=== PATIENT | female | born 1970 | race Caucasian/White ===

== ENCOUNTER 2017-08-10 11:00 | Outpatient (RCR) | payer MEDICARE, SELFPAY ==
--- NOTE | 2017-08-10 15:56 | COCO.VHC ---
Consult Notes: Cecilia came in to talk about health benefits. She has Medicare and she has VPharm 2, but during a recent Medicaid renewal her Cale lost his Medicaid 07/04/17. Cecilia gets $888.00 is social security disability and her Cale works at [employer] averaging about $425.00 gross income per week. She said Cale is not eligible for health insurance at [employer] and he is likely going to lose his job when the [facility] restaurant closes in October. I called [employer] and spoke with Cale. He confirmed that Cale is eligible for APTC of $444.22, VPA of $27.93 with a cost share reduction level 1, making him eligible for the [place] [address] plans. SR # [id number]. Cecilia took the information with her to review with her and she will follow up with me once he chooses a plan. We also discussed outstanding bills for Cecilia and I gave her patient assistance applications for several of her healthcare providers. She will follow up with me about that as well.
--- NOTE | 2017-08-10 16:16 | PDOC.VHC_ITS ---
Consult Notes: Cecilia came in to talk about health benefits. She has Medicare and she has VPharm 2, but during a recent Medicaid renewal her Cale lost his Medicaid 07/04/17. Cecilia gets $888.00 is social security disability and her Cale works at [employer] averaging about $425.00 gross income per week. 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 I called [employer] and spoke with Cale. He confirmed that Cale is eligible for APTC of $444.22, VPA of $27.93 with a cost share reduction level 1 , making him eligible for the [place] [address] plans. SR # [id number]. Cecilia took the information with her to review with her and she will follow up with me once he chooses a plan. We also discussed outstanding bills for Cecilia and I gave her patient assistance applications for several of her healthcare providers. She will follow up with me about that as well.
--- NOTE | 2017-08-10 16:20 | COCO.VHC ---
Follow up/Problem - Follow up/Problem Issue Follow Up/Problem: Follow Up (Consult follow up from 07/27/17) - Notes SR #:: [id number] [employer] [employer] REP Name:: Ada Notes:: Cecilia came in to enroll her in the [employer] [place] [employer] 94 plan. Please see Cale Dumont's chart for details.
== END 2017-12-04 11:00 ==
LOC: COCO 11:00
PROVIDERS: PCP Nurse Practitioner Family; Visit Provider Nurse Practitioner Family
DX: R69 Illness, unspecified (principal)

== ENCOUNTER → 2017-11-04 00:10 | Outpatient (CLI) | payer MEDICARE, SELFPAY ==
--- NOTE | 2017-11-04 14:23 | DI.REPORT_ITS ---
SYMPTOMS/DIAGNOSIS: F/U ABNORMAL MAMMO, INDETERMINATE BILATERAL NEW BREAST MASSES BILATERAL BREAST ULTRASOUND AND BILATERAL ADDITIONAL VIEWS: Additional images are interpreted according to the usual protocol including tomosynthesis and 2D imaging. ADDITIONAL VIEWS OF THE RIGHT BREAST:AND RIGHT BREAST ULTRASOUND: Additional views of the right breast again show a well-circumscribed nodule in the retroareolar region of the right breast. No associated microcalcifications are seen. A right breast ultrasound was performed. There are several well- circumscribed anechoic lesions seen within the right breast. There is a 1.1 cm lesion seen at the 12 o'clock position of the right breast, which appears to correspond to the findings seen on the mammogram. There is a well- circumscribed round, hypoechoic nodule at the 11 o'clock position of the right breast 4 cm from the nipple without internal blood flow, posterior acoustic enhancement or shadowing. It is most suggestive of a benign lesion. This may represent a fibroadenoma. No suspicious cystic or solid masses are seen. IMPRESSION: No definite evidence for malignancy. Yearly mammography is recommended. Category 2. MQSA ASSESSMENT OF FINDINGS: Negative with benign findings. Category 2. Patient will receive a letter notifying them of these results. ADDITIONAL VIEWS OF THE LEFT BREAST AND LEFT BREAST ULTRASOUND: Additional views of the left breast again show well-circumscribed nodules in the upper outer quadrant. A left breast ultrasound was performed. There are several well-circumscribed anechoic lesions in the upper outer quadrant of the left breast. No posterior acoustic shadowing is seen. No internal blood flow is present. The largest lesion is at the 12 o'clock position 1 cm from the nipple and measures 0.8 cm. These appear to correspond to the findings seen mammographically. IMPRESSION: No definite evidence for malignancy. A six-month follow-up left mammogram and left breast ultrasound are requested for reevaluation. Category 3. Breast density B. MQSA ASSESSMENT OF FINDINGS: Probably benign. Six month follow-up recommended. Category 3. Patient will receive a letter notifying them of these results. BI-RADS category B. There are scattered areas of fibroglandular density. The findings were discussed with the patient on the date of the examination.
== END ==
PROVIDERS: PCP Nurse Practitioner; Visit Provider Nurse Practitioner Family
DX: Z12.31 Encounter for screening mammogram for malignant neoplasm of breast (principal); R92.8 Other abnormal and inconclusive findings on diagnostic imaging of breast; N60.11 Diffuse cystic mastopathy of right breast; N60.12 Diffuse cystic mastopathy of left breast
CPT/HCPCS: 76642 ×2; 77063; 77067

== ENCOUNTER 2017-11-06 11:28 | Outpatient (RCR) | payer MEDICARE, SELFPAY | END 2017-12-04 23:59 | disposition home or self-care (01) | LOC: CR 11:28 | PROVIDERS: PCP Nurse Practitioner; Visit Provider Family Medicine | DX: Z95.2 Presence of prosthetic heart valve (principal); Z51.89 Encounter for other specified aftercare | CPT/HCPCS: S9472 ==

== ENCOUNTER 2017-12-02 08:27 | Outpatient (CLI) | payer MEDICARE, SELFPAY ==
[2017-12-02 08:52] LABS: Prothrombin Time 38.1 sec (9.3-10.8)
[2017-12-02 09:08] LABS: INR 4.1 (1.0-3.5)
== END 2017-12-02 08:28 ==
PROVIDERS: PCP Nurse Practitioner; Visit Provider Nurse Practitioner
DX: Z79.01 Long term (current) use of anticoagulants (principal); I48.92 Unspecified atrial flutter
CPT/HCPCS: 36415; 85610

== ENCOUNTER 2017-12-17 08:24 | Outpatient (CLI) | payer MEDICARE, SELFPAY ==
[2017-12-17 10:02] LABS: INR 1.9 (1.0-3.5); Prothrombin Time 18.3 sec (9.3-10.8)
== END 2017-12-17 08:44 ==
PROVIDERS: PCP Nurse Practitioner; Visit Provider Nurse Practitioner
DX: I48.92 Unspecified atrial flutter (principal); Z79.01 Long term (current) use of anticoagulants
CPT/HCPCS: 36415; 85610

== ENCOUNTER → 2017-12-21 12:55 | Outpatient (BNVA) | payer MEDICARE, SELFPAY | PROVIDERS: PCP Nurse Practitioner; Visit Provider Surgery | DX: K21.9 Gastro-esophageal reflux disease without esophagitis (principal) | CPT/HCPCS: 99203 ==

== ENCOUNTER 2017-12-22 08:16 | Outpatient (CLI) | payer MEDICARE, SELFPAY ==
[2017-12-22 08:51] LABS: INR 2.3 (1.0-3.5); Prothrombin Time 21.4 sec (9.3-10.8)
== END 2017-12-22 08:36 ==
PROVIDERS: PCP Nurse Practitioner; Visit Provider Nurse Practitioner
DX: I48.91 Unspecified atrial fibrillation (principal); Z79.01 Long term (current) use of anticoagulants
CPT/HCPCS: 36415; 85610

== ENCOUNTER 2017-12-29 07:23 | Day surgery (SDC) | payer MEDICARE, SELFPAY ==
[2017-12-29 07:46] VITALS: BP 104/64; PULSE 89; RESP 16; TEMP 35.8; O2SAT 96
[2017-12-29] MEDS: Lactated Ringers 1,000 ML 30 ML IV (08:15)
[2017-12-29 09:27] LABS: INR 1.4 (1.0-3.5)
[2017-12-29 09:33] LABS: Prothrombin Time 13.8 sec (9.3-10.8)
--- NOTE | 2017-12-29 09:35 | W.PM.DSUDISC ---
Discharge Plan Disposition Patient Disposition: HOME Condition: Good Discharge Details Reason For Visit: Upper Endoscopy Attending Provider: Bhanu Fofana Primary Care Provider: Mckenna Genao Home Meds and New Rx's Prescriptions: Continue enoxaparin [Lovenox] 120 mg/0.8 mL syringe 120 mg SC DAILY Qty: 5 RF: 3 levothyroxine 25 MCG tablet 25 mcg PO DAILY Qty: 60 RF: 1 warfarin [Coumadin] 1 MG tablet 5 - 7.5 mg PO DAILY RF: 0 cetirizine 10 MG tablet 10 mg PO PRN PRNRF: 0 cyproheptadine 4 MG tablet 1 - 2 tab PO HS PRNRF: 0 hydroxychloroquine 200 MG tablet 200 mg PO BID RF: 0 wgnadbqgwnly-Ly-ohok-minerals [Multiple Vitamin, Womens] Tablet 1 ea PO DAILY RF: 0 lisinopril 10 MG tablet 10 mg PO DAILY RF: 0 omeprazole 40 MG capsule,delayed release(DR/EC) 40 mg PO BID RF: 0 Discharge Instructions Instructions: Upper Endoscopy (DC) Additional Instructions: Start coumadin tonight Activity:: Activity as Tolerated Diet:: As Tolerated Discharge Orders Discharge Orders: Discharge Order (Routine); Ordered 12/29/17 Ordered By: Bhanu Fofana DS: Diagnosis Discharge Diagnosis (1) GERD (gastroesophageal reflux disease): Status: Acute
--- NOTE | 2017-12-29 09:37 | W.PM.OP ---
Date of service: 12/29/17 Time of Service: 09:37 Operative Note DATE OF PROCEDURE: 12/29/17 PRE-OP DIAGNOSIS: Gastroesophageal Reflux disease PROCEDURE: EGD with Biopsy SURGEON: Bhanu Fofana ANESTHESIA: MAC (Douglas Delarosa CRNA; ASA 2, Mallampati II) ESTIMATED BLOOD LOSS: 1 PATHOLOGY: other (Gastric Antral Biopsy) COMPLICATIONS: None Patient was transported to: same day Patient's condition: stable Implants: Laboratory: Prothrombin time 13.8s INR 1.4 Indications: 47-year-old woman referred for reflux symptoms that she started after her aortic valve replacement surgery. She had no symptoms prior to surgery. She has intermittent episodes of heartburn with occasional vomiting mostly bile. This seems unrelated to food intake. It is worse with laying flat. She has been seen by her letterpress setter who does not believe this is cardiac in nature. Recommended that she have an upper endoscopy to assess for gastritis, occult malignancy, esophagitis, PUD, etc. The procedure was reviewed with her, and the risks discussed. All her questions were answered to her satisfaction Findings: On examining the upper gastrointestinal tract from the oropharynx to the third portion of duodenum, there was inflammation noted at the gastric antrum, and question of paraesophageal versus hiatal hernia. No other abnormalities are noted. Procedure Description: Patient brought to the procedure room. An appropriate timeout was taken reviewing the patient's identification allergies medications procedure. For telemetry, end-tidal CO2, O2 saturation, and blood pressure were applied. A bite block was placed and sedation was titrated for by the GEOTECHNICAL ENGINEER, with the patient in the left lateral decubitus position. An Olympus variable stiffness endoscope was advanced from the oropharynx to the third portion of the duodenum without difficulty. Scope was then withdrawn in circumferential manner back to the oropharynx. In doing so, the duodenum appeared grossly normal; scope was drawn into the gastric antrum where the tissue appeared inflamed but there is no angelito ulcerations. Multiple biopsies were taken to confirm gross pathology findings. The scope was then retroflexed in the stomach: the lesser and greater curvatures, anterior, posterior surfaces, and fundus appeared grossly normal on the mucosal surfaces. Though in examining the shape of the upper stomach it appeared to be indented, suggesting a large hiatal hernia or paraesophageal hernia. The scope was then withdrawn to the GE junction which are measured at 38 cm. Z line was at 38 cm and regular. I withdrew the scope through the remainder of the esophagus all of which appeared normal. The scope was then withdrawn terminating the upper endoscopy there are no complications during the case the patient tolerated very well. Plan: We will await pathology before making further recommendations, in the interim we will start Carafate. Will obtain multiple views chest and abdominal films to evaluate for hiatal versus paraesophageal hernia.
--- NOTE | 2017-12-29 09:48 | STOM_PTH ---
PATIENT: Cecilia Dumont LOC: [facility] U#:[id number] AGE/SX: 47/F ROOM: RE12/29/[address]: Bhanu Fofana DO : 1970 BED: DIS: 12/29/2017 SPEC #: [id number] RECD: 12/29/17 12:57 STATUS: ANAND RE #: [id number] CORBY: 12/29/17 09:[address]: Bhanu Fofana DEPT: Surgical Specimen RECD BY: Yusra Aguilera ENTERED: 12/29/17 12:58 SP TYPE: STOMACH OTHR DR: Mckenna Genao Tissues: 1 - STOMACH BIOPSY Procedures: GROSS AND MICRO LEVEL 4 Comments: [id number]
[2017-12-29 10:45] VITALS: BP 106/71; PULSE 64; RESP 16; TEMP 36; O2SAT 97
--- NOTE | 2017-12-29 10:45 | DI.RAD_ITS ---
SYMPTOM/DIAGNOSIS: EPIGASTRIC PAIN FRONTAL AND LATERAL CHEST: Comparison is made with 09/05/17. Heart size and pulmonary vasculature are within normal limits. There is again seen an aortic valve prosthesis. The lungs are clear and well expanded. No effusions or pneumothoraces are identified. The bones are intact. IMPRESSION: No acute pulmonary process. FLAT AND UPRIGHT ABDOMEN: The visualized lung bases are clear. There is a large amount of stool seen throughout the colon consistent with constipation. No bowel obstruction, organomegaly or pneumoperitoneum is seen. Mild degenerative changes are seen in the spine. IMPRESSION: Findings of large amount of retained stool suggesting constipation.
== END 2017-12-29 11:08 | disposition home or self-care (01) ==
PROVIDERS: PCP Nurse Practitioner; Visit Provider Surgery
PROC: 0DJ68ZZ Inspection of Stomach, Via Natural or Artificial Opening Endoscopic (ICD-10-PCS; CPT 43235; principal; 2017-12-29 08:45)
DX: K21.9 Gastro-esophageal reflux disease without esophagitis (principal); K31.89 Other diseases of stomach and duodenum; R93.3 Abnormal findings on diagnostic imaging of other parts of digestive tract; Z98.890 Other specified postprocedural states
CPT/HCPCS: 43239; 36415; 88305; 71046; 74019; 85610

== ENCOUNTER → 2017-12-29 07:32 | Outpatient (BNVA) | payer MEDICARE, SELFPAY | PROVIDERS: PCP Nurse Practitioner; Referring Provider Nurse Practitioner; Visit Provider Surgery | DX: R69 Illness, unspecified (principal) ==

== ENCOUNTER 2017-12-31 10:16 | Outpatient (CLI) | payer MEDICARE, SELFPAY ==
[2017-12-31 10:44] LABS: INR 1.4 (1.0-3.5); Prothrombin Time 13.1 sec (9.3-10.8)
== END 2017-12-31 10:36 ==
PROVIDERS: PCP Nurse Practitioner; Visit Provider Nurse Practitioner
DX: I48.92 Unspecified atrial flutter (principal); Z79.01 Long term (current) use of anticoagulants
CPT/HCPCS: 36415; 85610

== ENCOUNTER 2018-01-04 11:02 | Outpatient (CLI) | payer MEDICARE, SELFPAY ==
[2018-01-04 11:34] LABS: INR 1.9 (1.0-3.5); Prothrombin Time 18.3 sec (9.3-10.8)
== END 2018-01-04 11:22 ==
PROVIDERS: PCP Nurse Practitioner; Visit Provider Nurse Practitioner
DX: I48.92 Unspecified atrial flutter (principal); Z79.01 Long term (current) use of anticoagulants
CPT/HCPCS: 36415; 85610

== ENCOUNTER 2018-01-08 08:26 | Outpatient (CLI) | payer MEDICARE, SELFPAY ==
[2018-01-08 09:12] LABS: INR 2.1 (1.0-3.5); Prothrombin Time 20.1 sec (9.3-10.8)
== END 2018-01-08 08:46 ==
PROVIDERS: PCP Nurse Practitioner; Visit Provider Nurse Practitioner
DX: I48.91 Unspecified atrial fibrillation (principal); Z79.01 Long term (current) use of anticoagulants
CPT/HCPCS: 36415; 85610

== ENCOUNTER 2018-01-11 12:47 | Outpatient (CLI) | payer MEDICARE, SELFPAY ==
[2018-01-11 13:27] LABS: INR 2.5 (1.0-3.5); Prothrombin Time 23.9 sec (9.3-10.8)
== END 2018-01-11 13:07 ==
PROVIDERS: PCP Nurse Practitioner; Visit Provider Nurse Practitioner
DX: I48.92 Unspecified atrial flutter (principal); Z79.01 Long term (current) use of anticoagulants
CPT/HCPCS: 36415; 85610

== ENCOUNTER 2018-01-21 01:39 | Outpatient (CLI) | payer MEDICARE, SELFPAY ==
[2018-01-21] MEDS: Barium Sulfate 60% W/V 355 ML BTL PO (10:01)
--- NOTE | 2018-01-21 10:03 | DI.RAD_ITS ---
SYMPTOM/DIAGNOSIS: BREAKTHROUGH GERD, K21.9, ? HIATAL HERNIA BARIUM SWALLOW AND UPPER GI: Fluoroscopy Time: 48 seconds The patient swallowed barium without difficulty. There is no evident abnormality involving the della or hypopharynx or esophagus. The patient is status post median sternotomy. The upper GI series reveals a normal stomach. The duodenal bulb and loop and proximal small bowel appear unremarkable. SUMMARY: Normal barium swallow and upper GI series.
== END 2018-01-21 01:59 ==
PROVIDERS: PCP Nurse Practitioner; Visit Provider Surgery
DX: K21.9 Gastro-esophageal reflux disease without esophagitis (principal); Z98.890 Other specified postprocedural states
CPT/HCPCS: 74220; 74247; J3490

== ENCOUNTER 2018-01-21 10:02 | Outpatient (CLI) | payer MEDICARE, SELFPAY | END 2018-01-21 10:22 | PROVIDERS: PCP Nurse Practitioner; Visit Provider Nurse Practitioner | CPT/HCPCS: 36415; 85610 ==

== ENCOUNTER 2018-02-01 08:23 | Outpatient (CLI) | payer MEDICARE, SELFPAY ==
[2018-02-01 09:00] LABS: INR 2.9 (1.0-3.5); Prothrombin Time 27.1 sec (9.3-10.8)
== END 2018-02-01 08:43 ==
PROVIDERS: PCP Nurse Practitioner; Visit Provider Nurse Practitioner
DX: I48.92 Unspecified atrial flutter (principal); Z79.01 Long term (current) use of anticoagulants
CPT/HCPCS: 36415; 85610

== ENCOUNTER 2018-02-05 09:38 | Outpatient (CLI) | payer MEDICARE, SELFPAY ==
[2018-02-05 10:16] LABS: Abs Immature Grans 0.01 k/cumm (0.0-0.09); Absolute Basophil Count 0.04 k/cumm (0.0-0.2); Absolute Eosinophil Count 0.27 k/cumm (0.0-0.7); Absolute Lymphocyte Count 1.22 k/cumm (1.2-3.4); Absolute Monocyte Count 0.54 k/cumm (0.11-0.7); Absolute Neutrophil Count 2.83 k/cumm (1.2-6.7); Basophils % 0.8; Eosinophils % 5.5; HCT 36.4 % (36.0-46.0); HGB 12.6 g/dL (12.0-15.5); Immature Grans % 0.2; Lymphocytes % 24.8; Mean Corp. HGB Concentration 34.6 g/dL (32.0-36.0); Mean Corpuscular Hemoglobin 32.5 pg (27.0-33.0); Mean Corpuscular Volume 93.8 fL (80-95); Mean Platelet Volume 10.4 fL (8.0-11.0); Neutrophils % 57.7; Platelet Count 237 x1000/uL (130-400); RBC 3.88 m/cumm (4.00-5.20); RBC Distribution Width 12.9 % (11.7-14.6); White Blood Cell Count 4.91 k/cumm (4.4-10.8)
[2018-02-05 11:04] LABS: ALT 25 U/L (12-78); AST 24 U/L (15-37); Albumin 3.4 g/dL (3.4-5.0); Alkaline Phosphatase 140 U/L (46-116); Anion Gap 9.1 mmol/L (3-11); BUN 14 mg/dL (7-18); Bilirubin, Total 0.3 mg/dL (0.2-1.0); C-Reactive Protein 0.31 mg/dL (0.0-0.3); CO2 27.9 mmol/L (21.0-32.0); CREATININE 0.84 mg/dL (0.55-1.02); Chloride 104 mmol/L (98-107); Glucose 84 mg/dL (70-100); Potassium 4.1 mmol/L (3.5-5.1); Sodium 141 mmol/L (136-145)
[2018-02-05 13:48] LABS: ESR 32 MM/HR (0-20)
[2018-02-08 10:51] LABS: C3 Complement 132 mg/dL (81-157); C4 Complement 31 mg/dL (13-39)
== END 2018-02-05 09:58 ==
PROVIDERS: PCP Nurse Practitioner; Visit Provider Internal Medicine Rheumatology
DX: M32.9 Systemic lupus erythematosus, unspecified (principal); Z79.899 Other long term (current) drug therapy
CPT/HCPCS: 36415; 80053; 85652; 85025; 86140; 86160

== ENCOUNTER 2018-02-15 08:44 | Outpatient (CLI) | payer MEDICARE, SELFPAY | END 2018-02-15 09:04 | LOC: RT 08:45 | PROVIDERS: PCP Nurse Practitioner; Visit Provider Internal Medicine Interventional Cardiology | DX: I42.9 Cardiomyopathy, unspecified (principal); Z95.2 Presence of prosthetic heart valve; R00.2 Palpitations; G47.33 Obstructive sleep apnea (adult) (pediatric); I11.0 Hypertensive heart disease with heart failure; I50.9 Heart failure, unspecified; K21.9 Gastro-esophageal reflux disease without esophagitis; R06.02 Shortness of breath | CPT/HCPCS: 93005; 93010; 99213 ==

== ENCOUNTER 2018-02-26 13:37 | Outpatient (CLI) | payer MEDICARE, SELFPAY ==
[2018-02-26 14:15] LABS: Abs Immature Grans 0.01 k/cumm (0.0-0.09); Absolute Basophil Count 0.04 k/cumm (0.0-0.2); Absolute Eosinophil Count 0.17 k/cumm (0.0-0.7); Absolute Lymphocyte Count 1.47 k/cumm (1.2-3.4); Absolute Monocyte Count 0.49 k/cumm (0.11-0.7); Absolute Neutrophil Count 2.79 k/cumm (1.2-6.7); Basophils % 0.8; Eosinophils % 3.4; HCT 37.4 % (36.0-46.0); HGB 12.9 g/dL (12.0-15.5); Immature Grans % 0.2; Lymphocytes % 29.6; Mean Corp. HGB Concentration 34.5 g/dL (32.0-36.0); Mean Corpuscular Hemoglobin 31.9 pg (27.0-33.0); Mean Corpuscular Volume 92.6 fL (80-95); Mean Platelet Volume 10.5 fL (8.0-11.0); Monocytes % 9.9; Neutrophils % 56.1; Platelet Count 235 x1000/uL (130-400); RBC 4.04 m/cumm (4.00-5.20); RBC Distribution Width 13.1 % (11.7-14.6); White Blood Cell Count 4.97 k/cumm (4.4-10.8)
[2018-02-26 14:21] LABS: INR 3.1 (1.0-3.5); Prothrombin Time 29.2 sec (9.3-10.8)
[2018-02-26 14:44] LABS: ALT 20 U/L (12-78); AST 23 U/L (15-37); Albumin 3.5 g/dL (3.4-5.0); Alkaline Phosphatase 132 U/L (46-116); Anion Gap 8.4 mmol/L (3-11); BUN 14 mg/dL (7-18); Bilirubin, Total 0.3 mg/dL (0.2-1.0); C-Reactive Protein 0.19 mg/dL (0.0-0.3); CO2 28.6 mmol/L (21.0-32.0); CREATININE 0.78 mg/dL (0.55-1.02); Calcium 8.9 mg/dL (8.5-10.1); Chloride 105 mmol/L (98-107); Glucose 81 mg/dL (70-100); Potassium 3.9 mmol/L (3.5-5.1); Sodium 142 mmol/L (136-145); Total Protein 7.3 g/dL (6.4-8.2)
[2018-02-26 15:26] LABS: ESR 29 MM/HR (0-20)
[2018-03-01 11:02] LABS: C3 Complement 130 mg/dL (81-157); C4 Complement 29 mg/dL (13-39)
== END 2018-02-26 13:57 ==
PROVIDERS: PCP Nurse Practitioner; Visit Provider Nurse Practitioner
DX: M32.9 Systemic lupus erythematosus, unspecified (principal); Z79.899 Other long term (current) drug therapy; I48.92 Unspecified atrial flutter; Z79.01 Long term (current) use of anticoagulants
CPT/HCPCS: 36415; 80053; 85652; 85025; 85610; 86140; 86160

== ENCOUNTER 2018-04-13 13:45 | Outpatient (CLI) | payer MEDICARE, SELFPAY ==
[2018-04-13 15:02] LABS: INR 2.7 (0.9-1.1); Prothrombin Time 26.9 sec (9.3-11.0)
== END 2018-04-13 14:05 ==
PROVIDERS: PCP Nurse Practitioner; Visit Provider Nurse Practitioner
DX: I48.92 Unspecified atrial flutter (principal); Z79.01 Long term (current) use of anticoagulants
CPT/HCPCS: 36415; 85610

== ENCOUNTER 2018-05-12 01:22 | Outpatient (CLI) | payer MEDICARE, SELFPAY ==
--- NOTE | 2018-05-12 10:15 | DI.COMBO_ITS ---
SYMPTOM/DIAGNOSIS: F/U ABNL MAMMO, 6 MO. F/U, R92.8 MAMMOGRAMS AND LEFT BREAST ULTRASOUND: Mammograms were interpreted according to the usual protocol including computer analysis with CAD system, tomosynthesis and C view imaging. A 6 month follow up mammogram and ultrasound of the left breast was requested. A right mammogram was inadvertently performed. The breasts are composed of scattered fibroglandular densities. There are stable bilateral breast nodules. No suspicious masses or suspicious microcalcifications are seen. Left breast ultrasound shows no change in a 10 mm., circumscribed nodule in the 12 o'clock position 1 cm. from the nipple. An additional 4 mm. hypoechoic nodule is seen near the nipple which appears smaller than on the previous exam. No suspicious abnormalities are seen. IMPRESSION: Category 2, negative mammogram and left breast ultrasound with benign findings. Yearly screening mammography is recommended. SA ASSESSMENT OF FINDINGS: Negative with benign findings. Category 2. Patient will receive a letter notifying them of these results. BI-RADS category B. There are scattered areas of fibroglandular density.
== END 2018-05-12 01:42 ==
PROVIDERS: PCP Nurse Practitioner; Visit Provider Nurse Practitioner Family
DX: Z12.31 Encounter for screening mammogram for malignant neoplasm of breast (principal); R92.8 Other abnormal and inconclusive findings on diagnostic imaging of breast; N60.81 Other benign mammary dysplasias of right breast; N60.82 Other benign mammary dysplasias of left breast
CPT/HCPCS: 76642; 77061; 77065; G0279

== ENCOUNTER 2018-05-12 11:21 | Outpatient (CLI) | payer MEDICARE, SELFPAY ==
[2018-05-12 11:57] LABS: INR 2.3 (0.9-1.1); Prothrombin Time 22.9 sec (9.3-11.0)
== END 2018-05-12 11:41 ==
LOC: NCHCO 11:22
PROVIDERS: PCP Nurse Practitioner; Visit Provider Nurse Practitioner
DX: I48.92 Unspecified atrial flutter (principal); Z79.01 Long term (current) use of anticoagulants
CPT/HCPCS: 36415; 76642; 77061; 77065; 85610; G0279

== ENCOUNTER 2018-06-09 11:46 | Outpatient (CLI) | payer MEDICARE, SELFPAY ==
[2018-06-09 12:30] LABS: INR 2.1 (0.9-1.1); Prothrombin Time 21.5 sec (9.3-11.0)
[2018-06-09 13:49] LABS: Absolute Basophil Count 0.02 k/cumm (0.0-0.2); Absolute Eosinophil Count 0.09 k/cumm (0.0-0.7); Absolute Lymphocyte Count 1.04 k/cumm (1.2-3.4); Absolute Monocyte Count 0.38 k/cumm (0.11-0.7); Absolute Neutrophil Count 2.65 k/cumm (1.2-6.7); Basophils % 0.5; Eosinophils % 2.2; HGB 12.9 g/dL (12.0-15.5); Lymphocytes % 24.9; Mean Corp. HGB Concentration 34.9 g/dL (32.0-36.0); Mean Corpuscular Hemoglobin 32.4 pg (27.0-33.0); Mean Platelet Volume 11.1 fL (8.0-11.0); Monocytes % 9.1; Neutrophils % 63.3; Platelet Count 232 x1000/uL (130-400); RBC 3.98 m/cumm (4.00-5.20); RBC Distribution Width 12.8 % (11.7-14.6); White Blood Cell Count 4.18 k/cumm (4.4-10.8)
[2018-06-09 13:58] LABS: ALT 12 U/L (12-78); AST 20 U/L (15-37); Albumin 3.6 g/dL (3.4-5.0); Alkaline Phosphatase 129 U/L (46-116); BUN 12 mg/dL (7-18); Bilirubin, Total 0.4 mg/dL (0.2-1.0); C-Reactive Protein 0.09 mg/dL (0.0-0.3); CREATININE 0.83 mg/dL (0.55-1.02); Calcium 8.7 mg/dL (8.5-10.1); Chloride 105 mmol/L (98-107); Glucose 102 mg/dL (70-100); Potassium 3.7 mmol/L (3.5-5.1); Sodium 142 mmol/L (136-145); Total Protein 7.4 g/dL (6.4-8.2)
[2018-06-09 15:15] LABS: ESR 28 MM/HR (0-20)
== END 2018-06-09 12:06 ==
PROVIDERS: Internal Medicine Rheumatology; PCP Nurse Practitioner; Visit Provider Nurse Practitioner
DX: I48.92 Unspecified atrial flutter (principal); Z79.01 Long term (current) use of anticoagulants; M32.9 Systemic lupus erythematosus, unspecified; D68.61 Antiphospholipid syndrome; Z79.899 Other long term (current) drug therapy
CPT/HCPCS: 36415; 80053; 85652; 85025; 85610; 86140

== ENCOUNTER 2018-07-26 11:11 | Outpatient (CLI) | payer MEDICARE, SELFPAY ==
[2018-07-26 12:13] LABS: INR 2.7 (0.9-1.1); Prothrombin Time 27.1 sec (9.3-11.0)
== END 2018-07-26 11:31 ==
PROVIDERS: PCP Nurse Practitioner; Visit Provider Nurse Practitioner
DX: I48.92 Unspecified atrial flutter (principal); Z79.01 Long term (current) use of anticoagulants
CPT/HCPCS: 36415; 85610

== ENCOUNTER 2018-09-14 12:38 | Outpatient (CLI) | payer MEDICARE, SELFPAY ==
[2018-09-14 13:11] LABS: INR 2.6 (0.9-1.1); Prothrombin Time 25.8 sec (9.3-11.0)
== END 2018-09-14 12:58 ==
PROVIDERS: PCP Nurse Practitioner; Visit Provider Nurse Practitioner
DX: I48.92 Unspecified atrial flutter (principal); Z79.01 Long term (current) use of anticoagulants
CPT/HCPCS: 36415; 85610

== ENCOUNTER 2018-09-16 11:16 | Outpatient (CLI) | payer MEDICARE, SELFPAY ==
--- NOTE | 2018-09-16 11:00 | DI.RAD_ITS ---
SYMPTOM/DIAGNOSIS: RT KNEE JPAIN, M25.561 RIGHT KNEE: The patient is status post TKA The prosthesis is in good position. Surrounding bone intact with no interval change when compared with prior images.
== END 2018-09-16 11:36 ==
PROVIDERS: PCP Nurse Practitioner; Visit Provider Nurse Practitioner
DX: M25.561 Pain in right knee (principal); Z96.651 Presence of right artificial knee joint
CPT/HCPCS: 73562

== ENCOUNTER 2018-09-17 17:55 | Emergency (ER) | payer MEDICARE, SELFPAY ==
[2018-09-17 17:59] VITALS: BP 159/98; PULSE 94; RESP 20; TEMP 36.8; O2SAT 98
--- NOTE | 2018-09-17 18:15 | ED.GENADUL_ITS ---
Discharge Plan Disposition Patient Disposition: HOME Condition: Improving Discharge Details Chief Complaint: Cellulitis Clinical Impression: Acute paronychia of right thumb Primary Care Provider: Mckenna Genao ED Provider: Dallas Peterson Home Meds and New Rx's Prescriptions: New cephalexin 500 mg capsule 500 mg PO TID 5 Days Qty: 15 RF: 0 No Action enoxaparin [Lovenox] 120 mg/0.8 mL syringe 120 mg SC DAILY Qty: 5 RF: 3 aspirin 81 mg tablet,chewable 81 mg PO DAILY RF: 0 levothyroxine 25 MCG tablet 25 mcg PO DAILY Qty: 60 RF: 1 warfarin [Coumadin] 1 MG tablet 5 - 7.5 mg PO DAILY RF: 0 cetirizine 10 MG tablet 10 mg PO PRN PRNRF: 0 cyproheptadine 4 MG tablet 1 - 2 tab PO HS PRNRF: 0 hydroxychloroquine 200 MG tablet 200 mg PO BID RF: 0 Multiple Vitamin, Womens Tablet 1 ea PO DAILY RF: 0 methotrexate sodium 2.5 mg Tablet RF: 0 lisinopril 10 MG tablet 10 mg PO DAILY RF: 0 omeprazole 40 MG capsule,delayed release(DR/EC) 40 mg PO BID RF: 0 Discharge Instructions Instructions: Paronychia (ED) Additional Instructions: Please continue warm soaks 2-3 times daily, then pat dry, applied dressing. As we discussed, you should have an INR check on Thursday. Take Keflex as prescribed, next dose tomorrow morning. Return for fever, chills, increasing redness, or any other acute concerns. Tylenol if needed for pain Medical Decision Making 48-year-old female with a history of lupus, chronically anticoagulated on warfarin, presents with right thumb paronychia. Digital block performed, patient anesthetized, stab incision made from the nailbed side with release of small amount of purulent fluid which was sent for culture. Wound dressed. Discussed with patient options for management given her lupus, will we will place on 5 days of Keflex which will affect her warfarin at least. She states that she is able to obtain an INR this Thursday. Cultures pending. She is stable for discharge at this time HPI General Mode of arrival: ambulatory . Date/Time Provider Initiated Documentation: 09/17/18 17:56 . Limitations to Documentation: no limitations . Information obtained by: patient and family . History of Present Illness 48 year old F presents to the emergency department with the chief complaint of Right thumb abscess, described as moderate, Quality is described as dull and constant, and is localized to the right and upper extremity. Patient reports no radiation. Patient started experiencing this day(s) and it has been constant. No relieving factors improve symptom(s), No exacerbating factors reported . Patient notes denies fever/chills. Patient did receive the following treatments prior to arrival, none Related Data Home Medications Medication Instructions Recorded Confirmed warfarin [Coumadin] 5 - 7.5 mg PO DAILY 08/18/12 09/17/18 cetirizine 10 mg PO PRN PRN 02/27/16 09/17/18 cyproheptadine 1 - 2 tab PO HS PRN 02/27/16 09/17/18 hydroxychloroquine 200 mg PO BID 02/27/16 09/17/18 levothyroxine 25 mcg PO DAILY #60 tab 03/05/17 09/17/18 lisinopril 10 mg PO DAILY 05/17/17 09/17/18 omeprazole 40 mg PO BID 09/05/17 09/17/18 enoxaparin 120 mg/0.8 mL 120 mg SC DAILY #5 syringe 12/21/17 09/17/18 subcutaneous syringe Multiple Vitamin, Womens 1 ea PO DAILY 12/25/17 09/17/18 aspirin 81 mg chewable tablet 81 mg PO DAILY 02/17/18 09/17/18 cephalexin 500 mg PO TID 5 Days #15 cap 09/17/18 methotrexate sodium 09/17/18 Previous Rx's Medication Instructions Recorded levothyroxine 25 mcg PO DAILY #60 tab 03/05/17 enoxaparin 120 mg/0.8 mL 120 mg SC DAILY #5 syringe 12/21/17 subcutaneous syringe cephalexin 500 mg PO TID 5 Days #15 cap 09/17/18 Allergies Allergy/AdvReac Type Severity Reaction Status Date / Time tramadol AdvReac Intermediate GI Upset Verified 02/15/18 13:57 General Stated Complaint: Cellulitis RACHELLE: 3 Review of Systems Review of Systems No systemic symptoms. Taking her medications. Sick systems reviewed and otherwise neg [facility] Medical History Hiatal hernia (Chronic) Allergic rhinitis Antiphospholipid antibody syndrome Aortic insufficiency CHF (congestive heart failure) Cardiomyopathy Combined abdominal and pelvic pain Depression Depressive disorder Diverticulosis of colon Fatty infiltration of liver GERD (gastroesophageal reflux disease) Hyperlipidemia Hypertension Insomnia Late effects of CVA (cerebrovascular accident) Lupus Migraine Migraine Sleep apnea Surgical History History of esophagogastroduodenoscopy (EGD) (Chronic 12/29/17) Dilation and curettage Endometrial Ablation H/O aortic valve replacement Replacement of total knee joint Family History Mother Osteoporosis Father Hyperlipidemia Grandmother Heart disease Social History Smoking/Tobacco Use Status: Former Tobacco Use Alcohol Intake: current Alcohol Intake frequency: holidays/special occasions only Drug use: Never Substance use type: does not use Do you feel safe at home: Yes Do you feel safe in your relationship?: Yes Exam Narrative Exam Narrative: GEN: awake, alert, oriented 3. Pleasant, well groomed, interactive. HEAD: Normocephalic, atraumatic ENT: Mucous membranes moist, oropharynx unremarkable, External ear exam unremarkable EYES: PERRL, EOMI NECK: Full ROM, no RONALD, no menigismus CHEST/RESP: Nontender, clear to auscultation bilateral, no wheeze/rhonchi/rales CARDIOVASCULAR: RRR, mechanical click per. 2+ Rad pulse bilateral ABDOMEN: Soft, nontender, no mass. +Bowel sounds EXT: Full ROM, no edema, no rash. The dorsal radial aspect of the right thumb reveals a paronychia with erythema and tender Neuro: Grossly normal neurologic exam, conversant, interactive. Psych: Speech fluent, thoughts congruent, affect normal Course Vital Signs Temperature 36.8 C 09/17/18 17:59 Pulse 94 H 09/17/18 17:59 Respiratory Rate 20 09/17/18 17:59 Blood Pressure 159/98 H 09/17/18 17:59 Pulse Oximetry 98 09/17/18 17:59 Temperature 36.8 C 09/17/18 17:59 Temperature Source Temporal Artery Scan 09/17/18 17:59 Pulse 94 H 09/17/18 17:59 Respiratory Rate 20 09/17/18 17:59 Respiratory Effort Non-Labored 09/17/18 17:59 Blood Pressure 159/98 H 09/17/18 17:59 Pulse Oximetry 98 09/17/18 17:59 Oxygen Delivery Method Room Air 09/17/18 17:59 Oxygen Flow Rate 0 09/17/18 17:59 Pain Level 10 09/17/18 17:59
[2018-09-17 18:37] VITALS: BP 159/98; PULSE 94; RESP 20; TEMP 36.8; O2SAT 98
[2018-09-17] MEDS: Cephalexin 500 MG CAP PO (18:37)
== END 2018-09-17 18:37 | disposition home or self-care (01) ==
LOC: ER 18:38
PROVIDERS: Emergency Provider Emergency Medicine; PCP Nurse Practitioner
DX: L03.011 Cellulitis of right finger (principal); B95.62 Methicillin resistant Staphylococcus aureus infection as the cause of diseases classified elsewhere; L93.0 Discoid lupus erythematosus; Z79.01 Long term (current) use of anticoagulants
CPT/HCPCS: 10060; 80053; 87077; 83735; 84484; 85025; 87070; 87186; 87205

== ENCOUNTER 2018-10-27 15:42 | Outpatient (CLI) | payer MEDICARE, SELFPAY ==
[2018-10-27 16:55] LABS: INR 3.2 (0.9-1.1)
== END 2018-10-27 16:02 ==
PROVIDERS: PCP Nurse Practitioner; Visit Provider Nurse Practitioner
DX: I48.91 Unspecified atrial fibrillation (principal); Z79.01 Long term (current) use of anticoagulants
CPT/HCPCS: 36415; 85610

== ENCOUNTER 2019-01-14 10:12 | Outpatient (CLI) | payer MEDICARE, SELFPAY ==
[2019-01-14 10:49] LABS: INR 1.5 (0.9-1.1)
== END 2019-01-14 10:32 ==
PROVIDERS: PCP Nurse Practitioner; Visit Provider Nurse Practitioner
DX: I48.92 Unspecified atrial flutter (principal); Z79.01 Long term (current) use of anticoagulants
CPT/HCPCS: 36415; 85610

== ENCOUNTER 2019-02-07 10:37 | Outpatient (REF) | payer MEDICARE, SELFPAY ==
[2019-02-07 13:23] LABS: INR 1.9 (0.9-1.1)
[2019-02-07 14:01] LABS: Calculated LDL 117 mg/dL; Cholesterol 189 mg/dL (50-200); HDL Cholesterol 46 mg/dL (40-60); Triglyceride 133 mg/dL (30-150)
== END 2019-02-07 10:57 ==
LOC: NCHCN 10:37
PROVIDERS: PCP Nurse Practitioner; Visit Provider Nurse Practitioner
DX: E78.5 Hyperlipidemia, unspecified (principal); I10 Essential (primary) hypertension; Z79.01 Long term (current) use of anticoagulants; I48.91 Unspecified atrial fibrillation
CPT/HCPCS: 80061; 85610

== ENCOUNTER 2019-04-07 14:03 | Outpatient (CLI) | payer MEDICARE, SELFPAY ==
[2019-04-07 14:58] LABS: INR 1.7 (0.9-1.1)
== END 2019-04-07 14:23 ==
LOC: NCHCO 14:05 → LBO 21:00
PROVIDERS: PCP Nurse Practitioner; Visit Provider Nurse Practitioner
DX: I48.92 Unspecified atrial flutter (principal); Z79.01 Long term (current) use of anticoagulants
CPT/HCPCS: 36415; 85610

== ENCOUNTER → 2019-05-03 09:34 | Outpatient (BNVA) | payer MEDICARE, SELFPAY | PROVIDERS: PCP Nurse Practitioner; Referring Provider Nurse Practitioner; Visit Provider Internal Medicine Cardiovascular Disease | DX: I50.9 Heart failure, unspecified (principal); I49.3 Ventricular premature depolarization; I42.9 Cardiomyopathy, unspecified; E78.5 Hyperlipidemia, unspecified; Z95.2 Presence of prosthetic heart valve; I11.0 Hypertensive heart disease with heart failure; Z79.01 Long term (current) use of anticoagulants | CPT/HCPCS: 99204; 99215 ==

== ENCOUNTER → 2019-05-03 10:48 | Outpatient (CLI) | payer MEDICARE, SELFPAY ==
[2019-05-03 11:29] LABS: INR 1.8 (0.9-1.1); Prothrombin Time 17.4 sec (9.3-11.0)
== END ==
PROVIDERS: PCP Nurse Practitioner; Visit Provider Nurse Practitioner
DX: I48.92 Unspecified atrial flutter (principal); Z79.01 Long term (current) use of anticoagulants; I50.9 Heart failure, unspecified; I49.3 Ventricular premature depolarization; I42.9 Cardiomyopathy, unspecified; E78.5 Hyperlipidemia, unspecified; Z95.2 Presence of prosthetic heart valve; I11.0 Hypertensive heart disease with heart failure
CPT/HCPCS: 36415; 99215; 85610

== ENCOUNTER 2019-05-17 14:23 | Outpatient (CLI) | payer MEDICARE, SELFPAY ==
[2019-05-17 15:55] LABS: INR 3.9 (0.9-1.1); Prothrombin Time 37.9 sec (9.3-11.0)
== END 2019-05-17 14:43 ==
PROVIDERS: PCP Nurse Practitioner; Visit Provider Nurse Practitioner
DX: I48.92 Unspecified atrial flutter (principal); Z79.01 Long term (current) use of anticoagulants
CPT/HCPCS: 36415; 85610

== ENCOUNTER 2019-06-17 10:37 | Outpatient (CLI) | payer MEDICARE, SELFPAY ==
[2019-06-17 11:47] LABS: INR 1.8 (0.9-1.1); Prothrombin Time 17.9 sec (9.3-11.0)
== END 2019-06-17 10:57 ==
PROVIDERS: PCP Nurse Practitioner; Visit Provider Nurse Practitioner
DX: I48.91 Unspecified atrial fibrillation (principal); Z79.01 Long term (current) use of anticoagulants
CPT/HCPCS: 36415; 85610

== ENCOUNTER 2019-09-13 18:02 | Outpatient (REF) | payer MEDICARE, SELFPAY ==
[2019-09-13 18:28] LABS: Abs Immature Grans 0.02 k/cumm (0.0-0.09); Absolute Basophil Count 0.05 k/cumm (0.0-0.2); Absolute Eosinophil Count 0.22 k/cumm (0.0-0.7); Absolute Lymphocyte Count 1.33 k/cumm (1.2-3.4); Absolute Monocyte Count 0.68 k/cumm (0.11-0.7); Absolute Neutrophil Count 4.39 k/cumm (1.2-6.7); Basophils % 0.7; Eosinophils % 3.3; HCT 39.7 % (36.0-46.0); Immature Grans % 0.3 %; Lymphocytes % 19.9; Mean Corp. HGB Concentration 35.3 g/dL (32.0-36.0); Mean Corpuscular Hemoglobin 33.1 pg (27.0-33.0); Mean Corpuscular Volume 93.9 fL (80-95); Monocytes % 10.2; Neutrophils % 65.6; Platelet Count 237 x1000/uL (130-400); RBC 4.23 m/cumm (4.00-5.20); RBC Distribution Width 12.5 % (11.7-14.6); White Blood Cell Count 6.69 k/cumm (4.4-10.8)
== END 2019-09-13 18:22 ==
LOC: NCHCN 18:02
PROVIDERS: PCP Nurse Practitioner; Visit Provider Nurse Practitioner
DX: R23.3 Spontaneous ecchymoses (principal); R23.8 Other skin changes
CPT/HCPCS: 85025

== ENCOUNTER 2019-11-03 12:16 | Outpatient (REF) | payer MEDICARE, SELFPAY ==
[2019-11-03 16:27] LABS: Prothrombin Time 21.2 sec (9.3-11.0)
[2019-11-03 16:34] LABS: INR 2.1 (0.9-1.1)
[2019-11-03 16:40] LABS: Hemoglobin A1C 5.1 % (3.8-5.6)
== END 2019-11-03 12:36 ==
LOC: NCHCN 12:16
PROVIDERS: PCP Nurse Practitioner; Visit Provider Family Medicine
DX: Z79.01 Long term (current) use of anticoagulants (principal)
CPT/HCPCS: 83036; 85610

== ENCOUNTER 2019-11-17 11:19 | Outpatient (REF) | payer MEDICARE, SELFPAY ==
[2019-11-17 15:56] LABS: INR 1.7 (0.9-1.1); Prothrombin Time 17.3 sec (9.3-11.0)
== END 2019-11-17 11:39 ==
LOC: NCHCN 11:19
PROVIDERS: PCP Nurse Practitioner; Visit Provider Nurse Practitioner
DX: I48.91 Unspecified atrial fibrillation (principal); Z79.01 Long term (current) use of anticoagulants
CPT/HCPCS: 85610

== ENCOUNTER 2019-11-22 09:53 | Outpatient (REF) | payer MEDICARE, SELFPAY ==
[2019-11-22 20:07] LABS: INR 1.7 (0.9-1.1)
== END 2019-11-22 10:13 ==
LOC: NCHCN 09:53
PROVIDERS: PCP Nurse Practitioner; Visit Provider Nurse Practitioner
DX: Z79.01 Long term (current) use of anticoagulants (principal)
CPT/HCPCS: 85610

== ENCOUNTER 2019-11-30 20:25 | Outpatient (REF) | payer MEDICARE, SELFPAY ==
[2019-11-30 18:28] LABS: INR 2.2 (0.9-1.1); Prothrombin Time 21.7 sec (9.3-11.0)
== END 2019-11-30 20:45 ==
LOC: NCHCN 20:25
PROVIDERS: PCP Nurse Practitioner; Visit Provider Nurse Practitioner
DX: Z79.01 Long term (current) use of anticoagulants (principal)
CPT/HCPCS: 85610

== ENCOUNTER 2019-12-08 09:56 | Outpatient (REF) | payer MEDICARE, SELFPAY ==
[2019-12-08 15:48] LABS: INR 2.8 (0.9-1.1); Prothrombin Time 27.3 sec (9.3-11.0)
== END 2019-12-08 10:16 ==
LOC: NCHCN 09:56
PROVIDERS: PCP Nurse Practitioner; Visit Provider Nurse Practitioner
DX: Z79.01 Long term (current) use of anticoagulants (principal)
CPT/HCPCS: 85610

== ENCOUNTER 2019-12-22 19:14 | Outpatient (REF) | payer MEDICARE, SELFPAY ==
[2019-12-22 19:11] LABS: INR 2.5 (0.9-1.1); Prothrombin Time 24.8 sec (9.3-11.0)
== END 2019-12-22 19:34 ==
LOC: NCHCN 19:14
PROVIDERS: PCP Nurse Practitioner; Visit Provider Nurse Practitioner
DX: I48.91 Unspecified atrial fibrillation (principal); Z79.01 Long term (current) use of anticoagulants
CPT/HCPCS: 85610

== ENCOUNTER 2020-01-10 14:48 | Outpatient (REF) | payer MEDICARE, SELFPAY ==
[2020-01-10 18:32] LABS: INR 1.9 (0.9-1.1); Prothrombin Time 18.5 sec (9.3-11.0)
== END 2020-01-10 15:08 ==
LOC: NCHCN 14:48
PROVIDERS: PCP Nurse Practitioner; Visit Provider Nurse Practitioner
DX: I48.91 Unspecified atrial fibrillation (principal); Z79.01 Long term (current) use of anticoagulants
CPT/HCPCS: 85610

== ENCOUNTER 2020-01-19 12:31 | Outpatient (REF) | payer MEDICARE, SELFPAY ==
[2020-01-19 18:29] LABS: INR 2.8 (0.9-1.1); Prothrombin Time 27.8 sec (9.3-11.0)
== END 2020-01-19 12:51 ==
LOC: NCHCN 12:31
PROVIDERS: PCP Nurse Practitioner; Visit Provider Nurse Practitioner
DX: I48.91 Unspecified atrial fibrillation (principal); Z79.01 Long term (current) use of anticoagulants
CPT/HCPCS: 85610

== ENCOUNTER 2020-02-22 13:22 | Outpatient (REF) | payer MEDICARE, SELFPAY ==
[2020-02-22 19:47] LABS: INR 1.6 (0.9-1.1); Prothrombin Time 15.5 sec (9.3-11.0)
== END 2020-02-22 13:42 ==
LOC: NCHCN 13:22
PROVIDERS: PCP Nurse Practitioner; Visit Provider Nurse Practitioner
DX: I48.91 Unspecified atrial fibrillation (principal); Z79.01 Long term (current) use of anticoagulants
CPT/HCPCS: 85610

== ENCOUNTER 2020-03-18 16:54 | Emergency (ER) | payer MEDICARE, SELFPAY ==
[2020-03-18] VITALS (16 sets, daily range): BP systolic 95–148; BP diastolic 60–91; PULSE 65–89; RESP 17–30; TEMP 36.7; O2SAT 94–98
--- NOTE | 2020-03-18 16:45 | RT.EKG_ITS ---
APPROVED REPORT Exam: Resting ECG Patient Location: E HR:71 bpm ECG Measurements Heart Rate 71 AXIS ID 179 P 51 QRSd 111 QRS -25 QT 445 T 21 QTc 486 Conclusion Sinus rhythm...normal P axis, V-rate 60- 99 Probable left atrial enlargement...P >50mS, <-0.10mV V1 LVH with IVCD and secondary repol abnrm...multi-criteria, wQRSd, abnr ST-T 1-2mm ST elevation in V2-3, may be due to LVH. 1mm ST depression in V5-6. These appear new compared to previous.
[2020-03-18] MEDS: Normal Saline Flush 10 ML SYR IVP (17:30)
[2020-03-18] MEDS: Aspirin 81 MG CHEW 243 MG CH (17:45)
[2020-03-18 17:55] LABS: Abs Immature Grans 0.02 10^3/uL (0.0-0.06); Absolute Basophil Count 0.07 10^3/uL (0.0-0.2); Absolute Eosinophil Count 0.19 10^3/uL (0.0-0.7); Absolute Lymphocyte Count 1.95 10^3/uL (1.2-3.4); Absolute Monocyte Count 0.63 10^3/uL (0.1-0.8); Absolute Neutrophil Count 4.08 10^3/uL (1.2-6.7); Eosinophils % 2.7; HGB 14.4 g/dL (11.2-15.7); Immature Grans % 0.3; Lymphocytes % 28.1; MCH 32.2 pg (27.0-33.0); MCHC 34.3 % (32.0-36.0); MPV 10.6 fL (8.0-11.0); Monocytes % 9.1; Neutrophils % 58.8; Nucleated RBC 0 %; Platelet Count 292 10^3/uL (130-400); RBC 4.47 10^6/uL (3.93-5.22); RDW 12.6 % (11.7-14.6); RDW-SD 43.7 fL; WBC 6.94 10^3/uL (4.4-10.8)
--- NOTE | 2020-03-18 18:00 | RT.EKG_ITS ---
APPROVED REPORT Exam: Resting ECG Patient Location: E HR:68 bpm ECG Measurements Heart Rate 68 AXIS TX 188 P 58 QRSd 108 QRS -24 QT 455 T 4 QTc 483 Conclusion Sinus rhythm...normal P axis, V-rate 60- 99 Probable left atrial enlargement...P >50mS, <-0.10mV V1 Left ventricular hypertrophy...multiple LVH criteria I have reviewed and interpreted ECG and agree with software generated interpretation.
[2020-03-18 18:07] LABS: INR 2.9 (0.9-1.1); PTT Activated 34.8 sec (21.0-27.5)
--- NOTE | 2020-03-18 18:09 | ED.GENADUL_ITS ---
Discharge Plan Disposition Patient Disposition: [facility] Condition: Serious Discharge Details Chief Complaint: Chest Pain Clinical Impression: Pulmonary embolism, FATIMA (dyspnea on exertion), Chest pain Primary Care Provider: Mckenna Genao ED Provider: Shaw Rivera Home Meds and New Rx's Prescriptions: No Action aspirin 81 mg tablet,chewable 81 mg PO DAILY RF: 0 methotrexate (PF) 7.5 mg/0.15 mL auto-injector 7.5 mg SC QWEEK RF: 0 metoprolol succinate 25 mg tablet extended release 24 hr 25 mg PO DAILY Qty: 90 RF: 6 levothyroxine 25 MCG tablet 25 mcg PO DAILY Qty: 60 RF: 1 warfarin [Coumadin] 1 MG tablet 5 - 7.5 mg PO DAILY RF: 0 cetirizine 10 MG tablet 10 mg PO PRN PRNRF: 0 hydroxychloroquine 200 MG tablet 200 mg PO BID RF: 0 Multiple Vitamin, Womens Tablet 1 ea PO DAILY RF: 0 pantoprazole 40 mg tablet,delayed release (DR/EC) 40 mg PO BID PRN PRNRF: 0 albuterol sulfate 90 mcg/actuation HFA aerosol inhaler 2 inh INHALATION Q4H PRN PRNRF: 0 fluoxetine 20 mg capsule 40 mg PO DAILY RF: 0 Flovent HFA 110 mcg/actuation HFA aerosol inhaler 2 inh INHALATION DAILY RF: 0 Medical Decision Making 50-year-old female with a significant and complicated past medical history, most recent mechanical aortic valve replacement, presents to the ER for 3-week history of worsening left-sided chest pain that is worse with breathing, general fatigue, dyspnea with exertion. She does have left-sided chest wall reproducible pain. Clinically she appears well, nontoxic, blood pressure 132/72 pulse 86 respirations 19 O2 sat 96% on room air as she is afebrile. Given her complicated past history I will obtain a cardiac work-up including a chest CTA, give additional 3 baby aspirin, she already took 1 today. Differential includes but not excluded to ACS, graft leak, aortic aneurysm, pneumonia, Covid, PE, etc. I did discuss the case immediately with Dr. Villalobos. Initial EKG obtained at 1710, please see official report by Dr. Villalobos. Sinus rhythm, ventricular of 71. LVH however there does appear to be minimal elevation of the ST segment in the V2 and V3 leads, inversion V5 V6. This does appear different than previous. Immediate call placed to cardiology at [facility] given her EKG findings and complicated past oral history. I spoke with Dr. Cain, cardiology at 1800. He reviewed the EKG, did not feel as though it met criteria for emergent transfer secondary to STEMI but does believe it is worrisome given her complicated past medical history. Recommend obtaining a second EKG, giving nitro, and reassessment. At the time of my conversation only her CBC had been resulted. Repeat EKG obtained at 1817. Please see official report by Dr. Villalobos. Sinus rhythm, ventricular of 68. LVH. Continuation of V2 V3 ST elevation segments minimally, V5 and V6 both look improved. Laboratory values resulted and are unremarkable for emergent process. White blood cell count of 6.9 for, INR 2.9 potassium 3.3 glucose 103, troponin less than 0.05, BNP 234. I was able to speak with Dr. Cain at 1830 regarding the repeat EKG, her continued pain of 7 out of 10 after 3 nitro were given. At this time he believes that giving aspirin was appropriate. Does not want to initiate heparin or a second antiplatelet medication. Her INR is therapeutic. He believes that transfer to his facility at this time is in the best care of the patient, Dr. Gibbs will be to be excepting. He has no additional recommendations at this time. CTA obtained while awaiting transfer. I received a call from virtual radiology reporting it to subsegmental small PEs in the left lower lobe. No real clot burden. I did contact Dr. Cain a third time to make him aware of these findings. He did not recommend any additional therapy and was still comfortable with transfer. Patient was given 2 mg IV morphine, reports her pain is now mild. She remains hemodynamically stable under my care. Patient has no additional questions or concerns and is comfortable with transfer. Lab Data Lab results reviewed: Yes I reviewed the patient's lab results. Lab results narrative: Laboratory Tests Range/Units 03/18/20 03/18/20 03/18/20 17:30 17:30 17:30 WBC (4.4-10.8) 10^3/uL 6.94 RBC (3.93-5.22) 10^6/uL 4.47 Hgb (11.2-15.7) g/dL 14.4 Hct (36.0-46.0) % 42.0 MCV (80-95) fL 94.0 MCH (27.0-33.0) pg 32.2 MCHC (32.0-36.0) % 34.3 RDW (11.7-14.6) % 12.6 Plt Count (130-400) 10^3/uL 292 MPV (8.0-11.0) fL 10.6 Immature Gran % 0.3 Neutrophils % 58.8 Lymphocytes % 28.1 Monocytes % 9.1 Eosinophils % 2.7 Basophils % 1.0 Nucleated RBC % % 0 Absolute Neutrophils (1.2-6.7) 10^3/uL 4.08 Absolute Lymphocytes (1.2-3.4) 10^3/uL 1.95 Absolute Monocytes (0.1-0.8) 10^3/uL 0.63 Absolute Eosinophils (0.0-0.7) 10^3/uL 0.19 Absolute Basophils (0.0-0.2) 10^3/uL 0.07 PT (9.3-11.0) sec 28.0 H INR (0.9-1.1) 2.9 H APTT (21.0-27.5) sec 34.8 H Sodium (136-145) mmol/L 141 Potassium (3.5-5.1) mmol/L 3.3 L Chloride (98-107) mmol/L 105 Carbon Dioxide (21.0-32.0) mmol/L 30.7 Anion Gap (3-11) mmol/L 5.3 BUN (7-18) mg/dL 17 Creatinine (0.55-1.02) mg/dL 1.00 Estimated GFR/1.73 m2 (mL/min/1.73m2) 59.18 Glucose (74-106) mg/dL 103 Calcium (8.5-10.1) mg/dL 8.8 Magnesium (1.8-2.4) mg/dL 1.8 Total Bilirubin (0.2-1.0) mg/dL 0.4 AST (15-37) U/L 25 ALT (14-59) U/L 22 Alkaline Phosphatase (46-116) U/L 124 H Troponin I (<0.06) ng/mL < 0.05 NT-Pro-B Natriuret Pep (<300) pg/mL 234 Total Protein (6.4-8.2) g/dL 7.3 Albumin (3.4-5.0) g/dL 3.6 ECG Data Attestation: I personally reviewed and interpreted this ECG (s) as follows: Interpretation: Please see official report by Dr. Villalobos. Sinus rhythm, ventricular rate of 71. LVH. Slight ST elevation in V2, V3. Reciprocal changes in the 5 V6. No true STEMI HPI General Mode of arrival: ambulatory . Date/Time Provider Initiated Documentation: 03/18/20 16:59 . Limitations to Documentation: no limitations . Information obtained by: patient . HPI Narrative: This is a 50-year-old female with past medical history that includes mechanical aortic valve replacement in 2018 at [facility], CHF, migraines, lupus, depression, GERD, antiphospholipid antibody syndrome, cardiomyopathy, hypertension, CVA, chronic anticoagulation, presenting to the ER today for evaluation of left-sided chest pain that has been going on for approximately 3 weeks. She states that the pain is fairly constant but not always there. It is worse with taking a deep breath. It has been as bad as a 9 out of 10, currently a 7 out of 10. It has occasionally radiated to her shoulder and neck but does not currently. The chest pain she describes as sharp in nature. She also reports general fatigue and dyspnea with exertion. Denies recent sickness or travel. Denies fever, cough, visual changes, abdominal pain, back pain, nausea, vomiting, dysuria, hematuria, diarrhea, constipation, numbness, tingling, weakness, pain or swelling in her legs. She last saw cardiology in April of this year. She is scheduled to see cardiology again April 2020 Related Data Home Medications Medication Instructions Recorded Confirmed warfarin [Coumadin] 5 - 7.5 mg PO DAILY 08/18/12 03/18/20 cetirizine 10 mg PO PRN PRN 02/27/16 03/18/20 hydroxychloroquine 200 mg PO BID 02/27/16 03/18/20 levothyroxine 25 mcg PO DAILY #60 tab 03/05/17 03/18/20 Multiple Vitamin, Womens 1 ea PO DAILY 12/25/17 03/18/20 aspirin 81 mg chewable tablet 81 mg PO DAILY 02/17/18 03/18/20 methotrexate (PF) 7.5 mg/0.15 mL 7.5 mg SC QWEEK 05/03/19 03/18/20 subcutaneous auto-injector metoprolol succinate 25 mg 25 mg PO DAILY #90 tab 05/03/19 03/18/20 tablet,extended release 24 hr albuterol sulfate 2 inh INHALATION Q4H PRN PRN 03/18/20 03/18/20 fluoxetine 40 mg PO DAILY 03/18/20 03/18/20 fluticasone propionate [Flovent 2 inh INHALATION DAILY 03/18/20 03/18/20 HFA] pantoprazole 40 mg PO BID PRN PRN 03/18/20 03/18/20 Previous Rx's Medication Instructions Recorded levothyroxine 25 mcg PO DAILY #60 tab 03/05/17 metoprolol succinate 25 mg 25 mg PO DAILY #90 tab 05/03/19 tablet,extended release 24 hr Allergies Allergy/AdvReac Type Severity Reaction Status Date / Time tramadol AdvReac Intermediate GI Upset Verified 03/18/20 17:13 General Stated Complaint: Chest Pain RACHELLE: 2 Review of Systems Constitutional Constitutional: Reports fatigue, Denies fever(s), Denies headache(s) and Denies weakness Eyes Eyes: Denies change in vision ENT Ears, Nose, Mouth, and Throat: Denies headache(s) and Reports neck pain (None currently) Cardiovascular Cardiovascular: Reports chest pain, Reports dyspnea and Reports dyspnea on exertion Respiratory Respiratory: Denies cough, Reports dyspnea and Reports dyspnea on exertion Gastrointestinal Gastrointestinal: Denies abdominal pain, Denies nausea and Denies vomiting Genitourinary Genitourinary: Denies dysuria Musculoskeletal Musculoskeletal: Denies back pain, Denies numbness and Denies tingling Integumentary/Breasts Skin/Breast: Denies rash Neurologic Neurologic: Denies headache(s), Denies numbness, Denies tingling and Denies weakness Endocrine Endocrine: Reports fatigue Hematologic/Lymphatic Hematologic/Lymphatic: Reports easy bleeding and Reports easy bruising [facility] Medical History (Updated 03/18/20 @ 19:36 by JANET Barba) Allergic rhinitis Antiphospholipid antibody syndrome Aortic insufficiency Cardiomyopathy CHF (congestive heart failure) Combined abdominal and pelvic pain 2014. Pt had neg Resource Specialist eval. CT of abd showed diverticulosis w/o diverticulitis of colon. Depression Depressive disorder Diverticulosis of colon noted on CT of abd as eval for abd and pelvic pain. Fatty infiltration of liver nl LFTs with exception of Alk Phosphatase. GERD (gastroesophageal reflux disease) Hiatal hernia Seen on EGD with Dr Fofana on 12/29/17, he recommended a barium swallow Hyperlipidemia Hypertension Insomnia Late effects of CVA (cerebrovascular accident) Lupus Hx of CVA, antiphospholipid AB, CHF. On chronic anticoagulation. Migraine Migraine Sleep apnea Surgical History Dilation and curettage 1989 Endometrial Ablation 2003 H/O aortic valve replacement History of esophagogastroduodenoscopy (EGD) (12/29/17) Dr Fofana, hiatal hernia - recommends barium swallow. Replacement of total knee joint 2004 bilateral Family History Mother Osteoporosis Father Hyperlipidemia Grandmother Heart disease Social History Smoking/Tobacco Use Status: Former Tobacco Use Quit Date: 04/06/91 Tobacco: How many years used: 2 Smoking risk assessment performed?: Yes Alcohol Intake: never Drug use: Never Substance use type: does not use What type of physical activity do you participate in: walking Do you feel safe at home: Yes Do you feel safe in your relationship?: Yes Exam Const General: cooperative, healthy appearing, comfortable and no acute distress Orientation: alert, awake and oriented x3 HENMT Head: normal to inspection, normocephalic and atraumatic Face and sinus: normal facial exam Mouth: moist mucous membranes Throat: posterior oropharynx normal Eyes General: appearance normal, both eyes and all related structures Conjunctivae: conjunctivae normal Sclera: sclerae normal Neck Neck: normal visual inspection, full ROM, no meningeal signs, trachea midline, supple and nontender Chest Chest: normal inspection of the chest, tenderness (Left anterior, diffuse) and other Resp Effort & Inspection: normal respiratory effort and able to speak in complete sentences Auscultation: clear to auscultation bilaterally Cardio Rate: regular rate Rhythm: regular rhythm Heart Sounds: other (Audible mechanical click) GI Inspection: normal to inspection Palpation: soft, not firm, no guarding, no pulsatile masses and nontender Auscultation: normal bowel sounds Back/Spine/Pelvis Back: no CVA tenderness and No back tenderness Skin General skin exam: no rashes or lesions noted Neuro General: patient alert, patient awake, patient oriented x3, moves all extre mities and no focal motor deficits Cognition: normal cognition Speech: speech normal Gait: normal gait Motor: muscle tone normal throughout Sensory Exam: no sensory deficits noted Extrem General: normal to inspection, full ROM, capillary refill normal, no pedal edema and no calf tenderness Psych Appearance: grossly normal Mental Status: mental status grossly normal Course Vital Signs Vital signs: Vital Signs Temperature 36.7 C 03/18/20 17:01 Pulse 86 03/18/20 17:01 Respiratory Rate 19 03/18/20 17:01 Blood Pressure 132/72 03/18/20 17:01 Pulse Oximetry 96 03/18/20 17:01 Temperature 36.7 C 03/18/20 17:01 Temperature Source Temporal Artery Scan 03/18/20 17:01 Pulse 74 03/18/20 17:45 Pulse 80 03/18/20 17:45 Respiratory Rate 23 03/18/20 18:01 Respiratory Effort 03/18/20 18:01 Respiratory Pattern Normal 03/18/20 18:01 Blood Pressure 126/60 03/18/20 17:45 Blood Pressure Mean 75 03/18/20 17:45 Blood Pressure Position Supine 03/18/20 17:01 Pulse Oximetry 97 03/18/20 17:50 Oxygen Delivery Method Room Air 03/18/20 17:01 Oxygen Flow Rate 0 03/18/20 17:01 Pain Level 7 03/18/20 18:01 Lab/Test Results Lab/Test Results: Laboratory Tests Range/Units 03/18/20 03/18/20 17:30 17:30 WBC (4.4-10.8) 10^3/uL 6.94 RBC (3.93-5.22) 10^6/uL 4.47 Hgb (11.2-15.7) g/dL 14.4 Hct (36.0-46.0) % 42.0 MCV (80-95) fL 94.0 MCH (27.0-33.0) pg 32.2 MCHC (32.0-36.0) % 34.3 RDW (11.7-14.6) % 12.6 Plt Count (130-400) 10^3/uL 292 MPV (8.0-11.0) fL 10.6 Immature Gran % 0.3 Neutrophils % 58.8 Lymphocytes % 28.1 Monocytes % 9.1 Eosinophils % 2.7 Basophils % 1.0 Nucleated RBC % % 0 Absolute Neutrophils (1.2-6.7) 10^3/uL 4.08 Absolute Lymphocytes (1.2-3.4) 10^3/uL 1.95 Absolute Monocytes (0.1-0.8) 10^3/uL 0.63 Absolute Eosinophils (0.0-0.7) 10^3/uL 0.19 Absolute Basophils (0.0-0.2) 10^3/uL 0.07 PT (9.3-11.0) sec 28.0 H INR (0.9-1.1) 2.9 H APTT (21.0-27.5) sec 34.8 H Critical Care Time Critical Care Time Critical Care Time: Yes Total Critical Care Time: 45 Attestation: Upon my evaluation, this patient had a high probability of clinically significant, life-threatening deterioration due to their current medical conditions, which required my direct attention, intervention, and personal management. I have personally provided greater than 30 minutes of critical care time exclusive of the time spend on separately billable procedures. Time includes obtaining a history, examining the patient, pulse oximetry, review of laboratory data, radiology results, discussion with consultants, arranging urgent treatment with development of a management plan, evaluation of patient's response to treatment, and monitoring for potential decompensation. Interventions were performed as documented above.
[2020-03-18 18:13] LABS: ALT 22 U/L (14-59); AST 25 U/L (15-37); Albumin 3.6 g/dL (3.4-5.0); Alkaline Phosphatase 124 U/L (46-116); Anion Gap 5.3 mmol/L (3-11); BUN 17 mg/dL (7-18); Bilirubin, Total 0.4 mg/dL (0.2-1.0); CO2 30.7 mmol/L (21.0-32.0); Calcium 8.8 mg/dL (8.5-10.1); Chloride 105 mmol/L (98-107); Estimated GFR 59.18 (mL/min/1.73m2); Glucose 103 mg/dL (74-106); Magnesium 1.8 mg/dL (1.8-2.4); NT-proBNP 234 pg/mL (<300); Potassium 3.3 mmol/L (3.5-5.1); Sodium 141 mmol/L (136-145); Total Protein 7.3 g/dL (6.4-8.2)
[2020-03-18 18:14] LABS: Troponin I < 0.05 ng/mL (<0.06)
[2020-03-18] MEDS: nitroGLYcerin 0.4 MG TAB SL ×3 (18:21→18:32)
--- NOTE | 2020-03-18 18:48 | DI.CT_ITS ---
EXAM: CT CHEST PE CTA CLINICAL HISTORY: hx of Aortic valve replacement, sob, CP. TECHNIQUE: Imaging Protocol: CT angiography of the chest was performed using pulmonary embolus madeline col. Multi planar reconstructions were performed. CONTRAST MATERIAL: Intravenous: Omnipaque 350 Contrast volume:73 cc Oral: None COMPARISON: No exams were available for comparison FINDINGS: CHEST: PULMONARY ARTERIES: There are no intraluminal filling defects to suggest acute pulmonary emboli. LUNGS: There are no confluent pulmonary infiltrates. No evidence of pulmonary infarction.. No pleur al effusions. MEDIASTINUM: There is no hilar nor mediastinal adenopathy. Visualized thyroid unremarkable. CARDIAC: Mild cardiomegaly. Sternotomy wires. No pericardial effusion.Caliber of the thoracic aorta is within normal limits. No evidence of aortic dissection.There is no evidence of shift of the inte rventricular septum. OSSEOUS: No significant osseous lesions.. Lower most images of this chest study reveal cysts in both kidneys although please note the entire ki dneys are not included in the field of view and more ominous renal pathology cannot be excluded. No significant adrenal mass is evident. IMPRESSION: 1. No evidence of acute pulmonary emboli. No evidence of pulmonary infarction. 2. No pleural effusions 3. Mild cardiomegaly. There are sternotomy wires. 4. No evidence of aortic dissection. RADIATION DOSE DELIVERED: 416.63mGy.cm Total DLP DATA REPOSITORY: All CT scans at this facility are submitted to the National Radiology Data Registry (NRDR) Dose Index Registry (DIR) with the [employer] (ACR). RADIATION OPTIMIZATION: All CT scans at this facility use at least one of these dose optimization te chniques: automated exposure control; mA and/or kV adjustment per patient size (includes targeted exa ms where dose is matched to clinical indication); or iterative reconstruction.
[2020-03-18] MEDS: Normal Saline - Diluent 50 ML VIAL IV (18:59)
[2020-03-18] MEDS: Omnipaque 350 MG/ML 100 ML BTL 73 ML IJ (19:00)
--- NOTE | 2020-03-18 19:18 | DI.VRAD_ITS ---
PROCEDURE INFORMATION: Exam: CT Angiography Chest With Contrast Exam date and time: 03/18/2020 6:48 PM Age: 50 years old Clinical indication: Shortness of breath; Prior surgery; Surgery date: 6+ months; Surgery type: Aortic valve replacement 2017; Patient HX: Aortic valve replacement, SOB, cp TECHNIQUE: Imaging protocol: Computed tomographic angiography of the chest with intravenous contrast. 3D rendering (Not supervised by radiologist): MIP and/or 3D reconstructed images were created by the technologist. Radiation optimization: All CT scans at this facility use at least one of these dose optimization techniques: automated exposure control; mA and/or kV adjustment per patient size (includes targeted exams where dose is matched to clinical indication); or iterative reconstruction. Contrast material: OMNI-PAQUE 350; Contrast volume: 73 ml; Contrast route: INTRAVENOUS (IV); COMPARISON: CR XR CHEST 2V PA LATERAL 12/29/2017 10:27 AM FINDINGS: Pulmonary arteries: Contrast fills the pulmonary artery and its branch vessels satisfactorily. Left lower lobe filling defects in subsegmental pulmonary artery branches consistent with pulmonary emboli. These are best seen on series 6, image 353 and 357. The RV/LV ratio is 0.98. Aorta: Unremarkable. No aortic aneurysm. No aortic dissection. Lungs: Right lower lobe foci of pleural thickening and atelectasis. No consolidations or pulmonary nodules. Pleural space: Unremarkable. No pneumothorax. No pleural effusion. Heart: Postoperative changes of aortic valve replacement. Median sternotomy wires. Lymph nodes: Multiple reactive prevascular mediastinal lymph nodes. Kidneys and ureters: Multiple bilateral simple exophytic renal cortical cysts. One tiny left internally hyperdense hemorrhagic cyst measuring 5 mm. Bones/joints: Unremarkable. Soft tissues: Unremarkable. IMPRESSION: 1. Left lower lobe subsegmental pulmonary emboli. No evidence for right heart strain. 2. Multiple bilateral simple renal cortical cysts. Subcentimeter left lateral hemorrhagic 5 mm cyst. The study was personally discussed on the telephone with Shaw Lauren on 03/18/2020 7:12 PM EST. The results were understood and acknowledged. Dictated and Authenticated by: Minnie Gee MD. Ordering:DANI Squires MD
--- NOTE | 2020-03-18 19:28 | NUR.NOTE ---
Nursing Note: [place] [facility] [place] department has a heads up to them at floor number [phone].
== END 2020-03-18 19:40 | disposition short-term general hospital (02) ==
PROVIDERS: Emergency Provider Physician Assistant; PCP Nurse Practitioner
DX: I26.94 Multiple subsegmental thrombotic pulmonary emboli without acute cor pulmonale (principal); I42.9 Cardiomyopathy, unspecified; Z79.01 Long term (current) use of anticoagulants; Z95.2 Presence of prosthetic heart valve; I10 Essential (primary) hypertension
CPT/HCPCS: 36415; 71275; 80053; 93005; 96374; 99291; 83735; 83880; 84484; 85025; 85610; 85730; 93010; J3490

== ENCOUNTER 2020-03-24 12:26 | Outpatient (REF) | payer MEDICARE, SELFPAY ==
[2020-03-24 12:38] LABS: INR 3.9 (0.9-1.1); Prothrombin Time 37.5 sec (9.3-11.0)
== END 2020-03-24 12:46 ==
LOC: LBN 12:26
PROVIDERS: Registered Nurse; PCP Nurse Practitioner; Visit Provider Physician Assistant Medical
DX: Z79.01 Long term (current) use of anticoagulants (principal); I26.94 Multiple subsegmental thrombotic pulmonary emboli without acute cor pulmonale
CPT/HCPCS: 85610

== ENCOUNTER 2020-03-27 20:41 | Outpatient (REF) | payer MEDICARE, SELFPAY ==
[2020-03-27 21:18] LABS: INR 2.3 (0.9-1.1); Prothrombin Time 22.5 sec (9.3-11.0)
== END 2020-03-27 21:01 ==
LOC: LBN 20:41
PROVIDERS: PCP Nurse Practitioner; Visit Provider Physician Assistant Medical
DX: I48.91 Unspecified atrial fibrillation (principal); Z79.01 Long term (current) use of anticoagulants
CPT/HCPCS: 85610

== ENCOUNTER 2020-04-05 20:27 | Outpatient (REF) | payer MEDICARE, SELFPAY ==
[2020-04-05 15:53] LABS: INR 2.6 (0.9-1.1)
== END 2020-04-05 20:47 ==
LOC: NCHCN 20:27
PROVIDERS: PCP Nurse Practitioner; Visit Provider Physician Assistant Medical
DX: I26.99 Other pulmonary embolism without acute cor pulmonale (principal)
CPT/HCPCS: 85610

== ENCOUNTER → 2020-04-12 10:51 | Outpatient (BNVA) | payer MEDICARE, SELFPAY | PROVIDERS: PCP Nurse Practitioner; Referring Provider Nurse Practitioner; Visit Provider Internal Medicine Cardiovascular Disease | DX: I42.8 Other cardiomyopathies (principal); I26.99 Other pulmonary embolism without acute cor pulmonale; R07.9 Chest pain, unspecified; I50.9 Heart failure, unspecified; Z95.4 Presence of other heart-valve replacement; I11.0 Hypertensive heart disease with heart failure | CPT/HCPCS: 99214 ==

== ENCOUNTER 2020-04-12 20:02 | Outpatient (REF) | payer MEDICARE, SELFPAY ==
[2020-04-12 13:50] LABS: INR 2.6 (0.9-1.1); Prothrombin Time 25.6 sec (9.3-11.0)
== END 2020-04-12 20:22 ==
LOC: LBN 20:02
PROVIDERS: PCP Nurse Practitioner; Visit Provider Nurse Practitioner Family
DX: I26.99 Other pulmonary embolism without acute cor pulmonale (principal); Z79.01 Long term (current) use of anticoagulants
CPT/HCPCS: 85610

== ENCOUNTER 2020-04-23 21:05 | Outpatient (REF) | payer MEDICARE, SELFPAY ==
[2020-04-23 21:21] LABS: INR 2.8 (0.9-1.1); Prothrombin Time 27.4 sec (9.3-11.0)
== END 2020-04-23 21:25 ==
LOC: NCHCN 21:05
PROVIDERS: PCP Nurse Practitioner; Visit Provider Physician Assistant Medical
DX: Z79.01 Long term (current) use of anticoagulants (principal)
CPT/HCPCS: 85610

== ENCOUNTER 2020-05-14 16:23 | Outpatient (REF) | payer MEDICARE, SELFPAY ==
[2020-05-14 21:06] LABS: INR 1.9 (0.9-1.1); Prothrombin Time 18.4 sec (9.3-11.0)
== END 2020-05-14 16:24 | disposition home or self-care (01) ==
LOC: NCHCN 16:23
PROVIDERS: PCP Nurse Practitioner; Visit Provider Nurse Practitioner Family
DX: I26.94 Multiple subsegmental thrombotic pulmonary emboli without acute cor pulmonale (principal); I42.8 Other cardiomyopathies; Z79.01 Long term (current) use of anticoagulants
CPT/HCPCS: 85610

== ENCOUNTER 2020-05-23 18:54 | Outpatient (REF) | payer MEDICARE, SELFPAY ==
[2020-05-23 20:18] LABS: Prothrombin Time 46.9 sec (9.3-11.0)
[2020-05-23 20:52] LABS: INR 4.9 (0.9-1.1)
== END 2020-05-23 18:55 | disposition home or self-care (01) ==
LOC: LBN 18:54
PROVIDERS: PCP Nurse Practitioner; Visit Provider Family Medicine
DX: I26.99 Other pulmonary embolism without acute cor pulmonale (principal); Z79.01 Long term (current) use of anticoagulants
CPT/HCPCS: 85610

== ENCOUNTER 2020-05-29 16:28 | Outpatient (REF) | payer MEDICARE, SELFPAY ==
[2020-05-29 19:35] LABS: Prothrombin Time 41.7 sec (9.3-11.0)
[2020-05-29 20:04] LABS: INR 4.3 (0.9-1.1)
== END 2020-05-29 16:29 | disposition home or self-care (01) ==
LOC: NCHCN 16:28
PROVIDERS: PCP Nurse Practitioner; Visit Provider Nurse Practitioner Family
DX: I26.99 Other pulmonary embolism without acute cor pulmonale (principal); Z79.01 Long term (current) use of anticoagulants
CPT/HCPCS: 85610

== ENCOUNTER 2020-06-14 18:27 | Outpatient (REF) | payer MEDICARE, SELFPAY ==
[2020-06-14 18:49] LABS: INR 3.5 (0.9-1.1)
== END 2020-06-14 18:28 | disposition home or self-care (01) ==
LOC: LBN 18:27
PROVIDERS: PCP Nurse Practitioner; Visit Provider Nurse Practitioner Family
DX: I26.99 Other pulmonary embolism without acute cor pulmonale (principal); Z79.01 Long term (current) use of anticoagulants
CPT/HCPCS: 85610

== ENCOUNTER 2020-06-21 17:13 | Outpatient (REF) | payer MEDICARE, SELFPAY ==
[2020-06-21 20:47] LABS: INR 2.4 (0.9-1.1); Prothrombin Time 23.7 sec (9.3-11.0)
== END 2020-06-21 17:14 | disposition home or self-care (01) ==
LOC: NCHCN 17:13
PROVIDERS: PCP Nurse Practitioner; Visit Provider Nurse Practitioner Family
DX: I26.99 Other pulmonary embolism without acute cor pulmonale (principal); Z79.01 Long term (current) use of anticoagulants
CPT/HCPCS: 85610

== ENCOUNTER 2020-07-09 16:12 | Outpatient (REF) | payer MEDICARE, SELFPAY ==
[2020-07-09 21:52] LABS: Prothrombin Time 27.9 sec (9.3-11.0)
[2020-07-09 21:54] LABS: INR 2.8 (0.9-1.1)
== END 2020-07-09 16:13 | disposition home or self-care (01) ==
LOC: NCHCN 16:12
PROVIDERS: PCP Nurse Practitioner; Visit Provider Nurse Practitioner Family
DX: I26.99 Other pulmonary embolism without acute cor pulmonale (principal); Z79.01 Long term (current) use of anticoagulants
CPT/HCPCS: 85610

== ENCOUNTER 2020-07-26 14:06 | Outpatient (REF) | payer MEDICARE, SELFPAY ==
[2020-07-26 19:27] LABS: INR 1.5 (0.9-1.1); Prothrombin Time 15.2 sec (9.3-11.0)
== END 2020-07-26 14:07 | disposition home or self-care (01) ==
LOC: LBN 14:06
PROVIDERS: PCP Nurse Practitioner; Visit Provider Physician Assistant Medical
DX: I26.99 Other pulmonary embolism without acute cor pulmonale (principal); Z79.01 Long term (current) use of anticoagulants
CPT/HCPCS: 85610

== ENCOUNTER 2020-07-31 18:33 | Outpatient (REF) | payer MEDICARE, SELFPAY ==
[2020-07-31 21:21] LABS: INR 2.2 (0.9-1.1); Prothrombin Time 21.5 sec (9.3-11.0)
== END 2020-07-31 18:34 | disposition home or self-care (01) ==
LOC: NCHCN 18:33
PROVIDERS: PCP Nurse Practitioner; Visit Provider Family Medicine
DX: I26.99 Other pulmonary embolism without acute cor pulmonale (principal); Z79.01 Long term (current) use of anticoagulants
CPT/HCPCS: 85610

== ENCOUNTER 2020-08-07 15:54 | Outpatient (REF) | payer MEDICARE, SELFPAY ==
[2020-08-07 20:54] LABS: Prothrombin Time 19.6 sec (9.3-11.0)
== END 2020-08-07 15:55 | disposition home or self-care (01) ==
LOC: NCHCN 15:54
PROVIDERS: PCP Nurse Practitioner; Visit Provider Family Medicine
DX: I26.99 Other pulmonary embolism without acute cor pulmonale (principal); Z79.01 Long term (current) use of anticoagulants
CPT/HCPCS: 85610

== ENCOUNTER 2020-08-16 13:29 | Outpatient (REF) | payer MEDICARE, SELFPAY ==
[2020-08-16 20:47] LABS: Prothrombin Time 19.9 sec (9.3-11.0)
== END 2020-08-16 13:30 | disposition home or self-care (01) ==
LOC: NCHCN 13:29
PROVIDERS: PCP Nurse Practitioner; Visit Provider Physician Assistant Medical
DX: I26.99 Other pulmonary embolism without acute cor pulmonale (principal); Z79.01 Long term (current) use of anticoagulants
CPT/HCPCS: 85610

== ENCOUNTER → 2020-08-17 09:49 | Outpatient (BNVA) | payer MEDICARE, SELFPAY | PROVIDERS: PCP Nurse Practitioner; Referring Provider Nurse Practitioner; Visit Provider Internal Medicine Cardiovascular Disease | DX: I10 Essential (primary) hypertension (principal); E78.5 Hyperlipidemia, unspecified; Z95.2 Presence of prosthetic heart valve; Z86.79 Personal history of other diseases of the circulatory system; M32.9 Systemic lupus erythematosus, unspecified; I63.9 Cerebral infarction, unspecified | CPT/HCPCS: 99214; 99213 ==

== ENCOUNTER 2020-08-22 17:41 | Outpatient (REF) | payer MEDICARE, SELFPAY ==
[2020-08-22 20:59] LABS: Prothrombin Time 21.2 sec (9.3-11.0)
[2020-08-22 21:15] LABS: INR 2.1 (0.9-1.1)
== END 2020-08-22 17:42 | disposition home or self-care (01) ==
LOC: LBN 17:41
PROVIDERS: PCP Nurse Practitioner; Visit Provider Family Medicine
DX: I63.9 Cerebral infarction, unspecified (principal); Z79.01 Long term (current) use of anticoagulants
CPT/HCPCS: 85610

== ENCOUNTER 2020-08-28 15:00 | Outpatient (REF) | payer MEDICARE, SELFPAY ==
[2020-08-28 16:11] LABS: TSH (W/Ref FT4) 2.13 uIU/mL (0.36-3.74)
== END 2020-08-28 15:01 | disposition home or self-care (01) ==
LOC: NCHCN 15:00
PROVIDERS: PCP Nurse Practitioner; Visit Provider Nurse Practitioner
DX: E03.9 Hypothyroidism, unspecified (principal)
CPT/HCPCS: 84443

== ENCOUNTER 2020-09-06 16:31 | Outpatient (REF) | payer MEDICARE, SELFPAY ==
[2020-09-06 20:48] LABS: INR 2.7 (0.9-1.1); Prothrombin Time 26.3 sec (9.3-11.0)
== END 2020-09-06 16:32 | disposition home or self-care (01) ==
LOC: NCHCN 16:31
PROVIDERS: PCP Nurse Practitioner; Visit Provider Physician Assistant Medical
DX: Z79.01 Long term (current) use of anticoagulants (principal); Z95.4 Presence of other heart-valve replacement; I48.91 Unspecified atrial fibrillation
CPT/HCPCS: 85610

== ENCOUNTER 2020-09-20 08:31 | Outpatient (REF) | payer MEDICARE, SELFPAY ==
[2020-09-20 21:19] LABS: Prothrombin Time 19.3 sec (9.3-11.0)
[2020-09-20 21:24] LABS: INR 1.9 (0.9-1.1)
== END 2020-09-21 13:11 | disposition home or self-care (01) ==
LOC: LBN 08:31
PROVIDERS: PCP Nurse Practitioner; Visit Provider Physician Assistant Medical
DX: I48.91 Unspecified atrial fibrillation (principal); Z95.4 Presence of other heart-valve replacement; Z79.01 Long term (current) use of anticoagulants
CPT/HCPCS: 85610

== ENCOUNTER 2020-10-17 12:31 | Outpatient (REF) | payer MEDICARE, SELFPAY ==
[2020-10-17 14:39] LABS: Prothrombin Time 12.5 sec (9.3-11.0)
[2020-10-17 14:41] LABS: INR 1.2 (0.9-1.1)
== END 2020-10-17 12:32 | disposition home or self-care (01) ==
LOC: LBN 12:31
PROVIDERS: PCP Nurse Practitioner; Visit Provider Physician Assistant Medical
DX: I42.9 Cardiomyopathy, unspecified (principal); Z95.2 Presence of prosthetic heart valve; Z79.01 Long term (current) use of anticoagulants
CPT/HCPCS: 85610

== ENCOUNTER 2020-10-22 14:50 | Outpatient (REF) | payer MEDICARE, SELFPAY ==
[2020-10-22 21:15] LABS: INR 2.4 (0.9-1.1)
== END 2020-10-22 14:51 | disposition home or self-care (01) ==
LOC: LBN 14:50
PROVIDERS: PCP Nurse Practitioner; Visit Provider Physician Assistant Medical
DX: R30.0 Dysuria (principal); I26.99 Other pulmonary embolism without acute cor pulmonale; Z79.01 Long term (current) use of anticoagulants
CPT/HCPCS: 85610; 87086

== ENCOUNTER 2020-10-26 20:01 | Outpatient (REF) | payer MEDICARE, SELFPAY ==
[2020-10-26 21:01] LABS: INR 3.7 (0.9-1.1); Prothrombin Time 35.9 sec (9.3-11.0)
== END 2020-10-26 20:02 | disposition home or self-care (01) ==
LOC: LBN 20:01
PROVIDERS: PCP Nurse Practitioner; Visit Provider Physician Assistant Medical
DX: I42.9 Cardiomyopathy, unspecified (principal); Z95.4 Presence of other heart-valve replacement; Z79.01 Long term (current) use of anticoagulants
CPT/HCPCS: 85610

== ENCOUNTER 2020-11-09 14:19 | Outpatient (REF) | payer MEDICARE, SELFPAY ==
[2020-11-09 20:00] LABS: Abs Immature Grans 0.04 10^3/uL (0.0-0.06); Absolute Basophil Count 0.07 10^3/uL (0.0-0.2); Absolute Monocyte Count 0.79 10^3/uL (0.1-0.8); Absolute Neutrophil Count 6.75 10^3/uL (1.2-6.7); Basophils % 0.7; HCT 40.9 % (36.0-46.0); HGB 13.7 g/dL (11.2-15.7); Immature Grans % 0.4; Lymphocytes % 20.9; MCH 31.6 pg (27.0-33.0); MCHC 33.5 % (32.0-36.0); MCV 94.5 fL (80-95); MPV 10.7 fL (8.0-11.0); Monocytes % 7.9; Neutrophils % 67.1; Nucleated RBC 0 %; Platelet Count 300 10^3/uL (130-400); RBC 4.33 10^6/uL (3.93-5.22); RDW 12.8 % (11.7-14.6); RDW-SD 44.3 fL; WBC 10.05 10^3/uL (4.4-10.8)
[2020-11-09 20:14] LABS: ALT 26 U/L (14-59); AST 29 U/L (15-37); Albumin 3.7 g/dL (3.4-5.0); Alkaline Phosphatase 151 U/L (46-116); Anion Gap 8.1 mmol/L (3-11); BUN 12 mg/dL (7-18); Bilirubin, Total 0.4 mg/dL (0.2-1.0); CO2 28.9 mmol/L (21.0-32.0); CREATININE 0.8 mg/dL (0.55-1.02); Calcium 8.6 mg/dL (8.5-10.1); Chloride 104 mmol/L (98-107); Glucose 90 mg/dL (74-106); Potassium 4.2 mmol/L (3.5-5.1); Sodium 141 mmol/L (136-145); Total Protein 7.3 g/dL (6.4-8.2)
== END 2020-11-09 14:20 | disposition home or self-care (01) ==
LOC: LBN 14:19
PROVIDERS: PCP Nurse Practitioner; Visit Provider Physician Assistant Medical
DX: R31.9 Hematuria, unspecified (principal); Z79.01 Long term (current) use of anticoagulants; I26.99 Other pulmonary embolism without acute cor pulmonale
CPT/HCPCS: 80053; 85025; 87086

== ENCOUNTER 2020-11-11 23:02 | Emergency (ER) | payer MEDICARE, MEDICAID, SELFPAY ==
[2020-11-11 23:10] VITALS: BP 167/89; PULSE 85; RESP 20; TEMP 36.2; O2SAT 97
--- NOTE | 2020-11-11 23:11 | W.ED.GENAD ---
Discharge Plan Disposition Patient Disposition: HOME Condition: Improving Discharge Details Clinical Impression: Renal colic Primary Care Provider: Mckenna Genao ED Provider: Dallas Peterson Home Meds and New Rx's Prescriptions: Continued aspirin 81 mg tablet,chewable 81 mg PO DAILY RF: 0 lisinopril 5 mg tablet 5 mg PO DAILY Qty: 90 RF: 4 metoprolol succinate 25 mg tablet extended release 24 hr 25 mg PO DAILY Qty: 90 RF: 6 levothyroxine 25 MCG tablet 25 mcg PO DAILY Qty: 60 RF: 1 warfarin [Coumadin] 1 MG tablet 5 - 7.5 mg PO DAILY RF: 0 cetirizine 10 MG tablet 10 mg PO PRN PRNRF: 0 hydroxychloroquine 200 MG tablet 200 mg PO BID RF: 0 Multiple Vitamin, Womens Tablet 1 ea PO DAILY RF: 0 pantoprazole 40 mg tablet,delayed release (DR/EC) 40 mg PO BID PRN PRNRF: 0 albuterol sulfate 90 mcg/actuation HFA aerosol inhaler 2 inh INHALATION Q4H PRN PRNRF: 0 fluoxetine 20 mg capsule 40 mg PO DAILY RF: 0 Flovent HFA 110 mcg/actuation HFA aerosol inhaler 2 inh INHALATION DAILY RF: 0 Discharge Instructions Instructions: Abdominal Pain (ED) Additional Instructions: Home to rest tonight. Continue previously prescribed medications. You do not have evidence of urinary tract infection tonight but should finish at least 5 total days of antibiotics. We will ask our care managers to arrange a follow-up for you in urology clinic. Return to the emergency department for any acute concerns. Your INR tonight was 2.8. Medical Decision Making 50-year-old female presents with recurrent right flank pain this evening. She states that she had some aching pain earlier in the week, was seen in urgent care on Thursday and placed on antibiotic. Now with recurrence of severe right abdominal and flank pain this evening. She arrives in moderate to severe distress, slightly hypertensive. She is tender in the right lower quadrant but does not have rebound or guarding present. Most consistent with acute renal colic. Patient IV access established, given small fluid bolus, antiemetic, parenteral analgesia and referred for labs and CT imaging. No evidence of urinary tract infection. There is hematuria present. Labs otherwise reassuring. CT shows mild to moderate hydronephrosis and hydroureter without ureteral stone or bladder calculus. May represent vesicoureteral reflux. Patient's pain improved. She does not have evidence of infection. She may have passed a kidney stone given her symptoms and location of pain on the right. We will have her follow-up in urology clinic. Will offer analgesia for home if needed. Lab Data Lab results reviewed: Yes I reviewed the patient's lab results. Labs: Laboratory Results - last 24 hr 11/11/20 11/11/20 11/11/20 23:20 23:35 23:35 WBC 10.11 RBC 3.97 Hgb 12.5 Hct 37.1 MCV 93.5 MCH 31.5 MCHC 33.7 RDW 12.9 Plt Count 291 MPV 10.0 Immature Gran % 0.6 Neutrophils % 61.4 Lymphocytes % 26.3 Monocytes % 7.4 Eosinophils % 3.4 Basophils % 0.9 Nucleated RBC % 0 Absolute Neutrophils 6.21 Absolute Lymphocytes 2.66 Absolute Monocytes 0.75 Absolute Eosinophils 0.34 Absolute Basophils 0.09 PT INR Sodium 144 Potassium 4.0 Chloride 108 H Carbon Dioxide 27.6 Anion Gap 8.4 BUN 18 D Creatinine 1.0 Estimated GFR/1.73 m2 59.18 Glucose 141 H Calcium 8.8 Total Bilirubin 0.3 AST 23 ALT 24 Alkaline Phosphatase 137 H Total Protein 7.6 Albumin 3.5 Urine Color [place] Urine Clarity Cloudy Urine pH 5.0 Ur Specific [place] >= 1.030 H Urine Protein >=300 H Urine Ketones Trace H Urine Blood Large H Urine Nitrite Negative Urine Bilirubin Small H Urine Urobilinogen 1.0 H Ur Leukocyte Esterase Negative Urine RBC >50 H Urine WBC Ur Epithelial Cells Urine Crystals Not Applicable Urine Bacteria Urine Mucus Not Applicable Ur Culture Indicated? Yes Urine Glucose Negative 11/11/20 23:35 WBC RBC Hgb Hct MCV MCH MCHC RDW Plt Count MPV Immature Gran % Neutrophils % Lymphocytes % Monocytes % Eosinophils % Basophils % Nucleated RBC % Absolute Neutrophils Absolute Lymphocytes Absolute Monocytes Absolute Eosinophils Absolute Basophils PT 27.4 H INR 2.8 H Sodium Potassium Chloride Carbon Dioxide Anion Gap BUN Creatinine Estimated GFR/1.73 m2 Glucose Calcium Total Bilirubin AST ALT Alkaline Phosphatase Total Protein Albumin Urine Color Urine Clarity Urine pH Ur Specific [place] Urine Protein Urine Ketones Urine Blood Urine Nitrite Urine Bilirubin Urine Urobilinogen Ur Leukocyte Esterase Urine RBC Urine WBC Ur Epithelial Cells Urine Crystals Urine Bacteria Urine Mucus Ur Culture Indicated? Urine Glucose HPI General Mode of arrival: ambulatory. Date/Time Provider Initiated Documentation: 11/11/20 23:04. Limitations to Documentation: no limitations. Information obtained by: patient. History of Present Illness 50 year old F presents to the emergency department with the chief complaint of Right flank pain, described as moderate, and is localized to the back and right. Patient started experiencing this hour(s) and it has been constant. No relieving factors improve symptom(s), No exacerbating factors reported . Patient did receive the following treatments prior to arrival, other (Recently seen at urgent care, diagnosed with UTI and taking antibiotics.) Related Data Home Medications Medication Instructions Recorded Confirmed warfarin [Coumadin] 5 - 7.5 mg PO DAILY 08/18/12 04/12/20 cetirizine 10 mg PO PRN PRN 02/27/16 11/11/20 hydroxychloroquine 200 mg PO BID 02/27/16 11/11/20 levothyroxine 25 mcg PO DAILY #60 tab 03/05/17 11/11/20 Multiple Vitamin, Womens 1 ea PO DAILY 12/25/17 11/11/20 aspirin 81 mg chewable tablet 81 mg PO DAILY 02/17/18 11/11/20 Flovent HFA 2 inh INHALATION DAILY 03/18/20 11/11/20 albuterol sulfate 2 inh INHALATION Q4H PRN PRN 03/18/20 11/11/20 fluoxetine 40 mg PO DAILY 03/18/20 11/11/20 pantoprazole 40 mg PO BID PRN PRN 03/18/20 11/11/20 lisinopril 5 mg tablet 5 mg PO DAILY #90 tab 08/17/20 11/11/20 metoprolol succinate 25 mg 25 mg PO DAILY #90 tab 08/17/20 11/11/20 tablet,extended release 24 hr Previous Rx's Medication Instructions Recorded levothyroxine 25 mcg PO DAILY #60 tab 03/05/17 lisinopril 5 mg tablet 5 mg PO DAILY #90 tab 08/17/20 metoprolol succinate 25 mg 25 mg PO DAILY #90 tab 08/17/20 tablet,extended release 24 hr Allergies Allergy/AdvReac Type Severity Reaction Status Date / Time tramadol AdvReac Intermediate GI Upset Verified 11/11/20 23:26 General RACHELLE: 2 Review of Systems Narrative: No vomiting. Denies recent illness. See HPI. 8 systems reviewed and otherwise negative. [facility] Medical History Allergic rhinitis Antiphospholipid antibody syndrome Aortic insufficiency Cardiomyopathy CHF (congestive heart failure) Combined abdominal and pelvic pain 2014. Pt had neg Wireless Manager eval. CT of abd showed diverticulosis w/o diverticulitis of colon. Depression Depressive disorder Diverticulosis of colon noted on CT of abd as eval for abd and pelvic pain. Fatty infiltration of liver nl LFTs with exception of Alk Phosphatase. GERD (gastroesophageal reflux disease) Hiatal hernia Seen on EGD with Dr Fofana on 12/29/17, he recommended a barium swallow Hyperlipidemia Hypertension Insomnia Labial lesion Late effects of CVA (cerebrovascular accident) Lupus Hx of CVA, antiphospholipid AB, CHF. On chronic anticoagulation. Migraine Migraine Sleep apnea Surgical History Dilation and curettage 1989 Endometrial Ablation 2003 H/O aortic valve replacement History of esophagogastroduodenoscopy (EGD) (12/29/17) Dr Fofana, hiatal hernia - recommends barium swallow. Replacement of total knee joint 2004 bilateral Family History Mother Osteoporosis Father Hyperlipidemia Grandmother Heart disease Social History Smoking/Tobacco Use Status: Former Tobacco Use Quit Date: 04/06/91 Tobacco: How many years used: 2 Smoking risk assessment performed?: Yes Alcohol Intake: never Drug use: Never Substance use type: does not use What type of physical activity do you participate in: walking Do you feel safe at home: Yes Do you feel safe in your relationship?: Yes Exam Narrative Exam Narrative: GEN: awake, alert, oriented 3. Pleasant, well groomed, interactive. HEAD: Normocephalic, atraumatic ENT: Mucous membranes moist, External ear exam unremarkable EYES: PERRL, EOMI NECK: Full ROM, no RONALD, no menigismus CHEST/RESP: Nontender, clear to auscultation bilateral, no wheeze/rhonchi/rales CARDIOVASCULAR: RRR, mechanical click present. 2+ Rad pulse bilateral ABDOMEN: Soft, right lower quadrant tenderness without rebound, no mass. +Bowel sounds EXT: Full ROM, no edema, no rash Neuro: Grossly normal neurologic exam, conversant, interactive. Psych: Speech fluent, thoughts congruent, affect anxious
[2020-11-11] MEDS: Normal Saline 1,000 ML 1000 ML IV (23:35)
[2020-11-11 23:39] LABS: Abs Immature Grans 0.06 10^3/uL (0.0-0.06); Absolute Basophil Count 0.09 10^3/uL (0.0-0.2); Absolute Eosinophil Count 0.34 10^3/uL (0.0-0.7); Absolute Lymphocyte Count 2.66 10^3/uL (1.2-3.4); Absolute Monocyte Count 0.75 10^3/uL (0.1-0.8); Absolute Neutrophil Count 6.21 10^3/uL (1.2-6.7); Basophils % 0.9; Eosinophils % 3.4; HCT 37.1 % (36.0-46.0); HGB 12.5 g/dL (11.2-15.7); Immature Grans % 0.6; Lymphocytes % 26.3; MCH 31.5 pg (27.0-33.0); MCHC 33.7 % (32.0-36.0); MCV 93.5 fL (80-95); Monocytes % 7.4; Neutrophils % 61.4; Nucleated RBC 0 %; Platelet Count 291 10^3/uL (130-400); RBC 3.97 10^6/uL (3.93-5.22); RDW 12.9 % (11.7-14.6); RDW-SD 44.1 fL; WBC 10.11 10^3/uL (4.4-10.8)
[2020-11-11 23:44] LABS: Bilirubin Small (Negative); Blood Large (Negative); Clarity Cloudy (Clear); Glucose Negative (Negative); Ketones Trace mg/dL (Negative); Leukocyte Esterase Negative (Negative); Nitrite Negative (Negative); Specific Gravity >= 1.030 (1.005-1.025)
[2020-11-11 23:45] VITALS: BP 141/97; PULSE 78; RESP 18; O2SAT 97
[2020-11-11] MEDS: Ondansetron 4 MG/2 ML VIAL IVP (23:45)
[2020-11-11] MEDS: HYDROmorphone 2 MG/ML VIAL 1 MG IVP (23:47)
[2020-11-11 23:51] LABS: RBC >50 HPF (0-2)
[2020-11-11 23:52] LABS: C & S Indicated? Yes
[2020-11-11 23:54] LABS: ALT 24 U/L (14-59); AST 23 U/L (15-37); Albumin 3.5 g/dL (3.4-5.0); Alkaline Phosphatase 137 U/L (46-116); Anion Gap 8.4 mmol/L (3-11); BUN 18 mg/dL (7-18); Bilirubin, Total 0.3 mg/dL (0.2-1.0); CO2 27.6 mmol/L (21.0-32.0); Calcium 8.8 mg/dL (8.5-10.1); Chloride 108 mmol/L (98-107); Estimated GFR 59.18 (mL/min/1.73m2); Glucose 141 mg/dL (74-106); Sodium 144 mmol/L (136-145); Total Protein 7.6 g/dL (6.4-8.2)
[2020-11-11 23:55] LABS: INR 2.8 (0.9-1.1); Prothrombin Time 27.4 sec (9.3-11.0)
--- NOTE | 2020-11-11 23:55 | DI.CT_ITS ---
Exam(s) CT RENAL COLIC WO EXAM: CT RENAL COLIC WO CLINICAL HISTORY: FLank pain, hematuria. TECHNIQUE: Imaging Protocol: Axial computed tomography images with coronal and sagittal reformatted images were created and reviewed. CONTRAST MATERIAL: Noncontrast COMPARISON: CT CT CHEST PE CTA from 03/18/2020 FINDINGS: ABDOMEN: Lung Bases: Normal where visualized. Liver: Normal attenuation. No measurable mass. Gallbladder and biliary tract: Small stones. No wall thickening or biliary dilation. Pancreas: Normal density, no calcifications or inflammatory process. Spleen: Normal. Kidneys: Multiple bilateral renal cysts. Mild dilatation of the right renal pelvis and upper right u reter without visible stone. Adrenal glands: No masses seen. Abdominal Aorta: Abdominal portion non-dilated. PELVIS: Bladder: Symmetric distention, no gross wall thickening. Bowel: Diverticulosis throughout the colon, most prominent in the sigmoid. No evidence of diverticul itis. No obstruction or bowel wall thickening. Peritoneal cavity: No ascites, collection or mesenteric inflammatory response. Bones: Within normal limits. IMPRESSION: Multiple bilateral renal cysts. No nephrolithiasis.. Mild dilatation right renal pelvis and proxima l ureter without visible obstructing stone. RADIATION DOSE DELIVERED: 1,015.63mGy.cm Total DLP DATA REPOSITORY: All CT scans at this facility are submitted to the National Radiology Data Registry (NRDR) Dose Index Registry (DIR) with the [employer] (ACR). RADIATION OPTIMIZATION: All CT scans at this facility use at least one of these dose optimization te chniques: automated exposure control; mA and/or kV adjustment per patient size (includes targeted exa ms where dose is matched to clinical indication); or iterative reconstruction.
[2020-11-12] MEDS: HYDROmorphone 2 MG/ML VIAL 0.5 MG IVP (00:13)
[2020-11-12 00:30] VITALS: BP 103/58; PULSE 76; RESP 18; O2SAT 95
[2020-11-12 00:45] VITALS: BP 107/54; PULSE 83; RESP 18; O2SAT 96
--- NOTE | 2020-11-12 00:58 | DI.VRAD_ITS ---
PROCEDURE INFORMATION: Exam: CT Abdomen And Pelvis Without Contrast Exam date and time: 11/11/2020 11:10 PM Age: 50 years old Clinical indication: Patient HX: Flank pain, hematuria TECHNIQUE: Imaging protocol: Computed tomography of the abdomen and pelvis without contrast. Radiation optimization: All CT scans at this facility use at least one of these dose optimization techniques: automated exposure control; mA and/or kV adjustment per patient size (includes targeted exams where dose is matched to clinical indication); or iterative reconstruction. COMPARISON: CT ABD PELVIS WITH CONTRAST 09/21/2014 8:53 AM FINDINGS: Liver: Normal. No mass. Gallbladder and bile ducts: Cholelithiasis is present without evidence for gallbladder wall thickening. Pancreas: Normal. No ductal dilation. Spleen: Normal. No splenomegaly. Adrenal glands: Normal. No mass. Kidneys and ureters: [id number] bilateral hydronephrosis and hydroureter without ureteral stone or bladder calculus. The findings may reflect vesicoureteral reflux. Further evaluation recommended if symptoms of worsening renal function or renal colic are present. Bilateral simple renal cysts measure up to 3.2 cm on the left Stomach and bowel: Colonic diverticulosis is present without evidence for inflammation. Appendix: No evidence of appendicitis. Intraperitoneal space: Unremarkable. No free air. No significant fluid collection. Vasculature: Unremarkable. No abdominal aortic aneurysm. Lymph nodes: Unremarkable. No enlarged lymph nodes. Urinary bladder: Unremarkable as visualized. Reproductive: Unremarkable as visualized. Bones/joints: Unremarkable. No acute fracture. Soft tissues: Unremarkable. IMPRESSION: [id number] bilateral hydronephrosis and hydroureter without ureteral stone or bladder calculus. The findings may reflect vesicoureteral reflux. Further evaluation recommended if symptoms of worsening renal function or renal colic are present. Dictated and Authenticated by: Gary Ha MD. Ordering:MALCOLM Haynes MD
[2020-11-12 01:00] VITALS: BP 114/82; PULSE 83; RESP 16; O2SAT 94
--- NOTE | 2020-11-12 01:07 | NUR.NOTE ---
Nursing Note: Referral faxed to Urology for follow up care regarding emergency department visit as requested by Dr. Peterson.
[2020-11-12 01:20] VITALS: BP 109/72; PULSE 81; RESP 18; O2SAT 92
== END 2020-11-12 01:30 | disposition home or self-care (01) ==
PROVIDERS: Emergency Provider Emergency Medicine; PCP Nurse Practitioner
DX: N23 Unspecified renal colic (principal); R31.9 Hematuria, unspecified; N13.30 Unspecified hydronephrosis
CPT/HCPCS: 36415; 80053; 81025; 96361; 96374; 96375; 96376; 99284; 74176; 81003; 81015; 85025; 85610; 87086; J2405

== ENCOUNTER 2020-11-21 12:54 | Outpatient (REF) | payer MEDICARE, SELFPAY ==
[2020-11-21 14:12] LABS: Prothrombin Time 60.1 sec (9.3-11.0)
[2020-11-21 15:00] LABS: INR 6.3 (0.9-1.1)
== END 2020-11-21 12:55 | disposition home or self-care (01) ==
LOC: LBN 12:54
PROVIDERS: PCP Nurse Practitioner; Visit Provider Physician Assistant Medical
DX: I42.8 Other cardiomyopathies (principal); Z95.4 Presence of other heart-valve replacement; Z79.01 Long term (current) use of anticoagulants
CPT/HCPCS: 85610

== ENCOUNTER 2020-11-23 10:38 | Outpatient (REF) | payer MEDICARE, SELFPAY ==
[2020-11-23 14:56] LABS: INR 2.5 (0.9-1.1); Prothrombin Time 24.8 sec (9.3-11.0)
== END 2020-11-23 10:39 | disposition home or self-care (01) ==
LOC: LBN 10:38
PROVIDERS: Internal Medicine Cardiovascular Disease; PCP Nurse Practitioner; Visit Provider Physician Assistant Medical
DX: D68.61 Antiphospholipid syndrome (principal)
CPT/HCPCS: 85610

== ENCOUNTER 2020-11-30 05:08 | Outpatient (REF) | payer MEDICARE, SELFPAY ==
[2020-11-29 21:18] LABS: INR 4.8 (0.9-1.1)
== END 2020-11-30 05:09 | disposition home or self-care (01) ==
LOC: LBN 05:08
PROVIDERS: PCP Nurse Practitioner; Visit Provider Internal Medicine Cardiovascular Disease
DX: D68.61 Antiphospholipid syndrome (principal)
CPT/HCPCS: 85610

== ENCOUNTER 2020-12-03 15:10 | Outpatient (REF) | payer MEDICARE, SELFPAY ==
[2020-12-04 14:26] LABS: INR 1.3 (0.9-1.1)
== END 2020-12-03 15:11 | disposition home or self-care (01) ==
LOC: LBN 15:10
PROVIDERS: PCP Nurse Practitioner; Visit Provider Internal Medicine Cardiovascular Disease
DX: D68.61 Antiphospholipid syndrome (principal)
CPT/HCPCS: 85610

== ENCOUNTER 2020-12-11 13:39 | Outpatient (REF) | payer MEDICARE, SELFPAY ==
[2020-12-11 19:08] LABS: Prothrombin Time 40.5 sec (9.3-11.0)
[2020-12-11 19:37] LABS: INR 4.2 (0.9-1.1)
== END 2020-12-11 13:40 | disposition home or self-care (01) ==
LOC: LBN 13:39
PROVIDERS: PCP Nurse Practitioner; Visit Provider Internal Medicine Cardiovascular Disease
DX: D68.61 Antiphospholipid syndrome (principal)
CPT/HCPCS: 85610

== ENCOUNTER 2021-01-08 15:19 | Outpatient (REF) | payer MEDICARE, SELFPAY ==
[2021-01-08 22:08] LABS: INR 3.3 (0.9-1.1)
== END 2021-01-08 15:20 | disposition home or self-care (01) ==
LOC: LBN 15:19
PROVIDERS: Internal Medicine Cardiovascular Disease; PCP Nurse Practitioner; Visit Provider Nurse Practitioner
DX: D68.61 Antiphospholipid syndrome (principal)
CPT/HCPCS: 85610

== ENCOUNTER 2021-01-24 19:47 | Emergency (ER) | payer MEDICARE, MEDICAID, SELFPAY ==
[2021-01-24] VITALS (11 sets, daily range): BP systolic 90–109; BP diastolic 37–79; PULSE 66–87; RESP 18; TEMP 36.6; O2SAT 90–97
--- NOTE | 2021-01-24 20:20 | ED.GENADUL_ITS ---
Discharge Plan Disposition Patient Disposition: HOSPITAL, NON-SPECIFIC Condition: Stable Discharge Details Clinical Impression: Terminal ileitis, Supratherapeutic INR Primary Care Provider: Mckenna Genao ED Provider: Andi Heard and New Rx's Prescriptions: No Action aspirin 81 mg tablet,chewable 81 mg PO DAILY RF: 0 lisinopril 5 mg tablet 5 mg PO DAILY Qty: 90 RF: 4 metoprolol succinate 25 mg tablet extended release 24 hr 25 mg PO DAILY Qty: 90 RF: 6 levothyroxine 25 MCG tablet 25 mcg PO DAILY Qty: 60 RF: 1 warfarin [Coumadin] 1 MG tablet 5 - 7.5 mg PO DAILY RF: 0 cetirizine 10 MG tablet 10 mg PO PRN PRNRF: 0 hydroxychloroquine 200 MG tablet 200 mg PO BID RF: 0 Multiple Vitamin, Womens Tablet 1 ea PO DAILY RF: 0 pantoprazole 40 mg tablet,delayed release (DR/EC) 40 mg PO BID PRN PRNRF: 0 albuterol sulfate 90 mcg/actuation HFA aerosol inhaler 2 inh INHALATION Q4H PRN PRNRF: 0 fluoxetine 20 mg capsule 40 mg PO DAILY RF: 0 Flovent HFA 110 mcg/actuation HFA aerosol inhaler 2 inh INHALATION DAILY RF: 0 Medical Decision Making History and exam consistent with acute appendicitis. Will establish IV and start fluids. Medicate for nausea and pain. Laboratory studies and CT scan ordered. Laboratory studies significant for markedly elevated INR which was repeated and confirmed. She is not having any active bleeding. Hemoglobin is normal. White count is elevated. CT scan shows a normal appendix. She does have terminal ileitis of unclear etiology. Will hold off reversing her Coumadin given her history of CVA and PE and mechanical valve. Does need admission for fluid, pain control, probable endoscopy. No beds available here. Bed available and hospitalist accepted patient to [facility] in [place]. Patient has remained stable. After discussion with hospitalist will get blood cultures and dose with Zosyn on chance this is infectious to prevent any seeding of her mechanical valve. Patient to be transported by ambulance and is aware of need and reason for transfer. Medical Records Medical records reviewed: Yes I reviewed the patient's medical records. Lab Data Lab results reviewed: Yes I reviewed the patient's lab results. Lab results narrative: Supratherapeutic INR, elevated white count, normal chemistry ECG Data Attestation: I personally reviewed and interpreted this ECG (s) as follows: Prior ECG tracings: available for review Interpretation: see EKG, Unchanged HPI General Mode of arrival: ambulatory . Date/Time Provider Initiated Documentation: 01/24/21 19:49 . Limitations to Documentation: no limitations . Information obtained by: patient, RN notes reviewed and old records reviewed . HPI Narrative: Patient presents to ED with right lower quadrant abdominal pain that started yesterday evening and has progressively worsened over the course of 24 hours. She has associated low-grade fever, nausea/vomiting, difficulty ambulating due to abdominal pain. She denies any urinary symptoms. She denies any chest pain, shortness of breath, cough. Movement, hitting bumps, lying flat exacerbates her pain. Sitting still with knees and hip flexed helps relieve the pain. Related Data Home Medications Medication Instructions Recorded Confirmed warfarin [Coumadin] 5 - 7.5 mg PO DAILY 08/18/12 01/24/21 cetirizine 10 mg PO PRN PRN 02/27/16 01/24/21 hydroxychloroquine 200 mg PO BID 02/27/16 01/24/21 levothyroxine 25 mcg PO DAILY #60 tab 03/05/17 01/24/21 Multiple Vitamin, Womens 1 ea PO DAILY 12/25/17 01/24/21 aspirin 81 mg chewable tablet 81 mg PO DAILY 02/17/18 01/24/21 Flovent HFA 2 inh INHALATION DAILY 03/18/20 01/24/21 albuterol sulfate 2 inh INHALATION Q4H PRN PRN 03/18/20 01/24/21 fluoxetine 40 mg PO DAILY 03/18/20 01/24/21 pantoprazole 40 mg PO BID PRN PRN 03/18/20 01/24/21 lisinopril 5 mg tablet 5 mg PO DAILY #90 tab 08/17/20 01/24/21 metoprolol succinate 25 mg 25 mg PO DAILY #90 tab 08/17/20 01/24/21 tablet,extended release 24 hr Previous Rx's Medication Instructions Recorded levothyroxine 25 mcg PO DAILY #60 tab 03/05/17 lisinopril 5 mg tablet 5 mg PO DAILY #90 tab 08/17/20 metoprolol succinate 25 mg 25 mg PO DAILY #90 tab 08/17/20 tablet,extended release 24 hr Allergies Allergy/AdvReac Type Severity Reaction Status Date / Time tramadol AdvReac Intermediate GI Upset Verified 01/24/21 20:28 General Stated Complaint: Abd Prob RACHELLE: 3 Review of Systems Narrative: 01/17 Review of Systems completed and is negative except as stated above in HPI (Systems reviewed: Const, Eyes, ENT, Resp, CV, GI, , MSK, Skin, Neuro) PFSH Medical History Allergic rhinitis Antiphospholipid antibody syndrome Aortic insufficiency Cardiomyopathy CHF (congestive heart failure) Combined abdominal and pelvic pain 2014. Pt had neg Skilled Nursing Case Manager eval. CT of abd showed diverticulosis w/o diverticulitis of colon. Depression Diverticulosis of colon noted on CT of abd as eval for abd and pelvic pain. Fatty infiltration of liver nl LFTs with exception of Alk Phosphatase. GERD (gastroesophageal reflux disease) Hiatal hernia Seen on EGD with Dr Fofana on 12/29/17, he recommended a barium swallow Hyperlipidemia Hypertension Insomnia Labial lesion Late effects of CVA (cerebrovascular accident) Lupus Hx of CVA, antiphospholipid AB, CHF. On chronic anticoagulation. Migraine Pulmonary embolism Sleep apnea Surgical History Dilation and curettage 1989 Endometrial Ablation 2003 H/O aortic valve replacement History of esophagogastroduodenoscopy (EGD) (12/29/17) Dr Fofana, hiatal hernia - recommends barium swallow. Replacement of total knee joint 2004 bilateral Family History Mother Osteoporosis Father Hyperlipidemia Grandmother Heart disease Social History Smoking/Tobacco Use Status: Former Tobacco Use Quit Date: 04/06/91 Tobacco: How many years used: 2 Smoking risk assessment performed?: Yes Alcohol Intake: never Drug use: Never Substance use type: does not use What type of physical activity do you participate in: walking Do you feel safe at home: Yes Do you feel safe in your relationship?: Yes Exam Narrative Exam Narrative: Const: WDWN female in NAD. HEENT: NC/AT. Normal facial exam. Eyes: Normal conjunctiva and sclera. Neck: Supple. Trachea midline. Lungs: Normal respiratory effort. Lungs are clear. Cor: RRR without mechanical click and murmur. Good radial pulses. GI: Soft and ND. Tender with guarding and rebound in the RLQ. + Rovsing.. Neuro: A+O x 3. Normal speech, mentation, gait. Cranial nerves II - XII grossly intact. No gross motor or sensory deficit. Ext: No C/C/E. Skin: Warm and dry without rash. Course Vital Signs Vital signs: Vital Signs Temperature 97.9 F 01/24/21 20:09 Pulse 87 01/24/21 20:09 Respiratory Rate 18 01/24/21 20:09 Blood Pressure 109/79 01/24/21 20:09 Pulse Oximetry 97 01/24/21 20:09 Temperature 97.9 F 01/24/21 20:09 Temperature Source Temporal Artery Scan 01/24/21 20:09 Pulse 87 01/24/21 20:09 Respiratory Rate 18 01/24/21 20:09 Respiratory Effort 01/24/21 20:13 Blood Pressure 109/79 01/24/21 20:09 Blood Pressure Position Sitting 01/24/21 20:09 Pulse Oximetry 97 01/24/21 20:09 Oxygen Delivery Method Room Air 01/24/21 20:09 Oxygen Flow Rate 0 01/24/21 20:09 Pain Level 10 01/24/21 20:09
[2021-01-24] MEDS: Lactated Ringers 1,000 ML 125 ML IV (20:21)
--- NOTE | 2021-01-24 20:30 | DI.CT_ITS ---
Exam(s) CT ABDOMEN PELVIS W EXAM: CT ABDOMEN PELVIS W CLINICAL HISTORY: RLQ pain TECHNIQUE: Imaging Protocol: Axial computed tomography images with coronal and sagittal reformatted images were created and reviewed CONTRAST MATERIAL: Intravenous: Omnipaque 350 Contrast volume:100 mL Oral: No COMPARISON: CT CT RENAL COLIC WO from 11/12/2020 FINDINGS: ABDOMEN: Lung Bases: Small hiatal hernia. There is an aortic valve prosthesis. Liver: Normal density. There is a tiny hypodensity in the posterior aspect of the right lobe of the l iver. It is too small for further characterization but likely reflects a small cyst. Portal, Superior Mesenteric, and Splenic Veins: Unremarkable. Gallbladder and Biliary Tract: No radiodense calculus or dilation. Pancreas: Normal density, no abnormal calcifications or inflammatory process. Spleen: Normal. Adrenals: No masses seen. Kidneys: Normal size, contour and axis. No radiodense stones or obstructive uropathy. There are bilat eral simple renal cysts. No follow-up is recommended. No solid renal masses are identified. Abdominal Aorta: Abdominal portion non-dilated. Atherosclerosis. Bowel: There is diffuse thickening of the wall of the terminal ileum with surrounding soft tissue inf lammation. There is mild dilatation of the small bowel proximal to the terminal ileum. There is sto ol throughout the colon. There is diverticulosis seen throughout the colon but no evidence of acute diverticulitis. There is no evidence of appendicitis. Peritoneal Cavity: Small to moderate amount of pelvic ascites. No free air. Lymph Nodes: Within normal limits. Bones: Within normal limits for the patient's age. Soft Tissues: Unremarkable. PELVIS: Bladder: There is diffuse thickening of the wall of the urinary bladder. This may be due to underdis tention. Cystitis cannot be excluded. Reproductive Organs: Unremarkable as visualized. Lymph Nodes: Within normal limits. Bones: Within normal limits for the patient's age. IMPRESSION: 1. Terminal ileitis. This may represent an infectious or inflammatory process. Follow-up may be con sidered to document resolution of the inflammatory/infectious process. 2. Small to moderate amount of pelvic ascites. No free air or abscess. 3. Normal appendix. 4. Colonic diverticulosis, no evidence of acute diverticulitis. RADIATION DOSE DELIVERED: 1,342.65mGy.cm Total DLP DATA REPOSITORY: All CT scans at this facility are submitted to the National Radiology Data Registry (NRDR) Dose Index Registry (DIR) with the [employer] (ACR). RADIATION OPTIMIZATION: All CT scans at this facility use at least one of these dose optimization te chniques: automated exposure control; mA and/or kV adjustment per patient size (includes targeted exa ms where dose is matched to clinical indication); or iterative reconstruction.
--- NOTE | 2021-01-24 20:30 | RT.EKG_ITS ---
APPROVED REPORT Exam: Resting ECG Reason for Exam: pre op Patient Location: E HR:69 bpm ECG Measurements Heart Rate 69 AXIS TX 176 P 3 QRSd 111 QRS -22 QT 433 T 23 QTc 463 Conclusion Sinus rhythm...normal P axis, V-rate 60- 99 Probable left atrial enlargement...P >50mS, <-0.10mV V1 Left ventricular hypertrophy...multiple LVH criteria Nonspecific T abnormalities, lateral leads...T <-0.10mV, I aVL V5 V6 There are no significant changes compared to prior EKG performed on 03/18/2020 at 18:17.
[2021-01-24] MEDS: Normal Saline - Diluent 50 ML VIAL IV (20:43)
[2021-01-24] MEDS: Omnipaque 350 MG/ML 100 ML BTL IJ (20:44)
[2021-01-24 20:46] LABS: Abs Immature Grans 0.06 10^3/uL (0.0-0.06); Absolute Basophil Count 0.04 10^3/uL (0.0-0.2); Absolute Eosinophil Count 0.09 10^3/uL (0.0-0.7); Absolute Lymphocyte Count 1.37 10^3/uL (1.2-3.4); Absolute Monocyte Count 1.16 10^3/uL (0.1-0.8); Absolute Neutrophil Count 10.13 10^3/uL (1.2-6.7); Basophils % 0.3; Eosinophils % 0.7; HCT 40.7 % (36.0-46.0); HGB 13.7 g/dL (11.2-15.7); Immature Grans % 0.5; Lymphocytes % 10.7; MCH 31.3 pg (27.0-33.0); MCHC 33.7 % (32.0-36.0); MCV 92.9 fL (80-95); MPV 10.2 fL (8.0-11.0); Neutrophils % 78.8; Nucleated RBC 0 %; Platelet Count 296 10^3/uL (130-400); RBC 4.38 10^6/uL (3.93-5.22); RDW 12.8 % (11.7-14.6); RDW-SD 44.6 fL; WBC 12.85 10^3/uL (4.4-10.8)
[2021-01-24] MEDS: Normal Saline Flush 10 ML SYR IVP (20:46)
[2021-01-24 20:47] LABS: Source Nasal/Nares
[2021-01-24 20:57] LABS: Bilirubin Negative (Negative); Blood Small (Negative); Clarity Cloudy (Clear); Glucose Negative (Negative); Ketones 40 mg/dL (Negative); Leukocyte Esterase Negative (Negative); Nitrite Negative (Negative); Specific Gravity >= 1.030 (1.005-1.025); Urobilinogen 0.2 EU/dL (Up TO 0.2); pH 5.5 (5-8)
[2021-01-24] MEDS: Prochlorperazine 10 MG/2 ML VIAL IVP (20:57)
[2021-01-24] MEDS: MORPHine 10 MG/ML VIAL 4 MG IVP (20:57)
[2021-01-24] MEDS: Lactated Ringers 1,000 ML 1000 ML IV (20:58)
[2021-01-24 21:01] LABS: ALT 21 U/L (14-59); AST 31 U/L (15-37); Albumin 3.4 g/dL (3.4-5.0); Alkaline Phosphatase 120 U/L (46-116); Anion Gap 8.2 mmol/L (3-11); BUN 15 mg/dL (7-18); Bilirubin, Total 0.6 mg/dL (0.2-1.0); CO2 26.8 mmol/L (21.0-32.0); CREATININE 0.8 mg/dL (0.55-1.02); Calcium 8.9 mg/dL (8.5-10.1); Chloride 104 mmol/L (98-107); Glucose 106 mg/dL (74-106); Lipase 134 U/L (73-393); Magnesium 1.7 mg/dL (1.8-2.4); Potassium 4.3 mmol/L (3.5-5.1); Sodium 139 mmol/L (136-145); Total Protein 7.4 g/dL (6.4-8.2)
[2021-01-24] MEDS: diphenhydrAMINE 50 MG/ML VIAL 12.5 MG IVP (21:28)
[2021-01-24 21:30] LABS: Bacteria Many HPF (Negative); Epithelial Cells Many HPF (Negative); RBC Negative HPF (0-2)
[2021-01-24 21:31] LABS: C & S Indicated? No/Sq. Contamination
[2021-01-24 21:39] LABS: COVID-19 PCR Negative (Negative)
[2021-01-24 21:54] LABS: Prothrombin Time 114.9 sec (9.3-11.0)
[2021-01-24 21:55] LABS: INR 12.2 (0.9-1.1)
--- NOTE | 2021-01-24 22:31 | DI.VRAD_ITS ---
PROCEDURE INFORMATION: Exam: CT Abdomen And Pelvis With Contrast Exam date and time: 01/24/2021 8:35 PM Age: 51 years old Clinical indication: Other: Rlq pain TECHNIQUE: Imaging protocol: Computed tomography of the abdomen and pelvis with contrast. Total images: 1319 COMPARISON: CT ABD PELVIS WITH CONTRAST 09/21/2014 8:53 AM FINDINGS: Liver: Normal. No mass. Gallbladder and bile ducts: Normal. No calcified stones. No ductal dilation. Pancreas: Normal. No ductal dilation. Spleen: Normal. No splenomegaly. Adrenal glands: Normal. No mass. Kidneys and ureters: There are simple appearing cysts in the right kidney. No follow-up necessary. There are simple appearing cysts in the left kidney. No follow-up necessary. Stomach and bowel: There are sigmoid/descending colonic diverticuli. There is terminal ileal wall thickening, mucosal hyperenhancement. The distal ileum is prominent, nondilated. No dilated loops of bowel to suggest obstruction. Appendix: Normal (series 6, image 96). Intraperitoneal space: There is small volume of free fluid in the right lower quadrant. No free air. Vasculature: Unremarkable. No abdominal aortic aneurysm. Lymph nodes: Unremarkable. No enlarged lymph nodes. Urinary bladder: Unremarkable as visualized. Reproductive: Unremarkable as visualized. Bones/joints: Unremarkable. No acute fracture. Soft tissues: Unremarkable. IMPRESSION: 1. Terminal ileitis. Differential considerations include infectious and inflammatory etiologies including inflammatory bowel disease. 2. Sigmoid/descending colonic diverticulosis. 3. Normal appendix. Dictated and Authenticated by: Dick Verdin MD. Ordering:MARIA ALEJANDRA Escamilla MD
[2021-01-24 22:34] LABS: Prothrombin Time 115.4 sec (9.3-11.0)
[2021-01-24 22:35] LABS: INR 12.3 (0.9-1.1)
[2021-01-25] VITALS (8 sets, daily range): BP systolic 74–96; BP diastolic 30–44; PULSE 57–68; O2SAT 92–93
[2021-01-25] MEDS: PIPERACILLIN/TAZO 3.375 GM in Normal Saline 50 ML IVPB
--- NOTE | 2021-01-28 10:56 | NUR.NOTE ---
negative covid result sent via mail.Nursing Note:
== END 2021-01-25 00:54 | disposition short-term general hospital (02) ==
PROVIDERS: Emergency Provider Emergency Medicine; PCP Nurse Practitioner
DX: K50.00 Crohn's disease of small intestine without complications (principal); R79.1 Abnormal coagulation profile
CPT/HCPCS: 36415; 80053; 83690; 87040; 87635; 93005; 96361; 96365; 96375; 96376; 99285; 74177; 81003; 81015; 83735; 85025; 85610; 93010; J0780; J1200; J2270; J2543; J3490

== ENCOUNTER 2021-02-14 15:29 | Outpatient (REF) | payer MEDICARE, SELFPAY ==
[2021-02-14 23:51] LABS: Prothrombin Time 85.6 sec (9.3-11.0)
== END 2021-02-14 15:30 | disposition home or self-care (01) ==
LOC: LBN 15:29
PROVIDERS: PCP Nurse Practitioner; Visit Provider Internal Medicine Cardiovascular Disease
DX: D68.61 Antiphospholipid syndrome (principal)
CPT/HCPCS: 85610

== ENCOUNTER → 2021-02-15 09:42 | Outpatient (BNVA) | payer MEDICARE, MEDICAID, SELFPAY | PROVIDERS: PCP Nurse Practitioner; Referring Provider Nurse Practitioner; Visit Provider Internal Medicine Cardiovascular Disease | DX: D68.61 Antiphospholipid syndrome (principal); Z95.2 Presence of prosthetic heart valve; L93.0 Discoid lupus erythematosus; R06.09 Other forms of dyspnea | CPT/HCPCS: 99214 ==

== ENCOUNTER 2021-02-18 14:45 | Outpatient (REF) | payer MEDICARE, SELFPAY ==
[2021-02-18 21:46] LABS: INR 2.9 (0.9-1.1)
== END 2021-02-18 14:46 | disposition home or self-care (01) ==
LOC: LBN 14:45
PROVIDERS: PCP Nurse Practitioner; Visit Provider Nurse Practitioner Family
DX: I26.99 Other pulmonary embolism without acute cor pulmonale (principal); Z79.01 Long term (current) use of anticoagulants
CPT/HCPCS: 85610

== ENCOUNTER 2021-02-20 13:49 | Outpatient (REF) | payer MEDICARE, MEDICAID, SELFPAY ==
[2021-02-20 14:57] LABS: INR 1.6 (0.9-1.1); Prothrombin Time 15.5 sec (9.3-11.0)
== END 2021-02-20 13:50 | disposition home or self-care (01) ==
LOC: LBN 13:49
PROVIDERS: PCP Nurse Practitioner; Visit Provider Physician Assistant Medical
DX: Z79.01 Long term (current) use of anticoagulants (principal)
CPT/HCPCS: 85610

== ENCOUNTER 2021-02-25 14:47 | Outpatient (REF) | payer MEDICARE, MEDICAID, SELFPAY ==
[2021-02-25 15:59] LABS: Prothrombin Time 60.3 sec (9.3-11.0)
[2021-02-25 17:25] LABS: INR 6.3 (0.9-1.1)
== END 2021-02-25 14:48 | disposition home or self-care (01) ==
LOC: LBN 14:47
PROVIDERS: PCP Nurse Practitioner; Visit Provider Physician Assistant Medical
DX: Z79.01 Long term (current) use of anticoagulants (principal); I26.99 Other pulmonary embolism without acute cor pulmonale
CPT/HCPCS: 85610

== ENCOUNTER 2021-03-05 21:34 | Outpatient (REF) | payer MEDICARE, MEDICAID, SELFPAY ==
[2021-03-05 22:31] LABS: Prothrombin Time 55.4 sec (9.3-11.0)
[2021-03-05 22:48] LABS: INR 5.8 (0.9-1.1)
== END 2021-03-05 21:35 | disposition home or self-care (01) ==
LOC: LBN 21:34
PROVIDERS: PCP Nurse Practitioner; Visit Provider Internal Medicine Cardiovascular Disease
DX: D68.61 Antiphospholipid syndrome (principal)
CPT/HCPCS: 85610

== ENCOUNTER 2021-04-09 03:24 | Outpatient (CLI) | payer MEDICARE, MEDICAID, SELFPAY ==
[2021-04-09 11:45] LABS: INR 1.5 (0.9-1.1)
== END 2021-04-09 03:25 | disposition home or self-care (01) ==
LOC: LBO 03:24
PROVIDERS: PCP Nurse Practitioner; Visit Provider Internal Medicine Cardiovascular Disease
DX: D68.61 Antiphospholipid syndrome (principal)
CPT/HCPCS: 36415; 85610

== ENCOUNTER → 2021-04-16 11:03 | Outpatient (BNVA) | payer MEDICARE, MEDICAID, SELFPAY | PROVIDERS: PCP Nurse Practitioner; Referring Provider Nurse Practitioner; Visit Provider Nurse Practitioner Gerontology | DX: R31.29 Other microscopic hematuria (principal); R10.9 Unspecified abdominal pain; R10.2 Pelvic and perineal pain; I10 Essential (primary) hypertension | CPT/HCPCS: 81003; 99204; 99214 ==

== ENCOUNTER 2021-04-16 18:24 | Outpatient (REF) | payer MEDICARE, MEDICAID, SELFPAY ==
[2021-04-16 16:08] LABS: Bilirubin Negative (Negative); Blood Trace-intact (Negative); Clarity Sl Cloudy (Clear); Glucose Negative (Negative); Ketones Negative (Negative); Leukocyte Esterase Small (Negative); Nitrite Negative (Negative); Specific Gravity >= 1.030 (1.005-1.025); Urobilinogen 0.2 EU/dL (Up TO 0.2)
[2021-04-16 16:20] LABS: Bacteria Many HPF (Negative); C & S Indicated? No/Sq. Contamination; Casts Negative LPF (Negative); Crystals Moderate Amorphous HPF (Negative); Epithelial Cells Many HPF (Negative); Mucus Moderate (Negative); Other Cells Moderate Renal (Negative); RBC 0-2 HPF (0-2); WBC 20-50 HPF (0-5)
== END 2021-04-16 18:25 | disposition home or self-care (01) ==
LOC: NCHCN 18:24
PROVIDERS: PCP Nurse Practitioner; Visit Provider Nurse Practitioner Gerontology
DX: R31.29 Other microscopic hematuria
CPT/HCPCS: 81003; 81015; 87086

== ENCOUNTER 2021-05-16 12:34 | Emergency (ER) | payer MEDICARE, MEDICAID, SELFPAY ==
[2021-05-16] VITALS (20 sets, daily range): BP systolic 102–141; BP diastolic 53–79; PULSE 57–72; RESP 17–33; TEMP 37.2; O2SAT 94–98
[2021-05-16] MEDS: Sucralfate 1 GM TAB PO (13:05)
[2021-05-16] MEDS: Pantoprazole 40 MG VIAL IVP (13:19)
--- NOTE | 2021-05-16 13:21 | W.ED.GENAD ---
Discharge Plan Disposition Patient Disposition: HOME Condition: Good Discharge Details Clinical Impression: Gastritis Primary Care Provider: Mckenna Genao ED Provider: Santy Penaloza Home Meds and New Rx's Prescriptions: New sucralfate [Carafate] 1 gram tablet 1 g PO BID Qty: 60 0RF Continued aspirin 81 mg tablet,chewable 81 mg PO DAILY 0RF lisinopril 5 mg tablet 5 mg PO DAILY Qty: 90 4RF metoprolol succinate 25 mg tablet extended release 24 hr 25 mg PO DAILY Qty: 90 6RF levothyroxine 25 MCG tablet 25 mcg PO DAILY Qty: 60 1RF Rx Instructions: 1 tab PO daily warfarin [Coumadin] 1 MG tablet 5 - 7.5 mg PO DAILY 0RF Label Comments: 5 mg sun/thu//thu and takes 7.5 /thu/ cetirizine 10 MG tablet 10 mg PO PRN PRN0RF hydroxychloroquine 200 MG tablet 200 mg PO BID 0RF Multiple Vitamin, Womens Tablet 1 ea PO DAILY 0RF pantoprazole 40 mg tablet,delayed release (DR/EC) 40 mg PO BID PRN PRN0RF Label Comments: TK 1 T PO BID albuterol sulfate 90 mcg/actuation HFA aerosol inhaler 2 inh INHALATION Q4H PRN PRN0RF fluoxetine 20 mg capsule 40 mg PO DAILY 0RF Label Comments: TK 1 C PO D Flovent HFA 110 mcg/actuation HFA aerosol inhaler 2 inh INHALATION DAILY 0RF Discharge Instructions Instructions: Gastritis (ED) Additional Instructions: At this time your blood work is very reassuring. Your hemoglobin/blood levels are normal. Your INR is a bit subtherapeutic at 1.6. Your current stool shows no evidence of blood. Please avoid any spicy foods or tomato-based foods. Please take Maalox daily for the next few days if you have any stomach irritation. I have added a prescription of Carafate, this has been sent to your pharmacy on file. Please take this as directed. Continue to take your home Protonix. Follow-up closely with your primary care provider for reassessment of your Coumadin levels. If you notice any worsening of your symptoms, or any new symptoms such as vomiting, diarrhea, fever, chills, shortness of breath, chest pain, numbness, weakness, or fainting , please return immediately to the emergency department for reevaluation. Please follow up with your primary care provider as soon as possible for reassessment and reevaluation. As always, it was a pleasure participating in your medical care today. Referrals: Mckenna Genao [Primary Care Provider] - Discharge Data Discharge Date/Time-TO BE ENTERED AT DEPARTURE: 05/16/21 14:31 Medical Decision Making 51-year-old female with a past medical history of CHF, mechanical aortic valve on Coumadin with a target of 2.5-2.6, lupus, hypertension, high cholesterol, antiphospholipid antibody syndrome, previous pulmonary embolism, previous episodes of supratherapeutic INR, presents today for evaluation of black and tarry stools. Patient states that she ate some pizza on Thursday, which was 4 days ago. After which she has had some achiness in her left upper quadrant and stomach. She has had no vomiting or nausea though. Yesterday her stools were unremarkable, however today they were noted to be dark and tarry. She denies any other abdominal pain or discomfort. She denies any changes in her medications. Recent INR was slightly subtherapeutic. She does take Protonix regularly. She denies missing any doses. She denies any other complaints at this time. She does take a daily aspirin as well. She denies any increase or recent ibuprofen or Tylenol. No other spicy foods. No other complaints at this time. Physical exam demonstrates a well-appearing female. Mild achiness in the left upper quadrant/epigastric region. No signs of an acute surgical abdomen whatsoever. Differential was highest for mild gastric ulcer squint bleed. Vital signs are notably stable, and inconsistent with massive GI hemorrhage. She denies any bright red blood. We will check her hemoglobin and INR level. We will perform stool Hemoccult, will give proton pump inhibitor and H2 montse and GI cocktail. Will monitor closely and reassess. No indication for emergent imaging at this time. 6 PM Laboratory work-up is returned normal. Hemoglobin level stable. Stool Hemoccult was performed and was negative. INR is actually slightly subtherapeutic at 1.6. Electrolytes renal function lipase are normal. Patient has no abdominal tenderness on exam whatsoever. No indication for imaging at this time. Patient was given Protonix and an H2 montse IV, she feels well. She feels good to go home. She is able to tolerate p.o. At this time symptoms are inconsistent with significant GI bleed. Vital signs stable. Will recommend close outpatient follow-up for potential EGD. Recommend continue Protonix. Will give prescription for Carafate at home. Discussed diet changes. I have extensively reviewed the treatment plan and discharge instructions with the patient. I have addressed all patient concerns at this time. The patient was made aware of what symptoms to monitor for that would warrant a return to the emergency department. Discussed the plan with the patient, they demonstrate verbal understanding and agreement with our assessment and plan at this time. The documentation in this chart was dictated using [employer] dictation software. Please excuse any dictation errors. HPI General Date/Time Provider Initiated Documentation: 05/16/21 12:46. HPI Narrative: 51-year-old female with a past medical history of CHF, mechanical aortic valve on Coumadin with a target of 2.5-2.6, lupus, hypertension, high cholesterol, antiphospholipid antibody syndrome, previous pulmonary embolism, previous episodes of supratherapeutic INR, presents today for evaluation of black and tarry stools. Patient states that she ate some pizza on Thursday, which was 4 days ago. After which she has had some achiness in her left upper quadrant and stomach. She has had no vomiting or nausea though. Yesterday her stools were unremarkable, however today they were noted to be dark and tarry. She denies any other abdominal pain or discomfort. She denies any changes in her medications. Recent INR was slightly subtherapeutic. She does take Protonix regularly. She denies missing any doses. She denies any other complaints at this time. She does take a daily aspirin as well. She denies any increase or recent ibuprofen or Tylenol. No other spicy foods. No other complaints at this time. Related Data Home Medications Medication Instructions Recorded Confirmed warfarin 1 mg tablet (Coumadin) 5 - 7.5 mg PO DAILY 08/18/12 05/16/21 cetirizine 10 mg tablet 10 mg PO PRN PRN 02/27/16 05/16/21 hydroxychloroquine 200 mg tablet 200 mg PO BID 02/27/16 05/16/21 levothyroxine 25 mcg tablet 25 mcg PO DAILY #60 tab 03/05/17 05/16/21 vrewwrsbdknn-It-bpim-minerals 1 ea PO DAILY 12/25/17 05/16/21 (Multiple Vitamin, Womens) aspirin 81 mg chewable tablet 81 mg PO DAILY 02/17/18 05/16/21 albuterol sulfate 90 mcg/actuation 2 inh INHALATION Q4H PRN PRN 03/18/20 05/16/21 aerosol inhaler fluoxetine 20 mg capsule 40 mg PO DAILY 03/18/20 05/16/21 fluticasone propionate 110 2 inh INHALATION DAILY 03/18/20 05/16/21 mcg/actuation HFA aerosol inhaler (Flovent HFA) pantoprazole 40 mg tablet,delayed 40 mg PO BID PRN PRN 03/18/20 05/16/21 release lisinopril 5 mg tablet 5 mg PO DAILY #90 tab 08/17/20 05/16/21 metoprolol succinate 25 mg 25 mg PO DAILY #90 tab 08/17/20 05/16/21 tablet,extended release 24 hr sucralfate 1 gram tablet (Carafate) 1 g PO BID #60 tab 05/16/21 Previous Rx's Medication Instructions Recorded levothyroxine 25 mcg tablet 25 mcg PO DAILY #60 tab 03/05/17 lisinopril 5 mg tablet 5 mg PO DAILY #90 tab 08/17/20 metoprolol succinate 25 mg 25 mg PO DAILY #90 tab 08/17/20 tablet,extended release 24 hr sucralfate 1 gram tablet (Carafate) 1 g PO BID #60 tab 05/16/21 Allergies Allergy/AdvReac Type Severity Reaction Status Date / Time tramadol AdvReac Intermediate GI Upset Verified 05/16/21 12:55 General Stated Complaint: GI Bleed RACHELLE: 2 Review of Systems Narrative: 10 point review of systems was performed, pertinent positives and negatives are noted in the history of present illness. All others were otherwise negative. PFSH All Active Problems (Updated 05/16/21 @ 14:22 by Santy Penaloza DO) Gastritis (Acute) Terminal ileitis (Acute) Supratherapeutic INR (Acute) Pulmonary embolism (Chronic) Renal colic (Acute) History of cardiomyopathy (Acute) Labial lesion (Acute) H/O mechanical aortic valve replacement (Acute) Vulvar lesion (Acute) Migraine (Acute 06/16/15) Lupus (Acute 09/19/14) Left groin mass (Acute 02/13/17) Hypertension (Acute 09/19/14) Hyperlipidemia (Acute 09/19/14) Fatty liver (Acute 09/19/14) Diverticulosis of colon (Acute 09/19/14) Depression (Acute 09/19/14) Combined abdominal and pelvic pain (Acute 09/19/14) GERD (gastroesophageal reflux disease) (Acute) Will need to bridge with lovenox due to mechanical valve Medical History Allergic rhinitis Aortic insufficiency Cardiomyopathy Combined abdominal and pelvic pain 2014. 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 CT of abd showed diverticulosis w/o diverticulitis of colon. Depression Diverticulosis of colon noted on CT of abd as eval for abd and pelvic pain. Fatty infiltration of liver nl LFTs with exception of Alk Phosphatase. GERD (gastroesophageal reflux disease) Hiatal hernia Seen on EGD with Dr Fofana on 12/29/17, he recommended a barium swallow Hyperlipidemia Hypertension Insomnia Late effects of CVA (cerebrovascular accident) Lupus Hx of CVA, antiphospholipid AB, CHF. On chronic anticoagulation. Migraine Sleep apnea Surgical History Dilation and curettage 1989 Endometrial Ablation 2003 H/O aortic valve replacement History of esophagogastroduodenoscopy (EGD) (12/29/17) Dr Fofana, hiatal hernia - recommends barium swallow. Replacement of total knee joint 2004 bilateral Family History Mother Osteoporosis Father Hyperlipidemia Grandmother Heart disease Social History Smoking/Tobacco Use Status: Former Tobacco Use Quit Date: 04/06/91 Tobacco: How many years used: 2 Smoking risk assessment performed?: Yes Alcohol Intake: never Drug use: Never Substance use type: does not use What type of physical activity do you participate in: walking Do you feel safe at home: Yes Do you feel safe in your relationship?: Yes Exam Narrative Exam Narrative: 1.Const: Well-nourished, Well-developed, appearing stated age 2.Eyes: PERRL, no conjunctival injection, and symmetrical lids. 3.ENT: Atraumatic external nose and ears. Moist MM. Neck: Symmetric, trachea midline, No thyromegaly. 4.CVS: +S1/S2, No murmurs or gallops. Peripheral pulses 2+ and equal in all extremities. Brisk capillary refill in all extremities. 5.RESP: Unlabored respiratory effort. Clear to auscultation bilaterally. No wheezes rales or rhonchi 6.GI: Soft, Nondistended, No hepatosplenomegaly. No guarding or rebound. Mild left upper quadrant tenderness. No pain or McBurney's point, negative Clark sign. No evidence of an acute surgical abdomen. 7.MSK: Normocephalic/Atraumatic, Extremities w/o deformity or ttp No cyanosis or clubbing, Normal movement of all extremities 8.Skin: Warm, Dry. No rashes or lesions. 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 Sensation grossly intact, no focal neurologic deficits. 10.Psych: (AAO) x3. Appropriate mood and affect Course Vital Signs Vital signs: Vital Signs Temperature 37.2 C 05/16/21 12:50 Pulse 65 05/16/21 12:50 Respiratory Rate 23 05/16/21 12:50 Blood Pressure 141/79 H 05/16/21 12:50 Pulse Oximetry 96 05/16/21 12:50 Temperature 37.2 C 05/16/21 12:50 Temperature Source Temporal Artery Scan 05/16/21 12:50 Pulse 65 05/16/21 12:50 Respiratory Rate 23 05/16/21 12:50 Respiratory Effort Non-Labored 05/16/21 12:54 Blood Pressure 141/79 H 05/16/21 12:50 Blood Pressure Position Supine 05/16/21 12:50 Pulse Oximetry 96 05/16/21 12:50 Oxygen Delivery Method Room Air 05/16/21 12:50 Oxygen Flow Rate 0 05/16/21 12:50 Pain Level 6 05/16/21 12:50
[2021-05-16 13:24] LABS: Abs Immature Grans 0.02 10^3/uL (0.0-0.06); Absolute Basophil Count 0.04 10^3/uL (0.0-0.2); Absolute Eosinophil Count 0.16 10^3/uL (0.0-0.7); Absolute Lymphocyte Count 1.87 10^3/uL (1.2-3.4); Absolute Monocyte Count 0.62 10^3/uL (0.1-0.8); Absolute Neutrophil Count 3.88 10^3/uL (1.2-6.7); Basophils % 0.6; Eosinophils % 2.4; HCT 42.4 % (36.0-46.0); HGB 14.3 g/dL (11.2-15.7); Immature Grans % 0.3; Lymphocytes % 28.4; MCH 31.6 pg (27.0-33.0); MCHC 33.7 % (32.0-36.0); MCV 93.8 fL (80-95); MPV 9.8 fL (8.0-11.0); Monocytes % 9.4; Neutrophils % 58.9; Nucleated RBC 0 %; Platelet Count 273 10^3/uL (130-400); RBC 4.52 10^6/uL (3.93-5.22); RDW-SD 44.5 fL; WBC 6.59 10^3/uL (4.4-10.8)
[2021-05-16] MEDS: Famotidine 20 MG/2 ML VIAL (13:24)
[2021-05-16] MEDS: Normal Saline 50 ML 60 ML (13:40)
[2021-05-16 13:42] LABS: ALT 37 U/L (14-59); AST 37 U/L (15-37); Albumin 3.8 g/dL (3.4-5.0); Alkaline Phosphatase 114 U/L (46-116); Anion Gap 6.9 mmol/L (3-11); BUN 14 mg/dL (7-18); Bilirubin, Total 0.6 mg/dL (0.2-1.0); CO2 31.1 mmol/L (21.0-32.0); CREATININE 0.8 mg/dL (0.55-1.02); Calcium 9.2 mg/dL (8.5-10.1); Chloride 101 mmol/L (98-107); Glucose 87 mg/dL (74-106); Lipase 187 U/L (73-393); Potassium 3.8 mmol/L (3.5-5.1); Sodium 139 mmol/L (136-145); Total Protein 7.8 g/dL (6.4-8.2)
[2021-05-16 13:48] LABS: INR 1.6 (0.9-1.1); Prothrombin Time 16.1 sec (9.3-11.0)
[2021-05-16 14:18] LABS: PTT Activated 29.5 sec (21.0-27.5)
== END 2021-05-16 14:31 | disposition home or self-care (01) ==
PROVIDERS: Emergency Provider Student in an Organized Health Care Education/Training Program; PCP Nurse Practitioner
DX: K29.00 Acute gastritis without bleeding (principal); Z95.2 Presence of prosthetic heart valve; Z79.01 Long term (current) use of anticoagulants
CPT/HCPCS: 36415; 80053; 83690; 96374; 96375; 99284; 85025; 85610; 85730; 99283

== ENCOUNTER → 2021-05-23 15:01 | Outpatient (BNVA) | payer MEDICARE, MEDICAID, SELFPAY | PROVIDERS: PCP Nurse Practitioner; Referring Provider Nurse Practitioner; Visit Provider Nurse Practitioner Gerontology | DX: N39.0 Urinary tract infection, site not specified (principal); R31.29 Other microscopic hematuria; R35.0 Frequency of micturition; R39.15 Urgency of urination | CPT/HCPCS: 81003; 99214 ==

== ENCOUNTER 2021-05-23 18:45 | Outpatient (REF) | payer MEDICARE, MEDICAID, SELFPAY | END 2021-05-23 18:46 | disposition home or self-care (01) | LOC: LBN 18:45 | PROVIDERS: PCP Nurse Practitioner; Visit Provider Nurse Practitioner Gerontology | DX: N39.0 Urinary tract infection, site not specified (principal) | CPT/HCPCS: 87086 ==

== ENCOUNTER → 2021-12-25 12:53 | Outpatient (BNVA) | payer MEDICARE, MEDICAID, SELFPAY | PROVIDERS: PCP Nurse Practitioner; Referring Provider Nurse Practitioner; Visit Provider Surgery | DX: Z12.11 Encounter for screening for malignant neoplasm of colon (principal) ==

== ENCOUNTER 2022-01-06 14:45 | Outpatient (CLI) | payer MEDICARE, MEDICAID, SELFPAY ==
--- NOTE | 2022-01-06 14:30 | DI.RAD_ITS ---
Exam(s) XR KNEE RT 3V AP,LAT,HUMBERTO EXAM: XR KNEE RT 3V AP,LAT,HUMBERTO CLINICAL HISTORY: pain. TECHNIQUE: 2D digital imaging was performed. Three views. COMPARISON: CR XR knee RT 3V AP,lat,humberto from 09/16/2018 FINDINGS: BONES: No acute fracture is present. No bony destructive lesion is seen. JOINTS: The total knee prosthesis is normally aligned. No joint effusion is seen. SOFT TISSUE: Normal. IMPRESSION: Stable appearance of total knee prosthesis DATA REPOSITORY: RADIATION DOSE DELIVERED:
--- NOTE | 2022-01-06 14:30 | DI.RAD_ITS ---
Exam(s) XR KNEE LT 3V AP,LAT,HUMBERTO EXAM: XR KNEE LT 3V AP,LAT,HUMBERTO CLINICAL HISTORY: pain. TECHNIQUE: 2D digital imaging was performed. Three views. COMPARISON: CR RIGHT KNEE COMPLETE from 10/23/2017 CR XR knee RT 3V AP,lat,humberto from 09/16/2018 CR XR KNEE RT 3V AP,LAT,HUMBERTO from 01/06/2022 FINDINGS: BONES: No acute fracture is present. No bony destructive lesion is seen. JOINTS: The knee prosthesis is well aligned. No joint effusion is seen. SOFT TISSUE: Normal. IMPRESSION: Unremarkable knee prosthesis.. DATA REPOSITORY: RADIATION DOSE DELIVERED:
== END 2022-01-06 14:46 | disposition home or self-care (01) ==
LOC: DIORS 14:46
PROVIDERS: PCP Nurse Practitioner Family; Referring Provider Nurse Practitioner Family; Visit Provider Physician Assistant Surgical
DX: Z96.653 Presence of artificial knee joint, bilateral (principal); M25.561 Pain in right knee; M25.562 Pain in left knee; R20.0 Anesthesia of skin; M54.50 Low back pain, unspecified; Z95.2 Presence of prosthetic heart valve; Z79.01 Long term (current) use of anticoagulants
CPT/HCPCS: 73562; 99214

== ENCOUNTER 2022-01-31 00:36 | Outpatient (CLI) | payer MEDICARE, MEDICAID, SELFPAY | END 2022-01-31 00:56 | LOC: DI 00:36 | PROVIDERS: PCP Nurse Practitioner Family; Visit Provider Student in an Organized Health Care Education/Training Program | CPT/HCPCS: 85652; 86140 ==

== ENCOUNTER → 2022-02-28 00:34 | Outpatient (CLI) | payer MEDICARE, MEDICAID, SELFPAY ==
--- NOTE | 2022-02-28 07:15 | DI.NM_ITS ---
Exam(s) NM BONE SCAN 3 PHASE EXAM: NM BONE SCAN 3 PHASE CLINICAL HISTORY: PAIN, ?LOOSENING Z96.653 BILAT ARTIFICIAL KNEE. COMPARISON: No exams were available for comparison TECHNIQUE: Three-phase bone scan was performed with intravenous infusion of 20 millicuries of techne tium 99 labeled methylene diphosphonate. Flow images of the knees are unremarkable. Immediate blood pool imaging of the knees shows unremarkable flow. Whole body imaging is unremarkable. Delayed imaging shows typical appearance for bilateral knee replacements with mildly increased uptake adjacent to the tibial, femoral, and patellar components of the TKR is period no evidence of looseni ng or infection. FINDINGS: Unremarkable three-phase bone scan with attention to the knees in a patient with bilateral total knee joint replacements. IMPRESSION: DATA REPOSITORY:
== END ==
PROVIDERS: PCP Nurse Practitioner Family; Visit Provider Student in an Organized Health Care Education/Training Program
DX: Z96.653 Presence of artificial knee joint, bilateral (principal)
CPT/HCPCS: 78315

== ENCOUNTER 2022-03-07 09:21 | Outpatient (CLI) | payer MEDICARE, MEDICAID, SELFPAY | END 2022-03-07 09:22 | disposition home or self-care (01) | LOC: DI.CARD 09:23 | PROVIDERS: PCP Nurse Practitioner Family; Visit Provider Internal Medicine Cardiovascular Disease | CPT/HCPCS: 93010 ==

== ENCOUNTER → 2022-03-18 01:34 | Outpatient (CLI) | payer MEDICARE, MEDICAID, SELFPAY ==
--- NOTE | 2022-03-18 10:30 | DI.MRI_ITS ---
Exam(s) MR LUMBAR SPINE WO EXAM: MR LUMBAR SPINE WO CLINICAL HISTORY: PAIN,LUMBAR RADICULOPATHY,M54.16. TECHNIQUE: Multiplanar multisequence MRI of the Lumbar spine was performed. COMPARISON: CT CT ABDOMEN PELVIS W from 01/24/2021 FINDINGS: Bones: The last intervertebral disc space is designated the L5/S1 level for the numbering purpose of this examination. The vertebral body heights are well maintained. Alignment is satisfactory. There are mild endplate degenerative signal changes seen at L2-L3 and L4-L5. Cord: The conus tip ends at the T12 level. It is of normal size and signal intensity. T12-L1: No disc herniations or bulges are present. No central spinal canal or neural foraminal stenos is. L1-2: No disc herniations or bulges are present. No central spinal canal or neural foraminal stenosis . L2-3: No disc herniations or bulges are present. No central spinal canal or neural foraminal stenosis . L3-4: No disc herniations or bulges are present. No central spinal canal or neural foraminal stenosis . L4-5: No disc herniations or bulges are present. No central spinal canal or neural foraminal stenosis .There is disc desiccation at this level. L5-S1: No disc herniations or bulges are present. No central spinal canal or neural foraminal stenosi s.There is degenerative disc disease at this level. Soft tissues: The visualized SI joints and sacrum are well maintained. The paraspinal soft tissues ar e unremarkable. Visualized abdominal organs: There are multiple bilateral simple renal cysts. These are stable alexandr red to the CT scan of the abdomen and pelvis from 01/24/2021. Note is also made of diverticulosis of the colon. IMPRESSION: Degenerative disc disease in the lumbar spine. No focal disc herniation, central spinal canal or angelita ral foraminal stenosis is present. DATA REPOSITORY:
== END ==
PROVIDERS: PCP Nurse Practitioner Family; Visit Provider Student in an Organized Health Care Education/Training Program
DX: M54.16 Radiculopathy, lumbar region (principal); M51.36 Other intervertebral disc degeneration, lumbar region
CPT/HCPCS: 72148

== ENCOUNTER 2022-04-24 04:04 | Outpatient (CLI) | payer OTHER, MEDICAID, SELFPAY ==
[2022-04-24 09:57] LABS: Abs Immature Grans 0.01 10^3/uL (0.0-0.06); Absolute Basophil Count 0.05 10^3/uL (0.0-0.2); Absolute Eosinophil Count 0.17 10^3/uL (0.0-0.7); Absolute Lymphocyte Count 1.29 10^3/uL (1.2-3.4); Absolute Monocyte Count 0.52 10^3/uL (0.1-0.8); Absolute Neutrophil Count 3.12 10^3/uL (1.2-6.7); Eosinophils % 3.3; HCT 39.2 % (36.0-46.0); HGB 13.2 g/dL (11.2-15.7); Immature Grans % 0.2; MCHC 33.7 % (32.0-36.0); MCV 95 fL (80-95); MPV 9.9 fL (8.0-11.0); Monocytes % 10.1; Neutrophils % 60.4; Platelet Count 261 10^3/uL (130-400); RBC 4.12 10^6/uL (3.93-5.22); RDW 13.1 % (11.7-14.6); RDW-SD 45.8 fL; WBC 5.16 10^3/uL (4.4-10.8)
[2022-04-24 10:02] LABS: ESR 5 mm/hr (0-20)
[2022-04-24 10:53] LABS: ALT 22 U/L (14-59); AST 25 U/L (15-37); Albumin 3.6 g/dL (3.4-5.0); Alkaline Phosphatase 137 U/L (46-116); Anion Gap 5.8 mmol/L (3-11); BUN 18 mg/dL (7-18); Bilirubin, Total 0.5 mg/dL (0.2-1.0); CO2 29.2 mmol/L (21.0-32.0); Calcium 9.1 mg/dL (8.5-10.1); Chloride 106 mmol/L (98-107); Estimated GFR 68.63 (mL/min/1.73m2); Glucose 97 mg/dL (74-106); Potassium 4.1 mmol/L (3.5-5.1); Sodium 141 mmol/L (136-145); Total Protein 7.3 g/dL (6.4-8.2)
== END 2022-04-24 04:05 | disposition home or self-care (01) ==
LOC: LBO 04:04
PROVIDERS: Internal Medicine Rheumatology; PCP Nurse Practitioner Family; Visit Provider Student in an Organized Health Care Education/Training Program
DX: M32.9 Systemic lupus erythematosus, unspecified (principal); Z79.899 Other long term (current) drug therapy; T84.84XA Pain due to internal orthopedic prosthetic devices, implants and grafts, initial encounter; Z96.653 Presence of artificial knee joint, bilateral
CPT/HCPCS: 36415; 80053; 85652; 99214; 85025; 86140

== ENCOUNTER 2022-05-21 15:03 | Outpatient (REF) | payer OTHER, MEDICAID, SELFPAY ==
--- NOTE | 2022-05-21 14:30 | PAPFT_PTH ---
PATIENT: Cecilia Dumont [facility] U[id number] AGE/SX: 52/F ROOM: RE05/21/[address]: MATTEO WASHINGTON NP : 1970 BED: DIS: 05/21/2022 SPEC #: [id number] RECD: 05/22/22 13:07 STATUS: ANAND REJaylon #: [id number] CORBY: 05/21/22 14:[address]: MATTEO WASHINGTON DEPT: [facility] Cytology RECD BY: Yusra Aguilera Tissues: 1 - CX/ENDOCX FOR PAP SMEARS Procedures: PAP THIN PREP/UVM Screening Comments: [id number] (CHLAMYDIA/GC) (UNSATISFACTORY FOR EVALUATION)
[2022-05-23 14:30] LABS: Chlamydia Result Negative (Negative); GC Result Negative (Negative)
== END 2022-05-21 15:04 | disposition home or self-care (01) ==
LOC: NCHCN 15:03
PROVIDERS: PCP Nurse Practitioner Family; Visit Provider Nurse Practitioner Family
DX: Z11.3 Encounter for screening for infections with a predominantly sexual mode of transmission (principal); Z12.4 Encounter for screening for malignant neoplasm of cervix; N89.8 Other specified noninflammatory disorders of vagina; R87.615 Unsatisfactory cytologic smear of cervix
CPT/HCPCS: 87491; 87591; 88142; 87480; 87510; 87660

== ENCOUNTER 2022-06-18 15:21 | Outpatient (REF) | payer OTHER, MEDICAID, SELFPAY ==
--- NOTE | 2022-06-18 14:30 | PAPFT_PTH ---
PATIENT: Cecilia Dumont LOC: [facility]#:[id number] AGE/SX: 52/F ROOM: RE06/18/[address]: MATTEO WASHINGTON NP : 1970 BED: DIS: 06/18/2022 SPEC #: [id number] RECD: 06/19/22 12:51 STATUS: ANAND REJaylon #: [id number] CORBY: 06/18/22 14:[address]: MATTEO WASHINGTON DEPT: [facility] Cytology RECD BY: Yusra Aguilera Tissues: 1 - CX/ENDOCX FOR PAP SMEARS Procedures: PAP THIN PREP/UVM Screening HPV DNA PROBE Comments: [id number] (HPV 16 & 18/45)
[2022-06-18 20:59] LABS: TSH (W/Ref FT4) < 0.01 uIU/mL (0.36-3.74)
[2022-06-18 21:16] LABS: FREE T4 1.69 ng/dL (0.76-1.46)
== END 2022-06-18 15:22 | disposition home or self-care (01) ==
LOC: NCHCN 15:21
PROVIDERS: PCP Nurse Practitioner Family; Visit Provider Nurse Practitioner Family
DX: E03.9 Hypothyroidism, unspecified (principal); Z11.51 Encounter for screening for human papillomavirus (HPV); R87.810 Cervical high risk human papillomavirus (HPV) DNA test positive; Z01.419 Encounter for gynecological examination (general) (routine) without abnormal findings
CPT/HCPCS: 88142; 84439; 84443; 87624

== ENCOUNTER 2022-06-30 01:52 | Outpatient (CLI) | payer OTHER, MEDICAID, SELFPAY ==
--- NOTE | 2022-06-30 14:40 | DI.MAMMO_ITS ---
Exam(s) MAMMO SCREENING EXAM: MAMMO SCREENING CLINICAL HISTORY: SCREENING MAMMO FOR BREAST CANCER Z12.39 TECHNIQUE: Mammograms were interpreted according to the usual protocol including computer analysis w [facility] CAD system, tomosynthesis and C-view imaging. COMPARISON: 2018 and 2019 FINDINGS: The breasts are composed of scattered fibroglandular densities, Breast Density category B. No suspicious masses or suspicious microcalcifications are seen. Significant interval decrease in bi lateral areas of nodularity. No skin thickening or abnormal axillary lymph nodes are seen. There are no new findings from prior exams. IMPRESSION: BI-RADS Cat 2 - Benign Findings Yearly screening mammography is recommended. Breast Density - Category B, scattered fibroglandular densities. A negative radiographic report should not delay biopsy if a dominant or clinically suspicious mass is present. Up to ten percent of cancers are not identified on mammography. A negative report may reinforce clinical impression. Adenosis and dense breasts may obscure an underlying neoplasm. False positive reports average 6 to 10%. Patient will receive a letter notifying them of these results.
== END 2022-06-30 02:12 ==
LOC: DI 01:52
PROVIDERS: PCP Nurse Practitioner Family; Visit Provider Nurse Practitioner Family
DX: Z12.31 Encounter for screening mammogram for malignant neoplasm of breast (principal)
CPT/HCPCS: 77063; 77067

== ENCOUNTER → 2022-07-09 09:16 | Outpatient (BNVA) | payer OTHER, MEDICAID, SELFPAY | PROVIDERS: PCP Nurse Practitioner Family; Referring Provider Nurse Practitioner Family; Visit Provider Surgery | DX: Z01.818 Encounter for other preprocedural examination (principal); Z12.11 Encounter for screening for malignant neoplasm of colon; Z95.2 Presence of prosthetic heart valve ==

== ENCOUNTER 2022-08-11 06:06 | Day surgery (SDC) | payer OTHER, MEDICAID, SELFPAY ==
--- NOTE | 2022-08-10 19:38 | HPE_ITS ---
Date of service: 08/11/22 Time of Service: 07:09 Assessment and Plan Assessment and plan (1) Screening for colon cancer: Status: Acute Assessment and plan: Proceed with screening EGD and colonoscopy as planned History of Present Illness History of Present Illness Chief Complaint: Screening colonoscopy Narrative: She is 52 years old, and has a fairly complex medical history that is most significant for aortic valve replacement, and SLE with associated pulmonary emboli.? Since her last visit, she has been doing pretty well.? Unfortunately, she did develop COVID in the interim.? She was treated with Paxlovid and had a favorable response.? Since then, she has been getting back to her usual state of health.? She continues to deny any symptoms of colorectal disease such as melena or hematochezia.? We did talk in more detail about her gastroesophageal reflux disease.? Although she has had a favorable response to treatment with pantoprazole, she continues to have intermittent episodes of dyspepsia that are most influenced by specific food types. She is here for screening EGD and colonoscopy. PFSH All Active Problems Sleep apnea (Acute) GERD (gastroesophageal reflux disease) (Acute) Will need to bridge with lovenox due to mechanical valve Diverticulosis of colon (Acute 09/19/14) Lupus (Acute 09/19/14) H/O mechanical aortic valve replacement (Acute) Pulmonary embolism (Chronic) History of cardiomyopathy (Acute) Terminal ileitis (Acute) Supratherapeutic INR (Acute) Screening for colon cancer (Acute) Chronic anticoagulation (Acute) History of total bilateral knee replacement (Acute 2004) Spinal stenosis (Acute) Chronic right SI joint pain (Acute) Medical History Allergic rhinitis Aortic insufficiency Cardiomyopathy Combined abdominal and pelvic pain 2014. 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 CT of abd showed diverticulosis w/o diverticulitis of colon. Depression Diverticulosis of colon noted on CT of abd as eval for abd and pelvic pain. Fatty infiltration of liver nl LFTs with exception of Alk Phosphatase. Hiatal hernia Seen on EGD with Dr Fofana on 12/29/17, he recommended a barium swallow Hyperlipidemia (09/19/14) Hypertension (09/19/14) Hypothyroidism Insomnia Late effects of CVA (cerebrovascular accident) 1991 Left groin mass (11/10/17) Lupus Hx of CVA, antiphospholipid AB, CHF. On chronic anticoagulation. Migraine (09/19/14) JAN (obstructive sleep apnea) Renal colic Vulvar lesion Surgical History Dilation and curettage 1989 Endometrial Ablation 2003 H/O aortic valve replacement 2019 History of esophagogastroduodenoscopy (EGD) (12/29/17) Dr Fofana, hiatal hernia - recommends barium swallow. Replacement of total knee joint 2004 bilateral Family History Mother Osteoporosis Hypertension Hyperlipidemia Diabetes Father Hyperlipidemia Hypertension Heart disease Grandmother Heart disease Social History Smoking/Tobacco Use Status: Former Tobacco Use Quit Date: 04/06/91 Tobacco: How many years used: 2 Smoking risk assessment performed?: Yes Alcohol Intake: current Alcohol Intake frequency: holidays/special occasions only Alcohol type: hard liquor Drug use: Never Substance use type: does not use Household members: spouse Number of Children: 2 current occupation: Disabled Current gender identity: female What type of physical activity do you participate in: walking Do you feel safe at home: Yes Do you feel safe in your relationship?: Yes Meds Allergies and Home Medications Allergies Allergy/AdvReac Type Severity Reaction Status Date / Time tramadol AdvReac Intermediate GI Upset Verified 08/07/22 14:36 Home Medications Medication Instructions Recorded Confirmed Type cetirizine 10 mg tablet 10 mg PO PRN PRN 02/27/16 08/07/22 History hydroxychloroquine 200 mg tablet 200 mg PO BID 02/27/16 08/07/22 History levothyroxine 25 mcg tablet 25 mcg PO DAILY #60 tabs 03/05/17 08/07/22 Rx qcrirjhhzsym-Iu-igsf-minerals 1 ea PO DAILY 12/25/17 08/07/22 History (Multiple Vitamin, Womens tablet) aspirin 81 mg chewable tablet 81 mg PO DAILY 02/17/18 08/07/22 History albuterol sulfate 90 mcg/actuation 2 inh inhalation Q4H PRN PRN 03/18/20 08/07/22 History aerosol inhaler fluoxetine 20 mg capsule 40 mg PO DAILY 03/18/20 08/07/22 History fluticasone propionate 110 2 inh inhalation DAILY 03/18/20 08/07/22 History mcg/actuation HFA aerosol inhaler (Flovent HFA) pantoprazole 40 mg tablet,delayed 40 mg PO BID PRN PRN 03/18/20 08/07/22 History release lisinopril 5 mg tablet 5 mg PO DAILY #90 tabs 08/17/20 08/07/22 Rx sucralfate 1 gram tablet (Carafate) 1 g PO BID #60 tabs 05/16/21 08/07/22 Rx acetaminophen 500 mg tablet 1,000 mg PO Q6H PRN 10/03/21 08/07/22 History atorvastatin 40 mg tablet 40 mg PO QHS 10/03/21 08/07/22 History budesonide 90 mcg/actuation breath 2 inh inhalation BID 10/03/21 08/07/22 History activated powder inhaler levothyroxine 150 mcg tablet 150 mcg PO DAILY 10/03/21 08/07/22 History promethazine 12.5 mg tablet 12.5 mg PO Q6H PRN 10/03/21 08/07/22 History warfarin 1 mg tablet (Coumadin) 1 mg PO DAILY 10/03/21 08/07/22 History warfarin 5 mg tablet 5 mg PO DAILY 10/03/21 08/07/22 History diclofenac sodium 3 % topical gel 1 applic topical BID 11/12/21 08/07/22 History methotrexate IM .weekly 12/25/21 07/09/22 History metoprolol succinate 25 mg 25 mg PO DAILY #90 tabs 12/30/21 08/07/22 Rx tablet,extended release 24 hr prednisone 5 mg tablet 5 mg PO BID Left knee pain #30 tabs 01/06/22 08/07/22 Rx gabapentin 300 mg capsule 300 mg PO QHS #90 caps 04/24/22 08/07/22 Rx enoxaparin 150 mg/mL subcutaneous 150 mg subcut DAILY 07/09/22 08/07/22 Rx syringe Anticoagulation #10 mL Exam Const General: cooperative, healthy appearing and comfortable Orientation: awake and oriented x3 Eyes General: appearance normal, both eyes and all related structures Conjunctivae: conjunctivae normal Sclera: sclerae normal Resp Effort & Inspection: normal respiratory effort and able to speak in complete sentences Auscultation: clear to auscultation bilaterally Cardio Jugular venous pressure: no JVD Rate: regular rate Rhythm: regular rhythm Heart Sounds: S1 normal and S2 normal GI Inspection: non-distended Palpation: soft, no guarding, no hernias and nontender Auscultation: normal bowel sounds Skin General skin exam: normal turgor Neuro General: patient alert, patient awake and patient oriented x3 Cognition: normal cognition Extrem Right lower extremity: no edema Left lower extremity: no edema Time Spent Time spent with Patient: <40 minutes Time was spent: preparing to see the patient(eg.review tests)
--- NOTE | 2022-08-10 19:41 | W.PM.DSUDISC ---
Date of service: 08/11/22 Time of Service: 09:24 Discharge Plan Disposition Patient Disposition: Home Condition: Good Discharge Details Reason For Visit: EGD and colonoscopy Attending Provider: Arturo Aviles Primary Care Provider: MATTEO WASHINGTON Home Meds and New Rx's Prescriptions: Continued prednisone 5 mg tablet 5 mg PO BID Qty: 30 0RF Rx Instructions: Take 2 tablets once a day for 10 days. Then 1 tablet once a day for 10 days gabapentin 300 mg capsule 300 mg PO QHS Qty: 90 3RF enoxaparin 150 mg/mL syringe 150 mg subcut DAILY Qty: 10 0RF Rx Instructions: Take your last dose of warfarin on August 05. Start checking INR on August 06. Check your INR every day. When your INR falls below 2.5 start using the enoxaparin injection as instructed. Take the subcutaneous injection at 6 PM daily. Call our office on 08/10/2022 to report your INR. aspirin 81 mg tablet,chewable 81 mg PO DAILY lisinopril 5 mg tablet 5 mg PO DAILY Qty: 90 4RF methotrexate 4 mg IM .weekly Rx Instructions: Per pt and , 4mg weekly on Thursday levothyroxine 25 MCG tablet 25 mcg PO DAILY Qty: 60 1RF Rx Instructions: 1 tab PO daily levothyroxine 150 mcg tablet 150 mcg PO DAILY atorvastatin 40 mg tablet 40 mg PO QHS budesonide 90 mcg/actuation aerosol powdr breath activated 2 inh inhalation BID promethazine 12.5 mg tablet 12.5 mg PO Q6H PRN warfarin [Coumadin] 1 mg tablet 1 mg PO DAILY warfarin 5 mg tablet 5 mg PO DAILY Rx Instructions: takes 5mg on Thursday, then 7.5 mg daily T-Sun acetaminophen 500 mg tablet 1,000 mg PO Q6H PRN diclofenac sodium 3 % gel 1 applic topical BID metoprolol succinate 25 mg tablet extended release 24 hr 25 mg PO DAILY Qty: 90 6RF cetirizine 10 MG tablet 10 mg PO PRN PRN hydroxychloroquine 200 MG tablet 200 mg PO BID Multiple Vitamin, Womens Tablet 1 ea PO DAILY pantoprazole 40 mg tablet,delayed release (DR/EC) 40 mg PO BID PRN PRN Patient Comments: TK 1 T PO BID albuterol sulfate 90 mcg/actuation HFA aerosol inhaler 2 inh INHALATION Q4H PRN PRN fluoxetine 20 mg capsule 40 mg PO DAILY Patient Comments: TK 1 C PO D fluticasone propionate [Flovent HFA] 110 mcg/actuation HFA aerosol inhaler 2 inh INHALATION DAILY sucralfate [Carafate] 1 gram tablet 1 g PO BID Qty: 60 0RF Discontinued polyethylene glycol 3350 17 gram/dose powder 238 g PO ONCE Qty: 238 0RF Rx Instructions: take per colonoscopy instructions bisacodyl [Dulcolax (bisacodyl)] 5 mg tablet,delayed release (DR/EC) 5 mg PO ONCE Qty: 4 0RF Rx Instructions: take per colonoscopy instructions Discharge Instructions Instructions: Diverticulosis (GEN), Diverticulosis Diet (GEN), Diverticulitis (GEN) Additional Instructions: Jill, we were able to complete your upper and lower endoscopy today without any difficulty. Your upper endoscopy appears totally normal. Your colonoscopy shows no evidence of any kind of tumors or polyps. You do, however, have extensive sigmoid diverticulosis. These are small weak spots in the colon wall. They can become infected and inflamed. Have attached some information here regarding general management of diverticulosis (the condition of having diverticula) as well as diverticulitis (when they actually become inflamed). You should resume your warfarin today. Continue to use the enoxaparin (Lovenox) bridge until your INR reaches 2.4, at which time you can discontinue the enoxaparin. You should consider another screening colonoscopy in 10 years to reduce your chances of dying from colon cancer over the course of your lifetime. 1. If tolerated, consume a soft, low fiber diet for 1-2 days. 2[address] Do not drive, drink alcohol, operate machinery, make critical decisions, or do activities that require coordination or balance for 24 hours. 3. Because air was put into your colon during the procedure, expelling air from your rectum (passing gas or farting) is normal. 4. You may not have a bowel movement for 1-3 days because of the colonoscopy prep. This is normal. 5. You may experience a sore throat for 24 to 48 hours. You may use throat lozenges or gargle with warm salt water to relieve the discomfort. 6. Because air was put into your stomach during the procedure, you may experience some belching. 7. Go directly to the emergency room if you notice any of the following: Develop chills (warm to touch), or if you have a thermometer and your temperature is above 101 Difficulty breathing or difficultly swallowing Persistent vomiting Severe abdominal pain, other than gas cramps Severe chest pain Black, tarry stools Any bleeding ? exceeding one tablespoon 8. Call your physician if the site where your intravenous was started becomes red, swollen, painful, and warm to touch. 9. Your physician has reviewed your pre-procedure medications. Please continue to take those medications as previously ordered. You will be given specific information/education regarding any changes to your medications before leaving. Activity:: Activity as Tolerated Diet:: As Tolerated Discharge Orders Discharge Orders: Discharge Order (Routine); Ordered 08/10/22 Ordered By: Arturo Aviles DS: Diagnosis Discharge Diagnosis (1) Screening for colon cancer: Status: Acute Asessment and Plan: Negative EGD and screening colonoscopy
--- NOTE | 2022-08-10 19:43 | W.COLOREPORT ---
Date of service: 08/11/22 Time of Service: 09:28 Colonoscopy Report Date of procedure: 08/11/22 Pre-op diagnosis general: Screening EGD and colonoscopy Post-op diagnosis procedure note: other (Colonic diverticulosis) Procedure: EGD and colonoscopy Surgeon: Arturo Aviles Anesthesia Type: General:No Airway Estimated blood loss (mL): 0 Pathology: none sent Complications: None Disposition: same day Indications: She is 52 years old, and has a fairly complex medical history that is most significant for aortic valve replacement, and SLE with associated pulmonary emboli.? Since her last visit, she has been doing pretty well.? Unfortunately, she did develop COVID in the interim.? She was treated with Paxlovid and had a favorable response.? Since then, she has been getting back to her usual state of health.? She continues to deny any symptoms of colorectal disease such as melena or hematochezia.? We did talk in more detail about her gastroesophageal reflux disease.? Although she has had a favorable response to treatment with pantoprazole, she continues to have intermittent episodes of dyspepsia that are most influenced by specific food types. Prep: Miralax/Dulcolax Procedure Start Time: 08:39 Procedure End Time: 09:11 Retraction Time: 15 Findings: Colon diverticulosis Procedure Description: After the initiation of monitored anesthetic care, and with the assistance of a bite block, I advanced a standard gastroscope through the mouth past the hypopharynx and into the esophagus.? Under the direct vision of the scope, I advanced down the esophagus into the stomach.? Once I entered the stomach, I performed a brief inspection, followed by retroflexion towards the gastric cardia.? This appeared normal.? After that, I gently advanced the scope around the incisura angularis and examined the pylorus.? This also appeared normal.? Next, I advanced the scope through the pylorus into the duodenum.? The mucosa was pink and healthy appearing.? There were no abnormalities.? I was able to visualize bile draining into the duodenum through the ampulla Vater. ?Next, I began retracting the endoscope.? I brought the camera back into the stomach and carefully examined the antrum, gastric body, and gastric cardia. These were all normal. I then brought the camera up into the esophagus at the GE junction. The Z-line and GE junction were normal-appearing at 37 cm. ?Finally, I withdrew the scope along the length of the esophagus taking great care to examine the entirety of the mucosa.? I did not appreciate any abnormalities. We then moved Cecilia into the left lateral decubitus position, I began by performing an external anorectal exam.? Perineum and skin were normal, as was the anal verge.? There was no evidence of external hemorrhoids.? Next, I performed a digital rectal exam.? I did not appreciate any abnormal findings.? Next, I advanced a colonoscope into the rectal vault.? I performed retroflexion.? This was normal.? Using insufflation, I then advanced the colonoscope beyond the rectal folds and into the sigmoid colon before advancing towards the cecum.? There was extensive, cavernous [place] sigmoid diverticulosis extending from approximately 20 cm to approximately 45 centimeters above the anal verge. Great care was taken to navigate the true lumen of the colon, and minimize any trauma to the surrounding diverticulosis. The quality of the prep was excellent.? The scope was noted to be in the cecum by identification of the ileocecal valve and appendiceal orifice.? I then began withdrawing the colonoscope using repeated irrigation as necessary for full evaluation of the colonic mucosa. ?Once the scope was withdrawn to the level of the rectum, great care was taken to examine portions of the rectal folds.? Finally, the scope was withdrawn and the patient was brought to the same-day surgery recovery unit as the anesthetic wore off. ?The findings and instructions were shared with the patient prior to discharge.
--- NOTE | 2022-08-11 05:53 | ANES.PREOP_ITS ---
General Info Date of Service Date Performed: 08/11/22 Height: 5 ft 3 in Weight: 96.162 kg Body Mass Index (BMI): 37.5 Surgical Procedure: Operation Date: 08/11/22 07:35 Proposed Procedure Side Surgeon p Colonoscopy/Gastroscopy Arturo Aviles MD Meds Allergies and Home Medications Allergies Allergy/AdvReac Type Severity Reaction Status Date / Time tramadol AdvReac Intermediate GI Upset Verified 08/07/22 14:36 Home Medication Medication Instructions Recorded cetirizine 10 mg tablet 10 mg PO PRN PRN 02/27/16 hydroxychloroquine 200 mg tablet 200 mg PO BID 02/27/16 levothyroxine 25 mcg tablet 25 mcg PO DAILY #60 tabs 03/05/17 joppvrdcnbts-Ma-yqxm-minerals 1 ea PO DAILY 12/25/17 (Multiple Vitamin, Womens tablet) aspirin 81 mg chewable tablet 81 mg PO DAILY 02/17/18 albuterol sulfate 90 mcg/actuation 2 inh inhalation Q4H PRN PRN 03/18/20 aerosol inhaler fluoxetine 20 mg capsule 40 mg PO DAILY 03/18/20 fluticasone propionate 110 2 inh inhalation DAILY 03/18/20 mcg/actuation HFA aerosol inhaler (Flovent HFA) pantoprazole 40 mg tablet,delayed 40 mg PO BID PRN PRN 03/18/20 release lisinopril 5 mg tablet 5 mg PO DAILY #90 tabs 08/17/20 sucralfate 1 gram tablet (Carafate) 1 g PO BID #60 tabs 05/16/21 acetaminophen 500 mg tablet 1,000 mg PO Q6H PRN 10/03/21 atorvastatin 40 mg tablet 40 mg PO QHS 10/03/21 budesonide 90 mcg/actuation breath 2 inh inhalation BID 10/03/21 activated powder inhaler levothyroxine 150 mcg tablet 150 mcg PO DAILY 10/03/21 promethazine 12.5 mg tablet 12.5 mg PO Q6H PRN 10/03/21 warfarin 1 mg tablet (Coumadin) 1 mg PO DAILY 10/03/21 warfarin 5 mg tablet 5 mg PO DAILY 10/03/21 diclofenac sodium 3 % topical gel 1 applic topical BID 11/12/21 methotrexate IM .weekly 12/25/21 metoprolol succinate 25 mg 25 mg PO DAILY #90 tabs 12/30/21 tablet,extended release 24 hr prednisone 5 mg tablet 5 mg PO BID Left knee pain #30 tabs 01/06/22 gabapentin 300 mg capsule 300 mg PO QHS #90 caps 04/24/22 enoxaparin 150 mg/mL subcutaneous 150 mg subcut DAILY 07/09/22 syringe Anticoagulation #10 mL Current Visit Medications: Current Medications Generic Name Dose Route Start Last Admin Trade Name Freq PRN Reason Stop Dose Admin Hyoscyamine Sulfate 0.125 mg 08/10/22 19:44 Hyoscyamine 0.125 Mg Sl/Oral/Chew SL DIRECTED PRN Ringer's Solution 1,000 mls @ 80 mls/hr 08/11/22 06:00 IV 09/07/22 23:59 INFUSION [facility] IV Miscellaneous Supplies 1 each 08/11/22 06:00 Iv Access IV 09/07/22 23:59 DIRECTED [facility] Ondansetron HCl 4 mg 08/10/22 19:44 Ondansetron 4 Mg/2 Ml Vial IVP Q4H PRN PRN Nausea / Vomiting Sodium Chloride 0 ml 08/11/22 06:00 Normal Saline Flush 10 Ml Syr IV 09/07/22 23:59 PRN PRN Sodium Chloride 0 ml 08/11/22 06:00 Normal Saline 10 Ml Vial IJ 09/07/22 23:59 DIRECTED PRN Sterile Water 0 ml 08/11/22 06:00 Water,Injection,Sterile 10 Ml Vial IJ 09/07/22 23:59 DIRECTED PRN PFSH Active Problems Active Problems: Problem Status Onset Code Sleep apnea GERD (gastroesophageal reflux disease) K21.9 Diverticulosis of colon 09/19/14 K57.30 Lupus 09/19/14 L93.0 H/O mechanical aortic valve replacement Z95.2 Pulmonary embolism I26.99 History of cardiomyopathy Z86.79 Terminal ileitis K50.00 Supratherapeutic INR R79.1 Screening for colon cancer Z12.11 Chronic anticoagulation Z79.01 History of total bilateral knee replacement 2004 Z96.653 Spinal stenosis M48.00 Chronic right SI joint pain M53.3, G89.29 Medical History Medical History Allergic rhinitis Aortic insufficiency Cardiomyopathy Combined abdominal and pelvic pain 2014. 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 CT of abd showed diverticulosis w/o diverticulitis of colon. Depression Diverticulosis of colon noted on CT of abd as eval for abd and pelvic pain. Fatty infiltration of liver nl LFTs with exception of Alk Phosphatase. Hiatal hernia Seen on EGD with Dr Fofana on 12/29/17, he recommended a barium swallow Hyperlipidemia (09/19/14) Hypertension (09/19/14) Hypothyroidism Insomnia Late effects of CVA (cerebrovascular accident) 1991 Left groin mass (02/13/17) Lupus Hx of CVA, antiphospholipid AB, CHF. On chronic anticoagulation. Migraine (09/19/14) JAN (obstructive sleep apnea) Renal colic Vulvar lesion Surgical History Surgical History Dilation and curettage 1989 Endometrial Ablation 2003 H/O aortic valve replacement 2019 History of esophagogastroduodenoscopy (EGD) (12/29/17) Dr Fofana, hiatal hernia - recommends barium swallow. Replacement of total knee joint 2004 bilateral Tobacco Smoking/Tobacco Use Status: Former Tobacco Use Alcohol Alcohol Intake: current Alcohol intake frequency: holidays/special occasions only Alcohol type: hard liquor Substance Use Substance use: Never Substance use type: does not use Vital Signs and Lab Results Lab Results Blood Type / Crossmatch: No Data to Display Complete Blood Count: No Data to Display Complete Metabolic Panel: No Data to Display Liver Function Panel: No Data to Display Coagulation Panel: No Data to Display Cardiac Panel: No Data to Display Arterial Blood Gas: No Data to Display Venous Blood Gas: No Data to Display Pancreas Panel: No Data to Display Thyroid Panel: No Data to Display Infectious Disease: No Data to Display Blood Cultures: No Data to Display Toxicology Panel: No Data to Display Panel: No Data to Display Imaging and Studies Imaging and Studies Study information below may be from another EMR and interpreted by another provider. Please see original notes in EMR for more complete details. EKG Summary: 01/24: sinus, likely LAE, LVH. Echocardiogram Summary: 01/24: LVEF 55-60%, AV peak gradient 16 mmhg, AV mean gradient 9 mmhg, mild MR, normal RvFxn, PAS 35-40. 04/23: LVEF 55-60% bicuspid AoV with severe regurg, restrictive mitral flow pattern. PAS 25-35 Cardiac Catheterization Summary: 2018: normal coronary arteries. Pulmonary Function Summary: 07/27: normal, mild desaturation with ambulation. Anesthesia Assessment and Plan Anesthesia History Personal History: No History of Anesthesia Complications Family History: No Family History of Anesthesia Complications Exercise Tolerance Exercise Tolerance: Metabolic Equivalents>4 Cardiac & Pulmonary Exam Cardiac Exam: Normal S1/S2 Heart Sounds Pulmonary Exam: Clear Bilateral Breath Sounds Implantable Cardiac Device Does patient have a Pacemaker or an ICD?: No Airway Exam Known Difficult Airway: No Mallampati Class: 3 Mouth Opening: Normal (> 3cm) Thyromental Distance: Greater than 3 cm Neck Range of Motion: Limited ROM Neck Circumference: Normal Teeth Condition: Normal Dentition ASA Classification ASA Score: ASA 3 Emergency Case?: No NPO Status NPO Status: NPO Clears >2 hours, Solids >8 hours Status Status: Not Relevant due to Medical History Anesthesia Plan Resuscitation Status: Full Code Anesthesia Technique: General Anesthesia Airway Planned: Natural Airway Monitors Used: Standard Monitors Preoperative Comments:: 52 yo female for EGD/colo. Sig PMHx: S/p AVR, CHF, JAN, antiphospholipid/PE/CVA, spinal stenosis, former smoker, occ EtOH. Previous EGD: prop, natural airway, no issues.
[2022-08-11] MEDS: Lactated Ringers 1,000 ML 80 ML IV (06:48)
[2022-08-11 07:09] VITALS: BMI 37.5
[2022-08-11 07:36] LABS: Prothrombin Time 11.7 sec (9.3-11.0)
[2022-08-11 08:02] LABS: INR 1.1 (0.9-1.1)
[2022-08-11 09:15] VITALS: BP 91/49; PULSE 54; RESP 17; TEMP 36.1; O2SAT 99
--- NOTE | 2022-08-11 09:44 | W.ANESPOSTOP ---
Postoperative Evaluation Date, Time and Location Date Performed: 08/11/22 Time Performed: 09:44 Patient Location: Day Surgery Unit Vital Signs Most Recent Imported Vital Signs: Most Recent Vital Signs Temp Pulse Resp BP Pulse Ox 36.1 C L 54 L 17 91/49 L 99 08/11/22 09:15 08/11/22 09:15 08/11/22 09:15 08/11/22 09:15 08/11/22 09:15 Pain Score Most Recent Pain Score: Most Recent Pain Score Pain Level 2 08/11/22 09:15 Assessment Mental Status: Awake (Alert & Oriented to Patient Baseline) Airway and Respiratory Function: Patent airway with normal (patient baseline) respiratory exam Cardiovascular Function: Hemodynamically Stable Hydration Status: Adequately Hydrated Nausea & Vomiting: No Nausea or Vomiting Pain: Pt. Denies Any Pain Peripheral Nerve Block: Patient did not receive a nerve block
[2022-08-11 09:45] VITALS: BP 105/71; PULSE 62; RESP 17; TEMP 36.6; O2SAT 99
[2022-08-11 13:12] VITALS: BP 105/71; PULSE 62; RESP 17; TEMP 36.6; O2SAT 99
== END 2022-08-11 10:10 | disposition home or self-care (01) ==
PROVIDERS: PCP Nurse Practitioner Family; Visit Provider Surgery
PROC: (CPT 45378; principal; 2022-08-11 07:30)
DX: Z12.11 Encounter for screening for malignant neoplasm of colon (principal); K21.9 Gastro-esophageal reflux disease without esophagitis; K57.30 Diverticulosis of large intestine without perforation or abscess without bleeding; Z86.711 Personal history of pulmonary embolism; Z79.01 Long term (current) use of anticoagulants
CPT/HCPCS: 45378; 43235; 36415; 85610; J2405

== ENCOUNTER 2022-09-11 18:33 | Outpatient (REF) | payer OTHER, MEDICAID, SELFPAY ==
[2022-09-11 19:09] LABS: Calculated LDL 129 mg/dL (<100); Cholesterol 214 mg/dL (<200); HDL Cholesterol 49 mg/dL (40-60); Triglyceride 180 mg/dL (<150)
[2022-09-11 19:12] LABS: TSH (W/Ref FT4) < 0.01 uIU/mL (0.36-3.74)
[2022-09-11 19:56] LABS: FREE T4 1.92 ng/dL (0.76-1.46)
== END 2022-09-11 18:34 | disposition home or self-care (01) ==
LOC: NCHCN 18:33
PROVIDERS: PCP Nurse Practitioner Family; Visit Provider Nurse Practitioner Family
DX: E03.9 Hypothyroidism, unspecified (principal)
CPT/HCPCS: 80061; 84439; 84443

== ENCOUNTER 2022-12-15 14:57 | Outpatient (REF) | payer OTHER, MEDICAID, SELFPAY | END 2022-12-15 14:58 | disposition home or self-care (01) | LOC: LBN 14:57 | PROVIDERS: PCP Nurse Practitioner Family; Visit Provider Nurse Practitioner Family | DX: J02.9 Acute pharyngitis, unspecified (principal) | CPT/HCPCS: 87070 ==

== ENCOUNTER 2022-12-30 18:10 | Outpatient (REF) | payer OTHER, MEDICAID, SELFPAY | END 2022-12-30 18:11 | disposition home or self-care (01) | LOC: NCHCN 18:10 | PROVIDERS: PCP Nurse Practitioner Family; Visit Provider Nurse Practitioner Family | DX: R30.0 Dysuria (principal) | CPT/HCPCS: 87077; 87086; 87186 ==

== ENCOUNTER 2023-01-12 13:16 | Emergency (ER) | payer OTHER, MEDICAID, SELFPAY ==
[2023-01-12 13:19] VITALS: BP 126/70; PULSE 73; RESP 18; TEMP 37.2; O2SAT 97
--- NOTE | 2023-01-12 13:30 | DI.RAD_ITS ---
Exam(s) XR CHEST 2V PA LATERAL EXAM: XR CHEST 2V PA LATERAL CLINICAL HISTORY: cough TECHNIQUE: 2D digital imaging was performed. COMPARISON: CR,RF RF barium swallow UGI from 01/21/2018 FINDINGS: HEART: Normal size. Aorta: Not dilated. Valve prosthesis. PULMONARY VASCULATURE: Normal. LUNGS: Clear. PLEURAL SPACE: No pleural effusion or pneumothorax. BONE:Sternal wires. IMPRESSION: No acute abnormality. DATA REPOSITORY: RADIATION DOSE DELIVERED:
--- NOTE | 2023-01-12 13:59 | ED.GENADUL_ITS ---
Discharge Plan Disposition Patient Disposition: Home Discharge Details Clinical Impression: Cough Primary Care Provider: MATTEO WASHINGTON ED Provider: Shannan Sidhu Home Meds and New Rx's Prescriptions: New promethazine 6.25 mg/5 mL syrup 12.5 mg PO Q6H PRNQty: 150 0RF Rx Instructions: Take by mouth every 6 hours as needed for cough prednisone 20 mg tablet 40 mg PO DAILY 5 Days Qty: 10 0RF No Action prednisone 5 mg tablet 5 mg PO BID Qty: 30 0RF Rx Instructions: Take 2 tablets once a day for 10 days. Then 1 tablet once a day for 10 days gabapentin 300 mg capsule 300 mg PO QHS Qty: 90 3RF enoxaparin 150 mg/mL syringe 150 mg subcut DAILY Qty: 10 0RF Rx Instructions: Take your last dose of warfarin on August 05. Start checking INR on August 06. Check your INR every day. When your INR falls below 2.5 start using the enoxaparin injection as instructed. Take the subcutaneous injection at 6 PM daily. Call our office on 08/10/2022 to report your INR. aspirin 81 mg tablet,chewable 81 mg PO DAILY lisinopril 5 mg tablet 5 mg PO DAILY Qty: 90 4RF methotrexate 4 mg IM .weekly Rx Instructions: Per pt and , 4mg weekly on Thursday levothyroxine 25 MCG tablet 25 mcg PO DAILY Qty: 60 1RF Rx Instructions: 1 tab PO daily levothyroxine 150 mcg tablet 150 mcg PO DAILY atorvastatin 40 mg tablet 40 mg PO QHS budesonide 90 mcg/actuation aerosol powdr breath activated 2 inh inhalation BID warfarin [Coumadin] 1 mg tablet 1 mg PO DAILY warfarin 5 mg tablet 5 mg PO DAILY Rx Instructions: takes 5mg on Thursday, then 7.5 mg daily T-Sun acetaminophen 500 mg tablet 1,000 mg PO Q6H PRN diclofenac sodium 3 % gel 1 applic topical BID metoprolol succinate 25 mg tablet extended release 24 hr 25 mg PO DAILY Qty: 90 6RF cetirizine 10 MG tablet 10 mg PO PRN PRN hydroxychloroquine 200 MG tablet 200 mg PO BID Multiple Vitamin, Womens Tablet 1 ea PO DAILY pantoprazole 40 mg tablet,delayed release (DR/EC) 40 mg PO BID PRN PRN Patient Comments: TK 1 T PO BID albuterol sulfate 90 mcg/actuation HFA aerosol inhaler 2 inh INHALATION Q4H PRN PRN fluoxetine 20 mg capsule 40 mg PO DAILY Patient Comments: TK 1 C PO D fluticasone propionate [Flovent HFA] 110 mcg/actuation HFA aerosol inhaler 2 inh INHALATION DAILY sucralfate [Carafate] 1 gram tablet 1 g PO BID Qty: 60 0RF Discharge Instructions Instructions: Acute Cough (ED) Additional Instructions: Start medications as prescribed. Continue your home medications. Follow-up with your primary care provider or methods and procedures analyst for further evaluation if symptoms do not improve Medical Decision Making Emergent evaluation of cough. Initial differential includes viral illness, pneumonia, heart failure. Patient is not hypoxic. She has recently been treated with antibiotics at an urgent care, but her cough symptoms have continued to worsen. Initial plan for chest x-ray. Medication for cough. Given the patient's history of CHF, lupus, cardiomyopathy, will check blood work 1420: Chest x-ray reviewed and independently interpreted: No cardiomegaly, no pleural effusion, no focal consolidation 1450: viral testing negative 1520: Reviewed remaining lab work. BNP is slightly elevated at 291 but this seems stable for the patient. Patient reports significant improvement after Phenergan syrup. At this time I feel she would not benefit from additional antibiotics. Will discharge with Phenergan syrup and a short course of steroids. Recommend close follow-up with primary care or cardiology. Lab Data Lab results reviewed: Yes I reviewed the patient's lab results. ECG Data Attestation: I personally reviewed and interpreted this ECG (s) as follows: Prior ECG tracings: available for review HPI General Date/Time Provider Initiated Documentation: 01/12/23 13:20 . Limitations to Documentation: no limitations . Information obtained by: patient and family . HPI Narrative: 53-year-old female with past medical history including CHF, mechanical aortic valve, cardiomyopathy presents for evaluation of cough. She reports that over the last 3 weeks, the symptoms have been present. Initially started with strep throat which was treated at urgent care with antibiotics. Reports that she has had 3 rounds of antibioitcs in the last month. She reports that she has been having persistent cough. Cough occasionally productive of green and yellow mucus. She has been taking Tessalon Perles without significant improvement. She denies any shortness of breath, denies any lower extremity edema. Related Data Home Medications Medication Instructions Recorded Confirmed cetirizine 10 mg tablet 10 mg PO PRN PRN 02/27/16 01/12/23 hydroxychloroquine 200 mg tablet 200 mg PO BID 02/27/16 01/12/23 levothyroxine 25 mcg tablet 25 mcg PO DAILY #60 tabs 03/05/17 01/12/23 [id number]-[id number]-fxlk-minerals 1 ea PO DAILY 12/25/17 01/12/23 (Multiple Vitamin, Womens tablet) aspirin 81 mg chewable tablet 81 mg PO DAILY 02/17/18 01/12/23 albuterol sulfate 90 mcg/actuation 2 inh inhalation Q4H PRN PRN 03/18/20 01/12/23 aerosol inhaler fluoxetine 20 mg capsule 40 mg PO DAILY 03/18/20 01/12/23 fluticasone propionate 110 2 inh inhalation DAILY 03/18/20 01/12/23 mcg/actuation HFA aerosol inhaler (Flovent HFA) pantoprazole 40 mg tablet,delayed 40 mg PO BID PRN PRN 03/18/20 01/12/23 release lisinopril 5 mg tablet 5 mg PO DAILY #90 tabs 08/17/20 01/12/23 sucralfate 1 gram tablet (Carafate) 1 g PO BID #60 tabs 05/16/21 01/12/23 acetaminophen 500 mg tablet 1,000 mg PO Q6H PRN 10/03/21 01/12/23 atorvastatin 40 mg tablet 40 mg PO QHS 10/03/21 01/12/23 budesonide 90 mcg/actuation breath 2 inh inhalation BID 10/03/21 01/12/23 activated powder inhaler levothyroxine 150 mcg tablet 150 mcg PO DAILY 10/03/21 01/12/23 warfarin 1 mg tablet (Coumadin) 1 mg PO DAILY 10/03/21 01/12/23 warfarin 5 mg tablet 5 mg PO DAILY 10/03/21 01/12/23 diclofenac sodium 3 % topical gel 1 applic topical BID 11/12/21 01/12/23 methotrexate IM .weekly 12/25/21 07/09/22 metoprolol succinate 25 mg 25 mg PO DAILY #90 tabs 12/30/21 01/12/23 tablet,extended release 24 hr prednisone 5 mg tablet 5 mg PO BID Left knee pain #30 tabs 10/03/22 10/09/23 gabapentin 300 mg capsule 300 mg PO QHS #90 caps 04/24/22 01/12/23 enoxaparin 150 mg/mL subcutaneous 150 mg subcut DAILY 07/09/22 01/12/23 syringe Anticoagulation #10 mL prednisone 20 mg tablet 40 mg PO DAILY 5 days #10 tabs 01/12/23 promethazine 6.25 mg/5 mL oral 12.5 mg (10 mL) PO Q6H PRN #150 mL 01/12/23 syrup Previous Rx's Medication Instructions Recorded levothyroxine 25 mcg tablet 25 mcg PO DAILY #60 tabs 03/05/17 lisinopril 5 mg tablet 5 mg PO DAILY #90 tabs 08/17/20 sucralfate 1 gram tablet (Carafate) 1 g PO BID #60 tabs 05/16/21 metoprolol succinate 25 mg 25 mg PO DAILY #90 tabs 12/30/21 tablet,extended release 24 hr prednisone 5 mg tablet 5 mg PO BID Left knee pain #30 tabs 01/06/22 gabapentin 300 mg capsule 300 mg PO QHS #90 caps 04/24/22 enoxaparin 150 mg/mL subcutaneous 150 mg subcut DAILY 07/09/22 syringe Anticoagulation #10 mL prednisone 20 mg tablet 40 mg PO DAILY 5 days #10 tabs 01/12/23 promethazine 6.25 mg/5 mL oral 12.5 mg (10 mL) PO Q6H PRN #150 mL 01/12/23 syrup Allergies Allergy/AdvReac Type Severity Reaction Status Date / Time tramadol AdvReac Intermediate GI Upset Verified 01/12/23 13:21 General Stated Complaint: RespSymp RACHELLE: 4 PFSH All Active Problems (Updated 01/12/23 @ 15:25 by Shannan Sidhu MD) Cough (Acute) Sleep apnea (Acute) GERD (gastroesophageal reflux disease) (Acute) Will need to bridge with lovenox due to mechanical valve Diverticulosis of colon (Acute 09/19/14) Lupus (Acute 09/19/14) H/O mechanical aortic valve replacement (Acute) Pulmonary embolism (Chronic) History of cardiomyopathy (Acute) Terminal ileitis (Acute) Supratherapeutic INR (Acute) Screening for colon cancer (Acute) Chronic anticoagulation (Acute) History of total bilateral knee replacement (Acute 2004) Spinal stenosis (Acute) Chronic right SI joint pain (Acute) Medical History Allergic rhinitis Aortic insufficiency Cardiomyopathy Combined abdominal and pelvic pain 2014. Pt had neg Material Attendant eval. CT of abd showed diverticulosis w/o diverticulitis of colon. Depression Diverticulosis of colon noted on CT of abd as eval for abd and pelvic pain. Fatty infiltration of liver nl LFTs with exception of Alk Phosphatase. Hiatal hernia Seen on EGD with Dr Fofana on 12/29/17, he recommended a barium swallow Hyperlipidemia (09/19/14) Hypertension (09/19/14) Hypothyroidism Insomnia Late effects of CVA (cerebrovascular accident) 1991 Left groin mass (02/13/17) Lupus Hx of CVA, antiphospholipid AB, CHF. On chronic anticoagulation. Migraine (09/19/14) JAN (obstructive sleep apnea) Renal colic Vulvar lesion Surgical History Dilation and curettage 1989 Endometrial Ablation 2003 H/O aortic valve replacement 2019 History of esophagogastroduodenoscopy (EGD) (12/29/17) Dr Fofana, hiatal hernia - recommends barium swallow. Replacement of total knee joint 2004 bilateral Family History Mother Osteoporosis Hypertension Hyperlipidemia Diabetes Father Hyperlipidemia Hypertension Heart disease Grandmother Heart disease Social History Smoking/Tobacco Use Status: Former Tobacco Use Quit Date: 04/06/91 Tobacco: How many years used: 2 Smoking risk assessment performed?: Yes Alcohol Intake: current Alcohol Intake frequency: holidays/special occasions only Alcohol type: hard liquor Drug use: Never Substance use type: does not use Household members: spouse Number of Children: 2 current occupation: Disabled Current gender identity: female What type of physical activity do you participate in: walking Do you feel safe at home: Yes Do you feel safe in your relationship?: Yes Exam Narrative Exam Narrative: Review of Systems: All systems reviewed & are unremarkable except as noted in HPI and below Exam: Const: Well-nourished, Well-developed, appearing stated age HEENT: NACT / Eyes: PERRL, no conjunctival injection, and symmetrical lids / EARS Atraumatic external nose and ears / MOUTH Moist MM / NECK: Symmetric, trachea midline, No thyromegaly / THROAT oropharynx clear CVS: midline sternotomy noted, RRR, No murmurs or gallops. Peripheral pulses 2+ and equal in all extremities. Brisk capillary refill in all extremities. RESP: Unlabored respiratory effort, Clear to auscultation bilaterally. No wheezes rales or rhonchi GI: Soft, Nontender/Nondistended, No hepatosplenomegaly. No guarding or rebound MSK: Extremities w/o deformity or TTP, No cyanosis or clubbing, full range of motion Skin: Warm, Dry. No rashes or lesions. 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 Sensation grossly intact, no focal neurologic deficits. Psych: (AAO) x3. Appropriate mood and affect Course Vital Signs Vital signs: Vital Signs Temperature 37.2 C 01/12/23 13:19 Pulse 73 01/12/23 13:19 Respiratory Rate 18 01/12/23 13:19 Blood Pressure 126/70 01/12/23 13:19 Pulse Oximetry 97 01/12/23 13:19 Temperature 37.2 C 01/12/23 13:19 Temperature Source Skin 01/12/23 13:19 Pulse 73 01/12/23 13:19 Respiratory Rate 18 01/12/23 13:19 Blood Pressure 126/70 01/12/23 13:19 Blood Pressure Position Sitting 01/12/23 13:19 Pulse Oximetry 97 01/12/23 13:19 Oxygen Delivery Method Room Air 01/12/23 13:19 Oxygen Flow Rate 0 01/12/23 13:19 Pain Level 6 01/12/23 13:19
--- NOTE | 2023-01-12 14:15 | RT.EKG_ITS ---
APPROVED REPORT Exam: Resting ECG Reason for Exam: cough Patient Location: E HR:59 bpm ECG Measurements Heart Rate 59 AXIS NE 183 P 25 QRSd 111 QRS -18 QT 454 T 48 QTc 450 Conclusion sinus pal 59, no acute ST segment changes There are no significant changes compared to prior EKG performed on 01/24/2021 at 21:01.
[2023-01-12 14:24] VITALS: BP 126/70; PULSE 73; RESP 18; TEMP 37.2; O2SAT 97
[2023-01-12 14:28] LABS: COVID-19 PCR Negative (Negative); Influenza A PCR Negative (Negative); Influenza B PCR Negative (Negative); RSV PCR Negative (Negative)
[2023-01-12 14:44] LABS: Source Nasopharynx
[2023-01-12 14:48] LABS: Abs Immature Grans 0.04 10^3/uL (0.0-0.06); Absolute Basophil Count 0.07 10^3/uL (0.0-0.2); Absolute Eosinophil Count 0.55 10^3/uL (0.0-0.7); Absolute Lymphocyte Count 1.67 10^3/uL (1.2-3.4); Absolute Neutrophil Count 4.85 10^3/uL (1.2-6.7); Basophils % 0.9; HCT 35.5 % (36.0-46.0); HGB 12.2 g/dL (11.2-15.7); Immature Grans % 0.5; Lymphocytes % 21.2; MCH 32.2 pg (27.0-33.0); MCHC 34.4 % (32.0-36.0); MCV 94 fL (80-95); MPV 9.6 fL (8.0-11.0); Monocytes % 8.9; Neutrophils % 61.5; Platelet Count 271 10^3/uL (130-400); RBC 3.79 10^6/uL (3.93-5.22); RDW 14.1 % (11.7-14.6); RDW-SD 47.7 fL; WBC 7.88 10^3/uL (4.4-10.8)
[2023-01-12 15:10] LABS: ALT 17 U/L (14-59); AST 23 U/L (15-37); Albumin 3.3 g/dL (3.4-5.0); Alkaline Phosphatase 118 U/L (46-116); Anion Gap 6.5 mmol/L (3-11); BUN 11 mg/dL (7-18); Bilirubin, Total 0.4 mg/dL (0.2-1.0); CO2 28.5 mmol/L (21.0-32.0); CREATININE 0.8 mg/dL (0.55-1.02); Calcium 9.2 mg/dL (8.5-10.1); Chloride 102 mmol/L (98-107); Estimated GFR 89.15 (mL/min/1.73m2); Glucose 91 mg/dL (74-106); NT-proBNP 291 pg/mL (<300); Potassium 3.8 mmol/L (3.5-5.1); Sodium 137 mmol/L (136-145); Total Protein 7.5 g/dL (6.4-8.2)
[2023-01-12 15:30] VITALS: BP 140/70; PULSE 60; RESP 20; O2SAT 96
[2023-01-12 15:35] VITALS: BP 140/70; PULSE 60; RESP 20; O2SAT 96
== END 2023-01-12 15:38 | disposition home or self-care (01) ==
PROVIDERS: Emergency Provider Emergency Medicine; PCP Nurse Practitioner Family
DX: R05.9 Cough, unspecified (principal)
CPT/HCPCS: 80053; 87637; 93005; 99283; 71046; 83880; 85025; 93010; 99284

== ENCOUNTER 2023-03-24 02:50 | Outpatient (CLI) | payer OTHER, MEDICAID, SELFPAY ==
--- OUTSIDE RECORDS SUMMARY | 2023-03-24 03:12 | XMS_ITS | Continuity of Care Document ---
Author Name [facility] Address [address] [place] [id number] [facility] Address [address] [place] [address] Care Team Providers Care Senior Health Physics Technician Name Role Phone Out of Town, Provider Primary Care Physician Edgardo Dimas Sra Admitting Physician Abdirizak Obregon Attending Physician Allergies, Adverse Reactions, Alerts Allergen Type Severity Reaction Last Updated Verified Status ketorolac Allergy Mild rash January 25, 2021 Y Activ e Medications Active Medications Medication Dose Units Route Sig Start Date Status Atorvastatin 40 MG ORAL BEDTIME January 25, 2021 Active Levothyroxine 25 MCG ORAL DAILY Octobe r 2020 Active Pantoprazole 40 MG ORAL TWICE A DAY Octob er 2020 Active Warfarin 10 MG ORAL MOTUWETHFRSA January 25, 2021 Active Levothyroxine 150 MCG ORAL DAILY Octobe r 2020 Active Metoprolol Succinate 25 MG ORAL DAILY January 25, 2021 Active Hydroxychloroquine 200 MG ORAL TWICE A DAY January 25, 2021 Active Albuterol Sulfate [Ventolin Hfa] 2 INH INHALATION Q6H PRN For Wheezing January 25, 2021 Active Fluoxetine 40 MG ORAL DAILY January 052020 Active Fluticasone Propionate [Flovent Hfa] 2 INH INHALATION TWICE A DAY PRN For Wheezing January 25, 2021 Active Budesonide [Pulmicort Flexhaler] 2 INH INHALATION TWICE A DAY PRN For Wheezing January 25, 2021 Active Aspirin 81 MG ORAL DAILY January Active Lisinopril 5 MG ORAL DAILY January 052020 Active Warfarin 5 MG ORAL OROZCO January Active Problem List Active Problems Medical Problem Onset Date Status Rheumatoid arthritis Active Lupus Active Supratherapeutic INR Active GERD (gastroesophageal reflux disease) Active Terminal ileitis of small intestine Active CVA (cerebral vascular accident) Active Asthma Active Procedures Procedure Date Status CT Chest w/o Contrast January 28, 2021 active EKG January 28, [address] Abd Pel w/ Contrast January 27, 2021 complete d Relevant Diagnostic Tests and/or Laboratory Data Laboratory Results Test Date/Time Result Interp. Ref. Range Result Co mment White Blood Count January 28, 2021 6:47am 10.66 1000/mm3 4.8-10.8 Red Blood Count January 28, 2021 6:47am 3.14 M/mm3 Low 4.20-5.40 Hemoglobin January 28, 2021 6:47am 9.8 g/dL Low 12.0-16.0 Hematocrit January 28, 2021 6:47am 29.9 % Low 37-47 Mean Corpuscular Volume January 28, 2021 6:47am 95.2 fL 81.0-99.0 Mean Corpuscular Hemoglobin January 28, 2021 6:47am 31.2 pg High 27-31 Mean Corpuscular Hemoglobin Concent January 28, 2021 6:47am 32.8 g/dL Low 33-37 Red Cell Distribution Width January 28, 2021 6:47am 13.9 % 11.5-14.5 Platelet Count January 28, 2021 6:47am 209 1000/mm3 140-440 Mean Platelet Volume January 28, 2021 6:47am 10.6 fL High 7.4-10.4 Prothrombin Time January 28, 2021 6:35pm 57.7 SECONDS High 9.6-11.2 Prothromb Time International Ratio January 28, 2021 6:35pm 6.1 High 2.0-3.0 Results confirme d by repeat analysis INR value valid only on patients on stabilized warfarin therapy. The recommended therapeutic range for warfarin (Coumadin) for most clinical indications is an INR of 2.0-3.0. An INR of 2.5-3.5 is recommended for patients with mechanical heart valves. D-Dimer January 28, 2021 6:35pm 1650 ng/mLDDU High 0-250 Results confirme d by repeat analysis Cutoff value for the exclusion of DVT and PE: 250 ng/mL DDU. This D-Dimer assay is intended for use in conjunction with a non-high clinical pre-test probability (PTP)assessment model to exclude deep vein thrombosis (DVT) and pulmonary embolism (PE). Assayed using Siemens INNOVANCE D-Dimer. Stool Occult Blood January 26, 2021 6:15pm Positive High Sodium Level January 27, 2021 5:55am 134 mmol/L Low 137-145 Potassium Level January 28, 2021 6:47am 3.2 mmol/L Low 3.6-5.0 Chloride Level January 27, 2021 5:55am 100 mmol/L 98-107 Carbon Dioxide Level January 27, 2021 5:55am 30 mmol/L 22-30 Anion Gap January 27, 2021 5:55am 4 Low 7-16 Blood Urea Nitrogen January 27, 2021 5:55am 11 mg/dL 7-17 Creatinine January 27, 2021 5:55am 0.58 mg/dL 0.52-1.04 Glomerular Filtration Rate Calc January 27, 2021 5:55am > 60 mL/min 60.0- Glucose Level January 27, 2021 5:55am 116 mg/dL High 70-100 Calcium Level January 27, 2021 5:55am 7.9 mg/dL Low 8.4-10.2 Magnesium Level January 28, 2021 6:47am 1.8 mg/dL 1.6-2.3 Troponin I January 28, 2021 6:35pm 0.012 ng/mL 0-0.034 Reference Range: <0.034 ng/mL AMI Cut-off 0.120 ng/mL The results of this assay can be falsely decreased in patients who consume Biotin. Free Thyroxine January 25, 2021 6:35am 2.14 ng/dL 0.78-2.19 Thyroid Stimulating Hormone (TSH) January 25, 2021 6:35am < 0.015 mlU/L Low 0.47-4.68 The results of this assay can be falsely decreased in patients who consume Biotin. Hemoglobin A1c Percent January 25, 2021 6:35am 5.00 % <5.7%: Normal 5.7%-6.4%: Prediabetes >=6.5%: Diagnostic for diabetes Goals for Glycemic Control in Diabetes (ADA 2018) <7.0%: A1c target for non adults with diabetes. More or less stringent glycemic goals may be appropriate for individual patients. <7.5%: A1c target for children and adolescents with type I diabetes. A lower goal is reasonable if it can be achieved without excessive hypoglycemia. Estimated Average Glucose mg/dL January 25, 2021 6:35am 97 mg/dL C. difficile Antigen and Toxins A,B January 26, 2021 6:15pm Negative Negative for toxigenic C.difficile Negative C.difficile GDH Antigen Negative C.difficile Toxins A&B Stool Salmonella PCR January 26, 2021 6:15pm Negative Stool Shigella PCR January 26, 2021 6:15pm Negative Stool Campylobacter PCR January 26, 2021 6:15pm Negative Shiga Toxin (PCR) January 26, 2021 6:15pm Negative Test performed [place] [address] Advance Directives Advance Directive Response Recorded Date/ Time Do we have a copy on file here at [facility]? No January 25, 2021 2:39am Does patient have an Advanced Directive? No January 25, 2021 2:39am Pt has a Living Will? No January 2:39am Pt has a Power of Oncology Account Specialist? No Jano 2020 2:39am Chief Complaint and Reason for Visit Encounter Admit Date Chief Complaint Reason for V isit Admitted Inpatient January 26, 2021 8:58pm TERMINAL ILEITIS Supratherapeutic INR Terminal ileitis of small intestine Hospital Discharge Instructions No known hospital discharge instructions. Hospital Discharge Medications Medication Dose Units Route Sig Qty Days Order Date Status Instructions Atorvastatin 40 MG ORAL BEDTIME Oct [id number] Active Levothyroxine 25 MCG ORAL DAILY Oc 2020 Active Pantoprazole 40 MG ORAL TWICE A DAY January 25, 2021 Active Warfarin 10 MG ORAL MOTUWETHF [facility] January 25, 2021 Active Levothyroxine 150 MCG ORAL DAILY Oc tob2020 Active Metoprolol Succinate 25 MG ORAL DAILY January 25, 2021 Active Hydroxychloroquin e 200 MG ORAL TWICE A DAY January 25, 2021 Active Albuterol Sulfate 2 INH INHALATION Q6H PRN For Wheezing January 25, 2021 Active Fluoxetine 40 MG ORAL DAILY Octob er 2020 Active Fluticasone Propionate 2 INH INHALATION TWICE A DAY PRN For Wheezing January 25, 2021 Active Budesonide 2 INH INHALATION TWICE A DAY PRN For Wheezing January 25, 2021 Active Aspirin 81 MG ORAL DAILY January 25, 2021 Active Lisinopril 5 MG ORAL DAILY Octob er 2020 Active Warfarin 5 MG ORAL OROZCO January 26, 2021 Active Encounters Encounter Facility Location Admit/Visit Date Discharge/Departure Date Attending Provider Admitted Inpatient [facility] Progressive Care Unit January 26, 2021 8:58pm Abdirizak Obregon Encounter Diagnosis Onset Date Supratherapeutic INR Terminal ileitis of small intestine Functional Status Query Response Date Recorded Comment Comprehension Ability Understands Concepts January 25, 2021 3:23am Speech Appropriate January 25, 2021 3:23am Query Response Date Recorded Comment Ambulation Ability Independent January 26, 2021 9:56a m Living Situation With Spouse January 26, 2021 9:56am Immunizations No known immunizations. Plan of Care No Known Plan of Care Information Social History Query Response Date Recorded Comment Smoking Status Never smoker January 26, 2021 9:56am substance use type does not use January 25, 2021 3:23a m Query Response Start Date Stop Date Smoking Status Never smoker Vital Signs Vital Reading Result Reference Range Collection Date/Time Weight 95.2 kg January 25 3:27am Temperature 98.6 F 97.6 F-99.6 F January 28 7:39pm Pulse 88 BPM 60-100 January 28 7:39pm Respiration 18 RPM -January 28 7:39pm Pulse Oximetry 97 % 95-100 January 28 021 7:42pm Blood Pressure Systolic 137 100-140 Octo dinorah 2020 7:39pm Blood Pressure Diastolic 54 50-85 Oct edie 2020 7:39pm
--- OUTSIDE RECORDS SUMMARY | 2023-03-24 03:12 | XMS_ITS | Continuity of Care Document ---
Author Name [facility] Address [address] [place] [address] Organization [facility] Address [address] [place] [address] Care Team Providers Care Laborer Ammunition Assembly Name Role Phone Out of Town, Provider Primary Care Physician Kimberlee vailable Edgardo Quiñonez Admitting Physician [phone] Elva Ramirez Attending Physician [phone] Allergies, Adverse Reactions, Alerts Allergen Type Severity [...] INR Active GERD (gastroesophageal reflux disease) Active Pleural effusion, bilateral Acti ve Terminal ileitis of small intestine Active CVA (cerebral vascular accident) Active Asthma Active Procedures Procedure Date Status Chest 1 vw January 29, 2021 completed ECHO Complete January 29, [address] Chest w/o Contrast January 28, 2021 completed EKG January 28, [address] Abd Pel w/ Contrast January 27, 2021 complete d EKG January 26, 2021 completed Relevant Diagnostic Tests and/or Laboratory Data Laboratory Results Test Date/Time Result Interp. Ref. Range Result Co mment White Blood Count January 31, 2021 6:44am 10.76 1000/mm3 4.8-10.8 Red Blood Count January 31, 2021 6:44am 2.94 M/mm3 Low 4.20-5.40 Hemoglobin February 01, 2021 6:06am 10.3 g/dL Low 12.0-16.0 Hematocrit February 01, 2021 6:06am 30.5 % Low 37-47 Mean Corpuscular Volume January 31, 2021 6:44am 92.2 fL 81.0-99.0 Mean Corpuscular Hemoglobin January 31, 2021 6:44am 31.3 pg High 27-31 Mean Corpuscular Hemoglobin Concent January 31, 2021 6:44am 33.9 g/dL 33-37 Red Cell Distribution Width January 31, 2021 6:44am 13.8 % 11.5-14.5 Platelet Count January 31, 2021 6:44am 267 1000/mm3 140-440 Mean Platelet Volume January 31, 2021 6:44am 10.2 fL 7.4-10.4 Prothrombin Time February 01, 2021 6:06am 17.4 SECONDS High 9.6-11.2 Prothromb Time International Ratio February 01, 2021 6:06am 1.7 Low 2.0-3.0 INR value valid only on patients on stabilized warfarin therapy. The recommended therapeutic range for warfarin (Coumadin) for most clinical indications is an INR of 2.0-3.0. An INR of 2.5-3.5 is recommended for patients with mechanical heart valves. APTT (Heparin Protocol) February 01, 2021 6:06am 68.6 SECONDS 55-85 A target of 1.5-2.5 times the mean of the normal reference range is considered therapeutic. NOTE: APTT must NOT be used to monitor LMWH therapy. Contact [facility] for monitoring information. D-Dimer January 28, 2021 6:35pm 1650 ng/mLDDU High 0-250 Results confirme d by repeat analysis Cutoff value for the exclusion of DVT and PE: 250 ng/mL DDU. This D-Dimer assay is intended for use in conjunction with a non-high clinical pre-test probability (PTP)assessment model to exclude deep vein thrombosis (DVT) and pulmonary embolism (PE). Assayed using Siem[employer] D-Dimer. Stool Occult Blood January 26, 2021 6:15pm Positive High Sodium Level January 31, 2021 6:44am 135 mmol/L Low 137-145 Potassium Level February 01, 2021 6:06am 3.5 mmol/L Low 3.6-5.0 Chloride Level January 31, 2021 6:44am 96 mmol/L Low 98-107 Carbon Dioxide Level January 31, 2021 6:44am 37 mmol/L High 22-30 Anion Gap January 31, 2021 6:44am 2 Low 7-16 Blood Urea Nitrogen January 31, 2021 6:44am 8 mg/dL 7-17 Creatinine January 31, 2021 6:44am 0.60 mg/dL 0.52-1.04 Glomerular Filtration Rate Calc January 31, 2021 6:44am > 60 mL/min 60.0- Glucose Level January 31, 2021 6:44am 101 mg/dL High 70-100 Calcium Level January 31, 2021 6:44am 8.4 mg/dL 8.4-10.2 Magnesium Level February 01, 2021 6:06am 1.9 mg/dL 1.6-2.3 Troponin I January 29, 2021 6:17am < 0.012 ng/mL 0-0.034 Reference Range: <0.034 ng/mL [...] Test performed o r referred by The [address] [address] Advance Directives Advance Directive Response Recorded Date/ Time Do we have a copy on file here at [facility]? No January 25, 2021 2:39am Does patient have an Advanced Directive? No January 25, 2021 2:39am Pt has a Living Will? No January 2:39am Pt has a Power of Brim Buster? No Octo 2020 2:39am Chief Complaint and Reason for Visit Encounter Admit Date Chief Complaint Reason for V isit Registered Inpatient January 26, 2021 8:58pm TERMINAL ILEITIS Pleural effusion, bilateral Supratherapeutic INR Terminal ileitis of small intestine Hospital Discharge Instructions No known hospital discharge instructions. Hospital Discharge Medications Medication Dose Units Route Sig Qty Days Order Date Status Instructions Atorvastatin 40 MG ORAL BEDTIME Oct edie 2020 Active Levothyroxine 25 MCG ORAL DAILY Oc tober 2020 Active Pantoprazole 40 MG ORAL TWICE A DAY January 25, 2021 Active Warfarin 10 MG ORAL MOTUWETHF RSA January 25, 2021 Active Levothyroxine 150 MCG ORAL DAILY Oc tober 2020 Active Metoprolol Succinate 25 MG ORAL [...] Location Admit/Visit Date Discharge/Departure Date Attending Provider Registered Inpatient [facility] Pulmonology January 26, 2021 8:58pm Sarah Shukla Encounter Diagnosis Onset Date Pleural effusion, bilateral Supratherapeutic INR Terminal ileitis of small intestine Functional Status Query Response Date Recorded Comment Comprehension Ability Understands Concepts January 25, 2021 3:23am Speech Appropriate January 25, 2021 3:23am Query Response Date Recorded Comment Ambulation Ability Independent January 30, 2021 8:41a m Living Situation With Spouse January 30, 2021 8:41am Immunizations No known immunizations. Plan of Care No Known Plan of Care Information Social History Query Response Date Recorded Comment Smoking Status Never smoker January 30, 2021 8:41am substance use type does not use January 25, 2021 3:23a m Query Response Start Date Stop Date Smoking Status Never smoker Vital Signs Vital Reading Result Reference Range Collection Date/Time Weight 93.5 kg February 01 6:00am Temperature 97.6 F 97.6 F-99.6 F February 01 6:39am Pulse 88 BPM 60-100 February 01 11:55am Respiration 16 RPM 12-24 February 01 6:39am Pulse Oximetry 94 % 95-100 February 01 021 6:39am Blood Pressure Systolic 100 100-140 Octo dinorah 2020 10:48am Blood Pressure Diastolic 87 50-85 Oct edie 2020 10:48am
--- OUTSIDE RECORDS SUMMARY | 2023-03-24 03:12 | XMS_ITS | Continuity of Care Document ---
Author Name [facility] Address [address] [place] [address] [facility] Address [address] [place] [address] Care Team Providers Care Chemical Engineer Name Role Phone Out of Town, Provider [...] er 2020 Active Warfarin 10 MG ORAL 1900 January Active Levothyroxine 150 MCG ORAL DAILY Octobe [...] 5 MG ORAL DAILY January 052020 Active Problem List Active Problems Medical Problem Onset Date Status Rheumatoid arthritis Active Lupus Active Supratherapeutic INR Active GERD (gastroesophageal reflux disease) Active Terminal ileitis of small intestine Active CVA (cerebral vascular accident) Active Asthma Active Procedures No known history of procedures. Relevant Diagnostic Tests and/or Laboratory Data Laboratory Results Test Date/Time Result Interp. Ref. Range Result Co mment Prothrombin Time January 25, 2021 6:35am > 93.6 SECONDS High 9.6-11.2 Results confirmed by repeat analysis INR >9.1 due to PT result of >93.6 seconds Prothromb Time International Ratio January 25, 2021 6:35am TNP Test not performed Free Thyroxine January 25, 2021 6:35am 2.14 [...] mg/dL January 25, 2021 6:35am 97 mg/dL Advance Directives Advance Directive Response Recorded Date/ Time Do we have a copy on file here at [facility]? No January 25, 2021 2:39am Does patient have an Advanced Directive? No January 25, 2021 2:39am Pt has a Living Will? No January 2:39am Pt has a Power of Outside Food Server? No Octo 2020 2:39am Chief Complaint and Reason for Visit Encounter Admit Date Chief Complaint Reason for V isit Admitted Inpatient January 25, 2021 2:33am TERMINAL ILEITIS Supratherapeutic INR Terminal ileitis of [...] 25, 2021 Active Warfarin 10 MG ORAL 1900 January 25, 2021 Active Levothyroxine 150 MCG [...] MG ORAL DAILY Octob er 2020 Active Encounters Encounter Facility Location Admit/Visit Date Discharge/Departure Date Attending Provider Admitted Inpatient [facility] Progressive Care Unit January 25, 2021 2:33am Abdirizak Obregon Encounter Diagnosis Onset Date Supratherapeutic INR Terminal ileitis of small intestine Functional Status Query Response Date Recorded Comment Comprehension Ability Understands Concepts January 25, 2021 3:23am Speech Appropriate January 25, 2021 3:23am Query Response Date Recorded Comment Ambulation Ability Independent January 25, 2021 3:23a m Living Situation With Spouse January 25, 2021 3:23am Immunizations No known immunizations. Plan of Care No Known Plan of Care Information Social History Query Response Date Recorded Comment Smoking Status Never smoker January 25, 2021 3:23am substance use type does not use January 25, 2021 3:23a m Query Response Start Date Stop Date Smoking Status Never smoker Vital Signs Vital Reading Result Reference Range Collection Date/Time Weight 95.2 kg January 25 3:27am Temperature 98.6 F 97.6 F-99.6 F January 25 8:46pm Pulse 77 BPM 60-100 January 25 8:46pm Respiration 16 RPM 12-January 25 8:46pm Pulse Oximetry 91 % 95-100 January 25 021 8:46pm Blood Pressure Systolic 116 100-140 Octo dinorah 2020 8:46pm Blood Pressure Diastolic 71 50-85 Oct edie 2020 8:46pm
--- OUTSIDE RECORDS SUMMARY | 2023-03-24 03:12 | XMS_ITS | Continuity of Care Document ---
Author Name [facility] Address [address] [place] [address] Organization [facility] Address [address] [place] [address] Care Team Providers Care Supply Chain Generalist Name Role Phone Out of Town, Provider [...] Asthma Active Procedures Procedure Date Status CT Abd Pel w/ Contrast January 27, [...] High 7.4-10.4 Prothrombin Time January 28, 2021 6:47am 43.4 SECONDS High 9.6-11.2 Prothromb Time International Ratio January 28, 2021 6:47am 4.5 High 2.0-3.0 Results confirme d by repeat analysis INR value valid only on patients on stabilized warfarin therapy. The recommended therapeutic range for warfarin (Coumadin) for most clinical indications is an INR of 2.0-3.0. An INR of 2.5-3.5 is recommended for patients with mechanical heart valves. Stool Occult Blood January 26, 2021 6:15pm [...] January 28, 2021 6:47am 1.8 mg/dL 1.6-2.3 Free Thyroxine January 25, 2021 6:35am 2.14 [...] C.difficile GDH Antigen Negative C.difficile Toxins A&B Advance Directives Advance Directive Response Recorded Date/ Time Do we have a copy on file here at [facility] [place] [place]? No January 25, 2021 2:39am Does patient have an Advanced Directive? No January 25, 2021 2:39am Pt has a Living Will? No January 2:39am Pt has a Power of Director Software Quality Assurance? No Octo 2020 2:39am Chief Complaint and [...] Active Levothyroxine 25 MCG ORAL DAILY Oc tob2020 Active Pantoprazole 40 MG ORAL TWICE A [...] Date Discharge/Departure Date Attending Provider Admitted Inpatient [facility] Progressive Care Unit January 26, 2021 8:58pm [...] Weight 95.2 kg January 25 3:27am Temperature 98.0 F 97.6 F-99.6 F January 28 4:08am Pulse 96 BPM 60-100 January 28 4:08am Respiration 14 RPM -January 28 4:08am Pulse Oximetry 93 % 95-100 January 28 021 4:08am Blood Pressure Systolic 147 100-140 Octo dinorah 2020 4:08am Blood Pressure Diastolic 95 50-85 Oct edie 2020 4:08am
--- OUTSIDE RECORDS SUMMARY | 2023-03-24 03:12 | XMS_ITS | Continuity of Care Document ---
Author Name [facility] Address [address] [place] [address] Organization [facility] Address [address] [place] [address] Care Team Providers Care Hogshead Salvage Name Role Phone Out of Town, Provider [...] 28, 2021 completed EKG January 28, [address] Abd Pel w/ Contrast January 27, 2021 complete d Relevant Diagnostic Tests and/or Laboratory Data Laboratory Results Test Date/Time Result Interp. Ref. Range Result Co mment White Blood Count January 30, 2021 6:17am 13.77 1000/mm3 High 4.8-10.8 Red Blood Count January 30, 2021 6:17am 2.82 M/mm3 Low 4.20-5.40 Hemoglobin January 30, 2021 6:17am 8.9 g/dL Low 12.0-16.0 Hematocrit January 30, 2021 6:17am 26.3 % Low 37-47 Mean Corpuscular Volume January 30, 2021 6:17am 93.3 fL 81.0-99.0 Mean Corpuscular Hemoglobin January 30, 2021 6:17am 31.6 pg High 27-31 Mean Corpuscular Hemoglobin Concent January 30, 2021 6:17am 33.8 g/dL 33-37 Red Cell Distribution Width January 30, 2021 6:17am 13.9 % 11.5-14.5 Platelet Count January 30, 2021 6:17am 238 1000/mm3 140-440 Mean Platelet Volume January 30, 2021 6:17am 10.3 fL 7.4-10.4 Prothrombin Time January 30, 2021 6:17am 15.6 SECONDS High 9.6-11.2 Prothromb Time International Ratio January 30, 2021 6:17am 1.5 Low 2.0-3.0 INR value valid only on [...] and pulmonary embolism (PE). Assayed using Siemens [employer] D-Dimer. Stool Occult Blood January 26, 2021 6:15pm Positive High Sodium Level January 30, 2021 6:17am 137 mmol/L 137-145 Potassium Level January 30, 2021 6:17am 2.9 mmol/L Low 3.6-5.0 Results confirme d by repeat analysis Chloride Level January 30, 2021 6:17am 96 mmol/L Low 98-107 Carbon Dioxide Level January 30, 2021 6:17am 37 mmol/L High 22-30 Anion Gap January 30, 2021 6:17am 4 Low 7-16 Blood Urea Nitrogen January 30, 2021 6:17am 6 mg/dL Low 7-17 Creatinine January 30, 2021 6:17am 0.63 mg/dL 0.52-1.04 Glomerular Filtration Rate Calc January 30, 2021 6:17am > 60 mL/min 60.0- Glucose Level January 30, 2021 6:17am 101 mg/dL High 70-100 Calcium Level January 30, 2021 6:17am 8.1 mg/dL Low 8.4-10.2 Magnesium Level January 28, 2021 6:47am 1.8 mg/dL 1.6-2.3 Troponin I January 29, 2021 [...] Test performed [place] [address] Advance Directives Advance Directive Response Recorded Date/ Time Do we have a copy on file here at [facility]? No January 25, 2021 2:39am Does patient have an Advanced Directive? No January 25, 2021 2:39am Pt has a Living Will? No January 2:39am Pt has a Power of Coremaking Machine Operator? No Jano 2020 2:39am Chief Complaint and Reason for Visit Encounter Admit Date Chief Complaint Reason for V isit Admitted Inpatient January 26, 2021 8:58pm TERMINAL ILEITIS Supratherapeutic INR Terminal ileitis of small intestine Hospital Discharge Instructions No known hospital discharge instructions. Hospital Discharge Medications Medication Dose Units Route Sig Qty Days Order Date Status Instructions Atorvastatin 40 MG ORAL BEDTIME Oct 2020 Active Levothyroxine 25 MCG ORAL DAILY Oc 2020 Active Pantoprazole 40 MG ORAL TWICE A DAY January 25, 2021 Active Warfarin 10 MG ORAL MOTUWETHF RSA January 25, 2021 Active Levothyroxine 150 MCG ORAL DAILY Oc 2020 Active Metoprolol Succinate 25 MG ORAL [...] Date Discharge/Departure Date Attending Provider Admitted Inpatient [facility] Progressive Care Unit January 26, [...] Weight 95.2 kg January 25 3:27am Temperature 98.2 F 97.6 F-99.6 F January 30 5:12am Pulse 85 BPM 60-100 January 30 8:00am Respiration 16 RPM -January 30 5:12am Pulse Oximetry 92 % 95-100 January 30 021 5:12am Blood Pressure Systolic 90 100-140 Octo dinorah 2020 5:12am Blood Pressure Diastolic 46 50-85 Oct edie 2020 5:12am
--- OUTSIDE RECORDS SUMMARY | 2023-03-24 03:12 | XMS_ITS | Continuity of Care Document ---
Author Name [facility] Address [address] [place] [address] Organization [facility] Address [address] [place] [address] Care Team Providers Care Senior Resident Care Director Name Role Phone Out of Town, Provider Primary Care Physician Edgardo Dimas Sra Admitting Physician Abdirizak Obregon Attending Physician [phone] Allergies, Adverse Reactions, Alerts Allergen Type Severity [...] Test performed o [place] [address] Advance Directives Advance Directive Response Recorded Date/ Time Do we have a copy on file here at [facility]? No January 25, 2021 2:39am Does patient have an Advanced Directive? No January 25, 2021 2:39am Pt has a Living Will? No January 2:39am Pt has a Power of Master Printer? No Jano 2020 2:39am Chief Complaint and [...] 2021 Active Warfarin 10 MG ORAL MOTUWETHF [facility] January 25, 2021 Active Levothyroxine 150 MCG [...] Date Discharge/Departure Date Attending Provider Admitted Inpatient [facility] Progressive Care Unit January 26, 2021 [...]
--- OUTSIDE RECORDS SUMMARY | 2023-03-24 03:12 | XMS_ITS | Continuity of Care Document ---
Author Name [facility] Address [address] [place] [address] Organization [facility] Address [address] [place] [address] Care Team Providers Care Pilot Control Operator Helper Name Role Phone Out of Town, Provider Primary Care Physician Kimberlee vailable Edgardo Quiñonez Admitting Physician Elva Ramirez Attending Physician Allergies, Adverse Reactions, Alerts Allergen [...] 2021 6:44am 2.94 M/mm3 Low 4.20-5.40 Hemoglobin January 31, 2021 6:44am 9.2 g/dL Low 12.0-16.0 Hematocrit January 31, 2021 6:44am 27.1 % Low 37-47 Mean Corpuscular Volume January [...] 2021 6:44am 10.2 fL 7.4-10.4 Prothrombin Time January 31, 2021 6:44am 16.2 SECONDS High 9.6-11.2 Prothromb Time International Ratio January 31, 2021 6:44am 1.6 Low 2.0-3.0 INR value valid only on patients on stabilized warfarin therapy. The recommended therapeutic range for warfarin (Coumadin) for most clinical indications is an INR of 2.0-3.0. An INR of 2.5-3.5 is recommended for patients with mechanical heart valves. APTT (Heparin Protocol) January 31, 2021 8:32am 70.6 SECONDS 55-85 A target of 1.5-2.5 times the mean of the normal reference range is considered therapeutic. NOTE: APTT must NOT be used to monitor LMWH therapy. Contact [facility] for monitoring information. D-Dimer January 28, 2021 6:35pm 1650 ng/mLDDU High 0-250 Results confirme d by repeat analysis Cutoff value for the exclusion of DVT and PE: 250 ng/mL DDU. This D-Dimer assay is intended for use in conjunction with a non-high clinical pre-test probability (PTP)assessment model to exclude deep vein thrombosis (DVT) and pulmonary embolism (PE). Assayed using Siemens [employer] D-Dimer. Stool Occult Blood January 26, 2021 6:15pm Positive High Sodium Level January 31, 2021 6:44am 135 mmol/L Low 137-145 Potassium Level January 31, 2021 6:44am 3.2 mmol/L Low 3.6-5.0 Chloride Level January 31, [...] 2021 6:44am 8.4 mg/dL 8.4-10.2 Magnesium Level January 31, 2021 6:44am 1.6 mg/dL 1.6-2.3 Troponin I January 29, 2021 [...] Test performed o r referred by The [address] [address] Advance Directives Advance Directive Response Recorded Date/ Time Do we have a copy on file here at [facility]? No January 25, 2021 2:39am Does patient have an Advanced Directive? No January 25, 2021 2:39am Pt has a Living Will? No January 2:39am Pt has a Power of Private Duty Nurse? No Octo dinorah 2020 2:39am Chief Complaint and Reason for [...] Date Discharge/Departure Date Attending Provider Registered Inpatient [facility] Pulmonology January 26, 2021 8:58pm Sarah [...] Reading Result Reference Range Collection Date/Time Weight 95.8 kg January 31 5:32am Temperature 98.7 F 97.6 F-99.6 F January 31 5:02am Pulse 75 BPM 60-100 January 31 8:59am Respiration 18 RPM 12-January 31 5:02am Pulse Oximetry 93 % 95-100 January 31 021 5:02am Blood Pressure Systolic 114 100-140 Octo dinorah 2020 8:59am Blood Pressure Diastolic 66 50-85 Oct edie 2020 8:59am
--- OUTSIDE RECORDS SUMMARY | 2023-03-24 03:12 | XMS_ITS | Continuity of Care Document ---
Author Name [facility] Address [address] [place] [address] Organization [facility] Address [address] [place] [address] Care Team Providers Care Hospice Care Transitions Coordinator Name Role Phone Out of Town, Provider [...] Chest 1 vw January 29, [address] Chest w/o [...] and pulmonary embolism (PE). Assayed using Siemens [employer] D-Dimer. Stool Occult Blood January 26, 2021 [...] Test performed [place] [address] Advance Directives Advance Directive Response Recorded Date/ Time Do we have a copy on file here at [facility]? No January 25, 2021 2:39am Does patient have an Advanced Directive? No January 25, 2021 2:39am Pt has a Living Will? No January 2:39am Pt has a Power of Senior Business Manager? No Jano 2020 2:39am Chief Complaint and [...] 2021 Active Warfarin 10 MG ORAL MOTUWETHF [facility] January 25, 2021 Active Levothyroxine 150 [...] Weight 95.2 kg January 25 3:27am Temperature 98.8 F 97.6 F-99.6 F January 29 5:54am Pulse 85 BPM 60-100 January 29 5:54am Respiration 20 RPM -January 29 5:54am Pulse Oximetry 98 % 95-100 January 29 021 5:54am Blood Pressure Systolic 147 100-140 Octo dinorah 2020 5:54am Blood Pressure Diastolic 82 50-85 Oct edie 2020 5:54am
--- OUTSIDE RECORDS SUMMARY | 2023-03-24 03:12 | XMS_ITS | Continuity of Care Document ---
Author Name [facility] Address [address] [place] [address] Organization [facility] Address [address] [place] [address] Care Team Providers Care Stock Layer Name Role Phone Out of Town, Provider Primary Care Physician Edgardo Dimas Sra Admitting Physician [phone] Abdirizak Obregon Attending Physician Allergies, Adverse Reactions, [...] 10.6 fL High 7.4-10.4 Prothrombin Time January 29, 2021 6:17am 66.3 SECONDS High 9.6-11.2 Prothromb Time International Ratio January 29, 2021 6:17am 7.0 High 2.0-3.0 INR value valid only on patients [...] 2021 6:15pm Positive High Sodium Level January 29, 2021 6:17am 136 mmol/L Low 137-145 Potassium Level January 29, 2021 6:17am 3.7 mmol/L 3.6-5.0 Chloride Level January 29, 2021 6:17am 99 mmol/L 98-107 Carbon Dioxide Level January 29, 2021 6:17am 30 mmol/L 22-30 Anion Gap January 29, 2021 6:17am 7 7-16 Blood Urea Nitrogen January 29, 2021 6:17am 2 mg/dL Low 7-17 Creatinine January 29, 2021 6:17am 0.58 mg/dL 0.52-1.04 Glomerular Filtration Rate Calc January 29, 2021 6:17am > 60 mL/min 60.0- Glucose Level January 29, 2021 6:17am 107 mg/dL High 70-100 Calcium Level January 29, 2021 6:17am 8.3 mg/dL Low 8.4-10.2 Magnesium Level January 28, [...] Test performed [place] [address] Advance Directives Advance Directive Response Recorded Date/ Time Do we have a copy on file here at [facility]? No January 25, 2021 2:39am Does patient have an Advanced Directive? No January 25, 2021 2:39am Pt has a Living Will? No January 2:39am Pt has a Power of Main Entree Cook And Cashier? No Jano 2020 2:39am Chief Complaint and [...] Date Discharge/Departure Date Attending Provider Admitted Inpatient [facility] Progressive Care Unit January 26, 2021 [...] Weight 95.2 kg January 25 3:27am Temperature 98.5 F 97.6 F-99.6 F January 29 7:57pm Pulse 107 BPM 60-100 January 29 7:57pm Respiration 20 RPM 12-24 January 29 7:57pm Pulse Oximetry 94 % 95-100 January 29 021 7:57pm Blood Pressure Systolic 134 100-140 Octo dinorah 2020 7:57pm Blood Pressure Diastolic 82 50-85 Oct edie 2020 7:57pm
--- OUTSIDE RECORDS SUMMARY | 2023-03-24 03:12 | XMS_ITS | Continuity of Care Document ---
Author Name [facility] Address [address] [place] [address] Organization [facility] Address [address] [place] [address] Care Team Providers Care Pump And Blower Operator Name Role Phone Out of Town, Provider [...] Result Co mment White Blood Count January 27, 2021 5:55am 13.20 1000/mm3 High 4.8-10.8 Red Blood Count January 27, 2021 5:55am 3.45 M/mm3 Low 4.20-5.40 Hemoglobin January 27, 2021 5:55am 10.8 g/dL Low 12.0-16.0 Hematocrit January 27, 2021 5:55am 32.3 % Low 37-47 Mean Corpuscular Volume January 27, 2021 5:55am 93.6 fL 81.0-99.0 Mean Corpuscular Hemoglobin January 27, 2021 5:55am 31.3 pg High 27-31 Mean Corpuscular Hemoglobin Concent January 27, 2021 5:55am 33.4 g/dL 33-37 Red Cell Distribution Width January 27, 2021 5:55am 13.6 % 11.5-14.5 Platelet Count January 27, 2021 5:55am 214 1000/mm3 140-440 Mean Platelet Volume January 27, 2021 5:55am 10.7 fL High 7.4-10.4 Prothrombin Time January 27, 2021 5:55am > 93.6 SECONDS High 9.6-11.2 INR >9.1 due to PT result of >93.6 seconds Prothromb Time International Ratio January 27, 2021 5:55am TNP Test not performed Stool Occult Blood January 26, 2021 6:15pm Positive High Sodium Level January 27, 2021 5:55am 134 mmol/L Low 137-145 Potassium Level January 27, 2021 5:55am 3.6 mmol/L 3.6-5.0 Chloride Level January 27, 2021 5:55am [...] 7.9 mg/dL Low 8.4-10.2 Magnesium Level January 27, 2021 5:55am 1.5 mg/dL Low 1.6-2.3 Free Thyroxine January 25, 2021 6:35am [...] have a copy on file here at [facility]? No January 25, 2021 2:39am Does patient have an Advanced Directive? No January 25, 2021 2:39am Pt has a Living Will? No January 2:39am Pt has a Power of Manufacturing Assembler? No Jano 2020 2:39am Chief Complaint and [...] Date Discharge/Departure Date Attending Provider Admitted Inpatient [facility] Progressive Care Unit January 26, 2021 [...] Temperature 98.2 F 97.6 F-99.6 F January 27 6:34am Pulse 88 BPM 60-100 January 27 8:00am Respiration 20 RPM 12-24 January 27 6:34am Pulse Oximetry 95 % 95-100 January 27 6:34am Blood Pressure Systolic 143 100-140 Octo dinorah 2020 6:34am Blood Pressure Diastolic 78 50-85 Oct edie 2020 6:34am
--- OUTSIDE RECORDS SUMMARY | 2023-03-24 03:12 | XMS_ITS | Continuity of Care Document ---
Author Name Address [address] [place] [address] Organization Address [address] [place] [address] Care Team Providers Care Buccaro Name Role Phone Out of Town, Provider Primary Care Physician Edgardo Dimas Sra Admitting Physician [phone] Abdirizak Obregon Attending Physician [phone] Allergies, Adverse Reactions, Alerts Allergen Type Severity [...] 2021 completed ECHO Complete January 29, [address] Chest w/o Contrast January 28, 2021 [...] and pulmonary embolism (PE). Assayed using Siemens [employer] D-Dimer. Stool Occult Blood January 26, 2021 [...] Test performed o [place] [address] Advance Directives Advance Directive Response Recorded Date/ Time Do we have a copy on file here at [facility]? No January 25, 2021 2:39am Does patient have an Advanced Directive? No January 25, 2021 2:39am Pt has a Living Will? No January 2:39am Pt has a Power of Binder Coverstitch? No Octo 2020 2:39am Chief Complaint and [...] Date Discharge/Departure Date Attending Provider Admitted Inpatient Progressive Care Unit January 26, 2021 8:58pm [...]
--- OUTSIDE RECORDS SUMMARY | 2023-03-24 03:12 | XMS_ITS | Continuity of Care Document ---
Author Name [facility] Address [address] [place] [address] Organization [facility] Address [address] [place] [address] Care Team Providers Care Continuity Tester Name Role Phone Out of Town, Provider Primary Care Physician Kimberlee vailable Edgardo Quiñonez Admitting Physician Elva Ramirez Attending Physician Allergies, Adverse Reactions, Alerts Allergen Type Severity Reaction Last Updated Verified Status ketorolac Allergy Mild rash January 25, 2021 Y Activ e Medications Active Medications Medication Dose Units Route Sig Qty Start Date St atus Atorvastatin 40 MG ORAL BEDTIME January 25, 2021 Active Levothyroxine 25 MCG ORAL DAILY January Active Pantoprazole 40 MG ORAL TWICE A DAY January 25, 2021 Active Warfarin 10 MG ORAL MOTUWETHFRSA January Active Levothyroxine 150 MCG ORAL DAILY January Active Metoprolol Succinate 25 MG ORAL DAILY Oct edie 2020 Active Hydroxychloroquine 200 MG ORAL TWICE A DAY O ctober 2020 Active Albuterol Sulfate [Ventolin Hfa] 2 INH INHALATION Q6H PRN For Wheezing January 25, 2021 Active Fluoxetine 40 MG ORAL DAILY January 25, 2021 Active Fluticasone Propionate [Flovent Hfa] 2 INH INHALATION TWICE A DAY PRN For Wheezing January 25, 2021 Active Budesonide [Pulmicort Flexhaler] 2 INH INHALATION TWICE A DAY PRN For Wheezing January 25, 2021 Active Aspirin 81 MG ORAL DAILY January 25, 2021 Active Lisinopril 5 MG ORAL DAILY January 25, 2021 Active Warfarin 5 MG ORAL OROZCO January 26, 2021 Active Cefdinir 300 MG ORAL TWICE A DAY 10 February 02, 2021 Active Problem List Active Problems Medical Problem [...] 6:44am 10.2 fL 7.4-10.4 Prothrombin Time February 02, 2021 6:03am 21.8 SECONDS High 9.6-11.2 Prothromb Time International Ratio February 02, 2021 6:03am 2.2 2.0-3.0 INR value valid only on patients on stabilized warfarin therapy. The recommended therapeutic range for warfarin (Coumadin) for most clinical indications is an INR of 2.0-3.0. An INR of 2.5-3.5 is recommended for patients with mechanical heart valves. APTT (Heparin Protocol) February 02, 2021 6:03am 45.7 SECONDS Low 55-85 A target of 1.5-2.5 times the mean of the normal reference range is considered therapeutic. NOTE: APTT must NOT be used to monitor LMWH therapy. Contact [facility] for monitoring information. D-Dimer January 28, 2021 6:35pm 1650 ng/mLDDU High 0-250 Results confirme d by repeat analysis Cutoff value for the exclusion of DVT and PE: 250 ng/mL DDU. This D-Dimer assay is intended for use in conjunction with a non-high clinical pre-test probability (PTP)assessment model to exclude deep vein thrombosis (DVT) and pulmonary embolism (PE). Assayed using Siemens [employer] D-Dimer. Stool Occult Blood January 26, 2021 [...] Test performed o r referred by The [address] [address] Advance Directives Advance Directive Response Recorded Date/ Time Do we have a copy on file here at [facility]? No January 25, 2021 2:39am Does patient have an Advanced Directive? No January 25, 2021 2:39am Pt has a Living Will? No January 2:39am Pt has a Power of Steel Cutter? No Octo 2020 2:39am Chief Complaint and Reason for Visit Encounter Admit Date Chief Complaint Reason for V isit Registered Inpatient January 26, 2021 8:58pm TERMINAL ILEITIS Pleural effusion, bilateral Supratherapeutic INR Terminal ileitis of small intestine Hospital Discharge Instructions Additional Discharge Instructions GENERA L DISCHARGE INSTRUCTIONS OUR GOAL You have been cared for by the Hospital Care Team at [facility] ([facility]). Our goal is to make sure that your discharge from the hospital is as safe as possible. This means making sure that: ??? You understand the reason for your hospitalization. ??? You understand your medications at discharge including any new prescriptions, changes to your medication, and stopped medications. ??? You know the symptoms of your illness and when to call for help. ??? You understand your discharge plan and instructions. ??? A summary of your care will be sent to your primary care provider and other members of your care team that you identify. Discharge Diagnosis: Terminal ileitis. Rheumatoid arthritis. History of PE. Antiphospholipid syndrome. S/p aortic valve replacement. Abnormal coagulation profile. Diet: Resume Previous Diet Activity: Resume Previous Activity Bathing: No Restrictions Symptoms to Report to Your Provider: Shortness of Breath Temperature > 101 F Additional Symptoms to Report to Your Provider: any bleeding WHO TO CALL v CONTACT US AT [facility] IF: You have not seen your primary care provider if you have questions regarding your care in the hospital including questions regarding your medications, discharge instructions, or services arranged prior to seeing your primary care provider. If you were discharged from the Progressive Care Unit, contact us at: [phone] v CONTACT YOUR PRIMARY CARE IF You are concerned that your symptoms are worsening or have returned, to see if your appointment needs to be changed or you need to be seen sooner. WHEN TO GO TO THE EMERGENCY DEPARTMENT The Emergency Department is there for you when you need immediate care for serious illness, injury or severe symptoms. You should call 911 or return to the Emergency Department v IF THE SYMPTOMS OF YOUR RECENT HOSPITALIZATION HAVE RETURNED OR SEVERELY WORSENED. THESE MIGHT INCLUDE: ??? Shortness of Breath Temperature > 101 F ??? any bleeding ??? Uncontrolled bleeding ??? Severe pain not controlled by available oral pain medications ??? Persistent vomiting or vomiting blood ??? Fainting ??? Unexpected shortness of breath or difficulty breathing ??? Persistent high fever greater than 101 ??? Seizure Instruction/Education Provided Goals: Hospital Discharge Medications Medication Dose Units Route [...] MG ORAL OROZCO January 26, 2021 Active Cefdinir 300 MG ORAL TWICE A DAY 10 February 02, 2021 Active Encounters Encounter Facility Location Admit/Visit Date Discharge/Departure Date Attending Provider Registered Inpatient [facility] Pulmonology January 26, 2021 8:58pm [...] Immunizations No known immunizations. Plan of Care Instructions Goals: Social History Query Response Date Recorded Comment Smoking Status Never smoker January 30, 2021 8:41am substance use type does not use January 25, 2021 3:23a m Query Response Start Date Stop Date Smoking Status Never smoker Vital Signs Vital Reading Result Reference Range Collection Date/Time Weight 96.6 kg February 02 5:25am Temperature 98.2 F 97.6 F-99.6 F February 02 5:23am Pulse 77 BPM 60-100 February 02 5:23am Respiration 16 RPM 12-February 02 5:23am Pulse Oximetry 94 % 95-100 February 02 021 5:23am Blood Pressure Systolic 106 100-140 Octo dinorah 2020 5:23am Blood Pressure Diastolic 77 50-85 Oct edie 2020 5:23am
--- OUTSIDE RECORDS SUMMARY | 2023-03-24 03:13 | XMS_ITS | Continuity of Care Document ---
Author Name [facility] Address [address] [place] [address] Organization [facility] Address [address] [place] [address] Care Team Providers Care Sanding Machine Operator Name Role Phone Out of Town, [...] Abd Pel w/ Contrast January 27, 2021 active Relevant Diagnostic Tests and/or Laboratory Data Laboratory [...] have a copy on file here at [facility]? No January 25, 2021 2:39am Does patient have an Advanced Directive? No January 25, 2021 2:39am Pt has a Living Will? No January 2:39am Pt has a Power of Optimization Consultant? No Jano 2020 2:39am Chief Complaint and [...] Date Discharge/Departure Date Attending Provider Admitted Inpatient [facility] Progressive Care Unit January 26, [...] 60-100 January 27 8:00am Respiration 20 RPM 12-January 27 6:34am Pulse Oximetry 95 % 95-100 January 27 6:34am Blood Pressure Systolic 143 100-140 Octo 1 6:34am Blood Pressure Diastolic 78 50-85 Oct edie 2020 6:34am
--- OUTSIDE RECORDS SUMMARY | 2023-03-24 03:13 | XMS_ITS | Continuity of Care Document ---
Author Name Address [address] [place] [address] Organization Address [address] [place] [address] Care Team Providers Care Mirror Polisher Name Role Phone Out of Town, Provider [...] January 2:39am Pt has a Power of Cloth Shearing Supervisor? No Jano 2020 2:39am Chief Complaint and [...]
--- OUTSIDE RECORDS SUMMARY | 2023-03-24 03:13 | XMS_ITS | Continuity of Care Document ---
Author Name [facility] Address [address] [place] [address] Organization [facility] Address [address] [place] [address] Care Team Providers Care Regulator Operator Name Role Phone Out of Town, Provider Primary Care Physician Kimberlee vailable Edgardo Quiñonez Admitting Physician [phone] Elva Ramirez Attending Physician Allergies, Adverse Reactions, [...] be used to monitor LMWH therapy. Contact [facility] for monitoring information. D-Dimer January 28, 2021 6:35pm 1650 ng/mLDDU High 0-250 Results confirme d by repeat analysis Cutoff value for the exclusion of DVT and PE: 250 ng/mL DDU. This D-Dimer assay is intended for use in conjunction with a non-high clinical pre-test probability (PTP)assessment model to exclude deep vein thrombosis (DVT) and pulmonary embolism (PE). Assayed using Siemens [employer] D-Dimer. Stool Occult Blood January 26, 2021 [...] Test performed o r referred by The [address] [address] Advance Directives Advance Directive Response Recorded Date/ Time Do we have a copy on file here at [facility] No January 25, 2021 2:39am Does patient have an Advanced Directive? No January 25, 2021 2:39am Pt has a Living Will? No January 2:39am Pt has a Power of Petrography Teacher? No Octo dinorah 2020 2:39am Chief Complaint [...] Date Discharge/Departure Date Attending Provider Registered Inpatient [facility] Pulmonology January 26, 2021 8:58pm Sarah [...] Weight 95.8 kg January 31 5:32am Temperature 98.3 F 97.6 F-99.6 F January 31 1:25pm Pulse 89 BPM 60-100 January 31 1:25pm Respiration 20 RPM 12-January 31 1:25pm Pulse Oximetry 95 % 95-100 January 31 021 1:25pm Blood Pressure Systolic 118 100-140 Octo dinorah 2020 1:25pm Blood Pressure Diastolic 75 50-85 Oct edie 2020 1:25pm
--- OUTSIDE RECORDS SUMMARY | 2023-03-24 03:13 | XMS_ITS | Continuity of Care Document ---
Author Name Unknown Address [address] [place] [address] Phone [facility] Address [address] [place] [address] Phone Support Name Relationship Address Phone ALANNA LOWERY Spouse Unknown [phone] ZEV JACOBO Child-Son/Daughter Unknown Out of Town, Provider Primary Care Provider Unknown Unavailable MD Edgardo Quiñ[place]z [place] [address] MD [place] [address] MD Sarah Shukla Attending Provider [facility] [place] [address] Chief Complaint and Reason for Visit Chief Complaint TERMINAL ILEITIS Reason for Visit Pleural effusion, bi lateral Supratherapeutic INR Terminal ileitis of small intestine Allergies, Adverse Reactions, Alerts Allergen Type Severity Reaction Last Updated Verified Status ketorolac Allergy Mild rash January 25, 2021 4:23am Yes Active Social History Smoking Status Status Start Date End Date Date of Observa tion Never smoked tobacco (finding) January 30, 2021 8:41am Observation Status Observation Response Date of Response substance use type does not use January 25, 2021 3:23am Smoking Status Never smoker January 30 8:41am Additional Data Assigned Sex Female Problems Active Problems Medical Problem Onset Date Status Rheumatoid arthritis Active Lupus Active Supratherapeutic INR Active GERD (gastroesophageal reflux disease) Active Pleural effusion, bilateral Acti ve Terminal ileitis of small intestine Active CVA (cerebral vascular accident) Active Asthma Active Medications Medication Status Dose Units Route Directions Qty Days St art Date End Date Instructions Atorvastatin Active 40 MG PO BEDTIME Jan edie2020 9:22am Levothyroxine Active 25 MCG PO DAILY Jan edie2020 9:22am Pantoprazole Active 40 MG PO TWICE A DAY January 25, 2021 9:22am Warfarin Active 10 MG PO MOTUWETHFRSA Oc tob2020 9:22am Levothyroxine Active 150 MCG PO DAILY Jan edie2020 9:22am Metoprolol Succinate Active 25 MG PO DAILY January 25, 2021 9:22am Hydroxychloro quine Active 200 MG PO TWICE A DAY January 25, 2021 9:22am Albuterol Sulfate (Ventolin Hfa) 90 mcg/actuation HFA aerosol inhaler Active 2 INH INH Q6H January 25, 2021 9:22am Fluoxetine Active 40 MG PO DAILY Octobe r 2020 9:22am Fluticasone Propionate (Flovent Hfa) 110 mcg/actuation HFA aerosol inhaler Active 2 INH INH TWICE A DAY January 25, 2021 9:22am Budesonide (Pulmicort Flexhaler) 90 mcg/actuation aerosol powdr breath activated Active 2 INH INH TWICE A DAY January 25, 2021 9:22am Aspirin Active 81 MG PO DAILY January 25, 2021 10:01am Lisinopril Active 5 MG PO DAILY Octobe r 2020 10:01am Warfarin Active 5 MG PO OROZCO January 26, 2021 8:53am Cefdinir Active 300 MG PO TWICE A DAY Jan edie2020 8:36am Vital Signs Vital Reading Result Reference Range Collection Date/Time Weight 96.60 kg February 02, 021 5:25am Body Temperature 98.2 [degF] 97.6-99.6 January 5:23am Heart Rate 77 /min 60-100 February 02, 021 5:23am Respiratory rate 16 /min 12-24 January 5:23am Oxygen saturation by Pulse oximetry 94 % 95-100 February 02, 2021 5 :23am BP Systolic 106 mm[Hg] 100-140 February 02, 021 5:23am BP Diastolic 77 mm[Hg] 50-85 February 02 5:23am Inhaled oxygen flow rate 3 L/min Jan edie 2020 6:39am Advance Directives Advance Directive Response Recorded Date/ Time Does patient have an Advanced Directive? No January 25, 2021 2:39am Do we have a copy on file here at [facility] No January 25, 2021 2:39am Pt has a Living Will? No January 252020 2:39am Do we have a copy on file here at [facility] No January 25, 2021 2:39am Pt has a Power of Technician Automated Equipment? No 2020 2:39am Do we have a copy on file here at [facility] No January 25, 2021 2:39am Insurance Providers Guarantor NOAH LOWERY Address [address] [place] [address] Contact Info. Home Phone: Payer Policy Id Coverage Id Subscriber's Name Subscriber Id Effective Date Expiration Date [place] [id number] NOAH LOWERY [id number] MEDICARE PART A AND B COVERAGE [id number] NOAH LOWERY [id number] SELF PAY Self N/A Encounters Encounter Location(s) Arrival/Admit Date Discharge/Depart Date Provider(s) Non-patient / Non-visit [facility] January 26, 2021 8:58pm Sarah Shukla MD Recent Diagnosis Onset Date Pleural effusion, bilateral Supratherapeutic INR Terminal ileitis of small intestine Assessments Diagnosis Onset Date Resolution Status Pleural effusion, bilateral acute Supratherapeutic INR acute Terminal ileitis of small intestine acute Goals Acute Goals Goals: Hospital Discharge Instructions Additional Instructions GENERAL DISCHARGE INSTRUCTIONS OUR GOAL You have been cared for by the Hospital Care Team at [facility] ([facility] Our goal is to make sure that your discharge from the hospital is as safe as possible. This means making sure that: ?? You understand the reason for your hospitalization. ?? You understand your medications at discharge including any new prescriptions, changes to your medication, and stopped medications. ?? You know the symptoms of your illness and when to call for help. ?? You understand your discharge plan and instructions. ?? A summary of your care will be [...] WHO TO CALL v CONTACT US AT [facility] IF: You have not seen your primary care provider if you have questions regarding your care in the hospital including questions regarding your medications, discharge instructions, or services arranged prior to seeing your primary care provider. If you were discharged from the Progressive Care Unit, contact us at: [phone] v CONTACT YOUR PRIMARY CARE IF You [...] RETURNED OR SEVERELY WORSENED. THESE MIGHT INCLUDE: ?? Shortness of Breath Temperature > 101 F ?? any bleeding ?? Uncontrolled bleeding ?? Severe pain not controlled by available oral pain medications ?? Persistent vomiting or vomiting blood ?? Fainting ?? Unexpected shortness of breath or difficulty breathing ?? Persistent high fever greater than 101 ?? Seizure
--- OUTSIDE RECORDS SUMMARY | 2023-03-24 03:13 | XMS_ITS | Continuity of Care Document ---
Author Name [facility] Address [address] [place] [address] Organization [facility] Address [address] [place] [address] Care Team Providers Care Food Service Substitute Name Role Phone Out of Town, Provider Primary Care Physician Edgardo Dimas Sra Admitting Physician [phone] Abdirizak Obregon Attending Physician Allergies, Adverse Reactions, [...] a copy on file here at [facility]? No January 25, 2021 2:39am Does patient have an Advanced Directive? No January 25, 2021 2:39am Pt has a Living Will? No January 2:39am Pt has a Power of Aeronautical Engineering Teacher? No Jano 2020 2:39am Chief Complaint and [...] Temperature 98.5 F 97.6 F-99.6 F January 27 2:00pm Pulse 101 BPM 60-100 January 27 4:00pm Respiration 16 RPM 12-January 27 2:00pm Pulse Oximetry 92 % 95-100 January 27 021 2:00pm Blood Pressure Systolic 126 100-140 Octo dinorah 2020 2:00pm Blood Pressure Diastolic 58 50-85 Oct edie 2020 2:00pm
--- OUTSIDE RECORDS SUMMARY | 2023-03-24 03:13 | XMS_ITS | Continuity of Care Document ---
Author Name [facility] Address [address] [place] [address] Organization [facility] Address [address] [place] [address] Care Team Providers Care Stumper Feller Name Role Phone Out of Town, Provider Primary Care Physician Edgardo Dimas Sra Admitting Physician Edgardo Quiñonez Attending Physician [phone] Allergies, Adverse Reactions, Alerts Allergen Type Severity [...] Result Co mment White Blood Count January 26, 2021 8:32pm 13.80 1000/mm3 High 4.8-10.8 Red Blood Count January 26, 2021 8:32pm 3.30 M/mm3 Low 4.20-5.40 Hemoglobin January 26, 2021 8:32pm 10.6 g/dL Low 12.0-16.0 Hematocrit January 26, 2021 8:32pm 31.1 % Low 37-47 Mean Corpuscular Volume January 26, 2021 8:32pm 94.2 fL 81.0-99.0 Mean Corpuscular Hemoglobin January 26, 2021 8:32pm 32.1 pg High 27-31 Mean Corpuscular Hemoglobin Concent January 26, 2021 8:32pm 34.1 g/dL 33-37 Red Cell Distribution Width January 26, 2021 8:32pm 13.1 % 11.5-14.5 Platelet Count January 26, 2021 8:32pm 241 1000/mm3 140-440 Mean Platelet Volume January 26, 2021 8:32pm 10.0 fL 7.4-10.4 Prothrombin Time January 26, 2021 7:07am > 93.6 SECONDS High 9.6-11.2 INR >9.1 due to PT result of >93.6 seconds Results confirmed by repeat analysis Prothromb Time International Ratio January 26, 2021 7:07am TNP Test not performed Stool Occult Blood January 26, 2021 6:15pm Positive High Sodium Level January 26, 2021 7:07am 135 mmol/L Low 137-145 Potassium Level January 26, 2021 7:07am 3.3 mmol/L Low 3.6-5.0 Chloride Level January 26, 2021 7:07am 100 mmol/L 98-107 Carbon Dioxide Level January 26, 2021 7:07am 29 mmol/L 22-30 Anion Gap January 26, 2021 7:07am 6 Low 7-16 Blood Urea Nitrogen January 26, 2021 7:07am 10 mg/dL 7-17 Creatinine January 26, 2021 7:07am 0.61 mg/dL 0.52-1.04 Glomerular Filtration Rate Calc January 26, 2021 7:07am > 60 mL/min 60.0- Glucose Level January 26, 2021 7:07am 115 mg/dL High 70-100 Calcium Level January 26, 2021 7:07am 8.1 mg/dL Low 8.4-10.2 Free Thyroxine January 25, 2021 6:35am 2.14 [...] have a copy on file here at [facility]? No January 25, 2021 2:39am Does patient have an Advanced Directive? No January 25, 2021 2:39am Pt has a Living Will? No January 2:39am Pt has a Power of Healthcare Or Medical? No Octo 2020 2:39am Chief Complaint and [...] Date Discharge/Departure Date Attending Provider Admitted Inpatient [facility] Progressive Care Unit January 26, 2021 8:58pm Edgardo Quiñonez Encounter Diagnosis Onset Date Supratherapeutic INR Terminal [...] Weight 95.2 kg January 25 3:27am Temperature 97.7 F 97.6 F-99.6 F January 27 3:39am Pulse 132 BPM 60-100 January 27 3:39am Respiration 22 RPM 12-January 27 3:39am Pulse Oximetry 97 % 95-100 January 27 021 3:39am Blood Pressure Systolic 136 100-140 Octo dinorah 2020 3:39am Blood Pressure Diastolic 82 50-85 Oct edie 2020 3:39am
--- OUTSIDE RECORDS SUMMARY | 2023-03-24 03:13 | XMS_ITS | Continuity of Care Document ---
Author Name [facility] Address [address] [place] [address] Organization [facility] Address [address] [place] [address] Care Team Providers Care Dietary Assistant Name Role Phone Out of Town, Provider Primary Care Physician Edgardo Dimas Sra Admitting Physician [phone] Abdirizak Obregon Attending Physician Allergies, Adverse Reactions, [...] have a copy on file here at [facility]? No January 25, 2021 2:39am Does patient have an Advanced Directive? No January 25, 2021 2:39am Pt has a Living Will? No January 2:39am Pt has a Power of Coding File Clerk? No Octo 2020 2:39am Chief Complaint and [...] Date Discharge/Departure Date Attending Provider Admitted Inpatient [facility] Progressive Care Unit January 25, 2021 2:33am [...]
--- OUTSIDE RECORDS SUMMARY | 2023-03-24 03:13 | XMS_ITS | Continuity of Care Document ---
Author Name [facility] Address [address] [place] [address] Organization [facility] Address [address] [place] [address] Care Team Providers Care Shower Screen Installer Name Role Phone Out of Town, Provider [...] a copy on file here at [facility]? No January 25, 2021 2:39am Does patient have an Advanced Directive? No January 25, 2021 2:39am Pt has a Living Will? No January 2:39am Pt has a Power of Human Resources Manager Manufacturing? No Octo 2020 2:39am Chief Complaint and [...] Date Discharge/Departure Date Attending Provider Admitted Inpatient [facility] Progressive Care Unit January 25, [...] Weight 95.2 kg January 25 3:27am Temperature 98.7 F 97.6 F-99.6 F January 26 2:54pm Pulse 108 BPM 60-100 January 26 4:00pm Respiration 16 RPM -January 26 2:54pm Pulse Oximetry 91 % 95-100 January 26 021 2:54pm Blood Pressure Systolic 137 100-140 Octo dinorah 2020 2:54pm Blood Pressure Diastolic 78 50-85 Oct edie 2020 2:54pm
--- OUTSIDE RECORDS SUMMARY | 2023-03-24 03:13 | XMS_ITS | Continuity of Care Document ---
Author Name [facility] Address [address] [place] [address] Organization [facility] Address [address] [place] [address] Care Team Providers Care Filler Sifter Machine Name Role Phone Out of Town, Provider Primary Care Physician Edgardo Dimas Sra Admitting Physician [phone] Abdirizak Obregon Attending Physician Allergies, Adverse [...] mment White Blood Count January 26, 2021 7:07am 10.71 1000/mm3 4.8-10.8 Red Blood Count January 26, 2021 7:07am 3.29 M/mm3 Low 4.20-5.40 Hemoglobin January 26, 2021 7:07am 10.6 g/dL Low 12.0-16.0 Hematocrit January 26, 2021 7:07am 31.8 % Low 37-47 Mean Corpuscular Volume January 26, 2021 7:07am 96.7 fL 81.0-99.0 Mean Corpuscular Hemoglobin January 26, 2021 7:07am 32.2 pg High 27-31 Mean Corpuscular Hemoglobin Concent January 26, 2021 7:07am 33.3 g/dL 33-37 Red Cell Distribution Width January 26, 2021 7:07am 13.2 % 11.5-14.5 Platelet Count January 26, 2021 7:07am 219 1000/mm3 140-440 Mean Platelet Volume January 26, 2021 7:07am 10.2 fL 7.4-10.4 Prothrombin Time January 26, 2021 7:07am > 93.6 SECONDS High 9.6-11.2 INR >9.1 due to PT result of >93.6 seconds Results confirmed by repeat analysis Prothromb Time International Ratio January 26, 2021 7:07am TNP Test not performed Sodium Level January 26, 2021 7:07am 135 [...] have a copy on file here at [facility]? No January 25, 2021 2:39am Does patient have an Advanced Directive? No January 25, 2021 2:39am Pt has a Living Will? No January 2:39am Pt has a Power of Traffic Director? No Octo 2020 2:39am Chief Complaint and [...] Date Discharge/Departure Date Attending Provider Admitted Inpatient [facility] Progressive Care Unit January 25, 2021 [...] 98.7 F 97.6 F-99.6 F January 26 5:54am Pulse 84 BPM 60-100 January 26 5:54am Respiration 16 RPM 12-24 January 26 5:54am Pulse Oximetry 93 % 95-100 January 26 021 5:54am Blood Pressure Systolic 120 100-140 Octo dinorah 2020 5:54am Blood Pressure Diastolic 79 50-85 Oct edie 2020 5:54am
--- OUTSIDE RECORDS SUMMARY | 2023-03-24 03:13 | XMS_ITS | Continuity of Care Document ---
Author Name [facility] Address [address] [place] [address] [facility] Address [address] [place] [address] Care Team Providers Care Straightening Machine Feeder Name Role Phone Out of Town, Provider Primary Care Physician Kimberlee vailable Edgardo Quiñonez Admitting Physician [phone] Abdirizak Obregon Attending Physician Allergies, Adverse Reactions, [...] mechanical heart valves. APTT (Heparin Protocol) January 30, 2021 11:32am 33.7 SECONDS Low 55-85 A target of 1.5-2.5 times the mean of the normal reference range is considered therapeutic. NOTE: APTT must NOT be used to monitor LMWH therapy. Contact [facility] for monitoring information. D-Dimer January 28, 2021 6:35pm 1650 ng/mLDDU High 0-250 Results confirme d by repeat analysis Cutoff value for the exclusion of DVT and PE: 250 ng/mL DDU. This D-Dimer assay is intended for use in conjunction with a non-high clinical pre-test probability (PTP)assessment model to exclude deep vein thrombosis (DVT) and pulmonary embolism (PE). Assayed using Siemens [employer] D-Dimer. Stool Occult Blood January 26, 2021 [...] Test performed o r referred by The [address] [address] Advance Directives Advance Directive Response Recorded Date/ Time Do we have a copy on file here at [facility]? No January 25, 2021 2:39am Does patient have an Advanced Directive? No January 25, 2021 2:39am Pt has a Living Will? No January 2:39am Pt has a Power of Naval Marine Engineer? No Octo 2020 2:39am Chief Complaint and [...] Weight 95.2 kg January 25 3:27am Temperature 99.6 F 97.6 F-99.6 F January 30 10:00am Pulse 92 BPM 60-100 January 30 10:00am Respiration 16 RPM 12-January 30 10:00am Pulse Oximetry 90 % 95-100 January 30 021 10:00am Blood Pressure Systolic 125 100-140 Octo dinorah 2020 10:00am Blood Pressure Diastolic 69 50-85 Oct edie 2020 10:00am
--- OUTSIDE RECORDS SUMMARY | 2023-03-24 03:13 | XMS_ITS | Continuity of Care Document ---
Author Name [facility] Address [address] [place] [address] Organization [facility] Address [address] [place] [address] Care Team Providers Care Zipper Machine Operator Name Role Phone Out of Town, Provider Primary Care Physician Kimberlee vailable Edgardo Quiñonez Admitting Physician [phone] Elva Ramirez Attending Physician Allergies, Adverse [...] be used to monitor LMWH therapy. Contact [facility] for monitoring information. D-Dimer January 28, 2021 6:35pm 1650 ng/mLDDU High 0-250 Results confirme d by repeat analysis Cutoff value for the exclusion of DVT and PE: 250 ng/mL DDU. This D-Dimer assay is intended for use in conjunction with a non-high clinical pre-test probability (PTP)assessment model to exclude deep vein thrombosis (DVT) and pulmonary embolism (PE). Assayed using Siemens [employer] D-Dimer. Stool Occult Blood January 26, 2021 [...] Test performed o r referred by The [address] [address] Advance Directives Advance Directive Response Recorded Date/ Time Do we have a copy on file here at [facility]? No January 25, 2021 2:39am Does patient have an Advanced Directive? No January 25, 2021 2:39am Pt has a Living Will? No January 2:39am Pt has a Power of Balance Assembler? No Octo dinorah 2020 2:39am Chief Complaint [...] Date Discharge/Departure Date Attending Provider Registered Inpatient [facility] Pulmonology January 26, 2021 8:58pm Sarah [...]
--- OUTSIDE RECORDS SUMMARY | 2023-03-24 03:13 | XMS_ITS | Continuity of Care Document ---
Author Name [facility] Address [address] [place] [address] Organization [facility] Address [address] [place] [address] Care Team Providers Care Pin Game Machine Inspector Name Role Phone Out of Town, Provider [...] MG ORAL TWICE A DAY O ctober 2021 Active Albuterol Sulfate [Ventolin Hfa] 2 [...] Date Status Rheumatoid arthritis Active Lupus Active GERD (gastroesophageal reflux disease) Active CVA (cerebral vascular accident) Active Asthma Active Inactive/Resolved Problems Medical Problem Onset Date Status Supratherapeutic INR Resolved Pleural effusion, bilateral Reso lved Procedures Procedure Date Status Chest 1 vw [...] used to monitor LMWH therapy. Contact [facility] for monitoring information. D-Dimer January 28, 2021 6:35pm 1650 ng/mLDDU High 0-250 Results confirme d by repeat analysis Cutoff value for the exclusion of DVT and PE: 250 ng/mL DDU. This D-Dimer assay is intended for use in conjunction with a non-high clinical pre-test probability (PTP)assessment model to exclude deep vein thrombosis (DVT) and pulmonary embolism (PE). Assayed using Siemens [email or web address] D-Dimer. Stool Occult Blood January 26, 2021 [...] Test performed o r referred by The [address] [address] Advance Directives Advance Directive Response Recorded Date/ Time Do we have a copy on file here at [facility]? No January 25, 2021 2:39am Does patient have an Advanced Directive? No January 25, 2021 2:39am Pt has a Living Will? No January 2:39am Pt has a Power of Dust Collector Attendant? No Octo 2020 2:39am Chief Complaint and Reason for Visit Encounter Admit Date Chief Complaint Reason for V isit Registered Inpatient January 26, 2021 8:58pm TERMINAL ILEITIS Pleural effusion, bilateral Supratherapeutic INR Hospital Discharge Instructions Additional Discharge Instructions GENERA L DISCHARGE INSTRUCTIONS OUR GOAL You have been cared for by the Hospital Care Team at [facility] ([facility]). Our goal is to make sure that [...] WHO TO CALL v CONTACT US AT [facility] IF: You have not seen your primary care provider if you have questions regarding your care in the hospital including questions regarding your medications, discharge instructions, or services arranged prior to seeing your primary care provider. If you were discharged from the Progressive Care Unit, contact us at: [phone] v CONTACT YOUR PRIMARY CARE IF You [...] Date Discharge/Departure Date Attending Provider Registered Inpatient [facility] Pulmonology January 26, 2021 8:58pm Sarah Shukla Encounter Diagnosis Onset Date Pleural effusion, bilateral Supratherapeutic INR Functional Status Query Response Date Recorded Comment [...]
--- OUTSIDE RECORDS SUMMARY | 2023-03-24 03:13 | XMS_ITS | Continuity of Care Document ---
Author Name [facility] Address [address] [place] [address] Organization [facility] Address [address] [place] [address] Care Team Providers Care Order Entry Administrator Name Role Phone Out of Town, Provider Primary Care Physician Kimberlee vailable Edgardo Quiñonez Admitting Physician Abdirizak Obregon Attending Physician [phone] Allergies, Adverse Reactions, Alerts Allergen Type Severity [...] valves. APTT (Heparin Protocol) January 30, 2021 6:11pm 110.7 SECONDS High 55-85 A target of 1.5-2.5 times the mean of the normal reference range is considered therapeutic. NOTE: APTT must NOT be used to monitor LMWH therapy. Contact [facility] for monitoring information. D-Dimer January 28, 2021 6:35pm 1650 ng/mLDDU High 0-250 Results confirme d by repeat analysis Cutoff value for the exclusion of DVT and PE: 250 ng/mL DDU. This D-Dimer assay is intended for use in conjunction with a non-high clinical pre-test probability (PTP)assessment model to exclude deep vein thrombosis (DVT) and pulmonary embolism (PE). Assayed using Siemens [employer] inTouch D-Dimer. Stool Occult Blood January 26, 2021 6:15pm Positive High Sodium Level January 30, 2021 6:17am 137 mmol/L 137-145 Potassium Level January 30, 2021 6:11pm 3.4 mmol/L Low 3.6-5.0 Chloride Level January 30, 2021 6:17am 96 [...] Test performed [place] [address] Advance Directives Advance Directive Response Recorded Date/ Time Do we have a copy on file here at [facility]? No January 25, 2021 2:39am Does patient have an Advanced Directive? No January 25, 2021 2:39am Pt has a Living Will? No October 22 , 2021 2:39am Pt has a Power of Cnc Service Technician? No Octo dinorah 2020 2:39am Chief Complaint [...] Date Discharge/Departure Date Attending Provider Registered Inpatient [facility] Pulmonology January 26, 2021 8:58pm Sarah [...] Weight 95.2 kg January 25 3:27am Temperature 98.4 F 97.6 F-99.6 F January 30 8:29pm Pulse 89 BPM 60-100 January 30 8:29pm Respiration 16 RPM 12-January 30 8:29pm Pulse Oximetry 98 % 95-100 January 30 021 8:29pm Blood Pressure Systolic 127 100-140 Octo dinorah 2020 8:29pm Blood Pressure Diastolic 69 50-85 Oct edie 2020 8:29pm
--- OUTSIDE RECORDS SUMMARY | 2023-03-24 03:13 | XMS_ITS | Continuity of Care Document ---
Author Name [facility] Address [address] [place] [address] Organization [facility] Address [address] [place] [address] Care Team Providers Care Interpretive Program Coordinator Name Role Phone Out of Town, [...] be used to monitor LMWH therapy. Contact [facility] for monitoring information. D-Dimer January 28, 2021 6:35pm 1650 ng/mLDDU High 0-250 Results confirme d by repeat analysis Cutoff value for the exclusion of DVT and PE: 250 ng/mL DDU. This D-Dimer assay is intended for use in conjunction with a non-high clinical pre-test probability (PTP)assessment model to exclude deep vein thrombosis (DVT) and pulmonary embolism (PE). Assayed using Siemens [employer] D-Dimer. Stool Occult Blood January 26, 2021 [...] Test performed o r referred by The [address] [address] Advance Directives Advance Directive Response Recorded Date/ Time Do we have a copy on file here at [facility]? No January 25, 2021 2:39am Does patient have an Advanced Directive? No January 25, 2021 2:39am Pt has a Living Will? No January 2:39am Pt has a Power of Cake Inspector? No Octo dinorah 2020 2:39am Chief Complaint [...] Date Discharge/Departure Date Attending Provider Registered Inpatient [facility] Pulmonology January 26, 2021 8:58pm Sarah Shukla [...]
--- OUTSIDE RECORDS SUMMARY | 2023-03-24 03:13 | XMS_ITS | Continuity of Care Document ---
Author Name [facility] Address [address] [place] [address] Organization [facility] Address [address] [place] [address] Care Team Providers Care Mortar Maker Name Role Phone Out of Town, Provider Primary Care Physician Kimberlee vailable Edgardo Quiñonez Admitting Physician Elva Ramirez Attending Physician [phone] Allergies, Adverse Reactions, Alerts Allergen Type [...] used to monitor LMWH therapy. Contact [facility] for monitoring information. [...] and pulmonary embolism (PE). Assayed using Siemens [employer] D-Dimer. Stool Occult Blood January 26, 2021 [...] Test performed o r referred by The [address] [address] Advance Directives Advance Directive Response Recorded Date/ Time Do we have a copy on file here at [facility] No January 25, 2021 2:39am Does patient have an Advanced Directive? No January 25, 2021 2:39am Pt has a Living Will? No January 2:39am Pt has a Power of Wind Technician? No Octo 2020 2:39am Chief Complaint and Reason for Visit Encounter Admit Date Chief Complaint Reason for V isit Registered Inpatient January 26, 2021 8:58pm TERMINAL ILEITIS Pleural effusion, bilateral Supratherapeutic INR Terminal ileitis of small intestine Hospital Discharge Instructions Additional Discharge Instructions GENERA L DISCHARGE INSTRUCTIONS OUR GOAL You have been cared for by the Hospital Care Team at [facility] ([facility] Our [...] WHO TO CALL v CONTACT US AT [facility] IF: You have not seen your primary care provider if you have questions regarding your care in the hospital including questions regarding your medications, discharge instructions, or services arranged prior to seeing your primary care provider. If you were discharged from the Progressive Care Unit, contact us at: [phone] v CONTACT YOUR PRIMARY CARE IF You [...]
--- OUTSIDE RECORDS SUMMARY | 2023-03-24 03:13 | XMS_ITS | Continuity of Care Document ---
Author Name [facility] Address [address] [place] [address] Organization [facility] Address [address] [place] [address] Care Team Providers Care Cash Grain Farmer Name Role Phone Out of Town, Provider Primary Care Physician Kimberlee vailable Edgardo Quiñonez Admitting Physician [phone] Elva Ramirez Attending Physician Allergies, Adverse [...] be used to monitor LMWH therapy. Contact [facility] for monitoring information. D-Dimer January 28, 2021 6:35pm 1650 ng/mLDDU High 0-250 Results confirme d by repeat analysis Cutoff value for the exclusion of DVT and PE: 250 ng/mL DDU. This D-Dimer assay is intended for use in conjunction with a non-high clinical pre-test probability (PTP)assessment model to exclude deep vein thrombosis (DVT) and pulmonary embolism (PE). Assayed using Siemens [employer] D-Dimer. Stool Occult Blood January 26, 2021 [...] Test performed o r referred by The [address] [address] Advance Directives Advance Directive Response Recorded Date/ Time Do we have a copy on file here at [facility]? No January 25, 2021 2:39am Does patient have an Advanced Directive? No January 25, 2021 2:39am Pt has a Living Will? No January 2:39am Pt has a Power of Rfid Systems Architect? No Octo 2020 2:39am Chief Complaint and [...] Date Discharge/Departure Date Attending Provider Registered Inpatient [facility] Pulmonology January 26, 2021 8:58pm [...] 60-100 January 31 1:25pm Respiration 20 RPM 12-24 January 31 1:25pm Pulse Oximetry 95 % 95-100 January 31 021 1:25pm Blood Pressure Systolic 118 100-140 Octo dinorah 2020 1:25pm Blood Pressure Diastolic 75 50-85 Oct edie 2020 1:25pm
--- OUTSIDE RECORDS SUMMARY | 2023-03-24 03:13 | XMS_ITS | Continuity of Care Document ---
Author Name [facility] Address [address] [place] [address] Organization [facility] Address [address] [place] [address] Care Team Providers Care Surgical Sales Representative Name Role Phone Out of Town, Provider [...] Test performed [place] [address] Advance Directives Advance Directive Response Recorded Date/ Time Do we have a copy on file here at [facility]? No January 25, 2021 2:39am Does patient have an Advanced Directive? No January 25, 2021 2:39am Pt has a Living Will? No January 2:39am Pt has a Power of Dialysis Equipment Technician? No Jano 2020 2:39am Chief Complaint and [...] Active Warfarin 10 MG ORAL MOTUWETHF [facility] January 25, 2021 Active Levothyroxine 150 [...] Date Discharge/Departure Date Attending Provider Admitted Inpatient [facility] Progressive Care Unit January 26, 2021 [...]
--- OUTSIDE RECORDS SUMMARY | 2023-03-24 03:13 | XMS_ITS | Continuity of Care Document ---
Author Name [facility] Address [address] [place] [address] Organization [facility] Address [address] [place] [address] Care Team Providers Care Drug Safety Data Management Specialist Name Role Phone Out of Town, Provider Primary Care Physician Kimberlee vailable Edgardo Quiñonez Admitting Physician [phone] Edgardo Quiñonez Attending Physician Allergies, Adverse Reactions, Alerts Allergen [...] have a copy on file here at [facility]? No January 25, 2021 2:39am Does patient have an Advanced Directive? No January 25, 2021 2:39am Pt has a Living Will? No January 2:39am Pt has a Power of Rug Dyer? No Octo 2020 2:39am Chief Complaint and [...] Levothyroxine 25 MCG ORAL DAILY Oc tober 2021 Active Pantoprazole 40 MG ORAL TWICE A [...] 60-100 January 26 4:00pm Respiration 16 RPM 12-January 26 2:54pm Pulse Oximetry 91 % 95-100 January 26 2:54pm Blood Pressure Systolic 137 100-140 Octo dinorah 2020 2:54pm Blood Pressure Diastolic 78 50-85 Oct edie 2020 2:54pm
[2023-03-24 10:54] LABS: ESR 4 mm/hr (0-30)
[2023-03-24 10:55] LABS: Abs Immature Grans 0.02 10^3/uL (0.0-0.06); Absolute Basophil Count 0.09 10^3/uL (0.0-0.2); Absolute Eosinophil Count 0.39 10^3/uL (0.0-0.7); Absolute Lymphocyte Count 1.26 10^3/uL (1.2-3.4); Absolute Monocyte Count 0.45 10^3/uL (0.1-0.8); Absolute Neutrophil Count 3.78 10^3/uL (1.2-6.7); Basophils % 1.5; Eosinophils % 6.5; HCT 40.2 % (36.0-46.0); HGB 13.6 g/dL (11.2-15.7); Immature Grans % 0.3; MCH 31.9 pg (27.0-33.0); MCHC 33.8 % (32.0-36.0); MCV 94 fL (80-95); MPV 9.8 fL (8.0-11.0); Monocytes % 7.5; Neutrophils % 63.2; Platelet Count 274 10^3/uL (130-400); RBC 4.27 10^6/uL (3.93-5.22); RDW 12.9 % (11.7-14.6); RDW-SD 44.2 fL; WBC 5.99 10^3/uL (4.4-10.8)
[2023-03-24 10:57] LABS: Bilirubin Negative (Negative); Blood Trace-intact (Negative); Clarity Sl Cloudy (Clear); Glucose Negative (Negative); Ketones Negative (Negative); Leukocyte Esterase Small (Negative); Nitrite Negative (Negative); Specific Gravity >= 1.030 (1.005-1.025); Urobilinogen 0.2 mg/dL (Up to 0.2); pH 5.5 (5-8)
[2023-03-24 11:04] LABS: Bacteria Moderate HPF (Negative); C & S Indicated? No/Sq. Contamination; Casts Negative LPF (Negative); Crystals Negative HPF (Negative); Epithelial Cells Many HPF (Negative); Mucus Negative (Negative); RBC 0-2 HPF (0-2)
[2023-03-24 12:24] LABS: ALT 24 U/L (14-59); AST 24 U/L (15-37); Albumin 3.6 g/dL (3.4-5.0); Alkaline Phosphatase 131 U/L (46-116); Anion Gap 5.9 mmol/L (3-11); BUN 15 mg/dL (7-18); Bilirubin, Total 0.4 mg/dL (0.2-1.0); C-Reactive Protein 0.15 mg/dL (0.0-0.3); CO2 30.1 mmol/L (21.0-32.0); Calcium 9.3 mg/dL (8.5-10.1); Chloride 105 mmol/L (98-107); Estimated GFR 68.21 (mL/min/1.73m2); Glucose 96 mg/dL (74-106); Potassium 3.8 mmol/L (3.5-5.1); Sodium 141 mmol/L (136-145); Total Protein 7.5 g/dL (6.4-8.2)
[2023-03-24 12:27] LABS: TSH (W/Ref FT4) < 0.01 uIU/mL (0.36-3.74)
[2023-03-24 12:46] LABS: FREE T4 1.68 ng/dL (0.76-1.46)
== END 2023-03-24 02:51 | disposition home or self-care (01) ==
LOC: LBO 02:50
PROVIDERS: PCP Nurse Practitioner Family; Visit Provider Internal Medicine Rheumatology
DX: M32.19 Other organ or system involvement in systemic lupus erythematosus (principal)
CPT/HCPCS: 36415; 80053; 85652; 81003; 81015; 82565; 84156; 84439; 84443; 85025; 86140

== ENCOUNTER 2023-09-21 15:05 | Outpatient (CLI) | payer OTHER, MEDICAID, SELFPAY ==
--- OUTSIDE RECORDS SUMMARY | 2023-09-21 15:08 | XMS_ITS | Continuity of Care Document ---
Author Name Unknown Organization [facility] Address [facility] [address] [place] [address] Phone [phone] Care Team Providers Care Manager Non Profit Name Role Phone Abdirizak Obregon MD Care Team Information Mangle Operator Garments Unavailable
[2023-09-21 15:55] LABS: TSH (W/Ref FT4) < 0.01 uIU/mL (0.36-3.74)
[2023-09-21 16:24] LABS: FREE T4 2.43 ng/dL (0.76-1.46)
== END 2023-09-21 15:06 | disposition home or self-care (01) ==
LOC: NCHCN 15:06
PROVIDERS: PCP Nurse Practitioner Family; Visit Provider Nurse Practitioner Family
DX: E03.9 Hypothyroidism, unspecified (principal)
CPT/HCPCS: 84439; 84443

== ENCOUNTER 2023-09-23 19:15 | Outpatient (REF) | payer OTHER, SELFPAY | END 2023-09-23 19:16 | disposition home or self-care (01) | LOC: NCHCN 19:15 | PROVIDERS: PCP Nurse Practitioner Family; Visit Provider Physician Assistant Medical | DX: J02.9 Acute pharyngitis, unspecified (principal) | CPT/HCPCS: 87637; 87070 ==

== ENCOUNTER 2023-11-04 15:04 | Outpatient (REF) | payer OTHER, SELFPAY ==
--- OUTSIDE RECORDS SUMMARY | 2023-11-04 15:07 | XMS_ITS | Continuity of Care Document ---
Author Organization [facility] Address [facility] [address] [place] [address] Phone [phone] Care Team Providers Care Rn Medical Inpatient Services Name Role Phone Abdirizak Obregon MD Care Team Information Fixed Income Director Unavailable
--- OUTSIDE RECORDS SUMMARY | 2023-11-04 15:07 | XMS_ITS | Encounter Summary ---
[place] [address] Care Team Providers Care Transfer And Line Up Worker Name Role Phone Briana Timmons APRN Primary Care Provider [phone] Encounter Details Date Type Department Care Team (Late Contact Info) Description 10/14/2023 Orders Only Internal Medicine at [address] [phone] Shasta Dixon MD [facility] [place] [address] Social History Tobacco Use Types Packs/Day Years Used Date Smoking Tobacco: Former Cigarettes Q uit: 10/22/2007 Smokeless Tobacco: Never Alcohol Use Standard Drinks/Week Comments No 0 (1 standard drink = 0.6 oz pur e alcohol) Sex and Gender Information Value Date Recorded Sex Assigned at Female 05/01/2021 10:41 AM EST Gender Identity Female 05/01/2021 10:41 AM EST Sexual Orientation Straight 05/01/2021 10 :41 AM EST documented as of this encounter Plan of Treatment Upcoming Encounters Date Type Department Care Team (Late st Contact Info) Description 11/11/2023 3:00 AM EDT [place] [phone] documented as of this encounter Procedures Procedure Name Priority Date/Time Associated Diagnosis Comments EXTERNAL INR RESULTS PANEL Routine 10/14/2023 11:13 AM EDT documented in this encounter Results * (ABNORMAL) External INR Results Panel (10/14/2023 11:13 AM EDT) POCT INR 1.4(L) 2.5 - 3.5 MDINR Comment:mdINR - Inr Result F rom Android Mobile Application 10/14/2023 11:1 3 AM EDT 10/14/2023 11:13 AM EDT Shasta Dixon MD POINT OF CARE TEST ORDERABLES Performing Organization Address City/State/[facility] Co de Phone Number MDINR [address] [phone] documented in this encounter Visit Diagnoses Not on filedocumented in this encounter Care Teams Transfer And Line Up Worker Relationship Specialty Start Date End Date Briana Timmons, WATER TESTER [address] [place] [address] PCP - General Family Medicine 08/09/21 documented as of this encounter
--- OUTSIDE RECORDS SUMMARY | 2023-11-04 15:07 | XMS_ITS | Encounter Summary ---
Author Organization [facility] Address [address] [place] [address] Care Team Providers Care Material Stress Tester Name Role Phone Unknown, Provider Primary Care Provider [phone] Reason for Visit * Cardiology (Routine) - Receiving Office to Obtain Authorization Specialty Diagnoses / Procedures Ref[facility] To Contact Diagnoses Hypoxia Procedures TRANSTHORACIC ECHO (TTE) COMPLETE Abdirizak Obregon MD [address] [place] [id number] [facility] Referral ID Status Reason Start Date Expiration Date Visits Requested Visits Authorized [id number] Receiving Office to Obtain Authorization 1 1 1 Encounter Details Date Type Department Care Team (Latest Contact Info) Description 01/29/2021 15:58 EDT - 01/29/2021 23:59 EDT Hospital Encounter [facility] Non-Invasive Cardiology - [address] [address] Hypoxia Discharge Disposition: Home or Self Care Social History Tobacco Use Types Packs/Day Years Used Date Smoking Tobacco: Never Assessed Interpersonal Safety Answer Date Record ed Physically Hurt Never 11/06/2019 Verbally Threaten Not on file 11/06/2019 Sex and Gender Information Value Date Recorded Sex Assigned at Not on file Gender Identity Not on file Sexual Orientation Not on file documented as of this encounter Last Filed Vital Signs Vital Sign Reading Time Taken Comments Blood Pressure 147/82 01/29/2021 1605 EDT Pulse - - Temperature - - Respiratory Rate - - Oxygen Saturation - - Inhaled Oxygen Concentration - - Weight - - Height - - Body Mass Index - - documented in this encounter Discharge Disposition Disposition Code Departure Means Destination Home or Self Care documented in this encounter Plan of Treatment Not on file documented as of this encounter Procedures Procedure Name Priority Date/Time Associated Diagnosis Comments TRANSTHORACIC ECHO (TTE) COMPLETE Routine 01/29/2021 16:04 EDT Hypoxia documented in this encounter Results * TRANSTHORACIC ECHO (TTE) COMPLETE W/DOPPLER W/CF W/ CONTRAST (01/29/2021 16:04 EDT) Pathologist [facility] LV ID, ED, PLAX 4.7 3.5 - 6.0 cm [facility] LV ID, ES, PLAX 3.6 2.1 - 4.0 cm [facility] IVS thickness, ED, PLAX 1.0 cm [facility] LV PW thickness, ED, PLAX 1.0 0.6 - 1.1 cm [facility] LV end-diastolic volume, 1-p A4C 120 ml [facility] LV ejection fraction, 1-p A2C 55 % [facility] LV end diastolic volume 1-p A2C 157 ml [facility] EF 60 % [facility] LV Diastolic Volume 145 mL [facility] LV Systolic Volume 69 mL [facility] LV e', lateral 0.12 m/s [facility] LV E/e', lateral 8.0 [facility] LV e', medial 0.09 m/s [facility] LV E/e', medial 8.0 [facility] LV e', average 0.11 m/s [facility] LV E/e', average 8 [facility] Mitral deceleration slope 290 cm/s2 [facility] Mitral deceleration time 342 ms [facility] Mitral E-wave peak velocity 1.0 m/s [facility] Mitral A-wave peak velocity 1.1 m/s [facility] LA ID, A-P, ES 3.4 cm [facility] LA ID/bsa, A-P 1.6 cm/m2 [facility] LA Atrial Area A4C 17.2 cm2 [facility] LA Atrial Area A2C 17.2 cm2 [facility] LA volumes, ES, A4C 34.0 ml [facility] LA volume/bsa, ES, A4C 16.0 ml/m2 [facility] LA volume, ES, BP 45.0 ml [facility] LA volume/bsa, ES, BP 21.0 ml/m2 [facility] LA/aortic root ratio 1.26 [facility] O LA Atrial Length A4C 6.5 cm [facility] O LA Atrial Length A2C 5.5 cm [facility] O Aortic valve peak velocity, S 2.0 m/s [facility] Aortic valve mean velocity, S 1.4 m/s [facility] Aortic valve VTI, S 38.9 cm [facility] Aortic peak gradient, S 16 mmHg [facility] Aortic mean gradient, S 9 mmHg [facility] Mitral pressure half-time 100 ms [facility] Mitral peak gradient, D 4 mmHg [facility] Mitral valve area, PHT, DP 2.2 cm2 [facility] Aortic root ID 2.7 cm [facility] Ascending aorta ID, a-p 3.0 cm [facility] LV Diastolic Volume Index 69.0 mL/m2 [facility] LV Systolic Volume Index 33.0 mL/m2 [facility] Interventricular Septum to Posterior Wall Thickness Ratio 1 [facility] Anatomical Region Laterality Modality Ultrasound Narrative 01/30/2021 8:50 EDT ?Left??Ventricle: The left ventricular cavity was mildly dilated in size. Left ventricular systolic function was normal with an ejection fraction of 55-60%. Left ventricular wall motion was normal; there were no regional wall motion abnormalities. ?Aortic??Valve: There was a mechanical aortic valve. The gradient recorded across the prosthetic aortic valve was within the expected range. AV Peak Gradient: 16mmHg. AV Mean Gradient: 9mmHg. ?Mitral??Valve: There was mild mitral regurgitation. ?Right??Ventricle: The right ventricular cavity was normal in size. Right ventricular systolic function was normal. ?Pulmonic??Artery: Pulmonary systolic pressure was increased, in the range of 35 mmHg to 40 mmHg + right atrial pressure. Left Ventricle The left ventricular cavity was mildly dilated in size. Left ventricular systolic function was normal with an ejection fraction of 55-60%. Left ventricular diastolic parameters were not diagnostic. Left ventricular wall thickness was at the upper limits of normal. Left ventricular wall motion was normal; there were no regional wall motion abnormalities. Right Ventricle The right ventricular cavity was normal in size. Right ventricular systolic function was normal. Right ventricular wall thickness was normal. Left Atrium The left atrium was normal in size. Right Atrium The right atrium was normal in size. IVC/SVC The inferior vena cava was not well visualized. Mitral Valve Mitral valve structure was normal. There was mild mitral regurgitation. There was no significant mitral valve stenosis. Tricuspid Valve Tricuspid valve structure was normal. There was mild tricuspid valve regurgitation. There was no tricuspid valve stenosis. Aortic Valve There was a mechanical aortic valve. The gradient recorded across the prosthetic aortic valve was within the expected range. There was no aortic valve regurgitation. AV Peak Gradient: 16mmHg. AV Mean Gradient: 9mmHg. Pulmonic Valve Pulmonic valve structure was grossly normal. There was trace pulmonic valve regurgitation. There was no pulmonic valve stenosis. Ascending Aorta The aorta was normal in size. Pericardium There was no pericardial effusion. Pulmonic Artery Pulmonary systolic pressure was increased, in the range of 35 mmHg to 40 mmHg + right atrial pressure. Study Details Study status: Routine. Transthoracic echocardiography. M-Mode, complete 2D, complete spectral Doppler, and color Doppler.The study was interpreted by [facility]. Pertinent images and digital data are archived for permanent storage and are available for subsequent review. Scanning was performed from the apical, parasternal, subcostal and suprasternal acoustic windows. Definity contrast was used during the study. Overall the study quality was suboptimal. The study was difficult due to patient body habitus. Abdirizak Obregon MD CARDIAC ECHO ORDERAB LES documented in this encounter Visit Diagnoses Diagnosis Hypoxia Hypoxemia documented in this encounter Care Teams Material Stress Tester Relationship Specialty Start Date End Date Unknown, Provider, PCP - General 01/16/12 documented as of this encounter
--- OUTSIDE RECORDS SUMMARY | 2023-11-04 15:07 | XMS_ITS | Clinical Summary ---
Author Organization [facility] Address [address] [place] [address] Care Team Providers Care Geology Teacher Name Role Phone Unknown, Provider Primary Care Provider Social History Tobacco Use Types Packs/Day Years Used Date Smoking Tobacco: Never Assessed Interpersonal Safety Answer Date Record ed Physically Hurt Never 11/06/2019 Verbally Threaten Not on file 11/06/2019 Sex and Gender Information Value Date Recorded Sex Assigned at Not on file Gender Identity Not on file Sexual Orientation Not on file Last Filed Vital Signs Vital Sign Reading Time Taken Comments Blood Pressure 147/82 01/29/2021 1605 EDT Pulse - - Temperature - - Respiratory Rate - - Oxygen Saturation - - Inhaled Oxygen Concentration - - Weight - - Height - - Body Mass Index - - Plan of Treatment Health Maintenance Due Date Last Done Comments Hepatitis C Screen 1970 Hepatitis B Vaccine (1 of 3 - 19+ 3-dose series) 01/03 COVID-19 Vaccine ( season) 2022 Advance Directives For more information, please contact: [phone] Documents on File Type Date Recorded Patient Triage Licensed Practical Nurse Expl anation Advance Directive 10/16/2023 7:10 -[place] Advance Directive Registry & Appoitment of Health Care Agent Care Teams Geology Teacher Relationship Specialty Start Date End Date Unknown, Provider, PCP - General 01/16/12
--- OUTSIDE RECORDS SUMMARY | 2023-11-04 15:07 | XMS_ITS | Encounter Summary ---
[place] [address] Care Team Providers Care Automobile Designer Name Role Phone Briana Timmons APRN Primary Care Provider [phone] Encounter Details Date Type Department Care Team (Latest Contact Info) Description 10/28/2023 3:00 AM EDT Anti-Coag Telephone Visit [facility] [place] [address] Shasta Delaney, [facility] Antiphospholipid antibody----- use antiXa level to dose heparin. ; Aortic valve prosthesis present; Pulmonary embolism, unspecified chronicity, unspecified pulmonary embolism type, unspecified whether acute cor pulmonale present Social History Tobacco Use Types Packs/Day Years [...] AM EST documented as of this encounter Progress Notes * Shasta Delaney [facility] - 10/28/2023 3:00 AM EDT Images from the original note were not included. Anticoagulation Therapy Telephone Note: 10/08/2023 Anticoag Monitoring Prescreening Questionnaire Missed/extra doses of warfarin (not prescribed)? No Change in diet? No Change in alcohol consumption? No Antibiotic started/stopped? No Herbal supplement started/stopped? No Change in NSAID usage? No Recent falls No Recent bleeding? No Upcoming procedures? No Change to current meds/health? No Count of Low Risk Yes Responses 0 (No Low Risk Changes) Count of High Risk Yes Responses 0 (No High Risk Changes) Anticoagulation Summary As of 10/28/2023 INR goal: 2.5-3.5 TTR: 56.2% (6 mo) INR used for dosin (10/28/2023) Warfarin maintenance plan: 6 mg (5 mg x 1 and 1 mg x 1) every Thu, Sat; 5 mg (5 mg x 1) all other days Weekly warfarin total: 37 mg Plan last modified: Shasta Delaney [facility] (10/28/2023) Next INR check: 11/04/2023 Priority: 1 Week Target end date: Indefinite Indications Antiphospholipid antibody----- use antiXa level to dose heparin. 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] Pulmonary embolism unspecified chronicity unspecified pulmonary embolism type unspecified whether acute cor pulmonale present [I26.99] Anticoagulation Episode Summary INR check location: Home Draw Preferred lab: L[facility] Send INR reminders to: [facility] Comments: Home Monitor [phone] (M) Anticoagulation Care Providers Provider Role Specialty Phone number Karel Jerry MD Responsible Cardiology [phone] Patient Assessment Service Type: INR Test Result INR Result: Out of Range Clinical Outcomes Negatives: Major bleeding event, Thromboembolic event, Anticoagulation-related hospital admission, Anticoagulation-related ED visit Patient Findings Negatives: Upcoming Travel, Planning or Currently , Recent Fall, Signs/symptoms of thrombosis, Signs/symptoms of bleeding, Laboratory test error suspected, Change in health, Change in alcoholuse, Change in activity, Upcoming invasive procedure, Emergency department visit, Upcoming dental procedure, Missed doses, Extra doses, Change in medications, Change in diet/appetite, Hospital admission, Bruising, Other complaints Warfarin Therapy Instructions October 2023 Details Sun Thu Sat 1 2 3 4 5 6 7 8 9 10 11 12 13 14 15 16 17 18 19 20 21 22 23 24 6 mg See details 25 5 mg 26 5 mg 27 6 mg 28 5 mg 29 5 mg 30 5 mg 31 6 mg Date Details 10/27 This INR check Date of next INR: 11/04/2023 How to take your warfarin dose To take: 5 mg Take 1 of the 5 mg tablets. To take: 6 mg Take 1 of the 5 mg tablets and 1 of the 1 mg tablets. Description 10/28/2023: INR below range. I spoke to patient with instructions to increase dose of warfarin 6% and retest INR in 1 week(s). Provider notified of 3 subtherapeutic INRs. 10/22/2023: INR below range. I left a voicemail for patient with instructions to increase dose of warfarin 3% and retest INR in 1 week(s). 10/14/2023: INR below range. I spoke to patient with instructions to increase dose of warfarin 17% back up closer to 35mg/wk given long stability on dose prior to recent dose adjustments made when INRwas slightly above range. Cecilia was having ear pain (thought she had an ear infection) and had beentaking some Tylenol. INR is sensitive to Tylenol and has been supra-therapeutic when taking it multiple times a day. Retest INR in 1 week(s). 10/07/2023: INR in range. I left a voicemail for patient with instructions to continue on current maintenance dose of warfarin and retest INR in 1 week(s). Consider balancing out dose next week if still stable. 09/29 INR in range today, spoke with Cecilia, reports that she thought she had an ear infection but was seen for it and was told she did not have an infection, denies any other changes, maintain currentdose, retest 1 week. 09/22 INR still slightly elevated today despite decrease last week, left VM for Cecilia to call clinicwith any changes, I have decreased the maintenance dose an additional 7% from last 7 day total, retest 1 week. 09/15 INR elevated today, left VM for Cecilia to call clinic with any changes, one time 7.4% decrease,retest 1 week. documented in this encounter Plan of Treatment Upcoming Encounters Date Type Department Care Team (Late st Contact Info) Description 11/11/2023 3:00 AM EDT Anti-Coag Telephone Visit [facility] [place] [address] documented as of this encounter Visit Diagnoses Diagnosis Antiphospholipid antibody----- use antiXa level to dose heparin. 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
--- OUTSIDE RECORDS SUMMARY | 2023-11-04 15:07 | XMS_ITS | Encounter Summary ---
[place] [address] Care Team Providers Care Lead Java Programmer Name Role Phone Briana Timmons APRN Primary Care Provider [phone] Encounter Details Date Type Department Care Team (Latest Contact Info) Description 10/14/2023 3:00 AM EDT Anti-Coag Telephone Visit [facility] [place] [address] Shasta Delaney [facility] Antiphospholipid antibody----- use antiXa level to dose [...] this encounter Progress Notes * Shasta Delaney [facility] - 10/14/2023 3:00 AM EDT Images from the original [...] High Risk Changes) Anticoagulation Summary As of 10/14/2023 INR goal: 2.5-3.5 TTR: 58.7% (6 mo) INR used for dosin.4 (10/14/2023) Warfarin maintenance plan: 4 mg (1 mg x 4) every Tue; 5 mg (5 mg x 1) all other days Weekly warfarin total: 34 mg Plan last modified: Shasta Delaney [facility] (10/14/2023) Next INR check: 10/21/2023 Priority: 1 Week Target end date: Indefinite Indications Antiphospholipid antibody----- use antiXa level to dose heparin. 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] Pulmonary embolism unspecified chronicity unspecified pulmonary embolism type unspecified whether acute cor pulmonale present [I26.99] Anticoagulation Episode Summary INR check location: Home Draw Preferred lab: [facility] Send INR reminders to: [facility] Comments: Home Monitor [phone] (M) Anticoagulation Care Providers Provider Role Specialty Phone number Karel Jerry MD Responsible Cardiology [phone] Patient Assessment Service Type: INR Test Result INR Result: Out of Range Clinical Outcomes Negatives: Major bleeding event, Thromboembolic event, Anticoagulation-related hospital admission, Anticoagulation-related ED visit Patient Findings Positives: Change in health (headhache today, no OTC medication used to treat) Negatives: Upcoming Travel, Planning or Currently , Recent Fall, Signs/symptoms of thrombosis, Signs/symptoms of bleeding, Laboratory test error suspected, Change in alcohol use, Change in activity, Upcoming invasive procedure, Emergency department visit, Upcoming dental procedure, Missed doses, Extra doses, Change in medications, Change in diet/appetite, Hospital admission, Bruising, Other complaints Warfarin Therapy Instructions October 2023 Details Sun Mon Tue Wed Yaritza Fri Sat 1 2 3 4 5 6 7 8 9 10 5 mg See details 11 5 mg 12 5 mg 13 5 mg 14 5 mg 15 5 mg 16 4 mg 17 5 mg 18 19 20 21 22 23 24 25 26 27 28 29 30 31 Date Details 10/13 This INR check Date of next INR: 10/21/2023 How to take your warfarin dose To take: 4 mg Take 4 of the 1 mg tablets. To take: 5 mg Take 1 of the 5 mg tablets. Description 10/14/2023: INR below range. I spoke to [...] changes, one time 7.4% decrease,retest 1 week. 09/10/23 INR 3.7 High. Spoke to Cecilia. She has taken Tylenol x 2 days. No other changes noted. No GI Issues. Take 4 mg today ( Decrease of 2.9%) and then resume 5 mg daily. Recheck in 1 week 09/03/2023: INR in range. I left a voicemail for patient with instructions to continue on current maintenance dose of warfarin and retest INR in 1 week(s). 08/26/2023: INR in range. I left a voicemail for patient with instructions to continue on current maintenance dose of warfarin and retest INR in 1 week(s). documented in this encounter Plan of Treatment Upcoming Encounters Date Type Department Care Team (Late st Contact Info) Description 11/11/2023 3:00 AM EDT Anti-Coag Telephone Visit [facility] [place] [address] documented as of this encounter Visit Diagnoses Diagnosis Antiphospholipid antibody----- use antiXa level to dose heparin. 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
--- OUTSIDE RECORDS SUMMARY | 2023-11-04 15:07 | XMS_ITS | Encounter Summary ---
[place] [address] Care Team Providers Care Physician Scribe Name Role Phone Briana Timmons APRN Primary Care Provider [phone] Encounter Details Date Type Department Care Team (Late Contact Info) Description 10/28/2023 Orders Only Internal Medicine at [address] [phone] Shasta Dixon MD [facility] [address] Social History Tobacco Use Types Packs/Day Years [...] 11/11/2023 3:00 AM EDT [place] [phone] documented as of this encounter Procedures Procedure Name Priority Date/Time Associated Diagnosis Comments EXTERNAL INR RESULTS PANEL Routine 10/28/2023 12:16 PM EDT documented in this encounter Results * (ABNORMAL) External INR Results Panel (10/28/2023 12:16 PM EDT) POCT INR 2(L) 2.5 - 3.5 MDINR Comment:mdINR - Inr Result F rom Android Mobile Application 10/28/2023 12:1 6 PM EDT 10/28/2023 12:16 PM EDT Shasta Dixon MD POINT OF CARE TEST ORDERABLES Performing Organization Address City/State/[facility] Co de Phone Number MDINR [address] [phone] documented in this encounter Visit Diagnoses Not on filedocumented in this encounter Care Teams Physician Scribe Relationship Specialty Start Date End Date Briana Timmons, EMERGENCY ROOM PHYSICIAN [address] [place] [address] PCP - General Family Medicine 08/09/21 documented as of this encounter
--- OUTSIDE RECORDS SUMMARY | 2023-11-04 15:07 | XMS_ITS | Encounter Summary ---
Author Organization [facility] Address [address] [place] [address] Care Team Providers Care Rad Tech Name Role Phone Unknown, Provider Primary Care Provider Encounter Details Date Type Department Care Team (Latest Contact Info) Description 05/26/2022 Lab Requisition [facility] Pathology & Laboratory Medicine - [facility] [address] [place] [address] Briana Timmons, ORTHOPHOTOGRAPHY TECHNICIAN [address], [place] [id number] Encounter for general adult medical examination without abnormal findings; Encounter for screening for malignant neoplasm of cervix; Encounter for screening for human papillomavirus (HPV) Social History Tobacco Use Types Packs/Day Years Used Date Smoking Tobacco: Never Assessed Interpersonal Safety Answer Date Record ed Physically Hurt Never 11/06/2019 Verbally Threaten Not on file 11/06/2019 Sex and Gender Information Value Date Recorded Sex Assigned at Not on file Gender Identity Not on file Sexual Orientation Not on file documented as of this encounter Plan of Treatment Not on file documented as of this encounter Procedures Procedure Name Priority Date/Time Associated Diagnosis Comments PAP TEST Today 05/21/2022 14:30 EST Encounter for general adult medical examination without abnormal findings Encounter for screening for malignant neoplasm of cervix Encounter for screening for human papillomavirus (HPV) documented in this encounter Results * PAP TEST (05/21/2022 14:30 EST) Specimens A. Cervix and/or Endocervix , ThinPrep Imaging System with Manual Evaluation 06/06/2022 13:32 EST [facility] Specimen Adequacy Unsatisfactory for evaluation - insufficient numbers of squamous epithelial cells (less than 10% of expected cellularity) possibly due to lubricant. 06/06/2022 13:32 [facility] General Categorization Unsatisfactory 06/06/2022 13:32 [facility] Educational Comments Unsatisfactory - Specimen processed and examined, but unsatisfactory for evaluation of epithelial abnormality. Recommend repeat age-based screening after 2-4 months per ASCCP Guidelines which may be found at www.asccp.org. HPV testing will not be performed due to the potential for false negative results. 06/06/2022 13:32 EST [facility] Attestation . 06/06/2022 13:32 [facility] at [address] Clinical History See below 06/07/19 13:32 [facility] Performing Lab [facility] 06/06/2022 13:32 [facility] Scanned Images 06/06/2022 13:32 [facility] Papanicolaou smear specimen (specimen) CERVIX UTERI STRUCTURE / Unknown 05/21/2022 14:30 EST 05/26/2022 9:58 EST Briana Timmons NP PATHOLOGY ORDERABLES Performing Organization Address City/State/[facility] Co de Phone Number [facility] [address] [place] [address] documented in this encounter Visit Diagnoses Diagnosis Encounter for general adult medical examination without abnormal findings Unspecified general medical examination Encounter for screening for malignant neoplasm of cervix Screening for malignant neoplasm of the cervix Encounter for screening for human papillomavirus (HPV) Special screening examination for human papillomavirus (HPV) documented in this encounter Care Teams Rad Tech Relationship Specialty Start Date End Date Unknown, Provider, PCP - General 01/16/12 documented as of this encounter
--- OUTSIDE RECORDS SUMMARY | 2023-11-04 15:07 | XMS_ITS | Encounter Summary ---
[place] [address] Care Team Providers Care Senior Analytical Chemist Name Role Phone Briana Timmons APRN Primary Care Provider [phone] Encounter Details Date Type Department Care Team (Late Contact Info) Description 09/10/2023 Orders Only Internal Medicine at [address] [phone] Shasta Dixon MD [facility] [place] [address] Social History Tobacco Use Types Packs/Day Years [...] 11/11/2023 3:00 AM EDT [place] [phone] documented as of this encounter Procedures Procedure Name Priority Date/Time Associated Diagnosis Comments EXTERNAL INR RESULTS PANEL Routine 09/10/2023 10:40 AM EDT documented in this encounter Results * (ABNORMAL) External INR Results Panel (09/10/2023 10:40 AM EDT) POCT INR 3.7(H) 2.5 - 3.5 MDINR Comment:mdINR - Inr Result F rom Android Mobile Application 09/10/2023 10:4 0 AM EDT 09/10/2023 10:40 AM EDT Shasta Dixon MD POINT OF CARE TEST ORDERABLES Performing Organization Address City/State/[facility] Co de Phone Number [facility] [address] [phone] documented in this encounter Visit Diagnoses Not on filedocumented in this encounter Care Teams Senior Analytical Chemist Relationship Specialty Start Date End Date Briana Timmons, UTILITY MECHANIC SUPERVISOR [address] [place] [address] PCP - General Family Medicine 08/09/21 documented as of this encounter
--- OUTSIDE RECORDS SUMMARY | 2023-11-04 15:07 | XMS_ITS | Encounter Summary ---
[place] [address] Care Team Providers Care Education Managers Name Role Phone Briana Timmons APRN Primary Care Provider [phone] Encounter Details Date Type Department Care Team (Late Contact Info) Description 09/02/2023 Orders Only Internal Medicine at [address] [phone] Shasta Dixon MD [facility] [place] [address] Social History Tobacco Use Types Packs/Day Years [...] 11/11/2023 3:00 AM EDT [place] [phone] documented as of this encounter Procedures Procedure Name Priority Date/Time Associated Diagnosis Comments EXTERNAL INR RESULTS PANEL Routine 09/02/2023 8:52 PM EDT documented in this encounter Results * External INR Results Panel (09/02/2023 8:52 PM EDT) POCT INR 2.9 2.5 - 3.5 INR Comment:VioletR - Inr Result F rom Android Mobile Application 09/02/2023 8:52 PM EDT 09/02/2023 8:52 PM EDT Shasta Dixon MD POINT OF CARE TEST ORDERABLES Performing Organization Address City/State/[facility] Co de Phone Number [facility] [address] [phone] documented in this encounter Visit Diagnoses Not on filedocumented in this encounter Care Teams Education Managers Relationship Specialty Start Date End Date Briana Timmons [place] [place] [address] PCP - General Family Medicine 08/09/21 documented as of this encounter
--- OUTSIDE RECORDS SUMMARY | 2023-11-04 15:07 | XMS_ITS | Encounter Summary ---
[place] [address] Care Team Providers Care Ticket Printer Name Role Phone Briana Timmons APRN Primary Care Provider [phone] Encounter Details Date Type Department Care Team (Latest Contact Info) Description 11/04/2023 3:00 AM EDT Anti-Coag Telephone Visit [facility] [place] [address] Shasta Delaney [facility] Antiphospholipid antibody----- use antiXa level to dose [...] this encounter Progress Notes * Shasta Delaney [facility] - 11/04/2023 3:00 AM EDT Images from the original [...] High Risk Changes) Anticoagulation Summary As of 11/04/2023 INR goal: 2.5-3.5 TTR: 52.5% (6 mo) INR used for dosin.1 (11/04/2023) Warfarin maintenance plan: 5 mg (5 mg x 1) every Thu, Thu, Thu; 6 mg (5 mg x 1 and 1 mg x 1) all other days Weekly warfarin total: 39 mg Plan last modified: Shasta Delaney [facility] (11/04/2023) Next INR check: 11/11/2023 Priority: 1 Week Target end date: Indefinite Indications Antiphospholipid antibody----- use antiXa level to dose heparin. 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] Pulmonary embolism unspecified chronicity unspecified pulmonary embolism type unspecified whether acute cor pulmonale present [I26.99] Anticoagulation Episode Summary INR check location: Home Draw Preferred lab: [facility] Send INR reminders to: [facility] Comments: Home Monitor [phone] (M) Anticoagulation Care Providers Provider Role Specialty Phone number Karel Jerry MD Responsible Cardiology [phone] Patient Assessment Service Type: INR Test Result [...] 25 26 27 28 29 30 31 6 mg See details Date Details 11/03 This INR check How to take your warfarin dose To take: 6 mg Take 1 of the 5 mg tablets and 1 of the 1 mg tablets. Warfarin Therapy Instructions November 2023 Details Sun Thuu Fri Sat 1 5 mg 2 6 mg 3 6 mg 4 5 mg 5 6 mg 6 5 mg 7 6 mg 8 9 10 11 12 13 14 15 16 17 18 19 20 21 22 23 24 25 26 27 28 29 30 31 Date Details No additional details Date of next INR: 11/11/2023 How to take your warfarin dose To take: 5 mg Take 1 of the 5 mg tablets. To take: 6 mg Take 1 of the 5 mg tablets and 1 of the 1 mg tablets. Description 11/04/2023: INR below range. I spoke to patient with instructions to increase dose of warfarin 5% and retest INR in 1 week(s). 10/28/2023: INR below range. I spoke to [...] 11/11/2023 3:00 AM EDT Anti-Coag Telephone Visit [facility] [place] [address] documented as of this encounter Visit Diagnoses Diagnosis Antiphospholipid antibody----- use antiXa level to dose heparin. Primary hypercoagulable state Aortic valve prosthesis present Heart valve replaced by other means Pulmonary embolism, unspecified chronicity, unspecified pulmonary embolism type, unspecified whether acute cor pulmonale present documented in this encounter Care Teams Ticket Printer Relationship Specialty Start Date End Date Briana Timmons, LABORATORY SAMPLE CARRIER [place] [address] PCP - General Family Medicine 08/09/21 documented as of this encounter
--- OUTSIDE RECORDS SUMMARY | 2023-11-04 15:07 | XMS_ITS | Encounter Summary ---
Author Organization [facility] Address [address] [place] [address] Care Team Providers Care Curriculum Writer Name Role Phone Unknown, Provider Primary Care Provider Encounter Details Date Type Department Care Team (Late st Contact Info) Description 01/26/2021 Lab Requisition [facility] Pathology & Laboratory Medicine - [facility] [address] [place] [address] Outr Resulting Lab, Provider Social History Tobacco Use Types Packs/Day [...] Procedure Name Priority Date/Time Associated Diagnosis Comments OVA/PARASITE EXAM Routine 01/26/2021 18: 15 EDT documented in this encounter Results * OVA/PARASITE EXAM (01/26/2021 18:15 EDT) Parasite No ova and parasites seen. 01/28/2021 14:26 EDT [facility] Feces SPECIMEN FROM RECTUM / Unknown Stool Collect / Unknown 01/26/2021 18:15 EDT 01/27/2021 21:52 EDT Narrative [facility] - 01/28/2021 14:26 EDT (If Cryptosporidium, Cyclospora, or Microsporidium are suspected, specific tests must be requested.) Single negative specimen does not rule out the possibility of a parasitic infection. Provider Outr Resulting Lab MICROBIOLOGY - GENERAL ORDERABLES [facility] [address] [place] [address] documented in this encounter Visit Diagnoses Not on filedocumented in this encounter Care Teams Curriculum Writer Relationship Specialty Start Date End Date Unknown, Provider, PCP - General 01/16/12 documented as of this encounter
--- OUTSIDE RECORDS SUMMARY | 2023-11-04 15:07 | XMS_ITS | Encounter Summary ---
[place] [address] Care Team Providers Care Puppy Trainer Name Role Phone Briana Timmons APRN Primary Care Provider [phone] Encounter Details Date Type Department Care Team (Late Contact Info) Description 09/30/2023 Orders Only Internal Medicine at [address] [phone] Shasta Dixon MD [facility] [place] [address] Social History Tobacco Use Types Packs/Day Years [...] 11/11/2023 3:00 AM EDT [place] [phone] documented as of this encounter Procedures Procedure Name Priority Date/Time Associated Diagnosis Comments EXTERNAL INR RESULTS PANEL Routine 09/30/2023 1:36 PM EDT documented in this encounter Results * External INR Results Panel (09/30/2023 1:36 PM EDT) POCT INR 3.3 2.5 - 3.5 INR Comment:VioletR - Inr Result F rom Android Mobile Application 09/30/2023 1:36 PM EDT 09/30/2023 1:36 PM EDT Shasta Dixon MD POINT OF CARE TEST ORDERABLES Performing Organization Address City/State/[facility] Co de Phone Number [facility] [address] [phone] documented in this encounter Visit Diagnoses Not on filedocumented in this encounter Care Teams Puppy Trainer Relationship Specialty Start Date End Date Briana Timmons APR[place] [place] [address] PCP - General Family Medicine 08/09/21 documented as of this encounter
--- OUTSIDE RECORDS SUMMARY | 2023-11-04 15:07 | XMS_ITS | Encounter Summary ---
Author Organization [facility] Address [address] [place] [address] Care Team Providers Care Pro Shop Attendant Name Role Phone Unknown, Provider Primary Care Provider [phone] Encounter Details Date Type Department Care Team (Late st Contact Info) Description 12/29/2017 Results Only [facility] [phone] Aneta Botello, DO [address] [facility] [place] [address] Social History Tobacco Use Types Packs/Day Years Used Date Smoking Tobacco: Never Assessed Sex and Gender Information Value Date Recorded Sex Assigned at Not on file Gender Identity Not on file Sexual Orientation Not on file documented as of this encounter Plan of Treatment Not on file documented as of this encounter Procedures Procedure Name Priority Date/Time Associated Diagnosis Comments SURGICAL PATHOLOGY Routine 12/29/2017 16 :41 EDT documented in this encounter Results * SURGICAL PATHOLOGY (12/29/2017 16:41 EDT) Pathology Report: SURGICAL PATHOLOGY REPORT Reports generated via electronic interface contain original data; however they are lacking the format of the original report. Caution should be taken when reading/interpret ing unformatted reports. Name: ? CECILIA LOWERY ? Accession #: ? [id number] ? : ? 1970 (Age: 47) ??F ? Collect Date: ? 12/29/2017 ? Location: ? [facility] ? Receive Date: ? 12/29/2017 ? Provider: ANETA BOTELLO DO Copy to: CARTER PETERSON JUNIOR ACCOUNT MANAGER ? Final Pathologic Diagnosis: STOMACH, ANTRUM, BIOPSY: - Mild reactive gastropathy. - Negative for Helicobacter pylori organisms. Document reviewed and electronically signed by: RIVKA MCCORMICK MD Report ??Date: 12/31/2017 15:46 By the signature above, the attending physician certifies that he/she has personally conducted a gross and/or microscopic examination of the described specimens and rendered or confirmed the above diagnosis. Specimen(s) Received: Bx gastric antrum Clinical History: GERD; clinical diagnosis code: K21.9 Gross Description: ? Received in formalin labelled with proper patient identification (initials M, A) and bx gastric antrum are five sánchez-red irregular tissues ranging from 0.2 x 0.2 x 0.2 cm to 0.3 x 0.3 x 0.3 cm. Entirely submitted in 1 and 2. JANET Tillman (ASCP) 12/30/2017 8:13 AM End of Report [facility] 12/29/2017 16:4 1 EDT 12/29/2017 16:41 EDT Aneta Botello DO PATHOLOGY ORDERABLES [facility] [address] [place] [address] documented in this encounter Visit Diagnoses Not on filedocumented in this encounter Care Teams Pro Shop Attendant Relationship Specialty Start Date End Date Unknown, Provider, PCP - General 01/16/12 documented as of this encounter
--- OUTSIDE RECORDS SUMMARY | 2023-11-04 15:07 | XMS_ITS | Encounter Summary ---
Author Organization [facility] Address [address] [place] [address] Care Team Providers Care Slots Manager Name Role Phone Unknown, Provider Primary Care Provider Encounter Details Date Type Department Care Team (Late st Contact Info) Description 01/26/2021 Lab Requisition [facility] Pathology & Laboratory Medicine - [facility] [address] [place] [address] Outr Resulting Lab, Provider Social History Tobacco [...] Procedure Name Priority Date/Time Associated Diagnosis Comments FECAL BACTERIAL PATHOGENS BY PCR Routine 01/26/2021 18:15 EDT documented in this encounter Results * FECAL BACTERIAL PATHOGENS BY PCR (01/26/2021 18:15 EDT) Salmonella PCR Negative Negative 01/28/2021 12:12 EDT [facility] Shigella/Enteroin vasive E. coli Negative Negative 01/28/2021 12:12 EDT [facility] HN LAB CAMPYLOBACTER PCR Negative Negative 01/28/2021 12:12 EDT [facility] Shiga Toxin PCR Negative Negative 12:12 EDT [facility] Feces SPECIMEN FROM RECTUM / Unknown Stool Collect / Unknown 01/26/2021 18:15 EDT 01/27/2021 21:52 EDT Provider Outr Resulting Lab MICROBIOLOGY - GENERAL ORDERABLES [facility] [address] [place] [address] documented in this encounter Visit Diagnoses Not on filedocumented in this encounter Care Teams Slots Manager Relationship Specialty Start Date End Date Unknown, Provider, PCP - General 01/16/12 documented as of this encounter
--- OUTSIDE RECORDS SUMMARY | 2023-11-04 15:07 | XMS_ITS | Encounter Summary ---
[place] [address] Care Team Providers Care Statistical Methods Teacher Name Role Phone Briana Timmons APRN Primary Care Provider [phone] Encounter Details Date Type Department Care Team (Late Contact Info) Description 10/22/2023 Orders Only Internal Medicine at [address] [phone] Shasta Dixon MD [facility] [place] [address] Social History Tobacco Use Types Packs/Day Years [...] 11/11/2023 3:00 AM EDT [place] [phone] documented as of this encounter Procedures Procedure Name Priority Date/Time Associated Diagnosis Comments EXTERNAL INR RESULTS PANEL Routine 10/22/2023 11:03 AM EDT documented in this encounter Results * (ABNORMAL) External INR Results Panel (10/22/2023 11:03 AM EDT) POCT INR 2.1(L) 2.5 - 3.5 MDINR Comment:mdINR - Inr Result F rom Android Mobile Application 10/22/2023 11:0 3 AM EDT 10/22/2023 11:03 AM EDT Shasta Dixon MD POINT OF CARE TEST ORDERABLES Performing Organization Address City/State/[facility] Co de Phone Number [facility] [address] [phone] documented in this encounter Visit Diagnoses Not on filedocumented in this encounter Care Teams Statistical Methods Teacher Relationship Specialty Start Date End Date Briana Timmons, MARINE RAILWAY OPERATOR [address] [place] [address] PCP - General Family Medicine 08/09/21 documented as of this encounter
--- OUTSIDE RECORDS SUMMARY | 2023-11-04 15:07 | XMS_ITS | Encounter Summary ---
[place] [address] Care Team Providers Care Environmental Health Technician Name Role Phone Briana Timmons APRN Primary Care Provider [phone] Encounter Details Date Type Department Care Team (Late Contact Info) Description 09/16/2023 Orders Only Internal Medicine at [address] [phone] Shasta Dixon MD [facility] [place] [address] Social History Tobacco Use Types Packs/Day Years [...] 11/11/2023 3:00 AM EDT Anti-[place] [phone] documented as of this encounter Procedures Procedure Name Priority Date/Time Associated Diagnosis Comments EXTERNAL INR RESULTS PANEL Routine 09/16/2023 1:30 PM EDT documented in this encounter Results * (ABNORMAL) External INR Results Panel (09/16/2023 1:30 PM EDT) POCT INR 3.9(H) 2.5 - 3.5 MDIN[facility] Comment:mdINR - Inr Result F rom Android Mobile Application 09/16/2023 1:30 PM EDT 09/16/2023 1:30 PM EDT Shasta Dixon MD POINT OF CARE TEST ORDERABLES Performing Organization Address City/State/[facility] Co de Phone Number [facility] [address] [phone] documented in this encounter Visit Diagnoses Not on filedocumented in this encounter Care Teams Environmental Health Technician Relationship Specialty Start Date End Date Briana Timmons, IT CONSULTANT [address] [place] [address] PCP - General Family Medicine 08/09/21 documented as of this encounter
--- OUTSIDE RECORDS SUMMARY | 2023-11-04 15:07 | XMS_ITS | Encounter Summary ---
Author Organization [facility] Address [address] [place] [address] Care Team Providers Care Retail Clerk Name Role Phone Unknown, Provider Primary Care Provider Encounter Details Date Type Department Care Team (Latest Contact Info) Description 12/29/2017 13:03 EDT - 12/29/2017 23:59 EDT Hospital Encounter [address] [address] Unknown, Provider, Discharge Disposition: Home or Self Care Social History Tobacco Use Types Packs/Day Years Used Date Smoking Tobacco: Never Assessed Sex and Gender Information Value Date Recorded Sex Assigned at Not on file Gender Identity Not on file Sexual Orientation Not on file documented as of this encounter Discharge Disposition Disposition Code Departure Means Destination Home or Self Prison documented in this encounter Plan of Treatment Not on file documented as of this encounter Visit Diagnoses Not on filedocumented in this encounter Care Teams Retail Clerk Relationship Specialty Start Date End Date Unknown, Provider, PCP - General 01/16/12 documented as of this encounter
--- OUTSIDE RECORDS SUMMARY | 2023-11-04 15:07 | XMS_ITS | Encounter Summary ---
[place] [address] Care Team Providers Care [facility] Program Coordinator Name Role Phone Briana Timmons APRN Primary Care Provider [phone] Encounter Details Date Type Department Care Team (Latest Contact Info) Description 08/19/2023 3:00 AM EDT Anti-Coag Telephone Visit [facility] [place] [address], RN Antiphospholipid antibody----- use antiXa level to dose [...] as of this encounter Progress Notes * Tucker Lane RN - 08/19/2023 3:00 AM EDT Images from the original note were not included. Anticoagulation Therapy Note Anticoagulation Summary As of 08/19/2023 INR goal: 2.5-3.5 TTR: 54.7% (6 mo) INR used for dosin.1 (08/19/2023) Warfarin maintenance plan: 5 mg (5 mg x 1) every day Weekly warfarin total: 35 mg No change documented: Tucker Lane RN Plan last modified: Shasta Delaney [facility] (07/10/2023) Next INR check: 08/26/2023 Priority: 1 Week Target end date: Indefinite Indications Antiphospholipid antibody----- use antiXa level to dose heparin. 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] Pulmonary embolism unspecified chronicity unspecified pulmonary embolism type unspecified whether acute cor pulmonale present [I26.99] Anticoagulation Episode Summary INR check location: Home Draw Preferred lab: [facility] Send INR reminders to: [facility] Comments: Home Monitor [phone] (M) Anticoagulation Care Providers Provider Role Specialty Phone number Karel Jerry MD Responsible Cardiology [phone] Patient Assessment Service Type: INR Test Result INR Result: In Range Warfarin Therapy Instructions August 2023 Details Sun Mon Thu Wed Yaritza Fri Sat 1 2 3 4 5 6 7 8 9 10 11 12 13 14 15 5 mg See details 16 5 mg 17 5 mg 18 5 mg 19 5 mg 20 5 mg 21 5 mg 22 5 mg 23 24 25 26 27 28 29 30 31 Date Details 08/18 This INR check Date of next INR: 08/26/2023 How to take your warfarin dose To take: 5 mg Take 1 of the 5 mg tablets. Description 08/19/2023: INR in range. I left a voicemail for patient with instructions to continue on current maintenance dose of warfarin and retest INR in 1 week(s). 08/12/2023: INR in range. I spoke to patient with instructions to continue on current maintenance dose of warfarin and retest INR in 1 week(s). 08/05/2023: INR in range. I spoke to patient with instructions to continue on current maintenance dose of warfarin and retest INR in 1 week(s). 07/29/2023: INR above range. I spoke to patient with instructions to continue on current maintenancedose of warfarin and retest INR in 1 week(s). 07/22/2023: INR in range. I spoke to patient with instructions to continue on current maintenance dose of warfarin and retest INR in 1 week(s). 07/15/2023: INR in range. I spoke to patient with instructions to continue on current maintenance dose of warfarin and retest INR in 1 week(s). 07/10/2023: INR below range. I spoke to patient with instructions to increase dose of warfarin 7% as a one time dose adjustment tonight and then increase weekly dose 6%. Test INR next week on Thursday. 07/03/2023: INR below range. I spoke to patient with instructions to decrease dose of warfarin 5.7% and retest INR next week on Thursday07/08/23. Weekly dose was reduced given recently supra-therapeutic INR in the setting of ongoing Tylenol use. 07/01/2023: INR above range. I spoke to patient with instructions to hold warfarin today and tomorrow and retest INR on Thursday. Cecilia started taking Tylenol Arthritis 2 tablets BID x 3 days. She wouldlike to continue taking this as it has been helping the swelling in her hands from arthritis. We discussed that she will need a weekly warfarin dose reduction going forward. Denies all sxs of bleeding and understands when to seek medical attention. documented in this encounter Plan of Treatment Upcoming Encounters Date Type Department Care Team (Late st Contact Info) Description 11/11/2023 3:00 AM EDT Anti-Coag Telephone Visit [facility] [place] [address] documented as of this encounter Visit Diagnoses Diagnosis Antiphospholipid antibody----- use antiXa level to dose heparin. Primary hypercoagulable state Aortic valve prosthesis present Heart valve replaced by other means Pulmonary embolism, unspecified chronicity, unspecified pulmonary embolism type, unspecified whether acute cor pulmonale present documented in this encounter Care Teams [facility] Coordinator Relationship Specialty Start Date End Date Briana Timmons [place] [address] PCP - General Family Medicine 08/09/21 documented as of this encounter
--- OUTSIDE RECORDS SUMMARY | 2023-11-04 15:07 | XMS_ITS | Clinical Summary ---
Author Organization [facility] [place] [address] Care Team Providers Care Mobile Solutions Architect Name Role Phone Briana Timmons APRN Primary Care Provider Allergies Active Allergy Reactions Criticality Noted Date Comments Tramadol 03/22/2012 Upset stomach Medications Medication Sig Dispensed Refills Start Date End Date Status multivitamin with minerals tablet 1 Tablet(s), PO, Once daily 06/05/2010 Active acetaminophen (TYLENOL) 500 mg Tablet Take 2 tablets by mouth every 6 hours as needed for Pain. 30 tablet 1 05/30/2017 Active aspirin 81 mg Tablet, Chewable Take 81 mg by mouth daily. 30 tablet 3 05/31/2017 Active pantoprazole (PROTONIX) 40 mg Tablet, Delayed Release (E.C.) Take 40 mg by mouth 2 times daily. Active FLUoxetine (PROzac) 40 mg Capsule Take 40 mg by mouth daily. Active levothyroxine (Synthroid) 25 mcg Tablet Take 1 tablet by mouth daily. Dosage Unknown 90 tablet 03/20/2020 Active atorvastatin (Lipitor) 40 mg Tablet Take 1 tablet by mouth every evening. 90 tablet 03/21/2020 Active metoprolol succinate XL (Toprol-XL) 50 mg Tablet Sustained Release 24 hr Take 1 tablet by mouth daily. 90 tablet 03/21/2020 Active enoxaparin (Lovenox) 150 mg/mL SyringeIndications :Antiphospholipid antibody syndrome,Cerebral infarction, unspecified mechanism,Pulmonar y embolism, unspecified chronicity, unspecified pulmonary embolism type, unspecified whether acute cor pulmonale present,Aortic valve prosthesis present Inject 0.9mL subcutaneously into the abdomen once a day until INR is in therapeutic range 1 mL 5 12/13/2020 Active diclofenac (Voltaren) 1 % GelIndications:Ludivina n in both knees, unspecified chronicity Apply 2 g topically 2 times daily. 100 g 11 04/08/2022 Active Syringe with Needle, Safety 1 mL 27 gauge x 1/2 SyringeIndications :Systemic lupus erythematosus with other organ involvement, unspecified SLE type 1 Syringe by [facility].(Non-Drug; Combo Route) route once a week. Use weekly to inject methotrexate subcutaneously. 15 each 3 05/19/2022 Active warfarin (Coumadin) 1 mg tablet Variable Dosing - take 1 to 2 tablets by mouth every evening as directed by the Anticoagulation Clinic 60 tablet 2 08/26/2022 Active benzonatate (Tessalon) 100 mg capsuleIndications :Subacute cough Take 1 capsule by mouth 3 times daily as needed for Cough. 30 tablet 12/24/2022 Active folic acid (Vitamin B9) 1 mg tabletIndications: Systemic lupus erythematosus with other organ involvement, unspecified SLE type Take 1 tablet by mouth daily. 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 50 each 1 06/18/2023 Active metHOTREXate, PF, 25 mg/mL SolutionIndication s:Systemic lupus erythematosus with other organ involvement, unspecified SLE type INJECT 0.4MLS UNDER THE SKIN ONCE WEEKLY 12 mL 3 06/19/2023 Active BD Insulin Syringe Ultra-Fine 1 mL 30 gauge x 1/2 Syringe USE ONCE WEEKLY WITH METHOTREXATE INJECTIONS EVERY 7 DAYS 50 each 1 09/10/2023 Active hydroxychloroquine (Plaquenil) 200 mg tabletIndications: Systemic lupus erythematosus, unspecified SLE type, unspecified organ involvement status Take 1 tablet by mouth 2 times daily. 180 tablet 3 09/10/2023 Active leucovorin (Wellcovorin) 5 mg tabletIndications: Alopecia,High risk medication use TAKE ONE TABLET BY MOUTH ONCE WEEKLY; TAKE 12 HOURS AFTER WEEKLY METHOTREXATE 12 tablet 3 10/14/2023 Active Active Problems Problem Noted Date Diagnosed Date Avascular necrosis 12/25/2022 Pulmonary embolism, unspecif ied chronicity, unspecified pulmonary embolism type, unspecified whether acute cor pulmonale present 02/19/2021 Aortic valve prosthesis present 03/20/2020 Pulmonary embolism 03/18/2020 Gross hematuria--- while on heparin 05/23/2017 Overview (05/25/2017): ?? May 2017: seen by urology. They plan to do CT urogram and office cystoscopy when she recovers from cardiac surgery [address] Alegre with severe AI, SLE, and APLS admitted for conversion to heparin prior to AVR. Course c/b gross hematuria, CHARLES, cp, anxiety. 05/17/2017 Overview (05/21/2017): Severe AI 2+ -->4+ Widened pulse pressure Dilated LV ABRAHAN/ESD 6.7/ 5.3 cm EF=55% New dyspnea R/L cardiac cath 05/20/17- Normal coronary arteries Hemodynamics: Syst Diast EDP a v m RA 10 5 4 RV 22 4 PA 16 4 10 PCW 7 5 3 ? Ao 99/31 mmHg Hemodynamic Profile: Profile 1 CO 4.55 CI 2.57 Chest pain-- normal cors by cath in 2004 and 201 2 04/01/2012 Overview (04/01/2012): Cardiac catheterization 04/01/12: RAP-13 PAP-30/17/23, PCWP-13, CO/CI-4.12/2.23; LVEF 60% infero-apical akinesis, inferior hypokinesis, normal R dominant coronary arteries. Near equalization of diastolic R&Lp ressures- cannot rule out mild constrictive pericardial physiology. Cardiac catheterization 07/16/04: RAP-1 PAP-18//10, PCWP- 2, CO/CI-4.13/2.40; LVEF 33% globa lhyopokinesis, christen coronary arteries Osteoporosis 04/01/2012 Overview (04/01/2012): Prior treatment for osteoporosis while on prednisone with Actonel and calcium. DEXA 2001, spine -1.0, hip -0.6. Actonel DC'd 10/2008 H/O total knee replacement 04/01/2012 Overview (04/01/2012): Bilateral Cerebral infarction---at age 21 03/22/2012 Overview (03/22/2012): Age 21 JAN on CPAP 03/22/2012 Migraine 03/22/2012 Hyperlipemia 03/22/2012 Systemic lupus erythematosus 11/27/2010 Overview (04/01/2012): On plaquinil since Systemic lupus erythematosus with discoid rash, arthritis, oral and nasal ulcers, pleuro pericarditis, Raynaud's phenomena treated with cyclophosamide, steroids and rituximab. rituxan 05/14 with CD 19 36 in 12/12; rituxan 04/14/08 and 05/01/08; 04/15 Antiphospholipid antibody--- -- use antiXa level to dose heparin. 11/27/2010 Overview (05/25/2017): ?? On chronic coumadin ?? By hx, has required Lovenox bridge for procedures ?? History transient ischemic attacks, CVA, miscarriages, migraine headaches, and thrombocytopenia, ?? Seen by Dr. Hills in Apr 2017. See notes. ?? ACT 175 = anti Xa of 0.38 drawn at the same time Dilated cardiomyopathy--- noted in 2004, improve d 10/21/2010 Overview (05/18/2017): Dx; 2003-, EF = 30%, ?due to SLE, ?CHF/CP reported after flu-like illness 2003 Echocardiography 06/23/04: LVEF 35%, inferior akinesis, global hypokinesis, +2 MR, Echocardiography 06/26/04: LVEF 40%, global hypokinesis, nl RV, +2 AR, +2 MR Echocardiography 07/03/04: LVEF 45%, global hypokinesis, +2 AR, Echocardiography 01/28/05: LVEF 65%, inf hypokinesis, +1 AR, Echocardiography 06/13/05: LVEF 60%, nl RV, ? PFO TASHA 07/08/05: +1-2 AR, +1 MR, no PFO or ASD, LVEF 60%, no RWMA Cardiac catheterization 07/16/04: RAP-1 PAP-/08/13, PCWP- 2, CO/CI-4.13/2.40; LVEF 33% globa lhyopokinesis, normal coronary arteries, nl endomyocardial biopsy Echocardiography 10/13/06: LVEF 60%, nl RV, +1 AR, Echocardiography 10/28/07: LVEF 65%, no RWMA, nl RV, Echocardiography 10/30/08: LVEF 65%, no RWMA, nl RV, +1 AR, PASP 24 mmHg Echocardiography 03/15/12: LVEF 60-65%, +2 AR, nl LV/RV, LVEF 63% inf-apical akinesis, inferior hypokinesis at cath 04/01/12: Recovered LVEF Hypertension 10/21/2010 Depression and anxiety Resolved Problems Problem Noted Date Diagnosed Date Resolved Date Human parvovirus infection-resolved 04/06/2003 03/25/2012 Encounters Date Type Department Care Team Description 11/04/2023 3:00 AM EDT Anti-Coag Telephone Visit [facility] [place] [phone] Shasta Delaney RP Antiphospholipid antibody----- use antiXa level to dose heparin. ; Aortic valve prosthesis present; Pulmonary embolism, unspecified chronicity, unspecified pulmonary embolism type, unspecified whether acute cor pulmonale present 11/04/2023 Orders Only Internal Medicine at [facility] [address] [place] [phone] Shasta Dixon MD 10/28/2023 3:00 AM EDT Anti-Coag Telephone Visit [facility] [place] [phone] Shasta Delaney RP Antiphospholipid antibody----- use antiXa level to dose heparin. ; Aortic valve prosthesis present; Pulmonary embolism, unspecified chronicity, unspecified pulmonary embolism type, unspecified whether acute cor pulmonale present 10/28/2023 Orders Only Internal Medicine at [place] [phone] Shasta Dixon MD 10/22/2023 3:00 AM EDT Anti-Coag Telephone Visit [place] [phone] [facility] Antiphospholipid antibody----- use antiXa level to dose heparin. ; Aortic valve prosthesis present; Pulmonary embolism, unspecified chronicity, unspecified pulmonary embolism type, unspecified whether acute cor pulmonale present 10/22/2023 Orders Only Internal Medicine at [address] [phone] Shasta Dixon MD 10/14/2023 3:00 AM EDT Anti-Coag Telephone Visit [place] [phone] Shasta Delaney [facility] Antiphospholipid antibody----- use antiXa level to dose heparin. ; Aortic valve prosthesis present; Pulmonary embolism, unspecified chronicity, unspecified pulmonary embolism type, unspecified whether acute cor pulmonale present 10/14/2023 Refill Rheumatology at [place] [phone] Brad Baugh MD Alopecia; High risk medication use 10/14/2023 Orders Only Internal Medicine at [address] [phone] Shasta Dixon MD 10/07/2023 3:00 AM EDT [place] [phone] RN Antiphospholipid antibody----- use antiXa level to dose heparin. ; Aortic valve prosthesis present; Pulmonary embolism, unspecified chronicity, unspecified pulmonary embolism type, unspecified whether acute cor pulmonale present 10/07/2023 Orders Only Internal Medicine at [facility] [address] [place] [phone] Shasta Dixon MD 09/30/2023 3:00 AM EDT Anti-Coag Telephone Visit [facility] [place] [phone] RN Antiphospholipid antibody----- use antiXa level to dose heparin. ; Aortic valve prosthesis present; Pulmonary embolism, unspecified chronicity, unspecified pulmonary embolism type, unspecified whether acute cor pulmonale present 09/30/2023 Orders Only Internal Medicine at [facility] [address] [place] [address] Shasta Dixon MD 09/23/2023 3:00 AM EDT [place] [phone] RN Antiphospholipid antibody----- use antiXa level to dose heparin. ; Aortic valve prosthesis present; Pulmonary embolism, unspecified chronicity, unspecified pulmonary embolism type, unspecified whether acute cor pulmonale present 09/23/2023 Orders Only Internal Medicine at [facility] [address] [place] [address] Shasta Dixon MD 09/16/2023 3:00 AM EDT [place] [phone] RN Antiphospholipid antibody----- use antiXa level to dose heparin. ; Aortic valve prosthesis present; Pulmonary embolism, unspecified chronicity, unspecified pulmonary embolism type, unspecified whether acute cor pulmonale present 09/16/2023 Orders Only Internal Medicine at [facility] [address] [place] [address] Shasta Dixon MD 09/10/2023 3:00 AM EDT [place] [address] Kelli Hoffman RN Antiphospholipid antibody----- use antiXa level to dose heparin. ; Aortic valve prosthesis present; Pulmonary embolism, unspecified chronicity, unspecified pulmonary embolism type, unspecified whether acute cor pulmonale present 09/10/2023 Orders Only Internal Medicine at [facility] [address] [place] [address] Shasta Dixon MD 09/09/2023 Refill Rheumatology at [place] [phone] Brad Baugh MD Systemic lupus erythematosus, unspecified SLE type, unspecified organ involvement status 09/07/2023 [place] [phone] Brad Baugh MD 09/03/2023 3:00 AM EDT Anti-Coag Telephone Visit [facility] [place] [phone] RN Antiphospholipid antibody----- use antiXa level to dose heparin. ; Aortic valve prosthesis present; Pulmonary embolism, unspecified chronicity, unspecified pulmonary embolism type, unspecified whether acute cor pulmonale present 09/02/2023 Orders Only Internal Medicine at [facility] [address] [place] [phone] Shasta Dixon MD 08/26/2023 3:00 AM EDT [place] [phone] [facility] Antiphospholipid antibody----- use antiXa level to dose heparin. ; Aortic valve prosthesis present; Pulmonary embolism, unspecified chronicity, unspecified pulmonary embolism type, unspecified whether acute cor pulmonale present 08/26/2023 Orders Only Internal Medicine at [facility] [address] [place] [phone] Shasta Dixon MD 08/19/2023 3:00 AM EDT [facility]ag [facility] [place] [phone] RN Antiphospholipid antibody----- use antiXa level to dose heparin. ; Aortic valve prosthesis present; Pulmonary embolism, unspecified chronicity, unspecified pulmonary embolism type, unspecified whether acute cor pulmonale present 08/19/2023 Orders Only Internal Medicine at [facility] [address] [place] [phone] Shasta Dixon MD 08/12/2023 3:00 AM EDT Anti-Coag Telephone Visit [facility] [place] [phone] RN Antiphospholipid antibody----- use antiXa level to dose heparin. ; Aortic valve prosthesis present; Pulmonary embolism, unspecified chronicity, unspecified pulmonary embolism type, unspecified whether acute cor pulmonale present 08/12/2023 Orders Only Internal Medicine at [facility] [address] [place] [phone] Shasta Dixon MD 08/05/2023 3:00 AM EDT [place] [phone] Antiphospholipid antibody----- use antiXa level to dose heparin. ; Aortic valve prosthesis present; Pulmonary embolism, unspecified chronicity, unspecified pulmonary embolism type, unspecified whether acute cor pulmonale present 08/05/2023 Orders Only Internal Medicine at [facility] [address] [place] [phone] Shasta Dixon MD 08/04/2023 Orders Only Internal Medicine at [facility] [address] [place] [phone] Shasta Dixon MD from Last 3 Months Immunizations Name Administration Dates Next Due DTaP 01/14/2012 Influenza Trivalent w/Preservative 01/03/2013, Influenza Vaccine, Whole 03/05/2010 Tdap 03/05/2010 Family History Medical History Relation Comments Coronary Artery Disease Father Biologic al father Relation Status Comments Father Social History Tobacco Use Types Packs/Day Years Used Date Smoking Tobacco: Former Cigarettes Q uit: 10/22/2007 Smokeless Tobacco: Never Tobacco Cessation:Counseling Given: Not Answered Alcohol Use Standard Drinks/Week Comments No 0 (1 standard drink = 0.6 oz pur e alcohol) Sex and Gender Information Value Date Recorded Sex Assigned at Female 05/01/2021 10:41 AM EST Gender Identity Female 05/01/2021 10:41 AM EST Sexual Orientation Straight 05/01/2021 10 :41 AM EST Last Filed Vital Signs Vital Sign Reading Time Taken Comments Blood Pressure 97/57 12/24/2022 12:42 PM EDT Pulse 85 12/24/2022 12:42 PM EDT Temperature 37.1 ??C (98.7 ??F) 12/24/2022 12:42 PM E DT Respiratory Rate 18 12/24/2022 12:42 PM EDT Oxygen Saturation 99% 12/24/2022 12:42 PM EDT Inhaled Oxygen Concentration - - Weight 91 kg (200 lb 9.6 oz) 12/24/2022 12:42 PM EDT Height 160 cm (5' 3) 12/24/2022 12:42 PM EDT Body Mass Index 35.53 12/24/2022 12:42 PM EDT Plan of Treatment Upcoming Encounters Date Type Department Care Team (Late st Contact Info) Description 11/11/2023 3:00 AM EDT [place] [phone] Health Maintenance Due Date Last Done Comments CT Colonography 1972 Colonoscopy 1972 Colorectal Cancer Screening 1972 FIT DNA 1972 FIT 1972 Sigmoidoscopy (10 year) with FIT yearly 1972 Sigmoidoscopy 1972 Pneumococcal Vaccine: At-Ris k 5-64yrs (1 of 2 - PCV) 01/03/1978 Hepatitis B vaccine (0-59 yr s) (1) 01/03/1991 Breast Cancer Share Decision Needed 2012 Breast Cancer screening 2012 PAP Smear 03/05/2013 03/05/2010 Zoster vaccine (1 of 2) 01/03/2022 Tetanus vaccine 01/13/2022 01/14/2012, 03/05/2010 Covid-19 Vaccine (1 - 2022-2 4 season) 2022 Influenza (Flu) vaccine (1 o f 1 - Influenza standard series) 12/06/2023 01/03/2013, 01/07/2012, 03/05/2010 Diabetes Screening (HgbA1C o r Glucose) 09/26/2024 09/26/2021, 03/21/2020, 03/20/2020, Additional history exists Tdap adult Completed 03/05/2010 HIV screen Completed 10/19/2018 Lipid Screening Discontinued 03/21/2020, 05/07, 05/18/2017 Hepatitis C Screening Completed 09/26/2021, 019 Medical Devices Implanted Type Area Research Associate Molecular Biology Device Identifier Shelf Expiration Date Model / Serial / Lot Valve,Aor,Hmd ynmc,Rgt,Flx, 27mm ([id number]) ([employer]ore[employer]) - [id number] Implanted:Qty : 1 on 05/25/2017 by Kuldeep Conner MD at [facility] IMPLANTS N/A: Heart DO NOT USE [employer] - [id number] 09/17/2020 [id number] / / [id number] Cable,Blnt,Ss ,38in ([id number]) - [id number] Implanted:Qty : 4 on 05/25/2017 by Kuldeep Conner MD at [facility] IMPLANTS N/A: Chest [employer] - [id number] 01/15/2022 [id number] / / [id number] Procedures Procedure Name Priority Date/Time Associated Diagnosis Comments EXTERNAL INR RESULTS PANEL Routine 11/04/2023 11:30 AM EDT LAB SCAN 11/04/2023 12:00 AM EDT EXTERNAL INR RESULTS PANEL Routine 10/28/2023 12:16 PM EDT LAB SCAN 10/28/2023 12:00 AM EDT EXTERNAL INR RESULTS PANEL Routine 10/22/2023 11:03 AM EDT LAB SCAN 10/22/2023 12:00 AM EDT EXTERNAL INR RESULTS PANEL Routine 10/14/2023 11:13 AM EDT EXTERNAL INR RESULTS PANEL Routine 10/07/2023 10:58 AM EDT EXTERNAL INR RESULTS PANEL Routine 09/30/2023 1:36 PM EDT EXTERNAL INR RESULTS PANEL Routine 09/23/2023 12:32 PM EDT LAB SCAN 09/23/2023 12:00 AM EDT EXTERNAL INR RESULTS PANEL Routine 09/16/2023 1:30 PM EDT LAB SCAN 09/16/2023 12:00 AM EDT EXTERNAL INR RESULTS PANEL Routine 09/10/2023 10:40 AM EDT EXTERNAL INR RESULTS PANEL Routine 09/02/2023 8:52 PM EDT EXTERNAL INR RESULTS PANEL Routine 08/26/2023 12:44 PM EDT LAB SCAN 08/26/2023 12:00 AM EDT EXTERNAL INR RESULTS PANEL Routine 08/19/2023 12:18 PM EDT EXTERNAL INR RESULTS PANEL Routine 08/12/2023 10:29 AM EDT LAB SCAN 08/12/2023 12:00 AM EDT EXTERNAL INR RESULTS PANEL Routine 08/05/2023 10:57 AM EDT LAB SCAN 08/05/2023 12:00 AM EDT EXTERNAL INR RESULTS PANEL Routine 08/04/2023 10:56 AM EDT HC HEPATITIS C ANTIBODY Routine 09/26/2021 2:42 PM EDT High risk medication use COMPREHENSIVE METABOLIC PANEL (NON-FASTING) Routine 09/26/2021 2:42 PM EDT Systemic lupus erythematosus with other organ involvement, unspecified SLE type LIPID PANEL (REFLEX DIRECT LDL) Routine 03/21/2020 3:43 AM EST HIV SCREEN, 4TH GENERATION ([facility]/CGP/APD/NLH) Routine 10/19/2018 3:52 PM EDT Systemic lupus erythematosus, unspecified SLE type, unspecified organ involvement status Antiphospholipid antibody syndrome SENIOR SECURITY ENGINEER CYTOLOGY FINAL REPORT Routine 03/05/2010 4:57 PM EST from Last 3 Months or Most Recently Relevant to Health Maintenance Results * (ABNORMAL) External INR Results Panel (11/04/2023 11:30 AM EDT) Only the most recent of15 resultswithin the time period is included. POCT INR 2.1(L) 2.5 - 3.5 [facility] Comment:INR - Inr Result F rom Android Mobile Application 11/04/2023 11:3 0 AM EDT 11/04/2023 11:30 AM EDT Shasta Dixon MD POINT OF CARE TEST ORDERABLES Performing Organization Address City/State/[facility] Co de Phone Number [facility] [address] [phone] * Scan Doc: Lab (11/04/2023 12:00 AM EDT) Only the most recent of8 resultswithin the time period is included. Narrative 11/04/2023 12:00 AM EDT Ordered by an unspecified provider. Scanning Provider MEDIA MGR SCAN EXT O RDR/RSLT * Hepatitis C Antibody (09/26/2021 2:42 PM EDT) Hepatitis C Ab Negative Negative [facility] Blood 09/26/2021 2:42 PM EDT 09/26/2021 2:54 PM EDT Narrative Resulting Agency Comment Spec In Lab Brad Baugh MD IMMUNOLOGY ORDERA BLES [facility] [place] [address] * (ABNORMAL) Comprehensive metabolic panel (non-fasting) (09/26/2021 2:42 PM EDT) Pathologist [facility] Glucose Lvl 93 65 - 199 mg/dL [facility] Comment:Diabetes: >=200 mg/d L plus symptoms BUN 15 8 - 18 mg/dL [facility] Creatinine 0.80 0.70 - 1.20 mg/dL [facility] Sodium 140 135 - 145 mmol/L [facility] Potassium 4.0 3.5 - 5.0 mmol/L [facility] Comment: Please note: ??Patients with WBC >100,000 may have falsely elevated Potassium levels. ??For accurate Potassium quantification in these patients send serum separator tube (gold top) for subsequent determinations. ??Contact the Clinical Chemistry Laboratory if there are any questions. Chloride 103 98 - 107 mmol/L [facility] CO2 25 22 - 31 mmol/L [facility] Anion Gap 12 5 - 15 mmol/L [facility] Calcium 9.2 8.5 - 10.5 mg/dL [facility] Total Protein 7.3 6.1 - 8.0 g/dL [facility] Albumin 4.3 3.2 - 5.2 g/dL [facility] AST 23 0 - 30 unit/L [facility] ALT 21 0 - 30 unit/L [facility] Alk Phos 109(H) 35 - 105 unit/L [facility] Total Bilirubin 0.4 0.2 - 1.3 mg/dL [facility] Estimated GFR 90 >=60 mL/min/1. 73 m?? [facility] Comment: This patient's estimated GFR was calculated using the 2020 CKD-EPI equation. The estimated GFR can vary from the measured GFR by up to 30% in the absence of rapidly changing kidney function. Assessment of the estimated GFR is not appropriate when creatinine concentrations are rapidly changing. For clinical situations in which a more precise estimate of GFR is necessary, consider alternative methods of GFR estimation such as a 24-hour urine creatinine clearance. Assignment of CKD stage 1-5 for patients with an eGFR near the transition point between stages may be based on clinical assessment of muscle mass and symptoms in addition to eGFR. Blood 09/26/2021 2:42 PM EDT 09/26/2021 2:54 PM EDT Narrative Resulting Agency Comment Spec In Lab Brad Baugh MD CHEMISTRY ORDERAB LES [facility] [place] [address] * Lipid Panel (Reflex Direct LDL) (03/21/2020 3:43 AM EST) Chol, Total 236 mg/dL [facility] Comment: Lower Risk: <200 mg/dL Average Risk: 200-239 mg/dL Higher Risk: >tw=389 mg/dL Triglycerides 197 mg/dL [facility] Comment: Average Risk/Lower Risk: <150 mg/dL Borderline High Risk: 150-199 mg/dL High Risk: 200-499 mg/dL Very High Risk: >zw=471 mg/dL HDL 49 mg/dL [facility] Comment: Males: ?? Higher Risk: <40 mg/dL Females: ?? HIgher Risk: <50 mg/dL LDL Cholesterol 148 mg/dL [facility] Comment: Lowest Risk: <100 mg/dL Lower Risk: 100-129 mg/dL Borderline High Risk: 130-159 mg/dL High Risk: 160-189 mg/dL Very High Risk: >si=352 mg/dL Chol/HDL Ratio 4.8 ratio [facility] Lipid Interpretation See Note [facility] Comment: Lipid management should be guided by a patient? s ASCVD risk, goals and preferences. ACC/AHA Guidelines recommend high intensity statin if clinical ASCVD or LDL greater than or equal to 190 mg/dL. [email or web address] Adults aged 40-75 with LDL 70-189 mg/dL should have their 10 year ASCVD risk estimated with the ACC/AHA ASCVD risk operational review sergeant http://tools.acc.org/CVTOG-Twpo-Bkrnimdan/ Statin should be discussed if risk greater than or equal to 7.5% in non-diabetics. With diabetes, moderate intensity statin is recommended if risk less than 7.5%, high intensity if risk greater than or equal to 7.5%. Annual lipid monitoring on statins is not necessary. Evaluate secondary causes of Triglycerides greater than 500 mg/dL or LDL greater than 190 mg/dL: See table 6 of ACC/AHA Guideline. Lifestyle modification is a critical component of ASCVD risk reduction. Blood specimen (specimen) Venous Draw / Unknown 03/21/2020 3:43 AM EST 03/21/2020 3:55 AM EST Narrative Resulting Agency Comment Spec In Lab Deniz Root Jr., MD CHEMISTRY ORDER ADRIANA [facility] [place] [address] * HIV Screen, 4th Generation (Leb/CGP/APD) (10/19/2018 3:52 PM EDT) HIV-1/2 Ab and Ag Negative Negative [facility] Comment: This 4th Generation HIV test screens for the presence of the HIV-1 p24 antigen as well as antibodies reactive against HIV-1 and HIV-2. A negative screen does not rule out an acute HIV infection. If acute HIV infection is suspected, testing should be repeated in 2 - 3 weeks or HIV nucleic acid testing performed. Blood specimen (specimen) 10/19/2018 3:52 PM EDT 10/19/2018 4:03 PM EDT Narrative Resulting Agency Comment Spec In Lab Kalli D Jesus DO IMMUNOLOGY ORDERAB LES KELLI [facility] [address] * PATHOLOGY SENIOR SECURITY ENGINEER CYTOLOGY FINAL REPORT (03/05/2010 4:57 PM EST) Commercial Fisherman Cytology Final Report ? [facility] ? Provider: ?? NOHELIA PUENTES Pt. Name: ?? NOAH DUMONT ? Acc #: ?[id number] ?Pt. ? Col Date: ?? 03/05/2010 ?/Sex: ?1970,(40 years),Female ? Rec Date: ?? 03/05/2010 ?LOC: ?3M ? CYTOPATHOLOGY: ??SENIOR SECURITY ENGINEER ? ---Adequacy--- ? Specimen submitted is satisfactory. ? Endocervical component present. ? ---Cytopathologic Diagnosis--- ?NORMAL ? Negative for Intraepithelial Lesion or Malignancy (NILM). ? 03/11/10 ?? Screened by: ??SLA ? 03/11/10 ?? Verified by: ??JOEY Sanchez(ASCP), Melissa Paula - ? [place] ? ---Comment--- ? Predominance of coccobacilli consistent with shift in vaginal paramjit. ? ---Clinical Information--- ? Specimen Source: ?Cervical Endocervical LBP ? LMP: ?LMP unknown - post endometrial ablation ? / ?: ?? No ? Hysterectomy?: ?No ? Clinical Data, Significant Therapy and Clinical Impression: ?Routine Pap Smear ? HPV Option: ?If ASCUS, please perform reflex High Risk HPV Testing. ? Preparation: ?Hologic Vial ? Note: ? The Pap test is a screening test for cervical cancer with an inherent ? false-negative rate dependent upon several variables. ??For further ? information please contact the [facility]. ? Reference: ??Mago CS. ??Auto Carrier Driver of Pap Smear Results. ??In: ? Jose Maria BS, Elie HH, ed. ??The Pap Smear. ??[place]: ??Conrad 2002: ? 71-77. YVETTE VARELA 03/05/2010 4:57 PM EST Nohelia Puentes MD PATHOLOGY/CYTOLOGY ORDERABLES YVETTE VARELA from Last 3 Months or Most Recently Relevant to Health Maintenance Advance Directives * Attempt Cardiopulmonary Resuscitation - Inpatient (Latest Code Status on File) Date Activated Date Inactivated Comments 03/18/2020 9:09 PM 03/21/2020 6:31 PM Question Answer Comments Code Status decision made by: Patient * Attempt Cardiopulmonary Resuscitation - Inpatient Date Activated Date Inactivated Comments 03/18/2020 9:07 PM 03/18/2020 9:09 PM Question Answer Comments Code Status decision made by: Patient * Full Code Date Activated Date Inactivated Comments 05/27/2017 12:37 PM 05/30/2017 4:44 PM Question Answer Comments Does patient have capacity to make decision: Yes * Full Code Date Activated Date Inactivated Comments 05/25/2017 2:56 PM 05/27/2017 12:37 PM Question Answer Comments Does patient have capacity to make decision: Yes * Full Code Date Activated Date Inactivated Comments 05/25/2017 8:10 AM 05/25/2017 2:56 PM Question Answer Comments Does patient have capacity to make decision: Yes Care Teams Mobile Solutions Architect Relationship Specialty Start Date End Date Briana Timmons, SUELLEN [facility] [place] [address] PCP - General Family Medicine 08/09/21
--- OUTSIDE RECORDS SUMMARY | 2023-11-04 15:07 | XMS_ITS | Encounter Summary ---
[place] [address] Care Team Providers Care Metal Hanger Name Role Phone Briana Timmons APRN Primary Care Provider [phone] Encounter Details Date Type Department Care Team (Late Contact Info) Description 09/23/2023 Orders Only Internal Medicine at [address] [phone] Shasta Dixon MD [facility] [place] [address] Social History Tobacco Use Types Packs/Day Years [...] 11/11/2023 3:00 AM EDT [place] [phone] documented as of this encounter Procedures Procedure Name Priority Date/Time Associated Diagnosis Comments EXTERNAL INR RESULTS PANEL Routine 09/23/2023 12:32 PM EDT documented in this encounter Results * (ABNORMAL) External INR Results Panel (09/23/2023 12:32 PM EDT) POCT INR 3.6(H) 2.5 - 3.5 MDINR Comment:mdINR - Inr Result F rom Android Mobile Application 09/23/2023 12:3 2 PM EDT 09/23/2023 12:32 PM EDT Shasta Dixon MD POINT OF CARE TEST ORDERABLES Performing Organization Address City/State/[facility] Co de Phone Number MDINR [address] [phone] documented in this encounter Visit Diagnoses Not on filedocumented in this encounter Care Teams Metal Hanger Relationship Specialty Start Date End Date Briana Timmons, BAG FILLER [address] [place] [address] PCP - General Family Medicine 08/09/21 documented as of this encounter
--- OUTSIDE RECORDS SUMMARY | 2023-11-04 15:07 | XMS_ITS | Encounter Summary ---
[place] [address] Care Team Providers Care Hairspring Assembler Name Role Phone Briana Timmons APRN Primary Care Provider [phone] Encounter Details Date Type Department Care Team (Latest Contact Info) Description 09/23/2023 3:00 AM EDT Anti-Coag Telephone Visit [facility] [place] [place] [address], RN Antiphospholipid antibody----- [...] Progress Notes * Tucker Lane RN - 09/23/2023 3:00 AM EDT Images from the original note were not included. Anticoagulation Therapy Telephone Note: 09/06/2023 Anticoag Monitoring Prescreening Questionnaire Missed/extra doses of [...] High Risk Changes) Anticoagulation Summary As of 09/23/2023 INR goal: 2.5-3.5 TTR: 52.4% (6 mo) INR used for dosin.6 (09/23/2023) Warfarin maintenance plan: 2.5 mg (5 mg x 0.5) every Thu, Thu; 4 mg (1 mg x 4) every Yaritza; 5 mg (5 mg x 1) all other days Weekly warfarin total: 29 mg Plan last modified: Tucker Lane RN (09/23/2023) Next INR check: 09/30/2023 Priority: 1 Week Target end date: Indefinite Indications Antiphospholipid antibody----- use antiXa level to dose heparin. 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] Pulmonary embolism unspecified chronicity unspecified pulmonary embolism type unspecified whether acute cor pulmonale present [I26.99] Anticoagulation Episode Summary INR check location: Home Draw Preferred lab: LEV Send INR reminders to: [facility] Comments: Home Monitor [phone] (M) Anticoagulation Care Providers Provider Role Specialty Phone number Karel Jerry MD Responsible Cardiology [phone] Patient Assessment Service Type: INR Test Result INR Result: Out of Range Warfarin Therapy Instructions September 2023 Details Sun Mon Thuu Fri Sat 1 2 3 4 5 6 7 8 9 10 11 12 13 14 15 16 17 18 19 2.5 mg See details 20 4 mg 21 2.5 mg 22 5 mg 23 5 mg 24 5 mg 25 5 mg 26 2.5 mg 27 28 29 30 Date Details 09/22 This INR check Date of next INR: 09/30/2023 How to take your warfarin dose To take: 2.5 mg Take 0.5 of a 5 mg tablet. To take: 4 mg Take 4 of the 1 mg tablets. To take: 5 mg Take 1 of the 5 mg tablets. Description 09/22 INR still slightly elevated today despite [...] warfarin and retest INR in 1 week(s). 08/19/2023: INR in range. I left a [...] 11/11/2023 3:00 AM EDT Anti-Coag Telephone Visit [facility] [place] [place] [phone] documented as of this encounter Visit Diagnoses Diagnosis Antiphospholipid antibody----- use antiXa level to dose heparin. Primary hypercoagulable state Aortic valve prosthesis present Heart valve replaced by other means Pulmonary embolism, unspecified chronicity, unspecified pulmonary embolism type, unspecified whether acute cor pulmonale present documented in this encounter Care Teams Hairspring Assembler Relationship Specialty Start Date End Date Briana Timmons, [employer] [place] [address] PCP - General Family Medicine 08/09/21 documented as of this encounter
--- OUTSIDE RECORDS SUMMARY | 2023-11-04 15:07 | XMS_ITS | Encounter Summary ---
[place] [address] Care Team Providers Care Real Estate Developer Name Role Phone Briana Timmons APRN Primary Care Provider [phone] Reason for Visit * Reason Comments Medication Refill Encounter Details Date Type Department Care Team (Late st Contact Info) Description 09/07/2023 [place] [address] Brad Baugh MD [facility] [place] [address] Social History Tobacco Use Types Packs/Day Years [...] AM EST documented as of this encounter Miscellaneous Notes * Telephone Encounter - Allison Nuñez RN - 09/10/2023 10:25 AM EDT Syringes refill to administer Methotrexate pended to the provider Dr Baugh. documented in this encounter Plan of Treatment Upcoming Encounters Date Type Department Care Team (Late st Contact Info) Description 11/11/2023 3:00 AM EDT Anti-Coag Telephone Visit [facility] [place] [address] documented as of this encounter Visit Diagnoses Not on filedocumented in this encounter Care Teams Real Estate Developer Relationship Specialty Start Date End Date Briana Timmons, ASSOCIATE PROFESSOR OF PATHOLOGY [address] [facility] [place] [address] PCP - General Family Medicine 08/09/21 documented as of this encounter
--- OUTSIDE RECORDS SUMMARY | 2023-11-04 15:07 | XMS_ITS | Encounter Summary ---
[place] [address] Care Team Providers Care Jetting Machine Operator Name Role Phone Briana Timmons APRN Primary Care Provider [phone] Encounter Details Date Type Department Care Team (Latest Contact Info) Description 09/10/2023 3:00 AM EDT Anti-Coag Telephone Visit [facility] [place] [address] Kelli Hoffman, RN Antiphospholipid antibody----- use antiXa level to [...] as of this encounter Progress Notes * Kelli Hoffman RN - 09/10/2023 3:00 AM EDT Images from the original [...] High Risk Changes) Anticoagulation Summary As of 09/10/2023 INR goal: 2.5-3.5 TTR: 58.1% (6 mo) INR used for dosin.7 (09/10/2023) Warfarin maintenance plan: 4 mg (1 mg x 4) every Yaritza; 5 mg (5 mg x 1) all other days Weekly warfarin total: 34 mg Plan last modified: Kelli Hoffman RN (09/10/2023) Next INR check: 09/16/2023 Priority: 1 Week Target end date: Indefinite Indications Antiphospholipid antibody----- use antiXa level to dose heparin. 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] Pulmonary embolism unspecified chronicity unspecified pulmonary embolism type unspecified whether acute cor pulmonale present [I26.99] Anticoagulation Episode Summary INR check location: Home Draw Preferred lab: LEV Send INR reminders to: [facility] Comments: Home Monitor [phone] (M) Anticoagulation Care Providers Provider Role Specialty Phone number Karel Jerry MD Responsible Cardiology [phone] Patient Assessment Service Type: INR Test Result INR Result: Out of Range Clinical Outcomes Negatives: Major bleeding event, Thromboembolic event, Anticoagulation-related hospital admission, Anticoagulation-related ED visit Patient Findings Positives: Change in medications (Tylenol x 2 days) Negatives: Upcoming Travel, Planning or Currently , Recent Fall, Signs/symptoms of thrombosis, Signs/symptoms of bleeding, Laboratory test error suspected, Change in health, Change in alcoholuse, Change in activity, Upcoming invasive procedure, Emergency department visit, Upcoming dental procedure, Missed doses, Extra doses, Change in diet/appetite, Hospital admission, Bruising, Other complaints Warfarin Therapy Instructions September 2023 Details Sun Mon Thu Sat 1 2 3 4 5 6 4 mg See details 7 5 mg 8 5 mg 9 5 mg 10 5 mg 11 5 mg 12 5 mg 13 14 15 16 17 18 19 20 21 22 23 24 25 26 27 28 29 30 Date Details 09/09 This INR check Date of next INR: 09/16/2023 How to take your warfarin dose To take: 4 mg Take 4 of the 1 mg tablets. To take: 5 mg Take 1 of the 5 mg tablets. Description 09/10/23 INR 3.7 High. Spoke to Cecilia. [...] 11/11/2023 3:00 AM EDT Anti-Coag Telephone Visit [facility] [place] [address] documented as of this encounter Visit Diagnoses Diagnosis Antiphospholipid antibody----- use antiXa level to dose heparin. Primary hypercoagulable state Aortic valve prosthesis present Heart valve replaced by other means Pulmonary embolism, unspecified chronicity, unspecified pulmonary embolism type, unspecified whether acute cor pulmonale present documented in this encounter Care Teams Jetting Machine Operator Relationship Specialty Start Date End Date Briana Timmons, CATH LABORATORY TECHNICIAN [address] [place] [address] PCP - General Family Medicine 08/09/21 documented as of this encounter
--- OUTSIDE RECORDS SUMMARY | 2023-11-04 15:07 | XMS_ITS | Encounter Summary ---
[place] [address] Care Team Providers Care Branner Machine Tender Name Role Phone Briana Timmons APRN Primary Care Provider [phone] Reason for Visit * Reason Comments Medication Refill Encounter Details Date Type Department Care Team (Late st Contact Info) Description 10/14/2023 [place] [address] Brad Baugh MD [facility] [place] [address] Alopecia; High risk medication use Social History Tobacco Use Types Packs/Day Years [...] 11/11/2023 3:00 AM EDT Anti-Coag Telephone Visit [facility] [place] [address] documented as of this encounter Visit Diagnoses Diagnosis Alopecia Alopecia, unspecified High risk medication use Encounter for long-term (current) use of other medications documented in this encounter Care Teams Branner Machine Tender Relationship Specialty Start Date End Date Briana Timmons, [place] [address] PCP - General Family Medicine 08/09/21 documented as of this encounter
--- OUTSIDE RECORDS SUMMARY | 2023-11-04 15:07 | XMS_ITS | Encounter Summary ---
[place] [address] Care Team Providers Care Laundry Or Dry Cleaners Counter Clerk Name Role Phone Briana Timmons APRN Primary Care Provider [phone] Encounter Details Date Type Department Care Team (Late Contact Info) Description 08/12/2023 Orders Only Internal Medicine at [address] [phone] Shasta Dixon MD [facility] [place] [address] Social History Tobacco Use Types Packs/Day Years [...] 11/11/2023 3:00 AM EDT [place] [phone] documented as of this encounter Procedures Procedure Name Priority Date/Time Associated Diagnosis Comments EXTERNAL INR RESULTS PANEL Routine 08/12/2023 10:29 AM EDT documented in this encounter Results * External INR Results Panel (08/12/2023 10:29 AM EDT) POCT INR 2.7 2.5 - 3.5 INR Comment:VioletR - Inr Result F rom Android Mobile Application 08/12/2023 10:2 9 AM EDT 08/12/2023 10:29 AM EDT Shasta Dixon MD POINT OF CARE TEST ORDERABLES Performing Organization Address City/State/[facility] Co de Phone Number MDINR [address] [phone] documented in this encounter Visit Diagnoses Not on filedocumented in this encounter Care Teams Laundry Or Dry Cleaners Counter Clerk Relationship Specialty Start Date End Date Briana Timmons, MACHINE FORMER [place] [place] [address] PCP - General Family Medicine 08/09/21 documented as of this encounter
--- OUTSIDE RECORDS SUMMARY | 2023-11-04 15:07 | XMS_ITS | Encounter Summary ---
Author Organization [facility] Address [address] [place] [address] Care Team Providers Care Single Ending Machine Operator Name Role Phone Unknown, Provider Primary Care Provider Encounter Details Date Type Department Care Team (Latest Contact Info) Description 06/20/2022 Lab Requisition [facility] Pathology & Laboratory Medicine - [facility] [address] [place] [address] Briana Timmons NP [address], [place] [id number] Encounter for general adult medical examination without abnormal findings; Encounter for screening for human papillomavirus (HPV); Encounter for screening for malignant neoplasm of cervix Social History Tobacco Use Types Packs/Day Years [...] Date/Time Associated Diagnosis Comments PAP TEST Today 06/18/2022 14:30 EDT Encounter for general adult medical examination without abnormal findings Encounter for screening for human papillomavirus (HPV) Encounter for screening for malignant neoplasm of cervix HPV GENOTYPES 16 AND 18/45 Today 06/18/2022 14:30 EDT Encounter for general adult medical examination without abnormal findings Encounter for screening for human papillomavirus (HPV) Encounter for screening for malignant neoplasm of cervix HPV DNA DETECTION WITH GENOTYPING, PCR Today 06/18/2022 14:30 EDT Encounter for general adult medical examination without abnormal findings Encounter for screening for human papillomavirus (HPV) Encounter for screening for malignant neoplasm of cervix documented in this encounter Results * HPV GENOTYPES 16 AND 18/45 (06/18/2022 14:30 EDT) HPV High Risk type 16, PCR Negative Negative 07/03/2022 12:48 EDT [facility] HPV18/45 RNA (HPV18/45) Negative Negative 07/03/2022 12:48 EDT [facility] Papanicolaou smear specimen (specimen) CERVIX UTERI STRUCTURE / Unknown 06/18/2022 14:30 EDT 07/01/2022 12:41 EDT Briana Timmons NP MICROBIOLOGY - GENER AL ORDERABLES Performing Organization Address [facility] de Phone Number [facility] [address] [place] [address] * (ABNORMAL) HUMAN PAPILLOMAVIRUS (HPV) DETECTION-HIGH RISK TYPES (06/18/2022 14:30 EDT) HPV other High Risk types, PCR Positive( A) Negative 07/03/2022 12:48 EDT [facility] Comment:E6 OR E7 mRNA from o ne or more types of HPV types 16,18,31,33,35,39,45,51,52,56,58,59,66, and 68 is detected by news broadcaster mediated amplification. High and intermediate risk HPV types are associated with most squamous intraepithelial lesions and cervical cancers. Papanicolaou smear specimen (specimen) CERVIX UTERI STRUCTURE / Unknown 06/18/2022 14:30 EDT 07/01/2022 12:41 EDT Briana Timmons NP MICROBIOLOGY - GENER AL ORDERABLES Performing Organization Address City/[facility] Co de Phone Number [facility] [address] [place] [address] * PAP TEST (06/18/2022 14:30 EDT) Specimens A. Cervix and/or Endocervix , ThinPrep Imaging System with Manual Evaluation 07/03/2022 12:48 EDT [facility] Specimen Adequacy Satisfactory for Evaluation - transformation zone component present 07/03/2022 12:48 EDT [facility] General Categorization Negative for intraepithelial lesion or malignancy 07/03/2022 12:48 EDT [facility] Attestation . 07/03/2022 12:48 EDT [facility] at 1248 Clinical History See below 07/04/19 12:48 EDT [facility] HPV The result for the Human Papillomavirus (HPV) Detection-High Risk Types is Positive . E6 OR E7 mRNA from one or more types of HPV types 16,18,31,33,35,39 ,45,51,52,56,58,5 9,66, and 68 is detected by news broadcaster mediated amplification. High and intermediate risk HPV types are associated with most squamous intraepithelial lesions and cervical cancers. Testing was performed on specimen [id number] and was resulted on 07/02/2022 1605 EDT by BLUE, LAB INSTRUMENT RESULTS IN 07/03/2022 12:48 EDT [facility] Genotyping 16 & 18/45 The results for the HPV Genotypes 16 and 18/45 are Negative for the HPV16 RNA and Negative for the HPV18/45 RNA (HPV18/45). Testing was performed on specimen [id number] and was resulted on 07/03/2022 1247 EDT by BLUE, LAB INSTRUMENT RESULTS IN 07/03/2022 12:48 EDT [facility] Performing Lab [facility] 07/03/2022 12:48 EDT [facility] Scanned Images 07/03/2022 12:48 EDT [facility] Papanicolaou smear specimen (specimen) CERVIX UTERI STRUCTURE / Unknown 06/18/2022 14:30 EDT 06/20/2022 15:34 EDT Briana Timmons NP PATHOLOGY ORDERABLES [facility] [address] [place] [address] documented in this encounter Visit Diagnoses Diagnosis Encounter for general adult medical examination without abnormal findings Unspecified general medical examination Encounter for screening for human papillomavirus (HPV) Special screening examination for human papillomavirus (HPV) Encounter for screening for malignant neoplasm of cervix Screening for malignant neoplasm of the cervix documented in this encounter Care Teams Single Ending Machine Operator Relationship Specialty Start Date End Date Unknown, Provider, PCP - General 01/16/12 documented as of this encounter
--- OUTSIDE RECORDS SUMMARY | 2023-11-04 15:07 | XMS_ITS | Encounter Summary ---
[place] [address] Care Team Providers Care Front Desk Monitor Name Role Phone Briana Timmons APRN Primary Care Provider [phone] Encounter Details Date Type Department Care Team (Latest Contact Info) Description 08/05/2023 3:00 AM EDT Anti-Coag Telephone Visit [facility] [place] [address], PAIGE Antiphospholipid antibody----- use antiXa level to dose [...] Progress Notes * Tucker Lane RN - 08/05/2023 3:00 AM EDT Images from the original note were not included. Anticoagulation Therapy Note Anticoagulation Summary As of 08/05/2023 INR goal: 2.5-3.5 TTR: 48.1% (6 mo) INR used for dosin (08/05/2023) Warfarin maintenance plan: 5 mg (5 mg x 1) every day Weekly warfarin total: 35 mg No change documented: Tucker Lane RN Plan last modified: Shasta Delaney [facility] (07/10/2023) Next INR check: 08/12/2023 Priority: 1 Week Target end date: Indefinite Indications Antiphospholipid antibody----- use antiXa level to dose heparin. 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] Pulmonary embolism unspecified chronicity unspecified pulmonary embolism type unspecified whether acute cor pulmonale present [I26.99] Anticoagulation Episode Summary INR check location: Home Draw Preferred lab: LEV Send INR reminders to: [facility] Comments: Home Monitor [phone] (M) Anticoagulation Care Providers Provider Role Specialty Phone number Karel Jerry MD Responsible Cardiology [phone] Patient Assessment Service Type: INR Test Result INR Result: In Range Clinical Outcomes Negatives: Major bleeding event, [...] admission, Bruising, Other complaints Warfarin Therapy Instructions August 2023 Details Sun Thu Sat 1 5 mg See details 2 5 mg 3 5 mg 4 5 mg 5 5 mg 6 5 mg 7 5 mg 8 5 mg 9 10 11 12 13 14 15 16 17 18 19 20 21 22 23 24 25 26 27 28 29 30 31 Date Details 08/04 This INR check Date of next INR: 08/12/2023 How to take your warfarin dose To take: 5 mg Take 1 of the 5 mg tablets. Description 08/05/2023: INR in range. I spoke to [...] Telephone Visit [facility] [place] [address] documented as of this encounter Visit Diagnoses Diagnosis Antiphospholipid antibody----- use antiXa level to dose heparin. Primary hypercoagulable state Aortic valve prosthesis present Heart valve replaced by other means Pulmonary embolism, unspecified chronicity, unspecified pulmonary embolism type, unspecified whether acute cor pulmonale present documented in this encounter Care Teams Front Desk Monitor Relationship Specialty Start Date End Date Briana Timmons APRN [address] [place] [address] PCP - General Family Medicine 08/09/21 documented as of this encounter
--- OUTSIDE RECORDS SUMMARY | 2023-11-04 15:07 | XMS_ITS | Encounter Summary ---
[place] [address] Care Team Providers Care Post Graduate Intern Name Role Phone Briana Timmons APRN Primary Care Provider [phone] Encounter Details Date Type Department Care Team (Late Contact Info) Description 10/07/2023 Orders Only Internal Medicine at [address] [phone] Shasta Dixon MD [facility] [place] [address] Social History Tobacco Use Types Packs/Day Years [...] 11/11/2023 3:00 AM EDT [place] [phone] documented as of this encounter Procedures Procedure Name Priority Date/Time Associated Diagnosis Comments EXTERNAL INR RESULTS PANEL Routine 10/07/2023 10:58 AM EDT documented in this encounter Results * External INR Results Panel (10/07/2023 10:58 AM EDT) POCT INR 3.3 2.5 - 3.5 INR Comment:VioletR - Inr Result F rom Android Mobile Application 10/07/2023 10:5 8 AM EDT 10/07/2023 10:58 AM EDT Shasta Dixon MD POINT OF CARE TEST ORDERABLES Performing Organization Address City/State/[facility] Co de Phone Number MDINR [address] [phone] documented in this encounter Visit Diagnoses Not on filedocumented in this encounter Care Teams Post Graduate Intern Relationship Specialty Start Date End Date Briana Timmons, SUELLEN [place] [place] [address] PCP - General Family Medicine 08/09/21 documented as of this encounter
--- OUTSIDE RECORDS SUMMARY | 2023-11-04 15:07 | XMS_ITS | Encounter Summary ---
Author Organization [facility] Address [address] [place] [address] Care Team Providers Care Casting Wheel Operator Name Role Phone Unknown, Provider Primary Care Provider Encounter Details Date Type Department Care Team (Late st Contact Info) Description 04/08/2013 Results Only [facility] Laboratory Services - [facility] [place] [address] [place], [place] [address] Damari Gonzalez NP [address] [place] [address] Social History Tobacco Use Types Packs/Day Years Used Date Smoking Tobacco: Never Assessed Sex and Gender Information Value Date Recorded Sex Assigned at Not on file Gender Identity Not on file Sexual Orientation Not on file documented as of this encounter Plan of Treatment Not on file documented as of this encounter Procedures Procedure Name Priority Date/Time Associated Diagnosis Comments PAP TEST- RESULT ONLY Routine 04/08/2013 0:00 EST documented in this encounter Results * PAP TEST- RESULT ONLY (04/08/2013 0:00 EST) Pathology Report: CYTOPATHOLOGY REPORT Reports generated via electronic interface contain original data; however they are lacking the format of the original report. Caution should be taken when reading/interpreti ng unformatted reports. Name: ? CECILIA LOWERY ? Accession #: ? [id number] ? : ? 1970 (Age: 43) ??F ?Collect Date: ? 04/08/2013 ? Location: ? [facility] ? Receive Date: ? 04/11/2013 ? Provider: DAMARI GONZALEZ PAD MACHINE OPERATOR Copy to: ? Final Report SPECIMEN ADEQUACY ? Satisfactory for Evaluation - transformation zone component present GENERAL CATEGORIZATION ? Negative for Intraepithelial Lesion or Malignancy ?? Last Menstrual Period: 2003 Hormonal/Contracep tive status: Tubal ligation Treatment History: Miscellaneous treatment: Endometrial ablation 2003 Colposcopy: > 10 yrs ago LEEP: > 10 yrs ago Specimen/Source: ??Pap Test, Cervix/Endocervix, ThinPrep Imaging System with manual evaluation Document reviewed and electronically signed by: ? Marga Schneider, JOEY(ASCP)(IAC) ? Report ??Date: 04/12/2013 16:12 HPV with Pap Test ? Date Ordered: ? 04/12/2013 ? Status: ?? Signed Out ?Date Complete: ? 04/14/2013 ? By: ??System Interface ? Date Reported: ? 04/14/2013 ? Interpretation RESULT: Negative for HPV. No E6 or E7 mRNA is detected from HPV types 16,18,31,33,35, 39,45,51,52,56,58, 59,66, and 68 by pattern room attendant mediated amplification. Comments Document reviewed and electronically signed by: ? System Interface ? Report date: 04/14/2013 By the signature above, the attending physician certifies that he/she has personally conducted a gross and/or microscopic examination of the described specimens and rendered or confirmed the above diagnosis. End of Report [facility] 04/08/2013 04/11/2013 Damari Gonzalez NP PATHOLOGY ORDERABLES [facility] [address] [place] [address] documented in this encounter Visit Diagnoses Not on filedocumented in this encounter Care Teams Casting Wheel Operator Relationship Specialty Start Date End Date Unknown, Provider, PCP - General 01/16/12 documented as of this encounter
--- OUTSIDE RECORDS SUMMARY | 2023-11-04 15:07 | XMS_ITS | Encounter Summary ---
[place] [address] Care Team Providers Care Case Work Aide Name Role Phone Briana Timmons APRN Primary Care Provider [phone] Encounter Details Date Type Department Care Team (Late Contact Info) Description 08/05/2023 Orders Only Internal Medicine at [address] [phone] Shasta Dixon MD [facility] [place] [address] Social History Tobacco Use Types Packs/Day Years [...] 11/11/2023 3:00 AM ED[place] [phone] documented as of this encounter Procedures Procedure Name Priority Date/Time Associated Diagnosis Comments EXTERNAL INR RESULTS PANEL Routine 08/05/2023 10:57 AM EDT documented in this encounter Results * External INR Results Panel (08/05/2023 10:57 AM EDT) POCT INR 3 2.5 - 3.5 MDINR Comment:mdINR - Inr Result F rom Android Mobile Application 08/05/2023 10:5 7 AM EDT 08/05/2023 10:57 AM EDT Shasta Dixon MD POINT OF CARE TEST ORDERABLES Performing Organization Address City/State/[facility] Co de Phone Number MDINR [address] [phone] documented in this encounter Visit Diagnoses Not on filedocumented in this encounter Care Teams Case Work Aide Relationship Specialty Start Date End Date Briana Timmons APR[place] [place] [address] PCP - General Family Medicine 08/09/21 documented as of this encounter
--- OUTSIDE RECORDS SUMMARY | 2023-11-04 15:07 | XMS_ITS | Encounter Summary ---
Author Organization [facility] Address [address] [place] [address] Care Team Providers Care Vacuum Cleaner Mechanic Name Role Phone Unknown, Provider Primary Care Provider Encounter Details Date Type Department Care Team (Late st Contact Info) Description 01/14/2012 Results Only [facility]- [facility] [phone] Hawk Luz, NUT TAPPER [address] [place] [phone] Social History Tobacco Use Types Packs/Day Years [...] Diagnosis Comments PAP TEST- RESULT ONLY Routine 01/14/2012 0:00 EDT documented in this encounter Results * PAP TEST- RESULT ONLY (01/14/2012 0:00 EDT) Pathology Report: CYTOPATHOLOGY REPORT Reports generated via electronic interface contain original data; however they are lacking the format of the original report. Caution should be taken when reading/interpreti ng unformatted reports. Name: ? CECILIA LOWERY ? Accession #: ? [id number] : ? 1970 (Age: 42) ??F ?Collect Date: ? 01/14/2012 Location: ? [facility] ? Receive Date: ? 01/16/2012 Provider: ?HAWK LUZ DOOR FRAME BUILDER Copy to: ? Specimen/Source: ?Pap Test, Cervix/Endocervix, ThinPrep Imaging System with manual evaluation Last Menstrual Period: ? 1989;s Hormonal/Contracep tive Status: ? Condoms Tubal ligation Treatment History: ? LEEP Colposcopy Other: ? Additional clinical information: 5 miscarrages, d/t lupus ? SPECIMEN ADEQUACY ? Satisfactory for Evaluation - transformation zone component present GENERAL CATEGORIZATION ? Negative for Intraepithelial Lesion or Malignancy ? Document reviewed and electronically signed by: ? JOEY Kaye(ASCP) ? Report Date: ??01/21/2012 15:07 End of Report [facility] 01/14/2012 01/16/2012 Hawk Luz NUT TAPPER PATHOLOGY ORDERABLES Performing Organization Address City/State/[facility] Co de Phone Number [facility] [address] [place] [address] documented in this encounter Visit Diagnoses Not on filedocumented in this encounter Care Teams Vacuum Cleaner Mechanic Relationship Specialty Start Date End Date Unknown, Provider, PCP - General 01/16/12 documented as of this encounter
--- OUTSIDE RECORDS SUMMARY | 2023-11-04 15:07 | XMS_ITS | Encounter Summary ---
Author Organization [facility] Address [address] [place] [address] Care Team Providers Care Rope Walker Name Role Phone Unknown, Provider Primary Care Provider [phone] Encounter Details Date Type Department Care Team (Late st Contact Info) Description 05/22/2022 Lab Requisition [facility] Pathology & Laboratory Medicine - [facility] [address] [place], [place] [id number] Outr Resulting Lab, Provider Social History Tobacco [...] Procedure Name Priority Date/Time Associated Diagnosis Comments CHLAMYDIA/N. GONORRHOEAE AMPLIFIED NUCLEIC ACID, THINPREP Routine 05/21/2022 14:30 EST documented in this encounter Results * CHLAMYDIA/N. GONORRHOEAE AMPLIFIED RNA, THINPREP (05/21/2022 14:30 EST) Neisseria gonorrhoeae Result Negative Negative 05/23/2022 14:26 EST [facility] Chlamydia trachomatis Result Negative Negative 05/23/2022 14:26 EST [facility] Papanicolaou smear specimen (specimen) CERVIX UTERI STRUCTURE / Unknown 05/21/2022 14:30 EST 05/23/2022 7:39 EST Provider Outr Resulting Lab MICROBIOLOGY - GENERAL ORDERABLES [facility] [address] [place] [address] documented in this encounter Visit Diagnoses Not on filedocumented in this encounter Care Teams Rope Walker Relationship Specialty Start Date End Date Unknown, Provider, PCP - General 01/16/12 documented as of this encounter
--- OUTSIDE RECORDS SUMMARY | 2023-11-04 15:07 | XMS_ITS | Encounter Summary ---
[place] [address] Care Team Providers Care Paint Line Operator Name Role Phone Briana Timmons APRN Primary Care Provider [phone] Encounter Details Date Type Department Care Team (Latest Contact Info) Description 08/26/2023 3:00 AM EDT Anti-Coag Telephone Visit [facility] Centralized [place] [address] Shasta Delaney [facility] Antiphospholipid antibody----- use antiXa level to [...] Progress Notes * Shasta Delaney [facility] - 08/26/2023 3:00 AM EDT Images from the original note were not included. Anticoagulation Therapy Telephone Note: 08/07/2023 Anticoag Monitoring Prescreening Questionnaire Missed/extra doses of warfarin (not prescribed)? No Change in diet? No Change in alcohol consumption? No Antibiotic started/stopped? No Herbal supplement started/stopped? No Change in NSAID usage? No Recent falls No Recent bleeding? No Change to current meds/health? No Count of Low Risk Yes Responses 0 (No Low Risk Changes) Count of High Risk Yes Responses 0 (No High Risk Changes) Anticoagulation Summary As of 08/26/2023 INR goal: 2.5-3.5 TTR: 58.5% (6 mo) INR used for dosin.3 (08/26/2023) Warfarin maintenance plan: 5 mg (5 mg x 1) every day Weekly warfarin total: 35 mg Plan last modified: Shasta Delaney [facility] (07/10/2023) Next INR check: 09/02/2023 Priority: 1 Week Target end date: Indefinite Indications Antiphospholipid antibody----- use antiXa level to dose heparin. 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] Pulmonary embolism unspecified chronicity unspecified pulmonary embolism type unspecified whether acute cor pulmonale present [I26.99] Anticoagulation Episode Summary INR check location: Home Draw Preferred lab: LEV Send INR reminders to: [facility] Comments: Home Monitor [phone] (M) Anticoagulation Care Providers Provider Role Specialty Phone number Karel Jerry MD Responsible Cardiology [phone] Patient Assessment Service Type: INR Test Result INR Result: In Range Clinical Outcomes Patient Findings Comments: I left a voicemail for Cecilia with instructions to call with any changes in diet, medication or health or if the dosing we have on record differs from the dose they have been taking. Also instructed to call clinic to report any missed doses. Warfarin Therapy Instructions August 2023 Details Sun Thuu Fri Sat 1 2 3 4 5 6 7 8 9 10 11 12 13 14 15 16 17 18 19 20 21 22 5 mg See details 23 5 mg 24 5 mg 25 5 mg 26 5 mg 27 5 mg 28 5 mg 29 5 mg 30 31 Date Details 08/25 This INR check Date of next INR: 09/02/2023 How to take your warfarin dose To take: 5 mg Take 1 of the 5 mg tablets. Description 08/26/2023: INR in range. I left a [...] 11/11/2023 3:00 AM EDT Anti-Coag Telephone Visit [facility] [place] [address] documented as of this encounter Visit Diagnoses Diagnosis Antiphospholipid antibody----- use antiXa level to dose heparin. 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
--- OUTSIDE RECORDS SUMMARY | 2023-11-04 15:07 | XMS_ITS | Encounter Summary ---
[place] [address] Care Team Providers Care Dramatic Agent Name Role Phone Briana Timmons APRN Primary Care Provider [phone] Encounter Details Date Type Department Care Team (Latest Contact Info) Description 09/30/2023 3:00 AM EDT Anti-Coag Telephone Visit [facility] [place] [address], RN Antiphospholipid antibody----- [...] Progress Notes * Tucker Lane RN - 09/30/2023 3:00 AM EDT Images from the original [...] High Risk Changes) Anticoagulation Summary As of 09/30/2023 INR goal: 2.5-3.5 TTR: 53.2% (6 mo) INR used for dosin.3 (09/30/2023) Warfarin maintenance plan: 2.5 mg (5 mg x 0.5) every Thu, Thu; 4 mg (1 mg x 4) every Yaritza; 5 mg (5 mg x 1) all other days Weekly warfarin total: 29 mg No change documented: Tucker Lane RN Plan last modified: Tucker Lane RN (09/23/2023) Next INR check: 10/07/2023 Priority: 1 Week Target end date: Indefinite Indications Antiphospholipid antibody----- use antiXa level to dose heparin. 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] Pulmonary embolism unspecified chronicity unspecified pulmonary embolism type unspecified whether acute cor pulmonale present [I26.99] Anticoagulation Episode Summary INR check location: Home Draw Preferred lab: LEV Send INR reminders to: [facility] Comments: Home Monitor [phone] (M) Anticoagulation Care Providers Provider Role Specialty Phone number Karel Jerry MD Responsible Cardiology [phone] Patient Assessment Service Type: INR Test Result [...] complaints Warfarin Therapy Instructions September 2023 Details Thu Fri Sat 1 2 3 4 5 6 7 8 9 10 11 12 13 14 15 16 17 18 19 20 21 22 23 24 25 26 2.5 mg See details 27 4 mg 28 2.5 mg 29 5 mg 30 5 mg Date Details 09/29 This INR check How to take your warfarin dose To take: 2.5 mg Take 0.5 of a 5 mg tablet. To take: 4 mg Take 4 of the 1 mg tablets. To take: 5 mg Take 1 of the 5 mg tablets. Warfarin Therapy Instructions October 2023 Details Thu Fri Sat 1 5 mg 2 5 mg 3 2.5 mg 4 5 6 7 8 9 10 11 12 13 14 15 16 17 18 19 20 21 22 23 24 25 26 27 28 29 30 31 Date Details No additional details Date of next INR: 10/07/2023 How to take your warfarin dose To take: 2.5 mg Take 0.5 of a 5 mg tablet. To take: 5 mg Take 1 of the 5 mg tablets. Description 09/29 INR in range today, spoke with [...] Telephone Visit [facility] [place] [address] documented as of this encounter Visit Diagnoses Diagnosis Antiphospholipid antibody----- use antiXa level to dose heparin. Primary hypercoagulable state Aortic valve prosthesis present Heart valve replaced by other means Pulmonary embolism, unspecified chronicity, unspecified pulmonary embolism type, unspecified whether acute cor pulmonale present documented in this encounter Care Teams Dramatic Agent Relationship Specialty Start Date End Date Briana Timmons APRN [facility] [facility] [address] PCP - General Family Medicine 08/09/21 documented as of this encounter
--- OUTSIDE RECORDS SUMMARY | 2023-11-04 15:07 | XMS_ITS | Encounter Summary ---
[place] [address] Care Team Providers Care Parts Manager Name Role Phone Briana Timmons APRN Primary Care Provider [phone] Reason for Visit * Reason Comments Medication Refill Encounter Details Date Type Department Care Team (Late st Contact Info) Description 09/09/2023 [place] [phone] Brad Baugh MD [facility] [place] [address] Systemic lupus erythematosus, unspecified SLE type, unspecified organ involvement status Social History Tobacco Use Types Packs/Day Years [...] Encounter - Allison Nuñez RN - 09/10/2023 1:40 PM EDT Refill pended of Hydroxychloroquine. documented in this encounter Plan of Treatment Upcoming Encounters Date Type Department Care Team (Late st Contact Info) Description 11/11/2023 3:00 AM EDT [place] [address] documented as of this encounter Visit Diagnoses Diagnosis Systemic lupus erythematosus, unspecified SLE type, unspecified organ involvement status documented in this encounter Care Teams Parts Manager Relationship Specialty Start Date End Date Briana Timmons APRN [address] [place] [address] PCP - General Family Medicine 08/09/21 documented as of this encounter
--- OUTSIDE RECORDS SUMMARY | 2023-11-04 15:07 | XMS_ITS | Encounter Summary ---
[place] [address] Care Team Providers Care Tester Vibrator Equipment Name Role Phone Briana Timmons APRN Primary Care Provider [phone] Encounter Details Date Type Department Care Team (Latest Contact Info) Description 10/07/2023 3:00 AM EDT Anti-Coag Telephone Visit [facility] Centralized [place] [address], RN Antiphospholipid antibody----- [...] Progress Notes * Tucker Lane RN - 10/07/2023 3:00 AM EDT Images from the original [...] High Risk Changes) Anticoagulation Summary As of 10/07/2023 INR goal: 2.5-3.5 TTR: 57.0% (6 mo) INR used for dosin.3 (10/07/2023) Warfarin maintenance plan: 2.5 mg (5 mg x 0.5) every Thu, Thu; 4 mg (1 mg x 4) every Yaritza; 5 mg (5 mg x 1) all other days Weekly warfarin total: 29 mg No change documented: Tucker Lane RN Plan last modified: Tucker Lane RN (09/23/2023) Next INR check: 10/14/2023 Priority: 1 Week Target end date: Indefinite Indications Antiphospholipid antibody----- use antiXa level to dose heparin. 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] Pulmonary embolism unspecified chronicity unspecified pulmonary embolism type unspecified whether acute cor pulmonale present [I26.99] Anticoagulation Episode Summary INR check location: Home Draw Preferred lab: LEV Send INR reminders to: [facility] Comments: Home Monitor [phone] (M) Anticoagulation Care Providers Provider Role Specialty Phone number Karel Jerry MD Responsible Cardiology [phone] Patient Assessment Service Type: INR Test Result INR Result: In Range Warfarin Therapy Instructions October 2023 Details Sun Mon e Wed Yaritza Fri Sat 1 2 3 2.5 mg See details 4 4 mg 5 2.5 mg 6 5 mg 7 5 mg 8 5 mg 9 5 mg 10 2.5 mg 11 12 13 14 15 16 17 18 19 20 21 22 23 24 25 26 27 28 29 30 31 Date Details 10/06 This INR check Date of next INR: 10/14/2023 How to take your warfarin dose To take: 2.5 mg Take 0.5 of a 5 mg tablet. To take: 4 mg Take 4 of the 1 mg tablets. To take: 5 mg Take 1 of the 5 mg tablets. Description 10/07/2023: INR in range. I left a [...] 11/11/2023 3:00 AM EDT Anti-Coag Telephone Visit [facility] [place] [address] documented as of this encounter Visit Diagnoses Diagnosis Antiphospholipid antibody----- use antiXa level to dose heparin. Primary hypercoagulable state Aortic valve prosthesis present Heart valve replaced by other means Pulmonary embolism, unspecified chronicity, unspecified pulmonary embolism type, unspecified whether acute cor pulmonale present documented in this encounter Care Teams Tester Vibrator Equipment Relationship Specialty Start Date End Date Briana Timmons, BOXING INSPECTOR [address] [place] [address] PCP - General Family Medicine 08/09/21 documented as of this encounter
--- OUTSIDE RECORDS SUMMARY | 2023-11-04 15:07 | XMS_ITS | Encounter Summary ---
[place] [address] Care Team Providers Care Route Service Manager Name Role Phone Briana Timmons APRN Primary Care Provider [phone] Encounter Details Date Type Department Care Team (Late Contact Info) Description 08/19/2023 Orders Only Internal Medicine at [address] [phone] Shasta Dixon MD [facility] [place] [address] Social History Tobacco Use Types Packs/Day Years [...] 11/11/2023 3:00 AM ED[place] [phone] documented as of this encounter Procedures Procedure Name Priority Date/Time Associated Diagnosis Comments EXTERNAL INR RESULTS PANEL Routine 08/19/2023 12:18 PM EDT documented in this encounter Results * External INR Results Panel (08/19/2023 12:18 PM EDT) POCT INR 3.1 2.5 - 3.5 MDINR Comment:INR - Inr Result F rom Android Mobile Application 08/19/2023 12:1 8 PM EDT 08/19/2023 12:18 PM EDT Shasta Dixon MD POINT OF CARE TEST ORDERABLES Performing Organization Address City/State/[facility] Co de Phone Number MDINR [address] [phone] documented in this encounter Visit Diagnoses Not on filedocumented in this encounter Care Teams Route Service Manager Relationship Specialty Start Date End Date Briana Timmons, SEALANT MIXER [place] [place] [address] PCP - General Family Medicine 08/09/21 documented as of this encounter
--- OUTSIDE RECORDS SUMMARY | 2023-11-04 15:07 | XMS_ITS | Encounter Summary ---
[place] [address] Care Team Providers Care Pastry Baker Name Role Phone Briana Timmons APRN Primary Care Provider [phone] Encounter Details Date Type Department Care Team (Latest Contact Info) Description 08/12/2023 3:00 AM EDT Anti-Coag Telephone Visit [facility] [place] [address], RN Antiphospholipid antibody----- [...] Progress Notes * Tucker Lane RN - 08/12/2023 3:00 AM EDT Images from the original note were not included. Anticoagulation Therapy Note Anticoagulation Summary As of 08/12/2023 INR goal: 2.5-3.5 TTR: 50.8% (6 mo) INR used for dosin.7 (08/12/2023) Warfarin maintenance plan: 5 mg (5 mg x 1) every day Weekly warfarin total: 35 mg No change documented: Tucker Lane RN Plan last modified: Shasta Delaney [facility] (07/10/2023) Next INR check: 08/19/2023 Priority: 1 Week Target end date: Indefinite Indications Antiphospholipid antibody----- use antiXa level to dose heparin. 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] Pulmonary embolism unspecified chronicity unspecified pulmonary embolism type unspecified whether acute cor pulmonale present [I26.99] Anticoagulation Episode Summary INR check location: Home Draw Preferred lab: LEV Send INR reminders to: [facility] Comments: Home Monitor [phone] (M) Anticoagulation Care Providers Provider Role Specialty Phone number Karel Jerry MD Responsible Cardiology [phone] Patient Assessment Service Type: INR Test Result [...] 2 3 4 5 6 7 8 5 mg See details 9 5 mg 10 5 mg 11 5 mg 12 5 mg 13 5 mg 14 5 mg 15 5 mg 16 17 18 19 20 21 22 23 24 25 26 27 28 29 30 31 Date Details 08/11 This INR check Date of next INR: 08/19/2023 How to take your warfarin dose To take: 5 mg Take 1 of the 5 mg tablets. Description 08/12/2023: INR in range. I spoke to [...] 11/11/2023 3:00 AM EDT Anti-Coag Telephone Visit [facility] [place] [address] documented as of this encounter Visit Diagnoses Diagnosis Antiphospholipid antibody----- use antiXa level to dose heparin. Primary hypercoagulable state Aortic valve prosthesis present Heart valve replaced by other means Pulmonary embolism, unspecified chronicity, unspecified pulmonary embolism type, unspecified whether acute cor pulmonale present documented in this encounter Care Teams Pastry Baker Relationship Specialty Start Date End Date Briana Timmons, POLICY SERVICES REPRESENTATIVE [facility] [place] [address] PCP - General Family Medicine 08/09/21 documented as of this encounter
--- OUTSIDE RECORDS SUMMARY | 2023-11-04 15:07 | XMS_ITS | Encounter Summary ---
[place] [address] Care Team Providers Care Cement Finisher Name Role Phone Briana Timmons APRN Primary Care Provider [phone] Encounter Details Date Type Department Care Team (Latest Contact Info) Description 09/03/2023 3:00 AM EDT Anti-Coag Telephone Visit [facility] [place] [address], RN Antiphospholipid antibody----- [...] Progress Notes * Tucker Lane RN - 09/03/2023 3:00 AM EDT Images from the original [...] High Risk Changes) Anticoagulation Summary As of 09/03/2023 INR goal: 2.5-3.5 TTR: 59.0% (6 mo) INR used for dosin.9 (09/02/2023) Warfarin maintenance plan: 5 mg (5 mg x 1) every day Weekly warfarin total: 35 mg No change documented: Tucker Lane, PAIGE Plan last modified: Shasta Delaney [facility] (07/10/2023) Next INR check: 09/09/2023 Priority: 1 Week Target end date: Indefinite Indications Antiphospholipid antibody----- use antiXa level to dose heparin. 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] Pulmonary embolism unspecified chronicity unspecified pulmonary embolism type unspecified whether acute cor pulmonale present [I26.99] Anticoagulation Episode Summary INR check location: Home Draw Preferred lab: LEV Send INR reminders to: [facility] Comments: Home Monitor [phone] (M) Anticoagulation Care Providers Provider Role Specialty Phone number Karel Jerry MD Responsible Cardiology [phone] Patient Assessment Service Type: INR Test Result INR Result: In Range Warfarin Therapy Instructions August 2023 Details Thu Sat 1 2 3 4 5 6 7 8 9 10 11 12 13 14 15 16 17 18 19 20 21 22 23 24 25 26 27 28 29 30 5 mg See details 31 5 mg Date Details 09/02 This INR check How to take your warfarin dose To take: 5 mg Take 1 of the 5 mg tablets. Warfarin Therapy Instructions September 2023 Details Thuu Fri Sat 1 5 mg 2 5 mg 3 5 mg 4 5 mg 5 5 mg 6 7 8 9 10 11 12 13 14 15 16 17 18 19 20 21 22 23 24 25 26 27 28 29 30 Date Details No additional details Date of next INR: 09/09/2023 How to take your warfarin dose To take: 5 mg Take 1 of the 5 mg tablets. Description 09/03/2023: INR in range. I left a [...] 11/11/2023 3:00 AM EDT Anti-Coag Telephone Visit [facility] [place] [address] documented as of this encounter Visit Diagnoses Diagnosis Antiphospholipid antibody----- use antiXa level to dose heparin. Primary hypercoagulable state Aortic valve prosthesis present Heart valve replaced by other means Pulmonary embolism, unspecified chronicity, unspecified pulmonary embolism type, unspecified whether acute cor pulmonale present documented in this encounter Care Teams Cement Finisher Relationship Specialty Start Date End Date Briana Timmons, ARCHITECT INTERNSHIP [address] [facility] [place] [address] PCP - General Family Medicine 08/09/21 documented as of this encounter
--- OUTSIDE RECORDS SUMMARY | 2023-11-04 15:07 | XMS_ITS | Encounter Summary ---
Author Organization [facility] Address [address] [place] [address] Care Team Providers Care Handbag Frames Inspector Name Role Phone Unknown, Provider Primary Care Provider Encounter Details Date Type Department Care Team (Late st Contact Info) Description 03/05/2017 Results Only [facility] [phone] Suhas Finley MD [address] [place] [address] Social History Tobacco Use Types Packs/Day Years [...] Diagnosis Comments PAP TEST- RESULT ONLY Routine 03/05/2017 0:00 EST documented in this encounter Results * PAP TEST- RESULT ONLY (03/05/2017 0:00 EST) Pathology Report: CYTOPATHOLOGY REPORT Reports generated via electronic interface contain original data; however they are lacking the format of the original report. Caution should be taken when reading/interpreti ng unformatted reports. Name: ? CECILIA LOWERY ? Accession #: ? [id number] ? : ? 1970 (Age: 47) ??F ?Collect Date: ? 03/05/2017 ? Location: ? [facility] ? Receive Date: ? 03/06/2017 ? Provider: SUHAS FINLEY MD Copy to: CARSON ADAME APRN ? Final Report SPECIMEN ADEQUACY ? Satisfactory for Evaluation - transformation zone component present GENERAL CATEGORIZATION ? Negative for Intraepithelial Lesion or Malignancy ?? Hormonal/Contracep tive status: None Previous Gynecologic Pathology: Cervical Carcinoma: hx remote Specimen/Source: ??Pap Test, Cervix/Endocervix, ThinPrep Imaging System with manual evaluation Document reviewed and electronically signed by: ? JOEY Kaye(ASCP) ? Report ??Date: 03/18/2017 14:13 HPV with Pap Test ? Date Ordered: ? 03/17/2017 ? Status: ?? Signed Out ?Date Complete: ? 03/19/2017 ? By: ??System Interface ? Date Reported: ? 03/19/2017 ? Interpretation RESULT: Negative for HPV. No E6 or E7 mRNA is detected from HPV types 16,18,31,33,35, 39,45,51,52,56,58, 59,66, and 68 by vessel welder mediated amplification. Comments Document reviewed and electronically signed by: ? System Interface ? Report date: 03/19/2017 By the signature above, the attending physician certifies that he/she has personally conducted a gross and/or microscopic examination of the described specimens and rendered or confirmed the above diagnosis. End of Report [facility] 03/05/2017 03/06/2017 Suhas Finley MD PATHOLOGY ORDERABLES [facility] [address] [place] [address] documented in this encounter Visit Diagnoses Not on filedocumented in this encounter Care Teams Handbag Frames Inspector Relationship Specialty Start Date End Date Unknown, Provider, PCP - General 01/16/12 documented as of this encounter
--- OUTSIDE RECORDS SUMMARY | 2023-11-04 15:07 | XMS_ITS | Encounter Summary ---
[place] [address] Care Team Providers Care Child And Adolescent Psychiatrist Name Role Phone Briana Timmons APRN Primary Care Provider [phone] Encounter Details Date Type Department Care Team (Late Contact Info) Description 08/26/2023 Orders Only Internal Medicine at [address] [phone] Shasta Dixon MD [facility] [place] [address] Social History Tobacco Use Types Packs/Day Years [...] 11/11/2023 3:00 AM EDT [place] [phone] documented as of this encounter Procedures Procedure Name Priority Date/Time Associated Diagnosis Comments EXTERNAL INR RESULTS PANEL Routine 08/26/2023 12:44 PM EDT documented in this encounter Results * External INR Results Panel (08/26/2023 12:44 PM EDT) POCT INR 3.3 2.5 - 3.5 MDINR Comment:INR - Inr Result F rom Android Mobile Application 08/26/2023 12:4 4 PM EDT 08/26/2023 12:44 PM EDT Shasta Dixon MD POINT OF CARE TEST ORDERABLES Performing Organization Address City/State/[facility] Co de Phone Number MDINR [address] [phone] documented in this encounter Visit Diagnoses Not on filedocumented in this encounter Care Teams Child And Adolescent Psychiatrist Relationship Specialty Start Date End Date Briana Timmons, CHAMFERING MACHINE OPERATOR [place] [place] [address] PCP - General Family Medicine 08/09/21 documented as of this encounter
--- OUTSIDE RECORDS SUMMARY | 2023-11-04 15:07 | XMS_ITS | Referral Summary ---
Author Organization [facility] Address [address] [place] [address] Care Team Providers Care Human Resources File Clerk Name Role Phone Unknown, Provider Primary [...] Mass Index - - Plan of Treatment Not on file Advance Directives For more information, please contact: [phone] Documents on File Type Date Recorded Patient Assessment Expert Expl anation Advance Directive 10/16/2023 7:10 -AL Advance Directive Registry & Appoitment of Health Care Agent Care Teams Human Resources File Clerk Relationship Specialty Start Date End Date Unknown, Provider, PCP - General 01/16/12
--- OUTSIDE RECORDS SUMMARY | 2023-11-04 15:07 | XMS_ITS | Encounter Summary ---
[place] [address] Care Team Providers Care Job Analyst Name Role Phone Briana Timmons APRN Primary Care Provider Encounter Details Date Type Department Care Team (Late Contact Info) Description 11/04/2023 Orders Only Internal Medicine at [address] [phone] Shasta Dixon MD [facility] [place] [address] Social History Tobacco Use Types Packs/Day Years [...] 11/11/2023 3:00 AM EDT [place] [phone] documented as of this encounter Procedures Procedure Name Priority Date/Time Associated Diagnosis Comments EXTERNAL INR RESULTS PANEL Routine 11/04/2023 11:30 AM EDT documented in this encounter Results * (ABNORMAL) External INR Results Panel (11/04/2023 11:30 AM EDT) POCT INR 2.1(L) 2.5 - 3.5 MDINR Comment:mdINR - Inr Result F rom Android Mobile Application 11/04/2023 11:3 0 AM EDT 11/04/2023 11:30 AM EDT Shasta Dixon MD POINT OF CARE TEST ORDERABLES Performing Organization Address City/State/[facility] Co de Phone Number MDINR [address] [phone] documented in this encounter Visit Diagnoses Not on filedocumented in this encounter Care Teams Job Analyst Relationship Specialty Start Date End Date Briana Timmons, EMPLOYMENT RECRUITER [address] [place] [address] PCP - General Family Medicine 08/09/21 documented as of this encounter
--- OUTSIDE RECORDS SUMMARY | 2023-11-04 15:07 | XMS_ITS | Encounter Summary ---
[place] [address] Care Team Providers Care Office Communication Professor Name Role Phone Briana Timmons APRN Primary Care Provider [phone] Encounter Details Date Type Department Care Team (Latest Contact Info) Description 09/16/2023 3:00 AM EDT Anti-Coag Telephone Visit [facility] [place] [address], RN Antiphospholipid antibody----- [...] Progress Notes * Tucker Lane RN - 09/16/2023 3:00 AM EDT Images from the original [...] High Risk Changes) Anticoagulation Summary As of 09/16/2023 INR goal: 2.5-3.5 TTR: 54.7% (6 mo) INR used for dosin.9 (09/16/2023) Warfarin maintenance plan: 4 mg (1 mg x 4) every Yaritza; 5 mg (5 mg x 1) all other days Weekly warfarin total: 34 mg Plan last modified: Kelli Hoffman RN (09/10/2023) Next INR check: 09/23/2023 Priority: 1 Week Target end date: Indefinite Indications Antiphospholipid antibody----- use antiXa level to dose heparin. 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] Pulmonary embolism unspecified chronicity unspecified pulmonary embolism type unspecified whether acute cor pulmonale present [I26.99] Anticoagulation Episode Summary INR check location: Home Draw Preferred lab: LEV Send INR reminders to: [facility] Comments: Home Monitor [phone] (M) Anticoagulation Care Providers Provider Role Specialty Phone number Karel Jerry MD Responsible Cardiology [phone] Patient Assessment Service Type: INR Test Result INR Result: Out of Range Warfarin Therapy Instructions September 2023 Details Sun Mon Thu Wed Yaritza Fri Sat 1 2 3 4 5 6 7 8 9 10 11 12 2.5 mg See details 13 4 mg 14 5 mg 15 5 mg 16 5 mg 17 5 mg 18 5 mg 19 5 mg 20 21 22 23 24 25 26 27 28 29 30 Date Details 09/15 This INR check Date of next INR: 09/23/2023 How to take your warfarin dose To take: 2.5 mg Take 0.5 of a 5 mg tablet. To take: 4 mg Take 4 of the 1 mg tablets. To take: 5 mg Take 1 of the 5 mg tablets. Description 09/15 INR elevated today, left VM for [...] 11/11/2023 3:00 AM EDT Anti-Coag Telephone Visit [facility] [place] [address] documented as of this encounter Visit Diagnoses Diagnosis Antiphospholipid antibody----- use antiXa level to dose heparin. Primary hypercoagulable state Aortic valve prosthesis present Heart valve replaced by other means Pulmonary embolism, unspecified chronicity, unspecified pulmonary embolism type, unspecified whether acute cor pulmonale present documented in this encounter Care Teams Office Communication Professor Relationship Specialty Start Date End Date Briana Timmons, STOCK CONTROL SUPERVISOR [address] [address] PCP - General Family Medicine 08/09/21 documented as of this encounter
--- OUTSIDE RECORDS SUMMARY | 2023-11-04 15:07 | XMS_ITS | Encounter Summary ---
[place] [address] Care Team Providers Care Plastic Surgery Assistant Name Role Phone Briana Timmons APRN Primary Care Provider [phone] Encounter Details Date Type Department Care Team (Latest Contact Info) Description 10/22/2023 3:00 AM EDT Anti-Coag Telephone Visit [facility] Central[place] [address] Shasta Delaney [facility] Antiphospholipid antibody----- use antiXa level to dose [...] this encounter Progress Notes * Shasta Delaney [facility] - 10/22/2023 3:00 AM EDT Images from the original [...] High Risk Changes) Anticoagulation Summary As of 10/22/2023 INR goal: 2.5-3.5 TTR: 58.5% (6 mo) INR used for dosin.1 (10/22/2023) Warfarin maintenance plan: 5 mg (5 mg x 1) every day Weekly warfarin total: 35 mg Plan last modified: Shasta Delaney [facility] (10/22/2023) Next INR check: 10/28/2023 Priority: 1 Week Target end date: Indefinite Indications Antiphospholipid antibody----- use antiXa level to dose heparin. 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] Pulmonary embolism unspecified chronicity unspecified pulmonary embolism type unspecified whether acute cor pulmonale present [I26.99] Anticoagulation Episode Summary INR check location: Home Draw Preferred lab: LEV Send INR reminders to: [facility] Comments: Home Monitor [phone] (M) Anticoagulation Care Providers Provider Role Specialty Phone number Karel Jerry MD Responsible Cardiology [phone] Patient Assessment Service Type: INR Test Result INR Result: Out of Range Warfarin Therapy Instructions October 2023 Details Sun Mon Thu Wed Yaritza Fri Sat 1 2 3 4 5 6 7 8 9 10 11 12 13 14 15 16 17 18 5 mg See details 19 5 mg 20 5 mg 21 5 mg 22 5 mg 23 5 mg 24 5 mg 25 26 27 28 29 30 31 Date Details 10/21 This INR check Date of next INR: 10/28/2023 How to take your warfarin dose To take: 5 mg Take 1 of the 5 mg tablets. Description 10/22/2023: INR below range. I left a [...] 11/11/2023 3:00 AM EDT Anti-Coag Telephone Visit [facility] [place] [address] documented as of this encounter Visit Diagnoses Diagnosis Antiphospholipid antibody----- use antiXa level to dose heparin. Primary hypercoagulable state Aortic valve prosthesis present Heart valve replaced by other means Pulmonary embolism, unspecified chronicity, unspecified pulmonary embolism type, unspecified whether acute cor pulmonale present documented in this encounter Care Teams Plastic Surgery Assistant Relationship Specialty Start Date End Date Briana Timmons, AWNING INSTALLER [place] [place] [address] PCP - General Family Medicine 08/09/21 documented as of this encounter
--- OUTSIDE RECORDS SUMMARY | 2023-11-04 15:08 | XMS_ITS | Encounter Summary ---
[place] [address] Care Team Providers Care Warehouse Handler Name Role Phone Briana Timmons APRN Primary Care Provider [phone] Encounter Details Date Type Department Care Team (Late Contact Info) Description 06/25/2023 Orders Only Internal Medicine at [address] [phone] Shasta Dixon MD [facility] [place] [address] Social History Tobacco Use Types Packs/Day Years [...] 11/11/2023 3:00 AM EDT [place] [address] documented as of this encounter Procedures Procedure Name Priority Date/Time Associated Diagnosis Comments EXTERNAL INR RESULTS PANEL Routine 06/25/2023 9:41 AM EDT documented in this encounter Results * External INR Results Panel (06/25/2023 9:41 AM EDT) POCT INR 3.3 2.5 - 3.5 INR Comment:VioletR - Inr Result F rom iOS Mobile Application 06/25/2023 9:41 AM EDT 06/25/2023 9:41 AM EDT Shasta Dixon MD POINT OF CARE TEST ORDERABLES Performing Organization Address City/State/[facility] Co de Phone Number MDINR [address] [phone] documented in this encounter Visit Diagnoses Not on filedocumented in this encounter Care Teams Warehouse Handler Relationship Specialty Start Date End Date Briana Timmons APRN [place] [place] [address] PCP - General Family Medicine 08/09/21 documented as of this encounter
--- OUTSIDE RECORDS SUMMARY | 2023-11-04 15:08 | XMS_ITS | Encounter Summary ---
[place] [address] Care Team Providers Care Manager Stylist Name Role Phone Briana Timmons APRN Primary Care Provider [phone] Reason for Visit * Reason Comments Medication Refill Encounter Details Date Type Department Care Team (Late st Contact Info) Description 05/22/2023 Refill Cardiology at [address] [address] Karel Jerry MD [facility] [place] [address] Medication Refill Social History Tobacco Use Types Packs/Day Years [...] 11/11/2023 3:00 AM EDT Anti-Coag Telephone Visit [facility] [place] [address] documented as of this encounter Visit Diagnoses Diagnosis Aortic valve prosthesis present Heart valve replaced by other means 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
--- OUTSIDE RECORDS SUMMARY | 2023-11-04 15:08 | XMS_ITS | Encounter Summary ---
[place] [address] Care Team Providers Care Track Broom Operator Name Role Phone Briana Timmons APRN Primary Care Provider [phone] Encounter Details Date Type Department Care Team (Late Contact Info) Description 05/27/2023 Orders Only Internal Medicine at [address] [phone] Shasta Dixon MD [facility] [place] [address] Social History Tobacco Use Types Packs/Day Years [...] 11/11/2023 3:00 AM EDT [place] [phone] documented as of this encounter Procedures Procedure Name Priority Date/Time Associated Diagnosis Comments EXTERNAL INR RESULTS PANEL Routine 05/27/2023 1:21 PM EST documented in this encounter Results * External INR Results Panel (05/27/2023 1:21 PM EST) POCT INR 2.5 2.5 - 3.5 MDINR Comment:mdINR - Inr Result F rom iOS Mobile Application 05/27/2023 1:21 PM EST 05/27/2023 1:21 PM EST Shasta Dixon MD POINT OF CARE TEST ORDERABLES Performing Organization Address City/State/[facility] Co de Phone Number MDINR [address] [phone] documented in this encounter Visit Diagnoses Not on filedocumented in this encounter Care Teams Track Broom Operator Relationship Specialty Start Date End Date Briana Timmons APR[place] [place] [address] PCP - General Family Medicine 08/09/21 documented as of this encounter
--- OUTSIDE RECORDS SUMMARY | 2023-11-04 15:08 | XMS_ITS | Encounter Summary ---
[place] [address] Care Team Providers Care Assembler Ping Pong Table Name Role Phone Briana Timmons APRN Primary Care Provider [phone] Encounter Details Date Type Department Care Team (Latest Contact Info) Description 06/25/2023 3:00 AM EDT Anti-Coag Telephone Visit [facility] Centralized [place] [address] Shasta Delaney [facility] Antiphospholipid antibody----- use antiXa level to dose [...] this encounter Progress Notes * Shasta Delaney [facility] - 06/25/2023 3:00 AM EDT Images from the original note were not included. Anticoagulation Therapy Note Anticoagulation Summary As of 06/25/2023 INR goal: 2.5-3.5 TTR: 50.0% (6 mo) INR used for dosin.3 (06/25/2023) Warfarin maintenance plan: 5 mg (5 mg x 1) every day Weekly warfarin total: 35 mg Plan last modified: Kelli Hoffman RN (06/17/2023) Next INR check: 07/01/2023 Priority: 1 Week Target end date: Indefinite Indications Antiphospholipid antibody----- use antiXa level to dose heparin. 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] Pulmonary embolism unspecified chronicity unspecified pulmonary embolism type unspecified whether acute cor pulmonale present [I26.99] Anticoagulation Episode Summary INR check location: Home Draw Preferred lab: LEV Send INR reminders to: [facility] Comments: Home Monitor [phone] (M) Anticoagulation Care Providers Provider Role Specialty Phone number Karel Jerry MD Responsible Cardiology [phone] Patient Assessment Service Type: INR Test Result INR Result: In Range Clinical Outcomes Patient Findings Comments: I left a voicemail for Cecilia with instructions to call with any changes in diet, medication or health or if the dosing we have on record differs from the dose they have been taking. Also instructed to call clinic to report any missed doses. Warfarin Therapy Instructions June 2023 Details Sun Thuu Fri Sat 1 2 3 4 5 6 7 8 9 10 11 12 13 14 15 16 17 18 19 20 21 5 mg See details 22 5 mg 23 5 mg 24 5 mg 25 5 mg 26 5 mg 27 5 mg 28 29 30 31 Date Details 06/24 This INR check Date of next INR: 07/01/2023 How to take your warfarin dose To take: 5 mg Take 1 of the 5 mg tablets. Description 06/25/2023: INR in range. I left a voicemail for patient with instructions to continue on current maintenance dose of warfarin and retest INR in 1 week(s). 06/17/2023: INR below range. I spoke to patient with instructions to increase dose of warfarin 6.1% and retest INR in 1 week(s). Cecilia stated that she had no missed doses . No changes noted. 06/09 INR in range today, spoke with Cecilia, denies any changes, maintain current dose, retest 1 week. 06/04/2023: INR below range. 05/20 note somehow deleted from tracker. I spoke to patient with instructions to increase dose of warfarin 6.5% and retest INR in 1 week on 06/09. Will trial 33mg/week as quickly decreased from 35mg/week to 31mg/week. 05/27/2023: INR in range. I spoke to patient with instructions to continue on current maintenance dose of warfarin and retest INR in 1 weeks. Cecilia stated that her ecchymoses had improved and headaches have resolved. No new meds noted. 05/13/23 INR 3.5 Cecilia's phone isn't working. Spoke to Karel, her dad. Has a lot of personal stressors right now. Decreased dose slightly by 5.7 % Take 3 mg on Thu and 5 mg all other days. Onesimo salamanca Requested a recheck in 1 week 05/06 INR in range today, spoke with Cecilia, denies any changes, maintain current dose, retest 1 week. 04/29 INR slightly low today, spoke with Cecilia, denies any changes, continue maintenance dose, retest 1 week. 04/22/23 INR 4.0 Slightly high. Denies any new changes. No GI Issues. Did wake up with a headache today. Have decreased her maintenance by 5.4 % Take 4 mg today x 1, then 5 mg daily. Will recheck in 1 week documented in this encounter Plan of Treatment Upcoming Encounters Date Type Department Care Team (Late st Contact Info) Description 11/11/2023 3:00 AM EDT Anti-Coag Telephone Visit [facility] Centralized [place] [address] documented as of this encounter Visit Diagnoses Diagnosis Antiphospholipid antibody----- use antiXa level to dose heparin. Primary hypercoagulable state Aortic valve prosthesis present Heart valve replaced by other means Pulmonary embolism, unspecified chronicity, unspecified pulmonary embolism type, unspecified whether acute cor pulmonale present documented in this encounter Care Teams Assembler Ping Pong Table Relationship Specialty Start Date End Date Briana Timmons APRN [address] [place] [address] PCP - General Family Medicine 08/09/21 documented as of this encounter
--- OUTSIDE RECORDS SUMMARY | 2023-11-04 15:08 | XMS_ITS | Encounter Summary ---
[place] [address] Care Team Providers Care Fine Dining Server Name Role Phone Briana Timmons APRN Primary Care Provider [phone] Encounter Details Date Type Department Care Team (Late st Contact Info) Description 05/20/2023 Orders Only Internal Medicine at [address] [id number] Shasta Dixon MD [facility] [place] [address] Social History Tobacco Use Types Packs/Day Years [...] 11/11/2023 3:00 AM EDT [place] [phone] documented as of this encounter Procedures Procedure Name Priority Date/Time Associated Diagnosis Comments EXTERNAL INR RESULTS PANEL Routine 05/20/2023 10:20 AM EST documented in this encounter Results * External INR Results Panel (05/20/2023 10:20 AM EST) POCT INR 3.4 2.5 - 3.5 MDINR Comment:mdINR - Inr Result F rom iOS Mobile Application 05/20/2023 10:2 0 AM EST 05/20/2023 10:20 AM EST Shasta Dixon MD POINT OF CARE TEST ORDERABLES Performing Organization Address City/State/[facility] Co de Phone Number MDIN[facility] [address] [phone] documented in this encounter Visit Diagnoses Not on filedocumented in this encounter Care Teams Fine Dining Server Relationship Specialty Start Date End Date Briana Timmons APR[place] [place] [address] PCP - General Family Medicine 08/09/21 documented as of this encounter
--- OUTSIDE RECORDS SUMMARY | 2023-11-04 15:08 | XMS_ITS | Encounter Summary ---
[place] [address] Care Team Providers Care Resource Conservationist Name Role Phone Briana Timmons APRN Primary Care Provider [phone] Encounter Details Date Type Department Care Team (Latest Contact Info) Description 07/03/2023 3:00 AM EDT Anti-Coag Telephone Visit [facility] Centralized [place] [address] Shasta Delaney [facility] Antiphospholipid antibody----- use antiXa level [...] encounter Progress Notes * Shasta Delaney [facility] - 07/03/2023 3:00 AM EDT Images from the original note were not included. Anticoagulation Therapy Note Anticoagulation Summary As of 07/03/2023 INR goal: 2.5-3.5 TTR: 49.2% (6 mo) INR used for dosin.5 (07/03/2023) Warfarin maintenance plan: 3 mg (1 mg x 3) every Mon; 5 mg (5 mg x 1) all other days Weekly warfarin total: 33 mg Plan last modified: Shasta Delaney [facility] (07/03/2023) Next INR check: 07/08/2023 Target end date: Indefinite Indications Antiphospholipid antibody----- use antiXa level to dose heparin. 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] Pulmonary embolism unspecified chronicity unspecified pulmonary embolism type unspecified whether acute cor pulmonale present [I26.99] Anticoagulation Episode Summary INR check location: Home Draw Preferred lab: LEV Send INR reminders to: [facility] Comments: Home Monitor [phone] (M) Anticoagulation Care Providers Provider Role Specialty Phone number Karel Jerry MD Responsible Cardiology [phone] Patient Assessment Service Type: INR Test Result INR Result: Out of Range Clinical Outcomes Negatives: Major bleeding event, Thromboembolic event, Anticoagulation-related hospital admission, Anticoagulation-related ED visit Patient Findings Positives: Missed doses (Held x 2), Change in medications (Tylenol Arthritis) Negatives: Upcoming Travel, Planning or Currently , Recent Fall, Signs/symptoms of thrombosis, Signs/symptoms of bleeding, Laboratory test error suspected, Change in health, Change in alcoholuse, Change in activity, Upcoming invasive procedure, Emergency department visit, Upcoming dental procedure, Extra doses, Change in diet/appetite, Hospital admission, Bruising, Other complaints Warfarin Therapy Instructions June 2023 Details Thu Sat 1 2 3 4 5 6 7 8 9 10 11 12 13 14 15 16 17 18 19 20 21 22 23 24 25 26 27 28 29 5 mg See details 30 5 mg 31 5 mg Date Details 07/02 This INR check How to take your warfarin dose To take: 5 mg Take 1 of the 5 mg tablets. Warfarin Therapy Instructions July 2023 Details Thu Sat 1 3 mg 2 5 mg 3 5 mg 4 5 6 7 8 9 10 11 12 13 14 15 16 17 18 19 20 21 22 23 24 25 26 27 28 29 30 Date Details No additional details Date of next INR: 07/08/2023 How to take your warfarin dose To take: 3 mg Take 3 of the 1 mg tablets. To take: 5 mg Take 1 of the 5 mg tablets. Description 07/03/2023: INR below range. I spoke to [...] and understands when to seek medical attention. 06/25/2023: INR in range. I left a [...] salamanca Requested a recheck in 1 week documented in this encounter Plan of Treatment Upcoming Encounters Date Type Department Care Team (Late st Contact Info) Description 11/11/2023 3:00 AM EDT Anti-Coag Telephone Visit [facility] Centralized [place] [address] documented as of this encounter Visit Diagnoses Diagnosis Antiphospholipid antibody----- use antiXa level to dose heparin. Primary hypercoagulable state Aortic valve prosthesis present Heart valve replaced by other means Pulmonary embolism, unspecified chronicity, unspecified pulmonary embolism type, unspecified whether acute cor pulmonale present documented in this encounter Care Teams Resource Conservationist Relationship Specialty Start Date End Date Briana Timmons, E[place] [place] [address] PCP - General Family Medicine 08/09/21 documented as of this encounter
--- OUTSIDE RECORDS SUMMARY | 2023-11-04 15:08 | XMS_ITS | Encounter Summary ---
[place] [address] Care Team Providers Care Pretzel Twister Name Role Phone Briana Timmons APRN Primary Care Provider Encounter Details Date Type Department Care Team (Latest Contact Info) Description 04/08/2023 3:00 AM EST Anti-Coag Telephone Visit [facility] [place] [address], RN Antiphospholipid antibody----- [...] Progress Notes * Tucker Lane RN - 04/08/2023 3:00 AM EST Images from the original note were not included. Anticoagulation Therapy Note Anticoagulation Summary As of 04/08/2023 INR goal: 2.5-3.5 TTR: 44.2% (6 mo) INR used for dosin.7 (04/08/2023) Warfarin maintenance plan: 6 mg (5 mg x 1 and 1 mg x 1) every Thu, Thu; 5 mg (5 mg x 1) all other days Weekly warfarin total: 37 mg Plan last modified: Tucker Lane RN (02/23/2023) Next INR check: 04/15/2023 Priority: 1 Week Target end date: Indefinite Indications Antiphospholipid antibody----- use antiXa level to dose heparin. 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] Pulmonary embolism unspecified chronicity unspecified pulmonary embolism type unspecified whether acute cor pulmonale present [I26.99] Anticoagulation Episode Summary INR check location: Home Draw Preferred lab: LEV Send INR reminders to: [facility] Comments: Home Monitor [phone] (M) Anticoagulation Care Providers Provider Role Specialty Phone number Karel Jerry MD Responsible Cardiology [phone] Patient Assessment Service Type: INR Test Result INR Result: Out of Range Clinical Outcomes Negatives: Major bleeding event, Thromboembolic event, Anticoagulation-related hospital admission, Anticoagulation-related ED visit Patient Findings Positives: Change in health (diarrhea, still has flu), Change in medications (tylenol) Negatives: Upcoming Travel, Planning or Currently , Recent Fall, Signs/symptoms of thrombosis, Signs/symptoms of bleeding, Laboratory test error suspected, Change in alcohol use, Change in activity, Upcoming invasive procedure, Emergency department visit, Upcoming dental procedure, Missed doses, Extra doses, Change in diet/appetite, Hospital admission, Bruising, Other complaints Warfarin Therapy Instructions April 2023 Details Sun Mon Thu Yaritza Fri Sat 1 2 3 4 mg See details 4 4 mg 5 5 mg 6 5 mg 7 5 mg 8 6 mg 9 5 mg 10 6 mg 11 12 13 14 15 16 17 18 19 20 21 22 23 24 25 26 27 28 29 30 31 Date Details 04/08 This INR check Date of next INR: 04/15/2023 How to take your warfarin dose To take: 4 mg Take 4 of the 1 mg tablets. To take: 5 mg Take 1 of the 5 mg tablets. To take: 6 mg Take 1 of the 5 mg tablets and 1 of the 1 mg tablets. Description 04/08 INR slightly elevated, spoke with Cecilia, reports she is still not feeling well, still taking tylenol, had 2 instances of diarrhea yesterday, reports she will follow up with her doctor if she doesnot feel better by the end of the week, denies other changes, one time 8% decrease from maintenancedose, retest 1 week. 04/01 INR supratherapeutic. Spoke to Cecilia - She reports has been sick and taking is taking Tylenolfor cough, runny nose, and headache since 03/28; she did test for COVID and it was neg; She will beseeing her doctor tomorrow and understands to call [facility] with any med changes. She reports an increase in bruising but otherwise denies any s/sx of bleeding, stroke, or TE. Since she is high risk for TE with +APA, instructed her to take a 1x lower warfarin dose today of 4mg (5.4% decrease for this week) then continue current weekly warfarin dose of 37mg/wk and recheck INR in 1wk. 03/23/23: INR slightly below range. Continue on current dose and test INR in 1 week. documented in this encounter Plan of Treatment Upcoming Encounters Date Type Department Care Team (Late st Contact Info) Description 11/11/2023 3:00 AM EDT Anti-Coag Telephone Visit [facility] [place] [phone] documented as of this encounter Visit Diagnoses Diagnosis Antiphospholipid antibody----- use antiXa level to dose heparin. 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
--- OUTSIDE RECORDS SUMMARY | 2023-11-04 15:08 | XMS_ITS | Encounter Summary ---
[place] [address] Care Team Providers Care Railroad Cook Name Role Phone Briana Timmons APRN Primary Care Provider [phone] Encounter Details Date Type Department Care Team (Late st Contact Info) Description 07/10/2023 Orders Only Internal Medicine at [address] [phone] Shasta Dixon MD [facility] [place] [address] Social History Tobacco Use Types Packs/Day Years [...] 11/11/2023 3:00 AM EDT [place] [phone] documented as of this encounter Procedures Procedure Name Priority Date/Time Associated Diagnosis Comments EXTERNAL INR RESULTS PANEL Routine 07/10/2023 1:16 PM EDT documented in this encounter Results * (ABNORMAL) External INR Results Panel (07/10/2023 1:16 PM EDT) POCT INR 1.2(L) 2.5 - 3.5 MDINR Comment:mdINR - Inr Result F rom iOS Mobile Application 07/10/2023 1:16 PM EDT 07/10/2023 1:16 PM EDT Shasta Dixon MD POINT OF CARE TEST ORDERABLES Performing Organization Address City/State/[facility] Co de Phone Number MDINR [address] [phone] documented in this encounter Visit Diagnoses Not on filedocumented in this encounter Care Teams Railroad Cook Relationship Specialty Start Date End Date Briana Timmons, COURT COMMISSIONER [address] [place] [address] PCP - General Family Medicine 08/09/21 documented as of this encounter
--- OUTSIDE RECORDS SUMMARY | 2023-11-04 15:08 | XMS_ITS | Encounter Summary ---
[place] [address] Care Team Providers Care Intermediate School Teacher Name Role Phone Briana Timmons APRN Primary Care Provider [phone] Encounter Details Date Type Department Care Team (Late st Contact Info) Description 06/18/2023 [place] [address] Allison Nuñez RN Social History Tobacco Use Types Packs/Day Years [...] Telephone Encounter - Allison Nuñez RN - 06/18/2023 3:33 PM EDT RT to the patient. The patient needs the syringes for the injections of the Methotrexate weekly, not the medication. Also, the patient had to cancel as the [facility] bus staff refused ride, saying there was some lapse in coverage. Nurse advised her to contact Disability to check on this, talk to a account executive sales representative to make sure coverage was continued. The patient agreed. Message and pended RX Syringes sent to Dr Baugh * Telephone Encounter - Allison Nuñez RN - 06/18/2023 3:04 PM EDT Copied from [facility] #[id number]. Topic: Specialty Dept CRMs - Generic Call >> Jun 18, 2023 1:58 PM Waleska Montiel wrote: Specialist: Lupis Relationship (if other than patient-full name): self Reason for Call: Patient is calliong regaridng her metHOTREXate 25 mg/mL Solution, she stated her insurance would cover it if it were written a certain way and would like to discuss with a nurse documented in this encounter Plan of Treatment Upcoming Encounters Date Type Department Care Team (Late st Contact Info) Description 11/11/2023 3:00 AM EDT Anti-Coag Telephone Visit [facility] [place] [address] documented as of this encounter Visit Diagnoses Not on filedocumented in this encounter Care Teams Intermediate School Teacher Relationship Specialty Start Date End Date Briana Timmons [place] [address] PCP - General Family Medicine 08/09/21 documented as of this encounter
--- OUTSIDE RECORDS SUMMARY | 2023-11-04 15:08 | XMS_ITS | Encounter Summary ---
[place] [address] Care Team Providers Care Research Physician Name Role Phone Briana Timmons APRN Primary Care Provider [phone] Encounter Details Date Type Department Care Team (Latest Contact Info) Description 07/01/2023 3:00 AM EDT Anti-Coag Telephone Visit [facility] Centralized [place] [address] Shasta Delaney [facility] Antiphospholipid antibody----- use antiXa level to [...] this encounter Progress Notes * Shasta Delaney [facility] - 07/01/2023 3:00 AM EDT Images from the original note were not included. Anticoagulation Therapy Note Anticoagulation Summary As of 07/01/2023 INR goal: 2.5-3.5 TTR: 49.0% (6 mo) INR used for dosin.2 (07/01/2023) Warfarin maintenance plan: 5 mg (5 mg x 1) every day Weekly warfarin total: 35 mg Plan last modified: Kelli Hoffman RN (06/17/2023) Next INR check: 07/03/2023 Target end date: Indefinite Indications Antiphospholipid antibody----- use antiXa level to dose heparin. 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] Pulmonary embolism unspecified chronicity unspecified pulmonary embolism type unspecified whether acute cor pulmonale present [I26.99] Anticoagulation Episode Summary INR check location: Home Draw Preferred lab: LEV Send INR reminders to: [facility] Comments: Home Monitor [phone] (M) Anticoagulation Care Providers Provider Role Specialty Phone number Karel Jerry MD Responsible Cardiology [phone] Patient Assessment Service Type: INR Test Result INR Result: Out of Range Clinical Outcomes Negatives: Major bleeding event, Thromboembolic event, Anticoagulation-related hospital admission, Anticoagulation-related ED visit Patient Findings Positives: Missed doses (Hold x 2 doses), Change in medications (Tylenol Arthritis - 2 tabs BID), Change in diet/appetite (slightly decreased) Negatives: Upcoming Travel, Planning or Currently , Recent Fall, Signs/symptoms of thrombosis, Signs/symptoms of bleeding, Laboratory test error suspected, Change in health, Change in alcoholuse, Change in activity, Upcoming invasive procedure, Emergency department visit, Upcoming dental procedure, Extra doses, Hospital admission, Bruising, Other complaints Warfarin Therapy Instructions June 2023 Details Sun Mon Thu Wed Yaritza Fri Sat 1 2 3 4 5 6 7 8 9 10 11 12 13 14 15 16 17 18 19 20 21 22 23 24 25 26 27 Hold See details 28 Hold 29 5 mg 30 31 Date Details 06/30 This INR check Date of next INR: 07/03/2023 How to take your warfarin dose To take: 5 mg Take 1 of the 5 mg tablets. Hold Do not take your warfarin dose. See the Details table to the right for additional instructions. Description 07/01/2023: INR above range. I spoke to [...] 3:00 AM EDT Anti-Coag Telephone Visit [facility] Centralized [place] [address] documented as of this encounter Visit Diagnoses Diagnosis Antiphospholipid antibody----- use antiXa level to dose heparin. Primary hypercoagulable state Aortic valve prosthesis present Heart valve replaced by other means Pulmonary embolism, unspecified chronicity, unspecified pulmonary embolism type, unspecified whether acute cor pulmonale present documented in this encounter Care Teams Research Physician Relationship Specialty Start Date End Date Briana Timmons, LAND SURVEYOR MANAGER [address] [place] [address] PCP - General Family Medicine 08/09/21 documented as of this encounter
--- OUTSIDE RECORDS SUMMARY | 2023-11-04 15:08 | XMS_ITS | Encounter Summary ---
[place] [address] Care Team Providers Care Modern Dancer Name Role Phone Briana Timmons APRN Primary Care Provider [phone] Encounter Details Date Type Department Care Team (Latest Contact Info) Description 06/10/2023 3:00 AM EST Anti-Coag Telephone Visit [facility] Centralized [place] [address], RN Antiphospholipid antibody----- [...] Progress Notes * Tucker Lane RN - 06/10/2023 3:00 AM EST Images from the original note were not included. Anticoagulation Therapy Note Anticoagulation Summary As of 06/10/2023 INR goal: 2.5-3.5 TTR: 48.6% (6 mo) INR used for dosin.5 (06/10/2023) Warfarin maintenance plan: 3 mg (1 mg x 3) every Wed; 5 mg (5 mg x 1) all other days Weekly warfarin total: 33 mg No change documented: Tucker Lane RN Plan last modified: Ramón Castillo [facility] (06/04/2023) Next INR check: 06/17/2023 Priority: 1 Week Target end date: Indefinite Indications Antiphospholipid antibody----- use antiXa level to dose heparin. 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] Pulmonary embolism unspecified chronicity unspecified pulmonary embolism type unspecified whether acute cor pulmonale present [I26.99] Anticoagulation Episode Summary INR check location: Home Draw Preferred lab: LEV Send INR reminders to: [facility] Comments: Home Monitor [phone] (M) Anticoagulation Care Providers Provider Role Specialty Phone number Karel Jerry MD Responsible Cardiology [phone] Patient Assessment Service Type: INR Test Result [...] Therapy Instructions June 2023 Details Sun Mon Tue Wed Yaritza Fri Sat 1 2 3 4 5 6 3 mg See details 7 5 mg 8 5 mg 9 5 mg 10 5 mg 11 5 mg 12 5 mg 13 3 mg 14 15 16 17 18 19 20 21 22 23 24 25 26 27 28 29 30 31 Date Details 06/09 This INR check Date of next INR: 06/17/2023 How to take your warfarin dose To take: 3 mg Take 3 of the 1 mg tablets. To take: 5 mg Take 1 of the 5 mg tablets. Description 06/09 INR in range today, spoke with [...] 11/11/2023 3:00 AM EDT Anti-Coag Telephone Visit [facility] Centralized [place] [address] documented as of this encounter Visit Diagnoses Diagnosis Antiphospholipid antibody----- use antiXa level to dose heparin. Primary hypercoagulable state Aortic valve prosthesis present Heart valve replaced by other means Pulmonary embolism, unspecified chronicity, unspecified pulmonary embolism type, unspecified whether acute cor pulmonale present documented in this encounter Care Teams Modern Dancer Relationship Specialty Start Date End Date Briana Timmons APRN [address] [place] [address] PCP - General Family Medicine 08/09/21 documented as of this encounter
--- OUTSIDE RECORDS SUMMARY | 2023-11-04 15:08 | XMS_ITS | Encounter Summary ---
[place] [address] Care Team Providers Care Organic Preparation Technician Name Role Phone Briana Timmons APRN Primary Care Provider [phone] Encounter Details Date Type Department Care Team (Late Contact Info) Description 06/04/2023 Orders Only Internal Medicine at [address] [phone] Shasta Dixon MD [facility] [place] [address] Social History Tobacco Use Types Packs/Day Years [...] 11/11/2023 3:00 AM EDT [place] [phone] documented as of this encounter Procedures Procedure Name Priority Date/Time Associated Diagnosis Comments EXTERNAL INR RESULTS PANEL Routine 06/04/2023 12:08 PM EST documented in this encounter Results * (ABNORMAL) External INR Results Panel (06/04/2023 12:08 PM EST) POCT INR 2.3(L) 2.5 - 3.5 MDINR Comment:mdINR - Inr Result F rom iOS Mobile Application 06/04/2023 12:0 8 PM EST 06/04/2023 12:08 PM EST Shasta Dixon MD POINT OF CARE TEST ORDERABLES Performing Organization Address City/State/[facility] Co de Phone Number MDINR [address] [phone] documented in this encounter Visit Diagnoses Not on filedocumented in this encounter Care Teams Organic Preparation Technician Relationship Specialty Start Date End Date Briana Timmons, FAST FOODS WORKER [address] [place] [address] PCP - General Family Medicine 08/09/21 documented as of this encounter
--- OUTSIDE RECORDS SUMMARY | 2023-11-04 15:08 | XMS_ITS | Encounter Summary ---
[place] [address] Care Team Providers Care Entry Level Financial Analyst Name Role Phone Briana Timmons APRN Primary Care Provider [phone] Encounter Details Date Type Department Care Team (Late Contact Info) Description 05/13/2023 Orders Only Internal Medicine at [address] [phone] Shasta Dixon MD [facility] [place] [address] Social History Tobacco Use Types Packs/Day Years [...] 11/11/2023 3:00 AM EDT [place] [phone] documented as of this encounter Procedures Procedure Name Priority Date/Time Associated Diagnosis Comments EXTERNAL INR RESULTS PANEL Routine 05/13/2023 11:31 AM EST documented in this encounter Results * External INR Results Panel (05/13/2023 11:31 AM EST) POCT INR 3.5 2.5 - 3.5 MDINR Comment:INR - Inr Result F rom iOS Mobile Application 05/13/2023 11:3 1 AM EST 05/13/2023 11:31 AM EST Shasta Dixon MD POINT OF CARE TEST ORDERABLES Performing Organization Address City/State/[facility] Co de Phone Number MDINR [address] [phone] documented in this encounter Visit Diagnoses Not on filedocumented in this encounter Care Teams Entry Level Financial Analyst Relationship Specialty Start Date End Date Briana Timmons [place] [place] [address] PCP - General Family Medicine 08/09/21 documented as of this encounter
--- OUTSIDE RECORDS SUMMARY | 2023-11-04 15:08 | XMS_ITS | Encounter Summary ---
[place] [address] Care Team Providers Care Test Automation Architect Name Role Phone Briana Timmons APRN Primary Care Provider [phone] Reason for Visit * Reason Onset Date Comments Other 03/20/2023 Encounter Details Date Type Department Care Team (Late st Contact Info) Description 03/20/2023 [place] [address] Juventino Grajeda RN Other Social History Tobacco Use Types Packs/Day Years [...] encounter Miscellaneous Notes * Telephone Encounter - Juventino Grajeda RN - 03/20/2023 12:52 PM EST Copied from CRM #[id number]. Topic: Specialty Dept CRMs - Orders >> Mar 20, 2023 11:17 AM Damián Tan wrote: Orders Request Specialist: Dr. Baugh Relationship (if other than patient-full name): self Type of Request: [x] Send orders Type/Name of Order: Imaging If Labs and Imaging list name of specific test(s): Dexa Scan Date of Lab/Imaging/Testing Appt: Date of Provider Appt: Appt Type with Provider: OCTAVIO Patient Requesting to Have Orders Sent to Facility Outside of [facility]: Yes If Yes, Name of Facility: [facility] Address: [address] [place] [address] Phone #: [phone] Fax #: [phone] Will forward to Coal Handler to fax as requested. documented in this encounter Plan of Treatment Upcoming Encounters Date Type Department Care Team (Late st Contact Info) Description 11/11/2023 3:00 AM EDT Anti-[place] [phone] documented as of this encounter Visit Diagnoses Not on filedocumented in this encounter Care Teams Test Automation Architect Relationship Specialty Start Date End Date Briana Timmons APRN [address] [place], [place] [id number] PCP - General Family Medicine 08/09/21 documented as of this encounter
--- OUTSIDE RECORDS SUMMARY | 2023-11-04 15:08 | XMS_ITS | Encounter Summary ---
[place] [address] Care Team Providers Care Media Developer Name Role Phone Briana Timmons APRN Primary Care Provider [phone] Encounter Details Date Type Department Care Team (Late st Contact Info) Description 07/22/2023 External Results [facility] [place] [address] Ana Lilia Londono Social History Tobacco Use Types Packs/Day Years [...] 11/11/2023 3:00 AM EDT Anti-Coag Telephone Visit [facility] [place] [address] documented as of this encounter Procedures Procedure Name Priority Date/Time Associated Diagnosis Comments EXTERNAL INR RESULTS PANEL Routine 07/22/2023 1:30 PM EDT documented in this encounter Results * External INR Results Panel (07/22/2023 1:30 PM EDT) POCT INR 3.2 0.9 - 1.1 EXTERNAL LAB Comment:[facility] Blood 07/22/2023 1:30 PM EDT Historical Provider POINT OF CARE GERSON T ORDERABLES EXTERNAL LAB documented in this encounter Visit Diagnoses Not on filedocumented in this encounter Care Teams Media Developer Relationship Specialty Start Date End Date Briana Timmons, CAD MANAGER [place] [place] [address] PCP - General Family Medicine 08/09/21 documented as of this encounter
--- OUTSIDE RECORDS SUMMARY | 2023-11-04 15:08 | XMS_ITS | Encounter Summary ---
[place] [address] Care Team Providers Care Campaign Marketing Manager Name Role Phone Briana Timmons APRN Primary Care Provider [phone] Encounter Details Date Type Department Care Team (Latest Contact Info) Description 03/23/2023 3:00 AM EST Anti-Coag Telephone Visit [facility] Central[place] [phone] Shasta Delaney [facility] Antiphospholipid antibody----- use antiXa level to dose [...] as of this encounter Progress Notes * Shatsa Delaney [facility] - 03/23/2023 3:00 AM EST Images from the original note were not included. Anticoagulation Therapy Note Anticoagulation Summary As of 03/23/2023 INR goal: 2.5-3.5 TTR: 47.0% (6 mo) INR used for dosin.3 (03/23/2023) Warfarin maintenance plan: 6 mg (5 mg x 1 and 1 mg x 1) every Thu, Thu; 5 mg (5 mg x 1) all other days Weekly warfarin total: 37 mg Plan last modified: Tucker Lane RN (02/23/2023) Next INR check: 03/31/2023 Priority: 1 Week Target end date: Indefinite Indications Antiphospholipid antibody----- use antiXa level to dose heparin. 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] Pulmonary embolism unspecified chronicity unspecified pulmonary embolism type unspecified whether acute cor pulmonale present [I26.99] Anticoagulation Episode Summary INR check location: Home Draw Preferred lab: LEV Send INR reminders to: [facility] Comments: Home Monitor [phone] (M) Anticoagulation Care Providers Provider Role Specialty Phone number Karel Jerry MD Responsible Cardiology [phone] Patient Assessment Service Type: INR Test Result INR Result: Out of Range Warfarin Therapy Instructions March 2023 Details Sun Thu Yaritza Fri Sat 1 2 3 4 5 6 7 8 9 10 11 12 13 14 15 16 17 18 6 mg See details 19 5 mg 20 6 mg 21 5 mg 22 5 mg 23 5 mg 24 5 mg 25 6 mg 26 5 mg 27 28 29 30 31 Date Details 03/23 This INR check Date of next INR: 03/31/2023 How to take your warfarin dose To take: 5 mg Take 1 of the 5 mg tablets. To take: 6 mg Take 1 of the 5 mg tablets and 1 of the 1 mg tablets. Description 03/23/23: INR slightly below range. Continue on current dose and test INR in 1 week. 03/16 INR in range today, spoke with Cecilia, denies any changes, maintain current dose, retest 1 week. 03/09 INR in range today, spoke with Cecilia, denies any changes, maintain current dose, retest 1 week. 03/02 INR in range today, spoke with Cecilia, denies any changes, maintain current dose, retest 1 week. 02/23 INR still slightly low, spoke with Cecilia, denies any changes, denies missed doses, increase maintenance dose 2.8%, retest 1 week. 02/16 INR slightly below range. Increase dose 2.9% and retest in 1 week. 02/09 INR low today following dose hold, spoke with Cecilia, denies any changes, diarrhea has resolved, resume maintenance dose, retest 1 week. 02/03/23: INR above range after 3 days of diarrhea. It has since resolved, no other changes reported. Hold x 1 dose (14%) and then resume 5mg daily. Test INR in 6 days. 01/26 INR in range today, spoke with Cecilia, denies any changes, maintain current dose, retest 1 week. 01/19: INR remains in range today. There are no records of recent ED visit in system - she does not reside in an area where I would have shared access to patient files ([facility]). Continue with 5mg daily, test INR in 1 week (home monitor). 01/12 INR in range today, spoke with Cecilia, reports she is in the ED currently for coughing/illness,she agrees to call us to update the clinic with any changes, maintain current dose, retest 1 week. documented in this encounter Plan of Treatment Upcoming Encounters Date Type Department Care Team (Late st Contact Info) Description 11/11/2023 3:00 AM EDT Anti-Coag Telephone Visit [facility] [place] [address] documented as of this encounter Visit Diagnoses Diagnosis Antiphospholipid antibody----- use antiXa level to dose heparin. 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
--- OUTSIDE RECORDS SUMMARY | 2023-11-04 15:08 | XMS_ITS | Encounter Summary ---
[place] [address] Care Team Providers Care Traffic Expert Name Role Phone Briana Timmons APRN Primary Care Provider [phone] Encounter Details Date Type Department Care Team (Latest Contact Info) Description 06/17/2023 3:00 AM EDT Anti-Coag Telephone Visit [facility] [place] [address] Kelli Hoffman, RN Antiphospholipid antibody----- [...] Progress Notes * Kelli Hoffman RN - 06/17/2023 3:00 AM EDT Images from the original note were not included. Anticoagulation Therapy Telephone Note: Anticoagulation Summary As of 06/17/2023 INR goal: 2.5-3.5 TTR: 46.9% (6 mo) INR used for dosin.4 (06/17/2023) Warfarin maintenance plan: 5 mg (5 mg x 1) every day Weekly warfarin total: 35 mg Plan last modified: Kelli Hoffman RN (06/17/2023) Next INR check: 06/24/2023 Priority: 1 Week Target end date: Indefinite Indications Antiphospholipid antibody----- use antiXa level to dose heparin. 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] Pulmonary embolism unspecified chronicity unspecified pulmonary embolism type unspecified whether acute cor pulmonale present [I26.99] Anticoagulation Episode Summary INR check location: Home Draw Preferred lab: LEV Send INR reminders to: [facility] Comments: Home Monitor [phone] (M) Anticoagulation Care Providers Provider Role Specialty Phone number Karel Jerry MD Responsible Cardiology [phone] Patient Assessment Service Type: INR Test Result [...] Warfarin Therapy Instructions June 2023 Details Sun Thu Sat 1 2 3 4 5 6 7 8 9 10 11 12 13 5 mg See details 14 5 mg 15 5 mg 16 5 mg 17 5 mg 18 5 mg 19 5 mg 20 5 mg 21 22 23 24 25 26 27 28 29 30 31 Date Details 06/16 This INR check Date of next INR: 06/24/2023 How to take your warfarin dose To take: 5 mg Take 1 of the 5 mg tablets. Description 06/17/2023: INR below range. I spoke to [...] 11/11/2023 3:00 AM EDT Anti-Coag Telephone Visit [facility] [place] [address] documented as of this encounter Visit Diagnoses Diagnosis Antiphospholipid antibody----- use antiXa level to dose heparin. Primary hypercoagulable state Aortic valve prosthesis present Heart valve replaced by other means Pulmonary embolism, unspecified chronicity, unspecified pulmonary embolism type, unspecified whether acute cor pulmonale present documented in this encounter Care Teams Traffic Expert Relationship Specialty Start Date End Date Briana Timmons, [place]ICAL [place] [address] PCP - General Family Medicine 08/09/21 documented as of this encounter
--- OUTSIDE RECORDS SUMMARY | 2023-11-04 15:08 | XMS_ITS | Encounter Summary ---
[place] [address] Care Team Providers Care Senior Medical Director Name Role Phone Briana Timmons APRN Primary Care Provider [phone] Encounter Details Date Type Department Care Team (Latest Contact Info) Description 06/04/2023 3:00 AM EST Anti-Coag Telephone Visit [facility] [place] [address] Ramón Castillo [facility] Antiphospholipid antibody----- use antiXa level to dose [...] as of this encounter Progress Notes * Ramón Castillo [facility] - 06/04/2023 3:00 AM EST Images from the original note were not included. Anticoagulation Therapy Note Anticoagulation Summary As of 06/04/2023 INR goal: 2.5-3.5 TTR: 48.9% (6 mo) INR used for dosin.3 (06/04/2023) Warfarin maintenance plan: 3 mg (1 mg x 3) every Wed; 5 mg (5 mg x 1) all other days Weekly warfarin total: 33 mg Plan last modified: Ramón Castillo, [facility] (06/04/2023) Next INR check: 06/10/2023 Priority: 1 Week Target end date: Indefinite Indications Antiphospholipid antibody----- use antiXa level to dose heparin. 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] Pulmonary embolism unspecified chronicity unspecified pulmonary embolism type unspecified whether acute cor pulmonale present [I26.99] Anticoagulation Episode Summary INR check location: Home Draw Preferred lab: LEV Send INR reminders to: [facility] Comments: Home Monitor [phone] (M) Anticoagulation Care Providers Provider Role Specialty Phone number Krael Jerry MD Responsible Cardiology [phone] Patient Assessment Service Type: INR Test Result INR Result: Out of Range Clinical Outcomes Patient Findings Comments: Additional dose decrease while in range due to bruising/headaches. INR has continually dropped, will increase dose slightly as patient tests weekly. Warfarin Therapy Instructions May 2023 Details Thu Fri Sat 1 2 3 4 5 6 7 8 9 10 11 12 13 14 15 16 17 18 19 20 21 22 23 24 25 26 27 28 29 5 mg See details Date Details This INR check How to take your warfarin dose To take: 5 mg Take 1 of the 5 mg tablets. Warfarin Therapy Instructions June 2023 Details Thu Fri Sat 1 5 mg 2 5 mg 3 5 mg 4 5 mg 5 5 mg 6 3 mg 7 8 9 10 11 12 13 14 15 16 17 18 19 20 21 22 23 24 25 26 27 28 29 30 31 Date Details No additional details Date of next INR: 06/10/2023 How to take your warfarin dose To take: 3 mg Take 3 of the 1 mg tablets. To take: 5 mg Take 1 of the 5 mg tablets. Description 06/04/2023: INR below range. 05/20 note somehow [...] mg daily. Will recheck in 1 week 04/15 INR in range today, left VM for Cecilia to call the clinic if she is still having GI symptoms orstill taking tylenol or to report any new changes, otherwise we will resume maintenance dose, retest 1 week. Addendum: Cecilia called back and reported she has stopped tylenol and all symptoms have resolved, diet is at baseline, denies other changes, agrees with the plan. 04/08 INR slightly elevated, spoke with Cecilia, reports she is still not feeling well, still taking tylenol, had 2 instances of diarrhea yesterday, reports she will follow up with her doctor if she doesnot feel better by the end of the week, denies other changes, one time 8% decrease from maintenancedose, retest 1 week. documented in this encounter Plan of Treatment Upcoming Encounters Date Type Department Care Team (Late st Contact Info) Description 11/11/2023 3:00 AM EDT Anti-Coag Telephone Visit [facility] [place] [address] documented as of this encounter Visit Diagnoses Diagnosis Antiphospholipid antibody----- use antiXa level to dose heparin. Primary hypercoagulable state Aortic valve prosthesis present Heart valve replaced by other means Pulmonary embolism, unspecified chronicity, unspecified pulmonary embolism type, unspecified whether acute cor pulmonale present documented in this encounter Care Teams Senior Medical Director Relationship Specialty Start Date End Date Briana Timmons, TECHNICAL ACCOUNT EXECUTIVE [place] [place] [address] PCP - General Family Medicine 08/09/21 documented as of this encounter
--- OUTSIDE RECORDS SUMMARY | 2023-11-04 15:08 | XMS_ITS | Encounter Summary ---
[place] [address] Care Team Providers Care Aircraft Delivery Checker Name Role Phone Briana Timmons APRN Primary Care Provider [phone] Encounter Details Date Type Department Care Team (Late Contact Info) Description 04/01/2023 Orders Only Internal Medicine at [address] [phone] Shasta Dixon MD [facility] [place] [address] Social History Tobacco Use Types Packs/Day Years [...] 11/11/2023 3:00 AM EDT [place] [address] documented as of this encounter Procedures Procedure Name Priority Date/Time Associated Diagnosis Comments EXTERNAL INR RESULTS PANEL Routine 04/01/2023 2:21 PM EST documented in this encounter Results * (ABNORMAL) External INR Results Panel (04/01/2023 2:21 PM EST) POCT INR 3.9(H) 2.5 - 3.5 MDINR Comment:mdINR - Inr Result F rom Android Mobile Application 04/01/2023 2:21 PM EST 04/01/2023 2:21 PM EST Shasta Dixon MD POINT OF CARE TEST ORDERABLES Performing Organization Address City/State/[facility] Co de Phone Number MDINR [address] [phone] documented in this encounter Visit Diagnoses Not on filedocumented in this encounter Care Teams Aircraft Delivery Checker Relationship Specialty Start Date End Date Briana Timmons, ANALYTIC PROGRAMMER [place] [place] [address] PCP - General Family Medicine 08/09/21 documented as of this encounter
--- OUTSIDE RECORDS SUMMARY | 2023-11-04 15:08 | XMS_ITS | Encounter Summary ---
[place] [address] Care Team Providers Care Warehousing Technician Name Role Phone Briana Timmons APRN Primary Care Provider [phone] Encounter Details Date Type Department Care Team (Latest Contact Info) Description 05/06/2023 3:00 AM EST Anti-Coag Telephone Visit [facility] [place] [address], RN Antiphospholipid antibody----- [...] Progress Notes * Tucker Lane RN - 05/06/2023 3:00 AM EST Images from the original note were not included. Anticoagulation Therapy Telephone Note: Anticoagulation Summary As of 05/06/2023 INR goal: 2.5-3.5 TTR: 41.7% (6 mo) INR used for dosin.8 (05/06/2023) Warfarin maintenance plan: 5 mg (5 mg x 1) every day Weekly warfarin total: 35 mg No change documented: Tucker Lane RN Plan last modified: Kelli Hoffman RN (04/22/2023) Next INR check: 05/13/2023 Priority: 1 Week Target end date: Indefinite Indications Antiphospholipid antibody----- use antiXa level to dose heparin. 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] Pulmonary embolism unspecified chronicity unspecified pulmonary embolism type unspecified whether acute cor pulmonale present [I26.99] Anticoagulation Episode Summary INR check location: Home Draw Preferred lab: LEV Send INR reminders to: [facility] Comments: Home Monitor [phone] (M) Anticoagulation Care Providers Provider Role Specialty Phone number Karel Jerry MD Responsible Cardiology [phone] Patient Assessment Service Type: INR Test Result [...] complaints Warfarin Therapy Instructions April 2023 Details Thu Sat 1 2 3 4 5 6 7 8 9 10 11 12 13 14 15 16 17 18 19 20 21 22 23 24 25 26 27 28 29 30 31 5 mg See details Date Details 05/06 This INR check How to take your warfarin dose To take: 5 mg Take 1 of the 5 mg tablets. Warfarin Therapy Instructions May 2023 Details Thu Fri Sat 1 5 mg 2 5 mg 3 5 mg 4 5 mg 5 5 mg 6 5 mg 7 5 mg 8 9 10 11 12 13 14 15 16 17 18 19 20 21 22 23 24 25 26 27 28 29 Date Details No additional details Date of next INR: 05/13/2023 How to take your warfarin dose To take: 5 mg Take 1 of the 5 mg tablets. Description 05/06 INR in range today, spoke with [...] her doctor tomorrow and understands to call [facility] with any med changes. She reports an [...] Telephone Visit [facility] [place] [address] documented as of this encounter Visit Diagnoses Diagnosis Antiphospholipid antibody----- use antiXa level to dose heparin. Primary hypercoagulable state Aortic valve prosthesis present Heart valve replaced by other means Pulmonary embolism, unspecified chronicity, unspecified pulmonary embolism type, unspecified whether acute cor pulmonale present documented in this encounter Care Teams Warehousing Technician Relationship Specialty Start Date End Date Briana Timmons, INFORMATION ASSURANCE SPECIALIST [address] [place] [address] PCP - General Family Medicine 08/09/21 documented as of this encounter
--- OUTSIDE RECORDS SUMMARY | 2023-11-04 15:08 | XMS_ITS | Encounter Summary ---
Author [place] [address] Care Team Providers Care Grain Picker Name Role Phone Briana Timmons APRN Primary Care Provider [phone] Encounter Details Date Type Department Care Team (Late st Contact Info) Description 06/18/2023 Telephone [place] [address] Lindsey Terrell Social History Tobacco Use Types Packs/Day Years [...] encounter Miscellaneous Notes * Telephone Encounter - Lindsey Terrell - 06/18/2023 4:09 PM EDT Received call from patient to cancel her appointment: ECHO - S/P AVR 1Y f/u ( pt) (Eveline) Pt got a call from her insurance company stating that her plan was cancelled. Pt will call to reschedule when she has coverage again. Sent FYI letter. documented in this encounter Plan of Treatment Upcoming Encounters Date Type Department Care Team (Late st Contact Info) Description 11/11/2023 3:00 AM EDT Anti-Coag Telephone Visit [facility] [place] [address] documented as of this encounter Visit Diagnoses Not on filedocumented in this encounter Care Teams Grain Picker Relationship Specialty Start Date End Date Briana Timmons, TREASURY REPRESENTATIVE [address] [place] [address] PCP - General Family Medicine 08/09/21 documented as of this encounter
--- OUTSIDE RECORDS SUMMARY | 2023-11-04 15:08 | XMS_ITS | Encounter Summary ---
[place] [address] Care Team Providers Care Opticianry Teacher Name Role Phone Briana Timmons APRN Primary Care Provider [phone] Encounter Details Date Type Department Care Team (Latest Contact Info) Description 04/22/2023 3:00 AM EST Anti-Coag Telephone Visit [facility] [place] [address] Kelli Hoffman, RN Antiphospholipid antibody----- [...] of this encounter Progress Notes * Kelli Hoffman, RN - 04/22/2023 3:00 AM EST Images from the original note were not included. Anticoagulation Therapy Telephone Note: Anticoagulation Summary As of 04/22/2023 INR goal: 2.5-3.5 TTR: 40.5% (6 mo) INR used for dosin (04/22/2023) Warfarin maintenance plan: 5 mg (5 mg x 1) every day Weekly warfarin total: 35 mg Plan last modified: Kelli Hoffman RN (04/22/2023) Next INR check: 04/29/2023 Priority: 1 Week Target end date: Indefinite Indications Antiphospholipid antibody----- use antiXa level to dose heparin. 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] Pulmonary embolism unspecified chronicity unspecified pulmonary embolism type unspecified whether acute cor pulmonale present [I26.99] Anticoagulation Episode Summary INR check location: Home Draw Preferred lab: LEV Send INR reminders to: [facility] Comments: Home Monitor [phone] (M) Anticoagulation Care Providers Provider Role Specialty Phone number Karel Jerry MD Responsible Cardiology [phone] Patient Assessment Service Type: INR Test Result [...] Warfarin Therapy Instructions April 2023 Details Sun Thu Fri Sat 1 2 3 4 5 6 7 8 9 10 11 12 13 14 15 16 17 4 mg See details 18 5 mg 19 5 mg 20 5 mg 21 5 mg 22 5 mg 23 5 mg 24 5 mg 25 26 27 28 29 30 31 Date Details 04/22 This INR check Date of next INR: 04/29/2023 How to take your warfarin dose To take: 4 mg Take 4 of the 1 mg tablets. To take: 5 mg Take 1 of the 5 mg tablets. Description 04/22/23 INR 4.0 Slightly high. Denies any [...] her doctor tomorrow and understands to call [facility] with any med changes. She reports an [...] Anti-Coag Telephone Visit [facility] [place] [address] documented as of this encounter Visit Diagnoses Diagnosis Antiphospholipid antibody----- use antiXa level to dose heparin. Primary hypercoagulable state Aortic valve prosthesis present Heart valve replaced by other means Pulmonary embolism, unspecified chronicity, unspecified pulmonary embolism type, unspecified whether acute cor pulmonale present documented in this encounter Care Teams Opticianry Teacher Relationship Specialty Start Date End Date Briana Timmons, COMP[place]IBILITY [place] [address] PCP - General Family Medicine 08/09/21 documented as of this encounter
--- OUTSIDE RECORDS SUMMARY | 2023-11-04 15:08 | XMS_ITS | Encounter Summary ---
[place] [address] Care Team Providers Care Licensed Sales Producer Name Role Phone Briana Timmons APRN Primary Care Provider [phone] Encounter Details Date Type Department Care Team (Latest Contact Info) Description 04/15/2023 3:00 AM EST Anti-Coag Telephone Visit [facility] [place] [address], RN Antiphospholipid antibody----- [...] Progress Notes * Tucker Lane RN - 04/15/2023 3:00 AM EST Images from the original note were not included. Anticoagulation Therapy Note Anticoagulation Summary As of 04/15/2023 INR goal: 2.5-3.5 TTR: 44.2% (6 mo) INR used for dosin.5 (04/15/2023) Warfarin maintenance plan: 6 mg (5 mg x 1 and 1 mg x 1) every Thu, Thu; 5 mg (5 mg x 1) all other days Weekly warfarin total: 37 mg No change documented: Tucker Lane RN Plan last modified: Tucker Lane RN (02/23/2023) Next INR check: 04/22/2023 Priority: 1 Week Target end date: Indefinite Indications Antiphospholipid antibody----- use antiXa level to dose heparin. 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] Pulmonary embolism unspecified chronicity unspecified pulmonary embolism type unspecified whether acute cor pulmonale present [I26.99] Anticoagulation Episode Summary INR check location: Home Draw Preferred lab: LEV Send INR reminders to: [facility] Comments: Home Monitor [phone] (M) Anticoagulation Care Providers Provider Role Specialty Phone number Karel Jerry MD Responsible Cardiology [phone] Patient Assessment Service Type: INR Test Result [...] Therapy Instructions April 2023 Details Sun Thu Yaritza Fri Sat 1 2 3 4 5 6 7 8 9 10 6 mg See details 11 5 mg 12 5 mg 13 5 mg 14 5 mg 15 6 mg 16 5 mg 17 6 mg 18 19 20 21 22 23 24 25 26 27 28 29 30 31 Date Details 04/15 This INR check Date of next INR: 04/22/2023 How to take your warfarin dose To take: 5 mg Take 1 of the 5 mg tablets. To take: 6 mg Take 1 of the 5 mg tablets and 1 of the 1 mg tablets. Description 04/15 INR in range today, left VM [...] her doctor tomorrow and understands to call [facility] with any med changes. She reports [...] 11/11/2023 3:00 AM EDT Anti-Coag Telephone Visit [facility] [place] [address] documented as of this encounter Visit Diagnoses Diagnosis Antiphospholipid antibody----- use antiXa level to dose heparin. Primary hypercoagulable state Aortic valve prosthesis present Heart valve replaced by other means Pulmonary embolism, unspecified chronicity, unspecified pulmonary embolism type, unspecified whether acute cor pulmonale present documented in this encounter Care Teams Licensed Sales Producer Relationship Specialty Start Date End Date Briana Timmons, CANDY CUTTER HAND [address] [facility] [place] [address] PCP - General Family Medicine 08/09/21 documented as of this encounter
--- OUTSIDE RECORDS SUMMARY | 2023-11-04 15:08 | XMS_ITS | Encounter Summary ---
[place] [address] Care Team Providers Care Medical Technologist Clinical Name Role Phone Briana Timmons APRN Primary Care Provider [phone] Reason for Visit * Reason Comments Medication Refill Encounter Details Date Type Department Care Team (Late st Contact Info) Description 03/27/2023 Refill [place] [address] Brad Baugh MD [facility] [place] [address] Systemic lupus erythematosus with other organ involvement, unspecified SLE type Social History Tobacco Use Types Packs/Day Years [...] 11/11/2023 3:00 AM EDT Anti-Coag Telephone Visit [facility] [place] [address] documented as of this encounter Visit Diagnoses Diagnosis Systemic lupus erythematosus with other organ involvement, unspecified SLE type documented in this encounter Care Teams Medical Technologist Clinical Relationship Specialty Start Date End Date Briana Timmons, RESIDENT ENGINEER [facility] [place] [address] PCP - General Family Medicine 08/09/21 documented as of this encounter
--- OUTSIDE RECORDS SUMMARY | 2023-11-04 15:08 | XMS_ITS | Encounter Summary ---
[place] [address] Care Team Providers Care Tread Cutter Name Role Phone Briana Timmons APRN Primary Care Provider [phone] Encounter Details Date Type Department Care Team (Latest Contact Info) Description 07/29/2023 3:00 AM EDT Anti-Coag Telephone Visit [facility] [place] [address], RN Antiphospholipid antibody----- [...] Progress Notes * Tucker Lane RN - 07/29/2023 3:00 AM EDT Images from the original note were not included. Anticoagulation Therapy Note Anticoagulation Summary As of 07/29/2023 INR goal: 2.5-3.5 TTR: 44.7% (6 mo) INR used for dosin.6 (07/29/2023) Warfarin maintenance plan: 5 mg (5 mg x 1) every day Weekly warfarin total: 35 mg No change documented: Tucker Lane RN Plan last modified: Shasta Delaney, [facility] (07/10/2023) Next INR check: 08/05/2023 Priority: 1 Week Target end date: Indefinite Indications Antiphospholipid antibody----- use antiXa level to dose heparin. 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] Pulmonary embolism unspecified chronicity unspecified pulmonary embolism type unspecified whether acute cor pulmonale present [I26.99] Anticoagulation Episode Summary INR check location: Home Draw Preferred lab: LEV Send INR reminders to: [facility] Comments: Home Monitor [phone] (M) Anticoagulation Care Providers Provider Role Specialty Phone number Karel Jerry MD Responsible Cardiology [phone] Patient Assessment Service Type: INR Test Result [...] admission, Bruising, Other complaints Warfarin Therapy Instructions July 2023 Details Thu Sat 1 2 3 4 5 6 7 8 9 10 11 12 13 14 15 16 17 18 19 20 21 22 23 24 5 mg See details 25 5 mg 26 5 mg 27 5 mg 28 5 mg 29 5 mg 30 5 mg Date Details 07/28 This INR check How to take your warfarin dose To take: 5 mg Take 1 of the 5 mg tablets. Warfarin Therapy Instructions August 2023 Details Thu Sat 1 5 mg 2 3 4 5 6 7 8 9 10 11 12 13 14 15 16 17 18 19 20 21 22 23 24 25 26 27 28 29 30 31 Date Details No additional details Date of next INR: 08/05/2023 How to take your warfarin dose To take: 5 mg Take 1 of the 5 mg tablets. Description 07/29/2023: INR above range. I spoke to [...] 11/11/2023 3:00 AM EDT Anti-Coag Telephone Visit [facility] [place] [place] [address] documented as of this encounter Visit Diagnoses Diagnosis Antiphospholipid antibody----- use antiXa level to dose heparin. Primary hypercoagulable state Aortic valve prosthesis present Heart valve replaced by other means Pulmonary embolism, unspecified chronicity, unspecified pulmonary embolism type, unspecified whether acute cor pulmonale present documented in this encounter Care Teams Tread Cutter Relationship Specialty Start Date End Date Briana Timmons, MEDICAL [place] [address] PCP - General Family Medicine 08/09/21 documented as of this encounter
--- OUTSIDE RECORDS SUMMARY | 2023-11-04 15:08 | XMS_ITS | Encounter Summary ---
[place] [address] Care Team Providers Care Under Presser Name Role Phone Briana Timmons APRN Primary Care Provider [phone] Encounter Details Date Type Department Care Team (Late Contact Info) Description 07/29/2023 Orders Only Internal Medicine at [address] [phone] Shasta Dxion MD [facility] [address] Social History Tobacco Use Types Packs/Day Years [...] 11/11/2023 3:00 AM EDT [place] [address] documented as of this encounter Procedures Procedure Name Priority Date/Time Associated Diagnosis Comments EXTERNAL INR RESULTS PANEL Routine 07/29/2023 11:05 AM EDT documented in this encounter Results * (ABNORMAL) External INR Results Panel (07/29/2023 11:05 AM EDT) POCT INR 3.6(H) 2.5 - 3.5 MDINR Comment:mdINR - Inr Result F rom Android Mobile Application 07/29/2023 11:0 5 AM EDT 07/29/2023 11:05 AM EDT Shasta Dixon MD POINT OF CARE TEST ORDERABLES Performing Organization Address City/State/[facility] Co de Phone Number MDINR [address] [phone] documented in this encounter Visit Diagnoses Not on filedocumented in this encounter Care Teams Under Presser Relationship Specialty Start Date End Date Briana Timmons, SHELL ASSEMBLER [address] [place] [address] PCP - General Family Medicine 08/09/21 documented as of this encounter
--- OUTSIDE RECORDS SUMMARY | 2023-11-04 15:08 | XMS_ITS | Encounter Summary ---
[place] [address] Care Team Providers Care Extract Mixer Name Role Phone Briana Timmons APRN Primary Care Provider Encounter Details Date Type Department Care Team (Late st Contact Info) Description 04/08/2023 Orders Only Internal Medicine at [address] [phone] Shasta Dixon MD [facility] [place] [address] Social History Tobacco Use Types Packs/Day Years [...] 11/11/2023 3:00 AM EDT [place] [address] documented as of this encounter Procedures Procedure Name Priority Date/Time Associated Diagnosis Comments EXTERNAL INR RESULTS PANEL Routine 04/08/2023 10:55 AM EST documented in this encounter Results * (ABNORMAL) External INR Results Panel (04/08/2023 10:55 AM EST) POCT INR 3.7(H) 2.5 - 3.5 MDIN[facility] Comment:mdINR - Inr Result F rom Android Mobile Application 04/08/2023 10:5 5 AM EST 04/08/2023 10:55 AM EST Shasta Dixon MD POINT OF CARE TEST ORDERABLES Performing Organization Address City/State/[facility] Co de Phone Number [facility] [address] [phone] documented in this encounter Visit Diagnoses Not on filedocumented in this encounter Care Teams Extract Mixer Relationship Specialty Start Date End Date Briana Timmons, CUSTOMER OPERATIONS SPECIALIST [address] [place] [address] PCP - General Family Medicine 08/09/21 documented as of this encounter
--- OUTSIDE RECORDS SUMMARY | 2023-11-04 15:08 | XMS_ITS | Encounter Summary ---
[place] [address] Care Team Providers Care Product Safety Consultant Name Role Phone Briana Timmons APRN Primary Care Provider [phone] Encounter Details Date Type Department Care Team (Latest Contact Info) Description 05/13/2023 3:00 AM EST Anti-Coag Telephone Visit [facility] [place] [address] Kelli Hoffman, RN Antiphospholipid antibody----- [...] Progress Notes * Kelli Hoffman, RN - 05/13/2023 3:00 AM EST Images from the original note were not included. Anticoagulation Therapy Telephone Note: Anticoagulation Summary As of 05/13/2023 INR goal: 2.5-3.5 TTR: 42.6% (6 mo) INR used for dosin.5 (05/13/2023) Warfarin maintenance plan: 3 mg (1 mg x 3) every Wed; 5 mg (5 mg x 1) all other days Weekly warfarin total: 33 mg Plan last modified: Kelli Hoffman RN (05/13/2023) Next INR check: 05/20/2023 Priority: 1 Week Target end date: Indefinite Indications Antiphospholipid antibody----- use antiXa level to dose heparin. 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] Pulmonary embolism unspecified chronicity unspecified pulmonary embolism type unspecified whether acute cor pulmonale present [I26.99] Anticoagulation Episode Summary INR check location: Home Draw Preferred lab: LEV Send INR reminders to: [facility] Comments: Home Monitor [phone] (M) Anticoagulation Care Providers Provider Role Specialty Phone number Karel Jerry MD Responsible Cardiology [phone] Patient Assessment Service Type: INR Test Result INR Result: In Range Clinical Outcomes Negatives: Major bleeding event, Thromboembolic event, Anticoagulation-related hospital admission, Anticoagulation-related ED visit Patient Findings Positives: Other complaints (Has a lot of stress right now) Negatives: Upcoming Travel, Planning or Currently , Recent Fall, Signs/symptoms of thrombosis, Signs/symptoms of bleeding, Laboratory test error suspected, Change in health, Change in alcoholuse, Change in activity, Upcoming invasive procedure, Emergency department visit, Upcoming dental procedure, Missed doses, Extra doses, Change in medications, Change in diet/appetite, Hospital admission, Bruising Warfarin Therapy Instructions May 2023 Details Sun Mon Tue Wed Yaritza Fri Sat 1 2 3 4 5 6 7 3 mg See details 8 5 mg 9 5 mg 10 5 mg 11 5 mg 12 5 mg 13 5 mg 14 3 mg 15 16 17 18 19 20 21 22 23 24 25 26 27 28 29 Date Details 05/13 This INR check Date of next INR: 05/20/2023 How to take your warfarin dose To take: 3 mg Take 3 of the 1 mg tablets. To take: 5 mg Take 1 of the 5 mg tablets. Description 05/13/23 INR 3.5 Cecilia's phone isn't working. Spoke to Karle, her dad. Has a lot of personal [...] her doctor tomorrow and understands to call [facility] with any med changes. She reports an increase in bruising but otherwise denies any s/sx of bleeding, stroke, or TE. Since she is high risk for TE with +APA, instructed her to take a 1x lower warfarin dose today of 4mg (5.4% decrease for this week) then continue current weekly warfarin dose of 37mg/wk and recheck INR in 1wk. documented in this encounter Plan of Treatment Upcoming Encounters Date Type Department Care Team (Late st Contact Info) Description 11/11/2023 3:00 AM EDT Anti-Coag Telephone Visit [facility] [place] [address] documented as of this encounter Visit Diagnoses Diagnosis Antiphospholipid antibody----- use antiXa level to dose heparin. Primary hypercoagulable state Aortic valve prosthesis present Heart valve replaced by other means Pulmonary embolism, unspecified chronicity, unspecified pulmonary embolism type, unspecified whether acute cor pulmonale present documented in this encounter Care Teams Product Safety Consultant Relationship Specialty Start Date End Date Briana Timmons, HYDRAULIC AND PLUMBING INSTALLER [place] [address] PCP - General Family Medicine 08/09/21 documented as of this encounter
--- OUTSIDE RECORDS SUMMARY | 2023-11-04 15:08 | XMS_ITS | Encounter Summary ---
[place] [address] Care Team Providers Care Bundle Cutter Name Role Phone Briana Timmons APRN Primary Care Provider [phone] Encounter Details Date Type Department Care Team (Late Contact Info) Description 08/04/2023 Orders Only Internal Medicine at [address] [phone] Shasta Dixon MD [facility] [place] [address] Social History Tobacco Use Types Packs/Day Years [...] 11/11/2023 3:00 AM EDT [place] [id number] documented as of this encounter Procedures Procedure Name Priority Date/Time Associated Diagnosis Comments EXTERNAL INR RESULTS PANEL Routine 08/04/2023 10:56 AM EDT documented in this encounter Results * External INR Results Panel (08/04/2023 10:56 AM EDT) POCT INR 3 2.5 - 3.5 MDINR Comment:mdINR - Inr Result F rom Android Mobile Application 08/04/2023 10:5 6 AM EDT 08/04/2023 10:56 AM EDT Shasta Dixon MD POINT OF CARE TEST ORDERABLES Performing Organization Address City/State/[facility] Co de Phone Number MDINR [address] [phone] documented in this encounter Visit Diagnoses Not on filedocumented in this encounter Care Teams Bundle Cutter Relationship Specialty Start Date End Date Briana Timmons APR[place] [place] [address] PCP - General Family Medicine 08/09/21 documented as of this encounter
--- OUTSIDE RECORDS SUMMARY | 2023-11-04 15:08 | XMS_ITS | Encounter Summary ---
[place] [address] Care Team Providers Care Box Liner Name Role Phone Briana Timmons APRN Primary Care Provider [phone] Reason for Visit * Reason Onset Date Comments Prior Authorization 06/23/2023 Encounter Details Date Type Department Care Team (Late st Contact Info) Description 06/23/2023 [place] [address] Barbara Dean Prior Authorization Social History Tobacco Use Types Packs/Day Years [...] encounter Miscellaneous Notes * Telephone Encounter - Barbara Dean - 06/26/2023 12:08 PM EDT PA Outcome: PA Approval Medication Prior Authorization Approval Approved: BD TB Syringe 27G X 1/21 ML Start Date: 06/23/23 End Date: 04/05/24 Case/Reference #: [id number] Approval Letter will be scanned into media once received. 4 syringes per 28 days * Telephone Encounter - Barbara Dean - 06/23/2023 1:12 PM EDT Medication Prior Authorization [place] Medication name/dose/directions: BD TB Syringe 27G X 1/21 ML - use one weekly Rationale for request: SLE (M32.9) Health plan: [employer] ([facility]) Rai: [id number] Authorizing senior sales representative name: Bertha Sent to health plan on: 06/23/23 documented in this encounter Plan of Treatment Upcoming Encounters Date Type Department Care Team (Late st Contact Info) Description 11/11/2023 3:00 AM EDT [place] [address] documented as of this encounter Visit Diagnoses Not on filedocumented in this encounter Care Teams Box Liner Relationship Specialty Start Date End Date Briana Timmons, [place] [address] PCP - General Family Medicine 08/09/21 documented as of this encounter
--- OUTSIDE RECORDS SUMMARY | 2023-11-04 15:08 | XMS_ITS | Encounter Summary ---
[place] [address] Care Team Providers Care Access Spec Name Role Phone Briana Timmons APRN Primary Care Provider [phone] Encounter Details Date Type Department Care Team (Latest Contact Info) Description 07/15/2023 3:00 AM EDT Anti-Coag Telephone Visit [facility] [place] [address] Shasta Delaney [facility] Antiphospholipid antibody----- use antiXa level to dose [...] Notes * Shasta Delaney [facility] - 07/15/2023 3:00 AM EDT Images from the original note were not included. Anticoagulation Therapy Note Anticoagulation Summary As of 07/15/2023 INR goal: 2.5-3.5 TTR: 45.2% (6 mo) INR used for dosin.7 (07/15/2023) Warfarin maintenance plan: 5 mg (5 mg x 1) every day Weekly warfarin total: 35 mg Plan last modified: Shasta Delaney [facility] (07/10/2023) Next INR check: 07/22/2023 Priority: 1 Week Target end date: Indefinite Indications Antiphospholipid antibody----- use antiXa level to dose heparin. 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] Pulmonary embolism unspecified chronicity unspecified pulmonary embolism type unspecified whether acute cor pulmonale present [I26.99] Anticoagulation Episode Summary INR check location: Home Draw Preferred lab: LEV Send INR reminders to: [facility] Comments: Home Monitor [phone] (M) Anticoagulation Care Providers Provider Role Specialty Phone number Karel Jerry MD Responsible Cardiology [phone] Patient Assessment Service Type: INR Test Result [...] complaints Warfarin Therapy Instructions July 2023 Details Sun Mon Thu Wed Yaritza Fri Sat 1 2 3 4 5 6 7 8 9 10 5 mg See details 11 5 mg 12 5 mg 13 5 mg 14 5 mg 15 5 mg 16 5 mg 17 5 mg 18 19 20 21 22 23 24 25 26 27 28 29 30 Date Details 07/14 This INR check Date of next INR: 07/22/2023 How to take your warfarin dose To take: 5 mg Take 1 of the 5 mg tablets. Description 07/15/2023: INR in range. I spoke to [...] as quickly decreased from 35mg/week to 31mg/week. documented in this encounter Plan of Treatment Upcoming Encounters Date Type Department Care Team (Late st Contact Info) Description 11/11/2023 3:00 AM EDT Anti-Coag Telephone Visit [facility] [place] [address] documented as of this encounter Visit Diagnoses Diagnosis Antiphospholipid antibody----- use antiXa level to dose heparin. Primary hypercoagulable state Aortic valve prosthesis present Heart valve replaced by other means Pulmonary embolism, unspecified chronicity, unspecified pulmonary embolism type, unspecified whether acute cor pulmonale present documented in this encounter Care Teams Access Spec Relationship Specialty Start Date End Date Briana Timmons, HAND ETCHER [address] [place] [address] PCP - General Family Medicine 08/09/21 documented as of this encounter
--- OUTSIDE RECORDS SUMMARY | 2023-11-04 15:08 | XMS_ITS | Encounter Summary ---
[place] [address] Care Team Providers Care Tier Lift Truck Operator Name Role Phone Briana Timmons APRN Primary Care Provider [phone] Encounter Details Date Type Department Care Team (Late st Contact Info) Description 04/15/2023 Orders Only Internal Medicine at [address] [phone] Shasta Dixon MD [facility] [place] [address] Social History Tobacco Use Types Packs/Day Years [...] 11/11/2023 3:00 AM EDT Anti-[place] [phone] documented as of this encounter Procedures Procedure Name Priority Date/Time Associated Diagnosis Comments EXTERNAL INR RESULTS PANEL Routine 04/15/2023 12:14 PM EST documented in this encounter Results * External INR Results Panel (04/15/2023 12:14 PM EST) POCT INR 3.5 2.5 - 3.5 MDINR Comment:mdINR - Inr Result F rom Android Mobile Application 04/15/2023 12:1 4 PM EST 04/15/2023 12:14 PM EST Shasta Dixon MD POINT OF CARE TEST ORDERABLES Performing Organization Address City/State/[facility] Co de Phone Number MDINR [address] [phone] documented in this encounter Visit Diagnoses Not on filedocumented in this encounter Care Teams Tier Lift Truck Operator Relationship Specialty Start Date End Date Briana Timmons APRN [place] [place] [address] PCP - General Family Medicine 08/09/21 documented as of this encounter
--- OUTSIDE RECORDS SUMMARY | 2023-11-04 15:08 | XMS_ITS | Encounter Summary ---
[place] [address] Care Team Providers Care Telecommunications Line Installer Name Role Phone Briana Timmons APRN Primary Care Provider [phone] Encounter Details Date Type Department Care Team (Late st Contact Info) Description 04/29/2023 Orders Only Internal Medicine at [address] [phone] Shasta Dixon MD [facility] [place] [address] Social History Tobacco Use Types Packs/Day Years [...] 11/11/2023 3:00 AM EDT [place] [address] documented as of this encounter Procedures Procedure Name Priority Date/Time Associated Diagnosis Comments EXTERNAL INR RESULTS PANEL Routine 04/29/2023 11:17 AM EST documented in this encounter Results * (ABNORMAL) External INR Results Panel (04/29/2023 11:17 AM EST) POCT INR 2.4(L) 2.5 - 3.5 MDINR Comment:mdINR - Inr Result F rom Android Mobile Application 04/29/2023 11:1 7 AM EST 04/29/2023 11:17 AM EST Shasta Dixon MD POINT OF CARE TEST ORDERABLES Performing Organization Address City/State/[facility] Co de Phone Number MDINR [address] [phone] documented in this encounter Visit Diagnoses Not on filedocumented in this encounter Care Teams Telecommunications Line Installer Relationship Specialty Start Date End Date Briana Timmons, DISPENSARY CLERK [address] [place] [address] PCP - General Family Medicine 08/09/21 documented as of this encounter
--- OUTSIDE RECORDS SUMMARY | 2023-11-04 15:08 | XMS_ITS | Encounter Summary ---
[place] [address] Care Team Providers Care Community Cultural Development Officer Name Role Phone Briana Timmons APRN Primary Care Provider [phone] Encounter Details Date Type Department Care Team (Late Contact Info) Description 03/23/2023 Orders Only Internal Medicine at [address] [phone] Shasta Dixon MD [facility] [address] Social History Tobacco Use Types Packs/Day Years [...] 11/11/2023 3:00 AM EDT [place] [address] documented as of this encounter Procedures Procedure Name Priority Date/Time Associated Diagnosis Comments EXTERNAL INR RESULTS PANEL Routine 03/23/2023 11:05 AM EST documented in this encounter Results * (ABNORMAL) External INR Results Panel (03/23/2023 11:05 AM EST) POCT INR 2.3(L) 2.5 - 3.5 MDINR Comment:mdINR - Inr Result F rom Android Mobile Application 03/23/2023 11:0 5 AM EST 03/23/2023 11:05 AM EST Shasta Dixon MD POINT OF CARE TEST ORDERABLES Performing Organization Address City/State/[facility] Co de Phone Number MDINR [address] [phone] documented in this encounter Visit Diagnoses Not on filedocumented in this encounter Care Teams Community Cultural Development Officer Relationship Specialty Start Date End Date Briana Timmons, NEWS SPECIALIST [address] [place] [address] PCP - General Family Medicine 08/09/21 documented as of this encounter
--- OUTSIDE RECORDS SUMMARY | 2023-11-04 15:08 | XMS_ITS | Encounter Summary ---
[place] [address] Care Team Providers Care Fishery Division Chief Name Role Phone Briana Timmons APRN Primary Care Provider [phone] Encounter Details Date Type Department Care Team (Latest Contact Info) Description 07/10/2023 3:00 AM EDT Anti-Coag Telephone Visit [facility] [place] [address] Shasta Delaney [facility] Antiphospholipid antibody----- use antiXa level [...] this encounter Progress Notes * Shasta Delaney [facility] - 07/10/2023 3:00 AM EDT Images from the original note were not included. Anticoagulation Therapy Note Anticoagulation Summary As of 07/10/2023 INR goal: 2.5-3.5 TTR: 47.7% (6 mo) INR used for dosin.2 (07/10/2023) Warfarin maintenance plan: 5 mg (5 mg x 1) every day Weekly warfarin total: 35 mg Plan last modified: Shasta Delaney [facility] (07/10/2023) Next INR check: 07/15/2023 Target end date: Indefinite Indications Antiphospholipid antibody----- use antiXa level to dose heparin. 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] Pulmonary embolism unspecified chronicity unspecified pulmonary embolism type unspecified whether acute cor pulmonale present [I26.99] Anticoagulation Episode Summary INR check location: Home Draw Preferred lab: LEV Send INR reminders to: [facility] Comments: Home Monitor [phone] (M) Anticoagulation Care Providers Provider Role Specialty Phone number Karel Jerry MD Responsible Cardiology [phone] Patient Assessment Service Type: INR Test Result [...] Warfarin Therapy Instructions July 2023 Details Sun Thu Fri Sat 1 2 3 4 5 7.5 mg See details 6 5 mg 7 5 mg 8 5 mg 9 5 mg 10 5 mg 11 12 13 14 15 16 17 18 19 20 21 22 23 24 25 26 27 28 29 30 Date Details 07/09 This INR check Date of next INR: 07/15/2023 How to take your warfarin dose To take: 5 mg Take 1 of the 5 mg tablets. To take: 7.5 mg Take 1.5 of the 5 mg tablets. Description 07/10/2023: INR below range. I spoke to [...] 11/11/2023 3:00 AM EDT Anti-Coag Telephone Visit [facility] [place] [address] documented as of this encounter Visit Diagnoses Diagnosis Antiphospholipid antibody----- use antiXa level to dose heparin. Primary hypercoagulable state Aortic valve prosthesis present Heart valve replaced by other means Pulmonary embolism, unspecified chronicity, unspecified pulmonary embolism type, unspecified whether acute cor pulmonale present documented in this encounter Care Teams Fishery Division Chief Relationship Specialty Start Date End Date Briana Timmons, MECHANICAL MAINTENANCE FOREMAN [place] [facility] [place] [address] PCP - General Family Medicine 08/09/21 documented as of this encounter
--- OUTSIDE RECORDS SUMMARY | 2023-11-04 15:08 | XMS_ITS | Encounter Summary ---
[place] [address] Care Team Providers Care Corporate Intern Name Role Phone Briana Timmons APRN Primary Care Provider [phone] Encounter Details Date Type Department Care Team (Late st Contact Info) Description 05/06/2023 Orders Only Internal Medicine at [address] [phone] Shasta Dixon MD [facility] [place] [address] Social History Tobacco Use Types Packs/Day Years [...] 11/11/2023 3:00 AM EDT [place] [address] documented as of this encounter Procedures Procedure Name Priority Date/Time Associated Diagnosis Comments EXTERNAL INR RESULTS PANEL Routine 05/06/2023 10:24 AM EST documented in this encounter Results * External INR Results Panel (05/06/2023 10:24 AM EST) POCT INR 2.8 2.5 - 3.5 INR Comment:mdINR - Inr Result F rom Android Mobile Application 05/06/2023 10:2 4 AM EST 05/06/2023 10:24 AM EST Shasta Dixon MD POINT OF CARE TEST ORDERABLES Performing Organization Address City/State/[facility] Co de Phone Number MDINR [address] [phone] documented in this encounter Visit Diagnoses Not on filedocumented in this encounter Care Teams Corporate Intern Relationship Specialty Start Date End Date Briana Timmons APRN [place] [place] [address] PCP - General Family Medicine 08/09/21 documented as of this encounter
--- OUTSIDE RECORDS SUMMARY | 2023-11-04 15:08 | XMS_ITS | Encounter Summary ---
[place] [address] Care Team Providers Care Automatic I Threading Machine Feeder Name Role Phone Briana Timmons APRN Primary Care Provider [phone] Encounter Details Date Type Department Care Team (Latest Contact Info) Description 05/27/2023 3:00 AM EST Anti-Coag Telephone Visit [facility] [place] [address] Kelli Hoffman, RN Antiphospholipid antibody----- [...] Progress Notes * Kelli Hoffman, RN - 05/27/2023 3:00 AM EST Images from the original note were not included. Anticoagulation Therapy Telephone Note: Anticoagulation Summary As of 05/27/2023 INR goal: 2.5-3.5 TTR: 48.9% (6 mo) INR used for dosin.5 (05/27/2023) Warfarin maintenance plan: 3 mg (1 mg x 3) every Thu, Sat; 5 mg (5 mg x 1) all other days Weekly warfarin total: 31 mg Plan last modified: Kelli Hoffman RN (05/20/2023) Next INR check: 06/03/2023 Priority: 1 Week Target end date: Indefinite Indications Antiphospholipid antibody----- use antiXa level to dose heparin. 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] Pulmonary embolism unspecified chronicity unspecified pulmonary embolism type unspecified whether acute cor pulmonale present [I26.99] Anticoagulation Episode Summary INR check location: Home Draw Preferred lab: LEV Send INR reminders to: [facility] Comments: Home Monitor [phone] (M) Anticoagulation Care Providers Provider Role Specialty Phone number Karel Jerry MD Responsible Cardiology [phone] Patient Assessment Service Type: INR Test Result [...] admission, Bruising, Other complaints Warfarin Therapy Instructions May 2023 Details Sun Thu Yaritza Fri Sat 1 2 3 4 5 6 7 8 9 10 11 12 13 14 15 16 17 18 19 20 21 3 mg See details 22 5 mg 23 5 mg 24 3 mg 25 5 mg 26 5 mg 27 5 mg 28 3 mg 29 Date Details 05/27 This INR check Date of next INR: 06/03/2023 How to take your warfarin dose To take: 3 mg Take 3 of the 1 mg tablets. To take: 5 mg Take 1 of the 5 mg tablets. Description 05/27/2023: INR in range. I spoke to [...] 11/11/2023 3:00 AM EDT Anti-Coag Telephone Visit [facility] [place] [address] documented as of this encounter Visit Diagnoses Diagnosis Antiphospholipid antibody----- use antiXa level to dose heparin. Primary hypercoagulable state Aortic valve prosthesis present Heart valve replaced by other means Pulmonary embolism, unspecified chronicity, unspecified pulmonary embolism type, unspecified whether acute cor pulmonale present documented in this encounter Care Teams Automatic I Threading Machine Feeder Relationship Specialty Start Date End Date Briana Timmons, CORPORATE QUALITY ENGINEER [place] [address] PCP - General Family Medicine 08/09/21 documented as of this encounter
--- OUTSIDE RECORDS SUMMARY | 2023-11-04 15:08 | XMS_ITS | Encounter Summary ---
[place] [address] Care Team Providers Care Milling Machinist Name Role Phone Briana Timmons APRN Primary Care Provider [phone] Encounter Details Date Type Department Care Team (Late st Contact Info) Description 06/17/2023 Orders Only Internal Medicine at [address] [phone] Shasta Dixon MD [facility] [place] [address] Social History Tobacco Use Types Packs/Day Years [...] 11/11/2023 3:00 AM EDT [place] [address] documented as of this encounter Procedures Procedure Name Priority Date/Time Associated Diagnosis Comments EXTERNAL INR RESULTS PANEL Routine 06/17/2023 10:43 AM EDT documented in this encounter Results * (ABNORMAL) External INR Results Panel (06/17/2023 10:43 AM EDT) POCT INR 2.4(L) 2.5 - 3.5 MDINR Comment:mdINR - Inr Result F rom iOS Mobile Application 06/17/2023 10:4 3 AM EDT 06/17/2023 10:43 AM EDT Shasta Dixon MD POINT OF CARE TEST ORDERABLES Performing Organization Address City/State/[facility] Co de Phone Number MDINR [address] [phone] documented in this encounter Visit Diagnoses Not on filedocumented in this encounter Care Teams Milling Machinist Relationship Specialty Start Date End Date Briana Timmons, THEORETICAL PHYSICIST [address] [place] [address] PCP - General Family Medicine 08/09/21 documented as of this encounter
--- OUTSIDE RECORDS SUMMARY | 2023-11-04 15:08 | XMS_ITS | Encounter Summary ---
[place] [address] Care Team Providers Care Studio Couch Frame Builder Name Role Phone Briana Timmons APRN Primary Care Provider [phone] Encounter Details Date Type Department Care Team (Latest Contact Info) Description 07/22/2023 3:00 AM EDT Anti-Coag Telephone Visit [facility] [place] [address] Shasta Delaney [facility] Antiphospholipid antibody----- use antiXa level [...] this encounter Progress Notes * Shasta Delaney [facility] - 07/22/2023 3:00 AM EDT Images from the original note were not included. Anticoagulation Therapy Note Anticoagulation Summary As of 07/22/2023 INR goal: 2.5-3.5 TTR: 45.2% (6 mo) INR used for dosin.2 (07/22/2023) Warfarin maintenance plan: 5 mg (5 mg x 1) every day Weekly warfarin total: 35 mg Plan last modified: Shasta Delaney [facility] (07/10/2023) Next INR check: 07/29/2023 Priority: 1 Week Target end date: Indefinite Indications Antiphospholipid antibody----- use antiXa level to dose heparin. 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] Pulmonary embolism unspecified chronicity unspecified pulmonary embolism type unspecified whether acute cor pulmonale present [I26.99] Anticoagulation Episode Summary INR check location: Home Draw Preferred lab: LEV Send INR reminders to: [facility] Comments: Home Monitor [phone] (M) Anticoagulation Care Providers Provider Role Specialty Phone number Karel Jerry MD Responsible Cardiology [phone] Patient Assessment Service Type: INR Test Result [...] Therapy Instructions July 2023 Details Sun Thu Wed Yaritza Fri Sat 1 2 3 4 5 6 7 8 9 10 11 12 13 14 15 16 17 5 mg See details 18 5 mg 19 5 mg 20 5 mg 21 5 mg 22 5 mg 23 5 mg 24 5 mg 25 26 27 28 29 30 Date Details 07/21 This INR check Date of next INR: 07/29/2023 How to take your warfarin dose To take: 5 mg Take 1 of the 5 mg tablets. Description 07/22/2023: INR in range. I spoke to [...] 11/11/2023 3:00 AM EDT Anti-Coag Telephone Visit [facility] [place] [address] documented as of this encounter Visit Diagnoses Diagnosis Antiphospholipid antibody----- use antiXa level to dose heparin. Primary hypercoagulable state Aortic valve prosthesis present Heart valve replaced by other means Pulmonary embolism, unspecified chronicity, unspecified pulmonary embolism type, unspecified whether acute cor pulmonale present documented in this encounter Care Teams Studio Couch Frame Builder Relationship Specialty Start Date End Date Briana Timmons, MASTER SHIP [place] [place] [address] PCP - General Family Medicine 08/09/21 documented as of this encounter
--- OUTSIDE RECORDS SUMMARY | 2023-11-04 15:08 | XMS_ITS | Encounter Summary ---
[place] [address] Care Team Providers Care Food Production Worker Name Role Phone Briana Timmons APRN Primary Care Provider [phone] Encounter Details Date Type Department Care Team (Latest Contact Info) Description 04/01/2023 3:00 AM EST Anti-Coag Telephone Visit [facility] Central[place] [id number] Christina Steen RN Antiphospholipid antibody----- use antiXa level to [...] as of this encounter Progress Notes * Christina Steen RN - 04/01/2023 3:00 AM EST Images from the original note were not included. Anticoagulation Therapy Note Anticoagulation Summary As of 04/01/2023 INR goal: 2.5-3.5 TTR: 45.1% (6 mo) INR used for dosin.9 (04/01/2023) Warfarin maintenance plan: 6 mg (5 mg x 1 and 1 mg x 1) every Thu, Thu; 5 mg (5 mg x 1) all other days Weekly warfarin total: 37 mg Plan last modified: Tucker Lane RN (02/23/2023) Next INR check: 04/08/2023 Priority: 1 Week Target end date: Indefinite Indications Antiphospholipid antibody----- use antiXa level to dose heparin. 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] Pulmonary embolism unspecified chronicity unspecified pulmonary embolism type unspecified whether acute cor pulmonale present [I26.99] Anticoagulation Episode Summary INR check location: Home Draw Preferred lab: LEV Send INR reminders to: [facility] Comments: Home Monitor [phone] (M) Anticoagulation Care Providers Provider Role Specialty Phone number Karel Jerry MD Responsible Cardiology [phone] Patient Assessment Service Type: INR Test Result INR Result: Out of Range Clinical Outcomes Negatives: Major bleeding event, Thromboembolic event, Anticoagulation-related hospital admission, Anticoagulation-related ED visit Patient Findings Positives: Change in health (sick with cold since 03/28; COVID negative), Change in medications (taking more APAP) Negatives: Upcoming Travel, Planning or Currently , Recent Fall, Signs/symptoms of thrombosis, Signs/symptoms of bleeding, Laboratory test error suspected, Change in alcohol use, Change in activity, Upcoming invasive procedure, Emergency department visit, Upcoming dental procedure, Missed doses, Extra doses, Change in diet/appetite, Hospital admission, Bruising, Other complaints Comments: Spoke to Cecilia Warfarin Therapy Instructions March 2023 Details Sun Thu Yaritza Fri Sat 1 2 3 4 5 6 7 8 9 10 11 12 13 14 15 16 17 18 19 20 21 22 23 24 25 26 27 4 mg See details 28 5 mg 29 5 mg 30 5 mg 31 5 mg Date Details 04/01 This INR check How to take your warfarin dose To take: 4 mg Take 4 of the 1 mg tablets. To take: 5 mg Take 1 of the 5 mg tablets. Warfarin Therapy Instructions April 2023 Details Sun Mon e Wed Yaritza Fri Sat 1 6 mg 2 5 mg 3 6 mg 4 5 6 7 8 9 10 11 12 13 14 15 16 17 18 19 20 21 22 23 24 25 26 27 28 29 30 31 Date Details No additional details Date of next INR: 04/08/2023 How to take your warfarin dose To take: 5 mg Take 1 of the 5 mg tablets. To take: 6 mg Take 1 of the 5 mg tablets and 1 of the 1 mg tablets. Description 04/01 INR supratherapeutic. Spoke to Cecilia - She reports has been sick and taking is taking Tylenolfor cough, runny nose, and headache since 03/28; she did test for COVID and it was neg; She will beseeing her doctor tomorrow and understands to call [facility] with any med changes. She reports an [...] Telephone Visit [facility] [place] [address] documented as of this encounter Visit Diagnoses Diagnosis Antiphospholipid antibody----- use antiXa level to dose heparin. Primary hypercoagulable state Aortic valve prosthesis present Heart valve replaced by other means Pulmonary embolism, unspecified chronicity, unspecified pulmonary embolism type, unspecified whether acute cor pulmonale present documented in this encounter Care Teams Food Production Worker Relationship Specialty Start Date End Date Briana Timmons APRN Aniya WALLIS [facility] [place] [address] PCP - General Family Medicine 5/6/22 documented as of this encounter
--- OUTSIDE RECORDS SUMMARY | 2023-11-04 15:08 | XMS_ITS | Encounter Summary ---
[place] [address] Care Team Providers Care Retention Specialist Name Role Phone Briana Timmons APRN Primary Care Provider [phone] Encounter Details Date Type Department Care Team (Latest Contact Info) Description 05/20/2023 3:00 AM EST Anti-Coag Telephone Visit [facility] Central[place] [address] Kelli Hoffman, RN Antiphospholipid antibody----- [...] Progress Notes * Kelli Hoffman, RN - 05/20/2023 3:00 AM EST Images from the original note were not included. Anticoagulation Therapy Telephone Note: Anticoagulation Summary As of 05/20/2023 INR goal: 2.5-3.5 TTR: 44.9% (6 mo) INR used for dosin.4 (05/20/2023) Warfarin maintenance plan: 3 mg (1 mg x 3) every Thu, Sat; 5 mg (5 mg x 1) all other days Weekly warfarin total: 31 mg Plan last modified: Kelli Hoffman RN (05/20/2023) Next INR check: 05/27/2023 Priority: 1 Week Target end date: Indefinite Indications Antiphospholipid antibody----- use antiXa level to dose heparin. 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] Pulmonary embolism unspecified chronicity unspecified pulmonary embolism type unspecified whether acute cor pulmonale present [I26.99] Anticoagulation Episode Summary INR check location: Home Draw Preferred lab: LEV Send INR reminders to: [facility] Comments: Home Monitor [phone] (M) Anticoagulation Care Providers Provider Role Specialty Phone number Karel Jerry MD Responsible Cardiology [phone] Patient Assessment Service Type: INR Test Result INR Result: In Range Clinical Outcomes Negatives: Major bleeding event, Thromboembolic event, Anticoagulation-related hospital admission, Anticoagulation-related ED visit Patient Findings Positives: Other complaints (Excessive bruising) Negatives: Upcoming Travel, Planning or Currently , Recent Fall, Signs/symptoms of thrombosis, Signs/symptoms of bleeding, Laboratory test error suspected, Change in health, Change in alcoholuse, Change in activity, Upcoming invasive procedure, Emergency department visit, Upcoming dental procedure, Missed doses, Extra doses, Change in medications, Change in diet/appetite, Hospital admission, Bruising Warfarin Therapy Instructions May 2023 Details Sun Mon Thu Wed Yaritza Fri Sat 1 2 3 4 5 6 7 8 9 10 11 12 13 14 3 mg See details 15 5 mg 16 5 mg 17 3 mg 18 5 mg 19 5 mg 20 5 mg 21 3 mg 22 23 24 25 26 27 28 29 Date Details 05/20 This INR check Date of next INR: 05/27/2023 How to take your warfarin dose To take: 3 mg Take 3 of the 1 mg tablets. To take: 5 mg Take 1 of the 5 mg tablets. Description 05/20/23 INR 3.4 Spoke to Cecilia. She said that she had excessive bruising and had a headache yesterday. Will decrease her maintenance dose by 6.1 % ( She is at the higher end of range) New dose 3 mg on Thu/Thu and 5 mg all the rest Will recheck in 1 week 05/13/23 INR 3.5 Cecilia's phone isn't working. [...] 11/11/2023 3:00 AM EDT Anti-Coag Telephone Visit [facility] [place] [address] documented as of this encounter Visit Diagnoses Diagnosis Antiphospholipid antibody----- use antiXa level to dose heparin. Primary hypercoagulable state Aortic valve prosthesis present Heart valve replaced by other means Pulmonary embolism, unspecified chronicity, unspecified pulmonary embolism type, unspecified whether acute cor pulmonale present documented in this encounter Care Teams Retention Specialist Relationship Specialty Start Date End Date Briana Timmons, CATALYTIC CONVERTER OPERATOR HELPER [address] [place] [address] PCP - General Family Medicine 08/09/21 documented as of this encounter
--- OUTSIDE RECORDS SUMMARY | 2023-11-04 15:08 | XMS_ITS | Encounter Summary ---
[place] [address] Care Team Providers Care Event Specialist Product Demonstrator Name Role Phone Briana Timmons APRN Primary Care Provider [phone] Encounter Details Date Type Department Care Team (Late Contact Info) Description 04/22/2023 Orders Only Internal Medicine at [address] [phone] Shasta Dixon MD [facility] [place] [address] Social History Tobacco Use Types Packs/Day Years [...] 11/11/2023 3:00 AM EDT [place] [phone] documented as of this encounter Procedures Procedure Name Priority Date/Time Associated Diagnosis Comments EXTERNAL INR RESULTS PANEL Routine 04/22/2023 10:22 AM EST documented in this encounter Results * (ABNORMAL) External INR Results Panel (04/22/2023 10:22 AM EST) POCT INR 4(H) 2.5 - 3.5 MDINR Comment:mdINR - Inr Result F rom Android Mobile Application 04/22/2023 10:2 2 AM EST 04/22/2023 10:22 AM EST Shasta Dixon MD POINT OF CARE TEST ORDERABLES Performing Organization Address City/State/[facility] Co de Phone Number MDINR [address] [phone] documented in this encounter Visit Diagnoses Not on filedocumented in this encounter Care Teams Event Specialist Product Demonstrator Relationship Specialty Start Date End Date Briana Timmons, CAE ENGINEER [place] [place] [address] PCP - General Family Medicine 08/09/21 documented as of this encounter
--- OUTSIDE RECORDS SUMMARY | 2023-11-04 15:08 | XMS_ITS | Encounter Summary ---
[place] [address] Care Team Providers Care Box Printing Machine Operator Name Role Phone Briana Timmons APRN Primary Care Provider [phone] Encounter Details Date Type Department Care Team (Late Contact Info) Description 07/03/2023 Orders Only Internal Medicine at [address] [phone] Shasta Dixon MD [facility] [place] [address] Social History Tobacco Use Types Packs/Day Years [...] 11/11/2023 3:00 AM EDT [place] [phone] documented as of this encounter Procedures Procedure Name Priority Date/Time Associated Diagnosis Comments EXTERNAL INR RESULTS PANEL Routine 07/03/2023 9:58 AM EDT documented in this encounter Results * (ABNORMAL) External INR Results Panel (07/03/2023 9:58 AM EDT) POCT INR 1.5(L) 2.5 - 3.5 MDINR Comment:mdINR - Inr Result F rom iOS Mobile Application 07/03/2023 9:58 AM EDT 07/03/2023 9:58 AM EDT Shasta Dixon MD POINT OF CARE TEST ORDERABLES Performing Organization Address City/State/[facility] Co de Phone Number MDINR [address] [phone] documented in this encounter Visit Diagnoses Not on filedocumented in this encounter Care Teams Box Printing Machine Operator Relationship Specialty Start Date End Date Briana Timmons, WOOD MODEL BUILDER [address] [place] [address] PCP - General Family Medicine 08/09/21 documented as of this encounter
--- OUTSIDE RECORDS SUMMARY | 2023-11-04 15:08 | XMS_ITS | Encounter Summary ---
[place] [address] Care Team Providers Care Spanish Lecturer Name Role Phone Briana Timmons APRN Primary Care Provider [phone] Encounter Details Date Type Department Care Team (Latest Contact Info) Description 04/29/2023 3:00 AM EST Anti-Coag Telephone Visit [facility] [place] [address], RN Antiphospholipid antibody----- [...] Progress Notes * Tucker Lane RN - 04/29/2023 3:00 AM EST Images from the original note were not included. Anticoagulation Therapy Telephone Note: Anticoagulation Summary As of 04/29/2023 INR goal: 2.5-3.5 TTR: 39.0% (6 mo) INR used for dosin.4 (04/29/2023) Warfarin maintenance plan: 5 mg (5 mg x 1) every day Weekly warfarin total: 35 mg No change documented: Tucker Lane RN Plan last modified: Kelli Hoffman RN (04/22/2023) Next INR check: 05/06/2023 Priority: 1 Week Target end date: Indefinite Indications Antiphospholipid antibody----- use antiXa level to dose heparin. 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] Pulmonary embolism unspecified chronicity unspecified pulmonary embolism type unspecified whether acute cor pulmonale present [I26.99] Anticoagulation Episode Summary INR check location: Home Draw Preferred lab: LEV Send INR reminders to: [facility] Comments: Home Monitor [phone] (M) Anticoagulation Care Providers Provider Role Specialty Phone number Karel Jerry MD Responsible Cardiology [phone] Patient Assessment Service Type: INR Test Result [...] Therapy Instructions April 2023 Details Sun Thu Sat 1 2 3 4 5 6 7 8 9 10 11 12 13 14 15 16 17 18 19 20 21 22 23 24 5 mg See details 25 5 mg 26 5 mg 27 5 mg 28 5 mg 29 5 mg 30 5 mg 31 5 mg Date Details 04/29 This INR check Date of next INR: 05/06/2023 How to take your warfarin dose To take: 5 mg Take 1 of the 5 mg tablets. Description 04/29 INR slightly low today, spoke with Cecilia, denies any changes, continue maintenance dose, retest 1 week. 1/17/24 INR 4.0 Slightly high. Denies any new [...] her doctor tomorrow and understands to call [facility] with any med changes. She [...] Visit [facility] [place] [address] documented as of this encounter Visit Diagnoses Diagnosis Antiphospholipid antibody----- use antiXa level to dose heparin. Primary hypercoagulable state Aortic valve prosthesis present Heart valve replaced by other means Pulmonary embolism, unspecified chronicity, unspecified pulmonary embolism type, unspecified whether acute cor pulmonale present documented in this encounter Care Teams Spanish Lecturer Relationship Specialty Start Date End Date Briana Timmons, GROUP MARKETING VP [address] [place] [address] PCP - General Family Medicine 08/09/21 documented as of this encounter
--- OUTSIDE RECORDS SUMMARY | 2023-11-04 15:08 | XMS_ITS | Encounter Summary ---
[place] [address] Care Team Providers Care Ocular Care Aide Name Role Phone Briana Timmons APRN Primary Care Provider [phone] Reason for Visit * Reason Comments Medication Refill Encounter Details Date Type Department Care Team (Late st Contact Info) Description 06/18/2023 Refill [place] [phone] Brad Baugh MD [facility] [place] [address] Systemic lupus erythematosus with other organ involvement, [...] encounter Miscellaneous Notes * Telephone Encounter - Deanne Alexis RN - 06/19/2023 7:03 AM EDT Methotrexate Rx Refill : Last Labs: CBC, CMP or LFT within last 12 weeks YES [] NO [x] Last labs: 09/26/21 Last Appointment: 12/24/22 Methotrexate Dosage: 10 mg weekly Contacted patient to arrange labs: YES [x] NO [] RN sent pt a [employer] message reminder to get updated labs. Standing Orders in place: YES [] NO [x] Pended orders: YES [] NO [x] Future lab orders in chart Sent to [employer] to schedule: Yes [x] NO [] documented in this encounter Plan of Treatment Upcoming Encounters Date Type Department Care Team (Late st Contact Info) Description 11/11/2023 3:00 AM EDT Anti-Coag Telephone Visit [facility] [place] [address] documented as of this encounter Visit Diagnoses Diagnosis Systemic lupus erythematosus with other organ involvement, unspecified SLE type documented in this encounter Care Teams Ocular Care Aide Relationship Specialty Start Date End Date Briana Timmons, FILAMENT MAKER Aniya WALLIS [facility] [place] [address] PCP - General Family Medicine 08/09/21 documented as of this encounter
--- OUTSIDE RECORDS SUMMARY | 2023-11-04 15:08 | XMS_ITS | Encounter Summary ---
[place] [address] Care Team Providers Care Powder Mill Operator Name Role Phone Briana Timmons APRN Primary Care Provider [phone] Encounter Details Date Type Department Care Team (Late st Contact Info) Description 07/15/2023 Orders Only Internal Medicine at [address] [phone] Shasta Dixon MD [facility] [place] [address] Social History Tobacco Use Types Packs/Day Years [...] 11/11/2023 3:00 AM EDT [place] [address] documented as of this encounter Procedures Procedure Name Priority Date/Time Associated Diagnosis Comments EXTERNAL INR RESULTS PANEL Routine 07/15/2023 2:02 PM EDT documented in this encounter Results * External INR Results Panel (07/15/2023 2:02 PM EDT) POCT INR 2.7 2.5 - 3.5 INR Comment:VioletR - Inr Result F rom iOS Mobile Application 07/15/2023 2:02 PM EDT 07/15/2023 2:02 PM EDT Shasta Dixon MD POINT OF CARE TEST ORDERABLES Performing Organization Address City/State/[facility] Co de Phone Number MDINR [address] [phone] documented in this encounter Visit Diagnoses Not on filedocumented in this encounter Care Teams Powder Mill Operator Relationship Specialty Start Date End Date Briana Timmons APRN [place] [place] [address] PCP - General Family Medicine 08/09/21 documented as of this encounter
--- OUTSIDE RECORDS SUMMARY | 2023-11-04 15:08 | XMS_ITS | Encounter Summary ---
[place] [address] Care Team Providers Care Lathe Set Up Operator Name Role Phone Briana Timmons APRN Primary Care Provider [phone] Encounter Details Date Type Department Care Team (Late Contact Info) Description 03/16/2023 Orders Only Internal Medicine at [address] [phone] Shasta Dixon MD [facility] [place] [address] Social History Tobacco Use Types Packs/Day Years [...] 11/11/2023 3:00 AM EDT [place] [address] documented as of this encounter Procedures Procedure Name Priority Date/Time Associated Diagnosis Comments EXTERNAL INR RESULTS PANEL Routine 03/16/2023 11:54 AM EST documented in this encounter Results * External INR Results Panel (03/16/2023 11:54 AM EST) POCT INR 3.1 2.5 - 3.5 MDINR Comment:mdINR - Inr Result F rom Android Mobile Application 03/16/2023 11:5 4 AM EST 03/16/2023 11:54 AM EST Shasta Dixon MD POINT OF CARE TEST ORDERABLES Performing Organization Address City/State/[facility] Co de Phone Number MDINR [address] [phone] documented in this encounter Visit Diagnoses Not on filedocumented in this encounter Care Teams Lathe Set Up Operator Relationship Specialty Start Date End Date Briana Timmons APR[place] [place] [address] PCP - General Family Medicine 08/09/21 documented as of this encounter
--- OUTSIDE RECORDS SUMMARY | 2023-11-04 15:08 | XMS_ITS | Encounter Summary ---
[place] [address] Care Team Providers Care Radiation Control Technician Name Role Phone Briana Timmons APRN Primary Care Provider [phone] Encounter Details Date Type Department Care Team (Late Contact Info) Description 07/01/2023 Orders Only Internal Medicine at [address] [phone] Shasta Dixon MD [facility] [place] [address] Social History Tobacco Use Types Packs/Day Years [...] 11/11/2023 3:00 AM EDT [place] [address] documented as of this encounter Procedures Procedure Name Priority Date/Time Associated Diagnosis Comments EXTERNAL INR RESULTS PANEL Routine 07/01/2023 2:57 PM EDT documented in this encounter Results * (ABNORMAL) External INR Results Panel (07/01/2023 2:57 PM EDT) POCT INR 7.2(H) 2.5 - 3.5 MDINR Comment:mdINR - Inr Result F rom iOS Mobile Application 07/01/2023 2:57 PM EDT 07/01/2023 2:57 PM EDT Shasta Dixon MD POINT OF CARE TEST ORDERABLES Performing Organization Address City/State/[facility] Co de Phone Number MDINR [address] [phone] documented in this encounter Visit Diagnoses Not on filedocumented in this encounter Care Teams Radiation Control Technician Relationship Specialty Start Date End Date Briana Timmons, USER SUPPORT SPECIALIST [address] [place] [address] PCP - General Family Medicine 08/09/21 documented as of this encounter
--- OUTSIDE RECORDS SUMMARY | 2023-11-04 15:08 | XMS_ITS | Encounter Summary ---
[place] [address] Care Team Providers Care Production Operator Name Role Phone Briana Timmons APRN Primary Care Provider [phone] Encounter Details Date Type Department Care Team (Late st Contact Info) Description 07/20/2023 Orders Only Internal Medicine at [address] [phone] Shasta Dixon MD [facility] [place] [address] Social History Tobacco Use Types Packs/Day Years [...] 11/11/2023 3:00 AM EDT Anti-[place] [phone] documented as of this encounter Procedures Procedure Name Priority Date/Time Associated Diagnosis Comments EXTERNAL INR RESULTS PANEL Routine 07/20/2023 11:06 AM EDT documented in this encounter Results * External INR Results Panel (07/20/2023 11:06 AM EDT) POCT INR 3.2 2.5 - 3.5 MDINR Comment:INR - Inr Result F rom Android Mobile Application 07/20/2023 11:0 6 AM EDT 07/20/2023 11:06 AM EDT Shasta Dixon MD POINT OF CARE TEST ORDERABLES Performing Organization Address City/State/[facility] Co de Phone Number MDINR [address] [phone] documented in this encounter Visit Diagnoses Not on filedocumented in this encounter Care Teams Production Operator Relationship Specialty Start Date End Date Briana Timmons, SUELL[place] [place] [address] PCP - General Family Medicine 08/09/21 documented as of this encounter
--- OUTSIDE RECORDS SUMMARY | 2023-11-04 15:08 | XMS_ITS | Encounter Summary ---
[place] [address] Care Team Providers Care Syrup Maker Name Role Phone Briana Timmons APRN Primary Care Provider [phone] Encounter Details Date Type Department Care Team (Late Contact Info) Description 06/10/2023 Orders Only Internal Medicine at [address] [phone] Shasta Dixon MD [facility] [place] [address] Social History Tobacco Use Types Packs/Day Years [...] 11/11/2023 3:00 AM EDT Anti-[place] [address] documented as of this encounter Procedures Procedure Name Priority Date/Time Associated Diagnosis Comments EXTERNAL INR RESULTS PANEL Routine 06/10/2023 11:42 AM EST documented in this encounter Results * External INR Results Panel (06/10/2023 11:42 AM EST) POCT INR 2.5 2.5 - 3.5 INR Comment:mdINR - Inr Result F rom iOS Mobile Application 06/10/2023 11:4 2 AM EST 06/10/2023 11:42 AM EST Shasta Dixon MD POINT OF CARE TEST ORDERABLES Performing Organization Address City/State/[facility] Co de Phone Number MDINR [address] [phone] documented in this encounter Visit Diagnoses Not on filedocumented in this encounter Care Teams Syrup Maker Relationship Specialty Start Date End Date Briana Timmons APRN [place] [place] [address] PCP - General Family Medicine 08/09/21 documented as of this encounter
--- OUTSIDE RECORDS SUMMARY | 2023-11-04 15:09 | XMS_ITS | Encounter Summary ---
[place] [address] Care Team Providers Care Equity Research Associate Name Role Phone Briana Timmons APRN Primary Care Provider [phone] Encounter Details Date Type Department Care Team (Latest Contact Info) Description 09/16/2022 3:00 AM EDT Anti-Coag Telephone Visit [facility] [place] [phone] Shasta Delaney, [facility] Antiphospholipid antibody syndrome; Aortic valve prosthesis present; Pulmonary embolism, unspecified [...] this encounter Progress Notes * Shasta Delaney [facility] - 09/16/2022 3:00 AM EDT Images from the original note were not included. Anticoagulation Therapy Note Anticoagulation Summary As of 09/16/2022 INR goal: 2.5-3.5 TTR: 70.1 % (6 mo) INR used for dosin.1 (09/16/2022) Warfarin maintenance plan: 6 mg (5 mg x 1 and 1 mg x 1) every Tue, Sat; 5 mg (5 mg x 1) all other days; Starting 09/16/2022 Weekly warfarin total: 37 mg Plan last modified: Shasta Delaney [facility] (09/16/2022) Next INR check: 09/23/2022 Priority: 1 Week Target end date: Indefinite Indications Antiphospholipid antibody----- use antiXa level to dose heparin. 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] Pulmonary embolism unspecified chronicity unspecified pulmonary embolism type unspecified whether acute cor pulmonale present [I26.99] Anticoagulation Episode Summary INR check location: Home Draw Preferred lab: [facility] Send INR reminders to: [facility] Comments: Home Monitor [phone] (M) Anticoagulation Care Providers Provider Role Specialty Phone number Gerardo Richter MD Responsible Cardiology [phone] Patient Assessment Service Type: INR Test Result [...] Bruising, Other complaints Warfarin Therapy Instructions September 2022 Details Sun Mon e Wed Yaritza Fri Sat 1 2 3 4 5 6 7 8 9 10 11 12 13 6 mg See details 14 5 mg 15 5 mg 16 5 mg 17 6 mg 18 5 mg 19 5 mg 20 6 mg 21 22 23 24 25 26 27 28 29 30 Date Details 09/16 This INR check Date of next INR: 09/23/2022 How to take your warfarin dose To take: 5 mg Take 1 of the 5 mg tablets. To take: 6 mg Take 1 of the 5 mg tablets and 1 of the 1 mg tablets. Description 09/16/22: INR is below range again and has been trending down. Increase weekly dose 5% and test INR in 1 week. 09/09 INR slightly low today, left VM for Cecilia to call clinic with any changes, due to current stability on this dosage will continue current dose, retest 1 week. 09/02 INR in range today, spoke with Cecilia, reports she is feeling better and has discontinued OTC medications, resume maintenance dose, retest 1 week. 08/26/22: INR above range. Cecilia reports having a cold and is taking mucinex and allergy relief. Increase tonight's dose 7% as a one time reduction. Test INR in 1 week. 08/19 INR in range today, left VM for Cecilia to call clinic with any changes, continue maintenance plan, retest 1 week. 08/15/22: INR continues to trend up but is still slightly below range. Take last enoxaparin today and resume 5mg of warfarin daily. Test INR Thursday. Cecilia reports today that she took 5mg on Wednesdayso she took 10mg last evening. Tracker updated. 08/14/22: INR trending up. Continue enoxaparin and increase tonight's dose 7%. Test INR tomorrow. 08/12/22: Cecilia is bridging post-op. No change to plan given on 08/05/22. Cecilia gets weekly calls from [facility] requesting INR. Follow up on 08/15/22. 08/05/22: INR in range. Cecilia will start her bridge plan tomorrow. Reviewed today over [facility]. Her prescription was sent in my Dr. Arturo Aviles from [facility]. Dose was calculated using 1.5mg/kg/day.Labs are current and Cecilia confirmed current weight. This dosing is appropriate. Post-op warfarin dose increased 21%. INR due 08/15/22. Reviewed over the phone and answered all questions. 07/28/22: Cecilia is scheduled for a colonoscopy on 08/11/22 and will need a full dose bridge per Dr. Richter based on high risk indication of Antiphospholipid Antibody Syndrome. The plan details can be found below this note and were sent to Cecilia via [email or web address]. 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
--- OUTSIDE RECORDS SUMMARY | 2023-11-04 15:09 | XMS_ITS | Encounter Summary ---
[place] [address] Care Team Providers Care Window Systems Administrator Name Role Phone Briana Timmons APRN Primary Care Provider [phone] Encounter Details Date Type Department Care Team (Latest Contact Info) Description 11/04/2022 3:00 AM EDT Anti-Coag Telephone Visit [facility] Centralized [place] [phone], [place] Antiphospholipid antibody syndrome; Aortic valve prosthesis present; [...] Progress Notes * Tucker Lane RN - 11/04/2022 3:00 AM EDT Images from the original note were not included. Anticoagulation Therapy Note Anticoagulation Summary As of 11/04/2022 INR goal: 2.5-3.5 TTR: 63.6 % (6 mo) INR used for dosin.6 (11/04/2022) Warfarin maintenance plan: 3 mg (1 mg x 3) every Tue, Thu; 5 mg (5 mg x 1) all other days; Starting11/04/2022 Weekly warfarin total: 31 mg Plan last modified: Tucker Lane RN (10/14/2022) Next INR check: 11/11/2022 Priority: 1 Week Target end date: Indefinite Indications Antiphospholipid antibody----- use antiXa level to dose heparin. 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] Pulmonary embolism unspecified chronicity unspecified pulmonary embolism type unspecified whether acute cor pulmonale present [I26.99] Anticoagulation Episode Summary INR check location: Home Draw Preferred lab: [facility] Send INR reminders to: [facility] Comments: Home Monitor [phone] (M) Anticoagulation Care Providers Provider Role Specialty Phone number Gerardo Richter MD Responsible Cardiology [phone] Patient Assessment Service Type: INR Test Result INR Result: Out of Range Warfarin Therapy Instructions November 2022 Details Sun Mon Thu Wed Thu Sat 1 5 mg See details 2 5 mg 3 5 mg 4 3 mg 5 5 mg 6 5 mg 7 5 mg 8 3 mg 9 10 11 12 13 14 15 16 17 18 19 20 21 22 23 24 25 26 27 28 29 30 31 Date Details 11/04 This INR check Date of next INR: 11/11/2022 How to take your warfarin dose To take: 3 mg Take 3 of the 1 mg tablets. To take: 5 mg Take 1 of the 5 mg tablets. Description 11/04 INR low today, left VM for Cecilia requesting call back, one time 6.5% increase, retest 1 week. 10/28 INR in range. Continue on current dose of warfarin and retest INR again in 1 week 10/21 INR in range today, spoke with Cecilia, denies any changes, maintain current dose, retest 1 week. 10/14 INR unchanged from last week despite 8% decrease, spoke with Cecilia, reports some diarrhea thisweek, decrease maintenance dose another 8%, retest 1 week. 10/08/22: INR above range. Decrease tonight's dose 8% and then resume current maintenance plan. Test INR in 1 week. Denies changes in diet, health or medications and confirmed current dose. 09/30 INR in range today, spoke with Cecilia, denies any changes, maintain current dose, retest 2 weeks. 09/23 INR in range today, left VM for Cecilia to call clinic with any changes, maintain current dose, retest 1 week. 09/16/22: INR is below range again and has been trending down. Increase weekly dose 5% and test INR in 1 week. 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
--- OUTSIDE RECORDS SUMMARY | 2023-11-04 15:09 | XMS_ITS | Encounter Summary ---
[place] [address] Care Team Providers Care Junior Underwriter Name Role Phone Briana Timmons APRN Primary Care Provider [phone] Encounter Details Date Type Department Care Team (Late Contact Info) Description 09/16/2022 Orders Only Internal Medicine at [address] [phone] Shasta Dixon MD [facility] [place] [address] Social History Tobacco Use Types Packs/Day Years [...] 11/11/2023 3:00 AM EDT [place] [phone] documented as of this encounter Procedures Procedure Name Priority Date/Time Associated Diagnosis Comments EXTERNAL INR RESULTS PANEL Routine 02/23/2023 10:14 AM EST EXTERNAL INR RESULTS PANEL Routine 02/16/2023 10:10 AM EST EXTERNAL INR RESULTS PANEL Routine 02/09/2023 10:35 AM EST EXTERNAL INR RESULTS PANEL Routine 02/03/2023 10:38 AM EDT EXTERNAL INR RESULTS PANEL Routine 01/26/2023 10:41 AM EDT EXTERNAL INR RESULTS PANEL Routine 01/19/2023 12:38 PM EDT EXTERNAL INR RESULTS PANEL Routine 01/12/2023 10:33 AM EDT EXTERNAL INR RESULTS PANEL Routine 01/06/2023 6:01 PM EDT EXTERNAL INR RESULTS PANEL Routine 12/29/2022 10:34 AM EDT EXTERNAL INR RESULTS PANEL Routine 12/24/2022 9:03 AM EDT EXTERNAL INR RESULTS PANEL Routine 12/22/2022 11:11 AM EDT EXTERNAL INR RESULTS PANEL Routine 12/15/2022 12:14 PM EDT EXTERNAL INR RESULTS PANEL Routine 12/09/2022 10:17 AM EDT EXTERNAL INR RESULTS PANEL Routine 12/03/2022 11:01 AM EDT EXTERNAL INR RESULTS PANEL Routine 11/25/2022 11:25 AM EDT EXTERNAL INR RESULTS PANEL Routine 11/18/2022 10:06 AM EDT EXTERNAL INR RESULTS PANEL Routine 11/11/2022 10:24 AM EDT EXTERNAL INR RESULTS PANEL Routine 11/04/2022 9:20 AM EDT EXTERNAL INR RESULTS PANEL Routine 10/28/2022 9:25 AM EDT EXTERNAL INR RESULTS PANEL Routine 10/21/2022 10:09 AM EDT EXTERNAL INR RESULTS PANEL Routine 10/14/2022 10:59 AM EDT EXTERNAL INR RESULTS PANEL Routine 10/08/2022 10:31 AM EDT EXTERNAL INR RESULTS PANEL Routine 09/30/2022 10:58 AM EDT EXTERNAL INR RESULTS PANEL Routine 09/23/2022 10:42 AM EDT EXTERNAL INR RESULTS PANEL Routine 09/16/2022 1:43 PM EDT documented in this encounter Results * (ABNORMAL) External INR Results Panel (02/23/2023 10:14 AM EST) POCT INR 2.3(L) 2.5 - 3.5 [facility] Comment:mdINR - Inr Result F rom Android Mobile Application 02/23/2023 10:1 4 AM EST 02/23/2023 10:14 AM EST Shasta Dixon MD POINT OF CARE TEST ORDERABLES Performing Organization Address City/State/[facility] Co de Phone Number [facility] [address] [phone] * (ABNORMAL) External INR Results Panel (02/16/2023 10:10 AM EST) POCT INR 2.4(L) 2.5 - 3.5 [facility] Comment:mdINR - Inr Result F rom Android Mobile Application 02/16/2023 10:1 0 AM EST 02/16/2023 10:10 AM EST Shasta Dixon MD POINT OF CARE TEST ORDERABLES Performing Organization Address [facility] de Phone Number [facility] [address] [phone] * (ABNORMAL) External INR Results Panel (02/09/2023 10:35 AM EST) POCT INR 2.1(L) 2.5 - 3.5 [facility] Comment:mdINR - Inr Result F rom Android Mobile Application 02/09/2023 10:3 5 AM EST 02/09/2023 10:35 AM EST Shasta Dixon MD POINT OF CARE TEST ORDERABLES Performing Organization Address [facility] de Phone Number [facility] [address] [phone] * (ABNORMAL) External INR Results Panel (02/03/2023 10:38 AM EDT) POCT INR 4.9(H) 2.5 - 3.5 [facility] Comment:mdINR - Inr Result F rom Android Mobile Application 02/03/2023 10:3 8 AM EDT 02/03/2023 10:38 AM EDT Shasta Dixon MD POINT OF CARE TEST ORDERABLES Performing Organization Address [facility] de Phone Number [facility] [address] [phone] * External INR Results Panel (01/26/2023 10:41 AM EDT) POCT INR 2.8 2.5 - 3.5 [facility] Comment:mdINR - Inr Result F rom Android Mobile Application 01/26/2023 10:4 1 AM EDT 01/26/2023 10:41 AM EDT Shasta Dixon MD POINT OF CARE TEST ORDERABLES Performing Organization Address [facility] de Phone Number [facility] [address] [phone] * External INR Results Panel (01/19/2023 12:38 PM EDT) POCT INR 3.1 2.5 - 3.5 [facility] Comment:mdINR - Inr Result F rom Android Mobile Application 01/19/2023 12:3 8 PM EDT 01/19/2023 12:38 PM EDT Shasta Dixon MD POINT OF CARE TEST ORDERABLES Performing Organization Address [facility] de Phone Number [facility] [address] [phone] * External INR Results Panel (01/12/2023 10:33 AM EDT) POCT INR 3.5 2.5 - 3.5 [facility] Comment:INR - Inr Result F rom Android Mobile Application 01/12/2023 10:3 3 AM EDT 01/12/2023 10:33 AM EDT Shasta Dixon MD POINT OF CARE TEST ORDERABLES Performing Organization Address [facility] de Phone Number [facility] [address] [phone] * (ABNORMAL) External INR Results Panel (01/06/2023 6:01 PM EDT) POCT INR 2.1(L) 2.5 - 3.5 [facility] Comment:INR - IVR Result F rom Phone #: 01/06/2023 6:01 PM EDT 01/06/2023 6:01 PM EDT Shasta Dixon MD POINT OF CARE TEST ORDERABLES Performing Organization Address [facility] Co de Phone Number [facility] [address] [phone] * (ABNORMAL) External INR Results Panel (12/29/2022 10:34 AM EDT) POCT INR 2.4(L) 2.5 - 3.5 [facility] Comment:mdINR - Inr Result F rom Android Mobile Application 12/29/2022 10:3 4 AM EDT 12/29/2022 10:34 AM EDT Shasta Dixon MD POINT OF CARE TEST ORDERABLES Performing Organization Address [facility] Co de Phone Number [facility] [address] [phone] * (ABNORMAL) External INR Results Panel (12/24/2022 9:03 AM EDT) POCT INR 3.8(H) 2.5 - 3.5 [facility] Comment:mdINR - Inr Result F rom Android Mobile Application 12/24/2022 9:03 AM EDT 12/24/2022 9:03 AM EDT Shasta Dixon MD POINT OF CARE TEST ORDERABLES Performing Organization Address [facility] Co de Phone Number [facility] [address] [phone] * (ABNORMAL) External INR Results Panel (12/22/2022 11:11 AM EDT) POCT INR 6.9(H) 2.5 - 3.5 [facility] Comment:mdINR - Inr Result F rom Android Mobile Application 12/22/2022 11:1 1 AM EDT 12/22/2022 11:11 AM EDT Shasta Dixon MD POINT OF CARE TEST ORDERABLES Performing Organization Address City/[facility] Co de Phone Number [facility] [address] [place] [address], [facility] [phone] * (ABNORMAL) External INR Results Panel (12/15/2022 12:14 PM EDT) POCT INR 3.6(H) 2.5 - 3.5 [facility] Comment:mdINR - Inr Result F rom Android Mobile Application 12/15/2022 12:1 4 PM EDT 12/15/2022 12:14 PM EDT Shasta Dixon MD POINT OF CARE TEST ORDERABLES Performing Organization Address [facility] Co de Phone Number [facility] [address] [phone] * (ABNORMAL) External INR Results Panel (12/09/2022 10:17 AM EDT) POCT INR 1.9(L) 2.5 - 3.5 [facility] Comment:mdINR - Inr Result F rom Android Mobile Application 12/09/2022 10:1 7 AM EDT 12/09/2022 10:17 AM EDT Shasta Dixon MD POINT OF CARE TEST ORDERABLES Performing Organization Address [facility] de Phone Number [facility] [address] [place] [address], [facility] [phone] * (ABNORMAL) External INR Results Panel (12/03/2022 11:01 AM EDT) POCT INR 2.3(L) 2.5 - 3.5 [facility] Comment:mdINR - Inr Result F rom Android Mobile Application 12/03/2022 11:0 1 AM EDT 12/03/2022 11:01 AM EDT Shasta Dixon MD POINT OF CARE TEST ORDERABLES Performing Organization Address [facility] Co de Phone Number [facility] [address] [place] [address], [facility] [phone] * (ABNORMAL) External INR Results Panel (11/25/2022 11:25 AM EDT) POCT INR 2.2(L) 2.5 - 3.5 [facility] Comment:mdINR - Inr Result F rom Android Mobile Application 11/25/2022 11:2 5 AM EDT 11/25/2022 11:25 AM EDT Shasta Dixon MD POINT OF CARE TEST ORDERABLES Performing Organization Address [facility] Co de Phone Number [facility] [address] [phone] * (ABNORMAL) External INR Results Panel (11/18/2022 10:06 AM EDT) POCT INR 2.3(L) 2.5 - 3.5 [facility] Comment:mdINR - Inr Result F rom Android Mobile Application 11/18/2022 10:0 6 AM EDT 11/18/2022 10:06 AM EDT Shasta Dixon MD POINT OF CARE TEST ORDERABLES Performing Organization Address [facility] de Phone Number [facility] [address] [phone] * External INR Results Panel (11/11/2022 10:24 AM EDT) POCT INR 3.1 2.5 - 3.5 [facility] Comment:mdINR - Inr Result F rom Android Mobile Application 11/11/2022 10:2 4 AM EDT 11/11/2022 10:24 AM EDT Shasta Dixon MD POINT OF CARE TEST ORDERABLES Performing Organization Address [facility] de Phone Number [facility] [address] [phone] * (ABNORMAL) External INR Results Panel (11/04/2022 9:20 AM EDT) POCT INR 1.6(L) 2.5 - 3.5 [facility] Comment:mdINR - Inr Result F rom Android Mobile Application 11/04/2022 9:20 AM EDT 11/04/2022 9:20 AM EDT Shasta Dixon MD POINT OF CARE TEST ORDERABLES Performing Organization Address [facility] de Phone Number [facility] [address] [phone] * External INR Results Panel (10/28/2022 9:25 AM EDT) POCT INR 3.2 2.5 - 3.5 [facility] Comment:mdINR - Inr Result F rom Android Mobile Application 10/28/2022 9:25 AM EDT 10/28/2022 9:25 AM EDT Shasta Dixon MD POINT OF CARE TEST ORDERABLES Performing Organization Address [facility] de Phone Number [facility] [address] [phone] * External INR Results Panel (10/21/2022 10:09 AM EDT) POCT INR 2.6 2.5 - 3.5 [facility] Comment:VioletR - Inr Result F rom Android Mobile Application 10/21/2022 10:0 9 AM EDT 10/21/2022 10:09 AM EDT Shasta Dixon MD POINT OF CARE TEST ORDERABLES Performing Organization Address [facility] de Phone Number [facility] [address] [phone] * (ABNORMAL) External INR Results Panel (10/14/2022 10:59 AM EDT) POCT INR 4.1(H) 2.5 - 3.5 [facility] Comment:mdINR - Inr Result F rom Android Mobile Application 10/14/2022 10:5 9 AM EDT 10/14/2022 10:59 AM EDT Shasta Dixon MD POINT OF CARE TEST ORDERABLES Performing Organization Address [facility] de Phone Number [facility] [address] [phone] * (ABNORMAL) External INR Results Panel (10/08/2022 10:31 AM EDT) POCT INR 4.1(H) 2.5 - 3.5 [facility] Comment:mdINR - Inr Result F rom Android Mobile Application 10/08/2022 10:3 1 AM EDT 10/08/2022 10:31 AM EDT Shasta Dixon MD POINT OF CARE TEST ORDERABLES Performing Organization Address [facility] de Phone Number [facility] [address] [phone] * External INR Results Panel (09/30/2022 10:58 AM EDT) POCT INR 2.8 2.5 - 3.5 [facility] Comment:mdINR - Inr Result F rom Android Mobile Application 09/30/2022 10:5 8 AM EDT 09/30/2022 10:58 AM EDT Shasta Dixon MD POINT OF CARE TEST ORDERABLES Performing Organization Address [facility] de Phone Number [facility] [address] [phone] * External INR Results Panel (09/23/2022 10:42 AM EDT) POCT INR 3.1 2.5 - 3.5 RATIO [facility] Comment:mdINR - Inr Result F rom Android Mobile Application 09/23/2022 10:4 2 AM EDT 09/23/2022 10:42 AM EDT Shasta Dixon MD POINT OF CARE TEST ORDERABLES Performing Organization Address City/[facility] Co de Phone Number [facility] [address] [phone] * (ABNORMAL) External INR Results Panel (09/16/2022 1:43 PM EDT) POCT INR 2.1(L) 2.5 - 3.5 RATIO [facility] Comment:Nikki - Inr Result F rom Android Mobile Application 09/16/2022 1:43 PM EDT 09/16/2022 1:43 PM EDT Shasta Dixno MD POINT OF CARE TEST ORDERABLES Performing Organization Address [facility] Co de Phone Number [facility] [address] [phone] documented in this encounter Visit Diagnoses Not on filedocumented in this encounter Care Teams Junior Underwriter Relationship Specialty Start Date End Date Briana Timmons, BUSINESS CONTINUITY MANAGEMENT DIRECT[place] [address] PCP - General Family Medicine 08/09/21 documented as of this encounter
--- OUTSIDE RECORDS SUMMARY | 2023-11-04 15:09 | XMS_ITS | Encounter Summary ---
[place] [address] Care Team Providers Care School Psychologist Assistant Name Role Phone Briana Timmons APRN Primary Care Provider [phone] Encounter Details Date Type Department Care Team (Latest Contact Info) Description 10/21/2022 3:00 AM EDT Anti-Coag Telephone Visit [facility] Centralized [place] [address], PAIGE Antiphospholipid antibody syndrome; Aortic [...] Progress Notes * Tucker Lane RN - 10/21/2022 3:00 AM EDT Images from the original note were not included. Anticoagulation Therapy Note Anticoagulation Summary As of 10/21/2022 INR goal: 2.5-3.5 TTR: 65.7 % (6 mo) INR used for dosin.6 (10/21/2022) Warfarin maintenance plan: 3 mg (1 mg x 3) every Tue, Fri; 5 mg (5 mg x 1) all other days; Starting10/21/2022 Weekly warfarin total: 31 mg No change documented: Tucker Lane RN Plan last modified: Tucker Lane RN (10/14/2022) Next INR check: 10/28/2022 Priority: 1 Week Target end date: Indefinite Indications Antiphospholipid antibody----- use antiXa level to dose heparin. 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] Pulmonary embolism unspecified chronicity unspecified pulmonary embolism type unspecified whether acute cor pulmonale present [I26.99] Anticoagulation Episode Summary INR check location: Home Draw Preferred lab: [facility] Send INR reminders to: [facility] Comments: Home Monitor [phone] (M) Anticoagulation Care Providers Provider Role Specialty Phone number Gerardo Richter MD Responsible Cardiology [phone] Patient Assessment Service Type: INR Test Result [...] Bruising, Other complaints Warfarin Therapy Instructions October 2022 Details Sun Mon Thu Wed Yaritza Fri Sat 1 2 3 4 5 6 7 8 9 10 11 12 13 14 15 16 17 18 3 mg See details 19 5 mg 20 5 mg 21 3 mg 22 5 mg 23 5 mg 24 5 mg 25 3 mg 26 27 28 29 30 31 Date Details 10/21 This INR check Date of next INR: 10/28/2022 How to take your warfarin dose To take: 3 mg Take 3 of the 1 mg tablets. To take: 5 mg Take 1 of the 5 mg tablets. Description 7/18 INR in range today, spoke with Cecilia, [...] on 08/05/22. Cecilia gets weekly calls from [facility] requesting INR. Follow up on 08/15/22. documented in this encounter Plan of Treatment Upcoming Encounters Date Type Department Care Team (Late st Contact Info) Description 11/11/2023 3:00 AM EDT Anti-Coag Telephone Visit [facility] Centralized [place] [address] documented as of this encounter Visit Diagnoses Diagnosis Antiphospholipid antibody syndrome Primary hypercoagulable state Aortic valve prosthesis present Heart valve replaced by other means Pulmonary embolism, unspecified chronicity, unspecified pulmonary embolism type, unspecified whether acute cor pulmonale present documented in this encounter Care Teams School Psychologist Assistant Relationship Specialty Start Date End Date Briana Timmons, WEB ADMINISTRATOR [address] [place] [address] PCP - General Family Medicine 08/09/21 documented as of this encounter
--- OUTSIDE RECORDS SUMMARY | 2023-11-04 15:09 | XMS_ITS | Encounter Summary ---
[place] [address] Care Team Providers Care Cisco Certified Network Associate Name Role Phone Briana Timmons APRN Primary Care Provider [phone] Encounter Details Date Type Department Care Team (Latest Contact Info) Description 01/26/2023 3:00 AM EDT Anti-Coag Telephone Visit [facility] Centralized [place] [address], RN Antiphospholipid antibody----- [...] of this encounter Progress Notes * Tucker Lnae RN - 01/26/2023 3:00 AM EDT Images from the original note were not included. Anticoagulation Therapy Note Anticoagulation Summary As of 01/26/2023 INR goal: 2.5-3.5 TTR: 44.6% (6 mo) INR used for dosin.8 (01/26/2023) Warfarin maintenance plan: 5 mg (5 mg x 1) every day Weekly warfarin total: 35 mg No change documented: Tucker Lane, RN Plan last modified: Bee Dimas RN (01/06/2023) Next INR check: 02/02/2023 Priority: 1 Week Target end date: Indefinite Indications Antiphospholipid antibody----- use antiXa level to dose heparin. 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] Pulmonary embolism unspecified chronicity unspecified pulmonary embolism type unspecified whether acute cor pulmonale present [I26.99] Anticoagulation Episode Summary INR check location: Home Draw Preferred lab: [facility] Send INR reminders to: [facility] Comments: Home Monitor [phone] (M) Anticoagulation Care Providers Provider Role Specialty Phone number Karel Jerry MD Responsible Cardiology [phone] Patient Assessment Service Type: INR Test Result [...] admission, Bruising, Other complaints Warfarin Therapy Instructions January 2023 Details Sun Thu Fri Sat 1 2 3 4 5 6 7 8 9 10 11 12 13 14 15 16 17 18 19 20 21 22 23 5 mg See details 24 5 mg 25 5 mg 26 5 mg 27 5 mg 28 5 mg 29 5 mg 30 5 mg 31 Date Details 01/26 This INR check Date of next INR: 02/02/2023 How to take your warfarin dose To take: 5 mg Take 1 of the 5 mg tablets. Description 01/26 INR in range today, spoke with Cecilia, denies any changes, maintain current dose, retest 1 week. 10/16: INR remains in range today. There are no records of recent ED visit in system - she does not reside in an area where I would have shared access to patient files ([facility]). Continue with 5mg daily, test INR in 1 week (home monitor). 01/12 INR in range today, spoke with Cecilia, reports she is in the ED currently for coughing/illness,she agrees to call us to update the clinic with any changes, maintain current dose, retest 1 week. 01/06/23 INR subtherapeutic. Increase to 35mg/wk which is 6% increase from last week 33mg/wk dosing.Recheck 1 week. LVM with plan and she was advised to call us if takes Diflucan, new meds ordered, or if illness worsens/new concerns. 12/31/22: INR slightly below range after holding 2 doses in the setting of supra- therapeutic INR dueto drug interaction. Cecilia was treated yesterday for both a URI and a bladder/kidney infection. Shewill start cefpodoxime BID tonight. She was given an IM injection yesterday, likely penicillin however she does not know the name. She was also given Diflucan to take at first sign of yeast. If she do es take the Diflucan I told her to skip warfarin due to recent supra-therapeutic INR. Decrease dose3% over the next 5 days and test INR Thursday. 12/30/22: no INR as of 4:45pm, will try lab tomorrow. 12/29/22: Cecilia's home monitor is and she will have INR done tomorrow at [facility]. Orders faxed. Take 4mg tonight. 12/24/22: INR has come down however it is still slightly above range. Decrease tonight's dose 3% then resume current weekly dose. Test INR Thursday. Cecilia still has a cough but is not currently taking any medications. She agreed to call [facility] if her condition changes and starts taking any new medications. documented in this encounter Plan of Treatment Upcoming Encounters Date Type Department Care Team (Late st Contact Info) Description 11/11/2023 3:00 AM EDT Anti-Coag Telephone Visit [facility] Centralized [place] [address] documented as of this encounter Visit Diagnoses Diagnosis Antiphospholipid antibody----- use antiXa level to dose heparin. 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
--- OUTSIDE RECORDS SUMMARY | 2023-11-04 15:09 | XMS_ITS | Encounter Summary ---
[place] [address] Care Team Providers Care Senior Sourcing Manager Name Role Phone Briana Timmons APRN Primary Care Provider [phone] Encounter Details Date Type Department Care Team (Latest Contact Info) Description 10/08/2022 3:00 AM EDT Anti-Coag Telephone Visit [facility] [place] [phone] Delaney, [facility] Antiphospholipid antibody syndrome; Aortic valve prosthesis present; [...] this encounter Progress Notes * Shasta Delaney [facility] - 10/08/2022 3:00 AM EDT Images from the original note were not included. Anticoagulation Therapy Note Anticoagulation Summary As of 10/08/2022 INR goal: 2.5-3.5 TTR: 69.7 % (6 mo) INR used for dosin.1 (10/08/2022) Warfarin maintenance plan: 6 mg (5 mg x 1 and 1 mg x 1) every Tue, Sat; 5 mg (5 mg x 1) all other days; Starting 10/08/2022 Weekly warfarin total: 37 mg Plan last modified: Shasta Delaney [facility] (09/16/2022) Next INR check: 10/14/2022 Target end date: Indefinite Indications Antiphospholipid antibody----- use antiXa level to dose heparin. 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] Pulmonary embolism unspecified chronicity unspecified pulmonary embolism type unspecified whether acute cor pulmonale present [I26.99] Anticoagulation Episode Summary INR check location: Home Draw Preferred lab: [facility] Send INR reminders to: [facility] Comments: Home Monitor [phone] (M) Anticoagulation Care Providers Provider Role Specialty Phone number Gerardo Richter MD Responsible Cardiology [phone] Patient Assessment Service Type: INR Test Result [...] 2022 Details Sun Mon Thu Wed Yaritza Thu Sat 1 2 3 4 5 2 mg See details 6 5 mg 7 5 mg 8 6 mg 9 5 mg 10 5 mg 11 6 mg 12 13 14 15 16 17 18 19 20 21 22 23 24 25 26 27 28 29 30 31 Date Details 10/08 This INR check Date of next INR: 10/14/2022 How to take your warfarin dose To take: 2 mg Take 2 of the 1 mg tablets. To take: 5 mg Take 1 of the 5 mg tablets. To take: 6 mg Take 1 of the 5 mg tablets and 1 of the 1 mg tablets. Description 10/08/22: INR above range. Decrease tonight's dose [...] on 08/05/22. Cecilia gets weekly calls from [facility] requesting INR. Follow up on 08/15/22. documented in this encounter Plan of Treatment Upcoming Encounters Date Type Department Care Team (Late st Contact Info) Description 11/11/2023 3:00 AM EDT Anti-Coag Telephone Visit [facility] [place] [address] documented as of this encounter Visit Diagnoses Diagnosis Antiphospholipid antibody syndrome Primary hypercoagulable state Aortic valve prosthesis present Heart valve replaced by other means Pulmonary embolism, unspecified chronicity, unspecified pulmonary embolism type, unspecified whether acute cor pulmonale present documented in this encounter Care Teams Senior Sourcing Manager Relationship Specialty Start Date End Date Briana Timmons, FINANCIAL SUPERVISOR [address] [place] [address] PCP - General Family Medicine 08/09/21 documented as of this encounter
--- OUTSIDE RECORDS SUMMARY | 2023-11-04 15:09 | XMS_ITS | Encounter Summary ---
[place] [address] Care Team Providers Care Drilling Assistant Name Role Phone Briana Timmons APRN Primary Care Provider [phone] Encounter Details Date Type Department Care Team (Late Contact Info) Description 09/02/2022 External Results [facility] [employer] [address] [place] [phone] Provider, His Benigno MD None Social History Tobacco Use Types Packs/Day Years [...] Upcoming Encounters Date Type Department Care Team ([facility] Contact Info) Description 11/11/2023 3:00 AM EDT Anti-Coag Telephone Visit [facility] [place] [address] documented as of this encounter Procedures Procedure Name Priority Date/Time Associated Diagnosis Comments EXTERNAL INR RESULTS PANEL Routine 09/02/2022 12:46 PM EDT documented in this encounter Results * External INR Results Panel (09/02/2022 12:46 PM EDT) POCT INR 2.5 0.9 - 1.1 HOME MONITOR Blood 09/02/2022 12:4 6 PM EDT His Roach Provider POINT OF CARE RAYRAY [place]ALL[place] ORDERABLES HOME MONITOR documented in this encounter Visit Diagnoses Not on filedocumented in this encounter Care Teams Drilling Assistant Relationship Specialty Start Date End Date Briana Timmons, PATENT EXAMINER [place] [place] [address] PCP - General Family Medicine 08/09/21 documented as of this encounter
--- OUTSIDE RECORDS SUMMARY | 2023-11-04 15:09 | XMS_ITS | Encounter Summary ---
[place] [address] Care Team Providers Care Shipwright Helper Name Role Phone Briana Timmons APRN Primary Care Provider [phone] Encounter Details Date Type Department Care Team (Latest Contact Info) Description 11/25/2022 3:00 AM EDT Anti-Coag Telephone Visit [facility] Centralized [place] [address], PAIGE Antiphospholipid antibody syndrome; Aortic [...] Progress Notes * Tucker Lane RN - 11/25/2022 3:00 AM EDT Images from the original note were not included. Anticoagulation Therapy Telephone Note: Anticoagulation Summary As of 11/25/2022 INR goal: 2.5-3.5 TTR: 60.4 % (6 mo) INR used for dosin.2 (11/25/2022) Warfarin maintenance plan: 3 mg (1 mg x 3) every Fri; 5 mg (5 mg x 1) all other days; Starting 11/25/2022 Weekly warfarin total: 33 mg Plan last modified: Tucker Lane RN (11/25/2022) Next INR check: 12/02/2022 Priority: 1 Week Target end date: Indefinite Indications Antiphospholipid antibody----- use antiXa level to dose heparin. 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] Pulmonary embolism unspecified chronicity unspecified pulmonary embolism type unspecified whether acute cor pulmonale present [I26.99] Anticoagulation Episode Summary INR check location: Home Draw Preferred lab: [facility] Send INR reminders to: [facility] Comments: Home Monitor [phone] (M) Anticoagulation Care Providers Provider Role Specialty Phone number Gerardo Richter MD Responsible Cardiology [phone] Patient Assessment Service Type: INR Test Result INR Result: Out of Range Warfarin Therapy Instructions November 2022 Details Sun Mon e Wed Yaritza Fri Sat 1 2 3 4 5 6 7 8 9 10 11 12 13 14 15 16 17 18 19 20 21 22 5 mg See details 23 5 mg 24 5 mg 25 3 mg 26 5 mg 27 5 mg 28 5 mg 29 5 mg 30 31 Date Details 11/25 This INR check Date of next INR: 12/02/2022 How to take your warfarin dose To take: 3 mg Take 3 of the 1 mg tablets. To take: 5 mg Take 1 of the 5 mg tablets. Description 11/25 INR low today, left VM for Cecilia to call clinic with any changes, increase maintenance dose 6.5%, retest 1 week. 11/18 INR slightly low today, spoke with Cecilia, denies any changes, maintain current dose, retest 1 week. 11/11/22 INR 3.1 In range. Continue with current dose. LVM Checks weekly. No changes noted with chartcheck.. Encouraged her to call back with any changes in meds or diet . 11/04 INR low today, left VM for [...] Telephone Visit [facility] Centralized [place] [address] documented as of this encounter Visit Diagnoses Diagnosis Antiphospholipid antibody syndrome Primary hypercoagulable state Aortic valve prosthesis present Heart valve replaced by other means Pulmonary embolism, unspecified chronicity, unspecified pulmonary embolism type, unspecified whether acute cor pulmonale present documented in this encounter Care Teams Shipwright Helper Relationship Specialty Start Date End Date Briana Timmons, [place] [address] PCP - General Family Medicine 08/09/21 documented as of this encounter
--- OUTSIDE RECORDS SUMMARY | 2023-11-04 15:09 | XMS_ITS | Encounter Summary ---
[place] [address] Care Team Providers Care Marine Cargo Inspector Name Role Phone Briana Timmons APRN Primary Care Provider [phone] Encounter Details Date Type Department Care Team (Late st Contact Info) Description 01/06/2023 External Results [facility] Centralized [place] [address] Ana Lilia Londono Social History Tobacco Use [...] 11/11/2023 3:00 AM EDT Anti-Coag Telephone Visit [facility] Centralized [place] [address] documented as of this encounter Procedures Procedure Name Priority Date/Time Associated Diagnosis Comments EXTERNAL INR RESULTS PANEL Routine 01/06/2023 3:17 PM EDT documented in this encounter Results * (ABNORMAL) External INR Results Panel (01/06/2023 3:17 PM EDT) POCT INR 2.1(A) 0.9 - 1.1 EXTERNAL LAB Comment:[facility] Blood 01/06/2023 3:17 PM EDT Historical Provider POINT OF CARE GERSON T ORDERABLES EXTERNAL LAB documented in this encounter Visit Diagnoses Not on filedocumented in this encounter Care Teams Marine Cargo Inspector Relationship Specialty Start Date End Date Briana Timmons, PODIATRIST ORTHOPEDIC [facility] [place] [address] PCP - General Family Medicine 08/09/21 documented as of this encounter
--- OUTSIDE RECORDS SUMMARY | 2023-11-04 15:09 | XMS_ITS | Encounter Summary ---
[place] [address] Care Team Providers Care Zyglo Technician Name Role Phone Briana Timmons APRN Primary Care Provider [phone] Encounter Details Date Type Department Care Team (Latest Contact Info) Description 09/30/2022 3:00 AM EDT Anti-Coag Telephone Visit [facility] Centralized [place] [address], [place]E Antiphospholipid antibody syndrome; Aortic [...] Progress Notes * Tucker Lane RN - 09/30/2022 3:00 AM EDT Images from the original note were not included. Anticoagulation Therapy Note Anticoagulation Summary As of 09/30/2022 INR goal: 2.5-3.5 TTR: 70.9 % (6 mo) INR used for dosin.8 (09/30/2022) Warfarin maintenance plan: 6 mg (5 mg x 1 and 1 mg x 1) every Tue, Sat; 5 mg (5 mg x 1) all other days; Starting 09/30/2022 Weekly warfarin total: 37 mg No change documented: Tucker Lane RN Plan last modified: Shasta Delaney [facility] (09/16/2022) Next INR check: 10/14/2022 Priority: 2 Weeks Target end date: Indefinite Indications Antiphospholipid antibody----- use antiXa level to dose heparin. 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] Pulmonary embolism unspecified chronicity unspecified pulmonary embolism type unspecified whether acute cor pulmonale present [I26.99] Anticoagulation Episode Summary INR check location: Home Draw Preferred lab: [facility] Send INR reminders to: [facility] Comments: Home Monitor [phone] (M) Anticoagulation Care Providers Provider Role Specialty Phone number Gerardo Richter MD Responsible Cardiology [phone] Patient Assessment Service Type: INR Test Result [...] complaints Warfarin Therapy Instructions September 2022 Details Thu Sat 1 2 3 4 5 6 7 8 9 10 11 12 13 14 15 16 17 18 19 20 21 22 23 24 25 26 27 6 mg See details 28 5 mg 29 5 mg 30 5 mg Date Details 09/30 This INR check How to take your warfarin dose To take: 5 mg Take 1 of the 5 mg tablets. To take: 6 mg Take 1 of the 5 mg tablets and 1 of the 1 mg tablets. Warfarin Therapy Instructions October 2022 Details Sun Mon Thu Fri Sat 1 6 mg 2 5 mg 3 5 mg 4 6 mg 5 5 mg 6 5 mg 7 5 mg 8 6 mg 9 5 mg 10 5 mg 11 6 mg 12 13 14 15 16 17 18 19 20 21 22 23 24 25 26 27 28 29 30 31 Date Details No additional details Date of next INR: 10/14/2022 How to take your warfarin dose To take: 5 mg Take 1 of the 5 mg tablets. To take: 6 mg Take 1 of the 5 mg tablets and 1 of the 1 mg tablets. Description 09/30 INR in range today, spoke with [...] on 08/05/22. Cecilia gets weekly calls from [facility] requesting INR. Follow up on 08/15/22. 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
--- OUTSIDE RECORDS SUMMARY | 2023-11-04 15:09 | XMS_ITS | Encounter Summary ---
[place] [address] Care Team Providers Care Science And Operations Officer Name Role Phone Briana Timmons APRN Primary Care Provider [phone] Encounter Details Date Type Department Care Team (Late st Contact Info) Description 11/25/2022 External Results [facility] [place] [address] Ana Lilia Londono Social History Tobacco Use [...] Telephone Visit [facility] [place] [phone] documented as of this encounter Procedures Procedure Name Priority Date/Time Associated Diagnosis Comments EXTERNAL INR RESULTS PANEL Routine 11/25/2022 1:03 PM EDT documented in this encounter Results * (ABNORMAL) External INR Results Panel (11/25/2022 1:03 PM EDT) POCT INR 2.2(A) 0.9 - 1.1 EXTERNAL LAB Comment:[facility] Blood 11/25/2022 1:03 PM EDT Historical Provider POINT OF CARE GERSON T ORDERABLES EXTERNAL LAB documented in this encounter Visit Diagnoses Not on filedocumented in this encounter Care Teams Science And Operations Officer Relationship Specialty Start Date End Date Briana Timmons, MONOGRAM MAKER [facility] [place] [address] PCP - General Family Medicine 08/09/21 documented as of this encounter
--- OUTSIDE RECORDS SUMMARY | 2023-11-04 15:09 | XMS_ITS | Encounter Summary ---
[place] [address] Care Team Providers Care Supervisor Last Model Department Name Role Phone Briana Timmons APRN Primary Care Provider [phone] Encounter Details Date Type Department Care Team (Late Contact Info) Description 03/09/2023 Orders Only Internal Medicine at [address] [phone] Shasta Dixon MD [facility] [place] [address] Social History Tobacco Use Types Packs/Day Years [...] 11/11/2023 3:00 AM EDT [place] [phone] documented as of this encounter Procedures Procedure Name Priority Date/Time Associated Diagnosis Comments EXTERNAL INR RESULTS PANEL Routine 03/09/2023 11:13 AM EST documented in this encounter Results * External INR Results Panel (03/09/2023 11:13 AM EST) POCT INR 2.7 2.5 - 3.5 [facility] Comment:[facility] - Inr Result F rom Android Mobile Application 03/09/2023 11:1 3 AM EST 03/09/2023 11:13 AM EST Shasta Dixon MD POINT OF CARE TEST ORDERABLES Performing Organization Address City/State/[facility] Co de Phone Number [facility] [address] [phone] documented in this encounter Visit Diagnoses Not on filedocumented in this encounter Care Teams Supervisor Last Model Department Relationship Specialty Start Date End Date Briana Timmons APR[place] [place] [address] PCP - General Family Medicine 08/09/21 documented as of this encounter
--- OUTSIDE RECORDS SUMMARY | 2023-11-04 15:09 | XMS_ITS | Encounter Summary ---
[place] [address] Care Team Providers Care Professional Sports Scout Name Role Phone Briana Timmons APRN Primary Care Provider [phone] Encounter Details Date Type Department Care Team (Latest Contact Info) Description 03/16/2023 3:00 AM EST Anti-Coag Telephone Visit [facility] [place] [address], RN Antiphospholipid antibody----- [...] Progress Notes * Tucker Lane RN - 03/16/2023 3:00 AM EST Images from the original note were not included. Anticoagulation Therapy Note Anticoagulation Summary As of 03/16/2023 INR goal: 2.5-3.5 TTR: 46.7% (6 mo) INR used for dosin.1 (03/16/2023) Warfarin maintenance plan: 6 mg (5 mg x 1 and 1 mg x 1) every Thu, Thu; 5 mg (5 mg x 1) all other days Weekly warfarin total: 37 mg No change documented: Tucker Lane RN Plan last modified: Tucker Lane RN (02/23/2023) Next INR check: 03/23/2023 Priority: 1 Week Target end date: Indefinite Indications Antiphospholipid antibody----- use antiXa level to dose heparin. 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] Pulmonary embolism unspecified chronicity unspecified pulmonary embolism type unspecified whether acute cor pulmonale present [I26.99] Anticoagulation Episode Summary INR check location: Home Draw Preferred lab: [facility] Send INR reminders to: [facility] Comments: Home Monitor [phone] (M) Anticoagulation Care Providers Provider Role Specialty Phone number Karel Jerry MD Responsible Cardiology [phone] Patient Assessment Service Type: INR Test Result [...] admission, Bruising, Other complaints Warfarin Therapy Instructions March 2023 Details Sun Thu Yaritza Fri Sat 1 2 3 4 5 6 7 8 9 10 11 6 mg See details 12 5 mg 13 6 mg 14 5 mg 15 5 mg 16 5 mg 17 5 mg 18 6 mg 19 20 21 22 23 24 25 26 27 28 29 30 31 Date Details 03/16 This INR check Date of next INR: 03/23/2023 How to take your warfarin dose To take: 5 mg Take 1 of the 5 mg tablets. To take: 6 mg Take 1 of the 5 mg tablets and 1 of the 1 mg tablets. Description 03/16 INR in range today, spoke with [...] would have shared access to patient files ([facility]). Continue with 5mg daily, test INR [...] 11/11/2023 3:00 AM EDT Anti-Coag Telephone Visit [facility] [place] [address] documented as of this encounter Visit Diagnoses Diagnosis Antiphospholipid antibody----- use antiXa level to dose heparin. Primary hypercoagulable state Aortic valve prosthesis present Heart valve replaced by other means Pulmonary embolism, unspecified chronicity, unspecified pulmonary embolism type, unspecified whether acute cor pulmonale present documented in this encounter Care Teams Professional Sports Scout Relationship Specialty Start Date End Date Briana Timmons, [place] [address] PCP - General Family Medicine 08/09/21 documented as of this encounter
--- OUTSIDE RECORDS SUMMARY | 2023-11-04 15:09 | XMS_ITS | Encounter Summary ---
[place] [address] Care Team Providers Care Watch Dial Maker Name Role Phone Briana Timmons APRN Primary Care Provider [phone] Encounter Details Date Type Department Care Team (Latest Contact Info) Description 12/29/2022 3:00 AM EDT Anti-Coag Telephone Visit [facility] [place] [address] Shasta Delaney, [facility] Antiphospholipid antibody [...] * Shasta Delaney [facility] - 12/29/2022 3:00 AM EDT Images from the original note were not included. Anticoagulation Therapy Note Anticoagulation Summary As of 12/29/2022 INR goal: 2.5-3.5 TTR: 44.8 % (5.8 mo) INR used for dosing: No new INR was available at the time of this encounter. Warfarin maintenance plan: 4 mg (1 mg x 4) every Mon; 5 mg (5 mg x 1) all other days; Starting 12/29/2022 Weekly warfarin total: 34 mg Plan last modified: Shasta Delaney [facility] (12/15/2022) Next INR check: 12/30/2022 Target end date: Indefinite Indications Antiphospholipid antibody----- use antiXa level to dose heparin. 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] Pulmonary embolism unspecified chronicity unspecified pulmonary embolism type unspecified whether acute cor pulmonale present [I26.99] Anticoagulation Episode Summary INR check location: Home Draw Preferred lab: [facility] Send INR reminders to: [facility] Comments: Home Monitor [phone] (M) Anticoagulation Care Providers Provider Role Specialty Phone number Gerardo Richter MD Responsible Cardiology [phone] Patient Assessment Warfarin Therapy Instructions December 2022 Details Sun Mon Tue Wed Yaritza Fri Sat 1 2 3 4 5 6 7 8 9 10 11 12 13 14 15 16 17 18 19 20 21 22 23 24 25 4 mg See details 26 5 mg 27 28 29 30 Date Details 12/29 This INR check Date of next INR: 12/30/2022 How to take your warfarin dose To take: 4 mg Take 4 of the 1 mg tablets. To take: 5 mg Take 1 of the 5 mg tablets. Description 12/29/22: Cecilia's home monitor is and she will have INR done tomorrow at [facility]. Orders faxed. Take 4mg tonight. 12/24/22: INR has come down however it is still slightly above range. Decrease tonight's dose 3% then resume current weekly dose. Test INR Thursday. Cecilia still has a cough but is not currently taking any medications. She agreed to call [facility] if her condition changes and starts taking any new medications. 12/22/22: INR supra-therapeutic. Cecilia was called by the Urgent Care clinic last week stating her Strep was positive (when I spoke to her on Thursday, her rapid was negative). She also had an ear infection. She was started on Cipro 500mg BID x 5 days and took Fluconazole 150mg x 1 dose on 12/18/22. Ryann was taking Tylenol Cold &Flu. All of the above likely contributing factors to INR today. Co nfirmed all above medications are completed, no fever/vomiting/diarrhea and no sxs of bleeding. Explained she needs to all [facility] to report any worsening of sxs, new medications or new concerns for bleeding. Hold warfarin x 2 days and test INR Thursday. 12/15/22: INR slightly above range after receiving 34mg over the past 7 days. Since current maintenance dose is set to 35mg/wk, I will drop it dose 3% and have her test INR in 1 week. Cecilia reports being sick,. Sore throat and body aches. Was seen today at local clinic, COVID and Strep negative. Only medication being used for sxs management is Tylenol. 12/09/22: INR remains low. I spoke to Cecilia and confirmed phone number on record is correct. Cecilia isnot getting our voice mails and thus she has not increased her dose at all and has been taking 3mg Thu/Thu and 5mg all other days. Increase weekly dose 13% in addition to a 3% dose increase tonight. Test INR in 6 days. Cecilia has not heard from Cardiology yet regarding who her new provider is. Follow up message sent to Dr. Dixon. documented in this encounter Plan of Treatment Upcoming Encounters Date Type Department Care Team (Late st Contact Info) Description 11/11/2023 3:00 AM EDT Anti-Coag Telephone Visit [facility] [place] [address] documented as of this encounter Visit Diagnoses Diagnosis Antiphospholipid antibody syndrome Primary hypercoagulable state Aortic valve prosthesis present Heart valve replaced by other means Pulmonary embolism, unspecified chronicity, unspecified pulmonary embolism type, unspecified whether acute cor pulmonale present documented in this encounter Care Teams Watch Dial Maker Relationship Specialty Start Date End [place] [address] PCP - General Family Medicine 08/09/21 documented as of this encounter
--- OUTSIDE RECORDS SUMMARY | 2023-11-04 15:09 | XMS_ITS | Encounter Summary ---
[place] [address] Care Team Providers Care Cable Assembler And Swager Name Role Phone Briana Timmons APRN Primary Care Provider [phone] Encounter Details Date Type Department Care Team (Latest Contact Info) Description 12/09/2022 3:00 AM EDT Anti-Coag Telephone Visit [facility] Centralized [place] [phone] Shasta Delaney, [facility] Antiphospholipid antibody syndrome; Aortic valve [...] * Shasta Delaney [facility] - 12/09/2022 3:00 AM EDT Images from the original note were not included. Anticoagulation Therapy Note Anticoagulation Summary As of 12/09/2022 INR goal: 2.5-3.5 TTR: 52.7 % (6 mo) INR used for dosin.9 (12/09/2022) Warfarin maintenance plan: 5 mg (5 mg x 1) every day; Starting 12/09/2022 Weekly warfarin total: 35 mg Plan last modified: Tucker Lane RN (12/03/2022) Next INR check: 12/15/2022 Priority: 1 Week Target end date: Indefinite Indications Antiphospholipid antibody----- use antiXa level to dose heparin. 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] Pulmonary embolism unspecified chronicity unspecified pulmonary embolism type unspecified whether acute cor pulmonale present [I26.99] Anticoagulation Episode Summary INR check location: Home Draw Preferred lab: [facility] Send INR reminders to: [facility] Comments: Home Monitor [phone] (M) Anticoagulation Care Providers Provider Role Specialty Phone number Gerardo Richter MD Responsible Cardiology [phone] Patient Assessment Service Type: INR Test Result INR Result: Out of Range Clinical Outcomes Negatives: Major bleeding event, Thromboembolic event, Anticoagulation-related hospital admission, Anticoagulation-related ED visit Patient Findings Positives: Change in health (seasonal allergies causing headaches), Missed doses (was taking a lower dose) Negatives: Upcoming Travel, Planning or Currently , Recent Fall, Signs/symptoms of thrombosis, Signs/symptoms of bleeding, Laboratory test error suspected, Change in alcohol use, Change in activity, Upcoming invasive procedure, Emergency department visit, Upcoming dental procedure, Extra doses, Change in medications, Change in diet/appetite, Hospital admission, Bruising, Other complaints Warfarin Therapy Instructions December 2022 Details Sun Mon Thu Fri Sat 1 2 3 4 5 6 mg See details 6 5 mg 7 5 mg 8 5 mg 9 5 mg 10 5 mg 11 5 mg 12 13 14 15 16 17 18 19 20 21 22 23 24 25 26 27 28 29 30 Date Details 12/09 This INR check Date of next INR: 12/15/2022 How to take your warfarin dose To take: 5 mg Take 1 of the 5 mg tablets. To take: 6 mg Take 1 of the 5 mg tablets and 1 of the 1 mg tablets. Description 12/09/22: INR remains low. I spoke to Cecilia and confirmed phone number on record is correct. Cecilia isnot getting our voice mails and thus she has not increased her dose at all and has been taking 3mg Mon/Fri and 5mg all other days. Increase weekly dose 13% in addition to a 3% dose increase tonight. Test INR in 6 days. Cecilia has not heard from Cardiology yet regarding who her new provider is. Follow up message sent to Dr. Dixon. 12/03 INR still slightly low today, left VM for Cecilia to call clinic with any changes, increase maintenance dose 6.1%, retest 1 week. 11/25 INR low today, left VM for [...] health or medications and confirmed current dose. documented in this encounter Plan of Treatment Upcoming Encounters Date Type Department Care Team (Late st Contact Info) Description 11/11/2023 3:00 AM EDT Anti-Coag Telephone Visit [facility] Centralized [place] [phone] documented as of this encounter Visit Diagnoses Diagnosis Antiphospholipid antibody syndrome Primary hypercoagulable state Aortic valve prosthesis present Heart valve replaced by other means Pulmonary embolism, unspecified chronicity, unspecified pulmonary embolism type, unspecified whether acute cor pulmonale present documented in this encounter Care Teams Cable Assembler And Swager Relationship Specialty Start Date End Date Briana Timmons, INSULATION WORKER FURNACE IN[place] [address] PCP - General Family Medicine 08/09/21 documented as of this encounter
--- OUTSIDE RECORDS SUMMARY | 2023-11-04 15:09 | XMS_ITS | Encounter Summary ---
[place] [address] Care Team Providers Care Engine Cleaner Name Role Phone Briana Timmons APRN Primary Care Provider [phone] Encounter Details Date Type Department Care Team (Late st Contact Info) Description 12/31/2022 External Results [facility] Centralized [place] [address] Estelle Clarke Social History Tobacco Use Types Packs/Day Years [...] 11/11/2023 3:00 AM EDT Anti-Coag Telephone Visit [facility] [place] [address] documented as of this encounter Procedures Procedure Name Priority Date/Time Associated Diagnosis Comments EXTERNAL INR RESULTS PANEL Routine 12/30/2022 12:00 PM EDT documented in this encounter Results * (ABNORMAL) External INR Results Panel (12/30/2022 12:00 PM EDT) POCT INR 2.4(A) 0.9 - 1.1 EXTERNAL LAB Comment:[facility] Blood 12/30/2022 12:0 0 PM EDT Historical Provider POINT OF CARE GERSON T ORDERABLES EXTERNAL LAB documented in this encounter Visit Diagnoses Not on filedocumented in this encounter Care Teams Engine Cleaner Relationship Specialty Start Date End Date Briana Timmons, FLATWORK [place] [address] PCP - General Family Medicine 08/09/21 documented as of this encounter
--- OUTSIDE RECORDS SUMMARY | 2023-11-04 15:09 | XMS_ITS | Encounter Summary ---
[place] [address] Care Team Providers Care Doctor Of Medicine Name Role Phone Briana Timmons APRN Primary Care Provider Encounter Details Date Type Department Care Team (Latest Contact Info) Description 11/18/2022 3:00 AM EDT Anti-Coag Telephone Visit [facility] [place]ized [place] [address], PAIGE Antiphospholipid antibody syndrome; Aortic [...] Progress Notes * Tucker Lane RN - 11/18/2022 3:00 AM EDT Images from the original note were not included. Anticoagulation Therapy Telephone Note: Anticoagulation Summary As of 11/18/2022 INR goal: 2.5-3.5 TTR: 64.3 % (6 mo) INR used for dosin.3 (11/18/2022) Warfarin maintenance plan: 3 mg (1 mg x 3) every Tue, Fri; 5 mg (5 mg x 1) all other days; Starting11/18/2022 Weekly warfarin total: 31 mg No change documented: Tucker Lane RN Plan last modified: Tucker Lane RN (10/14/2022) Next INR check: 11/25/2022 Priority: 1 Week Target end date: Indefinite Indications Antiphospholipid antibody----- use antiXa level to dose heparin. 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] Pulmonary embolism unspecified chronicity unspecified pulmonary embolism type unspecified whether acute cor pulmonale present [I26.99] Anticoagulation Episode Summary INR check location: Home Draw Preferred lab: [facility] Send INR reminders to: [facility] Comments: Home Monitor [phone] (M) Anticoagulation Care Providers Provider Role Specialty Phone number Gerardo Richter MD Responsible Cardiology [phone] Patient Assessment Service Type: INR Test Result [...] admission, Bruising, Other complaints Warfarin Therapy Instructions November 2022 Details Sun Mon Thu Wed Yaritza Fri Sat 1 2 3 4 5 6 7 8 9 10 11 12 13 14 15 3 mg See details 16 5 mg 17 5 mg 18 3 mg 19 5 mg 20 5 mg 21 5 mg 22 3 mg 23 24 25 26 27 28 29 30 31 Date Details 11/18 This INR check Date of next INR: 11/25/2022 How to take your warfarin dose To take: 3 mg Take 3 of the 1 mg tablets. To take: 5 mg Take 1 of the 5 mg tablets. Description 11/18 INR slightly low today, spoke with Cecilia, denies any changes, maintain current dose, retest 1 week. 11/11/22 INR 3.1 In range. Continue with current dose. LVM Checks weekly. No changes noted with severo.. Encouraged her to call back with any [...] Telephone Visit [facility] [place] [address] documented as of this encounter Visit Diagnoses Diagnosis Antiphospholipid antibody syndrome Primary hypercoagulable state Aortic valve prosthesis present Heart valve replaced by other means Pulmonary embolism, unspecified chronicity, unspecified pulmonary embolism type, unspecified whether acute cor pulmonale present documented in this encounter Care Teams Doctor Of Medicine Relationship Specialty Start Date End Date Briana Timmons, FLEXOGRAPHIC PRESS HELPER Aniya [facility] [address] PCP - General Family Medicine 08/09/21 documented as of this encounter
--- OUTSIDE RECORDS SUMMARY | 2023-11-04 15:09 | XMS_ITS | Encounter Summary ---
[place] [address] Care Team Providers Care Recorder Of Deeds Name Role Phone Briana Timmons APRN Primary Care Provider [phone] Encounter Details Date Type Department Care Team (Latest Contact Info) Description 12/24/2022 3:00 AM EDT Anti-Coag Telephone Visit [facility] [place] [address] Shasta Delaney [facility] Antiphospholipid antibody syndrome; Aortic valve prosthesis present; [...] this encounter Progress Notes * Shasta Delaney [facility] - 12/24/2022 3:00 AM EDT Images from the original note were not included. Anticoagulation Therapy Note Anticoagulation Summary As of 12/24/2022 INR goal: 2.5-3.5 TTR: 46.3 % (6 mo) INR used for dosin.8 (12/24/2022) Warfarin maintenance plan: 4 mg (1 mg x 4) every Mon; 5 mg (5 mg x 1) all other days; Starting 12/24/2022 Weekly warfarin total: 34 mg Plan last modified: Shasta Delaney [facility] (12/15/2022) Next INR check: 12/29/2022 Target end date: Indefinite Indications Antiphospholipid antibody----- use antiXa level to dose heparin. 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] Pulmonary embolism unspecified chronicity unspecified pulmonary embolism type unspecified whether acute cor pulmonale present [I26.99] Anticoagulation Episode Summary INR check location: Home Draw Preferred lab: [facility] Send INR reminders to: [facility] Comments: Home Monitor [phone] (M) Anticoagulation Care Providers Provider Role Specialty Phone number Gerardo Richter MD Responsible Cardiology [phone] Patient Assessment Service Type: INR Test Result INR Result: Out of Range Clinical Outcomes Negatives: Major bleeding event, Thromboembolic event, Anticoagulation-related hospital admission, Anticoagulation-related ED visit Patient Findings Positives: Change in health (lingering cough), Missed doses (held x 2) Negatives: Upcoming Travel, Planning or Currently , Recent Fall, Signs/symptoms of thrombosis, Signs/symptoms of bleeding, Laboratory test error suspected, Change in alcohol use, Change in activity, Upcoming invasive procedure, Emergency department visit, Upcoming dental procedure, Extra doses, Change in medications, Change in diet/appetite, Hospital admission, Bruising, Other complaints Warfarin Therapy Instructions December 2022 Details Sun Mon Thu Wed Yaritza Fri Sat 1 2 3 4 5 6 7 8 9 10 11 12 13 14 15 16 17 18 19 20 4 mg See details 21 5 mg 22 5 mg 23 5 mg 24 5 mg 25 4 mg 26 27 28 29 30 Date Details 12/24 This INR check Date of next INR: 12/29/2022 How to take your warfarin dose To take: 4 mg Take 4 of the 1 mg tablets. To take: 5 mg Take 1 of the 5 mg tablets. Description 12/24/22: INR has come down however it is still slightly above range. Decrease tonight's dose 3% then resume current weekly dose. Test INR Thursday. Cecilia still has a cough but is not currently taking any medications. She agreed to call [facility] if her condition changes and starts taking [...] of bleeding. Explained she needs to all [facility] to report any worsening of sxs, new [...] Upcoming Encounters Date Type Department Care Team (Kelly st Contact Info) Description 11/11/2023 3:00 AM EDT Anti-Coag Telephone Visit [facility] [place] [address] documented as of this encounter Visit Diagnoses Diagnosis Antiphospholipid antibody syndrome Primary hypercoagulable state Aortic valve prosthesis present Heart valve replaced by other means Pulmonary embolism, unspecified chronicity, unspecified pulmonary embolism type, unspecified whether acute cor pulmonale present documented in this encounter Care Teams Recorder Of Deeds Relationship Specialty Start Date End Date Briana Timmons, SPACE SCHEDULER [place] [address] PCP - General Family Medicine 08/09/21 documented as of this encounter
--- OUTSIDE RECORDS SUMMARY | 2023-11-04 15:09 | XMS_ITS | Encounter Summary ---
[place] [address] Care Team Providers Care Parole Officer Name Role Phone Briana Timmons [employer] Primary Care Provider [phone] Encounter Details Date Type Department Care Team (Latest Contact Info) Description 12/24/2022 Travel Social History Tobacco Use Types Packs/Day Years [...] 11/11/2023 3:00 AM EDT [place] [phone] documented as of this encounter Visit Diagnoses Not on filedocumented in this encounter Care Teams Parole Officer Relationship Specialty Start Date End Date Briana Timmons APRN [address] [place], [place] [id number] PCP - General Family Medicine 08/09/21 documented as of this encounter
--- OUTSIDE RECORDS SUMMARY | 2023-11-04 15:09 | XMS_ITS | Encounter Summary ---
[place] [address] Care Team Providers Care Ramp Boss Name Role Phone Briana Timmons APRN Primary Care Provider [phone] Encounter Details Date Type Department Care Team (Latest Contact Info) Description 01/26/2023 Anti-Coag Telephone Visit [facility] [place] [address] Sofia Warren [facility] Antiphospholipid antibody----- use antiXa level [...] as of this encounter Progress Notes * Sofia Warren [facility] - 01/26/2023 10:10 AM EDT Anticoagulation provider reassigned to Karel Jerry per cardiology leadership. documented in this encounter Plan of Treatment Upcoming Encounters Date Type Department Care Team (Late st Contact Info) Description 11/11/2023 3:00 AM EDT Anti-Coag Telephone Visit [facility] [place] [address] documented as of this encounter Visit Diagnoses Diagnosis Antiphospholipid antibody----- use antiXa level to dose heparin. Primary hypercoagulable state Aortic valve prosthesis present Heart valve replaced by other means Pulmonary embolism, unspecified chronicity, unspecified pulmonary embolism type, unspecified whether acute cor pulmonale present documented in this encounter Care Teams Ramp Boss Relationship Specialty Start Date End Date Briana Timmons, RISK MANAGEMENT ANALYST [place] [address] PCP - General Family Medicine 08/09/21 documented as of this encounter
--- OUTSIDE RECORDS SUMMARY | 2023-11-04 15:09 | XMS_ITS | Encounter Summary ---
[place] [address] Care Team Providers Care Data Science And Iot Manager Name Role Phone Briana Timmons APRN Primary Care Provider [phone] Encounter Details Date Type Department Care Team (Latest Contact Info) Description 09/02/2022 3:00 AM EDT Anti-Coag Telephone Visit [facility] [place] [id number] RN Antiphospholipid antibody syndrome; Aortic valve prosthesis present; [...] Progress Notes * Tucker Lane RN - 09/02/2022 3:00 AM EDT Images from the original note were not included. Anticoagulation Therapy Note Anticoagulation Summary As of 09/02/2022 INR goal: 2.5-3.5 TTR: 73.3 % (6 mo) INR used for dosin.5 (09/02/2022) Warfarin maintenance plan: 5 mg (5 mg x 1) every day; Starting 09/02/2022 Weekly warfarin total: 35 mg No change documented: Tucker Lane RN Plan last modified: Tucker Lane RN (03/03/2022) Next INR check: 09/09/2022 Priority: 1 Week Target end date: Indefinite Indications Antiphospholipid antibody----- use antiXa level to dose heparin. 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] Pulmonary embolism unspecified chronicity unspecified pulmonary embolism type unspecified whether acute cor pulmonale present [I26.99] Anticoagulation Episode Summary INR check location: Home Draw Preferred lab: [facility] Send INR reminders to: [facility] Comments: Home Monitor [phone] (M) Anticoagulation Care Providers Provider Role Specialty Phone number Gerardo Richter MD Responsible Cardiology [phone] Patient Assessment Service Type: INR Test Result [...] Bruising, Other complaints Warfarin Therapy Instructions August 2022 Details Thu Sat 1 2 3 [...] 5 mg tablets. Warfarin Therapy Instructions September 2022 Details Thu Fri Sat 1 5 mg 2 5 mg 3 5 mg 4 5 mg 5 5 mg 6 5 mg 7 8 9 10 11 12 13 14 15 16 17 18 19 20 21 22 23 24 25 26 27 28 29 Date Details No additional details Date of next INR: 09/09/2022 How to take your warfarin dose To take: 5 mg Take 1 of the 5 mg tablets. Description 09/02 INR in range today, spoke with [...] on 08/05/22. Cecilia gets weekly calls from [facility] requesting INR. Follow up on 08/15/22. 08/05/22: INR in range. Cecilia will start her bridge plan tomorrow. Reviewed today over [facility]. Her prescription was sent in my Dr. Arturo Aviles from [facility]. Dose was calculated using 1.5mg/kg/day.Labs are current [...] note and were sent to Cecilia via [employer]. documented in this encounter Plan of Treatment Upcoming Encounters Date Type Department Care Team (Late st Contact Info) Description 11/11/2023 3:00 AM EDT Anti-Coag Telephone Visit [facility] [place] [address] documented as of this encounter Visit Diagnoses Diagnosis Antiphospholipid antibody syndrome Primary hypercoagulable state Aortic valve prosthesis present Heart valve replaced by other means Pulmonary embolism, unspecified chronicity, unspecified pulmonary embolism type, unspecified whether acute cor pulmonale present documented in this encounter Care Teams Data Science And Iot Manager Relationship Specialty Start Date End Date Briana Timmons, SENIOR SOLUTIONS CONSULTANT [place] [address] PCP - General Family Medicine 08/09/21 documented as of this encounter
--- OUTSIDE RECORDS SUMMARY | 2023-11-04 15:09 | XMS_ITS | Encounter Summary ---
[place] [address] Care Team Providers Care Software Development Analyst Name Role Phone Briana Timmons APRN Primary Care Provider [phone] Encounter Details Date Type Department Care Team (Latest Contact Info) Description 01/12/2023 3:00 AM EDT Anti-Coag Telephone Visit [facility] [place] [phone], PAIGE Antiphospholipid antibody syndrome; Aortic [...] Progress Notes * Tucker Lane RN - 01/12/2023 3:00 AM EDT Images from the original note were not included. Anticoagulation Therapy Note Anticoagulation Summary As of 01/12/2023 INR goal: 2.5-3.5 TTR: 40.0 % (6 mo) INR used for dosin.5 (01/12/2023) Warfarin maintenance plan: 5 mg (5 mg x 1) every day; Starting 01/12/2023 Weekly warfarin total: 35 mg No change documented: Tucker Lane RN Plan last modified: Bee Dimas RN (01/06/2023) Next INR check: 01/19/2023 Priority: 1 Week Target end date: Indefinite Indications Antiphospholipid antibody----- use antiXa level to dose heparin. 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] Pulmonary embolism unspecified chronicity unspecified pulmonary embolism type unspecified whether acute cor pulmonale present [I26.99] Anticoagulation Episode Summary INR check location: Home Draw [facility] Send INR reminders to: [facility] Comments: Home Monitor [phone] (M) Anticoagulation Care Providers Provider Role Specialty Phone number Gerardo Richter MD Responsible Cardiology [phone] Patient Assessment Service Type: INR Test Result INR Result: In Range Clinical Outcomes Negatives: Major bleeding event, Thromboembolic event, Anticoagulation-related hospital admission, Anticoagulation-related ED visit Patient Findings Positives: Emergency department visit Negatives: Upcoming Travel, Planning or Currently , Recent Fall, Signs/symptoms of thrombosis, Signs/symptoms of bleeding, Laboratory test error suspected, Change in health, Change in alcoholuse, Change in activity, Upcoming invasive procedure, Upcoming dental procedure, Missed doses, Extra doses, Change in medications, Change in diet/appetite, Hospital admission, Bruising, Other complaints Warfarin Therapy Instructions January 2023 Details Sun Thu Wed Yaritza Fri Sat 1 2 3 4 5 6 7 8 9 5 mg See details 10 5 mg 11 5 mg 12 5 mg 13 5 mg 14 5 mg 15 5 mg 16 5 mg 17 18 19 20 21 22 23 24 25 26 27 28 29 30 31 Date Details 01/12 This INR check Date of next INR: 01/19/2023 How to take your warfarin dose To take: 5 mg Take 1 of the 5 mg tablets. Description 01/12 INR in range today, spoke with Cecilia, reports she is in the ED currently for coughing/illness,she agrees to call us to update the clinic with any changes, maintain current dose, retest 1 week. 01/06/23 INR subtherapeutic. Increase to 35mg/wk which is 6% increase from last week 33mg/wk dosing.Recheck 1 week. M with plan and she was advised to [...] taking any medications. She agreed to call [facility] if her condition changes and starts taking any new medications. 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
--- OUTSIDE RECORDS SUMMARY | 2023-11-04 15:09 | XMS_ITS | Encounter Summary ---
[place] [address] Care Team Providers Care Web Content & Social Media Manager Name Role Phone Briana Timmons APRN Primary Care Provider [phone] Encounter Details Date Type Department Care Team (Latest Contact Info) Description 12/03/2022 3:00 AM EDT Anti-Coag Telephone Visit [facility] [place] [address], [place] Antiphospholipid antibody syndrome; Aortic [...] Progress Notes * Tucker Lane RN - 12/03/2022 3:00 AM EDT Images from the original note were not included. Anticoagulation Therapy Telephone Note: Anticoagulation Summary As of 12/03/2022 INR goal: 2.5-3.5 TTR: 56.0 % (6 mo) INR used for dosin.3 (12/03/2022) Warfarin maintenance plan: 5 mg (5 mg x 1) every day; Starting 12/03/2022 Weekly warfarin total: 35 mg Plan last modified: Tucker Lane RN (12/03/2022) Next INR check: 12/10/2022 Priority: 1 Week Target end date: Indefinite Indications Antiphospholipid antibody----- use antiXa level to dose heparin. 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] Pulmonary embolism unspecified chronicity unspecified pulmonary embolism type unspecified whether acute cor pulmonale present [I26.99] Anticoagulation Episode Summary INR check location: Home Draw Preferred lab: [facility] Send INR reminders to: [facility] Comments: Home Monitor [phone] (M) Anticoagulation Care Providers Provider Role Specialty Phone number Gerardo Richter MD Responsible Cardiology [phone] Patient Assessment Service Type: INR Test Result INR Result: Out of Range Warfarin Therapy Instructions November 2022 Details Thuu Fri Sat 1 2 3 4 5 6 7 8 9 10 11 12 13 14 15 16 17 18 19 20 21 22 23 24 25 26 27 28 29 30 5 mg See details 31 5 mg Date Details 12/03 This INR check How to take your warfarin dose To take: 5 mg Take 1 of the 5 mg tablets. Warfarin Therapy Instructions December 2022 Details Thu Yaritza Fri Sat 1 5 mg 2 5 mg 3 5 mg 4 5 mg 5 5 mg 6 5 mg 7 8 9 10 11 12 13 14 15 16 17 18 19 20 21 22 23 24 25 26 27 28 29 30 Date Details No additional details Date of next INR: 12/10/2022 How to take your warfarin dose To take: 5 mg Take 1 of the 5 mg tablets. 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
--- OUTSIDE RECORDS SUMMARY | 2023-11-04 15:09 | XMS_ITS | Encounter Summary ---
[place] [address] Care Team Providers Care Dietary Aide Name Role Phone Briana Timmons APRN Primary Care Provider [phone] Encounter Details Date Type Department Care Team (Latest Contact Info) Description 03/02/2023 3:00 AM EST Anti-Coag Telephone Visit [facility] [place] [address], RN Antiphospholipid antibody----- [...] Progress Notes * Tucker Lane RN - 03/02/2023 3:00 AM EST Images from the original note were not included. Anticoagulation Therapy Note Anticoagulation Summary As of 03/02/2023 INR goal: 2.5-3.5 TTR: 38.9% (6 mo) INR used for dosin.6 (03/02/2023) Warfarin maintenance plan: 6 mg (5 mg x 1 and 1 mg x 1) every Thu, Thu; 5 mg (5 mg x 1) all other days Weekly warfarin total: 37 mg No change documented: Tucker Lane RN Plan last modified: Tucker Lane RN (02/23/2023) Next INR check: 03/09/2023 Priority: 1 Week Target end date: Indefinite Indications Antiphospholipid antibody----- use antiXa level to dose heparin. 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] Pulmonary embolism unspecified chronicity unspecified pulmonary embolism type unspecified whether acute cor pulmonale present [I26.99] Anticoagulation Episode Summary INR check location: Home Draw Preferred lab: [facility] Send INR reminders to: [facility] Comments: Home Monitor [phone] (M) Anticoagulation Care Providers Provider Role Specialty Phone number Karel Jerry MD Responsible Cardiology [phone] Patient Assessment Service Type: INR Test Result [...] admission, Bruising, Other complaints Warfarin Therapy Instructions February 2023 Details Thuu Fri Sat 1 2 3 4 5 6 7 8 9 10 11 12 13 14 15 16 17 18 19 20 21 22 23 24 25 26 27 6 mg See details 28 5 mg 29 6 mg 30 5 mg Date Details 03/02 This INR check How to take your warfarin dose To take: 5 mg Take 1 of the 5 mg tablets. To take: 6 mg Take 1 of the 5 mg tablets and 1 of the 1 mg tablets. Warfarin Therapy Instructions March 2023 Details Thu Yaritza Fri Sat 1 5 mg 2 5 mg 3 5 mg 4 6 mg 5 6 7 8 9 10 11 12 13 14 15 16 17 18 19 20 21 22 23 24 25 26 27 28 29 30 31 Date Details No additional details Date of next INR: 03/09/2023 How to take your warfarin dose To take: 5 mg Take 1 of the 5 mg tablets. To take: 6 mg Take 1 of the 5 mg tablets and 1 of the 1 mg tablets. Description 03/02 INR in range today, spoke with [...] no records of recent ED visit in [facility] - she does not reside in an area where I would have shared access to patient files ([facility]). Continue with 5mg daily, test INR in [...] Visit [facility] [place] [address] documented as of this encounter Visit Diagnoses Diagnosis Antiphospholipid antibody----- use antiXa level to dose heparin. 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
--- OUTSIDE RECORDS SUMMARY | 2023-11-04 15:09 | XMS_ITS | Encounter Summary ---
[place] [address] Care Team Providers Care Hydrostatic Tester Name Role Phone Briana Timmons APRN Primary Care Provider [phone] Encounter Details Date Type Department Care Team (Latest Contact Info) Description 12/15/2022 3:00 AM EDT Anti-Coag Telephone Visit [facility] Centralized [place] [phone]aney, [facility] Antiphospholipid antibody syndrome; Aortic valve [...] encounter Progress Notes * Shasta Delaney [facility] - 12/15/2022 3:00 AM EDT Images from the original note were not included. Anticoagulation Therapy Note Anticoagulation Summary As of 12/15/2022 INR goal: 2.5-3.5 TTR: 51.3 % (6 mo) INR used for dosin.6 (12/15/2022) Warfarin maintenance plan: 4 mg (1 mg x 4) every Mon; 5 mg (5 mg x 1) all other days; Starting 12/15/2022 Weekly warfarin total: 34 mg Plan last modified: Shasta Delaney [facility] (12/15/2022) Next INR check: 12/22/2022 Priority: 1 Week Target end date: Indefinite Indications Antiphospholipid antibody----- use antiXa level to dose heparin. 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] Pulmonary embolism unspecified chronicity unspecified pulmonary embolism type unspecified whether acute cor pulmonale present [I26.99] Anticoagulation Episode Summary INR check location: Home Draw Preferred lab: [facility] [employer] [facility] Send INR reminders to: [facility] Comments: Home Monitor [phone] (M) Anticoagulation Care Providers Provider Role Specialty Phone number Gerardo Richter MD Responsible Cardiology [phone] Patient Assessment Service Type: INR Test Result INR Result: Out of Range Clinical Outcomes Negatives: Major bleeding event, Thromboembolic event, Anticoagulation-related hospital admission, Anticoagulation-related ED visit Patient Findings Positives: Change in health (Sick - sore throat, body aches), Change in medications (Tylenol for cold sxs prn) Negatives: Upcoming Travel, Planning or Currently , [...] 5 6 7 8 9 10 11 4 mg See details 12 5 mg 13 5 mg 14 5 mg 15 5 mg 16 5 mg 17 5 mg 18 4 mg 19 20 21 22 23 24 25 26 27 28 29 30 Date Details 12/15 This INR check Date of next INR: 12/22/2022 How to take your warfarin dose To take: 4 mg Take 4 of the 1 mg tablets. To take: 5 mg Take 1 of the 5 mg tablets. Description 12/15/22: INR slightly above range after receiving [...] 3:00 AM EDT Anti-Coag Telephone Visit 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
--- OUTSIDE RECORDS SUMMARY | 2023-11-04 15:09 | XMS_ITS | Encounter Summary ---
[place] [address] Care Team Providers Care Executive Kitchen Manager Name Role Phone Briana Timmons APRN Primary Care Provider [phone] Encounter Details Date Type Department Care Team (Latest Contact Info) Description 01/19/2023 3:00 AM EDT Anti-Coag Telephone Visit [facility] [place] [address] Ramón Castillo [facility] Antiphospholipid antibody----- use antiXa level to [...] encounter Progress Notes * Ramón Castillo [facility] - 01/19/2023 3:00 AM EDT Images from the original note were not included. Anticoagulation Therapy Note Anticoagulation Summary As of 01/19/2023 INR goal: 2.5-3.5 TTR: 40.7% (6 mo) INR used for dosin.1 (01/19/2023) Warfarin maintenance plan: 5 mg (5 mg x 1) every day Weekly warfarin total: 35 mg Plan last modified: Bee Dimas RN (01/06/2023) Next INR check: 01/26/2023 Priority: 1 Week Target end date: Indefinite Indications Antiphospholipid antibody----- use antiXa level to dose heparin. 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] Pulmonary embolism unspecified chronicity unspecified pulmonary embolism type unspecified whether acute cor pulmonale present [I26.99] Anticoagulation Episode Summary INR check location: Home Draw Preferred lab: [facility] Send INR reminders to: [facility] Comments: Home Monitor [phone] (M) Anticoagulation Care Providers Provider Role Specialty Phone number Gerardo Richter MD Responsible Cardiology [phone] Patient Assessment Service Type: INR Test Result INR Result: In Range Clinical Outcomes Negatives: Major bleeding event, Thromboembolic event, Anticoagulation-related hospital admission, Anticoagulation-related ED visit Patient Findings Positives: Change in health (cough/illness improving, no new meds after ED visit) Negatives: Upcoming Travel, Planning or Currently , Recent Fall, Signs/symptoms of thrombosis, Signs/symptoms of bleeding, Laboratory test error suspected, Change in alcohol use, Change in activity, Upcoming invasive procedure, Emergency department visit, Upcoming dental procedure, Missed doses, Extra doses, Change in medications, Change in diet/appetite, Hospital admission, Bruising, Other complaints Warfarin Therapy Instructions January 2023 Details Sun Mon Tue Wed Yaritza Fri Sat 1 2 3 4 5 6 7 8 9 10 11 12 13 14 15 16 5 mg See details 17 5 mg 18 5 mg 19 5 mg 20 5 mg 21 5 mg 22 5 mg 23 5 mg 24 25 26 27 28 29 30 31 Date Details 01/19 This INR check Date of next INR: 01/26/2023 How to take your warfarin dose To take: 5 mg Take 1 of the 5 mg tablets. Description 01/19: INR remains in range today. There are no records of recent ED visit in system - she does not reside in an area where I would have shared access to patient files ([facility]). Continue with 5mg daily, test INR [...] she will have INR done tomorrow at [facility]. Orders faxed. Take 4mg tonight. 12/24/22: INR has come down however it is still slightly above range. Decrease tonight's dose 3% then resume current weekly dose. Test INR Thursday. Cecilia still has a cough but is not currently taking any medications. She agreed to call [facility] if her condition changes and starts taking any new medications. documented in this encounter Plan of Treatment Upcoming Encounters Date Type Department Care Team (Late st Contact Info) Description 11/11/2023 3:00 AM EDT Anti-Coag Telephone Visit [facility] [place] [address] documented as of this encounter Visit Diagnoses Diagnosis Antiphospholipid antibody----- use antiXa level to dose heparin. Primary hypercoagulable state Aortic valve prosthesis present Heart valve replaced by other means Pulmonary embolism, unspecified chronicity, unspecified pulmonary embolism type, unspecified whether acute cor pulmonale present documented in this encounter Care Teams Executive Kitchen Manager Relationship Specialty Start Date End Date Briana Timmons, FLOORLEADER [address] [place] [address] PCP - General Family Medicine 08/09/21 documented as of this encounter
--- OUTSIDE RECORDS SUMMARY | 2023-11-04 15:09 | XMS_ITS | Encounter Summary ---
[place] [address] Care Team Providers Care Gold Stamper Name Role Phone Briana Timmons APRN Primary Care Provider [phone] Encounter Details Date Type Department Care Team (Latest Contact Info) Description 02/03/2023 3:00 AM EDT Anti-Coag Telephone Visit [facility] Centralized [place] [address] Shasta Delaney [facility] Antiphospholipid antibody----- use antiXa level to dose [...] this encounter Progress Notes * Shasta Delaney [facility] - 02/03/2023 3:00 AM EDT Images from the original note were not included. Anticoagulation Therapy Note Anticoagulation Summary As of 02/03/2023 INR goal: 2.5-3.5 TTR: 43.3% (6 mo) INR used for dosin.9 (02/03/2023) Warfarin maintenance plan: 5 mg (5 mg x 1) every day Weekly warfarin total: 35 mg Plan last modified: Bee Dimas RN (01/06/2023) Next INR check: 02/09/2023 Priority: 1 Week Target end date: Indefinite Indications Antiphospholipid antibody----- use antiXa level to dose heparin. 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] Pulmonary embolism unspecified chronicity unspecified pulmonary embolism type unspecified whether acute cor pulmonale present [I26.99] Anticoagulation Episode Summary INR check location: Home Draw Preferred lab: [facility] Send INR reminders to: [facility] Comments: Home Monitor [phone] (M) Anticoagulation Care Providers Provider Role Specialty Phone number Karel Jerry MD Responsible Cardiology [phone] Patient Assessment Service Type: INR Test Result INR Result: Out of Range Clinical Outcomes Negatives: Major bleeding event, Thromboembolic event, Anticoagulation-related hospital admission, Anticoagulation-related ED visit Patient Findings Positives: Change in medications (diarrhea x 3 days) Negatives: Upcoming Travel, Planning or Currently , Recent Fall, Signs/symptoms of thrombosis, Signs/symptoms of bleeding, Laboratory test error suspected, Change in health, Change in alcoholuse, Change in activity, Upcoming invasive procedure, Emergency department visit, Upcoming dental procedure, Missed doses, Extra doses, Change in diet/appetite, Hospital admission, Bruising, Other complaints Warfarin Therapy Instructions January 2023 Details Thu Sat 1 2 3 4 5 6 7 8 9 10 11 12 13 14 15 16 17 18 19 20 21 22 23 24 25 26 27 28 29 30 31 Hold See details Date Details 02/03 This INR check How to take your warfarin dose Hold Do not take your warfarin dose. See the Details table to the right for additional instructions. Warfarin Therapy Instructions February 2023 Details Thu Fri Sat 1 5 mg 2 5 mg 3 5 mg 4 5 mg 5 5 mg 6 5 mg 7 8 9 10 11 12 13 14 15 16 17 18 19 20 21 22 23 24 25 26 27 28 29 30 Date Details No additional details Date of next INR: 02/09/2023 How to take your warfarin dose To take: 5 mg Take 1 of the 5 mg tablets. Description 02/03/23: INR above range after 3 days [...] would have shared access to patient files ([facility]). Continue with 5mg daily, test INR [...] as of 4:45pm, will try lab tomorrow. documented in this encounter Plan of Treatment Upcoming Encounters Date Type Department Care Team (Late st Contact Info) Description 11/11/2023 3:00 AM EDT Anti-Coag Telephone Visit [facility] Centralized [place] [address] documented as of this encounter Visit Diagnoses Diagnosis Antiphospholipid antibody----- use antiXa level to dose heparin. 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
--- OUTSIDE RECORDS SUMMARY | 2023-11-04 15:09 | XMS_ITS | Encounter Summary ---
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 Social History Tobacco Use Types Packs/Day Years [...] Encounters Date Type Department Care Team (Late Contact Info) Description 11/11/2023 3:00 AM EDT Anti-Coag Telephone Visit [facility] [place] [phone] documented as of this encounter Visit Diagnoses Diagnosis Aortic valve prosthesis present Heart valve replaced by other means 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
--- OUTSIDE RECORDS SUMMARY | 2023-11-04 15:09 | XMS_ITS | Encounter Summary ---
[place] [address] Care Team Providers Care Otr Owner Operator Truck Driver Name Role Phone Briana Timmons APRN Primary Care Provider [phone] Encounter Details Date Type Department Care Team (Latest Contact Info) Description 02/16/2023 3:00 AM EST Anti-Coag Telephone Visit [facility] Centralized [place] [phone] Fili Pickett, [facility] Antiphospholipid antibody----- use antiXa level [...] as of this encounter Progress Notes * Fili Pickett [facility] - 02/16/2023 3:00 AM EST Images from the original note were not included. Anticoagulation Therapy Note Anticoagulation Summary As of 02/16/2023 INR goal: 2.5-3.5 TTR: 42.0% (6 mo) INR used for dosin.4 (02/16/2023) Warfarin maintenance plan: 6 mg (5 mg x 1 and 1 mg x 1) every Mon; 5 mg (5 mg x 1) all other days Weekly warfarin total: 36 mg Plan last modified: Fili Pickett, [facility] (02/16/2023) Next INR check: 02/23/2023 Priority: 1 Week Target end date: Indefinite Indications Antiphospholipid antibody----- use antiXa level to dose heparin. 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] Pulmonary embolism unspecified chronicity unspecified pulmonary embolism type unspecified whether acute cor pulmonale present [I26.99] Anticoagulation Episode Summary INR check location: Home Draw Preferred lab: [facility] Send INR reminders to: [facility] Comments: Home Monitor [phone] (M) Anticoagulation Care Providers Provider Role Specialty Phone number Karel Jerry MD Responsible Cardiology [phone] Patient Assessment Service Type: INR Test Result [...] complaints Warfarin Therapy Instructions February 2023 Details Sun Thuu Fri Sat 1 2 3 4 5 6 7 8 9 10 11 12 13 6 mg See details 14 5 mg 15 5 mg 16 5 mg 17 5 mg 18 5 mg 19 5 mg 20 6 mg 21 22 23 24 25 26 27 28 29 30 Date Details 02/16 This INR check Date of next INR: 02/23/2023 How to take your warfarin dose To take: 5 mg Take 1 of the 5 mg tablets. To take: 6 mg Take 1 of the 5 mg tablets and 1 of the 1 mg tablets. Description 02/16 INR slightly below range. Increase dose [...] would have shared access to patient files ([facility]). Continue with 5mg daily, test INR [...] Visit [facility] Centralized [place] [address] documented as of this encounter Visit Diagnoses Diagnosis Antiphospholipid antibody----- use antiXa level to dose heparin. Primary hypercoagulable state Aortic valve prosthesis present Heart valve replaced by other means Pulmonary embolism, unspecified chronicity, unspecified pulmonary embolism type, unspecified whether acute cor pulmonale present documented in this encounter Care Teams Otr Owner Operator Truck Driver Relationship Specialty Start Date End Date Briana Timmons, AGRICULTURAL SYSTEMS SPECIALIST [address] [place] [address] PCP - General Family Medicine 08/09/21 documented as of this encounter
--- OUTSIDE RECORDS SUMMARY | 2023-11-04 15:09 | XMS_ITS | Encounter Summary ---
[place] [address] Care Team Providers Care Distributing Clerk Name Role Phone Briana Timmons APRN Primary Care Provider [phone] Encounter Details Date Type Department Care Team (Late Contact Info) Description 03/02/2023 Orders Only Internal Medicine at [address] [phone] Shasta Dixon MD [facility] [place] [address] Social History Tobacco Use Types Packs/Day Years [...] 11/11/2023 3:00 AM EDT [place] [phone] documented as of this encounter Procedures Procedure Name Priority Date/Time Associated Diagnosis Comments EXTERNAL INR RESULTS PANEL Routine 03/02/2023 10:28 AM EST documented in this encounter Results * External INR Results Panel (03/02/2023 10:28 AM EST) POCT INR 2.6 2.5 - 3.5 MDINR Comment:mdINR - Inr Result F rom Android Mobile Application 03/02/2023 10:2 8 AM EST 03/02/2023 10:28 AM EST Shasta Dixon MD POINT OF CARE TEST ORDERABLES Performing Organization Address City/State/[facility] Co de Phone Number MDINR [address] [phone] documented in this encounter Visit Diagnoses Not on filedocumented in this encounter Care Teams Distributing Clerk Relationship Specialty Start Date End Date Briana Timmons APRN [address] [place] [address] PCP - General Family Medicine 08/09/21 documented as of this encounter
--- OUTSIDE RECORDS SUMMARY | 2023-11-04 15:09 | XMS_ITS | Encounter Summary ---
[place] [address] Care Team Providers Care Oracle Soa Developer Name Role Phone Briana Timmons APRN Primary Care Provider [phone] Encounter Details Date Type Department Care Team (Latest Contact Info) Description 10/14/2022 3:00 AM EDT Anti-Coag Telephone Visit [facility] [place] [phone], [place] Antiphospholipid antibody syndrome; Aortic [...] Progress Notes * Tucker Lane RN - 10/14/2022 3:00 AM EDT Images from the original note were not included. Anticoagulation Therapy Note Anticoagulation Summary As of 10/14/2022 INR goal: 2.5-3.5 TTR: 67.3 % (6 mo) INR used for dosin.1 (10/14/2022) Warfarin maintenance plan: 3 mg (1 mg x 3) every Tue, Fri; 5 mg (5 mg x 1) all other days; Starting10/14/2022 Weekly warfarin total: 31 mg Plan last modified: Tucker Lane RN (10/14/2022) Next INR check: 10/21/2022 Priority: 1 Week Target end date: Indefinite Indications Antiphospholipid antibody----- use antiXa level to dose heparin. 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] Pulmonary embolism unspecified chronicity unspecified pulmonary embolism type unspecified whether acute cor pulmonale present [I26.99] Anticoagulation Episode Summary INR check location: Home Draw [facility] Send INR reminders to: [facility] Comments: Home Monitor [phone] (M) Anticoagulation Care Providers Provider Role Specialty Phone number Gerardo Richter MD Responsible Cardiology [phone] Patient Assessment Service Type: INR Test Result INR Result: Out of Range Clinical Outcomes Negatives: Major bleeding event, Thromboembolic event, Anticoagulation-related hospital admission, Anticoagulation-related ED visit Patient Findings Positives: Change in health (diarrhea) Negatives: Upcoming Travel, Planning or Currently , Recent Fall, Signs/symptoms of thrombosis, Signs/symptoms of bleeding, Laboratory test error suspected, Change in alcohol use, Change in activity, Upcoming invasive procedure, Emergency department visit, Upcoming dental procedure, Missed doses, Extra doses, Change in medications, Change in diet/appetite, Hospital admission, Bruising, Other complaints Warfarin Therapy Instructions October 2022 Details Sun Mon Tue Wed Yaritza Fri Sat 1 2 3 4 5 6 7 8 9 10 11 3 mg See details 12 5 mg 13 5 mg 14 3 mg 15 5 mg 16 5 mg 17 5 mg 18 3 mg 19 20 21 22 23 24 25 26 27 28 29 30 31 Date Details 10/14 This INR check Date of next INR: 10/21/2022 How to take your warfarin dose To take: 3 mg Take 3 of the 1 mg tablets. To take: 5 mg Take 1 of the 5 mg tablets. Description 10/14 INR unchanged from last week despite [...] on 08/05/22. Cecilia gets weekly calls from [facility] requesting INR. Follow up on 08/15/22. documented in this encounter Plan of Treatment Upcoming Encounters Date Type Department Care Team (Late st Contact Info) Description 11/11/2023 3:00 AM EDT Anti-Coag Telephone Visit [facility] [place] [address] documented as of this encounter Visit Diagnoses Diagnosis Antiphospholipid antibody syndrome Primary hypercoagulable state Aortic valve prosthesis present Heart valve replaced by other means Pulmonary embolism, unspecified chronicity, unspecified pulmonary embolism type, unspecified whether acute cor pulmonale present documented in this encounter Care Teams Oracle Soa Developer Relationship Specialty Start Date End Date Briana Timmons, EXECUTIVE LEGAL SECRETARY [place] [place] [address] PCP - General Family Medicine 08/09/21 documented as of this encounter
--- OUTSIDE RECORDS SUMMARY | 2023-11-04 15:09 | XMS_ITS | Encounter Summary ---
[place] [address] Care Team Providers Care Supervising Nurse Name Role Phone Briana Timmons APRN Primary Care Provider [phone] Encounter Details Date Type Department Care Team (Latest Contact Info) Description 09/23/2022 3:00 AM EDT Anti-Coag Telephone Visit [facility] Centralized [place] [phone], [place] Antiphospholipid antibody syndrome; Aortic [...] Progress Notes * Tucker Lane RN - 09/23/2022 3:00 AM EDT Images from the original note were not included. Anticoagulation Therapy Note Anticoagulation Summary As of 09/23/2022 INR goal: 2.5-3.5 TTR: 68.5 % (6 mo) INR used for dosin.1 (09/23/2022) Warfarin maintenance plan: 6 mg (5 mg x 1 and 1 mg x 1) every Tue, Sat; 5 mg (5 mg x 1) all other days; Starting 09/23/2022 Weekly warfarin total: 37 mg No change documented: Tucker Lane RN Plan last modified: Shasta Delaney [facility] (09/16/2022) Next INR check: 09/30/2022 Priority: 1 Week Target end date: Indefinite Indications Antiphospholipid antibody----- use antiXa level to dose heparin. 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] Pulmonary embolism unspecified chronicity unspecified pulmonary embolism type unspecified whether acute cor pulmonale present [I26.99] Anticoagulation Episode Summary INR check location: Home Draw Preferred lab: [facility] Send INR reminders to: [facility] Comments: Home Monitor [phone] (M) Anticoagulation Care Providers Provider Role Specialty Phone number Gerardo Richter MD Responsible Cardiology [phone] Patient Assessment Service Type: INR Test Result INR Result: In Range Warfarin Therapy Instructions September 2022 Details Sun Thu Sat 1 2 3 4 5 6 7 8 9 10 11 12 13 14 15 16 17 18 19 20 6 mg See details 21 5 mg 22 5 mg 23 5 mg 24 6 mg 25 5 mg 26 5 mg 27 6 mg 28 29 30 Date Details 09/23 This INR check Date of next INR: 09/30/2022 How to take your warfarin dose To take: 5 mg Take 1 of the 5 mg tablets. To take: 6 mg Take 1 of the 5 mg tablets and 1 of the 1 mg tablets. Description 09/23 INR in range today, left VM [...] 11/11/2023 3:00 AM EDT Anti-Coag Telephone Visit [facility] [place] [address] documented as of this encounter Visit Diagnoses Diagnosis Antiphospholipid antibody syndrome Primary hypercoagulable state Aortic valve prosthesis present Heart valve replaced by other means Pulmonary embolism, unspecified chronicity, unspecified pulmonary embolism type, unspecified whether acute cor pulmonale present documented in this encounter Care Teams Supervising Nurse Relationship Specialty Start Date End Date Briana Timmons, [place] [address] PCP - General Family Medicine 08/09/21 documented as of this encounter
--- OUTSIDE RECORDS SUMMARY | 2023-11-04 15:09 | XMS_ITS | Encounter Summary ---
[place] [address] Care Team Providers Care Assembler Piano Name Role Phone Briana Timmons APRN Primary Care Provider [phone] Encounter Details Date Type Department Care Team (Latest Contact Info) Description 09/09/2022 3:00 AM EDT Anti-Coag Telephone Visit [facility] [place] [phone], [place] Antiphospholipid antibody syndrome; Aortic [...] Progress Notes * Tucker Lane RN - 09/09/2022 3:00 AM EDT Images from the original note were not included. Anticoagulation Therapy Note Anticoagulation Summary As of 09/09/2022 INR goal: 2.5-3.5 TTR: 73.4 % (6 mo) INR used for dosin.4 (09/09/2022) Warfarin maintenance plan: 5 mg (5 mg x 1) every day; Starting 09/09/2022 Weekly warfarin total: 35 mg No change documented: Tucker Lane, RN Plan last modified: Tucker Lane RN (03/03/2022) Next INR check: 09/16/2022 Priority: 1 Week Target end date: Indefinite Indications Antiphospholipid antibody----- use antiXa level to dose heparin. 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] Pulmonary embolism unspecified chronicity unspecified pulmonary embolism type unspecified whether acute cor pulmonale present [I26.99] Anticoagulation Episode Summary INR check location: Home Draw Preferred lab: [facility] Send INR reminders to: [facility] Comments: Home Monitor [phone] (M) Anticoagulation Care Providers Provider Role Specialty Phone number Gerardo Richter MD Responsible Cardiology [phone] Patient Assessment Service Type: INR Test Result INR Result: Out of Range Warfarin Therapy Instructions September 2022 Details Sun Mon Tue Wed Yaritza Fri Sat 1 2 3 4 5 6 5 mg See details 7 5 mg 8 5 mg 9 5 mg 10 5 mg 11 5 mg 12 5 mg 13 5 mg 14 15 16 17 18 19 20 21 22 23 24 25 26 27 28 29 30 Date Details 09/09 This INR check Date of next INR: 09/16/2022 How to take your warfarin dose To take: 5 mg Take 1 of the 5 mg tablets. Description 09/09 INR slightly low today, left VM [...] on 08/05/22. Cecilia gets weekly calls from [facility] requesting INR. Follow up on 08/15/22. 08/05/22: INR in range. Cecilia will start her bridge plan tomorrow. Reviewed today over [facility]. Her prescription was sent in my Dr. Arturo Aviles from [facility]. Dose was calculated using 1.5mg/kg/day.Labs are [...] note and were sent to Cecilia via [employer]. documented in this encounter Plan of Treatment Upcoming Encounters Date Type Department Care Team (Late Contact Info) Description 11/11/2023 3:00 AM EDT Anti-Coag Telephone Visit [facility] [place] [address] documented as of this encounter Visit Diagnoses Diagnosis Antiphospholipid antibody syndrome Primary hypercoagulable state Aortic valve prosthesis present Heart valve replaced by other means Pulmonary embolism, unspecified chronicity, unspecified pulmonary embolism type, unspecified whether acute cor pulmonale present documented in this encounter Care Teams Assembler Piano Relationship Specialty Start Date End Date Briana Timmons, COCOA ROASTER Aniya [address] [facility] [place] [address] PCP - General Family Medicine 08/09/21 documented as of this encounter
--- OUTSIDE RECORDS SUMMARY | 2023-11-04 15:09 | XMS_ITS | Encounter Summary ---
[place] [address] Care Team Providers Care Ornamental Brick Installer Name Role Phone Briana Timmons APRN Primary Care Provider Encounter Details Date Type Department Care Team (Late Contact Info) Description 09/09/2022 External Results [facility] Information Services [address] [place] [phone] Provider, His Benigno MD None Social History [...] Upcoming Encounters Date Type Department Care Team ([facility] Contact Info) Description 11/11/2023 3:00 AM EDT Anti-Coag Telephone Visit [facility] [place] [address] documented as of this encounter Procedures Procedure Name Priority Date/Time Associated Diagnosis Comments EXTERNAL INR RESULTS PANEL Routine 09/09/2022 9:43 AM EDT documented in this encounter Results * (ABNORMAL) External INR Results Panel (09/09/2022 9:43 AM EDT) POCT INR 2.4(A) HOME MONITOR Blood 09/09/2022 9:43 AM EDT Historical Provider POINT OF CARE GERSON T ORDERABLES HOME MONITOR documented in this encounter Visit Diagnoses Not on filedocumented in this encounter Care Teams Ornamental Brick Installer Relationship Specialty Start Date End Date Briana Timmons, ROUTE SUPERVISOR [place] [place] [address] PCP - General Family Medicine 08/09/21 documented as of this encounter
--- OUTSIDE RECORDS SUMMARY | 2023-11-04 15:09 | XMS_ITS | Encounter Summary ---
[place] [address] Care Team Providers Care Demographic Analyst Name Role Phone Briana Timmons APRN Primary Care Provider [phone] Reason for Visit * Reason Onset Date Comments Medication Refill 03/02/2023 Encounter Details Date Type Department Care Team (Late st Contact Info) Description 03/02/2023 Refill Cardiology at [address] [phone] Karel Jerry MD [facility] [place] [address] Medication Refill Social History Tobacco Use Types [...] Visit [facility] [place] [address] documented as of this encounter Visit Diagnoses Diagnosis Aortic valve prosthesis present Heart valve replaced by other means 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
--- OUTSIDE RECORDS SUMMARY | 2023-11-04 15:09 | XMS_ITS | Encounter Summary ---
[place] [address] Care Team Providers Care Garment Liner Name Role Phone Briana Timmons APRN Primary Care Provider Encounter Details Date Type Department Care Team (Latest Contact Info) Description 03/09/2023 3:00 AM EST Anti-Coag Telephone Visit [facility] Centralized [place] [address], RN Antiphospholipid antibody----- [...] Progress Notes * Tucker Lane RN - 03/09/2023 3:00 AM EST Images from the original note were not included. Anticoagulation Therapy Note Anticoagulation Summary As of 03/09/2023 INR goal: 2.5-3.5 TTR: 42.8% (6 mo) INR used for dosin.7 (03/09/2023) Warfarin maintenance plan: 6 mg (5 mg x 1 and 1 mg x 1) every Thu, Thu; 5 mg (5 mg x 1) all other days Weekly warfarin total: 37 mg No change documented: Tucker Lane RN Plan last modified: Tucker Lane RN (02/23/2023) Next INR check: 03/16/2023 Priority: 1 Week Target end date: Indefinite Indications Antiphospholipid antibody----- use antiXa level to dose heparin. 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] Pulmonary embolism unspecified chronicity unspecified pulmonary embolism type unspecified whether acute cor pulmonale present [I26.99] Anticoagulation Episode Summary INR check location: Home Draw Preferred lab: [facility] Send INR reminders to: [facility] Comments: Home Monitor [phone] (M) Anticoagulation Care Providers Provider Role Specialty Phone number Karel Jerry MD Responsible Cardiology [phone] Patient Assessment Service Type: INR Test Result [...] Yaritza Fri Sat 1 2 3 4 6 mg See details 5 5 mg 6 6 mg 7 5 mg 8 5 mg 9 5 mg 10 5 mg 11 6 mg 12 13 14 15 16 17 18 19 20 21 22 23 24 25 26 27 28 29 30 31 Date Details 03/09 This INR check Date of next INR: 03/16/2023 How to take your warfarin dose To take: 5 mg Take 1 of the 5 mg tablets. To take: 6 mg Take 1 of the 5 mg tablets and 1 of the 1 mg tablets. Description 03/09 INR in range today, spoke with [...] would have shared access to patient files ([facility]). Continue with 5mg daily, test INR in [...] Visit [facility] Centralized [place] [address] documented as of this encounter Visit Diagnoses Diagnosis Antiphospholipid antibody----- use antiXa level to dose heparin. Primary hypercoagulable state Aortic valve prosthesis present Heart valve replaced by other means Pulmonary embolism, unspecified chronicity, unspecified pulmonary embolism type, unspecified whether acute cor pulmonale present documented in this encounter Care Teams Garment Liner Relationship Specialty Start Date End Date Iain, Briana B, ROLLING [place] [address] PCP - General Family Medicine 08/09/21 documented as of this encounter
--- OUTSIDE RECORDS SUMMARY | 2023-11-04 15:09 | XMS_ITS | Encounter Summary ---
[place] [address] Care Team Providers Care Exhibitions Curator Name Role Phone Briana Timmons APRN Primary Care Provider Encounter Details Date Type Department Care Team (Latest Contact Info) Description 02/09/2023 3:00 AM EST Anti-Coag Telephone Visit [facility] Centralized [place] [address], RN Antiphospholipid antibody----- [...] Progress Notes * Tucker Lane RN - 02/09/2023 3:00 AM EST Images from the original note were not included. Anticoagulation Therapy Note Anticoagulation Summary As of 02/09/2023 INR goal: 2.5-3.5 TTR: 43.7% (6 mo) INR used for dosin.1 (02/09/2023) Warfarin maintenance plan: 5 mg (5 mg x 1) every day Weekly warfarin total: 35 mg No change documented: Tucker Lane RN Plan last modified: Bee Dimas RN (01/06/2023) Next INR check: 02/16/2023 Priority: 1 Week Target end date: Indefinite Indications Antiphospholipid antibody----- use antiXa level to dose heparin. 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] Pulmonary embolism unspecified chronicity unspecified pulmonary embolism type unspecified whether acute cor pulmonale present [I26.99] Anticoagulation Episode Summary INR check location: Home Draw Preferred lab: [facility] Send INR reminders to: [facility] Comments: Home Monitor [phone] (M) Anticoagulation Care Providers Provider Role Specialty Phone number Karel Jerry MD Responsible Cardiology [phone] Patient Assessment Service Type: INR Test Result [...] Warfarin Therapy Instructions February 2023 Details Sun Mon Thuu Fri Sat 1 2 3 4 5 6 5 mg See details 7 5 mg 8 5 mg 9 5 mg 10 5 mg 11 5 mg 12 5 mg 13 5 mg 14 15 16 17 18 19 20 21 22 23 24 25 26 27 28 29 30 Date Details 02/09 This INR check Date of next INR: 02/16/2023 How to take your warfarin dose To take: 5 mg Take 1 of the 5 mg tablets. Description 02/09 INR low today following dose hold, [...] would have shared access to patient files ([facility]). Continue with 5mg daily, test [...] Visit [facility] Centralized [place]tico[place] [address] documented as of this encounter Visit Diagnoses Diagnosis Antiphospholipid antibody----- use antiXa level to dose heparin. Primary hypercoagulable state Aortic valve prosthesis present Heart valve replaced by other means Pulmonary embolism, unspecified chronicity, unspecified pulmonary embolism type, unspecified whether acute cor pulmonale present documented in this encounter Care Teams Exhibitions Curator Relationship Specialty Start Date End Date Briana Timmons, CONSTRUCTION PROJECT MANAGER [place] [address] [place] [address] PCP - General Family Medicine 08/09/21 documented as of this encounter
--- OUTSIDE RECORDS SUMMARY | 2023-11-04 15:09 | XMS_ITS | Encounter Summary ---
[place] [address] Care Team Providers Care Batch Mixing Truck Driver Name Role Phone Briana Timmons APRN Primary Care Provider [phone] Encounter Details Date Type Department Care Team (Latest Contact Info) Description 01/06/2023 4:00 AM EDT Anti-Coag Telephone Visit [facility] Centralized [place] [address] Bee Dimas RN Antiphospholipid antibody syndrome; Aortic valve prosthesis [...] as of this encounter Progress Notes * Bee Dimas RN - 01/06/2023 4:00 AM EDT Images from the original note were not included. Anticoagulation Therapy Note Anticoagulation Summary As of 01/06/2023 INR goal: 2.5-3.5 TTR: 41.5 % (6 mo) INR used for dosin.1 (01/06/2023) Warfarin maintenance plan: 5 mg (5 mg x 1) every day; Starting 01/06/2023 Weekly warfarin total: 35 mg Plan last modified: Bee Dimas RN (01/06/2023) Next INR check: 01/13/2023 Priority: 1 Week Target end date: Indefinite Indications Antiphospholipid antibody----- use antiXa level to dose heparin. 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] Pulmonary embolism unspecified chronicity unspecified pulmonary embolism type unspecified whether acute cor pulmonale present [I26.99] Anticoagulation Episode Summary INR check location: Home Draw Preferred lab: Sp[facility] Send INR reminders to: [facility] Comments: Home Monitor [phone] (M) Anticoagulation Care Providers Provider Role Specialty Phone number Gerardo Richter MD Responsible Cardiology [phone] Patient Assessment Service Type: INR Test Result INR Result: Out of Range Warfarin Therapy Instructions January 2023 Details Sun Mon Tue Wed Yaritza Fri Sat 1 2 3 5 mg See details 4 5 mg 5 5 mg 6 5 mg 7 5 mg 8 5 mg 9 5 mg 10 5 mg 11 12 13 14 15 16 17 18 19 20 21 22 23 24 25 26 27 28 29 30 31 Date Details 01/06 This INR check Date of next INR: 01/13/2023 How to take your warfarin dose To take: 5 mg Take 1 of the 5 mg tablets. Description 01/06/23 INR subtherapeutic. Increase to 35mg/wk which [...] taking any medications. She agreed to call [facility] if her condition changes and starts taking [...] Fluconazole 150mg x 1 dose on 12/18/22. Shealso was taking Tylenol Cold &Flu. All of the above likely contributing factors to INR today. Co nfirmed all above medications are completed, no fever/vomiting/diarrhea and no sxs of bleeding. Explained she needs to all [facility] to report any worsening of sxs, new medications or new concerns for bleeding. Hold warfarin x 2 days and test INR Thursday documented in this encounter Miscellaneous Notes * Addendum Note - Natalee Brandt LPN - 01/06/2023 4:00 AM EDTAddended by: NATALEE BRANDT on: 01/09/2023 12:11 PM Modules accepted: Orders documented in this encounter Plan of Treatment Upcoming Encounters Date Type Department Care Team (Late st Contact Info) Description 11/11/2023 3:00 AM EDT Anti-Coag Telephone Visit [facility] Centralized [place] [address] documented as of this encounter Visit Diagnoses Diagnosis Antiphospholipid antibody syndrome Primary hypercoagulable state Aortic valve prosthesis present Heart valve replaced by other means Pulmonary embolism, unspecified chronicity, unspecified pulmonary embolism type, unspecified whether acute cor pulmonale present documented in this encounter Care Teams Batch Mixing Truck Driver Relationship Specialty Start Date End Date Briana Timmons, BUTTON SEWER HAND [place] [address] PCP - General Family Medicine 08/09/21 documented as of this encounter
--- OUTSIDE RECORDS SUMMARY | 2023-11-04 15:09 | XMS_ITS | Encounter Summary ---
[place] [address] Care Team Providers Care Health Technical Writer Name Role Phone Briana Timmons APRN Primary Care Provider [phone] Encounter Details Date Type Department Care Team (Latest Contact Info) Description 12/22/2022 3:00 AM EDT Anti-Coag Telephone Visit [facility] [place] [address] Shasta Delaney, [facility] Antiphospholipid antibody syndrome; Aortic valve prosthesis present; [...] [facility] - 12/22/2022 3:00 AM EDT Images from the original note were not included. Anticoagulation Therapy Note Anticoagulation Summary As of 12/22/2022 INR goal: 2.5-3.5 TTR: 47.4 % (6 mo) INR used for dosin.9 (12/22/2022) Warfarin maintenance plan: 4 mg (1 mg x 4) every Mon; 5 mg (5 mg x 1) all other days; Starting 12/22/2022 Weekly warfarin total: 34 mg Plan last modified: Shasta Delaney [facility] (12/15/2022) Next INR check: 12/23/2022 Target end date: Indefinite Indications Antiphospholipid antibody----- use antiXa level to dose heparin. 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] Pulmonary embolism unspecified chronicity unspecified pulmonary embolism type unspecified whether acute cor pulmonale present [I26.99] Anticoagulation Episode Summary INR check location: Home Draw Preferred lab: [facility] Send INR reminders to: [facility] Comments: Home Monitor [phone] (M) Anticoagulation Care Providers Provider Role Specialty Phone number Gerardo Richter MD Responsible Cardiology [phone] Patient Assessment Service Type: INR Test Result INR Result: Out of Range Clinical Outcomes Negatives: Major bleeding event, Thromboembolic event, Anticoagulation-related hospital admission, Anticoagulation-related ED visit Patient Findings Positives: Change in health (strep positive and ear infection), Change in medications (Cipro 500mg BID x 5 days (compelted) and Diflucan 150mg x 1 dose 12/19/22, Tylenol Cold and Flu) Negatives: Upcoming Travel, Planning or Currently , [...] 12 13 14 15 16 17 18 Hold See details Hold 20 21 22 23 24 25 26 27 28 29 30 Date Details 12/22 This INR check Date of next INR: 12/23/2022 How to take your warfarin dose Hold Do not take your warfarin dose. See the Details table to the right for additional instructions. Description 12/22/22: INR supra-therapeutic. Cecilia was called by [...] of bleeding. Explained she needs to all [facility] to report any worsening of sxs, new [...] 11/11/2023 3:00 AM EDT Anti-Coag Telephone Visit [facility] [place] [address] documented as of this encounter Visit Diagnoses Diagnosis Antiphospholipid antibody syndrome Primary hypercoagulable state Aortic valve prosthesis present Heart valve replaced by other means Pulmonary embolism, unspecified chronicity, unspecified pulmonary embolism type, unspecified whether acute cor pulmonale present documented in this encounter Care Teams Health Technical Writer Relationship Specialty Start Date End Date Briana Timmons, FAMILY SERVICE ASSISTANT [place] [address] PCP - General Family Medicine 08/09/21 documented as of this encounter
--- OUTSIDE RECORDS SUMMARY | 2023-11-04 15:09 | XMS_ITS | Encounter Summary ---
[place] [address] Care Team Providers Care Inclusion Special Education Teacher Name Role Phone Briana Timmons APRN Primary Care Provider [phone] Encounter Details Date Type Department Care Team (Late st Contact Info) Description 12/09/2022 External Results [facility] Centralized [place] [address] Estelle Clarke Social History Tobacco Use Types [...] Telephone Visit [facility] [place] [address] documented as of this encounter Procedures Procedure Name Priority Date/Time Associated Diagnosis Comments EXTERNAL INR RESULTS PANEL Routine 12/09/2022 10:52 AM EDT documented in this encounter Results * (ABNORMAL) External INR Results Panel (12/09/2022 10:52 AM EDT) POCT INR 1.9(A) 0.9 - 1.1 HOME MONITOR Blood 12/09/2022 10:5 2 AM EDT Historical Provider POINT OF CARE GERSON T ORDERABLES HOME MONITOR documented in this encounter Visit Diagnoses Not on filedocumented in this encounter Care Teams Inclusion Special Education Teacher Relationship Specialty Start Date End Date Briana Timmons, SPECIAL PROCEDURES TECHNOLOGIST [place] [address] PCP - General Family Medicine 08/09/21 documented as of this encounter
--- OUTSIDE RECORDS SUMMARY | 2023-11-04 15:09 | XMS_ITS | Encounter Summary ---
[place] [address] Care Team Providers Care Integration Developer Name Role Phone Briana Timmons APRN Primary Care Provider [phone] Encounter Details Date Type Department Care Team (Latest Contact Info) Description 10/28/2022 3:00 AM EDT Anti-Coag Telephone Visit [facility] [place] [address] Fili Pickett, [facility] Antiphospholipid antibody syndrome; Aortic valve prosthesis [...] this encounter Progress Notes * Fili Pickett [facility] - 10/28/2022 3:00 AM EDT Images from the original note were not included. Anticoagulation Therapy Note Anticoagulation Summary As of 10/28/2022 INR goal: 2.5-3.5 TTR: 65.7 % (6 mo) INR used for dosin.2 (10/28/2022) Warfarin maintenance plan: 3 mg (1 mg x 3) every Tu, Fri; 5 mg (5 mg x 1) all other days; Starting10/28/2022 Weekly warfarin total: 31 mg Plan last modified: Tucker Lane RN (10/14/2022) Next INR check: 11/04/2022 Priority: 1 Week Target end date: Indefinite Indications Antiphospholipid antibody----- use antiXa level to dose heparin. 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] Pulmonary embolism unspecified chronicity unspecified pulmonary embolism type unspecified whether acute cor pulmonale present [I26.99] Anticoagulation Episode Summary INR check location: Home Draw Preferred lab: [facility] Send INR reminders to: [facility] Comments: Home Monitor [phone] (M) Anticoagulation Care Providers Provider Role Specialty Phone number Gerardo Richter MD Responsible Cardiology [phone] Patient Assessment Service Type: INR Test Result [...] complaints Warfarin Therapy Instructions October 2022 Details Thu Sat 1 2 3 4 5 6 7 8 9 10 11 12 13 14 15 16 17 18 19 20 21 22 23 24 25 3 mg See details 26 5 mg 27 5 mg 28 3 mg 29 5 mg 30 5 mg 31 5 mg Date Details 10/28 This INR check How to take your warfarin dose To take: 3 mg Take 3 of the 1 mg tablets. To take: 5 mg Take 1 of the 5 mg tablets. Warfarin Therapy Instructions November 2022 Details Thu Sat 1 3 mg 2 3 4 5 6 7 8 9 10 11 12 13 14 15 16 17 18 19 20 21 22 23 24 25 26 27 28 29 30 31 Date Details No additional details Date of next INR: 11/04/2022 How to take your warfarin dose To take: 3 mg Take 3 of the 1 mg tablets. Description 10/28 INR in range. Continue on current [...] [facility] [place] [place] [address] documented as of this encounter Visit Diagnoses Diagnosis Antiphospholipid antibody syndrome Primary hypercoagulable state Aortic valve prosthesis present Heart valve replaced by other means Pulmonary embolism, unspecified chronicity, unspecified pulmonary embolism type, unspecified whether acute cor pulmonale present documented in this encounter Care Teams Integration Developer Relationship Specialty Start Date End Date Briana Timmons, [place] [address] PCP - General Family Medicine 08/09/21 documented as of this encounter
--- OUTSIDE RECORDS SUMMARY | 2023-11-04 15:09 | XMS_ITS | Encounter Summary ---
[place] [address] Care Team Providers Care Customer Relations Assistant Name Role Phone Briana Timmons APRN Primary Care Provider Encounter Details Date Type Department Care Team (Latest Contact Info) Description 02/23/2023 3:00 AM EST Anti-Coag Telephone Visit [facility] Centralized [place] [address], RN Antiphospholipid antibody----- [...] Progress Notes * Tucker Lane RN - 02/23/2023 3:00 AM EST Images from the original note were not included. Anticoagulation Therapy Note Anticoagulation Summary As of 02/23/2023 INR goal: 2.5-3.5 TTR: 40.4% (6 mo) INR used for dosin.3 (02/23/2023) Warfarin maintenance plan: 6 mg (5 mg x 1 and 1 mg x 1) every Thu, Thu; 5 mg (5 mg x 1) all other days Weekly warfarin total: 37 mg Plan last modified: Tucker Lane RN (02/23/2023) Next INR check: 03/02/2023 Priority: 1 Week Target end date: Indefinite Indications Antiphospholipid antibody----- use antiXa level to dose heparin. 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] Pulmonary embolism unspecified chronicity unspecified pulmonary embolism type unspecified whether acute cor pulmonale present [I26.99] Anticoagulation Episode Summary INR check location: Home Draw Preferred lab: [facility] Send INR reminders to: [facility] Comments: Home Monitor [phone] (M) Anticoagulation Care Providers Provider Role Specialty Phone number Karel Jerry MD Responsible Cardiology [phone] Patient Assessment Service Type: INR Test Result [...] Warfarin Therapy Instructions February 2023 Details Sun Thu Yaritza Fri Sat 1 2 3 4 5 6 7 8 9 10 11 12 13 14 15 16 17 18 19 20 6 mg See details 21 5 mg 22 6 mg 23 5 mg 24 5 mg 25 5 mg 26 5 mg 27 6 mg 28 29 30 Date Details 02/23 This INR check Date of next INR: 03/02/2023 How to take your warfarin dose To take: 5 mg Take 1 of the 5 mg tablets. To take: 6 mg Take 1 of the 5 mg tablets and 1 of the 1 mg tablets. Description 02/23 INR still slightly low, spoke with [...] would have shared access to patient files ([facility]). Continue with 5mg daily, test INR [...] 11/11/2023 3:00 AM EDT Anti-Coag Telephone Visit [facility] Centralized [place] [address] documented as of this encounter Visit Diagnoses Diagnosis Antiphospholipid antibody----- use antiXa level to dose heparin. Primary hypercoagulable state Aortic valve prosthesis present Heart valve replaced by other means Pulmonary embolism, unspecified chronicity, unspecified pulmonary embolism type, unspecified whether acute cor pulmonale present documented in this encounter Care Teams Customer Relations Assistant Relationship Specialty Start Date End Date Briana Timmons, MASTER CONTROL ENGINEER [address] [place] [address] PCP - General Family Medicine 08/09/21 documented as of this encounter
--- OUTSIDE RECORDS SUMMARY | 2023-11-04 15:09 | XMS_ITS | Encounter Summary ---
[place] [address] Care Team Providers Care Senior Director Marketing Name Role Phone Briana Timmons APRN Primary Care Provider [phone] Reason for Visit * Reason Comments Follow-up Encounter Details Date Type Department Care Team (Late st Contact Info) Description 12/24/2022 1:00 PM EDT Office [place] [id number] Brad Baugh MD [facility] [place] [address] Osteoporosis, unspecified osteoporosis type, unspecified pathological fracture presence; Systemic lupus erythematosus with other organ involvement, unspecified SLE type; Alopecia; High risk medication use; Systemic lupus erythematosus, unspecified SLE type, unspecified organ involvement status; Subacute cough; Aortic valve prosthesis present; Antiphospholipid antibody syndrome; History of total bilateral knee replacement; Dilated cardiomyopathy; Pain in both knees, unspecified chronicity; Chronic anticoagulation; Strep throat; Avascular necrosis Social History Tobacco Use Types Packs/Day Years [...] AM EST documented as of this encounter Last Filed [...] Mass Index 35.53 12/24/2022 12:42 PM EDT documented in this encounter Progress Notes * Brad Baugh MD - 12/24/2022 1:00 PM EDT Rheumatology Clinic: Dr. Baugh 12/24/2022 [id number] Cecilia Dumont is seen in follow-up of her lupus, summarized as below, a major aspect of which hasbeen antiphospholipid antibody syndrome with multiple thrombotic events. She is also status post mechanical AVR and she is on chronic anticoagulation with warfarin. Rheum History Per Dr. Lee' s note from 10/19/2018: # SLE with discoid rash, arthritis, oral nasal ulcers, pleuro-pericarditis and raynaud's phenomenon- Diagnosed when she was 21 years - Treated with cyclophosamide, steroids and rituximab. - 05/14 rituxan ( CD -19 36 in 12/12) and rituxan 04/14/08 and 05/01/08; 04/15 - On Hydroxychloroquine 200 mg PO BID for many years - On Methotrexate 10 mg weekly and Daily folic acid in July 2018 - Methotrexate switched to 15 mg weekly sc and daily folic acid IN 10/2018 # Antiphosphoid lipid antibody syndrome associated with TIA (diplopia and right handed numbness), CVA in distant past, miscarriages, migraine headaches with aura and thrombocytopenia. - On lifelong anticoagulation with coumadin. # Cardiomyopathy with pleuropericarditis. -Endomyocardial biopsy negative for viral changes, no changes of hydroxychloroquine myopathy or other specific etiology. -Recovery of ejection fraction by echocardiogram 2005. -Cardiac cath 03/2012 for evaluation of SOB- normal coranary arteries, Ef 64%, ?peicardial constriction given equalization of Rt and Lt sided pressures - May 24 2017, Aortic valve replacement # On treatment for OA while on prednisone with Actonel and calcium - DEXA 2001 spine -1.0, hip -0.6. Actonel DC'd 10/2008. 5. 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 Arthroscopic debridement for scar tissue. 6. KRYSTAL secondary to ATN from low flow state and cardiomyopathy resolved 7. Alveolar hemorrhage associated with pulmonary edema and Lovenox use- resolved 8. Parvovirus infection 2003 9. Fractured and infected teeth s/p extractions 2013 10. Severe aortic insufficiency- hospitalized from 05/17/2017 to 05/30/2017, status post aortic valvereplacement. Her hospital stay was complicated by gross hematuria. She did undergo cystoscopy for her problems with gross hematuria and that was normal. She has not had further episodes of bleeding since her cystoscopy. Since we have been following her in the lupus clinic on 09/26/2021, the focus has been on her inflammatory arthralgias, predominantly affecting the hands and wrists. With her persistent inflammatory arthralgias, we started her on methotrexate 2 visits ago, a drug that she had been on the past but had GI intolerance to the pill form, and so we put her on injectable. At the last visit on 04/08/2022, we increased her methotrexate to 15 mg a week. She now reports that she feels better on that dose in terms of her hand and wrist symptoms, but she may be having some more hair loss related to that. Shehas been taking folic acid 1 mg a day. She is not on leucovorin. She is perimenopausal. She also has chronic bilateral knee pain despite being status post knee replacements for AVN. She has been evaluated by orthopedics and there is no obvious explanation for the knee pain. Because of her anticoagulation, she can only take Tylenol and use Voltaren gel. She has also had episodes that were thought to be right-sided sciatica, but an MRI in 03/2022 did not confirm a discrete nerve root compression. At her last visit, we identified some ischial bursitis and hamstring insertional tendinitis on the right and thought that perhaps that explains the sciatica-like symptoms. We referred herto physical therapy. When she recently called in looking for a refill on her Plaquenil, the nurses had her schedule this appointment. Today we also talked about a very recent upper respiratory infection for which she went to the walk-in clinic. She was negative for COVID and RSV, but she was found to have strep throat. She was started on Keflex and subsequently given fluconazole for a secondary yeast infection. Unfortunately her INR went up to 6.9 after the antibiotics. [place] in the anticoagulation clinic had her hold the Coumadin and she is drifting back down to the appropriate INR target. She didn't have any episodes of bleeding. She feels better now, except she has a persistent cough that is interfering with her sleep. She asked if we could prescribe something for the cough. Patient Active Problem List Diagnosis Code Depression and anxiety F32.A Dilated cardiomyopathy--- noted in 2003, improved I42.0 Hypertension I10 Systemic lupus erythematosus M32.9 Antiphospholipid antibody----- use antiXa level to dose heparin. D68.61 Cerebral infarction---at age 21 I63.9 JAN on CPAP G47.33, Z99.89 Migraine G43.909 Hyperlipemia E78.5 Chest pain-- normal cors by cath in 2004 and 2011 R07.9 Osteoporosis M81.0 H/O total knee replacement Z96.659 [address] Alegre with severe AI, SLE, and APLS admitted for conversion to heparin prior to AVR. Course c/b gross hematuria, CHARLES, cp, anxiety. Q23.1 Gross hematuria--- while on heparin R31.0 Pulmonary embolism I26.99 Aortic valve prosthesis present Z95.2 Pulmonary embolism, unspecified chronicity, unspecified pulmonary embolism type, unspecified whether acute cor pulmonale present I26.99 Medications 12/24/22 1245 Medication Sig Taking? warfarin (Coumadin) 1 mg tablet Variable Dosing - take 1 to 2 tablets by mouth every evening as directed by the Anticoagulation Clinic Yes warfarin (Coumadin) 5 mg tablet Variable dosing- Take up to one tablet by mouth nightly as directedby the Anticoagulation Clinic Yes metHOTREXate 25 mg/mL Solution Inject 0.4 mLs subcutaneously once a week. Yes Syringe with Needle, Safety 1 mL 27 gauge x 1/2 Syringe 1 Syringe by [facility].(Non- Drug; Combo Route) route once a week. Use weekly to inject methotrexate subcutaneously. Yes diclofenac (Voltaren) 1 % Gel Apply 2 g topically 2 times daily. Yes folic acid (Folvite) 1 mg Tablet Take 1 tablet by mouth daily. Yes enoxaparin (Lovenox) 150 mg/mL Syringe Inject 0.9mL subcutaneously into the abdomen once a day until INR is in therapeutic range Yes atorvastatin (Lipitor) 40 mg Tablet Take 1 tablet by mouth every evening. Yes metoprolol succinate XL (Toprol-XL) 50 mg Tablet Sustained Release 24 hr Take 1 tablet by mouth daily. Yes levothyroxine (Synthroid) 25 mcg Tablet Take 1 tablet by mouth daily. Dosage Unknown Yes FLUoxetine (PROzac) 40 mg Capsule Take 40 mg by mouth daily. Yes hydrOXYchloroQUINE (Plaquenil) 200 mg Tablet Take 1 tablet by mouth 2 times daily. Indications: systemic lupus erythematosus, an autoimmune disease Yes pantoprazole (PROTONIX) 40 mg Tablet, Delayed Release (E.C.) Take 40 mg by mouth 2 times daily. Yes acetaminophen (TYLENOL) 500 mg Tablet Take 2 tablets by mouth every 6 hours as needed for Pain. Yes aspirin 81 mg Tablet, Chewable Take 81 mg by mouth daily. Yes multivitamin with minerals tablet 1 Tablet(s), PO, Once daily Yes Physical Exam: She looks well and healthy today. She is in good spirits. She intermittently has a dry cough, but nothing concerning. Blood pressure 97/57, pulse 85, temperature 37.1 ??C (98.7 ??F), temperature source Temporal, resp.rate 18, height 160 cm (5' 3), weight 91 kg (200 lb 9.6 oz), SpO2 99 %. Skin: Clear. HEENT: Her posterior oropharynx is not injected. No pus. There is no thrush. No oral ulcers. Lungs: Clear. No focal sounds. Heart: Regular rhythm and rate with obvious mechanical valve sounds and an ejection murmur. Abdomen: Benign. No masses, tenderness, or organomegaly. Musculoskeletal: She has slight puffiness to her MCPs and wrists in a rheumatoid-like distribution,but she is not particularly tender there and there is insufficient evidence to call synovitis. The rest of her exam is unchanged. She is status post bilateral knee replacements with small effusions, but no obvious explanation for her ongoing pain there. Neuro: Grossly intact. Assessment: We had a long discussion about her situation. She is basically doing well. I suppose ifshe hadn't mention the ongoing hair loss, we might consider increasing her methotrexate to 20 mg a week after she was definitely over the recent infection. However we decided to just add leucovorin 5mg a week to her regimen and see how she does with that in terms of the hair loss. If she still hassome suggestive findings on hand and wrist exam at her next visit but her hair loss is better, we may increase the methotrexate then. Certainly what she is experiencing now is tolerable. We went ahead and renewed her hydroxychloroquine. We also prescribed Tessalon Perles for her postinfectious cough. She will get lab work done close to home at [facility] and we gave her lab slips. Finally,she is due for a follow-up DEXA scan and we'll schedule that up at [facility] as well. We'll see her in follow-up in 6 months in the lupus clinic. Total time spent on this visit: 50 minutes. Visit code: 77383. Visit Diagnoses: 1. Osteoporosis, unspecified osteoporosis type, unspecified pathological fracture presence 2. Systemic lupus erythematosus with other organ involvement, unspecified SLE type 3. Alopecia 4. High risk medication use 5. Systemic lupus erythematosus, unspecified SLE type, unspecified organ involvement status 6. Subacute cough 7. Aortic valve prosthesis present 8. Antiphospholipid antibody syndrome 9. History of total bilateral knee replacement 10. Dilated cardiomyopathy 11. Pain in both knees, unspecified chronicity 12. Chronic anticoagulation 13. Strep throat 14. Avascular necrosis Orders Placed This Encounter Procedures DXA Central Spine, Hip, and/or Whole Body (Generic) CBC (with Diff) Comprehensive metabolic panel (non-fasting) CRP, acute inflammation Sedimentation rate Urinalysis with reflex Culture Protein/Creatinine Ratio, urine documented in this encounter Plan of Treatment Upcoming Encounters Date Type Department Care Team (Late Contact Info) Description 11/11/2023 3:00 AM EDT [facility] [place] [address] Scheduled Orders Name Type Priority Associated Diagnoses Orde r Schedule CBC (with Diff) Lab Routine Systemic lupus erythematosus with other organ involvement, unspecified SLE type High risk medication use Expected: 12/24/2022 (Approximate), Expires: 12/25/2023 Comprehensive metabolic panel (non-fasting) Lab Routine Systemic lupus erythematosus with other organ involvement, unspecified SLE type High risk medication use Expected: 12/24/2022, Expires: 12/25/2023 Sedimentation rate Lab Routine Systemic lupus erythematosus with other organ involvement, unspecified SLE type Expected: 12/24/2022, Expires: 12/25/2023 Urinalysis with reflex Culture Lab Routine Systemic lupus erythematosus with other organ involvement, unspecified SLE type Expected: 12/24/2022, Expires: 12/24/2023 documented as of this encounter Visit Diagnoses Diagnosis Osteoporosis, unspecified osteoporosis type, unspecified pathological fracture presence Systemic lupus erythematosus with other organ involvement, unspecified SLE type Alopecia Alopecia, unspecified High risk medication use Encounter for long-term (current) use of other medications Systemic lupus erythematosus, unspecified SLE type, unspecified organ involvement status Subacute cough Cough Aortic valve prosthesis present Heart valve replaced by other means Antiphospholipid antibody syndrome Primary hypercoagulable state History of total bilateral knee replacement Dilated cardiomyopathy Other primary cardiomyopathies Pain in both knees, unspecified chronicity Chronic anticoagulation Encounter for long-term (current) use of anticoagulants Strep throat Streptococcal sore throat Avascular necrosis Aseptic necrosis of bone, site unspecified documented in this encounter Care Teams Senior Director Marketing Relationship Specialty Start Date End Date Briana Timmons, FINANCIAL [place] [address] PCP - General Family Medicine 08/09/21 documented as of this encounter
--- OUTSIDE RECORDS SUMMARY | 2023-11-04 15:09 | XMS_ITS | Encounter Summary ---
Author [place] [address] Care Team Providers Care Business Case Analyst Name Role Phone Briana Timmons APRN Primary Care Provider [phone] Encounter Details Date Type Department Care Team (Latest Contact Info) Description 11/11/2022 3:00 AM EDT Anti-Coag Telephone Visit [facility] [place] [phone] Kelli Hoffman, RN Antiphospholipid antibody syndrome; Aortic valve prosthesis [...] Progress Notes * Kelli Hoffman, RN - 11/11/2022 3:00 AM EDT Images from the original note were not included. Anticoagulation Therapy Telephone Note: Anticoagulation Summary As of 11/11/2022 INR goal: 2.5-3.5 TTR: 64.0 % (6 mo) INR used for dosin.1 (11/11/2022) Warfarin maintenance plan: 3 mg (1 mg x 3) every Tue, Fri; 5 mg (5 mg x 1) all other days; Starting11/11/2022 Weekly warfarin total: 31 mg Plan last modified: Tucker Lane RN (10/14/2022) Next INR check: 11/18/2022 Priority: 1 Week Target end date: Indefinite Indications Antiphospholipid antibody----- use antiXa level to dose heparin. 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] Pulmonary embolism unspecified chronicity unspecified pulmonary embolism type unspecified whether acute cor pulmonale present [I26.99] Anticoagulation Episode Summary INR check location: Home Draw Preferred lab: [facility] Send INR reminders to: [facility] Comments: Home Monitor [phone] (M) Anticoagulation Care Providers Provider Role Specialty Phone number Gerardo Richter MD Responsible Cardiology [phone] Patient Assessment Service Type: INR Test Result [...] 2 3 4 5 6 7 8 3 mg See details 9 5 mg 10 5 mg 11 3 mg 12 5 mg 13 5 mg 14 5 mg 15 3 mg 16 17 18 19 20 21 22 23 24 25 26 27 28 29 30 31 Date Details 11/11 This INR check Date of next INR: 11/18/2022 How to take your warfarin dose To take: 3 mg Take 3 of the 1 mg tablets. To take: 5 mg Take 1 of the 5 mg tablets. Description 11/11/22 INR 3.1 In range. Continue with [...] Visit [facility] [place] [phone] documented as of this encounter Visit Diagnoses Diagnosis Antiphospholipid antibody syndrome Primary hypercoagulable state Aortic valve prosthesis present Heart valve replaced by other means Pulmonary embolism, unspecified chronicity, unspecified pulmonary embolism type, unspecified whether acute cor pulmonale present documented in this encounter Care Teams Business Case Analyst Relationship Specialty Start Date End Date Briana Timmons, BIAS CUTTER HELPER [address] [place] [address] PCP - General Family Medicine 08/09/21 documented as of this encounter
--- OUTSIDE RECORDS SUMMARY | 2023-11-04 15:10 | XMS_ITS | Encounter Summary ---
[place] [address] Care Team Providers Care Air Gun Operator Name Role Phone Briana Timmons APRN Primary Care Provider [phone] Encounter Details Date Type Department Care Team (Latest Contact Info) Description 05/26/2022 3:00 AM EST Anti-Coag Telephone Visit [facility] [place] [phone] RN Antiphospholipid antibody syndrome; Aortic [...] Progress Notes * Tucker Lane RN - 05/26/2022 3:00 AM EST Images from the original note were not included. Anticoagulation Therapy Note Anticoagulation Summary As of 05/26/2022 INR goal: 2.5-3.5 TTR: 73.8 % (6 mo) INR used for dosin.8 (05/26/2022) Warfarin maintenance plan: 5 mg (5 mg x 1) every day; Starting 05/26/2022 Weekly warfarin total: 35 mg No change documented: Tucker Lane RN Plan last modified: Tucker Lane RN (03/03/2022) Next INR check: 06/03/2022 Priority: 1 Week Target end date: Indefinite Indications Antiphospholipid antibody----- use antiXa level to dose heparin. 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] Pulmonary embolism unspecified chronicity unspecified pulmonary embolism type unspecified whether acute cor pulmonale present [I26.99] Anticoagulation Episode Summary INR check location: Home Draw Preferred lab: [facility] Send INR reminders to: [facility] Comments: Home Monitor [phone] (M) Anticoagulation Care Providers Provider Role Specialty Phone number Gerardo Richter MD Responsible Cardiology [phone] Patient Assessment Service Type: INR Test Result INR Result: In Range Clinical Outcomes Negatives: Major bleeding event, Thromboembolic event, Anticoagulation-related hospital admission, Anticoagulation-related ED visit Patient Findings Positives: Change in medications (starting tumeric this week) Negatives: Upcoming Travel, Planning or Currently , Recent Fall, Signs/symptoms of thrombosis, Signs/symptoms of bleeding, Laboratory test error suspected, Change in health, Change in alcoholuse, Change in activity, Upcoming invasive procedure, Emergency department visit, Upcoming dental procedure, Missed doses, Extra doses, Change in diet/appetite, Hospital admission, Bruising, Other complaints Warfarin Therapy Instructions May 2022 Details Sun Mon e Wed Yaritza Fri Sat 1 2 3 4 5 6 7 8 9 10 11 12 13 14 15 16 17 18 19 20 5 mg See details 21 5 mg 22 5 mg 23 5 mg 24 5 mg 25 5 mg 26 5 mg 27 5 mg 28 5 mg Date Details 05/26 This INR check Date of next INR: 06/03/2022 How to take your warfarin dose To take: 5 mg Take 1 of the 5 mg tablets. Description 05/26 INR in range today, spoke with Cecilia, denies new changes, she will start tumeric this week, maintain current dose, retest 1 week. 05/19/22: INR slightly below range. This was expected given dose reductions last week as well as interaction with Paxlovid. No change in warfarin dose at this time. Test in 1 week. If INR is back in range next week, Cecilia would like to start taking turmeric. 05/14/22: INR has come dose and given interaction with Paxlovid, I anticipate a further downward trend. Continue 5mg of warfarin daily and test INR in 5 days. Cecilia started taking Mucinex and the following vitamins: Vitamin C and D, biotin, magnesium, fish oil, calcium and a daily women's multivitamin. She also started turmeric however I recommended she hold off until her INR is stable given the interaction. She reports having COVID red eye and reports a blood shot and itchy right eye. No vision changes reported and she understands if she were to have vision changes this could be an emergent situation. 05/12/22: INR supra-therapeutic in the setting of COVID-19. Hold tonight's dose and decrease tomorrow's dose 7% (total reduction is 21% over two days). Test INR Thursday. Cecilia started Paxlovid today which is expected to interact with warfarin and decrease the INR. Denies sxs of bleeding. Currently taking Tylenol 1,000mg 2-3 times a day. Appetite has been low over the weekend. 05/09/22: INR in range. Cecilia has called the [facility] to report she has a cold, chills and vomiting. We discussed what OTC cold medications are safe to take on warfarin and what to avoid. Will have her continue to test INR Thursday to keep a close eye on INR while she is ill. 05/05/22: INR in range. Continue on current dose of warfarin and retest INR again in 1 week. 04/28/22: INR in range. Continue on current dose of warfarin and retest INR again in 1 week. Hematuria has cleared up. documented in this encounter Plan of Treatment Upcoming Encounters Date Type Department Care Team (Late st Contact Info) Description 11/11/2023 3:00 AM EDT Anti-Coag Telephone Visit [facility] [place] [address] documented as of this encounter Visit Diagnoses Diagnosis Antiphospholipid antibody syndrome Primary hypercoagulable state Aortic valve prosthesis present Heart valve replaced by other means Pulmonary embolism, unspecified chronicity, unspecified pulmonary embolism type, unspecified whether acute cor pulmonale present documented in this encounter Care Teams Air Gun Operator Relationship Specialty Start Date End Date Briana Timmons, [place] [address] PCP - General Family Medicine 08/09/21 documented as of this encounter
--- OUTSIDE RECORDS SUMMARY | 2023-11-04 15:10 | XMS_ITS | Encounter Summary ---
[place] [address] Care Team Providers Care Alodize Machine Operator Name Role Phone Briana Timmons APRN Primary Care Provider [phone] Encounter Details Date Type Department Care Team (Latest Contact Info) Description 08/26/2022 3:00 AM EDT Anti-Coag Telephone Visit [facility] Centralized [place] [phone] Shasta Delaney, [facility] Antiphospholipid antibody syndrome; Aortic valve prosthesis present; Pulmonary embolism, unspecified chronicity, unspecified pulmonary embolism type, unspecified whether acute cor pulmonale present; Chronic septic pulmonary embolism with acute [...] encounter Progress Notes * Shasta Delaney [facility] - 08/26/2022 3:00 AM EDT Images from the original note were not included. Anticoagulation Therapy Note Anticoagulation Summary As of 08/26/2022 INR goal: 2.5-3.5 TTR: 70.8 % (6 mo) INR used for dosin.9 (08/26/2022) Warfarin maintenance plan: 5 mg (5 mg x 1) every day; Starting 08/26/2022 Weekly warfarin total: 35 mg Plan last modified: Tucker Lane RN (03/03/2022) Next INR check: 09/02/2022 Priority: 1 Week Target end date: Indefinite Indications Antiphospholipid antibody----- use antiXa level to dose heparin. 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] Pulmonary embolism unspecified chronicity unspecified pulmonary embolism type unspecified whether acute cor pulmonale present [I26.99] Anticoagulation Episode Summary INR check location: Home Draw Preferred lab: [facility] Send INR reminders to: [facility] Comments: Home Monitor [phone] (M) Anticoagulation Care Providers Provider Role Specialty Phone number Gerardo Richter MD Responsible Cardiology [phone] Patient Assessment Service Type: INR Test Result INR Result: Out of Range Clinical Outcomes Negatives: Major bleeding event, Thromboembolic event, Anticoagulation-related hospital admission, Anticoagulation-related ED visit Patient Findings Positives: Change in health (cold sxs), Change in medications (OTC mucinex and allergy relief - no NSAIDS or acetaminophen) Negatives: Upcoming Travel, Planning or Currently , Recent Fall, Signs/symptoms of thrombosis, Signs/symptoms of bleeding, Laboratory test error suspected, Change in alcohol use, Change in activity, Upcoming invasive procedure, Emergency department visit, Upcoming dental procedure, Missed doses, Extra doses, Change in diet/appetite, Hospital admission, Bruising, Other complaints Warfarin Therapy Instructions August 2022 Details Sun Mon Thu Wed Yaritza Fri Sat 1 2 3 4 5 6 7 8 9 10 11 12 13 14 15 16 17 18 19 20 21 22 23 2.5 mg See details 24 5 mg 25 5 mg 26 5 mg 27 5 mg 28 5 mg 29 5 mg 30 5 mg 31 Date Details 08/26 This INR check Date of next INR: 09/02/2022 How to take your warfarin dose To take: 2.5 mg Take 0.5 of a 5 mg tablet. To take: 5 mg Take 1 of the 5 mg tablets. Description 08/26/22: INR above range. Cecilia reports having [...] on 08/05/22. Cecilia gets weekly calls from [facility] requesting INR. Follow up on 08/15/22. 08/05/22: INR in range. Cecilia will start her bridge plan tomorrow. Reviewed today over [facility]. Her prescription was sent in my Dr. Arturo Aviles from [facility]. Dose was calculated using 1.5mg/kg/day.Labs [...] note and were sent to Cecilia via [employer]. 07/21/22: INR in range. Continue on current dose of warfarin and retest INR again in 2 weeks. 07/07/22: INR in range. Continue on current dose of warfarin and retest INR again in 2 weeks. 07/02 INR in range yesterday, spoke with Cecilia denies changes. Will maintain current warfarin dose plan. Retest 1 week. 06/23/22: INR in range. Continue on current dose of warfarin and retest INR again in 1 week. 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
--- OUTSIDE RECORDS SUMMARY | 2023-11-04 15:10 | XMS_ITS | Encounter Summary ---
[place] [address] Care Team Providers Care Waste Picker Name Role Phone Briana Timmons APRN Primary Care Provider [phone] Encounter Details Date Type Department Care Team (Latest Contact Info) Description 06/10/2022 3:00 AM EST Anti-Coag Telephone Visit [facility] [place] [phone] Shasta Delaney [facility] Antiphospholipid antibody syndrome; Aortic valve prosthesis present; [...] this encounter Progress Notes * Shasta Delaney RP - 06/10/2022 3:00 AM EST Images from the original note were not included. Anticoagulation Therapy Note Anticoagulation Summary As of 06/10/2022 INR goal: 2.5-3.5 TTR: 75.5 % (6 mo) INR used for dosin.5 (06/10/2022) Warfarin maintenance plan: 5 mg (5 mg x 1) every day; Starting 06/10/2022 Weekly warfarin total: 35 mg Plan last modified: Tucker Lane RN (03/03/2022) Next INR check: 06/17/2022 Priority: 1 Week Target end date: Indefinite Indications Antiphospholipid antibody----- use antiXa level to dose heparin. 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] Pulmonary embolism unspecified chronicity unspecified pulmonary embolism type unspecified whether acute cor pulmonale present [I26.99] Anticoagulation Episode Summary INR check location: Home Draw Preferred lab: [facility] Send INR reminders to: [facility] Comments: Home Monitor [phone] (M) Anticoagulation Care Providers Provider Role Specialty Phone number Gerardo Richter MD [facility] Cardiology [phone] Patient Assessment Service Type: INR Test Result [...] Bruising, Other complaints Warfarin Therapy Instructions June 2022 Details Sun Mon e Wed Yaritza Fri Sat 1 2 3 4 5 6 7 5 mg See details 8 5 mg 9 5 mg 10 5 mg 11 5 mg 12 5 mg 13 5 mg 14 5 mg 15 16 17 18 19 20 21 22 23 24 25 26 27 28 29 30 31 Date Details 06/10 This INR check Date of next INR: 06/17/2022 How to take your warfarin dose To take: 5 mg Take 1 of the 5 mg tablets. Description 06/10/22:INR in range. Continue on current dose of warfarin and retest INR again in 1 week. 06/04/22: INR in range. Continue on current dose of warfarin and retest INR again in 1 week. 05/26 INR in range today, spoke with [...] INR in range. Cecilia has called the [facility] to report she has a cold, chills and vomiting. We discussed what OTC cold medications are safe to take on warfarin and what to avoid. Will have her continue to test INR Thursday to keep a close eye on INR while she is ill. documented in this encounter Plan of Treatment Upcoming Encounters Date Type Department Care Team (Late st Contact Info) Description 11/11/2023 3:00 AM EDT Anti-Coag Telephone Visit [facility] [place] [address] documented as of this encounter Visit Diagnoses Diagnosis Antiphospholipid antibody syndrome Primary hypercoagulable state Aortic valve prosthesis present Heart valve replaced by other means Pulmonary embolism, unspecified chronicity, unspecified pulmonary embolism type, unspecified whether acute cor pulmonale present documented in this encounter Care Teams Waste Picker Relationship Specialty Start Date End Date Briana Timmons, INTERNATIONAL TRADE SPECIALIST [address] [place] [address] PCP - General Family Medicine 08/09/21 documented as of this encounter
--- OUTSIDE RECORDS SUMMARY | 2023-11-04 15:10 | XMS_ITS | Encounter Summary ---
[place] [address] Care Team Providers Care Air Conditioning Coil Assembler Name Role Phone Briana Timmons APRN Primary Care Provider [phone] Encounter Details Date Type Department Care Team (Late Contact Info) Description 08/26/[address] [facility] Information Services [address] [place] [phone] Provider, His Benigno MD None Social History [...] Upcoming Encounters Date Type Department Care Team ([facility] Contact Info) Description 11/11/2023 3:00 AM EDT Anti-Coag Telephone Visit [facility] [place] [address] documented as of this encounter Procedures Procedure Name Priority Date/Time Associated Diagnosis Comments EXTERNAL INR RESULTS PANEL Routine 08/18/2022 9:59 AM EDT documented in this encounter Results * (ABNORMAL) External INR Results Panel (08/18/2022 9:59 AM EDT) POCT INR 3.9(A) HOME MONITOR Blood 08/18/2022 9:59 AM EDT Historical Provider POINT OF CARE GERSON T ORDERABLES HOME MONITOR documented in this encounter Visit Diagnoses Not on filedocumented in this encounter Care Teams Air Conditioning Coil Assembler Relationship Specialty Start Date End Date Briana Timmons, MANUFACTURING LAB TECHNICIAN [place] [place] [address] PCP - General Family Medicine 08/09/21 documented as of this encounter
--- OUTSIDE RECORDS SUMMARY | 2023-11-04 15:10 | XMS_ITS | Encounter Summary ---
[place] [address] Care Team Providers Care Mainframe Consultant Name Role Phone Briana Timmons APRN Primary Care Provider [phone] Encounter Details Date Type Department Care Team (Latest Contact Info) Description 04/21/2022 3:00 AM EST Anti-Coag Telephone Visit [facility] [place] [phone] Fili Pickett, [facility] Antiphospholipid antibody syndrome; Aortic valve prosthesis [...] encounter Progress Notes * Fili Pickett [facility] - 04/21/2022 3:00 AM EST Images from the original note were not included. Anticoagulation Therapy Note Anticoagulation Summary As of 04/21/2022 INR goal: 2.5-3.5 TTR: 66.1 % (6 mo) INR used for dosin.9 (04/21/2022) Warfarin maintenance plan: 5 mg (5 mg x 1) every day; Starting 04/21/2022 Weekly warfarin total: 35 mg Plan last modified: Tucker Lane RN (03/03/2022) Next INR check: 04/28/2022 Priority: 1 Week Target end date: Indefinite Indications Antiphospholipid antibody----- use antiXa level to dose heparin. 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] Pulmonary embolism unspecified chronicity unspecified pulmonary embolism type unspecified whether acute cor pulmonale present [I26.99] Anticoagulation Episode Summary INR check location: Home Draw Preferred lab: [facility] Send INR reminders to: [facility] Comments: Home Monitor [phone] (M) Anticoagulation Care Providers Provider Role Specialty Phone number Gerardo Richter MD Responsible Cardiology [phone] Patient Assessment Service Type: INR Test Result INR Result: In Range Clinical Outcomes Negatives: Major bleeding event, Thromboembolic event, Anticoagulation-related hospital admission, Anticoagulation-related ED visit Patient Findings Positives: Signs/symptoms of bleeding (Blood in urine) Negatives: Upcoming Travel, Planning or Currently , Recent Fall, Signs/symptoms of thrombosis, Laboratory test error suspected, Change in health, Change in alcohol use, Change in activity, Upcoming invasive procedure, Emergency department visit, Upcoming dental procedure, Missed doses, Extra doses, Change in medications, Change in diet/appetite, Hospital admission, Bruising, Other complaints Warfarin Therapy Instructions April 2022 Details Sun Thu Fri Sat 1 2 3 4 5 6 7 8 9 10 11 12 13 14 15 16 5 mg See details 17 5 mg 18 5 mg 19 5 mg 20 5 mg 21 5 mg 22 5 mg 23 5 mg 24 25 26 27 28 29 30 31 Date Details 04/21 This INR check Date of next INR: 04/28/2022 How to take your warfarin dose To take: 5 mg Take 1 of the 5 mg tablets. Description 04/21 INR in range. Continue on current dose of warfarin and retest INR again in 1 week. Cecilia reports blood in urine this morning. This has happened prior from kidney infection due to her lupus. She is drinking water and if the bleeding continues she will go to [facility] ED and call us to let us know. 04/14/22: INR slightly above range. Continue current dose and teat INR in 1 week. 04/08/22: INR in range. Continue on current dose of warfarin and retest INR again in 1 week. 04/01 INR slightly below range. Given recent supra therapeutic INRs on doses slightly higher, continue current dose and retest in 1 week. 03/24 INR in range today, spoke with Cecilia, denies any changes, maintain current dose, retest 2 weeks. 03/17 INR in range today, left VM for Cecilia to call clinic with any changes, maintain current dose,retest 1 week. 03/10/22: INR remains elevated. Cecilia has cold sxs and had a fever yesterday. Denies using OTC medication yet but will likely use Tylenol. Decrease tonight's dose 8.6% and test INR in 1 week. 03/03 INR elevated today, spoke with Cecilia, denies any changes, decrease weekly dose 5.4%, retest 1week. 02/25/22: INR in range. Continue on current dose of warfarin and retest INR again in 1 weeks. 02/17 INR in range today, left VM for Cecilia to call clinic with any changes, maintain current dose,retest 1 week. documented in this encounter Plan of Treatment Upcoming Encounters Date Type Department Care Team (Late st Contact Info) Description 11/11/2023 3:00 AM EDT Anti-Coag Telephone Visit [facility] [place] [address] documented as of this encounter Visit Diagnoses Diagnosis Antiphospholipid antibody syndrome Primary hypercoagulable state Aortic valve prosthesis present Heart valve replaced by other means Pulmonary embolism, unspecified chronicity, unspecified pulmonary embolism type, unspecified whether acute cor pulmonale present documented in this encounter Care Teams Mainframe Consultant Relationship Specialty Start Date End Date Briana Timmons APRN Aniya [facility] [place] [address] PCP - General Family Medicine 08/09/21 documented as of this encounter
--- OUTSIDE RECORDS SUMMARY | 2023-11-04 15:10 | XMS_ITS | Encounter Summary ---
[place] [address] Care Team Providers Care Chief Service Observer Name Role Phone Briana Timmons APRN Primary Care Provider [phone] Encounter Details Date Type Department Care Team (Latest Contact Info) Description 08/19/2022 3:00 AM EDT Anti-Coag Telephone Visit [facility] [place] [phone] Antiphospholipid antibody syndrome; Aortic [...] Progress Notes * Tucker Lane RN - 08/19/2022 3:00 AM EDT Images from the original note were not included. Anticoagulation Therapy Note Anticoagulation Summary As of 08/19/2022 INR goal: 2.5-3.5 TTR: 73.1 % (6 mo) INR used for dosin.1 (08/19/2022) Warfarin maintenance plan: 5 mg (5 mg x 1) every day; Starting 08/19/2022 Weekly warfarin total: 35 mg No change documented: Tucker Lane, RN Plan last modified: Tucker Lane RN (03/03/2022) Next INR check: 08/26/2022 Priority: 1 Week Target end date: Indefinite Indications Antiphospholipid antibody----- use antiXa level to dose heparin. 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] Pulmonary embolism unspecified chronicity unspecified pulmonary embolism type unspecified whether acute cor pulmonale present [I26.99] Anticoagulation Episode Summary INR check location: Home Draw Preferred lab: [facility] Send INR reminders to: [facility] Comments: Home Monitor [phone] (M) Anticoagulation Care Providers Provider Role Specialty Phone number Gerardo Richter MD Responsible Cardiology [phone] Patient Assessment Service Type: INR Test Result INR Result: In Range Warfarin Therapy Instructions August 2022 Details Sun Thu Fri Sat 1 2 3 4 5 6 7 8 9 10 11 12 13 14 15 16 5 mg See details 17 5 mg 18 5 mg 19 5 mg 20 5 mg 21 5 mg 22 5 mg 23 5 mg 24 25 26 27 28 29 30 31 Date Details 08/19 This INR check Date of next INR: 08/26/2022 How to take your warfarin dose To take: 5 mg Take 1 of the 5 mg tablets. Description 08/19 INR in range today, left VM [...] on 08/05/22. Cecilia gets weekly calls from [facility] [employer] requesting INR. Follow up on 08/15/22. 08/05/22: [...] note and were sent to Cecilia via [employer]. 07/21/22: INR in range. Continue on current [...] and retest INR again in 1 week. 06/17/22: INR in range. Continue on current dose of warfarin and retest INR again in 1 week. 06/10/22:INR in range. Continue on current dose [...] Telephone Visit [facility] [place] [address] documented as of this encounter Visit Diagnoses Diagnosis Antiphospholipid antibody syndrome Primary hypercoagulable state Aortic valve prosthesis present Heart valve replaced by other means Pulmonary embolism, unspecified chronicity, unspecified pulmonary embolism type, unspecified whether acute cor pulmonale present documented in this encounter Care Teams Chief Service Observer Relationship Specialty Start Date End Date Briana Timmons, PHOTOENGRAVER [address] [place] [address] PCP - General Family Medicine 08/09/21 documented as of this encounter
--- OUTSIDE RECORDS SUMMARY | 2023-11-04 15:10 | XMS_ITS | Encounter Summary ---
[place] [address] Care Team Providers Care Flight Engineer Instructor Name Role Phone Briana Timmons APRN Primary Care Provider [phone] Encounter Details Date Type Department Care Team (Latest Contact Info) Description 06/17/2022 3:00 AM EDT Anti-Coag Telephone Visit [facility] Centralized [place] [phone] Shasta Delaney [facility] Antiphospholipid antibody syndrome; Aortic valve prosthesis present; [...] this encounter Progress Notes * Shasta Delaney [facility] - 06/17/2022 3:00 AM EDT Images from the original note were not included. Anticoagulation Therapy Note Anticoagulation Summary As of 06/17/2022 INR goal: 2.5-3.5 TTR: 75.6 % (6 mo) INR used for dosin.6 (06/17/2022) Warfarin maintenance plan: 5 mg (5 mg x 1) every day; Starting 06/17/2022 Weekly warfarin total: 35 mg Plan last modified: Tucker Lane RN (03/03/2022) Next INR check: 06/24/2022 Priority: 1 Week Target end date: Indefinite Indications Antiphospholipid antibody----- use antiXa level to dose heparin. 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] Pulmonary embolism unspecified chronicity unspecified pulmonary embolism type unspecified whether acute cor pulmonale present [I26.99] Anticoagulation Episode Summary INR check location: Home Draw Preferred lab: [facility] Send INR reminders to: [facility] Comments: Home Monitor [phone] (M) Anticoagulation Care Providers Provider Role Specialty Phone number Gerardo Richter MD Responsible Cardiology [phone] Patient Assessment Service Type: INR Test Result [...] any missed doses. Warfarin Therapy Instructions June 2022 Details Sun Thuu Fri Sat 1 2 3 4 5 6 7 8 9 10 11 12 13 14 5 mg See details 15 5 mg 16 5 mg 17 5 mg 18 5 mg 19 5 mg 20 5 mg 21 5 mg 22 23 24 25 26 27 28 29 30 31 Date Details 06/17 This INR check Date of next INR: 06/24/2022 How to take your warfarin dose To take: 5 mg Take 1 of the 5 mg tablets. Description 06/17/22: INR in range. Continue on current [...] INR in range. Cecilia has called the [facility] to report she has a cold, chills [...] Anti-Coag Telephone Visit [facility] Centralized [place] [address] documented as of this encounter Visit Diagnoses Diagnosis Antiphospholipid antibody syndrome Primary hypercoagulable state Aortic valve prosthesis present Heart valve replaced by other means Pulmonary embolism, unspecified chronicity, unspecified pulmonary embolism type, unspecified whether acute cor pulmonale present documented in this encounter Care Teams Flight Engineer Instructor Relationship Specialty Start Date End Date Briana Timmons, PMO CONSULT[place] [place] [address] PCP - General Family Medicine 08/09/21 documented as of this encounter
--- OUTSIDE RECORDS SUMMARY | 2023-11-04 15:10 | XMS_ITS | Encounter Summary ---
[place] [address] Care Team Providers Care Die Try Out Worker Name Role Phone Briana Timmons APRN Primary Care Provider Encounter Details Date Type Department Care Team (Late st Contact Info) Description 05/11/2022 Telephone [place] [phone] Mary Chan, [facility] [address] Social History Tobacco Use Types Packs/Day Years [...] encounter Miscellaneous Notes * Telephone Encounter - Mary Chan DO - 05/11/2022 2:21 PM EST Paged on paged: dx with coivd Covid diagnosed yesterday. Mild sxs: cough, chest congestion, no SOB. Has rx for paxlovid rec Mucinex for cough Take mtx on mondays rec - MTX - hold this week. Advised to call pcp to set up appointment if sxs are not improved/worseing documented in this encounter Plan of Treatment Upcoming Encounters Date Type Department Care Team (Late st Contact Info) Description 11/11/2023 3:00 AM EDT Anti-Coag Telephone Visit [facility] [place] [address] documented as of this encounter Visit Diagnoses Not on filedocumented in this encounter Care Teams Die Try Out Worker Relationship Specialty Start Date End Date Briana Timmons, IT SECURITY PROJECT MANAGER [place] [address] PCP - General Family Medicine 08/09/21 documented as of this encounter
--- OUTSIDE RECORDS SUMMARY | 2023-11-04 15:10 | XMS_ITS | Encounter Summary ---
[place] [address] Care Team Providers Care Lurer Name Role Phone Briana Timmons APRN Primary Care Provider [phone] Encounter Details Date Type Department Care Team (Late Contact Info) Description 05/05/2022 External Results [facility] Information Services [address] [place] [phone] Provider, His Benigno MD None Social History [...] Upcoming Encounters Date Type Department Care Team ([facility] Contact Info) Description 11/11/2023 3:00 AM EDT Anti-Coag Telephone Visit [facility] [place] [address] documented as of this encounter Procedures Procedure Name Priority Date/Time Associated Diagnosis Comments EXTERNAL INR RESULTS PANEL Routine 05/05/2022 documented in this encounter Results * (ABNORMAL) External INR Results Panel (05/05/2022) POCT INR 3.4(A) 0.9 - 1.1 HOME MONITOR Blood 05/05/2022 His [place] Provider POINT OF CARE [address] ORDERABLES HOME MONITOR documented in this encounter Visit Diagnoses Not on filedocumented in this encounter Care Teams Lurer Relationship Specialty Start Date End Date Briana Timmons, [employer]ER [employer] [place] [address] PCP - General Family Medicine 08/09/21 documented as of this encounter
--- OUTSIDE RECORDS SUMMARY | 2023-11-04 15:10 | XMS_ITS | Encounter Summary ---
[place] [address] Care Team Providers Care Financial Services Internship Name Role Phone Briana Timmons APRN Primary Care Provider [phone] Encounter Details Date Type Department Care Team (Late Contact Info) Description 07/02/2022 External Results [facility] Information Services [address] [place] [phone] Provider, His Benigno MD None Social History [...] Upcoming Encounters Date Type Department Care Team ([facility] Contact Info) Description 11/11/2023 3:00 AM EDT Anti-Coag Telephone Visit [facility] [place] [address] documented as of this encounter Procedures Procedure Name Priority Date/Time Associated Diagnosis Comments EXTERNAL INR RESULTS PANEL Routine 07/01/2022 9:00 PM EDT documented in this encounter Results * (ABNORMAL) External INR Results Panel (07/01/2022 9:00 PM EDT) POCT INR 2.9(A) 0.9 - 1.1 HOME MONITOR Blood 07/01/2022 9:00 PM EDT His [place] Provider POINT OF CARE TE ST ORDERABLES HOME MONITOR documented in this encounter Visit Diagnoses Not on filedocumented in this encounter Care Teams Financial Services Internship Relationship Specialty Start Date End Date Briana Timmons, RETORT CONDENSER ATTENDANT [place] [place] [address] PCP - General Family Medicine 08/09/21 documented as of this encounter
--- OUTSIDE RECORDS SUMMARY | 2023-11-04 15:10 | XMS_ITS | Encounter Summary ---
[place] [address] Care Team Providers Care Rafter Cutting Machine Operator Name Role Phone Briana Timmons APRN Primary Care Provider [phone] Encounter Details Date Type Department Care Team (Latest Contact Info) Description 04/14/2022 3:00 AM EST Anti-Coag Telephone Visit [facility] [place] [phone] Shasta Delaney [facility] Antiphospholipid antibody syndrome; Aortic valve [...] Progress Notes * Shasta Delaney RP - 04/14/2022 3:00 AM EST Images from the original note were not included. Anticoagulation Therapy Note Anticoagulation Summary As of 04/14/2022 INR goal: 2.5-3.5 TTR: 63.8 % (6 mo) INR used for dosin.6 (04/14/2022) Warfarin maintenance plan: 5 mg (5 mg x 1) every day; Starting 04/14/2022 Weekly warfarin total: 35 mg Plan last modified: Tucker Lane RN (03/03/2022) Next INR check: 04/21/2022 Priority: 1 Week Target end date: Indefinite Indications Antiphospholipid antibody----- use antiXa level to dose heparin. 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] Pulmonary embolism unspecified chronicity unspecified pulmonary embolism type unspecified whether acute cor pulmonale present [I26.99] Anticoagulation Episode Summary INR check location: Home Draw Preferred lab: [facility] Send INR reminders to: [facility] Comments: Home Monitor [phone] (M) Anticoagulation Care Providers Provider Role Specialty Phone number Gerardo Richter MD Responsible Cardiology [phone] Patient Assessment Service Type: INR Test Result INR Result: Out of Range Clinical Outcomes Patient Findings Comments: I left a voicemail for Cecilia with instructions to call with any changes in diet, medication or health or if the dosing we have on record differs from the dose they have been taking. Also instructed to call clinic to report any missed doses. Warfarin Therapy Instructions April 2022 Details Sun Thuu Fri Sat 1 2 3 4 5 6 7 8 9 5 mg See details 10 5 mg 11 5 mg 12 5 mg 13 5 mg 14 5 mg 15 5 mg 16 5 mg 17 18 19 20 21 22 23 24 25 26 27 28 29 30 31 Date Details 04/14 This INR check Date of next INR: 04/21/2022 How to take your warfarin dose To take: 5 mg Take 1 of the 5 mg tablets. Description 04/14/22: INR slightly above range. 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
--- OUTSIDE RECORDS SUMMARY | 2023-11-04 15:10 | XMS_ITS | Encounter Summary ---
[place] [address] Care Team Providers Care Surgical Attendant Name Role Phone Briana Timmons APRN Primary Care Provider [phone] Encounter Details Date Type Department Care Team (Late Contact Info) Description 05/14/[address] [facility] Information Services [address] [place] [phone] Provider, His Benigno MD None Social History [...] Visit [facility] [place] [address] documented as of this encounter Procedures Procedure Name Priority Date/Time Associated Diagnosis Comments EXTERNAL INR RESULTS PANEL Routine 05/14/2022 10:50 AM EST documented in this encounter Results * (ABNORMAL) External INR Results Panel (05/14/2022 10:50 AM EST) POCT INR 3.7(A) 0.9 - 1.1 HOME MONITOR Blood 05/14/2022 10:5 0 AM EST His [place] Provider POINT OF CARE RAYRAY ORDERABLES HOME MONITOR documented in this encounter Visit Diagnoses Not on filedocumented in this encounter Care Teams Surgical Attendant Relationship Specialty Start Date End Date Briana Timmons, SUELLEN Aniya [place] [address] PCP - General Family Medicine 08/09/21 documented as of this encounter
--- OUTSIDE RECORDS SUMMARY | 2023-11-04 15:10 | XMS_ITS | Encounter Summary ---
[place] [address] Care Team Providers Care Hospice Educator Name Role Phone Briana Timmons APRN Primary Care Provider [phone] Encounter Details Date Type Department Care Team (Latest Contact Info) Description 08/05/2022 3:00 AM EDT Anti-Coag Telephone Visit [facility] [place] [phone] Shasta Delaney [facility] Antiphospholipid antibody syndrome; Aortic valve prosthesis [...] this encounter Progress Notes * Shasta Delaney [facility] - 08/05/2022 3:00 AM EDT Images from the original note were not included. Anticoagulation Therapy Note Anticoagulation Summary As of 08/05/2022 INR goal: 2.5-3.5 TTR: 79.4 % (6 mo) INR used for dosin.5 (08/05/2022) Warfarin maintenance plan: 5 mg (5 mg x 1) every day; Starting 08/05/2022 Weekly warfarin total: 35 mg Plan last modified: Tucker Lane RN (03/03/2022) Next INR check: 08/15/2022 Target end date: Indefinite Indications Antiphospholipid antibody----- use antiXa level to dose heparin. 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] Pulmonary embolism unspecified chronicity unspecified pulmonary embolism type unspecified whether acute cor pulmonale present [I26.99] Anticoagulation Episode Summary INR check location: Home Draw Preferred lab: [facility] Send INR reminders to: [facility] Comments: Home Monitor [phone] (M) Anticoagulation Care Providers Provider Role Specialty Phone number Gerardo Richter MD Responsible Cardiology [phone] Patient Assessment Service Type: INR Test Result INR Result: In Range Clinical Outcomes Negatives: Major bleeding event, Thromboembolic event, Anticoagulation-related hospital admission, Anticoagulation-related ED visit Patient Findings Positives: Upcoming invasive procedure (Colonoscopy 08/11/22), Missed doses (Hold x 5 days), Change in medications (enoxpaparin bridge 150mg QD) Negatives: Upcoming Travel, Planning or Currently , Recent Fall, Signs/symptoms of thrombosis, Signs/symptoms of bleeding, Laboratory test error suspected, Change in health, Change in alcoholuse, Change in activity, Emergency department visit, Upcoming dental procedure, Extra doses, Changein diet/appetite, Hospital admission, Bruising, Other complaints Warfarin Therapy Instructions August 2022 Details Sun Mon Tue Wed Yaritza Fri Sat 1 2 5 mg See details 3 Hold 4 Hold 5 Hold 6 Hold 7 Hold 8 7.5 mg 9 7.5 mg 10 7.5 mg 11 5 mg 12 5 mg 13 14 15 16 17 18 19 20 21 22 23 24 25 26 27 28 29 30 31 Date Details 08/05 This INR check Date of next INR: 08/15/2022 How to take your warfarin dose To take: 5 mg Take 1 of the 5 mg tablets. To take: 7.5 mg Take 1.5 of the 5 mg tablets. Hold Do not take your warfarin dose. See the Details table to the right for additional instructions. Description 08/05/22: INR in range. Cecilia will start her bridge plan tomorrow. Reviewed today over [facility]. Her prescription was sent in my Dr. Arturo Aviles from [facility]. Dose was calculated using 1.5mg/kg/day.Labs [...] note and were sent to Cecilia via [email or web address]. 07/21/22: INR in range. 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
--- OUTSIDE RECORDS SUMMARY | 2023-11-04 15:10 | XMS_ITS | Encounter Summary ---
[place] [address] Care Team Providers Care Tooling Specialist Name Role Phone Briana Timmons APRN Primary Care Provider [phone] Encounter Details Date Type Department Care Team (Latest Contact Info) Description 08/15/2022 3:00 AM EDT Anti-Coag Telephone Visit [facility] Central[place] [phone] Shasta Delaney [facility] Antiphospholipid antibody syndrome; Aortic valve prosthesis [...] this encounter Progress Notes * Shasta Delaney [facility] - 08/15/2022 3:00 AM EDT Images from the original note were not included. Anticoagulation Therapy Note Anticoagulation Summary As of 08/15/2022 INR goal: 2.5-3.5 TTR: 73.7 % (6 mo) INR used for dosin.3 (08/15/2022) Warfarin maintenance plan: 5 mg (5 mg x 1) every day; Starting 08/15/2022 Weekly warfarin total: 35 mg Plan last modified: Tucker Lane RN (03/03/2022) Next INR check: 08/19/2022 Target end date: Indefinite Indications Antiphospholipid antibody----- use antiXa level to dose heparin. 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] Pulmonary embolism unspecified chronicity unspecified pulmonary embolism type unspecified whether acute cor pulmonale present [I26.99] Anticoagulation Episode Summary INR check location: Home Draw Preferred lab: [facility] Send INR reminders to: [facility] Comments: Home Monitor [phone] (M) Anticoagulation Care Providers Provider Role Specialty Phone number Gerardo Richter MD Responsible Cardiology [phone] Patient Assessment Service Type: INR Test Result INR Result: Out of Range Clinical Outcomes Negatives: Major bleeding event, Thromboembolic event, Anticoagulation-related hospital admission, Anticoagulation-related ED visit Patient Findings Positives: Missed doses (held times 5 days), Change in medications (stop enoxaparin) Negatives: Upcoming Travel, Planning or Currently , Recent Fall, Signs/symptoms of thrombosis, Signs/symptoms of bleeding, Laboratory test error suspected, Change in health, Change in alcoholuse, Change in activity, Upcoming invasive procedure, Emergency department visit, Upcoming dental procedure, Extra doses, Change in diet/appetite, Hospital admission, Bruising, Other complaints Warfarin Therapy Instructions August 2022 Details Sun Thu Sat 1 2 3 4 5 6 7 8 9 10 11 12 5 mg See details 13 5 mg 14 5 mg 15 5 mg 16 5 mg 17 18 19 20 21 22 23 24 25 26 27 28 29 30 31 Date Details 08/15 This INR check Date of next INR: 08/19/2022 How to take your warfarin dose To take: 5 mg Take 1 of the 5 mg tablets. Description 08/15/22: INR continues to trend up but [...] on 08/05/22. Cecilia [facility] requesting [facility]R. Follow up on 08/15/22. 08/05/22: INR in range. Cecilia will start her bridge plan tomorrow. Reviewed today over [employer]. Her prescription was sent in my Dr. Arturo Aviles from [facility]. Dose was calculated using 1.5mg/kg/day.Labs are [...] note and were sent to Cecilia via [employer]. 07/21/22: INR in range. 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
--- OUTSIDE RECORDS SUMMARY | 2023-11-04 15:10 | XMS_ITS | Encounter Summary ---
[place] [address] Care Team Providers Care Tree Puller Name Role Phone Briana Timmons APRN Primary Care Provider [phone] Encounter Details Date Type Department Care Team (Late Contact Info) Description 06/04/2022 External Results [facility] Information Services [address] [place] [phone] Provider, His Benigno MD None Social History [...] Anti-Coag Telephone Visit [facility] Centralized [place] [address] documented as of this encounter Procedures Procedure Name Priority Date/Time Associated Diagnosis Comments EXTERNAL INR RESULTS PANEL Routine 06/04/2022 documented in this encounter Results * (ABNORMAL) External INR Results Panel (06/04/2022) POCT INR 2.7(A) 0.9 - 1.1 HOME MONITOR Blood 06/04/2022 His [place] Provider POINT OF CARE RAYRAY WALLIS ORDERABLES HOME MONITOR documented in this encounter Visit Diagnoses Not on filedocumented in this encounter Care Teams Tree Puller Relationship Specialty Start Date End Date Briana Timmons, DEHAIRER Aniya [place] [address] PCP - General Family Medicine 08/09/21 documented as of this encounter
--- OUTSIDE RECORDS SUMMARY | 2023-11-04 15:10 | XMS_ITS | Encounter Summary ---
[place] [address] Care Team Providers Care Powersaw Supervisor Name Role Phone Briana Timmons APRN Primary Care Provider [phone] Encounter Details Date Type Department Care Team (Latest Contact Info) Description 04/28/2022 3:00 AM EST Anti-Coag Telephone Visit [facility] [place] [phone] Shasta Delaney [facility] Antiphospholipid antibody syndrome; Aortic valve [...] Progress Notes * Shasta Delaney RP - 04/28/2022 3:00 AM EST Images from the original note were not included. Anticoagulation Therapy Note Anticoagulation Summary As of 04/28/2022 INR goal: 2.5-3.5 TTR: 68.6 % (6 mo) INR used for dosin.3 (04/28/2022) Warfarin maintenance plan: 5 mg (5 mg x 1) every day; Starting 04/28/2022 Weekly warfarin total: 35 mg Plan last modified: Tucker Lane RN (03/03/2022) Next INR check: 05/05/2022 Priority: 1 Week Target end date: Indefinite Indications Antiphospholipid antibody----- use antiXa level to dose heparin. 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] Pulmonary embolism unspecified chronicity unspecified pulmonary embolism type unspecified whether acute cor pulmonale present [I26.99] Anticoagulation Episode Summary INR check location: Home Draw Preferred lab: [facility] Send INR reminders to: [facility] Comments: Home Monitor [phone] (M) Anticoagulation Care Providers Provider Role Specialty Phone number Gerardo Richter MD Responsible Cardiology [phone] Patient Assessment Service Type: INR Test Result [...] mg 30 5 mg 31 Date Details 04/28 This INR check Date of next INR: 05/05/2022 How to take your warfarin dose To take: 5 mg Take 1 of the 5 mg tablets. Description 04/28/22: INR in range. Continue on current dose of warfarin and retest INR again in 1 week. Hematuria has cleared up. 04/21 INR in range. Continue on current dose of warfarin and retest INR again in 1 week. Cecilia reports blood in urine this morning. This has happened prior from kidney infection due to her lupus. 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
--- OUTSIDE RECORDS SUMMARY | 2023-11-04 15:10 | XMS_ITS | Encounter Summary ---
[place] [address] Care Team Providers Care Hand Blocker Name Role Phone Briana Timmons APRN Primary Care Provider [phone] Encounter Details Date Type Department Care Team (Late Contact Info) Description 08/15/2022 External Results [facility] Information Services [address] [place] [phone] Provider, His Benigno MD None Social History [...] Upcoming Encounters Date Type Department Care Team ([facility] Contact Info) Description 11/11/2023 3:00 AM EDT Anti-Coag Telephone Visit [facility] [place] [address] documented as of this encounter Procedures Procedure Name Priority Date/Time Associated Diagnosis Comments EXTERNAL INR RESULTS PANEL Routine 08/15/2022 10:40 AM EDT documented in this encounter Results * (ABNORMAL) External INR Results Panel (08/15/2022 10:40 AM EDT) POCT INR 2.3(A) 0.9 - 1.1 HOME MONITOR Blood 08/15/2022 10:4 0 AM EDT His [place] Provider POINT OF CARE TE ST ORDERABLES HOME MONITOR documented in this encounter Visit Diagnoses Not on filedocumented in this encounter Care Teams Hand Blocker Relationship Specialty Start Date End Date Briana Timmons, FUR [place]INTER [place] [address] PCP - General Family Medicine 08/09/21 documented as of this encounter
--- OUTSIDE RECORDS SUMMARY | 2023-11-04 15:10 | XMS_ITS | Encounter Summary ---
[place] [address] Care Team Providers Care Personal Injury Law Specialist Name Role Phone Briana Timmons APRN Primary Care Provider [phone] Reason for Visit * Reason Onset Date Comments Prior Authorization 05/23/2022 Encounter Details Date Type Department Care Team (Late st Contact Info) Description 05/23/2022 [place] [address] Barbara Dean Prior Authorization Social [...] * Telephone Encounter - Barbara Dean - 05/23/2022 10:33 AM EST Medication Prior Authorization [place] Medication name/dose/directions: Methothrexate 25mg/mL - inject 0.4mL once weekly Rationale for request: SLE (M32.9) Health plan: [employer] ([facility]) Rai: [id number] Authorizing representative phlebotomy services name: Bertha Sent to health plan on: 05/23/22 PA Outcome: PA Approval Quantity approved: 6 units per 90 days Authorization number: [id number] Start date: 04/23/22 End date: Until further notice documented in this encounter Plan of Treatment Upcoming Encounters Date Type Department Care Team (Late st Contact Info) Description 11/11/2023 3:00 AM EDT [place] [phone] documented as of this encounter Visit Diagnoses Not on filedocumented in this encounter Care Teams Personal Injury Law Specialist Relationship Specialty Start Date End Date Briana Timmons, SUELL[place] [address] PCP - General Family Medicine 08/09/21 documented as of this encounter
--- OUTSIDE RECORDS SUMMARY | 2023-11-04 15:10 | XMS_ITS | Encounter Summary ---
[place] [address] Care Team Providers Care Beamster Name Role Phone Briana Timmons APRN Primary Care Provider [phone] Encounter Details Date Type Department Care Team (Late Contact Info) Description 04/28/2022 External Results [facility] Information Services [address] [place] [phone] Provider, His Benigno MD None Social History [...] Upcoming Encounters Date Type Department Care Team ([facility] Contact Info) Description 11/11/2023 3:00 AM EDT Anti-Coag Telephone Visit [facility] Centralized [place] [address] documented as of this encounter Procedures Procedure Name Priority Date/Time Associated Diagnosis Comments EXTERNAL INR RESULTS PANEL Routine 04/28/2022 12:45 PM EST documented in this encounter Results * (ABNORMAL) External INR Results Panel (04/28/2022 12:45 PM EST) POCT INR 3.3(A) 0.9 - 1.1 HOME MONITOR Blood 04/28/2022 12:4 5 PM EST His [place] Provider POINT OF CARE RAYRAY ORDERABLES HOME MONITOR documented in this encounter Visit Diagnoses Not on filedocumented in this encounter Care Teams Beamster Relationship Specialty Start Date End Date Briana Timmons, SUELLEN [place] [place] [address] PCP - General Family Medicine 08/09/21 documented as of this encounter
--- OUTSIDE RECORDS SUMMARY | 2023-11-04 15:10 | XMS_ITS | Encounter Summary ---
[place] [address] Care Team Providers Care Ui Designer Name Role Phone Briana Timmons APRN Primary Care Provider [phone] Encounter Details Date Type Department Care Team (Late st Contact Info) Description 06/10/2022 External Results [facility] [place] [address] Estelle Clarke Social History Tobacco Use Types [...] Visit [facility] [place] [address] documented as of this encounter Procedures Procedure Name Priority Date/Time Associated Diagnosis Comments EXTERNAL INR RESULTS PANEL Routine 06/10/2022 10:15 AM EST documented in this encounter Results * External INR Results Panel (06/10/2022 10:15 AM EST) POCT INR 2.5 0.9 - 1.1 HOME MONITOR Blood 06/10/2022 10:1 5 AM EST Historical Provider POINT OF CARE GERSON T ORDERABLES HOME MONITOR documented in this encounter Visit Diagnoses Not on filedocumented in this encounter Care Teams Ui Designer Relationship Specialty Start Date End Date Briana Timmons, SEA SHELL GATHERER [place] [address] PCP - General Family Medicine 08/09/21 documented as of this encounter
--- OUTSIDE RECORDS SUMMARY | 2023-11-04 15:10 | XMS_ITS | Encounter Summary ---
[place] [address] Care Team Providers Care Industrial Truck Operator Name Role Phone Briana Timmons APRN Primary Care Provider [phone] Encounter Details Date Type Department Care Team (Latest Contact Info) Description 08/12/2022 3:00 AM EDT Anti-Coag Telephone Visit [facility] [place] [phone] Shasta Delaney [facility] Antiphospholipid antibody syndrome; Aortic valve [...] encounter Progress Notes * Shasta Delaney [facility] - 08/12/2022 3:00 AM EDT Images from the original note were not included. Anticoagulation Therapy Note Anticoagulation Summary As of 08/12/2022 INR goal: 2.5-3.5 TTR: 74.8 % (6 mo) INR used for dosin.2 (08/12/2022) Warfarin maintenance plan: 5 mg (5 mg x 1) every day; Starting 08/12/2022 Weekly warfarin total: 35 mg Plan last [...] [facility] Comments: Home Monitor [phone] (M) Anticoagulation Care Providers Provider Role Specialty Phone number Gerardo Richter MD Responsible Cardiology [phone] Patient Assessment Service Type: INR Test Result INR Result: Out of Range Patient Findings Positives: Missed doses (held for procedure), Change in medications (enoxaparin 100mg BID) Warfarin Therapy Instructions August 2022 Details Sun Mon Tue Wed Yaritza Fri Sat 1 2 3 4 5 6 7 8 9 7.5 mg See details 10 7.5 mg 11 5 mg 12 5 mg 13 14 15 16 17 18 19 20 21 22 23 24 25 26 27 28 29 30 31 Date Details 08/12 This INR check Date of next INR: 08/15/2022 How to take your warfarin dose To take: 5 mg Take 1 of the 5 mg tablets. To take: 7.5 mg Take 1.5 of the 5 mg tablets. Description 08/12/22: Cecilia is bridging post-op. No change to plan given on 08/05/22. Cecilia gets weekly calls from Elsa requesting INR. Follow up on 08/15/22. 08/05/22: INR in range. Cecilia will start her bridge plan tomorrow. Reviewed today over myD-H. Her prescription was sent in my Dr. Arturo Aviles from [facility]. Dose was calculated using 1.5mg/kg/day.Labs are [...] note and were sent to Cecilia via [employer]. 07/21/22: INR in range. 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
--- OUTSIDE RECORDS SUMMARY | 2023-11-04 15:10 | XMS_ITS | Encounter Summary ---
[place] [address] Care Team Providers Care Apprise Counselor Name Role Phone Briana Timmons APRN Primary Care Provider [phone] Encounter Details Date Type Department Care Team (Latest Contact Info) Description 05/14/2022 3:00 AM EST Anti-Coag Telephone Visit [facility] [place] [phone] Shasta Delaney [facility] Antiphospholipid antibody syndrome; Aortic valve [...] Progress Notes * Shasta Delaney RP - 05/14/2022 3:00 AM EST Images from the original note were not included. Anticoagulation Therapy Note Anticoagulation Summary As of 05/14/2022 INR goal: 2.5-3.5 TTR: 75.3 % (6 mo) INR used for dosin.7 (05/14/2022) Warfarin maintenance plan: 5 mg (5 mg x 1) every day; Starting 05/14/2022 Weekly warfarin total: 35 mg Plan last modified: Tucker Lane RN (03/03/2022) Next INR check: 05/19/2022 Priority: 1 Week Target end date: Indefinite Indications Antiphospholipid antibody----- use antiXa level to dose heparin. 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] Pulmonary embolism unspecified chronicity unspecified pulmonary embolism type unspecified whether acute cor pulmonale present [I26.99] Anticoagulation Episode Summary INR check location: Home Draw Preferred lab: [facility] Send INR reminders to: [facility] Comments: Home Monitor [phone] (M) Anticoagulation Care Providers Provider Role Specialty Phone number Gerardo Richter MD Responsible Cardiology [phone] Patient Assessment Service Type: INR Test Result INR Result: Out of Range Clinical Outcomes Negatives: Major bleeding event, Thromboembolic event, Anticoagulation-related hospital admission, Anticoagulation-related ED visit Patient Findings Positives: Signs/symptoms of bleeding (blood shot right eye), Change in health (COVID), Change in activity (due to illness), Missed doses, Change in medications (See notes from today), Change in diet/appetite (decreased due to illness) Negatives: Upcoming Travel, Planning or Currently , Recent Fall, Signs/symptoms of thrombosis, Laboratory test error suspected, Change in alcohol use, Upcoming invasive procedure, Emergency department visit, Upcoming dental procedure, Extra doses, Hospital admission, Bruising, Other complaints Warfarin Therapy Instructions May 2022 Details Sun Mon Tue Wed Yaritza Fri Sat 1 2 3 4 5 6 7 8 5 mg See details 9 5 mg 10 5 mg 11 5 mg 12 5 mg 13 5 mg 14 15 16 17 18 19 20 21 22 23 24 25 26 27 28 Date Details 05/14 This INR check Date of next INR: 05/19/2022 How to take your warfarin dose To take: 5 mg Take 1 of the 5 mg tablets. Description 05/14/22: INR has come dose and given [...] INR in range. Cecilia has called the [facility] to report she has a cold, [...] the bleeding continues she will go to [facility] ED and call us to let us [...] Telephone Visit [facility] [place] [place] [address] documented as of this encounter Visit Diagnoses Diagnosis Antiphospholipid antibody syndrome Primary hypercoagulable state Aortic valve prosthesis present Heart valve replaced by other means Pulmonary embolism, unspecified chronicity, unspecified pulmonary embolism type, unspecified whether acute cor pulmonale present documented in this encounter Care Teams Apprise Counselor Relationship Specialty Start Date End Date Briana Timmons, NEON PUMPER [place] [place] [address] PCP - General Family Medicine 08/09/21 documented as of this encounter
--- OUTSIDE RECORDS SUMMARY | 2023-11-04 15:10 | XMS_ITS | Encounter Summary ---
[place] [address] Care Team Providers Care Blow Moulding Machine Operator Name Role Phone Briana Timmons APRN Primary Care Provider [phone] Encounter Details Date Type Department Care Team (Latest Contact Info) Description 05/05/2022 3:00 AM EST Anti-Coag Telephone Visit [facility] [place] [phone] Shasta Delaney [facility] Antiphospholipid antibody [...] of this encounter Progress Notes * Shasta Delnaey RP - 05/05/2022 3:00 AM EST Images from the original note were not included. Anticoagulation Therapy Note Anticoagulation Summary As of 05/05/2022 INR goal: 2.5-3.5 TTR: 72.5 % (6 mo) INR used for dosin.4 (05/05/2022) Warfarin maintenance plan: 5 mg (5 mg x 1) every day; Starting 05/05/2022 Weekly warfarin total: 35 mg Plan last modified: Tucker Lane RN (03/03/2022) Next INR check: 05/12/2022 Priority: 1 Week Target end date: Indefinite Indications Antiphospholipid antibody----- use antiXa level to dose heparin. 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] Pulmonary embolism unspecified chronicity unspecified pulmonary embolism type unspecified whether acute cor pulmonale present [I26.99] Anticoagulation Episode Summary INR check location: Home Draw Preferred lab: [facility] Send INR reminders to: [facility] Comments: Home Monitor [phone] (M) Anticoagulation Care Providers Provider Role Specialty Phone number Gerardo Richter MD Responsible Cardiology [phone] Patient Assessment Service Type: INR Test Result [...] doses. Warfarin Therapy Instructions April 2022 Details Thuu Fri Sat 1 2 3 4 5 6 7 8 9 10 11 12 13 14 15 16 17 18 19 20 21 22 23 24 25 26 27 28 29 30 5 mg See details 31 5 mg Date Details 05/05 This INR check How to take your warfarin dose To take: 5 mg Take 1 of the 5 mg tablets. Warfarin Therapy Instructions May 2022 Details Thu Yaritza Fri Sat 1 5 mg 2 5 mg 3 5 mg 4 5 mg 5 5 mg 6 5 mg 7 8 9 10 11 12 13 14 15 16 17 18 19 20 21 22 23 24 25 26 27 28 Date Details No additional details Date of next INR: 05/12/2022 How to take your warfarin dose To take: 5 mg Take 1 of the 5 mg tablets. Description 05/05/22: INR in range. Continue on current [...] the bleeding continues she will go to [facility] ED and call us to let us [...] Anti-Coag Telephone Visit [facility] [place] [address] documented as of this encounter Visit Diagnoses Diagnosis Antiphospholipid antibody syndrome Primary hypercoagulable state Aortic valve prosthesis present Heart valve replaced by other means Pulmonary embolism, unspecified chronicity, unspecified pulmonary embolism type, unspecified whether acute cor pulmonale present documented in this encounter Care Teams Blow Moulding Machine Operator Relationship Specialty Start Date End Date Briana Timmons, PROCESS VALIDATION ENGINEER Aniya WALLIS [facility] [place] [address] PCP - General Family Medicine 08/09/21 documented as of this encounter
--- OUTSIDE RECORDS SUMMARY | 2023-11-04 15:10 | XMS_ITS | Encounter Summary ---
Author Organization [facility] [place] [address] Care Team Providers Care Splitting Machine Operator Name Role Phone Briana Timmons APRN Primary Care Provider [phone] Encounter Details Date Type Department Care Team (Late st Contact Info) Description 05/10/2022 [place] [phone] Jesse Jimenez MD [facility] [place] [address] Social History Tobacco Use Types Packs/Day Years [...] encounter Miscellaneous Notes * Telephone Encounter - Jesse Jimenez MD - 05/10/2022 10:56 AM EST Images from the original note were not included. Cecilia called to let me know that she unfortunately has COVID. She is a patient of Dr. Martino and is on immunosuppression for SLE and warfarin for APLA. She has felt awful for ~1 week. First COVID test was negative, second was positive. Her also is positive. We discussed treatment options and she is agreeable for Paxlovid. We reviewed meds and are going tohold the methotrexate (shots on Thursday) and she will reach out to rheumatology. She follows with Shasta with anticoagulation and will closely monitor her INRs (home monitor). Script sent to [facility]. Cecilia Dumont has tested positive for SARS-CoV-2 (COVID-19) and I have provided counseling, to the best of my ability, regarding their current clinical presentation, the risk of development of more severe illness (including hospitalization or ), and the relative benefit of oral antiviral therapy with Paxlovid at this time. We agree that the patient is likely to benefit from treatment. The patient has decided to: Take the treatment I discussed the risks and benefits of Paxlovid (nirmatrelvir/ritonavir) with this patient, highlighting the following: Paxlovid was approved under FDA Emergency Use Authorization in March 2021 for the treatment of adults and children aged 12 years or older and weighing at least 40 kg with fbtp-us-sqdfvuju COVID-19within 5 days of symptom onset in patients at high risk for progression to severe COVID-19 including hospitalization or . Paxlovid is an investigational medicine that is still being studied, andthere is limited information about the safety and effectiveness of using Paxlovid to treat people with beub-bq-pobrkjja COVID-19. Paxlovid contains 2 drugs: Nirmatrelvir inhibits the SARS-CoV-2 main protease which is essential for viral replication, and ritonavir ensures therapeutic levels of nirmatrelvir in the blood by inhibiting liver-mediated metabolism of nirmatrelvir. I reviewed the dose of Paxlovid (given below) as appropriate for this patient's kidney function. The patient understands that Paxlovid should be taken twice a day for 5 days. The patient was instructed to follow the detailed instructions for taking Paxlovid that are included in the Patient Fact Sheet for Paxlovid. Patient advised of the importance of completing the full 5-day treatment course andcontinuing isolation in accordance with public health recommendations. The patient was informed that Paxlovid may interact with some drugs causing serious or life-threating side effects and is contraindicated for use with some drugs. The patient was advised to report all medications they are taking, including prescription and over-the counter medicines, vitamins, and herbal supplements. Our pharmacy staff reviewed the patient's medication list and has identified theagents that may interact with Paxlovid; I reviewed any proposed adjustments (given below) with the patient. The patient was informed that serious and unexpected side effects may happen, and that because Paxlovid is still being studied, it is possible that all of the risks are not known at this time. Side effects of Paxlovid can include but are not limited to liver problems, resistance to HIV medications,altered taste, diarrhea, high blood pressure, and muscle aches. I counseled the patient on the signs and symptoms warranting immediate medical attention. Women of childbearing age: The patient was informed that use of Paxlovid may reduce the efficacy ofcombined hormonal contraceptives. If the patient is using combined hormonal contraceptives, they were advised to use an effective alternative contraceptive method or an additional barrier method of co ntraception or not have sexual activity while taking Paxlovid. The patient understood that this treatment with Paxlovid is voluntary and that the FDA may allow for other treatment options. The information provided to the patient in this encounter reflects the content of the Patient Fact Sheet for Paxlovid (https://www.fda.gov/media/438833/download), which the patient has been directed to for further reference. The patient understood the risks and benefits of Paxlovid described above and agrees to proceed with treatment. Paxlovid dose: nirmatrelvir 300 mg (2 tabs, each 150 mg) + ritonavir 100 mg (1 tab), taken together(3 tabs) twice a day for 5 days with or without food Medication changes: Hold methotrexate for now, talk to rheumotology about redosing and timing. Additional comments: Creatinine not up to date, but has been documented in this encounter Plan of Treatment Upcoming Encounters Date Type Department Care Team (Late st Contact Info) Description 11/11/2023 3:00 AM EDT Anti-Coag Telephone Visit [facility] [place] [address] documented as of this encounter Visit Diagnoses Not on filedocumented in this encounter Care Teams Splitting Machine Operator Relationship Specialty Start Date End Date Briana Timmons, JAVASCRIPT FRONT END DEVELOPER [address] [place] [address] PCP - General Family Medicine 08/09/21 documented as of this encounter
--- OUTSIDE RECORDS SUMMARY | 2023-11-04 15:10 | XMS_ITS | Encounter Summary ---
[place] [address] Care Team Providers Care Radiographer Cardiac Catheterization Name Role Phone Briana Timmons APRN Primary Care Provider [phone] Encounter Details Date Type Department Care Team (Late st Contact Info) Description 08/19/2022 External Results [facility] [place] [address] Estelle Clarke Social History Tobacco Use Types [...] 11/11/2023 3:00 AM EDT Anti-Coag Telephone Visit [facility] [place] [address] documented as of this encounter Procedures Procedure Name Priority Date/Time Associated Diagnosis Comments EXTERNAL INR RESULTS PANEL Routine 08/19/2022 10:10 AM EDT documented in this encounter Results * External INR Results Panel (08/19/2022 10:10 AM EDT) POCT INR 3.1 0.9 - 1.1 HOME MONITOR Blood 08/19/2022 10:1 0 AM EDT Historical Provider POINT OF CARE GERSON T ORDERABLES HOME MONITOR documented in this encounter Visit Diagnoses Not on filedocumented in this encounter Care Teams Radiographer Cardiac Catheterization Relationship Specialty Start Date End Date Briana Timmons, SUELLEN [place] [place] [address] PCP - General Family Medicine 08/09/21 documented as of this encounter
--- OUTSIDE RECORDS SUMMARY | 2023-11-04 15:10 | XMS_ITS | Encounter Summary ---
[place] [address] Care Team Providers Care Vocational Training Director Name Role Phone Briana Timmons APRN Primary Care Provider [phone] Encounter Details Date Type Department Care Team (Latest Contact Info) Description 08/14/2022 3:00 AM EDT Anti-Coag Telephone Visit [facility] [place] [phone] Shasta Delaney [facility] Antiphospholipid antibody syndrome; Aortic valve [...] Progress Notes * Shasta Delaney [facility] - 08/14/2022 3:00 AM EDT Images from the original note were not included. Anticoagulation Therapy Note Anticoagulation Summary As of 08/14/2022 INR goal: 2.5-3.5 TTR: 74.2 % (6 mo) INR used for dosin.8 (08/14/2022) Warfarin maintenance plan: 5 mg (5 mg x 1) every day; Starting 08/14/2022 Weekly warfarin total: 35 mg Plan last [...] Preferred lab: [facility] Send INR reminders to: [facility] Comments: Home Monitor [phone] (M) Anticoagulation Care Providers Provider Role Specialty Phone number Gerardo Richter MD Responsible Cardiology [phone] Patient Assessment Service Type: INR Test Result INR Result: Out of Range Patient Findings Positives: Missed doses (held for colonoscopy 08/11/22), Change in medications (Continue enoxaparin) Warfarin Therapy Instructions August 2022 Details Sun Mon e Wed Yaritza Fri Sat 1 2 3 4 5 6 7 8 9 10 11 7.5 mg See details 12 5 mg 13 14 15 16 17 18 19 20 21 22 23 24 25 26 27 28 29 30 31 Date Details 08/14 This INR check Date of next INR: 08/15/2022 How to take your warfarin dose To take: 5 mg Take 1 of the 5 mg tablets. To take: 7.5 mg Take 1.5 of the 5 mg tablets. Description 08/14/22: INR trending up. Continue enoxaparin and increase tonight's dose 7%. Test INR tomorrow. 08/12/22: Cecilia is bridging post-op. No change to plan given on 08/05/22. Cecilia gets weekly calls from [facility] requesting INR. Follow up on 08/15/22. 08/05/22: INR in range. Cecilia will start her bridge plan tomorrow. Reviewed today over myD-H. Her prescription was sent in my Dr. Arturo Aviles from [facility]. Dose was calculated using 1.5mg/kg/day.Labs are [...] note and were sent to Cecilia via [employer]. 07/21/22: INR in range. 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
--- OUTSIDE RECORDS SUMMARY | 2023-11-04 15:10 | XMS_ITS | Encounter Summary ---
[place] [address] Care Team Providers Care Sludge Filtration Operator Name Role Phone Briana Timmons APRN Primary Care Provider [phone] Reason for Visit * Reason Onset Date Comments Medication Refill 05/19/2022 Encounter Details Date Type Department Care Team (Late st Contact Info) Description 05/19/2022 Refill [place] [phone] Juventino Grajeda RN Systemic lupus erythematosus with other organ involvement, [...] Telephone Encounter - Juventino Grajeda RN - 05/19/2022 4:18 PM EST Images from the original note were not included. Cecilia calls to ask if she can restart Methotrexate and can we send prescription to her pharmacy if ok to restart. RTC to Cecilia and she had Covid starting 05-11-22, she reports she is better and tested negative yesterday. Reports she has a lingering Non-productive cough that causes her Right side of her chest to hurt. Denies any fevers or chills. Does report Hot Flashes but feels this is menopausal. Has some SOB with activity and relates this to CHF. Cecilia would like Prescriptions for MTX and Syringes to go to [place] [facility] as her pharmacy [facility] has closed their doors. I advised Cecilia that I will check with Dr. Baugh to see if ok to restart MTX and will likely call her back tomorrow. May 19, 2022 Brad Baugh MD to Me ?? 9:44 PM Signed off on Rx's to [facility] and she can resume meds. Thanks, Shaw I sent a message to Cecilia. documented in this encounter Plan of Treatment Upcoming Encounters Date Type Department Care Team (Late st Contact Info) Description 11/11/2023 3:00 AM EDT Anti-Coag Telephone Visit [facility] [place] [address] documented as of this encounter Visit Diagnoses Diagnosis Systemic lupus erythematosus with other organ involvement, unspecified SLE type documented in this encounter Care Teams Sludge Filtration Operator Relationship Specialty Start Date End Date Briana Timmons [place] [address] PCP - General Family Medicine 08/09/21 documented as of this encounter
--- OUTSIDE RECORDS SUMMARY | 2023-11-04 15:10 | XMS_ITS | Encounter Summary ---
[place] [address] Care Team Providers Care Sample Mounter Name Role Phone Briana Timmons APRN Primary Care Provider [phone] Encounter Details Date Type Department Care Team (Latest Contact Info) Description 06/23/2022 3:00 AM EDT Anti-Coag Telephone Visit [facility] [place] [phone] Shasta Delaney [facility] Antiphospholipid antibody syndrome; Aortic valve prosthesis present; [...] encounter Progress Notes * Shasta Delaney [facility] - 06/23/2022 3:00 AM EDT Images from the original note were not included. Anticoagulation Therapy Note Anticoagulation Summary As of 06/23/2022 INR goal: 2.5-3.5 TTR: 75.6 % (6 mo) INR used for dosin.7 (06/23/2022) Warfarin maintenance plan: 5 mg (5 mg x 1) every day; Starting 06/23/2022 Weekly warfarin total: 35 mg Plan last modified: Tucker Lane RN (03/03/2022) Next INR check: 06/30/2022 Priority: 1 Week Target end date: Indefinite Indications Antiphospholipid antibody----- use antiXa level to dose heparin. 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] Pulmonary embolism unspecified chronicity unspecified pulmonary embolism type unspecified whether acute cor pulmonale present [I26.99] Anticoagulation Episode Summary INR check location: Home Draw Preferred lab: [facility] Send INR reminders to: [facility] Comments: Home Monitor [phone] (M) Anticoagulation Care Providers Provider Role Specialty Phone number Gerardo Richter MD Responsible Cardiology [phone] Patient Assessment Service Type: INR Test Result [...] mg 28 29 30 31 Date Details 06/23 This INR check Date of next INR: 06/30/2022 How to take your warfarin dose To take: 5 mg Take 1 of the 5 mg tablets. Description 06/23/22: INR in range. Continue on current [...] changes this could be an emergent situation. documented in this encounter Plan of Treatment Upcoming Encounters Date Type Department Care Team (Late st Contact Info) Description 11/11/2023 3:00 AM EDT Anti-Coag Telephone Visit [facility] [place] [address] documented as of this encounter Visit Diagnoses Diagnosis Antiphospholipid antibody syndrome Primary hypercoagulable state Aortic valve prosthesis present Heart valve replaced by other means Pulmonary embolism, unspecified chronicity, unspecified pulmonary embolism type, unspecified whether acute cor pulmonale present documented in this encounter Care Teams Sample Mounter Relationship Specialty Start Date End [place] [address] PCP - General Family Medicine 08/09/21 documented as of this encounter
--- OUTSIDE RECORDS SUMMARY | 2023-11-04 15:10 | XMS_ITS | Encounter Summary ---
[place] [address] Care Team Providers Care Curer Acid Drum Name Role Phone Briana Timmons APRN Primary Care Provider [phone] Encounter Details Date Type Department Care Team (Late Contact Info) Description 07/07/2022 External Results [facility] Information Services [address] [place] [phone] Provider, His Benigno MD None Social History [...] Telephone Visit [facility] Central[place] [address] documented as of this encounter Procedures Procedure Name Priority Date/Time Associated Diagnosis Comments EXTERNAL INR RESULTS PANEL Routine 07/07/2022 11:13 AM EDT documented in this encounter Results * (ABNORMAL) External INR Results Panel (07/07/2022 11:13 AM EDT) POCT INR 3.1(A) 0.9 - 1.1 HOME MONITOR Blood 07/07/2022 11:1 3 AM EDT His Sie[place] Provider POINT OF CARE TE ST ORDERABLES HOME MONITOR documented in this encounter Visit Diagnoses Not on filedocumented in this encounter Care Teams Curer Acid Drum Relationship Specialty Start Date End Date Briana Timmons, FLEXIBLE MACHINING SYSTEM MACHINIST [place] [address] PCP - General Family Medicine 08/09/21 documented as of this encounter
--- OUTSIDE RECORDS SUMMARY | 2023-11-04 15:10 | XMS_ITS | Encounter Summary ---
[place] [address] Care Team Providers Care Architectural Superintendent Name Role Phone Briana Timmons APRN Primary Care Provider [phone] Encounter Details Date Type Department Care Team (Late st Contact Info) Description 06/23/2022 External Results [facility] [place] [address] Estelle Clarke Social History Tobacco Use Types [...] Telephone Visit [facility] [place] [address] documented as of this encounter Procedures Procedure Name Priority Date/Time Associated Diagnosis Comments EXTERNAL INR RESULTS PANEL Routine 06/23/2022 1:15 PM EDT documented in this encounter Results * External INR Results Panel (06/23/2022 1:15 PM EDT) POCT INR 2.7 0.9 - 1.1 HOME MONITOR Blood 06/23/2022 1:15 PM EDT Historical Provider POINT OF CARE GERSON T ORDERABLES HOME MONITOR documented in this encounter Visit Diagnoses Not on filedocumented in this encounter Care Teams Architectural Superintendent Relationship Specialty Start Date End Date Briana Timmons, FIRE SPRINKLER SERVICE TECHNICIAN [place] [address] [place] [address] PCP - General Family Medicine 08/09/21 documented as of this encounter
--- OUTSIDE RECORDS SUMMARY | 2023-11-04 15:10 | XMS_ITS | Encounter Summary ---
Author Organization [place] [id number] Care Team Providers Care Hospital Medical Assistant Name Role Phone Briana Timmons APRN Primary Care Provider [phone] Encounter Details Date Type Department Care Team (Late st Contact Info) Description 08/26/2022 [place] [address] Estelle Clarke Social History Tobacco Use Types [...] 11/11/2023 3:00 AM EDT Anti-Coag Telephone Visit [facility] [address] documented as of this encounter Visit Diagnoses Not on filedocumented in this encounter Care Teams Hospital Medical Assistant Relationship Specialty Start Date End Date [place] [address] PCP - General Family Medicine 08/09/21 documented as of this encounter
--- OUTSIDE RECORDS SUMMARY | 2023-11-04 15:10 | XMS_ITS | Encounter Summary ---
[place] [address] Care Team Providers Care Metal Fabricating Shop Helper Name Role Phone Briana Timmons APRN Primary Care Provider [phone] Encounter Details Date Type Department Care Team (Latest Contact Info) Description 07/21/2022 3:00 AM EDT Anti-Coag Telephone Visit [facility] [place] [phone] Shasta Delaney [facility] Antiphospholipid antibody syndrome; Aortic valve prosthesis [...] this encounter Progress Notes * Shasta Delaney [facility] - 07/21/2022 3:00 AM EDT Images from the original note were not included. Anticoagulation Therapy Note Anticoagulation Summary As of 07/21/2022 INR goal: 2.5-3.5 TTR: 77.4 % (6 mo) INR used for dosin.6 (07/21/2022) Warfarin maintenance plan: 5 mg (5 mg x 1) every day; Starting 07/21/2022 Weekly warfarin total: 35 mg Plan last modified: Tucker Lane RN (03/03/2022) Next INR check: 08/04/2022 Priority: 2 Weeks Target end date: Indefinite Indications Antiphospholipid antibody----- use antiXa level to dose heparin. 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] Pulmonary embolism unspecified chronicity unspecified pulmonary embolism type unspecified whether acute cor pulmonale present [I26.99] Anticoagulation Episode Summary INR check location: Home Draw Preferred lab: [facility] Send INR reminders to: [facility] Comments: Home Monitor [phone] (M) Anticoagulation Care Providers Provider Role Specialty Phone number Gerardo Richter MD Responsible Cardiology [phone] Patient Assessment Service Type: INR Test Result INR Result: In Range Patient Findings Positives: Upcoming invasive procedure (Colonoscopy 08/11/22) Warfarin Therapy Instructions July 2022 Details Thu Sat 1 2 3 [...] 5 mg 30 5 mg Date Details 07/21 This INR check How to take your warfarin dose To take: 5 mg Take 1 of the 5 mg tablets. Warfarin Therapy Instructions August 2022 Details Thu Fri Sat 1 5 mg 2 3 4 5 6 7 8 9 10 11 12 13 14 15 16 17 18 19 20 21 22 23 24 25 26 27 28 29 30 31 Date Details No additional details Date of next INR: 08/04/2022 How to take your warfarin dose To take: 5 mg Take 1 of the 5 mg tablets. Description 07/21/22: INR in range. 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
--- OUTSIDE RECORDS SUMMARY | 2023-11-04 15:10 | XMS_ITS | Encounter Summary ---
[place] [address] Care Team Providers Care Editor Map Name Role Phone Briana Timmons APRN Primary Care Provider [phone] Encounter Details Date Type Department Care Team (Late Contact Info) Description 07/21/2022 External Results [facility] Information Services [address] [place] [phone] Provider, His Benigno MD None Social History [...] Upcoming Encounters Date Type Department Care Team ([facility] Contact Info) Description 11/11/2023 3:00 AM EDT Anti-Coag Telephone Visit [facility] Centralized [place] [address] documented as of this encounter Procedures Procedure Name Priority Date/Time Associated Diagnosis Comments EXTERNAL INR RESULTS PANEL Routine 07/21/2022 9:41 AM EDT documented in this encounter Results * (ABNORMAL) External INR Results Panel (07/21/2022 9:41 AM EDT) POCT INR 2.6(A) 0.9 - 1.1 HOME MONITOR Blood 07/21/2022 9:41 AM EDT His [place] Provider POINT OF CARE TE ST ORDERABLES HOME MONITOR documented in this encounter Visit Diagnoses Not on filedocumented in this encounter Care Teams Editor Map Relationship Specialty Start Date End Date Briana Timmons, FRONT MAKER [place] [place] [address] PCP - General Family Medicine 08/09/21 documented as of this encounter
--- OUTSIDE RECORDS SUMMARY | 2023-11-04 15:10 | XMS_ITS | Encounter Summary ---
[place] [address] Care Team Providers Care Vertical Punch Operator Name Role Phone Briana Timmons APRN Primary Care Provider [phone] Encounter Details Date Type Department Care Team (Late st Contact Info) Description 06/17/2022 External Results [facility] [place] [address] Estelle Clarke Social History Tobacco Use Types [...] Telephone Visit [facility] [place] [address] documented as of this encounter Procedures Procedure Name Priority Date/Time Associated Diagnosis Comments EXTERNAL INR RESULTS PANEL Routine 06/17/2022 9:29 AM EDT documented in this encounter Results * External INR Results Panel (06/17/2022 9:29 AM EDT) POCT INR 2.6 0.9 - 1.1 HOME MONITOR Blood 06/17/2022 9:29 AM EDT Historical Provider POINT OF CARE GERSON T ORDERABLES HOME MONITOR documented in this encounter Visit Diagnoses Not on filedocumented in this encounter Care Teams Vertical Punch Operator Relationship Specialty Start Date End Date Briana Timmons, SUPPLY CHAIN PROCUREMENT MANAGER [place] [place] [address] PCP - General Family Medicine 08/09/21 documented as of this encounter
--- OUTSIDE RECORDS SUMMARY | 2023-11-04 15:10 | XMS_ITS | Encounter Summary ---
[place] [address] Care Team Providers Care Mononitrotoluene Operator Name Role Phone Briana Timmons APRN Primary Care Provider [phone] Encounter Details Date Type Department Care Team (Late st Contact Info) Description 05/09/2022 External Results [facility] [place] [address] Estelle Clarke Social History Tobacco Use Types [...] Telephone Visit [facility] [place] [address] documented as of this encounter Procedures Procedure Name Priority Date/Time Associated Diagnosis Comments EXTERNAL INR RESULTS PANEL Routine 05/09/2022 9:36 AM EST documented in this encounter Results * External INR Results Panel (05/09/2022 9:36 AM EST) POCT INR 2.9 0.9 - 1.1 HOME MONITOR Blood 05/09/2022 9:36 AM EST Historical Provider POINT OF CARE GERSON T ORDERABLES HOME MONITOR documented in this encounter Visit Diagnoses Not on filedocumented in this encounter Care Teams Mononitrotoluene Operator Relationship Specialty Start Date End Date Briana Timmons, SPOT MACHINE OPERATOR [place] [address] PCP - General Family Medicine 08/09/21 documented as of this encounter
--- OUTSIDE RECORDS SUMMARY | 2023-11-04 15:10 | XMS_ITS | Encounter Summary ---
[place] [address] Care Team Providers Care Toll Mechanic Name Role Phone Briana Timmons APRN Primary Care Provider [phone] Encounter Details Date Type Department Care Team (Latest Contact Info) Description 06/04/2022 3:00 AM EST Anti-Coag Telephone Visit [facility] [place] [phone] Shasta Delaney [facility] Antiphospholipid antibody syndrome; Aortic [...] Progress Notes * Shasta Delaney RP - 06/04/2022 3:00 AM EST Images from the original note were not included. Anticoagulation Therapy Note Anticoagulation Summary As of 06/04/2022 INR goal: 2.5-3.5 TTR: 73.8 % (6 mo) INR used for dosin.7 (06/04/2022) Warfarin maintenance plan: 5 mg (5 mg x 1) every day; Starting 06/04/2022 Weekly warfarin total: 35 mg Plan last modified: Tucker Lane RN (03/03/2022) Next INR check: 06/09/2022 Priority: 1 Week Target end date: Indefinite Indications Antiphospholipid antibody----- use antiXa level to dose heparin. 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] Pulmonary embolism unspecified chronicity unspecified pulmonary embolism type unspecified whether acute cor pulmonale present [I26.99] Anticoagulation Episode Summary INR check location: Home Draw Preferred lab: [facility] Send INR reminders to: [facility] Comments: Home Monitor [phone] (M) Anticoagulation Care Providers Provider Role Specialty Phone number Gerardo Richter MD Responsible Cardiology [phone] Patient Assessment Service Type: INR Test Result [...] Warfarin Therapy Instructions June 2022 Details Sun Thu Fri Sat 1 5 mg See details 2 5 mg 3 5 mg 4 5 mg 5 5 mg 6 5 mg 7 8 9 10 11 12 13 14 15 16 17 18 19 20 21 22 23 24 25 26 27 28 29 30 31 Date Details 06/04 This INR check Date of next INR: 06/09/2022 How to take your warfarin dose To take: 5 mg Take 1 of the 5 mg tablets. Description 06/04/22: INR in range. Continue on current [...] INR in range. 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
--- OUTSIDE RECORDS SUMMARY | 2023-11-04 15:10 | XMS_ITS | Encounter Summary ---
[place] [address] Care Team Providers Care Telehealth Nurse Name Role Phone Briana Timmons APRN Primary Care Provider [phone] Encounter Details Date Type Department Care Team (Latest Contact Info) Description 05/09/2022 3:00 AM EST Anti-Coag Telephone Visit [facility] [place] [address] Shasta Delaney [facility] Antiphospholipid antibody syndrome; Aortic valve prosthesis [...] Progress Notes * Shasta Delaney RP - 05/09/2022 3:00 AM EST Images from the original note were not included. Anticoagulation Therapy Note Anticoagulation Summary As of 05/09/2022 INR goal: 2.5-3.5 TTR: 74.8 % (6 mo) INR used for dosin.9 (05/09/2022) Warfarin maintenance plan: 5 mg (5 mg x 1) every day; Starting 05/09/2022 Weekly warfarin total: 35 mg Plan last [...] Preferred lab: [facility] Send INR reminders to: [facility] Comments: Home Monitor [phone] (M) Anticoagulation Care Providers Provider Role Specialty Phone number Gerardo Richter MD Responsible Cardiology [phone] Patient Assessment Service Type: INR Test Result INR Result: In Range Clinical Outcomes Negatives: Major bleeding event, Thromboembolic event, Anticoagulation-related hospital admission, Anticoagulation-related ED visit Patient Findings Positives: Change in health (Cold sxs and vomiting), Change in activity (due to illness) Negatives: Upcoming Travel, Planning or Currently , Recent Fall, Signs/symptoms of thrombosis, Signs/symptoms of bleeding, Laboratory test error suspected, Change in alcohol use, Upcoming invasive procedure, Emergency department visit, Upcoming dental procedure, Missed doses, Extra doses, Change in medications, Change in diet/appetite, Hospital admission, Bruising, Other complaints Warfarin Therapy Instructions May 2022 Details Sun Mon e Thuu Fri Sat 1 2 3 5 mg See details 4 5 mg 5 5 mg 6 5 mg 7 8 9 10 11 12 13 14 15 16 17 18 19 20 21 22 23 24 25 26 27 28 Date Details 05/09 This INR check Date of next INR: 05/12/2022 How to take your warfarin dose To take: 5 mg Take 1 of the 5 mg tablets. Description 05/09/22: INR in range. Cecilia has called the [facility] to report she has a cold, chills [...] the bleeding continues she will go to [facility] ED and call us to let us [...] Visit [facility] [place] [address] documented as of this encounter Visit Diagnoses Diagnosis Antiphospholipid antibody syndrome Primary hypercoagulable state Aortic valve prosthesis present Heart valve replaced by other means Pulmonary embolism, unspecified chronicity, unspecified pulmonary embolism type, unspecified whether acute cor pulmonale present documented in this encounter Care Teams Telehealth Nurse Relationship Specialty Start Date End Date Briana Timmons, FOOD BEVERAGE MANAGER [place] [address] PCP - General Family Medicine 08/09/21 documented as of this encounter
--- OUTSIDE RECORDS SUMMARY | 2023-11-04 15:10 | XMS_ITS | Encounter Summary ---
[place] [address] Care Team Providers Care Streetcar Repairer Helper Name Role Phone Briana Timmons APRN Primary Care Provider [phone] Encounter Details Date Type Department Care Team (Late Contact Info) Description 08/26/2022 External Results [facility] Information Services [address] [place] [phone] Provider, His Benigno MD None Social History [...] Upcoming Encounters Date Type Department Care Team ([facility] Contact Info) Description 11/11/2023 3:00 AM EDT Anti-Coag Telephone Visit [facility] Centralized [place] [address] documented as of this encounter Procedures Procedure Name Priority Date/Time Associated Diagnosis Comments EXTERNAL INR RESULTS PANEL Routine 08/26/2022 12:52 PM EDT documented in this encounter Results * (ABNORMAL) External INR Results Panel (08/26/2022 12:52 PM EDT) POCT INR 3.9(A) 0.9 - 1.1 HOME MONITOR Blood 08/26/2022 12:5 2 PM EDT His [place] Provider POINT OF CARE TE ST ORDERABLES HOME MONITOR documented in this encounter Visit Diagnoses Not on filedocumented in this encounter Care Teams Streetcar Repairer Helper Relationship Specialty Start Date End Date Briana Timmons, MEDICAL SCR[place] [address] PCP - General Family Medicine 08/09/21 documented as of this encounter
--- OUTSIDE RECORDS SUMMARY | 2023-11-04 15:10 | XMS_ITS | Encounter Summary ---
[place] [address] Care Team Providers Care Pattern Gater Name Role Phone Briana Timmons APRN Primary Care Provider [phone] Encounter Details Date Type Department Care Team (Latest Contact Info) Description 05/19/2022 3:00 AM EST Anti-Coag Telephone Visit [facility] [place] [phone] Shasta Delaney [facility] Antiphospholipid antibody syndrome; Aortic valve prosthesis present; [...] Progress Notes * Shasta Delaney RP - 05/19/2022 3:00 AM EST Images from the original note were not included. Anticoagulation Therapy Note Anticoagulation Summary As of 05/19/2022 INR goal: 2.5-3.5 TTR: 74.8 % (6 mo) INR used for dosin.40 (05/19/2022) Warfarin maintenance plan: 5 mg (5 mg x 1) every day; Starting 05/19/2022 Weekly warfarin total: 35 mg Plan last modified: Tucker Lane RN (03/03/2022) Next INR check: 05/26/2022 Priority: 1 Week Target end date: Indefinite Indications Antiphospholipid antibody----- use antiXa level to dose heparin. 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] Pulmonary embolism unspecified chronicity unspecified pulmonary embolism type unspecified whether acute cor pulmonale present [I26.99] Anticoagulation Episode Summary INR check location: Home Draw Preferred lab: [facility] Send INR reminders to: [facility] Comments: Home Monitor [phone] (M) Anticoagulation Care Providers Provider Role Specialty Phone number Gerardo Richter MD Responsible Cardiology [phone] Patient Assessment Service Type: INR Test Result INR Result: Out of Range Clinical Outcomes Negatives: Major bleeding event, Thromboembolic event, Anticoagulation-related hospital admission, Anticoagulation-related ED visit Patient Findings Positives: Change in health (COVID infection last week), Change in medications (recently completed Paxlovid) Negatives: Upcoming Travel, Planning or Currently , Recent Fall, Signs/symptoms of thrombosis, Signs/symptoms of bleeding, Laboratory test error suspected, Change in alcohol use, Change in activity, Upcoming invasive procedure, Emergency department visit, Upcoming dental procedure, Missed doses, Extra doses, Change in diet/appetite, Hospital admission, Bruising, Other complaints Warfarin Therapy Instructions May 2022 Details Sun Thu Fri Sat 1 2 3 4 5 6 7 8 9 10 11 12 13 5 mg See details 14 5 mg 15 5 mg 16 5 mg 17 5 mg 18 5 mg 19 5 mg 20 5 mg 21 22 23 24 25 26 27 28 Date Details 05/19 This INR check Date of next INR: 05/26/2022 How to take your warfarin dose To take: 5 mg Take 1 of the 5 mg tablets. Description 05/19/22: INR slightly below range. This was [...] INR in range. Cecilia has called the [facility] to report she has a cold, chills [...] Telephone Visit [facility] [place] [address] documented as of this encounter Procedures Procedure Name Priority Date/Time Associated Diagnosis Comments EXTERNAL INR RESULTS PANEL Routine 05/19/2022 documented in this encounter Results * External INR Results Panel (05/19/2022) INR 2.40 [facility] Blood 05/19/2022 Historical Provider POINT OF CARE GERSON T ORDERABLES Performing Organization Address City/State/[facility] Co de Phone Number [facility] [address] [phone] documented in this encounter Visit Diagnoses Diagnosis Antiphospholipid antibody syndrome Primary hypercoagulable state Aortic valve prosthesis present Heart valve replaced by other means Pulmonary embolism, unspecified chronicity, unspecified pulmonary embolism type, unspecified whether acute cor pulmonale present documented in this encounter Care Teams Pattern Gater Relationship Specialty Start Date End Date Briana Timmons, MAIL DISTRIBUTOR [address] [place] [address] PCP - General Family Medicine 08/09/21 documented as of this encounter
--- OUTSIDE RECORDS SUMMARY | 2023-11-04 15:10 | XMS_ITS | Encounter Summary ---
[place] [address] Care Team Providers Care Software Test Technician Name Role Phone Briana Timmons APRN Primary Care Provider [phone] Encounter Details Date Type Department Care Team (Latest Contact Info) Description 07/07/2022 3:00 AM EDT Anti-Coag Telephone Visit [facility] [place] [phone] Shasta Delaney [facility] [...] [facility] - 07/07/2022 3:00 AM EDT Images from the original note were not included. Anticoagulation Therapy Note Anticoagulation Summary As of 07/07/2022 INR goal: 2.5-3.5 TTR: 77.4 % (6 mo) INR used for dosin.1 (07/07/2022) Warfarin maintenance plan: 5 mg (5 mg x 1) every day; Starting 07/07/2022 Weekly warfarin total: 35 mg Plan last modified: Tucker Lane RN (03/03/2022) Next INR check: 07/21/2022 Priority: 2 Weeks Target end date: Indefinite Indications Antiphospholipid antibody----- use antiXa level to dose heparin. 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] Pulmonary embolism unspecified chronicity unspecified pulmonary embolism type unspecified whether acute cor pulmonale present [I26.99] Anticoagulation Episode Summary INR check location: Home Draw Preferred lab: [facility] Send INR reminders to: [facility] Comments: Home Monitor [phone] (M) Anticoagulation Care Providers Provider Role Specialty Phone number Gerardo Richter MD Responsible Cardiology [phone] Patient Assessment Service Type: INR Test Result [...] report any missed doses. Warfarin Therapy Instructions July 2022 Details Sun Thu Sat 1 2 3 5 mg See [...] 26 27 28 29 30 Date Details 07/07 This INR check Date of next INR: 07/21/2022 How to take your warfarin dose To take: 5 mg Take 1 of the 5 mg tablets. Description 07/07/22: INR in range. 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
--- OUTSIDE RECORDS SUMMARY | 2023-11-04 15:10 | XMS_ITS | Encounter Summary ---
[place] [address] Care Team Providers Care Cake Wrapper Name Role Phone Briana Timmons APRN Primary Care Provider [phone] Encounter Details Date Type Department Care Team (Latest Contact Info) Description 07/28/2022 Anti-Coag Telephone Visit [facility] Central[place] [phone] Shasta Delaney [facility] Antiphospholipid antibody syndrome; Aortic valve prosthesis present; [...] Shasta Delaney [facility] - 07/28/2022 1:57 PM EDT Images from the original note were not included. Anticoagulation Therapy Note Anticoagulation Summary As of 07/28/2022 INR goal: 2.5-3.5 TTR: 77.9 % (5.7 mo) INR used for dosing: No new INR was available at the time of this encounter. Warfarin maintenance plan: 5 mg (5 mg x 1) every day; Starting 07/28/2022 Weekly warfarin total: 35 mg Plan last modified: Tucker Lane RN (03/03/2022) Next INR check: 08/04/2022 Target end date: Indefinite Indications Antiphospholipid antibody----- use antiXa level to dose heparin. 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] Pulmonary embolism unspecified chronicity unspecified pulmonary embolism type unspecified whether acute cor pulmonale present [I26.99] Anticoagulation Episode Summary INR check location: Home Draw Preferred lab: [facility] Send INR reminders to: [facility] Comments: Home Monitor [phone] (M) Anticoagulation Care Providers Provider Role Specialty Phone number Gerardo Richter MD [facility] Cardiology [phone] Patient Assessment Service Type: Anticoag Transition Patient Findings Positives: Upcoming invasive procedure (Colonoscopy 08/11/22), Change in medications (enoxaparin 100mg BID starting) Warfarin Therapy Instructions July 2022 Details Thu [...] 1 of the 5 mg tablets. Description 07/28/22: Cecilia is scheduled for a colonoscopy on 08/11/22 and will need a full dose bridge per Dr. Richter based on high risk indication of Antiphospholipid Antibody Syndrome. The plan details can be found below this note and were sent to Cecilia via [employer]. 07/21/22: INR in range. Continue on current [...] changes this could be an emergent situation. Name: Cecilia Dumont : 1970 Procedure: Colonoscopy 08/11/22 Hold Warfarin: 5 Days Last dose: Thursday08/05/22 SCr: 1.0 CrCl: 105 mL/min Wt: 99.7kg Dose: 1.5mg/kg/day = 99.7kg x 1.5mg/kg/day = 149.55mg/day rounded to 150mg. The following Bridge Plan was approved by Dr. Richter on 01/08/22 during a TeleHealth visit. It will be reviewed with Cecilia over the phone on 08/04/22 and a copy of these instructions will be provided via [facility] per patient request. Enoxaparin 150mg/mL under the skin as directed below Date Treatment Thursday08/05/22 Take Warfarin dose in evening Last dose Thursday08/06/22 No Warfarin 08/07/22 No Warfarin Thursday08/08/22 No Warfarin Start enoxaparin 150mg subcutaneously once a day Thursday08/09/22 No Warfarin Continue enoxaparin 150mg subcutaneously once a day Thursday08/10/22 No Warfarin Enoxaparin 75mg subcutaneously once 24 hours prior to surgery Procedure Thursday08/11/22 Resume Warfarin in the evening at- 7.5mg at discretion of the surgeon Start Enoxaparin 45mg subcutaneously 6-12 hours after surgery at discretion of the surgeon Thursday08/12/22 Enoxaparin 150mg subcutaneously once a day Continue Warfarin - 7.5mg Thursday08/13/22 Enoxaparin 150mg subcutaneously once a day Continue Warfarin - 7.5mg 08/14/22 Enoxaparin 150mg subcutaneously once a day Continue Warfarin - 5mg Thursday08/15/22 Check INR If INR therapeutic discontinue enoxaparin If INR sub therapeutic, continue enoxaparin 150mg once a day Will need to continue enoxaparin injection until INR 2.0 or > x 1 reading documented in this encounter Plan of Treatment Upcoming Encounters Date Type Department Care Team (Late st Contact Info) Description 11/11/2023 3:00 AM EDT Anti-Coag Telephone Visit 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
--- OUTSIDE RECORDS SUMMARY | 2023-11-04 15:10 | XMS_ITS | Encounter Summary ---
[place] [address] Care Team Providers Care Open Claims Representative Name Role Phone Briana Timmons APRN Primary Care Provider [phone] Encounter Details Date Type Department Care Team (Late Contact Info) Description 04/14/2022 External Results [facility] Information Services [address] [place] [phone] Provider, His Benigno MD None Social History [...] Visit [facility] [place] [address] documented as of this encounter Procedures Procedure Name Priority Date/Time Associated Diagnosis Comments EXTERNAL INR RESULTS PANEL Routine 04/14/2022 12:18 PM EST documented in this encounter Results * (ABNORMAL) External INR Results Panel (04/14/2022 12:18 PM EST) POCT INR 3.6(A) 0.9 - 1.1 HOME MONITOR Blood 04/14/2022 12:1 8 PM EST His [place] Provider POINT OF CARE RAYRAY ORDERABLES HOME MONITOR documented in this encounter Visit Diagnoses Not on filedocumented in this encounter Care Teams Open Claims Representative Relationship Specialty Start Date End Date Briana Timmons APRN [place] [place] [address] PCP - General Family Medicine 08/09/21 documented as of this encounter
--- OUTSIDE RECORDS SUMMARY | 2023-11-04 15:10 | XMS_ITS | Encounter Summary ---
Author [place] [address] Care Team Providers Care Field Scout Name Role Phone Briana Timmons APRN Primary Care Provider [phone] Encounter Details Date Type Department Care Team (Late st Contact Info) Description 07/09/2022 Telephone [facility] [place] [address] Estelle Clarke Social History Tobacco Use Types [...] encounter Miscellaneous Notes * Telephone Encounter - Shasta Delaney, [facility] - 07/09/2022 3:37 PM EDT I spoke to Cecilia today. She will call the [facility] back once she gets the date of her Colonoscopy. Per Dr. Richter's chart note 01/08/22, Cecilia will need to be bridged. 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 Her pharmacy is [facility], recent weight [id number] and she recently had labs done at [facility]. Bridge plan will be sent to Cecilia via [facility]- once I receive the procedure date. * Telephone Encounter - Estelle Clarke - 07/09/2022 3:15 PM EDT Cecilia was going to have an Endo/[place] but we did not know about it so it was canceled when she went in to meet the surgeon. She feels they should've known about her being on warfarin since it's in her med record so she may want to try and have it done at . There is not set date but can you call her about this when you get a moment please? Mehrdad, Estelle documented in this encounter Plan of Treatment Upcoming Encounters Date Type Department Care Team (Late st Contact Info) Description 11/11/2023 3:00 AM EDT Anti-Coag Telephone Visit [facility] Central[place] [phone] documented as of this encounter Visit Diagnoses Not on filedocumented in this encounter Care Teams Field Scout Relationship Specialty Start Date End Date Briana Timmons APRN [address] [address] PCP - General Family Medicine 08/09/21 documented as of this encounter
--- OUTSIDE RECORDS SUMMARY | 2023-11-04 15:10 | XMS_ITS | Encounter Summary ---
[place] [address] Care Team Providers Care Oil Field Equipment Mechanic Name Role Phone Briana Timmons APRN Primary Care Provider [phone] Encounter Details Date Type Department Care Team (Late Contact Info) Description 08/12/2022 External Results [facility] Information Services [address] [place] [phone] Provider, His Benigno MD None Social History [...] Upcoming Encounters Date Type Department Care Team ([facility] Contact Info) Description 11/11/2023 3:00 AM EDT Anti-Coag Telephone Visit [facility] Central[place] [address] documented as of this encounter Procedures Procedure Name Priority Date/Time Associated Diagnosis Comments EXTERNAL INR RESULTS PANEL Routine 07/28/2022 10:59 AM EDT documented in this encounter Results * (ABNORMAL) External INR Results Panel (07/28/2022 10:59 AM EDT) POCT INR 1.2(A) HOME MONITOR Blood 07/28/2022 10:5 9 AM EDT His [place] Provider POINT OF CARE RAYRAY [place] ORDERABLES HOME MONITOR documented in this encounter Visit Diagnoses Not on filedocumented in this encounter Care Teams Oil Field Equipment Mechanic Relationship Specialty Start Date End Date Briana Timmons, SOFTWARE TECHNICAL LEAD [place] [address] PCP - General Family Medicine 08/09/21 documented as of this encounter
--- OUTSIDE RECORDS SUMMARY | 2023-11-04 15:10 | XMS_ITS | Encounter Summary ---
[place] [address] Care Team Providers Care Dental Laboratory Supervisor Name Role Phone Briana Timmons APRN Primary Care Provider [phone] Encounter Details Date Type Department Care Team (Late st Contact Info) Description 08/14/2022 External Results [facility] [place] [address] Estelle Clarke Social History Tobacco Use Types [...] [facility] [place] [address] documented as of this encounter Procedures Procedure Name Priority Date/Time Associated Diagnosis Comments EXTERNAL INR RESULTS PANEL Routine 08/14/2022 10:43 AM EDT documented in this encounter Results * (ABNORMAL) External INR Results Panel (08/14/2022 10:43 AM EDT) POCT INR 1.8(A) 0.9 - 1.1 HOME MONITOR Blood 08/14/2022 10:4 3 AM EDT Historical Provider POINT OF CARE GERSON T ORDERABLES HOME MONITOR documented in this encounter Visit Diagnoses Not on filedocumented in this encounter Care Teams Dental Laboratory Supervisor Relationship Specialty Start Date End Date Briana Timmons, CORPORATE LEGAL SECRETARY [place] [address] PCP - General Family Medicine 08/09/21 documented as of this encounter
--- OUTSIDE RECORDS SUMMARY | 2023-11-04 15:10 | XMS_ITS | Encounter Summary ---
[place] [address] Care Team Providers Care Manager Endoscopy Name Role Phone Briana Timmons APRN Primary Care Provider Encounter Details Date Type Department Care Team (Late Contact Info) Description 08/05/2022 External Results [facility] Information Services [address] [place] [phone] Provider, His Benigno MD None Social History [...] Upcoming Encounters Date Type Department Care Team ([facility] Contact Info) Description 11/11/2023 3:00 AM EDT Anti-Coag Telephone Visit [facility] [place] [address] documented as of this encounter Procedures Procedure Name Priority Date/Time Associated Diagnosis Comments EXTERNAL INR RESULTS PANEL Routine 08/05/2022 10:54 AM EDT documented in this encounter Results * (ABNORMAL) External INR Results Panel (08/05/2022 10:54 AM EDT) POCT INR 3.5(A) 0.9 - 1.1 HOME MONITOR Blood 08/05/2022 10:5 4 AM EDT His [place] Provider POINT OF CARE TE ST ORDERABLES HOME MONITOR documented in this encounter Visit Diagnoses Not on filedocumented in this encounter Care Teams Manager Endoscopy Relationship Specialty Start Date End Date Briana Timmons, CLERK ENTRY [place] [address] PCP - General Family Medicine 08/09/21 documented as of this encounter
--- OUTSIDE RECORDS SUMMARY | 2023-11-04 15:10 | XMS_ITS | Encounter Summary ---
[place] [address] Care Team Providers Care Lang Interpreter Name Role Phone Briana Timmons APRN Primary Care Provider [phone] Encounter Details Date Type Department Care Team (Late Contact Info) Description 08/12/2022 External Results [facility] Information Services [address] [place] [phone] Provider, His Benigno MD None Social History [...] Anti-Coag Telephone Visit [facility] Central[place] [address] documented as of this encounter Procedures Procedure Name Priority Date/Time Associated Diagnosis Comments EXTERNAL INR RESULTS PANEL Routine 08/12/2022 10:59 AM EDT documented in this encounter Results * (ABNORMAL) External INR Results Panel (08/12/2022 10:59 AM EDT) POCT INR 1.2 HOME MONITOR Blood 08/12/2022 10:5 9 AM EDT Historical Provider POINT OF CARE GERSON T ORDERABLES HOME MONITOR documented in this encounter Visit Diagnoses Not on filedocumented in this encounter Care Teams Lang Interpreter Relationship Specialty Start Date End Date Briana Timmons, ASBESTOS COVERER [address] [place] [address] PCP - General Family Medicine 08/09/21 documented as of this encounter"
--- OUTSIDE RECORDS SUMMARY | 2023-11-04 15:10 | XMS_ITS | Encounter Summary ---
[place] [address] Care Team Providers Care Foam Dispenser Name Role Phone Briana Timmons APRN Primary Care Provider [phone] Encounter Details Date Type Department Care Team (Late Contact Info) Description 05/26/2022 External Results [facility] Information Services [address] [place] [phone] Provider, His Benigno MD None Social History [...] Upcoming Encounters Date Type Department Care Team ([facility] Contact Info) Description 11/11/2023 3:00 AM EDT Anti-Coag Telephone Visit [facility] [place] [address] documented as of this encounter Procedures Procedure Name Priority Date/Time Associated Diagnosis Comments EXTERNAL INR RESULTS PANEL Routine 05/26/2022 1:01 PM EST documented in this encounter Results * (ABNORMAL) External INR Results Panel (05/26/2022 1:01 PM EST) POCT INR 2.8(A) 0.9 - 1.1 HOME MONITOR Blood 05/26/2022 1:01 PM EST His [place] Provider POINT OF CARE ST ORDERABLES HOME MONITOR documented in this encounter Visit Diagnoses Not on filedocumented in this encounter Care Teams Foam Dispenser Relationship Specialty Start Date End Date Briana Timmons, SUELLEN [place] [place] [address] PCP - General Family Medicine 08/09/21 documented as of this encounter
--- OUTSIDE RECORDS SUMMARY | 2023-11-04 15:10 | XMS_ITS | Encounter Summary ---
[place] [address] Care Team Providers Care Animal Eviscerator Name Role Phone Briana Timmons APRN Primary Care Provider [phone] Encounter Details Date Type Department Care Team (Late st Contact Info) Description 04/21/2022 External Results [facility] [place] [address] Estelle Clarke Social History Tobacco Use Types [...] Telephone Visit [facility] [place] [address] documented as of this encounter Procedures Procedure Name Priority Date/Time Associated Diagnosis Comments EXTERNAL INR RESULTS PANEL Routine 04/21/2022 12:03 PM EST documented in this encounter Results * External INR Results Panel (04/21/2022 12:03 PM EST) POCT INR 2.9 0.9 - 1.1 HOME MONITOR Blood 04/21/2022 12:0 3 PM EST Historical Provider POINT OF CARE GERSON T ORDERABLES HOME MONITOR documented in this encounter Visit Diagnoses Not on filedocumented in this encounter Care Teams Animal Eviscerator Relationship Specialty Start Date End Date Briana Timmons, SOLOIST DANCER [place] [address] PCP - General Family Medicine 08/09/21 documented as of this encounter
--- OUTSIDE RECORDS SUMMARY | 2023-11-04 15:10 | XMS_ITS | Encounter Summary ---
[place] [address] Care Team Providers Care Molder Feeder Name Role Phone Briana Timmons APRN Primary Care Provider [phone] Encounter Details Date Type Department Care Team (Latest Contact Info) Description 07/02/2022 3:00 AM EDT Anti-Coag Telephone Visit [facility] [place] [phone] Natalee Brandt LPN Antiphospholipid antibody syndrome; Aortic valve prosthesis present; [...] as of this encounter Progress Notes * Natalee Brandt LPN - 07/02/2022 3:00 AM EDT Images from the original note were not included. Anticoagulation Therapy Note Anticoagulation Summary As of 07/02/2022 INR goal: 2.5-3.5 TTR: 77.4 % (6 mo) INR used for dosin.9 (07/01/2022) Warfarin maintenance plan: 5 mg (5 mg x 1) every day; Starting 07/02/2022 Weekly warfarin total: 35 mg No change documented: Natalee Brandt LPN Plan last modified: Tucker Lane RN (03/03/2022) Next INR check: 07/08/2022 Priority: 1 Week Target end date: Indefinite Indications Antiphospholipid antibody----- use antiXa level to dose heparin. 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] Pulmonary embolism unspecified chronicity unspecified pulmonary embolism type unspecified whether acute cor pulmonale present [I26.99] Anticoagulation Episode Summary INR check location: Home Draw Preferred lab: [email or web address] Send INR reminders to: [facility] Comments: Home Monitor [phone] (M) Anticoagulation Care Providers Provider Role Specialty Phone number Gerardo Richter MD Responsible Cardiology [phone] Patient Assessment Service Type: INR Test Result [...] complaints Warfarin Therapy Instructions June 2022 Details Thu Sat 1 2 3 [...] 5 mg tablets. Warfarin Therapy Instructions July 2022 Details Thu Fri Sat 1 5 mg 2 5 mg 3 5 mg 4 5 mg 5 6 7 8 9 10 11 12 13 14 15 16 17 18 19 20 21 22 23 24 25 26 27 28 29 30 Date Details No additional details Date of next INR: 07/08/2022 How to take your warfarin dose To take: 5 mg Take 1 of the 5 mg tablets. Description 07/02 INR in range yesterday, spoke with [...] Telephone Visit [facility] [place] [address] documented as of this encounter Visit Diagnoses Diagnosis Antiphospholipid antibody syndrome Primary hypercoagulable state Aortic valve prosthesis present Heart valve replaced by other means Pulmonary embolism, unspecified chronicity, unspecified pulmonary embolism type, unspecified whether acute cor pulmonale present documented in this encounter Care Teams Molder Feeder Relationship Specialty Start Date End Date Briana Timmons, DRIVE SHAFT AND STEERING POST REPAIRER [address] [facility] [address] PCP - General Family Medicine 08/09/21 documented as of this encounter
--- OUTSIDE RECORDS SUMMARY | 2023-11-04 15:10 | XMS_ITS | Encounter Summary ---
[place] [address] Care Team Providers Care Olive Knocker Name Role Phone Briana Timmons APRN Primary Care Provider Encounter Details Date Type Department Care Team (Latest Contact Info) Description 05/12/2022 3:00 AM EST Anti-Coag Telephone Visit [facility] [place] [phone] Shasta Delaney [facility] Antiphospholipid antibody syndrome; Aortic [...] Progress Notes * Shasta Delaney RP - 05/12/2022 3:00 AM EST Images from the original note were not included. Anticoagulation Therapy Note Anticoagulation Summary As of 05/12/2022 INR goal: 2.5-3.5 TTR: 75.3 % (6 mo) INR used for dosin.10 (05/12/2022) Warfarin maintenance plan: 5 mg (5 mg x 1) every day; Starting 05/12/2022 Weekly warfarin total: 35 mg Plan last modified: Tucker Lane RN (03/03/2022) Next INR check: 05/14/2022 Priority: 1 Week Target end date: Indefinite Indications Antiphospholipid antibody----- use antiXa level to dose heparin. 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] Pulmonary embolism unspecified chronicity unspecified pulmonary embolism type unspecified whether acute cor pulmonale present [I26.99] Anticoagulation Episode Summary INR check location: Home Draw Preferred lab: [facility] Send INR reminders to: [facility] Comments: Home Monitor [phone] (M) Anticoagulation Care Providers Provider Role Specialty Phone number Gerardo Richter MD Responsible Cardiology [phone] Patient Assessment Service Type: INR Test Result INR Result: Out of Range Clinical Outcomes Negatives: Major bleeding event, Thromboembolic event, Anticoagulation-related hospital admission, Anticoagulation-related ED visit Patient Findings Positives: Change in health (COVID-19), Change in medications (Paxlovid x 5 days beginning 05/12/22, Tylenol 1,000mg 2-3 times a day), Change in diet/appetite (decreased) Negatives: Upcoming Travel, Planning or Currently , Recent Fall, Signs/symptoms of thrombosis, Signs/symptoms of bleeding, Laboratory test error suspected, Change in alcohol use, Change in activity, Upcoming invasive procedure, Emergency department visit, Upcoming dental procedure, Missed doses, Extra doses, Hospital admission, Bruising, Other complaints Comments: Cardiology and rheumatology are aware of illness Warfarin Therapy Instructions May 2022 Details Sun Mon Tue Wed Yaritza Fri Sat 1 2 3 4 5 6 Hold See details 7 2.5 mg 8 5 mg 9 10 11 12 13 14 15 16 17 18 19 20 21 22 23 24 25 26 27 28 Date Details 05/12 This INR check Date of next INR: 05/14/2022 How to take your warfarin dose To take: 2.5 mg Take 0.5 of a 5 mg tablet. To take: 5 mg Take 1 of the 5 mg tablets. Hold Do not take your warfarin dose. See the Details table to the right for additional instructions. Description 05/12/22: INR supra-therapeutic in the setting of [...] INR in range. Cecilia has called the [facility] to report she has a cold, chills [...] the bleeding continues she will go to [facility] ED and call us to let [...] Telephone Visit [facility] [place] [address] documented as of this encounter Procedures Procedure Name Priority Date/Time Associated Diagnosis Comments EXTERNAL INR RESULTS PANEL Routine 05/12/2022 documented in this encounter Results * External INR Results Panel (05/12/2022) INR 5.10 [facility] Blood 05/12/2022 Historical Provider POINT OF CARE [place] T ORDERABLES [facility] [address] [place] [address], [facility] [phone] documented in this encounter Visit Diagnoses Diagnosis Antiphospholipid antibody syndrome Primary hypercoagulable state Aortic valve prosthesis present Heart valve replaced by other means Pulmonary embolism, unspecified chronicity, unspecified pulmonary embolism type, unspecified whether acute cor pulmonale present documented in this encounter Care Teams Olive Knocker Relationship Specialty Start Date End Date Briana Timmons, NETWORK OPERATIONS TECHNIC[place] [address] PCP - General Family Medicine 08/09/21 documented as of this encounter
--- OUTSIDE RECORDS SUMMARY | 2023-11-04 15:11 | XMS_ITS | Encounter Summary ---
[place] [address] Care Team Providers Care Rerecording Mixer Name Role Phone Briana Timmons APRN Primary Care Provider [phone] Encounter Details Date Type Department Care Team (Late st Contact Info) Description 12/02/2021 External Results [facility] Centralized [place] [address] Estelle Clarke Social History Tobacco Use Types [...] AM EDT Anti-Coag Telephone Visit [facility] Centralized [place] [address] documented as of this encounter Procedures Procedure Name Priority Date/Time Associated Diagnosis Comments EXTERNAL INR RESULTS PANEL Routine 12/02/2021 11:51 AM EDT documented in this encounter Results * External INR Results Panel (12/02/2021 11:51 AM EDT) POCT INR 2.7 0.9 - 1.1 HOME MONITOR Blood 12/02/2021 11:5 1 AM EDT Historical Provider POINT OF CARE GERSON T ORDERABLES HOME MONITOR documented in this encounter Visit Diagnoses Not on filedocumented in this encounter Care Teams Rerecording Mixer Relationship Specialty Start Date End Date Briana Timmons, [address] [place] [place] [address] PCP - General Family Medicine 08/09/21 documented as of this encounter
--- OUTSIDE RECORDS SUMMARY | 2023-11-04 15:11 | XMS_ITS | Encounter Summary ---
[place] [address] Care Team Providers Care Assistant Corporate Controller Name Role Phone Briana Timmons APRN Primary Care Provider [phone] Encounter Details Date Type Department Care Team (Latest Contact Info) Description 02/17/2022 3:00 AM EST Anti-Coag Telephone Visit [facility] [place] [phone], RN Antiphospholipid antibody syndrome; Aortic valve prosthesis [...] Progress Notes * Tucker Lane RN - 02/17/2022 3:00 AM EST Images from the original note were not included. Anticoagulation Therapy Note Anticoagulation Summary As of 02/17/2022 INR goal: 2.5-3.5 TTR: 61.9 % (6 mo) INR used for dosin.6 (02/17/2022) Warfarin maintenance plan: 6 mg (5 mg x 1 and 1 mg x 1) every Thu, Yaritza; 5 mg (5 mg x 1) all other days; Starting 02/17/2022 Weekly warfarin total: 37 mg No change documented: Tucker Lane RN Plan last modified: Tucker Lane RN (02/10/2022) Next INR check: 02/24/2022 Priority: 1 Week Target end date: Indefinite Indications Antiphospholipid antibody----- use antiXa level to dose heparin. 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] Pulmonary embolism unspecified chronicity unspecified pulmonary embolism type unspecified whether acute cor pulmonale present [I26.99] Anticoagulation Episode Summary INR check location: Home Draw Preferred lab: [facility] Send INR reminders to: [facility] Comments: Home Monitor [phone] (M) Anticoagulation Care Providers Provider Role Specialty Phone number Gerardo Richter MD Responsible Cardiology [phone] Patient Assessment Service Type: INR Test Result INR Result: In Range Warfarin Therapy Instructions February 2022 Details Sun Thu Fri Sat 1 2 3 4 5 6 7 8 9 10 11 12 13 14 5 mg See details 15 5 mg 16 5 mg 17 6 mg 18 5 mg 19 5 mg 20 6 mg 21 5 mg 22 23 24 25 26 27 28 29 30 Date Details 02/17 This INR check Date of next INR: 02/24/2022 How to take your warfarin dose To take: 5 mg Take 1 of the 5 mg tablets. To take: 6 mg Take 1 of the 5 mg tablets and 1 of the 1 mg tablets. Description 02/17 INR in range today, left VM for Cecilia to call clinic with any changes, maintain current dose,retest 1 week. 02/10 INR elevated today, spoke with Cecilia, reports taking tylenol for headaches, denies other changes, decrease weekly dose 7.5%, retest 1 week. 02/03/22: INR in range. Continue on current dose of warfarin and retest INR again in 1 week. Cecilia's phone was not accepting calls, [facility] message sent 02/04/22 with dose plan. 01/27/22: INR in range. Continue on current dose of warfarin and retest INR again in 1 week. Has been taking Tylenol for a headache. Agreed to call [facility] if anything changes over the next week of if she experiences any sxs of bleeding. 01/20/22: INR in range. Continue on current dose of warfarin and retest INR again in 1 week. Cecilia is almost done a course of prednisone, started 01/07. Does not seem to be effecting INR, no changes in dose at this time. 01/13/22: INR in range. Continue on current dose of warfarin and retest INR again in 1 week. 01/06/22: INR in range. Continue on current dose of warfarin and retest INR again in 1 week. 12/24 INR in range yesterday, unable to reach by phone, [email or web address] message sent, maintain current dose, retest 2 weeks. 12/17 INR in range yesterday, spoke with Cecilia, denies any changes, maintain current dose, retest 1 week. 12/10/21: INR slightly below range. Increase dose 2.5% and test INR in 1 week. 12/02/21: INR in range. Continue on current dose of warfarin and retest INR again in 1 week. Test onThursday and [facility] call back on Thursday. Counseled on colors of 1mg tabs and 5mg tabs. Cecilia fills herpill box weekly on Mondays. documented in this encounter Plan of Treatment Upcoming Encounters Date Type Department Care Team (Late st Contact Info) Description 11/11/2023 3:00 AM EDT Anti-Coag Telephone Visit [facility] [place] [address] documented as of this encounter Visit Diagnoses Diagnosis Antiphospholipid antibody syndrome Primary hypercoagulable state Aortic valve prosthesis present Heart valve replaced by other means Pulmonary embolism, unspecified chronicity, unspecified pulmonary embolism type, unspecified whether acute cor pulmonale present documented in this encounter Care Teams Assistant Corporate Controller Relationship Specialty Start Date End Date Briana Timmons, WRINKLE CHASER [address] [place] [address] PCP - General Family Medicine 08/09/21 documented as of this encounter
--- OUTSIDE RECORDS SUMMARY | 2023-11-04 15:11 | XMS_ITS | Encounter Summary ---
[place] [address] Care Team Providers Care Side Laster Tack Name Role Phone Briana Timmons APRN Primary Care Provider [phone] Encounter Details Date Type Department Care Team (Late Contact Info) Description 04/08/2022 External Results [facility] Information Services [address] [place] [phone] Provider, His Benigno MD None Social History [...] Visit [facility] Central[place] [address] documented as of this encounter Procedures Procedure Name Priority Date/Time Associated Diagnosis Comments EXTERNAL INR RESULTS PANEL Routine 04/07/2022 9:01 PM EST documented in this encounter Results * (ABNORMAL) External INR Results Panel (04/07/2022 9:01 PM EST) POCT INR 2.7(A) 0.9 - 1.1 HOME MONITOR Blood 04/07/2022 9:01 PM EST His Counselor Provider POINT OF CARE ST ORDERABLES HOME MONITOR documented in this encounter Visit Diagnoses Not on filedocumented in this encounter Care Teams Side Laster Tack Relationship Specialty Start Date End Date Briana Timmons, [address] [place] [place] [address] PCP - General Family Medicine 08/09/21 documented as of this encounter
--- OUTSIDE RECORDS SUMMARY | 2023-11-04 15:11 | XMS_ITS | Encounter Summary ---
[place] [address] Care Team Providers Care Policy Adviser Name Role Phone Briana Timmons APRN Primary Care Provider [phone] Reason for Visit * Reason Comments Medication Refill Encounter Details Date Type Department Care Team (Late st Contact Info) Description 03/25/2022 Refill [facility] Centralized [place] [address] Gerardo Richter MD [facility] [place] [address] Social History Tobacco Use Types Packs/Day Years [...] Anti-Coag Telephone Visit [facility] Central[place] [address] documented as of this encounter Visit Diagnoses Not on filedocumented in this encounter Care Teams Policy Adviser Relationship Specialty Start Date End Date Briana Timmons, [place] [address] PCP - General Family Medicine 08/09/21 documented as of this encounter
--- OUTSIDE RECORDS SUMMARY | 2023-11-04 15:11 | XMS_ITS | Encounter Summary ---
[place] [address] Care Team Providers Care Card Brusher Name Role Phone Briana Timmons APRN Primary Care Provider [phone] Encounter Details Date Type Department Care Team (Late Contact Info) Description 11/18/2021 External Results [facility] Information Services [address] [place] [phone] Provider, His Benigno MD None Social History [...] Upcoming Encounters Date Type Department Care Team ([facility] Contact Info) Description 11/11/2023 3:00 AM EDT Anti-Coag Telephone Visit [facility] [place] [address] documented as of this encounter Procedures Procedure Name Priority Date/Time Associated Diagnosis Comments EXTERNAL INR RESULTS PANEL Routine 11/18/2021 9:04 AM EDT documented in this encounter Results * (ABNORMAL) External INR Results Panel (11/18/2021 9:04 AM EDT) POCT INR 2.8(A) 0.9 - 1.1 HOME MONITOR Blood 11/18/2021 9:04 AM EDT His [place] Provider POINT OF CARE TE ST ORDERABLES HOME MONITOR documented in this encounter Visit Diagnoses Not on filedocumented in this encounter Care Teams Card Brusher Relationship Specialty Start Date End Date Briana Timmons, INTERIOR SYSTEMS CARPENTER [place] [place] [address] PCP - General Family Medicine 08/09/21 documented as of this encounter
--- OUTSIDE RECORDS SUMMARY | 2023-11-04 15:11 | XMS_ITS | Encounter Summary ---
[place] [address] Care Team Providers Care Sales Representative [employer] Name Role Phone Briana Timmons APRN Primary Care Provider [phone] Encounter Details Date Type Department Care Team (Late Contact Info) Description 12/24/2021 External Results Information Services [address] [place] [phone] Provider, His Benigno MD None Social History [...] Upcoming Encounters Date Type Department Care Team ([facility] Contact Info) Description 11/11/2023 3:00 AM EDT Anti-Coag Telephone Visit [facility] [place] [address] documented as of this encounter Procedures Procedure Name Priority Date/Time Associated Diagnosis Comments EXTERNAL INR RESULTS PANEL Routine 12/23/2021 7:25 PM EDT documented in this encounter Results * (ABNORMAL) External INR Results Panel (12/23/2021 7:25 PM EDT) POCT INR 2.9(A) 0.9 - 1.1 HOME MONITOR Blood 12/23/2021 7:25 PM EDT His [place] Provider POINT OF CARE TE ST ORDERABLES HOME MONITOR documented in this encounter Visit Diagnoses Not on filedocumented in this encounter Care Teams Sales Representative [employer] Relationship Specialty Start Date End Date Briana Timmons, [address] [place] [place] [address] PCP - General Family Medicine 08/09/21 documented as of this encounter
--- OUTSIDE RECORDS SUMMARY | 2023-11-04 15:11 | XMS_ITS | Encounter Summary ---
[place] [address] Care Team Providers Care Theater Teacher Name Role Phone Briana Timmons APRN Primary Care Provider [phone] Encounter Details Date Type Department Care Team (Late Contact Info) Description 01/27/2022 External Results [facility] Information Services [address] [place] [phone] Provider, His Benigno MD None Social History [...] Upcoming Encounters Date Type Department Care Team ([facility] Contact Info) Description 11/11/2023 3:00 AM EDT Anti-Coag Telephone Visit [facility] Centralized [place] [address] documented as of this encounter Procedures Procedure Name Priority Date/Time Associated Diagnosis Comments EXTERNAL INR RESULTS PANEL Routine 01/27/2022 documented in this encounter Results * (ABNORMAL) External INR Results Panel (01/27/2022) POCT INR 3.6(A) 0.9 - 1.1 HOME MONITOR Blood 01/27/2022 His [place] Provider POINT OF CARE RAYRAY WALLIS ORDERABLES HOME MONITOR documented in this encounter Visit Diagnoses Not on filedocumented in this encounter Care Teams Theater Teacher Relationship Specialty Start Date End Date Briana Timmons, SENIOR INTEGRATION ARCHITECT [address] [place] [address] PCP - General Family Medicine 08/09/21 documented as of this encounter
--- OUTSIDE RECORDS SUMMARY | 2023-11-04 15:11 | XMS_ITS | Encounter Summary ---
[place] [address] Care Team Providers Care Manager Dialysis Name Role Phone Briana Timmons APRN Primary Care Provider [phone] Encounter Details Date Type Department Care Team (Late Contact Info) Description 03/24/2022 External Results [facility] Information Services [address] [place] [phone] Provider, His Benigno MD None Social History [...] Upcoming Encounters Date Type Department Care Team ([facility] Contact Info) Description 11/11/2023 3:00 AM EDT Anti-Coag Telephone Visit [facility] [place] [address] documented as of this encounter Procedures Procedure Name Priority Date/Time Associated Diagnosis Comments EXTERNAL INR RESULTS PANEL Routine 03/24/2022 12:54 PM EST documented in this encounter Results * (ABNORMAL) External INR Results Panel (03/24/2022 12:54 PM EST) POCT INR 2.9(A) 0.9 - 1.1 HOME MONITOR Blood 03/24/2022 12:5 4 PM EST His [place] Provider POINT OF CARE RAYRAY ORDERABLES HOME MONITOR documented in this encounter Visit Diagnoses Not on filedocumented in this encounter Care Teams Manager Dialysis Relationship Specialty Start Date End Date Briana Timmons, S[address] [place] [address] PCP - General Family Medicine 08/09/21 documented as of this encounter
--- OUTSIDE RECORDS SUMMARY | 2023-11-04 15:11 | XMS_ITS | Encounter Summary ---
[place] [address] Care Team Providers Care Completions Engineer Name Role Phone Briana Timmons APRN Primary Care Provider [phone] Encounter Details Date Type Department Care Team (Late Contact Info) Description 02/25/2022 External Results [facility] Information Services [address] [place] [phone] Provider, His Benigno MD None Social History [...] Upcoming Encounters Date Type Department Care Team ([facility] Contact Info) Description 11/11/2023 3:00 AM EDT Anti-Coag Telephone Visit [facility] [place] [address] documented as of this encounter Procedures Procedure Name Priority Date/Time Associated Diagnosis Comments EXTERNAL INR RESULTS PANEL Routine 02/25/2022 1:03 PM EST documented in this encounter Results * (ABNORMAL) External INR Results Panel (02/25/2022 1:03 PM EST) POCT INR 3.1(A) 0.9 - 1.1 HOME MONITOR Blood 02/25/2022 1:03 PM EST His [place] Provider POINT OF CARE ST ORDERABLES HOME MONITOR documented in this encounter Visit Diagnoses Not on filedocumented in this encounter Care Teams Completions Engineer Relationship Specialty Start Date End Date Briana Timmons, SUE[address] [place] [address] PCP - General Family Medicine 08/09/21 documented as of this encounter
--- OUTSIDE RECORDS SUMMARY | 2023-11-04 15:11 | XMS_ITS | Encounter Summary ---
[place] [address] Care Team Providers Care Wheel Loader Operator Name Role Phone Briana Timmons APRN Primary Care Provider [phone] Encounter Details Date Type Department Care Team (Late Contact Info) Description 01/13/2022 External Results [facility] Information Services [address] [place] [phone] Provider, His Benigno MD None Social History [...] Upcoming Encounters Date Type Department Care Team ([facility] Contact Info) Description 11/11/2023 3:00 AM EDT Anti-Coag Telephone Visit [facility] [place] [address] documented as of this encounter Procedures Procedure Name Priority Date/Time Associated Diagnosis Comments EXTERNAL INR RESULTS PANEL Routine 01/13/2022 documented in this encounter Results * (ABNORMAL) External INR Results Panel (01/13/2022) POCT INR 2.9(A) 0.9 - 1.1 HOME MONITOR Blood 01/13/2022 His [place] Provider POINT OF CARE RAYRAY WALLIS ORDERABLES HOME MONITOR documented in this encounter Visit Diagnoses Not on filedocumented in this encounter Care Teams Wheel Loader Operator Relationship Specialty Start Date End Date Briana Timmons, CHIEF INTERNAL AUDITOR [address] [place] [address] PCP - General Family Medicine 08/09/21 documented as of this encounter
--- OUTSIDE RECORDS SUMMARY | 2023-11-04 15:11 | XMS_ITS | Encounter Summary ---
[place] [address] Care Team Providers Care Tire Rebuilder Name Role Phone Briana Timmons APRN Primary Care Provider [phone] Encounter Details Date Type Department Care Team (Late Contact Info) Description 03/03/2022 External Results [facility] Information Services [address] [place] [phone] Provider, His Benigno MD None Social History [...] Upcoming Encounters Date Type Department Care Team ([facility] Contact Info) Description 11/11/2023 3:00 AM EDT Anti-Coag Telephone Visit [facility] [place] [address] documented as of this encounter Procedures Procedure Name Priority Date/Time Associated Diagnosis Comments EXTERNAL INR RESULTS PANEL Routine 03/03/2022 10:31 AM EST documented in this encounter Results * (ABNORMAL) External INR Results Panel (03/03/2022 10:31 AM EST) POCT INR 4.2(A) 0.9 - 1.1 HOME MONITOR Blood 03/03/2022 10:3 1 AM EST His [place] Provider POINT OF CARE RAYRAY ORDERABLES HOME MONITOR documented in this encounter Visit Diagnoses Not on filedocumented in this encounter Care Teams Tire Rebuilder Relationship Specialty Start Date End Date Briana Timmons, [place] [place] [address] PCP - General Family Medicine 08/09/21 documented as of this encounter
--- OUTSIDE RECORDS SUMMARY | 2023-11-04 15:11 | XMS_ITS | Encounter Summary ---
[place] [address] Care Team Providers Care Resident Director Name Role Phone Briana Timmons APRN Primary Care Provider [phone] Encounter Details Date Type Department Care Team (Late st Contact Info) Description 01/06/2022 External Results [facility] Centralized [place] [address] Estelle Clarke Social History Tobacco Use Types [...] Telephone Visit [facility] Centralized [place] [address] documented as of this encounter Procedures Procedure Name Priority Date/Time Associated Diagnosis Comments EXTERNAL INR RESULTS PANEL Routine 01/06/2022 12:25 PM EDT documented in this encounter Results * External INR Results Panel (01/06/2022 12:25 PM EDT) POCT INR 3.3 0.9 - 1.1 HOME MONITOR Blood 01/06/2022 12:2 5 PM EDT Historical Provider POINT OF CARE GERSON T ORDERABLES HOME MONITOR documented in this encounter Visit Diagnoses Not on filedocumented in this encounter Care Teams Resident Director Relationship Specialty Start Date End Date Briana Timmons, SUELLEN [place] [address] PCP - General Family Medicine 08/09/21 documented as of this encounter
--- OUTSIDE RECORDS SUMMARY | 2023-11-04 15:11 | XMS_ITS | Encounter Summary ---
[place] [address] Care Team Providers Care Employee Benefits Manager Name Role Phone Briana Timmons APRN Primary Care Provider [phone] Reason for Visit * Reason Onset Date Comments Medication Refill 03/26/2022 Encounter Details Date Type Department Care Team (Late st Contact Info) Description 03/26/2022 [place] [id number] Brad Baugh MD [facility] [place] [address] [place] [address] Systemic lupus erythematosus with other organ involvement, [...] Telephone Visit [facility] Centralized [place] [address] documented as of this encounter Visit Diagnoses Diagnosis Systemic lupus erythematosus with other organ involvement, unspecified SLE type documented in this encounter Care Teams Employee Benefits Manager Relationship Specialty Start Date End Date Briana Timmons, LABEL CODER [place] [address] PCP - General Family Medicine 08/09/21 documented as of this encounter
--- OUTSIDE RECORDS SUMMARY | 2023-11-04 15:11 | XMS_ITS | Encounter Summary ---
[place] [address] Care Team Providers Care Rn Stars Name Role Phone Briana Timmons APRN Primary Care Provider [phone] Encounter Details Date Type Department Care Team (Late Contact Info) Description 02/10/[address] [facility] Information Services [address] [place] [phone] Provider, His Benigno MD None Social History [...] Upcoming Encounters Date Type Department Care Team ([facility] Contact Info) Description 11/11/2023 3:00 AM EDT Anti-Coag Telephone Visit [facility] [place] [address] documented as of this encounter Procedures Procedure Name Priority Date/Time Associated Diagnosis Comments EXTERNAL INR RESULTS PANEL Routine 02/10/2022 documented in this encounter Results * (ABNORMAL) External INR Results Panel (02/10/2022) POCT INR 4.4(A) 0.9 - 1.1 HOME MONITOR Blood 02/10/2022 His [place] Provider POINT OF CARE RAYRAY WALLIS ORDERABLES HOME MONITOR documented in this encounter Visit Diagnoses Not on filedocumented in this encounter Care Teams Rn Stars Relationship Specialty Start Date End Date Briana Timmons, [employer]IT[employer] Aniya [facility] [address] PCP - General Family Medicine 08/09/21 documented as of this encounter
--- OUTSIDE RECORDS SUMMARY | 2023-11-04 15:11 | XMS_ITS | Encounter Summary ---
[place] [address] Care Team Providers Care Cd Manufacturing Supervisor Name Role Phone Briana Timmons APRN Primary Care Provider [phone] Encounter Details Date Type Department Care Team (Late Contact Info) Description 12/17/2021 External Results [facility] Information Services [address] [place] [phone] Provider, His Benigno MD None Social History [...] 11/11/2023 3:00 AM EDT Anti-Coag Telephone Visit [facility] [place] [address] documented as of this encounter Procedures Procedure Name Priority Date/Time Associated Diagnosis Comments EXTERNAL INR RESULTS PANEL Routine 12/16/2021 10:23 PM EDT documented in this encounter Results * (ABNORMAL) External INR Results Panel (12/16/2021 10:23 PM EDT) POCT INR 3.4(A) 0.9 - 1.1 HOME MONITOR Blood 12/16/2021 10:2 3 PM EDT His [place] Provider POINT OF CARE TE ST ORDERABLES HOME MONITOR documented in this encounter Visit Diagnoses Not on filedocumented in this encounter Care Teams Cd Manufacturing Supervisor Relationship Specialty Start Date End Date Briana Timmons, LARD BLEACH[place] [address] PCP - General Family Medicine 08/09/21 documented as of this encounter
--- OUTSIDE RECORDS SUMMARY | 2023-11-04 15:11 | XMS_ITS | Encounter Summary ---
[place] [address] Care Team Providers Care Medical Typist Name Role Phone Briana Timmons APRN Primary Care Provider [phone] Encounter Details Date Type Department Care Team (Late st Contact Info) Description 12/30/2021 External Results [facility] [place] [address] Estelle Clarke Social History Tobacco Use Types [...] Visit [facility] [place] [address] documented as of this encounter Procedures Procedure Name Priority Date/Time Associated Diagnosis Comments EXTERNAL INR RESULTS PANEL Routine 12/30/2021 1:44 PM EDT documented in this encounter Results * (ABNORMAL) External INR Results Panel (12/30/2021 1:44 PM EDT) POCT INR 3.6(A) 0.9 - 1.1 HOME MONITOR Blood 12/30/2021 1:44 PM EDT Historical Provider POINT OF CARE GERSON T ORDERABLES HOME MONITOR documented in this encounter Visit Diagnoses Not on filedocumented in this encounter Care Teams Medical Typist Relationship Specialty Start Date End Date Briana Timmons, VEHICLE [place] [address] PCP - General Family Medicine 08/09/21 documented as of this encounter
--- OUTSIDE RECORDS SUMMARY | 2023-11-04 15:11 | XMS_ITS | Encounter Summary ---
[place] [address] Care Team Providers Care Type Mapper Name Role Phone Briana Timmons APRN Primary Care Provider [phone] Encounter Details Date Type Department Care Team (Late Contact Info) Description 12/10/2021 External Results [facility] Information Services [address] [place] [phone] Provider, His Benigno MD None Social History [...] 11/11/2023 3:00 AM EDT Anti-Coag Telephone Visit [facility] [place] [address] documented as of this encounter Procedures Procedure Name Priority Date/Time Associated Diagnosis Comments EXTERNAL INR RESULTS PANEL Routine 12/09/2021 3:37 PM EDT documented in this encounter Results * (ABNORMAL) External INR Results Panel (12/09/2021 3:37 PM EDT) POCT INR 2.4(A) 0.9 - 1.1 HOME MONITOR Blood 12/09/2021 3:37 PM EDT His [place] Provider POINT OF CARE TE ST ORDERABLES HOME MONITOR documented in this encounter Visit Diagnoses Not on filedocumented in this encounter Care Teams Type Mapper Relationship Specialty Start Date End Date Briana Timmons, SUELLEN [place] [address] PCP - General Family Medicine 08/09/21 documented as of this encounter
--- OUTSIDE RECORDS SUMMARY | 2023-11-04 15:11 | XMS_ITS | Encounter Summary ---
[place] [address] Care Team Providers Care Rail Filler Name Role Phone Briana Timmons APRN Primary Care Provider [phone] Encounter Details Date Type Department Care Team (Latest Contact Info) Description 11/11/2021 3:00 AM EDT Anti-Coag Telephone Visit [facility] [place] [phone] Shasta Delaney, [facility] Antiphospholipid antibody [...] * Shasta Delaney [facility] - 11/11/2021 3:00 AM EDT Images from the original note were not included. Anticoagulation Therapy Note Anticoagulation Summary As of 11/11/2021 INR goal: 2.5-3.5 TTR: 34.0 % (6 mo) INR used for dosin.4 (11/11/2021) Warfarin maintenance plan: 7.5 mg (5 mg x 1.5) every Sun; 5 mg (5 mg x 1) all other days Weekly warfarin total: 37.5 mg Plan last modified: Shasta Delaney [facility] (11/11/2021) Next INR check: 11/18/2021 Priority: 1 Week Target end date: Indefinite Indications Antiphospholipid antibody----- use antiXa level to dose heparin. 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] Pulmonary embolism unspecified chronicity unspecified pulmonary embolism type unspecified whether acute cor pulmonale present [I26.99] Anticoagulation Episode Summary INR check location: Home Draw Preferred lab: [facility] Send INR reminders to: [facility] Comments: Home Monitor [phone] (M) Anticoagulation Care Providers Provider Role Specialty Phone number Gerardo Richter MD Responsible Cardiology [phone] Patient Assessment Service Type: INR Test Result INR Result: Out of Range Clinical Outcomes Patient Findings Comments: I left a voicemail for Priscilla with instructions to call with any changes in diet, medication or health or if the dosing we have on record differs from the dose they have been taking. Also instructed to call clinic to report any signs or symptoms of bleeding Warfarin Therapy Instructions November 2021 Details Sun Thu Yaritza Fri Sat 1 2 3 4 5 6 7 8 2.5 mg See details 9 5 mg 10 5 mg 11 5 mg 12 5 mg 13 5 mg 14 7.5 mg 15 5 mg 16 17 18 19 20 21 22 23 24 25 26 27 28 29 30 31 Date Details 11/11 This INR check Date of next INR: 11/18/2021 How to take your warfarin dose To take: 2.5 mg Take 0.5 of a 5 mg tablet. To take: 5 mg Take 1 of the 5 mg tablets. To take: 7.5 mg Take 1.5 of the 5 mg tablets. Description 11/11/21: INR above range. Decrease dose this week 12.5% (6.2% weekly dose reduction and a 6.3% one time dose reduction tonight). Test INR in 1 week 11/05/21: INR above range. Decrease weekly dose 6% and test INR in 1 week. 10/28/21: INR in range. Continue on current dose of warfarin and retest INR again in 1 week. 10/21/21: INR above range. Cecilia has recently started methotrexate, which may enhance the anticoagulant effect of warfarin. She also reports diarrhea this week and a decreased appetite. Decrease weekly dose 6% in addition a one time reduction tonight given recent diarrhea and appetite changes. Totaling 11% reduction this week. 10/15/21: INR in range on 45mg/wk. Cecilia missed last evening dose. I increased dose this week, as one time adjustments, to account for missed dose. Test INR on Thursday. 10/08 INR elevated today, spoke with Cecilia, reports she started methotrexate on 10/07, denies other changes, decrease weekly dose 5.3%, recheck 1 week. 09/30 INR in range today, spoke with Cecilia, reports she will start methotrexate 10/02, maintain current dose, recheck 1 week. 09/23/21: INR above range. Decrease weekly dose 5% and test INR in 1 week. She is not feeling great and has a decreased appetite. Denies med changes, illness and sxs of bruising or bleeding. 09/16 INR slightly low today, spoke with Cecilia, reports she is feeling better, denies any changes, will continue maintenance dose as this is an increase over last week, recheck 1 week. 09/11/21: INR has come down and is below range. Since INR was above range due to illness, I will havePriscillae resume current dose of warfarin and test INR on Thursday. 09/09/21: INR supra-therapeutic. Hold warfarin x 2 and test INR Thursday. Cecilia had vomiting on Thursday and decreased appetite since then. Denies blood or coffee ground colored vomit, denies dark/tarry/sticky stool or any other visible signs of bleeding. Reports some bruising. Reviewed sxs that require immediate medical attention. documented in this encounter Plan of Treatment Upcoming Encounters Date Type Department Care Team (Late st Contact Info) Description 11/11/2023 3:00 AM EDT Anti-Coag Telephone Visit [facility] [place] [address] documented as of this encounter Visit Diagnoses Diagnosis Antiphospholipid antibody syndrome Primary hypercoagulable state Aortic valve prosthesis present Heart valve replaced by other means Pulmonary embolism, unspecified chronicity, unspecified pulmonary embolism type, unspecified whether acute cor pulmonale present documented in this encounter Care Teams Rail Filler Relationship Specialty Start Date End Date Briana Timmons, CHEMICAL PLANT OPERATOR [place] [address] PCP - General Family Medicine 08/09/21 documented as of this encounter
--- OUTSIDE RECORDS SUMMARY | 2023-11-04 15:11 | XMS_ITS | Encounter Summary ---
Author Organization [facility] [place] [address] Care Team Providers Care Economic Research Assistant Name Role Phone Briana Timmons APRN Primary Care Provider Encounter Details Date Type Department Care Team (Latest Contact Info) Description 01/08/2022 11:40 AM EDT TH Visit (TeleHealth) Cardiology at [address] [phone] Gerardo Richter MD [facility] [place] [address] S/P AVR; Anti-phospholipid antibody syndrome; Pulmonary embolism, unspecified chronicity, unspecified pulmonary embolism type, unspecified whether acute cor pulmonale present; FATIMA (dyspnea on exertion) Social History Tobacco Use Types Packs/Day Years [...] as of this encounter Progress Notes * Gerardo Richter MD - 01/08/2022 11:40 AM EDT CARDIOLOGY/VASCULAR MEDICINE TELE VISIT NOTE Cecilia Dumont 01/05/22 The patient consented to this being a virtual visit. HPI: Cecilia Dumont is a 52 y.o. year old female with a history of SLE with triple positive APLA, CVA, dilated CMY with recovered EF, AVR??who presents for follow-up. She was??admitted to [facility] cardiology in March 2020 with several weeks of pleuritic chest pain and FATIMA. CTA at outside hospital initially concerning for subsegmental PE w/o RV strain; however, consequent review with radiology at [facility] w/o evidence of PE or other lung pathology. Her TTE was unremarkable. Due to her symptoms, she underwent stress echo, which showed possible ischemia in RCA territory. Due to small territory of WMA, she was discharged with outpatient follow-up.??Consequent coronary CTA w/o obstructive CAD. PFTs normal. She had CPET for ongoing FATIMA, which was essentially normal with normal exercise capacity, normal cardiovascular response, and normal baseline PFTs. I last talked to her via telehealth on 07/01/2021. She has been doing well from cardiovascular perspective. Having trouble with knees - saw orthopedics, planning for more imaging. Breathing about the same, still FATIMA with moderate exertion, unchanged. No issues with warfarin. No LE edema. Brief ROS: Activity level: Independent with ADLs No new orthopnea, PND, LE edema. No lightheadedness, dizziness, syncope/pre- syncope. No new CP. Planning on colonoscopy. Medications: Current Outpatient Medications Medication Sig Dispense Refill ??? warfarin (Coumadin) 1 mg Tablet Take 1 tablet by mouth daily as ordered by the Coumadin Clinic 30 tablet 2 ??? metHOTREXate 25 mg/mL Solution Inject 0.4 mLs subcutaneously once a week. 6 mL 3 ??? Syringe with Needle, Safety 1 mL 27 gauge x 1/2 Syringe 1 Syringe by [facility]Non-Drug; Combo Route) route once a week. Use weekly to inject methotrexate subcutaneously. 15 each 3 ??? folic acid (Folvite) 1 mg Tablet Take 1 tablet by mouth daily. 90 tablet 3 ??? warfarin (Coumadin) 5 mg Tablet Variable dosing- Take up to one and one-half tablets by mouth nightly as directed by the Anticoagulation Clinic 135 tablet 2 ??? enoxaparin (Lovenox) 150 mg/mL Syringe Inject 0.9mL subcutaneously into the abdomen once a day until INR is in therapeutic range 1 mL 5 ??? atorvastatin (Lipitor) 40 mg Tablet Take 1 tablet by mouth every evening. 90 tablet 0 ??? metoprolol succinate XL (Toprol-XL) 50 mg Tablet Sustained Release 24 hr Take 1 tablet by mouthdaily. 90 tablet 0 ??? levothyroxine (Synthroid) 25 mcg Tablet Take 1 tablet by mouth daily. Dosage Unknown 90 tablet 0 ??? FLUoxetine (PROzac) 40 mg Capsule Take 40 mg by mouth daily. ??? hydrOXYchloroQUINE (Plaquenil) 200 mg Tablet Take 1 tablet by mouth 2 times daily. Indications:systemic lupus erythematosus, an autoimmune disease 60 tablet 0 ??? diclofenac (VOLTAREN) 1 % Gel Apply 2 g topically 3 times daily as needed. 100 g 1 ??? pantoprazole (PROTONIX) 40 mg Tablet, Delayed Release (E.C.) Take 40 mg by mouth 2 times daily. ??? acetaminophen (TYLENOL) 500 mg Tablet Take 2 tablets by mouth every 6 hours as needed for Pain.30 tablet 1 ??? aspirin 81 mg Tablet, Chewable Take 81 mg by mouth daily. 30 tablet 3 ??? multivitamin with minerals tablet 1 Tablet(s), PO, Once daily Medications were reviewed with patient. Objective Data: VS at home: BPs 110s/60s Labs: Lab Results Component Value Date WBC 6.8 09/26/2021 HGB 14.0 09/26/2021 HCT 40.4 09/26/2021 MCV 93.3 09/26/2021 PLATELET 264 09/26/2021 No results for input(s): NA, K, CL, CO2, BUN, CREATININE, GLUCOSE in the last 168 hours. Lab Results Component Value Date INR 3.6 (A) 12/30/2021 Lab Results Component Value Date CHLPL 236 03/21/2020 HDL 49 03/21/2020 CHOLHDL 4.8 03/21/2020 TRIG 197 03/21/2020 LDLCHOL 148 03/21/2020 LDLDIRECT 145 05/18/2017 TTE 03/19/2020: 1. The left ventricle is probably normal in size. There is normal global left ventricular systolic function with the quantitative left ventricular ejection fraction by biplane Daley's method of 63%. There are no left ventricular segmental wall motion abnormalities. 2. Right ventricular chamber size, wall thickness, and systolic function are within normal limits. The estimated pulmonary artery systolic pressure is 19 mmHg (assuming RA pressure 3 mm Hg). 3. A [employer] mechanical aortic valve prosthesis is present (27 mm, implanted 05/25/17). The mechanical aortic valve prosthesis appears well seated with normal function. The mean trans-valvular gradient across the aortic valve is 4 mmHg. There is a trace amount of prosthetic aortic valve regurgitation present. 4. There is no hemodynamically significant valvular disease present. 5. Compared to prior study 06/30/17, no significant changes have Occured. ?? Stress echo 03/21/2020: 1. REST: The ECG shows sinus rhythm with inferolateral TWI. Full study done 19 Mar 2020. The ??apical inferior wall segment is dyskinetic (loop 8) which was not appreciated on the prior study, possibly due to foreshortening of the ventricle. 2. STRESS: The patient achieved a level of 7 METs and 65% of predicated max HR. The patient did not express feelings of chest discomfort but did have severe dyspnea and lightheadedness. There were no significant ST segment changes. There were occasional PVCs. On echo, the inferior wall did not augment appropriately. 3. CONCLUSION: This is an abnormal stress echo with findings of an apical WMA and probable inferior ischemia. ?? CPET 06/28/2021: Conclusion: This was a maximal effort study based on a peak RER of >1.0 and peak heart rate of >85%. ??The patient demonstrated a/an normal exercise capacity based on peak VO2 of 16.1 ml/kg/min (86% predicted). ??There was a normal cardiovascular response based on a normal ventilatory threshold, normal augmentation in blood pressure, O2 pulse, and normal ventilatory efficiency (overall VE/VCO2 slope). H R augmentation was blunted perhaps due to beta montse effect. ??The electrocardiogram displayed nomyocardial ischemia and no arrhythmia. There were no pulmonary limitations based on normal baselinePFTs (FVC was just below 80% predicted), respiratory rate, breathing reserve and oxygen saturation during exercise. ?? DVT duplex 03/19/2020: Interpretation: RIGHT: ??No evidence of lower extremity deep venous thrombosis. LEFT: ??No evidence of lower extremity deep venous thrombosis.? CTA-PE 03/18/2020: IMPRESSION Allowing for cardiovascular pulsation artifact in the medial left lung adjacent to aortic arch and left ventricle, no pulmonary arterial filling defects seen. ?? CTA coronaries 07/02/20: IMPRESSION 1. ??Coronary calcium score of 0 , consistent with undetectable atherosclerotic plaque burden. 2. ??No demonstrable coronary artery plaque or stenosis. CAD-RADS 0. ?? Cath 05/20/2017: Hemodynamics: ?Right Heart Pressures ?Hemodynamics: ?Syst Diast ?EDP ?a ?v ?m ?RA ?10 ?5 ?4 ?RV 22 ?4 ?PA 16 ?4 ?10 ?PCW ?7 ?5 ?3 ?Hemodynamic Profile: ?Prof ile 1 ?CO ?4.55 ?CI ?2.57 ?TPR ?176 ?PVR ?123 ?Technique ?Estimated Danielle ?Left Heart Pressures ?Resting: ?Syst Diast ?EDP ?a ?v ?m ?Ao 99 ?31 ?Comments: ??In the lightly sedated, supine state, right and left sided ?filling pressures are low normal (mean RA 4 mmHg, wedge 3 ?mmHg). No pulmonary hypertension seen (mean PA 10 mmHg). ?Systemic pressure low normal (99/31 mmHg) with wide pulse ?pressure. Cardiac output by estimated Danielle normal (4.6 L/min). ?Together these findings suggest low normal filling pressures ?and preserved cardiac output. ?250ml NS bolus at 0926. AO opening 99/31 (55). RArt pressure ?87/22(45). ? Oximetry: ?Location ?%Sat ?Location ?%Sat ?Main Pulmonary Artery ??63.0 ?Peripheral Arterial ?90.0 ? Coronary Angiography: ?Dominance: Right ?Left Main ?The left main was normal, free of disease. ?Left Anterior Descending ?The left anterior descending (LAD) was normal, free of disease. ?Left Circumflex ?The left circumflex (LCX) was normal, free of disease. ?Right Coronary Artery ?The right coronary artery (RCA) was normal, free of disease.? Assessment: ?? #1 Dyspnea on exertion, probable deconditioning #2 Triple positive APLA #3 History of AVR Mrs. Dumont?a very pleasant 52??woman with history of SLE and triple positive??APLA with consequent stroke, status post mechanical AVR,??admission in March 2020 for pleuritic chest pain??and??shortness of breath, initially concerning for pulmonary embolism, which had??been ruled out, mildly abnormal stress test with??inferior wall motion??abnormality, although normal CTA coronaries who presents for follow-up. Work-up for FATIMA unremarkable, including recent CPET, and thus this is most likely deconditioning. Doing well with warfarin with target INR (2.5-3.5) and BP well controlled. Will have bridging for colonoscopy given triple positive APLA and history of AVR. Will get TTE prior to next visit. Plan: 1. Continue metoprolol succinate 50 mg daily, aspirin 81 mg daily, warfarin (INR goal 2.5-3.5). 2. Return to clinic in 1 year with TTE prior to visit. I spent a total of 15 minutes associated with this encounter including chart review, the patient encounter, and documentation, of which more than 50% was with direct patient contact. Gerardo Richter MD, MPH, RPVI, FACC, [facility] Cardiovascular Sugar MixerWeb Assistant[place] [address] documented in this encounter Plan of Treatment Upcoming Encounters Date Type Department Care Team (Late st Contact Info) Description 11/11/2023 3:00 AM EDT Anti-Coag Telephone Visit [facility] [place] [address] documented as of this encounter Visit Diagnoses Diagnosis S/P AVR Heart valve replaced by other means Anti-phospholipid antibody syndrome Primary hypercoagulable state Pulmonary embolism, unspecified chronicity, unspecified pulmonary embolism type, unspecified whether acute cor pulmonale present FATIMA (dyspnea on exertion) Other dyspnea and respiratory abnormality documented in this encounter Care Teams Economic Research Assistant Relationship Specialty Start Date End Date Briana Timmons, [place] [address] PCP - General Family Medicine 08/09/21 documented as of this encounter
--- OUTSIDE RECORDS SUMMARY | 2023-11-04 15:11 | XMS_ITS | Encounter Summary ---
[place] [address] Care Team Providers Care Supervisor Publications Name Role Phone Briana Timmons APRN Primary Care Provider [phone] Encounter Details Date Type Department Care Team (Late Contact Info) Description 11/05/2021 External Results [facility] Information Services [address] [place] [phone] Provider, His Benigno MD None Social History [...] Telephone Visit [facility] [place] [address] documented as of this encounter Procedures Procedure Name Priority Date/Time Associated Diagnosis Comments EXTERNAL INR RESULTS PANEL Routine 11/05/2021 documented in this encounter Results * (ABNORMAL) External INR Results Panel (11/05/2021) POCT INR 3.9(A) 0.9 - 1.1 HOME MONITOR Blood 11/05/2021 His [place] Provider POINT OF CARE RAYRAY WALLIS ORDERABLES HOME MONITOR documented in this encounter Visit Diagnoses Not on filedocumented in this encounter Care Teams Supervisor Publications Relationship Specialty Start Date End Date Briana Timmons, KNOCKOUT WORKER [facility] [facility] [address] PCP - General Family Medicine 08/09/21 documented as of this encounter
--- OUTSIDE RECORDS SUMMARY | 2023-11-04 15:11 | XMS_ITS | Encounter Summary ---
[place] [address] Care Team Providers Care Coating Mixer Name Role Phone Briana Timmons APRN Primary Care Provider [phone] Encounter Details Date Type Department Care Team (Latest Contact Info) Description 04/08/2022 3:00 AM EST Anti-Coag Telephone Visit [facility] [place] [phone] Shasta Delaney [facility] Antiphospholipid antibody syndrome; Aortic valve prosthesis present; [...] Progress Notes * Shasta Delaney RP - 04/08/2022 3:00 AM EST Images from the original note were not included. Anticoagulation Therapy Note Anticoagulation Summary As of 04/08/2022 INR goal: 2.5-3.5 TTR: 63.5 % (6 mo) INR used for dosin.7 (04/07/2022) Warfarin maintenance plan: 5 mg (5 mg x 1) every day; Starting 04/08/2022 Weekly warfarin total: 35 mg Plan last modified: Tucker Lane RN (03/03/2022) Next INR check: 04/14/2022 Priority: 1 Week Target end date: Indefinite Indications Antiphospholipid antibody----- use antiXa level to dose heparin. 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] Pulmonary embolism unspecified chronicity unspecified pulmonary embolism type unspecified whether acute cor pulmonale present [I26.99] Anticoagulation Episode Summary INR check location: Home Draw Preferred lab: [facility] Send INR reminders to: [facility] Comments: Home Monitor [phone] (M) Anticoagulation Care Providers Provider Role Specialty Phone number Gerardo Richter MD Responsible Cardiology [phone] Patient Assessment Warfarin Therapy Instructions April 2022 Details Sun Mon Tue Wed Yaritza Fri Sat 1 2 3 5 mg See details 4 5 mg 5 5 mg 6 5 mg 7 5 mg 8 5 mg 9 5 mg 10 11 12 13 14 15 16 17 18 19 20 21 22 23 24 25 26 27 28 29 30 31 Date Details 04/08 This INR check Date of next INR: 04/14/2022 How to take your warfarin dose To take: 5 mg Take 1 of the 5 mg tablets. Description 04/08/22: INR in range. Continue on current [...] Visit [facility] [place] [address] documented as of this encounter Visit Diagnoses Diagnosis Antiphospholipid antibody syndrome Primary hypercoagulable state Aortic valve prosthesis present Heart valve replaced by other means Pulmonary embolism, unspecified chronicity, unspecified pulmonary embolism type, unspecified whether acute cor pulmonale present documented in this encounter Care Teams Coating Mixer Relationship Specialty Start Date End Date Briana Timmons, SCRATCH POLISHER [address] [place] [address] PCP - General Family Medicine 08/09/21 documented as of this encounter
--- OUTSIDE RECORDS SUMMARY | 2023-11-04 15:11 | XMS_ITS | Encounter Summary ---
[place] [address] Care Team Providers Care Treasury Agent Name Role Phone Briana Timmons APRN Primary Care Provider [phone] Encounter Details Date Type Department Care Team (Late st Contact Info) Description 01/20/2022 External Results [facility] [place] [address] Estelle Clarke Social History Tobacco Use Types [...] Telephone Visit [facility] [place] [address] documented as of this encounter Procedures Procedure Name Priority Date/Time Associated Diagnosis Comments EXTERNAL INR RESULTS PANEL Routine 01/20/2022 2:52 PM EDT documented in this encounter Results * External INR Results Panel (01/20/2022 2:52 PM EDT) POCT INR 3.0 0.9 - 1.1 HOME MONITOR Blood 01/20/2022 2:52 PM EDT Historical Provider POINT OF CARE GERSON T ORDERABLES HOME MONITOR documented in this encounter Visit Diagnoses Not on filedocumented in this encounter Care Teams Treasury Agent Relationship Specialty Start Date End Date Briana Timmons, WOOD DIE MAKER [place] [place] [address] PCP - General Family Medicine 08/09/21 documented as of this encounter
--- OUTSIDE RECORDS SUMMARY | 2023-11-04 15:11 | XMS_ITS | Encounter Summary ---
[place] [address] Care Team Providers Care Design Manager Name Role Phone Briana Timmons APRN Primary Care Provider [phone] Encounter Details Date Type Department Care Team (Latest Contact Info) Description 11/26/2021 3:00 AM EDT Anti-Coag Telephone Visit [facility] Centralized [place] [phone] Kelli Hoffman, RN Antiphospholipid antibody syndrome; Aortic [...] Progress Notes * Kelli Hoffman, RN - 11/26/2021 3:00 AM EDT Images from the original note were not included. Anticoagulation Therapy Telephone Note: Anticoagulation Summary As of 11/26/2021 INR goal: 2.5-3.5 TTR: 40.2 % (6 mo) INR used for dosin.5 (11/26/2021) Warfarin maintenance plan: 5 mg (5 mg x 1) every Thu, Thu, Thu; 6 mg (5 mg x 1 and 1 mg x 1) all other days Weekly warfarin total: 39 mg Plan last modified: Kelli Hoffman RN (11/26/2021) Next INR check: 12/03/2021 Priority: 1 Week Target end date: Indefinite Indications Antiphospholipid antibody----- use antiXa level to dose heparin. 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] Pulmonary embolism unspecified chronicity unspecified pulmonary embolism type unspecified whether acute cor pulmonale present [I26.99] Anticoagulation Episode Summary INR check location: Home Draw [facility] Send INR reminders to: [facility] Comments: Home Monitor [phone] (M) Anticoagulation Care Providers Provider Role Specialty Phone number Gerardo Richter MD Responsible Cardiology [phone] Patient Assessment Service Type: INR Test Result [...] Bruising, Other complaints Warfarin Therapy Instructions November 2021 Details Sun Thuu Fri Sat 1 2 3 4 5 6 7 8 9 10 11 12 13 14 15 16 17 18 19 20 21 22 23 6 mg See details 24 5 mg 25 6 mg 26 5 mg 27 6 mg 28 6 mg 29 5 mg 30 6 mg 31 Date Details 11/26 This INR check Date of next INR: 12/03/2021 How to take your warfarin dose To take: 5 mg Take 1 of the 5 mg tablets. To take: 6 mg Take 1 of the 5 mg tablets and 1 of the 1 mg tablets. Description 11/26/21 INR 2.5 Have ordered her 1 mg tablets to be able to have more options to dose with Dose 6 mg on //Thu /Thu and 5 mg on Thu/Thu/Thu. Recheck on 12/03/21 11/18/21: INR in range. Continue on current dose of warfarin and retest INR again in 1 week. 11/11/21: INR above range. Decrease dose this [...] above range due to illness, I will haveCecilia resume current dose of warfarin and test INR on Thursday. documented in this encounter Plan of Treatment Upcoming Encounters Date Type Department Care Team (Late st Contact Info) Description 11/11/2023 3:00 AM EDT Anti-Coag Telephone Visit [facility] Centralized [place] [address] documented as of this encounter Visit Diagnoses Diagnosis Antiphospholipid antibody syndrome Primary hypercoagulable state Aortic valve prosthesis present Heart valve replaced by other means Pulmonary embolism, unspecified chronicity, unspecified pulmonary embolism type, unspecified whether acute cor pulmonale present documented in this encounter Care Teams Design Manager Relationship Specialty Start Date End Date Briana Timmons, ACCOUNTING TUTOR [address] [facility] [place] [address] PCP - General Family Medicine 08/09/21 documented as of this encounter
--- OUTSIDE RECORDS SUMMARY | 2023-11-04 15:11 | XMS_ITS | Encounter Summary ---
[place] [address] Care Team Providers Care R&D Engineer Name Role Phone Briana Timmons APRN Primary Care Provider [phone] Encounter Details Date Type Department Care Team (Late st Contact Info) Description 11/11/2021 External Results [facility] [place] [address] Estelle Clarke Social History Tobacco Use Types [...] Telephone Visit [facility] [place] [address] documented as of this encounter Procedures Procedure Name Priority Date/Time Associated Diagnosis Comments EXTERNAL INR RESULTS PANEL Routine 11/11/2021 2:43 PM EDT documented in this encounter Results * (ABNORMAL) External INR Results Panel (11/11/2021 2:43 PM EDT) POCT INR 4.4(A) 0.9 - 1.1 HOME MONITOR Blood 11/11/2021 2:43 PM EDT Historical Provider POINT OF CARE GERSON T ORDERABLES HOME MONITOR documented in this encounter Visit Diagnoses Not on filedocumented in this encounter Care Teams R&D Engineer Relationship Specialty Start Date End Date Briana Timmons, FRAME CARVER [place] [address] PCP - General Family Medicine 08/09/21 documented as of this encounter
--- OUTSIDE RECORDS SUMMARY | 2023-11-04 15:11 | XMS_ITS | Encounter Summary ---
[place] [address] Care Team Providers Care Sugar Cane Planter Machine Operator Name Role Phone Briana Timmons APRN Primary Care Provider [phone] Encounter Details Date Type Department Care Team (Latest Contact Info) Description 12/17/2021 3:00 AM EDT Anti-Coag Telephone Visit [facility] [place] [phone], PAIGE Antiphospholipid antibody syndrome; Aortic [...] Progress Notes * Tucker Lane RN - 12/17/2021 3:00 AM EDT Images from the original note were not included. Anticoagulation Therapy Note Anticoagulation Summary As of 12/17/2021 INR goal: 2.5-3.5 TTR: 46.9 % (6 mo) INR used for dosin.4 (12/16/2021) Warfarin maintenance plan: 5 mg (5 mg x 1) every Mon, Fri; 6 mg (5 mg x 1 and 1 mg x 1) all other days Weekly warfarin total: 40 mg No change documented: Tucker Lane RN Plan last modified: Shasta Delaney [facility] (12/10/2021) Next INR check: 12/23/2021 Priority: 1 Week Target end date: Indefinite Indications Antiphospholipid antibody----- use antiXa level to dose heparin. 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] Pulmonary embolism unspecified chronicity unspecified pulmonary embolism type unspecified whether acute cor pulmonale present [I26.99] Anticoagulation Episode Summary INR check location: Home Draw Preferred lab: [facility] Send INR reminders to: [facility] Comments: Home Monitor [phone] (M) Anticoagulation Care Providers Provider Role Specialty Phone number Gerardo Richter MD Responsible Cardiology [phone] Patient Assessment Service Type: INR Test Result [...] Bruising, Other complaints Warfarin Therapy Instructions December 2021 Details Sun Mon Tue Wed Yaritza Fri Sat 1 2 3 4 5 6 7 8 9 10 11 12 13 6 mg See details 14 6 mg 15 6 mg 16 5 mg 17 6 mg 18 6 mg 19 5 mg 20 21 22 23 24 25 26 27 28 29 30 Date Details 12/17 This INR check Date of next INR: 12/23/2021 How to take your warfarin dose To take: 5 mg Take 1 of the 5 mg tablets. To take: 6 mg Take 1 of the 5 mg tablets and 1 of the 1 mg tablets. Description 12/17 INR in range yesterday, spoke with Cecilia, denies any changes, maintain current dose, retest 1 week. 12/10/21: INR slightly below range. Increase dose 2.5% and test INR in 1 week. 12/02/21: INR in range. Continue on current dose of warfarin and retest INR again in 1 week. Test onThursday and [facility] call back on Thursday. Counseled on colors of 1mg tabs and 5mg tabs. Cecilia fills herpill box weekly on Mondays. 11/26/21 INR 2.5 Have ordered her 1 [...] appetite changes. Totaling 11% reduction this week. documented in this encounter Plan of Treatment Upcoming Encounters Date Type Department Care Team (Late st Contact Info) Description 11/11/2023 3:00 AM EDT Anti-Coag Telephone Visit [facility] [place] [address] documented as of this encounter Visit Diagnoses Diagnosis Antiphospholipid antibody syndrome Primary hypercoagulable state Aortic valve prosthesis present Heart valve replaced by other means Pulmonary embolism, unspecified chronicity, unspecified pulmonary embolism type, unspecified whether acute cor pulmonale present documented in this encounter Care Teams Sugar Cane Planter Machine Operator Relationship Specialty Start Date End Date Briana Timmons, TAXONOMIST [address] [facility] [place] [address] PCP - General Family Medicine 08/09/21 documented as of this encounter
--- OUTSIDE RECORDS SUMMARY | 2023-11-04 15:11 | XMS_ITS | Encounter Summary ---
[place] [address] Care Team Providers Care Precision Aircraft Structure Assembler Name Role Phone Briana Timmons APRN Primary Care Provider [phone] Encounter Details Date Type Department Care Team (Late Contact Info) Description 11/26/[address] [facility] Information Services [address] [place] [phone] Provider, His Benigno MD None Social History [...] Upcoming Encounters Date Type Department Care Team ([facility] Contact Info) Description 11/11/2023 3:00 AM EDT Anti-Coag Telephone Visit [facility] Centralized [place] [address] documented as of this encounter Procedures Procedure Name Priority Date/Time Associated Diagnosis Comments EXTERNAL INR RESULTS PANEL Routine 11/26/2021 10:10 AM EDT documented in this encounter Results * (ABNORMAL) External INR Results Panel (11/26/2021 10:10 AM EDT) POCT INR 2.5(A) 0.9 - 1.1 HOME MONITOR Blood 11/26/2021 10:1 0 AM EDT His Downey Provider POINT OF CARE TE ST ORDERABLES HOME MONITOR documented in this encounter Visit Diagnoses Not on filedocumented in this encounter Care Teams Precision Aircraft Structure Assembler Relationship Specialty Start Date End Date Briana Timmons, [place] [address] PCP - General Family Medicine 08/09/21 documented as of this encounter
--- OUTSIDE RECORDS SUMMARY | 2023-11-04 15:11 | XMS_ITS | Encounter Summary ---
[place] [address] Care Team Providers Care Steel Pourer Name Role Phone Briana Timmons APRN Primary Care Provider [phone] Encounter Details Date Type Department Care Team (Latest Contact Info) Description 02/25/2022 3:00 AM EST Anti-Coag Telephone Visit [facility] [place] [phone] Shasta Delaney [facility] Antiphospholipid antibody syndrome; Aortic valve prosthesis [...] Progress Notes * Shasta Delaney RP - 02/25/2022 3:00 AM EST Images from the original note were not included. Anticoagulation Therapy Note Anticoagulation Summary As of 02/25/2022 INR goal: 2.5-3.5 TTR: 61.9 % (6 mo) INR used for dosin.1 (02/25/2022) Warfarin maintenance plan: 6 mg (5 mg x 1 and 1 mg x 1) every Thu, Yaritza; 5 mg (5 mg x 1) all other days; Starting 02/25/2022 Weekly warfarin total: 37 mg Plan last modified: Tucker Lane RN (02/10/2022) Next INR check: 03/03/2022 Priority: 1 Week Target end date: Indefinite Indications Antiphospholipid antibody----- use antiXa level to dose heparin. 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] Pulmonary embolism unspecified chronicity unspecified pulmonary embolism type unspecified whether acute cor pulmonale present [I26.99] Anticoagulation Episode Summary INR check location: Home Draw [facility] Send INR reminders to: [facility] Comments: Home Monitor [phone] (M) Anticoagulation Care Providers Provider Role Specialty Phone number Gerardo Richter MD Responsible Cardiology [phone] Patient Assessment Service Type: INR Test Result [...] Bruising, Other complaints Warfarin Therapy Instructions February 2022 Details Sun Mon Thu Wed Yaritza Fri Sat 1 2 3 4 5 6 7 8 9 10 11 12 13 14 15 16 17 18 19 20 21 22 5 mg See details 23 5 mg 24 6 mg 25 5 mg 26 5 mg 27 6 mg 28 5 mg 29 30 Date Details 02/25 This INR check Date of next INR: 03/03/2022 How to take your warfarin dose To take: 5 mg Take 1 of the 5 mg tablets. To take: 6 mg Take 1 of the 5 mg tablets and 1 of the 1 mg tablets. Description 02/25/22: INR in range. Continue on current [...] week. Cecilia's phone was not accepting calls, [employer] message sent 02/04/22 with dose plan. 01/27/22: INR in range. Continue on current dose of warfarin and retest INR again in 1 week. Has been taking Tylenol for a headache. Agreed to call [facility] if anything changes over the next [...] range yesterday, unable to reach by phone, [employer] message sent, maintain current dose, retest 2 weeks. 12/17 INR in range yesterday, spoke with Cecilia, denies any changes, maintain current dose, retest 1 week. 12/10/21: INR slightly below range. Increase dose 2.5% and test INR in 1 week. 12/02/21: INR in range. Continue on current dose of warfarin and retest INR again in 1 week. Test onThursday and [facility] call back on Thursday. Counseled on colors of 1mg tabs and 5mg tabs. Cecilia fills herpill box weekly on Mondays. documented in this encounter Plan of Treatment Upcoming Encounters Date Type Department Care Team (Late st Contact Info) Description 11/11/2023 3:00 AM EDT Anti-Coag Telephone Visit [facility] [place] [address] documented as of this encounter Visit Diagnoses Diagnosis Antiphospholipid antibody syndrome Primary hypercoagulable state Aortic valve prosthesis present Heart valve replaced by other means Pulmonary embolism, unspecified chronicity, unspecified pulmonary embolism type, unspecified whether acute cor pulmonale present documented in this encounter Care Teams Steel Pourer Relationship Specialty Start Date End Date Briana Timmons, INSTRUCTOR [place] [address] PCP - General Family Medicine 08/09/21 documented as of this encounter
--- OUTSIDE RECORDS SUMMARY | 2023-11-04 15:11 | XMS_ITS | Encounter Summary ---
[place] [address] Care Team Providers Care Pulp Maker Name Role Phone Briana Timmons APRN Primary Care Provider [phone] Encounter Details Date Type Department Care Team (Latest Contact Info) Description 03/10/2022 3:00 AM EST Anti-Coag Telephone Visit [facility] Centralized [place] [phone] Shasta Delaney [facility] Antiphospholipid [...] Progress Notes * Shasta Delaney RP - 03/10/2022 3:00 AM EST Images from the original note were not included. Anticoagulation Therapy Note Anticoagulation Summary As of 03/10/2022 INR goal: 2.5-3.5 TTR: 59.5 % (6 mo) INR used for dosin.1 (03/10/2022) Warfarin maintenance plan: 5 mg (5 mg x 1) every day; Starting 03/10/2022 Weekly warfarin total: 35 mg Plan last modified: Tucker Lane RN (03/03/2022) Next INR check: 03/17/2022 Priority: 1 Week Target end date: Indefinite Indications Antiphospholipid antibody----- use antiXa level to dose heparin. 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] Pulmonary embolism unspecified chronicity unspecified pulmonary embolism type unspecified whether acute cor pulmonale present [I26.99] Anticoagulation Episode Summary INR check location: Home Draw Preferred lab: [facility] Send INR reminders to: [facility] Comments: Home Monitor [phone] (M) Anticoagulation Care Providers Provider Role Specialty Phone number Gerardo Richter MD Responsible Cardiology [phone] Patient Assessment Service Type: INR Test Result INR Result: Out of Range Clinical Outcomes Negatives: Major bleeding event, Thromboembolic event, Anticoagulation-related hospital admission, Anticoagulation-related ED visit Patient Findings Positives: Change in health (Cold sxs and fever), Change in activity (decreased), Change in diet/appetite (decreased) Negatives: Upcoming Travel, Planning or Currently , Recent Fall, Signs/symptoms of thrombosis, Signs/symptoms of bleeding, Laboratory test error suspected, Change in alcohol use, Upcoming invasive procedure, Emergency department visit, Upcoming dental procedure, Missed doses, Extra doses, Change in medications, Hospital admission, Bruising, Other complaints Warfarin Therapy Instructions March 2022 Details Sun Mon Thu Wed Yaritza Fri Sat 1 2 3 4 5 2 mg See details 6 5 mg 7 5 mg 8 5 mg 9 5 mg 10 5 mg 11 5 mg 12 5 mg 13 14 15 16 17 18 19 20 21 22 23 24 25 26 27 28 29 30 31 Date Details 03/10 This INR check Date of next INR: 03/17/2022 How to take your warfarin dose To take: 2 mg Take 2 of the 1 mg tablets. To take: 5 mg Take 1 of the 5 mg tablets. Description 03/10/22: INR remains elevated. Cecilia has cold [...] week. Cecilia's phone was not accepting calls, [employer] message sent 02/04/22 with dose plan. 01/27/22: [...] range yesterday, unable to reach by phone, [facility] message sent, maintain current dose, retest 2 weeks. 12/17 INR in range yesterday, spoke with Cecilia, denies any changes, maintain current dose, retest 1 week. documented in this encounter Plan of Treatment Upcoming Encounters Date Type Department Care Team (Late st Contact Info) Description 11/11/2023 3:00 AM EDT Anti-Coag Telephone Visit [facility] Centralized [place] [address] documented as of this encounter Visit Diagnoses Diagnosis Antiphospholipid antibody syndrome Primary hypercoagulable state Aortic valve prosthesis present Heart valve replaced by other means Pulmonary embolism, unspecified chronicity, unspecified pulmonary embolism type, unspecified whether acute cor pulmonale present documented in this encounter Care Teams Pulp Maker Relationship Specialty Start Date End Date Briana Timmons, RADIO STATION ENGINEER [address] [address] PCP - General Family Medicine 08/09/21 documented as of this encounter
--- OUTSIDE RECORDS SUMMARY | 2023-11-04 15:11 | XMS_ITS | Encounter Summary ---
[place] [address] Care Team Providers Care Faucets Assembler Name Role Phone Briana Timmons APRN Primary Care Provider [phone] Encounter Details Date Type Department Care Team (Latest Contact Info) Description 03/17/2022 3:00 AM EST Anti-Coag Telephone Visit [facility] Centralized [place] [phone], RN Antiphospholipid antibody syndrome; Aortic [...] Progress Notes * Tucker Lane RN - 03/17/2022 3:00 AM EST Images from the original note were not included. Anticoagulation Therapy Note Anticoagulation Summary As of 03/17/2022 INR goal: 2.5-3.5 TTR: 60.5 % (6 mo) INR used for dosin.1 (03/17/2022) Warfarin maintenance plan: 5 mg (5 mg x 1) every day; Starting 03/17/2022 Weekly warfarin total: 35 mg No change documented: Tucker Lane RN Plan last modified: Tucker Lane RN (03/03/2022) Next INR check: 03/24/2022 Priority: 1 Week Target end date: Indefinite Indications Antiphospholipid antibody----- use antiXa level to dose heparin. 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] Pulmonary embolism unspecified chronicity unspecified pulmonary embolism type unspecified whether acute cor pulmonale present [I26.99] Anticoagulation Episode Summary INR check location: Home Draw Preferred lab: [facility] Send INR reminders to: [facility] Comments: Home Monitor [phone] (M) Anticoagulation Care Providers Provider Role Specialty Phone number Gerardo Richter MD Responsible Cardiology [phone] Patient Assessment Service Type: INR Test Result INR Result: In Range Warfarin Therapy Instructions March 2022 Details Sun Mon e Wed Yaritza Fri Sat 1 2 3 4 5 6 7 8 9 10 11 12 5 mg See details 13 5 mg 14 5 mg 15 5 mg 16 5 mg 17 5 mg 18 5 mg 19 5 mg 20 21 22 23 24 25 26 27 28 29 30 31 Date Details 03/17 This INR check Date of next INR: 03/24/2022 How to take your warfarin dose To take: 5 mg Take 1 of the 5 mg tablets. Description 03/17 INR in range today, left VM [...] week. Cecilia's phone was not accepting calls, [employer] message sent 02/04/22 with dose plan. 01/27/22: [...] range yesterday, unable to reach by phone, [employer] message sent, maintain current dose, retest 2 weeks. 12/17 INR in range yesterday, spoke with Cecilia, denies any changes, maintain current dose, retest 1 week. documented in this encounter Plan of Treatment Upcoming Encounters Date Type Department Care Team (Late st Contact Info) Description 11/11/2023 3:00 AM EDT Anti-Coag Telephone Visit [facility] [place] [address] documented as of this encounter Visit Diagnoses Diagnosis Antiphospholipid antibody syndrome Primary hypercoagulable state Aortic valve prosthesis present Heart valve replaced by other means Pulmonary embolism, unspecified chronicity, unspecified pulmonary embolism type, unspecified whether acute cor pulmonale present documented in this encounter Care Teams Faucets Assembler Relationship Specialty Start Date End Date Briana Timmons, COLLECTIONS CLERK [address] [place] [address] PCP - General Family Medicine 08/09/21 documented as of this encounter
--- OUTSIDE RECORDS SUMMARY | 2023-11-04 15:11 | XMS_ITS | Encounter Summary ---
[place] [address] Care Team Providers Care Zipper Slide Attacher Name Role Phone Briana Timmons APRN Primary Care Provider [phone] Encounter Details Date Type Department Care Team (Latest Contact Info) Description 12/24/2021 3:00 AM EDT Anti-Coag Telephone Visit [facility] [place] [phone], PAIGE Antiphospholipid antibody syndrome; Aortic [...] Progress Notes * Tucker Lane RN - 12/24/2021 3:00 AM EDT Images from the original note were not included. Anticoagulation Therapy Note Anticoagulation Summary As of 12/24/2021 INR goal: 2.5-3.5 TTR: 50.8 % (6 mo) INR used for dosin.9 (12/23/2021) Warfarin maintenance plan: 5 mg (5 mg x 1) every Mon, Fri; 6 mg (5 mg x 1 and 1 mg x 1) all other days Weekly warfarin total: 40 mg No change documented: Tucker Lane RN Plan last modified: Shasta Delaney [facility] (12/10/2021) Next INR check: 01/06/2022 Priority: 2 Weeks Target end date: Indefinite Indications Antiphospholipid antibody----- use antiXa level to dose heparin. 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] Pulmonary embolism unspecified chronicity unspecified pulmonary embolism type unspecified whether acute cor pulmonale present [I26.99] Anticoagulation Episode Summary INR check location: Home Draw Preferred lab: [facility] Send INR reminders to: [facility] Comments: Home Monitor [phone] (M) Anticoagulation Care Providers Provider Role Specialty Phone number Gerardo Richter MD Responsible Cardiology [phone] Patient Assessment Service Type: INR Test Result INR Result: In Range Warfarin Therapy Instructions December 2021 Details Thu Fri Sat 1 2 3 4 5 6 7 8 9 10 11 12 13 14 15 16 17 18 19 20 6 mg See details 21 6 mg 22 6 mg 23 5 mg 24 6 mg 25 6 mg 26 5 mg 27 6 mg 28 6 mg 29 6 mg 30 5 mg Date Details 12/24 This INR check How to take your warfarin dose To take: 5 mg Take 1 of the 5 mg tablets. To take: 6 mg Take 1 of the 5 mg tablets and 1 of the 1 mg tablets. Warfarin Therapy Instructions January 2022 Details Thu Fri Sat 1 6 mg 2 6 mg 3 5 mg 4 5 6 7 8 9 10 11 12 13 14 15 16 17 18 19 20 21 22 23 24 25 26 27 28 29 30 31 Date Details No additional details Date of next INR: 01/06/2022 How to take your warfarin dose To take: 5 mg Take 1 of the 5 mg tablets. To take: 6 mg Take 1 of the 5 mg tablets and 1 of the 1 mg tablets. Description 12/24 INR in range yesterday, unable to reach by phone, [facility] message sent, maintain current dose, retest 2 weeks. 12/17 INR in range yesterday, spoke with Cecilia, denies any changes, maintain current dose, retest 1 week. 12/10/21: INR slightly below range. Increase dose 2.5% and test INR in 1 week. 12/02/21: INR in range. Continue on current dose of warfarin and retest INR again in 1 week. Test onThursday and [facility] call back on Thursday. Counseled on colors [...] Telephone Visit [facility] [place] [address] documented as of this encounter Visit Diagnoses Diagnosis Antiphospholipid antibody syndrome Primary hypercoagulable state Aortic valve prosthesis present Heart valve replaced by other means Pulmonary embolism, unspecified chronicity, unspecified pulmonary embolism type, unspecified whether acute cor pulmonale present documented in this encounter Care Teams Zipper Slide Attacher Relationship Specialty Start Date End Date Briana Timmons, BULLET SWAGING MACHINE OPERATOR [place] [address] PCP - General Family Medicine 08/09/21 documented as of this encounter
--- OUTSIDE RECORDS SUMMARY | 2023-11-04 15:11 | XMS_ITS | Encounter Summary ---
[place] [address] Care Team Providers Care Sr. Consultant Name Role Phone Briana Timmons APRN Primary Care Provider [phone] Encounter Details Date Type Department Care Team (Latest Contact Info) Description 12/10/2021 3:00 AM EDT Anti-Coag Telephone Visit [facility] [place] [phone] Shasta Delaney, [facility] Antiphospholipid antibody syndrome; Aortic valve [...] this encounter Progress Notes * Shasta Delaney [facility] - 12/10/2021 3:00 AM EDT Images from the original note were not included. Anticoagulation Therapy Note Anticoagulation Summary As of 12/10/2021 INR goal: 2.5-3.5 TTR: 46.5 % (6 mo) INR used for dosin.4 (12/09/2021) Warfarin maintenance plan: 5 mg (5 mg x 1) every Mon, Fri; 6 mg (5 mg x 1 and 1 mg x 1) all other days Weekly warfarin total: 40 mg Plan last modified: Shasta Delaney [facility] (12/10/2021) Next INR check: 12/17/2021 Priority: 1 Week Target end date: Indefinite Indications Antiphospholipid antibody----- use antiXa level to dose heparin. 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] Pulmonary embolism unspecified chronicity unspecified pulmonary embolism type unspecified whether acute cor pulmonale present [I26.99] Anticoagulation Episode Summary INR check location: Home Draw Preferred lab: [facility] Send INR reminders to: [facility] Comments: Home Monitor [phone] (M) Anticoagulation Care Providers Provider Role Specialty Phone number Gerardo Richter MD Responsible Cardiology [phone] Patient Assessment Service Type: INR Test Result [...] Warfarin Therapy Instructions December 2021 Details Sun Thu Sat 1 2 3 4 5 6 6 mg See details 7 6 mg 8 6 mg 9 5 mg 10 6 mg 11 6 mg 12 5 mg 13 6 mg 14 15 16 17 18 19 20 21 22 23 24 25 26 27 28 29 30 Date Details 12/10 This INR check Date of next INR: 12/17/2021 How to take your warfarin dose To take: 5 mg Take 1 of the 5 mg tablets. To take: 6 mg Take 1 of the 5 mg tablets and 1 of the 1 mg tablets. Description 12/10/21: INR slightly below range. Increase dose 2.5% and test INR in 1 week. 12/02/21: INR in range. Continue on current dose of warfarin and retest INR again in 1 week. Test onThursday and [facility] call back on Thursday. Counseled on [...] illness and sxs of bruising or bleeding. nance dose as this is an increase over last week, recheck 1 week. documented in this encounter Plan of Treatment Upcoming Encounters Date Type Department Care Team (Late st Contact Info) Description 11/11/2023 3:00 AM EDT Anti-Coag Telephone Visit [facility] [place] [address] documented as of this encounter Visit Diagnoses Diagnosis Antiphospholipid antibody syndrome Primary hypercoagulable state Aortic valve prosthesis present Heart valve replaced by other means Pulmonary embolism, unspecified chronicity, unspecified pulmonary embolism type, unspecified whether acute cor pulmonale present documented in this encounter Care Teams Sr. Consultant Relationship Specialty Start Date End Date Briana Timmons, LINING STRAP CLOSER [place] [address] PCP - General Family Medicine 08/09/21 documented as of this encounter
--- OUTSIDE RECORDS SUMMARY | 2023-11-04 15:11 | XMS_ITS | Encounter Summary ---
[place] [address] Care Team Providers Care Allied Health Professional Name Role Phone Briana Timmons APRN Primary Care Provider [phone] Encounter Details Date Type Department Care Team (Late Contact Info) Description 02/17/2022 External Results [facility] Information Services [address] [place] [phone] Provider, His Benigno MD None Social History [...] Upcoming Encounters Date Type Department Care Team ([facility] Contact Info) Description 11/11/2023 3:00 AM EDT Anti-Coag Telephone Visit [facility] [place] [address] documented as of this encounter Procedures Procedure Name Priority Date/Time Associated Diagnosis Comments EXTERNAL INR RESULTS PANEL Routine 02/17/2022 10:46 AM EST documented in this encounter Results * (ABNORMAL) External INR Results Panel (02/17/2022 10:46 AM EST) POCT INR 2.6(A) 0.9 - 1.1 HOME MONITOR Blood 02/17/2022 10:4 6 AM EST His [place] Provider POINT OF CARE RAYRAY ORDERABLES HOME MONITOR documented in this encounter Visit Diagnoses Not on filedocumented in this encounter Care Teams Allied Health Professional Relationship Specialty Start Date End Date Briana Timmons, SUELLEN [place] [place] [address] PCP - General Family Medicine 08/09/21 documented as of this encounter
--- OUTSIDE RECORDS SUMMARY | 2023-11-04 15:11 | XMS_ITS | Encounter Summary ---
[place] [address] Care Team Providers Care Parts Room Associate Name Role Phone Briana Timmons APRN Primary Care Provider Encounter Details Date Type Department Care Team (Latest Contact Info) Description 03/24/2022 3:00 AM EST Anti-Coag Telephone Visit [facility] [place] [phone], RN Antiphospholipid antibody syndrome; Aortic [...] Progress Notes * Tucker Lane RN - 03/24/2022 3:00 AM EST Images from the original note were not included. Anticoagulation Therapy Note Anticoagulation Summary As of 03/24/2022 INR goal: 2.5-3.5 TTR: 62.7 % (6 mo) INR used for dosin.9 (03/24/2022) Warfarin maintenance plan: 5 mg (5 mg x 1) every day; Starting 03/24/2022 Weekly warfarin total: 35 mg No change documented: Tucker Lane RN Plan last modified: Tucker Lane RN (03/03/2022) Next INR check: 04/08/2022 Priority: 2 Weeks Target end date: Indefinite Indications Antiphospholipid antibody----- use antiXa level to dose heparin. 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] Pulmonary embolism unspecified chronicity unspecified pulmonary embolism type unspecified whether acute cor pulmonale present [I26.99] Anticoagulation Episode Summary INR check location: Home Draw Preferred lab: [email or web address] Send INR reminders to: [facility] Comments: Home Monitor [phone] (M) Anticoagulation Care Providers Provider Role Specialty Phone number Gerardo Richter MD Responsible Cardiology [phone] Patient Assessment Service Type: INR Test Result [...] complaints Warfarin Therapy Instructions March 2022 Details Thu Sat 1 2 3 4 5 6 7 8 9 10 11 12 13 14 15 16 17 18 19 5 mg See details 20 5 mg 21 5 mg 22 5 mg 23 5 mg 24 5 mg 25 5 mg 26 5 mg 27 5 mg 28 5 mg 29 5 mg 30 5 mg 31 5 mg Date Details 03/24 This INR check How to take your warfarin dose To take: 5 mg Take 1 of the 5 mg tablets. Warfarin Therapy Instructions April 2022 Details Thu Sat 1 5 mg 2 5 mg 3 5 mg 4 5 6 7 8 9 10 11 12 13 14 15 16 17 18 19 20 21 22 23 24 25 26 27 28 29 30 31 Date Details No additional details Date of next INR: 04/08/2022 How to take your warfarin dose To take: 5 mg Take 1 of the 5 mg tablets. Description 03/24 INR in range today, spoke with [...] week. Cecilia's phone was not accepting calls, myD-H message sent 02/04/22 with dose plan. 01/27/22: INR in range. Continue on current dose of warfarin and retest INR again in 1 week. Has been taking Tylenol for a headache. Agreed to call [facility] if anything changes over the next week [...] range yesterday, unable to reach by phone, HDmessaging[employer] message sent, maintain current dose, retest 2 weeks. 12/17 INR in range yesterday, spoke with Cecilia, denies any changes, maintain current dose, retest 1 week. documented in this encounter Plan of Treatment Upcoming Encounters Date Type Department Care Team (Late st Contact Info) Description 11/11/2023 3:00 AM EDT Anti-Coag Telephone Visit [facility] [place] [address] documented as of this encounter Visit Diagnoses Diagnosis Antiphospholipid antibody syndrome Primary hypercoagulable state Aortic valve prosthesis present Heart valve replaced by other means Pulmonary embolism, unspecified chronicity, unspecified pulmonary embolism type, unspecified whether acute cor pulmonale present documented in this encounter Care Teams Parts Room Associate Relationship Specialty Start Date End Date Briana Timmons, FREIGHT ELEVATOR OPERATOR [place] [place] [address] PCP - General Family Medicine 08/09/21 documented as of this encounter
--- OUTSIDE RECORDS SUMMARY | 2023-11-04 15:11 | XMS_ITS | Encounter Summary ---
[place] [address] Care Team Providers Care Personal Care Service Provider Name Role Phone Briana Timmons APRN Primary Care Provider [phone] Encounter Details Date Type Department Care Team (Latest Contact Info) Description 03/03/2022 3:00 AM EST Anti-Coag Telephone Visit [facility] [place] [phone], RN Antiphospholipid antibody syndrome; Aortic [...] Progress Notes * Tucker Lane RN - 03/03/2022 3:00 AM EST Images from the original note were not included. Anticoagulation Therapy Note Anticoagulation Summary As of 03/03/2022 INR goal: 2.5-3.5 TTR: 59.9 % (6 mo) INR used for dosin.2 (03/03/2022) Warfarin maintenance plan: 5 mg (5 mg x 1) every day; Starting 03/03/2022 Weekly warfarin total: 35 mg Plan last modified: Tucker Lane RN (03/03/2022) Next INR check: 03/10/2022 Priority: 1 Week Target end date: Indefinite Indications Antiphospholipid antibody----- use antiXa level to dose heparin. 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] Pulmonary embolism unspecified chronicity unspecified pulmonary embolism type unspecified whether acute cor pulmonale present [I26.99] Anticoagulation Episode Summary INR check location: Home Draw Preferred lab: [facility] Send INR reminders to: [facility] Comments: Home Monitor [phone] (M) Anticoagulation Care Providers Provider Role Specialty Phone number Gerardo Richter MD Responsible Cardiology [phone] Patient Assessment Service Type: INR Test Result [...] complaints Warfarin Therapy Instructions February 2022 Details Thu Sat 1 2 3 4 5 6 7 8 9 10 11 12 13 14 15 16 17 18 19 20 21 22 23 24 25 26 27 28 5 mg See details 29 5 mg 30 5 mg Date Details 03/03 This INR check How to take your warfarin dose To take: 5 mg Take 1 of the 5 mg tablets. Warfarin Therapy Instructions March 2022 Details Thu Sat 1 5 mg 2 5 mg 3 5 mg 4 5 mg 5 5 mg 6 7 8 9 10 11 12 13 14 15 16 17 18 19 20 21 22 23 24 25 26 27 28 29 30 31 Date Details No additional details Date of next INR: 03/10/2022 How to take your warfarin dose To take: 5 mg Take 1 of the 5 mg tablets. Description 03/03 INR elevated today, spoke with Cecilia, [...] week. Cecilia's phone was not accepting calls, [employer] message sent 02/04/22 with dose plan. 01/27/22: INR in range. Continue on current dose of warfarin and retest INR again in 1 week. Has been taking Tylenol for a headache. Agreed to call [facility] if anything changes over the [...] range yesterday, unable to reach by phone, [employer] message sent, maintain current dose, retest 2 weeks. 12/17 INR in range yesterday, spoke with Cecilia, denies any changes, maintain current dose, retest 1 week. 12/10/21: INR slightly below range. Increase dose 2.5% and test INR in 1 week. 12/02/21: INR in range. Continue on current dose of warfarin and retest INR again in 1 week. Test onThursday and [facility] call back on Thursday. Counseled on colors of 1mg tabs and 5mg tabs. Cecilia fills herpill box weekly on Mondays. documented in this encounter Plan of Treatment Upcoming Encounters Date Type Department Care Team (Late st Contact Info) Description 11/11/2023 3:00 AM EDT Anti-Coag Telephone Visit [facility] [place] [address] documented as of this encounter Visit Diagnoses Diagnosis Antiphospholipid antibody syndrome Primary hypercoagulable state Aortic valve prosthesis present Heart valve replaced by other means Pulmonary embolism, unspecified chronicity, unspecified pulmonary embolism type, unspecified whether acute cor pulmonale present documented in this encounter Care Teams Personal Care Service Provider Relationship Specialty Start Date End Date Briana Timmons, VARNISHER PLASTICOATER [address] [place] [address] PCP - General Family Medicine 08/09/21 documented as of this encounter
--- OUTSIDE RECORDS SUMMARY | 2023-11-04 15:11 | XMS_ITS | Encounter Summary ---
[place] [address] Care Team Providers Care Timber Treatment Plant Operator Name Role Phone Briana Timmons APRN Primary Care Provider [phone] Encounter Details Date Type Department Care Team (Latest Contact Info) Description 01/13/2022 3:00 AM EDT Anti-Coag Telephone Visit [facility] [place] [phone] [address] [facility] Antiphospholipid antibody syndrome; Aortic valve prosthesis present; [...] Progress Notes * Shasta Delaney [facility] - 01/13/2022 3:00 AM EDT Images from the original note were not included. Anticoagulation Therapy Note Anticoagulation Summary As of 01/13/2022 INR goal: 2.5-3.5 TTR: 59.9 % (6 mo) INR used for dosin.9 (01/13/2022) Warfarin maintenance plan: 5 mg (5 mg x 1) every Mon, Fri; 6 mg (5 mg x 1 and 1 mg x 1) all other days Weekly warfarin total: 40 mg Plan last modified: Shasta Delaney [facility] (12/10/2021) Next INR check: 01/20/2022 Priority: 1 Week Target end date: Indefinite Indications Antiphospholipid antibody----- use antiXa level to dose heparin. 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] Pulmonary embolism unspecified chronicity unspecified pulmonary embolism type unspecified whether acute cor pulmonale present [I26.99] Anticoagulation Episode Summary INR check location: Home Draw Preferred lab: [facility] Send INR reminders to: [facility] Comments: Home Monitor [phone] (M) Anticoagulation Care Providers Provider Role Specialty Phone number Gerardo Richter MD Responsible Cardiology [phone] Patient Assessment Service Type: INR Test Result [...] Bruising, Other complaints Warfarin Therapy Instructions January 2022 Details Sun Thu Fri Sat 1 2 3 4 5 6 7 8 9 10 5 mg See details 11 6 mg 12 6 mg 13 6 mg 14 5 mg 15 6 mg 16 6 mg 17 5 mg 18 19 20 21 22 23 24 25 26 27 28 29 30 31 Date Details 01/13 This INR check Date of next INR: 01/20/2022 How to take your warfarin dose To take: 5 mg Take 1 of the 5 mg tablets. To take: 6 mg Take 1 of the 5 mg tablets and 1 of the 1 mg tablets. Description 01/13/22: INR in range. Continue on current dose of warfarin and retest INR again in 1 week. 01/06/22: INR in range. Continue on current dose of warfarin and retest INR again in 1 week. 12/24 INR in range yesterday, unable to reach by phone, [facility] message sent, maintain current dose, retest 2 weeks. 12/17 INR in range yesterday, spoke with Cecilia, denies any changes, maintain current dose, retest 1 week. 12/10/21: INR slightly below range. Increase dose 2.5% and test INR in 1 week. 12/02/21: INR in range. Continue on current dose of warfarin and retest INR again in 1 week. Test onThursday and [facility] call back on Thursday. Counseled on [...] Telephone Visit [facility] [place] [address] documented as of this encounter Visit Diagnoses Diagnosis Antiphospholipid antibody syndrome Primary hypercoagulable state Aortic valve prosthesis present Heart valve replaced by other means Pulmonary embolism, unspecified chronicity, unspecified pulmonary embolism type, unspecified whether acute cor pulmonale present documented in this encounter Care Teams Timber Treatment Plant Operator Relationship Specialty Start Date End Date Briana Timmons, ASSISTANT SITE [place] [address] PCP - General Family Medicine 08/09/21 documented as of this encounter
--- OUTSIDE RECORDS SUMMARY | 2023-11-04 15:11 | XMS_ITS | Encounter Summary ---
[place] [address] Care Team Providers Care Secretary Bookkeeper Name Role Phone Briana Timmons APRN Primary Care Provider Encounter Details Date Type Department Care Team (Latest Contact Info) Description 01/27/2022 3:00 AM EDT Anti-Coag Telephone Visit [facility] [place] [phone] [address] [facility] Antiphospholipid antibody syndrome; [...] Notes * Shasta Delaney [facility] - 01/27/2022 3:00 AM EDT Images from the original note were not included. Anticoagulation Therapy Note Anticoagulation Summary As of 01/27/2022 INR goal: 2.5-3.5 TTR: 64.2 % (6 mo) INR used for dosin.6 (01/27/2022) Warfarin maintenance plan: 5 mg (5 mg x 1) every Mon, Fri; 6 mg (5 mg x 1 and 1 mg x 1) all other days Weekly warfarin total: 40 mg Plan last modified: Shasta Delaney [facility] (12/10/2021) Next INR check: 02/03/2022 Priority: 1 Week Target end date: Indefinite Indications Antiphospholipid antibody----- use antiXa level to dose heparin. 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] Pulmonary embolism unspecified chronicity unspecified pulmonary embolism type unspecified whether acute cor pulmonale present [I26.99] Anticoagulation Episode Summary INR check location: Home Draw Preferred lab: [facility] Send INR reminders to: [facility] Comments: Home Monitor [phone] (M) Anticoagulation Care Providers Provider Role Specialty Phone number Gerardo Richter MD Responsible Cardiology [phone] Patient Assessment Service Type: INR Test Result INR Result: Out of Range Clinical Outcomes Negatives: Major bleeding event, Thromboembolic event, Anticoagulation-related hospital admission, Anticoagulation-related ED visit Patient Findings Positives: Change in medications (Tylenol for headache) Negatives: Upcoming Travel, Planning or Currently , Recent Fall, Signs/symptoms of thrombosis, Signs/symptoms of bleeding, Laboratory test error suspected, Change in health, Change in alcoholuse, Change in activity, Upcoming invasive procedure, Emergency department visit, Upcoming dental procedure, Missed doses, Extra doses, Change in diet/appetite, Hospital admission, Bruising, Other complaints Warfarin Therapy Instructions January 2022 Details Sun Thu Wed Yaritza Fri Sat 1 2 3 4 5 6 7 8 9 10 11 12 13 14 15 16 17 18 19 20 21 22 23 24 5 mg See details 25 6 mg 26 6 mg 27 6 mg 28 5 mg 29 6 mg 30 6 mg 31 5 mg Date Details 01/27 This INR check Date of next INR: 02/03/2022 How to take your warfarin dose To take: 5 mg Take 1 of the 5 mg tablets. To take: 6 mg Take 1 of the 5 mg tablets and 1 of the 1 mg tablets. Description 01/27/22: INR in range. Continue on current dose of warfarin and retest INR again in 1 week. Has been taking Tylenol for a headache. Agreed to call [facility]] if anything changes over the next week [...] range yesterday, unable to reach by phone, [employer] message sent, maintain current dose, retest 2 weeks. 12/17 INR in range yesterday, spoke with Cecilia, denies any changes, maintain current dose, retest 1 week. 12/10/21: INR slightly below range. Increase dose 2.5% and test INR in 1 week. 12/02/21: INR in range. Continue on current dose of warfarin and retest INR again in 1 week. Test onThursday and [facility]] call back on Thursday. Counseled on colors [...] Telephone Visit [facility] [place] [address] documented as of this encounter Visit Diagnoses Diagnosis Antiphospholipid antibody syndrome Primary hypercoagulable state Aortic valve prosthesis present Heart valve replaced by other means Pulmonary embolism, unspecified chronicity, unspecified pulmonary embolism type, unspecified whether acute cor pulmonale present documented in this encounter Care Teams Secretary Bookkeeper Relationship Specialty Start Date End Date Briana Timmons, DIRECTOR OF ARCHIVES [facility] [address] [place] [facility] [address] PCP - General Family Medicine 08/09/21 documented as of this encounter
--- OUTSIDE RECORDS SUMMARY | 2023-11-04 15:11 | XMS_ITS | Encounter Summary ---
[place] [address] Care Team Providers Care Stained Glass Painter Name Role Phone Briana Timmons APRN Primary Care Provider [phone] Encounter Details Date Type Department Care Team (Late Contact Info) Description 03/10/2022 External Results [facility] Information Services [address] [place] [phone] Provider, His Benigno MD None Social History [...] Upcoming Encounters Date Type Department Care Team ([facility] Contact Info) Description 11/11/2023 3:00 AM EDT Anti-Coag Telephone Visit [facility] [place] [address] documented as of this encounter Procedures Procedure Name Priority Date/Time Associated Diagnosis Comments EXTERNAL INR RESULTS PANEL Routine 03/10/2022 documented in this encounter Results * (ABNORMAL) External INR Results Panel (03/10/2022) POCT INR 4.1(A) 0.9 - 1.1 HOME MONITOR Blood 03/10/2022 His [place] Provider POINT OF CARE RAYRAY [address]ALL[address] ORDERABLES HOME MONITOR documented in this encounter Visit Diagnoses Not on filedocumented in this encounter Care Teams Stained Glass Painter Relationship Specialty Start Date End Date Briana Timmons, PLATE ROLLER [address] [place] [address] PCP - General Family Medicine 08/09/21 documented as of this encounter
--- OUTSIDE RECORDS SUMMARY | 2023-11-04 15:11 | XMS_ITS | Encounter Summary ---
[place] [address] Care Team Providers Care Nursery Helper Name Role Phone Briana Timmons APRN Primary Care Provider [phone] Encounter Details Date Type Department Care Team (Late Contact Info) Description 12/02/2021 External Results [facility] Information Services [address] [place] [phone] Provider, His Benigno MD None Social History [...] Upcoming Encounters Date Type Department Care Team ([facility] Contact Info) Description 11/11/2023 3:00 AM EDT Anti-Coag Telephone Visit [facility] [place] [address] documented as of this encounter Procedures Procedure Name Priority Date/Time Associated Diagnosis Comments EXTERNAL INR RESULTS PANEL Routine 12/02/2021 10:59 AM EDT documented in this encounter Results * (ABNORMAL) External INR Results Panel (12/02/2021 10:59 AM EDT) POCT INR 2.7(A) 0.9 - 1.1 HOME MONITOR Blood 12/02/2021 10:5 9 AM EDT His [place] Provider POINT OF CARE TE ST ORDERABLES HOME MONITOR documented in this encounter Visit Diagnoses Not on filedocumented in this encounter Care Teams Nursery Helper Relationship Specialty Start Date End Date Briana Timmons, CLAIMS ADMINISTRATOR [place] [address] PCP - General Family Medicine 08/09/21 documented as of this encounter
--- OUTSIDE RECORDS SUMMARY | 2023-11-04 15:11 | XMS_ITS | Encounter Summary ---
[place] [address] Care Team Providers Care Case Therapist Name Role Phone Briana Timmons APRN Primary Care Provider [phone] Encounter Details Date Type Department Care Team (Latest Contact Info) Description 04/01/2022 3:00 AM EST Anti-Coag Telephone Visit [facility] [place] [phone] Fili Pickett, [facility] Antiphospholipid antibody syndrome; Aortic valve [...] this encounter Progress Notes * Fili Pickett [facility] - 04/01/2022 3:00 AM EST Images from the original note were not included. Anticoagulation Therapy Note Anticoagulation Summary As of 04/01/2022 INR goal: 2.5-3.5 TTR: 62.0 % (6 mo) INR used for dosin.3 (04/01/2022) Warfarin maintenance plan: 5 mg (5 mg x 1) every day; Starting 04/01/2022 Weekly warfarin total: 35 mg Plan last modified: Tucker Lane RN (03/03/2022) Next INR check: 04/08/2022 Priority: 1 Week Target end date: Indefinite Indications Antiphospholipid antibody----- use antiXa level to dose heparin. 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] Pulmonary embolism unspecified chronicity unspecified pulmonary embolism type unspecified whether acute cor pulmonale present [I26.99] Anticoagulation Episode Summary INR check location: Home Draw Preferred lab: [facility] Send INR reminders to: [facility] Comments: Home Monitor [phone] (M) Anticoagulation Care Providers Provider Role Specialty Phone number Gerardo Richter MD Responsible Cardiology [phone] Patient Assessment Service Type: INR Test Result [...] 21 22 23 24 25 26 27 5 mg See details 28 5 mg 29 [...] 1 of the 5 mg tablets. Description 04/01 INR slightly below range. Given recent [...] Visit [facility] [place] [address] documented as of this encounter Visit Diagnoses Diagnosis Antiphospholipid antibody syndrome Primary hypercoagulable state Aortic valve prosthesis present Heart valve replaced by other means Pulmonary embolism, unspecified chronicity, unspecified pulmonary embolism type, unspecified whether acute cor pulmonale present documented in this encounter Care Teams Case Therapist Relationship Specialty Start Date End Date Briana Timmons APRN Aniya [address] [facility] [place] [address] PCP - General Family Medicine 08/09/21 documented as of this encounter
--- OUTSIDE RECORDS SUMMARY | 2023-11-04 15:11 | XMS_ITS | Encounter Summary ---
[place] [address] Care Team Providers Care Sports Medicine Specialist Name Role Phone Briana Timmons APRN Primary Care Provider [phone] Encounter Details Date Type Department Care Team (Latest Contact Info) Description 12/02/2021 3:00 AM EDT Anti-Coag Telephone Visit [facility] [place] [id number] Shasta Delaney, [facility] Antiphospholipid antibody syndrome; Aortic valve prosthesis present; [...] Notes * Shasta Delaney [facility] - 12/02/2021 3:00 AM EDT Images from the original note were not included. Anticoagulation Therapy Note Anticoagulation Summary As of 12/02/2021 INR goal: 2.5-3.5 TTR: 43.6 % (6 mo) INR used for dosin.7 (12/02/2021) Warfarin maintenance plan: 5 mg (5 mg x 1) every Thu, Thu, Thu; 6 mg (5 mg x 1 and 1 mg x 1) all other days Weekly warfarin total: 39 mg Plan last modified: Kelli Hoffman RN (11/26/2021) Next INR check: 12/10/2021 Priority: 1 Week Target end date: Indefinite Indications Antiphospholipid antibody----- use antiXa level to dose heparin. 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] Pulmonary embolism unspecified chronicity unspecified pulmonary embolism type unspecified whether acute cor pulmonale present [I26.99] Anticoagulation Episode Summary INR check location: Home Draw Preferred lab: [facility] Send INR reminders to: [facility] Comments: Home Monitor [phone] (M) Anticoagulation Care Providers Provider Role Specialty Phone number Gerardo Richter MD Responsible Cardiology [phone] Patient Assessment Service Type: INR Test Result [...] complaints Warfarin Therapy Instructions November 2021 Details [place] Thu Sat 1 2 3 4 5 6 7 8 9 10 11 12 13 14 15 16 17 18 19 20 21 22 23 24 25 26 27 28 29 5 mg See details 30 6 mg 31 5 mg Date Details 12/02 This INR check How to take your warfarin dose To take: 5 mg Take 1 of the 5 mg tablets. To take: 6 mg Take 1 of the 5 mg tablets and 1 of the 1 mg tablets. Warfarin Therapy Instructions December 2021 Details Thu Sat 1 6 mg 2 5 mg 3 6 mg 4 6 mg 5 5 mg 6 6 mg 7 8 9 10 11 12 13 14 15 16 17 18 19 20 21 22 23 24 25 26 27 28 29 30 Date Details No additional details Date of next INR: 12/10/2021 How to take your warfarin dose To take: 5 mg Take 1 of the 5 mg tablets. To take: 6 mg Take 1 of the 5 mg tablets and 1 of the 1 mg tablets. Description 12/02/21: INR in range. Continue on current dose of warfarin and retest INR again in 1 week. Test onThursday and [facility] call back on Thursday. Counseled on colors [...] 11/11/2023 3:00 AM EDT Anti-Coag Telephone Visit [facility] [place] [address] documented as of this encounter Visit Diagnoses Diagnosis Antiphospholipid antibody syndrome Primary hypercoagulable state Aortic valve prosthesis present Heart valve replaced by other means Pulmonary embolism, unspecified chronicity, unspecified pulmonary embolism type, unspecified whether acute cor pulmonale present documented in this encounter Care Teams Sports Medicine Specialist Relationship Specialty Start Date End Date Briana Timmons, ATTENDING AMBULATORY CARE Aniya [place] [address] PCP - General Family Medicine 08/09/21 documented as of this encounter
--- OUTSIDE RECORDS SUMMARY | 2023-11-04 15:11 | XMS_ITS | Encounter Summary ---
[place] [address] Care Team Providers Care Mangle Tender Name Role Phone Briana Timmons APRN Primary Care Provider [phone] Encounter Details Date Type Department Care Team (Latest Contact Info) Description 02/10/2022 3:00 AM EST Anti-Coag Telephone Visit [facility] [place] [phone], RN Antiphospholipid antibody syndrome; Aortic [...] Progress Notes * Tucker Lane RN - 02/10/2022 3:00 AM EST Images from the original note were not included. Anticoagulation Therapy Note Anticoagulation Summary As of 02/10/2022 INR goal: 2.5-3.5 TTR: 63.9 % (6 mo) INR used for dosin.4 (02/10/2022) Warfarin maintenance plan: 6 mg (5 mg x 1 and 1 mg x 1) every Thu, Yaritza; 5 mg (5 mg x 1) all other days Weekly warfarin total: 37 mg Plan last modified: Tucker Lane RN (02/10/2022) Next INR check: 02/17/2022 Priority: 1 Week Target end date: Indefinite Indications Antiphospholipid antibody----- use antiXa level to dose heparin. 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] Pulmonary embolism unspecified chronicity unspecified pulmonary embolism type unspecified whether acute cor pulmonale present [I26.99] Anticoagulation Episode Summary INR check location: Home Draw Preferred lab: [facility] Send INR reminders to: [facility] Comments: Home Monitor [phone] (M) Anticoagulation Care Providers Provider Role Specialty Phone number Gerardo Richter MD Responsible Cardiology [phone] Patient Assessment Service Type: INR Test Result INR Result: Out of Range Clinical Outcomes Negatives: Major bleeding event, Thromboembolic event, Anticoagulation-related hospital admission, Anticoagulation-related ED visit Patient Findings Positives: Change in medications (tylenol) Negatives: Upcoming Travel, Planning or Currently , Recent Fall, Signs/symptoms of thrombosis, Signs/symptoms of bleeding, Laboratory test error suspected, Change in health, Change in alcoholuse, Change in activity, Upcoming invasive procedure, Emergency department visit, Upcoming dental procedure, Missed doses, Extra doses, Change in diet/appetite, Hospital admission, Bruising, Other complaints Warfarin Therapy Instructions February 2022 Details Sun Mon Tu Wed Yaritza Fri Sat 1 2 3 4 5 6 7 5 mg See details 8 5 mg 9 5 mg 10 6 mg 11 5 mg 12 5 mg 13 6 mg 14 5 mg 15 16 17 18 19 20 21 22 23 24 25 26 27 28 29 30 Date Details 02/10 This INR check Date of next INR: 02/17/2022 How to take your warfarin dose To take: 5 mg Take 1 of the 5 mg tablets. To take: 6 mg Take 1 of the 5 mg tablets and 1 of the 1 mg tablets. Description 02/10 INR elevated today, spoke with Cecilia, reports taking tylenol for headaches, denies other changes, decrease weekly dose 7.5%, retest 1 week. 02/03/22: INR in range. Continue on current dose of warfarin and retest INR again in 1 week. Cecilia's phone was not accepting calls, [employer] message sent 02/04/22 with dose plan. 01/27/22: INR in range. Continue on current dose of warfarin and retest INR again in 1 week. Has been taking Tylenol for a headache. Agreed to call [facility] if anything changes over the [...] range yesterday, unable to reach by phone, [employer] message sent, maintain current dose, retest 2 weeks. 12/17 INR in range yesterday, spoke with Cecilia, denies any changes, maintain current dose, retest 1 week. 12/10/21: INR slightly below range. Increase dose 2.5% and test INR in 1 week. 12/02/21: INR in range. Continue on current dose of warfarin and retest INR again in 1 week. Test onThursday and [facility] call back on Thursday. Counseled on colors of 1mg tabs and 5mg tabs. Cecilia fills herpill box weekly on Mondays. documented in this encounter Plan of Treatment Upcoming Encounters Date Type Department Care Team (Late st Contact Info) Description 11/11/2023 3:00 AM EDT Anti-Coag Telephone Visit [facility] [place] [address] documented as of this encounter Visit Diagnoses Diagnosis Antiphospholipid antibody syndrome Primary hypercoagulable state Aortic valve prosthesis present Heart valve replaced by other means Pulmonary embolism, unspecified chronicity, unspecified pulmonary embolism type, unspecified whether acute cor pulmonale present documented in this encounter Care Teams Mangle Tender Relationship Specialty Start Date End Date Briana Timmons, STOKER MECHANIC [place] [address] PCP - General Family Medicine 08/09/21 documented as of this encounter
--- OUTSIDE RECORDS SUMMARY | 2023-11-04 15:11 | XMS_ITS | Encounter Summary ---
[place] [address] Care Team Providers Care Transport Driver Name Role Phone Briana Timmons APRN Primary Care Provider [phone] Encounter Details Date Type Department Care Team (Latest Contact Info) Description 11/18/2021 3:00 AM EDT Anti-Coag Telephone Visit [facility] [place] [phone] Shasta Delaney, [facility] Antiphospholipid antibody syndrome; Aortic valve prosthesis [...] encounter Progress Notes * Shasta Delaney [facility] - 11/18/2021 3:00 AM EDT Images from the original note were not included. Anticoagulation Therapy Note Anticoagulation Summary As of 11/18/2021 INR goal: 2.5-3.5 TTR: 35.7 % (6 mo) INR used for dosin.8 (11/18/2021) Warfarin maintenance plan: 7.5 mg (5 mg x 1.5) every Sun; 5 mg (5 mg x 1) all other days Weekly warfarin total: 37.5 mg Plan last modified: Shasta Delaney [facility] (11/11/2021) Next INR check: 11/25/2021 Priority: 1 Week Target end date: Indefinite Indications Antiphospholipid antibody----- use antiXa level to dose heparin. 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] Pulmonary embolism unspecified chronicity unspecified pulmonary embolism type unspecified whether acute cor pulmonale present [I26.99] Anticoagulation Episode Summary INR check location: Home Draw Preferred lab: [facility] Send INR reminders to: [facility] Comments: Home Monitor [phone] (M) Anticoagulation Care Providers Provider Role Specialty Phone number Gerardo Richter MD Responsible Cardiology [phone] Patient Assessment Service Type: INR Test Result INR Result: In Range Clinical Outcomes Patient Findings Comments: I left a voicemail for Cecilia with instructions to call with any changes in diet, medication or health or if the dosing we have on record differs from the dose they have been taking. Also instructed to call clinic to report any missed doses. Warfarin Therapy Instructions November 2021 Details Sun Thu Fri Sat 1 2 3 4 5 6 7 8 9 10 11 12 13 14 15 5 mg See details 16 5 mg 17 5 mg 18 5 mg 19 5 mg 20 5 mg 21 7.5 mg 22 5 mg 23 24 25 26 27 28 29 30 31 Date Details 11/18 This INR check Date of next INR: 11/25/2021 How to take your warfarin dose To take: 5 mg Take 1 of the 5 mg tablets. To take: 7.5 mg Take 1.5 of the 5 mg tablets. Description 11/18/21: INR in range. Continue on current [...] above range due to illness, I will haveAngie resume current dose of warfarin and test INR on Thursday. documented in this encounter Plan of Treatment Upcoming Encounters Date Type Department Care Team (Late st Contact Info) Description 11/11/2023 3:00 AM EDT Anti-Coag Telephone Visit [facility] [place] [address] documented as of this encounter Visit Diagnoses Diagnosis Antiphospholipid antibody syndrome Primary hypercoagulable state Aortic valve prosthesis present Heart valve replaced by other means Pulmonary embolism, unspecified chronicity, unspecified pulmonary embolism type, unspecified whether acute cor pulmonale present documented in this encounter Care Teams Transport Driver Relationship Specialty Start Date End Date Briana Timmons, ATTRACTION ATTENDANT Aniya [place] [address] PCP - General Family Medicine 08/09/21 documented as of this encounter
--- OUTSIDE RECORDS SUMMARY | 2023-11-04 15:11 | XMS_ITS | Encounter Summary ---
[place] [address] Care Team Providers Care Nuclear Medicine Technician Name Role Phone Briana Timmons APRN Primary Care Provider [phone] Encounter Details Date Type Department Care Team (Latest Contact Info) Description 01/20/2022 3:00 AM EDT Anti-Coag Telephone Visit [facility] [place] [phone] Shasta Delaney [facility] Antiphospholipid antibody syndrome; Aortic valve [...] encounter Progress Notes * Shasta Delaney [facility] - 01/20/2022 3:00 AM EDT Images from the original note were not included. Anticoagulation Therapy Note Anticoagulation Summary As of 01/20/2022 INR goal: 2.5-3.5 TTR: 62.0 % (6 mo) INR used for dosin.0 (01/20/2022) Warfarin maintenance plan: 5 mg (5 mg x 1) every Mon, Fri; 6 mg (5 mg x 1 and 1 mg x 1) all other days Weekly warfarin total: 40 mg Plan last modified: Shasta Delaney [facility] (12/10/2021) Next INR check: 01/27/2022 Priority: 1 Week Target end date: Indefinite Indications Antiphospholipid antibody----- use antiXa level to dose heparin. 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] Pulmonary embolism unspecified chronicity unspecified pulmonary embolism type unspecified whether acute cor pulmonale present [I26.99] Anticoagulation Episode Summary INR check location: Home Draw Preferred lab: [facility] Send INR reminders to: [facility] Comments: Home Monitor [phone] (M) Anticoagulation Care Providers Provider Role Specialty Phone number Gerardo Richter MD Responsible Cardiology [phone] Patient Assessment Service Type: INR Test Result INR Result: In Range Clinical Outcomes Negatives: Major bleeding event, Thromboembolic event, Anticoagulation-related hospital admission, Anticoagulation-related ED visit Patient Findings Positives: Change in medications (Prednisone taper started 01/07/22) Negatives: Upcoming Travel, Planning or Currently , Recent Fall, Signs/symptoms of thrombosis, Signs/symptoms of bleeding, Laboratory test error suspected, Change in health, Change in alcoholuse, Change in activity, Upcoming invasive procedure, Emergency department visit, Upcoming dental procedure, Missed doses, Extra doses, Change in diet/appetite, Hospital admission, Bruising, Other complaints Warfarin Therapy Instructions January 2022 Details Sun Mon Tue Wed Yaritza Fri Sat 1 2 3 4 5 6 7 8 9 10 11 12 13 14 15 16 17 5 mg See details 18 6 mg 19 6 mg 20 6 mg 21 5 mg 22 6 mg 23 6 mg 24 5 mg 25 26 27 28 29 30 31 Date Details 01/20 This INR check Date of next INR: 01/27/2022 How to take your warfarin dose To take: 5 mg Take 1 of the 5 mg tablets. To take: 6 mg Take 1 of the 5 mg tablets and 1 of the 1 mg tablets. Description 01/20/22: INR in range. Continue on current [...] range yesterday, unable to reach by phone, [facility] message sent, maintain current dose, retest 2 weeks. 12/17 INR in range yesterday, spoke with Cecilia, denies any changes, maintain current dose, retest 1 week. 12/10/21: INR slightly below range. Increase dose 2.5% and test INR in 1 week. 12/02/21: INR in range. Continue on current dose of warfarin and retest INR again in 1 week. Test onThursday and [facility] call back on Thursday. Counseled on colors [...] 11/11/2023 3:00 AM EDT Anti-Coag Telephone Visit [facility] [place] [address] documented as of this encounter Visit Diagnoses Diagnosis Antiphospholipid antibody syndrome Primary hypercoagulable state Aortic valve prosthesis present Heart valve replaced by other means Pulmonary embolism, unspecified chronicity, unspecified pulmonary embolism type, unspecified whether acute cor pulmonale present documented in this encounter Care Teams Nuclear Medicine Technician Relationship Specialty Start Date End Date Briana Timmons, TRUCK [place] [address] PCP - General Family Medicine 08/09/21 documented as of this encounter
--- OUTSIDE RECORDS SUMMARY | 2023-11-04 15:11 | XMS_ITS | Encounter Summary ---
Author Organization [facility] [place] [address] Care Team Providers Care Blunger Machine Operator Name Role Phone Briana Timmons APRN Primary Care Provider [phone] Reason for Referral * Physical Therapy (Routine) - Closed Specialty Diagnoses / Procedures Referred By Edgar warren Referred To Contact Physical Therapy Diagnoses Ischial bursitis of right side Hamstring tendinitis at origin Brad Baugh MD [facility] [place] [address] [place] [address] Referral ID Status Reason Start Date Expiration Date V isits Requested Visits Authorized [id number] Closed Evaluate and Treat Non PCP 04/08/2022 10/05/2022 12 12 Encounter Details Date Type Department Care Team (Late st Contact Info) Description 04/08/2022 3:30 PM EST TH Visit (TeleHealth) [place] [phone] Brad Baugh MD [facility] [place] [address] [place] [address] Pain in both knees, unspecified chronicity; Antiphospholipid antibody----- use antiXa level to dose heparin. ; Dilated cardiomyopathy--- noted in 2004, improved; Systemic lupus erythematosus, unspecified SLE type, unspecified organ involvement status; Aortic valve prosthesis present; History of total bilateral knee replacement; Pulmonary embolism, unspecified chronicity, unspecified pulmonary embolism type, unspecified whether acute cor pulmonale present; High risk medication use; Ischial bursitis of right side; Hamstring tendinitis at origin Social History Tobacco Use Types Packs/Day Years [...] AM EST documented as of this encounter Patient Instructions * Attachments The following attachments cannot be sent through Care Everywhere. * Hamstring Strain: Rehab Exercises (Wallisian) documented in this encounter Progress Notes * Brad Baugh MD - 04/08/2022 3:30 PM EST Rheumatology Clinic: Dr. Baugh 04/08/2022 [id number] This is a TeleHealth video visit for Cecilia Dumont in follow-up of her lupus as characterized in her first visit to the Lupus Clinic back on 09/26/2021 when she was seen by Oxana Bone APRN and myself. She has been followed over the years by a number of rheumatologists, mainly Dr. Shanelle Lozada. See the brief summary below. One of the major aspects of lupus has been antiphospholipid antibody syndrome with multiple thrombotic events. She is on chronic anticoagulation with warfarin. She tells me today that it is difficult to keep her INR stable and therefore she has to have INRs done weekly. We discussed with her today whether she might be a candidate for alternative anticoagulation. This has probably been addressed before and because of the difficult APS and AVR, might not be possible, but it is worth her checking on that. She follows with the Coumadin clinic here and she'll ask Shasta, her supervisor contact lens, whether there is someone she can talk to about that. Dr. Gerardo Richter is her shop service technician. Rheum History: -SLE dx at 21yo. w/discoid rash, arthritis, oral and nasal ulcers, pleuro pericarditis, Raynaud's phenomena -APS associated with lupus causing TIA (diplopia and right handed numbness), CVA in distant past, miscarriages, migraine headaches with aura and thrombocytopenia. hx halfway anticoagulation with heparin or coumadin -Prior tx for osteoporosis while on prednisone with Actonel and calcium. Actonel DC'd 10/2008. -Cardiomyopathy, probably secondary to lupus. ??Endomyocardial biopsy negative for viral changes, changes of hydroxychloroquine myopathy or other specific etiology. ??Recovery of ejection fraction byechocardiogram 2005. Cardiac cath 03/2012- normal coranary arteries, Ef 64%, ?peicardial constriction given equalization of Rt and Lt sided pressures?? - 05/2017 Aortic valve replacement, hospitalized s/p this procedure. Complicated by gross hematuria,cysto normal, no more episodes of bleeding When we first saw her back in September, her major issues were musculoskeletal, including inflammatory arthralgias of the hands and wrists, but also chronic bilateral knee pain, despite being status post bilateral knee replacements. We suggested that she see orthopedics about that. She did and her x-rayshowed no problems with the prostheses. For her pain she has been told to take Tylenol, but she doesn't find that particularly helpful. We then discussed topical agent and it turns out that Dr. Linares prescribed Voltaren gel in the past and she thought that had been helpful, but she had forgotten about it. We encouraged her to try that on her knees. Another issue was some right-sided sciatica. For that, we recommended that she undergo an MRI of the lumbar spine. Since then she has been to a neurologist up in [facility], who ordered the MRI which was done on 03/28/2022. That showed significant degenerative disc disease, but no obvious spinal stenosis or nerve root compression. She'll see the neurologist back in later April to go over th ose results, but apparently the answer is not there. He prescribed gabapentin for her symptoms, butalmaztatiana admits today that she only took it a few times. According to her, he also ordered a bone scan, but I don't see those results. We went over her symptoms on the right side today and it turns out itstarts in her right buttock and radiates down the back of her leg. This is particularly bad when she first gets up out of a chair, then improves a bit, but after she walks a while, it comes back. When I specifically asked her if it bothered her to sit, she said yes, it becomes uncomfortable. We then discussed the sits bone and it turns out that is about where the pain begins. So it is possible this is ischial bursitis/hamstring tendinitis. She would be ago willing to go to physical therapy about that. We also recommended an ischial bursitis pillow/cushion. In terms of the inflammatory hand and wrist symptoms associated with some swelling, we put her on methotrexate. She had been on that in the past in pill form and that had been helpful, but she had been intolerant of it with GI side effects. Therefore we had her go with injectable this time and thathas worked out well, but she still has some residual swelling in the wrists and hands and we agreedtoday to increase that to 0.6 or 15 mg a week. We'll check labs close to home first. Patient Active Problem List Diagnosis Code ??? Depression and anxiety F32.A ??? Dilated cardiomyopathy--- noted in 2003, improved I42.0 ??? Hypertension I10 ??? Systemic lupus erythematosus M32.9 ??? Antiphospholipid antibody----- use antiXa level to dose heparin. D68.61 ??? Cerebral infarction---at age 21 I63.9 ??? JAN on CPAP G47.33, Z99.89 ??? Migraine G43.909 ??? Hyperlipemia E78.5 ??? Chest pain-- normal cors by cath in 2004 and 2012 R07.9 ??? Osteoporosis M81.0 ??? H/O total knee replacement Z96.659 ??? [address] Alegre with severe AI, SLE, and APLS admitted for conversion to heparin prior to AVR. Course c/b gross hematuria, CHARLES, cp, anxiety. Q23.1 ??? Gross hematuria--- while on heparin R31.0 ??? Pulmonary embolism I26.99 ??? Aortic valve prosthesis present Z95.2 ??? Pulmonary embolism, unspecified chronicity, unspecified pulmonary embolism type, unspecified whether acute cor pulmonale present I26.99 Medications 09/25/21 1122 Medication Sig Taking? diclofenac (Voltaren) 1 % Gel Apply 2 g topically 2 times daily. folic acid (Folvite) 1 mg Tablet Take 1 tablet by mouth daily. warfarin (Coumadin) 1 mg Tablet Variable Dosing - take 1 to 2 tablets by mouth every evening as directed by the Anticoagulation Clinic metHOTREXate 25 mg/mL Solution Inject 0.4 mLs subcutaneously once a week. Syringe with Needle, Safety 1 mL 27 gauge x 1/2 Syringe 1 Syringe by [facility].(Non- Drug; Combo Route) route once a week. Use weekly to inject methotrexate subcutaneously. warfarin (Coumadin) 5 mg Tablet Variable dosing- Take up to one and one-half tablets by mouth nightly as directed by the Anticoagulation Clinic enoxaparin (Lovenox) 150 mg/mL Syringe Inject 0.9mL subcutaneously into the abdomen once a day until INR is in therapeutic range atorvastatin (Lipitor) 40 mg Tablet Take 1 tablet by mouth every evening. metoprolol succinate XL (Toprol-XL) 50 mg Tablet Sustained Release 24 hr Take 1 tablet by mouth daily. levothyroxine (Synthroid) 25 mcg Tablet Take 1 tablet by mouth daily. Dosage Unknown FLUoxetine (PROzac) 40 mg Capsule Take 40 mg by mouth daily. hydrOXYchloroQUINE (Plaquenil) 200 mg Tablet Take 1 tablet by mouth 2 times daily. Indications: systemic lupus erythematosus, an autoimmune disease pantoprazole (PROTONIX) 40 mg Tablet, Delayed Release (E.C.) Take 40 mg by mouth 2 times daily. acetaminophen (TYLENOL) 500 mg Tablet Take 2 tablets by mouth every 6 hours as needed for Pain. aspirin 81 mg Tablet, Chewable Take 81 mg by mouth daily. multivitamin with minerals tablet 1 Tablet(s), PO, Once daily Physical Exam: She looks well on the video. She is in good spirits. Assessment: We had a long discussion about her situation. We'll have her get lab work close to homeand if everything looks okay, we'll increase the methotrexate to 15 mg a week by injection. In terms of the right-sided sciatica, it's possible this is ischial bursitis and hamstring tendinitis andwe referred her to physical therapy near her home. We'll mail her both the lab slips and the PT prescription to her home address. In the meantime, she'll meet with the neurologist later on 04/24/2022 and they will review the MRI results. She'll also discuss with Shasta Delaney in the anticoagulation clinic whether she is a candidate for a different form of anticoagulation. She does have an aorticvalve replacement and APS, so there may be no other options. We'll see her in follow- up in 3 to 4 months. Hopefully that will be [id number]. Total visit time: 60 minutes. Visit level: 45647. Visit Diagnoses: 1. Pain in both knees, unspecified chronicity 2. Antiphospholipid antibody----- use antiXa level to dose heparin. 3. Dilated cardiomyopathy--- noted in 2003, improved 4. Systemic lupus erythematosus, unspecified SLE type, unspecified organ involvement status 5. Aortic valve prosthesis present 6. History of total bilateral knee replacement 7. Pulmonary embolism, unspecified chronicity, unspecified pulmonary embolism type, unspecified whether acute cor pulmonale present 8. High risk medication use 9. Ischial bursitis of right side 10. Hamstring tendinitis at origin Orders Placed This Encounter Procedures ??? CBC (with Diff) ??? Comprehensive metabolic panel (non-fasting) ??? Sedimentation rate ??? CRP, acute inflammation ??? Referral to Physical Therapy documented in this encounter Plan of Treatment Upcoming Encounters Date Type Department Care Team (Late st Contact Info) Description 11/11/2023 3:00 AM EDT Anti-Coag Telephone Visit [facility] [place] [address] Scheduled Referrals Name Type Priority Associated Diagnoses Orde r Schedule Referral to Physical Therapy Outpatient Referral Routine Ischial bursitis of right side Hamstring tendinitis at origin Ordered: 04/08/2022 documented as of this encounter Visit Diagnoses Diagnosis Pain in both knees, unspecified chronicity Antiphospholipid antibody----- use antiXa level to dose heparin. Primary hypercoagulable state Dilated cardiomyopathy--- noted in 2003, improved Other primary cardiomyopathies Systemic lupus erythematosus, unspecified SLE type, unspecified organ involvement status Aortic valve prosthesis present Heart valve replaced by other means History of total bilateral knee replacement Pulmonary embolism, unspecified chronicity, unspecified pulmonary embolism type, unspecified whether acute cor pulmonale present High risk medication use Encounter for long-term (current) use of other medications Ischial bursitis of right side Hamstring tendinitis at origin documented in this encounter Care Teams Blunger Machine Operator Relationship Specialty Start Date End Date Briana Timmons, IT SECURITY PROJECT MANAGER [address] [place] [address] PCP - General Family Medicine 08/09/21 documented as of this encounter
--- OUTSIDE RECORDS SUMMARY | 2023-11-04 15:11 | XMS_ITS | Encounter Summary ---
[place] [address] Care Team Providers Care Upholstery Auto Trimmer Name Role Phone Briana Timmons APRN Primary Care Provider [phone] Encounter Details Date Type Department Care Team (Late Contact Info) Description 04/01/[address] [facility] Information Services [address] [place] [phone] Provider, His Benigno MD None Social History [...] Encounters Date Type Department Care Team ([facility] Contact Info) Description 11/11/2023 3:00 AM EDT Anti-Coag Telephone Visit [facility] [place] [address] documented as of this encounter Procedures Procedure Name Priority Date/Time Associated Diagnosis Comments EXTERNAL INR RESULTS PANEL Routine 04/01/2022 9:47 AM EST documented in this encounter Results * (ABNORMAL) External INR Results Panel (04/01/2022 9:47 AM EST) POCT INR 2.3(A) 0.9 - 1.1 HOME MONITOR Blood 04/01/2022 9:47 AM EST His [place] Provider POINT OF CARE ST ORDERABLES HOME MONITOR documented in this encounter Visit Diagnoses Not on filedocumented in this encounter Care Teams Upholstery Auto Trimmer Relationship Specialty Start Date End Date Briana Timmons, CORPORATE TECHNICAL RECRUITER [place] [place] [address] PCP - General Family Medicine 08/09/21 documented as of this encounter
--- OUTSIDE RECORDS SUMMARY | 2023-11-04 15:11 | XMS_ITS | Encounter Summary ---
[place] [address] Care Team Providers Care Trench Digging Machine Operator Name Role Phone Briana Timmons APRN Primary Care Provider [phone] Encounter Details Date Type Department Care Team (Late Contact Info) Description 03/17/2022 External Results [facility] Information Services [address] [place] [phone] Provider, His Benigno MD None Social History [...] Upcoming Encounters Date Type Department Care Team ([facility] Contact Info) Description 11/11/2023 3:00 AM EDT Anti-Coag Telephone Visit [facility] [place] [address] documented as of this encounter Procedures Procedure Name Priority Date/Time Associated Diagnosis Comments EXTERNAL INR RESULTS PANEL Routine 03/17/2022 9:16 AM EST documented in this encounter Results * (ABNORMAL) External INR Results Panel (03/17/2022 9:16 AM EST) POCT INR 3.1(A) 0.9 - 1.1 HOME MONITOR Blood 03/17/2022 9:16 AM EST His [place] Provider POINT OF CARE TE ST ORDERABLES HOME MONITOR documented in this encounter Visit Diagnoses Not on filedocumented in this encounter Care Teams Trench Digging Machine Operator Relationship Specialty Start Date End Date Briana Timmons, PEDIATRIC DENTAL HYGIENIST [place] [place] [address] PCP - General Family Medicine 08/09/21 documented as of this encounter
--- OUTSIDE RECORDS SUMMARY | 2023-11-04 15:11 | XMS_ITS | Encounter Summary ---
[place] [address] Care Team Providers Care Optical Engineer Name Role Phone Briana Timmons APRN Primary Care Provider [phone] Encounter Details Date Type Department Care Team (Latest Contact Info) Description 02/03/2022 3:00 AM EDT Anti-Coag Telephone Visit [facility] [place] [phone] Shasta Delaney [facility] Antiphospholipid [...] Shasta Delaney [facility] - 02/03/2022 3:00 AM EDT Images from the original note were not included. Anticoagulation Therapy Note Anticoagulation Summary As of 02/03/2022 INR goal: 2.5-3.5 TTR: 65.9 % (5.9 mo) INR used for dosin.1 (02/03/2022) Warfarin maintenance plan: 5 mg (5 mg x 1) every Mon, Fri; 6 mg (5 mg x 1 and 1 mg x 1) all other days Weekly warfarin total: 40 mg Plan last modified: Shasta Delaney [facility] (12/10/2021) Next INR check: 02/10/2022 Priority: 1 Week Target end date: Indefinite Indications Antiphospholipid antibody----- use antiXa level to dose heparin. 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] Pulmonary embolism unspecified chronicity unspecified pulmonary embolism type unspecified whether acute cor pulmonale present [I26.99] Anticoagulation Episode Summary INR check location: Home Draw Preferred lab: [facility] Send INR reminders to: [facility] Comments: Home Monitor [phone] (M) Anticoagulation Care Providers Provider Role Specialty Phone number Gerardo Richter MD Responsible Cardiology [phone] Patient Assessment Service Type: INR Test Result INR Result: In Range Clinical Outcomes Patient Findings Comments: myD-H message sent to Cecilia with instructions to call with any changes in diet, medication or health or if the dosing we have on record differs from the dose they have been taking. Also instructed to call clinic to report any missed doses. Unable to get through on her phone number. Warfarin Therapy Instructions January 2022 Details Thu Sat 1 2 3 4 5 6 7 8 9 10 11 12 13 14 15 16 17 18 19 20 21 22 23 24 25 26 27 28 29 30 31 5 mg See details Date Details 02/03 This INR check How to take your warfarin dose To take: 5 mg Take 1 of the 5 mg tablets. Warfarin Therapy Instructions February 2022 Details Thu Fri Sat 1 6 mg 2 6 mg 3 6 mg 4 5 mg 5 6 mg 6 6 mg 7 5 mg 8 9 10 11 12 13 14 15 16 17 18 19 20 21 22 23 24 25 26 27 28 29 30 Date Details No additional details Date of next INR: 02/10/2022 How to take your warfarin dose To take: 5 mg Take 1 of the 5 mg tablets. To take: 6 mg Take 1 of the 5 mg tablets and 1 of the 1 mg tablets. Description 02/03/22: INR in range. Continue on current dose of warfarin and retest INR again in 1 week. Cecilia's phone was not accepting calls, [employer] message sent 02/04/22 with dose plan. 01/27/22: INR in range. Continue on current dose of warfarin and retest INR again in 1 week. Has been taking Tylenol for a headache. Agreed to call [facility] if anything changes over the next week [...] range yesterday, unable to reach by phone, m[employer]ASH message sent, maintain current dose, retest 2 weeks. 12/17 INR in range yesterday, spoke with Cecilia, denies any changes, maintain current dose, retest 1 week. 12/10/21: INR slightly below range. Increase dose 2.5% and test INR in 1 week. 12/02/21: INR in range. Continue on current dose of warfarin and retest INR again in 1 week. Test onMond and [facility] call back on Thursday. Counseled on colors of 1mg tabs and 5mg tabs. Cecilia fills herpill box weekly on Mondays. 11/26/21 INR 2.5 Have ordered her 1 mg tablets to be able to have more options to dose with Dose 6 mg on //Thu /Sun and 5 mg on Thu/Thu/Thu. Recheck on [...] Telephone Visit [facility] [place] [address] documented as of this encounter Visit Diagnoses Diagnosis Antiphospholipid antibody syndrome Primary hypercoagulable state Aortic valve prosthesis present Heart valve replaced by other means Pulmonary embolism, unspecified chronicity, unspecified pulmonary embolism type, unspecified whether acute cor pulmonale present documented in this encounter Care Teams Optical Engineer Relationship Specialty Start Date End Date Briana Timmons, EMERGENCY DEPT TECH [place] [address] PCP - General Family Medicine 08/09/21 documented as of this encounter
--- OUTSIDE RECORDS SUMMARY | 2023-11-04 15:11 | XMS_ITS | Encounter Summary ---
[place] [address] Care Team Providers Care Bar Helper Name Role Phone Briana Timmons APRN Primary Care Provider [phone] Encounter Details Date Type Department Care Team (Late Contact Info) Description 10/28/2021 [place]phone [place] [phone] Gena Hare Social History Tobacco Use Types Packs/Day Years [...] encounter Miscellaneous Notes * Telephone Encounter - Gena Hare - 10/28/2021 4:25 PM EDT Called pt to try and maylin a bumped follow up, left message, sending letter documented in this encounter Plan of Treatment Upcoming Encounters Date Type Department Care Team (Late st Contact Info) Description 11/11/2023 3:00 AM EDT Anti-Coag Telephone Visit [facility] [place] [phone] documented as of this encounter Visit Diagnoses Not on filedocumented in this encounter Care Teams Bar Helper Relationship Specialty Start Date End Date Briana Timmons, STATION MASTER [address] [facility] [place] [address] PCP - General Family Medicine 08/09/21 documented as of this encounter
--- OUTSIDE RECORDS SUMMARY | 2023-11-04 15:11 | XMS_ITS | Encounter Summary ---
[place] [address] Care Team Providers Care Case Picker Name Role Phone Briana Timmons APRN Primary Care Provider [phone] Encounter Details Date Type Department Care Team (Latest Contact Info) Description 11/05/2021 3:00 AM EDT Anti-Coag Telephone Visit [facility] [place] [phone] Shasta Delaney [facility] Antiphospholipid antibody [...] Progress Notes * Shasta Delaney [facility] - 11/05/2021 3:00 AM EDT Images from the original note were not included. Anticoagulation Therapy Note Anticoagulation Summary As of 11/05/2021 INR goal: 2.5-3.5 TTR: 35.1 % (6 mo) INR used for dosin.9 (11/05/2021) Warfarin maintenance plan: 7.5 mg (5 mg x 1.5) every Thu, Yaritza; 5 mg (5 mg x 1) all other days Weekly warfarin total: 40 mg Plan last modified: Shasta Delaney [facility] (11/05/2021) Next INR check: 11/11/2021 Priority: 1 Week Target end date: Indefinite Indications Antiphospholipid antibody----- use antiXa level to dose heparin. 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] Pulmonary embolism unspecified chronicity unspecified pulmonary embolism type unspecified whether acute cor pulmonale present [I26.99] Anticoagulation Episode Summary INR check location: Home Draw Preferred lab: [facility] Send INR reminders to: [facility] Comments: Home Monitor [phone] (W) Anticoagulation Care Providers Provider Role Specialty Phone number Gerardo Richter MD Responsible Cardiology [phone] Patient Assessment Service Type: INR Test Result [...] Warfarin Therapy Instructions November 2021 Details Sun Mon Thu Fri Sat 1 2 5 mg See details 3 5 mg 4 7.5 mg 5 5 mg 6 5 mg 7 7.5 mg 8 5 mg 9 10 11 12 13 14 15 16 17 18 19 20 21 22 23 24 25 26 27 28 29 30 31 Date Details 11/05 This INR check Date of next INR: 11/11/2021 How to take your warfarin dose To take: 5 mg Take 1 of the 5 mg tablets. To take: 7.5 mg Take 1.5 of the 5 mg tablets. Description 11/05/21: INR above range. Decrease weekly dose [...] Telephone Visit [facility] Centralized Anticoagulation [place] [phone] documented as of this encounter Visit Diagnoses Diagnosis Antiphospholipid antibody syndrome Primary hypercoagulable state Aortic valve prosthesis present Heart valve replaced by other means Pulmonary embolism, unspecified chronicity, unspecified pulmonary embolism type, unspecified whether acute cor pulmonale present documented in this encounter Care Teams Case Picker Relationship Specialty Start Date End Date Briana Timmons, SHAREPOINT NET DEVELOPER [place] [address] PCP - General Family Medicine 08/09/21 documented as of this encounter
--- OUTSIDE RECORDS SUMMARY | 2023-11-04 15:11 | XMS_ITS | Encounter Summary ---
[place] [address] Care Team Providers Care Natural Gas Plant Technician Name Role Phone Briana Timmons APRN Primary Care Provider [phone] Encounter Details Date Type Department Care Team (Late Contact Info) Description 02/03/2022 External Results [facility] Information Services [address] [place] [phone] Provider, His Benigno MD None Social History [...] Upcoming Encounters Date Type Department Care Team ([facility] Contact Info) Description 11/11/2023 3:00 AM EDT Anti-Coag Telephone Visit [facility] [place] [address] documented as of this encounter Procedures Procedure Name Priority Date/Time Associated Diagnosis Comments EXTERNAL INR RESULTS PANEL Routine 02/03/2022 documented in this encounter Results * (ABNORMAL) External INR Results Panel (02/03/2022) POCT INR 3.1(A) 0.9 - 1.1 HOME MONITOR Blood 02/03/2022 His [place] Provider POINT OF CARE RAYRAY WALLIS ORDERABLES HOME MONITOR documented in this encounter Visit Diagnoses Not on filedocumented in this encounter Care Teams Natural Gas Plant Technician Relationship Specialty Start Date End Date Briana Timmons, DJ INSTRUCTOR [place] [address] PCP - General Family Medicine 08/09/21 documented as of this encounter
--- OUTSIDE RECORDS SUMMARY | 2023-11-04 15:11 | XMS_ITS | Encounter Summary ---
[place] [address] Care Team Providers Care Buy Boat Operator Name Role Phone Briana Timmons APRN Primary Care Provider [phone] Encounter Details Date Type Department Care Team (Latest Contact Info) Description 01/06/2022 3:00 AM EDT Anti-Coag Telephone Visit [facility] [place] [phone] [address] [facility] Antiphospholipid antibody syndrome; Aortic valve prosthesis [...] this encounter Progress Notes * Shasta Delaney [facility] - 01/06/2022 3:00 AM EDT Images from the original note were not included. Anticoagulation Therapy Note Anticoagulation Summary As of 01/06/2022 INR goal: 2.5-3.5 TTR: 56.3 % (6 mo) INR used for dosin.3 (01/06/2022) Warfarin maintenance plan: 5 mg (5 mg x 1) every Mon, Fri; 6 mg (5 mg x 1 and 1 mg x 1) all other days Weekly warfarin total: 40 mg Plan last modified: Shasta Delaney [facility] (12/10/2021) Next INR check: 01/13/2022 Priority: 1 Week Target end date: Indefinite Indications Antiphospholipid antibody----- use antiXa level to dose heparin. 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] Pulmonary embolism unspecified chronicity unspecified pulmonary embolism type unspecified whether acute cor pulmonale present [I26.99] Anticoagulation Episode Summary INR check location: Home Draw Preferred lab: [facility] Send INR reminders to: [facility] Comments: Home Monitor [phone] (M) Anticoagulation Care Providers Provider Role Specialty Phone number Gerardo Richter MD Responsible Cardiology [phone] Patient Assessment Service Type: INR Test Result INR Result: In Range Clinical Outcomes Negatives: Major bleeding event, Thromboembolic event, Anticoagulation-related hospital admission, Anticoagulation-related ED visit Patient Findings Positives: Other complaints (knee pain, seeing ortho today, will call [facility] with updates) Negatives: Upcoming Travel, Planning or Currently , Recent Fall, Signs/symptoms of thrombosis, Signs/symptoms of bleeding, Laboratory test error suspected, Change in health, Change in alcoholuse, Change in activity, Upcoming invasive procedure, Emergency department visit, Upcoming dental procedure, Missed doses, Extra doses, Change in medications, Change in diet/appetite, Hospital admission, Bruising Warfarin Therapy Instructions January 2022 Details Sun Mon Tue Wed Yaritza Fri Sat 1 2 3 5 mg See details 4 6 mg 5 6 mg 6 6 mg 7 5 mg 8 6 mg 9 6 mg 10 5 mg 11 12 13 14 15 16 17 18 19 20 21 22 23 24 25 26 27 28 29 30 31 Date Details 01/06 This INR check Date of next INR: 01/13/2022 How to take your warfarin dose To take: 5 mg Take 1 of the 5 mg tablets. To take: 6 mg Take 1 of the 5 mg tablets and 1 of the 1 mg tablets. Description 01/06/22: INR in range. Continue on current dose of warfarin and retest INR again in 1 week. 12/24 INR in range yesterday, unable to reach by phone, [facility] message sent, maintain current dose, retest 2 weeks. 12/17 INR in range yesterday, spoke with Cecilia, denies any changes, maintain current dose, retest 1 week. 12/10/21: INR slightly below range. Increase dose 2.5% and test INR in 1 week. 12/02/21: INR in range. Continue on current dose of warfarin and retest INR again in 1 week. Test onThursday and [facility] call back on Thursday. Counseled [...] Visit [facility] [place] [address] documented as of this encounter Visit Diagnoses Diagnosis Antiphospholipid antibody syndrome Primary hypercoagulable state Aortic valve prosthesis present Heart valve replaced by other means Pulmonary embolism, unspecified chronicity, unspecified pulmonary embolism type, unspecified whether acute cor pulmonale present documented in this encounter Care Teams Buy Boat Operator Relationship Specialty Start Date End Date Briana Timmons, PRODUCTION [place] [address] PCP - General Family Medicine 08/09/21 documented as of this encounter
--- OUTSIDE RECORDS SUMMARY | 2023-11-04 15:12 | XMS_ITS | Encounter Summary ---
[place] [address] Care Team Providers Care Yard Engineer Name Role Phone Briana Timmons APRN Primary Care Provider [phone] Reason for Referral * Consultation (Routine) - Closed Specialty Diagnoses / Procedures Referred By Edgar warren Referred To Contact Rheumatology Diagnoses Systemic lupus erythematosus, unspecified SLE type, unspecified organ involvement status Briana Timmons APRN [address] [facility] [place] [address] [facility] [address] [place] [phone] Referral ID Status Reason Start Date Expiration Date V isits Requested Visits Authorized [id number] Closed Consult, Test & Treat PCP Updated and/or Approved 08/09/2021 08/09/2022 6 6 Encounter Details Date Type Department Care Team (Latest Contact Info) Description 08/09/2021 Transcribe Orders eDH Incoming Referrals [phone] Briana Timmons APRN [address] [place] [address] Systemic lupus erythematosus, unspecified SLE type, unspecified [...] 11/11/2023 3:00 AM EDT [place] [phone] Scheduled Referrals Name Type Priority Associated Diagnoses Orde r Schedule Referral to Rheumatology Outpatient Referral Routine Systemic lupus erythematosus, unspecified SLE type, unspecified organ involvement status Ordered: 08/09/2021 documented as of this encounter Visit Diagnoses Diagnosis Systemic lupus erythematosus, unspecified SLE type, unspecified organ involvement status documented in this encounter Care Teams Yard Engineer Relationship Specialty Start Date End Date Briana Timmons, ENGRAVER LETTERING [address] [place] [address] PCP - General Family Medicine 08/09/21 documented as of this encounter
--- OUTSIDE RECORDS SUMMARY | 2023-11-04 15:12 | XMS_ITS | Encounter Summary ---
[place] [address] Care Team Providers Care Scroll Machine Operator Name Role Phone Briana Timmons APRN Primary Care Provider [phone] Encounter Details Date Type Department Care Team (Late Contact Info) Description 10/21/2021 External Results [facility] Information Services [address] [place] [phone] Provider, His Benigno MD None Social History [...] Encounters Date Type Department Care Team ([facility] Contact Info) Description 11/11/2023 3:00 AM EDT Anti-Coag Telephone Visit [facility] [place] [address] documented as of this encounter Procedures Procedure Name Priority Date/Time Associated Diagnosis Comments EXTERNAL INR RESULTS PANEL Routine 10/21/2021 4:18 PM EDT documented in this encounter Results * (ABNORMAL) External INR Results Panel (10/21/2021 4:18 PM EDT) POCT INR 4.4(A) HOME MONITOR Blood 10/21/2021 4:18 PM EDT His [place] Provider POINT OF CARE RAYRAY WALLIS ORDERABLES HOME MONITOR documented in this encounter Visit Diagnoses Not on filedocumented in this encounter Care Teams Scroll Machine Operator Relationship Specialty Start Date End Date Briana Timmons, MOBILE CRANE [place] [address] PCP - General Family Medicine 08/09/21 documented as of this encounter
--- OUTSIDE RECORDS SUMMARY | 2023-11-04 15:12 | XMS_ITS | Encounter Summary ---
[place] [address] Care Team Providers Care Saw Cleaner Name Role Phone Mckenna Genao MEDICAL PHYSICIST Primary Care Provider [phone] Encounter Details Date Type Department Care Team (Latest Contact Info) Description 06/28/2021 9:32 AM EDT - 06/28/2021 11:59 PM EDT Hospital Encounter [place] [address] Gerardo Richter MD [facility] [place] [address] Pulmonary embolism, unspecified chronicity, unspecified pulmonary embolism type, unspecified whether acute cor pulmonale present; Anti-phospholipid antibody syndrome; FATIMA (dyspnea on exertion) Discharge Disposition: Home Social History Tobacco Use Types Packs/Day Years [...] AM EST documented as of this encounter Medications at Time of Discharge Medication Sig Dispensed Refills Start Date End Date enoxaparin (Lovenox) 150 mg/mL SyringeIndications:A ntiphospholipid antibody syndrome,Cerebral infarction, unspecified mechanism,Pulmonary embolism, unspecified chronicity, unspecified pulmonary embolism type, unspecified whether acute cor pulmonale present,Aortic valve prosthesis present Inject 0.9mL subcutaneously into the abdomen once a day until INR is in therapeutic range 1 mL 5 12/13/2020 atorvastatin (Lipitor) 40 mg Tablet Take 1 tablet by mouth every evening. 90 tablet 03/21/2020 metoprolol succinate XL (Toprol-XL) 50 mg Tablet Sustained Release 24 hr Take 1 tablet by mouth daily. 90 tablet 03/21/2020 levothyroxine (Synthroid) 25 mcg Tablet Take 1 tablet by mouth daily. Dosage Unknown 90 tablet 03/20/2020 FLUoxetine (PROzac) 40 mg Capsule Take 40 mg by mouth daily. pantoprazole (PROTONIX) 40 mg Tablet, Delayed Release (E.C.) Take 40 mg by mouth 2 times daily. acetaminophen (TYLENOL) 500 mg Tablet Take 2 tablets by mouth every 6 hours as needed for Pain. 30 tablet 1 05/30/2017 aspirin 81 mg Tablet, Chewable Take 81 mg by mouth daily. 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 Indications: systemic lupus erythematosus, an autoimmune disease 60 tablet 10/19/2019 12/24/2022 diclofenac (VOLTAREN) 1 % Gel Apply 2 g topically 3 times daily as needed. 100 g 1 10/19/2018 04/08/2022 documented as of this encounter Plan of Treatment Upcoming Encounters Date Type Department Care Team (Late st Contact Info) Description 11/11/2023 3:00 AM EDT Anti-Coag Telephone Visit [facility] Central[place] [address] documented as of this encounter Procedures Procedure Name Priority Date/Time Associated Diagnosis Comments CARDIOPULMONARY EXERCISE TEST (CPET)-DONE BY CARDIOLOGY Routine 06/28/2021 10:56 AM EDT Pulmonary embolism, unspecified chronicity, unspecified pulmonary embolism type, unspecified whether acute cor pulmonale present Anti-phospholipid antibody syndrome FATIMA (dyspnea on exertion) documented in this encounter Results * Cardiopulmonary Exercise Test (CPET)-Done by Cardiology (06/28/2021 10:56 AM EDT) Anatomical Region Laterality Modality Other Narrative 06/28/2021 3:11 PM EDT CARDIOPULMONARY STRESS TEST (CPET) TEST RESULTS Indication for the test: FATIMA Heart Rate Rest: 71 bpm Peak: 120 bpm; 70% predicted At VT: 89 bpm 1 minute of recovery: 99 bpm Blood Pressure Rest: 132/90 mmHg Peak: 168/80 mmHg CPET Test Protocol: 10 watt protocol Test Duration: 16:22 min Reason for termination: SOB Work rate at peak exercise: 96 W METS at peak exercise: 4.6; 85% predicted Cardiovascular At Peak Exercise: - VO2: 1573 mL/min - VO2: 16.1 ml/kg/min; 86% predicted At Ventilatory Threshold (VT): - VO2: 872 mL/min - VO2: 8.9 ml/kg/min; 55% of peak VO2 VE/VCO2 [place]: 26 Peak RER: 1.2 (>1.1 diagnostic) Pulmonary Spirometry: - FEV1: 2.37 L; 87% predicted - FVC: 2.71 L; 78% predicted - FEV1/FVC: 109% predicted Peak Ventilation 51.4 L/min Peak Respiratory Rate: 41 bpm Breathing [place]: 43.1% Oxygen Pulse: 13ml/beat, 122% predicted Oxygen Sat: 94% Conclusion: This was a maximal effort study based on a peak RER of >1.0 and peak heart rate of >85%. ??The patient demonstrated a/an normal exercise capacity based on peak VO2 of 16.1 ml/kg/min (86% predicted). ??There was a normal cardiovascular response based on a normal ventilatory threshold, normal augmentation in blood pressure, O2 pulse, and normal ventilatory efficiency (overall VE/VCO2 slope). HR augmentation was blunted perhaps due to beta montse effect. ??The electrocardiogram displayed no myocardial ischemia and no arrhythmia. There were no pulmonary limitations based on normal baseline PFTs (FVC was just below 80% predicted), respiratory rate, breathing reserve and oxygen saturation during exercise. Karel Landrum MD, [facility] Section of Cardiovascular Medicine [facility] Flask Makerfront end loader operator [facility] Procedure Note Karel Landrum MD - 06/28/2021 CARDIOPULMONARY STRESS TEST (CPET) TEST RESULTS Indication for the test: FATIMA Heart Rate Rest: 71 bpm Peak: 120 bpm; 70% predicted At VT: 89 bpm 1 minute of recovery: 99 bpm Blood Pressure Rest: 132/90 mmHg Peak: 168/80 mmHg CPET Test Protocol: 10 watt protocol Test Duration: 16:22 min Reason for termination: SOB Work rate at peak exercise: 96 W METS at peak exercise: 4.6; 85% predicted Cardiovascular At Peak Exercise: - VO2: 1573 mL/min - VO2: 16.1 ml/kg/min; 86% predicted At Ventilatory Threshold (VT): - VO2: 872 mL/min - VO2: 8.9 ml/kg/min; 55% of peak VO2 VE/VCO2 [place]: 26 Peak RER: 1.2 (>1.1 diagnostic) Pulmonary Spirometry: - FEV1: 2.37 L; 87% predicted - FVC: 2.71 L; 78% predicted - FEV1/FVC: 109% predicted Peak Ventilation 51.4 L/min Peak Respiratory Rate: 41 bpm Breathing [place]: 43.1% Oxygen Pulse: 13ml/beat, 122% predicted Oxygen Sat: 94% Conclusion: This was a maximal effort study based on a peak RER of >1.0 and peak heartrate of >85%. The patient demonstrated a/an normal exercise capacitybased on peak VO2 of 16.1 ml/kg/min (86% predicted). There was a normalcardiovascular response based on a normal ventilatory threshold, normalaugmentation in blood pressure, O2 pulse, and normal ventilatoryefficiency (overall VE/VCO2 slope). HR augmentation was blunted perhapsdue to beta montse effect. The electrocardiogram displayed no myocardialischemia and no arrhythmia. There were no pulmonary limitations based onnormal baseline PFTs (FVC was just below 80% predicted), respiratory rate,breathing reserve and oxygen saturation during exercise. Karel Landrum MD, [facility] Section of Cardiovascular Medicine [facility] Flask Makerfront end loader operator Replaced By [facility] Gerardo Richter MD CARDIAC SERVICES ORD ERABLES documented in this encounter Visit Diagnoses Diagnosis Pulmonary embolism, unspecified chronicity, unspecified pulmonary embolism type, unspecified whether acute cor pulmonale present Anti-phospholipid antibody syndrome Primary hypercoagulable state FATIMA (dyspnea on exertion) Other dyspnea and respiratory abnormality documented in this encounter Care Teams Saw Cleaner Relationship Specialty Start Date End Date Mckenna Genao, SUELLEN [address] [place] [address] PCP - General Family Medicine 05/07/17 08/08/21 documented as of this encounter
--- OUTSIDE RECORDS SUMMARY | 2023-11-04 15:12 | XMS_ITS | Encounter Summary ---
[place] [address] Care Team Providers Care Bean Picker Name Role Phone Briana Timmons APRN Primary Care Provider [phone] Encounter Details Date Type Department Care Team (Latest Contact Info) Description 10/28/2021 3:00 AM EDT Anti-Coag Telephone Visit [facility] [place] [phone] Shasta Delaney, [facility] Antiphospholipid antibody syndrome; Aortic valve [...] * Shasta Delaney [facility] - 10/28/2021 3:00 AM EDT Images from the original note were not included. Anticoagulation Therapy Note Anticoagulation Summary As of 10/28/2021 INR goal: 2.5-3.5 TTR: 36.9 % (6 mo) INR used for dosin.4 (10/28/2021) Warfarin maintenance plan: 7.5 mg (5 mg x 1.5) every Thu, Thu, Thu; 5 mg (5 mg x 1) all other days Weekly warfarin total: 42.5 mg Plan last modified: Shasta Delaney, [facility] (10/21/2021) Next INR check: 11/04/2021 Priority: 1 Week Target end date: Indefinite Indications Antiphospholipid antibody----- use antiXa level to dose heparin. 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] Pulmonary embolism unspecified chronicity unspecified pulmonary embolism type unspecified whether acute cor pulmonale present [I26.99] Anticoagulation Episode Summary INR check location: Home Draw Preferred lab: [facility] Send INR reminders to: [facility] Comments: Home Monitor [phone] (M) Anticoagulation Care Providers Provider Role Specialty Phone number Gerardo Richter MD Responsible Cardiology [phone] Patient Assessment Service Type: INR Test Result [...] Bruising, Other complaints Warfarin Therapy Instructions October 2021 Details Thu Sat 1 2 3 4 5 6 7 8 9 10 11 12 13 14 15 16 17 18 19 20 21 22 23 24 25 5 mg See details 26 7.5 mg 27 5 mg 28 7.5 mg 29 5 mg 30 5 mg 31 7.5 mg Date Details 10/28 This INR check How to take your warfarin dose To take: 5 mg Take 1 of the 5 mg tablets. To take: 7.5 mg Take 1.5 of the 5 mg tablets. Warfarin Therapy Instructions November 2021 Details Thu Sat 1 5 mg 2 3 4 5 6 7 8 9 10 11 12 13 14 15 16 17 18 19 20 21 22 23 24 25 26 27 28 29 30 31 Date Details No additional details Date of next INR: 11/04/2021 How to take your warfarin dose To take: 5 mg Take 1 of the 5 mg tablets. Description 10/28/21: INR in range. Continue on current [...] Visit [facility] [place] [place] [address] documented as of this encounter Visit Diagnoses Diagnosis Antiphospholipid antibody syndrome Primary hypercoagulable state Aortic valve prosthesis present Heart valve replaced by other means Pulmonary embolism, unspecified chronicity, unspecified pulmonary embolism type, unspecified whether acute cor pulmonale present documented in this encounter Care Teams Bean Picker Relationship Specialty Start Date End Date Briana Timmons, RUBBER BOOTS AND SHOES REPAIRER [address] [place] [address] PCP - General Family Medicine 08/09/21 documented as of this encounter
--- OUTSIDE RECORDS SUMMARY | 2023-11-04 15:12 | XMS_ITS | Encounter Summary ---
[place] [address] Care Team Providers Care Station Usher Name Role Phone Briana Timmons APRN Primary Care Provider [phone] Encounter Details Date Type Department Care Team (Latest Contact Info) Description 09/04/2021 3:00 AM EDT Anti-Coag Telephone Visit [facility] [place] [id number] Shasta Delaney, [facility] Antiphospholipid antibody syndrome; Aortic valve prosthesis [...] Progress Notes * Shasta Delaney [facility] - 09/04/2021 3:00 AM EDT Images from the original note were not included. Anticoagulation Therapy Note Anticoagulation Summary As of 09/04/2021 INR goal: 2.5-3.5 TTR: 35.7 % (5.9 mo) INR used for dosin.5 (09/04/2021) Warfarin maintenance plan: 5 mg (5 mg x 1) every Mon; 7.5 mg (5 mg x 1.5) all other days Weekly warfarin total: 50 mg Plan last modified: Tucker Lane RN (08/05/2021) Next INR check: 09/09/2021 Priority: 1 Week Target end date: Indefinite Indications Antiphospholipid antibody----- use antiXa level to dose heparin. 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] Pulmonary embolism unspecified chronicity unspecified pulmonary embolism type unspecified whether acute cor pulmonale present [I26.99] Anticoagulation Episode Summary INR check location: Home Draw Preferred lab: [facility] Send INR reminders to: [facility] Comments: Home Monitor [phone] (M) Anticoagulation Care Providers Provider Role Specialty Phone number Gerardo Richter MD Responsible Cardiology [phone] Patient Assessment Service Type: INR Test Result [...] Bruising, Other complaints Warfarin Therapy Instructions September 2021 Details Sun Thu Sat 1 7.5 mg See details 2 7.5 mg 3 7.5 mg 4 7.5 mg 5 7.5 mg 6 5 mg 7 8 9 10 11 12 13 14 15 16 17 18 19 20 21 22 23 24 25 26 27 28 29 30 Date Details 09/04 This INR check Date of next INR: 09/09/2021 How to take your warfarin dose To take: 5 mg Take 1 of the 5 mg tablets. To take: 7.5 mg Take 1.5 of the 5 mg tablets. Description 5/23 INR in range today, spoke with Cecilia, denies any changes, maintain current dose, recheck 1 week. 08/19 INR in range. Continue on current dose of warfarin and retest INR again in 1 week. Left ALEXANDER espinal that we are closed . 08/12 INR in range. Continue on current dose of warfarin and retest INR again in 1 week. Spoke with Cecilia 5 INR high today, spoke with Cecilia, reports starting sucralfate 08/04, decrease weekly dose 5%, recheck 1 week. 07/29/21: INR trending up but still slightly low. Cecilia will be resuming Carafate next week and willneed a weekly dose increase when she does. She is also adding spinach to her diet, for a consistentdaily in take of vitamin K. I will increase weekly dose 10% this week given the addition of VitaminK to her diet. Test INR in 1 week. 07/22/21: INR below range. Increase dose 5% and test INR in 1 week. 07/15/21: INR above range. Decrease dose 10% and test INR in 1 week. 07/08/21: INR sightly above range. Cecilia finished Carafate this weekend. Decrease weekly dose 5% and test INR in 1 week. 07/02/21: INR in range. Continue on current dose of warfarin and retest INR again in 1 week. 06/24/21: INR above range. Decrease dose 9% and test INR in 1 week. 06/17/21: INR in range. Continue on current dose of warfarin and retest INR again in 1 week. Confirmed patient is still taking Carafate. 06/10/21: INR subtherapeutic. Increase weekly does 9.5% and test INR in 1 month. 06/03/21: INR trending up and only slightly below range. Continue on current dose of warfarin and retest INR again in 1 week. 05/28/21: INR below range and trending down despite 6% increase given last week. Drop in INR likely due to interaction with Carafate. Increase weekly dose 17% in addition to a one time 6% increase today in an effort to overcome this interaction. Test INR in 6 days. No changes in health, Cecilia confirmed current dose and she denies missed doses. documented in this encounter Plan of Treatment Upcoming Encounters Date Type Department Care Team (Late st Contact Info) Description 11/11/2023 3:00 AM EDT Anti-Coag Telephone Visit [facility] [place] [phone] documented as of this encounter Visit Diagnoses Diagnosis Antiphospholipid antibody syndrome Primary hypercoagulable state Aortic valve prosthesis present Heart valve replaced by other means Pulmonary embolism, unspecified chronicity, unspecified pulmonary embolism type, unspecified whether acute cor pulmonale present documented in this encounter Care Teams Station Usher Relationship Specialty Start Date End Date Briana Timmons, [employer] [address] [place] [address] PCP - General Family Medicine 08/09/21 documented as of this encounter
--- OUTSIDE RECORDS SUMMARY | 2023-11-04 15:12 | XMS_ITS | Encounter Summary ---
[place] [address] Care Team Providers Care Embroidery Worker Name Role Phone Briana Timmons APRN Primary Care Provider [phone] Encounter Details Date Type Department Care Team (Latest Contact Info) Description 09/23/2021 3:00 AM EDT Anti-Coag Telephone Visit [facility] Centralized [place] [phone] Shasta Delaney, [facility] Antiphospholipid [...] Shasta Delaney [facility] - 09/23/2021 3:00 AM EDT Images from the original note were not included. Anticoagulation Therapy Note Anticoagulation Summary As of 09/23/2021 INR goal: 2.5-3.5 TTR: 35.0 % (6 mo) INR used for dosin.1 (09/23/2021) Warfarin maintenance plan: 5 mg (5 mg x 1) every Mon, Yaritza; 7.5 mg (5 mg x 1.5) all other days Weekly warfarin total: 47.5 mg Plan last modified: Shasta Delaney [facility] (09/23/2021) Next INR check: 09/30/2021 Priority: 1 Week Target end date: Indefinite Indications Antiphospholipid antibody----- use antiXa level to dose heparin. 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 Comments: Home Monitor [phone] (M) Anticoagulation Care Providers Provider Role Specialty Phone number Gerardo Richter MD Responsible Cardiology [phone] Patient Assessment Service Type: INR Test Result INR Result: Out of Range Clinical Outcomes Negatives: Major bleeding event, Thromboembolic event, Anticoagulation-related hospital admission, Anticoagulation-related ED visit Patient Findings Positives: Change in diet/appetite (decrased) Negatives: Upcoming Travel, Planning or Currently , Recent Fall, Signs/symptoms of thrombosis, Signs/symptoms of bleeding, Laboratory test error suspected, Change in health, Change in alcoholuse, Change in activity, Upcoming invasive procedure, Emergency department visit, Upcoming dental procedure, Missed doses, Extra doses, Change in medications, Hospital admission, Bruising, Other complaints Warfarin Therapy Instructions September 2021 Details Sun Mon Thu Wed Yaritza Fri Sat 1 2 3 4 5 6 7 8 9 10 11 12 13 14 15 16 17 18 19 20 5 mg See details 21 7.5 mg 22 7.5 mg 23 5 mg 24 7.5 mg 25 7.5 mg 26 7.5 mg 27 5 mg 28 29 30 Date Details 09/23 This INR check Date of next INR: 09/30/2021 How to take your warfarin dose To take: 5 mg Take 1 of the 5 mg tablets. To take: 7.5 mg Take 1.5 of the 5 mg tablets. Description 09/23/21: INR above range. Decrease weekly dose [...] Reviewed sxs that require immediate medical attention. 08/26 INR in range today, spoke with Cecilia, denies any changes, maintain current dose, recheck 1 week. 08/19 INR in range. Continue on current dose of warfarin and retest INR again in 1 week. Left kylie that we are closed . 08/12 INR in range. Continue on current dose of warfarin and retest INR again in 1 week. Spoke with Cecilia 08/05 INR high today, spoke with Cecilia, reports [...] Telephone Visit [facility] [place] [address] documented as of this encounter Visit Diagnoses Diagnosis Antiphospholipid antibody syndrome Primary hypercoagulable state Aortic valve prosthesis present Heart valve replaced by other means Pulmonary embolism, unspecified chronicity, unspecified pulmonary embolism type, unspecified whether acute cor pulmonale present documented in this encounter Care Teams Embroidery Worker Relationship Specialty Start Date End Date Briana Timmons, [place] [address] PCP - General Family Medicine 08/09/21 documented as of this encounter
--- OUTSIDE RECORDS SUMMARY | 2023-11-04 15:12 | XMS_ITS | Encounter Summary ---
[place] [address] Care Team Providers Care Accounting Instructor Name Role Phone Briana Timmons APRN Primary Care Provider [phone] Reason for Visit * Consultation (Routine) - Closed Specialty Diagnoses / Procedures Referred By Edgar warren Referred To Contact Rheumatology Diagnoses Systemic lupus erythematosus, unspecified SLE type, unspecified organ involvement status Briana Timmons APRN [address] [place] [address] [facility] Rheumatology [address] [place] [phone] Referral ID Status Reason Start Date Expiration Date V isits Requested Visits Authorized [id number] Closed Consult, Test & Treat PCP Updated and/or Approved 08/09/2021 08/09/2022 6 6 Encounter Details Date Type Department Care Team (Late st Contact Info) Description 09/26/2021 1:30 PM EDT Office [place] [address] Brad Baugh MD [facility] [place] [address] Osteoporosis, unspecified osteoporosis type, unspecified pathological fracture presence; Systemic lupus erythematosus with other organ involvement, unspecified SLE type; Hypothyroidism, unspecified type; Right sided sciatica; High risk medication use Social History Tobacco [...] Sign Reading Time Taken Comments Blood Pressure 133/64 09/26/2021 1:14 PM EDT Pulse 59 09/26/2021 1:14 PM EDT Temperature 36.1 ??C (97 ??F) 09/26/2021 1:14 PM EDT Respiratory Rate 24 09/26/2021 1:14 PM EDT Oxygen Saturation 95% 09/26/2021 1:14 PM EDT Inhaled Oxygen Concentration - - Weight 99.7 kg (219 lb 12.8 oz) 09/26/2021 1:14 PM EDT Height 162.6 cm (5' 4) 09/26/2021 1:14 PM EDT Body Mass Index 37.73 09/26/2021 1:14 PM EDT documented in this encounter Patient Instructions * Patient Instructions* Brad Baugh MD - 09/26/2021 2:15 PM EDT Get labs today at 3L. Call or [facility] for results if you don't hear from us by next week. Further recommendations based on test results. You should hear from [facility] about MRI of lumbar spine. Go to see orthopedics about the knees. Start MTX 0.4 ml a week. Rx sent into [facility]. Start folic acid 1 mg a day as well. Follow up in 6 months. Call if problems or concerns. documented in this encounter Progress Notes * Oxana Bone, CORN HUSKER - 09/26/2021 1:30 PM EDT Rheumatology Progress Note Lupus Clinic Chief Complaint: Cecilia Dumont is a 51 y.o. year old female seen in the Lupus Clinic for follow up for SLE, APS. She is a former patient of Dr. Shanelle Lozada, Dr. Chandler, and Dr. Kalli Lee. Last visit 10/2018. Rheum History: -SLE dx at 21yo. w/discoid rash, arthritis, oral and nasal ulcers, pleuro pericarditis, Raynaud's phenomena -APS associated with lupus causing TIA (diplopia and right handed numbness), CVA in distant past, miscarriages, migraine headaches with aura and thrombocytopenia. hx prison anticoagulation with heparin or coumadin -Prior tx for osteoporosis while on prednisone with Actonel and calcium. Actonel DC'd 10/2008. -Cardiomyopathy, probably secondary to lupus. Endomyocardial biopsy negative for viral changes, changes of hydroxychloroquine myopathy or other specific etiology. Recovery of ejection fraction by echocardiogram 2005. Cardiac cath 03/2012- normal coranary arteries, Ef 64%, ?peicardial constriction given equalization of Rt and Lt sided pressures - 05/2017 Aortic valve replacement, hospitalized s/p this procedure. Complicated by gross hematuria,cysto normal, no more episodes of bleeding ?? Previous Therapies: HCQ - current, BID for years coumadin - current Methotrexate - (w/folic acid) in 07/2018, cx to 15mg SQ 10/2018 Rituxan - 05/14 - 04/15 cyclophosamide Steroids Tylenol NSAIDs - contraindicated d/t blood thinners History of Present Illness: PMH includes bilat TKA, JAN, osteoporosis, hyperlipemia, HTN, PE, cerebral infarction (age 21), aortic valve prosthesis (mechanical). CC joint pain: knees - hx bilat TKA, has not seen ortho about the knees. Feels like she is retaining fluid. Hands (MCPs) and wrists. + AM stiffness. Has noticed deformities in her fingers. Takes her rings off at night due to an incident where her hands swelled so much that she almost had to cut rings off. Shoulders-bother her but she thinks it has to do with stress. Fibromyalgia has been mentioned in the past. +sciatic nerve pain - when she stands up, gets pain from R lower back all the way to her knee and she needs to sit down. At times has LBP. R leg feels weak. Occasionally has R foot numbing. Has been happending since Apr 2021. Was previously treated with methotrexate Rx from Dr. Chandler. He started her on 10 mg/week but she had GI symptoms. Dr. Ceballos then saw patient and changed the route to subcutaneous and increase the dose to 50 mg/week. Patient is not completely sure why she stopped taking methotrexate. Thinks it has something to do with when she went to the hospital ([place], [place] ) years ago for kidney stones. Reports that methotrexate did help with her joint pains when she was on it. Her PCP Briana Timmons has talked about taking her off of hydroxychloroquine but she does not want to do this. Reports that she keeps up with her yearly eye exams, most recent was March 2021. States that she had X3 miscarriages and was then put on Coumadin. Still on Coumadin. Reports history of PE. Followed by cardiology. Sleep -compliant with CPAP, but has been struggling with the machine recently. They sent her a new mask which did not help. Now they are sending her new tubing. Last sleep study at end of 2018, reports severe sleep apnea. +brain fog. + dry eyes - uses drops. +dry mouth - uses biotene. +Raynaud's - denies ulcers or gangrene. Has nothad COVID. Followed by cardiology. 06/2021 note: Admission 03/2020 for pleuritic CP??and??SOB, initially concerning for PE, which had??been ruled out, mildly abnormal stress test with??inferior wall motion??abnormality, although normal CTA coronaries. Work-up has been negative with negative CT coronary, and recent CPET was quite unremarkable for cardiac or pulmonary limitation. most likely that SOB is d/t deconditioning. Plan: increase exercise slowly Covid Vaccine Status: X2, Moderna Rheumatic History (x) means positive Heart Failure Iritis Dactylitis Pleuritis X Pericarditis X Oral / Nasal Ulcers X PE/DVT X Spontaneous X Discoid SLE X STD Raynaud???s X Psoriasis Seizures Anemia Leucopenia Thrombocytopenia Psychosis from a medical condition Pertinent History: -Parvovirus infection 2003. -Endometrial ablation for menometrorrhagia exacerbated by heparin. -hx ARF (secondary to acute tubular necrosis from low flow state and cardiomyopathy - resolved) -Alveolar hemorrhage associated with pulmonary edema and Lovenox use - resolved. -Atrial septal defect. 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 -hx Fractured and infected teeth. ??-migraines - hx injections in neck that helped. ROS: General (-)fevers, (-)chills, (-)night sweats, (+)wt gain, wonders about thyroid (+)fatigue Head and Neck (-)headache, (-)dizziness, (-)tinnitus, (-)epistaxis, (-)hair loss, (-)lymphadenopathy Mouth (+)dry mouth, (-)mouth ulcers, (-)jaw claudication Eyes (-)vision change, (+)dry eyes, (-)photosensitivity, (-)uveitis CVS (-)chest pain, (-)palpitations, (-)edema, (-)claudication Pulm (-)shortness of breath, (-)wheezes, (-)cough Hematologic (-)anemia, (-)bruising, (+)blood clots GI (-)nausea (-)vomiting, (-)diarrhea, (-)abdominal pain, (-)hematochezia, (- )change in appetite, (-)reflux, (-)dysphagia (-)hematuria, (-)dysuria, (-)frequency MS (+)joint pain, (+) joint stiffness, (-)paralysis, (+)hx of arthritis Endo (-)thyroid disorders, (-)diabetes, (-)temperature intolerance Neuro (-) neuropathy, (+)numbness, (+)paresthesias, (+)weakness, (-)gait instability Skin (+)Raynaud's,(-) ulcers, (-)rash, (-)fingernail changes, (-)dactylitis Psych (-) depression, (-)anxiety, (+)sleep disturbances Problem List: Patient Active Problem List Diagnosis Date Noted ??? [address] Alegre with severe AI, SLE, and APLS admitted for conversion to heparin prior to AVR. Course c/b gross hematuria, CHARLES, cp, anxiety. 05/17/2017 ??? Chest pain-- normal cors by cath in 2004 and 201104/01/2012 ??? Antiphospholipid antibody----- use antiXa level to dose heparin. 11/27/2010 ??? Dilated cardiomyopathy--- noted in 2003, improved 10/21/2010 ??? JAN on CPAP 03/22/2012 ??? Hyperlipemia 03/22/2012 ??? Systemic lupus erythematosus 11/27/2010 ??? Hypertension 10/21/2010 ??? Depression and anxiety ??? Pulmonary embolism, unspecified chronicity, unspecified pulmonary embolism type, unspecified whether acute cor pulmonale present 02/19/2021 ??? Aortic valve prosthesis present 03/20/2020 ??? Pulmonary embolism 03/18/2020 ??? Gross hematuria--- while on heparin 05/23/2017 ??? Osteoporosis 04/01/2012 ??? H/O total knee replacement 04/01/2012 ??? Cerebral infarction---at age 21 03/22/2012 ??? Migraine 03/22/2012 Allergies: Allergies Allergen Reactions ??? Tramadol Upset stomach Past Medical History: Past Medical History: Diagnosis Date ??? Antiphospholipid antibody syndrome ??? Anxiety ??? Cerebrovascular accident ??? Chest pain 04/01/2012 ??? CHF (congestive heart failure) ??? Depression ??? FATIMA (dyspnea on exertion) 04/01/2012 ??? H/O total knee replacement 04/01/2012 ??? Hypertension ??? Migraine ??? JAN (obstructive sleep apnea) ??? Osteoporosis 04/01/2012 ??? Osteoporosis ??? SLE (systemic lupus erythematosus) Past Surgical History: Past Surgical History: Procedure Laterality Date ??? DILATION AND CURETTAGE OF UTERUS ??? JOINT REPLACEMENT ??? LEEP ??? MOUTH SURGERY ??? PRO REPLACEMENT PROSTHETIC AORTIC VALVE OPEN W CARDIOPULMONARY BYPASS HOMOGRF/STENT N/A 05/25/2017 @REPLACE AORTIC VALVE, OPEN, W\CPB, W\PROSTHETIC VALVE (WRVU 41.32) performed by Kuldeep Conner MD at [facility] MAIN OR ??? TUBAL LIGATION ??? TUBAL LIGATION Family History: Family History Problem Relation Age of Onset ??? Coronary Artery Disease Father Biological father Health Care Maintenance Date Next Due Influenza vaccine Pneumonia vaccine TB Screen (PPD/QGA) DXA HCQ Eye Exam 03/2021 03/2022 Viral Hepatitis Screen Social History: Social History Socioeconomic History ??? Marital status: Spouse name: Not on file ??? Number of children: Not on file ??? Years of education: Not on file ??? Highest education level: Not on file Occupational History ??? Not on file Tobacco Use ??? Smoking status: Former Smoker Quit date: 10/22/2007 Years since quittin.9 ??? Smokeless tobacco: Never Used Substance and Sexual Activity ??? Alcohol use: No ??? Drug use: No ??? Sexual activity: Not on file Comment: Deferred Other Topics Concern ??? Not on file Social History Narrative ??? Not on file Social Determinants of Health Financial Resource Strain: Not on file Food Insecurity: Not on file Transportation Needs: Not on file Physical Activity: Not on file Housing Stability: Not on file Physical Exam BP 133/64 (BP Location (NBP): Right arm, Patient Position: Sitting, BP Cuff Sizes: Large Adult (32-43 cm)) Pulse 59 Temp 36.1 ??C (97 ??F) (Temporal) Resp 24 Ht 162.6 cm (5' 4) Wt 99.7 kg (219 lb 12.8 oz) SpO2 95% BMI 37.73 kg/m?? Gen: awake, alert and oriented x 3, in no distress. well nourished Skin: warm and dry, no rheumatologic rashes. Head and Neck: no cervical or submandibular adenopathy Mouth: dry mucous membranes, no oral ulcers Eyes: normal sclerae, PERRL Heart: regular rate and rhythm, valve click present. no murmurs, rubs or gallops. No edema present.+2 radial and pedal pulses. Lungs: no signs of respiratory distress, lung sounds are clear in all lobes bilaterally without rales, ronchi, or wheezes Abdominal: soft, non-tender MSK: Hand - tenderness and swelling MCPs. no warmth. normal ROM. Wrist - tenderness and swelling, no warmth. normal ROM Elbow - no tenderness, swelling, or warmth. normal ROM Shoulder - no tenderness, swelling, or warmth. normal ROM Neck - no tenderness, normal ROM Spine - no tenderness Hip - no tenderness, normal ROM. Normal straight leg raises. Sit to stand normal. Strength normal. Knee - no tenderness, swelling, or warmth. crepitus noted. Strength normal. Ankle - no tenderness, normal ROM Feet - no tenderness, normal ROM. Strength normal. Neuro: Strength 5/5 throughout unless otherwise noted. Sensation to light touch is grossly normal throughout. Psych: appropriate mood and affect. good eye contact. answers questions appropriately Past Lab Studies: WBC Date Value Ref Range Status 09/26/2021 6.8 4.0 - 9.5 x10(3)/mcL Final RBC Date Value Ref Range Status 09/26/2021 4.33 4.00 - 5.21 x10(6)/mcL Final Hematocrit Date Value Ref Range Status 09/26/2021 40.4 35.7 - 45.8 % Final Hemoglobin Date Value Ref Range Status 09/26/2021 14.0 11.7 - 15.5 g/dL Final MCV Date Value Ref Range Status 09/26/2021 93.3 82.6 - 94.4 fL Final MCH Date Value Ref Range Status 09/26/2021 32.3 (H) 27.1 - 32.0 pg Final Platelets Date Value Ref Range Status 09/26/2021 264 145 - 357 x10(3)/mcL Final Chemistry Component Value Date/Time NA 140 09/26/2021 1442 K 4.0 09/26/2021 1442 CL 103 09/26/2021 1442 CO2 25 09/26/2021 1442 BUN 15 09/26/2021 1442 CREATININE 0.80 09/26/2021 1442 Component Value Date/Time CALCIUM 9.2 09/26/2021 1442 ALKPHOS 109 (H) 09/26/2021 1442 AST 23 09/26/2021 1442 ALT 21 09/26/2021 1442 BILITOT 0.4 09/26/2021 1442 Assessment/Plan: I discussed the following diagnosis/diagnoses and differential diagnoses in detail with patient, including treatment options and patient agrees with the plan outlined below. SLE, osteoporosis, hypothyroidism, right-sided sciatica, high risk medication use - Patient presents today to the lupus clinic with long history of SLE and SLE associated issues. At this time, her lupus is stable and her chief complaint today was joint pain. Her biggest issues are her knees, hands/MCPs, and wrists. She reports that she has had success with methotrexate treatment in the past and she would like to restart this medication. We will update lab work today. Pending labs, start methotrexate subcutaneous (due to previous GI issues with p.o.) and folic acid. We discussed that methotrexate should help her hands and wrist pain but will not likely help her knee pain. She has a history of bilateral total knee replacements and she needs to follow-up with orthopedics about her knees. Herother issue is her sciatic nerve pain on the right. We will get a lumbar MRI and pending results may send to pain and spine. She prefers to get MRI at [facility]. She is up-to-date with her eye exams and she can continue her HCQ as prescribed. We will see her for follow-up in 6 months, sooner if needed. Further changes pending clinical course. ?? Get labs today at 3L. ?? Call or [facility] for results if you don't hear from us by next week. ?? Further recommendations based on test results. ?? You should hear from [facility] about MRI of lumbar spine. ?? Go to see orthopedics about the knees. ?? Start MTX 0.4 ml a week. Rx sent into [facility]. ?? Start folic acid 1 mg a day as well. ?? Continue HCQ ?? Follow up in 6 months. ?? Call if problems or concerns. Nova Bone, MSN, CORN HUSKER, CAREER GUIDANCE COUNSELOR-C Rheumatology Department Orders Placed This Encounter Procedures ??? MRI Lumbar Spine wo Contrast (Generic) ??? CBC (with Diff) ??? Comprehensive metabolic panel (non-fasting) ??? C3 Complement ??? C4 Complement ??? Complement, Total ??? Sedimentation rate ??? WADE ??? Extractable Nuclear Antigen (MYRA) Ab ??? DNA Antibody (Double-Stranded) ??? Urinalysis with reflex Culture ??? Protein/Creatinine Ratio, urine ??? Vitamin D, 25-Hydroxy ??? TSH ??? Hepatitis B Surface Antibody ??? Hepatitis B Surface Antigen ??? Hepatitis B Core Antibody, Total ??? Hepatitis C Antibody ??? Hemogram ??? Differential, Automated ??? Urinalysis Microscopic Exam - Patient was given the necessary information on the condition and instructed to contact clinic or go to ER if symptoms continue or worsen. - After Visit Summary was either printed and given to the patient or provided via the patient portal at the patient's request. LUPUS CLINIC ATTENDING ADDENDUM The patient's history was reviewed, and I interviewed and examined the patient with Nova Bone, the rheumatology CORN HUSKER. I agree with her summary, findings, and plan. Patient well-known to rheumatology clinic. Doing reasonably well on just Plaquenil, considering past issues. Three major problems: SLE- related inflammatory arthralgias for which we will resume MTX; chronic mechanical knee painpost-bilateral TKRs for which she will see orthopedics; and right-sided sciatica for which we will obtain an MRI of the lumbar spine near home. In the meantime, we'll obtain baseline lab work here today. Follow up in 6 months. Brad Baugh MD Staff Family Sociologist documented in this encounter Plan of Treatment Upcoming Encounters Date Type Department Care Team (Late st Contact Info) Description 11/11/2023 3:00 AM EDT Anti-Coag Telephone Visit [facility] [place] [address] documented as of this encounter Procedures Procedure Name Priority Date/Time Associated Diagnosis Comments URINALYSIS MICROSCOPIC EXAM Routine 09/26/2021 2:48 PM EDT HC PROTEIN, QUANTITATIVE, URINE Routine 09/26/2021 2:48 PM EDT Systemic lupus erythematosus with other organ involvement, unspecified SLE type URINALYSIS WITH REFLEX CULTURE Routine 09/26/2021 2:48 PM EDT Systemic lupus erythematosus with other organ involvement, unspecified SLE type HC PCH EXTRACTABLE NUCLEAR ANTIGEN Routine 09/26/2021 2:42 PM EDT Systemic lupus erythematosus with other organ involvement, unspecified SLE type HC PCH DNA AB DS ([place]) Routine 09/26/2021 2:42 PM EDT Systemic lupus erythematosus with other organ involvement, unspecified SLE type HEMOGRAM Routine 09/26/2021 2:42 PM EDT Systemic lupus erythematosus with other organ involvement, unspecified SLE type DIFFERENTIAL, AUTOMATED Routine 09/26/2021 2:42 PM EDT Systemic lupus erythematosus with other organ involvement, unspecified SLE type HC HEPATITIS C ANTIBODY Routine 09/26/2021 2:42 PM EDT High risk medication use HC HEPATITIS B CORE AB Routine 09/26/2021 2:42 PM EDT High risk medication use HC VITAMIN D TOTAL-25 HYDROXY Routine 09/26/2021 2:42 PM EDT Osteoporosis, unspecified osteoporosis type, unspecified pathological fracture presence HC HEPATITIS B SURFACE AB Routine 09/26/2021 2:42 PM EDT High risk medication use HC HEPATITIS B SURFACE AG Routine 09/26/2021 2:42 PM EDT High risk medication use HC ESR-SEDIMENTATION RATE, BLOOD Routine 09/26/2021 2:42 PM EDT Systemic lupus erythematosus with other organ involvement, unspecified SLE type HC VENIPUNCTURE Routine 09/26/2021 2:42 PM EDT Systemic lupus erythematosus with other organ involvement, unspecified SLE type HC CH50 Routine 09/26/2021 2:42 PM EDT Systemic lupus erythematosus with other organ involvement, unspecified SLE type HC COMPLEMENT,C3 SERUM Routine 09/26/2021 2:42 PM EDT Systemic lupus erythematosus with other organ involvement, unspecified SLE type HC COMPLEMENT C4, PLASMA Routine 09/26/2021 2:42 PM EDT Systemic lupus erythematosus with other organ involvement, unspecified SLE type HC PCH ANATITRE (ANDPATTERN) Routine 09/26/2021 2:42 PM EDT Systemic lupus erythematosus with other organ involvement, unspecified SLE type HC THYROID STIMULATING HORMONE, SERUM Routine 09/26/2021 2:42 PM EDT Hypothyroidism, unspecified type COMPREHENSIVE METABOLIC PANEL (NON-FASTING) Routine 09/26/2021 2:42 PM EDT Systemic lupus erythematosus with other organ involvement, unspecified SLE type documented in this encounter Results * Urinalysis Microscopic Exam (09/26/2021 2:48 PM EDT) RBC UA 2 0 - 4 /HPF [facility] WBC UA 2 0 - 5 /HPF [facility] Squam Epith UA 2 <=4 /HPF [facility] Urine NS 09/26/2021 2:48 PM EDT 09/26/2021 2:57 PM EDT Narrative Resulting Agency Comment Spec In Lab Brad Baugh MD URINE ORDERABLES Performing Organization Address City/[facility]/ZIP Co de Phone Number [facility] [place] [address] * (ABNORMAL) Protein/Creatinine Ratio, urine (09/26/2021 2:48 PM EDT) U Creatinine 62 mg/dL [facility] U Protein Ran 31(H) 0 - 12 mg/dL [facility] Prot/Cre Ratio 0.5 ratio [facility] Urine 09/26/2021 2:48 PM EDT 09/26/2021 2:58 PM EDT Narrative Resulting Agency Comment Spec In Lab Brad Baugh MD URINE ORDERABLES Performing Organization Address City/[facility]/ZIP Co de Phone Number [facility] [place] [address] * (ABNORMAL) Urinalysis with reflex Culture (09/26/2021 2:48 PM EDT) Glucose UA Negative Negative mg/dL [facility] Protein UA 30(A) Negative mg/dL [facility] Bilirubin UA Negative Negative mg/dL [facility] Comment: Clinical correlation required for positive Urine Bilirubin results as false positive may occur with some drugs and drug related products. If a false positive is suspected a serum total bilirubin should be considered if clinically indicated. Urobilinogen UA Normal Normal mg/dL [facility] pH UA 6.5 5.0 - 8.0 [facility] Blood UA Negative Negative mg/dL [facility] Ketones UA Negative Negative mg/dL [facility] Nitrite UA Negative Negative [facility] Leukocytes UA Trace(A) Negative [facility] Appearance UA Clear Clear [facility] Spec [place] UA 1.015 1.005 - 1.030 [facility] Color UA Yellow Yellow [facility] Culture Reflexed No [facility] Urine NS 09/26/2021 2:48 PM EDT 09/26/2021 2:57 PM EDT Narrative Resulting Agency Comment Spec In Lab Brad Baugh MD URINE ORDERABLES [facility] [place] [address] * Differential, Automated (09/26/2021 2:42 PM EDT) Neutrophils % 55.2 % [facility] Neutr Abs (ANC) 3.76 1.70 - 6.10 x10(3)/[facility] Lymphocytes % 29.5 % [facility] Lymphocytes Abs 2.0 0.9 - 3.2 x10(3)/[facility] Monocytes % 10.3 % [facility] Monocyte Abs 0.7 0.3 - 0.9 x10(3)/[facility] Eosinophils % 3.5 % [facility] Eosinophils Abs 0.2 0.0 - 0.4 x10(3)/[facility] Basophils % 1.2 % [facility] Basophils Abs 0.1 0.0 - 0.1 x10(3)/[facility] Immature Gran % 0.30 % [facility] Comment: Immature granulocytes(IG's)percentage and absolute count will include metamyelocytes, myelocytes, and promyelocytes. Blood smears from CBCs yielding IG's will be scanned manually for concordance. If this scan disagrees with the automated IG or if promyelocytes are noted, a manual differential will be performed. [place] Gran Abs 0.02 0.00 - 0.04 x10(3)/[facility] Blood 09/26/2021 2:42 PM EDT 09/26/2021 2:54 PM EDT Narrative Resulting Agency Comment Spec In Lab Brad Baugh MD HEMATOLOGY ORDERA BLES Performing Organization Address City/State/[facility] Co de Phone Number [facility] [place] [address] * (ABNORMAL) Hemogram (09/26/2021 2:42 PM EDT) WBC 6.8 4.0 - 9.5 x10(3)/[facility] RBC 4.33 4.00 - 5.21 x10(6)/[facility] Hemoglobin 14.0 11.7 - 15.5 g/dL [facility] Hematocrit 40.4 35.7 - 45.8 % [facility] MCV 93.3 82.6 - 94.4 fL [facility] MCH 32.3(H) 27.1 - 32.0 pg [facility] MCHC 34.7 31.7 - 35.0 g/dL [facility] Platelets 264 145 - 357 x10(3)/[facility] RDWSD 42.9 37.0 - 46.0 fL [facility] RDWCV 12.6 11.5 - 14.1 % [facility] MPV 10.3 7.6 - 12.9 fL [facility] nRBC % Auto 0.0 % [facility] nRBC Abs Auto 0.000 0.000 - 0.000 x10(3)/mcL [facility] Blood 09/26/2021 2:42 PM EDT 09/26/2021 2:54 PM EDT Narrative Resulting Agency Comment Spec In Lab Brad Baugh MD HEMATOLOGY ORDERA BLES Performing Organization Address City/[facility]/ZIP Co de Phone Number [facility] [place] [address] * Hepatitis C Antibody (09/26/2021 2:42 PM EDT) Hepatitis C Ab Negative Negative [facility] Blood 09/26/2021 2:42 PM EDT 09/26/2021 2:54 PM EDT Narrative Resulting Agency Comment Spec In Lab Brad Baugh MD IMMUNOLOGY ORDERA BLES Performing Organization Address [facility]/ZIP Co de Phone Number [facility] [place] [address] * Hepatitis B Core Antibody, Total (09/26/2021 2:42 PM EDT) Hep B Core Ab Negative Negative [facility] Blood 09/26/2021 2:42 PM EDT 09/26/2021 2:54 PM EDT Narrative Resulting Agency Comment Spec In Lab Brad Baugh MD CHEMISTRY ORDERAB LES Performing Organization Address [facility] Co de Phone Number [facility] [place] [address] * Hepatitis B Surface Antigen (09/26/2021 2:42 PM EDT) HepB Surface Ag Negative Negative [facility] Blood 09/26/2021 2:42 PM EDT 09/26/2021 2:54 PM EDT Narrative Resulting Agency Comment Spec In Lab Brad Baugh MD CHEMISTRY ORDERAB LES Performing Organization Address [facility]/ZIP Co de Phone Number [facility] [place] [address] * Hepatitis B Surface Antibody (09/26/2021 2:42 PM EDT) HepB Surface Ab Quant <3.5 IU/L [facility] Comment: HepB Surface Ab Quant: Unvaccinated: < 8.5 IU/L Vaccinated: > 11.5 IU/L HepB Surface Ab Negative [facility] Comment: Patient is presumed to be not vaccinated or immune to HBV infection. Expected Results: Vaccinated: Positive Unvaccinated: Negative Blood 09/26/2021 2:42 PM EDT 09/26/2021 2:54 PM EDT Narrative Resulting Agency Comment Spec In Lab Brad Baugh MD IMMUNOLOGY ORDERA BLES Performing Organization Address [facility]/ZIP Co de Phone Number [facility] [place] [address] * (ABNORMAL) TSH (09/26/2021 2:42 PM EDT) TSH 0.04(L) 0.27 - 4.20 mcIU/mL [facility] Comment: Reference Interval (mcIU/mL): Females: ??First Trimester: 0.23-3.88 ??Second Trimester: 0.22-3.90 ??Third Trimester: 0.44-4.66 Blood 09/26/2021 2:42 PM EDT 09/26/2021 2:54 PM EDT Narrative Resulting Agency Comment Spec In Lab Brad Baugh MD CHEMISTRY ORDERAB LES Performing Organization Address City/[facility]/ZIP Co de Phone Number [facility] [place] [address] * Vitamin D, 25-Hydroxy (09/26/2021 2:42 PM EDT) 25-OH Vit D Total 27 21 - 100 ng/mL [facility] 25-OH Vit D Interp Insufficient [facility] Blood 09/26/2021 2:42 PM EDT 09/26/2021 2:54 PM EDT Narrative Resulting Agency Comment Spec In Lab Brad Baugh MD CHEMISTRY ORDERAB LES Performing Organization Address [facility] Co de Phone Number [facility] [place] [address] * DNA Antibody (Double-Stranded) (09/26/2021 2:42 PM EDT) [facility] dsDNA Ab <12.3 <30.0 (Negative) IU/mL [facility] Comment: Negative for dsDNA antibody by enzyme immunoassay. No further testing recommended. Test Performed by: [place] [address] Supervisor Statement Clerks: Serge Powers M.D. Ph.D.; CLIA# [id number] Blood 09/26/2021 2:42 PM EDT 09/27/2021 8:54 AM EDT Narrative Resulting Agency Comment Spec In Lab Brad Baugh MD CHEMISTRY ORDERAB LES Performing Organization Address [facility] Co de Phone Number [facility] [place] [address] * (ABNORMAL) Extractable Nuclear Antigen (MYRA) Ab (09/26/2021 2:42 PM EDT) Pathologist [facility] MYRA Ab Test ?Result ? Flag ??Unit ??RefValue Ab to Extractable Nuclear Ag Eval,S ??SS-A/Ro Ab, IgG, S ?<0.2 ? U ? <1.0 (Negative) ??SS-B/La Ab, IgG, S ?<0.2 ? U ? <1.0 (Negative) ??Sm Ab, IgG, S ? <0.2 ? U ? <1.0 (Negative) ??CLIENT RESOLUTION SPECIALIST Ab, IgG, S ?1.1 ? H ?U ? <1.0 (Negative) ?Interpretation : Positive (>=1.0) ??Scl 70 Ab, IgG, S ? <0.2 ? U ? <1.0 (Negative) ??Naya 1 Ab, IgG, S ? <0.2 ? U ? <1.0 (Negative) ?Test Performed by: ?[facility] [address] ?[address] [place] [address] ?Supervisor Statement Clerks: Serge Powers M.D. Ph.D.; CLIA# [id number] (A) [facility] Blood 09/26/2021 2:42 PM EDT 09/27/2021 8:54 AM EDT Narrative Resulting Agency Comment Spec In Lab Brad Baugh MD IMMUNOLOGY FADUMO BATES [facility] [place] [address] * (ABNORMAL) WADE (09/26/2021 2:42 PM EDT) Antinuclear Ab Test ?Result ? Flag ??Unit ??RefValue Antinuclear Ab, HEp-2 Substrate, ?Positive 1:640 ??@ ?<1:80 (Negative) ??S ? ADDITIONAL INFORMATION --------- ?Method: Immunofluorescence using HEp-2 cellular substrate. ??WADE Titer: ?1:640 ??WADE Pattern: ?Homogeneous ?Test Performed by: ?[facility] ?[address] [place] [address] ?Supervisor Statement Clerks: Serge Powers M.D. Ph.D.; CLIA# [id number] (A) [facility] Blood 09/26/2021 2:42 PM EDT 09/27/2021 8:54 AM EDT Narrative Resulting Agency Comment Spec In Lab Brad Baugh MD IMMUNOLOGY ORDERA BLES Performing Organization Address [facility] Co de Phone Number [facility] [place] [address] * Sedimentation rate (09/26/2021 2:42 PM EDT) Pathologist [facility] Sed Rate 15 2 - 37 mm/hr [facility] Comment: Effective March 16, 2019 new capillary photometric technology has resulted in a change in reference ranges. It is recommended that each ESR result be reviewed with its own age appropriate reference range. Blood 09/26/2021 2:42 PM EDT 09/26/2021 2:54 PM EDT Narrative Resulting Agency Comment Spec In Lab Brad Baugh MD HEMATOLOGY ORDERA BLES Performing Organization Address [facility] Co de Phone Number [facility] [place] [address] * Complement, Total (09/26/2021 2:42 PM EDT) Pathologist [facility] Complement Total 73 42 - 95 unit/mL [facility] Blood 09/26/2021 2:42 PM EDT 09/26/2021 2:54 PM EDT Narrative Resulting Agency Comment Spec In Lab Brad Baugh MD CHEMISTRY ORDERAB LES Performing Organization Address [facility] Co de Phone Number [facility] [place] [address] * C4 Complement (09/26/2021 2:42 PM EDT) C4 Complement 29 10 - 40 mg/dL [facility] Blood 09/26/2021 2:42 PM EDT 09/26/2021 2:54 PM EDT Narrative Resulting Agency Comment Spec In Lab Brad Baugh MD CHEMISTRY ORDERAB LES Performing Organization Address City/[facility]/ZIP Co de Phone Number [facility] [place] [address] * C3 Complement (09/26/2021 2:42 PM EDT) C3 Complement 136 90 - 180 mg/dL [facility] Blood 09/26/2021 2:42 PM EDT 09/26/2021 2:54 PM EDT Narrative Resulting Agency Comment Spec In Lab Brad Baugh MD CHEMISTRY ORDERAB LES Performing Organization Address [facility]/[place] de Phone Number [facility] [place] [address] * (ABNORMAL) Comprehensive metabolic panel (non-fasting) (09/26/2021 2:42 PM EDT) Pathologist [facility] Glucose Lvl 93 65 - 199 mg/dL [facility] Comment:Diabetes: >=200 mg/d L plus symptoms BUN 15 8 - 18 mg/dL [facility] Creatinine 0.80 0.70 - 1.20 mg/dL [facility] Sodium 140 135 - 145 mmol/L [facility] Potassium 4.0 3.5 - 5.0 mmol/L [facility] Comment: Please note: ??Patients with WBC >100,000 may have falsely elevated Potassium levels. ??For accurate Potassium quantification in these patients send serum separator tube (gold top) for subsequent determinations. ??Contact the Clinical Chemistry Laboratory if there are any questions. Chloride 103 98 - 107 mmol/L [facility] CO2 25 22 - 31 mmol/L [facility] Anion Gap 12 5 - 15 mmol/L [facility] Calcium 9.2 8.5 - 10.5 mg/dL [facility] Total Protein 7.3 6.1 - 8.0 g/dL [facility] Albumin 4.3 3.2 - 5.2 g/dL [facility] AST 23 0 - 30 unit/L [facility] ALT 21 0 - 30 unit/L [facility] Alk Phos 109(H) 35 - 105 unit/L [facility] Total Bilirubin 0.4 0.2 - 1.3 mg/dL [facility] Estimated GFR 90 >=60 mL/min/1. 73 m?? [facility] Comment: This patient's estimated GFR was [...] Lab Brad Baugh MD CHEMISTRY ORDERAB LES Performing Organization Address City/State/[facility] Co de Phone Number [facility] [place] [address] documented in this encounter Visit Diagnoses Diagnosis Osteoporosis, unspecified osteoporosis type, unspecified pathological fracture presence Systemic lupus erythematosus with other organ involvement, unspecified SLE type Hypothyroidism, unspecified type Right sided sciatica Sciatica High risk medication use Encounter for long-term (current) use of other medications documented in this encounter Care Teams Accounting Instructor Relationship Specialty Start Date End Date Briana Timmons, CORN HUSKER [address] [facility] [place] [address] PCP - General Family Medicine 08/09/21 documented as of this encounter
--- OUTSIDE RECORDS SUMMARY | 2023-11-04 15:12 | XMS_ITS | Encounter Summary ---
[place] [address] Care Team Providers Care Envelope Folding Machine Adjuster Name Role Phone Mckenna Genao HAT CONE INSPECTOR Primary Care Provider [phone] Encounter Details Date Type Department Care Team (Late st Contact Info) Description 07/08/2021 External Results [facility] Information Services [address] [place] [phone] Provider, His Benigno MD None Social History [...] Visit [facility] [place] [address] documented as of this encounter Procedures Procedure Name Priority Date/Time Associated Diagnosis Comments EXTERNAL INR RESULTS PANEL Routine 07/08/2021 documented in this encounter Results * (ABNORMAL) External INR Results Panel (07/08/2021) POCT INR 3.6(A) 0.9 - 1.1 HOME MONITOR Blood 07/08/2021 His [place] Provider POINT OF CARE RAYRAY WALLIS ORDERABLES HOME MONITOR documented in this encounter Visit Diagnoses Not on filedocumented in this encounter Care Teams Envelope Folding Machine Adjuster Relationship Specialty Start Date End Date Mckenna Genao, SUELLEN [address] [place] [address] PCP - General Family Medicine 05/07/17 08/08/21 documented as of this encounter
--- OUTSIDE RECORDS SUMMARY | 2023-11-04 15:12 | XMS_ITS | Encounter Summary ---
[place] [address] Care Team Providers Care Research Rn Spec Name Role Phone Mckenna Genao SERVICE CONTROL OPERATOR Primary Care Provider [phone] Encounter Details Date Type Department Care Team (Late Contact Info) Description 07/22/2021 External Results [facility] Information Services [address] [place] [phone] Provider, His Benigno MD None Social History [...] Upcoming Encounters Date Type Department Care Team ([facility] Contact Info) Description 11/11/2023 3:00 AM EDT Anti-Coag Telephone Visit [facility] [place] [address] documented as of this encounter Procedures Procedure Name Priority Date/Time Associated Diagnosis Comments EXTERNAL INR RESULTS PANEL Routine 07/22/2021 documented in this encounter Results * (ABNORMAL) External INR Results Panel (07/22/2021) POCT INR 2.1(A) 0.9 - 1.1 HOME MONITOR Blood 07/22/2021 His [place] Provider POINT OF CARE RAYRAY WALLIS ORDERABLES HOME MONITOR documented in this encounter Visit Diagnoses Not on filedocumented in this encounter Care Teams Research Rn Spec Relationship Specialty Start Date End Date Mckenna Genao, SUELLEN [address] [place] [address] PCP - General Family Medicine 05/07/17 08/08/21 documented as of this encounter
--- OUTSIDE RECORDS SUMMARY | 2023-11-04 15:12 | XMS_ITS | Encounter Summary ---
[place] [address] Care Team Providers Care Overhauler Helper Name Role Phone Briana Timmons APRN Primary Care Provider [phone] Encounter Details Date Type Department Care Team (Late Contact Info) Description 09/16/2021 External Results [facility] Information Services [address] [place] [phone] Provider, His Benigno MD None Social History [...] Upcoming Encounters Date Type Department Care Team ([facility] Contact Info) Description 11/11/2023 3:00 AM EDT Anti-Coag Telephone Visit [facility] [place] [address] documented as of this encounter Procedures Procedure Name Priority Date/Time Associated Diagnosis Comments EXTERNAL INR RESULTS PANEL Routine 09/16/2021 documented in this encounter Results * (ABNORMAL) External INR Results Panel (09/16/2021) POCT INR 2.3(A) 0.9 - 1.1 HOME MONITOR Blood 09/16/2021 His [place] Provider POINT OF CARE RAYRAY WALLIS ORDERABLES HOME MONITOR documented in this encounter Visit Diagnoses Not on filedocumented in this encounter Care Teams Overhauler Helper Relationship Specialty Start Date End Date Briana Timmons, ACUTE CARE PHYSICAL THERAPIST Aniya [facility] [place] [address] PCP - General Family Medicine 08/09/21 documented as of this encounter
--- OUTSIDE RECORDS SUMMARY | 2023-11-04 15:12 | XMS_ITS | Encounter Summary ---
[place] [address] Care Team Providers Care Sample Case Porter Name Role Phone Birgit Mckenna SUELLEN Primary Care Provider [phone] Encounter Details Date Type Department Care Team (Latest Contact Info) Description 07/22/2021 3:00 AM EDT Anti-Coag Telephone Visit [facility] [place] [phone] Shasta Delaney, [facility] Antiphospholipid [...] Shasta Delaney [facility] - 07/22/2021 3:00 AM EDT Images from the original note were not included. Anticoagulation Therapy Note Anticoagulation Summary As of 07/22/2021 INR goal: 2.5-3.5 TTR: 24.1 % (4.4 mo) INR used for dosin.1 (07/22/2021) Warfarin maintenance plan: 5 mg (5 mg x 1) every Mon, Fri; 7.5 mg (5 mg x 1.5) all other days Weekly warfarin total: 47.5 mg Plan last modified: Shasta Delaney [facility] (07/22/2021) Next INR check: 07/29/2021 Priority: 1 Week Target end date: Indefinite Indications Antiphospholipid antibody----- use antiXa level to dose heparin. 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] Pulmonary embolism unspecified chronicity unspecified pulmonary embolism type unspecified whether acute cor pulmonale present [I26.99] Anticoagulation Episode Summary INR check location: Home Draw Preferred lab: [facility] Send INR reminders to: [facility] Comments: Home Monitor [phone] (M) Anticoagulation Care Providers Provider Role Specialty Phone number Gerardo Richter MD Responsible Cardiology [phone] Patient Assessment Service Type: INR Test Result [...] any missed doses. Warfarin Therapy Instructions July 2021 Details Sun Thu Fri Sat 1 2 3 4 5 6 7 8 9 10 11 12 13 14 15 16 17 18 5 mg See details 19 7.5 mg 20 7.5 mg 21 7.5 mg 22 5 mg 23 7.5 mg 24 7.5 mg 25 5 mg 26 27 28 29 30 Date Details 07/22 This INR check Date of next INR: 07/29/2021 How to take your warfarin dose To take: 5 mg Take 1 of the 5 mg tablets. To take: 7.5 mg Take 1.5 of the 5 mg tablets. Description 07/22/21: INR below range. Increase dose 5% [...] current dose and she denies missed doses. 05/20/21: INR trending up. Increase dose another 5% as a one time increase tonight and test INR in 1week. 05/17/21: Follow up call with Cecilia, she reports being prescribed Carafate 1g BID. Sucralfate may diminish the anticoagulant effect of warfarin. Since Cecilia missed a dose in addition to this interaction, I increased dose another 6% and will monitor INR on Thursday. Dr. Richter aware. Records requested from [facility]. 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
--- OUTSIDE RECORDS SUMMARY | 2023-11-04 15:12 | XMS_ITS | Encounter Summary ---
[place] [address] Care Team Providers Care Oxyacetylene Torch Operator Name Role Phone Briana Timmons APRN Primary Care Provider [phone] Encounter Details Date Type Department Care Team (Late Contact Info) Description 10/28/2021 External Results [facility] Information Services [address] [place] [phone] Provider, His Benigno MD None Social History [...] Upcoming Encounters Date Type Department Care Team ([facility] Contact Info) Description 11/11/2023 3:00 AM EDT Anti-Coag Telephone Visit [facility] Centralized [place] [address] documented as of this encounter Procedures Procedure Name Priority Date/Time Associated Diagnosis Comments EXTERNAL INR RESULTS PANEL Routine 10/28/2021 documented in this encounter Results * (ABNORMAL) External INR Results Panel (10/28/2021) POCT INR 3.4(A) 0.9 - 1.1 HOME MONITOR Blood 10/28/2021 His [place] Provider POINT OF CARE RAYRAY WALLIS ORDERABLES HOME MONITOR documented in this encounter Visit Diagnoses Not on filedocumented in this encounter Care Teams Oxyacetylene Torch Operator Relationship Specialty Start Date End Date Briana Timmons, TRIAL COURT JUDGE Aniya [place] [address] PCP - General Family Medicine 08/09/21 documented as of this encounter
--- OUTSIDE RECORDS SUMMARY | 2023-11-04 15:12 | XMS_ITS | Encounter Summary ---
[place] [address] Care Team Providers Care Financial Compliance Manager Name Role Phone BirgitMckenna SUELLEN Primary Care Provider [phone] Encounter Details Date Type Department Care Team (Latest Contact Info) Description 07/29/2021 3:00 AM EDT Anti-Coag Telephone Visit [facility] [place] [phone] Shasta Delaney, [facility] - 07/29/2021 3:00 AM EDT Images from the original note were not included. Anticoagulation Therapy Note Anticoagulation Summary As of 07/29/2021 INR goal: 2.5-3.5 TTR: 23.0 % (4.6 mo) INR used for dosin.4 (07/29/2021) Warfarin maintenance plan: 7.5 mg (5 mg x 1.5) every day Weekly warfarin total: 52.5 mg Plan last modified: Shasta Delaney, [facility] (07/29/2021) Next INR check: 08/05/2021 Priority: 1 Week Target end date: Indefinite Indications Antiphospholipid antibody----- use antiXa level to dose heparin. 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] Pulmonary embolism unspecified chronicity unspecified pulmonary embolism type unspecified whether acute cor pulmonale present [I26.99] Anticoagulation Episode Summary INR check location: Home Draw Preferred lab: [facility] Send INR reminders to: [facility] Comments: Home Monitor [phone] (M) Anticoagulation Care Providers Provider Role Specialty Phone number Gerardo Richter MD Responsible Cardiology [phone] Patient Assessment Service Type: INR Test Result INR Result: Out of Range Clinical Outcomes Negatives: Major bleeding event, Thromboembolic event, Anticoagulation-related hospital admission, Anticoagulation-related ED visit Patient Findings Positives: Change in medications (will resume Carafate starting next week), Change in diet/appetite(adding spinach to her diet for a consistent daily intake of viatmin k) Negatives: Upcoming Travel, Planning or Currently , Recent Fall, Signs/symptoms of thrombosis, Signs/symptoms of bleeding, Laboratory test error suspected, Change in health, Change in alcoholuse, Change in activity, Upcoming invasive procedure, Emergency department visit, Upcoming dental procedure, Missed doses, Extra doses, Hospital admission, Bruising, Other complaints Comments: I left a voicemail for Cecilia [...] 19 20 21 22 23 24 25 7.5 mg See details 26 7.5 mg 27 7.5 mg 28 7.5 mg 29 7.5 mg 30 7.5 mg Date Details 07/29 This INR check How to take your warfarin dose To take: 7.5 mg Take 1.5 of the 5 mg tablets. Warfarin Therapy Instructions August 2021 Details Sun Mon e Wed Yaritza Fri Sat 1 7.5 mg 2 7.5 mg 3 4 5 6 7 8 9 10 11 12 13 14 15 16 17 18 19 20 21 22 23 24 25 26 27 28 29 30 31 Date Details No additional details Date of next INR: 08/05/2021 How to take your warfarin dose To take: 7.5 mg Take 1.5 of the 5 mg tablets. Description 07/29/21: INR trending up but still slightly [...] sightly above range. Cecilia finished Carafate this . Decrease weekly dose 5% and test INR [...] Thursday. Dr. Richter aware. Records requested from [facility]. 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
--- OUTSIDE RECORDS SUMMARY | 2023-11-04 15:12 | XMS_ITS | Encounter Summary ---
[place] [address] Care Team Providers Care Facilities Painter Name Role Phone Briana Timmons APRN Primary Care Provider Reason for Visit * Reason Onset Date Comments Medication Refill 08/19/2021 Encounter Details Date Type Department Care Team (Late Contact Info) Description 08/19/2021 Refill [facility] [place] [phone] Estelle Clarke Aortic valve prosthesis present; Chronic septic pulmonary [...] Telephone Visit [facility] [place] [phone] documented as of this encounter Visit Diagnoses Diagnosis 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
--- OUTSIDE RECORDS SUMMARY | 2023-11-04 15:12 | XMS_ITS | Encounter Summary ---
[place] [address] Care Team Providers Care Dairy Cattle Farm Manager Name Role Phone Briana Timmons APRN Primary Care Provider Encounter Details Date Type Department Care Team (Latest Contact Info) Description 09/16/2021 3:00 AM EDT Anti-Coag Telephone Visit [facility] [place] [phone], [place]E Antiphospholipid antibody syndrome; Aortic [...] Progress Notes * Tucker Lane RN - 09/16/2021 3:00 AM EDT Images from the original note were not included. Anticoagulation Therapy Note Anticoagulation Summary As of 09/16/2021 INR goal: 2.5-3.5 TTR: 34.0 % (6 mo) INR used for dosin.3 (09/16/2021) Warfarin maintenance plan: 5 mg (5 mg x 1) every Mon; 7.5 mg (5 mg x 1.5) all other days Weekly warfarin total: 50 mg No change documented: Tucker Lane, RN Plan last modified: Tucker Lane RN (08/05/2021) Next INR check: 09/23/2021 Priority: 1 Week Target end date: Indefinite Indications Antiphospholipid antibody----- use antiXa level to dose heparin. 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] Pulmonary embolism unspecified chronicity unspecified pulmonary embolism type unspecified whether acute cor pulmonale present [I26.99] Anticoagulation Episode Summary INR check location: Home Draw Preferred lab: [email or web address] Send INR reminders to: [facility] Comments: Home Monitor [phone] (M) Anticoagulation Care Providers Provider Role Specialty Phone number Gerardo Richter MD Responsible Cardiology [phone] Patient Assessment Service Type: INR Test Result [...] complaints Warfarin Therapy Instructions September 2021 Details Thu Mon Tue Wed Yaritza Fri Sat 1 2 3 4 5 6 7 8 9 10 11 12 13 5 mg See details 14 7.5 mg 15 7.5 mg 16 7.5 mg 17 7.5 mg 18 7.5 mg 19 7.5 mg 20 5 mg 21 22 23 24 25 26 27 28 29 30 Date Details 09/16 This INR check Date of next INR: 09/23/2021 How to take your warfarin dose To take: 5 mg Take 1 of the 5 mg tablets. To take: 7.5 mg Take 1.5 of the 5 mg tablets. 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
--- OUTSIDE RECORDS SUMMARY | 2023-11-04 15:12 | XMS_ITS | Encounter Summary ---
[place] [address] Care Team Providers Care Lead Quality Technician Name Role Phone Briana Timmons APRN Primary Care Provider [phone] Encounter Details Date Type Department Care Team (Late st Contact Info) Description 08/19/2021 External Results [facility] Centralized [place] [address] Estelle Clarke Social History Tobacco Use Types [...] Telephone Visit [facility] Centralized [place] [address] documented as of this encounter Procedures Procedure Name Priority Date/Time Associated Diagnosis Comments EXTERNAL INR RESULTS PANEL Routine 08/19/2021 3:42 PM EDT documented in this encounter Results * External INR Results Panel (08/19/2021 3:42 PM EDT) POCT INR 3.0 0.9 - 1.1 HOME MONITOR Blood 08/19/2021 3:42 PM EDT Historical Provider POINT OF CARE GERSON T ORDERABLES HOME MONITOR documented in this encounter Visit Diagnoses Not on filedocumented in this encounter Care Teams Lead Quality Technician Relationship Specialty Start Date End Date Briana Timmons, ICER AIR CONDITIONING [place] [place] [address] PCP - General Family Medicine 08/09/21 documented as of this encounter
--- OUTSIDE RECORDS SUMMARY | 2023-11-04 15:12 | XMS_ITS | Encounter Summary ---
[place] [address] Care Team Providers Care Cooker Process Cheese Name Role Phone Briana Timmons APRN Primary Care Provider [phone] Encounter Details Date Type Department Care Team (Late st Contact Info) Description 10/14/2021 External Results [facility] Centralized [place] [address] Estelle Clarke Social History Tobacco Use Types [...] Anti-Coag Telephone Visit [facility] Central[place] [address] documented as of this encounter Procedures Procedure Name Priority Date/Time Associated Diagnosis Comments EXTERNAL INR RESULTS PANEL Routine 10/14/2021 9:15 AM EDT documented in this encounter Results * External INR Results Panel (10/14/2021 9:15 AM EDT) POCT INR 2.6 0.9 - 1.1 HOME MONITOR Blood 10/14/2021 9:15 AM EDT Historical Provider POINT OF CARE GERSON T ORDERABLES HOME MONITOR documented in this encounter Visit Diagnoses Not on filedocumented in this encounter Care Teams Cooker Process Cheese Relationship Specialty Start Date End Date Briana Timmons, SUPERVISOR ENGIN[address]AD [place] [address] PCP - General Family Medicine 08/09/21 documented as of this encounter
--- OUTSIDE RECORDS SUMMARY | 2023-11-04 15:12 | XMS_ITS | Encounter Summary ---
[place] [address] Care Team Providers Care Safety Spec Name Role Phone Briana Timmons APRN Primary Care Provider [phone] Encounter Details Date Type Department Care Team (Latest Contact Info) Description 10/15/2021 3:00 AM EDT Anti-Coag Telephone Visit [facility] [place] [phone] Shasta Delaney, [facility] Antiphospholipid antibody syndrome; Aortic valve prosthesis [...] this encounter Progress Notes * Shasta Delaney [facility] - 10/15/2021 3:00 AM EDT Images from the original note were not included. Anticoagulation Therapy Note Anticoagulation Summary As of 10/15/2021 INR goal: 2.5-3.5 TTR: 40.5 % (6 mo) INR used for dosin.6 (10/14/2021) Warfarin maintenance plan: 5 mg (5 mg x 1) every e, Yaritza, Sat; 7.5 mg (5 mg x 1.5) all other days Weekly warfarin total: 45 mg Plan last modified: Tucker Lane RN (10/08/2021) Next INR check: 10/21/2021 Priority: 1 Week Target end date: Indefinite Indications Antiphospholipid antibody----- use antiXa level to dose heparin. 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] Pulmonary embolism unspecified chronicity unspecified pulmonary embolism type unspecified whether acute cor pulmonale present [I26.99] Anticoagulation Episode Summary INR check location: Home Draw Preferred lab: [facility] Send INR reminders to: [facility] Comments: Home Monitor [phone] (M) Anticoagulation Care Providers Provider Role Specialty Phone number Gerardo Richter MD Responsible Cardiology [phone] Patient Assessment Service Type: INR Test Result INR Result: In Range Clinical Outcomes Negatives: Major bleeding event, Thromboembolic event, Anticoagulation-related hospital admission, Anticoagulation-related ED visit Patient Findings Positives: Missed doses, Change in medications (Once weekly methotrexate injection: Methotrexate may enhance the anticoagulant effect of Warfarin), Bruising (under her arm and on thigh, will monitor for severity and quantity of bruises) Negatives: Upcoming Travel, Planning or Currently , Recent Fall, Signs/symptoms of thrombosis, Signs/symptoms of bleeding, Laboratory test error suspected, Change in health, Change in alcoholuse, Change in activity, Upcoming invasive procedure, Emergency department visit, Upcoming dental procedure, Extra doses, Change in diet/appetite, Hospital admission, Other complaints Warfarin Therapy Instructions October 2021 Details Sun Mon e Wed Yaritza Fri Sat 1 2 3 4 5 6 7 8 9 10 11 12 7.5 mg See details 13 7.5 mg 14 5 mg 15 7.5 mg 16 7.5 mg 17 7.5 mg 18 7.5 mg 19 20 21 22 23 24 25 26 27 28 29 30 31 Date Details 10/15 This INR check Date of next INR: 10/21/2021 How to take your warfarin dose To take: 5 mg Take 1 of the 5 mg tablets. To take: 7.5 mg Take 1.5 of the 5 mg tablets. Description 10/15/21: INR in range on 45mg/wk. Cecilia [...] decrease weekly dose 5%, recheck 1 week. 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
--- OUTSIDE RECORDS SUMMARY | 2023-11-04 15:12 | XMS_ITS | Encounter Summary ---
[place] [address] Care Team Providers Care Cinder Pit Worker Name Role Phone Mckenna Genao INTERNATIONAL ACCOUNT REPRESENTATIVE Primary Care Provider [phone] Encounter Details Date Type Department Care Team (Late Contact Info) Description 07/29/2021 External Results [facility] Information Services [address] [place] [phone] Provider, His Benigno MD None Social History [...] Upcoming Encounters Date Type Department Care Team ([facility] Contact Info) Description 11/11/2023 3:00 AM EDT Anti-Coag Telephone Visit [facility] [place] [address] documented as of this encounter Procedures Procedure Name Priority Date/Time Associated Diagnosis Comments EXTERNAL INR RESULTS PANEL Routine 07/29/2021 documented in this encounter Results * (ABNORMAL) External INR Results Panel (07/29/2021) POCT INR 2.4(A) 0.9 - 1.1 HOME MONITOR Blood 07/29/2021 His [place] Provider POINT OF CARE RAYRAY WALLIS ORDERABLES HOME MONITOR documented in this encounter Visit Diagnoses Not on filedocumented in this encounter Care Teams Cinder Pit Worker Relationship Specialty Start Date End Date Mckenna Genao, SUELLEN [address] [place] [address] PCP - General Family Medicine 05/07/17 08/08/21 documented as of this encounter
--- OUTSIDE RECORDS SUMMARY | 2023-11-04 15:12 | XMS_ITS | Encounter Summary ---
[place] [address] Care Team Providers Care Maritime Guard Name Role Phone Birgit Mckenna SUELLEN Primary Care Provider [phone] Encounter Details Date Type Department Care Team (Latest Contact Info) Description 07/08/2021 3:00 AM EDT Anti-Coag Telephone Visit [facility] [place] [phone] Shasta Delaney, [facility] Antiphospholipid antibody [...] Delaney [facility] - 07/08/2021 3:00 AM EDT Images from the original note were not included. Anticoagulation Therapy Note Anticoagulation Summary As of 07/08/2021 INR goal: 2.5-3.5 TTR: 23.9 % (3.9 mo) INR used for dosin.6 (07/08/2021) Warfarin maintenance plan: 5 mg (5 mg x 1) every Mon; 7.5 mg (5 mg x 1.5) all other days Weekly warfarin total: 50 mg Plan last modified: Shasta Delaney [facility] (07/08/2021) Next INR check: 07/15/2021 Priority: 1 Week Target end date: Indefinite Indications Antiphospholipid antibody----- use antiXa level to dose heparin. 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] Pulmonary embolism unspecified chronicity unspecified pulmonary embolism type unspecified whether acute cor pulmonale present [I26.99] Anticoagulation Episode Summary INR check location: Home Draw Preferred lab: [facility] Send INR reminders to: [facility] Comments: Home Monitor [phone] (L) Anticoagulation Care Providers Provider Role Specialty Phone number Gerardo Richter MD Responsible Cardiology [phone] Patient Assessment Service Type: INR Test Result INR Result: Out of Range Clinical Outcomes Negatives: Major bleeding event, Thromboembolic event, Anticoagulation-related hospital admission, Anticoagulation-related ED visit Patient Findings Positives: Change in medications (stopped carafate) Negatives: Upcoming Travel, Planning or Currently , Recent Fall, Signs/symptoms of thrombosis, Signs/symptoms of bleeding, Laboratory test error suspected, Change in health, Change in alcoholuse, Change in activity, Upcoming invasive procedure, Emergency department visit, Upcoming dental procedure, Missed doses, Extra doses, Change in diet/appetite, Hospital admission, Bruising, Other complaints Warfarin Therapy Instructions July 2021 Details Sun Mon Tue Wed Yaritza Fri Sat 1 2 3 4 5 mg See details 5 7.5 mg 6 7.5 mg 7 7.5 mg 8 7.5 mg 9 7.5 mg 10 7.5 mg 11 5 mg 12 13 14 15 16 17 18 19 20 21 22 23 24 25 26 27 28 29 30 Date Details 07/08 This INR check Date of next INR: 07/15/2021 How to take your warfarin dose To take: 5 mg Take 1 of the 5 mg tablets. To take: 7.5 mg Take 1.5 of the 5 mg tablets. Description 07/08/21: INR sightly above range. Cecilia finished [...] Thursday. Dr. Richter aware. Records requested from [facility]. documented in this encounter Plan of Treatment Upcoming Encounters Date Type Department Care Team (Late st Contact Info) Description 11/11/2023 3:00 AM EDT Anti-Coag Telephone Visit [facility] [place] [address] documented as of this encounter Visit Diagnoses Diagnosis Antiphospholipid antibody syndrome Primary hypercoagulable state Aortic valve prosthesis present Heart valve replaced by other means Pulmonary embolism, unspecified chronicity, unspecified pulmonary embolism type, unspecified whether acute cor pulmonale present documented in this encounter Care Teams Maritime Guard Relationship Specialty Start Date End Date Mckenna Genao, PLANT ANATOMIST [address] [place] [address] PCP - General Family Medicine 05/07/17 08/08/21 documented as of this encounter
--- OUTSIDE RECORDS SUMMARY | 2023-11-04 15:12 | XMS_ITS | Encounter Summary ---
[place] [address] Care Team Providers Care Mosaic Technician Name Role Phone Briana Timmons APRN Primary Care Provider [phone] Encounter Details Date Type Department Care Team (Late Contact Info) Description 09/30/2021 External Results [facility] Information Services [address] [place] [phone] Provider, His Benigno MD None Social History [...] Department Care Team ([facility] [address] Contact Info) Description 11/11/2023 3:00 AM EDT Anti-Coag Telephone Visit [facility] Centralized [place] [address] documented as of this encounter Procedures Procedure Name Priority Date/Time Associated Diagnosis Comments EXTERNAL INR RESULTS PANEL Routine 09/30/2021 documented in this encounter Results * (ABNORMAL) External INR Results Panel (09/30/2021) POCT INR 2.9(A) 0.9 - 1.1 HOME MONITOR Blood 09/30/2021 His [place] Provider POINT OF CARE RAYRAY WALLIS ORDERABLES HOME MONITOR documented in this encounter Visit Diagnoses Not on filedocumented in this encounter Care Teams Mosaic Technician Relationship Specialty Start Date End Date Briana Timmons, PRINTED CIRCUIT BOARD REWORKER [facility] [address] PCP - General Family Medicine 08/09/21 documented as of this encounter
--- OUTSIDE RECORDS SUMMARY | 2023-11-04 15:12 | XMS_ITS | Encounter Summary ---
[place] [address] Care Team Providers Care Eviscerator Name Role Phone BirgitMckenna SUELLEN Primary Care Provider [phone] Encounter Details Date Type Department Care Team (Latest Contact Info) Description 08/05/2021 3:00 AM EDT Anti-Coag Telephone Visit [facility] [place] [phone] RN Antiphospholipid antibody syndrome; Aortic [...] Progress Notes * Tucker Lane RN - 08/05/2021 3:00 AM EDT Images from the original note were not included. Anticoagulation Therapy Note Anticoagulation Summary As of 08/05/2021 INR goal: 2.5-3.5 TTR: 25.2 % (4.9 mo) INR used for dosin.9 (08/05/2021) Warfarin maintenance plan: 5 mg (5 mg x 1) every Mon; 7.5 mg (5 mg x 1.5) all other days Weekly warfarin total: 50 mg Plan last modified: Tucker Lane RN (08/05/2021) Next INR check: 08/12/2021 Priority: 1 Week Target end date: Indefinite Indications Antiphospholipid antibody----- use antiXa level to dose heparin. 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] Pulmonary embolism unspecified chronicity unspecified pulmonary embolism type unspecified whether acute cor pulmonale present [I26.99] Anticoagulation Episode Summary INR check location: Home Draw Preferred lab: [email or web address] Send INR reminders to: [facility] Comments: Home Monitor [phone] (M) Anticoagulation Care Providers Provider Role Specialty Phone number Gerardo Richter MD Responsible Cardiology [phone] Patient Assessment Service Type: INR Test Result INR Result: Out of Range Clinical Outcomes Negatives: Major bleeding event, Thromboembolic event, Anticoagulation-related hospital admission, Anticoagulation-related ED visit Patient Findings Positives: Change in medications Negatives: Upcoming Travel, Planning or Currently , Recent Fall, Signs/symptoms of thrombosis, Signs/symptoms of bleeding, Laboratory test error suspected, Change in health, Change in alcoholuse, Change in activity, Upcoming invasive procedure, Emergency department visit, Upcoming dental procedure, Missed doses, Extra doses, Change in diet/appetite, Hospital admission, Bruising, Other complaints Comments: Started sucralfate 08/04. Warfarin Therapy Instructions August 2021 Details Sun Mon Tue Wed Yaritza Fri Sat 1 2 5 mg See details 3 7.5 mg 4 7.5 mg 5 7.5 mg 6 7.5 mg 7 7.5 mg 8 7.5 mg 9 5 mg 10 11 12 13 14 15 16 17 18 19 20 21 22 23 24 25 26 27 28 29 30 31 Date Details 08/05 This INR check Date of next INR: 08/12/2021 How to take your warfarin dose To take: 5 mg Take 1 of the 5 mg tablets. To take: 7.5 mg Take 1.5 of the 5 mg tablets. Description 08/05 INR high today, spoke with Cecilia, [...] Telephone Visit [facility] [place] [address] documented as of this encounter Visit Diagnoses Diagnosis Antiphospholipid antibody syndrome Primary hypercoagulable state Aortic valve prosthesis present Heart valve replaced by other means Pulmonary embolism, unspecified chronicity, unspecified pulmonary embolism type, unspecified whether acute cor pulmonale present documented in this encounter Care Teams Eviscerator Relationship Specialty Start Date End Date Mckenna Genao, DIP STAND LOADER [address] [place] [address] PCP - General Family Medicine 05/07/17 08/08/21 documented as of this encounter
--- OUTSIDE RECORDS SUMMARY | 2023-11-04 15:12 | XMS_ITS | Encounter Summary ---
[place] [address] Care Team Providers Care Sider Mechanic Name Role Phone TerranceMckenna hines SUELLEN Primary Care Provider [phone] Encounter Details Date Type Department Care Team (Late st Contact Info) Description 08/05/2021 External Results [facility] Central[place] [address] Estelle Clarke Social History Tobacco Use Types [...] Telephone Visit [facility] Central[place] [address] documented as of this encounter Procedures Procedure Name Priority Date/Time Associated Diagnosis Comments EXTERNAL INR RESULTS PANEL Routine 08/05/2021 9:33 AM EDT documented in this encounter Results * (ABNORMAL) External INR Results Panel (08/05/2021 9:33 AM EDT) POCT INR 3.9(A) 0.9 - 1.1 HOME MONITOR Blood 08/05/2021 9:33 AM EDT Historical Provider POINT OF CARE GERSON T ORDERABLES HOME MONITOR documented in this encounter Visit Diagnoses Not on filedocumented in this encounter Care Teams Sider Mechanic Relationship Specialty Start Date End Date Mckenna Genao, SUELLEN [address] [place] [address] PCP - General Family Medicine 05/07/17 08/08/21 documented as of this encounter
--- OUTSIDE RECORDS SUMMARY | 2023-11-04 15:12 | XMS_ITS | Encounter Summary ---
[place] [address] Care Team Providers Care Receptionist Doctor'S Office Name Role Phone Mckenna Genao CLINICAL DIRECTOR Primary Care Provider [phone] Encounter Details Date Type Department Care Team (Late Contact Info) Description 06/24/2021 External Results [facility] Information Services [address] [place] [phone] Provider, His Benigno MD None Social History [...] Upcoming Encounters Date Type Department Care Team ([facility] Contact Info) Description 11/11/2023 3:00 AM EDT Anti-Coag Telephone Visit [facility] [place] [address] documented as of this encounter Procedures Procedure Name Priority Date/Time Associated Diagnosis Comments EXTERNAL INR RESULTS PANEL Routine 06/24/2021 documented in this encounter Results * External INR Results Panel (06/24/2021) INR 4.00 EXTERNAL LAB Blood 06/24/2021 Historical Provider POINT OF CARE GERSON T ORDERABLES EXTERNAL LAB documented in this encounter Visit Diagnoses Not on filedocumented in this encounter Care Teams Receptionist Doctor'S Office Relationship Specialty Start Date End Date Mckenna Genao, SUELLEN [address] [address] PCP - General Family Medicine 05/07/17 08/08/21 documented as of this encounter
--- OUTSIDE RECORDS SUMMARY | 2023-11-04 15:12 | XMS_ITS | Encounter Summary ---
[place] [address] Care Team Providers Care Instrument Calibrator Name Role Phone Birgit Mckenna SUELLEN Primary Care Provider [phone] Encounter Details Date Type Department Care Team (Latest Contact Info) Description 07/02/2021 3:00 AM EDT Anti-Coag Telephone Visit [facility] [place] [phone] Shasta Delaney, [facility] Antiphospholipid antibody syndrome; Aortic valve prosthesis [...] encounter Progress Notes * Shasta Delaney [facility] - 07/02/2021 3:00 AM EDT Images from the original note were not included. Anticoagulation Therapy Note Anticoagulation Summary As of 07/02/2021 INR goal: 2.5-3.5 TTR: 25.3 % (3.7 mo) INR used for dosin.5 (07/01/2021) Warfarin maintenance plan: 7.5 mg (5 mg x 1.5) every day Weekly warfarin total: 52.5 mg Plan last modified: Shasta Delaney, [facility] (06/24/2021) Next INR check: 07/08/2021 Priority: 1 Week Target end date: Indefinite Indications Antiphospholipid antibody----- use antiXa level to dose heparin. 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] Pulmonary embolism unspecified chronicity unspecified pulmonary embolism type unspecified whether acute cor pulmonale present [I26.99] Anticoagulation Episode Summary INR check location: Home Draw Preferred lab: [facility] Send INR reminders to: [facility] Comments: Home Monitor [phone] (M) Anticoagulation Care Providers Provider Role Specialty Phone number Gerardo Richter MD Responsible Cardiology [phone] Patient Assessment Service Type: INR Test Result [...] any missed doses. Warfarin Therapy Instructions June 2021 Details Thu Fri Sat 1 2 3 4 5 6 7 8 9 10 11 12 13 14 15 16 17 18 19 20 21 22 23 24 25 26 27 28 29 7.5 mg See details 30 7.5 mg 31 7.5 mg Date Details 07/02 This INR check How to take your warfarin dose To take: 7.5 mg Take 1.5 of the 5 mg tablets. Warfarin Therapy Instructions July 2021 Details Thu Yaritza Fri Sat 1 7.5 mg 2 7.5 mg 3 7.5 mg 4 7.5 mg 5 6 7 8 9 10 11 12 13 14 15 16 17 18 19 20 21 22 23 24 25 26 27 28 29 30 Date Details No additional details Date of next INR: 07/08/2021 How to take your warfarin dose To take: 7.5 mg Take 1.5 of the 5 mg tablets. Description 07/02/21: INR in range. Continue on current [...] Dr. Richter aware. Records requested from [facility]. documented in this encounter Plan of Treatment Upcoming Encounters Date Type Department Care Team (Kelly st Contact Info) Description 11/11/2023 3:00 AM EDT Anti-Coag Telephone Visit [facility] [place] [address] documented as of this encounter Visit Diagnoses Diagnosis Antiphospholipid antibody syndrome Primary hypercoagulable state Aortic valve prosthesis present Heart valve replaced by other means Pulmonary embolism, unspecified chronicity, unspecified pulmonary embolism type, unspecified whether acute cor pulmonale present documented in this encounter Care Teams Instrument Calibrator Relationship Specialty Start Date End Date Mckenna Genao, DIRECTOR SPECIAL EDUCATION [address] [place] [address] PCP - General Family Medicine 05/07/17 08/08/21 documented as of this encounter
--- OUTSIDE RECORDS SUMMARY | 2023-11-04 15:12 | XMS_ITS | Encounter Summary ---
[place] [address] Care Team Providers Care Senior Integration Developer Name Role Phone BirgitMckenna SUELLEN Primary Care Provider [phone] Encounter Details Date Type Department Care Team (Latest Contact Info) Description 06/24/2021 3:00 AM EDT Anti-Coag Telephone Visit [facility] Centralized [place] [address] Shasta Delaney, [facility] Antiphospholipid antibody syndrome; Aortic valve prosthesis present; [...] this encounter Progress Notes * Shasta Delaney [facility] - 06/24/2021 3:00 AM EDT Images from the original note were not included. Anticoagulation Therapy Note Anticoagulation Summary As of 06/24/2021 INR goal: 2.5-3.5 TTR: 27.2 % (3.5 mo) INR used for dosin.00 (06/24/2021) Warfarin maintenance plan: 7.5 mg (5 mg x 1.5) every day Weekly warfarin total: 52.5 mg Plan last modified: Shasta Delaney, [facility] (06/24/2021) Next INR check: 07/01/2021 Priority: 1 Week Target end date: Indefinite Indications Antiphospholipid antibody----- use antiXa level to dose heparin. 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] Pulmonary embolism unspecified chronicity unspecified pulmonary embolism type unspecified whether acute cor pulmonale present [I26.99] Anticoagulation Episode Summary INR check location: Home Draw Preferred lab: [facility] Send INR reminders to: [facility] Comments: Home Monitor [facility] -PCP ( NO THURSDAY TESTING 24 hr TURN AROUND ON LABS) [phone] (M) SO Exp 02/21/2022 Anticoagulation Care Providers Provider Role Specialty Phone number Gerardo Richter MD Responsible Cardiology [phone] Patient Assessment Service Type: INR Test Result INR Result: Out of Range Clinical Outcomes Patient Findings Comments: I left a voicemail and MyD-H message sent for Cecilia with instructions to call with any changes in diet, medication or health or if the dosing we have on record differs from the dose they have been taking. Also instructed to call clinic to report any missed doses. Warfarin Therapy Instructions June 2021 Details Sun Thu Fri Sat 1 2 3 4 5 6 7 8 9 10 11 12 13 14 15 16 17 18 19 20 21 7.5 mg See details 22 7.5 mg 23 7.5 mg 24 7.5 mg 25 7.5 mg 26 7.5 mg 27 7.5 mg 28 7.5 mg 29 30 31 Date Details 06/24 This INR check Date of next INR: 07/01/2021 How to take your warfarin dose To take: 7.5 mg Take 1.5 of the 5 mg tablets. Description 06/24/21: INR above range. Decrease dose 9% [...] Thursday. Dr. Richter aware. Records requested from [facility]. documented in this encounter Plan of Treatment Upcoming Encounters Date Type Department Care Team (Late st Contact Info) Description 11/11/2023 3:00 AM EDT Anti-Coag Telephone Visit [facility] Centralized [place] [address] documented as of this encounter Visit Diagnoses Diagnosis Antiphospholipid antibody syndrome Primary hypercoagulable state Aortic valve prosthesis present Heart valve replaced by other means Pulmonary embolism, unspecified chronicity, unspecified pulmonary embolism type, unspecified whether acute cor pulmonale present documented in this encounter Care Teams Senior Integration Developer Relationship Specialty Start Date End Date Mckenna Genao, SUELLEN [address] [place] [address] PCP - General Family Medicine 05/07/17 08/08/21 documented as of this encounter
--- OUTSIDE RECORDS SUMMARY | 2023-11-04 15:12 | XMS_ITS | Encounter Summary ---
[place] [address] Care Team Providers Care Dirt Bike Mechanic Name Role Phone BirgitMckenna SUELLEN Primary Care Provider [phone] Encounter Details Date Type Department Care Team (Latest Contact Info) Description 07/15/2021 3:00 AM EDT Anti-Coag Telephone Visit [facility] [place] [phone] Shasta Delaney, [facility] Antiphospholipid antibody syndrome; Aortic [...] * Shasta Delaney [facility] - 07/15/2021 3:00 AM EDT Images from the original note were not included. Anticoagulation Therapy Note Anticoagulation Summary As of 07/15/2021 INR goal: 2.5-3.5 TTR: 22.6 % (4.2 mo) INR used for dosin.9 (07/15/2021) Warfarin maintenance plan: 5 mg (5 mg x 1) every Thu, Thu, Thu; 7.5 mg (5 mg x 1.5) all other days Weekly warfarin total: 45 mg Plan last modified: Shasta Delaney [facility] (07/15/2021) Next INR check: 07/22/2021 Priority: 1 Week Target end date: Indefinite Indications Antiphospholipid antibody----- use antiXa level to dose heparin. 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] Pulmonary embolism unspecified chronicity unspecified pulmonary embolism type unspecified whether acute cor pulmonale present [I26.99] Anticoagulation Episode Summary INR check location: Home Draw Preferred lab: [facility] Send INR reminders to: [facility] Comments: Home Monitor [phone] (M) Anticoagulation Care Providers Provider Role Specialty Phone number Gerardo Richter MD Responsible Cardiology [phone] Patient Assessment Service Type: INR Test Result INR Result: Out of Range Clinical Outcomes Negatives: Major bleeding event, Thromboembolic event, Anticoagulation-related hospital admission, Anticoagulation-related ED visit Patient Findings Positives: Change in medications (recently stopped Carafate) Negatives: Upcoming Travel, Planning or Currently , Recent Fall, Signs/symptoms of thrombosis, Signs/symptoms of bleeding, Laboratory test error suspected, Change in health, Change in alcoholuse, Change in activity, Upcoming invasive procedure, Emergency department visit, Upcoming dental procedure, Missed doses, Extra doses, Change in diet/appetite, Hospital admission, Bruising, Other complaints Warfarin Therapy Instructions July 2021 Details Sun Thuu Fri Sat 1 2 3 4 5 6 7 8 9 10 11 5 mg See details 12 7.5 mg 13 5 mg 14 7.5 mg 15 5 mg 16 7.5 mg 17 7.5 mg 18 5 mg 19 20 21 22 23 24 25 26 27 28 29 30 Date Details 07/15 This INR check Date of next INR: 07/22/2021 How to take your warfarin dose To take: 5 mg Take 1 of the 5 mg tablets. To take: 7.5 mg Take 1.5 of the 5 mg tablets. Description 07/15/21: INR above range. Decrease dose 10% [...] Thursday. Dr. Richter aware. Records requested from [facility]. 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
--- OUTSIDE RECORDS SUMMARY | 2023-11-04 15:12 | XMS_ITS | Encounter Summary ---
[place] [address] Care Team Providers Care Software Support Analyst Name Role Phone Briana Timmons APRN Primary Care Provider [phone] Encounter Details Date Type Department Care Team (Latest Contact Info) Description 10/21/2021 3:00 AM EDT Anti-Coag Telephone Visit [facility] [place] [phone] Shasta Delaney [facility] Antiphospholipid antibody syndrome; Aortic valve [...] this encounter Progress Notes * Shasta Delaney [facility] - 10/21/2021 3:00 AM EDT Images from the original note were not included. Anticoagulation Therapy Note Anticoagulation Summary As of 10/21/2021 INR goal: 2.5-3.5 TTR: 38.8 % (6 mo) INR used for dosin.4 (10/21/2021) Warfarin maintenance plan: 7.5 mg (5 mg x 1.5) every Thu, Thu, Thu; 5 mg (5 mg x 1) all other days Weekly warfarin total: 42.5 mg Plan last modified: Shasta Delaney, [facility] (10/21/2021) Next INR check: 10/28/2021 Priority: 1 Week Target end date: Indefinite Indications Antiphospholipid antibody----- use antiXa level to dose heparin. 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] Pulmonary embolism unspecified chronicity unspecified pulmonary embolism type unspecified whether acute cor pulmonale present [I26.99] Anticoagulation Episode Summary INR check location: Home Draw Preferred lab: [facility] Send INR reminders to: [facility] Comments: Home Monitor [phone] (M) Anticoagulation Care Providers Provider Role Specialty Phone number Gerardo Richter MD Responsible Cardiology [phone] Patient Assessment Service Type: INR Test Result INR Result: In Range Clinical Outcomes Negatives: Major bleeding event, Thromboembolic event, Anticoagulation-related hospital admission, Anticoagulation-related ED visit Patient Findings Positives: Change in health (diarrhea), Change in medications (methotrexate weekly), Change in diet/appetite (decreased), Bruising (increase in bruising since starting methotrexate) Negatives: Upcoming Travel, Planning or Currently , Recent Fall, Signs/symptoms of thrombosis, Signs/symptoms of bleeding, Laboratory test error suspected, Change in alcohol use, Change in activity, Upcoming invasive procedure, Emergency department visit, Upcoming dental procedure, Missed doses, Extra doses, Hospital admission, Other complaints Comments: We discussed sxs of bleeding that require immediate medical attention. Warfarin Therapy Instructions October 2021 Details Thuu Fri Sat 1 2 3 4 5 6 7 8 9 10 11 12 13 14 15 16 17 18 2.5 mg See details 19 7.5 mg 20 5 mg 21 7.5 mg 22 5 mg 23 5 mg 24 7.5 mg 25 5 mg 26 27 28 29 30 31 Date Details 10/21 This INR check Date of next INR: 10/28/2021 How to take your warfarin dose To take: 2.5 mg Take 0.5 of a 5 mg tablet. To take: 5 mg Take 1 of the 5 mg tablets. To take: 7.5 mg Take 1.5 of the 5 mg tablets. Description 10/21/21: INR above range. Cecilia has recently [...] ALEXANDER espinal that we are closed . documented in this encounter Plan of Treatment Upcoming Encounters Date Type Department Care Team (Late st Contact Info) Description 11/11/2023 3:00 AM EDT Anti-Coag Telephone Visit [facility] [place] [address] documented as of this encounter Visit Diagnoses Diagnosis Antiphospholipid antibody syndrome Primary hypercoagulable state Aortic valve prosthesis present Heart valve replaced by other means Pulmonary embolism, unspecified chronicity, unspecified pulmonary embolism type, unspecified whether acute cor pulmonale present documented in this encounter Care Teams Software Support Analyst Relationship Specialty Start Date End Date Briana Timmons, STAFF NURSE MIDWIFE [facility] [place] [address] PCP - General Family Medicine 08/09/21 documented as of this encounter
--- OUTSIDE RECORDS SUMMARY | 2023-11-04 15:12 | XMS_ITS | Encounter Summary ---
[place] [address] Care Team Providers Care Pigment Pusher Name Role Phone Briana Timmons APRN Primary Care Provider [phone] Encounter Details Date Type Department Care Team (Latest Contact Info) Description 08/12/2021 3:00 AM EDT Anti-Coag Telephone Visit [facility] Centralized [place] [address] Fili Pickett, [facility] Antiphospholipid antibody syndrome; Aortic valve prosthesis present; [...] this encounter Progress Notes * Fili Pickett [facility] - 08/12/2021 3:00 AM EDT Images from the original note were not included. Anticoagulation Therapy Note Anticoagulation Summary As of 08/12/2021 INR goal: 2.5-3.5 TTR: 26.0 % (5.1 mo) INR used for dosin.2 (08/12/2021) Warfarin maintenance plan: 5 mg (5 mg x 1) every Mon; 7.5 mg (5 mg x 1.5) all other days Weekly warfarin total: 50 mg Plan last modified: Tucker Lane RN (08/05/2021) Next INR check: 08/19/2021 Priority: 1 Week Target end date: Indefinite Indications Antiphospholipid antibody----- use antiXa level to dose heparin. 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] Pulmonary embolism unspecified chronicity unspecified pulmonary embolism type unspecified whether acute cor pulmonale present [I26.99] Anticoagulation Episode Summary INR check location: Home Draw Preferred lab: [facility] Send INR reminders to: [facility] Comments: Home Monitor [phone] (M) Anticoagulation Care Providers Provider Role Specialty Phone number Gerardo Richter MD Responsible Cardiology [phone] Patient Assessment Service Type: INR Test Result [...] Bruising, Other complaints Warfarin Therapy Instructions August 2021 Details Sun Thu Sat 1 2 3 4 5 6 7 8 9 5 mg See details 10 7.5 mg 11 7.5 mg 12 7.5 mg 13 7.5 mg 14 7.5 mg 15 7.5 mg 16 5 mg 17 18 19 20 21 22 23 24 25 26 27 28 29 30 31 Date Details 08/12 This INR check Date of next INR: 08/19/2021 How to take your warfarin dose To take: 5 mg Take 1 of the 5 mg tablets. To take: 7.5 mg Take 1.5 of the 5 mg tablets. Description 08/12 INR in range. Continue on current [...] Anti-Coag Telephone Visit [facility] [place] [address] documented as of this encounter Procedures Procedure Name Priority Date/Time Associated Diagnosis Comments EXTERNAL INR RESULTS PANEL Routine 08/12/2021 documented in this encounter Results * (ABNORMAL) External INR Results Panel (08/12/2021) POCT INR 3.2(A) 0.9 - 1.1 [facility] Blood 08/12/2021 Historical Provider POINT OF CARE GERSON T ORDERABLES [facility] [address] [phone] documented in this encounter Visit Diagnoses Diagnosis Antiphospholipid antibody syndrome Primary hypercoagulable state Aortic valve prosthesis present Heart valve 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
--- OUTSIDE RECORDS SUMMARY | 2023-11-04 15:12 | XMS_ITS | Encounter Summary ---
[place] [address] Care Team Providers Care Sew On Operator Name Role Phone Briana Timmons APRN Primary Care Provider [phone] Encounter Details Date Type Department Care Team (Latest Contact Info) Description 08/26/2021 3:00 AM EDT Anti-Coag Telephone Visit [facility] [place] [address] RN Antiphospholipid antibody syndrome; Aortic [...] Progress Notes * Tucker Lane RN - 08/26/2021 3:00 AM EDT Images from the original note were not included. Anticoagulation Therapy Note Anticoagulation Summary As of 08/26/2021 INR goal: 2.5-3.5 TTR: 32.3 % (5.6 mo) INR used for dosin.9 (08/26/2021) Warfarin maintenance plan: 5 mg (5 mg x 1) every Mon; 7.5 mg (5 mg x 1.5) all other days Weekly warfarin total: 50 mg No change documented: Tucker Lane RN Plan last modified: Tucker Lane RN (08/05/2021) Next INR check: 09/03/2021 Priority: 1 Week Target end date: Indefinite Indications Antiphospholipid antibody----- use antiXa level to dose heparin. 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] Pulmonary embolism unspecified chronicity unspecified pulmonary embolism type unspecified whether acute cor pulmonale present [I26.99] Anticoagulation Episode Summary INR check location: Home Draw Preferred lab: [facility] Send INR reminders to: [facility] Comments: Home Monitor [phone] (M) Anticoagulation Care Providers Provider Role Specialty Phone number Gerardo Richter MD Responsible Cardiology [phone] Patient Assessment Service Type: INR Test Result [...] Warfarin Therapy Instructions August 2021 Details Sun Thue Wed Yaritza Fri Sat 1 2 3 4 5 6 7 8 9 10 11 12 13 14 15 16 17 18 19 20 21 22 23 5 mg See details 24 7.5 mg 25 7.5 mg 26 7.5 mg 27 7.5 mg 28 7.5 mg 29 7.5 mg 30 5 mg 31 7.5 mg Date Details 08/26 This INR check Date of next INR: 09/03/2021 How to take your warfarin dose To take: 5 mg Take 1 of the 5 mg tablets. To take: 7.5 mg Take 1.5 of the 5 mg tablets. Description 08/26 INR in range today, spoke with [...] Visit [facility] [place] [address] documented as of this encounter Visit Diagnoses Diagnosis Antiphospholipid antibody syndrome Primary hypercoagulable state Aortic valve prosthesis present Heart valve replaced by other means Pulmonary embolism, unspecified chronicity, unspecified pulmonary embolism type, unspecified whether acute cor pulmonale present documented in this encounter Care Teams Sew On Operator Relationship Specialty Start Date End Date Briana Timmons, WHITING MACHINE [place] [address] PCP - General Family Medicine 08/09/21 documented as of this encounter
--- OUTSIDE RECORDS SUMMARY | 2023-11-04 15:12 | XMS_ITS | Encounter Summary ---
[place] [address] Care Team Providers Care Housekeeper/Laundry Assistant Name Role Phone Briana Timmons APRN Primary Care Provider [phone] Encounter Details Date Type Department Care Team (Late st Contact Info) Description 09/09/2021 External Results [facility] [place] [address] Estelle Clarke Social History Tobacco Use Types [...] Visit [facility] [place] [address] documented as of this encounter Procedures Procedure Name Priority Date/Time Associated Diagnosis Comments EXTERNAL INR RESULTS PANEL Routine 09/09/2021 12:04 PM EDT documented in this encounter Results * (ABNORMAL) External INR Results Panel (09/09/2021 12:04 PM EDT) POCT INR 5.4(A) 0.9 - 1.1 HOME MONITOR Blood 09/09/2021 12:0 4 PM EDT Historical Provider POINT OF CARE GERSON T ORDERABLES HOME MONITOR documented in this encounter Visit Diagnoses Not on filedocumented in this encounter Care Teams Housekeeper/Laundry Assistant Relationship Specialty Start Date End Date Briana Timmons, CANAL BOAT [place]TAIN [place] [address] PCP - General Family Medicine 08/09/21 documented as of this encounter
--- OUTSIDE RECORDS SUMMARY | 2023-11-04 15:12 | XMS_ITS | Encounter Summary ---
[place] [address] Care Team Providers Care Word Processor Technician Name Role Phone Briana Timmons APRN Primary Care Provider [phone] Encounter Details Date Type Department Care Team (Late st Contact Info) Description 09/23/2021 External Results [facility] [place] [address] Estelle Clarke Social History Tobacco Use Types [...] Anti-Coag Telephone Visit [facility] [place] [address] documented as of this encounter Procedures Procedure Name Priority Date/Time Associated Diagnosis Comments EXTERNAL INR RESULTS PANEL Routine 09/23/2021 1:39 PM EDT documented in this encounter Results * (ABNORMAL) External INR Results Panel (09/23/2021 1:39 PM EDT) POCT INR 4.1(A) 0.9 - 1.1 HOME MONITOR Blood 09/23/2021 1:39 PM EDT Historical Provider POINT OF CARE GERSON T ORDERABLES HOME MONITOR documented in this encounter Visit Diagnoses Not on filedocumented in this encounter Care Teams Word Processor Technician Relationship Specialty Start Date End Date Briana Timmons, [place] [address] PCP - General Family Medicine 08/09/21 documented as of this encounter
--- OUTSIDE RECORDS SUMMARY | 2023-11-04 15:12 | XMS_ITS | Encounter Summary ---
[place] [address] Care Team Providers Care Cutting Machine Operator Helper Name Role Phone Briana Timmons APRN Primary Care Provider Encounter Details Date Type Department Care Team (Latest Contact Info) Description 09/11/2021 3:00 AM EDT Anti-Coag Telephone Visit [facility] [place] [phone] Shasta Delaney, [facility] Antiphospholipid antibody syndrome; Aortic valve prosthesis present; [...] [facility] - 09/11/2021 3:00 AM EDT Images from the original note were not included. Anticoagulation Therapy Note Anticoagulation Summary As of 09/11/2021 INR goal: 2.5-3.5 TTR: 34.6 % (6 mo) INR used for dosing: No new INR was available at the time of this encounter. Warfarin maintenance plan: 5 mg (5 mg x 1) every Mon; 7.5 mg (5 mg x 1.5) all other days Weekly warfarin total: 50 mg Plan last modified: Tucker Lane RN (08/05/2021) Next INR check: 09/16/2021 Priority: 1 Week Target end date: Indefinite Indications Antiphospholipid antibody----- use antiXa level to dose heparin. 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] Pulmonary embolism unspecified chronicity unspecified pulmonary embolism type unspecified whether acute cor pulmonale present [I26.99] Anticoagulation Episode Summary INR check location: Home Draw Preferred lab: [facility] Send INR reminders to: [facility] Comments: Home Monitor [phone] (M) Anticoagulation Care Providers Provider Role Specialty Phone number Gerardo Richter MD Responsible Cardiology [phone] Patient Assessment Service Type: INR Test Result [...] September 2021 Details Sun Thu Sat 1 2 3 4 5 6 7 8 7.5 mg See details 9 7.5 mg 10 7.5 mg 11 7.5 mg 12 7.5 mg 13 5 mg 14 15 16 17 18 19 20 21 22 23 24 25 26 27 28 29 30 Date Details 09/11 This INR check Date of next INR: 09/16/2021 How to take your warfarin dose To take: 5 mg Take 1 of the 5 mg tablets. To take: 7.5 mg Take 1.5 of the 5 mg tablets. Description 09/11/21: INR has come down and is [...] retest INR again in 1 week. Left VM kylie that we are closed . 08/12 [...] week. Confirmed patient is still taking Carafate. documented in this encounter Plan of Treatment Upcoming Encounters Date Type Department Care Team (Late st Contact Info) Description 11/11/2023 3:00 AM EDT Anti-Coag Telephone Visit [facility] [place] [phone] documented as of this encounter Procedures Procedure Name Priority Date/Time Associated Diagnosis Comments EXTERNAL INR RESULTS PANEL Routine 09/11/2021 documented in this encounter Results * (ABNORMAL) External INR Results Panel (09/11/2021) POCT INR 1.9(A) 0.9 - 1.1 ACELIS Blood 09/11/2021 Historical Provider POINT OF CARE GERSON T ORDERABLES ACELIS [address] [place], [place] [address] [phone] documented in this encounter Visit Diagnoses Diagnosis Antiphospholipid antibody syndrome Primary hypercoagulable state Aortic valve prosthesis present Heart valve replaced by other means Pulmonary embolism, unspecified chronicity, unspecified pulmonary embolism type, unspecified whether acute cor pulmonale present documented in this encounter Care Teams Cutting Machine Operator Helper Relationship Specialty Start Date End Date Briana Timmons, ROUTE AIDE Aniya [place] [address] PCP - General Family Medicine 08/09/21 documented as of this encounter
--- OUTSIDE RECORDS SUMMARY | 2023-11-04 15:12 | XMS_ITS | Encounter Summary ---
[place] [address] Care Team Providers Care Camouflage Specialist Name Role Phone TerranceMckenna hines SUELLEN Primary Care Provider [phone] Encounter Details Date Type Department Care Team (Late st Contact Info) Description 07/02/2021 External Results [facility] Centralized [place] [address] Estelle Clarke Social History Tobacco Use Types [...] Telephone Visit [facility] [place] [address] documented as of this encounter Procedures Procedure Name Priority Date/Time Associated Diagnosis Comments EXTERNAL INR RESULTS PANEL Routine 07/01/2021 12:00 PM EDT documented in this encounter Results * External INR Results Panel (07/01/2021 12:00 PM EDT) POCT INR 3.5 0.9 - 1.1 HOME MONITOR Blood 07/01/2021 12:0 0 PM EDT Historical Provider POINT OF CARE GERSON T ORDERABLES HOME MONITOR documented in this encounter Visit Diagnoses Not on filedocumented in this encounter Care Teams Camouflage Specialist Relationship Specialty Start Date End Date Mckenna Genao, SUELLEN [address] [place] [address] PCP - General Family Medicine 05/07/17 08/08/21 documented as of this encounter
--- OUTSIDE RECORDS SUMMARY | 2023-11-04 15:12 | XMS_ITS | Encounter Summary ---
[place] [address] Care Team Providers Care Clerk Of Court Name Role Phone Briana Timmons APRN Primary Care Provider [phone] Encounter Details Date Type Department Care Team (Latest Contact Info) Description 09/09/2021 3:00 AM EDT Anti-Coag Telephone Visit [facility] [place] [phone] Shasta Delaney, [facility] Antiphospholipid antibody syndrome; Aortic valve [...] this encounter Progress Notes * Shasta Delaney [facility] - 09/09/2021 3:00 AM EDT Images from the original note were not included. Anticoagulation Therapy Note Anticoagulation Summary As of 09/09/2021 INR goal: 2.5-3.5 TTR: 34.8 % (6 mo) INR used for dosin.4 (09/09/2021) Warfarin maintenance plan: 5 mg (5 mg x 1) every Mon; 7.5 mg (5 mg x 1.5) all other days Weekly warfarin total: 50 mg Plan last modified: Tucker Lane RN (08/05/2021) Next INR check: 09/11/2021 Priority: 1 Week Target end date: Indefinite Indications Antiphospholipid antibody----- use antiXa level to dose heparin. 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] Pulmonary embolism unspecified chronicity unspecified pulmonary embolism type unspecified whether acute cor pulmonale present [I26.99] Anticoagulation Episode Summary INR check location: Home Draw Preferred lab: [facility] Send INR reminders to: [facility] Comments: Home Monitor [phone] (M) Anticoagulation Care Providers Provider Role Specialty Phone number Gerardo Richter MD Responsible Cardiology [phone] Patient Assessment Service Type: INR Test Result INR Result: Out of Range Clinical Outcomes Negatives: Major bleeding event, Thromboembolic event, Anticoagulation-related hospital admission, Anticoagulation-related ED visit Patient Findings Positives: Change in health (vomiting 09/07/21), Change in diet/appetite (decreased since becoming ill 09/07/21), Bruising Negatives: Upcoming Travel, Planning or Currently , Recent Fall, Signs/symptoms of thrombosis, Signs/symptoms of bleeding, Laboratory test error suspected, Change in alcohol use, Change in activity, Upcoming invasive procedure, Emergency department visit, Upcoming dental procedure, Missed doses, Extra doses, Change in medications, Hospital admission, Other complaints Warfarin Therapy Instructions September 2021 Details Sun Mon Tue Wed Yaritza Fri Sat 1 2 3 4 5 6 Hold See details 7 Hold 8 7.5 mg 9 10 11 12 13 14 15 16 17 18 19 20 21 22 23 24 25 26 27 28 29 30 Date Details 09/09 This INR check Date of next INR: 09/11/2021 How to take your warfarin dose To take: 7.5 mg Take 1.5 of the 5 mg tablets. Hold Do not take your warfarin dose. See the Details table to the right for additional instructions. Description 09/09/21: INR supra-therapeutic. 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
--- OUTSIDE RECORDS SUMMARY | 2023-11-04 15:12 | XMS_ITS | Encounter Summary ---
[place] [address] Care Team Providers Care Food Counselor Name Role Phone Briana Timmons APRN Primary Care Provider [phone] Encounter Details Date Type Department Care Team (Late Contact Info) Description 10/08/2021 External Results [facility] Information Services [address] [place] [phone] Provider, His Benigno MD None Social History [...] Upcoming Encounters Date Type Department Care Team ([facility] Contact Info) Description 11/11/2023 3:00 AM EDT Anti-Coag Telephone Visit [facility] [place] [address] documented as of this encounter Procedures Procedure Name Priority Date/Time Associated Diagnosis Comments EXTERNAL INR RESULTS PANEL Routine 10/08/2021 12:53 PM EDT documented in this encounter Results * (ABNORMAL) External INR Results Panel (10/08/2021 12:53 PM EDT) POCT INR 4.2(A) 0.9 - 1.1 HOME MONITOR Blood 10/08/2021 12:5 3 PM EDT His [place] Provider POINT OF CARE TE ST ORDERABLES HOME MONITOR documented in this encounter Visit Diagnoses Not on filedocumented in this encounter Care Teams Food Counselor Relationship Specialty Start Date End Date Briana Timmons, HARBOUR [place] [address] PCP - General Family Medicine 08/09/21 documented as of this encounter
--- OUTSIDE RECORDS SUMMARY | 2023-11-04 15:12 | XMS_ITS | Encounter Summary ---
[place] [address] Care Team Providers Care Press Room Supervisor Name Role Phone Briana Timmons APRN Primary Care Provider [phone] Encounter Details Date Type Department Care Team (Latest Contact Info) Description 09/30/2021 3:00 AM EDT Anti-Coag Telephone Visit [facility] [place] [phone], PAIGE Antiphospholipid antibody syndrome; Aortic [...] Progress Notes * Tucker Lane RN - 09/30/2021 3:00 AM EDT Images from the original note were not included. Anticoagulation Therapy Note Anticoagulation Summary As of 09/30/2021 INR goal: 2.5-3.5 TTR: 37.0 % (6 mo) INR used for dosin.9 (09/30/2021) Warfarin maintenance plan: 5 mg (5 mg x 1) every Thu, Yaritza; 7.5 mg (5 mg x 1.5) all other days Weekly warfarin total: 47.5 mg No change documented: Tucker Lane RN Plan last modified: Shasta Delaney [facility] (09/23/2021) Next INR check: 10/07/2021 Priority: 1 Week Target end date: Indefinite Indications Antiphospholipid antibody----- use antiXa level to dose heparin. 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] Pulmonary embolism unspecified chronicity unspecified pulmonary embolism type unspecified whether acute cor pulmonale present [I26.99] Anticoagulation Episode Summary INR check location: Home Draw Preferred lab: [facility] Send INR reminders to: [facility] Comments: Home Monitor [phone] (M) Anticoagulation Care Providers Provider Role Specialty Phone number Gerardo Richter MD Responsible Cardiology [phone] Patient Assessment Service Type: INR Test Result [...] diet/appetite, Hospital admission, Bruising, Other complaints Comments: Start methotrexate 10/02 Warfarin Therapy Instructions September 2021 Details Sun Mon Thuu Fri Sat 1 2 3 4 5 6 7 8 9 10 11 12 13 14 15 16 17 18 19 20 21 22 23 24 25 26 27 5 mg See details 28 7.5 mg 29 7.5 mg 30 5 mg Date Details 09/30 This INR check How to take your warfarin dose To take: 5 mg Take 1 of the 5 mg tablets. To take: 7.5 mg Take 1.5 of the 5 mg tablets. Warfarin Therapy Instructions October 2021 Details Sun Mon e Thuu Fri Sat 1 7.5 mg 2 7.5 mg 3 7.5 mg 4 5 mg 5 6 7 8 9 10 11 12 13 14 15 16 17 18 19 20 21 22 23 24 25 26 27 28 29 30 31 Date Details No additional details Date of next INR: 10/07/2021 How to take your warfarin dose To take: 5 mg Take 1 of the 5 mg tablets. To take: 7.5 mg Take 1.5 of the 5 mg tablets. Description 09/30 INR in range [...] retest INR again in 1 week. Left allamaryana that we are closed . 08/12 INR [...] Anti-Coag Telephone Visit [facility] [place] [address] documented as of this encounter Visit Diagnoses Diagnosis Antiphospholipid antibody syndrome Primary hypercoagulable state Aortic valve prosthesis present Heart valve replaced by other means Pulmonary embolism, unspecified chronicity, unspecified pulmonary embolism type, unspecified whether acute cor pulmonale present documented in this encounter Care Teams Press Room Supervisor Relationship Specialty Start Date End Date Briana Timmons, CAFETERIA ASSOCIATE [place] [address] PCP - General Family Medicine 08/09/21 documented as of this encounter
--- OUTSIDE RECORDS SUMMARY | 2023-11-04 15:12 | XMS_ITS | Encounter Summary ---
[place] [address] Care Team Providers Care High Lift Driver Name Role Phone Briana Timmons APRN Primary Care Provider [phone] Encounter Details Date Type Department Care Team (Latest Contact Info) Description 08/19/2021 3:00 AM EDT Anti-Coag [facility]phone [facility] Centralized Anticoagulation [place] [phone] Fili Pickett, [facility] Antiphospholipid antibody syndrome; Aortic valve [...] Fili Pickett [facility] - 08/19/2021 3:00 AM EDT Images from the original note were not included. Anticoagulation Therapy Note Anticoagulation Summary As of 08/19/2021 INR goal: 2.5-3.5 TTR: 29.5 % (5.3 mo) INR used for dosin.0 (08/19/2021) Warfarin maintenance plan: 5 mg (5 mg x 1) every Mon; 7.5 mg (5 mg x 1.5) all other days Weekly warfarin total: 50 mg Plan last modified: Tucker Lane RN (08/05/2021) Next INR check: 08/26/2021 Priority: 1 Week Target end date: Indefinite Indications Antiphospholipid antibody----- use antiXa level to dose heparin. 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] Pulmonary embolism unspecified chronicity unspecified pulmonary embolism type unspecified whether acute cor pulmonale present [I26.99] Anticoagulation Episode Summary INR check location: Home Draw Preferred lab: [facility] Send INR reminders to: [facility] Comments: Home Monitor [phone] (M) Anticoagulation Care Providers Provider Role Specialty Phone number Gerardo Richter MD Responsible Cardiology [phone] Patient Assessment Service Type: INR Test Result [...] any missed doses. Warfarin Therapy Instructions August 2021 Details Thu Fri Sat 1 2 3 4 5 6 7 8 9 10 11 12 13 14 15 16 5 mg See details 17 7.5 mg 18 7.5 mg 19 7.5 mg 20 7.5 mg 21 7.5 mg 22 7.5 mg 23 5 mg 24 25 26 27 28 29 30 31 Date Details 08/19 This INR check Date of next INR: 08/26/2021 How to take your warfarin dose To take: 5 mg Take 1 of the 5 mg tablets. To take: 7.5 mg Take 1.5 of the 5 mg tablets. Description 08/19 INR in range. Continue on current [...] Anti-Coag Telephone [facility] Centralized Antico[place] [address] documented as of this encounter Visit Diagnoses Diagnosis Antiphospholipid antibody syndrome Primary hypercoagulable state Aortic valve prosthesis present Heart valve replaced by other means Pulmonary embolism, unspecified chronicity, unspecified pulmonary embolism type, unspecified whether acute cor pulmonale present documented in this encounter Care Teams High Lift Driver Relationship Specialty Start Date End Date Briana Timmons, VAT WASHER [place] [address] PCP - General Family Medicine 08/09/21 documented as of this encounter
--- OUTSIDE RECORDS SUMMARY | 2023-11-04 15:12 | XMS_ITS | Encounter Summary ---
[place] [address] Care Team Providers Care Inspector Chief Name Role Phone Briana Timmons APRN Primary Care Provider [phone] Encounter Details Date Type Department Care Team (Late Contact Info) Description 09/04/2021 External Results [facility] Information Services [address] [place] [phone] Provider, His Benigno MD None Social History [...] Visit [facility] Centralized [place] [address] documented as of this encounter Procedures Procedure Name Priority Date/Time Associated Diagnosis Comments EXTERNAL INR RESULTS PANEL Routine 09/04/2021 documented in this encounter Results * (ABNORMAL) External INR Results Panel (09/04/2021) POCT INR 3.5(A) 0.9 - 1.1 HOME MONITOR Blood 09/04/2021 His [place] Provider POINT OF CARE RAYRAY WALLIS ORDERABLES HOME MONITOR documented in this encounter Visit Diagnoses Not on filedocumented in this encounter Care Teams Inspector Chief Relationship Specialty Start Date End Date Briana Timmons, MATZO FORMING MACHINE OPERATOR [facility] [address] PCP - General Family Medicine 08/09/21 documented as of this encounter
--- OUTSIDE RECORDS SUMMARY | 2023-11-04 15:12 | XMS_ITS | Encounter Summary ---
[place] [address] Care Team Providers Care Coordinating Producer Name Role Phone Briana Timmons APRN Primary Care Provider [phone] Encounter Details Date Type Department Care Team (Late Contact Info) Description 08/26/2021 External Results [facility] Information Services [address] [place] [phone] Provider, His Benigno MD None Social History [...] Upcoming Encounters Date Type Department Care Team ([facility] Contact Info) Description 11/11/2023 3:00 AM EDT Anti-Coag Telephone Visit [facility] Centralized [place] [address] documented as of this encounter Procedures Procedure Name Priority Date/Time Associated Diagnosis Comments EXTERNAL INR RESULTS PANEL Routine 08/26/2021 12:45 PM EDT documented in this encounter Results * External INR Results Panel (08/26/2021 12:45 PM EDT) POCT INR 2.9 HOME MONITOR Blood 08/26/2021 12:4 5 PM EDT His [place] Provider POINT OF CARE RAYRAY WALLIS ORDERABLES HOME MONITOR documented in this encounter Visit Diagnoses Not on filedocumented in this encounter Care Teams Coordinating Producer Relationship Specialty Start Date End Date Briana Timmons, ICE CUTTER [address] [place] [address] PCP - General Family Medicine 08/09/21 documented as of this encounter
--- OUTSIDE RECORDS SUMMARY | 2023-11-04 15:12 | XMS_ITS | Encounter Summary ---
Author Organization [place] [address] Care Team Providers Care Able Bodied Watchman Name Role Phone SandraMckenna rodriguez SUELLEN Primary Care Provider [phone] Reason for Visit * Reason Comments Shortness of Breath Follow-up Encounter Details Date Type Department Care Team (Latest Contact Info) Description 07/01/2021 4:20 PM EDT TH Visit (TeleHealth) Cardiology at [address] [phone] Gerardo Richter MD [facility] [address] Anti-phospholipid antibody syndrome; FATIMA (dyspnea on exertion); S/P AVR Social History Tobacco Use Types Packs/Day Years [...] Progress Notes * Gerardo Richter MD - 07/01/2021 4:20 PM EDT CARDIOLOGY/VASCULAR MEDICINE TELE VISIT NOTE Cecilia Dumont 07/01/21 The patient consented to this being a virtual visit. HPI: Cecilia Dumont is a 51 y.o. year old female with a history of SLE with triple positive APLA, CVA, dilated CMY with recovered EF, AVR??who presents for follow-up. She was??admitted to [facility] cardiology in March 2020 with several weeks of pleuritic chest pain and FATIMA. CTA at outside hospital initially concerning for subsegmental PE w/o RV strain; however, consequent review with radiology at [facility] w/o evidence of PE or other lung pathology. Her TTE was unremarkable. Due to her symptoms, she underwent stress echo, which showed possible ischemia in RCA territory. Due to small territory of WMA, she was discharged with outpatient follow-up.??Consequent coronary CTA w/o obstructive CAD. PFTs normal. I last talked to her via telehealth in May 2021. She has had ongoing FATIMA, which was essentially normal with normal exercise capacity, normal cardiovascular response, and normal baseline PFTs. Nochanges in her symptoms otherwise from her last visit. Brief ROS: Activity level: Independent with ADLs No new orthopnea, PND, LE edema. No lightheadedness, dizziness, syncope/pre- syncope. No new CP. Medications: Current Outpatient Medications Medication Sig Dispense Refill ??? warfarin (Coumadin) 5 mg Tablet Variable [...] with patient. Objective Data: VS at home: NA Labs: Lab Results Component Value Date WBC 7.1 03/21/2020 HGB 14.0 03/21/2020 HCT 41.2 03/21/2020 MCV 93.8 03/21/2020 PLATELET 223 03/21/2020 No results for input(s): NA, K, CL, CO2, BUN, CREATININE, GLUCOSE in the last 168 hours. Lab Results Component Value Date INR 4.00 06/24/2021 Lab Results Component Value Date CHLPL 236 [...] an apical WMA and probable inferior ischemia. CPET 06/28/2021: Conclusion: This was a maximal effort study based on a peak RER of >1.0 and peak heart rate of >85%. The patient demonstrated a/an normal exercise capacity based on peak VO2 of 16.1 ml/kg/min (86% predicted). There was a normal cardiovascular response based on a normal ventilatory threshold, normal augmentation in blood pressure, O2 pulse, and normal ventilatory efficiency (overall VE/VCO2 slope). HR augmentation was blunted perhaps due to beta montse effect. The electrocardiogram displayed no myocardial ischemia and no [...] (RCA) was normal, free of disease.? Assessment: #1 Dyspnea on exertion, probable deconditioning #2 Triple positive APLA #3 History of AVR Mrs. Dumont?a very pleasant 51 woman with history of SLE and triple positive??APLA with consequent stroke, status post mechanical AVR,??admission in March 2020 for pleuritic chest pain and shortness of breath, initially concerning for pulmonary embolism, which had been ruled out, mildly abnormal stress test with inferior wall motion abnormality, although normal CTA coronaries who presents for follow-up for dyspnea and exertion. Her work-up has really been quite negative with negative CT coronary, and recent CPET was quite unremarkable for cardiac or pulmonary limitation. It is most likely that her shortness of breath is due to deconditioning. At this point, I have asked her to increase her exercise slowly and I think that she will feel much better as she improves her conditioning. Plan 1. Continue metoprolol succinate 50 mg daily, aspirin, and warfarin. 2. Telehealth visit in 6 months, or sooner if necessary. I spent a total of 10 minutes associated with this encounter including chart review, the patient encounter, and documentation, of which more than 50% was with direct patient contact. Gerardo Richter MD, MPH, RPVI, FACC, [facility] And Threat Support SpecialistSilk Screen Frame Assemblerdis[place] [address] documented in this encounter Plan of Treatment Upcoming Encounters Date Type Department Care Team (Late st Contact Info) Description 11/11/2023 3:00 AM EDT Anti-[facility]ag [facility] [place] [address] documented as of this encounter Visit Diagnoses Diagnosis Anti-phospholipid antibody syndrome Primary hypercoagulable state FATIMA (dyspnea on exertion) Other dyspnea and respiratory abnormality S/P AVR Heart valve replaced by other means documented in this encounter Care Teams Able Bodied Watchman Relationship Specialty Start Date End Date Mckenna Genao APRN [address] [place] [address] PCP - General Family Medicine 05/07/17 08/08/21 documented as of this encounter
--- OUTSIDE RECORDS SUMMARY | 2023-11-04 15:12 | XMS_ITS | Encounter Summary ---
[place] [address] Care Team Providers Care Pearl Hand Name Role Phone Briana Timmons APRN Primary Care Provider [phone] Encounter Details Date Type Department Care Team (Latest Contact Info) Description 10/08/2021 3:00 AM EDT Anti-Coag Telephone Visit [facility] [place] [phone], [place]IGE Antiphospholipid antibody syndrome; Aortic [...] Progress Notes * Tucker Lane RN - 10/08/2021 3:00 AM EDT Images from the original note were not included. Anticoagulation Therapy Note Anticoagulation Summary As of 10/08/2021 INR goal: 2.5-3.5 TTR: 39.0 % (6 mo) INR used for dosin.2 (10/08/2021) Warfarin maintenance plan: 5 mg (5 mg x 1) every Tue, Yaritza, Sat; 7.5 mg (5 mg x 1.5) all other days Weekly warfarin total: 45 mg Plan last modified: Tucker Lane RN (10/08/2021) Next INR check: 10/15/2021 Priority: 1 Week Target end date: Indefinite Indications Antiphospholipid antibody----- use antiXa level to dose heparin. 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] Pulmonary embolism unspecified chronicity unspecified pulmonary embolism type unspecified whether acute cor pulmonale present [I26.99] Anticoagulation Episode Summary INR check location: Home Draw Preferred lab: [facility] Send INR reminders to: [facility] Comments: Home Monitor [phone] (M) Anticoagulation Care Providers Provider Role Specialty Phone number Gerardo Richter MD Responsible Cardiology [phone] Patient Assessment Service Type: INR Test Result [...] Hospital admission, Bruising, Other complaints Comments: Started methotrexate 10/07 Warfarin Therapy Instructions October 2021 Details Sun Mon Tue Wed Yaritza Fri Sat 1 2 3 4 5 5 mg See details 6 7.5 mg 7 5 mg 8 7.5 mg 9 5 mg 10 7.5 mg 11 7.5 mg 12 5 mg 13 14 15 16 17 18 19 20 21 22 23 24 25 26 27 28 29 30 31 Date Details 10/08 This INR check Date of next INR: 10/15/2021 How to take your warfarin dose To take: 5 mg Take 1 of the 5 mg tablets. To take: 7.5 mg Take 1.5 of the 5 mg tablets. Description 10/08 INR elevated today, spoke with Cecilia, [...] Visit [facility] [place] [address] documented as of this encounter Visit Diagnoses Diagnosis Antiphospholipid antibody syndrome Primary hypercoagulable state Aortic valve prosthesis present Heart valve replaced by other means Pulmonary embolism, unspecified chronicity, unspecified pulmonary embolism type, unspecified whether acute cor pulmonale present documented in this encounter Care Teams Pearl Hand Relationship Specialty Start Date End Date Briana Timmons, [employer] [address] PCP - General Family Medicine 08/09/21 documented as of this encounter
--- OUTSIDE RECORDS SUMMARY | 2023-11-04 15:12 | XMS_ITS | Encounter Summary ---
[place] [address] Care Team Providers Care Building Services Engineer Name Role Phone Mckenna Genao RUBBER PRESS OPERATOR Primary Care Provider [phone] Encounter Details Date Type Department Care Team (Late Contact Info) Description 07/15/2021 External Results [facility] [address] [place] [phone] Provider, His Benigno MD None Social History [...] Upcoming Encounters Date Type Department Care Team ([facility] Contact Info) Description 11/11/2023 3:00 AM EDT Anti-Coag Telephone Visit [facility] Central[place] [address] documented as of this encounter Procedures Procedure Name Priority Date/Time Associated Diagnosis Comments EXTERNAL INR RESULTS PANEL Routine 07/15/2021 documented in this encounter Results * (ABNORMAL) External INR Results Panel (07/15/2021) POCT INR 3.9(A) 0.9 - 1.1 HOME MONITOR Blood 07/15/2021 His [place] Provider POINT OF CARE RAYRAY [place] ORDERABLES HOME MONITOR documented in this encounter Visit Diagnoses Not on filedocumented in this encounter Care Teams Building Services Engineer Relationship Specialty Start Date End Date Mckenna Genao, SUELLEN [address] [place] [address] PCP - General Family Medicine 05/07/17 08/08/21 documented as of this encounter
--- OUTSIDE RECORDS SUMMARY | 2023-11-04 15:12 | XMS_ITS | Encounter Summary ---
[place] [address] Care Team Providers Care Purchasing Agent Name Role Phone Briana Timmons APRN Primary Care Provider [phone] Encounter Details Date Type Department Care Team (Late st Contact Info) Description 08/29/2021 [place] [address] Lucy Ennis Social History Tobacco Use Types Packs/Day Years [...] 11/11/2023 3:00 AM EDT Anti-[place] [address] documented as of this encounter Visit Diagnoses Not on filedocumented in this encounter Care Teams Purchasing Agent Relationship Specialty Start Date End Date Briana Timmons APRN [address] [place] [address] PCP - General Family Medicine 08/09/21 documented as of this encounter
--- OUTSIDE RECORDS SUMMARY | 2023-11-04 15:13 | XMS_ITS | Encounter Summary ---
[place] [address] Care Team Providers Care Medical Asst Name Role Phone BirgitMckenna SUELLEN Primary Care Provider [phone] Encounter Details Date Type Department Care Team (Latest Contact Info) Description 04/24/2021 3:00 AM EST Anti-Coag Telephone Visit [facility] [place] [phone] Shasta Delaney, [facility] Antiphospholipid antibody syndrome; Aortic valve [...] Progress Notes * Shasta Delaney [facility] - 04/24/2021 3:00 AM EST Images from the original note were not included. Anticoagulation Therapy Note Anticoagulation Summary As of 04/24/2021 INR goal: 2.5-3.5 TTR: 27.1 % (1.4 mo) INR used for dosin.3 (04/24/2021) Warfarin maintenance plan: 7.5 mg (5 mg x 1.5) every e, Yaritza, Sat; 5 mg (5 mg x 1) all other days Weekly warfarin total: 42.5 mg Plan last modified: Shasta Delaney, [facility] (04/09/2021) Next INR check: 05/01/2021 Priority: 1 Week Target end date: Indefinite Indications Antiphospholipid antibody----- use antiXa level to dose heparin. 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] Pulmonary embolism unspecified chronicity unspecified pulmonary embolism type unspecified whether acute cor pulmonale present [I26.99] Anticoagulation Episode Summary INR check location: Outside Lab Preferred lab: EXTERNAL LAB Send INR reminders to: [facility] Comments: [facility] -PCP ( NO THURSDAY TESTING 24 hr TURN AROUND ON LABS) [phone] (M) SO Exp 02/21/2022 Anticoagulation Care Providers Provider Role Specialty Phone number Gerardo Richter MD Responsible Cardiology [phone] Patient Assessment Warfarin Therapy Instructions April 2021 Details Sun Mon Thu Wed Yaritza Fri Sat 1 2 3 4 5 6 7 8 9 10 11 12 13 14 15 16 17 18 19 5 mg See details 20 7.5 mg 21 5 mg 22 7.5 mg 23 5 mg 24 5 mg 25 7.5 mg 26 5 mg 27 28 29 30 31 Date Details 04/24 This INR check Date of next INR: 05/01/2021 How to take your warfarin dose To take: 5 mg Take 1 of the 5 mg tablets. To take: 7.5 mg Take 1.5 of the 5 mg tablets. Description 04/24/21: INR in range and trending up. Will give this dose one more week before adjusting. 04/17/21: INR in range. Continue on current dose of warfarin and retest INR again in 1 week. 04/09/21: INR from venous draw was 1.5 and POC on home monitor was 1.3. This is an acceptable variation and moving forward Cecilia will use her home monitor. Given her missed dose and recent supra therapeutic INRs, I will increase weekly dose 6% and have her test INR in 1 week. 04/08/21: Cecilia has an appointment for an INR 04/09/21 at 11:20am. She missed last night's dose of warfarin. Denies sxs of bruising or bleeding. 04/02/21 No INR as pt was unable to get transportation to the hospital lab. Pt reports she will tryto coordinate with her some day this week, but at the latest will make an appt to check herINR on Thursday. Added pt to [facility] schedule for Thursday04/08/21 03/26/21: INR on home monitor is low today. HANDKERCHIEF CUTTER result is still pending. Will dose her INR tonight and follow up tomorrow. Increased tonight's dose. - Cecilia's lab does not have any blue tubes. I dosed her until Thursday next week. She needs to coordinate a lab draw with her home monitor to confirm accuracy per Dr. Dyer's recommendation. She will try for this week however she needs to coordinate transportation. 03/22/21: INR has come down but still above range. Decreased dose down to 5mg daily. Cecilia will test INR Thursday at the lab and on her home monitor to compare results. 03/19: INR elevated today at 4.9. Denies med/diet changes, missed doses, s/sx of bleeding, and s/sxof clots. Per protocol will have her hold her warfarin dose tonight and will have her take 5 mg on Thu and . She states on Thursday at 1 pm she is scheduled to receive her home monitor and training so we will plan for her next INR check on Thursday. She will call [facility] if they do not show up and if she does not get her home monitor on Thursday. documented in this encounter Plan of Treatment Upcoming Encounters Date Type Department Care Team (Late st Contact Info) Description 11/11/2023 3:00 AM EDT Anti-Coag Telephone Visit [facility] [place] [phone] documented as of this encounter Visit Diagnoses Diagnosis Antiphospholipid antibody syndrome Primary hypercoagulable state Aortic valve prosthesis present Heart valve replaced by other means Pulmonary embolism, unspecified chronicity, unspecified pulmonary embolism type, unspecified whether acute cor pulmonale present documented in this encounter Care Teams Medical Asst Relationship Specialty Start Date End Date Mckenna Genao, PERCUSSION WELDING MACHINE OPERATOR [address] [place] [address] PCP - General Family Medicine 05/07/17 08/08/21 documented as of this encounter
--- OUTSIDE RECORDS SUMMARY | 2023-11-04 15:13 | XMS_ITS | Encounter Summary ---
[place] [address] Care Team Providers Care Glassware Maker Demonstrator Name Role Phone Mckenna Genao HISTORICAL ARCHEOLOGIST Primary Care Provider [phone] Encounter Details Date Type Department Care Team (Late Contact Info) Description 05/20/2021 External Results [facility] Information Services [address] [place] [phone] Provider, His Benigno MD None Social History [...] Upcoming Encounters Date Type Department Care Team ([facility] Contact Info) Description 11/11/2023 3:00 AM EDT Anti-Coag Telephone Visit [facility] [place] [address] documented as of this encounter Procedures Procedure Name Priority Date/Time Associated Diagnosis Comments EXTERNAL INR RESULTS PANEL Routine 05/20/2021 1:07 PM EST documented in this encounter Results * (ABNORMAL) External INR Results Panel (05/20/2021 1:07 PM EST) INR 2.10(A) EXTERNAL LAB Blood 05/20/2021 1:07 PM EST Historical Provider POINT OF CARE GERSON T ORDERABLES EXTERNAL LAB documented in this encounter Visit Diagnoses Not on filedocumented in this encounter Care Teams Glassware Maker Demonstrator Relationship Specialty Start Date End Date Mckenna Genao, SUELLEN [address] [place] [address] PCP - General Family Medicine 05/07/17 08/08/21 documented as of this encounter
--- OUTSIDE RECORDS SUMMARY | 2023-11-04 15:13 | XMS_ITS | Encounter Summary ---
[place] [address] Care Team Providers Care Lacing Operator Name Role Phone Mckenna Genao EINSTEIN BROS BAGELS ASSISTANT MANAGER Primary Care Provider [phone] Encounter Details Date Type Department Care Team (Late Contact Info) Description 06/03/2021 External Results [facility] Information Services [address] [place] [phone] Provider, His Benigno MD None Social History [...] Upcoming Encounters Date Type Department Care Team ([facility] Contact Info) Description 11/11/2023 3:00 AM EDT Anti-Coag Telephone Visit [facility] [place] [address] documented as of this encounter Procedures Procedure Name Priority Date/Time Associated Diagnosis Comments EXTERNAL INR RESULTS PANEL Routine 06/03/2021 12:14 PM EST documented in this encounter Results * (ABNORMAL) External INR Results Panel (06/03/2021 12:14 PM EST) INR 2.30(A) EXTERNAL LAB Blood 06/03/2021 12:1 4 PM EST Historical Provider POINT OF CARE GERSON T ORDERABLES EXTERNAL LAB documented in this encounter Visit Diagnoses Not on filedocumented in this encounter Care Teams Lacing Operator Relationship Specialty Start Date End Date Mckenna Genao, SUELLEN [address] [facility] [place] [address] PCP - General Family Medicine 05/07/17 08/08/21 documented as of this encounter
--- OUTSIDE RECORDS SUMMARY | 2023-11-04 15:13 | XMS_ITS | Encounter Summary ---
[place] [address] Care Team Providers Care Adjunct Mathematics Instructor Name Role Phone BirgitMckenna SUELLEN Primary Care Provider [phone] Encounter Details Date Type Department Care Team (Latest Contact Info) Description 05/01/2021 3:00 AM EST Anti-Coag Telephone Visit [facility] [place] [phone] Shasta Delaney, [facility] Antiphospholipid antibody syndrome; Aortic valve prosthesis [...] Progress Notes * Shasta Delaney RP - 05/01/2021 3:00 AM EST Images from the original note were not included. Anticoagulation Therapy Note Anticoagulation Summary As of 05/01/2021 INR goal: 2.5-3.5 TTR: 33.4 % (1.7 mo) INR used for dosin.2 (05/01/2021) Warfarin maintenance plan: 7.5 mg (5 mg x 1.5) every e, Yaritza, Sat; 5 mg (5 mg x 1) all other days Weekly warfarin total: 42.5 mg Plan last modified: Shasta Delaney, [facility] (04/09/2021) Next INR check: 05/08/2021 Priority: 1 Week Target end date: Indefinite Indications Antiphospholipid antibody----- use antiXa level to dose heparin. 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] Pulmonary embolism unspecified chronicity unspecified pulmonary embolism type unspecified whether acute cor pulmonale present [I26.99] Anticoagulation Episode Summary INR check location: Home Draw Preferred lab: [facility] Send INR reminders to: [facility] Comments: Home Monitor [facility] -PCP ( NO THURSDAY TESTING 24 hr TURN AROUND ON LABS) [phone] (M) SO Exp 02/21/2022 Anticoagulation Care Providers Provider Role Specialty Phone number Gerardo Richter MD Responsible Cardiology [phone] Patient Assessment Service Type: INR Test Result [...] Bruising, Other complaints Warfarin Therapy Instructions April 2021 Details Sun Mon e Wed Yaritza Fri Sat 1 2 3 4 5 6 7 8 9 10 11 12 13 14 15 16 17 18 19 20 21 22 23 24 25 26 7.5 mg See details 27 7.5 mg 28 5 mg 29 7.5 mg 30 5 mg 31 5 mg Date Details 05/01 This INR check How to take your warfarin dose To take: 5 mg Take 1 of the 5 mg tablets. To take: 7.5 mg Take 1.5 of the 5 mg tablets. Warfarin Therapy Instructions May 2021 Details Sun Mon e Wed Yaritza Fri Sat 1 7.5 mg 2 5 mg 3 4 5 6 7 8 9 10 11 12 13 14 15 16 17 18 19 20 21 22 23 24 25 26 27 28 Date Details No additional details Date of next INR: 05/08/2021 How to take your warfarin dose To take: 5 mg Take 1 of the 5 mg tablets. To take: 7.5 mg Take 1.5 of the 5 mg tablets. Description 05/01/21: INR slightly below range. Increase tonight's dose 6% as a one time increase. Test INR in 1week. 04/24/21: INR in range and trending up. [...] check herINR on Thursday. Added pt to [facility] schedule for Thursday04/08/21 03/26/21: INR on home monitor is low today. BITUMASTIC APPLIER result is still pending. Will dose her [...] INR check on Thursday. She will call [facility] if they do not show up and if she does not get her home monitor on Thursday. documented in this encounter Plan of Treatment Upcoming Encounters Date Type Department Care Team (Late st Contact Info) Description 11/11/2023 3:00 AM EDT Anti-Coag Telephone Visit [facility] [place] [phone] documented as of this encounter Visit Diagnoses Diagnosis Antiphospholipid antibody syndrome Primary hypercoagulable state Aortic valve prosthesis present Heart valve replaced by other means Pulmonary embolism, unspecified chronicity, unspecified pulmonary embolism type, unspecified whether acute cor pulmonale present documented in this encounter Care Teams Adjunct Mathematics Instructor Relationship Specialty Start Date End Date Mckenna Genao APRN [address] [place] [address] PCP - General Family Medicine 05/07/17 08/08/21 documented as of this encounter
--- OUTSIDE RECORDS SUMMARY | 2023-11-04 15:13 | XMS_ITS | Encounter Summary ---
[place] [address] Care Team Providers Care Art Consultant Name Role Phone BirgitMckenna SUELLEN Primary Care Provider [phone] Encounter Details Date Type Department Care Team (Latest Contact Info) Description 03/06/2021 4:00 AM EST Anti-Coag Telephone Visit [facility] [place] [phone] Shasta Delaney, [facility] Antiphospholipid antibody syndrome; [...] Progress Notes * Shasta Delaney RP - 03/06/2021 4:00 AM EST Images from the original note were not included. Anticoagulation Therapy Note Anticoagulation Summary As of 03/06/2021 INR goal: 2.5-3.5 TTR: -- INR used for dosin.80 (03/05/2021) Warfarin maintenance plan: No maintenance plan Next INR check: 03/11/2021 Target end date: Indefinite Indications Antiphospholipid antibody----- use antiXa level to dose heparin. 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] Pulmonary embolism unspecified chronicity unspecified pulmonary embolism type unspecified whether acute cor pulmonale present [I26.99] Anticoagulation Episode Summary INR check location: Outside Lab Preferred lab: EXTERNAL LAB Send INR reminders to: [facility] Comments: [facility] -PCP ( NO THURSDAY TESTING 24 hr TURN AROUND ON LABS) [phone] (M) SO Exp 02/21/2022 Anticoagulation Care Providers Provider Role Specialty Phone number Gerardo Richter MD Responsible Cardiology [phone] Patient Assessment Service Type: INR Test Result [...] Bruising, Other complaints Warfarin Therapy Instructions March 2021 Details Sun Thu Sat 1 Hold See details 2 Hold 3 5 mg 4 7.5 mg 5 5 mg 6 7.5 mg 7 8 9 10 11 12 13 14 15 16 17 18 19 20 21 22 23 24 25 26 27 28 29 30 31 Date Details 03/06 This INR check Date of next INR: 03/11/2021 How to take your warfarin dose To take: 5 mg Take 1 of the 5 mg tablets. To take: 7.5 mg Take 1.5 of the 5 mg tablets. Hold Do not take your warfarin dose. See the Details table to the right for additional instructions. Description 03/06/21: INR drawn on 03/05 remains elevated despite 19% dose reduction. Hold warfarin x 2 nights and then decrease dose ~ 17% (average daily dose of 7.5mg down to 6.25mg). Test INR Thursday. 03/05/21: INR not resulted due to insufficient qty. Cecilia reports a large bruise where she had the blood drawn. Given recently elevated INRs, I will have her decrease tonight. She will go to lab today, f/u tomorrow. 03/04/21: Spoke with Cecilia who notes she did have her blood drawn this afternoon, likely will not have result until tomorrow. Confirmed recent dosing and instructed her to take 7.5 mg tonight. Clinicwill follow [facility] with her tomorrow pending result. 02/26/21: INR supra therapeutic again. Hold 2 doses of warfarin and decrease weekly dose 19%. Test INR on Thursday. INR results are not available same day, if patient tests Thursday we will not get INR until Thursday. INR was called to RN at Urgent Care. I asked Cecilia to request they use the new order signed by Dr. Richter. Discussed with Cecilia today consistent intake of vit k. She was told in the past not to eat high vit k foods. She has chronic diarrhea/loose stools and this is likely leading to labile INRs. Denies sxs of bleeding and we reviewed when to seek medical attention. 02/25/21: INR will not be resulted before 5pm. I spoke with Cecilia and instructed her to continue oncurrent dose plan. Denies sxs of bleeding and reports hematuria has resolved. Has some old bruises that are slowly healing. I consulted Dr. Dyer and she reports that her lupus anticoagulant was not that strong. I don't think it will interfere much. I would suggest to test it out - checking INRvia phlebotomy and then check POC and see if you get the number within a reasonable range. If yes, then switch to POC. Cecilia is agreeable to this plan. (see below) 02/21/21: INR is sub-therapeutic today after a 3 day dose hold. Increase dose and test INR in 5 days. Essentially, we are trying to establish a new maintenance dose. (See below). Cecilia reports hematuria x 6 days. I discussed with her instances that require medical attention and sxs of bleeding thatneed to be reported to the [facility]. On 02/15 Cecilia reported that she has recently been admitted to [facility], was transfused and claims she almost bled out. She did say that they were working her up for Crohn's however I amnot sure if there was a diagnosis. Records have been requested from [facility]. Prior to the elevated INR on 02/14, Cecilia did have one in range INR on a weekly dose of 65mg. (Background: Cecilia wantedto transfer warfarin management to PCP in [facility] as she recently established care with a local [facility] however PCP refused to manage and requested that she resume care under Cardiology. Dr. Richter renewed referral on 02/20). I discussed with Cecilia that since records are not automatically sentto , she needs to call the [facility] anytime there is a change in health, a medication change, sxs of bruising/bleeding, a recent hospital admission or ED visit. There was discussion about a home monitor however given her dxs of Antiphospholipid antibody syndrome, it's unclear whether she can use a POC. I will request provider consult hematology to discuss this as having a home monitor could improveINR control. The critical result on 02/14 was [address] faxed to [facility] nor was is called/paged to a provider. For this reason, I will send a new SO to her lab requesting all INR results be faxed to us. 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
--- OUTSIDE RECORDS SUMMARY | 2023-11-04 15:13 | XMS_ITS | Encounter Summary ---
[place] [address] Care Team Providers Care Cyber Systems Operations Specialist Name Role Phone BirgitMckenna SUELLEN Primary Care Provider [phone] Encounter Details Date Type Department Care Team (Latest Contact Info) Description 04/02/2021 4:00 AM EST Anti-Coag Telephone Visit [facility] [place] [phone] Halle Kohli, [facility] Antiphospholipid antibody syndrome; Aortic valve prosthesis present; [...] as of this encounter Progress Notes * Halle Kohli [facility] - 04/02/2021 4:00 AM EST Images from the original note were not included. Anticoagulation Therapy Note Anticoagulation Summary As of 04/02/2021 INR goal: 2.5-3.5 TTR: 29.8 % (2 wk) INR used for dosing: No new INR was available at the time of this encounter. Warfarin maintenance plan: No maintenance plan No change documented: Halle Kohli [facility] Next INR check: 04/08/2021 Priority: 1 Week Target end date: Indefinite Indications Antiphospholipid antibody----- use antiXa level to dose heparin. 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] Pulmonary embolism unspecified chronicity unspecified pulmonary embolism type unspecified whether acute cor pulmonale present [I26.99] Anticoagulation Episode Summary INR check location: Outside Lab Preferred lab: EXTERNAL LAB Send INR reminders to: [facility] Comments: [facility] -PCP ( NO THURSDAY TESTING 24 hr TURN AROUND ON LABS) [phone] (M) SO Exp 02/21/2022 Anticoagulation Care Providers Provider Role Specialty Phone number Gerardo Richter MD Responsible Cardiology [phone] Patient Assessment Service Type: Overdue Callback Clinical Outcomes Negatives: Major bleeding event, Thromboembolic [...] complaints Warfarin Therapy Instructions March 2021 Details Thu Sat 1 2 3 4 5 6 7 8 9 10 11 12 13 14 15 16 17 18 19 20 21 22 23 24 25 26 27 28 See details 31 Date Details 04/02 This INR check Warfarin Therapy Instructions April 2021 Details Thu Sat 1 2 3 4 5 6 7 8 9 10 11 12 13 14 15 16 17 18 19 20 21 22 23 24 25 26 27 28 29 30 31 Date Details No additional details Date of next INR: 04/08/2021 Description 04/02/21 No INR as pt was unable to get transportation to the hospital lab. Pt reports she will tryto coordinate with her some day this week, but at the latest will make an appt to check herINR on Thursday. Added pt to [facility] schedule for Thursday04/08/21 03/26/21: INR on home monitor is low today. ERP ANALYST result is still pending. Will dose her [...] INR check on Thursday. She will call [facility] if they do not show up and if she does not get her home monitor on Thursday. 03/13/21: Cecilia went back to have labs drawn and the clinic was out of blue tubes. They did a fingerstick but said to her I don't even know if this machine works. Cecilia was able to connect with [employer] and her home monitor is on the why. Given she has tried multiple times this week to test and hasno other place to go for a test, I will accept the POC INR result. Patient was dosed until Thursday. 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
--- OUTSIDE RECORDS SUMMARY | 2023-11-04 15:13 | XMS_ITS | Encounter Summary ---
[place] [address] Care Team Providers Care Wool Merchant Name Role Phone SandraMckenna rodriguez SUELLEN Primary Care Provider [phone] Encounter Details Date Type Department Care Team (Late st Contact Info) Description 02/20/2021 External Results [facility] [place] [address] Estelle Clarke Social History Tobacco Use Types [...] Visit [facility] [place] [place] [address] documented as of this encounter Procedures Procedure Name Priority Date/Time Associated Diagnosis Comments EXTERNAL LAB HEMATOLOGY/COAG RESULTS PANEL Routine 02/20/2021 documented in this encounter Results * (ABNORMAL) Hematology / Coag External Results (02/20/2021) INR 1.60(EXTER NAL/ABN) EXTERNAL LAB Comment:[facility] [place] [facility] 02/20/2021 Historical Provider HEMATOLOGY ORDERA BLES EXTERNAL LAB documented in this encounter Visit Diagnoses Not on filedocumented in this encounter Care Teams Wool Merchant Relationship Specialty Start Date End Date Mckenna Genao, SOLAR INSTALLER [address] [place] [address] PCP - General Family Medicine 05/07/17 08/08/21 documented as of this encounter
--- OUTSIDE RECORDS SUMMARY | 2023-11-04 15:13 | XMS_ITS | Encounter Summary ---
[place] [address] Care Team Providers Care Home Health Rn Name Role Phone BirgitMckenna SUELLEN Primary Care Provider [phone] Encounter Details Date Type Department Care Team (Latest Contact Info) Description 05/20/2021 3:00 AM EST Anti-Coag Telephone Visit [facility] [place] [address] Shasta Delaney, [facility] - 05/20/2021 3:00 AM EST Images from the original note were not included. Anticoagulation Therapy Note Anticoagulation Summary As of 05/20/2021 INR goal: 2.5-3.5 TTR: 32.7 % (2.3 mo) INR used for dosin.10 (05/20/2021) Warfarin maintenance plan: 5 mg (5 mg x 1) every Thu, Thu, Thu; 7.5 mg (5 mg x 1.5) all other days Weekly warfarin total: 45 mg Plan last modified: Shasta Delaney [facility] (05/16/2021) Next INR check: 05/27/2021 Priority: 1 Week Target end date: Indefinite Indications Antiphospholipid antibody----- use antiXa level to dose heparin. 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] Pulmonary embolism unspecified chronicity unspecified pulmonary embolism type unspecified whether acute cor pulmonale present [I26.99] Anticoagulation Episode Summary INR check location: Home Draw Preferred lab: [facility] Send INR reminders to: [facility] Comments: Home Monitor [facility] -PCP ( NO THURSDAY TESTING 24 hr TURN AROUND ON LABS) [phone] (M) SO Exp 02/21/2022 Anticoagulation Care Providers Provider Role Specialty Phone number Gerardo Richter MD Responsible Cardiology [phone] Patient Assessment Service Type: INR Test Result INR Result: Out of Range Clinical Outcomes Negatives: Major bleeding event, Thromboembolic event, Anticoagulation-related hospital admission, Anticoagulation-related ED visit Patient Findings Positives: Change in medications (sucralfate 1g BID) Negatives: Upcoming Travel, Planning or Currently , Recent Fall, Signs/symptoms of thrombosis, Signs/symptoms of bleeding, Laboratory test error suspected, Change in health, Change in alcoholuse, Change in activity, Upcoming invasive procedure, Emergency department visit, Upcoming dental procedure, Missed doses, Extra doses, Change in diet/appetite, Hospital admission, Bruising, Other complaints Warfarin Therapy Instructions May 2021 Details Sun Thu Yaritza Fri Sat 1 2 3 4 5 6 7 8 9 10 11 12 13 14 7.5 mg See details 15 7.5 mg 16 5 mg 17 7.5 mg 18 5 mg 19 7.5 mg 20 7.5 mg 21 5 mg 22 23 24 25 26 27 28 Date Details 05/20 This INR check Date of next INR: 05/27/2021 How to take your warfarin dose To take: 5 mg Take 1 of the 5 mg tablets. To take: 7.5 mg Take 1.5 of the 5 mg tablets. Description 05/20/21: INR trending up. Increase dose another [...] Dr. Richter aware. Records requested from [facility]. 05/16/21: INR below range. Increase dose 6% based on past history of sensitivity to small dose changes. Cecilia reports black/tarry stools x 1 day. She denies illness, medication changes and denied SOB/dizziness/fatigue and will be going to urgent care for evaluation after this phone call. She understands when to call 911 but reports she is OK to make it to urgent care. I will follow up with Cecilia this afternoon. Dr. Richter notified. - Cecilia was released from the ED and prescribed carafate BID. She was currently waiting for the [facility] the pharmacy when I called. She understands warfarin dose plan for ag. I will follow up with her tomorrow for further discussion on dose plan in light of new medications and current bleeding situation. 05/08/21: INR in range. Continue on current dose of warfarin and retest INR again in 1 week. Cecilia had a telehealth visit with Dr. Richter today. No changes in medications. 05/01/21: INR slightly below range. Increase tonight's [...] have her test INR in 1 week. 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
--- OUTSIDE RECORDS SUMMARY | 2023-11-04 15:13 | XMS_ITS | Encounter Summary ---
[place] [address] Care Team Providers Care Stemmer Machine Name Role Phone BirgitMckenna SUELLEN Primary Care Provider [phone] Encounter Details Date Type Department Care Team (Latest Contact Info) Description 03/22/2021 3:00 AM EST Anti-Coag Telephone Visit [facility] [place] [address] Shasta Delaney, [facility] Antiphospholipid antibody syndrome; Aortic valve prosthesis [...] encounter Progress Notes * Shasta Delaney [facility] - 03/22/2021 3:00 AM EST Images from the original note were not included. Anticoagulation Therapy Note Anticoagulation Summary As of 03/22/2021 INR goal: 2.5-3.5 TTR: 20.7 % (1.4 wk) INR used for dosin.7 (03/22/2021) Warfarin maintenance plan: No maintenance plan Next INR check: 03/26/2021 Priority: 1 Week Target end date: Indefinite Indications Antiphospholipid antibody----- use antiXa level to dose heparin. 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] Pulmonary embolism unspecified chronicity unspecified pulmonary embolism type unspecified whether acute cor pulmonale present [I26.99] Anticoagulation Episode Summary INR check location: Outside Lab Preferred lab: EXTERNAL LAB Send INR reminders to: [facility] Comments: [facility] -PCP ( NO THURSDAY TESTING 24 hr TURN AROUND ON LABS) [phone] (M) SO Exp 02/21/2022 Anticoagulation Care Providers Provider Role Specialty Phone number Gerardo Richter MD Responsible Cardiology [phone] Patient Assessment Service Type: INR Test Result INR Result: Out of Range Clinical Outcomes Negatives: Major bleeding event, Thromboembolic event, Anticoagulation-related hospital admission, Anticoagulation-related ED visit Patient Findings Positives: Change in health (migraine headache), Bruising (on abdomen and finger) Negatives: Upcoming Travel, Planning or Currently , Recent Fall, Signs/symptoms of thrombosis, Signs/symptoms of bleeding, Laboratory test error suspected, Change in alcohol use, Change in activity, Upcoming invasive procedure, Emergency department visit, Upcoming dental procedure, Missed doses, Extra doses, Change in medications, Change in diet/appetite, Hospital admission, Other complaints Warfarin Therapy Instructions March 2021 Details Sun Thu Sat 1 2 3 4 5 6 7 8 9 10 11 12 13 14 15 16 17 5 mg See details 18 5 mg 19 5 mg 20 5 mg 21 22 23 24 25 26 27 28 29 30 31 Date Details 03/22 This INR check Date of next INR: 03/26/2021 How to take your warfarin dose To take: 5 mg Take 1 of the 5 mg tablets. Description 03/22/21: INR has come down but still [...] INR check on Thursday. She will call [facility] if they do not show up and if she does not get her home monitor on Thursday. 03/13/21: Cecilia went back to have labs drawn and the clinic was out of blue tubes. They did a fingerstick but said to her I don't even know if this machine works. Cecilia was able to connect with [employer] and her home monitor is on the why. Given she has tried multiple times this week to test and hasno other place to go for a test, I will accept the POC INR result. Patient was dosed until Thursday. 03/12/21: Sample drawn yesterday was a short draw and the lab ws unable to run the INR. Cecilia will go back tomorrow. She is calling [employer] today and will update the [facility] on the timeline for a home monitor. She has bruising where the blood was drawn. She will take 5mg x 2 and we should have results on 03/14. 03/06/21: INR drawn on 03/05 remains elevated [...] follow up with her tomorrow pending result. documented in this encounter Plan of Treatment Upcoming Encounters Date Type Department Care Team (Late st Contact Info) Description 11/11/2023 3:00 AM EDT Anti-Coag Telephone Visit [facility] [place] [address] documented as of this encounter Visit Diagnoses Diagnosis Antiphospholipid antibody syndrome Primary hypercoagulable state Aortic valve prosthesis present Heart valve replaced by other means Pulmonary embolism, unspecified chronicity, unspecified pulmonary embolism type, unspecified whether acute cor pulmonale present documented in this encounter Care Teams Stemmer Machine Relationship Specialty Start Date End Date Mckenna Genao, ADULT HIGH SCHOOL INSTRUCTOR [address] [place] [address] PCP - General Family Medicine 05/07/17 08/08/21 documented as of this encounter
--- OUTSIDE RECORDS SUMMARY | 2023-11-04 15:13 | XMS_ITS | Encounter Summary ---
[place] [address] Care Team Providers Care Wellness Trainer Name Role Phone KareenMckenna marlow SUELLEN Primary Care Provider [phone] Encounter Details Date Type Department Care Team (Latest Contact Info) Description 04/09/2021 External Results [facility] Information Services [address] [place] [address] Provider, His Benigno MD None Antiphospholipid antibody----- use antiXa level to dose heparin. ; Cerebral infarction, unspecified mechanism; Pulmonary embolism, unspecified chronicity, unspecified pulmonary embolism type, unspecified whether acute cor pulmonale present; Aortic valve prosthesis present Social History Tobacco Use Types Packs/Day [...] Upcoming Encounters Date Type Department Care Team ( Contact Info) Description 11/11/2023 3:00 AM EDT Anti-Coag Telephone Visit [facility] Centralized [place] [address] documented as of this encounter Procedures Procedure Name Priority Date/Time Associated Diagnosis Comments PROTHROMBIN TIME Routine 04/09/2021 11:2 0 AM EST Antiphospholipid antibody----- use antiXa level to dose heparin. Cerebral infarction, unspecified mechanism Pulmonary embolism, unspecified chronicity, unspecified pulmonary embolism type, unspecified whether acute cor pulmonale present Aortic valve prosthesis present documented in this encounter Results * (ABNORMAL) Prothrombin Time (04/09/2021 11:20 AM EST) PT 15.0(BIBLIOGRAPHIC SERVICES SPECIALIST AL/ABN) EXTERNAL LAB INR 1.50(BIBLIOGRAPHIC SERVICES SPECIALIST AL/ABN) EXTERNAL LAB Blood 04/09/2021 11:2 0 AM EST Gerardo Richter MD HEMATOLOGY ORDERABLE S EXTERNAL LAB documented in this encounter Visit Diagnoses Diagnosis Antiphospholipid antibody----- use antiXa level to dose heparin. Primary hypercoagulable state Cerebral infarction, unspecified mechanism Pulmonary embolism, unspecified chronicity, unspecified pulmonary embolism type, unspecified whether acute cor pulmonale present Aortic valve prosthesis present Heart valve replaced by other means documented in this encounter Care Teams Wellness Trainer Relationship Specialty Start Date End Date Mckenna Genao, COMMUNITY OUTREACH DIRECTOR [address] [place] [address] PCP - General Family Medicine 05/07/17 08/08/21 documented as of this encounter
--- OUTSIDE RECORDS SUMMARY | 2023-11-04 15:13 | XMS_ITS | Encounter Summary ---
[place] [address] Care Team Providers Care Clammer Name Role Phone SandraMckenna rodriguez SUELLEN Primary Care Provider [phone] Encounter Details Date Type Department Care Team (Late st Contact Info) Description 03/26/2021 External Results [facility] [place] [address] Estelle Clarke Social History Tobacco Use Types [...] Telephone Visit [facility] [place] [phone] documented as of this encounter Procedures Procedure Name Priority Date/Time Associated Diagnosis Comments EXTERNAL LAB HEMATOLOGY/COAG RESULTS PANEL Routine 03/26/2021 documented in this encounter Results * (ABNORMAL) Hematology / Coag External Results (03/26/2021) POC INR 1.8(EXTERNA L/ABN) 0.9 - 1.1 HOME MONITOR 03/26/2021 Historical Provider HEMATOLOGY ORDERA BLES HOME MONITOR documented in this encounter Visit Diagnoses Not on filedocumented in this encounter Care Teams Clammer Relationship Specialty Start Date End Date Mckenna Genao, COLD ROLLER [address] [place] [address] PCP - General Family Medicine 05/07/17 08/08/21 documented as of this encounter
--- OUTSIDE RECORDS SUMMARY | 2023-11-04 15:13 | XMS_ITS | Encounter Summary ---
[place] [address] Care Team Providers Care Bee Raiser Name Role Phone BirgitMckenna SUELLEN Primary Care Provider [phone] Encounter Details Date Type Department Care Team (Latest Contact Info) Description 06/17/2021 3:00 AM EDT Anti-Coag Telephone Visit [facility] [place] [address] Shasta Delaney, [facility] Antiphospholipid antibody syndrome; Aortic [...] this encounter Progress Notes * Shasta Delaney [facility] - 06/17/2021 3:00 AM EDT Images from the original note were not included. Anticoagulation Therapy Note Anticoagulation Summary As of 06/17/2021 INR goal: 2.5-3.5 TTR: 27.1 % (3.2 mo) INR used for dosin.30 (06/17/2021) Warfarin maintenance plan: 10 mg (5 mg x 2) every Thu, Yaritza; 7.5 mg (5 mg x 1.5) all other days Weekly warfarin total: 57.5 mg Plan last modified: Shasta Delaney [facility] (06/10/2021) Next INR check: 06/24/2021 Priority: 1 Week Target end date: Indefinite Indications Antiphospholipid antibody----- use antiXa level to dose heparin. 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] Pulmonary embolism unspecified chronicity unspecified pulmonary embolism type unspecified whether acute cor pulmonale present [I26.99] Anticoagulation Episode Summary INR check location: Home Draw [facility] Send INR reminders to: [facility] Comments: Home Monitor [facility] -PCP ( NO THURSDAY TESTING 24 hr TURN AROUND ON LABS) [phone] (M) SO Exp 02/21/2022 Anticoagulation Care Providers Provider Role Specialty Phone number Gerardo Richter MD Responsible Cardiology [phone] Patient Assessment Service Type: INR Test Result [...] Bruising, Other complaints Warfarin Therapy Instructions June 2021 Details Sun Mon Tue Wed Yaritza Fri Sat 1 2 3 4 5 6 7 8 9 10 11 12 13 14 10 mg See details 15 7.5 mg 16 7.5 mg 17 10 mg 18 7.5 mg 19 7.5 mg 20 7.5 mg 21 10 mg 22 23 24 25 26 27 28 29 30 31 Date Details 06/17 This INR check Date of next INR: 06/24/2021 How to take your warfarin dose To take: 7.5 mg Take 1.5 of the 5 mg tablets. To take: 10 mg Take 2 of the 5 mg tablets. Description 06/17/21: INR in range. Continue on current [...] Thursday. Dr. Richter aware. Records requested from [facility]. documented in this encounter Plan of Treatment Upcoming Encounters Date Type Department Care Team (Late st Contact Info) Description 11/11/2023 3:00 AM EDT Anti-Coag Telephone Visit [facility] [place] [address] documented as of this encounter Visit Diagnoses Diagnosis Antiphospholipid antibody syndrome Primary hypercoagulable state Aortic valve prosthesis present Heart valve replaced by other means Pulmonary embolism, unspecified chronicity, unspecified pulmonary embolism type, unspecified whether acute cor pulmonale present documented in this encounter Care Teams Bee Raiser Relationship Specialty Start Date End Date Mckenna Genao, BODY FORMER [address] [place] [address] PCP - General Family Medicine 05/07/17 08/08/21 documented as of this encounter
--- OUTSIDE RECORDS SUMMARY | 2023-11-04 15:13 | XMS_ITS | Encounter Summary ---
[place] [address] Care Team Providers Care Delivery Aide Name Role Phone BirgitMckenna SUELLEN Primary Care Provider [phone] Encounter Details Date Type Department Care Team (Latest Contact Info) Description 06/03/2021 3:00 AM EST Anti-Coag Telephone Visit [facility] [place] [phone] Shasta Delaney, [facility] Antiphospholipid [...] Delaney [facility] - 06/03/2021 3:00 AM EST Images from the original note were not included. Anticoagulation Therapy Note Anticoagulation Summary As of 06/03/2021 INR goal: 2.5-3.5 TTR: 27.2 % (2.8 mo) INR used for dosin.30 (06/03/2021) Warfarin maintenance plan: 7.5 mg (5 mg x 1.5) every day Weekly warfarin total: 52.5 mg Plan last modified: Shasta Delaney [facility] (06/03/2021) Next INR check: 06/10/2021 Priority: 1 Week Target end date: Indefinite Indications Antiphospholipid antibody----- use antiXa level to dose heparin. 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] Pulmonary embolism unspecified chronicity unspecified pulmonary embolism type unspecified whether acute cor pulmonale present [I26.99] Anticoagulation Episode Summary INR check location: Home Draw Preferred lab: [facility] Send INR reminders to: [facility] Comments: Home Monitor [facility] -PCP ( NO THURSDAY TESTING 24 hr TURN AROUND ON LABS) [phone] (M) SO Exp 02/21/2022 Anticoagulation Care Providers Provider Role Specialty Phone number Gerardo Richter MD Responsible Cardiology [phone] Patient Assessment Service Type: INR Test Result [...] complaints Warfarin Therapy Instructions May 2021 Details Thu Sat 1 2 3 4 5 6 7 8 9 10 11 12 13 14 15 16 17 18 19 20 21 22 23 24 25 26 27 28 7.5 mg See details Date Details 06/03 This INR check How to take your warfarin dose To take: 7.5 mg Take 1.5 of the 5 mg tablets. Warfarin Therapy Instructions June 2021 Details Thu Sat 1 7.5 mg 2 7.5 mg 3 7.5 mg 4 7.5 mg 5 7.5 mg 6 7.5 mg 7 7.5 mg 8 9 10 11 12 13 14 15 16 17 18 19 20 21 22 23 24 25 26 27 28 29 30 31 Date Details No additional details Date of next INR: 06/10/2021 How to take your warfarin dose To take: 7.5 mg Take 1.5 of the 5 mg tablets. Description 06/03/21: INR trending up and only slightly [...] Dr. Richter aware. Records requested from [facility]. 05/16/21: INR below range. Increase dose 6% [...] BID. She was currently waiting for the busto the pharmacy when I called. She understands warfarin dose plan for tonight. I will follow up with her tomorrow for further discussion on dose plan in light of new medications and current bleeding situation. 05/08/21: INR in range. Continue on current dose of warfarin and retest INR again in 1 week. Cecilia had a telehealth visit with Dr. Henkin today. No changes in medications. documented in this encounter Plan of Treatment Upcoming Encounters Date Type Department Care Team (Late st Contact Info) Description 11/11/2023 3:00 AM EDT Anti-Coag Telephone Visit [facility] [place] [address] documented as of this encounter Visit Diagnoses Diagnosis Antiphospholipid antibody syndrome Primary hypercoagulable state Aortic valve prosthesis present Heart valve replaced by other means Pulmonary embolism, unspecified chronicity, unspecified pulmonary embolism type, unspecified whether acute cor pulmonale present documented in this encounter Care Teams Delivery Aide Relationship Specialty Start Date End Date Mckenna Genao, SUELLEN [address] [place] [address] PCP - General Family Medicine 05/07/17 08/08/21 documented as of this encounter
--- OUTSIDE RECORDS SUMMARY | 2023-11-04 15:13 | XMS_ITS | Encounter Summary ---
[place] [address] Care Team Providers Care Spinneret Person Name Role Phone BirgitMckenna SUELLEN Primary Care Provider [phone] Encounter Details Date Type Department Care Team (Latest Contact Info) Description 04/09/2021 4:00 AM EST Anti-Coag Telephone Visit [facility] [place] [phone] Shasta Delaney, [facility] Antiphospholipid antibody [...] Progress Notes * Shasta Delaney RP - 04/09/2021 4:00 AM EST Images from the original note were not included. Anticoagulation Therapy Note Anticoagulation Summary As of 04/09/2021 INR goal: 2.5-3.5 TTR: 14.9 % (4 wk) INR used for dosin.50 (04/09/2021) Warfarin maintenance plan: 7.5 mg (5 mg x 1.5) every Tue, Yaritza, Sat; 5 mg (5 mg x 1) all other days Weekly warfarin total: 42.5 mg Plan last modified: Shasta Delaney [facility] (04/09/2021) Next INR check: 04/16/2021 Priority: 1 Week Target end date: Indefinite Indications Antiphospholipid antibody----- use antiXa level to dose heparin. 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] Pulmonary embolism unspecified chronicity unspecified pulmonary embolism type unspecified whether acute cor pulmonale present [I26.99] Anticoagulation Episode Summary INR check location: Outside Lab Preferred lab: EXTERNAL LAB Send INR reminders to: [facility] Comments: [facility] -PCP ( NO THURSDAY TESTING 24 hr TURN AROUND ON LABS) [phone] (M) SO Exp 02/21/2022 Anticoagulation Care Providers Provider Role Specialty Phone number Gerardo Richter MD Responsible Cardiology [phone] Patient Assessment Service Type: INR Test Result INR Result: Out of Range Clinical Outcomes Negatives: Major bleeding event, Thromboembolic event, Anticoagulation-related hospital admission, Anticoagulation-related ED visit Patient Findings Positives: Missed doses Negatives: Upcoming Travel, Planning or Currently , Recent Fall, Signs/symptoms of thrombosis, Signs/symptoms of bleeding, Laboratory test error suspected, Change in health, Change in alcoholuse, Change in activity, Upcoming invasive procedure, Emergency department visit, Upcoming dental procedure, Extra doses, Change in medications, Change in diet/appetite, Hospital admission, Bruising,Other complaints Warfarin Therapy Instructions April 2021 Details Sun Mon e Wed Yaritza Fri Sat 1 2 3 4 7.5 mg See details 5 5 mg 6 7.5 mg 7 5 mg 8 7.5 mg 9 5 mg 10 5 mg 11 7.5 mg 12 13 14 15 16 17 18 19 20 21 22 23 24 25 26 27 28 29 30 31 Date Details 04/09 This INR check Date of next INR: 04/16/2021 How to take your warfarin dose To take: 5 mg Take 1 of the 5 mg tablets. To take: 7.5 mg Take 1.5 of the 5 mg tablets. Description 04/09/21: INR from venous draw was 1.5 [...] check herINR on Thursday. Added pt to [facility] schedule for Thursday04/08/21 03/26/21: INR on home monitor is low today. NEUROLOGICAL SURGEON result is still pending. Will dose her [...] INR check on Thursday. She will call [facility] if they do not show up and if she does not get her home monitor on Thursday. 03/13/21: Cecilia went back to have labs drawn and the clinic was out of blue tubes. They did a fingerstick but said to her I don't even know if this machine works. Cecilia was able to connect with [employer] and her home monitor is on the [...] Telephone Visit [facility] [place] [address] documented as of this encounter Visit Diagnoses Diagnosis Antiphospholipid antibody syndrome Primary hypercoagulable state Aortic valve prosthesis present Heart valve replaced by other means Pulmonary embolism, unspecified chronicity, unspecified pulmonary embolism type, unspecified whether acute cor pulmonale present documented in this encounter Care Teams Spinneret Person Relationship Specialty Start Date End Date Mckenna Genao, SUELLEN [address] [place] [address] PCP - General Family Medicine 05/07/17 08/08/21 documented as of this encounter
--- OUTSIDE RECORDS SUMMARY | 2023-11-04 15:13 | XMS_ITS | Encounter Summary ---
[place] [address] Care Team Providers Care Medical Psychotherapist Name Role Phone BirgitMckenna SUELLEN Primary Care Provider [phone] Encounter Details Date Type Department Care Team (Latest Contact Info) Description 02/25/2021 4:00 AM EST Anti-Coag Telephone Visit [facility] [place] [phone] Shasta Delaney, [facility] Antiphospholipid [...] Progress Notes * Shasta Delaney RP - 02/25/2021 4:00 AM EST Images from the original note were not included. Anticoagulation Therapy Note Anticoagulation Summary As of 02/25/2021 INR goal: 2.5-3.5 TTR: -- INR used for dosing: No new INR was available at the time of this encounter. Warfarin maintenance plan: No maintenance plan Next INR check: 02/26/2021 Target end date: Indefinite Indications Antiphospholipid antibody----- use antiXa level to dose heparin. 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] Pulmonary embolism unspecified chronicity unspecified pulmonary embolism type unspecified whether acute cor pulmonale present [I26.99] Anticoagulation Episode Summary INR check location: Outside Lab Preferred lab: EXTERNAL LAB Send INR reminders to: [facility] Comments: [facility] -PCP ( NO THURSDAY TESTING 24 hr TURN AROUND ON LABS) [phone] (M) SO Exp 02/21/2022 Anticoagulation Care Providers Provider Role Specialty Phone number Gerardo Richter MD Responsible Cardiology [phone] Patient Assessment Service Type: INR Test Result Patient Findings Positives: Signs/symptoms of bleeding (hematuria has cleared ), Bruising (old healing bruises ) Warfarin Therapy Instructions February 2021 Details Sun Thu Wed Yaritza Fri Sat 1 2 3 4 5 6 7 8 9 10 11 12 13 14 15 16 17 18 19 20 21 22 10 mg See details 23 24 25 26 27 28 29 30 Date Details 02/25 This INR check Date of next INR: 02/26/2021 How to take your warfarin dose To take: 10 mg Take 2 of the 5 mg tablets. Description 02/25/21: INR will not be resulted before [...] POC. Cecilia is agreeable to this plan. 02/21/21: INR is sub-therapeutic today after a 3 day dose hold. Increase dose and test INR in 5 days. Essentially, we are trying to establish a new maintenance dose. (See below). Cecilia reports hematuria x 6 days. I discussed with her instances that require medical attention and sxs of bleeding thatneed to be reported to the [facility]. (see below) On 02/15 Cecilia reported that she has recently been admitted to [facility], was transfused and claims she almost bled out. She did say that they were working her up for Crohn's however I amnot sure if there was a diagnosis. Records have been requested from [place]. Prior to the elevated INR on 02/14, Cecilia did have one in range INR on a weekly dose of 65mg. (Background: Cecilia wantedto transfer warfarin management to PCP in [facility] as she recently established care with a local Web Developer Programmer however PCP refused to manage and requested that she resume care under Cardiology. Dr. Richter renewed referral on 02/20). I discussed with Cecilia that since records are not automatically sentto , she needs to call the [facility] anytime there is a change in health, [...] result on 02/14 was not faxed to [facility] nor was is called/paged to a provider. For this reason, I will send a new SO to her lab requesting all INR results be faxed to us. documented in this encounter Plan of Treatment Upcoming Encounters Date Type Department Care Team (Late st Contact Info) Description 11/11/2023 3:00 AM EDT Anti-Coag Telephone Visit [facility] [place] [address] documented as of this encounter Visit Diagnoses Diagnosis Antiphospholipid antibody syndrome Primary hypercoagulable state Aortic valve prosthesis present Heart valve replaced by other means Pulmonary embolism, unspecified chronicity, unspecified pulmonary embolism type, unspecified whether acute cor pulmonale present documented in this encounter Care Teams Medical Psychotherapist Relationship Specialty Start Date End Date Mckenna Genao, GAS APPLIANCE INSTALLER [address] [place] [facility] [place] [address] PCP - General Family Medicine 05/07/17 08/08/21 documented as of this encounter
--- OUTSIDE RECORDS SUMMARY | 2023-11-04 15:13 | XMS_ITS | Encounter Summary ---
[place] [address] Care Team Providers Care Sales And Marketing Professional Name Role Phone BirgitMckenna SUELLEN Primary Care Provider [phone] Encounter Details Date Type Department Care Team (Latest Contact Info) Description 03/13/2021 4:00 AM EST Anti-Coag Telephone Visit [facility] [place] [phone] Shasta Delaney, [facility] Antiphospholipid [...] Progress Notes * Shasta Delaney RP - 03/13/2021 4:00 AM EST Images from the original note were not included. Anticoagulation Therapy Note Anticoagulation Summary As of 03/13/2021 INR goal: 2.5-3.5 TTR: 0.0 % (1 d) INR used for dosin.0 (03/13/2021) Warfarin maintenance plan: No maintenance plan Next INR check: 03/19/2021 Target end date: Indefinite Indications Antiphospholipid antibody----- use antiXa level to dose heparin. 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] Pulmonary embolism unspecified chronicity unspecified pulmonary embolism type unspecified whether acute cor pulmonale present [I26.99] Anticoagulation Episode Summary INR check location: Outside Lab Preferred lab: EXTERNAL LAB Send INR reminders to: [facility] Comments: [facility] -PCP ( NO THURSDAY TESTING 24 hr TURN AROUND ON LABS) [phone] (M) SO Exp 02/21/2022 Anticoagulation Care Providers Provider Role Specialty Phone number Gerardo Richter MD Responsible Cardiology [phone] Patient Assessment Service Type: INR Test Result INR Result: Out of Range Clinical Outcomes Negatives: Major bleeding event, Thromboembolic event, Anticoagulation-related hospital admission, Anticoagulation-related ED visit Patient Findings Positives: Change in health (lupus flare), Bruising (from blood draw sites) Negatives: Upcoming Travel, Planning or Currently , [...] 7 8 7.5 mg See details 9 5 mg 10 7.5 mg 11 5 mg 12 5 mg 13 7.5 mg 14 5 mg 15 16 17 18 19 20 21 22 23 24 25 26 27 28 29 30 31 Date Details 03/13 This INR check Date of next INR: 03/19/2021 How to take your warfarin dose To take: 5 mg Take 1 of the 5 mg tablets. To take: 7.5 mg Take 1.5 of the 5 mg tablets. Description 03/13/21: Cecilia went back to have labs drawn and the clinic was out of blue tubes. They did a fingerstick but said to her I don't even know if this machine works. Cecilia was able to connect with [employer] and her home monitor is on the [...] will go back tomorrow. She is calling [employer] today and will update the [facility] on the timeline for a home monitor. [...] we reviewed when to seek medical attention. (see below) 02/25/21: INR will not be resulted before [...] bleeding thatneed to be reported to the [facility]. On 02/15 Cecilia reported that she has recently been admitted to [facility], was transfused and claims she almost bled out. She did say that they were working her up for Crohn's however I amnot sure if there was a diagnosis. Records have been requested from [place]. Prior to the elevated INR on 02/14, Cecilia did have one in range INR on a weekly dose of 65mg. (Background: Cecilia wantedto transfer warfarin management to PCP in [facility] as she recently established care with a local Floor Covering Contractor however PCP refused to manage and requested that she resume care under Cardiology. Dr. Richter renewed referral on 02/20). I discussed with Cecilia that since records are not automatically sentto , she needs to call the [facility] anytime there is a change in health, [...] result on 02/14 was not faxed to [facility] nor was is called/paged to a provider. For this reason, I will send a new SO to her lab requesting all INR results be faxed to us. documented in this encounter Plan of Treatment Upcoming Encounters Date Type Department Care Team (Late st Contact Info) Description 11/11/2023 3:00 AM EDT Anti-Coag Telephone Visit [facility] [place] [address] documented as of this encounter Procedures Procedure Name Priority Date/Time Associated Diagnosis Comments EXTERNAL LAB HEMATOLOGY/COAG RESULTS PANEL Routine 03/13/2021 documented in this encounter Results * (ABNORMAL) Hematology / Coag External Results (03/13/2021) POC INR 2.0(A) 0.9 - 1.1 EXTERNAL LAB 03/13/2021 Historical Provider HEMATOLOGY [facility] EXTERNAL [facility] documented in this encounter Visit Diagnoses Diagnosis Antiphospholipid antibody syndrome Primary hypercoagulable state 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
--- OUTSIDE RECORDS SUMMARY | 2023-11-04 15:13 | XMS_ITS | Encounter Summary ---
[place] [address] Care Team Providers Care Applications Developer Name Role Phone BirgitMckenna SUELLEN Primary Care Provider [phone] Encounter Details Date Type Department Care Team (Latest Contact Info) Description 02/20/2021 4:00 AM EST Anti-Coag Telephone Visit [facility] [place] [phone] Shasta Delaney, [facility] Antiphospholipid antibody syndrome; Aortic valve [...] Progress Notes * Shasta Delaney RP - 02/20/2021 4:00 AM EST Images from the original note were not included. Anticoagulation Therapy Note Anticoagulation Summary As of 02/20/2021 INR goal: 2.5-3.5 TTR: -- INR used for dosin.60 (02/20/2021) Warfarin maintenance plan: No maintenance plan Next INR check: 02/25/2021 Target end date: Indefinite Indications Antiphospholipid antibody----- use antiXa level to dose heparin. 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] Pulmonary embolism unspecified chronicity unspecified pulmonary embolism type unspecified whether acute cor pulmonale present [I26.99] Anticoagulation Episode Summary INR check location: Outside Lab Preferred lab: EXTERNAL LAB Send INR reminders to: [facility] Comments: [facility] -PCP ( NO THURSDAY TESTING 24 hr TURN AROUND ON LABS) [phone] (M) SO Exp 02/21/2022 Anticoagulation Care Providers Provider Role Specialty Phone number Gerardo Richter MD Responsible Cardiology [phone] Patient Assessment Service Type: INR Test Result INR Result: Out of Range Patient Findings Positives: Signs/symptoms of bleeding (hematuria), Change in health, Missed doses Warfarin Therapy Instructions February 2021 Details Sun Mon e Wed Yaritza Fri Sat 1 2 3 4 5 6 7 8 9 10 11 12 13 14 15 16 17 10 mg See details 18 10 mg 19 10 mg 20 5 mg 21 10 mg 22 23 24 25 26 27 28 29 30 Date Details 02/20 This INR check Date of next INR: 02/25/2021 How to take your warfarin dose To take: 5 mg Take 1 of the 5 mg tablets. To take: 10 mg Take 2 of the 5 mg tablets. Description 02/21/21: INR is sub-therapeutic today after a 3 day dose hold. Increase dose and test INR in 5 days. Essentially, we are trying to establish a new maintenance dose. (See below). Cecilia reports hematuria x 6 days. I discussed with her instances that require medical attention and sxs of bleeding thatneed to be reported to the [facility]. On 02/15 Cecilia reported that she has recently been admitted to [facility], was transfused and claims she almost bled out. She did say that they were working her up for Crohn's however I amnot sure if there was a diagnosis. Records have been requested from [place]. Prior to the elevated INR on 02/14, Cecilia did have one in range INR on a weekly dose of 65mg. (Background: Cecilia wantedto transfer warfarin management to PCP in [facility] as she recently established care with a local Transformer Builder however PCP refused to manage and requested that she resume care under Cardiology. Dr. Richter renewed referral on 02/20). I discussed with Cecilia that since records are not automatically sentto , she needs to call the [facility] anytime there is a change in health, [...] result on 02/14 was not faxed to [facility] nor was is called/paged to a provider. For this reason, I will send a new SO to her lab requesting all INR results be faxed to us. 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
--- OUTSIDE RECORDS SUMMARY | 2023-11-04 15:13 | XMS_ITS | Encounter Summary ---
[place] [address] Care Team Providers Care Registered Nurse Teacher Name Role Phone TerranceMckenna hines SUELLEN Primary Care Provider [phone] Encounter Details Date Type Department Care Team (Late st Contact Info) Description 05/01/2021 External Results [facility] [place] [address] Estelle Clarke Social History Tobacco Use Types [...] 11/11/2023 3:00 AM EDT Anti-Coag Telephone Visit [facility] [place] [address] documented as of this encounter Procedures Procedure Name Priority Date/Time Associated Diagnosis Comments EXTERNAL INR RESULTS PANEL Routine 05/01/2021 2:38 PM EST documented in this encounter Results * (ABNORMAL) External INR Results Panel (05/01/2021 2:38 PM EST) POC INR 2.2(EXTERNA L/ABN) 0.9 - 1.1 HOME MONITOR Blood 05/01/2021 2:38 PM EST Historical Provider POINT OF CARE GERSON T ORDERABLES HOME MONITOR documented in this encounter Visit Diagnoses Not on filedocumented in this encounter Care Teams Registered Nurse Teacher Relationship Specialty Start Date End Date Mckenna Genao, SUELLEN [address] [place] [address] PCP - General Family Medicine 05/07/17 08/08/21 documented as of this encounter
--- OUTSIDE RECORDS SUMMARY | 2023-11-04 15:13 | XMS_ITS | Encounter Summary ---
[place] [address] Care Team Providers Care Research Attorney Name Role Phone BirgitMckenna SUELLEN Primary Care Provider [phone] Encounter Details Date Type Department Care Team (Latest Contact Info) Description 05/17/2021 3:00 AM EST Anti-Coag Telephone Visit [facility] [place] [phone] Shasta Delaney, [facility] Antiphospholipid antibody syndrome; Aortic valve prosthesis present; [...] Progress Notes * Shasta Delaney RP - 05/17/2021 3:00 AM EST Images from the original note were not included. Anticoagulation Therapy Note Anticoagulation Summary As of 05/17/2021 INR goal: 2.5-3.5 TTR: 34.8 % (2.2 mo) INR used for dosing: No new INR was available at the time of this encounter. Warfarin maintenance plan: 5 mg (5 mg x 1) every Thu, Thu, Thu; 7.5 mg (5 mg x 1.5) all other days Weekly warfarin total: 45 mg Plan last modified: Shasta Delaney [facility] (05/16/2021) Next INR check: 05/20/2021 Priority: 1 Week Target end date: Indefinite Indications Antiphospholipid antibody----- use antiXa level to dose heparin. 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] Pulmonary embolism unspecified chronicity unspecified pulmonary embolism type unspecified whether acute cor pulmonale present [I26.99] Anticoagulation Episode Summary INR check location: Home Draw Preferred lab: [facility] Send INR reminders to: [facility] Comments: Home Monitor [facility] -PCP ( NO THURSDAY TESTING 24 hr TURN AROUND ON LABS) [phone] (M) SO Exp 02/21/2022 Anticoagulation Care Providers Provider Role Specialty Phone number Gerardo Richter MD Responsible Cardiology [phone] Patient Assessment Service Type: Other Patient Findings Positives: Change in health (sxs of GIB), Emergency department visit (05/16/21: [facility] for GIB), Missed doses, Change in medications (Carafate 1g BID) Warfarin Therapy Instructions May 2021 Details Sun Thuu Thu Sat 1 2 3 4 5 6 7 8 9 10 11 7.5 mg See details 12 7.5 mg 13 7.5 mg 14 5 mg 15 16 17 18 19 20 21 22 23 24 25 26 27 28 Date Details 05/17 This INR check Date of next INR: 05/20/2021 How to take your warfarin dose To take: 5 mg Take 1 of the 5 mg tablets. To take: 7.5 mg Take 1.5 of the 5 mg tablets. Description 05/17/21: Follow up call with Cecilia, she reports being prescribed Carafate 1g BID. Sucralfate may diminish the anticoagulant effect of warfarin. Since Cecilia missed a dose in addition to this interaction, I increased dose another 6% and will monitor INR on Thursday. Dr. Richter aware. Records requested from [facility]. 05/16/21: INR below range. Increase dose [...] called. She understands warfarin dose plan for toncristino. 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
--- OUTSIDE RECORDS SUMMARY | 2023-11-04 15:13 | XMS_ITS | Encounter Summary ---
[place] [address] Care Team Providers Care Rn Lpn Cna Name Role Phone SandraMckenna rodriguez SUELLEN Primary Care Provider [phone] Encounter Details Date Type Department Care Team (Late st Contact Info) Description 04/17/2021 External Results [facility] Centralized [place] [address] Estelle Clarke Social History Tobacco Use Types [...] Visit [facility] [place] [id number] documented as of this encounter Procedures Procedure Name Priority Date/Time Associated Diagnosis Comments EXTERNAL LAB HEMATOLOGY/COAG RESULTS PANEL Routine 04/17/2021 documented in this encounter Results * Hematology / Coag External Results (04/17/2021) POC INR 2.5 0.9 - 1.1 HOME MONITOR 04/17/2021 Historical Provider HEMATOLOGY ORDERA BLES HOME MONITOR documented in this encounter Visit Diagnoses Not on filedocumented in this encounter Care Teams Rn Lpn Cna Relationship Specialty Start Date End Date Mckenna Genao, CATHEAD OPERATOR [address] [place] [address] PCP - General Family Medicine 05/07/17 08/08/21 documented as of this encounter
--- OUTSIDE RECORDS SUMMARY | 2023-11-04 15:13 | XMS_ITS | Encounter Summary ---
[place] [address] Care Team Providers Care Residential Appliance Repair Technician Name Role Phone Mckenna Genao PASTER HAT LINING Primary Care Provider [phone] Encounter Details Date Type Department Care Team (Late Contact Info) Description 06/17/2021 External Results [facility] Information Services [address] [place] [phone] Provider, His Benigno MD None Social History [...] Telephone Visit [facility] Central[place] [address] documented as of this encounter Procedures Procedure Name Priority Date/Time Associated Diagnosis Comments EXTERNAL INR RESULTS PANEL Routine 06/17/2021 11:07 AM EDT documented in this encounter Results * External INR Results Panel (06/17/2021 11:07 AM EDT) INR 3.30 EXTERNAL LAB Blood 06/17/2021 11:0 7 AM EDT His [place] Provider POINT OF CARE [facility] ORDERABLES EXTERNAL LAB documented in this encounter Visit Diagnoses Not on filedocumented in this encounter Care Teams Residential Appliance Repair Technician Relationship Specialty Start Date End Date Mckenna Genao, SUELLEN [address] [place] [address] PCP - General Family Medicine 05/07/17 08/08/21 documented as of this encounter
--- OUTSIDE RECORDS SUMMARY | 2023-11-04 15:13 | XMS_ITS | Encounter Summary ---
[place] [address] Care Team Providers Care Patient Safety Sitter Name Role Phone BirgitMckenna SUELLEN Primary Care Provider [phone] Encounter Details Date Type Department Care Team (Latest Contact Info) Description 03/12/2021 4:00 AM EST Anti-Coag Telephone Visit [facility] [place] [phone] Shasta Delaney, [facility] Antiphospholipid antibody syndrome; Aortic [...] Progress Notes * Shasta Delaney RP - 03/12/2021 4:00 AM EST Images from the original note were not included. Anticoagulation Therapy Note Anticoagulation Summary As of 03/12/2021 INR goal: 2.5-3.5 TTR: -- INR used for dosing: No new INR was available at the time of this encounter. Warfarin maintenance plan: No maintenance plan Next INR check: 03/14/2021 Target end date: Indefinite Indications Antiphospholipid antibody----- use antiXa level to dose heparin. 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] Pulmonary embolism unspecified chronicity unspecified pulmonary embolism type unspecified whether acute cor pulmonale present [I26.99] Anticoagulation Episode Summary INR check location: Outside Lab Preferred lab: EXTERNAL LAB Send INR reminders to: [facility] Comments: [facility] -PCP ( NO THURSDAY TESTING 24 hr TURN AROUND ON LABS) [phone] (M) SO Exp 02/21/2022 Anticoagulation Care Providers Provider Role Specialty Phone number Gerardo Richter MD Responsible Cardiology [phone] Patient Assessment Service Type: Other Clinical Outcomes Negatives: Major bleeding event, Thromboembolic event, Anticoagulation-related hospital admission, Anticoagulation-related ED visit Patient Findings Positives: Bruising Negatives: Upcoming Travel, Planning or Currently [...] mg See details 8 5 mg 9 10 11 12 13 14 15 16 17 18 19 20 21 22 23 24 25 26 27 28 29 30 31 Date Details 03/12 This INR check Date of next INR: 03/14/2021 How to take your warfarin dose To take: 5 mg Take 1 of the 5 mg tablets. Description 03/12/21: Sample drawn yesterday was a short draw and the lab ws unable to run the INR. Cecilia will go back tomorrow. She is calling [employer] today and will update the [facility] on the timeline for a home monitor. [...] bleeding thatneed to be reported to the [facility]. On 02/15 Cecilia reported that she has recently been admitted to [facility], was transfused and claims she almost bled out. She did say that they were working her up for Crohn's however I amnot sure if there was a diagnosis. Records have been requested from [facility]. Prior to the elevated INR on 02/14, Cecilia did have one in range INR on a weekly dose of 65mg. (Background: Cecilia wantedto transfer warfarin management to PCP in [facility] as she recently established care with a local Instrument Mechanic however PCP refused to manage and requested that she resume care under Cardiology. Dr. Richter renewed referral on 02/20). I discussed with Cecilia that since records are not automatically sentto , she needs to call the [facility] anytime there is a change in [...] result on 02/14 was not faxed to [facility] nor was is called/paged to a provider. For this reason, I will send a new SO to her lab requesting all INR results be faxed to us. documented in this encounter Plan of Treatment Upcoming Encounters Date Type Department Care Team (Late st Contact Info) Description 11/11/2023 3:00 AM EDT Anti-Coag Telephone Visit [facility] [place] [address] documented as of this encounter Visit Diagnoses Diagnosis Antiphospholipid antibody syndrome Primary hypercoagulable state Aortic valve prosthesis present Heart valve replaced by other means Pulmonary embolism, unspecified chronicity, unspecified pulmonary embolism type, unspecified whether acute cor pulmonale present documented in this encounter Care Teams Patient Safety Sitter Relationship Specialty Start Date End Date Mckenna Genao, ARMORED CAR MESSENGER [address] [place] [address] PCP - General Family Medicine 05/07/17 08/08/21 documented as of this encounter
--- OUTSIDE RECORDS SUMMARY | 2023-11-04 15:13 | XMS_ITS | Encounter Summary ---
[place] [address] Care Team Providers Care Ornamenter Name Role Phone BirgitMckenna SUELLEN Primary Care Provider [phone] Encounter Details Date Type Department Care Team (Latest Contact Info) Description 06/10/2021 3:00 AM EST Anti-Coag Telephone Visit [facility] [place] [phone] Shasta Delaney, [facility] Antiphospholipid antibody syndrome; Aortic valve prosthesis [...] Progress Notes * Shasta Delaney RP - 06/10/2021 3:00 AM EST Images from the original note were not included. Anticoagulation Therapy Note Anticoagulation Summary As of 06/10/2021 INR goal: 2.5-3.5 TTR: 25.1 % (3 mo) INR used for dosin.8 (06/10/2021) Warfarin maintenance plan: 10 mg (5 mg x 2) every Thu, Yaritza; 7.5 mg (5 mg x 1.5) all other days Weekly warfarin total: 57.5 mg Plan last modified: Shasta Delaney [facility] (06/10/2021) Next INR check: 06/17/2021 Priority: 1 Week Target end date: Indefinite Indications Antiphospholipid antibody----- use antiXa level to dose heparin. 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] Pulmonary embolism unspecified chronicity unspecified pulmonary embolism type unspecified whether acute cor pulmonale present [I26.99] Anticoagulation Episode Summary INR check location: Home Draw Preferred lab: [facility] Send INR reminders to: [facility] Comments: Home Monitor [facility] -PCP ( NO THURSDAY TESTING 24 hr TURN AROUND ON LABS) [phone] (M) SO Exp 02/21/2022 Anticoagulation Care Providers Provider Role Specialty Phone number Gerardo Richter MD Responsible Cardiology [phone] Patient Assessment Service Type: INR Test Result [...] Therapy Instructions June 2021 Details Sun Mon Tuthu Yaritza Fri Sat 1 2 3 4 5 6 7 10 mg See details 8 7.5 mg 9 7.5 mg 10 10 mg 11 7.5 mg 12 7.5 mg 13 7.5 mg 14 10 mg 15 16 17 18 19 20 21 22 23 24 25 26 27 28 29 30 31 Date Details 06/10 This INR check Date of next INR: 06/17/2021 How to take your warfarin dose To take: 7.5 mg Take 1.5 of the 5 mg tablets. To take: 10 mg Take 2 of the 5 mg tablets. Description 06/10/21: INR subtherapeutic. Increase weekly does 9.5% [...] Dr. Richter aware. Records requested from [facility]. 05/16/21: INR below range. Increase dose [...] BID. She was currently waiting for the [facility] the pharmacy when I called. She understands [...] Dr. Richter today. No changes in medications. 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
--- OUTSIDE RECORDS SUMMARY | 2023-11-04 15:13 | XMS_ITS | Encounter Summary ---
[place] [address] Care Team Providers Care Retail Bakery Manager Name Role Phone Mckenna Genao SAAS ARCHITECT Primary Care Provider [phone] Encounter Details Date Type Department Care Team (Late Contact Info) Description 04/09/2021 External Results [facility] [employer] Information Services [address] [place] [phone] Provider, His Benigno MD None Social History [...] 11/11/2023 3:00 AM EDT Anti-Coag Telephone Visit [facility] [place] [address] documented as of this encounter Procedures Procedure Name Priority Date/Time Associated Diagnosis Comments EXTERNAL LAB HEMATOLOGY/COAG RESULTS PANEL Routine 04/09/2021 documented in this encounter Results * (ABNORMAL) Hematology / Coag External Results (04/09/2021) INR 1.30(Rider Ticket Worker al Lab) EXTERNAL LAB 04/09/2021 Historical Provider HEMATOLOGY [facility] EXTERNAL LAB documented in this encounter Visit Diagnoses Not on filedocumented in this encounter Care Teams Retail Bakery Manager Relationship Specialty Start Date End Date Mckenna Genao, SAAS ARCHITECT [address] [address] PCP - General Family Medicine 05/07/17 08/08/21 documented as of this encounter
--- OUTSIDE RECORDS SUMMARY | 2023-11-04 15:13 | XMS_ITS | Encounter Summary ---
[place] [address] Care Team Providers Care Funeral Service Licensee Name Role Phone BirgitMckenna SUELLEN Primary Care Provider [phone] Encounter Details Date Type Department Care Team (Latest Contact Info) Description 03/26/2021 4:00 AM EST Anti-Coag Telephone Visit [facility] [place] [phone] Shasta Delaney, [facility] Antiphospholipid antibody syndrome; Aortic valve prosthesis present; [...] Progress Notes * Shasta Delaney [facility] - 03/26/2021 4:00 AM EST Images from the original note were not included. Anticoagulation Therapy Note Anticoagulation Summary As of 03/26/2021 INR goal: 2.5-3.5 TTR: 29.8 % (2 wk) INR used for dosin.8 (03/26/2021) Warfarin maintenance plan: No maintenance plan Next INR check: 03/27/2021 Priority: 1 Week Target end date: Indefinite Indications Antiphospholipid antibody----- use antiXa level to dose heparin. 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] Pulmonary embolism unspecified chronicity unspecified pulmonary embolism type unspecified whether acute cor pulmonale present [I26.99] Anticoagulation Episode Summary INR check location: Outside Lab Preferred lab: EXTERNAL LAB Send INR reminders to: [facility] Comments: [facility] -PCP ( NO THURSDAY TESTING 24 hr TURN AROUND ON LABS) [phone] (M) SO Exp 02/21/2022 Anticoagulation Care Providers Provider Role Specialty Phone number Gerardo Richter MD Responsible Cardiology [phone] Patient Assessment Service Type: INR Test Result INR Result: Out of Range Warfarin Therapy Instructions March 2021 Details Sun Mon Thuu Fri Sat 1 2 3 4 5 6 7 8 9 10 11 12 13 14 15 16 17 18 19 20 21 7.5 mg See details 22 5 mg 23 24 25 26 27 28 29 30 31 Date Details 03/26 This INR check Date of next INR: 03/27/2021 How to take your warfarin dose To take: 5 mg Take 1 of the 5 mg tablets. To take: 7.5 mg Take 1.5 of the 5 mg tablets. Description 03/26/21: INR on home monitor is low today. OFFSET PRESSMAN result is still pending. Will dose her [...] INR check on Thursday. [facility] and if she does not get her home monitor on Thursday. 03/13/21: Cecilia went back to have labs drawn and the clinic was out of blue tubes. They did a fingerstick but said to her I don't even know if this machine works. Cecilia was able to connect with [employer] and her home monitor is on the [...] will go back tomorrow. She is calling [employer] today and will update the [facility] the timeline for a home [...] will go to lab today, f/u tomorrow. documented in this encounter Plan of Treatment Upcoming Encounters Date Type Department Care Team (Late st Contact Info) Description 11/11/2023 3:00 AM EDT Anti-Coag Telephone Visit [facility] [place] [phone] documented as of this encounter Visit Diagnoses Diagnosis Antiphospholipid antibody syndrome Primary hypercoagulable state Aortic valve prosthesis present Heart valve replaced by other means Pulmonary embolism, unspecified chronicity, unspecified pulmonary embolism type, unspecified whether acute cor pulmonale present documented in this encounter Care Teams Funeral Service Licensee Relationship Specialty Start Date End Date Mckenna Genao, LAUNDRY HOUSEKEEPER [address] [place] [address] PCP - General Family Medicine 05/07/17 08/08/21 documented as of this encounter
--- OUTSIDE RECORDS SUMMARY | 2023-11-04 15:13 | XMS_ITS | Encounter Summary ---
[place] [address] Care Team Providers Care Residential Property Manager Name Role Phone TerranceMckenna hines SUELLEN Primary Care Provider [phone] Encounter Details Date Type Department Care Team (Late st Contact Info) Description 06/10/2021 External Results [facility] [place] [address] Estelle Clarke Social History Tobacco Use Types [...] Telephone Visit [facility] [place] [address] documented as of this encounter Procedures Procedure Name Priority Date/Time Associated Diagnosis Comments EXTERNAL INR RESULTS PANEL Routine 06/10/2021 2:36 PM EST documented in this encounter Results * (ABNORMAL) External INR Results Panel (06/10/2021 2:36 PM EST) POC INR 1.8(A) 0.9 - 1.1 HOME MONITOR Blood 06/10/2021 2:36 PM EST Historical Provider POINT OF CARE [facility]ERSON T ORDERABLES HOME MONITOR documented in this encounter Visit Diagnoses Not on filedocumented in this encounter Care Teams Residential Property Manager Relationship Specialty Start Date End Date Mckenna Genao, SUELLEN [address] [place] [address] PCP - General Family Medicine 05/07/17 08/08/21 documented as of this encounter
--- OUTSIDE RECORDS SUMMARY | 2023-11-04 15:13 | XMS_ITS | Encounter Summary ---
[place] [address] Care Team Providers Care Installment Loan Collector Name Role Phone BirgitMckenna SUELLEN Primary Care Provider [phone] Encounter Details Date Type Department Care Team (Latest Contact Info) Description 04/08/2021 5:00 AM EST Anti-Coag Telephone Visit [facility] [place] [phone] Shasta Delaney, [facility] Antiphospholipid antibody syndrome; Aortic [...] Progress Notes * Shasta Delaney RP - 04/08/2021 5:00 AM EST Images from the original note were not included. Anticoagulation Therapy Note Anticoagulation Summary As of 04/08/2021 INR goal: 2.5-3.5 TTR: 29.8 % (2 wk) INR used for dosing: No new INR was available at the time of this encounter. Warfarin maintenance plan: No maintenance plan Next INR check: 04/10/2021 Priority: 1 Week Target end date: Indefinite Indications Antiphospholipid antibody----- use antiXa level to dose heparin. 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] Pulmonary embolism unspecified chronicity unspecified pulmonary embolism type unspecified whether acute cor pulmonale present [I26.99] Anticoagulation Episode Summary INR check location: Outside Lab Preferred lab: EXTERNAL LAB Send INR reminders to: [facility] Comments: [facility] -PCP ( NO THURSDAY TESTING 24 hr TURN AROUND ON LABS) [phone] (M) SO Exp 02/21/2022 Anticoagulation Care Providers Provider Role Specialty Phone number Gerardo Richter MD Responsible Cardiology [phone] Patient Assessment Service Type: Overdue Callback Patient Findings Positives: Missed doses Warfarin Therapy Instructions April 2021 Details Sun Thu Fri Sat 1 2 3 5 mg See details 4 7.5 mg 5 6 7 8 9 10 11 12 13 14 15 16 17 18 19 20 21 22 23 24 25 26 27 28 29 30 31 Date Details 04/08 This INR check Date of next INR: 04/10/2021 How to take your warfarin dose To take: 5 mg Take 1 of the 5 mg tablets. To take: 7.5 mg Take 1.5 of the 5 mg tablets. Description 04/08/21: Cecilia has an appointment for an [...] check herINR on Thursday. Added pt to [facility] schedule for Thursday04/08/21 03/26/21: INR on home monitor is low today. PROVIDER RELATIONS REPRESENTATIVE result is still pending. Will dose her [...] INR check on Thursday. She will call [facility] if they do not show up and if she does not get her home monitor on Thursday. 03/13/21: Cecilia went back to have labs drawn and the clinic was out of blue tubes. They did a fingerstick but said to her I don't even know if this machine works. Cecilia was able to connect with [employer] and her home monitor is on the [...] [facility] [place] [address] documented as of this encounter Visit Diagnoses Diagnosis Antiphospholipid antibody syndrome Primary hypercoagulable state Aortic valve prosthesis present Heart valve replaced by other means Pulmonary embolism, unspecified chronicity, unspecified pulmonary embolism type, unspecified whether acute cor pulmonale present documented in this encounter Care Teams Installment Loan Collector Relationship Specialty Start Date End Date Mckenna Genao, SUELLEN [address] [place] [address] PCP - General Family Medicine 05/07/17 08/08/21 documented as of this encounter
--- OUTSIDE RECORDS SUMMARY | 2023-11-04 15:13 | XMS_ITS | Encounter Summary ---
[place] [address] Care Team Providers Care Dielectric Press Operator Name Role Phone SandraMckenna rodriguez SUELLEN Primary Care Provider [phone] Encounter Details Date Type Department Care Team (Late st Contact Info) Description 03/22/2021 External Results [facility] Centralized [place] [address] Estelle Clarke Social History Tobacco Use Types [...] Visit [facility] Central[place] [id number] documented as of this encounter Procedures Procedure Name Priority Date/Time Associated Diagnosis Comments EXTERNAL LAB HEMATOLOGY/COAG RESULTS PANEL Routine 03/22/2021 documented in this encounter Results * (ABNORMAL) Hematology / Coag External Results (03/22/2021) POC INR 3.7(EXTERNA L/ABN) 0.9 - 1.1 HOME MONITOR 03/22/2021 Historical Provider HEMATOLOGY ORDERA BLES HOME MONITOR documented in this encounter Visit Diagnoses Not on filedocumented in this encounter Care Teams Dielectric Press Operator Relationship Specialty Start Date End Date Mckenna Genao, ARCHITECTURAL ASSOCIATE [address] [place] [address] PCP - General Family Medicine 05/07/17 08/08/21 documented as of this encounter
--- OUTSIDE RECORDS SUMMARY | 2023-11-04 15:13 | XMS_ITS | Encounter Summary ---
[place] [address] Care Team Providers Care Ship Pilot Name Role Phone TerranceMckenna hines SUELLEN Primary Care Provider [phone] Encounter Details Date Type Department Care Team (Late st Contact Info) Description 04/24/2021 External Results [facility] [place] [address] Estelle Clarke Social History Tobacco Use Types [...] Anti-Coag Telephone Visit [facility] [place] [address] documented as of this encounter Procedures Procedure Name Priority Date/Time Associated Diagnosis Comments EXTERNAL INR RESULTS PANEL Routine 04/24/2021 3:47 PM EST documented in this encounter Results * External INR Results Panel (04/24/2021 3:47 PM EST) POC INR 3.3 0.9 - 1.1 HOME MONITOR Blood 04/24/2021 3:47 PM EST Historical Provider POINT OF CARE GERSON T ORDERABLES HOME MONITOR documented in this encounter Visit Diagnoses Not on filedocumented in this encounter Care Teams Ship Pilot Relationship Specialty Start Date End Date Mckenna Genao, MANAGER CORPORATE [address] [place] [address] PCP - General Family Medicine 05/07/17 08/08/21 documented as of this encounter
--- OUTSIDE RECORDS SUMMARY | 2023-11-04 15:13 | XMS_ITS | Encounter Summary ---
Author [place] [address] Care Team Providers Care Apricot Washer Name Role Phone Birgit Mckenna SUELLEN Primary Care Provider [phone] Encounter Details Date Type Department Care Team (Latest Contact Info) Description 05/08/2021 3:00 AM EST Anti-Coag Telephone Visit [facility] [place] [address] Shasta Delaney, [facility] Antiphospholipid [...] Progress Notes * Shasta Delaney RP - 05/08/2021 3:00 AM EST Images from the original note were not included. Anticoagulation Therapy Note Anticoagulation Summary As of 05/08/2021 INR goal: 2.5-3.5 TTR: 35.4 % (1.9 mo) INR used for dosin.8 (05/08/2021) Warfarin maintenance plan: 7.5 mg (5 mg x 1.5) every Tue, Yaritza, Sat; 5 mg (5 mg x 1) all other days Weekly warfarin total: 42.5 mg Plan last modified: Shasta Delaney [facility] (04/09/2021) Next INR check: 05/15/2021 Priority: 1 Week Target end date: Indefinite Indications Antiphospholipid antibody----- use antiXa level to dose heparin. 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] Pulmonary embolism unspecified chronicity unspecified pulmonary embolism type unspecified whether acute cor pulmonale present [I26.99] Anticoagulation Episode Summary INR check location: Home Draw Preferred lab: [facility] Send INR reminders to: [facility] Comments: Home Monitor [facility] -PCP ( NO THURSDAY TESTING 24 hr TURN AROUND ON LABS) [phone] (M) SO Exp 02/21/2022 Anticoagulation Care Providers Provider Role Specialty Phone number Gerardo Richter MD Responsible Cardiology [phone] Patient Assessment Service Type: INR Test Result [...] Therapy Instructions May 2021 Details Sun Mon Tue Wed Yaritza Fri Sat 1 2 5 mg See details 3 7.5 mg 4 5 mg 5 7.5 mg 6 5 mg 7 5 mg 8 7.5 mg 9 5 mg 10 11 12 13 14 15 16 17 18 19 20 21 22 23 24 25 26 27 28 Date Details 05/08 This INR check Date of next INR: 05/15/2021 How to take your warfarin dose To take: 5 mg Take 1 of the 5 mg tablets. To take: 7.5 mg Take 1.5 of the 5 mg tablets. Description 05/08/21: INR in range. Continue on current [...] check herINR on Thursday. Added pt to [facility] schedule for Thursday04/08/21 03/26/21: INR on home monitor is low today. JAVA JSF DEVELOPER result is still pending. Will dose her [...] on her home monitor to compare results. documented in this encounter Plan of Treatment Upcoming Encounters Date Type Department Care Team (Late st Contact Info) Description 11/11/2023 3:00 AM EDT Anti-Coag Telephone Visit [facility] [place] [address] documented as of this encounter Visit Diagnoses Diagnosis Antiphospholipid antibody syndrome Primary hypercoagulable state Aortic valve prosthesis present Heart valve replaced by other means Pulmonary embolism, unspecified chronicity, unspecified pulmonary embolism type, unspecified whether acute cor pulmonale present documented in this encounter Care Teams Apricot Washer Relationship Specialty Start Date End Date Mckenna Genao, PROGRAM CHECKER [address] [place] [address] PCP - General Family Medicine 05/07/17 08/08/21 documented as of this encounter
--- OUTSIDE RECORDS SUMMARY | 2023-11-04 15:13 | XMS_ITS | Encounter Summary ---
[place] [address] Care Team Providers Care Lumber Sorter Machine Name Role Phone TerranceMckenna hines SUELLEN Primary Care Provider [phone] Encounter Details Date Type Department Care Team (Late st Contact Info) Description 05/16/2021 External Results [facility] Centralized [place] [address] Estelle Clarke Social History Tobacco Use Types [...] Telephone Visit [facility] Central[place] [address] documented as of this encounter Procedures Procedure Name Priority Date/Time Associated Diagnosis Comments EXTERNAL INR RESULTS PANEL Routine 05/16/2021 8:14 AM EST documented in this encounter Results * (ABNORMAL) External INR Results Panel (05/16/2021 8:14 AM EST) POC INR 1.8(A) 0.9 - 1.1 HOME MONITOR Blood 05/16/2021 8:14 AM EST Historical Provider POINT OF CARE GERSON T ORDERABLES HOME MONITOR documented in this encounter Visit Diagnoses Not on filedocumented in this encounter Care Teams Lumber Sorter Machine Relationship Specialty Start Date End Date Mckenna Genao, SUELLEN [address] [place] [address] PCP - General Family Medicine 05/07/17 08/08/21 documented as of this encounter
--- OUTSIDE RECORDS SUMMARY | 2023-11-04 15:13 | XMS_ITS | Encounter Summary ---
[place] [address] Care Team Providers Care Application Packaging Specialist Name Role Phone BirgitMckenna SUELLEN Primary Care Provider [phone] Encounter Details Date Type Department Care Team (Latest Contact Info) Description 05/28/2021 3:00 AM EST Anti-Coag Telephone Visit [facility] [place] [phone] Shasta Delaney, [facility] Antiphospholipid antibody syndrome; Aortic valve prosthesis [...] * Shasta Delaney [facility] - 05/28/2021 3:00 AM EST Images from the original note were not included. Anticoagulation Therapy Note Anticoagulation Summary As of 05/28/2021 INR goal: 2.5-3.5 TTR: 29.3 % (2.6 mo) INR used for dosin.20 (05/28/2021) Warfarin maintenance plan: 7.5 mg (5 mg x 1.5) every day Weekly warfarin total: 52.5 mg Plan last modified: Shasta Delaney [facility] (05/28/2021) Next INR check: 06/03/2021 Priority: 1 Week Target end date: Indefinite Indications Antiphospholipid antibody----- use antiXa level to dose heparin. 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] Pulmonary embolism unspecified chronicity unspecified pulmonary embolism type unspecified whether acute cor pulmonale present [I26.99] Anticoagulation Episode Summary INR check location: Home Draw Preferred lab: [facility] Send INR reminders to: [facility]AL[facility] CLIN[facility] Comments: Home Monitor [facility] -PCP ( NO THURSDAY TESTING 24 hr TURN AROUND ON LABS) [phone] (M) SO Exp 02/21/2022 Anticoagulation Care Providers Provider Role Specialty Phone number Gerardo Richter MD Responsible Cardiology [phone] Patient Assessment Service Type: INR Test Result INR Result: Out of Range Clinical Outcomes Negatives: Major bleeding event, Thromboembolic event, Anticoagulation-related hospital admission, Anticoagulation-related ED visit Patient Findings Positives: Change in medications (remains on Carafate) Negatives: Upcoming Travel, Planning or Currently [...] 21 22 10 mg See details 23 7.5 mg 24 7.5 mg 25 7.5 mg 26 7.5 mg 27 7.5 mg 28 7.5 mg Date Details 05/28 This INR check Date of next INR: 06/03/2021 How to take your warfarin dose To take: 7.5 mg Take 1.5 of the 5 mg tablets. To take: 10 mg Take 2 of the 5 mg tablets. Description 05/28/21: INR below range and trending down [...] Thursday. Dr. Richter aware. Records requested from [facility]. 05/16/21: INR below range. Increase dose [...] BID. She was currently waiting for the bus the pharmacy when I called. She understands [...] this dose one more week before adjusting. documented in this encounter Plan of Treatment Upcoming Encounters Date Type Department Care Team (Late st Contact Info) Description 11/11/2023 3:00 AM EDT Anti-Coag Telephone Visit [facility] [place] [address] documented as of this encounter Visit Diagnoses Diagnosis Antiphospholipid antibody syndrome Primary hypercoagulable state Aortic valve prosthesis present Heart valve replaced by other means Pulmonary embolism, unspecified chronicity, unspecified pulmonary embolism type, unspecified whether acute cor pulmonale present documented in this encounter Care Teams Application Packaging Specialist Relationship Specialty Start Date End Date Mckenna Genao, WRAPPER STEMMER HAND [address] [place] [address] PCP - General Family Medicine 05/07/17 08/08/21 documented as of this encounter
--- OUTSIDE RECORDS SUMMARY | 2023-11-04 15:13 | XMS_ITS | Encounter Summary ---
[place] [address] Care Team Providers Care Rifle Case Repairer Name Role Phone TerranceMckenna hines SUELLEN Primary Care Provider [phone] Encounter Details Date Type Department Care Team (Late st Contact Info) Description 02/21/2021 Orders Only [facility] [place] [phone] Shasta Delaney, [facility] Antiphospholipid antibody----- use antiXa level [...] Telephone Visit [facility] [place] [address] documented as of this encounter Visit Diagnoses Diagnosis Antiphospholipid antibody----- use antiXa level to dose heparin. Primary hypercoagulable state Cerebral infarction, unspecified mechanism Pulmonary embolism, unspecified chronicity, unspecified pulmonary embolism type, unspecified whether acute cor pulmonale present Aortic valve prosthesis present Heart valve replaced by other means documented in this encounter Care Teams Rifle Case Repairer Relationship Specialty Start Date End Date Mckenna Genao, SHEET METAL WORKER [address] [place] [address] PCP - General Family Medicine 05/07/17 08/08/21 documented as of this encounter
--- OUTSIDE RECORDS SUMMARY | 2023-11-04 15:13 | XMS_ITS | Encounter Summary ---
[place] [address] Care Team Providers Care Urogynaecologist Name Role Phone TerranceMckenna hines SUELLEN Primary Care Provider [phone] Encounter Details Date Type Department Care Team (Late st Contact Info) Description 05/08/[address] [facility] Centralized [place] [address] Estelle Clarke Social History Tobacco Use Types [...] Visit [facility] Centralized [place] [address] documented as of this encounter Procedures Procedure Name Priority Date/Time Associated Diagnosis Comments EXTERNAL INR RESULTS PANEL Routine 05/08/2021 3:57 PM EST documented in this encounter Results * External INR Results Panel (05/08/2021 3:57 PM EST) POC INR 2.8 0.9 - 1.1 HOME MONITOR Blood 05/08/2021 3:57 PM EST Historical Provider POINT OF CARE GERSON T ORDERABLES HOME MONITOR documented in this encounter Visit Diagnoses Not on filedocumented in this encounter Care Teams Urogynaecologist Relationship Specialty Start Date End Date Mckenna Genao, RETAIL SALES MERCHANDISER DEVELOPMENT [address] [place] [address] PCP - General Family Medicine 05/07/17 08/08/21 documented as of this encounter
--- OUTSIDE RECORDS SUMMARY | 2023-11-04 15:13 | XMS_ITS | Encounter Summary ---
[place] [address] Care Team Providers Care [facility] Name Role Phone BirgitMckenna SUELLEN Primary Care Provider [phone] Encounter Details Date Type Department Care Team (Latest Contact Info) Description 03/05/2021 4:00 AM EST Anti-Coag Telephone Visit [facility] [place] [address] Shasta Delaney, [facility] Antiphospholipid antibody syndrome; Aortic [...] Progress Notes * Shasta Delaney RP - 03/05/2021 4:00 AM EST Images from the original note were not included. Anticoagulation Therapy Note Anticoagulation Summary As of 03/05/2021 INR goal: 2.5-3.5 TTR: -- INR used for dosing: No new INR was available at the time of this encounter. Warfarin maintenance plan: No maintenance plan Next INR check: 03/06/2021 Target end date: Indefinite Indications Antiphospholipid antibody----- use antiXa level to dose heparin. 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] Pulmonary embolism unspecified chronicity unspecified pulmonary embolism type unspecified whether acute cor pulmonale present [I26.99] Anticoagulation Episode Summary INR check location: Outside Lab Preferred lab: EXTERNAL LAB Send INR reminders to: [facility] Comments: [facility] -PCP ( NO THURSDAY TESTING 24 hr TURN AROUND ON LABS) [phone] (M) SO Exp 02/21/2022 Anticoagulation Care Providers Provider Role Specialty Phone number Gerardo Richter MD Responsible Cardiology [phone] Patient Assessment Service Type: Other Patient Findings Positives: Bruising (on arm where blood was drawn ) Warfarin Therapy Instructions February 2021 Details Sun Thuu Fri Sat 1 2 3 4 5 6 7 8 9 10 11 12 13 14 15 16 17 18 19 20 21 22 23 24 25 26 27 28 29 30 5 mg See details Date Details 03/05 This INR check How to take your warfarin dose To take: 5 mg Take 1 of the 5 mg tablets. Warfarin Therapy Instructions March 2021 Details Thu Fri Sat 1 2 3 4 5 6 7 8 9 10 11 12 13 14 15 16 17 18 19 20 21 22 23 24 25 26 27 28 29 30 31 Date Details No additional details Date of next INR: 03/06/2021 Description 03/05/21: INR not resulted due to insufficient [...] bleeding thatneed to be reported to the [facility]. (see below) documented in this encounter Plan of Treatment Upcoming Encounters Date Type Department Care Team (Late st Contact Info) Description 11/11/2023 3:00 AM EDT Anti-Coag Telephone Visit [facility] [place] [address] documented as of this encounter Visit Diagnoses Diagnosis Antiphospholipid antibody syndrome Primary hypercoagulable state Aortic valve prosthesis present Heart valve replaced by other means Pulmonary embolism, unspecified chronicity, unspecified pulmonary embolism type, unspecified whether acute cor pulmonale present documented in this encounter Care Teams [facility] Relationship Specialty Start Date End Date Mckenna Genao APRN [address] [place] [address] PCP - General Family Medicine 05/07/17 08/08/21 documented as of this encounter
--- OUTSIDE RECORDS SUMMARY | 2023-11-04 15:13 | XMS_ITS | Encounter Summary ---
[place] [address] Care Team Providers Care Design Verification Engineer Name Role Phone BirgitMckenna SUELLEN Primary Care Provider [phone] Encounter Details Date Type Department Care Team (Latest Contact Info) Description 02/26/2021 4:00 AM EST Anti-Coag Telephone Visit [facility] [place] [address] Shasta Delaney, [facility] Antiphospholipid antibody syndrome; [...] Progress Notes * Shasta Delaney RP - 02/26/2021 4:00 AM EST Images from the original note were not included. Anticoagulation Therapy Note Anticoagulation Summary As of 02/26/2021 INR goal: 2.5-3.5 TTR: -- INR used for dosin.30 (02/25/2021) Warfarin maintenance plan: No maintenance plan Next INR check: 03/04/2021 Target end date: Indefinite Indications Antiphospholipid antibody----- use antiXa level to dose heparin. 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] Pulmonary embolism unspecified chronicity unspecified pulmonary embolism type unspecified whether acute cor pulmonale present [I26.99] Anticoagulation Episode Summary INR check location: Outside Lab Preferred lab: EXTERNAL LAB Send INR reminders to: [facility] Comments: [facility] -PCP ( NO THURSDAY TESTING 24 hr TURN AROUND ON LABS) [phone] (M) SO Exp 02/21/2022 Anticoagulation Care Providers Provider Role Specialty Phone number Gerardo Richter MD Responsible Cardiology [phone] Patient Assessment Service Type: INR Test Result INR Result: Out of Range Clinical Outcomes Negatives: Major bleeding event, Thromboembolic event, Anticoagulation-related hospital admission, Anticoagulation-related ED visit Patient Findings Positives: Change in health, Missed doses (held x 2), Change in diet/appetite (will start incorporating consistent intake of vit k containing foods) Negatives: Upcoming Travel, Planning or Currently , Recent Fall, Signs/symptoms of thrombosis, Signs/symptoms of bleeding, Laboratory test error suspected, Change in alcohol use, Change in activity, Upcoming invasive procedure, Emergency department visit, Upcoming dental procedure, Extra doses, Change in medications, Hospital admission, Bruising, Other complaints Warfarin Therapy Instructions February 2021 Details Sun Thu Sat 1 2 3 4 5 6 7 8 9 10 11 12 13 14 15 16 17 18 19 20 21 22 23 Hold See details 24 7.5 mg 25 7.5 mg 26 7.5 mg 27 7.5 mg 28 7.5 mg 29 30 Date Details 02/26 This INR check Date of next INR: 03/04/2021 How to take your warfarin dose To take: 7.5 mg Take 1.5 of the 5 mg tablets. Hold Do not take your warfarin dose. See the Details table to the right for additional instructions. Description 02/26/21: INR supra therapeutic again. Hold 2 [...] bleeding thatneed to be reported to the [facility]. (see below) documented in this encounter Plan of Treatment Upcoming Encounters Date Type Department Care Team (Late st Contact Info) Description 11/11/2023 3:00 AM EDT Anti-Coag Telephone Visit [facility] [place] [address] documented as of this encounter Visit Diagnoses Diagnosis Antiphospholipid antibody syndrome Primary hypercoagulable state Aortic valve prosthesis present Heart valve replaced by other means Pulmonary embolism, unspecified chronicity, unspecified pulmonary embolism type, unspecified whether acute cor pulmonale present documented in this encounter Care Teams Design Verification Engineer Relationship Specialty Start Date End Date Mckenna Genao, RAIL SPECIALIST [address] [place] [address] PCP - General Family Medicine 05/07/17 08/08/21 documented as of this encounter
--- OUTSIDE RECORDS SUMMARY | 2023-11-04 15:13 | XMS_ITS | Encounter Summary ---
Author [place] [address] Care Team Providers Care Plumbing Contractor Name Role Phone Mckenna Genao APRN Primary Care Provider [phone] Encounter Details Date Type Department Care Team (Late st Contact Info) Description 03/04/2021 4:00 AM EST Anti-Coag Telephone Visit [facility] [place] [address] Es Nelson, [facility] Social History Tobacco Use Types Packs/Day Years [...] as of this encounter Progress Notes * Es Nelson, [facility] - 03/04/2021 4:00 AM EST Images from the original note were not included. Anticoagulation Therapy Note Anticoagulation Summary As of 03/04/2021 INR goal: 2.5-3.5 TTR: -- INR used for dosing: No new INR was available at the time of this encounter. Warfarin maintenance plan: No maintenance plan Next INR check: 03/05/2021 Target end date: Indefinite Indications Antiphospholipid antibody----- use antiXa level to dose heparin. 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] Pulmonary embolism unspecified chronicity unspecified pulmonary embolism type unspecified whether acute cor pulmonale present [I26.99] Anticoagulation Episode Summary INR check location: Outside Lab Preferred lab: EXTERNAL LAB Send INR reminders to: [facility] Comments: [facility] -PCP ( NO THURSDAY TESTING 24 hr TURN AROUND ON LABS) [phone] (M) SO Exp 02/21/2022 Anticoagulation Care Providers Provider Role Specialty Phone number Gerardo Richter MD [facility] Cardiology [phone] Patient Assessment Service Type: Other Clinical Outcomes [...] Warfarin Therapy Instructions February 2021 Details Sun Thue Wed Yaritza Fri Sat 1 2 3 4 5 6 7 8 9 10 11 12 13 14 15 16 17 18 19 20 21 22 23 24 25 26 27 28 29 7.5 mg See details 30 Date Details 03/04 This INR check Date of next INR: 03/05/2021 How to take your warfarin dose To take: 7.5 mg Take 1.5 of the 5 mg tablets. Description 03/04/21: Spoke with Cecilia who notes she [...] bleeding thatneed to be reported to the [facility]. (see below) documented in this encounter Plan of Treatment Upcoming Encounters Date Type Department Care Team (Late st Contact Info) Description 11/11/2023 3:00 AM EDT Anti-Coag Telephone Visit [facility] [place] [address] documented as of this encounter Visit Diagnoses Not on filedocumented in this encounter Care Teams Plumbing Contractor Relationship Specialty Start Date End Date Mckenna Genao, SUELLEN [address] [place] [address] PCP - General Family Medicine 05/07/17 08/08/21 documented as of this encounter
--- OUTSIDE RECORDS SUMMARY | 2023-11-04 15:13 | XMS_ITS | Encounter Summary ---
[place] [address] Care Team Providers Care Lining Maker Hand Name Role Phone Birgit Mckenna KEN Primary Care Provider [phone] Encounter Details Date Type Department Care Team (Latest Contact Info) Description 03/19/2021 4:00 AM EST Anti-Coag Telephone Visit [facility] Centralized [place] [phone] Lindsey Menard, [facility] Antiphospholipid antibody syndrome; Aortic valve prosthesis [...] as of this encounter Progress Notes * Lindsey Menard, [facility] - 03/19/2021 4:00 AM EST Images from the original note were not included. Anticoagulation Therapy Note Anticoagulation Summary As of 03/19/2021 INR goal: 2.5-3.5 TTR: 29.6 % (1 wk) INR used for dosin.9 (03/19/2021) Warfarin maintenance plan: No maintenance plan Next INR check: 03/22/2021 Priority: 1 Week Target end date: Indefinite Indications Antiphospholipid antibody----- use antiXa level to dose heparin. 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] Pulmonary embolism unspecified chronicity unspecified pulmonary embolism type unspecified whether acute cor pulmonale present [I26.99] Anticoagulation Episode Summary INR check location: Outside Lab Preferred lab: EXTERNAL LAB Send INR reminders to: [facility] CENTRALIZED ANTICOAGULATION CLINIC Comments: [facility] -PCP ( NO THURSDAY TESTING 24 hr TURN AROUND ON LABS) [phone] (M) SO Exp 02/21/2022 Anticoagulation Care Providers Provider Role Specialty Phone number Gerardo Richter MD Responsible Cardiology [phone] Patient Assessment Service Type: INR Test Result [...] 8 9 10 11 12 13 14 Hold See details 15 5 mg 16 5 mg 17 7.5 mg 18 19 20 21 22 23 24 25 26 27 28 29 30 31 Date Details 03/19 This INR check Date of next INR: 03/22/2021 How to take your warfarin dose To take: 5 mg Take 1 of the 5 mg tablets. To take: 7.5 mg Take 1.5 of the 5 mg tablets. Hold Do not take your warfarin dose. See the Details table to the right for additional instructions. Description 03/19: INR elevated today at 4.9. Denies [...] INR check on Thursday. She will call [facility] if they do not show up and if she does not get her home monitor on Thursday. 03/13/21: Cecilia went back to have labs drawn and the clinic was out of blue tubes. They did a fingerstick but said to her I don't even know if this machine works. Cecilia was able to connect with [employer] and her home monitor is on the [...] will go back tomorrow. She is calling [employer] today and will update the [facility] on the timeline for a home monitor. [...] Visit [facility] Centralized [place] [address] documented as of this encounter Visit Diagnoses Diagnosis Antiphospholipid antibody syndrome Primary hypercoagulable state Aortic valve prosthesis present Heart valve replaced by other means Pulmonary embolism, unspecified chronicity, unspecified pulmonary embolism type, unspecified whether acute cor pulmonale present documented in this encounter Care Teams Lining Maker Hand Relationship Specialty Start Date End Date Mckenna Genao, BESSEMER CONVERTER OPERATOR [address] [place] [address] PCP - General Family Medicine 05/07/17 08/08/21 documented as of this encounter
--- OUTSIDE RECORDS SUMMARY | 2023-11-04 15:13 | XMS_ITS | Encounter Summary ---
[place] [address] Care Team Providers Care Marine Designer Name Role Phone Birgit Mckenna KEN Primary Care Provider [phone] Reason for Visit * Reason Onset Date Comments Medication Refill 04/26/2021 Encounter Details Date Type Department Care Team (Late st Contact Info) Description 04/26/2021 Refill [facility] [place] [phone] Shasta Delaney [facility] Aortic valve prosthesis present; Chronic septic pulmonary [...] Anti-Coag Telephone Visit [facility] [place] [address] documented as of this encounter Visit Diagnoses Diagnosis Aortic valve prosthesis present Heart valve replaced by other means 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
--- OUTSIDE RECORDS SUMMARY | 2023-11-04 15:13 | XMS_ITS | Encounter Summary ---
[place] [address] Care Team Providers Care Tire Repairman Name Role Phone BirgitMckenna SUELLEN Primary Care Provider [phone] Encounter Details Date Type Department Care Team (Latest Contact Info) Description 04/17/2021 3:00 AM EST Anti-Coag Telephone Visit [facility] Centralized [place] [phone] Shasta Delaney, [facility] Antiphospholipid antibody syndrome; Aortic valve [...] Progress Notes * Shasta Delaney RP - 04/17/2021 3:00 AM EST Images from the original note were not included. Anticoagulation Therapy Note Anticoagulation Summary As of 04/17/2021 INR goal: 2.5-3.5 TTR: 11.6 % (1.2 mo) INR used for dosin.5 (04/17/2021) Warfarin maintenance plan: 7.5 mg (5 mg x 1.5) every Tue, Yaritza, Sat; 5 mg (5 mg x 1) all other days Weekly warfarin total: 42.5 mg Plan last modified: Shasta Delaney [facility] (04/09/2021) Next INR check: 04/24/2021 Priority: 1 Week Target end date: Indefinite Indications Antiphospholipid antibody----- use antiXa level to dose heparin. 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] Pulmonary embolism unspecified chronicity unspecified pulmonary embolism type unspecified whether acute cor pulmonale present [I26.99] Anticoagulation Episode Summary INR check location: Outside Lab Preferred lab: EXTERNAL LAB Send INR reminders to: [facility] CENTRALIZED ANTICOAGULATION CLINIC Comments: [facility] -PCP ( NO THURSDAY TESTING 24 hr TURN AROUND ON LABS) [phone] (M) SO Exp 02/21/2022 Anticoagulation Care Providers Provider Role Specialty Phone number Gerardo Richter MD Responsible Cardiology [phone] Patient Assessment Service Type: INR Test Result [...] Therapy Instructions April 2021 Details Sun Mon Tue Wed Yaritza Fri Sat 1 2 3 4 5 6 7 8 9 10 11 12 5 mg See details 13 7.5 mg 14 5 mg 15 7.5 mg 16 5 mg 17 5 mg 18 7.5 mg 19 5 mg 20 21 22 23 24 25 26 27 28 29 30 31 Date Details 04/17 This INR check Date of next INR: 04/24/2021 How to take your warfarin dose To take: 5 mg Take 1 of the 5 mg tablets. To take: 7.5 mg Take 1.5 of the 5 mg tablets. Description 04/17/21: INR in range. Continue on current [...] check herINR on Thursday. Added pt to [facility] schedule for Thursday04/08/21 03/26/21: INR on home monitor is low today. FAMILY DENTIST result is still pending. Will dose her [...] INR check on Thursday. She will call [facility] if they do not show up and if she does not get her home monitor on Thursday. 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
--- OUTSIDE RECORDS SUMMARY | 2023-11-04 15:13 | XMS_ITS | Encounter Summary ---
[place] [address] Care Team Providers Care Manager Strategic Development Name Role Phone SandraMckenna rodriguez SUELLEN Primary Care Provider [phone] Encounter Details Date Type Department Care Team (Late st Contact Info) Description 03/06/2021 External Results [facility] [place] [address] Estelle Clarke Social History Tobacco Use Types [...] Anti-Coag Telephone Visit [facility] [place] [phone] documented as of this encounter Procedures Procedure Name Priority Date/Time Associated Diagnosis Comments EXTERNAL LAB HEMATOLOGY/COAG RESULTS PANEL Routine 03/05/2021 documented in this encounter Results * (ABNORMAL) Hematology / Coag External Results (03/05/2021) INR 5.80(EXTER NAL/ABN) EXTERNAL LAB Comment:[place] [facility] 03/05/2021 Historical Provider HEMATOLOGY ORDERA BLES EXTERNAL LAB documented in this encounter Visit Diagnoses Not on filedocumented in this encounter Care Teams Manager Strategic Development Relationship Specialty Start Date End Date Mckenna Genao, NARCOTICS AND VICE DETECTIVE [address] [facility] [place] [address] PCP - General Family Medicine 05/07/17 08/08/21 documented as of this encounter
--- OUTSIDE RECORDS SUMMARY | 2023-11-04 15:13 | XMS_ITS | Encounter Summary ---
[place] [address] Care Team Providers Care Manager Supply Chain Name Role Phone SandraMckenna rodriguez SUELLEN Primary Care Provider [phone] Encounter Details Date Type Department Care Team (Late st Contact Info) Description 02/26/2021 External Results [facility] [place] [address] Estelle Clarke Social History Tobacco Use Types [...] Anti-Coag Telephone Visit [facility] [place] [address] documented as of this encounter Procedures Procedure Name Priority Date/Time Associated Diagnosis Comments EXTERNAL LAB HEMATOLOGY/COAG RESULTS PANEL Routine 02/25/2021 documented in this encounter Results * (ABNORMAL) Hematology / Coag External Results (02/25/2021) INR 6.30(ExtHH ) EXTERNAL LAB Comment:[place] [facility] 02/25/2021 Historical Provider HEMATOLOGY ORDERA BLES EXTERNAL LAB documented in this encounter Visit Diagnoses Not on filedocumented in this encounter Care Teams Manager Supply Chain Relationship Specialty Start Date End Date Mckenna Genao, SUELLEN [address] [place] [address] PCP - General Family Medicine 05/07/17 08/08/21 documented as of this encounter
--- OUTSIDE RECORDS SUMMARY | 2023-11-04 15:13 | XMS_ITS | Encounter Summary ---
[place] [address] Care Team Providers Care Ball Points Inspector Name Role Phone Briana Timmons APRN Primary Care Provider Reason for Visit * Reason Comments Medication Refill Encounter Details Date Type Department Care Team (Late st Contact Info) Description 04/25/2021 Refill Internal Medicine at [facility] [address] [place] [phone] Kuldeep Conner MD [facility] DR CARDIOTHORACIC [place] [address] Aortic valve prosthesis present; Chronic septic pulmonary [...] Anti-Coag Telephone Visit [facility] [place] [address] documented as of this encounter Visit Diagnoses Diagnosis Aortic valve prosthesis present Heart valve replaced by other means 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
--- OUTSIDE RECORDS SUMMARY | 2023-11-04 15:13 | XMS_ITS | Encounter Summary ---
[place] [address] Care Team Providers Care Dean Of Women Name Role Phone SandraMckenna rodriguez SUELLEN Primary Care Provider [phone] Encounter Details Date Type Department Care Team (Late st Contact Info) Description 03/19/2021 External Results [facility] [place] [address] Estelle Clarke Social History Tobacco Use Types [...] [facility] [place] [address] documented as of this encounter Procedures Procedure Name Priority Date/Time Associated Diagnosis Comments EXTERNAL LAB HEMATOLOGY/COAG RESULTS PANEL Routine 03/19/2021 documented in this encounter Results * (ABNORMAL) Hematology / Coag External Results (03/19/2021) POC INR 4.9(COACH CLEANER AL/ABN) 0.9 - 1.1 EXTERNAL LAB Comment:[facility] (POC) 03/19/2021 Historical Provider HEMATOLOGY ORDERA BLES EXTERNAL LAB documented in this encounter Visit Diagnoses Not on filedocumented in this encounter Care Teams Dean Of Women Relationship Specialty Start Date End Date Mckenna Genao, SUPPLY CHAIN PROGRAM MANAGER [address] [place] [address] PCP - General Family Medicine 05/07/17 08/08/21 documented as of this encounter
--- OUTSIDE RECORDS SUMMARY | 2023-11-04 15:13 | XMS_ITS | Encounter Summary ---
[place] [address] Care Team Providers Care Rate Supervisor Name Role Phone BirgitMckenna SUELLEN Primary Care Provider [phone] Encounter Details Date Type Department Care Team (Latest Contact Info) Description 05/16/2021 3:00 AM EST Anti-Coag Telephone Visit [facility] [place] [phone] Shasta Delaney, [facility] Antiphospholipid antibody syndrome; Aortic valve [...] Progress Notes * Shasta Delaney [facility] - 05/16/2021 3:00 AM EST Images from the original note were not included. Anticoagulation Therapy Note Anticoagulation Summary As of 05/16/2021 INR goal: 2.5-3.5 TTR: 34.8 % (2.2 mo) INR used for dosin.8 (05/16/2021) Warfarin maintenance plan: 5 mg (5 mg x 1) every Thu, Thu, Thu; 7.5 mg (5 mg x 1.5) all other days Weekly warfarin total: 45 mg Plan last modified: Shasta Delaney [facility] (05/16/2021) Next INR check: 05/22/2021 Priority: 1 Week Target end date: Indefinite Indications Antiphospholipid antibody----- use antiXa level to dose heparin. 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] Pulmonary embolism unspecified chronicity unspecified pulmonary embolism type unspecified whether acute cor pulmonale present [I26.99] Anticoagulation Episode Summary INR check location: Home Draw Preferred lab: [facility] Send INR reminders to: [facility] CENTRALIZED ANTICOAGULATION CLINIC Comments: Home Monitor [facility] -PCP ( NO THURSDAY TESTING 24 hr TURN AROUND ON LABS) [phone] (M) SO Exp 02/21/2022 Anticoagulation Care Providers Provider Role Specialty Phone number Gerardo Richter MD Responsible Cardiology [phone] Patient Assessment Service Type: INR Test Result INR Result: Out of Range Patient Findings Positives: Signs/symptoms of bleeding (black/tarry stools x 1 day), Missed doses (missed last evenings dose), Change in medications (carafate BID) Warfarin Therapy Instructions May 2021 Details Sun Thuu Thu Sat 1 2 3 4 5 6 7 8 9 10 7.5 mg See details 11 5 mg 12 7.5 mg 13 7.5 mg 14 5 mg 15 7.5 mg 16 5 mg 17 18 19 20 21 22 23 24 25 26 27 28 Date Details 05/16 This INR check Date of next INR: 05/22/2021 How to take your warfarin dose To take: 5 mg Take 1 of the 5 mg tablets. To take: 7.5 mg Take 1.5 of the 5 mg tablets. Description 05/16/21: INR below range. Increase dose 6% [...] check herINR on Thursday. Added pt to [facility] schedule for Thursday04/08/21 documented in this encounter Plan of Treatment Upcoming Encounters Date Type Department Care Team (Late st Contact Info) Description 11/11/2023 3:00 AM EDT Anti-Coag Telephone Visit [facility] [place] [address] documented as of this encounter Visit Diagnoses Diagnosis Antiphospholipid antibody syndrome Primary hypercoagulable state Aortic valve prosthesis present Heart valve replaced by other means Pulmonary embolism, unspecified chronicity, unspecified pulmonary embolism type, unspecified whether acute cor pulmonale present documented in this encounter Care Teams Rate Supervisor Relationship Specialty Start Date End Date Mckenna Genao, SEMIAUTOMATIC STITCHER OPERATOR [address] [place] [address] PCP - General Family Medicine 05/07/17 08/08/21 documented as of this encounter
--- OUTSIDE RECORDS SUMMARY | 2023-11-04 15:13 | XMS_ITS | Encounter Summary ---
[place] [address] Care Team Providers Care Bus Aide Name Role Phone Mckenna Genao REGIONAL TRANSPORTATION MANAGER Primary Care Provider [phone] Encounter Details Date Type Department Care Team (Late Contact Info) Description 05/28/2021 External Results [facility] Information Services [address] [place] [phone] Provider, His Benigno MD None Social History [...] Department Care Team ([facility] Contact Info) Description 11/11/2023 3:00 AM EDT Anti-Coag Telephone Visit [facility] [place] [address] documented as of this encounter Procedures Procedure Name Priority Date/Time Associated Diagnosis Comments EXTERNAL INR RESULTS PANEL Routine 05/28/2021 12:42 PM EST documented in this encounter Results * (ABNORMAL) External INR Results Panel (05/28/2021 12:42 PM EST) INR 1.20(A) EXTERNAL LAB Blood 05/28/2021 12:4 2 PM EST Historical Provider POINT OF CARE GERSON T ORDERABLES EXTERNAL LAB documented in this encounter Visit Diagnoses Not on filedocumented in this encounter Care Teams Bus Aide Relationship Specialty Start Date End Date Mckenna Genao, SUELLEN [address] [place] [address] PCP - General Family Medicine 05/07/17 08/08/21 documented as of this encounter
--- OUTSIDE RECORDS SUMMARY | 2023-11-04 15:13 | XMS_ITS | Encounter Summary ---
Author Organization Formerly [facility] [place] [address] Care Team Providers Care Costume Designer Name Role Phone Birgit Mckenna KEN Primary Care Provider [phone] Reason for Visit * Reason Comments Shortness of Breath Pulmonary Embolism Follow-up Encounter Details Date Type Department Care Team (Latest Contact Info) Description 05/08/2021 1:20 PM EST TH Visit (TeleHealth) Cardiology at [address] [address] Gerardo Richter MD [facility] [place] [address] Pulmonary embolism, unspecified chronicity, unspecified pulmonary embolism type, unspecified whether acute cor pulmonale present; Anti-phospholipid antibody syndrome; FATIMA (dyspnea on exertion); [...] Progress Notes * Gerardo Richter MD - 05/08/2021 1:20 PM EST CARDIOLOGY/VASCULAR MEDICINE TELE VISIT NOTE Cecilia Dumont 05/07/21 The patient consented to this being a virtual visit. HPI: Cecilia Dumont is a 51 y.o. year old female with a history of SLE with triple positive APLA, CVA, dilated CMY with recovered EF, AVR who presents for follow-up. She was admitted to [facility]ology in March 2020 with several weeks of pleuritic chest pain and FATIMA. CTA at outside hospital initially concerning for subsegmental PE w/o RV strain; however, consequent review with radiology at [facility] w/o evidence of PE or other lung pathology. Her TTE was unremarkable. Due to her symptoms, she underwent stress echo, which showed possible ischemia in RCA territory. Due to small territory of WMA,she was discharged with outpatient follow-up.??Consequent coronary CTA w/o obstructive CAD. PFTs normal. I last saw her on 10/03/2020. Due to ongoing FATIMA, I ordered CPET, but this was not completed due to transportation issues. Since her last visit, she has had no change in her symptoms. She still very short of breath. After climbing 2 flights of stairs to her apartment, she feels completely drained due to trouble breathing. She has no chest pain. She denies PND, orthopnea, lower extreme edema, palpitations, presyncope or syncope. Her weight has been stable. Her INR is 2.8 today. Blood pressure is well controlled. Tolerating warfarin without issues. Brief ROS: Activity level: Independent with ADLs [...] with patient. Objective Data: VS at home: SBP 120s Weight Today: 196 lbs Labs: Lab Results Component Value Date WBC 7.1 03/21/2020 HGB 14.0 03/21/2020 HCT 41.2 03/21/2020 MCV 93.8 03/21/2020 PLATELET 223 03/21/2020 No results for input(s): NA, K, CL, CO2, BUN, CREATININE, GLUCOSE in the last 168 hours. Lab Results Component Value Date INR 2.2 (EXTERNAL/ABN) 05/01/2021 INR 1.50 (EXTERNAL/ABN) 04/09/2021 Lab Results Component Value Date CHLPL 236 [...] apical WMA and probable inferior ischemia. ?? DVT duplex 03/19/2020: Interpretation: RIGHT: ??No [...] free of disease.? Assessment: #1 Dyspnea on exertion #2 Triple positive APLA #3 History of [...] normal CTA coronaries who presents for follow-up. She continues to be quite limited by her shortness of breath with relatively minor exertion despite normal PFTs and CT coronaries. As previously discussed, I think that CPET can be quite helpful to evaluate the etiology, especially if this is deconditioning. She is willing and able tocalm for CPET. Plan 1. CPET. 2. Continue metoprolol succinate 50 mg daily, aspirin, and warfarin. 3. Visit with me in clinic or via telehealth after CPET. I spent a total of 15 minutes associated with this encounter including chart review, the patient encounter, and documentation, of which more than 50% was with direct patient contact. Gerardo Richter MD, MPH, RPVI, FACC, FS Cardiovascular Independent ProducerUnderground Mining Section [place] [address] documented in this encounter Plan of Treatment Upcoming Encounters Date Type Department Care Team (Late st Contact Info) Description 11/11/2023 3:00 AM EDT Anti-Coag Telephone Visit [facility] [place] [address] documented as of this encounter Results * Cardiopulmonary Exercise Test [...] 8.9 ml/kg/min; 55% of peak VO2 VE/VCO2 [place]: 26 Peak RER: 1.2 (>1.1 diagnostic) Pulmonary Spirometry: - FEV1: 2.37 L; 87% predicted - FVC: 2.71 L; 78% predicted - FEV1/FVC: 109% predicted Peak Ventilation 51.4 L/min Peak Respiratory Rate: 41 bpm Breathing [place]: 43.1% Oxygen Pulse: 13ml/beat, 122% predicted Oxygen [...] oxygen saturation during exercise. Karel Landrum MD, FACC Section of Cardiovascular Medicine [facility] Underground Mining Section Foremandry wall sprayer [facility] of [facility] at [facility] Procedure Note Karel Landrum MD - [...] 8.9 ml/kg/min; 55% of peak VO2 VE/VCO2 [place]: 26 Peak RER: 1.2 (>1.1 diagnostic) Pulmonary Spirometry: - FEV1: 2.37 L; 87% predicted - FVC: 2.71 L; 78% predicted - FEV1/FVC: 109% predicted Peak Ventilation 51.4 L/min Peak Respiratory Rate: 41 bpm Breathing [place]: 43.1% Oxygen Pulse: 13ml/beat, 122% predicted Oxygen [...] oxygen saturation during exercise. Karel Landrum MD, FACC Section of Cardiovascular Medicine [facility] Underground Mining Section Foremandry wall sprayer [facility] at [facility] Gerardo Richter MD CARDIAC SERVICES ORD ERABLES documented in this encounter Visit Diagnoses Diagnosis Pulmonary embolism, unspecified chronicity, unspecified pulmonary embolism type, unspecified whether acute cor pulmonale present Anti-phospholipid antibody syndrome Primary hypercoagulable state FATIMA (dyspnea on exertion) Other dyspnea and respiratory abnormality S/P AVR Heart valve replaced by other means Pulmonary embolism, unspecified chronicity, unspecified pulmonary embolism type, unspecified whether acute cor pulmonale present Anti-phospholipid antibody syndrome Primary hypercoagulable state FATIMA (dyspnea on exertion) Other dyspnea and respiratory abnormality documented in this encounter Care Teams Costume Designer Relationship Specialty Start Date End Date Mckenna Genao, SLITTER AND REWINDER MACHINE OPERATOR [address] [place] [address] PCP - General Family Medicine 05/07/17 08/08/21 documented as of this encounter
--- OUTSIDE RECORDS SUMMARY | 2023-11-04 15:13 | XMS_ITS | Encounter Summary ---
Author Organization [place] [id number] Care Team Providers Care Coverstitch Elastic Attacher Name Role Phone Mckenna Genao APRN Primary Care Provider [phone] Reason for Referral * Consultation (Routine) - Closed Specialty Diagnoses / Procedures Referred By Contkesha t Referred To Contact Primary Care Diagnoses Antiphospholipid antibody syndrome Aortic valve prosthesis present Pulmonary embolism, unspecified chronicity, unspecified pulmonary embolism type, unspecified whether acute cor pulmonale present Gerardo Richter MD [facility] [place] [address] [facility] [place] [address] Referral ID Status Reason Start Date Expiration Date V isits Requested Visits Authorized [id number] Closed Assume Subset of Care 02/19/2021 02/19/2022 1 1 Encounter Details Date Type Department Care Team (Latest Contact Info) Description 02/19/2021 Orders Only [facility] [place] [address] Sofia Warren [facility] Antiphospholipid antibody syndrome; Aortic valve prosthesis present; Pulmonary embolism, unspecified chronicity, unspecified pulmonary embolism type, unspecified whether acute cor pulmonale present; Cerebral infarction, unspecified mechanism; Drug-induced systemic lupus erythematosus, unspecified organ involvement status Social History Tobacco [...] this encounter Progress Notes * Sofia Warren RPH - 02/19/2021 5:04 PM EST See telephone notes from 02/19 - pt has chosen to re-establish with Cardiology due to preferencefor our care. If Mortgage Protection Specialist agrees with re- establishing care as the warfarin prescriber, please review and sign the pended anticoagulation referral. PCP has declined managing her warfarin, and pt declines services from [facility]. Future warfarin refillswill be routed to the Mortgage Protection Specialist, along with any compliance issues. documented in this encounter Plan of Treatment Upcoming Encounters Date Type Department Care Team (Late st Contact Info) Description 11/11/2023 3:00 AM EDT Anti-Coag Telephone Visit [facility] [place] [phone] Scheduled Referrals Name Type Priority Associated Diagnoses Order Schedule Referral for Anticoagulation Monitoring Outpatient Referral Routine Antiphospholipid antibody syndrome Aortic valve prosthesis present Pulmonary embolism, unspecified chronicity, unspecified pulmonary embolism type, unspecified whether acute cor pulmonale present Ordered: 02/19/2021 documented as of this encounter Visit Diagnoses Diagnosis Antiphospholipid antibody syndrome Primary hypercoagulable state Aortic valve prosthesis present Heart valve replaced by other means Pulmonary embolism, unspecified chronicity, unspecified pulmonary embolism type, unspecified whether acute cor pulmonale present Cerebral infarction, unspecified mechanism Drug-induced systemic lupus erythematosus, unspecified organ involvement status documented in this encounter Care Teams Coverstitch Elastic Attacher Relationship Specialty Start Date End Date Mckenna Genao, SILVERWARE CLEANER [address] [place] [address] PCP - General Family Medicine 05/07/17 08/08/21 documented as of this encounter
--- OUTSIDE RECORDS SUMMARY | 2023-11-04 15:13 | XMS_ITS | Encounter Summary ---
[place] [address] Care Team Providers Care Malt House Loader Name Role Phone Mckenna Genao WATER VALVE MECHANIC Primary Care Provider [phone] Encounter Details Date Type Department Care Team (Late Contact Info) Description 05/20/2021 External Results [facility] Information Services [address] [place] [phone] Provider, His Benigno MD None Social History [...] Upcoming Encounters Date Type Department Care Team ([facility] Contact Info) Description 11/11/2023 3:00 AM EDT Anti-Coag Telephone Visit [facility] [place] [address] documented as of this encounter Procedures Procedure Name Priority Date/Time Associated Diagnosis Comments EXTERNAL INR RESULTS PANEL Routine 05/20/2021 1:09 PM EST documented in this encounter Results * (ABNORMAL) External INR Results Panel (05/20/2021 1:09 PM EST) INR 2.10(A) EXTERNAL LAB Blood 05/20/2021 1:09 PM EST Historical Provider POINT OF CARE GERSON T ORDERABLES EXTERNAL LAB documented in this encounter Visit Diagnoses Not on filedocumented in this encounter Care Teams Malt House Loader Relationship Specialty Start Date End Date Mckenna Genao, SUELLEN [address] [place] [address] PCP - General Family Medicine 05/07/17 08/08/21 documented as of this encounter
--- OUTSIDE RECORDS SUMMARY | 2023-11-04 15:14 | XMS_ITS | Encounter Summary ---
[place] [address] Care Team Providers Care Lurer Name Role Phone BirgitMckenna SUELLEN Primary Care Provider [phone] Encounter Details Date Type Department Care Team (Latest Contact Info) Description 12/05/2020 4:00 AM EDT Anti-Coag Telephone Visit [facility] [place] [phone] Natalee Brandt LPN Antiphospholipid antibody syndrome; Aortic valve prosthesis present; Cerebral infarction, unspecified mechanism; Pulmonary embolism, unspecified [...] Progress Notes * Natalee Brandt LPN - 12/05/2020 4:00 AM EDT Images from the original note were not included. Anticoagulation Therapy Note Anticoagulation Summary As of 12/05/2020 INR goal: 2.5-3.5 TTR: 32.1 % (6 mo) INR used for dosin.30 (12/04/2020) Warfarin maintenance plan: 5 mg (5 mg x 1) every Mon; 7.5 mg (5 mg x 1.5) every Thu; 10 mg (5 mg x 2) all other days Weekly warfarin total: 62.5 mg Plan last modified: Natalee Brandt LPN (12/03/2020) Next INR check: 12/11/2020 Target end date: Indefinite Indications Antiphospholipid antibody----- use antiXa level to dose heparin. 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] Cerebral infarction---at age 21 [I63.9] Pulmonary embolism [I26.99] Systemic lupus erythematosus [M32.9] Anticoagulation Episode Summary INR check location: Outside Lab Preferred lab: EXTERNAL LAB Send INR reminders to: [facility] CENTRALIZED ANTICOAGULATION CLINIC Comments: [facility] -PCP ( NO THURSDAY TESTING 24 hr TURN AROUND ON LABS) [phone] (M) Anticoagulation Care Providers Provider Role Specialty Phone number Hunter Navarro MD Referring Cardiology [phone] Gerardo Richter MD Responsible Cardiology [phone] Patient Assessment Service Type: INR Test Result [...] Hospital admission, Bruising,Other complaints Warfarin Therapy Instructions December 2020 Details Sun Mon Tue Wed Yaritza Fri Sat 1 12.5 mg See details 2 10 mg 3 10 mg 4 10 mg 5 10 mg 6 7.5 mg 7 10 mg 8 9 10 11 12 13 14 15 16 17 18 19 20 21 22 23 24 25 26 27 28 29 30 Date Details 12/05 This INR check Date of next INR: 12/11/2020 How to take your warfarin dose To take: 7.5 mg Take 1.5 of the 5 mg tablets. To take: 10 mg Take 2 of the 5 mg tablets. To take: 12.5 mg Take 2.5 of the 5 mg tablets. Description 12/05 INR sub therapeutic yesterday, per response from Dr. Richter No need to bridge at this point. Thanks! -Benoit Spoke with Cecilia , Will dose to next Thursday at 70 mg total weekly dose and retest at that time. Will need to decrease dose then. 12/03 INR elevated on 11/29 , cardiology lining ironer dosed patient . was to hold dose to Thursday, how every Cecilia reports she only held her dose Thursday and Thursday and took 5 mg Thursday, Will have her take 7.5 mg ight and will retest INR tomorrow. Will be going to [place] on returning on Lab order mailed to patient to take with her she will let us know which lab she will use when there. 11/23/20: INR back in range. Elevated INR was attributed to infection, antibiotic, pain from kidney stones and ibuprofen all have which have resolved. I asked Cecilia to resume current maintenance dose and test to see if an additional day of 7.5mg will be needed. Cecilia will be traveling for 2weeks in december and can test the before she leaves. 11/21/20: INR supra-therapeutic today. Cecilia reports that she completed her antibiotic regimen yesterday and was taking ibuprofen TID for pain due to kidney stones. INR last week was in range and had come down from three weeks prior. Cecilia will hold x 2 doses and repeat INR on Thursday. Denies sxs of bleeding. Counseled on OTC pain medication of acetaminophen vs ibuprofen due to risk of bleeding andinteraction. Cecilia did confirm that she has been taking warfarin as instructed. 11/12/20: INR in range. Continue on current dose of warfarin and retest INR again in 1 week due to newly prescribed cephalexin. 10/29 Lab INR 10/26 3.7 slightly elevated will resume 7.5mg es/10mg all others Recheck 2 weeks 11/08 documented in this encounter Plan of Treatment Upcoming Encounters Date Type Department Care Team (Late st Contact Info) Description 11/11/2023 3:00 AM EDT Anti-Coag Telephone Visit [facility] [place] [address] documented as of this encounter Procedures Procedure Name Priority Date/Time Associated Diagnosis Comments EXTERNAL LAB HEMATOLOGY/COAG RESULTS PANEL Routine 12/04/2020 documented in this encounter Results * Hematology / Coag External Results (12/04/2020) INR 1.30 EXTERNAL LAB Comment:[facility] 12/04/2020 Historical Provider HEMATOLOGY ORDERA BLES EXTERNAL LAB documented in this encounter Visit Diagnoses Diagnosis Antiphospholipid antibody syndrome Primary hypercoagulable state Aortic valve prosthesis present Heart valve replaced by other means Cerebral infarction, unspecified mechanism Pulmonary embolism, unspecified chronicity, unspecified pulmonary embolism type, unspecified whether acute cor pulmonale present documented in this encounter Care Teams Lurer Relationship Specialty Start Date End Date Mckenna Genao, PLATE SENSITIZER [address] [place] [address] PCP - General Family Medicine 05/07/17 08/08/21 documented as of this encounter
--- OUTSIDE RECORDS SUMMARY | 2023-11-04 15:14 | XMS_ITS | Encounter Summary ---
[place] [address] Care Team Providers Care Uniform Patrol Police Officer Name Role Phone Birgit Mckenna KEN Primary Care Provider [phone] Encounter Details Date Type Department Care Team (Late st Contact Info) Description 12/11/2020 [place] [phone] Toribio Ziegler MD [facility] [place] [address] Social History Tobacco Use Types Packs/Day Years [...] encounter Miscellaneous Notes * Telephone Encounter - Toribio Ziegler MD - 12/11/2020 7:39 PM EDT Received phone call reporting patient's INR of 4.16. Advised patient to hold her dose of warfarin tonight and to call the clinic tomorrow AM for dose adjustment. documented in this encounter Plan of Treatment Upcoming Encounters Date Type Department Care Team (Late st Contact Info) Description 11/11/2023 3:00 AM EDT Anti-Coag Telephone Visit [facility] [place] [address] documented as of this encounter Visit Diagnoses Not on filedocumented in this encounter Care Teams Uniform Patrol Police Officer Relationship Specialty Start Date End Date Mckenna Genao, SUELLEN [address] [place] [address] PCP - General Family Medicine 05/07/17 08/08/21 documented as of this encounter
--- OUTSIDE RECORDS SUMMARY | 2023-11-04 15:14 | XMS_ITS | Encounter Summary ---
[place] [address] Care Team Providers Care Sign Maintenance Name Role Phone KareenMckenna marlow LAB COURIER Primary Care Provider [phone] Encounter Details Date Type Department Care Team (Late st Contact Info) Description 08/01/2020 External Results Internal Medicine at [place] [address] [place] [phone] Estelle Clarke Social History Tobacco Use Types [...] Telephone Visit [facility] Centralized [place] [address] documented as of this encounter Procedures Procedure Name Priority Date/Time Associated Diagnosis Comments EXTERNAL LAB HEMATOLOGY/COAG RESULTS PANEL Routine 07/31/2020 documented in this encounter Results * (ABNORMAL) Hematology / Coag External Results (07/31/2020) INR 2.20(MERCHANT BANKER AL/ABN) EXTERNAL LAB 07/31/2020 Historical Provider HEMATOLOGY ORDERA BLES EXTERNAL LAB documented in this encounter Visit Diagnoses Not on filedocumented in this encounter Care Teams Sign Maintenance Relationship Specialty Start Date End Date Mckenna Genao, SUELLEN [address] [place] [address] PCP - General Family Medicine 05/07/17 08/08/21 documented as of this encounter
--- OUTSIDE RECORDS SUMMARY | 2023-11-04 15:14 | XMS_ITS | Encounter Summary ---
[place] [address] Care Team Providers Care Sales Assistant Name Role Phone Mckenna Genao APRN Primary Care Provider [phone] Reason for Visit * Reason Onset Date Comments Anticoagulation 02/19/2021 Encounter Details Date Type Department Care Team (Late st Contact Info) Description 02/19/2021 Telephone [facility] [place] [address] Estelle Clarke Anticoagulation Social History Tobacco Use Types Packs/Day Years [...] encounter Miscellaneous Notes * Telephone Encounter - Sofia Warren, [facility] - 02/19/2021 4:47 PM EST Patient historically had open heart surgery at and was subsequently followed by Cardiology until care could be transferred closer to home earlier this month. [facility] cardiology was managing her, but her favored local provider left. Pt reports she started seeing a new [facility] feed house supervisor and does not like her new demeanor. PCP has made her appointment to re-establish with Cardiology (05/2021) because she chose over [facility] for her care. Per pt: PCP mentioned yesterday that she needs to re-establish with [facility] because there have been too many hands in the pot. PCP told the patient that you're too critical, and I can't do it. Referred to her INRs being all over the board and used the same words as the cardiologst at [facility] and said thatdayna has medical problems and need to be managed. Phone calls have flown between PCPs and feed house supervisor offices today due to the confusion listed above. Patient's preference for re-establishing care at was not clear prior to this phone call. PCP's office did provide dosing for warfarin this evening. Pt reports she will get her blood testedtomorrow, 02/20; added to the schedule. [facility] clinic will pend order for feed house supervisor for re-establishing care. Notes for [facility] clinic: Cecilia reports that she is a hard stick at the lab, but that she may be able to use a home monitor in the future. Will explore at a later time. * Telephone Encounter - Sofia Warren RPH - 02/19/2021 4:15 PM EST Called PCP's office, spoke to Lindsey. Explained the background: - Pt is transitioning feed house supervisor from to [facility] - [facility] provide [facility] dosing if the feed house supervisor is no longer the warfarin prescriber - Previous conversations noted that the feed house supervisor and [facility] pharmacist had agreed to transfer patient to PCP - PCP's office called [facility] on 02/19 noting that they refuse to manage her At this point, the outgoing Cardiologst, new [facility] feed house supervisor, and PCP need to decidewho will be the warfarin prescriber for the short-term during this period of transition. Discussed that PCP will accept responsibility of having this conversation with providers who could be warfarin prescribers. [facility] at [facility] has been closed. If Sales Trainee decides to continue managing arlethairn, new referral will be required. * Telephone Encounter - Estelle Clarke - 02/19/2021 3:45 PM EST TC from PCP office (Nancy) that PCP does not want to mange Cecilia due to her INR's being all over the place. Patient just became a patient of Dr. Richter who is a Cards at (appt 05/08/21). Patient had an INR done yesterday at [facility] Reg lab (2.9). Cecilia has left a message for dosing. I entered it. I am not sure if we need a new referral (?) documented in this encounter Plan of Treatment Upcoming Encounters Date Type Department Care Team (Late st Contact Info) Description 11/11/2023 3:00 AM EDT Anti-Coag Telephone Visit [facility] [place] [address] documented as of this encounter Visit Diagnoses Not on filedocumented in this encounter Care Teams Sales Assistant Relationship Specialty Start Date End Date Mckenna Genao APRN [address] [place] [address] PCP - General Family Medicine 05/07/17 08/08/21 documented as of this encounter
--- OUTSIDE RECORDS SUMMARY | 2023-11-04 15:14 | XMS_ITS | Encounter Summary ---
[place] [address] Care Team Providers Care Roll Sheeting Cutter Name Role Phone BirgitMckenna SUELLEN Primary Care Provider [phone] Encounter Details Date Type Department Care Team (Latest Contact Info) Description 11/23/2020 4:00 AM EDT Anti-Coag Telephone Visit [facility] Centralized [place] [phone] Shasta Delaney, [facility] Antiphospholipid antibody syndrome; Aortic valve prosthesis present; [...] * Shasta Delaney [facility] - 11/23/2020 4:00 AM EDT Images from the original note were not included. Anticoagulation Therapy Note Anticoagulation Summary As of 11/23/2020 INR goal: 2.5-3.5 TTR: 31.3 % (6 mo) INR used for dosin.50 (11/23/2020) Warfarin maintenance plan: 7.5 mg (5 mg x 1.5) every Mon; 10 mg (5 mg x 2) all other days Weekly warfarin total: 67.5 mg Plan last modified: Shasta Delaney [facility] (11/23/2020) Next INR check: 11/29/2020 Priority: 1 Week Target end date: Indefinite Indications Antiphospholipid antibody----- use antiXa level to dose heparin. 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] Cerebral infarction---at age 21 [I63.9] Pulmonary embolism [I26.99] Systemic lupus erythematosus [M32.9] Anticoagulation Episode Summary INR check location: Outside Lab Preferred lab: EXTERNAL LAB Send INR reminders to: [facility] C[facility]AL[facility] Comments: [facility] -PCP Anticoagulation Care Providers Provider Role Specialty Phone number Hunter Navarro MD Referring Cardiology [phone] Gerardo Richter MD Responsible Cardiology [phone] Patient Assessment Service Type: INR Test Result INR Result: In Range Clinical Outcomes Negatives: Major bleeding event, Thromboembolic event, Anticoagulation-related hospital admission, Anticoagulation-related ED visit Patient Findings Positives: Upcoming Travel, Change in health (recent kidney infection and kidney stones), Missed doses (held x 2 doses), Change in medications (recent ibuprofen use, recent course of cephalexin ) Negatives: Planning or Currently , Recent Fall, Signs/symptoms of thrombosis, Signs/symptoms of bleeding, Laboratory test error suspected, Change in alcohol use, Change in activity, Upcoming invasive procedure, Emergency department visit, Upcoming dental procedure, Extra doses, Change in t/appetite, Hospital admission, Bruising, Other complaints Warfarin Therapy Instructions November 2020 Details Sun Thuu Fri Sat 1 2 3 4 5 6 7 8 9 10 11 12 13 14 15 16 17 18 19 20 10 mg See details 21 10 mg 22 10 mg 23 7.5 mg 24 10 mg 25 10 mg 26 10 mg 27 28 29 30 31 Date Details 11/23 This INR check Date of next INR: 11/29/2020 How to take your warfarin dose To take: 7.5 mg Take 1.5 of the 5 mg tablets. To take: 10 mg Take 2 of the 5 mg tablets. Description 11/23/20: INR back in range. Elevated INR [...] 10/26 3.7 slightly elevated will resume 7.5mg tues/10mg all others Recheck 2 weeks 11/0810/25/20: Returned call to patient and left a message. Requested INR be tested tomorrow (lab was backed up today). Requested patient call [facility] tomorrow if she hasn't heard from us by 4:30pm 10/23/20: INR from yesterday has come up quickly and is just below range. Given that she took an increased dose last evening, I suspect INR would be in range today. Continue on current dose which is a12.5% dose increase over her previously established maintenance plan, stop enoxaparin and test INR . Since INR is not always resulted on the same day, I would advise against Thursday tests for her. 10/22/20: INR not resulted but patient did test. She will continue on 10mg of warfarin, continue enoxaparin and we will follow up tomorrow morning when INR has resulted. documented in this encounter Plan of Treatment Upcoming Encounters Date Type Department Care Team (Late st Contact Info) Description 11/11/2023 3:00 AM EDT Anti-Coag Telephone Visit [facility] Centralized [place] [address] documented as of this encounter Visit Diagnoses Diagnosis Antiphospholipid antibody syndrome Primary hypercoagulable state Aortic valve prosthesis present Heart valve replaced by other means Cerebral infarction, unspecified mechanism Pulmonary embolism, unspecified chronicity, unspecified pulmonary embolism type, unspecified whether acute cor pulmonale present documented in this encounter Care Teams Roll Sheeting Cutter Relationship Specialty Start Date End Date Mckenna Genao, POLYSOMNOGRAPHIC TECHNICIAN [address] [place] [address] PCP - General Family Medicine 05/07/17 08/08/21 documented as of this encounter
--- OUTSIDE RECORDS SUMMARY | 2023-11-04 15:14 | XMS_ITS | Encounter Summary ---
[place] [address] Care Team Providers Care Chemotherapist Name Role Phone Birgit Mckenna KEN Primary Care Provider [phone] Encounter Details Date Type Department Care Team (Latest Contact Info) Description 11/23/2020 Orders Only [facility] [place] [address] Estelle Clarke Antiphospholipid antibody----- use antiXa level to dose heparin. Social History Tobacco Use Types Packs/Day Years [...] Telephone Visit [facility] [place] [address] documented as of this encounter Visit Diagnoses Diagnosis Antiphospholipid antibody----- use antiXa level to dose heparin. Primary hypercoagulable state documented in this encounter Care Teams Chemotherapist Relationship Specialty Start Date End Date Mckenna Genao, MANAGEMENT RECRUITER [address] [place] [address] PCP - General Family Medicine 05/07/17 08/08/21 documented as of this encounter
--- OUTSIDE RECORDS SUMMARY | 2023-11-04 15:14 | XMS_ITS | Encounter Summary ---
Author Organization [facility] Address [facility] [place] [address] Care Team Providers Care Composition Board Press Operator Name Role Phone SandraMckenna rodriguez SUELLEN Primary Care Provider [phone] Encounter Details Date Type Department Care Team (Late st Contact Info) Description 11/29/2020 [place] [phone] Jesse Jimenez MD [facility] [place] [address] Social History Tobacco Use Types Packs/Day Years [...] Telephone Encounter - Jesse Jimenez MD - 11/29/2020 9:21 PM EDTSummary: Telephone Call Called by [facility], the INR check today was 4.8. She has already taken her coumadin 10 mg tonight. She will call the anticoagulation clinic tomorrow morning or early afternoon for further guidance. She has no active bleeding or heavy bruising. Jesse Jimenez MD 9:24 PM 11/29/2020 documented in this encounter Plan of Treatment Upcoming Encounters Date Type Department Care Team (Late st Contact Info) Description 11/11/2023 3:00 AM EDT Anti-Coag Telephone Visit [facility] [place] [address] documented as of this encounter Visit Diagnoses Not on filedocumented in this encounter Care Teams Composition Board Press Operator Relationship Specialty Start Date End Date Mckenna Genao, SUELLEN [address] [place] [address] PCP - General Family Medicine 05/07/17 08/08/21 documented as of this encounter
--- OUTSIDE RECORDS SUMMARY | 2023-11-04 15:14 | XMS_ITS | Encounter Summary ---
[place] [address] Care Team Providers Care Jacquard Loom Fixer Name Role Phone Birgit Mckenna KEN Primary Care Provider [phone] Encounter Details Date Type Department Care Team (Latest Contact Info) Description 10/03/2020 3:40 PM EDT TH Visit (TeleHealth) Cardiology at [address] [phone] Gerardo Richter MD [facility] [place] [address] Anti-phospholipid antibody syndrome; FATIMA (dyspnea on exertion); [...] Progress Notes * Gerardo Richter MD - 10/03/2020 3:40 PM EDT CARDIOLOGY/VASCULAR MEDICINE TELE VISIT NOTE Cecilia Dumont 10/03/20 The patient consented to this being a virtual visit. HPI: Cecilia Dumont is a 50 y.o. year old female with a history of SLE with triple positive APLA, CVA, dilated CMY with recovered EF, AVR who presents for follow-up. She was admitted to [facility] cardiology in March 2020 with several weeks of pleuritic chest pain and FATIMA. CTA at outside hospital initially concerning for subsegmental PE w/o RV strain; however, consequent review with radiology at [facility] w/o evidence of PE or other lung pathology. Her TTE was unremarkable. Due to her symptoms, she underwent stress echo, which showed possible ischemia in RCA territory. Due to small territory of WMA,she was discharged with outpatient follow-up. I last saw her on 07/02/2020. At that time, she had reported significant ongoing shortness of breath. CTA coronary without obstructive CAD and in fact, no plaque. PFTs normal (although she did have mild desaturation with activity). She has continued to be short of breath with ADLs which limits her significantly. Unfortunately, she has also gained a significant amount of weight in the past year. She has no angina, does get atypical chest pain episodes. She denies PND, orthopnea, lower extremity edema, palpitations, pre-syncope or syncope. BP well controlled. Brief ROS: Activity level: Independent with ADLs No new orthopnea, PND, LE edema. No lightheadedness, dizziness, syncope/pre- syncope. No new CP. Medications: Current Outpatient Medications Medication Sig Dispense Refill ??? warfarin (Coumadin) 5 mg Tablet Variable dosing. Take up to 2 tabs by mouth nightly as directed. 180 tablet 1 ??? warfarin (Coumadin) 5 mg Tablet Take 1 tablet by mouth daily. 10 tablet 0 ??? warfarin (Coumadin) 7.5 mg Tablet TAKE 1 TABLET BY MOUTH ONCE FOR 1 DOSE ??? atorvastatin (Lipitor) 40 mg Tablet Take [...] with patient. Objective Data: VS at home: 120s/70s Labs: Lab Results Component Value Date WBC 7.1 03/21/2020 HGB 14.0 03/21/2020 HCT 41.2 03/21/2020 MCV 93.8 03/21/2020 PLATELET 223 03/21/2020 No results for input(s): NA, K, CL, CO2, BUN, CREATININE, GLUCOSE in the last 168 hours. Lab Results Component Value Date INR 1.90 (EXTERNAL/ABN) 09/20/2020 Lab Results Component Value Date CHLPL 236 [...] positive APLA #3 History of AVR Mrs. Dumont ??a very pleasant 50 woman with history of SLE and triple positive APLA with consequent stroke, status post mechanical AVR, admission in March 2020 for pleuritic chest pain shortness of breath, initially concerning for pulmonary embolism, which have been ruled out, mildly abnormal stress test in inferior wall motion and normality, although normal CTA coronaries who presents for follow-up. She continues to be quite short of breath despite normal PFTs and CTA coronaries. I do wonder about deconditioning and weight gain as a significant component. I think CPET is the next best step to further evaluate. Additionally, she's interested in talking with robotic machine operator and I will set her up with Mauro Molina. Certainly, weight loss would be important. Plan 1. CPET.Will call to discuss results. 2. Referral to Mauro Molina. 3. Continue metoprolol succinate 50 mg daily, aspirin and warfarin. 4. Telehealth visit in 3 months. I spent a total of 30 minutes associated with this encounter including chart review, the patient encounter, and documentation, of which more than 50% was with direct patient contact. Gerardo Richter MD, MPH, RPVI, FACC, FS Cardiovascular Card GraderBricklayer Supervisor[place] [address] documented in this encounter Plan of Treatment Upcoming Encounters Date Type Department Care Team (Late st Contact Info) Description 11/11/2023 3:00 AM EDT Anti-Coag Telephone Visit [facility] [place] [address] documented as of this encounter Visit Diagnoses Diagnosis Anti-phospholipid antibody syndrome Primary hypercoagulable state FATIMA (dyspnea on exertion) Other dyspnea and respiratory abnormality S/P AVR Heart valve replaced by other means documented in this encounter Care Teams Jacquard Loom Fixer Relationship Specialty Start Date End Date Mckenna Genao, SUELLEN [address] [place] [address] PCP - General Family Medicine 05/07/17 08/08/21 documented as of this encounter
--- OUTSIDE RECORDS SUMMARY | 2023-11-04 15:14 | XMS_ITS | Encounter Summary ---
[place] [address] Care Team Providers Care Tray Casting Machine Operator Name Role Phone BirgitMckenna SUELLEN Primary Care Provider [phone] Encounter Details Date Type Department Care Team (Latest Contact Info) Description 10/17/2020 4:00 AM EDT Anti-Coag Telephone Visit [facility] Central[place] [phone] Shasta Delaney, [facility] Antiphospholipid antibody syndrome; Aortic valve prosthesis present; [...] this encounter Progress Notes * Shasta Delaney [facility] - 10/17/2020 4:00 AM EDT Images from the original note were not included. Anticoagulation Therapy Note Anticoagulation Summary As of 10/17/2020 INR goal: 2.5-3.5 TTR: 23.1 % (6 mo) INR used for dosin.20 (10/17/2020) Warfarin maintenance plan: 7.5 mg (5 mg x 1.5) every Tue; 10 mg (5 mg x 2) all other days Weekly warfarin total: 67.5 mg Plan last modified: Shasta Delaney [facility] (10/17/2020) Next INR check: 10/22/2020 Priority: 3 Weeks Target end date: Indefinite Indications Antiphospholipid antibody----- use antiXa level to dose heparin. 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] Cerebral infarction---at age 21 [I63.9] Pulmonary embolism [I26.99] Systemic lupus erythematosus [M32.9] Anticoagulation Episode Summary INR check location: Outside Lab Preferred lab: EXTERNAL LAB Send INR reminders to: [facility] Comments: [facility] -PCP Anticoagulation Care Providers Provider Role Specialty Phone number Hunter Navarro MD Referring Cardiology [phone] Gerardo Richter MD Responsible Cardiology [phone] Patient Assessment Service Type: INR Test Result INR Result: Out of Range Clinical Outcomes Negatives: Major bleeding event, Thromboembolic event, Anticoagulation-related hospital admission, Anticoagulation-related ED visit Patient Findings Positives: Change in diet/appetite (Reports having one salad with kale and spinach last week ) Negatives: Upcoming Travel, Planning or Currently , Recent Fall, Signs/symptoms of thrombosis, Signs/symptoms of bleeding, Laboratory test error suspected, Change in health, Change in alcoholuse, Change in activity, Upcoming invasive procedure, Emergency department visit, Upcoming dental procedure, Missed doses, Extra doses, Change in medications, Hospital admission, Bruising, Other complaints Warfarin Therapy Instructions October 2020 Details Sun Mon Tue Wed Yaritza Fri Sat 1 2 3 4 5 6 7 8 9 10 11 12 13 14 10 mg See details 15 10 mg 16 10 mg 17 10 mg 18 10 mg 19 10 mg 20 21 22 23 24 25 26 27 28 29 30 31 Date Details 10/17 This INR check Date of next INR: 10/22/2020 How to take your warfarin dose To take: 10 mg Take 2 of the 5 mg tablets. Description 10/17/20: INR subtherapeutic. Increase weekly dose 12.5% and test INR in 5 days. Cecilia confirmed current dose and denies missed doses, drastic changes in diet, health or medications. She denies sxs ofa blood clot such as SOB or swelling in LE. Note routed to Cardiology to alert them to low INR and asked if they would like her to start enoxaparin. Cecilia understands I will follow up tomorrow if a bridge is needed. 09/21- INR just below range. Pt denies any changes. Will give a 4% increase and recheck x 3 weeks. Pt agrees with plan. 08/23/20: INR remains below range but is trending up. Patient has received a 15% dose increase over the past two weeks. Increase weekly dose another 4.5% and test INR in 1 week. 08/17- INR low- pt now back on lisinopril and metoprolol- was off due to insurance issues. Saw cardiology and will require a stress test in September- date TBD. Will give a 10% increase and retest x 1 week. Pt agrees with plan. 08/08- INR trending down and pt denies changes. Will give 5% increase and retest x 1 week. Pt agrees with plan. 08/01- INR just below range. Pt denies any changes. Will maintain on 47.5mg/weekly and retest x 1 week. documented in this encounter Plan of Treatment Upcoming Encounters Date Type Department Care Team (Late st Contact Info) Description 11/11/2023 3:00 AM EDT Anti-Coag Telephone Visit [facility] [place] [address] documented as of this encounter Visit Diagnoses Diagnosis Antiphospholipid antibody syndrome Primary hypercoagulable state Aortic valve prosthesis present Heart valve replaced by other means Cerebral infarction, unspecified mechanism Pulmonary embolism, unspecified chronicity, unspecified pulmonary embolism type, unspecified whether acute cor pulmonale present documented in this encounter Care Teams Tray Casting Machine Operator Relationship Specialty Start Date End Date Mckenna Genao, SADDLE STITCH OPERATOR [address] [place] [address] PCP - General Family Medicine 05/07/17 08/08/21 documented as of this encounter
--- OUTSIDE RECORDS SUMMARY | 2023-11-04 15:14 | XMS_ITS | Encounter Summary ---
Author Organization [facility] [place] [address] Care Team Providers Care Hvac Instructor Name Role Phone TerranceMckenna hines SUELLEN Primary Care Provider [phone] Encounter Details Date Type Department Care Team (Latest Contact Info) Description 08/23/2020 4:00 AM EDT Anti-Coag Telephone Visit Internal Medicine at [facility] [address] [place] [address] Shasta Delaney [facility] Antiphospholipid antibody syndrome; Aortic valve prosthesis present; [...] [facility] - 08/23/2020 4:00 AM EDT Images from the original note were not included. Anticoagulation Therapy Telephone Note: Anticoagulation Summary As of 08/23/2020 INR goal: 2.5-3.5 TTR: 26.4 % (4.2 mo) INR used for dosin.10 (08/22/2020) Warfarin maintenance plan: 10 mg (5 mg x 2) every Mon, Fri; 7.5 mg (5 mg x 1.5) all other days Weekly warfarin total: 57.5 mg Plan last modified: Shasta Delaney [facility] (08/23/2020) Next INR check: 08/29/2020 Priority: 1 Week Target end date: Indefinite Indications Antiphospholipid antibody----- use antiXa level to dose heparin. 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] Cerebral infarction---at age 21 [I63.9] Pulmonary embolism [I26.99] Systemic lupus erythematosus [M32.9] Anticoagulation Episode Summary INR check location: Outside Lab Preferred lab: EXTERNAL LAB Send INR reminders to: [facility]TICO[facility]ATION CLINIC Comments: [facility] -PCP Anticoagulation Care Providers Provider Role Specialty Phone number Hunter Navarro MD Referring Cardiology [phone] Gerardo Richter MD Responsible Cardiology [phone] Patient Assessment Service Type: INR Test Result [...] Bruising, Other complaints Warfarin Therapy Instructions August 2020 Details Sun Thu Yaritza Fri Sat 1 2 3 4 5 6 7 8 9 10 11 12 13 14 15 16 17 18 19 20 7.5 mg See details 21 10 mg 22 7.5 mg 23 7.5 mg 24 10 mg 25 7.5 mg 26 7.5 mg 27 28 29 30 31 Date Details 08/23 This INR check Date of next INR: 08/29/2020 How to take your warfarin dose To take: 7.5 mg Take 1.5 of the 5 mg tablets. To take: 10 mg Take 2 of the 5 mg tablets. Description 08/23/20: INR remains below range but is [...] Anti-Coag Telephone Visit [facility] [place] [address] documented as of this encounter Visit Diagnoses Diagnosis Antiphospholipid antibody syndrome Primary hypercoagulable state Aortic valve prosthesis present Heart valve replaced by other means Cerebral infarction, unspecified mechanism Pulmonary embolism, unspecified chronicity, unspecified pulmonary embolism type, unspecified whether acute cor pulmonale present documented in this encounter Care Teams Hvac Instructor Relationship Specialty Start Date End Date Mckenna Genao APRN [address] [place] [address] PCP - General Family Medicine 05/07/17 08/08/21 documented as of this encounter
--- OUTSIDE RECORDS SUMMARY | 2023-11-04 15:14 | XMS_ITS | Encounter Summary ---
[place] [address] Care Team Providers Care Coupon Redemption Clerk Name Role Phone BirgitMckenna SUELLEN Primary Care Provider [phone] Encounter Details Date Type Department Care Team (Latest Contact Info) Description 10/26/2020 10:00 AM EDT TH Visit (TeleHealth) Cardiology at [address] [address] Mauro Molina, [facility] [place] [address] Nutritional counseling Social History Tobacco Use Types Packs/Day Years [...] as of this encounter Progress Notes * Mauro Molina, RD - 10/26/2020 10:00 AM EDT Images from the original note were not included. [facility] Cardiovascular Medicine Cardiology Nutrition Follow-up [place] [phone] , #2 eFax: 10/23/20 Identification Cecilia Dumont is a 50 y.o. patient of Mckenna Genao APRN referred to Cardiology Dietitian Boring Machine Operator Horizontal by Dr. Richter for nutrition management of obesity in the setting of CHF, APA syndrome w/lupus, HTN, migraine, osteoporosis and depression. Subjective 1. Cecilia Dumont's Overall Health Goal: Plan from last visit Suggested to patient consideration of Mediterranean Style Diet; Provided overview of Mediterranean-style Diet and discussed its [id number] implementation; E-mailed link to [facility] Cardiac and Pulmonary Rehab YouTube channel videos on diet modifications and methods E-mailed Med Diet daily checklist and recent nutrition newsletters on foods that affect blood clotting and eating at restaurants on a heart-healthy diet. Food and Lifestyle-related Successes: Doing good Eating breakfast: Bowl of Life cereal w/strawberries OR yogurt w/banana OR wheat toast w/peanut butter L: homemade raspberry jelly w/PB sandwich and handful of mixed nuts; SW Salad Bag w/ light raspberry vinaigrette, handful of cheese, 1/2 cuke, ryan tomatoes, avocado, carrots Sn: mixed nuts instead of mini candy bars S: Spaghetti white brand shallow bowl; omitted bread; leftover SW Salad Bag w/light Ranch dressing;Tuna melts; salmon on salad No Pepsi; AHA Sparkling water flavored 8-pk for $11.00. Notice more energy, not as tired; going to bed at 9:00 p.m. and up at 6:00 a.m. Excited about going to the fair tomorrow because not so tired. Using whiteboard with daily chores and doing them! Bought battery for scale Using [employer] health selma Using cronometer Barriers Encountered & Resolutions Identified: Comfort food is Pepsi. INR too high, ran out of plaquenil Objective Present Diet: 1200 to 1400 calorie Mediterranean Diet Pattern composed of 30% protein, 30% fat, 40% carbohydrate: # Servings/day Food Group Serving size Notes 5 to 7 Non-Starchy Veg 1 cup raw or 1/2 cup cooked Current: salad; broccoli, cauliflower, green beans 1 Starchy Veg 1/2 cup Current: not corn due to diverticular; green peas infreq; baked pot when eat out; sweet pot once/week. 3 Fruits small Current: 0 to 1 Grains 1 Tbl corn kernels or 1 sl bread or 1/2 cup cooked pasta Current: all types of rice; breakfast bar Nutrigrain daily; Life cereal 3 cups/wk Legumes 1/2 cup Current: 7 to 9 Protein ounces Current: 2 Nuts/Seeds 2 Tbl Current: 3 to 4 Fats/Oils 1 teaspoon or 1/8 avocado Current: avocado 1 Dairy/dairy alternatives 8 ounces Current: Interim Events: Anti-coag monitoring Physical Estimated body mass index is 34.44 kg/m?? as calculated from the following: Height as of 07/02/20: 160 cm (5' 3). Weight as of 07/02/20: 88.2 kg (194 lb 6.4 oz). Reported weight: unknown at this time Wt Readings from Last 3 Encounters: 07/02/20 88.2 kg (194 lb 6.4 oz) 06/07/20 84.8 kg (187 lb) 04/26/20 79.4 kg (175 lb) No Updated Labs Since Last Visit Nutrition Assessment/Impression/Diagnosis Cecilia has good support from family in her dietary changes; she is feeling more energetic as she eats more nutrient-dense foods. Fluid intakes remain low, causing difficulty with blood draws. Fluid requirements are [id number] oz/day. Plan/Intervention/Recommendations Encouraged 8 12-oz bottles of water daily for sufficient fluids daily; will put 8 in fridge and setreminder on her phone. Set nutrient targets in Cronometer; reviewed SynapDx selma for steps. Follow-up: 2 weeks Thank you for the privilege of working with this patient. Mauro Molina RDN, LD This was a TeleHealth Nutrition Visit. Patient verbalizes consent to the telehealth visit for nutrition counseling and coaching. cc: Mckenna Genao, SUELLEN [address] [facility] [id number] documented in this encounter Plan of Treatment Upcoming Encounters Date Type Department Care Team (Late st Contact Info) Description 11/11/2023 3:00 AM EDT Anti-Coag Telephone Visit [facility] [place] [address] documented as of this encounter Visit Diagnoses Diagnosis Nutritional counseling documented in this encounter Care Teams Coupon Redemption Clerk Relationship Specialty Start Date End Date Mckenna Genao, INSULATION WORKER [address] [place] [address] PCP - General Family Medicine 05/07/17 08/08/21 documented as of this encounter
--- OUTSIDE RECORDS SUMMARY | 2023-11-04 15:14 | XMS_ITS | Encounter Summary ---
[place] [address] Care Team Providers Care Technologies Division Chair Name Role Phone Mckenna Genao APRN Primary Care Provider [phone] Encounter Details Date Type Department Care Team (Latest Contact Info) Description 08/01/2020 4:00 AM EDT Anti-Coag Telephone Visit Internal Medicine at [facility] [address] [place] [address] Rob Vogel, RN Antiphospholipid antibody syndrome; Systemic lupus erythematosus, unspecified SLE type, unspecified organ involvement status; Aortic valve prosthesis present; Cerebral infarction, unspecified mechanism Social History Tobacco Use Types Packs/Day Years [...] as of this encounter Progress Notes * Rob Vogel RN - 08/01/2020 4:00 AM EDT Images from the original note were not included. Anticoagulation Therapy Telephone Note: Anticoagulation Summary As of 08/01/2020 INR goal: 2.5-3.5 TTR: 32.1 % (3.4 mo) INR used for dosin.20 (07/31/2020) Warfarin maintenance plan: 5 mg (5 mg x 1) every Thu, Thu; 7.5 mg (5 mg x 1.5) all other days Weekly warfarin total: 47.5 mg Plan last modified: Shasta Delaney [facility] (07/27/2020) Next INR check: 08/07/2020 Priority: 1 Week Target end date: Indefinite Indications Antiphospholipid antibody----- use antiXa level to dose heparin. 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] Cerebral infarction---at age 21 [I63.9] Pulmonary embolism [I26.99] Systemic lupus erythematosus [M32.9] Anticoagulation Episode Summary INR check location: Outside Lab Preferred lab: EXTERNAL LAB Send INR reminders to: [facility] C[facility]TICO[facility]ULATION CLINIC Comments: [facility] -PCP Anticoagulation Care Providers Provider Role Specialty Phone number Hunter Navarro MD Referring Cardiology [phone] Gerardo Richter MD Responsible Cardiology [phone] Patient Assessment Clinical Outcomes Negatives: Major bleeding event, Thromboembolic [...] Bruising, Other complaints Warfarin Therapy Instructions July 2020 Details Thu Sat 1 2 3 4 5 6 7 8 9 10 11 12 13 14 15 16 17 18 19 20 21 22 23 24 25 26 27 28 7.5 mg See details 29 5 mg 30 7.5 mg Date Details 08/01 This INR check How to take your warfarin dose To take: 5 mg Take 1 of the 5 mg tablets. To take: 7.5 mg Take 1.5 of the 5 mg tablets. Warfarin Therapy Instructions August 2020 Details Sun Mon Tue Wed Y[place]it[place] Fri Sat 1 7.5 mg 2 7.5 mg 3 7.5 mg 4 5 mg 5 6 7 8 9 10 11 12 13 14 15 16 17 18 19 20 21 22 23 24 25 26 27 28 29 30 31 Date Details No additional details Date of next INR: 08/07/2020 How to take your warfarin dose To take: 5 mg Take 1 of the 5 mg tablets. To take: 7.5 mg Take 1.5 of the 5 mg tablets. Description 08/01- INR just below range. Pt denies any changes. Will maintain on 47.5mg/weekly and retest x 1 week. 07/31- INR testing reminder made- left vm. Confirmed with [place] pt has not tested since last week. Will move to tomorrow on schedule 07/27/20: INR subtherapeutic. Increased weekly dose 12% over the next 4 days and requested INR in 4 days. documented in this encounter Plan of Treatment Upcoming Encounters Date Type Department Care Team (Late st Contact Info) Description 11/11/2023 3:00 AM EDT Anti-Coag Telephone Visit [facility] [place] [address] documented as of this encounter Visit Diagnoses Diagnosis Antiphospholipid antibody syndrome Primary hypercoagulable state Systemic lupus erythematosus, unspecified SLE type, unspecified organ involvement status Aortic valve prosthesis present Heart valve replaced by other means Cerebral infarction, unspecified mechanism documented in this encounter Care Teams Technologies Division Chair Relationship Specialty Start Date End Date Mckenna Genao, SUELLEN [address] [place] [address] PCP - General Family Medicine 05/07/17 08/08/21 documented as of this encounter
--- OUTSIDE RECORDS SUMMARY | 2023-11-04 15:14 | XMS_ITS | Encounter Summary ---
[place] [address] Care Team Providers Care Engineer System Administrator Name Role Phone SandraMckenna rodriguez SUELLEN Primary Care Provider [phone] Encounter Details Date Type Department Care Team (Late st Contact Info) Description 02/15/2021 External Results [facility] Central[place] [address] Estelle Clarke Social History Tobacco Use Types [...] Telephone Visit [facility] [place] [phone] documented as of this encounter Procedures Procedure Name Priority Date/Time Associated Diagnosis Comments EXTERNAL LAB HEMATOLOGY/COAG RESULTS PANEL Routine 02/14/2021 documented in this encounter Results * (ABNORMAL) Hematology / Coag External Results (02/14/2021) INR 9.00(ExtHH ) EXTERNAL LAB Comment:[facility] [place] [facility] 02/14/2021 Historical Provider HEMATOLOGY ORDERA BL[facility] EXTERNAL LAB documented in this encounter Visit Diagnoses Not on filedocumented in this encounter Care Teams Engineer System Administrator Relationship Specialty Start Date End Date Mckenna Genao, SUELLEN [address] [place] [address] PCP - General Family Medicine 05/07/17 08/08/21 documented as of this encounter
--- OUTSIDE RECORDS SUMMARY | 2023-11-04 15:14 | XMS_ITS | Encounter Summary ---
Author Organization [facility] [address] Care Team Providers Care Appraiser Personal Property Name Role Phone Birgit Mckenna KEN Primary Care Provider [phone] Encounter Details Date Type Department Care Team (Latest Contact Info) Description 09/21/2020 4:00 AM EDT Anti-Coag Telephone Visit Internal Medicine at [facility] [address] [place] [address] Rob Vogle, RN Antiphospholipid antibody syndrome; Aortic valve prosthesis present Social History Tobacco [...] of this encounter Progress Notes * Rob Vogel, RN - 09/21/2020 4:00 AM EDT Images from the original note were not included. Anticoagulation Therapy Note Anticoagulation Summary As of 09/21/2020 INR goal: 2.5-3.5 TTR: 27.0 % (5.1 mo) INR used for dosin.90 (09/20/2020) Warfarin maintenance plan: 10 mg (5 mg x 2) every Thu, Thu, Thu; 7.5 mg (5 mg x 1.5) all other days Weekly warfarin total: 60 mg Plan last modified: Rob Vogel RN (09/21/2020) Next INR check: 10/11/2020 Priority: 3 Weeks Target end date: Indefinite Indications Antiphospholipid antibody----- use antiXa level to dose heparin. 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] Cerebral infarction---at age 21 [I63.9] Pulmonary embolism [I26.99] Systemic lupus erythematosus [M32.9] Anticoagulation Episode Summary INR check location: Outside Lab Preferred lab: EXTERNAL LAB Send INR reminders to: [facility] CENTRALIZED ANTICOAGULATION CLINIC Comments: [facility] -PCP Anticoagulation Care Providers Provider Role Specialty Phone number Hunter Navarro MD Referring Cardiology [phone] Gerardo Richter MD Responsible Cardiology [phone] Patient Assessment Clinical Outcomes Negatives: Major bleeding [...] Bruising, Other complaints Warfarin Therapy Instructions September 2020 Details [place] Thu Sat 1 2 3 4 5 6 7 8 9 10 11 12 13 14 15 16 17 18 10 mg See details 19 7.5 mg 20 7.5 mg 21 10 mg 22 7.5 mg 23 10 mg 24 7.5 mg 25 10 mg 26 7.5 mg 27 7.5 mg 28 10 mg 29 7.5 mg 30 10 mg Date Details 09/21 This INR check How to take your warfarin dose To take: 7.5 mg Take 1.5 of the 5 mg tablets. To take: 10 mg Take 2 of the 5 mg tablets. Warfarin Therapy Instructions October 2020 Details Sun Mon Tue Wed [place] Fri Sat 1 7.5 mg 2 10 mg 3 7.5 mg 4 7.5 mg 5 10 mg 6 7.5 mg 7 10 mg 8 7.5 mg 9 10 11 12 13 14 15 16 17 18 19 20 21 22 23 24 25 26 27 28 29 30 31 Date Details No additional details Date of next INR: 10/11/2020 How to take your warfarin dose To take: 7.5 mg Take 1.5 of the 5 mg tablets. To take: 10 mg Take 2 of the 5 mg tablets. Description 09/21- INR just below range. 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
--- OUTSIDE RECORDS SUMMARY | 2023-11-04 15:14 | XMS_ITS | Encounter Summary ---
[place] [address] Care Team Providers Care Inventory Accountant Name Role Phone SandraMckenna rodriguez SUELLEN Primary Care Provider [phone] Encounter Details Date Type Department Care Team (Late st Contact Info) Description 02/19/2021 External Results [facility] [place] [address] Estelle Clarke Social History Tobacco Use Types [...] Visit [facility] [place] [address] documented as of this encounter Procedures Procedure Name Priority Date/Time Associated Diagnosis Comments EXTERNAL LAB HEMATOLOGY/COAG RESULTS PANEL Routine 02/18/2021 documented in this encounter Results * Hematology / Coag External Results (02/18/2021) INR 2.90 EXTERNAL LAB Comment:[facility] [place] [facility] 02/18/2021 Historical Provider HEMATOLOGY [facility] EXTERNAL LAB documented in this encounter Visit Diagnoses Not on filedocumented in this encounter Care Teams Inventory Accountant Relationship Specialty Start Date End Date Mckenna Genao, HOME VISITS NURSE [address] [place] [address] PCP - General Family Medicine 05/07/17 08/08/21 documented as of this encounter
--- OUTSIDE RECORDS SUMMARY | 2023-11-04 15:14 | XMS_ITS | Encounter Summary ---
[place] [address] Care Team Providers Care Professor Of Architecture Name Role Phone TerranceMckenna hines SUELLEN Primary Care Provider [phone] Reason for Visit * Reason Onset Date Comments Medication Refill 10/18/2020 Encounter Details Date Type Department Care Team (Late st Contact Info) Description 10/18/2020 Refill Cardiology at [address] [phone] Gerardo Richter MD [facility] [address] Medication Refill Social History Tobacco Use Types [...] Visit [facility] [place] [address] documented as of this encounter Visit Diagnoses Diagnosis Antiphospholipid antibody----- use antiXa level to dose heparin. 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
--- OUTSIDE RECORDS SUMMARY | 2023-11-04 15:14 | XMS_ITS | Encounter Summary ---
[place] [address] Care Team Providers Care Freezing Machine Operator Name Role Phone SandraMckenna rodriguez SUELLEN Primary Care Provider [phone] Encounter Details Date Type Department Care Team (Late st Contact Info) Description 10/17/2020 External Results [facility] [place] [address] Estelle Clarke Social History Tobacco Use Types [...] Telephone Visit [facility] [place] [address] documented as of this encounter Procedures Procedure Name Priority Date/Time Associated Diagnosis Comments EXTERNAL LAB HEMATOLOGY/COAG RESULTS PANEL Routine 10/17/2020 documented in this encounter Results * Hematology / Coag External Results (10/17/2020) INR 1.20 EXTERNAL LAB [facility] 10/17/2020 Historical Provider HEMATOLOGY [facility] EXTERNAL LAB documented in this encounter Visit Diagnoses Not on filedocumented in this encounter Care Teams Freezing Machine Operator Relationship Specialty Start Date End Date Mckenna Genao, LITIGATION MANAGER [address] [place] [address] PCP - General Family Medicine 05/07/17 08/08/21 documented as of this encounter
--- OUTSIDE RECORDS SUMMARY | 2023-11-04 15:14 | XMS_ITS | Encounter Summary ---
Author [place] [address] Care Team Providers Care Special Weapons Unit Officer Name Role Phone BirgitMckenna SUELLEN Primary Care Provider [phone] Encounter Details Date Type Department Care Team (Latest Contact Info) Description 01/14/2021 4:00 AM EDT Anti-Coag Telephone Visit [facility] [place] [phone] Kelli Hoffman, RN Antiphospholipid antibody syndrome; Aortic valve prosthesis present; Cerebral infarction, unspecified mechanism; Pulmonary embolism, unspecified chronicity, unspecified pulmonary embolism type, unspecified whether acute cor pulmonale present; Drug-induced systemic lupus erythematosus, unspecified organ involvement [...] Progress Notes * Kelli Hoffman RN - 01/14/2021 4:00 AM EDT Images from the original note were not included. Anticoagulation Therapy Telephone Note: Anticoagulation Summary As of 01/14/2021 INR goal: 2.5-3.5 TTR: 22.6 % (5.8 mo) INR used for dosin.30 (01/08/2021) Warfarin maintenance plan: 7.5 mg (5 mg x 1.5) every Thu, Thu; 10 mg (5 mg x 2) all other days Weekly warfarin total: 65 mg Plan last modified: Lindsey Meanrd [facility] (12/12/2020) Next INR check: 02/12/2021 Priority: 4 Weeks Target end date: Indefinite Indications Antiphospholipid antibody----- use antiXa level to dose heparin. 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] Cerebral infarction---at age 21 [I63.9] Pulmonary embolism [I26.99] Systemic lupus erythematosus [M32.9] Anticoagulation Episode Summary INR check location: Outside Lab Preferred lab: EXTERNAL LAB Send INR reminders to: [facility] CENTRALIZED ANTICOAGULATION CLINIC Comments: [facility] -PCP ( NO THURSDAY TESTING 24 hr TURN AROUND ON LABS) [phone] (M) Anticoagulation Care Providers Provider Role Specialty Phone number Hunter Navarro MD Referring Cardiology [phone] Gerardo Richter MD Responsible Cardiology [phone] Patient Assessment Service Type: INR Test Result [...] Bruising, Other complaints Warfarin Therapy Instructions January 2021 Details Sun Thu [place] Fri Sat 1 2 3 4 5 6 7 8 9 10 11 7.5 mg See details 12 10 mg 13 7.5 mg 14 10 mg 15 10 mg 16 10 mg 17 10 mg 18 7.5 mg 19 10 mg 20 7.5 mg 21 10 mg 22 10 mg 23 10 mg 24 10 mg 25 7.5 mg 26 10 mg 27 7.5 mg 28 10 mg 29 10 mg 30 10 mg 31 10 mg Date Details 01/14 This INR check How to take your warfarin dose To take: 7.5 mg Take 1.5 of the 5 mg tablets. To take: 10 mg Take 2 of the 5 mg tablets. Warfarin Therapy Instructions February 2021 Details Sun Thu Sat 1 7.5 mg 2 10 mg 3 7.5 mg 4 10 mg 5 10 mg 6 10 mg 7 10 mg 8 7.5 mg 9 10 mg 10 11 12 13 14 15 16 17 18 19 20 21 22 23 24 25 26 27 28 29 30 Date Details No additional details Date of next INR: 02/12/2021 How to take your warfarin dose To take: 7.5 mg Take 1.5 of the 5 mg tablets. To take: 10 mg Take 2 of the 5 mg tablets. Description 01/14/21 INR 3.30 Stay on current dose . Left a for Cecilia 12/12: INR elevated as of yesterday. She denies med/diet changes, missed doses, s/sx of bleeding, ands/sx of clots. Was instructed by chronic disease epidemiologist provider last night to hold her dose on Thursday. She received a total of 70 mg over the week last time we gave her dosing. Will readjust her weekly dosing to 67.5 mg and recheck INR in 1 week. Pt will be traveling to [place] leaving on 12/14 and returning 01/01. She plans to have INR checked while there. She would also like to have Lovenox on hand in case this needed for subtherapeutic INRs. Will forward message to Dr. Richter regarding pt's request. 12/05 INR sub therapeutic yesterday, per response from Dr. Richter No need to bridge at this point. Thanks! -Benoit Spoke with Cecilia , Will dose to next Thursday at 70 mg total weekly dose and retest at that time. Will need to decrease dose then. 12/03 INR elevated on 11/29 , cardiology chronic disease epidemiologist dosed patient . was to hold dose to Thursday, how every Cecilia reports she only held her dose Thursday and Thursday and took 5 mg Thursday, Will have her take 7.5 mg tonight and will retest INR tomorrow. Will be going to [place] on returning on Lab order mailed to [...] and can test the before she leaves. 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
--- OUTSIDE RECORDS SUMMARY | 2023-11-04 15:14 | XMS_ITS | Encounter Summary ---
[place] [address] Care Team Providers Care Software Packager Name Role Phone BirgitMckenna SUELLEN Primary Care Provider [phone] Encounter Details Date Type Department Care Team (Latest Contact Info) Description 10/22/2020 4:00 AM EDT Anti-Coag Telephone Visit [facility] [place] [phone] Shasta Delaney, [facility] Antiphospholipid antibody syndrome; Aortic valve [...] Progress Notes * Shasta Delaney [facility] - 10/22/2020 4:00 AM EDT Images from the original note were not included. Anticoagulation Therapy Note Anticoagulation Summary As of 10/22/2020 INR goal: 2.5-3.5 TTR: 23.7 % (5.8 mo) INR used for dosing: No new INR was available at the time of this encounter. Warfarin maintenance plan: 7.5 mg (5 mg x 1.5) every Tue; 10 mg (5 mg x 2) all other days Weekly warfarin total: 67.5 mg Plan last modified: Shasta Delaney [facility] (10/17/2020) Next INR check: 10/23/2020 Priority: 3 Weeks Target end date: Indefinite Indications Antiphospholipid antibody----- use antiXa level to dose heparin. 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] Cerebral infarction---at age 21 [I63.9] Pulmonary embolism [I26.99] Systemic lupus erythematosus [M32.9] Anticoagulation Episode Summary INR check location: Outside Lab Preferred lab: EXTERNAL LAB Send INR reminders to: [facility] Comments: [facility] -PCP Anticoagulation Care Providers Provider Role Specialty Phone number Hunter Navarro MD Referring Cardiology [phone] Gerardo Richter MD Responsible Cardiology [phone] Patient Assessment Service Type: Other Other Service Type: INR not resulted Warfarin Therapy Instructions October 2020 Details Sun Mon Tue Wed Yaritza Fri Sat 1 2 3 4 5 6 7 8 9 10 11 12 13 14 15 16 17 18 19 10 mg See details 20 7.5 mg 21 22 23 24 25 26 27 28 29 30 31 Date Details 10/22 This INR check Date of next INR: 10/23/2020 How to take your warfarin dose To take: 7.5 mg Take 1.5 of the 5 mg tablets. To take: 10 mg Take 2 of the 5 mg tablets. Description 10/22/20: INR not resulted but patient did test. She will continue on 10mg of warfarin, continue enoxaparin and we will follow up tomorrow morning when INR has resulted. 10/18/20: Cecilia will start enoxaparin 1.5mg/kg/day today. Current weight is 198lb ~ 90kg for a dose of 135mg QD. 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 10/17/20: INR subtherapeutic. Increase weekly dose 12.5% [...] Telephone Visit [facility] [place] [address] documented as of this encounter Visit Diagnoses Diagnosis Antiphospholipid antibody syndrome Primary hypercoagulable state Aortic valve prosthesis present Heart valve replaced by other means Cerebral infarction, unspecified mechanism Pulmonary embolism, unspecified chronicity, unspecified pulmonary embolism type, unspecified whether acute cor pulmonale present documented in this encounter Care Teams Software Packager Relationship Specialty Start Date End Date Mckenna Genao, GYROSCOPE REPAIRER [address] [place] [address] PCP - General Family Medicine 05/07/17 08/08/21 documented as of this encounter
--- OUTSIDE RECORDS SUMMARY | 2023-11-04 15:14 | XMS_ITS | Encounter Summary ---
[place] [address] Care Team Providers Care Online Merchant Name Role Phone Mckenna Genao PIPER INSTALLER Primary Care Provider [phone] Encounter Details Date Type Department Care Team (Late st Contact Info) Description 10/29/2020 External Results [facility] [place] [address] Sofia Warren, [facility] Social History Tobacco Use Types Packs/Day Years [...] [facility] Central[place] [phone] documented as of this encounter Procedures Procedure Name Priority Date/Time Associated Diagnosis Comments EXTERNAL LAB HEMATOLOGY/COAG RESULTS PANEL Routine 10/26/2020 documented in this encounter Results * (ABNORMAL) Hematology / Coag External Results (10/26/2020) INR 3.70 EXTERNAL LAB 10/26/2020 Historical Provider HEMATOLOGY ORDERA BLES EXTERNAL LAB documented in this encounter Visit Diagnoses Not on filedocumented in this encounter Care Teams Online Merchant Relationship Specialty Start Date End Date Mckenna Genao, PIPER INSTALLER [address] [address] PCP - General Family Medicine 05/07/17 08/08/21 documented as of this encounter
--- OUTSIDE RECORDS SUMMARY | 2023-11-04 15:14 | XMS_ITS | Encounter Summary ---
[place] [address] Care Team Providers Care Painter Interior Finish Name Role Phone Birgit Mckenna SUELLEN Primary Care Provider [phone] Encounter Details Date Type Department Care Team (Latest Contact Info) Description 11/21/2020 4:00 AM EDT Anti-Coag Telephone Visit [facility] [place] [phone] Shasta Delaney, [facility] Antiphospholipid antibody [...] Delaney [facility] - 11/21/2020 4:00 AM EDT Images from the original note were not included. Anticoagulation Therapy Note Anticoagulation Summary As of 11/21/2020 INR goal: 2.5-3.5 TTR: 31.0 % (6 mo) INR used for dosin.30 (11/21/2020) Warfarin maintenance plan: 7.5 mg (5 mg x 1.5) every Tue; 10 mg (5 mg x 2) all other days Weekly warfarin total: 67.5 mg Plan last modified: Shasta Delaney [facility] (10/17/2020) Next INR check: 11/23/2020 Priority: 1 Week Target end date: Indefinite Indications Antiphospholipid antibody----- use antiXa level to dose heparin. 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] Cerebral infarction---at age 21 [I63.9] Pulmonary embolism [I26.99] Systemic lupus erythematosus [M32.9] Anticoagulation Episode Summary INR check location: Outside Lab Preferred lab: EXTERNAL LAB Send INR reminders to: [facility] Comments: [facility] -PCP Anticoagulation Care Providers Provider Role Specialty Phone number Hunter Navarro MD Referring Cardiology [phone] Gerardo Richter MD Responsible Cardiology [phone] Patient Assessment Service Type: INR Test Result INR Result: Out of Range Patient Findings Positives: Upcoming Travel (Going to [place] in December ), Change in health (recent kidney infection, kidney stones and headache yesterday on 11/20), Change in medications (Finished cephalexin 11/20,was taking ibuprofen TID) Warfarin Therapy Instructions November 2020 Details Sun Thu Sat 1 2 3 4 5 6 7 8 9 10 11 12 13 14 15 16 17 18 Hold See details 19 Hold 20 10 mg 21 22 23 24 25 26 27 28 29 30 31 Date Details 11/21 This INR check Date of next INR: 11/23/2020 How to take your warfarin dose To take: 10 mg Take 2 of the 5 mg tablets. Hold Do not take your warfarin dose. See the Details table to the right for additional instructions. Description 11/21/20: INR supra-therapeutic today. Cecilia reports that [...] was backed up today). Requested patient call [facility] tomorrow if she hasn't heard from us [...] a dose of 135mg QD. 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 documented in this encounter Plan of Treatment Upcoming Encounters Date Type Department Care Team (Late st Contact Info) Description 11/11/2023 3:00 AM EDT Anti-Coag Telephone Visit [facility] [place] [address] documented as of this encounter Visit Diagnoses Diagnosis Antiphospholipid antibody syndrome Primary hypercoagulable state Aortic valve prosthesis present Heart valve replaced by other means Cerebral infarction, unspecified mechanism Pulmonary embolism, unspecified chronicity, unspecified pulmonary embolism type, unspecified whether acute cor pulmonale present documented in this encounter Care Teams Painter Interior Finish Relationship Specialty Start Date End Date Mckenna Genao, HOUSEKEEPING ASSOCIATE [address] [facility] [place] [address] PCP - General Family Medicine 05/07/17 08/08/21 documented as of this encounter
--- OUTSIDE RECORDS SUMMARY | 2023-11-04 15:14 | XMS_ITS | Encounter Summary ---
[place] [address] Care Team Providers Care Welder Assistant Name Role Phone BirgitMckenna SUELLEN Primary Care Provider [phone] Encounter Details Date Type Department Care Team (Latest Contact Info) Description 10/12/2020 4:20 PM EDT TH Visit (TeleHealth) Cardiology at [address] [address] Mauro Molina, [facility] [place] [address] Nutritional counseling Social History Tobacco Use Types [...] Progress Notes * Mauro Molina, RD - 10/12/2020 4:20 PM EDT Images from the original note were not included. [facility] Cardiovascular Medicine Cardiology Nutrition Assessment [facility] [address] [phone] Initial Nutrition Assessment 10/12/20 Identification and Chief Complaint Cecilia Dumont is a 50 y.o. patient of Mckenna Genao APRN referred to Cardiology Dietitian Certified Nurse Aide by Dr. Richter for nutrition management of obesity in the setting of CHF, APA syndrome w/lupus, HTN, migraine, osteoporosis and depression. 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 Has been on warfarin ever since. Lifestyle Physical Activity: housework, meal preparation; walking stopped and weight increased 65# (due to Covid stress, depression: comfort food is Pepsi. 6-pack 12-oz cans or more). Activity: Uses [employer]: baseline is 1 hour if watching TV show Stress: weaning off Pepsi due to headaches; drinking sugar-free flavored water; not snacking on junk foods Depression: lupus affects this Past Diet History: low sodium instruction in cardiac rehab program 24-hour food recall B: yogurt (switch up plant-based yogurt), fruit L: chicken leftovers, rice S: chicken, broccoli Sn: Nutrigrain bar GI Screen: not done today Cooks: patient. Cooks for self and spouse. 1200 to 1400 calorie Mediterranean Diet Pattern [...] avocado 1 Dairy/dairy alternatives 8 ounces Current: Cecilia Dumont's Overall Health Goal at this time is: tbd Objective Medications Current Outpatient Medications: ??? warfarin (Coumadin) 5 mg Tablet, Variable dosing. Take up to 2 tabs by mouth nightly as directed., Disp: 180 tablet, Rfl: 1 ??? warfarin (Coumadin) 5 mg Tablet, Take 1 tablet by mouth daily., Disp: 10 tablet, Rfl: 0 ??? warfarin (Coumadin) 7.5 mg Tablet, TAKE 1 TABLET BY MOUTH ONCE FOR 1 DOSE, Disp: , Rfl: ??? atorvastatin (Lipitor) 40 mg Tablet, Take 1 tablet by mouth every evening., Disp: 90 tablet, Rfl: 0 ??? metoprolol succinate XL (Toprol-XL) 50 mg Tablet Sustained Release 24 hr, Take 1 tablet by mouth daily., Disp: 90 tablet, Rfl: 0 ??? levothyroxine (Synthroid) 25 mcg Tablet, Take 1 tablet by mouth daily. Dosage Unknown, Disp: 90tablet, Rfl: 0 ??? FLUoxetine (PROzac) 40 mg Capsule, Take 40 mg by mouth daily., Disp: , Rfl: ??? hydrOXYchloroQUINE (Plaquenil) 200 mg Tablet, Take 1 tablet by mouth 2 times daily. Indications: systemic lupus erythematosus, an autoimmune disease, Disp: 60 tablet, Rfl: 0 ??? diclofenac (VOLTAREN) 1 % Gel, Apply 2 g topically 3 times daily as needed., Disp: 100 g, Rfl: 1 ??? pantoprazole (PROTONIX) 40 mg Tablet, Delayed Release (E.C.), Take 40 mg by mouth 2 times daily., Disp: , Rfl: ??? acetaminophen (TYLENOL) 500 mg Tablet, Take 2 tablets by mouth every 6 hours as needed for Pain., Disp: 30 tablet, Rfl: 1 ??? aspirin 81 mg Tablet, Chewable, Take 81 mg by mouth daily., Disp: 30 tablet, Rfl: 3 ??? multivitamin with minerals tablet, 1 Tablet(s), PO, Once daily, Disp: , Rfl: Most recent labs Lab Results Component Value Date RBC 4.39 03/21/2020 HCT 41.2 03/21/2020 HGB 14.0 03/21/2020 MCV 93.8 03/21/2020 MCHC 34.0 03/21/2020 RDWSD 43.5 03/21/2020 NA 139 03/21/2020 K 4.0 03/21/2020 CL 103 03/21/2020 CO2 27 03/21/2020 BUN 18 03/21/2020 CREATININE 0.80 07/02/2020 ESTGFR 87 07/02/2020 MAGNESIUM 0.86 03/21/2020 CALCIUM 8.7 03/21/2020 PHOS 3.7 05/18/2017 AST 18 10/19/2018 ALT 9 10/19/2018 ALKPHOS 114 (H) 10/19/2018 CHLPL 236 03/21/2020 HDL 49 03/21/2020 CHOLHDL 4.8 03/21/2020 TRIG 197 03/21/2020 LDLCHOL 148 03/21/2020 LDLDIRECT 145 05/18/2017 No results for input(s): HA1C in the last 7068 hours. Medical Nutrition Therapy Assessment Estimated body mass index is 34.44 kg/m?? as calculated from the following: Height as of 07/02/20: 160 cm (5' 3). Weight as of 07/02/20: 88.2 kg (194 lb 6.4 oz). IBW = 52 kg (115 #) +/- 10% Kcal need = 25 to 29 kcals/kg IBW = 1300 to 1500 kcals/day Protein need = 0.8 to 1.0 g/kg ABW = 70 to 88 g/day SFA < 6% = 9 g/day Fluid needs: 25 to 30 ml/kg ABW = 1.5 L/day BMI = 30.0 to 34.9 Class 1 (low-risk) obesity Patient reports weight at her mother's was 209#; after 2 weeks it is now 197# Nutrition related medication management Patient's nutritional status may be impacted by the following medications: MEDICATION POSSIBLE NUTRIENT DEPLETIONS x Betablockers, Statin CoQ10 Loop Diuretics Thiamin (vit B1); Pyridoxine (vit B6), Vit C, Ca, Mg, K, Zn DANIELLE Inhibitors Ca, Mg, K, Zn x Acid Reducers Cobalamin (vit B12); Mg Metolazone Mg, K, Zn, folates x Platelet Inhibitors Fe x Vitamin K Antagonists Vitamin K Calcium channel blockers K, Ca, vit D Glucophage CoQ10, B6, B12, folates Nutrition-related labs - none recent ??? Potential for Protein-calorie Malnutrition is low based on well-functioning gastro-intestinal system, usual eating pattern of 3 meals/day, food security, sufficient cooking knowledge and skills and adequate social support. ?? Patient's current dietary habits may be inadequate to achieve long-term health due to increased nutrient needs from polypharmacy, insufficient intakes of potassium, calcium, magnesium; insufficient intake of vitamin D while living north [place] [address] [place] [address], low omega-3 fatty acids and excessive saturated fatty acids resulting in elevated LDL, excess simple carbohydrate intake resulting in elevated triglycerides and caloric imbalance resulting in obesity. ?? Cecilia's eating habits are strongly influenced by depression and anxiety. She recently weaned herself off her comfort food (Pepsi) which accounted for at least 900 additional calories consumed daily. Cecilia believes this is the reason for her weight gain of 65# in the past year. This is entirely possible, given the caloric content of Pepsi at the quantity shewas consuming. Nutrition Diagnoses: Inadequate oral food or beverage intake Excessive fluid intake Inadequate fluid intake x Decreased nutrient need (sodium) Altered nutrition related lab values as identified above Increased energy intake Inadequate energy intake x Excessive energy intake Evident protein energy malnutrition Inadequate protein intake Excessive protein intake Inadequate bioactive substance intake Excessive bioactive substance intake x Inadequate vitamin and/or mineral intake as identified in nutrient analysis Excessive vitamin intake Altered GI function Underweight Involuntary weight loss Involuntary weight gain x Food and Nutrition-Related Knowledge Deficit Harmful beliefs/attitudes about food- or nutrition-related topics Not ready for diet / lifestyle change Self-monitoring deficit Limited adherence to nutrition related recommendations x Undesirable food choices Limited access to foods OTHER: Nutrition Plan ??? Mediterranean-style diet controlled in carbohydrate (30% protein, 30% fat, 40% carbohydrate) with the goals: o Meet CONSTRUCTION RECRUITER for vitamin D, calcium, magnesium, and potassium with sodium restriction to support optimal blood pressure control, vitamin D status; o Maintain muscle mass via sufficient protein-calorie intake and increased physical activity o Reduce and stabilize blood glucose o Control saturated fat intake at 6% or less of caloric intake to lower LDL; o Reduce added sugars to < 25 grams daily to reduce triglycerides; o Achieve caloric balance via increased activity and reduced intake to lower body weight. Nutrition Intervention 1. Suggested to patient consideration of Mediterranean Style Diet; 2. Provided overview of Mediterranean-style Diet and discussed its [id number] implementation; 3. E-mailed link to [facility] Cardiac and Pulmonary Rehab YouTube channel videos on diet modifications and methods 4. E-mailed Med Diet daily checklist and recent nutrition newsletters on foods that affect blood clotting and eating at restaurants on a heart-healthy diet. Patient appeared to have good comprehension per questions and comments and agreed to meet again in 2 weeks. Nutrition Recommendations ??? PCP, please check vitamin D level. ??? Encourage intentional physical activity as appropriate as feeling of well- being improves. Follow-up: 2 weeks Thank you for the privilege of working with Angie. Mauro Molina RDN, LD This is a TeleHealth Nutrition Visit. Patient verbalizes consent to the telehealth visit for nutrition counseling and coaching. cc: ?? Mckenna Genao APRN [address] [place] [address] documented in this encounter Plan of Treatment Upcoming Encounters Date Type Department Care Team (Late st Contact Info) Description 11/11/2023 3:00 AM EDT Anti-Coag Telephone Visit [facility] [place] [address] documented as of this encounter Visit Diagnoses Diagnosis Nutritional counseling documented in this encounter Care Teams Welder Assistant Relationship Specialty Start Date End Date Mckenna Genao APRN [address], [place] [address] PCP - General Family Medicine 05/07/17 08/08/21 documented as of this encounter
--- OUTSIDE RECORDS SUMMARY | 2023-11-04 15:14 | XMS_ITS | Encounter Summary ---
[place] [address] Care Team Providers Care Health Systems Analyst Name Role Phone BirgitMckenna SUELLEN Primary Care Provider [phone] Encounter Details Date Type Department Care Team (Latest Contact Info) Description 10/23/2020 4:00 AM EDT Anti-Coag Telephone Visit [facility] [place] [phone] Shasta Delaney, [facility] Antiphospholipid antibody syndrome; Aortic [...] encounter Progress Notes * Shasta Delaney [facility] - 10/23/2020 4:00 AM EDT Images from the original note were not included. Anticoagulation Therapy Note Anticoagulation Summary As of 10/23/2020 INR goal: 2.5-3.5 TTR: 23.1 % (6 mo) INR used for dosin.40 (10/23/2020) Warfarin maintenance plan: 7.5 mg (5 mg x 1.5) every Tue; 10 mg (5 mg x 2) all other days Weekly warfarin total: 67.5 mg Plan last modified: Shasta Delaney [facility] (10/17/2020) Next INR check: 10/25/2020 Priority: 3 Weeks Target end date: Indefinite Indications Antiphospholipid antibody----- use antiXa level to dose heparin. 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] Cerebral infarction---at age 21 [I63.9] Pulmonary embolism [I26.99] Systemic lupus erythematosus [M32.9] Anticoagulation Episode Summary INR check location: Outside Lab Preferred lab: EXTERNAL LAB Send INR reminders to: [facility] Comments: [facility] -PCP Anticoagulation Care Providers Provider Role Specialty Phone number Hunter Navarro MD Referring Cardiology [phone] Gerardo Richter MD Responsible Cardiology [phone] Patient Assessment Service Type: INR Test Result INR Result: Out of Range Clinical Outcomes Negatives: Major bleeding event, Thromboembolic event, Anticoagulation-related hospital admission, Anticoagulation-related ED visit Patient Findings Positives: Change in medications (stopped enoxaparin 10/23) Negatives: Upcoming Travel, Planning or Currently , [...] 21 10 mg 22 10 mg 23 24 25 26 27 28 29 30 31 Date Details 10/23 This INR check Date of next INR: 10/25/2020 How to take your warfarin dose To take: 7.5 mg Take 1.5 of the 5 mg tablets. To take: 10 mg Take 2 of the 5 mg tablets. Description 10/23/20: INR from yesterday has come up [...] a dose of 135mg QD. 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 and understands she [...] [facility] [place] [address] documented as of this encounter Visit Diagnoses Diagnosis Antiphospholipid antibody syndrome Primary hypercoagulable state Aortic valve prosthesis present Heart valve replaced by other means Cerebral infarction, unspecified mechanism Pulmonary embolism, unspecified chronicity, unspecified pulmonary embolism type, unspecified whether acute cor pulmonale present documented in this encounter Care Teams Health Systems Analyst Relationship Specialty Start Date End Date Mckenna Genao, FINAL EXPENSE AGENT [address] [place] [address] PCP - General Family Medicine 05/07/17 08/08/21 documented as of this encounter
--- OUTSIDE RECORDS SUMMARY | 2023-11-04 15:14 | XMS_ITS | Encounter Summary ---
[place] [address] Care Team Providers Care Supervisor Felling Bucking Name Role Phone Briana Timmons APRN Primary Care Provider Reason for Visit * Reason Comments Medication Refill Encounter Details Date Type Department Care Team (Late st Contact Info) Description 02/07/2021 Refill Internal Medicine at [facility] [address] [place] [phone] Gerardo Richter MD [facility] [place] [address] Aortic valve prosthesis present; Chronic septic pulmonary [...] Anti-Coag Telephone Visit [facility] [place] [address] documented as of this encounter Visit Diagnoses Diagnosis Aortic valve prosthesis present 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
--- OUTSIDE RECORDS SUMMARY | 2023-11-04 15:14 | XMS_ITS | Encounter Summary ---
[place] [address] Care Team Providers Care Water Resources Business Segment Leader Name Role Phone BirgitMckenna SUELLEN Primary Care Provider [phone] Encounter Details Date Type Department Care Team (Latest Contact Info) Description 10/25/2020 Anti-Coag Telephone Visit [facility] [place] [address] Shasta Delaney, [facility] Antiphospholipid [...] Shasta Delaney [facility] - 10/25/2020 4:04 PM EDT Images from the original note were not included. Anticoagulation Therapy Note Anticoagulation Summary As of 10/25/2020 INR goal: 2.5-3.5 TTR: 23.3 % (5.9 mo) INR used for dosing: No new INR was available at the time of this encounter. Warfarin maintenance plan: 7.5 mg (5 mg x 1.5) every Tue; 10 mg (5 mg x 2) all other days Weekly warfarin total: 67.5 mg Plan last modified: Shasta Delaney, [facility] (10/17/2020) Next INR check: 10/26/2020 Priority: 3 Weeks Target end date: Indefinite Indications Antiphospholipid antibody----- use antiXa level to dose heparin. 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] Cerebral infarction---at age 21 [I63.9] Pulmonary embolism [I26.99] Systemic lupus erythematosus [M32.9] Anticoagulation Episode Summary INR check location: Outside Lab Preferred lab: EXTERNAL LAB Send INR reminders to: [facility] Comments: [facility] -PCP Anticoagulation Care Providers Provider Role Specialty Phone number Hunter Navarro MD Referring Cardiology [phone] Gerardo Richter MD Responsible Cardiology [phone] Patient Assessment Service Type: Other Warfarin Therapy Instructions October 2020 Details Sun Mon Thu Sat 1 2 3 4 5 6 7 8 9 10 11 12 13 14 15 16 17 18 19 20 21 22 10 mg See details 23 10 mg 24 25 26 27 28 29 30 31 Date Details 10/25 This INR check Date of next INR: 10/26/2020 How to take your warfarin dose To take: 10 mg Take 2 of the 5 mg tablets. Description 10/25/20: Returned call to patient and left a message. Requested INR be tested tomorrow (lab was backed up today). Requested patient call [facility] tomorrow if she hasn't heard from us [...] a dose of 135mg QD. Cecilia will knot picker cloth her syringes today and understands she will [...] x 1 week. Pt agrees with plan. documented in this encounter Plan of Treatment Upcoming Encounters Date Type Department Care Team (Late st Contact Info) Description 11/11/2023 3:00 AM EDT Anti-Coag Telephone Visit [facility] [place] [address] documented as of this encounter Visit Diagnoses Diagnosis Antiphospholipid antibody syndrome Primary hypercoagulable state Aortic valve prosthesis present Heart valve replaced by other means Cerebral infarction, unspecified mechanism Pulmonary embolism, unspecified chronicity, unspecified pulmonary embolism type, unspecified whether acute cor pulmonale present documented in this encounter Care Teams Water Resources Business Segment Leader Relationship Specialty Start Date End Date Mckenna Genao, DRY ROOM ATTENDANT [address] [place] [address] PCP - General Family Medicine 05/07/17 08/08/21 documented as of this encounter
--- OUTSIDE RECORDS SUMMARY | 2023-11-04 15:14 | XMS_ITS | Encounter Summary ---
[place] [address] Care Team Providers Care Office Associate Name Role Phone BirgitMckenna SUELLEN Primary Care Provider [phone] Encounter Details Date Type Department Care Team (Latest Contact Info) Description 12/03/2020 4:00 AM EDT Anti-Coag Telephone Visit [facility] [place] [phone] Natalee Brandt LPN Antiphospholipid antibody syndrome; Aortic [...] Progress Notes * Natalee Brandt LPN - 12/03/2020 4:00 AM EDT Images from the original note were not included. Anticoagulation Therapy Note Anticoagulation Summary As of 12/03/2020 INR goal: 2.5-3.5 TTR: 32.4 % (5.8 mo) INR used for dosing: No new INR was available at the time of this encounter. Warfarin maintenance plan: 5 mg (5 mg x 1) every Mon; 7.5 mg (5 mg x 1.5) every Thu; 10 mg (5 mg x 2) all other days Weekly warfarin total: 62.5 mg Plan last modified: Natalee Brandt LPN (12/03/2020) Next INR check: 12/04/2020 Target end date: Indefinite Indications Antiphospholipid antibody----- use antiXa level to dose heparin. 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] Cerebral infarction---at age 21 [I63.9] Pulmonary embolism [I26.99] Systemic lupus erythematosus [M32.9] Anticoagulation Episode Summary INR check location: Outside Lab Preferred lab: EXTERNAL LAB Send INR reminders to: [facility] Comments: [facility] -PCP [phone] (M) Anticoagulation Care Providers Provider Role Specialty Phone number Hunter Navarro MD Referring Cardiology [phone] Gerardo Richter MD Responsible Cardiology [phone] Patient Assessment Service Type: INR Test Result [...] Hospital admission, Bruising,Other complaints Warfarin Therapy Instructions November 2020 Details Sun Thuu Fri Sat 1 2 3 4 5 6 7 8 9 10 11 12 13 14 15 16 17 18 19 20 21 22 23 24 25 26 27 28 29 30 7.5 mg See details 31 10 mg Date Details 12/03 This INR check Date of next INR: 12/04/2020 How to take your warfarin dose To take: 7.5 mg Take 1.5 of the 5 mg tablets. To take: 10 mg Take 2 of the 5 mg tablets. Description 12/03 INR elevated on 11/29 , cardiology director of acquisition marketing dosed patient . was to hold dose to Thursday, how every Cecilia reports she only held her dose Thursday and Thursday and took 5 mg Thursday, Will have her take 7.5 mg tonight and will retest INR tomorrow. Will be going to [place] on returning on Lab order mailed to [...] 7.5mg tues/10mg all others Recheck 2 weeks 11/08 documented in this encounter Plan of Treatment Upcoming Encounters Date Type Department Care Team (Late st Contact Info) Description 11/11/2023 3:00 AM EDT Anti-Coag Telephone Visit [facility] [place] [address] documented as of this encounter Procedures Procedure Name Priority Date/Time Associated Diagnosis Comments EXTERNAL LAB HEMATOLOGY/COAG RESULTS PANEL Routine 11/29/2020 documented in this encounter Results * Hematology / Coag External Results (11/29/2020) INR 4.80 EXTERNAL LAB 11/29/2020 Historical Provider HEMATOLOGY FADUMO [facility] EXTERNAL LAB documented in this encounter Visit Diagnoses Diagnosis Antiphospholipid antibody syndrome Primary hypercoagulable state Aortic valve prosthesis present Heart valve replaced by other means Cerebral infarction, unspecified mechanism Pulmonary embolism, unspecified chronicity, unspecified pulmonary embolism type, unspecified whether acute cor pulmonale present documented in this encounter Care Teams Office Associate Relationship Specialty Start Date End Date Mckenna Genao, SUELLEN [address] [place] [address] PCP - General Family Medicine 05/07/17 08/08/21 documented as of this encounter
--- OUTSIDE RECORDS SUMMARY | 2023-11-04 15:14 | XMS_ITS | Encounter Summary ---
[place] [address] Care Team Providers Care [employer] Team Member Name Role Phone KareenMckenna marlow COMPENSATION INTERN Primary Care Provider [phone] Encounter Details Date Type Department Care Team (Late st Contact Info) Description 09/21/2020 External Results Internal Medicine at [place] [address] [place] [phone] Estelle Clarke Social History Tobacco Use Types [...] Telephone Visit [facility] Centralized [place] [address] documented as of this encounter Procedures Procedure Name Priority Date/Time Associated Diagnosis Comments EXTERNAL LAB HEMATOLOGY/COAG RESULTS PANEL Routine 09/20/2020 documented in this encounter Results * (ABNORMAL) Hematology / Coag External Results (09/20/2020) INR 1.90(EXTER NAL/ABN) EXTERNAL LAB Comment:[facility] 09/20/2020 Historical Provider HEMATOLOGY FADUMO P[facility]RON[facility] EXTERNAL LAB documented in this encounter Visit Diagnoses Not on filedocumented in this encounter Care Teams [employer] Team Member Relationship Specialty Start Date End Date Mckenna Genao, COMPENSATION INTERN [address] [place] [address] PCP - General Family Medicine 05/07/17 08/08/21 documented as of this encounter
--- OUTSIDE RECORDS SUMMARY | 2023-11-04 15:14 | XMS_ITS | Encounter Summary ---
[place] [address] Care Team Providers Care Needle Punch Machine Operator Name Role Phone SandraMckenna rodriguez SUELLEN Primary Care Provider [phone] Encounter Details Date Type Department Care Team (Late st Contact Info) Description 11/21/2020 External Results [facility] [place] [address] Estelle Clarke Social History Tobacco Use Types [...] Visit [facility] [place] [address] documented as of this encounter Procedures Procedure Name Priority Date/Time Associated Diagnosis Comments EXTERNAL LAB HEMATOLOGY/COAG RESULTS PANEL Routine 11/21/2020 documented in this encounter Results * (ABNORMAL) Hematology / Coag External Results (11/21/2020) INR 6.30(EXTER NAL/ABN) EXTERNAL LAB Comment:[facility] 11/21/2020 Historical Provider HEMATOLOGY ORDERA [facility] EXTERNAL LAB documented in this encounter Visit Diagnoses Not on filedocumented in this encounter Care Teams Needle Punch Machine Operator Relationship Specialty Start Date End Date Mckenna Genao, TAPERING MACHINE OPERATOR [address] [place] [address] PCP - General Family Medicine 05/07/17 08/08/21 documented as of this encounter
--- OUTSIDE RECORDS SUMMARY | 2023-11-04 15:14 | XMS_ITS | Encounter Summary ---
[place] [address] Care Team Providers Care Accounts Payable Administrator Name Role Phone SandarMckenna rodriguez SUELLEN Primary Care Provider [phone] Encounter Details Date Type Department Care Team (Late st Contact Info) Description 11/12/2020 External Results [facility] Centralized [place] [address] Estelle Clarke Social History Tobacco Use Types [...] Telephone Visit [facility] Central[place] [phone] documented as of this encounter Procedures Procedure Name Priority Date/Time Associated Diagnosis Comments EXTERNAL LAB HEMATOLOGY/COAG RESULTS PANEL Routine 11/12/2020 documented in this encounter Results * Hematology / Coag External Results (11/12/2020) POC INR 2.8 0.9 - 1.1 EXTERNAL LAB Comment:[facility] 11/12/2020 Historical Provider HEMATOLOGY ORDERA [facility] EXTERNAL LAB documented in this encounter Visit Diagnoses Not on filedocumented in this encounter Care Teams Accounts Payable Administrator Relationship Specialty Start Date End Date Mckenna Genao, SECURITY OPERATIONS ENGINEER [address] [place] [address] PCP - General Family Medicine 05/07/17 08/08/21 documented as of this encounter
--- OUTSIDE RECORDS SUMMARY | 2023-11-04 15:14 | XMS_ITS | Encounter Summary ---
[place] [address] Care Team Providers Care Multi Site Leasing Consultant Name Role Phone Briana Timmons APRN Primary Care Provider [phone] Reason for Visit * Reason Comments Medication Refill Encounter Details Date Type Department Care Team (Late st Contact Info) Description 10/18/2020 Refill Internal [place] [address] Deniz Root Jr., MD [facility] GENER[facility] INTERNAL [place] [address] Social History Tobacco Use Types Packs/Day Years [...] 11/11/2023 3:00 AM EDT [place] [address] documented as of this encounter Visit Diagnoses Not on filedocumented in this encounter Care Teams Multi Site Leasing Consultant Relationship Specialty Start Date End Date Briana Timmons, DERMATOLOGIST MANAGING PARTNER [place] [address] PCP - General Family Medicine 08/09/21 documented as of this encounter
--- OUTSIDE RECORDS SUMMARY | 2023-11-04 15:14 | XMS_ITS | Encounter Summary ---
[place] [address] Care Team Providers Care Electrical Controls Assembler Name Role Phone SandraMckenna rodriguez SUELLEN Primary Care Provider [phone] Encounter Details Date Type Department Care Team (Late st Contact Info) Description 12/12/2020 External Results [facility] [place] [address] Estelle Clarke Social History Tobacco Use Types [...] Visit [facility] [place] [address] documented as of this encounter Procedures Procedure Name Priority Date/Time Associated Diagnosis Comments EXTERNAL LAB HEMATOLOGY/COAG RESULTS PANEL Routine 12/11/2020 documented in this encounter Results * (ABNORMAL) Hematology / Coag External Results (12/11/2020) INR 4.20(EXTER NAL/ABN) [facility]TERNAL LAB [facility] 12/11/2020 Historical Provider HEMATOLOGY ORDERA [facility] EXTERNAL LAB documented in this encounter Visit Diagnoses Not on filedocumented in this encounter Care Teams Electrical Controls Assembler Relationship Specialty Start Date End Date Mckenna Genao, CHEMICAL ETCH OPERATOR [address] [place] [address] PCP - General Family Medicine 05/07/17 08/08/21 documented as of this encounter
--- OUTSIDE RECORDS SUMMARY | 2023-11-04 15:14 | XMS_ITS | Encounter Summary ---
[place] [address] Care Team Providers Care Past Due Accounts Clerk Name Role Phone Mckenna Genao APRN Primary Care Provider [phone] Reason for Visit * Reason Onset Date Comments Anticoagulation 08/07/2020 Encounter Details Date Type Department Care Team (Late st Contact Info) Description 08/07/2020 Telephone Internal Medicine at [facility] [address] [place] [address] Estelle Willett Anticoagulation Social History Tobacco Use Types Packs/Day [...] encounter Miscellaneous Notes * Telephone Encounter - Estelle Willett - 08/07/2020 4:48 PM EDT OVERDUE INR CALL: Left a voicemail for Cecilia Dumont reminding her that she was due for an INR today.I requested that she go to [facility] in [facility] tomorrow or call me so I can update her chart. Patient will be moved to the 08/08 phone log. Postponed until: 08/08 Letter needed:NO ESTELLE WILLETT documented in this encounter Plan of Treatment Upcoming Encounters Date Type Department Care Team (Late st Contact Info) Description 11/11/2023 3:00 AM EDT [place] [address] documented as of this encounter Visit Diagnoses Not on filedocumented in this encounter Care Teams Past Due Accounts Clerk Relationship Specialty Start Date End Date Mckenna Genao APRN [address] [address] PCP - General Family Medicine 05/07/17 08/08/21 documented as of this encounter
--- OUTSIDE RECORDS SUMMARY | 2023-11-04 15:14 | XMS_ITS | Encounter Summary ---
[place] [address] Care Team Providers Care Basin Tender Name Role Phone SandraMckenna rodriguez SUELLEN Primary Care Provider [phone] Encounter Details Date Type Department Care Team (Latest Contact Info) Description 10/29/2020 4:00 AM EDT Anti-Coag Telephone Visit [facility] [place] [address] Alaina Chandra RN Antiphospholipid antibody syndrome; Aortic valve prosthesis [...] as of this encounter Progress Notes * Alaina Chandra RN - 10/29/2020 4:00 AM EDT Images from the original note were not included. Anticoagulation Therapy Note Anticoagulation Summary As of 10/29/2020 INR goal: 2.5-3.5 TTR: 24.8 % (5.9 mo) INR used for dosin.70 (10/26/2020) Warfarin maintenance plan: 7.5 mg (5 mg x 1.5) every Tue; 10 mg (5 mg x 2) all other days Weekly warfarin total: 67.5 mg Plan last modified: [facility] (10/17/2020) Next INR check: 11/12/2020 Priority: 2 Weeks Target end date: Indefinite Indications Antiphospholipid antibody----- use antiXa level to dose heparin. 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] Cerebral infarction---at age 21 [I63.9] Pulmonary embolism [I26.99] Systemic lupus erythematosus [M32.9] Anticoagulation Episode Summary INR check location: Outside Lab Preferred lab: EXTERNAL LAB Send INR reminders to: [facility] Comments: [facility] -PCP Anticoagulation Care Providers Provider Role Specialty Phone number Hunter Navarro MD Referring Cardiology [phone] Gerardo Richter MD Responsible Cardiology [phone] Patient Assessment Service Type: INR Test Result [...] complaints Warfarin Therapy Instructions October 2020 Details Thu Sat 1 2 3 4 5 6 7 8 9 10 11 12 13 14 15 16 17 18 19 20 21 22 23 24 25 26 10 mg See details 27 7.5 mg 28 10 mg 29 10 mg 30 10 mg 31 10 mg Date Details 10/29 This INR check How to take your warfarin dose To take: 7.5 mg Take 1.5 of the 5 mg tablets. To take: 10 mg Take 2 of the 5 mg tablets. Warfarin Therapy Instructions November 2020 Details Thu Sat 1 10 mg 2 10 mg 3 7.5 mg 4 10 mg 5 10 mg 6 10 mg 7 10 mg 8 10 mg 9 10 mg 10 11 12 13 14 15 16 17 18 19 20 21 22 23 24 25 26 27 28 29 30 31 Date Details No additional details Date of next INR: 11/12/2020 How to take your warfarin dose To take: 7.5 mg Take 1.5 of the 5 mg tablets. To take: 10 mg Take 2 of the 5 mg tablets. Description 10/29 Lab INR 10/26 3.7 slightly elevated will resume 7.5mg tues/10mg all others Recheck 2 weeks 11/0810/25/20: Returned call to patient and left a message. Requested INR be tested tomorrow (lab was backed up today). Requested patient call [facility] tomorrow if she hasn't heard from us [...] dose of 135mg QD. Cecilia will picker operator her syringes today and understands she [...] 4.5% and test INR in 1 week. documented in this encounter Plan of Treatment Upcoming Encounters Date Type Department Care Team (Late st Contact Info) Description 11/11/2023 3:00 AM EDT Anti-Coag Telephone Visit [facility] [place] [address] documented as of this encounter Visit Diagnoses Diagnosis Antiphospholipid antibody syndrome Primary hypercoagulable state Aortic valve prosthesis present Heart valve replaced by other means documented in this encounter Care Teams Basin Tender Relationship Specialty Start Date End Date Mckenna Genao APRN [address] [place] [address] PCP - General Family Medicine 05/07/17 08/08/21 documented as of this encounter
--- OUTSIDE RECORDS SUMMARY | 2023-11-04 15:14 | XMS_ITS | Encounter Summary ---
[place] [address] Care Team Providers Care Supervisor Briar Shop Name Role Phone BirgitMckenna SUELLEN Primary Care Provider [phone] Encounter Details Date Type Department Care Team (Latest Contact Info) Description 11/09/2020 11:00 AM EDT TH Visit (TeleHealth) Cardiology at [address] [address] Mauro Molina, [facility] [place] [address] Nutritional counseling Social History Tobacco Use Types [...] Progress Notes * Mauro Molina, RD - 11/09/2020 11:00 AM EDT Images from the original note were not included. [facility] Cardiovascular Medicine Cardiology Nutrition Follow-up [place] [phone] , #2 eFax: 11/07/20 Identification Cecilia Dumont is a 50 y.o. patient of Mckenna Genao APRN referred to Cardiology Dietitian Figure Clerk by Dr. 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 Subjective Cecilia Dumont's Overall Health Goal: tbd Plan from last visit Encouraged 8 12-oz bottles of water daily for sufficient fluids daily; will put 8 in fridge and setreminder on her phone. Set nutrient targets in Cronometer; reviewed [employer] selma for step-counting. Food and Lifestyle-related Successes: n/a Barriers Encountered & Resolutions Identified: Didn't go to fair after all; went to visit son. Feeling so poorly, passing blood in urine. Returned to drinking Pepsi for comfort. Objective Present Diet: 1200 to 1400 calorie [...] Dairy/dairy alternatives 8 ounces Current: Interim Events: Elevated INR, Prothrombin Physical Estimated body mass index is 34.44 kg/m?? as calculated from the following: Height as of 07/02/20: 160 cm (5' 3). Weight as of 07/02/20: 88.2 kg (194 lb 6.4 oz). Reported weight: Wt Readings from Last 3 Encounters: 07/02/20 88.2 kg (194 lb 6.4 oz) 06/07/20 84.8 kg (187 lb) 04/26/20 79.4 kg (175 lb) No Updated Labs Since Last Visit Nutrition Assessment/Impression/Diagnosis Cecilia was feeling poorly today when I phoned. She plans to go to Urgent Care due to feeling poorly and blood in urine. We cut the visit short. Plan/Intervention/Recommendations None. Follow-up: 1 week. Thank you for the privilege of working with this patient. Mauro Molina RDN, LD This was a TeleHealth Nutrition Visit. Patient verbalizes consent to the telehealth visit for nutrition counseling and coaching. cc: Mckenna Genao APRN [address] [place] [address] documented in this encounter Plan of Treatment Upcoming Encounters Date Type Department Care Team (Late st Contact Info) Description 11/11/2023 3:00 AM EDT [place] [address] documented as of this encounter Visit Diagnoses Diagnosis Nutritional counseling documented in this encounter Care Teams Supervisor Briar Shop Relationship Specialty Start Date End Date Mckenna Genao APRN [address] [place] [address] PCP - General Family Medicine 05/07/17 08/08/21 documented as of this encounter
--- OUTSIDE RECORDS SUMMARY | 2023-11-04 15:14 | XMS_ITS | Encounter Summary ---
[place] [address] Care Team Providers Care Business Development Sales Executive Name Role Phone BirgitMckenna SUELLEN Primary Care Provider [phone] Encounter Details Date Type Department Care Team (Latest Contact Info) Description 01/11/2021 1:00 PM EDT TH Visit (TeleHealth) Cardiology at [address] [address] Mauro Molina, [facility] [place] [address] Nutritional counseling Social History Tobacco Use Types [...] Progress Notes * Mauro Molina, RD - 01/11/2021 1:00 PM EDT Images from the original note were not included. [facility] Cardiovascular Medicine Cardiology Nutrition Follow-up [facility] [address] [id number] , #2 eFax: 01/11/21 Anel Dumont is a 51 y.o. patient of Mckenna Genao APRN referred to Cardiology Dietitian Client Relations Representative by Dr. 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 (Rescheduled December visit to January 11, 2021.) Subjective Cecilia Dumont's Overall Health Goal: tbd Goal is motivated by: Plan from last visit E-mailed October nutrition newsletter on healthier eating while traveling. Follow-up: 4 weeks. Discuss newsletter and ways to manage healthier eating while traveling. Food and Lifestyle-related Successes: Barriers Encountered & Resolutions Identified: Objective Present Dietary Pattern: Present Diet: 1200 to 1400 calorie Mediterranean Diet Pattern composed of 30% protein, 30% fat, 40%carbohydrate: # Servings/day Food Group Serving size Notes [...] Dairy/dairy alternatives 8 ounces Current: Interim Events: Physical Estimated body mass index is 34.44 kg/m?? as calculated from the following: Height as of 07/02/20: 160 cm (5' 3). Weight as of 07/02/20: 88.2 kg (194 lb 6.4 oz). Reported weight: Wt Readings from Last 3 Encounters: 07/02/20 88.2 kg (194 lb 6.4 oz) 06/07/20 84.8 kg (187 lb) 04/26/20 79.4 kg (175 lb) No Updated Labs Since Last Visit: No results for input(s): HA1C in the last 7068 hours. Nutrition Assessment/Impression/Diagnosis Plan/Intervention/Recommendations Plan/Intervention/Recommendations ... (in bullet form) Follow-up: Thank you for the privilege of working with this patient. Mauro Molina RDN, LD This was a TeleHealth Nutrition Visit. Patient verbalizes consent to the telehealth visit for nutrition counseling and coaching. cc: Mckenna Genao APRN [address] [address] documented in this encounter Plan of Treatment Upcoming Encounters Date Type Department Care Team (Late st Contact Info) Description 11/11/2023 3:00 AM EDT [place] [address] documented as of this encounter Visit Diagnoses Diagnosis Nutritional counseling documented in this encounter Care Teams Business Development Sales Executive Relationship Specialty Start Date End Date Mckenna Genao APRN [address], [place] [address] PCP - General Family Medicine 05/07/17 08/08/21 documented as of this encounter
--- OUTSIDE RECORDS SUMMARY | 2023-11-04 15:14 | XMS_ITS | Encounter Summary ---
[place] [address] Care Team Providers Care Spray Gun Striper Name Role Phone SandraMckenna rodriguez SUELLEN Primary Care Provider [phone] Encounter Details Date Type Department Care Team (Late st Contact Info) Description 01/09/2021 External Results [facility] [place] [address] Estelle Clarke Social History Tobacco Use Types [...] Visit [facility] [place] [phone] documented as of this encounter Procedures Procedure Name Priority Date/Time Associated Diagnosis Comments EXTERNAL LAB HEMATOLOGY/COAG RESULTS PANEL Routine 01/08/2021 documented in this encounter Results * Hematology / Coag External Results (01/08/2021) INR 3.30 EXTERNAL LAB Comment:[facility] [place] [facility] 01/08/2021 Historical Provider HEMATOLOGY ORDERA BLES EXTERNAL LAB documented in this encounter Visit Diagnoses Not on filedocumented in this encounter Care Teams Spray Gun Striper Relationship Specialty Start Date End Date Mckenna Genao, HOOD MAKER [address] [place] [address] PCP - General Family Medicine 05/07/17 08/08/21 documented as of this encounter
--- OUTSIDE RECORDS SUMMARY | 2023-11-04 15:14 | XMS_ITS | Encounter Summary ---
[place] [address] Care Team Providers Care Channel Installer Name Role Phone BirgitMckenna SUELLEN Primary Care Provider [phone] Encounter Details Date Type Department Care Team (Latest Contact Info) Description 11/16/2020 10:00 AM EDT TH Visit (TeleHealth) Cardiology at [address] [address] Mauro Molina, [facility] [place] [place] [address] Nutritional counseling Social History Tobacco Use Types [...] Progress Notes * Mauro Molina, RD - 11/16/2020 10:00 AM EDT Images from the original note were not included. [facility] Cardiovascular Medicine Cardiology Nutrition Follow-up [facility] [address] [phone] , #2 eFax: 11/16/20 Identification Cecilia Dumont is a 50 y.o. patient of Mckenna Genao APRN referred to Cardiology Dietitian Lay Out Former by Dr. 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 Subjective Cecilia Dumont's Overall Health Goal: tbd Plan from last visit Cecilia was feeling poorly today when I phoned. She plans to go to Urgent Care due to feeling poorly and blood in urine. We cut the visit short. Previous plan had been: ?? Put 8 12-oz bottles of water daily for sufficient fluids daily into fridge and set reminder on her phone to drink. ?? Step-counting. Food and Lifestyle-related Successes: Setting timer to drink 8 bottles daily - 6 to 7 Barriers Encountered & Resolutions Identified: Kidney stones antibiotics, high fluids No appetite Objective Present Diet: 1200 to 1400 calorie [...] Dairy/dairy alternatives 8 ounces Current: Interim Events: Dx w/kidney stones, placed on anti-bx Physical Estimated body mass index is 34.44 [...] Since Last Visit Nutrition Assessment/Impression/Diagnosis Cecilia has focused on increasing her fluid intakes and is now consuming 72 to 84 oz/day of water. She has set the timer on her phone to remind her. She is scheduled with Urology early December for evaluation of nephrolithiasis, after which she plans to fly to her sister's home in [facility]. She is interested in discussing healthy food choices when traveling at our next visit. Plan/Intervention/Recommendations E-mailed October nutrition newsletter on healthier eating while traveling. Follow-up: 4 weeks. Discuss newsletter and ways to manage healthier eating while traveling. Thank you for the privilege of working with this patient. Mauro Molina RDN, LD This was a TeleHealth Nutrition Visit. Patient verbalizes consent to the telehealth visit for nutrition counseling and coaching. cc: Mckenna Genao APRN [address] [place] [address] documented in this encounter Plan of Treatment Upcoming Encounters Date Type Department Care Team (Late st Contact Info) Description 11/11/2023 3:00 AM EDT [place] [address] documented as of this encounter Visit Diagnoses Diagnosis Nutritional counseling documented in this encounter Care Teams Channel Installer Relationship Specialty Start Date End Date Mckenna Genao APRN [address] [place] [address] PCP - General Family Medicine 05/07/17 08/08/21 documented as of this encounter
--- OUTSIDE RECORDS SUMMARY | 2023-11-04 15:14 | XMS_ITS | Encounter Summary ---
Author [place] [address] Care Team Providers Care Band Splicer Name Role Phone KareenMckenna marlow CLAY MINER Primary Care Provider [phone] Encounter Details Date Type Department Care Team (Late st Contact Info) Description 09/07/2020 External Results Internal Medicine at [facility] [address] [place] [address] Estelle Clarke Social History Tobacco Use Types [...] Visit [facility] [place] [address] documented as of this encounter Procedures Procedure Name Priority Date/Time Associated Diagnosis Comments EXTERNAL LAB HEMATOLOGY/COAG RESULTS PANEL Routine 09/06/2020 documented in this encounter Results * Hematology / Coag External Results (09/06/2020) INR 2.70 EXTERNAL LAB Comment:[facility] 09/06/2020 Historical Provider HEMATOLOGY ORDERA BLES EXTERNAL LAB documented in this encounter Visit Diagnoses Not on filedocumented in this encounter Care Teams Band Splicer Relationship Specialty Start Date End Date Mckenna Genao, SUELLEN [address] [place] [address] PCP - General Family Medicine 05/07/17 08/08/21 documented as of this encounter
--- OUTSIDE RECORDS SUMMARY | 2023-11-04 15:14 | XMS_ITS | Encounter Summary ---
[place] [address] Care Team Providers Care Private Investigator Name Role Phone Mckenna Genao LEAD PRINCIPAL TECHNICAL ARCHITECT Primary Care Provider [phone] Encounter Details Date Type Department Care Team (Late st Contact Info) Description 08/17/2020 External Results Internal Medicine at [facility] [address] [place] [address] Estelle Clarke Social History Tobacco Use Types [...] Visit [facility] [place] [address] documented as of this encounter Procedures Procedure Name Priority Date/Time Associated Diagnosis Comments EXTERNAL LAB HEMATOLOGY/COAG RESULTS PANEL Routine 08/17/2020 documented in this encounter Results * (ABNORMAL) Hematology / Coag External Results (08/17/2020) INR 2.00(EXTER NAL/ABN) EXTERNAL LAB Comment:[facility] 08/17/2020 Historical Provider HEMATOLOGY FADUMO PAD[place] EXTERNAL LAB documented in this encounter Visit Diagnoses Not on filedocumented in this encounter Care Teams Private Investigator Relationship Specialty Start Date End Date Mckenna Genao, SUELLEN [address] [place] [address] PCP - General Family Medicine 05/07/17 08/08/21 documented as of this encounter
--- OUTSIDE RECORDS SUMMARY | 2023-11-04 15:14 | XMS_ITS | Encounter Summary ---
[place] [address] Care Team Providers Care Food Service Specialist Name Role Phone SandraMckenna rodriguez SUELLEN Primary Care Provider [phone] Encounter Details Date Type Department Care Team (Late st Contact Info) Description 10/23/2020 External Results [facility] Centralized [place] [address] Estelle Clarke Social History Tobacco Use Types [...] Telephone Visit [facility] Centralized [place] [address] documented as of this encounter Procedures Procedure Name Priority Date/Time Associated Diagnosis Comments EXTERNAL LAB HEMATOLOGY/COAG RESULTS PANEL Routine 10/23/2020 documented in this encounter Results * (ABNORMAL) Hematology / Coag External Results (10/23/2020) INR 2.40(EXTER NAL/ABN) EXTERNAL LAB Comment:[facility] 10/23/2020 Historical Provider HEMATOLOGY ORDERA BLES EXTERNAL LAB documented in this encounter Visit Diagnoses Not on filedocumented in this encounter Care Teams Food Service Specialist Relationship Specialty Start Date End Date Mckenna Genao, MANAGER IMAGE [address] [place] [address] PCP - General Family Medicine 05/07/17 08/08/21 documented as of this encounter
--- OUTSIDE RECORDS SUMMARY | 2023-11-04 15:14 | XMS_ITS | Encounter Summary ---
[place] [address] Care Team Providers Care Product Manufacturing Professional Name Role Phone BirgitMckenna SUELLEN Primary Care Provider [phone] Encounter Details Date Type Department Care Team (Latest Contact Info) Description 12/12/2020 4:00 AM EDT Anti-Coag Telephone Visit [facility] Central[place] [phone] Lindsey Menard, [facility] Antiphospholipid antibody [...] of this encounter Progress Notes * [facility]/12/[facility] 4:00 AM EDT Images from the original note were not included. Anticoagulation Therapy Note Anticoagulation Summary As of 12/12/2020 INR goal: 2.5-3.5 TTR: 31.2 % (6 mo) INR used for dosin.20 (12/11/2020) Warfarin maintenance plan: 7.5 mg (5 mg x 1.5) every Thu, Thu; 10 mg (5 mg x 2) all other days Weekly warfarin total: 65 mg Plan last modified: Lindsey Menard [facility] (12/12/2020) Next INR check: 12/19/2020 Target end date: Indefinite Indications Antiphospholipid antibody----- use antiXa level to dose heparin. 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] Cerebral infarction---at age 21 [I63.9] Pulmonary embolism [I26.99] Systemic lupus erythematosus [M32.9] Anticoagulation Episode Summary INR check location: Outside Lab Preferred lab: EXTERNAL LAB Send INR reminders to: [facility] CENTRALIZED ANTICOAGULATION CLINIC Comments: [facility] -PCP ( NO THURSDAY TESTING 24 hr TURN AROUND ON LABS) [phone] (M) Anticoagulation Care Providers Provider Role Specialty Phone number Hunter Navarro MD Referring Cardiology [phone] Gerardo Richter MD Responsible Cardiology [phone] Patient Assessment Service Type: INR Test Result INR Result: Out of Range Clinical Outcomes Negatives: Major bleeding event, Thromboembolic event, Anticoagulation-related hospital admission, Anticoagulation-related ED visit Patient Findings Positives: Upcoming Travel (see notes) Negatives: Planning or Currently , Recent Fall, Signs/symptoms of thrombosis, Signs/symptoms of bleeding, Laboratory test error suspected, Change in health, Change in alcohol use, Change in activity, Upcoming invasive procedure, Emergency department visit, Upcoming dental procedure, Missed doses, Extra doses, Change in medications, Change in diet/appetite, Hospital admission, Bruising, Other complaints Warfarin Therapy Instructions December 2020 Details Sun Thu Wed Yaritza Fri Sat 1 2 3 4 5 6 7 8 10 mg See details 9 10 mg 10 10 mg 11 10 mg 12 10 mg 13 7.5 mg 14 10 mg 15 7.5 mg 16 17 18 19 20 21 22 23 24 25 26 27 28 29 30 Date Details 12/12 This INR check Date of next INR: 12/19/2020 How to take your warfarin dose To take: 7.5 mg Take 1.5 of the 5 mg tablets. To take: 10 mg Take 2 of the 5 mg tablets. Description 12/12: INR elevated as of yesterday. She denies med/diet changes, missed doses, s/sx of bleeding, ands/sx of clots. Was instructed by clinical rehab liaison provider last night to hold her dose on Thursday. She received a total of 70 mg over the week last time we gave her dosing. Will readjust her weekly dosing to 67.5 mg and recheck INR in 1 week. Pt will be traveling to [place] leaving on 12/14 and returning 01/01. She [...] 12/03 INR elevated on 11/29 , cardiology clinical rehab liaison dosed patient . was to hold dose to Thursday, how every Cecilia reports she only held her dose Thursday and Thursday and took 5 mg Thursday, Will have her take 7.5 mg tonight and will retest INR tomorrow. 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
--- OUTSIDE RECORDS SUMMARY | 2023-11-04 15:14 | XMS_ITS | Encounter Summary ---
[place] [address] Care Team Providers Care Waiter/Waitress Room Service Name Role Phone Birgit Mckenna SUELLEN Primary Care Provider [phone] Encounter Details Date Type Department Care Team (Latest Contact Info) Description 11/12/2020 4:00 AM EDT Anti-Coag Telephone Visit [facility] [place] [address] Shasta Delaney, [facility] - [...] [facility] [place] - 11/12/2020 4:00 AM EDT Images from the original note were not included. Anticoagulation Therapy Note Anticoagulation Summary As of 11/12/2020 INR goal: 2.5-3.5 TTR: 31.6 % (6 mo) INR used for dosin.8 (11/12/2020) Warfarin maintenance plan: 7.5 mg (5 mg x 1.5) every Tue; 10 mg (5 mg x 2) all other days Weekly warfarin total: 67.5 mg Plan last modified: Shasta Delaney [facility] (10/17/2020) Next INR check: 11/21/2020 Priority: 1 Week Target end date: Indefinite Indications Antiphospholipid antibody----- use antiXa level to dose heparin. 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] Cerebral infarction---at age 21 [I63.9] Pulmonary embolism [I26.99] Systemic lupus erythematosus [M32.9] Anticoagulation Episode Summary INR check location: Outside Lab Preferred lab: EXTERNAL LAB Send INR reminders to: [facility] CENTRALIZED ANTICOAGULATION CLINIC Comments: [facility] -PCP Anticoagulation Care Providers Provider Role Specialty Phone number Hunter Navarro MD Referring Cardiology [phone] Gerardo Richter MD Responsible Cardiology [phone] Patient Assessment Service Type: INR Test Result INR Result: In Range Clinical Outcomes Negatives: Major bleeding event, Thromboembolic event, Anticoagulation-related hospital admission, Anticoagulation-related ED visit Patient Findings Positives: Change in health (Kidney stones), Change in medications (cephalexin 500mg QID 11/09-11/19) Negatives: Upcoming Travel, Planning or Currently , Recent Fall, Signs/symptoms of thrombosis, Signs/symptoms of bleeding, Laboratory test error suspected, Change in alcohol use, Change in activity, Upcoming invasive procedure, Emergency department visit, Upcoming dental procedure, Missed doses, Extra doses, Change in diet/appetite, Hospital admission, Bruising, Other complaints Warfarin Therapy Instructions November 2020 Details Sun Mon Tue Wed Yaritza Fri Sat 1 2 3 4 5 6 7 8 9 10 mg See details 10 7.5 mg 11 10 mg 12 10 mg 13 10 mg 14 10 mg 15 10 mg 16 10 mg 17 7.5 mg 18 10 mg 19 20 21 22 23 24 25 26 27 28 29 30 31 Date Details 11/12 This INR check Date of next INR: 11/21/2020 How to take your warfarin dose To take: 7.5 mg Take 1.5 of the 5 mg tablets. To take: 10 mg Take 2 of the 5 mg tablets. Description 11/12/20: INR in range. Continue on current dose of warfarin and retest INR again in 1 week due to newly prescribed cephalexin. 10/29 Lab INR 10/26 3.7 slightly elevated will resume 7.5mg tues/10mg all others Recheck 2 weeks 11/0810/25/20: Returned call to patient and left a message. Requested INR be tested tomorrow (lab was backed up today). Requested patient call [facility] tomorrow if she hasn't heard from us [...] dose of 135mg QD. 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
--- OUTSIDE RECORDS SUMMARY | 2023-11-04 15:14 | XMS_ITS | Encounter Summary ---
[place] [address] Care Team Providers Care Aeronautical Inspector Name Role Phone SandraMckenna rodriguez SUELLEN Primary Care Provider [phone] Encounter Details Date Type Department Care Team (Late st Contact Info) Description 11/23/2020 External Results [facility] Central[place] [address] Estelle Clarke Social History Tobacco Use Types [...] Visit [facility] Central[place] [address] documented as of this encounter Procedures Procedure Name Priority Date/Time Associated Diagnosis Comments EXTERNAL LAB HEMATOLOGY/COAG RESULTS PANEL Routine 11/23/2020 documented in this encounter Results * Hematology / Coag External Results (11/23/2020) INR 2.50 [facility] LAB [facility]/23/2020 Historical Provider HEMATOLOGY ORDERA BLES EXTERNAL LAB documented in this encounter Visit Diagnoses Not on filedocumented in this encounter Care Teams Aeronautical Inspector Relationship Specialty Start Date End Date Mckenna Genao, INSTRUCTIONAL INTERVENTIONIST [address] [place] [address] PCP - General Family Medicine 05/07/17 08/08/21 documented as of this encounter
--- OUTSIDE RECORDS SUMMARY | 2023-11-04 15:14 | XMS_ITS | Encounter Summary ---
[place] [address] Care Team Providers Care Guest House Manager Name Role Phone Birgit Mckenna KEN Primary Care Provider [phone] Encounter Details Date Type Department Care Team (Latest Contact Info) Description 08/17/2020 4:00 AM EDT Anti-Coag Telephone Visit Internal Medicine at [facility] [address] [place] [address] Rob Vogel, RN Antiphospholipid antibody syndrome; Aortic valve prosthesis [...] Progress Notes * Rob Vogel, RN - 08/17/2020 4:00 AM EDT Images from the original note were not included. Anticoagulation Therapy Telephone Note: Anticoagulation Summary As of 08/17/2020 INR goal: 2.5-3.5 TTR: 27.5 % (4 mo) INR used for dosin.00 (08/17/2020) Warfarin maintenance plan: 10 mg (5 mg x 2) every Fri; 7.5 mg (5 mg x 1.5) all other days Weekly warfarin total: 55 mg Plan last modified: Rob Vogel RN (08/17/2020) Next INR check: 08/24/2020 Priority: 1 Week Target end date: Indefinite Indications Antiphospholipid antibody----- use antiXa level to dose heparin. 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] Cerebral infarction---at age 21 [I63.9] Pulmonary embolism [I26.99] Systemic lupus erythematosus [M32.9] Anticoagulation Episode Summary INR check location: Outside Lab Preferred lab: EXTERNAL LAB Send INR reminders to: [facility] [place] [facility] Comments: [facility] -PCP Anticoagulation Care Providers Provider Role Specialty Phone number Hunter Navarro MD Referring Cardiology [phone] Gerardo Richter MD Responsible Cardiology [phone] Patient Assessment Clinical Outcomes Negatives: Major bleeding [...] Therapy Instructions August 2020 Details Sun Mon Thu Sat 1 2 3 4 5 6 7 8 9 10 11 12 13 14 10 mg See details 15 7.5 mg 16 7.5 mg 17 7.5 mg 18 7.5 mg 19 7.5 mg 20 7.5 mg 21 10 mg 22 23 24 25 26 27 28 29 30 31 Date Details 08/17 This INR check Date of next INR: 08/24/2020 How to take your warfarin dose To take: 7.5 mg Take 1.5 of the 5 mg tablets. To take: 10 mg Take 2 of the 5 mg tablets. 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
--- OUTSIDE RECORDS SUMMARY | 2023-11-04 15:14 | XMS_ITS | Encounter Summary ---
[place] [address] Care Team Providers Care Machinist/Machine Builder Name Role Phone Birgit Mckenna KEN Primary Care Provider [phone] Encounter Details Date Type Department Care Team (Latest Contact Info) Description 08/08/2020 4:00 AM EDT Anti-Coag Telephone Visit Internal Medicine at [facility] [address] [place] [address] Rob Vogel RN Antiphospholipid antibody syndrome; Aortic valve prosthesis [...] Progress Notes * Rob Vogel RN - 08/08/2020 4:00 AM EDT 08/16- Overdue call- Pt reports testing today- will follow up to obtain the results documented in this encounter Plan of Treatment Upcoming Encounters Date Type Department Care Team (Late st Contact Info) Description 11/11/2023 3:00 AM EDT Anti-Coag Telephone Visit [facility] Centralized [place] [address] documented as of this encounter Visit Diagnoses Diagnosis Antiphospholipid antibody syndrome Primary hypercoagulable state Aortic valve prosthesis present Heart valve replaced by other means Cerebral infarction, unspecified mechanism documented in this encounter Care Teams Machinist/Machine Builder Relationship Specialty Start Date End Date Mckenna Genao, LENGTH CONTROL TESTER [address] [place] [address] PCP - General Family Medicine 05/07/17 08/08/21 documented as of this encounter
--- OUTSIDE RECORDS SUMMARY | 2023-11-04 15:14 | XMS_ITS | Encounter Summary ---
[place] [address] Care Team Providers Care Respite Coordinator Name Role Phone KareenMckenna marlow EQUINE SCIENCE INSTRUCTOR Primary Care Provider [phone] Encounter Details Date Type Department Care Team (Late st Contact Info) Description 08/23/2020 External Results Internal Medicine at [place] [address] [place] [phone] Estelle Clarke Social History Tobacco Use Types [...] Telephone Visit [facility] Centralized [place] [address] documented as of this encounter Procedures Procedure Name Priority Date/Time Associated Diagnosis Comments EXTERNAL LAB HEMATOLOGY/COAG RESULTS PANEL Routine 08/22/2020 documented in this encounter Results * (ABNORMAL) Hematology / Coag External Results (08/22/2020) INR 2.10(EXTER NAL/ABN) EXTERNAL LAB Comment:[facility] 08/22/2020 Historical Provider HEMATOLOGY [facility] EXTERNAL LAB documented in this encounter Visit Diagnoses Not on filedocumented in this encounter Care Teams Respite Coordinator Relationship Specialty Start Date End Date Mkcenna Genao, EQUINE SCIENCE INSTRUCTOR [address] [place] [address] PCP - General Family Medicine 05/07/17 08/08/21 documented as of this encounter
--- OUTSIDE RECORDS SUMMARY | 2023-11-04 15:14 | XMS_ITS | Encounter Summary ---
[place] [address] Care Team Providers Care Pediatric Urologist Name Role Phone Mckenna Genao APRN Primary Care Provider [phone] Reason for Visit * Reason Onset Date Comments Anticoagulation 02/15/2021 Encounter Details Date Type Department Care Team (Late st Contact Info) Description 02/15/2021 Telephone [facility] Central[place] [address] Estelle Clarke Anticoagulation Social History [...] Miscellaneous Notes * Telephone Encounter - Estelle Clarke - 02/15/2021 9:21 AM EST Cecilia called this AM because she woke up to a message from [place] [facility] that her INR was really high yesterday. We were not notified of this and she was upset that there are too many people involved and it makes her nervous. Cecilia states she was admitted to a hospital (not ) for a high INR @Halloween and had to have blood transfusions I was bleeding out! I asked Cecilia if she would feel more comfortable letting her PCP manage her but she said no. However, she is seeing a Pediatric Np for the 1st time today at [facility] and will discuss with him/her about transferring warfarin management. documented in this encounter Plan of Treatment Upcoming Encounters Date Type Department Care Team (Late st Contact Info) Description 11/11/2023 3:00 AM EDT Anti-Coag Telephone Visit [facility] Central[place] [address] documented as of this encounter Visit Diagnoses Not on filedocumented in this encounter Care Teams Pediatric Urologist Relationship Specialty Start Date End Date Mckenna Genao, SUELLEN [address] [place] [address] PCP - General Family Medicine 05/07/17 08/08/21 documented as of this encounter
--- OUTSIDE RECORDS SUMMARY | 2023-11-04 15:14 | XMS_ITS | Encounter Summary ---
[place] [address] Care Team Providers Care Concrete Batch Plant Operator Name Role Phone KareenMckenna marlow DIRECTOR EMPLOYMENT Primary Care Provider [phone] Encounter Details Date Type Department Care Team (Late st Contact Info) Description 08/08/2020 External Results Internal Medicine at [facility] [address] [place] [phone] Estelle Clarke Social History Tobacco Use Types [...] Anti-Coag Telephone Visit [facility] Central[facility] [place] [address] documented as of this encounter Procedures Procedure Name Priority Date/Time Associated Diagnosis Comments EXTERNAL LAB HEMATOLOGY/COAG RESULTS PANEL Routine 08/07/2020 documented in this encounter Results * (ABNORMAL) Hematology / Coag External Results (08/07/2020) INR 2.00(EXTER NAL/ABN) EXTERNAL LAB Comment[facility] 08/07/2020 Historical Provider HEMATOLOGY [facility] EXTERNAL LAB documented in this encounter Visit Diagnoses Not on filedocumented in this encounter Care Teams Concrete Batch Plant Operator Relationship Specialty Start Date End Date Mckenna Genao, SUELLEN [address] [place] [address] PCP - General Family Medicine 05/07/17 08/08/21 documented as of this encounter
--- OUTSIDE RECORDS SUMMARY | 2023-11-04 15:14 | XMS_ITS | Encounter Summary ---
[place] [address] Care Team Providers Care Unit Controller Name Role Phone TerranceMckenna hines SUELLEN Primary Care Provider [phone] Reason for Visit * Reason Onset Date Comments Medication Refill 12/13/2020 Encounter Details Date Type Department Care Team (Late st Contact Info) Description 12/13/2020 Refill Cardiology at [address] [phone] Gerardo Richter MD [facility] [place] [address] Medication Refill Social History Tobacco Use Types [...] Visit [facility] [place] [address] documented as of this encounter Visit Diagnoses Diagnosis Pulmonary embolism, unspecified chronicity, unspecified pulmonary embolism type, unspecified whether acute cor pulmonale present- Primary Antiphospholipid antibody----- use antiXa level to dose heparin. Primary hypercoagulable state Cerebral infarction, unspecified mechanism Aortic valve prosthesis present Heart valve replaced by other means documented in this encounter Care Teams Unit Controller Relationship Specialty Start Date End Date Mckenna Genao, ENGINEERING CLERK [address] [address] PCP - General Family Medicine 05/07/17 08/08/21 documented as of this encounter
--- OUTSIDE RECORDS SUMMARY | 2023-11-04 15:14 | XMS_ITS | Encounter Summary ---
[place] [address] Care Team Providers Care Vice President Of Manufacturing Name Role Phone Birgit Mckenna SUELLEN Primary Care Provider [phone] Encounter Details Date Type Department Care Team (Latest Contact Info) Description 02/15/2021 4:00 AM EST Anti-Coag Telephone Visit [facility] [place] [address] Shasta Delaney, [facility] Antiphospholipid antibody syndrome; [...] Shasta Delaney [facility] - 02/15/2021 4:00 AM EST Images from the original note were not included. Anticoagulation Therapy Note Anticoagulation Summary As of 02/15/2021 INR goal: 2.5-3.5 TTR: 22.5 % (6 mo) INR used for dosin.00 (02/14/2021) Warfarin maintenance plan: 7.5 mg (5 mg x 1.5) every Thu, Thu; 10 mg (5 mg x 2) all other days Weekly warfarin total: 65 mg Plan last modified: Lindsey Menard [facility] (12/12/2020) Next INR check: 02/18/2021 Priority: 4 Weeks Target end date: Indefinite Indications Antiphospholipid antibody----- use antiXa level to dose heparin. 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] Cerebral infarction---at age 21 [I63.9] Pulmonary embolism [I26.99] Systemic lupus erythematosus [M32.9] Anticoagulation Episode Summary INR check location: Outside Lab Preferred lab: EXTERNAL LAB Send INR reminders to: [facility] Comments: [facility] -PCP ( NO THURSDAY TESTING 24 hr TURN AROUND ON LABS) [phone] (M) Anticoagulation Care Providers Provider Role Specialty Phone number Hunter Navarro MD Referring Cardiology [phone] Gerardo Richter MD Responsible Cardiology [phone] Patient Assessment Service Type: INR Test Result INR Result: Out of Range Patient Findings Positives: Hospital admission (Recent admission at [facility] (no records sent)) Warfarin Therapy Instructions February 2021 Details Sun Thu Yaritza Fri Sat 1 2 3 4 5 6 7 8 9 10 11 12 Hold See details 13 Hold 14 Hold 15 7.5 mg 16 17 18 19 20 21 22 23 24 25 26 27 28 29 30 Date Details 02/15 This INR check Date of next INR: 02/18/2021 How to take your warfarin dose To take: 7.5 mg Take 1.5 of the 5 mg tablets. Hold Do not take your warfarin dose. See the Details table to the right for additional instructions. Description 02/15/21: Patient was admitted to [facility]. Unclear of what admission dxs was however she states they were questioning whether she had crohn's. She was given blood transfusions due to low hgb/hct while admitted. This is all per Cecilia this morning, I have no documents from her inpt stay. INR yesterday was supra-therapeutic and it's unclear who the result was called to as [facility]. Patient is currently in the office right now establishing care with a Personal Lines Insurance Advisor at [facility]. She took her warfarin last night and I advised no warfarin x 3 and test INR Thursday. I also advised her to tell Cardiology team about elevated INR. If she is establishing care in [place], her warfarinmanagement will be transferred. Cecilia agrees that her care should be transferred. She gave the pipe turner our fax number. Dr. Richetr notified of the situation. -left a voicemail at PCP office requesting warfarin management be transferred now that Cecilia has [facility]. 01/14/21 INR 3.30 Stay on current dose . Left a for Cecilia 12/12: INR elevated as of yesterday. She denies med/diet changes, missed doses, s/sx of bleeding, ands/sx of clots. Was instructed by web application dev specialist provider last night to hold her dose on Thursday. She received a total of 70 mg over the week last time we gave her dosing. Will readjust her weekly dosing to 67.5 mg and recheck INR in 1 week. Pt will be traveling to [place] leaving on 12/14 and returning 01/01. She [...] time. Will need to decrease dose then. documented in this encounter Plan of Treatment Upcoming Encounters Date Type Department Care Team (Late st Contact Info) Description 11/11/2023 3:00 AM EDT Anti-Coag Telephone Visit [facility] [place] [address] documented as of this encounter Visit Diagnoses Diagnosis Antiphospholipid antibody syndrome Primary hypercoagulable state Aortic valve prosthesis present Heart valve replaced by other means Cerebral infarction, unspecified mechanism Pulmonary embolism, unspecified chronicity, unspecified pulmonary embolism type, unspecified whether acute cor pulmonale present documented in this encounter Care Teams Vice President Of Manufacturing Relationship Specialty Start Date End Date Mckenna Genao, AFTER SCHOOL PROGRAM DIRECTOR [address] [place] [address] PCP - General Family Medicine 05/07/17 08/08/21 documented as of this encounter
--- OUTSIDE RECORDS SUMMARY | 2023-11-04 15:14 | XMS_ITS | Encounter Summary ---
[place] [address] Care Team Providers Care Fifth Hand Name Role Phone BirgitMckenna SUELLEN Primary Care Provider [phone] Encounter Details Date Type Department Care Team (Latest Contact Info) Description 10/18/2020 Anti-Coag Telephone Visit [facility] [place] [address] Shasta Delaney, [facility] Antiphospholipid [...] Shasta Delaney [facility] - 10/18/2020 8:32 AM EDT Images from the original note were not included. Anticoagulation Therapy Note Anticoagulation Summary As of 10/18/2020 INR goal: 2.5-3.5 TTR: 23.2 % (6 mo) INR used for dosing: No new INR was available at the time of this encounter. Warfarin maintenance plan: 7.5 mg (5 mg x 1.5) every Tue; 10 mg (5 mg x 2) all other days Weekly warfarin total: 67.5 mg Plan last modified: Shasta Delaney [facility] (10/17/2020) Next INR check: 10/22/2020 Priority: 3 Weeks Target end date: Indefinite Indications Antiphospholipid antibody----- use antiXa level to dose heparin. 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] Cerebral infarction---at age 21 [I63.9] Pulmonary embolism [I26.99] Systemic lupus erythematosus [M32.9] Anticoagulation Episode Summary INR check location: Outside Lab Preferred lab: EXTERNAL LAB Send INR reminders to: [facility] Comments: [facility] -PCP Anticoagulation Care Providers Provider Role Specialty Phone number Hunter Navarro MD Referring Cardiology [phone] Gerardo Richter MD Responsible Cardiology [phone] Patient Assessment Service Type: Anticoag Transition Patient Findings Positives: Change in medications (Start enoxaparin 135mg QD) Warfarin Therapy Instructions October 2020 Details Sun Mon e Wed Yaritza Fri Sat 1 2 3 4 5 6 7 8 9 10 11 12 13 14 15 10 mg See details 16 10 mg See details 17 10 mg See details 18 10 mg See details 19 10 mg 20 23 24 25 26 27 28 29 30 31 Date Details 10/18 This INR check enoxaparin 135mg QD 10/19 enoxaparin 135mg QD 10/20 enoxaparin 135mg QD 10/21 enoxaparin 135mg QD Date of next INR: 10/22/2020 How to take your warfarin dose To take: 10 mg Take 2 of the 5 mg tablets. Description 10/18/20: Cecilia will start enoxaparin 1.5mg/kg/day today. [...] Anti-Coag Telephone Visit [facility] [place] [address] documented as of this encounter Visit Diagnoses Diagnosis Antiphospholipid antibody syndrome Primary hypercoagulable state Aortic valve prosthesis present Heart valve replaced by other means Cerebral infarction, unspecified mechanism Pulmonary embolism, unspecified chronicity, unspecified pulmonary embolism type, unspecified whether acute cor pulmonale present documented in this encounter Care Teams Fifth Hand Relationship Specialty Start Date End Date Mckenna Genao, SUELLEN [address] [place] [place] [address] PCP - General Family Medicine 05/07/17 08/08/21 documented as of this encounter
--- OUTSIDE RECORDS SUMMARY | 2023-11-04 15:15 | XMS_ITS | Encounter Summary ---
Author Organization [place] [address] Care Team Providers Care Pro Shop Attendant Name Role Phone Birgit Mckenna KEN Primary Care Provider [phone] Encounter Details Date Type Department Care Team (Late st Contact Info) Description 06/13/2020 Anti-Coag Telephone Visit Internal Medicine at [facility] [address] [place] [address] Shasta Delaney [facility] Social History Tobacco Use Types Packs/Day Years [...] Shasta Delaney [facility] - 06/13/2020 4:45 PM EST Anticoagulation Therapy Note: Indication: Single subsegmental pulmonary embolism without acute cor pulmonale ,Aortic valve prosthesis present, systemic Lupus erthematosus Duration of treatment: indefinite Range: 2.5-3.5 INR : 1.4 Monitored by: [facility]/ Cardio pt Bernie Ramos Drawn By: [facility] PCP Express care phone tamra Black Next INR Due: 6 days 06/1306/13/20: Cecilia will test INR tomorrow 06/1406/08/20: Cecilia called clinic today to report that she was diagnosed with a kidney infection yesterday and was started on cephalexin 500mg BID x 5 days (06/07-06/11). This antibiotic can increase her INR however I advised her to continue on current maintenance plan provided yesterday. She said the provider she saw yesterday was not concerned about the bruising she reported and advised her to watch it and report back if it worsens. No OTC medications being used. Chart note from the urgent care visit are available, dated 06/07/[address] Small. 06/07/20: INR is subtherapeutic today. Cecilia confirmed she only skipped one dose last week and took warfarin as instructed. She reports bruises appearing all over and pink/orange tinged urine. I instructed her to go to urgent care since [place] and unable to see her PCP. I gave her a modest increase of 6.3% as it seems like her INR has been fluctuating a lot the past couple weeks. Maggy call clinic tomorrow if there are any new medications started that may effect her INR. Note routed to referring provider and recently seen provider as it is unclear who in cardiology is ultimately responsibile for Cecilia's warfarin management. 05/30/20: INR remains elevated despite a dose hold and 5% reduction last week. Will further decreaseweekly dose 11% and retest INR in 1 week. Cecilia reports getting a call last evening from manager fashion provider at PCP's office and was instructed to hold her dose. I still decreased her weekly dose as shereports being under a slot of stress and not eating much. Denies sxs of bleeding but does report some bruises on hips/legs. Understands when to seek medical attention. Cecilia wrote down her new dose instructions and read it back correctly. Patient may still be in [facility] next week and will test INR at [facility]. 05/24/20: INR from yesterday is supratherapeutic. Hold tonight's dose and decrease weekly dose 5%. Retest INR in 1 week. I spoke to Cecilia today and she wrote down the above plan and read it back correctly. Denies recent illness, medication changes or dietary changes. No sxs of bruising or bleeding reported. 05/15/20: INR below range. Increase weekly dose 12% and test INR in 1 week. Cecilia reports testing last week but did not hear from us. I counseled on calling the clinic to report when INR was tested if she doesn't hear within 24 hours. She confirmed current dosing and says she missed one dose 2 weeks ago. She denies changes in diet, health or medications. 04/12/20: INR in range. Spoke to Cecilia and instructed to continue on the same dose of warfarin and retest INR again in 1 week. Confirmed there have been no changes in diet, health or medications. 04/05/20: INR in range. Spoke to Cecilia and instructed to continue on the same dose of warfarin and retest INR again in 1 weeks. She wrote down the doses day by day. No changes in diet, health or medications reported 03/29 New patient referral today from cardiology , was in patient at [facility] from 03/18-03/22. Dx Acute PE , pending labs on discharge Antiphospholipid,ntibody panel, Xa activity, WADE titer, Beta-2 microglobulin New medications on discharge, Lipitor 40 mg daily, Levothyroxine, 25 mcg daily, Toprolol Xl 50 mg daily. Discontinued medications , Zyrtec, Folic acid , Methotrexate, Called and spoke with patient reviewed medication list ,reports eating moderate amount vit k in diet, drinks a glass of wine on holidays. Activities include housework, crafts, likes to walk but not able to due to sob. Denies any high risk behaviors.reports she has as been on warfarin for aprox 30 years and has had hard time keeping INR in range. 1997 last menstrual cycle Dose patient to . Anticoagulation Patient Teaching Patient education materials reviewed with patient related to diagnosis. Information provided listing risks/complications related to anticoagulation therapy. Contact telephone numbers provided including hours of clinic operation. Should pt have concerns after hours or on weekends, Pt understands she should call MD. Recommended use of pill box for warfarin to decrease risk of dosage error. All questions answered for patient ASA 81 mg daily, Plaquenil 200 mg Bid Patient Contact Preference: [phone] (W) Message left on answering machine E-Mail/fax x Spoke with patient Cale Comment: Warfarin dose :5 mg tablet on hand x Increased Decreased Maintained Comment: Falls Risk Asseessment: Have you had any falls in the last month? NO How many times have you fallen? Conditions at time of fall? Refer to falls clinic for evaluation: Yes___ No___ Bleeding: Epistaxis Black tarry stools Gingival bleeding x Abnormal bruising x Hematuria Other: Hemoptysis No bleeding / bruising reported Comment: see note 3/4 Symptoms of recurring primary event: Chest Pain Dyspnea Palpitations Headache Dizziness Edema Confusion Slurred Speech Weakness Visual changes Tender / Red / Swollen Extremities x No symptoms reported Other: Comment: Recent medication changes: Include Prescription/OTC/Herbal x Yes No Comment see note above from 06/08/20 Have you misssed any dose of Coumadin this past week? x Yes No Comment see tracker Dietary / Alcohol Changes: Yes x No Comment Any Illness/Cold Sx/ Diarrhea/ Constipation> 48 hours: x Yes No Comment: see note from 06/08/20 Any Significant Change Activity Level: Yes x No Comment: Upcoming Invasive Procedure Planned: Yes x No Comment: Travel Plans: Yes Travel precautions reviewed x No Comment: Patient understands and agrees with plan of care. . documented in this encounter Plan of Treatment Upcoming Encounters Date Type Department Care Team (Late st Contact Info) Description 11/11/2023 3:00 AM EDT Anti-Coag Telephone Visit [facility] [place] [address] documented as of this encounter Visit Diagnoses Not on filedocumented in this encounter Care Teams Pro Shop Attendant Relationship Specialty Start Date End Date Mckenna Genao, SUELLEN [address] [place] [address] PCP - General Family Medicine 05/07/17 08/08/21 documented as of this encounter
--- OUTSIDE RECORDS SUMMARY | 2023-11-04 15:15 | XMS_ITS | Encounter Summary ---
[place] [address] Care Team Providers Care Gravity Prospecting Observer Helper Name Role Phone KareenMckenna marlow SUPERVISOR LANDSCAPE Primary Care Provider [phone] Encounter Details Date Type Department Care Team (Late st Contact Info) Description 07/10/2020 External Results Internal Medicine at [facility] [address] [place] [id number] Estelle Clarke Social History Tobacco Use Types [...] Anti-Coag Telephone Visit [facility] [place] [address] documented as of this encounter Procedures Procedure Name Priority Date/Time Associated Diagnosis Comments EXTERNAL LAB HEMATOLOGY/COAG RESULTS PANEL Routine 07/09/2020 documented in this encounter Results * Hematology / Coag External Results (07/09/2020) INR 2.80 EXTERNAL LAB Comment:[facility] 07/09/2020 Historical Provider HEMATOLOGY [facility] EXTERNAL LAB documented in this encounter Visit Diagnoses Not on filedocumented in this encounter Care Teams Gravity Prospecting Observer Helper Relationship Specialty Start Date End Date Mckenna Genao, SUELLEN [address] [place] [address] PCP - General Family Medicine 05/07/17 08/08/21 documented as of this encounter
--- OUTSIDE RECORDS SUMMARY | 2023-11-04 15:15 | XMS_ITS | Encounter Summary ---
Author Organization [facility] [place] [address] Care Team Providers Care Printing Supervisor Name Role Phone Birgit Mckenna KEN Primary Care Provider [phone] Encounter Details Date Type Department Care Team (Late st Contact Info) Description 05/15/2020 Anti-Coag Telephone Visit Internal Medicine at [facility] [address] [place] [address] Shasta Delaney [facility] Social History Tobacco Use Types Packs/Day Years [...] Notes * Shasta Delaney [facility] - 05/15/2020 1:03 PM EST Anticoagulation Therapy Note: Indication: Single subsegmental pulmonary embolism without acute cor pulmonale ,Aortic valve prosthesis present, systemic Lupus erthematosus Duration of treatment: indefinite Range: 2.5-3.5 INR : 1.9 Monitored by: [facility]/ Cardio pt Bernie Ramos Drawn By: [facility] PCP Express care phone tamra Black Next INR Due: 1 week 05/2205/15/20: INR below range. Increase weekly dose 12% [...] from cardiology , was in patient [place] [facility] [place]. Dx Acute PE , pending [...] Plaquenil 200 mg Bid Patient Contact Preference: [phone] (W) Message left on answering machine E-Mail/fax x Spoke with patient Cale Lew Comment: Warfarin dose :5 mg tablet on hand x Increased Decreased Maintained Comment: Falls Risk Asseessment: Have you had any falls in the last month? NO How many times have you fallen? Conditions at time of fall? Refer to falls clinic for evaluation: Yes___ No___ Bleeding: Epistaxis Black tarry stools Gingival bleeding Abnormal bruising Hematuria Other: Hemoptysis x No bleeding / bruising reported Comment: Symptoms of recurring primary event: Chest Pain Dyspnea Palpitations Headache Dizziness Edema Confusion Slurred Speech Weakness Visual changes Tender / Red / Swollen Extremities x No symptoms reported Other: Comment: Recent medication changes: Include Prescription/OTC/Herbal Yes x No Comment Have you misssed any dose of Coumadin this past week? x Yes No Comment Dietary / Alcohol Changes: Yes x No Comment Any Illness/Cold Sx/ Diarrhea/ Constipation> 48 hours: Yes x No Comment: Any Significant Change Activity Level: Yes x No Comment: Upcoming Invasive Procedure Planned: Yes x No Comment: Travel Plans: Yes Travel precautions reviewed x No Comment: Patient understands and agrees with plan of care. documented in this encounter Plan of Treatment Upcoming Encounters Date Type Department Care Team (Late st Contact Info) Description 11/11/2023 3:00 AM EDT Anti-Coag Telephone Visit [facility] [place] [address] documented as of this encounter Visit Diagnoses Not on filedocumented in this encounter Care Teams Printing Supervisor Relationship Specialty Start Date End Date Mckenna Genao, SUELLEN [address] [place] [address] PCP - General Family Medicine 05/07/17 08/08/21 documented as of this encounter
--- OUTSIDE RECORDS SUMMARY | 2023-11-04 15:15 | XMS_ITS | Encounter Summary ---
[place] [address] Care Team Providers Care Outside Sales Representative Name Role Phone Mckenna Genao APRN Primary Care Provider [phone] Reason for Visit * Reason Onset Date Comments Medication Refill 07/27/2020 Encounter Details Date Type Department Care Team (Late st Contact Info) Description 07/27/2020 Refill Internal Medicine at [facility] [address] [place] [phone] Estelle Clarke Aortic valve prosthesis present; Chronic [...] * Telephone Encounter - Estelle Clarke - 07/27/2020 9:42 AM EDT Patient lost a bottle of her Warfarin. She needs a new script. 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
--- OUTSIDE RECORDS SUMMARY | 2023-11-04 15:15 | XMS_ITS | Encounter Summary ---
[place] [address] Care Team Providers Care Lithographic Press Operator Name Role Phone TerranceMckenna hines SUELLEN Primary Care Provider [phone] Encounter Details Date Type Department Care Team (Late st Contact Info) Description 03/29/2020 External Results Internal Medicine at [address] [phone] Estelle Clarke Social History Tobacco Use Types [...] Telephone Visit [facility] Centralized [place] [address] documented as of this encounter Procedures Procedure Name Priority Date/Time Associated Diagnosis Comments EXTERNAL LAB HEMATOLOGY/COAG RESULTS PANEL Routine 03/29/2020 documented in this encounter Results * (ABNORMAL) Hematology / Coag External Results (03/29/2020) INR 2.30(EXTER NAL/ABN) EXTERNAL LAB Comment:[facility] ( pcp office) & [place] [facility] 03/29/2020 Historical Provider HEMATOLOGY [facility] EXTERNAL LAB documented in this encounter Visit Diagnoses Not on filedocumented in this encounter Care Teams Lithographic Press Operator Relationship Specialty Start Date End Date Mckenna Genao, SUELLEN [address] [place] [address] PCP - General Family Medicine 05/07/17 08/08/21 documented as of this encounter
--- OUTSIDE RECORDS SUMMARY | 2023-11-04 15:15 | XMS_ITS | Encounter Summary ---
[place] [address] Care Team Providers Care Mobile Device Engineer Name Role Phone Mckenna Genao APRN Primary Care Provider Reason for Referral * Diagnostic Test (Routine) - Closed Specialty Diagnoses / Procedures Referred By Contac t Referred To Contact Radiology Diagnoses FATIMA (dyspnea on exertion) Abnormal stress test Procedures CT Angiogram Coronary Arteries Gerardo Richter MD [facility] [place] [address] [facility] [place] [address] Referral ID Status Reason Start Date Expiration Date V isits Requested Visits Authorized [id number] Closed Specialty Service Requested 04/25/2020 10/23/2021 1 1 Reason for Visit * Diagnostic Test (Routine) - Closed Specialty Diagnoses / Procedures Referred By Contac t Referred To Contact Radiology Diagnoses FATIMA (dyspnea on exertion) Abnormal stress test Procedures CT Angiogram Coronary Arteries Gerardo Richter MD [facility] [place] [address] [facility] [place] [address] Referral ID Status Reason Start Date Expiration Date V isits Requested Visits Authorized [id number] Closed Specialty Service Requested 04/25/2020 10/23/2021 1 1 Encounter Details Date Type Department Care Team (Latest Contact Info) Description 07/02/2020 10:19 AM EDT - 07/02/2020 11:05 AM EDT Hospital [place] [address] Gerardo Richter MD [facility] [place] [address] FATIMA (dyspnea on exertion); Abnormal stress test Discharge Disposition: Home Social History Tobacco Use [...] Sig Dispensed Refills Start Date End Date atorvastatin (Lipitor) 40 mg Tablet Take 1 [...] Once daily 06/05/2010 warfarin (Coumadin) 5 mg TabletIndications:Aorti c valve prosthesis present,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 Take up to 5 mg by mouth nightly as directed. 120 tablet 1 04/17/2020 07/27/2020 warfarin (Coumadin) 7.5 mg Tablet TAKE 1 TABLET BY MOUTH ONCE FOR 1 DOSE 03/20/2020 04/26/2021 hydrOXYchloroQUINE (Plaquenil) 200 mg TabletIndications:syste zoya lupus erythematosus Take 1 tablet by mouth [...] Telephone Visit [facility] [place] [address] documented as of this encounter Procedures Procedure Name Priority Date/Time Associated Diagnosis Comments CT ANGIOGRAM CORONARY ARTERIES Routine 07/02/2020 11:00 AM EDT FATIMA (dyspnea on exertion) Abnormal stress test documented in this encounter Results * CT Angiogram Coronary Arteries (07/02/2020 11:00 AM EDT) Anatomical Region Laterality Modality Cardiac Computed Tomogra phy Impressions 07/02/2020 3:05 PM EDT 1. ??Coronary calcium score of 0 , consistent with undetectable atherosclerotic plaque burden. 2. ??No demonstrable coronary artery plaque or stenosis. CAD-RADS 0. Thank you for letting us participate in the care of this patient. ??If you are a health care provider and have any questions regarding this report, please contact the number below. ??For our patients who have questions regarding this report, please first contact your doctor prior to speaking to our radiologists. ? Narrative 07/02/2020 3:05 PM EDT EXAMINATION: CTA Coronary Arteries CLINICAL HISTORY: CAD suspected, abnormal EST < 2yrs COMPARISON: None TECHNIQUE: 3 mm thick axial contiguous sections through the heart were obtained via ECG-gated axial mode acquisition without intravenous contrast. After time bolus, 0.6 mm thick axial contiguous sections were obtained through the heart via ECG-gated helical acquisition during intravenous administration of 105 cc Omnipaque 350. Post-processing was performed on an independent computer workstation including curved multiplanar reformats, coronary calcium scoring, and 3D reconstructions. FINDINGS: Heart rate: mean 49 bpm, range 43 to 83 bpm Heart rhythm: regular ECG gating: Successful identification of every R wave. ECG editing: Not required Artifacts: Right coronary artery motion artifact. Beam hardening from sternal wires and mechanical aortic valve. Coronary calcium score: Left main: ??Agatston score: 0; Left anterior descending: ??Agatston score: 0; Left circumflex: ??Agatston score: 0; Right coronary: ??Agatston score: 0; TOTAL: ??Agatston score: 0; Volume score: 0; Mass: 0 g Atherosclerotic plaque burden, based on Agatston score: Undetectable Percentile rank, based on age, race/ethnicity, and gender:0%-ile. The estimated probability of a non-zero calcium score for a patient of this age, race, and gender is 13%. Reference: Jose RL, Conor H, Alka R, et al. ??Distribution of coronary artery calcium by race, gender, and age: results from the Multi-Ethnic Study of Atherosclerosis (JALLOH). Circulation. 2006;113(1):30-37. Coronary arteries: Left main: The left main arises from the left coronary cusp. It bifurcates into the left anterior descending and circumflex arteries. No identifiable plaque or stenosis present. Left anterior descending: The left anterior descending courses anteriorly to the apex. It gives off 1 patent diagonal branch. No identifiable plaque or stenosis is present. Diagonal branches: No identifiable plaque or stenosis present. Left circumflex: Nondominant. The left circumflex courses in the AV groove and gives off 2 patent obtuse marginal branches. No identifiable plaque or stenosis. Obtuse marginal branches: No demonstrable plaque or stenosis. Right coronary: Dominant vessel. The right coronary arises from the right coronary cusp. It terminates as the posterior descending and right posterior lateral branch. There is no identifiable plaque or stenosis. Posterior descending: No demonstrable plaque or stenosis. Cardiac chambers: The left ventricle is normal in size. No evidence of previous infarct. Interventricular septum appears lipomatous and is intact. The left atrium appears normal in size. The left atrial appendage is without thrombus. 4 pulmonary veins are seen entering the left atrium. Interatrial septum appears intact. Great vessels: The aorta is normal in course and caliber for age. Visualized portions of the proximal pulmonary arteries are without thrombus. Other findings: A bileaflet mechanical aortic prosthesis is present. Sternal wires are present. Procedure Note Silvio Beaulieu MD - 07/02/2020 EXAMINATION: CTA Coronary Arteries CLINICAL HISTORY: CAD suspected, abnormal EST < 2yrs COMPARISON: None TECHNIQUE: 3 mm thick axial contiguous sections through the heart wereobtained via ECG-gated axial mode acquisition without intravenous contrast. Aftertime bolus, 0.6 mm thick axial contiguous sections were obtained through theheart via ECG-gated helical acquisition during intravenous administration of 105cc Omnipaque 350. Post-processing was performed on an independent computer workstation including curved multiplanar reformats, coronary calciumscoring, and 3D reconstructions. FINDINGS: Heart rate: mean 49 bpm, range 43 to 83 bpm Heart rhythm: regular ECG gating: Successful identification of every R wave. ECG editing: Not required Artifacts: Right coronary artery motion artifact. Beam hardening fromsternal wires and mechanical aortic valve. Coronary calcium score: Left main: Agatston score: 0; Left anterior descending: Agatston score: 0; Left circumflex: Agatston score: 0; Right coronary: Agatston score: 0; TOTAL: Agatston score: 0; Volume score: 0; Mass: 0 g Atherosclerotic plaque burden, based on Agatston score: Undetectable Percentile rank, based on age, race/ethnicity, and gender:0%-ile. The estimated probability of a non-zero calcium score for a patient ofthis age, race, and gender is 13%. Reference: Jose RL, Conor H, Alka R, et al. ??Distribution ofcoronary artery calcium by race, gender, and age: results from the Multi-EthnicStudy of Atherosclerosis (JALLOH). Circulation. 2006;113(1):30-37. Coronary arteries: Left main: The left main arises from the left coronary cusp. It bifurcatesinto the left anterior descending and circumflex arteries. No identifiableplaque or stenosis present. Left anterior descending: The left anterior descending courses anteriorlyto the apex. It gives off 1 patent diagonal branch. No identifiable plaque orstenosis is present. Diagonal branches: No identifiable plaque or stenosis present. Left circumflex: Nondominant. The left circumflex courses in the AV grooveand gives off 2 patent obtuse marginal branches. No identifiable plaque orstenosis. Obtuse marginal branches: No demonstrable plaque or stenosis. Right coronary: Dominant vessel. The right coronary arises from theright coronary cusp. It terminates as the posterior descending and rightposterior lateral branch. There is no identifiable plaque or stenosis. Posterior descending: No demonstrable plaque or stenosis. Cardiac chambers: The left ventricle is normal in size. No evidence ofprevious infarct. Interventricular septum appears lipomatous and is intact. Theleft atrium appears normal in size. The left atrial appendage is withoutthrombus. 4 pulmonary veins are seen entering the left atrium. Interatrial septumappears intact. Great vessels: The aorta is normal in course and caliber for age.Visualized portions of the proximal pulmonary arteries are without thrombus. Other findings: A bileaflet mechanical aortic prosthesis is present.Sternal wires are present. IMPRESSION 1. Coronary calcium score of 0 , consistent with undetectableatherosclerotic plaque burden. 2. No demonstrable coronary artery plaque or stenosis. CAD-RADS 0. Thank you for letting us participate in the care of this patient. If youare a health care provider and have any questions regarding this report,please contact the number below. For our patients who have questions regardingthis report, please first contact your doctor prior to speaking to ourradiologists. Gerardo Richter MD IMG CT ORDERABLES documented in this encounter Visit Diagnoses Diagnosis FATIMA (dyspnea on exertion) Other dyspnea and respiratory abnormality Abnormal stress test Other nonspecific abnormal cardiovascular system function study documented in this encounter Administered Medications Inactive Administered Medications - up to 3 most recent administrations Medication Order MAR Action Action Date Dose Rate Site iohexoL (Omnipaque) (350 mg/mL) injection solution 0-200 mL 0-200 mL, Intravenous, ONCE PRN, 1 dose, Starting on Thu07/02/20 at 1058, Until Thu07/02/20 at 1059, Per Protocol, Warning Vesicant/Irritant Medication , Radiology Contrast, Routine Given 07/02/2020 10:59 AM EDT 104 mLs documented in this encounter Care Teams Mobile Device Engineer Relationship Specialty Start Date End Date Mckenna Genao, SUELLEN [address] [address] PCP - General Family Medicine 05/07/17 08/08/21 documented as of this encounter
--- OUTSIDE RECORDS SUMMARY | 2023-11-04 15:15 | XMS_ITS | Encounter Summary ---
[place] [address] Care Team Providers Care Poultry Packer Name Role Phone TerranceMckenna hines SUELLEN Primary Care Provider [phone] Encounter Details Date Type Department Care Team (Late st Contact Info) Description 04/05/2020 External Results Internal Medicine at [address] [id number] Estelle Clarke Social History Tobacco Use Types [...] Telephone Visit [facility] Central[place] [address] documented as of this encounter Procedures Procedure Name Priority Date/Time Associated Diagnosis Comments EXTERNAL LAB HEMATOLOGY/COAG RESULTS PANEL Routine 04/05/2020 documented in this encounter Results * Hematology / Coag External Results (04/05/2020) INR 2.60 EXTERNAL LAB Comment:[facility] ( pcp office) & [facility] 04/05/2020 Historical Provider HEMATOLOGY ORDERA BLES EXTERNAL LAB documented in this encounter Visit Diagnoses Not on filedocumented in this encounter Care Teams Poultry Packer Relationship Specialty Start Date End Date Mckenna Genao, SUELLEN [address] [place] [address] PCP - General Family Medicine 05/07/17 08/08/21 documented as of this encounter
--- OUTSIDE RECORDS SUMMARY | 2023-11-04 15:15 | XMS_ITS | Encounter Summary ---
Author Organization [facility] [place] [address] Care Team Providers Care Tour Production Supervisor Name Role Phone Mckenna Genao APRN Primary Care Provider [phone] Reason for Referral * Diagnostic Test (Routine) - Closed Specialty Diagnoses / Procedures Referred By Edgar warren Referred To Contact Radiology Diagnoses FATIMA (dyspnea on exertion) Abnormal stress test Procedures CT Angiogram Coronary Arteries Gerardo Richter MD [facility] [place] [address] [facility] [place] [address] Referral ID Status Reason Start Date Expiration Date V isits Requested Visits Authorized [id number] Closed Specialty Service Requested 04/25/2020 10/23/2021 1 1 Reason for Visit * Reason Comments Shortness of Breath * Consultation (Routine) - Closed Specialty Diagnoses / Procedures Referred By Edgar warren Referred To Contact Cardiology Diagnoses Single subsegmental pulmonary embolism without acute cor pulmonale Antiphospholipid antibody syndrome Referral to cardiology for ongoing management of mechanical AVR and anticoagulation in the setting of mAVR, antiphospholipid syndrome, recent PE Deniz Root Jr., MD [facility] [place] [address] [facility] [address] [place] [id number] Referral ID Status Reason Start Date Expiration Date V isits Requested Visits Authorized [id number] Closed Consult, Test & Treat 03/20/2020 03/20/2021 1 1 Encounter Details Date Type Department Care Team (Latest Contact Info) Description 04/25/2020 10:20 AM EST TH Visit (TeleHealth) Cardiology at [address] [address] Gerardo Richter MD [facility] [place] [address] FATIMA (dyspnea on exertion); Anti-phospholipid antibody syndrome; S/P AVR; Abnormal stress test Social History Tobacco Use Types Packs/Day Years [...] Progress Notes * Gerardo Richter MD - 04/25/2020 10:20 AM EST CARDIOLOGY/VASCULAR MEDICINE TELE VISIT NOTE Cecilia Dumont 04/25/20 The patient consented to this being a virtual visit. HPI: Cecilia Dumont is a 50 y.o. year old female with a history of SLE with triple positive APLA, CVA, dilated CMY with recovered EF, AVR who was admitted to [facility] in March 2020 with several weeks of pleuritic chest pain and FATIMA. CTA at outside hospital initially concerning for subsegmental PE w/o RV strain; however, consequent review with radiology at [facility] w/o evidence of PE or other lung pathology. Her TTE was unremarkable. Due to her symptoms, she underwent stress echo, which showed possible ischemia in RCA territory. Due to small territory of WMA, she was discharged with outpatient follow-up. Since discharge, she reports that she has had no more pleuritic chest pain. She continues to have significant dyspnea on exertion with walking up the stairs. She does not have shortness of breath at rest. She does report PND but denies orthopnea, lower extremity edema, palpitations, presyncope or syncope. She reports diaphoresis in association with dyspnea on exertion. She is able to perform ADLsbut cannot walk more than a few steps without dyspnea on exertion. She is to smoke a few cigarettesas a teenager, but no prolonged smoking history. Her INRs have been therapeutic since discharge. Brief ROS: Activity level: Independent with ADLs No new orthopnea, LE edema. No lightheadedness, dizziness, syncope/pre-syncope. No new CP. Medications: Current Outpatient Medications Medication Sig Dispense Refill ??? warfarin (Coumadin) 5 mg Tablet Variable dosing. Take up to 5 mg by mouth nightly as directed. 120 tablet 1 ??? warfarin (Coumadin) 7.5 mg Tablet TAKE [...] with patient. Objective Data: VS at home: Not measuring BP at home Labs: Lab Results Component Value Date WBC 7.1 03/21/2020 HGB 14.0 03/21/2020 HCT 41.2 03/21/2020 MCV 93.8 03/21/2020 PLATELET 223 03/21/2020 No results for input(s): NA, K, CL, CO2, BUN, CREATININE, GLUCOSE in the last 168 hours. Lab Results Component Value Date INR 2.6 04/12/2020 INR 2.60 04/05/2020 Lab Results Component Value Date CHLPL 236 [...] study 06/30/17, no significant changes have Occured. Stress echo 03/21/2020: 1. REST: The ECG shows sinus rhythm with inferolateral TWI. Full study done 19 Mar 2020. The apical inferior wall segment is dyskinetic (loop 8) [...] an apical WMA and probable inferior ischemia. DVT duplex 03/19/2020: Interpretation: RIGHT: ??No evidence of lower extremity deep venous thrombosis. LEFT: ??No evidence of lower extremity deep venous thrombosis. CTA-PE 03/18/2020: IMPRESSION Allowing for cardiovascular pulsation artifact in the medial left lung adjacent to aortic arch and left ventricle, no pulmonary arterial filling defects seen. Cath 05/20/2017: Hemodynamics: Right Heart Pressures Hemodynamics: Syst Diast EDP a v m RA 10 5 4 RV 22 4 PA 16 4 10 PCW 7 5 3 Hemodynamic Profile: Profile 1 CO 4.55 CI 2.57 TPR 176 PVR 123 Technique Estimated Danielle Left Heart Pressures Resting: Syst Diast EDP a v m Ao 99 31 Comments: In the lightly sedated, supine state, right and left sided filling pressures are low normal (mean RA 4 mmHg, wedge 3 mmHg). No pulmonary hypertension seen (mean PA 10 mmHg). Systemic pressure low normal (99/31 mmHg) with wide pulse pressure. Cardiac output by estimated Danielle normal (4.6 L/min). Together these findings suggest low normal filling pressures and preserved cardiac output. 250ml NS bolus at 0926. AO opening 99/31 (55). RArt pressure 87/22(45). Oximetry: Location %Sat Location %Sat Main Pulmonary Artery 63.0 Peripheral Arterial 90.0 Coronary Angiography: Dominance: Right Left Main The left main was normal, free of disease. Left Anterior Descending The left anterior descending (LAD) was normal, free of disease. Left Circumflex The left circumflex (LCX) was normal, free of disease. Right Coronary Artery The right coronary artery (RCA) was normal, free of disease. Assessment: #1 Dyspnea on exertion #2 Triple positive APLA #3 History of AVR Ms. Dumont is a very pleasant 50 woman with history of SLE and triple positive a GASTON with consequent stroke, status post mechanical AVR, and recent admission for pleuritic chest pain and shortness of breath, initially concerning for pulmonary embolism, which was ruled out and mildly abnormal stress test. She continues to have significant dyspnea exertion with minimal exertion. I am not quite sure that the minor wall motion normalities seen on stress echo correspond to her significant dyspnea on exertion. She had a normal coronary angiography back in 2018 prior to AVR. However, given her significant symptoms, I will obtain CTA coronaries to evaluate her coronary anatomy given abnormal stress test. Additionally, will obtain PFTs. I will see her in clinic after these tests are completed. Plan 1. CTA coronary arteries. 2. PFTs. 3. Return to clinic after above studies are complete. I spent a total of 30 minutes associated with this encounter including chart review, the patient encounter, and documentation, of which more than 50% was with direct patient contact. Gerardo Richter MD, MPH, RPVI, [facility] Cardiovascular Emission SpecialistDrop Pit [place] [address] documented in this encounter Plan of Treatment Upcoming Encounters Date Type Department Care Team (Late st Contact Info) Description 11/11/2023 3:00 AM EDT Anti-Coag Telephone Visit [facility] Centralized [place] [address] documented as of this encounter Results * Pulmonary Function Testing (07/02/2020 11:42 AM EDT) FVC Actual Pre-BD 2.97 L [facility]AS PFT FVC Pre-BD % of Predicted 85 % COMPAS PFT FVC Predicted 3.48 L COMPAS PFT FVC Pre-BD Z-Score -1.12 COMPAS PFT FVC Lower Limits of Normal 2.74 L COMPAS PFT FEV1 Actual Pre-BD 2.45 L COMPAS PFT FEV1 Pre-BD % of Predicted 88 % COMPAS PFT FEV1 Predicted 2.80 L [facility]AS PFT FEV1 Pre-BD Z-Score -0.96 COMPAS PFT FEV1 Lower Limits of Normal 2.19 L [facility]AS PFT FEV1 / FVC Actual Pre-BD 82 % COMPAS PFT FEV1/FVC Pre-BD Z-Score 0.16 COMPAS PFT FEV1 / FVC LLN 70 % COMPAS PFT [id number] Actual Pre-BD 2.43 L/s COMPAS PFT [id number] Pre-BD % of Predicted 87 % COMPAS PFT [id number] Predicted 2.80 L/s COMPAS PFT [id number] Pre-BD Z-Score -0.46 COMPAS PFT DLCO Hb Actual Pre-BD 19.54 mL/min/mmHg COMPAS PFT DLCO Hb Pre-BD % of Predicted 92 % COMPAS PFT DLCO Hb Pre-BD Z-Score -0.49 COMPAS PFT DLCO Hb Predicted 21.15 mL/min/mmHg COMPAS PFT DLCO UNC ACT PRE-BD 19.54 mL/min/mmHg COMPAS PFT DLCO UNC PRE-BD % of PRED 92 % COMPAS PFT DLCO UNC PRE-BD Z-SCORE -0.49 % COMPAS PFT DLCO UNC Predicted 21.15 mL/min/mmHg COMPAS PFT DLCO/VA Actual Pre-BD 4.65 mL/min/mmHg /L COMPAS PFT DLCO/VA Pre-BD % of Predicted 106 % COMPAS PFT DLCO/VA Pre-BD Z-Score 0.44 COMPAS PFT DLCO/VA Predicted 4.37 mL/min/mmHg /L COMPAS PFT Narrative COMPAS PFT - 07/02/2020 11:42 AM EDT FINDINGS: FEV1, FVC, and FEV1/VC are within normal limits. Diffusion capacity not adjusted for hemoglobin is normal. The SpO2 decreased from 97% to 93% with ambulation of 375 feet on room air. IMPRESSION: Normal spirometry. No diffusion impairment. There is mild desaturation with ambulation. Procedure Note Shazia Nichols MD - 07/02/2020 FINDINGS: FEV1, FVC, and FEV1/VC are within normal limits. Diffusioncapacity not adjusted for hemoglobin is normal. The SpO2 decreased from 97% to 93% with ambulationof 375 feet on room air. IMPRESSION: Normal spirometry. No diffusion impairment. There is milddesaturation with ambulation. Gerardo Richter MD PFT ORDERABLES [facility]AS PFT * CT Angiogram Coronary Arteries (07/02/2020 11:00 [...] prior to speaking to our radiologists. ? Electronically signed by: Silvio Beaulieu MD, [facility] ([phone]), at 07/02/2020 3:05 PM Narrative 07/02/2020 3:05 PM EDT EXAMINATION: CTA [...] and gender is 13%. Reference: Jose RL, Perdomo H, Alka R, et al. ??Distribution ofcoronary [...] on exertion) Other dyspnea and respiratory abnormality Anti-phospholipid antibody syndrome Primary hypercoagulable state S/P AVR Heart valve replaced by other means Abnormal stress test Other nonspecific abnormal cardiovascular system function study FATIMA (dyspnea on exertion) Other dyspnea and respiratory abnormality Abnormal stress test Other nonspecific abnormal cardiovascular system function study FATIMA (dyspnea on exertion) Other dyspnea and respiratory abnormality Anti-phospholipid antibody syndrome Primary hypercoagulable state S/P AVR Heart valve replaced by other means documented in this encounter Care Teams Tour Production Supervisor Relationship Specialty Start Date End Date Mckenna Genao, SUELLEN [address] [address] PCP - General Family Medicine 05/07/17 08/08/21 documented as of this encounter
--- OUTSIDE RECORDS SUMMARY | 2023-11-04 15:15 | XMS_ITS | Encounter Summary ---
[place] [address] Care Team Providers Care Wood Calker Name Role Phone Briana Timmons APRN Primary Care Provider [phone] Reason for Visit * Reason Comments Medication Refill Encounter Details Date Type Department Care Team (Late st Contact Info) Description 06/21/2020 Refill [place] [address] Deniz Root Jr., MD [facility] [place] [place] [address] Social History Tobacco Use Types Packs/Day Years [...] 11/11/2023 3:00 AM EDT [place] [address] documented as of this encounter Visit Diagnoses Not on filedocumented in this encounter Care Teams Wood Calker Relationship Specialty Start Date End Date Briana Timmons, VISUAL EDUCATOR Aniya W[place] [place] [address] PCP - General Family Medicine 08/09/21 documented as of this encounter
--- OUTSIDE RECORDS SUMMARY | 2023-11-04 15:15 | XMS_ITS | Encounter Summary ---
[place] [address] Care Team Providers Care Tumbler Drier Operator Name Role Phone TerranceMckenna hines SUELLEN Primary Care Provider [phone] Encounter Details Date Type Department Care Team (Late st Contact Info) Description 03/21/2020 4:00 PM EST Ancillary Procedure [place] [phone] Social History Tobacco Use Types Packs/Day Years [...] [facility] [place] [address] documented as of this encounter Procedures Procedure Name Priority Date/Time Associated Diagnosis Comments REQUEST FOR 2ND READ CT CHEST Routine 03/21/2020 3:58 PM EST documented in this encounter Results * Request For 2nd Read CT Chest (03/21/2020 3:58 PM EST) Anatomical Region Laterality Modality Chest SO Impressions 03/22/2020 8:24 AM EST Allowing for cardiovascular pulsation artifact in the medial left lung adjacent to aortic arch and left ventricle, no pulmonary arterial filling defects seen. Thank you for letting us participate in the care of this patient. For questions regarding this report, please contact the number below. ? Narrative 03/22/2020 8:24 AM EST EXAMINATION: REQUEST FOR 2ND READ CT CHEST CLINICAL HISTORY: question of subsegmental PE, had two OSH reports, one read subsegmental PE and the other said no PE; What Modality is the exam? CT Scan; Body Part (please add comments as necessary): Chest; Sending Institution [facility]; Date of exam [id number]; I believe a reinterpretation of this exam may alter care of Patient. Yes TECHNIQUE: Axial contiguous sections obtained to the chest via helical acquisition after intravenous administration of Omnipaque 350 at [facility] on 03/18/2020. COMPARISON: No prior chest CT for comparison. Lung bases and upper abdomen compared to CT abdomen 07/20/2017. FINDINGS: Pulmonary parenchyma: Dependent atelectasis dorsally in both lungs from shallow inspiration. Subpleural polygonal opacity by the dome of the right hemidiaphragm, unchanged, compatible with intrapulmonary lymph node. Airways: No endobronchial opacities. Pleura: No pleural effusion. Lymph nodes:No enlarged thoracic lymph nodes seen. Cluster of nonenlarged lymph nodes in the anterior mediastinum on the left. Heart, pericardium, and great vessels: Status post aortic valve replacement. Cardiovascular pulsation artifact in the medial left lung adjacent to the aortic arch and the left ventricle. Allowing for this, no pulmonary arterial filling defects. Other mediastinal structures: No significant findings. Lower neck: No significant findings. Upper abdomen: Bilateral renal cysts, as before. Body wall soft tissues: No significant findings. Skeletal structures: No significant findings. Procedure Note Namrata Jin MD - 03/22/2020 EXAMINATION: REQUEST FOR 2ND READ CT CHEST CLINICAL HISTORY: question of subsegmental PE, had two OSH reports, oneread subsegmental PE and the other said no PE; What Modality is the exam? CTScan; Body Part (please add comments as necessary): Chest; [facility] Date of exam 20[facility]18; I believe a reinterpretation of this exam may altercare of Patient. Yes TECHNIQUE: Axial contiguous sections obtained to the chest via helical acquisition after intravenous administration of Omnipaque 350 [facility] on 03/18/2020. COMPARISON: No prior chest CT for comparison. Lung bases and upperabdomen compared to CT abdomen 07/20/2017. FINDINGS: Pulmonary parenchyma: Dependent atelectasis dorsally in both lungs fromshallow inspiration. Subpleural polygonal opacity by the dome of the right hemidiaphragm, unchanged, compatible with intrapulmonary lymph node. Airways: No endobronchial opacities. Pleura: No pleural effusion. Lymph nodes:No enlarged thoracic lymph nodes seen. Cluster of nonenlargedlymph nodes in the anterior mediastinum on the left. Heart, pericardium, and great vessels: Status post aortic valvereplacement. Cardiovascular pulsation artifact in the medial left lung adjacent to theaortic arch and the left ventricle. Allowing for this, no pulmonary arterialfilling defects. Other mediastinal structures: No significant findings. Lower neck: No significant findings. Upper abdomen: Bilateral renal cysts, as before. Body wall soft tissues: No significant findings. Skeletal structures: No significant findings. IMPRESSION Allowing for cardiovascular pulsation artifact in the medial left lungadjacent to aortic arch and left ventricle, no pulmonary arterial filling defectsseen. Thank you for letting us participate in the care of this patient. Forquestions regarding this report, please contact the number below. Hunter Navarro MD IMG OUTSIDE INT ERPRETATION ORDERABLES documented in this encounter Visit Diagnoses Not on filedocumented in this encounter Care Teams Tumbler Drier Operator Relationship Specialty Start Date End Date Mckenna Genao, TOBACCO WETTER [address] [place] [address] PCP - General Family Medicine 05/07/17 08/08/21 documented as of this encounter
--- OUTSIDE RECORDS SUMMARY | 2023-11-04 15:15 | XMS_ITS | Encounter Summary ---
[place] [address] Care Team Providers Care Cruise Consultant Name Role Phone Mckenna Genao APRN Primary Care Provider [phone] Encounter Details Date Type Department Care Team (Late st Contact Info) Description 05/23/2020 External Results Internal Medicine at [place] [address] [place] [phone] Estelle Clarke Social History Tobacco Use Types [...] 11/11/2023 3:00 AM EDT [place] [address] documented as of this encounter Visit Diagnoses Not on filedocumented in this encounter Care Teams Cruise Consultant Relationship Specialty Start Date End Date Mckenna Genao APRN [address] [place] [address] PCP - General Family Medicine 05/07/17 08/08/21 documented as of this encounter
--- OUTSIDE RECORDS SUMMARY | 2023-11-04 15:15 | XMS_ITS | Encounter Summary ---
[place] [address] Care Team Providers Care Surveying Crew Stake Runner Name Role Phone Mckenna Genao APRN Primary Care Provider [phone] Encounter Details Date Type Department Care Team (Late st Contact Info) Description 05/29/2020 Telephone Internal Medicine at [facility] [address] [place] [address] Natalee Brandt LPN Social History Tobacco Use Types Packs/Day Years [...] encounter Miscellaneous Notes * Telephone Encounter - Natalee Brandt LPN - 05/29/2020 2:29 PM EST Call from [employer] reports she will be going to lab this weekend for INR check . documented in this encounter Plan of Treatment Upcoming Encounters Date Type Department Care Team (Late st Contact Info) Description 11/11/2023 3:00 AM EDT Anti-Coag Telephone Visit [facility] [place] [address] documented as of this encounter Visit Diagnoses Not on filedocumented in this encounter Care Teams Surveying Crew Stake Runner Relationship Specialty Start Date End Date Mckenna Genao, VENETIAN BLIND WORKER [address] [place] [address] PCP - General Family Medicine 05/07/17 08/08/21 documented as of this encounter
--- OUTSIDE RECORDS SUMMARY | 2023-11-04 15:15 | XMS_ITS | Encounter Summary ---
Author Organization [place] [address] Care Team Providers Care Can Filler Name Role Phone BirgitMckenna SUELLEN Primary Care Provider [phone] Encounter Details Date Type Department Care Team (Late st Contact Info) Description 07/06/2020 Anti-Coag Telephone Visit Internal Medicine at [facility] [address] [place] [address] Shasta Delaney [facility] - 07/06/2020 5:03 PM EDT Anticoagulation Therapy Note: Indication: Single subsegmental pulmonary embolism without acute cor pulmonale ,Aortic valve prosthesis present, systemic Lupus erthematosus Duration of treatment: indefinite Range: 2.5-3.5 INR : None Monitored by: [facility]/ Cardio pt Bernie Ramos Drawn By: [facility] PCP Express care phone tamra Black Next INR Due: 07/0907/06/20: INR was done 07/05 but is not resulted. We should have it by 07/09. I instructed Cecilia to continue on the same dose and we will follow up on Thursday. 06/22/20: INR slightly below range. Increase weekly dose 6% and retest INR in 2 weeks. I left a voicemail for Cecilia with the above instructions. Instructed patient to call with any changes in diet, medication or health or if the dosing we have on record differs from the dose they have been taking. Also instructed to call clinic to report any missed doses. 06/21/20: INR pending, instructed Cecilia to take 5mg tonight and we will follow up by tomorrow when INR comes in. 06/15/20: INR back in range. Cecilia confirms she has completed her antibiotics and denies changes in diet, health or medications. She denies any sxs of bruising or bleeding. Cecilia took 5mg last evening. I will continue on 40mg/wk however I will even out her doses. Retest INR in 1 week. ASA 81 mg daily, Plaquenil 200 mg Bid Patient Contact Preference: [phone] (W) Message left on answering machine@9:34am E-Mail/fax Spoke with patient Cale Lew Comment: Warfarin dose :5 mg tablet on hand Increased Decreased x Maintained Comment: Falls Risk Asseessment: Have you had any falls in the last month? NO How many times have you fallen? Conditions at time of fall? Refer to falls clinic for evaluation: Yes___ No___ Bleeding: Epistaxis Black tarry stools Gingival bleeding Abnormal bruising Hematuria Other: Hemoptysis No bleeding / bruising reported Comment: Symptoms of recurring primary event: Chest Pain Dyspnea Palpitations Headache Dizziness Edema Confusion Slurred Speech Weakness Visual changes Tender / Red / Swollen Extremities No symptoms reported Other: Comment: Recent medication changes: Include Prescription/OTC/Herbal Yes No Comment Have you misssed any dose of Coumadin this past week? Yes No Comment Dietary / Alcohol Changes: Yes No Comment Any Illness/Cold Sx/ Diarrhea/ Constipation> 48 hours: Yes No Comment: Any Significant Change Activity Level: Yes No Comment: Upcoming Invasive Procedure Planned: Yes No Comment: Travel Plans: Yes Travel precautions reviewed No Comment: Patient understands and agrees with the plan of care documented in this encounter Plan of Treatment Upcoming Encounters Date Type Department Care Team (Late st Contact Info) Description 11/11/2023 3:00 AM EDT Anti-Coag Telephone Visit [facility] [place] [address] documented as of this encounter Visit Diagnoses Not on filedocumented in this encounter Care Teams Can Filler Relationship Specialty Start Date End Date Mckenna Genao, SUELLEN [address] [place] [address] PCP - General Family Medicine 05/07/17 08/08/21 documented as of this encounter
--- OUTSIDE RECORDS SUMMARY | 2023-11-04 15:15 | XMS_ITS | Encounter Summary ---
Author Organization [place] [address] Care Team Providers Care Contact Lens Inspector Name Role Phone BirgitShebamichael KEN Primary Care Provider [phone] Encounter Details Date Type Department Care Team (Late st Contact Info) Description 06/22/2020 Anti-Coag Telephone Visit Internal Medicine at [facility] [address] [place] [address] Shasta Delaney [facility] Social History Tobacco Use Types Packs/Day Years [...] this encounter Progress Notes * Shasta Delaney [facility] - 06/22/2020 9:30 AM EDT Anticoagulation Therapy Note: Indication: Single subsegmental pulmonary embolism without acute cor pulmonale ,Aortic valve prosthesis present, systemic Lupus erthematosus Duration of treatment: indefinite Range: 2.5-3.5 INR : 2.4 Monitored by: [facility]/ Cardio pt Bernie C Drawn By: [facility] PCP Express care phone tamra Blakc Next INR Due: 07/0506/22/20: INR slightly below range. Increase weekly dose [...] her doses. Retest INR in 1 week. 06/13/20: Cecilia will test INR tomorrow 06/1406/08/20: Cecilia [...] reports getting a call last evening from electronics assembler and tester provider at PCP's office and was instructed to hold her dose. I still decreased her weekly dose as aylaorts being under a slot of stress and not eating much. Denies sxs of bleeding but does report some bruises on hips/legs. Understands when to seek medical attention. Cecilia wrote down her new dose instructions and read it back correctly. Patient may still be in [facility] next week and will test INR at [facility]. 05/24/20: INR from yesterday is supratherapeutic. Hold [...] from cardiology , was in patient at [facility] from 03/18-03/22. Dx Acute PE , pending [...] Plaquenil 200 mg Bid Patient Contact Preference: [phone] (W) X06/22 Message left on answering machine@9:34am E-Mail/fax Spoke with patient Cale Comment: Warfarin dose [...] Plans: Yes Travel precautions reviewed No Comment: Left a voicemail with the plan of care documented in this encounter Plan of Treatment Upcoming Encounters Date Type Department Care Team ([facility] Contact Info) Description 11/11/2023 3:00 AM EDT [place] [address] documented as of this encounter Visit Diagnoses Not on filedocumented in this encounter Care Teams Contact Lens Inspector Relationship Specialty Start Date End Date Mckenna Genao, GARDEN MACHINERY MECHANIC [address] [place] [address] PCP - General Family Medicine 05/07/17 08/08/21 documented as of this encounter
--- OUTSIDE RECORDS SUMMARY | 2023-11-04 15:15 | XMS_ITS | Encounter Summary ---
Author [place] [address] Care Team Providers Care Pre Wave Assembler Name Role Phone KareenMckenna marlow RN [facility] Primary Care Provider [phone] Encounter Details Date Type Department Care Team (Late st Contact Info) Description 06/22/2020 External Results Internal Medicine at [address] [phone] Estelle Clarke Social History Tobacco Use Types [...] Anti-Coag Telephone Visit [facility] [place] [address] documented as of this encounter Procedures Procedure Name Priority Date/Time Associated Diagnosis Comments EXTERNAL LAB HEMATOLOGY/COAG RESULTS PANEL Routine 06/21/2020 documented in this encounter Results * (ABNORMAL) Hematology / Coag External Results (06/21/2020) INR 2.40(EXTER NAL/ABN) EXTERNAL LAB Comment:[facility] 06/21/2020 Historical Provider HEMATOLOGY ORDERA BLES EXTERNAL LAB documented in this encounter Visit Diagnoses Not on filedocumented in this encounter Care Teams Pre Wave Assembler Relationship Specialty Start Date End Date Mckenna Genao, RN [facility] [address] [place] [address] PCP - General Family Medicine 05/07/17 08/08/21 documented as of this encounter
--- OUTSIDE RECORDS SUMMARY | 2023-11-04 15:15 | XMS_ITS | Encounter Summary ---
[place] [address] Care Team Providers Care Animal Care Assistant Name Role Phone Mckenna Genao APRN Primary Care Provider [phone] Encounter Details Date Type Department Care Team (Latest Contact Info) Description 07/02/2020 11:06 AM EDT - 07/02/2020 11:59 PM EDT Hospital En[place] [phone] FATIMA (dyspnea on exertion); Anti-phospholipid antibody syndrome; S/P AVR Discharge Disposition: Home Social History Tobacco Use [...] Visit [facility] Centralized [place] [address] documented as of this encounter Procedures Procedure Name Priority Date/Time Associated Diagnosis Comments COMMON PULMONARY FUNCTION TEST Routine 07/02/2020 11:42 AM EDT FATIMA (dyspnea on exertion) Anti-phospholipid antibody syndrome S/P AVR documented in this encounter Results * Pulmonary Function Testing [...] / FVC LLN 70 % COMPAS PFT [id number] Actual Pre-BD 2.43 L/s COMPAS PFT [id number] Pre-BD % of Predicted 87 % COMPAS PFT [id number] Predicted 2.80 L/s COMPAS PFT QBN55-62 Pre-BD Z-Score -0.46 COMPAS PFT DLCO Hb [...] Gerardo Richter MD PFT ORDERABLES COMPAS PFT documented in this encounter Visit Diagnoses Diagnosis FATIMA (dyspnea on exertion) Other dyspnea and respiratory abnormality Anti-phospholipid antibody syndrome Primary hypercoagulable state S/P AVR Heart valve replaced by other means documented in this encounter Care Teams Animal Care Assistant Relationship Specialty Start Date End Date Mckenna Genao, SUELLEN [address] [place] [address] PCP - General Family Medicine 05/07/17 08/08/21 documented as of this encounter
--- OUTSIDE RECORDS SUMMARY | 2023-11-04 15:15 | XMS_ITS | Encounter Summary ---
[place] [address] Care Team Providers Care Contact And Service Clerks Supervisor Name Role Phone KareenMckenna marlow PIPE CLEANING MACHINE OPERATOR Primary Care Provider [phone] Encounter Details Date Type Department Care Team (Late st Contact Info) Description 07/27/2020 External Results Internal Medicine at [place] [address] [place] [phone] Estelle Clarke Social History Tobacco Use Types [...] Telephone Visit [facility] [place] [address] documented as of this encounter Procedures Procedure Name Priority Date/Time Associated Diagnosis Comments EXTERNAL LAB HEMATOLOGY/COAG RESULTS PANEL Routine 07/27/2020 documented in this encounter Results * (ABNORMAL) Hematology / Coag External Results (07/27/2020) POC INR 1.5(CARPENTER ASSISTANT AL/ABN) 0.9 - 1.1 EXTERNAL LAB Comment:[facility] 07/27/2020 Historical Provider HEMATOLOGY ORDERA BLES EXTERNAL LAB documented in this encounter Visit Diagnoses Not on filedocumented in this encounter Care Teams Contact And Service Clerks Supervisor Relationship Specialty Start Date End Date Mckenna Genao, PIPE CLEANING MACHINE OPERATOR [address] [place] [address] PCP - General Family Medicine 05/07/17 08/08/21 documented as of this encounter
--- OUTSIDE RECORDS SUMMARY | 2023-11-04 15:15 | XMS_ITS | Encounter Summary ---
[place] [address] Care Team Providers Care Financial Planner Name Role Phone Mckenna Genao SENIOR SOLUTIONS ARCHITECT Primary Care Provider [phone] Encounter Details Date Type Department Care Team (Late st Contact Info) Description 06/20/2020 Orders Only Cardiology at [address] [phone] Melody Ortiz, RN Aortic valve prosthesis present Social History Tobacco [...] Visit [facility] [place] [address] documented as of this encounter Results * EKG 12 Lead (07/02/2020 3:34 PM EDT) Ventricular rate 81 BPM MUSE SYSTEM Atrial Rate 81 BPM MUSE SYSTEM P-R Interval 172 ms MUSE SYSTEM QRS Duration 114 ms MUSE SYSTEM Q-T Interval 422 ms MUSE SYSTEM QTC Calculated (Bezet) 490 ms MUSE SYSTEM Calculated P [place] 56 degrees MUSE SYSTEM Calculated R [place] -28 degrees MUSE SYSTEM Calculated T [place] 49 degrees MUSE SYSTEM INTERPRETATION Non-specific intra-ventricul ar conduction delay Possible Left atrial enlargement Cannot rule out Septal infarct , age undetermined Abnormal ECG When compared with ECG of 30-JUN-2017 14:55, QRS axis Shifted left Criteria for Inferior infarct are no longer Present T wave inversion no longer evident in Inferior leads Confirmed by MD Mindy, Naresh Liang ([id number]) on 07/03/2020 12:58:42 PM MUSE SYSTEM 07/02/2020 3:34 PM EDT 07/03/2020 12:58 PM EDT Gerardo Richter MD ECG ORDERABLES MUSE SYSTEM documented in this encounter Visit Diagnoses Diagnosis Aortic valve prosthesis present Heart valve replaced by other means documented in this encounter Care Teams Financial Planner Relationship Specialty Start Date End Date Mckenna Genao, SENIOR SOLUTIONS ARCHITECT [address] [place] [address] PCP - General Family Medicine 05/07/17 08/08/21 documented as of this encounter
--- OUTSIDE RECORDS SUMMARY | 2023-11-04 15:15 | XMS_ITS | Encounter Summary ---
[place] [address] Care Team Providers Care Revenue Cycle Specialist Name Role Phone Birgit Mckenna KEN Primary Care Provider [phone] Encounter Details Date Type Department Care Team (Latest Contact Info) Description 07/02/2020 9:30 AM EDT Laboratory Appointment Lab [address] [place] [address] Chronic septic pulmonary embolism with acute cor [...] Visit [facility] Centralized [place] [address] documented as of this encounter Procedures Procedure Name Priority Date/Time Associated Diagnosis Comments HC CREATININE Routine 07/02/2020 9:25 AM EDT 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 73 m?? [facility] Comment: This patient? s estimated glomerular filtration rate (eGFR) is between 87 mL/min/1.73 m2 (patients with less muscle mass) and 101 mL/min/1.73 m2 (patients with more muscle mass) as determined by the CKD-EPI equation. Assessment of eGFR is not appropriate when creatinine concentrations are rapidly changing. For clinical decisions where creatinine clearance will affect therapy, a 24-hour urine creatinine clearance may be advised. Assignment of CKD stage 1 - 5 for patients with an eGFR near the transition point between stages may be based on clinical assessment of muscle mass and symptoms in addition to eGFR. 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
--- OUTSIDE RECORDS SUMMARY | 2023-11-04 15:15 | XMS_ITS | Encounter Summary ---
[place] [address] Care Team Providers Care Lining Layer Name Role Phone KareenMckenna marlow JEWEL CUPPING MACHINE OPERATOR Primary Care Provider [phone] Encounter Details Date Type Department Care Team (Late st Contact Info) Description 05/15/2020 External Results Internal Medicine at [facility] [address] [place] [id number] Estelle Clarke Social History Tobacco Use Types [...] Visit [facility] [place] [address] documented as of this encounter Procedures Procedure Name Priority Date/Time Associated Diagnosis Comments EXTERNAL LAB HEMATOLOGY/COAG RESULTS PANEL Routine 05/14/2020 documented in this encounter Results * (ABNORMAL) Hematology / Coag External Results (05/14/2020) INR 1.90(EXTER NAL/ABN) EXTERNAL LAB Comment:[facility] [place] Reg Lab 05/14/2020 Historical Provider HEMATOLOGY ORDERArturo BLES EXTERNAL LAB documented in this encounter Visit Diagnoses Not on filedocumented in this encounter Care Teams Lining Layer Relationship Specialty Start Date End Date Mckenna Genao, SUELLEN [address] [place] [address] PCP - General Family Medicine 05/07/17 08/08/21 documented as of this encounter
--- OUTSIDE RECORDS SUMMARY | 2023-11-04 15:15 | XMS_ITS | Encounter Summary ---
[place] [address] Care Team Providers Care Etl Architect Name Role Phone SandraMckenna rodriguez SUELLEN Primary Care Provider [phone] Encounter Details Date Type Department Care Team (Late st Contact Info) Description 04/26/2020 Orders Only Cardiology at [address] [address] Gerardo Richter MD [facility] [place] [address] Hypertension, unspecified type; Aortic valve prosthesis present; Hyperlipidemia, unspecified hyperlipidemia type Social History Tobacco Use Types Packs/Day [...] Anti-Coag Telephone Visit [facility] [place] [address] documented as of this encounter Results * Creatinine (06/07/2020 2:20 PM EST) Creatinine 0.96 0.70 - 1.20 mg/dL [facility] Estimated GFR 70 >=60 mL/min/1. 73 m?? [facility] Comment: This patient? s estimated glomerular filtration rate (eGFR) is between 70 mL/min/1.73 m2 (patients with less muscle mass) and 81 mL/min/1.73 m2 (patients with more muscle mass) as determined by the CKD-EPI equation. Assessment of eGFR is not appropriate when creatinine concentrations are rapidly changing. For clinical decisions where creatinine clearance will affect therapy, a 24-hour urine creatinine clearance may be advised. Assignment of CKD stage 1 ? 5 for patients with an eGFR near the transition point between stages may be based on clinical assessment of muscle mass and symptoms in addition to eGFR. Blood specimen (specimen) 06/07/2020 2:20 PM EST 06/07/2020 9:10 PM EST Narrative Resulting Agency Comment Spec In Lab Gerardo Richter MD CHEMISTRY ORDERABLES [facility] [place] [address] documented in this encounter Visit Diagnoses Diagnosis Hypertension, unspecified type Aortic valve prosthesis present Heart valve replaced by other means Hyperlipidemia, unspecified hyperlipidemia type documented in this encounter Care Teams Etl Architect Relationship Specialty Start Date End Date Mckenna Genao, SUELLEN [address] [address] PCP - General Family Medicine 05/07/17 08/08/21 documented as of this encounter
--- OUTSIDE RECORDS SUMMARY | 2023-11-04 15:15 | XMS_ITS | Encounter Summary ---
[place] [address] Care Team Providers Care Software Configuration Manager Name Role Phone KareenMckenna marlow CABLE MAINTAINER Primary Care Provider [phone] Encounter Details Date Type Department Care Team (Late st Contact Info) Description 05/24/2020 External Results Internal Medicine at [address] [phone] Estelle Clarke Social History Tobacco Use Types [...] Telephone Visit [facility] [place] [address] documented as of this encounter Procedures Procedure Name Priority Date/Time Associated Diagnosis Comments EXTERNAL LAB HEMATOLOGY/COAG RESULTS PANEL Routine 05/23/2020 documented in this encounter Results * (ABNORMAL) Hematology / Coag External Results (05/23/2020) INR 4.90(EXTER NAL/ABN) EXTERNAL LAB Comment:[facility] [place] [facility] 05/23/2020 Historical Provider HEMATOLOGY FADUMO BLES EXTERNAL LAB documented in this encounter Visit Diagnoses Not on filedocumented in this encounter Care Teams Software Configuration Manager Relationship Specialty Start Date End Date Mckenna Genao, SUELLEN [address] [place] [address] PCP - General Family Medicine 05/07/17 08/08/21 documented as of this encounter
--- OUTSIDE RECORDS SUMMARY | 2023-11-04 15:15 | XMS_ITS | Encounter Summary ---
Author Organization [facility] [place] [address] Care Team Providers Care Product Promoter Sales Person Name Role Phone Mckenna Genao APRN Primary Care Provider [phone] Encounter Details Date Type Department Care Team (Late st Contact Info) Description 03/29/2020 Anti-Coag Telephone Visit Internal Medicine at [facility] [address] [place] [address] Natalee Brandt LPN Social History [...] Progress Notes * Natalee Brandt LPN - 03/29/2020 4:14 PM EST Anticoagulation Therapy Note: Indication: Single subsegmental pulmonary embolism without acute cor pulmonale ,Aortic valve prosthesis present, systemic Lupus erthematosus Duration of treatment: indefinite Range: 2.5-3.5 INR : 2.3 Monitored by: [facility]/ Cardio pt Bernie Ramos Drawn By: [facility] PCP Express care phone tamra Black Next INR Due: 1 week 04/05 03/29 New patient referral today from cardiology , was in patient at [facility] [place]18[place]. Dx Acute PE , pending [...] Plaquenil 200 mg Bid Patient Contact Preference: [phone] (W) Message left on answering machine E-Mail/fax x Spoke with patient Cale Comment: Warfarin dose : 2.5 mg tablet on hand x Increased Decreased [...] Symptoms of recurring primary event: Chest Pain x Dyspnea Palpitations Headache Dizziness Edema Confusion Slurred Speech Weakness Visual changes Tender / Red / Swollen Extremities No symptoms reported Other: Comment: Recent medication changes: Include Prescription/OTC/Herbal x Yes No Comment see above Have you misssed any dose of Coumadin this past week? Yes x No Comment Dietary / Alcohol Changes: Yes [...] Telephone Visit [facility] [place] [address] documented as of this encounter Visit Diagnoses Not on filedocumented in this encounter Care Teams Product Promoter Sales Person Relationship Specialty Start Date End Date Mckenna Genao APRN [address] [place] [address] PCP - General Family Medicine 05/07/17 08/08/21 documented as of this encounter
--- OUTSIDE RECORDS SUMMARY | 2023-11-04 15:15 | XMS_ITS | Encounter Summary ---
Author Organization [facility] [place] [address] Care Team Providers Care Delivery Director Name Role Phone Birgit Mckenna KEN Primary Care Provider [phone] Encounter Details Date Type Department Care Team (Latest Contact Info) Description 07/27/2020 4:00 AM EDT Anti-Coag Telephone Visit Internal Medicine at [facility] [address] [place] [address] Shasta Delaney, [facility] Antiphospholipid antibody syndrome; Systemic lupus erythematosus, unspecified SLE type, unspecified organ involvement status; Aortic valve prosthesis present; 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 Anticoagulation Therapy Telephone Note: Anticoagulation Summary As of 07/27/2020 INR goal: 2.5-3.5 TTR: 33.4 % (3.3 mo) INR used for dosin.5 (07/27/2020) Warfarin maintenance plan: 5 mg (5 mg x 1) every e, Yaritza; 7.5 mg (5 mg x 1.5) all other days Weekly warfarin total: 47.5 mg Plan last modified: Shasta Delaney [facility] (07/27/2020) Next INR check: 07/31/2020 Target end date: Indefinite Indications Antiphospholipid antibody----- use antiXa level to dose heparin. 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] Cerebral infarction---at age 21 [I63.9] Pulmonary embolism [I26.99] Systemic lupus erythematosus [M32.9] Anticoagulation Episode Summary INR check location: Outside Lab Preferred lab: EXTERNAL LAB Send INR reminders to: [facility] Comments: [facility] -PCP Anticoagulation Care Providers Provider Role Specialty Phone number Hunter Navarro MD Referring Cardiology [phone] Gerardo Richter MD Responsible Cardiology [phone] Patient Assessment Service Type: INR Test Result INR Result: Out of Range Clinical Outcomes Negatives: Major bleeding event, Thromboembolic event, Anticoagulation-related hospital admission, Anticoagulation-related ED visit Patient Findings Positives: Missed doses (Decreased warfarin dose this week because she forgot her dose calendar while traveling), Bruising (on back of her leg) Negatives: Upcoming Travel, Planning or Currently , Recent Fall, Signs/symptoms of thrombosis, Signs/symptoms of bleeding, Laboratory test error suspected, Change in health, Change in alcoholuse, Change in activity, Upcoming invasive procedure, Emergency department visit, Upcoming dental procedure, Extra doses, Change in medications, Change in diet/appetite, Hospital admission, Other complaints Comments: Spoke to Cecilia, she reports traveling to her daughters house, forgot her dose calendar and only took 5mg daily this week. Reports a bruise on the back of her leg but denies swelling, redness, warmth or significant pain. Reviewed the sxs of a blood clot and when to seek medical attention. Warfarin Therapy Instructions July 2020 Details Sun Thu Fri Sat 1 2 3 4 5 6 7 8 9 10 11 12 13 14 15 16 17 18 19 20 21 22 23 7.5 mg See details 24 7.5 mg 25 7.5 mg 26 7.5 mg 27 5 mg 28 29 30 Date Details 07/27 This INR check Date of next INR: 07/31/2020 How to take your warfarin dose To take: 5 mg Take 1 of the 5 mg tablets. To take: 7.5 mg Take 1.5 of the 5 mg tablets. Description 07/27/20: INR subtherapeutic. Increased weekly dose 12% over the next 4 days and requested INR in 4 days. 07/10/20: INR in range. Spoke to Cecilia and instructed to continue on the same dose of warfarin and retest INR again in 4 weeks. Confirmed there have been no changes in diet, health or medications. 07/06/20: INR was done 07/05 but is not [...] call clinic to report any missed doses. ASA 81 mg daily, Plaquenil 200 mg Bid Patient Contact Preference: [phone] (W) Message left on answering machine@9:34am E-Mail/fax Spoke with patient Cale Lew Comment: documented in this encounter Plan of Treatment Upcoming Encounters Date Type Department Care Team (Late st Contact Info) Description 11/11/2023 3:00 AM EDT Anti-Coag Telephone Visit [facility] Centralized [place] [address] documented as of this encounter Visit Diagnoses Diagnosis Antiphospholipid antibody syndrome Primary hypercoagulable state Systemic lupus erythematosus, unspecified SLE type, unspecified organ involvement status Aortic valve prosthesis present Heart valve replaced by other means 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
--- OUTSIDE RECORDS SUMMARY | 2023-11-04 15:15 | XMS_ITS | Encounter Summary ---
[place] [address] Care Team Providers Care Disc Recordist Name Role Phone TerranceMckenna hines SUELLEN Primary Care Provider [phone] Encounter Details Date Type Department Care Team (Late st Contact Info) Description 05/30/2020 Orders Only Internal Medicine at [facility] [address] [place] [address] Rob Vogel, RN Aortic valve prosthesis present Social History [...] [facility] [place] [address] documented as of this encounter Visit Diagnoses Diagnosis Aortic valve prosthesis present Heart valve replaced by other means documented in this encounter Care Teams Disc Recordist Relationship Specialty Start Date End Date Mckenna Genao, CARE COORDINATION MANAGER [address] [place] [address] PCP - General Family Medicine 05/07/17 08/08/21 documented as of this encounter
--- OUTSIDE RECORDS SUMMARY | 2023-11-04 15:15 | XMS_ITS | Encounter Summary ---
Author Organization [facility] [place] [address] Care Team Providers Care Perinatal Tech Name Role Phone Birgit Mckenna KEN Primary Care Provider [phone] Encounter Details Date Type Department Care Team (Late st Contact Info) Description 04/05/2020 Anti-Coag Telephone Visit Internal Medicine at [facility] [address] [place] [address] Shasta Delaney [facility] Social History Tobacco Use Types Packs/Day Years [...] * Shasta Delaney [facility] - 04/05/2020 5:34 PM EST Anticoagulation Therapy Note: Indication: Single subsegmental pulmonary embolism without acute cor pulmonale ,Aortic valve prosthesis present, systemic Lupus erthematosus Duration of treatment: indefinite Range: 2.5-3.5 INR : 2.6 [facility] Bernie Ramos Drawn By: [facility] PCP Express care phone tamra Black Next INR Due: 1 week 04/1204/05/20: INR in range. Spoke to Cecilia and instructed to continue on the same dose of warfarin and retest INR again in 1 weeks. She wrote down the doses day by day. No changes in diet, health or medications reported 03/29 New patient referral today from cardiology , was in patient at [facility] from 03/18-03/22. Dx Acute PE , pending [...] 1997 last menstrual cycle Dose patient to week. Anticoagulation Patient Teaching Patient education materials reviewed [...] Plaquenil 200 mg Bid Patient Contact Preference: [phone] (W) Message left on answering machine E-Mail/fax x Spoke with patient Cale Comment: Warfarin dose : 2.5 mg tablet on hand Increased Decreased x [...] [facility] [place] [address] documented as of this encounter Visit Diagnoses Not on filedocumented in this encounter Care Teams Perinatal Tech Relationship Specialty Start Date End Date Mckenna Genao, APPLICATION TESTER [address] [place] [address] PCP - General Family Medicine 05/07/17 08/08/21 documented as of this encounter
--- OUTSIDE RECORDS SUMMARY | 2023-11-04 15:15 | XMS_ITS | Encounter Summary ---
Author Organization [facility] [place] [address] Care Team Providers Care Fork Operator Name Role Phone BirgitMckenna SUELLEN Primary Care Provider [phone] Encounter Details Date Type Department Care Team (Late st Contact Info) Description 03/24/2020 Telephone Cardiology at [address] [phone] Khanh Garcia MD [facility] [place] [address] Social History Tobacco Use Types Packs/Day Years [...] encounter Miscellaneous Notes * Telephone Encounter - Khanh Garcia MD - 03/24/2020 4:41 PM EST Ms. Dumont called to ask what her INR goal was. She is following up with [facility] on [facility] for INR management and her PCP was not clear what the goal should be. I told her it is 2.5 to 3.5. Her INR was 3.9 yesterday. She will call her anticoag clinic and report her INR goal. documented in this encounter Plan of Treatment Upcoming Encounters Date Type Department Care Team (Late st Contact Info) Description 11/11/2023 3:00 AM EDT Anti-Coag Telephone Visit [facility] Centralized [place] [address] documented as of this encounter Visit Diagnoses Not on filedocumented in this encounter Care Teams Fork Operator Relationship Specialty Start Date End Date Mckenna Genao APRN [address] [place] [address] PCP - General Family Medicine 05/07/17 08/08/21 documented as of this encounter
--- OUTSIDE RECORDS SUMMARY | 2023-11-04 15:15 | XMS_ITS | Encounter Summary ---
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 [place] [address] documented as of this encounter Results * Creatinine (07/02/2020 9:25 AM EDT) Creatinine 0.80 0.70 - 1.20 mg/dL [facility] Estimated GFR 87 >=60 mL/min/1. 73 m?? [facility] Comment: This patient? 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
--- OUTSIDE RECORDS SUMMARY | 2023-11-04 15:15 | XMS_ITS | Encounter Summary ---
[place] [address] Care Team Providers Care Well Cleaner Name Role Phone KareenMckenna marlow ROLLER MACHINE OPERATOR Primary Care Provider [phone] Encounter Details Date Type Department Care Team (Late st Contact Info) Description 04/12/2020 External Results Internal Medicine at [facility] [address] [place] [phone] Estelle Clarke Social History Tobacco Use Types [...] Telephone Visit [facility] [place] [address] documented as of this encounter Procedures Procedure Name Priority Date/Time Associated Diagnosis Comments EXTERNAL LAB HEMATOLOGY/COAG RESULTS PANEL Routine 04/12/2020 documented in this encounter Results * Hematology / Coag External Results (04/12/2020) POC INR 2.6 0.9 - 1.1 EXTERNAL LAB Comment:[facility] poc 04/12/2020 Historical Provider HEMATOLOGY ORDERArturo BLES EXTERNAL LAB documented in this encounter Visit Diagnoses Not on filedocumented in this encounter Care Teams Well Cleaner Relationship Specialty Start Date End Date Mckenna Genao, ROLLER MACHINE OPERATOR [address] [place] [address] PCP - General Family Medicine 05/07/17 08/08/21 documented as of this encounter
--- OUTSIDE RECORDS SUMMARY | 2023-11-04 15:15 | XMS_ITS | Encounter Summary ---
Author Organization [facility] [place] [address] Care Team Providers Care School Manager Name Role Phone Birgit Mckenna KEN Primary Care Provider [phone] Encounter Details Date Type Department Care Team (Late st Contact Info) Description 05/30/2020 Anti-Coag Telephone Visit Internal Medicine at [facility] [address] [place] [address] Shasta Delaney [facility] Social History Tobacco Use Types Packs/Day Years [...] Delaney [facility] - 05/30/2020 12:10 PM EST Anticoagulation Therapy Note: Indication: Single subsegmental pulmonary embolism without acute cor pulmonale ,Aortic valve prosthesis present, systemic Lupus erthematosus Duration of treatment: indefinite Range: 2.5-3.5 INR : 4.3 Monitored by: [facility]/ Cardio pt Bernie Ramos Drawn By: [facility] PCP Express care phone tamra Black Next INR Due: 1 week 06/0605/30/20: INR remains elevated despite a dose hold and 5% reduction last week. Will further decreaseweekly dose 11% and retest INR in 1 week. Cecilia reports getting a call last evening from transportation planning engineer provider at PCP's office and was instructed to hold her dose. I still decreased her weekly dose as shereports being under a slot of stress and not eating much. Denies sxs of bleeding but does report some bruises on hips/legs. Understands when to seek medical attention. Cecilia wrote down her new dose instructions and read it back correctly. Patient may still be in [facility] next week and will test INR at [facility]. 05/24/20: INR from yesterday is supratherapeutic. Hold [...] from cardiology , was in patient at [facility] from 03/18-03/22. Dx Acute PE , pending [...] Plaquenil 200 mg Bid Patient Contact Preference: [phone] (Y) Message left on answering machine E-Mail/fax x Spoke with patient Cale Comment: Warfarin dose :5 mg tablet on hand Increased x Decreased Maintained Comment: Falls Risk Asseessment: Have you had any falls in the last month? NO How many times have you fallen? Conditions at time of fall? Refer to falls clinic for evaluation: Yes___ No___ Bleeding: Epistaxis Black tarry stools Gingival bleeding Abnormal bruising Hematuria Other: Hemoptysis No bleeding / bruising reported Comment: see note 05/30 Symptoms of recurring primary event: Chest Pain [...] Anti-Coag Telephone Visit [facility] [place] [address] documented as of this encounter Visit Diagnoses Not on filedocumented in this encounter Care Teams School Manager Relationship Specialty Start Date End Date Mckenna Genao, BRANCH LEAD [address] [place] [address] PCP - General Family Medicine 05/07/17 08/08/21 documented as of this encounter
--- OUTSIDE RECORDS SUMMARY | 2023-11-04 15:15 | XMS_ITS | Encounter Summary ---
[place] [address] Care Team Providers Care Acquisitions Logistics Analyst Name Role Phone Birgit Mckenna KEN Primary Care Provider [phone] Encounter Details Date Type Department Care Team (Late st Contact Info) Description 06/10/2020 Telephone Urgent Care at [place] [address] [place] [address] Kuldeep Small MD [address] [place] [address] Social History Tobacco Use Types Packs/Day Years [...] encounter Miscellaneous Notes * Telephone Encounter - Lexi Sheth RN - 06/10/2020 8:45 AM EST Patient advised of result and information per Dr Small. Reports improvement in symptoms. * Telephone Encounter - Kuldeep Small MD - 06/10/2020 8:04 AM EST Call patient, urine cx with contamination. If feeling better complete abx. If persisting symptoms would recommend repeat urine cx. documented in this encounter Plan of Treatment Upcoming Encounters Date Type Department Care Team (Late st Contact Info) Description 11/11/2023 3:00 AM EDT [place] [address] documented as of this encounter Visit Diagnoses Not on filedocumented in this encounter Care Teams Acquisitions Logistics Analyst Relationship Specialty Start Date End Date Mckenna Genao, SUELLEN [address] [place] [address] PCP - General Family Medicine 05/07/17 08/08/21 documented as of this encounter
--- OUTSIDE RECORDS SUMMARY | 2023-11-04 15:15 | XMS_ITS | Encounter Summary ---
[place] [address] Care Team Providers Care Crop Puller Name Role Phone Mckenna Genao APRN Primary Care Provider [phone] Reason for Visit * Reason Comments Lower Urinary Tract Symptoms Change in t he color of her urine x 3 days. Anticoag advised her to come here. Encounter Details Date Type Department Care Team (Late st Contact Info) Description 06/07/2020 5:20 PM EST Office Visit Urgent Care at [address] [address] Kuldeep Small MD [address] [place] [id number] Acute cystitis without hematuria (Primary Dx) Social History Tobacco Use Types [...] Sign Reading Time Taken Comments Blood Pressure 109/74 06/07/2020 5:32 PM EST Pulse 57 06/07/2020 5:32 PM EST Temperature 36.5 ??C (97.7 ??F) 06/07/2020 5:32 PM ES T Respiratory Rate - - Oxygen Saturation 97% 06/07/2020 5:32 PM EST room air Inhaled Oxygen Concentration - - Weight 84.8 kg (187 lb) 06/07/2020 5:32 PM EST Height - - Body Mass Index 33.13 04/26/2020 11:33 AM EST documented in this encounter Progress Notes * Kuldeep Small MD - 06/07/2020 5:20 PM EST HPI/ROS: Cecilia Dumont is a 50 y.o. female who presents today stating that for 2 to 3 days she has been having a change in color of her urine. She denies grossly bloody urine. She also states that she has had some mild dysuric symptoms and at times some urinary frequency. Patient also states thatshe has had some bruising however she only complains of a small bruise on her right thigh at her belt line. She states she did have a little blood after brushing her teeth from her gums but no heavy bleeding. She denies nosebleeds, melena or hematochezia, gross hematuria, and she is not getting significant bruising on other parts of her body. She did have her Coumadin level checked today and her INR was 1.4. Patient denies fevers or chills, nausea vomiting, abdominal pain, vaginal bleeding or discharge. PAST MEDICAL HISTORY/ CURRENT PROBLEM : Patient Active Problem List Diagnosis Code ??? Depression and anxiety F32.9 ??? Dilated cardiomyopathy--- noted in 2003, improved I42.0 ??? Hypertension I10 ??? Systemic lupus erythematosus M32.9 ??? Antiphospholipid antibody----- use antiXa level to dose heparin. D68.61 ??? Cerebral infarction---at age 21 I63.9 ??? JAN on CPAP G47.33, Z99.89 ??? Migraine G43.909 ??? Hyperlipemia E78.5 ??? Chest pain-- normal cors by cath in 2004 and 2011 R07.9 ??? Osteoporosis M81.0 ??? H/O total knee replacement Z96.659 ??? [address] Alegre with severe AI, SLE, and APLS admitted for conversion to heparin prior to AVR. Course c/b gross hematuria, CHARLES, cp, anxiety. Q23.1 ??? Gross hematuria--- while on heparin R31.0 ??? Pulmonary embolism I26.99 ??? Aortic valve prosthesis present Z95.2 SOCIAL HISTORY: Social History Tobacco Use Smoking Status Former Smoker ??? Quit date: 10/22/2007 ??? Years since quittin.6 Smokeless Tobacco Never Used ALLERGY: Allergies Allergen Reactions ??? Tramadol Upset stomach FAMILY HISTORY: Family History Problem Relation Age of Onset ??? Coronary Artery Disease Father Biological father MEDICATIONS: Current Outpatient Medications on File Prior to Visit Medication Sig Dispense Refill ??? warfarin (Coumadin) 5 mg Tablet Take 1 tablet by mouth daily. 10 tablet 0 ??? warfarin (Coumadin) 5 mg Tablet Variable [...] minerals tablet 1 Tablet(s), PO, Once daily No current facility-administered medications on file prior to visit. PHYSICAL EXAM Patient Vitals for the past 24 hrs: Temp Pulse BP SpO2 06/07/20 1732 36.5 ??C (97.7 ??F) 57 109/74 97 % Patient is alert. She appears well. She does not exhibit any significant peripheral bruising or facial bruising. Abdomen is soft without suprapubic distention. Urine dip is positive for 2+ leukocytes. There is no reported blood. IMPRESSION: 1. Acute cystitis without hematuria POCT urine dipstick cephALEXin (Keflex) 500 mg Capsule Urine culture Clean Catch Urine I suspect patient has an acute cystitis. I will start her on Keflex and send urine for culture. Further plans pending results of culture results. Patient does not present with alarming signs or symptoms of excessive bruising. Follow- up as needed. documented in this encounter Plan of Treatment Upcoming Encounters Date Type Department Care Team (Late st Contact Info) Description 11/11/2023 3:00 AM EDT Anti-[place] [address] documented as of this encounter Procedures Procedure Name Priority Date/Time Associated Diagnosis Comments HC URINE CULTURE Routine 06/07/2020 6:43 PM EST Acute cystitis without hematuria POCT URINE DIPSTICK Routine 06/07/2020 5 :38 PM EST Acute cystitis without hematuria documented in this encounter Results * (ABNORMAL) Urine culture Clean Catch Urine (06/07/2020 6:43 PM EST) Urine Culture 10,000-49,000 cfu/ml mixed mucosal paramjit Note: Culture shows multiple bacterial species suggesting mucosal contamination. If symptoms continue to indicate urinary tract infection, submit a new specimen. (A) [facility] Urine specimen obtained by clean catch procedure (specimen) 06/07/2020 6:43 PM EST 06/08/2020 7:35 AM EST Narrative Resulting Agency Comment Spec In Lab Kuldeep Small MD MICROBIOLOGY - [facility] ORDERABLES [facility] [place] [address] * POCT urine dipstick (06/07/2020 5:38 PM EST) POC Sp [place] 1.030 1.002 - 1.030 POC pH, UA 5 5.0 - 8.5 POC Leuk, UA ++ Negative - Negative POC Nitrite, UA negative Negative - Negative POC Protein, UA 30 Negative - Negative mg/dL POC Glucose, UA normal Normal - Normal mg/dL POC Ketone, UA negative Negative - Negative POC Urobil, UA normal 0.2 - 1.0 mg/dL POC Bili, UA negative Negative - Negative POC Blood, UA negative Negative - Negative mallory/uL 06/07/2020 5:38 PM EST Kuldeep Small MD POINT OF CARE GERSON T ORDERABLES documented in this encounter Visit Diagnoses Diagnosis Acute cystitis without hematuria- Primary Acute cystitis documented in this encounter Care Teams Crop Puller Relationship Specialty Start Date End Date Mckenna Genao, SUELLEN [address] [place] [address] PCP - General Family Medicine 05/07/17 08/08/21 documented as of this encounter
--- OUTSIDE RECORDS SUMMARY | 2023-11-04 15:15 | XMS_ITS | Encounter Summary ---
[place] [address] Care Team Providers Care Synchronous Motor Assembler Name Role Phone Mckenna Genao APRN Primary Care Provider [phone] Encounter Details Date Type Department Care Team (Late st Contact Info) Description 03/29/2020 External Results Internal Medicine at [address] [phone] Estelle Clarke Social History Tobacco Use Types [...] 11/11/2023 3:00 AM EDT [place] [address] documented as of this encounter Visit Diagnoses Not on filedocumented in this encounter Care Teams Synchronous Motor Assembler Relationship Specialty Start Date End Date Mckenna Genao APRN [address] [place] [address] PCP - General Family Medicine 05/07/17 08/08/21 documented as of this encounter
--- OUTSIDE RECORDS SUMMARY | 2023-11-04 15:15 | XMS_ITS | Encounter Summary ---
Author Organization [facility] [address] Care Team Providers Care Food Safety Field Specialist Name Role Phone Birgit Mckenna KEN Primary Care Provider [phone] Encounter Details Date Type Department Care Team (Late st Contact Info) Description 04/12/2020 Anti-Coag Telephone Visit Internal Medicine at [facility] [address] [place] [address] Shasta Delaney [facility] Social History Tobacco Use Types Packs/Day [...] this encounter Progress Notes * Shasta Delaney [facility] - 04/12/2020 4:14 PM EST Anticoagulation Therapy Note: Indication: Single subsegmental pulmonary embolism without acute cor pulmonale ,Aortic valve prosthesis present, systemic Lupus erthematosus Duration of treatment: indefinite Range: 2.5-3.5 INR : 2.6 Monitored by: [facility]/ Cardio pt Bernie Ramos Drawn By: [facility] PCP Express care phone tamra Black Next INR Due: 1 week 04/1904/12/20: INR in range. Spoke to Cecilia and [...] from cardiology , was in patient at [facility] [place]18-[place]. Dx Acute PE , pending [...] Plaquenil 200 mg Bid Patient Contact Preference: [phone] (W) Message left on answering machine E-Mail/fax [...] Telephone Visit [facility] [place] [address] documented as of this encounter Visit Diagnoses Not on filedocumented in this encounter Care Teams Food Safety Field Specialist Relationship Specialty Start Date End Date Mckenna Genao, SUELLEN [address] [place] [address] PCP - General Family Medicine 05/07/17 08/08/21 documented as of this encounter
--- OUTSIDE RECORDS SUMMARY | 2023-11-04 15:15 | XMS_ITS | Encounter Summary ---
Author Organization [facility] [place] [address] Care Team Providers Care Pilot Plant Operator Name Role Phone BirgitShebamichael KEN Primary Care Provider [phone] Reason for Visit * Reason Comments Shortness of Breath Follow-up Encounter Details Date Type Department Care Team (Late st Contact Info) Description 07/02/2020 4:00 PM EDT Office Visit Cardiology at [address] [address] Gerardo Richter MD [facility] [place] [address] Aortic valve prosthesis present; FATIMA (dyspnea on exertion); S/P AVR; Anti-phospholipid antibody syndrome; Abnormal stress test Social History Tobacco Use [...] Sign Reading Time Taken Comments Blood Pressure 117/52 07/02/2020 3:27 PM EDT Pulse 81 07/02/2020 3:27 PM EDT Temperature - - Respiratory Rate - - Oxygen Saturation 97% 07/02/2020 3:27 PM EDT Inhaled Oxygen Concentration - - Weight 88.2 kg (194 lb 6.4 oz) 07/02/2020 3:27 P M EDT Height 160 cm (5' 3) 07/02/2020 3:27 PM EDT Body Mass Index 34.44 07/02/2020 3:27 PM EDT documented in this encounter Progress Notes * Gerardo Richter MD - 07/02/2020 4:00 PM EDT Images from the original note were not included. [facility] [place] [address] CARDIOVASCULAR MEDICINE OUTPATIENT CONSULTATION Cecilia Dumont [id number] 07/02/2020 REFERRING PROVIDER: Mckenna Genao CHIEF COMPLAINT: Chief Complaint Patient presents with ??? Shortness of Breath ??? Follow-up PROBLEM LIST Patient Active Problem List Diagnosis ??? [address] Alegre with severe AI, SLE, and APLS admitted for conversion to heparin prior to AVR. Course c/b gross hematuria, CHARLES, cp, anxiety. Severe AI 2+ -->4+ Widened pulse pressure Dilated LV ABRAHAN/ESD 6.7/ 5.3 cm EF=55% New dyspnea R/L cardiac cath 05/20/17- Normal coronary arteries Hemodynamics: Syst Diast EDP a v m RA 10 5 4 RV 22 4 PA 16 4 10 PCW 7 5 3 ? Ao 99/31 mmHg Hemodynamic Profile: Profile 1 CO 4.55 CI 2.57 ??? Chest pain-- normal cors by cath in 2004 and 2011 Cardiac catheterization 04/01/12: RAP-13 PAP-, PCWP-13, CO/CI-4.12/2.23; LVEF 60% infero-apical akinesis, inferior hypokinesis, normal R dominant coronary arteries. Near equalization of diastolic R&Lp ressures- cannot rule out mild constrictive pericardial physiology. Cardiac catheterization 07/16/04: RAP-1 PAP-18/5/10, PCWP- 2, CO/CI-4.13/2.40; LVEF 33% globa lhyopokinesis, christen coronary arteries ??? Antiphospholipid antibody----- use antiXa level to dose heparin. ?? On chronic coumadin ?? By hx, has required Lovenox bridge for procedures ?? History transient ischemic attacks, CVA, miscarriages, migraine headaches, and thrombocytopenia, ?? Seen by Dr. Hills in Apr 2017. See notes. ?? ACT 175 = anti Xa of 0.38 drawn at the same time ??? Dilated cardiomyopathy--- noted in 2003, improved Dx; 2003-, EF = 30%, ?due to [...] 60%, no RWMA Cardiac catheterization 07/16/04: RAP-1 PAP-18/5/10, PCWP- 2, CO/CI-4.13/2.40; LVEF 33% globa lhyopokinesis, normal coronary arteries, nl endomyocardial biopsy Echocardiography 10/13/06: LVEF 60%, nl RV, +1 AR, Echocardiography 10/28/07: LVEF 65%, no RWMA, nl RV, Echocardiography 10/30/08: LVEF 65%, no RWMA, nl RV, +1 AR, PASP 24 mmHg Echocardiography 03/15/12: LVEF 60-65%, +2 AR, nl LV/RV, LVEF 63% inf-apical akinesis, inferior hypokinesis at cath 04/01/12: Recovered LVEF ??? JAN on CPAP ??? Hyperlipemia ??? Systemic lupus erythematosus On plaquinil since Systemic lupus erythematosus with discoid rash, arthritis, oral and nasal ulcers, pleuro pericarditis, Raynaud's phenomena treated with cyclophosamide, steroids and rituximab. rituxan 05/14 with CD 1936 in 12/12; rituxan 04/14/08 and 05/01/08; 04/15 ??? Hypertension ??? Depression and anxiety ??? Aortic valve prosthesis present ??? Pulmonary embolism ??? Gross hematuria--- while on heparin ?? May 2017: seen by urology. They plan to do CT urogram and office cystoscopy when she recovers from cardiac surgery ??? Osteoporosis Prior treatment for osteoporosis while on prednisone with Actonel and calcium. DEXA 2001, spine -1.0, hip -0.6. Actonel DC'd 10/2008 ??? H/O total knee replacement Bilateral ??? Cerebral infarction---at age 21 Age 21 ??? Migraine HISTORY OF PRESENT ILLNESS: Mrs. Dumont is a very pleasant 50 year old woman with a history of SLE with triple positive APLA, CVA, dilated CMY with recovered EF, AVR who was [place] [facility] [place] in March 2020 with several weeks of pleuritic chest pain and FATIMA. CTA at outside hospital initially concerning for subsegmental PE w/o RV strain; however, consequent review with radiology at [facility] w/o evidence of PE or other lung pathology. Her TTE was unremarkable. Due to her symptoms, she underwent stress echo, which showed possible ischemia in RCA territory. Due to small territory of WMA, she was discharged with outpatient follow-up. I talked to her via telehealth on April 25, 2020. She reported ongoing significant dyspnea on exertion with minimal exertion. She reported that prior to March, she was able to ambulate significant distances every day, as many as 15 miles a day, without significant shortness of breath and she felt like the switch was flipped and made her suddenly short of breath. Therefore, I obtained a CTA coronary arteries given her abnormal stress test. This showed no evidence of coronary calcium or significant coronary artery disease. I also obtain PFTs; the finalized report is not yet available, but to my eye, there did not seem to be significant abnormalities, including normal DLCO. She continues to be short of breath with relatively minimal exertion. She has gained some weight asshe is not as active as before. She has no angina. She denies PND, orthopnea, lower extreme edema, palpitations, presyncope or syncope. Her blood pressure is well controlled in the office. REVIEW OF SYSTEMS: All others negative except as stated in the HPI. PAST MEDICAL HISTORY: Past Medical History: Diagnosis Date ??? Antiphospholipid antibody syndrome ??? Anxiety ??? Cerebrovascular accident ??? Chest pain 04/01/2012 ??? CHF (congestive heart failure) ??? Depression ??? FATIMA (dyspnea on exertion) 04/01/2012 ??? H/O total knee replacement 04/01/2012 ??? Hypertension ??? Migraine ??? JAN (obstructive sleep apnea) ??? Osteoporosis 04/01/2012 ??? Osteoporosis ??? SLE (systemic lupus erythematosus) SOCIAL HISTORY: Social History Tobacco Use ??? Smoking status: Former Smoker Quit date: 10/22/2007 Years since quittin.7 ??? Smokeless tobacco: Never Used Substance Use Topics ??? Alcohol use: No MEDICATIONS: Current Outpatient Medications Medication Sig Dispense Refill [...] PO, Once daily No current facility-administered medications for this visit. ALLERGIES: Tramadol PHYSICAL EXAMINATION: Vital Signs: BP 117/52 Pulse 81 Ht 160 cm (5' 3) Wt 88.2 kg (194 lb 6.4 oz) SpO2 97% BMI 34.44 kg/m?? Exam Details: General: Pleasant 50 y.o. female in no acute distress Eyes: No scleral icterus ENT: Moist mucous membranes Heart: Regular rate and rhythm, normal S1/S2, 2/6 ASHTYN LUSB w/o radiation Lungs: Clear to ascultation bilaterally Abdomen: Soft, non-tender, non-distended, normoactive bowel sounds noted. Extremities: No peripheral edema noted. No ulcerations noted. Neuro: No gross abnormalities noted Psych: Alert and oriented 3 x, normal affect DATA PERSONALLY REVIEWED: Last 3 wbc, hgb, hct plt Recent Labs 03/21/20 0343 03/20/20 0431 03/19/20 0323 WBC 7.1 7.5 6.5 HGB 14.0 14.5 13.6 HCT 41.2 42.4 40.1 PLATELET 223 241 235 Last 3 Lytes Recent Labs 07/02/20 0925 06/07/20 1420 03/21/20 0343 03/20/20 0431 03/19/20 0323 NA -- -- 139 140 141 K -- -- 4.0 4.0 3.8 CL -- -- 103 103 105 CO2 -- -- 27 27 27 BUN -- -- 18 18 19* CREATININE 0.80 0.96 0.73 0.68* 0.74 TTE 03/19/2020: 1. The left ventricle is [...] evidence of lower extremity deep venous thrombosis. ?? CTA-PE 03/18/2020: IMPRESSION Allowing for cardiovascular pulsation artifact in the medial left lung adjacent to aortic arch and left ventricle, no pulmonary arterial filling defects seen. CTA coronaries 07/02/20: IMPRESSION 1. Coronary calcium score of 0 , consistent with undetectable atherosclerotic plaque burden. 2. No demonstrable coronary artery [...] artery (RCA) was normal, free of disease. ? ASSESSMENT AND PLAN: #1 Dyspnea on exertion #2 Triple positive APLA #3 History of AVR Mrs. Dumont a very pleasant 50 woman with history of SLE and triple positive APLA with consequent stroke, status post mechanical AVR, admission in March 2020 for pleuritic chest pain shortness ofbreath, initially concerning for pulmonary embolism, which have been ruled out, mildly abnormal stress test in inferior wall motion and normality, although normal CTA coronaries who presents for follow-up. It is conceivable that she may have microvascular disease as cause of her abnormal stress test, although this is usually less likely without some evidence of atherosclerosis. In any case, I do not think that this explains her significant dyspnea on exertion. Her PFTs today also do not seem toexplain it. I wonder how much of this could be due to deconditioning. She is eager to start walkingagain and I think that is an excellent next step. I have asked her to start walking again slowly, and build up on walking on a regular basis. If she continues to be short of breath, can consider CPETas the next step. Plan: 1. Start walking. 2. Continue metoprolol succinate 50 mg daily, aspirin and warfarin. 3. Telehealth visit in 3 months to discuss how she is doing. Thank you for allowing me to participate in the care of your patient. Please do not hesitate to contact me with any questions or concerns. 20 minutes spent reviewing prior records, imaging (CTA coronaries), [id number] consultation with patient, and documentation. Gerardo Richter MD, MPH, VI, [facility], [facility] Cardiovascular Wafer SlicerAdvertising Internship[place] [address] documented in this encounter Plan of Treatment Upcoming Encounters Date Type Department Care Team (Late st Contact Info) Description 11/11/2023 3:00 AM EDT Anti-Coag Telephone Visit [facility] Central[place] [address] documented as of this encounter Procedures Procedure Name Priority Date/Time Associated Diagnosis Comments EKG 12-LEAD Routine 07/02/2020 3:34 PM EDT Aortic valve prosthesis present documented in this encounter Results * EKG 12 Lead (07/02/2020 3:34 PM EDT) Ventricular rate 81 BPM MUSE SYSTEM Atrial Rate 81 BPM MUSE SYSTEM P-R Interval 172 ms MUSE SYSTEM QRS Duration 114 ms MUSE SYSTEM Q-T Interval 422 ms MUSE SYSTEM QTC Calculated (Bezet) 490 ms MUSE SYSTEM Calculated P [place] 56 degrees MUSE SYSTEM Calculated R [place] -28 degrees MUSE SYSTEM Calculated T [place] 49 degrees MUSE SYSTEM INTERPRETATION Non-specific intra-ventricul [...] present Heart valve replaced by other means FATIMA (dyspnea on exertion) Other dyspnea and respiratory abnormality S/P AVR Heart valve replaced by other means Anti-phospholipid antibody syndrome Primary hypercoagulable state Abnormal stress test Other nonspecific abnormal cardiovascular system function study documented in this encounter Care Teams Pilot Plant Operator Relationship Specialty Start Date End Date Mckenna Genao, SUELLEN [address] [place] [address] PCP - General Family Medicine 05/07/17 08/08/21 documented as of this encounter
--- OUTSIDE RECORDS SUMMARY | 2023-11-04 15:15 | XMS_ITS | Encounter Summary ---
[place] [address] Care Team Providers Care Plate Grainer Apprentice Name Role Phone SandraMckenna rodriguez SUELLEN Primary Care Provider [phone] Reason for Visit * Reason Onset Date Comments Medication Refill 04/16/2020 Encounter Details Date Type Department Care Team (Late st Contact Info) Description 04/16/2020 Refill Internal Medicine at [facility] [address] [place] [address] Estelle Clarke Aortic valve prosthesis present; Chronic [...] Anti-Coag Telephone Visit [facility] [place] [phone] documented as of this encounter Visit Diagnoses Diagnosis Aortic valve prosthesis present Heart valve replaced by other means 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
--- OUTSIDE RECORDS SUMMARY | 2023-11-04 15:15 | XMS_ITS | Encounter Summary ---
Author Organization [facility] [place] [address] Care Team Providers Care Astronomy Instructor Name Role Phone BirgitMckenna SUELLEN Primary Care Provider [phone] Encounter Details Date Type Department Care Team (Late st Contact Info) Description 07/10/2020 4:00 AM EDT Anti-Coag Telephone Visit Internal Medicine at [facility] [address] [place] [address] Shasta Delaney [facility] Social History Tobacco Use Types Packs/Day [...] Delaney [facility] - 07/10/2020 4:00 AM EDT Anticoagulation Therapy Note: Indication: Single subsegmental pulmonary embolism without acute cor pulmonale ,Aortic valve prosthesis present, systemic Lupus erthematosus Duration of treatment: indefinite Range: 2.5-3.5 INR : 2.8 Monitored by: [facility]/ Cardio pt Bernie Ramos Drawn By: [facility] PCP Express care phone tamra Black Next INR Due: 08/0707/10/20: INR in range. Spoke to Cecilia and [...] Plaquenil 200 mg Bid Patient Contact Preference: [phone] (W) Message left on answering machine@9:34am E-Mail/fax x Spoke with patient Cale Lew [...] Visit [facility] [place] [address] documented as of this encounter Visit Diagnoses Not on filedocumented in this encounter Care Teams Astronomy Instructor Relationship Specialty Start Date End Date Mckenna Genao, SUELLEN [address] [place] [address] PCP - General Family Medicine 05/07/17 08/08/21 documented as of this encounter
--- OUTSIDE RECORDS SUMMARY | 2023-11-04 15:15 | XMS_ITS | Encounter Summary ---
Author Organization [facility] [place] [address] Care Team Providers Care Residence Counselor Name Role Phone BirgitShebamichael KEN Primary Care Provider [phone] Encounter Details Date Type Department Care Team (Late st Contact Info) Description 05/01/2020 [place] [id number] Harvey Isabel MD [facility] [place] [address] Social History Tobacco Use Types Packs/Day Years [...] encounter Miscellaneous Notes * Telephone Encounter - Harvey Isabel MD - 05/01/2020 9:06 PM EST Received a telephone call from Cecilia Dumont, a 50 year old woman who is seen for PE and AV replacement. She reports that she rode down to [facility], and forgot to put her Coumadin in her medicationcase. She is requesting 10 total 5mg coumadin pills to be sent to [facility] in [place] so that she can continue to take her medication as it is snowing and she is unable to retrieve her prescription.She had a blood draw recently with [facility] but is not aware of her INR result. She will checkin with her anticoagulation clinic tomorrow to confirm her dosing prior to taking the coumadin. Sheis aware to call with any questions or concerns. 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
--- OUTSIDE RECORDS SUMMARY | 2023-11-04 15:15 | XMS_ITS | Encounter Summary ---
[place] [address] Care Team Providers Care Receiver Stocker Name Role Phone Mckenna Genao APRN Primary Care Provider [phone] Reason for Referral * Consultation (Routine) - Closed Specialty Diagnoses / Procedures Referred By Contac t Referred To Contact Diagnoses Single subsegmental pulmonary embolism without acute cor pulmonale Aortic valve prosthesis present Khanh Garcia MD [facility] [address] [facility] Internal Medicine [address] [place] [address] Referral ID Status Reason Start Date Expiration Date V isits Requested Visits Authorized [id number] Closed Assume Subset of Care 03/29/2020 03/29/2021 1 1 Encounter Details Date Type Department Care Team (Late st Contact Info) Description 03/29/2020 Orders [place] [address] Khanh Garcia MD [facility] [address] Aortic valve prosthesis present (Primary Dx); Single subsegmental pulmonary embolism without acute cor pulmonale Social History Tobacco Use [...] Visit [facility] [place] [address] Scheduled Referrals Name Type Priority Associated Diagnoses Orde r Schedule Referral for Anticoagulation Monitoring Outpatient Referral Routine Single subsegmental pulmonary embolism without acute cor pulmonale Aortic valve prosthesis present Ordered: 03/29/2020 documented as of this encounter Visit Diagnoses Diagnosis Aortic valve prosthesis present- Primary Heart valve replaced by other means Single subsegmental pulmonary embolism without acute cor pulmonale documented in this encounter Care Teams Receiver Stocker Relationship Specialty Start Date End Date Mckenna Genao, SUELLEN [address] [place] [address] PCP - General Family Medicine 05/07/17 08/08/21 documented as of this encounter
--- OUTSIDE RECORDS SUMMARY | 2023-11-04 15:15 | XMS_ITS | Encounter Summary ---
Author Organization [facility] [place] [address] Care Team Providers Care Hospital Cook Name Role Phone Birgit Mckenna KEN Primary Care Provider [phone] Encounter Details Date Type Department Care Team (Late st Contact Info) Description 06/07/2020 Anti-Coag Telephone Visit Internal Medicine at [facility] [address] [place] [address] Shasta Delaney [facility] Social History Tobacco Use Types Packs/Day [...] Shasta Delaney [facility] - 06/07/2020 3:57 PM EST Anticoagulation Therapy Note: Indication: Single subsegmental pulmonary embolism without acute cor pulmonale ,Aortic valve prosthesis present, systemic Lupus erthematosus Duration of treatment: indefinite Range: 2.5-3.5 INR : 1.4 Monitored by: [facility]/ Cardio pt Bernie Ramos Drawn By: [facility] PCP Express care phone tamra Black Next INR Due: 6 days 06/1306/08/20: Cecilia called clinic today to report that [...] fluctuating a lot the past couple weeks. [place] clinic tomorrow if there are any [...] reports getting a call last evening from civil engineering professional provider at PCP's office and was instructed to hold her dose. I still decreased her weekly dose as shereports being under a slot of stress and not eating much. Denies sxs of bleeding but does report some bruises on hips/legs. Understands when to seek medical attention. Cecilia wrote down her new dose instructions and read it back correctly. Patient may still be in [facility] next week and will test INR at [facility]. 05/24/20: INR from yesterday is supratherapeutic. Hold [...] from cardiology , was in patient at [facility] from 03/18-03/22. Dx Acute PE , pending [...] Plaquenil 200 mg Bid Patient Contact Preference: [phone] (W) Message left on answering machine E-Mail/fax [...] Anti-Coag Telephone Visit [facility] [place] [address] documented as of this encounter Visit Diagnoses Not on filedocumented in this encounter Care Teams Hospital Cook Relationship Specialty Start Date End Date Mckenna Genao, SUELLEN [address] [place] [address] PCP - General Family Medicine 05/07/17 08/08/21 documented as of this encounter
--- OUTSIDE RECORDS SUMMARY | 2023-11-04 15:15 | XMS_ITS | Encounter Summary ---
[place] [address] Care Team Providers Care Treating Engineer Helper Name Role Phone Mckenna Genao APRN Primary Care Provider [phone] Reason for Visit * Reason Onset Date Comments Anticoagulation 07/09/2020 Encounter Details Date Type Department Care Team (Late st Contact Info) Description 07/09/2020 Telephone Internal Medicine at [facility] [address] [place] [address] Estelle Clarke Anticoagulation Social History Tobacco Use [...] * Telephone Encounter - Estelle Clarke - 07/09/2020 1:41 PM EDT TC to patient after calling [facility]. I was told there wasn't an INR on her from last week so I assume they never processed her blood. Patient is going back today and will take her reg Thursday dose if we don't get the result back during business hours. documented in this encounter Plan of Treatment Upcoming Encounters Date Type Department Care Team (Late st Contact Info) Description 11/11/2023 3:00 AM EDT Anti-Coag Telephone Visit [facility] [place] [address] documented as of this encounter Visit Diagnoses Not on filedocumented in this encounter Care Teams Treating Engineer Helper Relationship Specialty Start Date End Date Mckenna Genao, SUELLEN [address] [place] [address] PCP - General Family Medicine 05/07/17 08/08/21 documented as of this encounter
--- OUTSIDE RECORDS SUMMARY | 2023-11-04 15:15 | XMS_ITS | Encounter Summary ---
[place] [address] Care Team Providers Care Confectionery Drops Machine Operator Name Role Phone Mckenna Genao APRN Primary Care Provider [phone] Encounter Details Date Type Department Care Team (Late st Contact Info) Description 04/20/2020 Telephone Cardiology at [address] [address] Chata Mccollum, TJ Social History Tobacco Use Types Packs/Day Years [...] Telephone Visit [facility] [place] [address] documented as of this encounter Visit Diagnoses Not on filedocumented in this encounter Care Teams Confectionery Drops Machine Operator Relationship Specialty Start Date End Date Mckenna Genao APRN [address] [facility] [address] PCP - General Family Medicine 05/07/17 08/08/21 documented as of this encounter
--- OUTSIDE RECORDS SUMMARY | 2023-11-04 15:15 | XMS_ITS | Encounter Summary ---
[place] [address] Care Team Providers Care Line Helper Name Role Phone Mckenna Genao APRN Primary Care Provider [phone] Reason for Visit * Reason Onset Date Comments Anticoagulation 05/23/2020 Encounter Details Date Type Department Care Team (Late st Contact Info) Description 05/23/2020 Telephone Internal Medicine at [facility] [address] [place] [address] Estelle Clarke Anticoagulation Social History [...] * Telephone Encounter - Estelle Clarke - 05/23/2020 4:39 PM EST TC to patient to find out If she's been to her doctor's office for an INR. She went this afternoon so result won't be available until tomorrow. Patient moved to 05/24 phone schedule. documented in this encounter Plan of Treatment Upcoming Encounters Date Type Department Care Team (Late st Contact Info) Description 11/11/2023 3:00 AM EDT [place] [address] documented as of this encounter Visit Diagnoses Not on filedocumented in this encounter Care Teams Line Helper Relationship Specialty Start Date End Date Mckenna Genao, SUELLEN [address] [place] [address] PCP - General Family Medicine 05/07/17 08/08/21 documented as of this encounter
--- OUTSIDE RECORDS SUMMARY | 2023-11-04 15:15 | XMS_ITS | Encounter Summary ---
Author Organization [facility] [place] [address] Care Team Providers Care Chemist Internship Name Role Phone Mckenna Genao APRN Primary Care Provider [phone] Reason for Visit * Reason Onset Date Comments Anticoagulation 04/19/2020 Encounter Details Date Type Department Care Team (Late st Contact Info) Description 04/19/2020 Telephone Internal Medicine at [facility] [address] [place] [address] Estelle Clarke Anticoagulation Social History [...] * Telephone Encounter - Estelle Clarke - 04/19/2020 5:13 PM EST INR overdue Pt overdue as of:04/19 TC to patient:yes Postpone date: 04/24 Notes: Patient is in [place] with family and will go to lab when she gets back on 04/24. Pt will call me and confirm once she has gone so I can f/u with lab if needed. Patient moved to the 04/24 [facility]. documented in this encounter Plan of Treatment Upcoming Encounters Date Type Department Care Team (Late st Contact Info) Description 11/11/2023 3:00 AM EDT Anti-Coag Telephone Visit [facility] [place] [address] documented as of this encounter Visit Diagnoses Not on filedocumented in this encounter Care Teams Chemist Internship Relationship Specialty Start Date End Date Mckenna Genao, SUELLEN [address] [place] [address] PCP - General Family Medicine 05/07/17 08/08/21 documented as of this encounter
--- OUTSIDE RECORDS SUMMARY | 2023-11-04 15:15 | XMS_ITS | Encounter Summary ---
Author Organization [facility] [place] [address] Care Team Providers Care Child And Adolescent Therapist Name Role Phone Birgit Mckenna KEN Primary Care Provider [phone] Encounter Details Date Type Department Care Team (Late st Contact Info) Description 05/24/2020 Anti-Coag Telephone Visit Internal Medicine at [facility] [address] [place] [address] Shasta Delaney [facility] Social [...] [facility] - 05/24/2020 8:35 AM EST Anticoagulation Therapy Note: Indication: Single subsegmental pulmonary embolism without acute cor pulmonale ,Aortic valve prosthesis present, systemic Lupus erthematosus Duration of treatment: indefinite Range: 2.5-3.5 INR : 4.9 Monitored by: [facility]/ Cardio pt Bernie Ramos Drawn By: [facility] PCP Express care phone tamra Black Next INR Due: 1 week 05/3005/24/20: INR from yesterday is supratherapeutic. Hold tonight's [...] from cardiology , was in patient [place] [facility] [place]18[place]. Dx Acute PE , pending [...] Plaquenil 200 mg Bid Patient Contact Preference: [phone] (W) Message left on answering machine E-Mail/fax [...] Visit [facility] [place] [address] documented as of this encounter Visit Diagnoses Not on filedocumented in this encounter Care Teams Child And Adolescent Therapist Relationship Specialty Start Date End Date Mckenna Genao APRN [address] [place] [address] PCP - General Family Medicine 05/07/17 08/08/21 documented as of this encounter
--- OUTSIDE RECORDS SUMMARY | 2023-11-04 15:15 | XMS_ITS | Encounter Summary ---
Author Organization [facility] [place] [address] Care Team Providers Care Information Management Officer Name Role Phone Birgit Mckenna KEN Primary Care Provider [phone] Encounter Details Date Type Department Care Team (Late st Contact Info) Description 06/15/2020 Anti-Coag Telephone Visit Internal Medicine at [facility] [address] [place] [address] Shasta Delaney [facility] Social History Tobacco Use Types Packs/Day Years [...] Delaney [facility] - 06/15/2020 9:19 AM EST Anticoagulation Therapy Note: Indication: Single subsegmental pulmonary embolism without acute cor pulmonale ,Aortic valve prosthesis present, systemic Lupus erthematosus Duration of treatment: indefinite Range: 2.5-3.5 INR : 3.5 Monitored by: [facility]/ Cardio pt Bernie Ramos Drawn By: [facility] PCP Express care phone tamra Black Next INR Due: 06/2106/21/20: INR pending, instructed Cecilia to take 5mg [...] reports getting a call last evening from composition board press operator provider at PCP's office and was instructed [...] still be in [facility] next week and will test INR at [facility]. 05/24/20: INR from yesterday is supratherapeutic. [...] from cardiology , was in patient at [facility] from 03/18-03/22. Dx Acute [...] Plaquenil 200 mg Bid Patient Contact Preference: [phone] (W) Message left on answering machine E-Mail/fax [...] changes: Include Prescription/OTC/Herbal x Yes No Comment Completed antibiotics Have you misssed any dose of Coumadin [...] Encounters Date Type Department Care Team (Kelly peña Contact Info) Description 11/11/2023 3:00 AM EDT Anti-Coag Telephone Visit [facility] [place] [address] documented as of this encounter Visit Diagnoses Not on filedocumented in this encounter Care Teams Information Management Officer Relationship Specialty Start Date End Date Mckenna Genao, FINAL EXPENSE AGENT [address] [place] [address] PCP - General Family Medicine 05/07/17 08/08/21 documented as of this encounter
--- OUTSIDE RECORDS SUMMARY | 2023-11-04 15:15 | XMS_ITS | Encounter Summary ---
[place] [address] Care Team Providers Care Nurses' Aide Name Role Phone Mckenna Genao APRN Primary Care Provider [phone] Encounter Details Date Type Department Care Team (Late st Contact Info) Description 05/30/2020 External Results Internal Medicine at [place] [address] [place] [address] Natalee Brandt, JUANA Social History Tobacco Use Types Packs/Day Years [...] Anti-Coag Telephone Visit [facility] Centralized [place] [address] documented as of this encounter Procedures Procedure Name Priority Date/Time Associated Diagnosis Comments EXTERNAL LAB HEMATOLOGY/COAG RESULTS PANEL Routine 05/30/2020 documented in this encounter Results * (ABNORMAL) Hematology / Coag External Results (05/30/2020) INR 4.30 EXTERNAL LAB Comment:[facility] 05/30/2020 Historical Provider HEMATOLOGY [facility] EXTERNAL LAB documented in this encounter Visit Diagnoses Not on filedocumented in this encounter Care Teams Nurses' Aide Relationship Specialty Start Date End Date Mckenna Genao, SUELLEN [address] [place] [address] PCP - General Family Medicine 05/07/17 08/08/21 documented as of this encounter
--- OUTSIDE RECORDS SUMMARY | 2023-11-04 15:15 | XMS_ITS | Encounter Summary ---
[place] [address] Care Team Providers Care Transmission Rebuilder Name Role Phone KareenMckenna marlow CHIEF RADIATION THERAPIST Primary Care Provider [phone] Encounter Details Date Type Department Care Team (Late st Contact Info) Description 06/15/2020 External Results Internal Medicine at [facility] [address] [place] [address] Estelle Clarke Social History Tobacco Use Types [...] Telephone Visit [facility] [place] [address] documented as of this encounter Procedures Procedure Name Priority Date/Time Associated Diagnosis Comments EXTERNAL LAB HEMATOLOGY/COAG RESULTS PANEL Routine 06/14/2020 documented in this encounter Results * Hematology / Coag External Results (06/14/2020) INR 3.50 EXTERNAL LAB Comment:[facility] 06/14/2020 Historical Provider HEMATOLOGY [facility] EXTERNAL LAB documented in this encounter Visit Diagnoses Not on filedocumented in this encounter Care Teams Transmission Rebuilder Relationship Specialty Start Date End Date Mckenna Genao, SUELLEN [address] [place] [address] PCP - General Family Medicine 05/07/17 08/08/21 documented as of this encounter
--- OUTSIDE RECORDS SUMMARY | 2023-11-04 15:15 | XMS_ITS | Encounter Summary ---
[place] [address] Care Team Providers Care Early Childhood Educator Aide Name Role Phone BirgitMckenna SUELLEN Primary Care Provider [phone] Encounter Details Date Type Department Care Team (Latest Contact Info) Description 06/07/2020 2:20 PM EST Laboratory Appointment Lab at [address] [address] Aortic valve prosthesis present; Hypertension, unspecified type; Hyperlipidemia, unspecified hyperlipidemia type Social History Tobacco [...] Anti-Coag Telephone Visit [facility] Centralized [place] [address] documented as of this encounter Procedures Procedure Name Priority Date/Time Associated Diagnosis Comments HC CREATININE Routine 06/07/2020 2:20 PM EST Hypertension, unspecified type Aortic valve prosthesis present Hyperlipidemia, unspecified hyperlipidemia type HC VENIPUNCTURE Routine 06/07/2020 2:20 PM EST Aortic valve prosthesis present documented in this encounter Results * Creatinine (06/07/2020 2:20 PM EST) Creatinine 0.96 0.70 - 1.20 mg/dL [facility] Estimated GFR 70 >=60 mL/min/1. 73 m?? [facility] Comment: This patient? s [...] In Lab Gerardo Richter MD CHEMISTRY ORDERABLES [facility] [place] [address] * (ABNORMAL) Prothrombin Time (06/07/2020 2:20 PM EST) PT 15.6(H) 9.4 - 12.5 sec [facility] INR 1.4 [facility] Comment: An INR <2.0 indicates adequate procoagulant activity for hemostasis in most patients without underlying bleeding disorders, though the INR may not adequately reflect hemostatic capacity in patients with liver disease and synthetic impairment. The recommended target INR range for therapeutic anticoagulation is 2.0 ? 3.0 for most applications, though lower and higher ranges may be appropriate depending on clinical circumstances. Blood specimen (specimen) 06/07/2020 2:20 PM EST 06/07/2020 3:25 PM EST Narrative Resulting Agency Comment Spec In Lab Hunter Navarro MD HEMATOLOGY [facility] Organization Address City/State/[facility] Co de Phone Number [facility] [address] [place] [address] documented in this encounter Visit Diagnoses Diagnosis Aortic valve prosthesis present Heart valve replaced by other means Hypertension, unspecified type Hyperlipidemia, unspecified hyperlipidemia type documented in this encounter Care Teams Early Childhood Educator Aide Relationship Specialty Start Date End Date Mckenna Genao, SUELLEN [address] [place] [address] PCP - General Family Medicine 05/07/17 08/08/21 documented as of this encounter
--- OUTSIDE RECORDS SUMMARY | 2023-11-04 15:16 | XMS_ITS | Encounter Summary ---
Author Organization [facility] [place] [address] Care Team Providers Care Water Truck Driver Name Role Phone BirgitMckenna SUELLEN Primary Care Provider [phone] Encounter Details Date Type Department Care Team (Late st Contact Info) Description 03/18/2020 Telephone Cardiology at [address] [phone] Brad Cain MD [facility] [place] [address] Social History Tobacco Use Types Packs/Day Years [...] encounter Miscellaneous Notes * Telephone Encounter - Brad Cain MD - 03/18/2020 5:57 PM EST Images from the original note were not included. 03/18/2020 Cecilia Dumont Initial Contact Date: 03/18/2020 Initial contact time: 5:57 PM Referring Provider: Dr. Rivera Patient Location: [facility] HPI 50F with h/o AR s/p AVR in 05/2017, SLE, APLS on coumadin who presented to [facility] with L sided chest pain. Pleuritic chest pain x 3 weeks Exertional dyspnea. Non exertional CP Reproducible pain with provider palpation to L chest No h/o CAD in the past. Last cath [address] Ortiz without e/o obstructive disease Pertinent Diagnostic Findings: HR 83, BP 90s-120s/60s-70s CBC - wnl Trop neg x1. BNP 200s. INR therapeutic Initial EKG - NSR. LVH with 1-2mm ST elevations in V2-V3. Consider repol changes. TWI inferolaterally Second EKG - NSR. LVH with [address] elevations in V2-V3, consider 2/2 repol changes. Inversions laterally resolved. OSH Interventions: ASA 325 x1 Plan: 50F with h/o AR s/p AVR in 05/2017, SLE, APLS on coumadin who presented to [facility] with L sided chest pain. Initial EKG with LVH with mild ST elevations that appear to be due more to repolarization changes. Lateral inversions present initially resolved on repeat. Trop neg x1. Symptoms are atypical and have been present at rest for the past 3 weeks without improvement. Non-exertional. Reproducible on exam per provider. She had a very similar appearing EKG from 2 years prior when she was brought over from [facility] with similar symptomatology. Cath at the time was negative for obstructive disease. Was found to have AR and underwent a mechanical AVR on 05/25/2017. Unclear why she is having chest pain but symptoms are quite atypical. This being said, she is at higher risk given her h/o SLE and APLS. Should also consider SCAD, PE and valvulopathy. Will transfer to for further care - will require ACS r/o, ischemic workup, and echo. INR is therapeutic on coumadin currently. Will continue home coumadin and is s/p ASA 325 x1. Hold off on a second antiplatelet agent at this time. Update: Of note, patient en route. Called by provider Dr. Rivera who notified me that results of CT angio show 2 lower lobe subsegmental PEs. No evidence of RH strain by CT. Will continue home AC for now and echo in AM. Above recommendations were based on my discussion with Dr. Rivera; I have not personally interviewed or examined this patient. Advised to call the transfer center back with any changes in the patient condition. Brad Cain PGY4 Cardiology [id number] documented in this encounter Plan of Treatment Upcoming Encounters Date Type Department Care Team (Late st Contact Info) Description 11/11/2023 3:00 AM EDT Anti-Coag Telephone Visit [facility] [place] [phone] documented as of this encounter Visit Diagnoses Not on filedocumented in this encounter Care Teams Water Truck Driver Relationship Specialty Start Date End Date Mckenna Genao, CENTRAL OFFICE OPERATOR [address] [place] [address] PCP - General Family Medicine 05/07/17 08/08/21 documented as of this encounter
--- OUTSIDE RECORDS SUMMARY | 2023-11-04 15:16 | XMS_ITS | Encounter Summary ---
[place] [address] Care Team Providers Care Computer Game Tester Name Role Phone Birgit Mckenna KEN Primary Care Provider [phone] Reason for Visit * Reason Onset Date Comments Medication Refill 10/20/2018 Encounter Details Date Type Department Care Team (Late st Contact Info) Description 10/20/2018 [place] [phone] Juventino Grajeda RN Social History Tobacco Use Types Packs/Day [...] Telephone Encounter - Juventino Grajeda RN - 10/20/2018 9:53 AM EDT Call received from Pharmacy and patient asking for Medication Route change and a new provider as they are not able to assign Dr. Candelario due to her being a fellow. Will ask Dr. Aguilar to sign for her documented in this encounter Plan of Treatment Upcoming Encounters Date Type Department Care Team (Late st Contact Info) Description 11/11/2023 3:00 AM EDT [place] [address] documented as of this encounter Visit Diagnoses Not on filedocumented in this encounter Care Teams Computer Game Tester Relationship Specialty Start Date End Date Mckenna Genao, SUELLEN [address] [place] [address] PCP - General Family Medicine 05/07/17 08/08/21 documented as of this encounter
--- OUTSIDE RECORDS SUMMARY | 2023-11-04 15:16 | XMS_ITS | Encounter Summary ---
[place] [address] Care Team Providers Care Staff Attorney Name Role Phone BirgitMckenna SUELLEN Primary Care Provider [phone] Encounter Details Date Type Department Care Team (Late st Contact Info) Description 03/18/2020 External Results [place] [phone] Social History Tobacco Use Types Packs/Day Years [...] Telephone Visit [facility] Centralized [place] [phone] documented as of this encounter Procedures Procedure Name Priority Date/Time Associated Diagnosis Comments ECG SCAN Routine 03/18/2020 ECG SCAN Routine 03/18/2020 documented in this encounter Results * Scan Doc: ECG (03/18/2020) Historical Provider MD MEDIA MGR SCAN EX T ORDR/RSLT * Scan Doc: ECG (03/18/2020) Historical Provider MD MEDIA MGR SCAN EX T ORDR/RSLT documented in this encounter Visit Diagnoses Not on filedocumented in this encounter Care Teams Staff Attorney Relationship Specialty Start Date End Date Mckenna Genao, TRANSPORT ASSISTANT [address] [place] [address] PCP - General Family Medicine 05/07/17 08/08/21 documented as of this encounter
--- OUTSIDE RECORDS SUMMARY | 2023-11-04 15:16 | XMS_ITS | Encounter Summary ---
Author [place] [address] Care Team Providers Care Tier Lift Operator Name Role Phone SandraMckenna rodriguez SUELLEN Primary Care Provider [phone] Encounter Details Date Type Department Care Team (Latest Contact Info) Description 07/20/2017 11:00 AM EDT Laboratory Appointment Lab [address] [phone] Gross hematuria Social History Tobacco Use Types Packs/Day Years [...] Telephone Visit [facility] [place] [address] documented as of this encounter Procedures Procedure Name Priority Date/Time Associated Diagnosis Comments CREATININE Routine 07/20/2017 10:26 AM EDT Gross hematuria documented in this encounter Results * Creatinine (07/20/2017 10:26 AM EDT) Creatinine 0.83 0.70 - 1.20 mg/dL [facility] Estimated GFR >60 >=60 [facility] Comment: The reported eGFR should be multiplied by 1.2 for patients. The MDRD is not an appropriate measure of renal function for patients with body mass extremes or in patients with acute kidney failure. [email or web address] Blood specimen (specimen) 07/20/2017 10:26 AM EDT 07/20/2017 10:35 AM EDT Narrative Resulting Agency Comment Spec In Lab Alvaro Siegel MD CHEMISTRY ORDERABL ES Performing Organization Address City/State/[facility] Co de Phone Number [facility] [place] [phone] documented in this encounter Visit Diagnoses Diagnosis Gross hematuria documented in this encounter Care Teams Tier Lift Operator Relationship Specialty Start Date End Date Mckenna Genao, SUELLEN [address] [place] [address] PCP - General Family Medicine 05/07/17 08/08/21 documented as of this encounter
--- OUTSIDE RECORDS SUMMARY | 2023-11-04 15:16 | XMS_ITS | Encounter Summary ---
[place] [address] Care Team Providers Care Isolation Washer Name Role Phone Mckenna Genao APRN Primary Care Provider [phone] Encounter Details Date Type Department Care Team (Late st Contact Info) Description 07/04/2019 [place] [phone] Mela Maya Social History Tobacco Use Types Packs/Day Years [...] encounter Miscellaneous Notes * Telephone Encounter - Mela Maya - 07/04/2019 4:30 PM EDT Lm for pt on cell to call and confirm appt change to tov. Pt must call to confirm. Sent [facility] too documented in this encounter Plan of Treatment Upcoming Encounters Date Type Department Care Team (Late st Contact Info) Description 11/11/2023 3:00 AM EDT Anti-Coag Telephone Visit [facility] [place] [address] documented as of this encounter Visit Diagnoses Not on filedocumented in this encounter Care Teams Isolation Washer Relationship Specialty Start Date End Date Mckenna Genao, CHANNEL ACCOUNT MANAGER [address] [place] [address] PCP - General Family Medicine 05/07/17 08/08/21 documented as of this encounter
--- OUTSIDE RECORDS SUMMARY | 2023-11-04 15:16 | XMS_ITS | Encounter Summary ---
[place] [address] Care Team Providers Care Battery Charger Name Role Phone BirgitMckenna SUELLEN Primary Care Provider [phone] Encounter Details Date Type Department Care Team (Latest Contact Info) Description 10/19/2018 3:35 PM EDT Laboratory Appointment Lab [address] [place] [phone] Systemic lupus erythematosus, unspecified SLE type, unspecified organ involvement status; Antiphospholipid antibody syndrome; High risk medication use Social History Tobacco [...] Visit [facility] [place] [phone] documented as of this encounter Procedures Procedure Name Priority Date/Time Associated Diagnosis Comments CRP, ACUTE INFLAMMATION Routine 10/19/2018 3:52 PM EDT Systemic lupus erythematosus, unspecified SLE type, unspecified organ involvement status Antiphospholipid antibody syndrome LUPUS ANTICOAGULANT Routine 10/19/2018 3 :52 PM EDT Systemic lupus erythematosus, unspecified SLE type, unspecified organ involvement status Antiphospholipid antibody syndrome SILICA CLOTTING TIME Routine 10/19/2018 3:52 PM EDT Systemic lupus erythematosus, unspecified SLE type, unspecified organ involvement status Antiphospholipid antibody syndrome DRVVT Routine 10/19/2018 3:52 PM EDT Systemic lupus erythematosus, unspecified SLE type, unspecified organ involvement status Antiphospholipid antibody syndrome QUANTIFERON-TB GOLD Routine 10/19/2018 3 :52 PM EDT Systemic lupus erythematosus, unspecified SLE type, unspecified organ involvement status Antiphospholipid antibody syndrome DNA ANTIBODY (DOUBLE-STRANDED) Routine 10/19/2018 3:52 PM EDT Systemic lupus erythematosus, unspecified SLE type, unspecified organ involvement status Antiphospholipid antibody syndrome HEMOGRAM Routine 10/19/2018 3:52 PM EDT Systemic lupus erythematosus, unspecified SLE type, unspecified organ involvement status Antiphospholipid antibody syndrome DIFFERENTIAL, AUTOMATED Routine 10/19/2018 3:52 PM EDT Systemic lupus erythematosus, unspecified SLE type, unspecified organ involvement status Antiphospholipid antibody syndrome HEPATITIS C ANTIBODY Routine 10/19/2018 3:52 PM EDT Systemic lupus erythematosus, unspecified SLE type, unspecified organ involvement status Antiphospholipid antibody syndrome HEPATITIS B CORE ANTIBODY, TOTAL Routine 10/19/2018 3:52 PM EDT Systemic lupus erythematosus, unspecified SLE type, unspecified organ involvement status Antiphospholipid antibody syndrome HIV SCREEN, 4TH GENERATION ([facility]/CGP/APD/[facility]) Routine 10/19/2018 3:52 PM EDT Systemic lupus erythematosus, unspecified SLE type, unspecified organ involvement status Antiphospholipid antibody syndrome HEPATITIS B SURFACE ANTIBODY Routine 10/19/2018 3:52 PM EDT Systemic lupus erythematosus, unspecified SLE type, unspecified organ involvement status Antiphospholipid antibody syndrome HEPATITIS B SURFACE ANTIGEN Routine 10/19/2018 3:52 PM EDT Systemic lupus erythematosus, unspecified SLE type, unspecified organ involvement status Antiphospholipid antibody syndrome CARDIOLIPIN ANTIBODY SCREEN Routine 10/19/2018 3:52 PM EDT Systemic lupus erythematosus, unspecified SLE type, unspecified organ involvement status Antiphospholipid antibody syndrome SEDIMENTATION RATE Routine 10/19/2018 3: 52 PM EDT Systemic lupus erythematosus, unspecified SLE type, unspecified organ involvement status Antiphospholipid antibody syndrome CBC (WITH DIFF) Routine 10/19/2018 3:52 PM EDT Systemic lupus erythematosus, unspecified SLE type, unspecified organ involvement status Antiphospholipid antibody syndrome C3 COMPLEMENT Routine 10/19/2018 3:52 PM EDT Systemic lupus erythematosus, unspecified SLE type, unspecified organ involvement status Antiphospholipid antibody syndrome C4 COMPLEMENT Routine 10/19/2018 3:52 PM EDT Systemic lupus erythematosus, unspecified SLE type, unspecified organ involvement status Antiphospholipid antibody syndrome BETA 2 MICROGLOBULIN, SERUM Routine 10/19/2018 3:52 PM EDT Systemic lupus erythematosus, unspecified SLE type, unspecified organ involvement status Antiphospholipid antibody syndrome COMPREHENSIVE METABOLIC PANEL (NON-FASTING) Routine 10/19/2018 3:52 PM EDT Systemic lupus erythematosus, unspecified SLE type, unspecified organ involvement status Antiphospholipid antibody syndrome PROTEIN/CREATININE RATIO, URINE Routine 10/19/2018 3:46 PM EDT Systemic lupus erythematosus, unspecified SLE type, unspecified organ involvement status Antiphospholipid antibody syndrome URINALYSIS WITH REFLEX CULTURE Routine 10/19/2018 3:46 PM EDT Systemic lupus erythematosus, unspecified SLE type, unspecified organ involvement status Antiphospholipid antibody syndrome High risk medication use URINALYSIS WITHOUT MICROSCOPIC Routine 10/19/2018 3:46 PM EDT Systemic lupus erythematosus, unspecified SLE type, unspecified organ involvement status Antiphospholipid antibody syndrome documented in this encounter Results * Differential, Automated (10/19/2018 3:52 PM EDT) Neutrophils % 57.3 % [facility] Neutr Abs (ANC) 2.95 1.70 - 6.10 x10(3)/[facility] Lymphocytes % 31.1 % [facility] Lymphocytes Abs 1.6 0.9 - 3.2 x10(3)/[facility] Monocytes % 8.3 % [facility] Monocyte Abs 0.4 0.3 - 0.9 x10(3)/[facility] Eosinophils % 1.9 % [facility] Eosinophils Abs 0.1 0.0 - 0.4 x10(3)/[facility] Basophils % 1.2 % [facility] Basophils Abs 0.1 0.0 - 0.1 x10(3)/[facility] Immature Gran % 0.20 % [facility] Comment: Immature granulocytes(IG's)percentage and absolute count will include metamyelocytes, myelocytes, and promyelocytes. Blood smears from CBCs yielding IG's will be scanned manually for concordance. If this scan disagrees with the automated IG or if promyelocytes are noted, a manual differential will be performed. [place] Gran Abs 0.01 0.00 - 0.04 x10(3)/[facility] LAB[facility] Blood specimen (specimen) 10/19/2018 3:52 PM EDT 10/19/2018 4:03 PM EDT Narrative Resulting Agency Comment Spec In Lab Linh Candelario MD HEMATOLOGY ORDEugene AMOR [facility] [place] [address] * (ABNORMAL) Hemogram (10/19/2018 3:52 PM EDT) [facility] WBC 5.2 4.0 - 9.5 x10(3)/[facility] LAB[facility]ORY RBC 3.90(L) 4.00 - 5.21 x10(6)/[facility] Hemoglobin 13.2 11.7 - 15.5 gm/dL [facility] Hematocrit 37.9 35.7 - 45.8 % [facility] MCV 97.2(H) 82.6 - 94.4 [facility] MCH 33.8(H) 27.1 - 32.0 pg [facility] MCHC 34.8 31.7 - 35.0 gm/dL [facility] Platelets 239 145 - 357 x10(3)/[facility] RDWSD 48.6(H) 37.0 - 46.0 [facility] RDWCV 13.6 11.5 - 14.1 % [facility] MPV 10.7 7.6 - 12.9 [facility] nRBC % Auto 0.0 % [facility] nRBC Abs Auto 0.000 0.000 - 0.000 x10(3)/[facility] Blood specimen (specimen) 10/19/2018 3:52 PM EDT 10/19/2018 4:03 PM EDT Narrative Resulting Agency Comment Spec In Lab Linh Candelario MD HEMATOLOGY ROLAND AMOR [facility] [place] [address] * (ABNORMAL) Silica Clotting Time (10/19/2018 3:52 PM EDT) Pathologist [facility] Silica Clotting Time 1.60(H) <=1.16 ratio [facility] Comment: A result greater than 1.16 TR is consistent with the presence of lupus anticoagulant. Values of 1.16 to 1.24 in this assay are not definitively positive or negative for the presence of a lupus anticoagulant. The SCT ratio may be falsely elevated in patients on anticoagulants, especially heparins and direct oral anticoagulants. An abnormal test result in an anticoagulated patient must therefore be interpreted with caution, and repeat testing after discontinuing anticoagulation may be appropriate. Blood specimen (specimen) 10/19/2018 3:52 PM EDT 10/19/2018 4:03 PM EDT Narrative Resulting Agency Comment Spec In Lab Linh Candelario MD HEMATOLOGY ROLAND AMOR Performing Organization Address [facility] de Phone Number [facility] [place] [address] * (ABNORMAL) dRVVT (10/19/2018 3:52 PM EDT) [facility] dRVVT 1.72(H) <=1.20 IU/mL [facility] Comment: A result greater than 1.20 TR is consistent with the presence of lupus anticoagulant. Values of 1.20 to 1.30 in this assay are not definitively positive or negative for the presence of a lupus anticoagulant. The DRVVT ratio may be falsely elevated in patients on anticoagulants, especially heparins and direct oral anticoagulants. An abnormal test result in an anticoagulated patient must therefore be interpreted with caution, and repeat testing after discontinuing anticoagulation may be appropriate. Blood specimen (specimen) 10/19/2018 3:52 PM EDT 10/19/2018 4:03 PM EDT Narrative Resulting Agency Comment Spec In Lab Linh Candelario MD HEMATOLOGY ROLAND AMOR Performing Organization Address [facility] Co de Phone Number [facility] [place] [address] * (ABNORMAL) Comprehensive metabolic panel (non-fasting) (10/19/2018 3:52 PM EDT) Glucose Lvl 92 65 - 199 mg/dL [facility] Comment:Diabetes: >=200 mg/d L plus symptoms BUN 15 8 - 18 mg/dL [facility] Creatinine 0.80 0.70 - 1.20 mg/dL [facility] Sodium 141 135 - 145 mmol/L [facility] Potassium 3.8 3.5 - 5.0 mmol/L [facility] Comment: Please note: ??Patients with WBC >100,000 may have falsely elevated Potassium levels. ??For accurate Potassium quantification in these patients send serum separator tube (gold top) for subsequent determinations. ??Contact the Clinical Chemistry Laboratory if there are any questions. Chloride 104 98 - 107 mmol/L [facility] CO2 27 22 - 31 mmol/L [facility] Anion Gap 10 5 - 15 mmol/L [facility] Calcium 9.6 8.5 - 10.5 mg/dL [facility] Total Protein 7.5 6.1 - 8.0 gm/dL [facility] Albumin 4.4 3.2 - 5.2 gm/dL [facility] AST 18 0 - 30 unit/L [facility] ALT 9 0 - 30 unit/L [facility] Alk Phos 114(H) 40 - 104 unit/L [facility] Total Bilirubin 0.3 0.2 - 1.3 mg/dL [facility] Estimated GFR 88 >=60 mL/min/1. 73 m?? [facility] Comment: The eGFR was calculated using the CKD-EPI equation. As with all creatinine based estimates of kidney function, eGFR values calculated with the CKD-EPI equation are not accurate in patients with acute kidney failure, extremes of body mass or the acutely ill. http://[employer]/DHMCnkf eGFR 102 >=60 mL/min/1. 73 m?? [facility] Comment: The eGFR was calculated using the CKD-EPI equation. As with all creatinine based estimates of kidney function, eGFR values calculated with the CKD-EPI equation are not accurate in patients with acute kidney failure, extremes of body mass or the acutely ill. http://[employer]/[facility]MCnkf Blood specimen (specimen) 10/19/2018 3:52 PM EDT 10/19/2018 4:03 PM EDT Narrative Resulting Agency Comment Spec In Lab Kalli Brett Jesus DO CHEMISTRY ORDERABL ES Performing Organization Address [facility] Co de Phone Number [facility] [place] [address] * (ABNORMAL) Sedimentation rate (10/19/2018 3:52 PM EDT) Sed Rate 22(H) 0 - 20 mm/hr [facility] Blood specimen (specimen) 10/19/2018 3:52 PM EDT 10/19/2018 4:03 PM EDT Narrative Resulting Agency Comment Spec In Lab Kalli Brett Mabryew HEMATOLOGY ORDERAB LES Performing Organization Address [facility] Co de Phone Number [facility] [place] [address] * CRP, acute inflammation (10/19/2018 3:52 PM EDT) CRP 1.3 <=4.9 mg/L [facility] Blood specimen (specimen) 10/19/2018 3:52 PM EDT 10/19/2018 4:03 PM EDT Narrative Resulting Agency Comment Spec In Lab Kalli Brett Jesus DO CHEMISTRY ORDERABL ES Performing Organization Address [facility] Co de Phone Number [facility] [place] [address] * C3 Complement (10/19/2018 3:52 PM EDT) C3 Complement 124 90 - 180 mg/dL [facility] Blood specimen (specimen) 10/19/2018 3:52 PM EDT 10/19/2018 4:03 PM EDT Narrative Resulting Agency Comment Spec In Lab Kalli Lee DO CHEMISTRY ORDERABL ES Performing Organization Address [facility]/ZIP Co de Phone Number [facility] [place] [address] * C4 Complement (10/19/2018 3:52 PM EDT) C4 Complement 25 10 - 40 mg/dL [facility] Blood specimen (specimen) 10/19/2018 3:52 PM EDT 10/19/2018 4:03 PM EDT Narrative Resulting Agency Comment Spec In Lab Kalli Lee DO CHEMISTRY ORDERABL ES Performing Organization Address [facility] Co de Phone Number [facility] [place] [address] * DNA Antibody (Double-Stranded) (10/19/2018 3:52 PM EDT) DNA Ab (DS) Neg Neg [facility] Blood specimen (specimen) 10/19/2018 3:52 PM EDT 10/20/2018 7:25 AM EDT Narrative Resulting Agency Comment Spec In Lab Kalli Lee DO CHEMISTRY ORDERABL ES Performing Organization Address [facility] Co de Phone Number [facility] [place] [address] * (ABNORMAL) Cardiolipin Antibody Screen (10/19/2018 3:52 PM EDT) Cardiolipin IgG 24.3(H) <=14.9 GPL unit(s) [facility] Comment: Ranges ?? GPL ------ ?? --- Negative ?? <=14.9 Indeterminate ??15.0 - 20.0 Low/Medium Positive 20.1 - 80.0 High Positive ??>80.0 Cardiolipin IgM <9.4 <=12.5 MPL unit(s) [facility] Comment: Ranges ?? MPL ------ ?? --- Negative ?? <=12.5 Indeterminate ??12.6 - 20.0 Low/Medium Positive 20.1 - 80.0 High Positive ??>80.0 Blood specimen (specimen) 10/19/2018 3:52 PM EDT 10/20/2018 7:23 AM EDT Narrative Resulting Agency Comment Spec In Lab Kalli Lee DO IMMUNOLOGY ORDERAB LES Performing Organization Address [facility] Co de Phone Number [facility] [place] [address] * (ABNORMAL) Beta 2 Microglobulin, serum (10/19/2018 3:52 PM EDT) Beta2 Microglob 2.7(H) 0.8 - 2.2 mg/L [facility] Blood specimen (specimen) 10/19/2018 3:52 PM EDT 10/19/2018 4:03 PM EDT Narrative Resulting Agency Comment Spec In Lab Kalli Lee DO CHEMISTRY ORDERABL ES Performing Organization Address [facility] Phone Number [facility] [place] [address] * Hepatitis B Core Antibody, Total (10/19/2018 3:52 PM EDT) Hep B Core Ab Negative Negative [facility] Blood specimen (specimen) 10/19/2018 3:52 PM EDT 10/19/2018 4:03 PM EDT Narrative Resulting Agency Comment Spec In Lab Kalli Lee DO CHEMISTRY ORDERABL ES Performing Organization Address [facility] Co de Phone Number [facility] [place] [address] * Hepatitis B Surface Antibody (10/19/2018 3:52 PM EDT) HepB Surface Ab Quant <3.5 IU/L [facility] Comment: HepB Surface Ab Quant: Unvaccinated: < 8.5 IU/L Vaccinated: > 11.5 IU/L HepB Surface Ab Negative [facility] Comment: Patient is presumed to be not vaccinated or immune to HBV infection. Expected Results: Vaccinated: Positive Unvaccinated: Negative Blood specimen (specimen) 10/19/2018 3:52 PM EDT 10/19/2018 4:03 PM EDT Narrative Resulting Agency Comment Spec In Lab Kalli Lee DO IMMUNOLOGY ORDERAB LES Performing Organization Address [facility] Co de Phone Number [facility] [place] [address] * Hepatitis B Surface Antigen (10/19/2018 3:52 PM EDT) HepB Surface Ag Negative Negative [facility] Blood specimen (specimen) 10/19/2018 3:52 PM EDT 10/19/2018 4:03 PM EDT Narrative Resulting Agency Comment Spec In Lab Kalli Lee DO CHEMISTRY ORDERABL ES Performing Organization Address [facility] Co de Phone Number [facility] [place] [address] * Hepatitis C Antibody (10/19/2018 3:52 PM EDT) Hepatitis C Ab Negative Negative [facility] Blood specimen (specimen) 10/19/2018 3:52 PM EDT 10/19/2018 4:03 PM EDT Narrative Resulting Agency Comment Spec In Lab Kalli Lee DO IMMUNOLOGY ORDERAB LES Performing Organization Address [facility] Co de Phone Number [facility] [place] [address] * HIV Screen, 4th Generation ([facility]/CGP/APD) (10/19/2018 3:52 PM EDT) HIV-1/2 Ab and Ag Negative Negative [facility] Comment: This 4th Generation HIV test [...] Resulting Agency Comment Spec In Lab Kalli Lee DO IMMUNOLOGY ORDERAB LES [facility] [place] [address] * QuantiFERON-TB Gold (10/19/2018 3:52 PM EDT) QFT Nil 0.050 IU/mL [facility] QFT TB Ag1-Nil -0.010 IU/mL [facility] QFT TB Ag2-Nil 0.000 IU/mL [facility] QFT Mitogen-Nil >10.000 IU/mL [facility] Quantiferon TB Negative Negative [facility] Quantiferon TB Interp M. tuberculosis infection NOT likely A negative specimen should have a TB1 Ag minus Nil value and TB2 Ag minus Nil value of less than 0.35 IU/mL OR a TB1 Ag minus Nil or TB2 Ag minus Nil value greater than or equal to 0.35 IU/mL AND a TB Ag minus Nil value from the same tube of less than 25% of the Nil value. A negative specimen must also have a mitogen minus Nil value greater than or equal to 0.5 IU/mL. A negative QFT-Plus result does not preclude the possibility of M. tuberculosis infection. False negative results can occur due to stage of infection (specimen obtained prior to the development of immune response), co-morbid conditions which affect immune function, or other immunological factors. [facility] Comment: The performance of the QFT-Plus assay has not been extensively evaluated with specimens from the following individuals: Individuals who have impaired or altered immune functions, such as those who have HIV infection or AIDS, those who have transplantation managed with immunosuppressive treatment or others who receive immunosuppressive drugs (e.g., corticosteroids, methotrexate, azathioprine, cancer chemotherapy), those who have other clinical conditions, such as diabetes, silicosis, chronic renal failure, and hematological disorders (e.g., leukemia and lymphomas), or those with other specific malignancies (e.g., carcinoma of the head or neck and lung). Individuals younger than age 17 years women. Diagnosis of, or the exclusion of tuberculosis disease, and assessment of Latent Tuberculosis Infection (LTBI) requires a combination of epidemiological, historical, Medical and diagnostic findings that should be taken into account when interpreting QFT-Plus results. Blood specimen (specimen) 10/19/2018 3:52 PM EDT 10/20/2018 12:49 PM EDT Narrative Resulting Agency Comment Spec In Lab Kalli Lee DO CHEMISTRY ORDERABL ES Performing Organization Address City/State/[facility] Co de Phone Number [facility] [place] [address] * Urinalysis with reflex Culture (10/19/2018 3:46 PM EDT) Glucose UA Negative Negative mg/dL [facility] Protein UA Negative Negative mg/dL [facility] Bilirubin UA Negative Negative mg/dL [facility] Comment: Clinical correlation required for positive Urine Bilirubin results as false positive may occur with some drugs and drug related products. If a false positive is suspected a serum total bilirubin should be considered if clinically indicated. Urobilinogen UA Normal Normal mg/dL [facility] pH UA 6.0 5.0 - 8.0 [facility] Blood UA Negative Negative mg/dL [facility] Ketones UA Negative Negative mg/dL [facility] Nitrite UA Negative Negative [facility] Leukocytes UA Negative Negative mcL [facility] Appearance UA Clear Clear [facility] Spec [place] UA 1.010 1.002 - 1.030 [facility] Color UA Straw Yellow [facility] Culture Reflexed No [facility] Urine specimen (specimen) 10/19/2018 3:46 PM EDT 10/19/2018 3:52 PM EDT Narrative Resulting Agency Comment Spec In Lab Kalli Lee DO URINE ORDERABLES Performing Organization Address [facility]/ZIP Co de Phone Number [facility] [place] [address] * Urinalysis without microscopic (10/19/2018 3:46 PM EDT) Glucose UA Negative Negative mg/dL [facility] Protein UA Negative Negative mg/dL [facility] Bilirubin UA Negative Negative mg/dL [facility] Comment: Clinical correlation required for positive Urine Bilirubin results as false positive may occur with some drugs and drug related products. If a false positive is suspected a serum total bilirubin should be considered if clinically indicated. Urobilinogen UA Normal Normal mg/dL [facility] pH UA 6.0 5.0 - 8.0 [facility] Blood UA Negative Negative mg/dL [facility] Ketones UA Negative Negative mg/dL [facility] Nitrite UA Negative Negative [facility] Leukocytes UA Negative Negative mcL [facility] Appearance UA Clear Clear [facility] Spec [place] UA 1.010 1.002 - 1.030 [facility] Color UA Straw Yellow [facility] Urine specimen (specimen) 10/19/2018 3:46 PM EDT 10/19/2018 3:52 PM EDT Narrative Resulting Agency Comment Spec In Lab Kalli Lee DO URINE ORDERABLES Performing Organization Address [facility]/ZIP Co de Phone Number [facility] [place] [address] * (ABNORMAL) Protein/Creatinine Ratio, urine (10/19/2018 3:46 PM EDT) U Creatinine 38 mg/dL [facility] U Protein Ran 18(H) 0 - 12 mg/dL [facility] Prot/Cre Ratio 0.5 ratio [facility] Urine specimen (specimen) 10/19/2018 3:46 PM EDT 10/19/2018 3:53 PM EDT Narrative Resulting Agency Comment Spec In Lab Kalli Lee DO URINE ORDERABLES Performing Organization Address City/State/[facility] Co de Phone Number [facility] [place] [phone] documented in this encounter Visit Diagnoses Diagnosis Systemic lupus erythematosus, unspecified SLE type, unspecified organ involvement status Antiphospholipid antibody syndrome Primary hypercoagulable state High risk medication use Encounter for long-term (current) use of other medications documented in this encounter Care Teams Battery Charger Relationship Specialty Start Date End Date Mckenna Genao, SUELLEN [address] [place] [address] PCP - General Family Medicine 05/07/17 08/08/21 documented as of this encounter
--- OUTSIDE RECORDS SUMMARY | 2023-11-04 15:16 | XMS_ITS | Encounter Summary ---
[place] [address] Care Team Providers Care Logging Worker Name Role Phone BirgitMckenna SUELLEN Primary Care Provider [phone] Reason for Visit * Reason Onset Date Comments Medication Refill 10/19/2019 Encounter Details Date Type Department Care Team (Late st Contact Info) Description 10/19/2019 [place] [phone] Bernie Lancaster RN Systemic lupus erythematosus, unspecified SLE type, unspecified organ involvement status (Primary Dx) Social History Tobacco Use Types [...] encounter Miscellaneous Notes * Telephone Encounter - Bernie Lancaster RN - 10/19/2019 12:38 PM EDT Rec'd call from patient, seeking refill or plaquenil. RN called to confirm pharmacy. In discussion with patient, she currently does not have pharmacy benefits, and needs new prescription sent to [facility] to use coupons. Sending to on-call provider. documented in this encounter Plan of Treatment Upcoming Encounters Date Type Department Care Team (Late st Contact Info) Description 11/11/2023 3:00 AM EDT Anti-Coag Telephone Visit [facility] [place] [address] documented as of this encounter Visit Diagnoses Diagnosis Systemic lupus erythematosus, unspecified SLE type, unspecified organ involvement status- Primary documented in this encounter Care Teams Logging Worker Relationship Specialty Start Date End Date Mckenna Genao APRN [address] [place] [address] PCP - General Family Medicine 05/07/17 08/08/21 documented as of this encounter
--- OUTSIDE RECORDS SUMMARY | 2023-11-04 15:16 | XMS_ITS | Encounter Summary ---
[place] [address] Care Team Providers Care Graduate Advisor Name Role Phone BirgitShebamichael KEN Primary Care Provider [phone] Encounter Details Date Type Department Care Team (Late st Contact Info) Description 02/04/2018 1:00 PM EDT [place] [phone] Alvaro Siegel MD [facility] [place] [place] [address] Lower urinary tract symptoms (LUTS) Social History Tobacco Use Types Packs/Day Years [...] Sign Reading Time Taken Comments Blood Pressure 110/63 02/04/2018 1:18 PM EDT Pulse 87 02/04/2018 1:18 PM EDT Temperature 36.6 ??C (97.8 ??F) 02/04/2018 1:18 PM ED T Respiratory Rate - - Oxygen Saturation 97% 02/04/2018 1:18 PM EDT Inhaled Oxygen Concentration - - Weight - - Height - - Body Mass Index - - documented in this encounter Progress Notes * Alvaro Siegel MD - 02/04/2018 1:00 PM EDT Patient Name: Cecilia Dumont Date of Service: 02/04/2018 Primary Care Provider: Mckenna Genao APRN Referring Provider: No referring provider defined for this encounter. Reason for Visit: Cecilia Dumont is a 48 y.o. female who is referred for evaluation of gross hematuria. HPI: From lat visit Cecilia Dumont is a 47 y.o. year old female with a PMH of CVA, lupus, anti- phospholipid antibody syndrome, and cardiomyopathy recently admitted for an AVR. She had been on coumadin at home and was started on a heparin infusion in preparation for her valvereplacement. She began having gross hematuria. It was originally 'grape' colored, then light red. There were no clots. She has no pain, no dysuria. She has never had this before. She has no Urologic history; she has never had stones or any bladder/kidney issues. She has had a few UTIs but none lately. She smoked remotely in high school but was never a regular tobacco user. She was seen as an inpatient and considering her more pressing issues the decision was made to see her as an outpatient for a formal hematuria work-up. Since her surgery she has been doing well, occasional blood since surgery but not much. She noted blood when INR was quite elevated (2.6 range) Minor smoking history. As a teenager, only small amounts The patient's genitourinary history is otherwise negative for urologic issues, including recurrent UTI, nephrolithiasis and urologic malignancies. The patient denies any associated changes in fevers,chills, nausea, vomiting, bowel or bladder symptoms, diarrhea or constipation. Work-up thus far has included 07/20/17 - CTU 07/2017 - Negative cysto 02/2018 - NO hematuria since last visit. Doing well. No other changes Currently the patient has no irritative symptoms with minimal frequency and nocturia. The urinary stream is good and the bladder is emptied completely. Appetite is good weight is stable. There is no bone pain. Past Medical History: Past Medical History: Diagnosis [...] Past Surgical History: Procedure Laterality Date ??? @REPLACE AORTIC VALVE, OPEN, W\CPB, W\PROSTHETIC VALVE (WRVU 41.32) N/A 05/25/2017 Performed by Kuldeep Conner MD at [facility] MAIN OR ??? CARDIAC CATHETERIZATION N/A 04/01/2012 Performed by Devon Renner MD at [facility] CATH LABS ??? DILATION AND CURETTAGE OF UTERUS ??? JOINT REPLACEMENT ??? LEEP ??? MOUTH SURGERY ??? PRO REPLACE AORT VALV, PROSTH VALV N/A 05/25/2017 @REPLACE AORTIC VALVE, OPEN, W\CPB, W\PROSTHETIC VALVE (WRVU 41.32) performed by Kuldeep Conner MD at [facility] MAIN OR ??? TUBAL LIGATION ??? TUBAL LIGATION Family History: No family history of disease, benign or malignant Social History: Minimal EtOH. Minimal smoking. Medications: Reviewed in EMR Allergies: Reviewed in EMR Systems review: HEENT: Denies problems with vision, hearing, runny nose, epistaxis, sore throat, hoarseness Cardiovascular: Denies Chest pain, palpitations, shortness of breath, ankle swelling, claudication Respiratory: Denies cough, phlegm, hemoptysis,wheeze, Gastrointestinal: Denies nausea, difficulty swallowing, vomiting, hematemesis, constipation, diarrhea, blood per rectum Neurological: Denies dizziness, double vision, headache, weakness of one side of the body or the other,sudden loss of vision in one eye, Bones and muscles: Denies bone pain, radiating pain, muscle weakness or sore ness. All other systems negative. Physical Exam: Vital Signs are reviewed. The patient appears healthy and in no distress. Non-labored breathing HR normal Lab values are reviewed in the EMR and and are as noted in the history. 05/2018 - Ucx Negative, UA with RBC, leuks 02/2019 Urine dip negative, UA pending X-rays Have been independently reviewed and are as noted in the history. 07/20/2017 - CTU with no stones, no hydro / filling defects. Bilateral simple renal cysts, final read pending Impression: #1: Gross hematuria , negative w/u 07/2017 - resolved #2: Systemic anticoagulation #3: S/p recent AVR #4: SLE Plan: # UA today, if negative then annual UA with PCP, refer back for gross hematuria or microscopic hematuria lasting beyond 3 years per AUA guidelines documented in this encounter Plan of Treatment Upcoming Encounters Date Type Department Care Team (Late st Contact Info) Description 11/11/2023 3:00 AM EDT Anti-Coag Telephone Visit [facility] [place] [address] documented as of this encounter Procedures Procedure Name Priority Date/Time Associated Diagnosis Comments _URINALYSIS WITH MICROSCOPIC Routine 02/04/2018 5:06 PM EDT Lower urinary tract symptoms (LUTS) documented in this encounter Results * _Urinalysis with microscopic (02/04/2018 5:06 PM EDT) Glucose UA Negative Negative mg/dL [facility] Protein UA Negative Negative mg/dL [facility] Bilirubin UA Negative Negative mg/dL [facility] Comment: Clinical correlation required for positive Urine Bilirubin results as false positive may occur with some drugs and drug related products. If a false positive is suspected a serum total bilirubin should be considered if clinically indicated. Urobilinogen UA Normal Normal mg/dL [facility] pH UA 6.0 5.0 - 8.0 [facility] Blood UA Negative Negative mg/dL [facility] Ketones UA Negative Negative mg/dL [facility] Nitrite UA Negative Negative [facility] Leukocytes UA Negative Negative [facility] Appearance UA Clear Clear [facility] Spec [place] UA 1.008 1.002 - 1.030 [facility] Color UA Straw Yellow [facility] RBC UA <1 0 - 4 /HPF [facility] WBC UA 1 0 - 5 /HPF [facility] Squam Epith UA <1 <=4 /HPF [facility] Urine specimen (specimen) 02/04/2018 5:06 PM EDT 02/04/2018 5:36 PM EDT Narrative Resulting Agency Comment Spec In Lab Alvaro Siegel MD URINE ORDERABLES Performing Organization Address City/State/[facility] Co de Phone Number [facility] [place] [address] documented in this encounter Visit Diagnoses Diagnosis Lower urinary tract symptoms (LUTS) Other symptoms involving urinary system documented in this encounter Care Teams Graduate Advisor Relationship Specialty Start Date End Date Mckenna Genao, SUELLEN [address] [place] [address] PCP - General Family Medicine 05/07/17 08/08/21 documented as of this encounter
--- OUTSIDE RECORDS SUMMARY | 2023-11-04 15:16 | XMS_ITS | Encounter Summary ---
[place] [address] Care Team Providers Care Way Inspector Name Role Phone TerranceMckenna hines SUELLEN Primary Care Provider [phone] Reason for Visit * Reason Onset Date Comments Medication Refill 11/11/2018 Encounter Details Date Type Department Care Team (Late st Contact Info) Description 11/11/2018 [place] [phone] Tommy Raymundo RN Social History Tobacco Use Types Packs/Day [...] 11/11/2023 3:00 AM EDT [place] [address] documented as of this encounter Visit Diagnoses Not on filedocumented in this encounter Care Teams Way Inspector Relationship Specialty Start Date End Date Mckenna Genao, SUELLEN [address] [address] PCP - General Family Medicine 05/07/17 08/08/21 documented as of this encounter
--- OUTSIDE RECORDS SUMMARY | 2023-11-04 15:16 | XMS_ITS | Encounter Summary ---
Author Organization [facility] [place] [address] Care Team Providers Care Cement Or Concrete Finishing Supervisor Name Role Phone BirgitMckenna SUELLEN Primary Care Provider [phone] Encounter Details Date Type Department Care Team (Late st Contact Info) Description 07/29/2017 [place] [phone] Alvaro Siegel MD [facility] [place] [address] Social History Tobacco Use Types Packs/Day Years [...] encounter Miscellaneous Notes * Telephone Encounter - Alvaro Siegel MD - 07/29/2017 11:44 AM EDT I called with results from last visit which did not identify a cause for her hematuria. I will see her back in 6 months to check in and repeat urinalysis. documented in this encounter Plan of Treatment Upcoming Encounters Date Type Department Care Team (Late st Contact Info) Description 11/11/2023 3:00 AM EDT [place] [address] documented as of this encounter Visit Diagnoses Not on filedocumented in this encounter Care Teams Cement Or Concrete Finishing Supervisor Relationship Specialty Start Date End Date Mckenna Genao, SUELLEN [address] [place] [address] PCP - General Family Medicine 05/07/17 08/08/21 documented as of this encounter
--- OUTSIDE RECORDS SUMMARY | 2023-11-04 15:16 | XMS_ITS | Encounter Summary ---
Author [place] [address] Care Team Providers Care Lens Edger Name Role Phone Mckenna Genao APRN Primary Care Provider [phone] Reason for Visit * Consultation (Routine) - Closed Specialty Diagnoses / Procedures Referred By Contkesha t Referred To Contact Rheumatology Diagnoses CHITO systemic lupus/antiphospholipid antibody syndrome, needs September/Octoberappt with Shazia Granados MD [facility] RHEUMATOLOGY [address] [place] [id number] Kalli Lee, [facility] [place] [place] [address] Referral ID Status Reason Start Date Expiration Date Visits Re quested Visits Authorized [id number] Closed 07/05/2018 07/05/2019 1 1 Encounter Details Date Type Department Care Team (Late st Contact Info) Description 10/19/2018 2:00 PM EDT Office [place] [address] Kalli Lee, [facility] [place] [place] [address] Linh Candelario MD [facility] DR RHEUMATOLOGY DEPT [facility] [place] [address] Systemic lupus erythematosus, unspecified SLE type, unspecified [...] Sign Reading Time Taken Comments Blood Pressure 129/70 10/19/2018 2:55 PM EDT Pulse 56 10/19/2018 2:55 PM EDT Temperature - - Respiratory Rate - - Oxygen Saturation 99% 10/19/2018 2:55 PM EDT Inhaled Oxygen Concentration - - Weight 74.2 kg (163 lb 9.6 oz) 10/19/2018 2:55 P M EDT Height 160 cm (5' 3) 10/19/2018 2:55 PM EDT Body Mass Index 28.98 10/19/2018 2:55 PM EDT documented in this encounter Progress Notes * Kalli Lee DO - 10/19/2018 2:00 PM EDT Rheumatology Outpatient Consultation Note Reason for Consult: The patient is seen at the request of Dr. Mckenna Genao, [employer] for evaluation and treatment of sle Pt previously followed by dr Lozada/Yara/Geraldine Rheumatologic history: # SLE with discoid rash, arthritis, oral [...] sc and daily folic acid IN 10/2018 ?? 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 - On lifelong anticoagulation with coumadin. ?? # Cardiomyopathy with pleuropericarditis. -Endomyocardial biopsy negative for viral changes, no changes of hydroxychloroquine myopathy or other specific etiology. -Recovery of ejection fraction by echocardiogram 2005. -Cardiac cath 03/2012 for evaluation of SOB- normal coranary arteries, Ef 64%, ?peicardial constriction given equalization of Rt and Lt sided pressures - May 24 2017, Aortic valve replacement ?? # On treatment for OA while on prednisone with Actonel and calcium - DEXA 2001 spine -1.0, hip -0.6. Actonel DC'd 10/2008. ?? 5. Osteonecrosis of femur and tibia s/p [...] further episodes of bleeding since her cystoscopy. History of Present Illness: Cecilia Dumont is a 48 y.o. female who presents today for evaluation of sle and aplas CHITO from Dr Chandler. She is on mtx, plaquenil and coumadin, Here today to establish care as her previous rheumatology provider has retired. Joints symptoms- Patient reports pain in the joints of the hand mostly in the MCPs and PIPs along with pain and significant morning stiffness that lasts for hours. Also soreness in the MTPs in the morning, with difficulty walking. Joint symptoms tend to improve as the day progresses. Activity helps. She reports being on hydroxychloroquine 200 mg p.o. twice daily for many years and has had minimal improvement in her joint symptoms. She was started on methotrexate 10 mg weekly and daily folic acidat her last visit with Dr. Chandler, 2 months ago. She has been experiencing nausea with methotrexate the last 4 to 3 days post dosing and decreased appetite. she reports being on methotrexate and Plaquenil for her joint symptoms before her pregnancies with good control of her symptoms. Although nausea has always been an issue with methotrexate. Patient also complains of bilateral knee pain for years.. Pain is constant, also with some swelling. She has had bilateral total knee replacements in 2004 because of osteonecrosis in the femur. She has not followed up with orthopedics since then. She started experiencing right hip pain in the past few months. She was [place] [facility] [place] yet to see them. For joint symptom control she has been taking Tylenol 4000 mg/day, Hot/ Ice packs. Not sure if thisis helping. Cannot take NSAIDs due to blood thinners. Skin rash She currently denies any skin rash. She is has sun sensitivity. She reports she needs to be compliant with sunscreen can be better. She reports history of mouth sores that crop up few times a month and resolve on its own. She denies serositis symptoms today. She does have history of raynaud's every winter she denies any ulcers of the finger tips.. This can get worse every winter. She does have a history of migraine and previously followed by neurology and reports getting shots in her neck that helped with her symptoms. This has been acting up lately. Yet to see neurology. She reports having 2 healthy children, and 3 miscarriages. No history of APLS and is on lifelong Coumadin. Rheumatic history (x) means positive Iritis Dactylitis Pleuritis x Pericarditis x Oral / Nasal Ulcers x PE/DVT x Spontaneous X- 3 of them- 2 in first 12 weeks and 1 in 2nd trimester Discoid SLE STD Raynaud???s X Psoriasis Seizures Anemia Leucopenia Thrombocytopenia Psychosis from a medical condition Health Care Maintenance Date Next Due Influenza vaccine Pneumonia vaccine TB Screen (PPD/QGA) DXA HCQ Eye Exam Viral Hepatitis Screen Review of Systems: X = positive response. Comments are only made for responses that are changed from previous, not discussed in HPI, or otherwise require clarification. Systemic Comments 1. Generalized pain x 2. Fatigue/tiredness x 3. Fevers 4. Chills x 5. Night sweats x 6. Recent weight loss 7. Recent Weight gain Head and neck 8. Headaches X 9. Neck pain/stiffness X 10. Lymphadenopathy 11. Ocular erythema Blurry vision with CHARLES 12. Xerophthalmia 13. Gritty eyes 14. Eye pain 15. Photophobia 16. Oral sores x 17. Xerostomia 18. Jaw claudication Cardiopulmonary 19. Chest discomfort 20. Dyspnea 21. Cough 22. Hemoptysis Gastrointestinal 23. Dysphagia 24. Heartburn 25. Nausea x 26. Emesis 27. Abdominal pain x 28. Hematochezia 29. Diarrhea 30. Constipation Genitourinary 31. Hematuria 32. Dysuria Musculoskeletal 33. Muscle weakness 34. Myalgia 35. Shoulder pain 36. Raynaud's x Neuropsychiatric 37. Paresthesia X- Long time 38. Dysesthesia 39. Dizziness/vertigo 40. Anxiety x 41. Depression x 42. Cognitive problems 43. Initial insomnia 5 hrs sleep 44. Night awakenings 45. Nonrestorative sleep Dermatologic 46. Xerosis cutis 47. Photosensitivity 48. Rash PMHX sle-discoid rash, arthritis, oral/nasal ulcertions, raynauds, pericarditis -treated cyclophosphomide, steorids and rituxan (05/15, 04/14/08 and 05/01/08 and 04/2009 Cardiomyopathy w pleuropericarditis-enodmyocardial bx neg for viral etiology, no hcq myopathy dexa 2001 was on prednsone and treated w actonel from [id number] osteonecorosis of femur and tibia s/p bl tka Alveolar hemorrohage assoc w pulm edema and lovenox use Aplas cva 1990, and 3 miscarriages htn hpl sanaz Acne Migraines Aortic insuff w chf SurgHX LEEP, no. For last 20 years Bilateral TKA Aortic valve replacement in 2018 Family Hx: Family History Problem Relation Age of Onset ??? Coronary Artery Disease Father Biological father M:migraines, depression ra F:mi siblings: (-)scleroderma, (-)sjogren's, (-)gout Paternal GF mom had ? Lupus Mother has RA Social history Tobacco use- None Alc- very Occasionally Drug use- None. Lives in [facility]. . 2 Kids live out of area. 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 Medications Plaquenil 200 mg PO BID Methotrexate 10 mg weekly, daily folic acid Levothyroxine 150 mcg daily Metoprolol 25 mg daily Pantoprazole 40 mg daily Warfarin 7.5 mg // and rest days 5 mg Aspirin 81 mg daily Lovenox sq for procedures Allergies Allergen Reactions ??? Tramadol Upset stomach Physical Examination: BP 129/70 (Patient Position: Sitting) Pulse 56 Ht 160 cm (5' 3) Wt 74.2 kg (163 lb 9.6 oz) SpO2 99% BMI 28.98 kg/m?? General: Alert and oriented. Well developed and nourished. The patient did not appear distressed oruncomfortable. The patient ambulated without difficulty or assistance. Head: Scalp: Appeared normal. Eyes: PERRL. Extraocular muscles were intact. External Eye: No hyperemia of the conjunctiva noted Sclera: Not red. Oral cavity: Buccal Mucosa showed no ulcer. Tongue did not have an ulcer. Salivary Glands: No xerostomia was observed. No parotid swelling noted. Pharynx: Pharynx did not have an ulcer. Lymph Nodes: Cervical, supraclavicular, submandibular, preauricular, posterior auricular and submental lymph nodes were non-palpable. Lungs: Respiration rhythm and depth was normal. Clear to auscultation without rales or wheezing. Work of breathing was not increased. Cardiovascular system: Heart Rate and Rhythm: Normal. Heart Sounds: Normal. Murmur loud aortic click + Lower Extremity Edema: Not present. Abdomen: Auscultation: Abdominal auscultation revealed no abnormalities. Palpation: Abdominal palpation revealed no abnormalities. No hepatosplenomegaly. Musculoskeletal system: (???NML?? means normal; No swelling, warmth, tenderness, loss of range of motion, or deformity as applicable) Hands: MCP???s: tenderness in multiple MCPs and PIPs with mild synovitis, near complete fist on right, incomplete claw bilaterally. Wrists: Mild tenderness in bilateral wrists with pain in the on range of motion. Elbows: NML Shoulders: NML Cervical Spine: NML Thoracic Spine: NML Lumbosacral Spine: NML Hips: Right hip painful with external rotation Knees: Has bilateral vertical surgical scars on both knees, tender to palpate, not erythematous or hot. Pain with passive range of motion bilaterally Ankles: NML Feet:, MTP compression tenderness bilaterally. MTPs tender bilaterally Neurologic: Sensory & strength exams were normal. The patient exhibited 5/5 strength of the proximal upper/lower extremities and neck flexors/extensors. Skin: No rash seen Laboratory Data: Studies: 02/20 xrays hands: Periarticular osteopenia Recent lab results from 06/2018 CRP 0.09, ESR 28 creatinine 0.83, calcium 8.7, total protein 7.4 alk phos mildly elevated at 129, AST 21, ALT 12. WBC 4.2, hemoglobin 12.9, platelet 230 K. Assessment : Cecilia Dumont is a 48 y.o. female who presents today for evaluation of sle and aplas CHITO from Dr Chandler. She has long-standing history of lupus, diagnosed when patient was 21 years of age. She previously had discoid rash, arthritis, oral nasal ulcers, pleuro-pericarditis and raynaud's phenomenon, and has been on multiple therapies over the years. Inflammatory joint pain in hands and feet seems to be more symptomatic today. She has been on hydroxychloroquine 200 mg p.o. twice daily for years and was recently started on methotrexate 10 mg weekly. She unfortunately experiences side effects including nausea and decreased appetite. She reports great control of her joint symptoms on methotrexate and hydroxychloroquine before her pregnancies. I think she will benefit from switching from p.o. to subcu methotrexate to help overcome GI side effects. Patient was advised to stop p.o. methotrexate and we will start 15 mg subcu methotrexate weekly.RN teaching performed in the clinic today. She should continue daily folic acid. (Patient reports not requiring contraception as she has had LEEP procedure 20 years ago and has not had period since then.). Regarding her bilateral knee pain patient was advised to follow-up with orthopedics as previously scheduled. We discussed compliance of sun protection using sunscreens and physical barriers like widebrimmed hat and wearing long shirts and pants In the sun, given her history of increased sun sensitivity. Further testing with labs as detailed below. PLAN - Check CBC, CMP, ESR, CRP - Check C3, C4, DS DNA, UA, Urine protein: Creatinine ratio - Check baseline APLS labs - Check baseline infectious labs-hepatitis B, hepatitis C serology, HIV and quant TB - Stop PO MTX 10 mg weekly, Switch to MTX 15 mg SC weekly- RN teaching today in the clinic today, Continue daily folic acid - Continue daily Hydroxychloroquine 200 mg PO BID - Topical Diclofenac gel TID PRN for Knee pain - Follow up with Ortho for B/L knee pain and Rt Hip pain - Follow up with Neurology for CHARLES Follow up in clinic in 3 months. Patient seen and discussed with Dr. Lee. CC: Mckenna Genao APRN * Juventino Grajeda RN - 10/19/2018 2:00 PM EDT Patient Injection/Medication Education [x]Methotrexate []Orencia (abatacept) [] Simponi (golimumab) []Enbrel(etanercept) [] Cimzia (certolizumab) [] Stelara (ustekinumab) []Humira(adalimumab) []Actemra (tocilizumab) [] Benlysta [] Yes No Not Required Date & Comments Injection Form PEN [] [x] SYRINGE/VIAL [x] [] Methotrexate TEACHING METHODS Demonstration - Hands On [x] [] Video/Talking Devices [] [] Verbal/Written Material [x] [] EDUCATION Proper Storage/Disposal [x] [] Administration of Medication [x] [] Drug Monitoring (Labs needed) [x] [] Common Side effects [x] [] When to hold medication Illness/Infection/Surgery/Live Vaccines [x] [] OUTCOMES/GOALS Patient verbalizes Understanding of why they are taking Injectable medication [x] [] Patient was able to safely and correctly inject medication [x] [] Injected saline into fake skin correctly Patient not able to self-inject and Designated person performs injection safely and correctly [] [] Does Patient/Designated person need Remedial training [] [x] Remedial Training Provided [] [x] Miscellaneous Discuss PA process [] [x] [] Offer Individual Medication Services/ Offer Copay Cards [] [x] [] Needle box and Alcohol wipes provided * Kalli Lee DO - 10/19/2018 2:00 PM EDT ATTENDING ADDENDUM The patient's history was reviewed, and I interviewed and examined the patient with Dr. Candelario. I agree with her summary, findings, and plan. documented in this encounter Plan of Treatment Upcoming Encounters Date Type Department Care Team (Late st Contact Info) Description 11/11/2023 3:00 AM EDT Anti-Coag Telephone Visit [facility] [place] [address] Scheduled Orders Name Type Priority Associated Diagnoses Orde r Schedule CBC (with Diff) Lab Routine Systemic lupus erythematosus, unspecified SLE type, unspecified organ involvement status Antiphospholipid antibody syndrome High risk medication use Expected: 10/18/2018 (Approximate), Expires: 11/17/2018 Comprehensive metabolic panel (non-fasting) Lab Routine Systemic lupus erythematosus, unspecified SLE type, unspecified organ involvement status Antiphospholipid antibody syndrome High risk medication use Expected: 10/18/2018, Expires: 11/17/2018 Sedimentation rate Lab Routine Systemic lupus erythematosus, unspecified SLE type, unspecified organ involvement status Antiphospholipid antibody syndrome High risk medication use Expected: 10/18/2018 (Approximate), Expires: 10/19/2019 Protein/Creatinine Ratio, urine Lab Routine Systemic lupus erythematosus, unspecified SLE type, unspecified organ involvement status Antiphospholipid antibody syndrome High risk medication use Expected: 10/18/2018, Expires: 10/18/2019 C3 Complement Lab Routine Systemic lupus erythematosus, unspecified SLE type, unspecified organ involvement status Antiphospholipid antibody syndrome High risk medication use Expected: 10/18/2018, Expires: 10/18/2019 C4 Complement Lab Routine Systemic lupus erythematosus, unspecified SLE type, unspecified organ involvement status Antiphospholipid antibody syndrome High risk medication use Expected: 10/18/2018, Expires: 10/18/2019 DNA Antibody (Double-Stranded) Lab Routine Systemic lupus erythematosus, unspecified SLE type, unspecified organ involvement status Antiphospholipid antibody syndrome High risk medication use Expected: 10/18/2018, Expires: 10/18/2019 documented as of this encounter Results * QuantiFERON-TB Gold (10/19/2018 3:52 PM EDT) QFT Nil 0.050 IU/mL [facility] QFT TB Ag1-Nil -0.010 IU/mL [facility] QFT TB Ag2-Nil 0.000 IU/mL [facility] QFT Mitogen-Nil >10.000 IU/mL [facility] Quantiferon TB Negative Negative [facility] Quantiferon TB Interp M. tuberculosis infection [...] affect immune function, or other immunological factors. [facility] Comment: The performance of the QFT-Plus [...] DO CHEMISTRY ORDERABL ES Performing Organization Address [facility] Co de Phone Number [facility] [place] [address] * HIV Screen, 4th Generation (Leb/CGP/APD) (10/19/2018 3:52 PM EDT) HIV-1/2 Ab and Ag Negative Negative [facility] Comment: This 4th Generation [...] DO IMMUNOLOGY ORDERAB LES Performing Organization Address [facility] Co de Phone Number [facility] [place] [address] * Hepatitis C Antibody (10/19/2018 3:52 PM EDT) Hepatitis C Ab Negative Negative [facility] Blood specimen (specimen) 10/19/2018 3:52 PM EDT 10/19/2018 4:03 PM EDT Narrative Resulting Agency Comment Spec In Lab Kalli [place] Jesus IMMUNOLOGY ORDERAB LES Performing Organization Address [facility] Co de Phone Number [facility] [place] [address] * Hepatitis B Surface Antigen (10/19/2018 3:52 PM EDT) HepB Surface Ag Negative Negative [facility] Blood specimen (specimen) 10/19/2018 3:52 PM EDT 10/19/2018 4:03 PM EDT Narrative Resulting Agency Comment Spec In Lab Kalli Lee DO CHEMISTRY ORDERABL ES Performing Organization Address [facility] de Phone Number [facility] [place] [address] * Hepatitis B Surface Antibody (10/19/2018 3:52 PM EDT) HepB Surface Ab Quant <3.5 IU/L [facility] Comment: HepB Surface Ab Quant: Unvaccinated: < 8.5 IU/L Vaccinated: > 11.5 IU/L HepB Surface Ab Negative [facility] Comment: Patient is presumed to be not vaccinated or immune to HBV infection. Expected Results: Vaccinated: Positive Unvaccinated: Negative Blood specimen (specimen) 10/19/2018 3:52 PM EDT 10/19/2018 4:03 PM EDT Narrative Resulting Agency Comment Spec In Lab Kalli Lee DO IMMUNOLOGY ORDERAB LES Performing Organization Address [facility] de Phone Number [facility] [place] [address] * Hepatitis B Core Antibody, Total (10/19/2018 3:52 PM EDT) Hep B Core Ab Negative Negative [facility] Blood specimen (specimen) 10/19/2018 3:52 PM EDT 10/19/2018 4:03 PM EDT Narrative Resulting Agency Comment Spec In Lab Kalli Lee DO CHEMISTRY ORDERABL ES Performing Organization Address [facility] Co de Phone Number [facility] [place] [address] * (ABNORMAL) Beta 2 Microglobulin, serum (10/19/2018 3:52 PM EDT) Beta2 Microglob 2.7(H) 0.8 - 2.2 mg/L [facility] Blood specimen (specimen) 10/19/2018 3:52 PM EDT 10/19/2018 4:03 PM EDT Narrative Resulting Agency Comment Spec In Lab Kalli Lee DO CHEMISTRY ORDERABL ES Performing Organization Address [facility] Co de Phone Number [facility] [place] [address] * (ABNORMAL) Cardiolipin Antibody Screen (10/19/2018 3:52 PM EDT) Cardiolipin IgG 24.3(H) <=14.9 GPL unit(s) [facility] Comment: Ranges ?? GPL ------ ?? --- Negative ?? <=14.9 Indeterminate ??15.0 - 20.0 Low/Medium Positive 20.1 - 80.0 High Positive ??>80.0 Cardiolipin IgM <9.4 <=12.5 MPL unit(s) [facility] Comment: Ranges ?? MPL ------ ?? --- Negative ?? <=12.5 Indeterminate ??12.6 - 20.0 Low/Medium Positive 20.1 - 80.0 High Positive ??>80.0 Blood specimen (specimen) 10/19/2018 3:52 PM EDT 10/20/2018 7:23 AM EDT Narrative Resulting Agency Comment Spec In Lab Kalli Lee DO IMMUNOLOGY ORDERAB LES Performing Organization Address [facility] Co de Phone Number [facility] [place] [address] * DNA Antibody (Double-Stranded) (10/19/2018 3:52 PM EDT) DNA Ab (DS) Neg Neg [facility] Blood specimen (specimen) 10/19/2018 3:52 PM EDT 10/20/2018 7:25 AM EDT Narrative Resulting Agency Comment Spec In Lab Kalli Lee DO CHEMISTRY ORDERABL ES Performing Organization Address [facility] Co de Phone Number [facility] [place] [address] * C4 Complement (10/19/2018 3:52 PM EDT) C4 Complement 25 10 - 40 mg/dL [facility] Blood specimen (specimen) 10/19/2018 3:52 PM EDT 10/19/2018 4:03 PM EDT Narrative Resulting Agency Comment Spec In Lab Kalli D Jesus DO CHEMISTRY ORDERABL ES Performing Organization Address City/[facility]/ZIP Co de Phone Number [facility] [place] [address] * C3 Complement (10/19/2018 3:52 PM EDT) C3 Complement 124 90 - 180 mg/dL [facility] Blood specimen (specimen) 10/19/2018 3:52 PM EDT 10/19/2018 4:03 PM EDT Narrative Resulting Agency Comment Spec In Lab Kalli D Jesus DO CHEMISTRY ORDERABL ES Performing Organization Address [facility] Co de Phone Number [facility] [place] [address] * CRP, acute inflammation (10/19/2018 3:52 PM EDT) CRP 1.3 <=4.9 mg/L [facility] Blood specimen (specimen) 10/19/2018 3:52 PM EDT 10/19/2018 4:03 PM EDT Narrative Resulting Agency Comment Spec In Lab Kalli D Hello! Messenger DO CHEMISTRY ORDERABL ES Performing Organization Address [facility]/ZIP Co de Phone Number [facility] [place] [address] * (ABNORMAL) Sedimentation rate (10/19/2018 3:52 PM EDT) Sed Rate 22(H) 0 - 20 mm/hr [facility] Blood specimen (specimen) 10/19/2018 3:52 PM EDT 10/19/2018 4:03 PM EDT Narrative Resulting Agency Comment Spec In Lab Kalli [place] Jesus DO HEMATOLOGY ORDERAB LES [facility] [place] [address] * (ABNORMAL) Comprehensive metabolic panel (non-fasting) (10/19/2018 3:52 PM EDT) Glucose Lvl 92 65 - 199 mg/dL [facility] Comment:Diabetes: >=200 mg/d L plus symptoms BUN 15 8 - 18 mg/dL [facility] Creatinine 0.80 0.70 - 1.20 mg/dL [facility] Sodium 141 135 - 145 mmol/L [facility] Potassium 3.8 3.5 - 5.0 mmol/L [facility] Comment: Please note: ??Patients with WBC >100,000 may have falsely elevated Potassium levels. ??For accurate Potassium quantification in these patients send serum separator tube (gold top) for subsequent determinations. ??Contact the Clinical Chemistry Laboratory if there are any questions. Chloride 104 98 - 107 mmol/L [facility] [facility] CO2 27 22 - 31 mmol/L [facility] Anion Gap 10 5 - 15 mmol/L [facility] Calcium 9.6 8.5 - 10.5 mg/dL [facility] Total Protein 7.5 6.1 - 8.0 gm/dL [facility] Albumin 4.4 3.2 - 5.2 gm/dL [facility] AST 18 0 - 30 unit/L [facility] ALT 9 0 - 30 unit/L [facility] Alk Phos 114(H) 40 - 104 unit/L [facility] Total Bilirubin 0.3 0.2 - 1.3 mg/dL [facility] Estimated GFR 88 >=60 mL/min/1. 73 m?? [facility] Comment: The eGFR was calculated using the CKD-EPI equation. As with all creatinine based estimates of kidney function, eGFR values calculated with the CKD-EPI equation are not accurate in patients with acute kidney failure, extremes of body mass or the acutely ill. [email or web address] eGFR 102 >=60 mL/min/1. 73 m?? [facility] Comment: The eGFR was calculated using the CKD-EPI equation. As with all creatinine based estimates of kidney function, eGFR values calculated with the CKD-EPI equation are not accurate in patients with acute kidney failure, extremes of body mass or the acutely ill. [email or web address] Blood specimen (specimen) 10/19/2018 3:52 PM EDT 10/19/2018 4:03 PM EDT Narrative Resulting Agency Comment Spec In Lab Kalli Lee DO CHEMISTRY ORDERABL ES Performing Organization Address [facility] Co de Phone Number [facility] [place] [address] * (ABNORMAL) Protein/Creatinine Ratio, urine (10/19/2018 3:46 PM EDT) U Creatinine 38 mg/dL [facility] U Protein Ran 18(H) 0 - 12 mg/dL [facility] Prot/Cre Ratio 0.5 ratio [facility] Urine specimen (specimen) 10/19/2018 3:46 PM EDT 10/19/2018 3:53 PM EDT Narrative Resulting Agency Comment Spec In Lab Kalli Lee DO URINE ORDERABLES Performing Organization Address City/[facility]/ZIP Co de Phone Number [facility] [place] [address] * Urinalysis without microscopic (10/19/2018 3:46 PM EDT) Glucose UA Negative Negative mg/dL [facility] Protein UA Negative Negative mg/dL [facility] Bilirubin UA Negative Negative mg/dL [facility] Comment: Clinical correlation required for positive Urine Bilirubin results as false positive may occur with some drugs and drug related products. If a false positive is suspected a serum total bilirubin should be considered if clinically indicated. Urobilinogen UA Normal Normal mg/dL [facility] pH UA 6.0 5.0 - 8.0 [facility] Blood UA Negative Negative mg/dL [facility] Ketones UA Negative Negative mg/dL [facility] Nitrite UA Negative Negative [facility] Leukocytes UA Negative Negative [facility] Appearance UA Clear Clear [facility] Spec [place] UA 1.010 1.002 - 1.030 [facility] Color UA Straw Yellow [facility] Urine specimen (specimen) 10/19/2018 3:46 PM EDT 10/19/2018 3:52 PM EDT Narrative Resulting Agency Comment Spec In Lab Kalli Lee DO URINE ORDERABLES [facility] [place] [address] * Urinalysis with reflex Culture (10/19/2018 3:46 PM EDT) Glucose UA Negative Negative mg/dL [facility] Protein UA Negative Negative mg/dL [facility] Bilirubin UA Negative Negative mg/dL [facility] Comment: Clinical correlation required for positive Urine Bilirubin results as false positive may occur with some drugs and drug related products. If a false positive is suspected a serum total bilirubin should be considered if clinically indicated. Urobilinogen UA Normal Normal mg/dL [facility] pH UA 6.0 5.0 - 8.0 [facility] Blood UA Negative Negative mg/dL [facility] Ketones UA Negative Negative mg/dL [facility] Nitrite UA Negative Negative [facility] Leukocytes UA Negative Negative [facility] Appearance UA Clear Clear [facility] Spec [place] UA 1.010 1.002 - 1.030 [facility] Color UA Straw Yellow [facility] Culture Reflexed No [facility] Urine specimen (specimen) 10/19/2018 3:46 PM EDT 10/19/2018 3:52 PM EDT Narrative Resulting Agency Comment Spec In Lab Kalli Lee DO URINE ORDERABLES [facility] [place] [address] documented in this encounter Visit Diagnoses Diagnosis Systemic lupus erythematosus, unspecified SLE type, unspecified organ involvement status Antiphospholipid antibody syndrome Primary hypercoagulable state High risk medication use Encounter for long-term (current) use of other medications documented in this encounter Care Teams Lens Edger Relationship Specialty Start Date End Date Mckenna Genao, OVERSEAMER [address] [place] [address] PCP - General Family Medicine 05/07/17 08/08/21 documented as of this encounter
--- OUTSIDE RECORDS SUMMARY | 2023-11-04 15:16 | XMS_ITS | Encounter Summary ---
[place] [address] Care Team Providers Care Tugboat Engineer Name Role Phone SandraMckenna rodriguez SUELLEN Primary Care Provider [phone] Reason for Visit * Reason Onset Date Comments Medication Refill 10/12/2019 Encounter Details Date Type Department Care Team (Late st Contact Info) Description 10/12/2019 Refill [place] [phone] Tommy Raymundo RN Social History Tobacco Use [...] encounter Miscellaneous Notes * Telephone Encounter - Tommy Raymundo RN - 10/12/2019 11:08 AM EDT Faxed req received. documented in this encounter Plan of Treatment Upcoming Encounters Date Type Department Care Team (Late st Contact Info) Description 11/11/2023 3:00 AM EDT [place] [address] documented as of this encounter Visit Diagnoses Not on filedocumented in this encounter Care Teams Tugboat Engineer Relationship Specialty Start Date End Date Mckenna Genao, SIZING MACHINE TENDER [address] [place] [address] PCP - General Family Medicine 05/07/17 08/08/21 documented as of this encounter
--- OUTSIDE RECORDS SUMMARY | 2023-11-04 15:16 | XMS_ITS | Encounter Summary ---
[place] [address] Care Team Providers Care Heat And Frost Insulator Name Role Phone Birgit Mckenna KEN Primary Care Provider [phone] Reason for Visit * Reason Comments Medication Refill Encounter Details Date Type Department Care Team (Late st Contact Info) Description 03/12/2019 Refill [place] [address] Kaylen Aguilar, [facility] [place] [address] Social History Tobacco Use Types Packs/Day Years [...] encounter Miscellaneous Notes * Telephone Encounter - Bryantamynidhichayito Linhlyssa Bishop - 03/14/2019 10:54 AM EST No show previously. Needs labs if she needs ongoing prescription. Please schedule follow up appointment with me in the next 4-6 weeks. Mehrdad, Linh documented in this encounter Plan of Treatment Upcoming Encounters Date Type Department Care Team (Late st Contact Info) Description 11/11/2023 3:00 AM EDT [place] [address] documented as of this encounter Visit Diagnoses Not on filedocumented in this encounter Care Teams Heat And Frost Insulator Relationship Specialty Start Date End Date Mckenna Genao, SUELLEN [address] [facility] [place] [address] PCP - General Family Medicine 05/07/17 08/08/21 documented as of this encounter
--- OUTSIDE RECORDS SUMMARY | 2023-11-04 15:16 | XMS_ITS | Encounter Summary ---
[place] [address] Care Team Providers Care Asthma Educator Name Role Phone BirgitMckenna SUELLEN Primary Care Provider [phone] Encounter Details Date Type Department Care Team (Late st Contact Info) Description 07/20/2017 2:40 PM EDT [place] [phone] Alvaro Siegel MD [facility] [place] [address] Gross hematuria Social History Tobacco Use Types [...] as of this encounter Patient Instructions * Patient Instructions* Sowmya Brand LPN - 07/20/2017 2:40 PM EDT Instructions following Cystoscopy Activity: As tolerated by your comfort level. Fluids: You should increase your water today. Avoid coffee, tea and cola. You do not need to uctojp25 ounces of water today. Urination: You will likely have a small amount of blood in your urine for the next several days. This is normal; however, if you are passing large amounts of blood clots or are unable to void please call our office at [phone] before 5PM or [phone] after hours. Please call if: * you have copious blood in your urine * fevers greater than 101.3 F * you are unable to void The number for questions is [phone] before 5 PM weekdays and [phone] after 5 PM and weekends. Follow-up: 6 months for urinalysis and symptom check documented in this encounter Procedure Notes * Alvaro Siegel MD - 07/20/2017 2:40 PM EDTAssociated Order(s): CYSTOSCOPY Pre-Procedure Diagnose(s): Gross hematuria Procedure: Flexible Cystoscopy Surgeon: Alvaro Siegel MD Preoperative Diagnosis: Gross hematuria Post Operative Diagnosis: Normal cystoscoy Complications: None Procedure: Urinalysis revealed no evidence of an active urinary tract infection. After informed consent was obtained and the external genitalia appropriately cleaned and draped, lidocaine was instilled into the urethra to achieve topical anaesthesia. The flexible telescope was inserted into the urethra and advanced into the bladder under direct vision. The bladder was systematically inspected through 360 degrees with the flexible telescope including retroversion. The anterior urethroscopy was normal. The ureteral orifices were in normal position and effluxed clear urine. The bladder was normal. There were no bladder tumors, mucosal abnormalities or bladder stones. The cystoscope was removed. The patient tolerated the procedure without difficulty. There were no complications. Plan: See office note from today Alvaro Siegel MD documented in this encounter Plan of Treatment Upcoming Encounters Date Type Department Care Team (Late st Contact Info) Description 11/11/2023 3:00 AM EDT [place] [address] documented as of this encounter Procedures Procedure Name Priority Date/Time Associated Diagnosis Comments CYSTOSCOPY Routine 07/20/2017 6:11 PM EDT Gross hematuria URINE CULTURE Routine 07/20/2017 5:44 PM EDT Gross hematuria _URINALYSIS WITH MICROSCOPIC Routine 07/20/2017 2:56 PM EDT Gross hematuria NON-OPERATIONS CONTROLLER FINAL REPORT Routine 07/20/2017 2:56 PM EDT CYTOPATHOLOGY NON-GYNECOLOGICAL Routine 07/20/2017 2:56 PM EDT Gross hematuria documented in this encounter Results * Cystoscopy - Today (07/20/2017 6:11 PM EDT) Narrative Alvaro Siegel MD - 07/20/2017 6:11 PM EDT Alvaro Siegel MD ? 07/20/2017 ??6:11 PM Procedure: Flexible Cystoscopy Surgeon: Alvaro Siegel MD Preoperative Diagnosis: Gross hematuria Post Operative Diagnosis: Normal cystoscoy Complications: None Procedure: Urinalysis revealed no evidence of an active urinary tract infection. After informed consent was obtained and the external genitalia appropriately cleaned and draped, lidocaine was instilled into the urethra to achieve topical anaesthesia. The flexible telescope was inserted into the urethra and advanced into the bladder under direct vision. The bladder was systematically inspected through 360 degrees with the flexible telescope including retroversion. The anterior urethroscopy was normal. The ureteral orifices were in normal position and effluxed clear urine. The bladder was normal. There were no bladder tumors, mucosal abnormalities or bladder stones. The cystoscope was removed. The patient tolerated the procedure without difficulty. There were no complications. Plan: See office note from today Alvaro Siegel MD Alvaro Siegel MD PROCEDURE ORDER ADRIANA * (ABNORMAL) Urine culture Clean Catch Urine (07/20/2017 5:44 PM EDT) Urine Culture 1,000-9,000 cfu/ml Gram Positive organisms , probable contaminant(A ) [facility] Urine specimen obtained by clean catch procedure (specimen) 07/20/2017 5:44 PM EDT 07/20/2017 5:44 PM EDT Narrative Resulting Agency Comment Spec In Lab Alvaro Siegel MD MICROBIOLOGY - GEN ERAL ORDERABLES [facility] [place] [address] * Non-Yarn Conditioner Final Report (07/20/2017 2:56 PM EDT) Diagnosis Discussion [id number] ? Location: 5B The signing pathologist has (i) examined the relevant preparation(s) for the specimen(s) and (ii) rendered or confirmed the diagnosis(es). . ? Non-Yarn Conditioner Final DIAGNOSIS Negative for Malignancy Electronically signed by: ??La Bush MD Verified: ??07/22/2017 ?Pathologist Performed at: ??-[facility] Dept. of Pathology, [place], [place] DISCUSSION Urine, voided: Urothelial cells, squamous cells, white blood cells, and bacteria are present. CLINICAL INFORMATION Specimen Source : Urine, voided Pertinent Clinical Data and Significant Therapy: Hematuria Clinical Impression : Gross hematuria Pertinent Radiologic Findings ??: (not provided) Gross Description: Received ??in 50% ETOH, ??approximately 60 mL total volume of ??cloudy, colorless fluid, with light flecks. Total Preparation: Liquid-Based Prep 1. 07/22/2017 12:29 PM EDT [facility] URINE SPECIMEN OBTAINED BY CLEAN CATCH PROCEDURE / Unknown 07/20/2017 2:56 PM EDT 07/20/2017 2:56 PM EDT Alvaro Siegel MD PATHOLOGY/CYTOLOGY ORDERABLES [facility] [place] [address] * Cytopathology Non-Gynecological (07/20/2017 2:56 PM EDT) AP Specimen 07/20/2017 2:56 PM EDT 07/20/2017 2:56 PM EDT Narrative [facility] - 07/20/2017 2:56 PM EDT Specimen requisition ordered. ??Separate Pathology report to follow Alvaro Siegel MD PATHOLOGY/CYTOLOGY ORDERABLES Performing Organization Address [facility]/[place] [address] * (ABNORMAL) _Urinalysis with microscopic (07/20/2017 2:56 PM EDT) Glucose UA Negative Negative mg/dL [facility] Protein UA Negative Negative mg/dL [facility] Bilirubin UA Negative Negative mg/dL [facility] Comment: Clinical correlation required for positive Urine Bilirubin results as false positive may occur with some drugs and drug related products. If a false positive is suspected a serum total bilirubin should be considered if clinically indicated. Urobilinogen UA Normal Normal mg/dL [facility] pH UA 6.0 5.0 - 8.0 [facility] Blood UA Negative Negative mg/dL [facility] Ketones UA Negative Negative mg/dL [facility] Nitrite UA Negative Negative [facility] Leukocytes UA Small(A) Negative mcL [facility] Appearance UA Clear Clear [facility] Spec [place] UA 1.020 1.002 - 1.030 [facility] Color UA Colorless Yellow [facility] RBC UA 1 0 - 4 /HPF [facility] WBC UA 2 0 - 5 /HPF [facility] Bacteria UA Rare(A) None /HPF [facility] Squam Epith UA <1 <=4 /HPF [facility] Urine specimen (specimen) 07/20/2017 2:56 PM EDT 07/20/2017 5:25 PM EDT Narrative Resulting Agency Comment Spec In Lab Alvaro Siegel MD URINE ORDERABLES Performing Organization Address City/State/[facility] Co de Phone Number [facility] [place] [address] documented in this encounter Visit Diagnoses Diagnosis Gross hematuria documented in this encounter Care Teams Asthma Educator Relationship Specialty Start Date End Date Mckenna Genao, SUELLEN [address] [place] [address] PCP - General Family Medicine 05/07/17 08/08/21 documented as of this encounter
--- OUTSIDE RECORDS SUMMARY | 2023-11-04 15:16 | XMS_ITS | Encounter Summary ---
[place] [address] Care Team Providers Care Site Safety Coordinator Name Role Phone BirgitMckenna SUELLEN Primary Care Provider [phone] Reason for Visit * Auth/Cert Specialty Diagnoses / Procedures Referred By Edgar warren Referred To Contact Diagnoses Pulmonary embolism CHEST PAIN Procedures ER IPI Referral ID Status Reason Start Date Expiration Date Visits Re quested Visits Authorized [id number] 1 1 Encounter Details Date Type Department Care Team (Latest Contact Info) Description 03/21/2020 8:56 AM EST - 03/21/2020 11:59 PM EST Hospital Encounter Non-In[place] [phone] Discharge Disposition: Home Social History Tobacco Use [...] Tablet(s), PO, Once daily 06/05/2010 warfarin (Coumadin) 7.5 mg Tablet TAKE 1 [...] Telephone Visit [facility] [place] [address] documented as of this encounter Procedures Procedure Name Priority Date/Time Associated Diagnosis Comments STRESS ECHO W CONTRAST W LMTD SPEC DOPP Routine 03/21/2020 10:26 AM EST Other chest pain documented in this encounter Visit Diagnoses Not on filedocumented in this encounter Administered Medications Inactive Administered Medications - up to 3 most recent administrations Medication Order MAR Action Action Date Dose Rate Site perflutren protein-A microsphers (Optison) (0.22 mg/mL) injection 2.4 mL 2.4 mL, Intravenous, ONCE PRN, 1 dose, Starting on Thu03/21/20 at 1028, Until Thu03/21/20 at 0945, for enhancement of sub-optimal echo images, Echo Lab (Intra-Procedure), Routine Given 03/21/2020 9:45 AM EST 2.4 mLs documented in this encounter Care Teams Site Safety Coordinator Relationship Specialty Start Date End Date Mckenna Genao, SUELLEN [address] [place] [address] PCP - General Family Medicine 05/07/17 08/08/21 documented as of this encounter
--- OUTSIDE RECORDS SUMMARY | 2023-11-04 15:16 | XMS_ITS | Encounter Summary ---
Author Organization [facility] [place] [address] Care Team Providers Care Solar Resource Assessor Name Role Phone Mckenna Genao APRN Primary Care Provider [phone] Reason for Referral * Consultation (Routine) - Closed Specialty Diagnoses / Procedures Referred By Contac t Referred To Contact Cardiology Diagnoses Single subsegmental pulmonary embolism without acute cor pulmonale Antiphospholipid antibody syndrome Referral to cardiology for ongoing management of mechanical AVR and anticoagulation in the setting of mAVR, antiphospholipid syndrome, recent PE Deniz Root Jr., MD [facility] [place] [address] [facility] [place] [place] Cardiology [address] [place] [id number] Referral ID Status Reason Start Date Expiration Date V isits Requested Visits Authorized [id number] Closed Consult, Test & Treat 03/20/2020 03/20/2021 1 1 * Consultation (Routine) - Closed Specialty Diagnoses / Procedures Referred By Contac t Referred To Contact Rheumatology Diagnoses Single subsegmental pulmonary embolism without acute cor pulmonale Systemic lupus erythematosus, unspecified SLE type, unspecified organ involvement status Antiphospholipid antibody syndrome Deniz Root Jr., MD [facility] [place] [address] [facility] [place] [place] Rheumatology [address] [place] [address] Referral ID Status Reason Start Date Expiration Date V isits Requested Visits Authorized [id number] Closed Consult, Test & Treat 03/20/2020 03/20/2021 1 1 Reason for Visit * Auth/Cert Specialty Diagnoses / Procedures Referred By Edgar warren Referred To Contact Diagnoses Pulmonary embolism CHEST PAIN Procedures ER IPI Referral ID Status Reason Start Date Expiration Date Visits Re quested Visits Authorized [id number] 1 1 Encounter Details Date Type Department Care Team (Late st Contact Info) Description 03/18/2020 8:56 PM EST - 03/21/2020 4:00 PM EST Hospital Encounter Inter[place] [address] Hunter Navarro MD [facility] [place] [address] Acute septic pulmonary embolism, unspecified whether acute cor pulmonale present; Other chest pain; Single subsegmental pulmonary embolism without acute cor pulmonale; Systemic lupus erythematosus, unspecified SLE type, unspecified organ involvement status; Antiphospholipid antibody----- use antiXa level to dose heparin. Discharge Disposition: Home Social History Tobacco Use [...] Sign Reading Time Taken Comments Blood Pressure 107/62 03/21/2020 11:30 AM EST Pulse 66 03/21/2020 11:30 AM EST Temperature 36.6 ??C (97.9 ??F) 03/21/2020 1 1:30 AM EST Respiratory Rate 17 03/21/2020 11:3 0 AM EST Oxygen Saturation 98% 03/21/2020 11: 30 AM EST Inhaled Oxygen Concentration - - Weight 79.8 kg (175 lb 14.8 oz) 03/21/2020 3:59 AM EST Height 160 cm (5' 2.99) 03/20/2020 4:48 AM EST Body Mass Index 31.17 03/20/2020 4:48 AM EST documented in this encounter Discharge Summaries * Deniz Root Jr. - 03/20/2020 11:42 AM EST Discharge Summary Patient Name: Noah Dumont Patient Age: 50 y.o. Language: Romanian Race: White Ethnicity: Not nor Admit date: 03/18/2020 Discharge date and time: 03/22/20 3:17 PM Attending Physician: No att. providers found Discharge Physician: Dr. Hunter Navarro Follow-up Recommendations for Providers: - Patient was re-started on levothyroxine in the hospital, TSH was 4.33. Please repeat TSH in 3-4 weeks - Follow up outstanding rheumatologic workup: antiphospholipid antibody panel, beta 2-microglobulin, WADE titer, TPMT - INR goal is 2.5-3.5. May need to adjust based on the above workup. Ensure follow up with anticoagulation clinic. - Stress echocardiogram in the hospital showed a minor wall motion abnormality. Negative LHC two years ago. Consider coronary CT angiogram or nuclear medicine stress test if the patient has persistent or worsening dyspnea on exertion. - Repeat lipid panel in 3 months as patient was started on atorvastatin Inpatient Provider Contact Information: For questions regarding this document or issues relating to this hospitalization on the Medical Service, please contact your inpatient physician through the [facility] Builder Operator . Issues afterhours and on weekends will be handled by the Hospitalist staff on-call. Discharge Diagnoses (Hospital Problems) and Secondary Diagnoses (Chronic Problems): Active Hospital Problems Diagnosis ??? Pulmonary embolism ??? Antiphospholipid antibody----- use antiXa level to dose heparin. ??? Systemic lupus erythematosus ??? Aortic valve prosthesis present Resolved Hospital Problems No resolved problems to display. Active Non-Hospital Problems Diagnosis ??? [address] Alegre with severe AI, SLE, and APLS admitted for conversion to heparin prior to AVR. Course c/b gross hematuria, CHARLES, cp, anxiety. ??? Chest pain-- normal cors by cath in 2004 and 2011 ??? Dilated cardiomyopathy--- noted in 2003, improved ??? JAN on CPAP ??? Hyperlipemia ??? Hypertension ??? Depression and anxiety ??? Gross hematuria--- while on heparin ??? Osteoporosis ??? H/O total knee replacement ??? Cerebral infarction---at age 21 ??? Migraine Operations/Major Procedures: N/A History of Presentation: as written in the H&P Noah Dumont is a 50 yo F with PMHx of SLE diagnosed at age 21 (on plaquenil and MTx), APS (c/b TIA, distant CVA, miscarriages and thrombocytopenia), on lifelong AC with coumadin, AI s/p mAVR ([facility], [facility] - 05/2017), resolved cardiomyopathy w/ pleuropericarditis (EF 59% with normal coronaries in 2018 on cath), h/o alveolar hemorrhage (while on lovenox 2015), initially presented to [facility] with atypical chest pain and found to have L subsegmental PE despite therapeutic INR. ?? Initially presented to [facility] today with L-sided CP. There was concern for ACS given initial EKG finding of LVH w/ mild ST elevations and lateral TWIs, however negative trops, normal CBC. Prior EKG from 2 years ago demonstrated similar findings when she presented with similar symptoms, however no evidence of CAD at that time. Her symptoms were non-exertional and had been present at rest for the past 3 weeks without any improvement. Due to history of SLE/APS and high risk for acute plaque rupture,she was loaded with ASA 325 x1, without other forms of anti-platelet agent, and received 1x SLNGT and 2g IV morphine. Initially accepted for transfer for ischemia work-up, and later while en route was informed patient had LLL subsegmental PE without evidence of RH strain on CT, despite being therapeutic on coumadin. ?? On interview, she reports last 3 weeks had significant FATIMA, with as little as doing laundry - had previously been walking 15 miles a day without issue. Has also had persistent 8/10 L chest pain, sometimes radiating to the head and L arm, with headache. Headache is described as undulating from dull to sharp. The pain is at rest and on exertion, while dyspnea and diaphoresis are reported on exertion. Additionally reporting intermittent palpitations and orthostasis (pasting minutes, no LOC), and has had new orthopnea and PND x 3 weeks. States her Fitbit is recording frequently nightly awakenings. ?? Of significance, patient has been off her prescribed methotrexate for over a month due to insurancereasons, and is not sure if any providers have been working towards getting her coverage. Denies missing any doses of her warfarin. She does not know what her recent INRs have been (clinic just tellsher to make changes), however has been closely following up - notes recently they have been increasing her coumadin dose frequently. No recent trauma or immobilizations. Has also not been able to take levothyroxine due to insurance coverage over the past month. Denies any new rashes, joint pains, however has felt chills and hot flashes intermittently. She has residual L sided UE weakness from prior stroke. Has chronic baseline nausea and constipation. Hospital Course: #Acute Pulmonary Embolism #Antiphospholipid Syndrome CTA at OSH showed evidence of LLL subsegmental PE. Transthoracic echocardiogram showed no significant abnormality to explain her pleuritic chest pain or dyspnea. INR was 2.5 on admission. Communication with her anticoagulation clinic, however, revealed that her INR was <2 on multiple occasions in February, around the time her symptoms started, suggesting that this PE was triggered by a sub-therapeutic INR. Regardless, Xa activity was sent and was 10%, lower than expected. Hematology was consulted and recommended no change in her target INR. She will follow up with rheumatology and cardiology (Dr. Benoit Richter) for further management. #Exertional Dyspnea Stress test was performed on the day of discharge and showed a small apical wall motion abnormality. The study was limited by exertional dyspnea. Given that the defect was small, and she had no evidence of coronary disease on LHC two years ago, we felt she could be medically managed and discharged with further workup, such as a nuclear stress test, coronary CT angiogram, or elective LHC if her sym ptoms persist or worsen. #Systemic Lupus Erythematosus Patient had not recently followed up with rheumatology and stopped taking MTX several weeks ago dueto insurance issues. Inflammatory markers, complement levels, and Cr were normal. No evidence of pericarditis on TTE. WADE titer was pending discharge, dsDNA antibody titer was negative. Rheumatology was consulted, plan to follow as an outpatient. No immediate changes were recommended. #Hypothyroidism TSH 4.33. Prior home dose of 25 mcg levothyroxine was resumed and continued at discharge. Vital Signs at Discharge: BP: 135/69, Heart Rate: 65, Temp: 36.6 ??C (97.9 ??F), Resp: 15, BMI (Calculated): 31.09 Height: 160 cm (5' 2.99) (03/20/20447) Weight: 79.8 kg (175 lb 14.8 oz) (03/21/20358) Functional and Cognitive Status: Noah Dumont is awake, alert, and oriented to person, place, and time, and able to return to normal activity with exceptions as outlined in the instructions below. Important Studies and Lab Data: Labs: Recent Labs 03/21/2034203/20/2043003/19/20322 WBC 7.1 7.5 6.5 HGB 14.0 14.5 13.6 HCT 41.2 42.4 40.1 PLATELET 223 241 235 Recent Labs 03/21/2034203/20/2043003/19/20322 NA 139 140 141 K 4.0 4.0 3.8 CL 103 103 105 CO2 27 27 27 BUN 18 18 19* CREATININE 0.73 0.68* 0.74 No results for input(s): AST, ALT, ALKPHOS, BILITOT, BILIDIR in the last 168 hours. Recent Labs 03/21/2034203/20/2043003/19/20322 CALCIUM 8.7 9.0 8.6 MAGNESIUM 0.86 0.85 0.80 Recent Labs 03/19/20 0323 03/18/20 2137 TROPONINT <0.01 <0.01 Results for NOAH DUMONT ( ) as of 03/20/2020 11:50 Ref. Range 03/18/2020 21:37 03/19/2020 03:23 03/20/2020 04:31 PT Latest Ref Range: 9.4 - 12.5 sec 30.5 (H) 28.5 (H) 28.8 (H) INR Unknown 2.7 2.5 2.5 PTT Latest Ref Range: 25 - 37 sec 44 (H) 44 (H) 47 (H) Results for NOAH DUMONT ( ) as of 03/20/2020 16:35 Ref. Range 03/19/2020 11:48 C3 Complement Latest Ref Range: 90 - 180 mg/dL 120 C4 Complement Latest Ref Range: 10 - 40 mg/dL 20 DNA Ab (DS) Latest Ref Range: Neg Neg CRP Latest Ref Range: <=4.9 mg/L 1.0 Results for NOAH DUMONT ( ) as of 03/21/2020 14:31 Ref. Range 03/20/2020 04:31 Cardiolipin IgG Latest Ref Range: <=14.9 GPL unit(s) 28.8 (H) Cardiolipin IgM Latest Ref Range: <=12.5 MPL unit(s) 9.9 Studies: TTE 03/19/2020 SUMMARY: 1. The left ventricle is probably normal [...] prior study 06/30/17, no significant changes have occured. DVT Ultrasound 03/19/2020 Interpretation: RIGHT: ??No evidence of lower extremity deep venous thrombosis. LEFT: ??No evidence of lower extremity deep venous thrombosis. Exercise Stress Echocardiogram 03/21/2020 SUMMARY: 1. REST: The ECG shows sinus rhythm [...] an apical WMA and probable inferior ischemia. Pending Studies and Lab Data: - Antiphospholipid antibody panel - Xa activity - WADE titer - Beta-2 microglobulin Discharge Conditions/Prognosis: Upon discharge the pt is hemodynamically stable, fully ambulatory without requiring supplemental oxygen, afebrile and pain free controlled with stable oral regimen. Discharge to: Home Updated Allergies/ADRs: Allergies Allergen Reactions ??? Tramadol Upset stomach Immunizations Given this Hospitalization: Immunization History Administered Date(s) Administered ??? DTaP 01/14/2012 ??? Influenza Vaccine w/Preservative, Split 01/07/2012, 01/03/2013 ??? Influenza Vaccine, Whole 03/05/2010 ??? Tdap Vaccine 03/05/2010 Discharge Medications: Your Medications New Medications Dose Details atorvastatin 40 mg Tab Commonly known as: Lipitor Take 1 tablet by mouth every evening. 40 mg Quantity: 90 tablet Refills: 0 Continued medications with new dosing Dose Details levothyroxine 25 mcg Tab Commonly known as: Synthroid Take 1 tablet by mouth daily. Dosage Unknown What changed: medication strength 25 mcg Quantity: 90 tablet Refills: 0 metoprolol succinate XL 50 mg Tablet sr Commonly known as: Toprol-XL Take 1 tablet by mouth daily. What changed: ?? medication strength ?? how much to take 50 mg Quantity: 90 tablet Refills: 0 Continued medications, unchanged Dose Details acetaminophen 500 mg Tab Commonly known as: Tylenol Take 2 tablets by mouth every 6 hours as needed for Pain. 1,000 mg Quantity: 30 tablet Refills: 1 aspirin 81 mg Chew Take 81 mg by mouth daily. 81 mg Quantity: 30 tablet Refills: 3 diclofenac 1 % Gel Commonly known as: VOLTAREN Apply 2 g topically 3 times daily as needed. 2 g Quantity: 100 g Refills: 1 FLUoxetine 40 mg Cap Commonly known as: PROzac Take 40 mg by mouth daily. 40 mg Refills: 0 hydrOXYchloroQUINE 200 mg Tab Commonly known as: Plaquenil Take 1 tablet by mouth 2 times daily. Indications: systemic lupus erythematosus, an autoimmune disease 200 mg Quantity: 60 tablet Refills: 0 multivitamin with minerals Tab 1 Tablet(s), PO, Once daily Refills: 0 pantoprazole EC 40 mg Tbec Commonly known as: Protonix Take 40 mg by mouth 2 times daily. 40 mg Refills: 0 STOPPED Medications cetirizine 10 mg Tab Commonly known as: ZyrTEC folic acid 1 mg Tab Commonly known as: Folvite metHOTREXate (PF) 25 mg/mL Soln metHOTREXate 25 mg/mL Soln Syringe with Needle, Safety 1 mL 27 gauge x 1/2 Syrg Commonly known as: Magellan Syringe warfarin 1 mg Tab Commonly known as: Coumadin warfarin 5 mg Tab Commonly known as: Coumadin UNREVIEWED medications - Discuss With Your Provider Dose Details warfarin 7.5 mg Tab Commonly known as: Coumadin Take 1 tablet by mouth once for 1 dose. Ask about: Should I take this medication? 7.5 mg Quantity: 1 tablet Refills: 0 Smoking Status at Discharge: Social History Tobacco Use Smoking Status Former Smoker ??? Quit date: 10/22/2007 ??? Years since quittin.4 Smokeless Tobacco Never Used Instructions Given to Patient at Discharge: Patient Instructions Instruction after leaving the hospital Why you were hospitalized: You were hospitalized with subsegmental pulmonary embolism, which is blood clots in your lungs. Most likely you developed this while your INR was running low in February. May also be associated to the change in your body's ability to metabolize warfarin while you were offLevothyroxine. You were continued with warfarin and restarted levothyroxine. You will be followed by Rheumatology and Cardiology as outpatient. Call your doctor or seek medical attention if you develop the following: Call your doctor or seek medical attention if you experience any alarming symptoms. This may include, but is not limited to, fever (T 100.4F or higher), chest pain, severe shortness of breath, nausea with vomiting, persistent decrease in your urinary output, severe pain, or any other concerning symptoms. Activity level: As tolerated. Diet: No new restrictions. Shower/Bath: No new restrictions. Wound Care: N/A Home Oxygen therapy: N/A Patient Instructions: - Continue follow up with your anticoagulation clinic and follow their instructions for INR checks and warfarin dosing - Call your doctor if you continue to have left-sided chest pain or shortness of breath - Keep your appointments as shown below If you have non-emergent questions between now and the time of your follow up appointments: During 8am-5pm Thursday through Thursday call [phone] to speak with a nurse in the cardiology clinic All other times call [phone] and ask to speak to the senior data developer button decorating machine operator. Home oxygen therapy: n/a Arrangements for VNA/home care: n/a Follow up Appointments: Future Appointments Date Time Provider Department Center 03/22/2020 1:30 PM Jluis Perry DO [facility] RHEUM [facility] 04/25/2020 10:20 AM Gerardo Richter MD [facility] CARD 4A [facility] Vamp Stitcher: Gerardo Richter MD PCP: Mckenna Genao APRN at [phone] PCP appointment on 03/28/2020 at 1:30 PM with Clay Terrell General Instructions Warfarin (Coumadin??) Instructions for Home: ??? Reason for warfarin (Coumadin??) therapy: mechanical aortic valve replacement, lupus, antiphospholipid antibody syndrome ??? Your NEW warfarin (Coumadin??) dosing instruction upon discharge is: (Follow this schedule below until your first INR check after discharge (usually in 2- 4 days): ??? 03/21/20: Take warfarin 7.5 mg dose in the evening ??? 03/22/20: Take warfarin 7.5 mg dose in the evening ??? 03/23/20: Check INR ??? Your next INR check is scheduled for: Monday, March 23, 2020 [facility] ??? It is very important that you have your INR checked regularly as your dose may change based on your lab values. ??? INR goal range: 2.5-3.5 ??? Expected duration of treatment: indefinite, lifelong ??? Provider responsible for ongoing outpatient warfarin management: ??? Mckenna Genao APRN, ??? [facility], ? If you have not received a call from your provider within 24 hours of having your INR drawn, please call your outpatient provider for further dose instructions. ??? Warfarin (Coumadin??) should be taken at the same time every day, preferably after 5:00 pm. It is very important that you take your warfarin as instructed. ??? You received information on warfarin (Coumadin??) while you were in the hospital. It is important for you to remember the following (please see your warfarin (Coumadin??) packet for more information): ?? Your INR can be affected by your diet and other medications you take ?? It is important to maintain a diet with a consistent amount of mtpiyid-e-dwlysnuujn foods and avoid major changes in your diet ?? Do not start or stop taking any prescription medications, qonu-blm-vnnlbtw medications, dietary supplements or herbal medications without asking your doctor or pharmacist ?? Tell your doctors, pharmacists and other healthcare providers that you take warfarin (Coumadin??) ?? Warfarin (Coumadin??) increases your risk of bleeding ??? If you experience any of these signs or symptoms of bleeding or blood clotting, please seek immediate medical attention: ?? increased pain, swelling or sudden shortness of breath ?? severe headache ?? dizziness ?? unusual bleeding or bruising ?? changes in urine or bowel movement color ?? coughing or spitting up of blood, or ?? nosebleeds that do not stop or occur more often The following table shows your most recent INR results and warfarin (Coumadin??) doses. Please bring this to your first INR check appointment after discharge. Inpatient Warfarin Dose History: Date INR Dose Comments 03/18/20 2.9 2.7 5 mg INR 2.9 reported from [facility] 03/19/20 2.5 7.5 mg 03/20/20 2.5 7.5 mg 03/21/20 2.9 7.5 mg END Warfarin (Coumadin??) Instructions for Home Future Appointments and Orders Future Appointments and Orders Future Appointments Provider Department Dept Phone 03/26/2020 1:00 PM Jluis Perry, DO Rheumatology at [facility] Arrive at: [employer] [facility] Area [phone] 04/24/2020 1:30 PM Jluis Perry, DO Rheumatology at [facility] Arrive at: [facility] [employer] [facility] Area [phone] 04/25/2020 10:20 AM Gerardo Richter MD Cardiology at [facility] Arrive at: [employer] [facility] Area [phone] Please do not come in for this visit. Your provider will call you at the number you provided. Future Orders Complete By Expires Referral to Cardiology [REF12 Custom] As directed Process Instructions: If no progress note charted, please enter Clinical details in comments. Scheduling Instructions: Questions: My question or request is: Referral to cardiology for ongoing management of mechanical AVR and anticoagulation in the setting of mAVR, antiphospholipid syndrome, recent PE Referral to Rheumatology [REF97 Custom] As directed Process Instructions: If no progress note charted, please enter Clinical details in comments. Scheduling Instructions: Questions: My question or request is: follow up for SLE and antiphospholipid syndrome, appt already scheduled Discharge References/Attachments Warfarin Safety Tips (Romanian) Vitamin K Diet (Romanian) Pulmonary Embolism (Romanian) documented in this encounter Discharge Instructions * Discharge Instructions* Flavia Minaya, [facility] - 03/21/2020 1:31 PM EST Warfarin (Coumadin??) Instructions for Home: ??? Reason for warfarin (Coumadin??) therapy: mechanical aortic valve replacement, lupus, antiphospholipid antibody syndrome ??? Your NEW warfarin (Coumadin??) dosing instruction upon discharge is: (Follow this schedule below until your first INR check after discharge (usually in 2- 4 days): ??? 03/21/20: Take warfarin 7.5 mg dose in the evening ??? 03/22/20: Take warfarin 7.5 mg dose in the evening ??? 03/23/20: Check INR ??? Your next INR check is scheduled for: Monday, March 23, 2020 at 9:00 am at your primary careoffice, [facility] ??? It is very important that you have your INR checked regularly as your dose may change based on your lab values. ??? INR goal range: 2.5-3.5 ??? Expected duration of treatment: indefinite, lifelong ??? Provider responsible for ongoing outpatient warfarin management: ??? Mckenna Genao APRN, ??? [facility], ? If you have not received a call from your provider within 24 hours of having your INR drawn, please call your outpatient provider for further dose instructions. ??? Warfarin (Coumadin??) should be taken at the same time every day, preferably after 5:00 pm. It is very important that you take your warfarin as instructed. ??? You received information on warfarin (Coumadin??) while you were in the hospital. It is important for you to remember the following (please see your warfarin (Coumadin??) packet for more information): ?? Your INR can be affected by your diet and other medications you take ?? It is important to maintain a diet with a consistent amount of zosiiyt-u-ghczpraiud foods and avoid major changes in your diet ?? Do not start or stop taking any prescription medications, ntxh-upe-qyrixed medications, dietary supplements or herbal medications without asking your doctor or pharmacist ?? Tell your doctors, pharmacists and other healthcare providers that you take warfarin (Coumadin??) ?? Warfarin (Coumadin??) increases your risk of bleeding ??? If you experience any of these signs or symptoms of bleeding or blood clotting, please seek immediate medical attention: ?? increased pain, swelling or sudden shortness of breath ?? severe headache ?? dizziness ?? unusual bleeding or bruising ?? changes in urine or bowel movement color ?? coughing or spitting up of blood, or ?? nosebleeds that do not stop or occur more often The following table shows your most recent INR results and warfarin (Coumadin??) doses. Please bring this to your first INR check appointment after discharge. Inpatient Warfarin Dose History: Date INR Dose Comments 03/18/20 2.9 2.7 5 mg INR 2.9 reported from [facility] 03/19/20 2.5 7.5 mg 03/20/20 2.5 7.5 mg 03/21/20 2.9 7.5 mg END Warfarin (Coumadin??) Instructions for Home * Patient Instructions* Deniz Root Jr. - 03/20/2020 11:04 AM EST Instruction after leaving the hospital Why you were hospitalized: You were hospitalized with subsegmental pulmonary embolism, which is blood clots in your lungs. Most likely you developed this while your INR was running low in February. May also be associated to the change in your body's ability to metabolize warfarin while you were offLevothyroxine. You were continued with warfarin and restarted levothyroxine. You will be followed by Rheumatology and Cardiology as outpatient. Call your doctor or seek medical attention if you develop the following: Call your doctor or seek medical attention if you experience any alarming symptoms. This may include, but is not limited to, fever (T 100.4F or higher), chest pain, severe shortness of breath, nausea with vomiting, persistent decrease in your urinary output, severe pain, or any other concerning symptoms. Activity level: As tolerated. Diet: No new restrictions. Shower/Bath: No new restrictions. Wound Care: N/A Home Oxygen therapy: N/A Patient Instructions: - Continue follow up with your anticoagulation clinic and follow their instructions for INR checks and warfarin dosing - Call your doctor if you continue to have left-sided chest pain or shortness of breath - Keep your appointments as shown below If you have non-emergent questions between now and the time of your follow up appointments: During 8am-5pm Thursday through Thursday call [phone] to speak with a nurse in the cardiology clinic All other times call [phone] and ask to speak to the senior data developer button decorating machine operator. Home oxygen therapy: n/a Arrangements for VNA/home care: n/a Follow up Appointments: Future Appointments Date Time Provider Department Center 03/22/2020 1:30 PM Jluis Perry, DO [facility] RHEUM [facility] 04/25/2020 10:20 AM Gerardo Richter MD [facility] CARD 4A [facility] Vamp Stitcher: Gerardo Richter MD PCP: Mckenna Genao APRN at [phone] PCP appointment on 03/28/2020 at 1:30 PM with Clay Terrell * Attachments The following attachments cannot be sent through Care Everywhere. * Warfarin Safety Tips (Romanian) * Vitamin K Diet (Romanian) * Pulmonary Embolism (Romanian) documented in this encounter Medications at Time of Discharge [...] 10/19/2018 04/08/2022 documented as of this encounter Progress Notes * Jluis Perry DO - 03/20/2020 7:06 PM EST Rheumatology Fellow Inpatient Follow-up Note Reason for Consult: Noah Dumont is a 50 y.o. 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, [facility] - 05/2017), resolved cardiomyopathy w/ pleuropericarditis (EF 59% with normal coronaries in 2018 on cath), h/o??alveolar hemorrhage??(while on lovenox??2016), migraines, JAN, HTN, HLD admitted on 01/17 for atypical chest pain 2/2 pulmonary embolism who we are seeing today at the request of Hunter Navarro MD for evaluation of SLE flare. Interval Hx: - feeling better this AM - still has some chest discomfort but breathing improved - was able to walk around unit without any issue - minimal to no joint symptoms, no rash - NAEON Pertinent Inpatient Med List: ??? flu vacc (6 mos-64 yrs)(PF) (Flulaval Quad) vaccine syringe 0.5 mL ??? aspirin chewable tablet 81 mg ??? warfarin (COUMADIN) daily order reminder AND Consult to Pharmacy ??? sodium chloride 0.9 % (flush) flush 5 mL ??? sodium chloride 0.9 % (flush) flush 5-20 mL ??? lidocaine (XYLOCAINE) 10 mg/mL (1 %) injection 3 mg ??? hydrOXYchloroQUINE (Plaquenil) tablet 200 mg ??? levothyroxine (Synthroid) tablet 25 mcg ??? multivitamin with minerals (THERA-M) tablet 1 tablet ??? pantoprazole EC (Protonix) tablet 40 mg ??? FLUoxetine (PROzac) capsule 40 mg ??? lidocaine (LIDODERM) 5 % patch 1 patch AND lidocaine (LIDODERM) 5 %(700 mg/patch) Patch Removal ??? acetaminophen (Tylenol) tablet 650 mg ??? metoprolol tartrate (Lopressor) tablet 12.5 mg ??? polyethylene glycoL (Miralax) packet 17 g ??? senna-docusate (Pericolace) 8.6-50 mg per tablet 2 tablet ??? melatonin tablet 3 mg Vital Signs: Last value 24hr range T 36.8 ??C (98.2 ??F) Temp: [36.6 ??C (97.9 ??F)-36.9 ??C (98.4 ??F)] HR (!) 107 Heart Rate: [65-107] BP 134/69 BP: (104-138)/(58-72) RR 18 Resp: [18] SpO2 92 % SpO2: [92 %-99 %] Physical Exam: Gen: AAOx3, no acute distress HEENT: NCAT, EOMI, MMM. NECK: supple, no lymphadenopathy CVS: RRR, no m/r/g LUNGS: CTAB, no wheezing or rales ABD: soft, non-tender, non-distended SKIN: no rashes EXTREMITIES: warm and well-perfused, no edema JOINTS: FROM of UE and LE, no joint tenderness or synovitis Labs: Last 3 Lytes Recent Labs 03/20/20 0431 03/19/20 0323 03/18/20 2137 NA 140 141 142 K 4.0 3.8 4.1 CL 103 105 107 CO2 27 27 26 BUN 18 19* 19* CREATININE 0.68* 0.74 0.88 Last 3 LFTs No results for input(s): AST, ALT, ALKPHOS, BILITOT, BILIDIR in the last 7068 hours. Last CRP, SEDRATE Recent Labs 03/19/20 1148 CRP 1.0 SEDRATE 14 Last CBC Lab Results Component Value Date WBC 7.5 03/20/2020 RBC 4.53 03/20/2020 HGB 14.5 03/20/2020 HCT 42.4 03/20/2020 MCV 93.6 03/20/2020 MCH 32.0 03/20/2020 MCHC 34.2 03/20/2020 PLATELET 241 03/20/2020 RDWCV 12.7 03/20/2020 TSH 4.33 Negative troponin UA 100 protein, no blood. Moderate leukocytes and WBCs. Protein:Cr 0.5 INR 2.5 C3 120, C4 20 DsDNA negative ?? Pending: WADE Anti-cardiolipin B2-glycoprotein Lupus anticoagulant Studies: Reviewed Assessment: Noah Dumont is a 50 y.o. 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, [facility] - 05/2017), resolved cardiomyopathy w/ pleuropericarditis (EF 59% with nor mal coronaries in 2018 on cath), h/o??alveolar hemorrhage??(while on lovenox??2016), migraines, JAN, HTN, HLD admitted on 01/17 for atypical chest pain 2/2 pulmonary embolism who we are seeing for evaluation of SLE flare. She currently remains hemodynamically stable and not requiring any supplemental oxygen for her pulmonary embolism. Per discussion with primary team, anticoagulation clinic did mention that at some point she was subtherapeutic and her INR which may be when she developed her pulmonary embolism. Knowing that she was subtherapeutic at 1 point, we will continue with the current INR goal of 2.5-3.5. Ifshe remains therapeutic and develops further clots on Coumadin, we will consider increasing her INRgoal 3-4. At this point it does not appear she is in a lupus flare. Inflammatory markers were normal, complements normal, and double-stranded DNA negative. For now we will continue hydroxychloroquine 200 twicedaily. As an outpatient we will discuss the need for further immunosuppression either with restarting methotrexate or initiation of azathioprine. Recommendations: - continue coumadin with current INR goal 2.5-3.5 - await results of antiphospholipid antibodies - continue HCQ 200mg BID for now - recommend checking TPMT (will assist with expediting azathioprine usage if this chosen as therapy) - consider starting statin therapy - will follow up as an outpatient in rheumatology clinic next week Patient was seen and discussed with Dr. Jesus Perry DO Rheumatology Fellow Pager: [phone] Associated attestation - Kalli Lee DO - 03/20/2020 8:50 PM EST ATTENDING ADDENDUM The patient's history was reviewed, and I interviewed and examined the patient with Dr. Perry. I agree with her summary, findings, and plan. * Christi Granda, RN - 03/20/2020 8:37 AM EST CARE MANAGEMENT DISCHARGE NOTE Chart reviewed, care reviewed with primary team and at interdisciplinary rounds. Patient is medically ready for discharge to home. Needs for Transition of Care: Services Anticipated at Discharge: none Transportation: spouse Current DME: none DME Needed at DC: none This plan was formulated with input from patient, family and team. All are in agreement with plan. Christi Granda, RN, MSN Process Pumper - Cardiology Office of Care Management Pager: [phone] Work * Rivas March MD - 03/20/2020 6:45 AM EST Inpatient Cardiology Progress Note Patient Name: Noah Dumont Date of Admission: 03/18/2020 ( Hospital Day 2 days ) Service: S1 ID: Noah Dumont is a 50 yo F with PMHx of SLE diagnosed at age 21 (on plaquenil and MTx), APS (c/b TIA, distant CVA, miscarriages and thrombocytopenia), on lifelong AC with coumadin, AI s/p mAVR ([facility], [facility] - 05/2017), resolved cardiomyopathy w/ pleuropericarditis (EF 59% with normal coronaries in 2018 on cath), h/o alveolar hemorrhage (while on lovenox 2015), [facility] and found to have L subsegmental PE despite therapeutic INR. Active Problems: - subsegmental PE - APS on lifelong AC 24 hr events: - No acute events overnight - called her AC clinic: INR results were reported as in-range from November 2019 - January 10, 2020. INR on 01/10/20 was 1.9, 01/19/20 was 2.8, 02/22/20 was 1.6 at which time warfarin dose was increased.Patient did not check INR at next scheduled date per PCP office. Based on this report, patient likely had subtherapeutic INR for at least 1 - 2 weeks during February. Continue dosing today per home regimen. - rheum consult yesterday, rec checking B2 glycoprotein, consider up INR to 3-4 or switching to LMWH. Will consider MTX and AZA as outpatient. And consider statin ROS: Denies CP, SOB, palpitations, PND, Orthopnea, dizziness/LH, LE swelling or pain, n/v, abd pain. Telemetry: NSR Meds: Continuous Infusions: Scheduled Meds: ??? aspirin 81 mg Oral Daily ??? warfarin (COUMADIN) daily order reminder Oral Q24H ??? sodium chloride 0.9 % (flush) 5 mL Intravenous BID ??? hydrOXYchloroQUINE 200 mg Oral BID ??? levothyroxine 25 mcg Oral Daily ??? multivitamin with minerals 1 tablet Oral Daily ??? pantoprazole EC 40 mg Oral BID ??? FLUoxetine 40 mg Oral Daily ??? lidocaine 1 patch Transdermal Q24H And ??? lidocaine 1 patch Transdermal Q24H ??? metoprolol tartrate 12.5 mg Oral Q12H [place] PRN Meds:.flu vacc (6 mos-64 yrs)(PF), sodium chloride 0.9 % (flush), lidocaine, acetaminophen, polyethylene glycoL (MIRALAX) oral powder, senna-docusate, melatonin Physical Exam: Last value Range last 24 hrs Temperature Temp: 36.6 ??C (97.9 ??F) Temp: [36.5 ??C (97.7 ??F)-36.9 ??C (98.4 ??F)] Heart Rate Heart Rate: 65 Heart Rate: [56-69] Blood Pressure BP: 125/58 BP: (104-125)/(55-79) Respiratory Rate Resp: 18 Resp: [16-18] SpO2 SpO2: 99 % SpO2: [95 %-99 %] Intake/Output Summary (Last 24 hours) at 03/20/2020 0645 Last data filed at 03/20/2020 0448 Gross per 24 hour Intake 574 ml Output 3250 ml Net -2676 ml cumulative I/O's since admission: Patient Vitals for the past 168 hrs: Weight 03/20/20 0448 79.6 kg (175 lb 7.8 oz) 03/19/20 0722 79.9 kg (176 lb 2.4 oz) 03/19/208 79.9 kg (176 lb 2.4 oz) Admit wt: 79.9 Gen: in bed in NAD; alert, oriented, interactive HEENT: MMM, neck full range of motion. No oral ulcer or thrush CV: RRR, S1S2, no m/r/g, no JVD Resp: CTAB, but ausculation limited by pleuritic chest pain Abd: nondistended, soft, NT, +BS Ext: WWP, 2+ DP pulses, edema - Neuro: CN 2-12 grossly intact, Skin: no rashes Pertinent Labs in the Last 24 Hours: Recent Labs 03/20/2043003/19/2032203/18/202136 WBC 7.5 6.5 6.0 HGB 14.5 13.6 13.2 HCT 42.4 40.1 38.6 PLATELET 241 235 244 Recent Labs 03/20/2043003/19/2032203/18/202136 NA 140 141 142 K 4.0 3.8 4.1 CL 103 105 107 CO2 27 27 26 BUN 18 19* 19* CREATININE 0.68* 0.74 0.88 No results for input(s): AST, ALT, ALKPHOS, BILITOT, BILIDIR in the last 168 hours. Recent Labs 03/20/201 03/19/2032203/18/202136 CALCIUM 9.0 8.6 8.5 MAGNESIUM 0.85 0.80 0.81 Recent Labs 03/20/20 04303/19/203 03/18/20 213 INR 2.5 2.5 2.7 PT 28.8* 28.5* 30.5* PTT 47* 44* 44* Recent Labs 03/19/203 03/18/202136 TROPONINT <0.01 <0.01 C3, C4 nl CRP nl No results for input(s): POCGLU in the last 168 hours. Component Value Date/Time SPGRAVITYUA 1.024 03/19/2020 09 PHUADIP 6.0 03/19/2020 09 PROTEINUADIP 100 (A) 03/19/2020 09 GLUCOSEU Negative 03/19/2020 0926 KETONESUA Negative 03/19/2020 09 UROBILIUADIP Normal 03/19/2020 09 BLOODUADIP Negative 03/19/2020 09 NITRATEUA Negative 03/19/2020 09 LEUKOESTERUA Moderate (A) 03/19/2020 0926 WBCUA 39 (H) 03/19/2020 09 BILIRUBINUA Negative 03/19/2020 09 Imaging/Studies in the Last 24 Hours: TTE 03/18/2020 SUMMARY: ?? 1. The left ventricle is probably normal [...] prior study 06/30/17, no significant changes have occured. ?? Assessment: Noah Dumont is a 50 yo F with PMHx of SLE diagnosed at 30 years ago (on plaquenil and MTx), APS (c/b TIA, distant CVA, miscarriages and thrombocytopenia), on lifelong AC with coumadin, [place] s/p mAVR ([facility], [facility] - 05/2017), resolved cardiomyopathy w/ pleuropericarditis (EF 59% with normal coronaries in 2018 on cath), h/o DAH (while on lovenox), initially presented to [facility] with atypical chest pain and found to have L subsegmental PE after 1-2 weeks of subtherapeutic INR Will try to get her OSH medical record. It is highly possible that she developed subsegmental PE while her INR is below 2. She was not taking MTX for cost issues recently, should this also cause a flare of her APS/SLE is also likely. Her inflammatory markers, C3, C4 and dsDNA were all negative or normal, so concern for lupus activity is relatively low. Thyroid hormone also plays a role in the metabolism of warfarin, her recent discontinuation of levothyroxine and elevated TSH may suggest a hypothyroid physiology leading her need of higher doses of warfarin. Her INR today is 2.5, factor X assay pending, pharmacy on board and assist in adjusting warfarin dosing. PLAN: #suspected Subsegmental PE in setting of therapeutic INR on coumadin #Atypical chest pain -Home warfarin dose: 5mg and 7.5mg alternating QoD -Consult IP warfarin pharmacy management -Consider Heme/Anticoag team consult -continue INR goal of 3 with range 2.5-3.5 -LE DVT study negative -Call [facility] clinic found subtherapeutic recent INRs ?? #Risk of RHF #?pHTN / CTEPH -TTE showed normal LVEF and PA systolic pressure 19mmHg -continue home metop 25mg succinate QD ?? #SLE / APS -Continue home plaquenil -Has been off methotrexate >1 month -Rheumatology to follow as outpatient, consider MTX/AZA ?? #L hemorrhagic renal cyst (5mm) -f/u UA -Consider outpatient Uro follow-up ?? #GERD -home PPI ?? #Hypothyroid -f/u TSH cascade -resume prior synthroid in AM ?? #Depression/anxiety -home fluoxetine 40mg QD ? Other: - DVT prophylaxis: warfarin - GI prophylaxis: PPI - Diet: [facility] - Code Status: FULL - Dispo:Floor status - DPOA: Nicolas Rivas March MD, PGY-1 Cardiology S2(Pager [phone]) 03/20/2020 Associated attestation - Hunter Navarro MD - 03/21/2020 3:24 PM EST Cardiology Attending Addendum: I have personally interviewed and examined the patient and reviewed appropriate data, including labs, ECGs and other diagnostic studies. I agree with the principal findings documented herein. The assessment and plan were formulated in discussion with me. 50-year-old female with a history of lupus complicated by antiphospholipid syndrome with multiple thrombotic events, aortic insufficiency status post mechanical AVR, and pleuropericarditis with normal coronaries in 2018 who presents with atypical chest pain and was found to have a left lower subsegm ental pulmonary embolism. Patient states that her symptoms are similar to her prior pleuropericarditis. Inflammatory markers are normal. Her biomarkers are negative. Her EKG is nonischemic. Her echocardiogram shows normal LV and RV function, LVEF 63%, no regional wall motion abnormalitiesor pericardial effusion. Her aortic valve is well-seated with a mean gradient of 4 mmHg. PASP 19 mmHg. Duplex is negative for DVT. Pertinent Exam: JVP normal; lungs clear; RRR; no edema. Major issues addressed: #APLS #Lupus: off methotrexate at present #Left lower subsegmental pulmonary embolism #Abnormal Stress Test: Presumed microvascular ischemia Plan: -Continue aspirin 81mg daily -Continue coumadin with INR goal 2.5-3.5 -Initiate high potency statin -Increase BB -Manage hypothyroidism -Re-evaluate symptoms in follow up on medical therapy for presumed microvascular disease given normal epicardial coronary arteries in 2018. Hunter Navarro MD Pager [phone] Clinic: [phone] 03/19/20 2:34 PM * Terrie Leo RN - 03/19/2020 3:42 PM EST OUTCOME EVALUATION NOTE: OUTCOME SUMMARY: Pt A&O. VSS. SR on tele. Pt had a duplex of her lower extremities and an Echo done today. UA sent. No new concerns at this time. Will continue to monitor. PLAN MOVING FORWARD: Anticoagulation therapy INDIVIDUALIZED FALL PREVENTION INTERVENTIONS: Patient-specific fall risk factors per assessment: [current deficits]: Monitoring wires, SOB Assistance [level of assistance required for transfers and ambulation]: Ind Supervision [direct monitoring required during toileting and ADLs]: Rings appropriately, knows own limitations, steady on feet Surveillance [continuous indirect monitoring]: Tele, purposeful hourly rounding Patient-specific fall prevention interventions for sensory deficits provided, if applicable: [X] N/A * Lucy Hi RN - 03/19/2020 5:37 AM EST OUTCOME EVALUATION NOTE: OUTCOME SUMMARY: Pt denies CP, nausea, dizziness, or n/t. Pt reported 7/10 headache pain that was resolved upon eating a snack. NSR on tele. No acute events overnight. See doc flowsheet for full pt assessment. Call dowell within reach. VSS. Will continue to monitor. PLAN MOVING FORWARD: Duplex study, echo, UA, d/c planning INDIVIDUALIZED FALL PREVENTION INTERVENTIONS: Patient-specific fall risk factors per assessment: [current deficits]: Hospital environment, lines/devices Assistance [level of assistance required for transfers and ambulation]: SBA Supervision [direct monitoring required during toileting and ADLs]: SBA Surveillance [continuous indirect monitoring]: Tele, hourly rounding Patient-specific fall prevention interventions for sensory deficits provided, if applicable: [X] N/A documented in this encounter H&P Notes * Becky Reynolds MD - 03/19/2020 12:33 AM EST Images from the original note were not included. Cardiology Admission History and Physical Patient Name: Noah Dumont Service: M1-S2 Team Responsible Attending: Dr. Navarro PCP: Mckenna Genao APRN PCP phone #: [phone] ID/Chief Complaint: Subsegmental PE, chest pain History of Present Illness: Noah Dumont is a 50 yo F with PMHx of SLE diagnosed at age 21 (on plaquenil and MTx), APS (c/b TIA, distant CVA, miscarriages and thrombocytopenia), on lifelong AC with coumadin, AI s/p mAVR ([facility], [facility] - 05/2017), resolved cardiomyopathy w/ pleuropericarditis (EF 59% with normal coronaries in 2018 on cath), h/o alveolar hemorrhage (while on lovenox 2015), initially presented to [facility] with atypical chest pain and found to have L subsegmental PE despite therapeutic INR. Initially presented to [facility] today with L-sided CP. There was concern for ACS given initial EKG finding of LVH w/ mild ST elevations and lateral TWIs, however negative trops, normal CBC. Prior EKG from 2 years ago demonstrated similar findings when she presented with similar symptoms, however no evidence of CAD at that time. Her symptoms were non-exertional and had been present at rest for the past 3 weeks without any improvement. Due to history of SLE/APS and high risk for acute plaque rupture,she was loaded with ASA 325 x1, without other forms of anti-platelet agent, and received 1x SLNGT and 2g IV morphine. Initially accepted for transfer for ischemia work-up, and later while en route was informed patient had LLL subsegmental PE without evidence of RH strain on CT, despite being therapeutic on coumadin. On interview, she reports last 3 weeks had significant FATIMA, with as little as doing laundry - had previously been walking 15 miles a day without issue. Has also had persistent 8/10 L chest pain, sometimes radiating to the head and L arm, with headache. Headache is described as undulating from dull to sharp. The pain is at rest and on exertion, while dyspnea and diaphoresis are reported on exertion. Additionally reporting intermittent palpitations and orthostasis (pasting minutes, no LOC), and has had new orthopnea and PND x 3 weeks. States her Fitbit is recording frequently nightly awakenings. Of significance, patient has been off her prescribed methotrexate for over a month due to insurancereasons, and is not sure if any providers have been working towards getting her coverage. Denies missing any doses of her warfarin. She does not know what her recent INRs have been (clinic just tellsher to make changes), however has been closely following up - notes recently they have been increasing her coumadin dose frequently. No recent trauma or immobilizations. Has also not been able to take levothyroxine due to insurance coverage over the past month. Denies any new rashes, joint pains, however has felt chills and hot flashes intermittently. She has residual L sided UE weakness from prior stroke. Has chronic baseline nausea and constipation. Review of Systems: Negative except for mentioned in HPI. Problem List/Past Medical History Patient Active Problem List Diagnosis ??? 47 [...] 2004 and 2011 Cardiac catheterization 04/01/12: RAP-13 PAP-//, PCWP-13, CO/CI-4.12/2.23; LVEF 60% infero-apical akinesis, inferior [...] ??? Hypertension ??? Depression and anxiety ??? Pulmonary embolism ??? Gross hematuria--- while [...] infarction---at age 21 Age 21 ??? Migraine Meds: No current facility-administered medications on file prior to encounter. Current Outpatient Medications on File Prior to Encounter Medication Sig Dispense Refill ??? FLUoxetine (PROzac) 40 mg Capsule Take 40 mg by mouth daily. ??? metoprolol succinate XL (Toprol-XL) 25 mg Tablet Sustained Release 24 hr Take 25 mg by mouth daily. ??? folic acid (FOLVITE) 1 mg Tablet Take 1 tablet by mouth daily. 90 tablet 3 ??? pantoprazole (PROTONIX) 40 mg Tablet, Delayed Release (E.C.) Take 40 mg by mouth 2 times daily. ??? warfarin (COUMADIN) 1 mg Tablet Take 1 mg by mouth daily. Variable by day ??? aspirin 81 mg Tablet, Chewable Take 81 mg by mouth daily. 30 tablet 3 ??? warfarin (COUMADIN) 5 mg tablet As directed ??? multivitamin with minerals tablet 1 Tablet(s), PO, Once daily ??? hydrOXYchloroQUINE (Plaquenil) 200 mg Tablet Take 1 tablet by mouth 2 times daily. Indications:systemic lupus erythematosus, an autoimmune disease 60 tablet 0 ??? metHOTREXate, PF, 25 mg/mL Solution INJECT 0.6 MILLILITERS SUBCUTANEOUSLY ONCE A WEEK 10 mL 0 ??? metHOTREXate 25 mg/mL Solution Inject 0.6 mLs subcutaneously once a week. 10 mL 3 ??? diclofenac (VOLTAREN) 1 % Gel Apply 2 g topically 3 times daily as needed. 100 g 1 ??? Syringe with Needle, Safety ([employer]LLAN SYRINGE) 1 mL 27 gauge x 1/2 Syringe To be used for Injectable Methotrexate weekly 12 Syringe 3 ??? acetaminophen (TYLENOL) 500 mg Tablet Take 2 tablets by mouth every 6 hours as needed for Pain.30 tablet 1 ??? cetirizine (ZYRTEC) 10 mg Tablet Take 10 mg by mouth daily. ??? LEVOTHYROXINE SODIUM (LEVOTHYROXINE ORAL) Take 25 mcg by mouth daily. Dosage Unknown Allergies: Allergies Allergen Reactions ??? Tramadol Upset stomach Family History: None reported Social History: Nonsmoker, no alcohol use, no recreational drug use. Not working, lives with Cale in [place], [place]. Has two adult children. Vitals: Last value Range last 24 hrs Temperature Temp: 37 ??C (98.6 ??F) Temp: [37 ??C (98.6 ??F)] Heart Rate Heart Rate: 70 Heart Rate: [70] Blood Pressure BP: 142/69 BP: (142)/(69) Respiratory Rate Resp: 18 Resp: [18] SpO2 SpO2: 98 % SpO2: [98 %] Examination: General: Pleasant, alert, appropriate, in NAD. Appears stated age. HEENT: MMM. Neck is tender L>R, +ROM tenderness but full ROM L shoulder: TTP, +ROM tenderness, no palpable effusion/swelling Neck: Supple with normal ROM. No obvious LAD. JVD ~2cm above clavicle Cardiac: +click present Respiratory: limited exam due to pleuritic CP, no audible W/R/C Abd: + BS; soft, non-tender, non-distended, no obvious masses. Ext: WWP without le edema, cyanosis or clubbing. DPP 2+ bilaterally. No joint reddness/warmth/swelling UE/LE Neuro: II-XII grossly intact. Alert and orientated, no-focal deficits, sensation intact to crude touch. Strength 5/5 nitin UE/LE. Skin: No rashs, no lesions, no petechiae Laboratory: CBC: Recent Labs 03/18/202136 WBC 6.0 HGB 13.2 PLATELET 244 Chemistry: No results for input(s): NA, K, CL, CO2, BUN, CREATININE, GLUCOSE in the last 7068 hours. No results for input(s): CALCIUM, MAGNESIUM, PHOS in the last 7068 hours. LFT's: No results for input(s): BILITOT, BILIDIR, ALBUMIN, ALKPHOS, ALT, AST in the last 7068 hours. Coags: Recent Labs 03/18/202136 PT 30.5* INR 2.7 PTT 44* Cardiac enzymes: Recent Labs 03/18/202136 TROPONINT <0.01 Endocrine: No results for input(s): TSH, CORTISOL in the last 7068 hours. Invalid input(s): [id number] Heme: No results for input(s): LDH, HAPTOGLOBIN, URICACID in the last 168 hours. Microbiology: None Diagnostic Studies: EKG- [facility] Initial: Subsequent 1 hour later: 2018 EKG with prior CP CTPE [facility]: -LLL subsegmental PE -Multiple bilateral simple renal cortical cysts. Subcentimeter left lateral hemorrhagic 5 mm cyst -RV:LV ratio 0.98 ASSESSMENT: Noah Dumont is a 50 yo F with PMHx of SLE diagnosed at 32 years ago (on plaquenil and MTx), APS(c/b TIA, distant CVA, miscarriages and thrombocytopenia), on lifelong AC with coumadin, AR s/p mAVR (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 Lower suspicion for ACS/acute plaque rupture given finding of PE, and atypical CP symptoms, lack oftroponin elevation and reassuring bedside echo. Formal echo is warranted to assess for WMA and her prosthetic mechanical AV. Would not immediately proceed to cardiac cath given prior normal studies. Also is unclear duration of her PE and whether she has had PE in the past, and whether her INR has been consistently therapeutic. Raises question of need to change in anticoagulation regimen if development of PE in setting of consistently therapeutic INR. Additionally raises concern for development of pHTN/CTEPH and RH strain / failure (alhtough no evidence of acute decompensation at this time), with normal RV/LV ratio. There is no history of any missed warfarin doses and as far as able to tell she has been therapeutic, however should confirm with outpatient clinic in the morning. Warrants involvement of hematology / anticoagulation team for assistance in management of this complicated case. She has a history of DAH resulting from lovenox in the past (unsure if ppx or therapeutic at the time). Possible progression/exacerbation of her underlying SLE/APS as she has been off met hotrexate over the past month without any providers following. She currently only sees her PCP on aregular basis. Undertreated SLE can explain dysregulation of her coagulation cascade and result in thrombosis despite therapeutic INR. Warfarin does inhibit protein C/S, and would also be concerned this is contributing to her development of PE (no evidence of skin necrosis or other manifestations).For now will continue home warfarin pending further recommendations from our consultants tomorrow. Additionally patient has been noted to have hematuria in the past, and is seen to have 5mm hemorrhagic cyst on CT. May need further work-up by urology, however no emergent need. Will obtain UA. Rest of plan as follows: PLAN: Admit to Cardiology, S2 Team Pager # [phone] #Subsegmental PE in setting of therapeutic INR on coumadin #Atypical chest pain -Home warfarin dose: 5mg and 7.5mg alternating QoD -Consult IP warfarin pharmacy management -Consider Heme/Anticoag team consult -LE DVT study -Call [facility] clinic regarding recent INRs tomorrow #Risk of RHF #?pHTN / CTEPH -f/u formal echo -continue home metop 25mg succinate QD #SLE / APS -Continue home plaquenil -Has been off methotrexate >1 month -Consult to Rheumatology placed for management and resumption of MTX #L hemorrhagic renal cyst (5mm) -f/u UA -Consider outpatient Uro follow-up #GERD -home PPI #Hypothyroid -f/u TSH cascade -resume prior synthroid in AM #Depression/anxiety -home fluoxetine 40mg QD Other: - DVT prophylaxis: warfarin - GI prophylaxis: PPI - Diet: [facility] - Code Status: FULL - Dispo:Floor status - DPOA: Nicolas Becky Reynolds MD Internal Medicine PGY-2 Associated attestation - Hunter Navarro MD - 03/19/2020 2:50 PM EST Cardiology Attending Addendum: I have personally interviewed and examined the patient and reviewed appropriate data, including labs, ECGs and other diagnostic studies. I agree with the principal findings documented herein. The assessment and plan were formulated in discussion with me. 50-year-old female with a history of lupus complicated by antiphospholipid syndrome with multiple thrombotic events, aortic insufficiency status post mechanical AVR, and pleuropericarditis with normal coronaries in 2018 who presents with atypical chest pain and was found to have a left lower subsegm ental pulmonary embolism. Patient states that her symptoms are similar to her prior pleuropericarditis. Inflammatory markers are normal. Her biomarkers are negative. Her EKG is nonischemic. Her echocardiogram shows normal LV and RV function, LVEF 63%, no regional wall motion abnormalitiesor pericardial effusion. Her aortic valve is well-seated with a mean gradient of 4 mmHg. PASP 19 mmHg. Duplex is negative for DVT. Pertinent Exam: JVP normal; lungs clear; RRR; no edema. Major issues addressed: #APLS #Lupus: off methotrexate at present #Left lower subsegmental pulmonary embolism #Atypical chest pain Plan: -Monitor lupus disease activity with complements, dsDNA, WADE -Continue aspirin 81mg daily -Continue coumadin -Monitor therapeutic efficacy of current Coumadin regimen with factor X assay -Obtain outpatient INRs -Case discussed with Dr. Richter. -Consult rheum for management of methotrexate/immunosuppression Hunter Navarro MD Pager [phone] Clinic: [phone] 03/19/20 2:34 PM documented in this encounter Miscellaneous Notes * Consult Note - Flavia Minaya, [facility] - 03/21/2020 1:32 PM EST Pharmacy Warfarin Management Service Daily Consult Note: Warfarin Management Plan: Ordering Provider: Becky Reynolds MD Indications: Mechanical Aortic Valve, APS, Other (Enter Comment)(SLE) Status: Continuation of Home Therapy Goal INR: : 2.5 - 3.5 Outpatient Warfarin Management: (Mckenna Genao APRN, [facility], ) Duration of Therapy: Indefinite Previous home regimen: Warfarin 7.5 mg x 6 days, 6 mg x 1 day (weekly), last reported 02/23/20. Recent INR results reported in note. Date INR Dose Ordered Pharmacist Assessment 03/19/2020 2.5 7.5 mg Confirmed INR goal (2.5 - 3.5) and warfarin dose history with patient's primary care physician office. INR results were reported as in- range from November 2019 - January 10, 2020. INR on 01/10/20 was 1.9, 01/19/20 was 2.8, 02/22/20 was 1.6 at which time warfarin dose was increased. Patient did not check INR at next scheduled date per PCP office. Based on this report, patient likely had subtherapeutic INR for at least 1 - 2 weeks during February. Continue dosing today per home regimen. 03/20/2020 2.5 7.5 mg INR remains therapeutic on home regimen. Noted change is reported recently stopping levothyroxine at home. Stopping thyroid supplementation while on warfarin may cause decreasedwarfarin effect and subtherapeutic INR (hypothyroid induced). Stopping levothyroxine may have precip itated subtherapeutic INR in February. Reinitiation of levothyroxine will cause increased warfarin effect within 7-10 days. More frequent INR monitoring is recommended. Discharge dose planning: recommend continuation of home dose 7.5 mg daily with INR on Thursday. 03/21/2020 2.9 7.5 mg INR up 0.4 from yesterday. Okay to continue with warfarin home regimen of 7.5mg for today and monitor trend tomorrow. If continues to increase significantly, would recommend a decrease in dose. Recent Labs 03/21/20 0343 03/20/20 0431 03/19/20 0323 PT 32.8* 28.8* 28.5* INR 2.9 2.5 2.5 PTT 43* 47* 44* HGB 14.0 14.5 13.6 HCT 41.2 42.4 40.1 PLATELET 223 241 235 BUN 18 18 19* CREATININE 0.73 0.68* 0.74 Estimated Creatinine Clearance: 94.3 mL/min (based on SCr of 0.73 mg/dL). Warfarin Drug Interactions (clinically relevant): aspirin 81 mg daily, levothyroxine 25 mcg daily Assessment: Relevant past medical history: hx cerebral infarction (age 21), SLE, antiphospholipid antibody syndrome, hx mechanical AVR (2018) Warfarin Sensitivity Assessment: Age Less than 50 years old;Baseline INR less than 1.2 Today's INR: 2.9 is Therapeutic Pharmacist Asessment Notes: INR up 0.4 from yesterday. Okay to continue with warfarin home regimen of 7.5 mg for today and monitor trend tomorrow. If continues to increase significantly, would recommend a decrease in dose. Plan: Warfarin dose ordered: 7.5 mg Pharmacist Plan notes: daily INR, recommend daily CBC Discharge Planning: Patient education: Completed Coumadin education booklet provided: Yes AVS documentation: In Progress Healthwise documents attached to AVS: Vitamin K Diet, Warfarin Discharge Dosing Recommendations: Recommend warfarin 7.5 mg daily 03/20, 03/21, 03/22 with INR check on 03/23/20. Thank you very much for the consult. We will continue to dose and monitor warfarin daily. If there is a change in medical condition that warrants discontinuation of warfarin, please discontinue the pharmacy warfarin consult and communicate this to the pharmacy warfarin management service. Pharmacy warfarin management service pager: #[phone] Flavia Minaya RPH * Plan of Care - Michelle Wren RN - 03/21/2020 2:17 AM EST Problem: Patient Care Overview Goal: Plan of Care Review Outcome: Ongoing (Interventions Implemented as Appropriate) 03/21/20 0214 Coping/Psychosocial Plan Of Care Reviewed With patient OUTCOME EVALUATION NOTE: OUTCOME SUMMARY: Pt slept between care. Pt denies any pain. Pt reports intermittent SOB, states she has had this since admission. NPO at midnight for stress test. Independent to bathroom. Will continue to monitor PLAN MOVING FORWARD: Stress test, prepare for discharge INDIVIDUALIZED FALL PREVENTION INTERVENTIONS: Patient-specific fall risk factors per assessment: [current deficits]: Hospital environment Assistance [level of assistance required for transfers and ambulation]: ind Supervision [direct monitoring required during toileting and ADLs]: ind Surveillance [continuous indirect monitoring]: Hourly rounding Patient-specific fall prevention interventions for sensory deficits provided, if applicable: CPG GOAL OUTCOME EVALUATION: * Consult Note - Veena Dyer MD - 03/20/2020 5:45 PM EST ONCOLOGY CONSULTATION NOTE Date: 03/20/20 PCP: Mckenna Genao APRN Requesting Service: Cardiology Service Reason for Consult: Anticoagulation recs in patient w/ APS HPI: 50 yo female w/ hx of SLE and antiphospholipid syndrome c/b prior stroke and multiple miscarriages and AI s/p mAVR (2018) on lifelong AC w/ warfarin (goal INR 2.5-3.5) who was transferred to [facility] after presenting to OSH w/ progressive FATIMA, atypical CP w/ concern for PE. Initially presented to [facility] today with exertional CP; reports that she has been having worsening FATIMA and chest pain over the past several weeks. Her usual exercise routine of walking up hill became more challenging; she would have to stop and catch her breath. Seemed to be getting progressively worse so presented to ED. Initial concern for ACS given EKG findings of LVH w/ mild ST elevations and lateral TWIs, however negative trops. Prior EKG w/ similar findings; cath'd in 2018 w/ normal coronaries. CT PE study with prelim read reporting left lower subsegmental PE however, formal CT read did not report this finding. Transferred to [facility]. Her echocardiogram showed normal LV and RV function, LVEF 63%, no regional wall motion abnormalities or pericardial effusion. Duplex is negative for DVT. Outside CT imaging was not reviewed here at [facility] and is not currently available in our system. Of note, she has historically been on methotrexate for her SLE however, she discontinued this several months ago due to cost. Inflammatory markers are not elevated. Rheum consulted will follow-up with her. Also stopped Synthroid recently. From coag perspective, she has been on life-long warfarin after suffering a stroke in the setting of SLE and APS. Her INR goal was increased to 2.5-3.5 after mAVR repair in 2018. We obtained records from antico clinic in [facility]; her INR has been subtherapeutic on multiple occasions over the past several months with the following documented: 01/10/2020: INR 1.9 01/19/2020: INR 2.8 02/22/2020: INR 1.6 02/23/2020: INR 1.6 03/18/2020: INR 2.9 See scanned reports for additional data Has had some bleeding complications in the past w/ alveolar hemorrhage in 2016 while on Lovenox andhematuria while on heparin in setting of mAVR repair in 2018. Denies recent bleeding issues; no hemoptysis, hematuria, epistaxis, vaginal bleeding, blood in her stool. ROS: 12-point review of systems evaluated, positive as noted in HPI, otherwise diffusely negative PMH: Active Ambulatory Problems Diagnosis Date Noted ??? Depression and anxiety ??? Dilated cardiomyopathy--- noted in 2003, improved 10/21/2010 ??? Hypertension 10/21/2010 ??? Systemic lupus erythematosus 11/27/2010 ??? Antiphospholipid antibody----- use antiXa level to dose heparin. 11/27/2010 ??? Cerebral infarction---at age 21 03/22/2012 ??? JAN on CPAP 03/22/2012 ??? Migraine 03/22/2012 ??? Hyperlipemia 03/22/2012 ??? Chest pain-- normal cors by cath in 2004 and 201104/01/2012 ??? Osteoporosis 04/01/2012 ??? H/O total knee replacement 04/01/2012 ??? [address] Alegre with severe AI, SLE, and APLS admitted for conversion to heparin prior to AVR. Course c/b gross hematuria, CHARLES, cp, anxiety. 05/17/2017 ??? Gross hematuria--- while on heparin 05/23/2017 Resolved Ambulatory Problems Diagnosis Date Noted ??? Human parvovirus infection-resolved 04/06/2003 Past Medical History: Diagnosis Date ??? Anxiety ??? Cerebrovascular accident ??? CHF (congestive heart failure) ??? FATIMA (dyspnea on exertion) 04/01/2012 ??? JAN (obstructive sleep apnea) MEDICATIONS: Reviewed in eDH ALLERGIES: Allergies Allergen Reactions ??? Tramadol Upset stomach FAMILY HISTORY: Family History Problem Relation Age of Onset ??? Coronary Artery Disease Father Biological father SOCIAL HISTORY: Social History Socioeconomic History ??? Marital status: Spouse name: Not on file ??? Number of children: Not on file ??? Years of education: Not on file ??? Highest education level: Not on file Occupational History ??? Not on file Social Needs ??? Financial resource strain: Not on file ??? Food insecurity Worry: Not on file Inability: Not on file ??? Transportation needs Medical: Not on file Non-medical: Not on file Tobacco Use ??? Smoking status: Former Smoker Quit date: 10/22/2007 Years since quittin.4 ??? Smokeless tobacco: Never Used Substance and Sexual Activity ??? Alcohol use: No ??? Drug use: No ??? Sexual activity: Not on file Comment: Deferred Lifestyle ??? Physical activity Days per week: Not on file Minutes per session: Not on file ??? Stress: Not on file Relationships ??? Social connections Talks on phone: Not on file Gets together: Not on file Attends sabianist service: Not on file Active member of club or organization: Not on file Attends meetings of clubs or organizations: Not on file Relationship status: Not on file ??? Intimate partner violence Fear of current or ex partner: Not on file Emotionally abused: Not on file Physically abused: Not on file Forced sexual activity: Not on file Other Topics Concern ??? Not on file Social History Narrative ??? Not on file PHYSICAL EXAM: BP 134/69 (BP Location (NBP): Left arm, Patient Position: Lying) Pulse (!) 107 Temp 36.8 ??C (98.2 ??F) (Oral) Resp 18 Ht 160 cm (5' 2.99) Wt 79.6 kg (175 lb 7.8 oz) SpO2 92% BMI 31.09kg/m?? GEN: resting comfortably, NAD CV: RRR no rub appreciated RESP: clear to auscultation bilaterally, no crackles or wheezing ABD: soft, non-distended, non-tender to deep palpation, no hepatosplenomegaly EXT: no edema; no joint tenderness or inflammation noted LABS/WORK-UP: CBC Lab Results Component Value Date WBC 7.5 03/20/2020 Hemoglobin 14.5 03/20/2020 Hematocrit 42.4 03/20/2020 Platelets 241 03/20/2020 Lab Results Component Value Date Sodium 140 03/20/2020 Potassium 4.0 03/20/2020 Chloride 103 03/20/2020 CO2 27 03/20/2020 BUN 18 03/20/2020 Creatinine 0.68 (L) 03/20/2020 Glucose Lvl 93 03/20/2020 LAB RESULTS: [id number] NOAH DUMONT 06/28/2002 Anti-Cardiolipin IgG 54 H * Anti-Cardiolipin IgM <11 * Kjuh-7-Zagsgjqykse I IgG >100 Blfz-3-Eitzutlsxlzk I IgM <21 * ?? LAB RESULTS: [id number] NOAH DUMONT 06/28/2002 Lupus Anticoagulant POSITIVE Repeat APS labs in 10/2018: dRVVT: 1.72 Silica clotting time: 1.6 Cardiolipin Ig.3 Cardiolipin IgM : <9.4 Beta-2 glycoprotein not checked ASSESSMENT: 50 yo female w/ hx of SLE and antiphospholipid syndrome c/b prior stroke and multiple miscarriages and AI s/p mAVR (2018) on lifelong AC w/ warfarin (goal INR 2.5-3.5) who was transferred to [facility] after presenting to OSH w/ progressive FATIMA, atypical CP w/ concern for PE. Hematology was consulted foranticoagulation recommendations given concern for warfarin failure in setting of reported PE. We spent considerable time obtaining/reviewing the records from [facility] and [facility] clinic which revealed several interesting findings (now available in scan docs): 1. The final report for the CTA Chest states No evidence of acute pulmonary emboli despite the preliminary report stating concern for left lower sub- segmental PE. As such, it would seem as though the patient did not have an actual PE; given the uncertainty, would strongly encourage to have these images pushed to the [facility] system for internal review to confirm OSH findings. 2. The patient's INR has been subtherapeutic on multiple occasions over the last several months; inaddition, she tends to be on the low end of range when she is therapeutic. Thus, as discussed at length with primary team, we would not consider this to be warfarin failure even if PE was confirmed as she has been subtherapeutic almost 50% of the time over the last several months. As such, the recommendation would be to continue with range of 2.5-3.5 w/ target of INR 3.0. Therefore, raising the INR goal is not indicated at this time and comes with the obvious risk of increased bleeding and she has had problems with this in the past. She will need to have more frequent checks with the AC clinic until she has demonstrated more stable INR. The etiology of her chest pain and FATIMA remains unclear at this time would defer to cardiology for additional work-up. If negative, I do wonder about pulmonary involvement from SLE as most patients will show evidence of lung involvement over the course of disease. The presence of FATIMA w/ repeated episodes of pleuritic chest pain w/o obvious CT changes does make one consider the possibility of SLE as cause ( ? shrinking lung syndrome); if no alternative dx, would strongly consider PFTs to evaluate further. Patient was seen and discussed with Hematology/Coag attending Dr. Dyer. Robert Boyd DO Hematology/Oncology Fellow Pager [phone] +*+*+*+*+*+*+*+*+*+*+*+*+*+*+*+*+*+*+*+*+*+*+*+*+*+*+*+*+*+*+*+*+*+*+*+*+*+* Thrombosis Attending Physician I have independently interviewed and examined this patient and have personally reviewed the relevant clinical, laboratory and radiological data with Dr. Boyd,Hematology/Oncology Fellow. Please referto the comprehensive consultation note above, with which I concur, for complete details of our encounter with this patient. I have reviewed and endorse the recommendations as outlined and have made any additions/corrections below. Ms. Dumont is a 50 Y F with history of CVA, triple pos.antiphospholipid syndrome, SLE, s/p mechanical aortic valve replacement, hypothyroidism who presented with progressively dyspnea on exertion associated with substernal chest pain for at least 3 weeks. She presented to outside hospital and prelim report showed a subsegmental pulmonary embolism. She was referred to [facility] for further management given her new PE while on warfarin. I personally called to request the final result of CTA from PCP's office and the final read of CTA showed no evidence of pulmonary embolism. I strongly recommended the team to request the imaging to be pushed to our system and requested an official second read from our radiologist. The imaging willbe helpful to identify other pulmonary process that could explain her symptom. I also requested the recent INR levels from her PCP from several months. Her INR levels have been sub therapeutic at several occasions and including the one in Feb 2020 when she presented with her symptom. Even if she indeed did have a new subsegmental PE, this likely occurred in the setting of subtherapeutic INR. Therefore, I see no indication to raise her INR goal to higher goal. Previously shedid have history of alveolar hemorrhage and also hx of hematuria in the setting of anticoagulation.While higher intensity anticoagulation may reduce risk of VTE recurrence, but it comes with an expense of bleeding risk. At this current time, I strongly recommend to keep her at the same goal - target INR at 3 (range 2.5-3.5). I recommend more frequent INR check. Her INR on this admission is therapeutic at 2.7. The presence of lupus anticoagulant usually prolongs aPTT and minimally affect PT/INR, unless LA is very strongly pos. Her previous baseline aPTT in 2017 was suprisingly normal as well as INR. Therefore, I think that INR 2.7 reflects appropriate suppression of coagulation factors, negin with factor 10 activity at 10%. Even if there was a subsegmental PE, her symptom seems to be out of proportion, I strongly recommend to complete cardiac work up - consider stress test. One has to keep in mind that antiphospholipid syndrome is associated with risk for developing both venous thromboembolism,but also arterial disease. PLAN 1. Please request CTA imaging from outside hospital to be uploaded in our system and request an official second read from our radiologist to confirm the diagnosis of pulmonary embolism 2. Continue warfarin at INR goal of 3 (range 2.5-3.5) 3. Continue low dose aspirin 81 mg PO daily for secondary cardiovascular prevention 4. Recommend further work up for her dyspnea and chest pain - ? stress test, if cardiac work up neg, consider pulmonary work up We have uploaded the official report of CTA and also INR levels into scanned document. Veena Dyer MD Addendum 03/21/2020 I called [facility] and asked them to push the CTA imaging to our system which will be uploaded in the system soon for review. Will ask team to request a second read. Veena Dyer MD * Consult Note - Kuldeep Aguilar, [facility] - 03/20/2020 10:58 AM EST Pharmacy Warfarin Management Service Daily Consult Note: Warfarin Management Plan: Ordering Provider: Becky Reynolds MD Indications: Mechanical Aortic Valve, APS, Other (Enter Comment)(SLE) Status: Continuation of Home Therapy Goal INR: : 2.5 - 3.5 Outpatient Warfarin Management: (Mckenna Genao APRN, [facility], ) Duration of Therapy: Indefinite Previous home regimen: Warfarin 7.5 mg x 6 days, 6 mg x 1 day (weekly), last reported 02/23/20. Recent INR results reported in note. Date INR Dose Ordered Pharmacist Assessment 03/19/2020 2.5 7.5 mg Confirmed INR goal (2.5 - 3.5) and warfarin dose history with patient's primary care physician office. INR results were reported as in- range from November 2019 - January 10, 2020. INR on 01/10/20 was 1.9, 01/19/20 was 2.8, 02/22/20 was 1.6 at which time warfarin dose was increased. Patient did not check INR at next scheduled date per PCP office. Based on this report, patient likely had subtherapeutic INR for at least 1 - 2 weeks during February. Continue dosing today per home regimen. 03/20/2020 2.5 7.5 mg INR remains therapeutic on home regimen. Noted change is reported recently stopping levothyroxine at home. Stopping thyroid supplemetation while on warfarin may cause decreased warfarin effect and subtherapeutic INR (hypothyroid induced). Stopping levothyroxine may have precipitated subtherapeutic INR in February. Reinitiation of levothyroxine will cause increased warfarin effect within 7-10 days. More frequent INR monitoring is recommended. Dischage dose planning: recommend continuation of home dose 7.5 mg daily with INR on Thursday. Recent Labs 03/20/20 0431 03/19/20 0323 03/18/20 2137 PT 28.8* 28.5* 30.5* INR 2.5 2.5 2.7 PTT 47* 44* 44* HGB 14.5 13.6 13.2 HCT 42.4 40.1 38.6 PLATELET 241 235 244 BUN 18 19* 19* CREATININE 0.68* 0.74 0.88 Estimated Creatinine Clearance: 101.1 mL/min (A) (based on SCr of 0.68 mg/dL (L)). Warfarin Drug Interactions (clinically relevant): aspirin 81 mg daily, levothyroxine 25 mcg daily Assessment: Relevant past medical history: hx cerebral infarction (age 21), SLE, antiphospholipid antibody syndrome, hx mechanical AVR (2018) Warfarin Sensitivity Assessment: Age Less than 50 years old;Baseline INR less than 1.2 Today's INR: 2.5 is Therapeutic Pharmacist Asessment Notes: INR remains therapeutic on home regimen. Noted change is reported recently stopping levothyroxine at home. Stopping thyroid supplemetation while on warfarin may cause decreased warfarin effect and subtherapeutic INR (hypothyroid induced). Stopping levothyroxine may have p recipitated subtherapeutic INR in February. Reinitiation of levothyroxine will cause increased warfarin effect within 7-10 days. More frequent INR monitoring is recommended. Dischage dose planning: recommend continuation of home dose 7.5 mg daily with INR on Thursday. Plan: Warfarin dose ordered: 7.5 mg Pharmacist Plan notes: daily INR, recommend daily CBC Discharge Planning: Patient education: Completed Coumadin education booklet provided: Yes AVS documentation: In Progress [place] documents attached to AVS: Vitamin K Diet, Warfarin Discharge Dosing Recommendations: Recommend warfarin 7.5 mg daily 03/20, 03/21, 03/22 with INR check on 03/23/20. Thank you very much for the consult. We will continue to dose and monitor warfarin daily. If there is a change in medical condition that warrants discontinuation of warfarin, please discontinue the pharmacy warfarin consult and communicate this to the pharmacy warfarin management service. Pharmacy warfarin management service pager: #[phone] [facility] * Plan of Care - Kalli Foley RN - 03/20/2020 2:28 AM EST Problem: Patient Care Overview Goal: Plan of Care Review Outcome: Ongoing (Interventions Implemented as Appropriate) OUTCOME EVALUATION NOTE: OUTCOME SUMMARY: Patient had a good night, able to rest in between cares. VSS, on room air. NSR on tele monitor. Patient denies chest pain/SOB. Ambulated in the room to bathroom independently. Tolerated oral intake well. Active bowel sounds, no BM this shift. Voided in the toilet with adequate UOP. All issues/conerns addressed. Continue to monitor. PLAN MOVING FORWARD: Monitor V/S, Tele monitor Anticoagulation therapy INDIVIDUALIZED FALL PREVENTION INTERVENTIONS: Patient-specific fall risk factors per assessment: [current deficits]: Unfamiliar environment, wires/hospital environment Assistance [level of assistance required for transfers and ambulation]: Independent Supervision [direct monitoring required during toileting and ADLs]: eyes on/arm reach Surveillance [continuous indirect monitoring]: Purposeful hourly rounding, call light within reach,safety precaution maintained. Patient-specific fall prevention interventions for sensory deficits provided, if applicable: [X] Yes CPG GOAL OUTCOME EVALUATION: Ongoing * Consult Note - Kuldeep Aguilar [facility] - 03/19/2020 3:36 PM EST Pharmacy Warfarin Management Service Daily Consult Note: Warfarin Management Plan: Ordering Provider: Becky Reynolds MD Indications: Mechanical Aortic Valve, APS, Other (Enter Comment)(SLE) Status: Continuation of Home Therapy Goal INR: : 2.5 - 3.5 Outpatient Warfarin Management: ([facility], [facility], ) Duration of Therapy: Indefinite Previous home regimen: Warfarin 7.5 mg x 6 days, 6 mg x 1 day (weekly), last reported 02/23/20. Recent INR results reported in note. Date INR Dose Ordered Pharmacist Assessment 03/19/2020 2.5 7.5 mg Confirmed INR goal (2.5 - 3.5) and warfarin dose history with patient's primary care physician office. INR results were reported as in- range from November 2019 - January 10, 2020. INR on 01/10/20 was 1.9, 01/19/20 was 2.8, 02/22/20 was 1.6 at which time warfarin dose was increased. Patient did not check INR at next scheduled date per PCP office. Based on this report, patient likely had subtherapeutic INR for at least 1 - 2 weeks during February. Continue dosing today per home regimen. Recent Labs 03/19/20 0323 03/18/20 2137 PT 28.5* 30.5* INR 2.5 2.7 PTT 44* 44* HGB 13.6 13.2 HCT 40.1 38.6 PLATELET 235 244 BUN 19* 19* CREATININE 0.74 0.88 Estimated Creatinine Clearance: 93.1 mL/min (based on SCr of 0.74 mg/dL). Warfarin Drug Interactions (clinically relevant): aspirin 81 mg daily Assessment: Relevant past medical history: hx cerebral infarction (age 21), SLE, antiphospholipid antibody syndrome, hx mechanical AVR (2018) Warfarin Sensitivity Assessment: Age Less than 50 years old;Baseline INR less than 1.2 Today's INR: 2.5 is Therapeutic Pharmacist Asessment Notes: Confirmed INR goal (2.5 - 3.5) and [facility] INR results were reported as in-range from November 2019 - January 10, 2020. INR on 01/10/20 was 1.9, 01/19/20 was 2.8, 02/22/20 was 1.6 at which time warfarin dose was increased. Patient did not check INR at next scheduled date per PCP office. Based on this report, patient likely had subtherapeutic INR for at least 1 - 2 weeks during February. Continue dosing today perhome regimen. Plan: Warfarin dose ordered: 7.5 mg Pharmacist Plan notes: daily INR, recommend daily CBC Discharge Planning: Patient education: Completed Coumadin education booklet provided: Yes AVS documentation: In Progress [place] documents attached to AVS: Vitamin K Diet, Warfarin Thank you very much for the consult. We will continue to dose and monitor warfarin daily. If there is a change in medical condition that warrants discontinuation of warfarin, please discontinue the pharmacy warfarin consult and communicate this to the pharmacy warfarin management service. Pharmacy warfarin management service pager: #[phone] KULDEEP AGUILAR RP * Consult Note - Jluis Perry DO - 03/19/2020 12:49 PM EST Rheumatology Inpatient Consult Note Reason for Consult: Noah Dumont is a 50 y.o. 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, [facility] - 05/2017), resolved cardiomyopathy w/ pleuropericarditis (EF 59% with normal coronaries in 2018 on cath), h/o??alveolar hemorrhage??(while on lovenox??2015), migraines, JAN, HTN, HLD admitted on 01/17 for atypical chest pain 2/2 pulmonary embolism who we are seeing today at the request of Hunter Navarro MD for evaluation of SLE flare. #Rheumatologic History # SLE with discoid rash, arthritis, oral [...] sc and daily folic acid IN 10/2018 - last flare of SLE in October 2019, seen by PCP, had joint pains and aches, fatigue, fogginess, givenPrednisone 40mg x5 days ?? # Antiphosphoid lipid antibody syndrome associated [...] further episodes of bleeding since her cystoscopy. HPI: She initially presented to [facility] yesterday due to atypical chest pain that has been ongoing for 3 weeks. Yesterday she was sitting with her and after standing up became dizzy and lightheaded. Tried to eat something thinking she had hypoglycemia but no change in symptoms. Also had SOB. Went to local ER. Outside EKG showed mild ST elevations with lateral T-wave inversions that was similar toa previous EKG. Negative troponin. CT chest showed subsegmental PE in LLL without evidence of rightheart strain. Incidental finding of left kidney 5mm hemorrhagic cyst. She was subsequntly transferred to [facility] for further management. Hx of SLE since age 21. She has not been seen in our clinic since October 2018. She was previously on HCQ 200mg BID with SQ MTX 15mg weekly however due to insurance issues, she has been off MTX for approximately four months. Her last SLE flare was in October 2019 where she had increased joint pains, fatigue, and mental fogginess. PCP gave her prednisone 40mg x4-5 days and felt improved. Currently she had joint pains in her hands with 1hr AM stiffness but able to make a fist. Also has pain in her knees worse after walking and with standing, but denies erythema or tenderness. Has occasional oral ulcers, feels this has been more frequent after stopping MTX but currently does not have any. Currently on 2L supplemental O2. ROS (positive in bold): General fevers, chills, night sweats, weight loss/gain HEENT oral ulcers, dry eyes, dry mouth, red/itchy eyes Card chest pain, palpitations Pulm SOB, cough, FATIMA GI abd pain, nausea, vomiting, diarrhea, constipation, dysphagia, reflux dysuria, hematuria, changes to color of urine MS: arthritis, arthralgia, muscle aches Neuro weakness, numbness, tingling, CHARLES Skin Raynaud's, rash, hair loss, photosensitivity, hair changes Psych depression, anxiety, difficulty sleeping PMHx: Past Medical History: Diagnosis Date ??? Antiphospholipid antibody syndrome ??? Anxiety ??? Cerebrovascular accident ??? Chest pain 04/01/2012 ??? CHF (congestive heart failure) ??? Depression ??? FATIMA (dyspnea on exertion) 04/01/2012 ??? H/O total knee replacement 04/01/2012 ??? Hypertension ??? Migraine ??? JAN (obstructive sleep apnea) ??? Osteoporosis 04/01/2012 ??? Osteoporosis ??? SLE (systemic lupus erythematosus) SurgHx: Past Surgical History: Procedure Laterality Date ??? DILATION AND CURETTAGE OF UTERUS ??? JOINT REPLACEMENT ??? LEEP ??? MOUTH SURGERY ??? PRO REPLACE AORT VALV, PROSTH VALV N/A 05/25/2017 @REPLACE AORTIC VALVE, OPEN, W\CPB, W\PROSTHETIC VALVE (WRVU 41.32) performed by Kuldeep Conner MD at [facility] MAIN OR ??? TUBAL LIGATION ??? TUBAL LIGATION FamHx: M:migraines, depression ra F:mi siblings: (-)scleroderma, (-)sjogren's, (-)gout ?? Paternal GF mom had ? Lupus Mother has RA SocHx: Tob: None EtOH: None Illicits: None Pertinent Inpatient Med List: ??? flu vacc (6 mos-64 yrs)(PF) (Flulaval Quad) vaccine syringe 0.5 mL ??? aspirin chewable tablet 81 mg ??? warfarin (COUMADIN) daily order reminder AND Consult to Pharmacy ??? sodium chloride 0.9 % (flush) flush 5 mL ??? sodium chloride 0.9 % (flush) flush 5-20 mL ??? lidocaine (XYLOCAINE) 10 mg/mL (1 %) injection 3 mg ??? hydrOXYchloroQUINE (Plaquenil) tablet 200 mg ??? levothyroxine (Synthroid) tablet 25 mcg ??? multivitamin with minerals (THERA-M) tablet 1 tablet ??? pantoprazole EC (Protonix) tablet 40 mg ??? FLUoxetine (PROzac) capsule 40 mg ??? lidocaine (LIDODERM) 5 % patch 1 patch AND lidocaine (LIDODERM) 5 %(700 mg/patch) Patch Removal ??? acetaminophen (Tylenol) tablet 650 mg ??? metoprolol tartrate (Lopressor) tablet 12.5 mg ??? polyethylene glycoL (Miralax) packet 17 g ??? senna-docusate (Pericolace) 8.6-50 mg per tablet 2 tablet ??? melatonin tablet 3 mg Vitals: Last value 24hr range T 36.7 ??C (98.1 ??F) Temp: [36.7 ??C (98.1 ??F)-37 ??C (98.6 ??F)] HR 56 Heart Rate: [56-70] BP 124/55 BP: (115-142)/(55-72) RR 18 Resp: [16-18] SpO2 99 % SpO2: [98 %-99 %] Physical Exam: General: Well appearing, NAD HEENT: Mucous membranes are moist, no oral mucosal ulcerations, EOMI, NCAT Neck: Supple, no lymphadenopathy, full range of motion Cardiovascular: RRR, no m/r/g, aortic click heard Lungs: CTA b/l no w/r/r Abdomen: Soft, nontender, nondistended Back: Nontender over the spine Neuro: Alert and oriented x3. Cranial nerves II through XII grossly intact. Strength 5/5 throughout, Sensation to light touch is grossly normal throughout. Skin: no rashes or lesions noted Nails: no nail pitting Extremities: Shoulders: FROM, non-tender to palpation Elbows:FROM Wrists: FROM, no swelling, non-tender Hands: No synovitis, left 3rd MCP tenderness, full fist, incomplete claw Hips: FROM, no tenderness Knees: FROM, small effusions b/l without increased warmth, no tenderness Ankles: FROM, non-tender, no effusion Feet: +MTP compression tenderness b/l, no swelling in MTP/DIP/PIPs Labs: Last 3 Lytes Recent Labs 03/19/20 0323 03/18/20 2137 NA 141 142 K 3.8 4.1 CL 105 107 CO2 27 26 BUN 19* 19* CREATININE 0.74 0.88 Last 3 LFTs No results for input(s): AST, ALT, ALKPHOS, BILITOT, BILIDIR in the last 7068 hours. Last CRP, SEDRATE Recent Labs 03/19/20 1148 CRP 1.0 SEDRATE 14 Last CBC Lab Results Component Value Date WBC 6.5 03/19/2020 RBC 4.28 03/19/2020 HGB 13.6 03/19/2020 HCT 40.1 03/19/2020 MCV 93.7 03/19/2020 MCH 31.8 03/19/2020 MCHC 33.9 03/19/2020 PLATELET 235 03/19/2020 RDWCV 12.6 03/19/2020 TSH 4.33 Negative troponin UA 100 protein, no blood. Moderate leukocytes and WBCs. Protein:Cr 0.5 INR 2.5 Pending: C3 C4 DsDNA WADE Studies: Reviewed Assessment: Noah Dumont is a 50 y.o. 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, [facility] - 05/2017), resolved cardiomyopathy w/ pleuropericarditis (EF 59% with nor mal coronaries in 2018 on cath), h/o??alveolar hemorrhage??(while on lovenox??2016), migraines, JAN, HTN, HLD admitted on 01/17 for atypical chest pain 2/2 pulmonary embolism who we are seeing today at the request of Hunter Navarro MD for evaluation of SLE flare. She was admitted with pulmonary embolism despite being on coumadin with therapeutic INR. Her history of SLE dates back to when she was 21 years ago and had been doing well on HCQ 200mg BID and MTX 15mg weekly SQ until the latter was no longer covered by her insurance approximately 4 months ago. Prior to that, she had a questonable flare in which she was given steroids by her PCP. She has not beenseen in our clinic since October 2018 but reports she was doing well in the interim. Because she has PE in the midst of therapeutic anti-coagulation, it is possible that it formed in the setting of ongoing inflammation after being off her MTX. Her labs for SLE flare are currently still pending, however she has normal inflammatory markers. Last markers checked in 10/2018 were also normal however she was stable. No WBC abnormalities or thrombocytosis to suggest ongoing inflammation.UA shows some protein which is new but no blood. We will await further lab results but will consider restarting MTX. Would hold on steroids given her PE. Lastly, we will recheck antiphospholipid antibodies for sake of information. Recommendations: - Await labs: C3, C4, dsDNA, WADE - Recommend repeating antiphospholipid antibody labs: lupus anticoagulant, beta- 2 glycoprotein, anti-cardiolipin antibody - Continue HCQ 200mg BID for now - Will follow up as an outpatient in rheumatology clinic closely Patient was seen and discussed with Dr. Jesus Perry DO Rheumatology Fellow Pager: [phone] Associated attestation - Kalli Lee DO - 03/19/2020 8:24 PM EST ATTENDING ADDENDUM The patient's history was reviewed, and I interviewed and examined the patient with Dr. Perry. I agree with her summary, findings, and plan. Noah Dumont is a 50 y.o. female with a history of SLE and APLAS presenting with PE on warfarin and plaquenil. She was historically on methotrexate which she discontinued tue to cost, she reports she recently had a dose change in her coumadin but does not recall the timing, and doesn't believe she misses doses, also denies missing doses of hcq. She received corticosteroids over the summer to treat a flare of her joints. On exam she has no active sle, labs pending at this time. The risk of clot on therapeutic anticoagulation with aplas is 3-10% over 3 years, and can be stratified to some extent by antibody profile (triple positive being higher risk). -recommend checking B2 glycoprotein and repeat acl as we know Marshall s pos and ACL was low titer pos) -consider increasing INR goal to 3-4 (Eular 2019 recommendations for management of APS) or switching to LMWH -check TPMT (may consider aza on fu) -will consider mtx, aza at fu visit -consider starting statin therapy * Initial Assessments - Yusra Rose MSW - 03/19/2020 11:04 AM EST Office of Care Management Initial Assessment ADRIANA Arnett reviewed record and discussed patient with Care Team. Source of Information: Patient and medical review. Introduced self/reviewed role; services accepted. Reason for Hospitalization: Reason for Admission as Stated by Patient: [facility] sent because of CP and SOB for 3 weeks Noah Dumont is a 50 yo F with PMHx of SLE diagnosed at age 21 (on plaquenil and MTx), APS (c/b TIA, distant CVA, miscarriages and thrombocytopenia), on lifelong AC with coumadin, AI s/p mAVR ([facility], [facility] - 05/2017), resolved cardiomyopathy w/ pleuropericarditis (EF 59% with normal coronaries in 2018 on cath), h/o alveolar hemorrhage (while on lovenox 2015), initially presented to [facility] with atypical chest pain and found to have L subsegmental PE despite therapeutic INR. ??by on 03/19/2020. Last COVID test date and time: 03/19/2020 03:10 Not detected. Past Medical History: Diagnosis Date ??? Antiphospholipid antibody syndrome ??? Anxiety ??? Cerebrovascular accident ??? Chest pain 04/01/2012 ??? CHF (congestive heart failure) ??? Depression ??? FATIMA (dyspnea on exertion) 04/01/2012 ??? H/O total knee replacement 04/01/2012 ??? Hypertension ??? Migraine ??? JAN (obstructive sleep apnea) ??? Osteoporosis 04/01/2012 ??? Osteoporosis ??? SLE (systemic lupus erythematosus) Hospitalizations Within the Past 30 Days: No Anticipated Length Of Stay (If known): Expected Length of Hospitalization: 03/21bsegmental PE despite therapeutic INR. ?? Current Decision-Making Capacity: Patient will make all medical decisions. Advance Care Planning: No AD on file. Current Coping/Education/Information Needs: Patient is coping ok but would like to know what is wrong with her.She reports her is very nervous since he can not come in to see her. Current Functional Ability: lying in bed awaiting results of her scan Functional Status Prior to Admission: No problems with ADLS. Home Environment: Patient lives in an apartment with her in [facility].The apartment is located on the 3rd floor and there quite a few stairs with no elevator to get to her apartment.The apartment is not handicap and there is a shower/tub combination.Patient is on disability and her works 6 days per week for [employer]. Social & Family Supports/Community Resources: Supportive,,children,sister,brother and mother Behavioral Health History: Patient reports she suffers from Anxiety and Depression and is currentlytaking prozac.She has been seeing a counselor at her PCP office but they recently left and she has not hooked up with the new counselor yet.She is thinking about doing this when she gets out. 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 DAST 10 In the past year have you used an illegal drug or used a prescription medication for non-medical reaons?: No In the past year have you used opioids (oxycodone, Vicodin, heroin, fentanyl, buprenorphine, methadone, etc.) for non-medical reasons?: No AUDIT In the past year have you had 4 or more drinks a day containing alcohol?: No Other Pertinent/Service Specific Information: No Health/Prescription Coverage: Primary Insurance: MEDICARE Secondary Insurance: N/A Prescription Coverage: yes/[employer] Preferred Pharmacy: Mail Order/[employer] Other: Patient reports she has a payment plan set up with [employer] so she can continue taking her medication.She was declined medicare coverage because her household made too much money. Primary Care Provider: Mckenna Genao, [employer] [phone] Patient/Caregiver Goals of Treatment: To find out what is wrong with me. Potential Needs for Transition of Care: Rehab/SNF: no Home Health: Patient reported she used a VNA service out of [facility] after she had openheart surgery and she does not want them in her home again.She reported they were rude and judgmental. DME: some times she uses a cane Dialysis: no Community Resources: no Transportation: with Other: no Anticipated Barriers to Discharge/Special Considerations: None Assessment: Patient was sitting in bed waiting to speak to her Doctor.Patient was pleasant and cooperative.She did admit she was a little scared because they have not figured out what was wrong with her except her PE. Plan: Will continue to monitor and support patient and family as needed. A member of the Care Management team will continue to monitor progress, follow for continuity of care and assist with transition of care planning. ADRIANA Arnett Pager: [phone] * Consult Note - Ramón Tripathi - 03/19/2020 8:14 AM EST Rheumatology Inpatient Consult Note ?? Reason for Consult: Noah Dumont is a 50 y.o. female with PMHx of SLE diagnosed at age 21 (on plaquenil and MTx, but d/c MTx 3+ mos ago), APS (c/b TIA, distant CVA, miscarriages and thrombocytopenia), on lifelong AC with coumadin, AI s/p mAVR ([facility], [facility] - 05/2017), resolved cardiomyopathy w/pleuropericarditis (EF 59% with normal coronaries in 2018 on cath), h/o alveolar hemorrhage (while on lovenox 2015), initially presented to [facility] with atypical chest pain and found to have L subsegmental PE despite therapeutic INR. We are seeing today at the request of Cardiology for evaluation of her SLE. HPI: Re: this admission, pt says she was doing cardiac rehab after open heart surgery in 2018, and doing well, and then her got a raise at his job she lost her insurance through the state. She stopped her methotrexate because couldn't afford it out of pocket. At that time she had been walking 3x/day 3-5 miles, and she noticed she was getting winded on her walks, which she stopped in January due to the dyspnea. Eventually even folding towels caused her to experience SOB. She says she stopped her methotrexate prior to January but was uncertain of exactly when. Also stopped the levothyroxine but has continued taking warfarin, plaquenil, and aspirin. She developed left sided chest pain, radiating to shoulder, jaw, and down for last few weeks and presented to [facility]. In addition to the chest pain and dyspnea on exertion, pt describes the following recent changes from baseline: -Headache x1 month. States that this is a pain all over her head, very intense, with photophobia, nausea, and vomiting. Says she has experienced episodes like this a couple of times before, and that she was previously given shots in the back of her neck to treat her headache. -Low quality sleep x2-3 months. States that she has sleep apnea but adds that her sleep is a jokeand she wakes up feeling fatigued. Says her Fitbit tells her she has only slept for 3 hours despitebeing in bed for 6. --Fatigue, depression x1 month. Characterizes her fatigue as having no patience, being overwhelmed, going to do something and giving up. Says that her PCP put her on prozac because she was feeling worsening depression which included frequent episodes of crying. States that the depression has improved since starting the prozac. Describes current mood as worried and endorses anxiety, which she says is horrible. She says: I'm a Zehra so I am always wanting to please everyone.' Has found herself the last three months staying more to herself, saying I don't want to put my situation onto someone else. Says anxiety is interfering with her life a little bit now. Had previously seen a counselor at doctor's office, and probably would be open to doing it again. -GI changes, x3-6mo. Stomach aches last 5 or 6 months, worse after eating. Epigastric. Crampy, uncomfortable. 7-8 in intensity. Last a couple of hours. Worsening difficulty swallowing x3 months that is happening more now with drinks, which it did not used to. Regarding her SLE Hx: Pt states that when she first found out she had lupus as a teenager she couldn't bend her fingers, could hardly walk, and daily life was a struggle. She was put on prednisone and rituxan to good effect., She states she had both her knees replaced in 2004 or so, and also describes an episode when she went to [place] to see her sister, went into congestive heart failure but didn't know, woke up in middle of night and felt she was dying, in 2014. -Endorses history of alopecia, malar rash/ photosensitivity, Raynaud's phenomenon. -Endorses chronic constipation and nausea. Endorses heart burn, but says Protonix controls it well. -Endorses difficulty swallowing -No history of skin thickening. -Endorses dry eyes/mouth, dental caries. Denies corneal abrasions. -Endorses weakness in left arm following her stroke. Also notes weakness in left leg, especially when it gets cold. She does not consider these changes from baseline. -Endorses blood in urine, possibly a couple of times, happens every so often. Unable to recall a recent instance. No hemoptysis, blood in stool, or hematemesis -No fevers, chills, rigors, night sweats. Says she gets hot flashes after activity in which she sweats -Endorses weight change: states her weight was 154 in January around the time she had to stop walking. Weight is 79.9kg or 175.8 lbs as of 03/19. ROS (positive in bold): General fevers, chills, night sweats, weight gain HEENT oral ulcers, dry eyes, dry mouth, red/itchy eyes Card chest pain, palpitations Pulm SOB, cough, FATIMA GI abd pain, nausea, vomiting, diarrhea, constipation, dysphagia, reflux. dysuria, hematuria MS: arthritis, arthralgia, muscle aches. Endorses pain in hands and feet first thing in the morning, lasts a couple hours, in her hands and feet. Neuro weakness, numbness, tingling, CHARLES. Fingers tingle at times. Skin Raynaud's, rash, hair loss, photosensitivity, hair changes Psych depression, anxiety, difficulty sleeping Family History -Hx heart disease grandfather and biological father, says he had heart attack, but unsure when--shedoesn't have close relationship with biological father, says she has stepdad. -Mom and sister have RA. No lupus, scleroderma, or other rheumatologic diseases that she knows of in other family members. Medications: Scheduled Meds: ??? aspirin 81 mg Oral Daily ??? warfarin (COUMADIN) daily order reminder Oral Q24H ??? sodium chloride 0.9 % (flush) 5 mL Intravenous BID ??? hydrOXYchloroQUINE 200 mg Oral BID ??? levothyroxine 25 mcg Oral Daily ??? multivitamin with minerals 1 tablet Oral Daily ??? pantoprazole EC 40 mg Oral BID ??? FLUoxetine 40 mg Oral Daily ??? lidocaine 1 patch Transdermal Q24H And ??? lidocaine 1 patch Transdermal Q24H ??? metoprolol tartrate 12.5 mg Oral Q12H [place] Continuous Infusions: PRN Meds:.flu vacc (6 mos-64 yrs)(PF), sodium chloride 0.9 % (flush), lidocaine, acetaminophen, polyethylene glycoL (MIRALAX) oral powder, senna-docusate, melatonin Vitals Patient Vitals for the past 24 hrs: Temp Pulse Resp BP SpO2 O2 Flow Rate (L/min) O2 Device 03/18/20 2113 37 ??C (98.6 ??F) 70 18 142/69 98 % 2 L/min NC 03/18/20 2333 36.9 ??C (98.4 ??F) 63 18 123/62 98 % 2 L/min NC 03/19/20 0428 36.7 ??C (98.1 ??F) 63 18 115/72 99 % 2 L/min NC 03/19/20 0722 36.7 ??C (98.1 ??F) 62 16 124/67 99 % 2 L/min NC Physical Exam: General: Well appearing woman in NAD HEENT: EOMs intact Neck: full range of motion Cardiovascular: RRR, no m/r/g, loud S2 Lungs: CTA b/l no w/r/r Abdomen: Soft, nondistended, normal active bowel sounds. RLQ and LUQ pain on gentle palpation. Back: Tenderness on palpation of right low back, paraspinal area. Neuro: Alert and oriented x3. Strength 5/5 throughout, Skin: no rashes or lesions noted ?? Last wbc, hgb, hct plt Recent Labs 03/19/20 0323 WBC 6.5 HGB 13.6 HCT 40.1 Last 3 Lytes Recent Labs 03/19/20 0323 03/18/20 2137 NA 141 142 K 3.8 4.1 CL 105 107 CO2 27 26 BUN 19* 19* CREATININE 0.74 0.88 Last 3 LFTs No results for input(s): AST, ALT, ALKPHOS, BILITOT, BILIDIR in the last 7068 hours. Last Ca, Mg, Phos Recent Labs 03/19/20 032 CALCIUM 8.6 MAGNESIUM 0.80 Last 3 Coags Recent Labs 03/19/20 0323 03/18/20 2137 PT 28.5* 30.5* INR 2.5 2.7 PTT 44* 44* Last 3 HgbA1C No results for input(s): HA1C in the last 7068 hours. Last 3 CBC Recent Labs 03/19/203 03/18/207 WBC 6.5 6.0 Component Value Date/Time SPGRAVITYUA 1.024 03/19/2020 0926 PHUADIP 6.0 03/19/2020 0926 PROTEINUADIP 100 (A) 03/19/2020 0926 GLUCOSEU Negative 03/19/2020 0926 KETONESUA Negative 03/19/2020 0926 UROBILIUADIP Normal 03/19/2020 0926 BLOODUADIP Negative 03/19/2020 0926 NITRATEUA Negative 03/19/2020 0926 LEUKOESTERUA Moderate (A) 03/19/2020 0926 WBCUA 39 (H) 03/19/2020 0926 BILIRUBINUA Negative 03/19/2020 0926 Assessment: Noah Dumont is a 50 y.o. 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 Noah's SLE and APS with prior thrombotic events put her at high risk for recurrent thrombosis, possibly increased by her recent discontinuation of methotrexate and levothyroxine. She is currently deanna therapeutic INR is 2.5 as of 03/19 and her most recent TSH was mildly elevated at 4.33 on 03/18. Recommendations: - Recommend antiphospholipid antibody labs and follow up with rheumatology outpatient - Consider adding statin outpatient given recurrent thrombosis and history of HLD - Continue HCQ 200mg BID Associated attestation - Kalli Lee DO - 03/20/2020 8:52 PM EST ATTENDING ADDENDUM The patient's history was reviewed, and I interviewed and examined the patient with Ramón. I agree with his summary, findings, and plan. documented in this encounter Plan of Treatment Upcoming Encounters Date Type Department Care Team (Late st Contact Info) Description 11/11/2023 3:00 AM EDT Anti-Coag Telephone Visit [facility] [place] [address] Scheduled Orders Name Type Priority Associated Diagnoses Orde r Schedule EKG 12 Lead ECG Routine Other chest pain One Time for 1 Occurrences starting 03/18/2020 until 03/18/2020 Scheduled Referrals Name Type Priority Associated Diagnoses Orde r Schedule Referral to Rheumatology Outpatient Referral Routine Single subsegmental pulmonary embolism without acute cor pulmonale Systemic lupus erythematosus, unspecified SLE type, unspecified organ involvement status Antiphospholipid antibody----- use antiXa level to dose heparin. Ordered: 03/20/2020 Referral to Cardiology Outpatient Referral Routine Single subsegmental pulmonary embolism without acute cor pulmonale Antiphospholipid antibody----- use antiXa level to dose heparin. Ordered: 03/20/2020 documented as of this encounter Procedures Procedure Name Priority Date/Time Associated Diagnosis Comments REQUEST FOR 2ND READ CT CHEST Routine 03/21/2020 3:58 PM EST STRESS ECHO W CONTRAST W LMTD SPEC DOPP Routine 03/21/2020 10:26 AM EST Other chest pain HEMOGRAM Routine 03/21/2020 3:43 AM EST DIFFERENTIAL, AUTOMATED Routine 03/21/2020 3:43 AM EST HC PARTIAL THROMBOPLASTIN TIME Routine 03/21/2020 3:43 AM EST HC VENIPUNCTURE Routine 03/21/2020 3:43 AM EST HC CBC,PLT & AUTO DIFF Routine 0 3:43 AM EST HC MAGNESIUM, SERUM Routine 03/21/2020 3 :43 AM EST LIPID PANEL (REFLEX DIRECT LDL) Routine 03/21/2020 3:43 AM EST BASIC METABOLIC PANEL (NON-FASTING) Routine 03/21/2020 3:43 AM EST HC DRVVT RATIO Routine 03/20/2020 4:31 AM EST SILICA CLOTTING TIME Routine 03/20/2020 4:31 AM EST DRVVT Routine 03/20/2020 4:31 AM EST HEMOGRAM Routine 03/20/2020 4:31 AM EST DIFFERENTIAL, AUTOMATED Routine 03/20/2020 4:31 AM EST HC BETA 2-GLYCOPROTEIN I Routine 03/20/2020 4:31 AM EST HC CARDIOLIPIN ANTIBODIES Routine 03/20/2020 4:31 AM EST HC PARTIAL THROMBOPLASTIN TIME Routine 03/20/2020 4:31 AM EST HC PROTHROMBIN TIME Routine 03/20/2020 4 :31 AM EST HC CBC,PLT & AUTO DIFF Routine 0 4:31 AM EST HC MAGNESIUM, SERUM Routine 03/20/2020 4 :31 AM EST BASIC METABOLIC PANEL (NON-FASTING) Routine 03/20/2020 4:31 AM EST DUPLEX FOR DVT BILAT LEGS Routine 03/19/2020 11:44 PM EST Single subsegmental pulmonary embolism without acute cor pulmonale HC C-REACTIVE PROTEIN Routine 03/19/2020 11:48 AM EST HC DNA AB DS (HO-CHUNK) Routine 03/19/2020 11:48 AM EST HC FACTOR X ASSAY Routine 03/19/2020 11: 48 AM EST HC VENIPUNCTURE Routine 03/19/2020 11:48 AM EST HC COMPLEMENT,C3 SERUM Routine 0 11:48 AM EST HC COMPLEMENT C4, PLASMA Routine 03/19/2020 11:48 AM EST HC ANTINUCLEAR ANTIBODY,SERUM Routine 03/19/2020 11:48 AM EST ECHO COMPLETE Routine 03/19/2020 11:01 AM EST Acute septic pulmonary embolism, unspecified whether acute cor pulmonale present HC URINALYSIS ROUTINE Routine 03/19/2020 9:26 AM EST URINE HOLD Routine 03/19/2020 9:26 AM EST HC CREATININE - NON BLOOD Routine 03/19/2020 9:26 AM EST HEMOGRAM Routine 03/19/2020 3:23 AM EST DIFFERENTIAL, AUTOMATED Routine 03/19/2020 3:23 AM EST HC PARTIAL THROMBOPLASTIN TIME Routine 03/19/2020 3:23 AM EST HC PROTHROMBIN TIME Routine 03/19/2020 3 :23 AM EST HC CBC,PLT & AUTO DIFF Routine 0 3:23 AM EST HC TROPONIN T STAT 03/19/2020 3:23 AM EST HC MAGNESIUM, SERUM Routine 03/19/2020 3 :23 AM EST BASIC METABOLIC PANEL (NON-FASTING) Routine 03/19/2020 3:23 AM EST RAPID COVID-19 PCR ([facility]) Routine 03/19/2020 12:45 AM EST HEMOGRAM Routine 03/18/2020 9:37 PM EST DIFFERENTIAL, AUTOMATED Routine 03/18/2020 9:37 PM EST HC PARTIAL THROMBOPLASTIN TIME Routine 03/18/2020 9:37 PM EST HC PROTHROMBIN TIME Routine 03/18/2020 9 :37 PM EST HC CBC,PLT & AUTO DIFF Routine 0 9:37 PM EST HC VENIPUNCTURE STAT 03/18/2020 9:37 PM EST HC THYROID STIMULATING HORMONE, SERUM Routine 03/18/2020 9:37 PM EST HC PROBNP Routine 03/18/2020 9:37 PM EST HC MAGNESIUM, SERUM Routine 03/18/2020 9 :37 PM EST BASIC METABOLIC PANEL (NON-FASTING) Routine 03/18/2020 9:37 PM EST FILM LIBRARY STORAGE ONLY CT CHEST Routine 03/18/2020 12:00 AM EST documented in this encounter Results [...] add comments as necessary): Chest; Sending Institution [facility]; Date of exam 20200318; I believe a reinterpretation of this exam may alter care of Patient. Yes TECHNIQUE: Axial contiguous sections obtained to the chest via helical acquisition after intravenous administration of Omnipaque 350 at [facility] on 03/18/2020. COMPARISON: No prior [...] (please add comments as necessary): [facility] Date of exam 20[facility]18; I believe a reinterpretation of this exam may altercare of Patient. Yes TECHNIQUE: Axial contiguous sections obtained to the chest via helical acquisition after intravenous administration of Omnipaque 350 [facility] on 03/18/2020. COMPARISON: No prior chest [...] Navarro MD IMG OUTSIDE INT ERPRETATION ORDERABLES * STRESS ECHO W CONTRAST W LMTD SPEC DOPP (03/21/2020 10:26 AM EST) EF 60 HEARTLAB SYSTEM Anatomical Region Laterality Modality Other 03/21/2020 Narrative 03/21/2020 11:00 AM EST Procedure: ?Stress Echocardiogram Patient: ?SEBASTIÁN Montiel ? (Age): 1970(50y) Med Rec#: ? [id number] ?Sex: ?F ? Site Loc: ? [facility] ?Ht / Wt: ??160(cm)/80(kg) Pt. Loc: ?Echo Lab ?BSA: ?1.83 Study Date: ?? 03/21/2020 ?Pt. Type: Tape: ? Referring: Hunter Navarro ([id number]) Reading: Bienvenido Wong ([id number]) Tobacco Packer: Elizabeth Sarmiento Manager Aviation: Afsaneh Santos Diagnosis: *Chest pain, unspecified (R07.9) Stage ? BP ?HR ? Rest ?124/84 ?80 ? Peak ?122/80 ?113 ? Recovery ?114/80 ?67 ? SUMMARY: 1. REST: The ECG shows sinus rhythm [...] an apical WMA and probable inferior ischemia. Findings Rest: Study Quality: ? Technically limited Left Ventricle: ? The ??apical inferior wall segment is dyskinetic (score 4). ?Overall wallmotion score index is ??1.19 Stress: ? EKG: normal sinus rhythm. ?EKG: inferolateral T wave inversion. ?The patient's oxygen saturation was 97%. ?The patient is taking a beta montse. ?The patient is taking aspirin. ?The patient is taking an anti-platelet medication. Findings Peak: Predicted Values:The patient achieved a maximum heart rate of 113 which is 66% of the maximum predicted heart rate (172 beats/min). ??The target heart rate was not achieved. Left Ventricle: ? The basal inferior, and ??mid inferior wall segments deteriorated. ?The apical inferior wall segment is unchanged. ?Overall wallmotion score index is ??1.31 Stress: ? Patient followed a Bienvenido protocol. ?The patient exercised into stage 2. ?The total exercise duration was:4:00 min. ?The study was terminated because of dyspnea. ?The study was terminated because of ??severe lightheadedness. ?The patient did not express feelings of chest discomfort. ?The patient experienced shortness of breath. Patient reported 10/10 shortness of breath at peak exercise which resolved during recovery. ?The patient felt light-headed.Severe lightheadedness during peak exercise, which resolved during recovery. ?The patient experienced a headache during the test.Moderate headache and right neck pain during peak exercise, which resolved during recovery. ?The blood pressure response was blunted. ?Exercise capacity was average. ?The patient achieved a level of 7 METS. ?There were occasional atrial premature contractions. ?There were occasional ventricular premature contractions. ?There were no significant ST segment changes. ?The electrocardiographic response is indeterminate for ischemia: failed to achieve target heart rate. ?This was a positive echocardiographic stress test. ?EKG: Interventricular conduction delay. ?EKG: sinus tachycardia. ?The patient's oxygen saturation was 97%. Findings Recovery: Stress: ? EKG: normal sinus rhythm. Aortic Valve ?Value ?Units (Range) ? AV Vmax ? 1.39 ? m/sec ? AV VTI ?25.52 ?cm ? AV peak gradient ?7.72 ? mmHg ? AV mean gradient ?4.42 ? mmHg ? Wall Motion: Segment Name ?Rest ? Peak ? Base-Anteroseptal ?? Normal ? Normal ? Base-Anterior ? Normal ? Normal ? Base-Anterolateral ??Normal ? Normal ? Base-Posterolateral Normal ? Normal ? Base-Inferior ? Normal ? Hypokinetic ? Base-Inferoseptal ?? Normal ? Normal ? Mid-Anteroseptal ?Normal ? Normal ? Mid-Anterior ?Normal ? Normal ? Mid-Anterolateral ?? Normal ? Normal ? Mid-Posterolateral ??Normal ? Normal ? Mid-Inferior ?Normal ? Hypokinetic ? Mid-Inferoseptal ?Normal ? Normal ? [place]-Septal ? Normal ? Normal ? [place]-Anterior ? Normal ? Normal ? [place]-Lateral ?Normal ? Normal ? [place]-Inferior ? Dyskinetic ? Dyskinetic ? [place]-Tip ?Dyskinetic ? Dyskinetic ? This report has been electronically signed by: Bienvenido Wong M.D. ? 03/21/2020 10:59:27 Images reviewed and interpretation verified [facility] Cardiac Ultrasound Laboratory Procedure Note Bienvenido Wong MD - 03/21/2020 Procedure: Stress Echocardiogram Patient: SEBASTIÁN Montiel (Age): 1970(50y) Med Rec#: [id number] Sex: F Site Loc: [facility] Ht / Wt: 160(cm)/80(kg) Pt. Loc: Echo Lab BSA: 1.83 Study Date: 03/21/2020 Pt. Type: Tape: Referring: Hunter Navarro ([id number]) Reading: Bienvenido Wong ([id number]) Tobacco Packer: Elizabeth Sarmiento Manager Aviation: Afsaneh Santos Diagnosis: *Chest pain, unspecified (R07.9) Stage BP HR Rest 124/84 80 Peak 122/80 113 Recovery 114/80 67 SUMMARY: 1. REST: The ECG shows sinus rhythm [...] an apical WMA and probable inferior ischemia. Findings Rest: Study Quality: Technically limited Left Ventricle: The apical inferior wall segment is dyskinetic (score 4). Overall wallmotion score index is 1.19 Stress: EKG: normal sinus rhythm. EKG: inferolateral T wave inversion. The patient's oxygen saturation was 97%. The patient is taking a beta montse. The patient is taking aspirin. The patient is taking an anti-platelet medication. Findings Peak: Predicted Values:The patient achieved a maximum heart rate of 113 which is 66% of the maximum predicted heart rate (172 beats/min). The target heart rate was not achieved. Left Ventricle: The basal inferior, and mid inferior wall segments deteriorated. The apical inferior wall segment is unchanged. Overall wallmotion score index is 1.31 Stress: Patient followed a Bienvenido protocol. The patient exercised into stage 2. The total exercise duration was:4:00 min. The study was terminated because of dyspnea. The study was terminated because of severe lightheadedness. The patient did not express feelings of chest discomfort. The patient experienced shortness of breath. Patient reported 10/10 shortness of breath at peak exercise which resolved during recovery. The patient felt light-headed.Severe lightheadedness during peak exercise, which resolved during recovery. The patient experienced a headache during the test.Moderate headache and right neck pain during peak exercise, which resolved during recovery. The blood pressure response was blunted. Exercise capacity was average. The patient achieved a level of 7 METS. There were occasional atrial premature contractions. There were occasional ventricular premature contractions. There were no significant ST segment changes. The electrocardiographic response is indeterminate for ischemia: failed to achieve target heart rate. This was a positive echocardiographic stress test. EKG: Interventricular conduction delay. EKG: sinus tachycardia. The patient's oxygen saturation was 97%. Findings Recovery: Stress: EKG: normal sinus rhythm. Aortic Valve Value Units (Range) AV Vmax 1.39 m/sec AV VTI 25.52 cm AV peak gradient 7.72 mmHg AV mean gradient 4.42 mmHg Wall Motion: Segment Name Rest Peak Base-Anteroseptal Normal Normal Base-Anterior Normal Normal Base-Anterolateral Normal Normal Base-Posterolateral Normal Normal Base-Inferior Normal Hypokinetic Base-Inferoseptal Normal Normal Mid-Anteroseptal Normal Normal Mid-Anterior Normal Normal Mid-Anterolateral Normal Normal Mid-Posterolateral Normal Normal Mid-Inferior Normal Hypokinetic Mid-Inferoseptal Normal Normal [place]-Septal Normal Normal [place]-Anterior Normal Normal [place]-Lateral Normal Normal [place]-Inferior Dyskinetic Dyskinetic [place]-Tip Dyskinetic Dyskinetic This report has been electronically signed by: Eduardo Wong M.D. 03/21/2020 10:59:27 Images reviewed and interpretation verified [facility] Cardiac Ultrasound Laboratory Hunter Navarro MD ECHO ORDERABLES * Lipid Panel (Reflex Direct LDL) (03/21/2020 3:43 AM EST) Chol, Total 236 mg/dL [facility] Comment: Lower Risk: <200 mg/dL Average Risk: 200-239 mg/dL Higher Risk: >aa=367 mg/dL Triglycerides 197 mg/dL [facility] Comment: Average Risk/Lower Risk: <150 mg/dL Borderline High Risk: 150-199 mg/dL High Risk: 200-499 mg/dL Very High Risk: >wv=792 mg/dL HDL 49 mg/dL [facility] Comment: Males: ?? Higher Risk: <40 mg/dL Females: ?? HIgher Risk: <50 mg/dL LDL Cholesterol 148 mg/dL [facility] Comment: Lowest Risk: <100 mg/dL Lower Risk: 100-129 mg/dL Borderline High Risk: 130-159 mg/dL High Risk: 160-189 mg/dL Very High Risk: >kt=121 mg/dL Chol/HDL Ratio 4.8 ratio [facility] Lipid Interpretation See Note [facility] Comment: Lipid management should be guided by a patient? s ASCVD risk, goals and preferences. ACC/AHA Guidelines recommend high intensity statin if clinical ASCVD or LDL greater than or equal to 190 mg/dL. http://Prestiamoci.com/MCF-NVZ-Eupfaetmt Adults aged 40-75 with LDL 70-189 mg/dL should have their 10 year ASCVD risk estimated with the ACC/AHA ASCVD risk estimator and drafter http://tools.acc.org/ZQVHT-Lfny-Kuelubcsg/ Statin should be discussed if risk greater [...] Deniz Root Jr., MD CHEMISTRY ORDER ADRIANA Performing Organization Address City/[facility]/ZIP Co de Phone Number [facility] [place] [address] * Differential, Automated (03/21/2020 3:43 AM EST) Neutrophils % 63.1 % [facility] Neutr Abs (ANC) 4.49 1.70 - 6.10 x10(3)/[facility] Lymphocytes % 21.6 % [facility] Lymphocytes Abs 1.5 0.9 - 3.2 x10(3)/[facility] Monocytes % 10.5 % [facility] Monocyte Abs 0.8 0.3 - 0.9 x10(3)/[facility] Eosinophils % 3.6 % [facility] Eosinophils Abs 0.3 0.0 - 0.4 x10(3)/[facility] Basophils % 0.8 % [facility] Basophils Abs 0.1 0.0 - 0.1 x10(3)/[facility] Immature Gran % 0.40 % [facility] Comment: Immature granulocytes(IG's)percentage and absolute count will include metamyelocytes, myelocytes, and promyelocytes. Blood smears from CBCs yielding IG's will be scanned manually for concordance. If this scan disagrees with the automated IG or if promyelocytes are noted, a manual differential will be performed. P[place]am Gran Abs 0.03 0.00 - 0.04 x10(3)/[facility] Blood specimen (specimen) 03/21/2020 3:43 AM EST 03/21/2020 3:53 AM EST Narrative Resulting Agency Comment Spec In Lab Becky Reynolds MD HEMATOLOGY ORDERABLE S Performing Organization Address City/[facility]/ZIP Co de Phone Number [facility] [place] [address] * Hemogram (03/21/2020 3:43 AM EST) WBC 7.1 4.0 - 9.5 x10(3)/[facility] RBC 4.39 4.00 - 5.21 x10(6)/[facility] Hemoglobin 14.0 11.7 - 15.5 gm/dL [facility] Hematocrit 41.2 35.7 - 45.8 % [facility] MCV 93.8 82.6 - 94.4 [facility] MCH 31.9 27.1 - 32.0 pg [facility] MCHC 34.0 31.7 - 35.0 gm/dL [facility] Platelets 223 145 - 357 x10(3)/[facility] RDWSD 43.5 37.0 - 46.0 [facility] RDWCV 12.6 11.5 - 14.1 % [facility] MPV 10.4 7.6 - 12.9 [facility] nRBC % Auto 0.0 % [facility] nRBC Abs Auto 0.000 0.000 - 0.000 x10(3)/[facility] LABORATORY Blood specimen (specimen) 03/21/2020 3:43 AM EST 03/21/2020 3:53 AM EST Narrative Resulting Agency Comment Spec In Lab Becky Reynolds MD HEMATOLOGY ORDERABLE S [facility] [place] [address] * Magnesium (03/21/2020 3:43 AM EST) Magnesium 0.86 0.69 - 1.07 mmol/L [facility] LABORATORY Blood specimen (specimen) 03/21/2020 3:43 AM EST 03/21/2020 3:53 AM EST Narrative Resulting Agency Comment Spec In Lab Hunter Navarro MD CHEMISTRY ORDER ADRIANA [facility] [place] [address] * Basic Metabolic Panel (non-fasting) (03/21/2020 3:43 AM EST) Glucose Lvl 101 65 - 199 mg/dL [facility] LABORATORY Comment:Diabetes: >=200 mg/d L plus symptoms BUN 18 8 - 18 mg/dL [facility]OR[facility]ORY Creatinine 0.73 0.70 - 1.20 mg/dL [facility] Sodium 139 135 - 145 mmol/L [facility] CO2 27 22 - 31 mmol/L [facility] Anion Gap 9 5 - 15 mmol/L [facility] Calcium 8.7 8.5 - 10.5 mg/dL [facility] LABOR[facility]ORY Estimated GFR 97 >=60 mL/min/1. 73 m?? [facility] LABORATORY Comment: This patient? s estimated glomerular filtration rate (eGFR) is between 97 mL/min/1.73 m2 (patients with less muscle mass) and 113 mL/min/1.73 m2 (patients with more muscle mass) [...] in addition to eGFR. Blood specimen (specimen) 03/21/2020 3:43 AM EST 03/21/2020 3:53 AM EST Narrative Resulting Agency Comment Spec In Lab Hunter Navarro MD CHEMISTRY ORDER ADRIANA Performing Organization Address [facility] de Phone Number [facility] [place] [address] * (ABNORMAL) APTT (03/21/2020 3:43 AM EST) PTT 43(H) 25 - 37 sec [facility] LABORATORY Comment: The PTT is NOT appropriate for heparin monitoring. Use the Anti-Xa level for heparin monitoring (HEP UFH) or LMWH monitoring (HEP LMW). A PTT less than 37 seconds generally indicates adequate hemostasis. Blood specimen (specimen) 03/21/2020 3:43 AM EST 03/21/2020 3:53 AM EST Narrative Resulting Agency Comment Spec In Lab Hunter Navarro MD HEMATOLOGY ORDE RABPAMELA Performing Organization Address [facility] de Phone Number [facility] [place] [address] * (ABNORMAL) Prothrombin Time (03/21/2020 3:43 AM EST) PT 32.8(H) 9.4 - 12.5 sec [facility] LABORATORY INR 2.9 [facility] LABORATORY Comment: An INR <2.0 indicates adequate [...] depending on clinical circumstances. Blood specimen (specimen) 03/21/2020 3:43 AM EST 03/21/2020 3:53 AM EST Narrative Resulting Agency Comment Spec In Lab Hunter Navarro MD HEMATOLOGY ORDE ZULEYMA Performing Organization Address [facility] Co de Phone Number [facility] [place] [address] * (ABNORMAL) Silica Clotting Time (03/20/2020 4:31 AM EST) Silica Clotting Time 1.18(H) <=1.16 ratio [facility] LABORATORY Comment: A result greater than 1.16 [...] anticoagulation may be appropriate. Blood specimen (specimen) 03/20/2020 4:31 AM EST 03/20/2020 5:00 AM EST Narrative Resulting Agency Comment Spec In Lab Jason Ac MD HEMATOLOGY ORDERABLE S Performing Organization Address [facility] de Phone Number [facility] [place] [address] * (ABNORMAL) dRVVT (03/20/2020 4:31 AM EST) dRVVT 1.65(H) <=1.20 IU/mL [facility] LABORATORY Comment: A result greater than 1.20 [...] anticoagulation may be appropriate. Blood specimen (specimen) 03/20/2020 4:31 AM EST 03/20/2020 5:00 AM EST Narrative Resulting Agency Comment Spec In Lab Jason Ac MD HEMATOLOGY ORDERABLE S Performing Organization Address [facility] Co de Phone Number [facility] [place] [address] * Differential, Automated (03/20/2020 4:31 AM EST) Neutrophils % 62.8 % [facility] LABORATORY Neutr Abs (ANC) 4.73 1.70 - 6.10 x10(3)/[facility] LABORATORY Lymphocytes % 22.3 % [facility]ORY Lymphocytes Abs 1.7 0.9 - 3.2 x10(3)/[facility] LABORATORY Monocytes % 10.3 % [facility] Monocyte Abs 0.8 0.3 - 0.9 x10(3)/[facility] LABORATORY Eosinophils % 3.3 % [facility] Eosinophils Abs 0.2 0.0 - 0.4 x10(3)/[facility] LABORATORY Basophils % 0.9 % [facility] Basophils Abs 0.1 0.0 - 0.1 x10(3)/[facility] LABORATORY Immature Gran % 0.40 % [facility] Comment: Immature granulocytes(IG's)percentage and absolute count will include metamyelocytes, myelocytes, and promyelocytes. Blood smears from CBCs yielding IG's will be scanned manually for concordance. If this scan disagrees with the automated IG or if promyelocytes are noted, a manual differential will be performed. [place] Gran Abs 0.03 0.00 - 0.04 x10(3)/[facility] LABORATORY Blood specimen (specimen) 03/20/2020 4:31 AM EST 03/20/2020 5:00 AM EST Narrative Resulting Agency Comment Spec In Lab Becky Reynolds MD HEMATOLOGY ORDERABLE S [facility] [place] [address] * Hemogram (03/20/2020 4:31 AM EST) WBC 7.5 4.0 - 9.5 x10(3)/[facility] LABORATORY RBC 4.53 4.00 - 5.21 x10(6)/[facility] LABORATORY Hemoglobin 14.5 11.7 - 15.5 gm/dL [facility] LABORATORY Hematocrit 42.4 35.7 - 45.8 % [facility] MCV 93.6 82.6 - 94.4 fL [facility] MCH 32.0 27.1 - 32.0 pg [facility] MCHC 34.2 31.7 - 35.0 gm/dL [facility] LABORATORY Platelets 241 145 - 357 x10(3)/[facility] LABORATORY RDWSD 43.5 37.0 - 46.0 fL [facility]OR[facility] RDWCV 12.7 11.5 - 14.1 % [facility] MPV 10.3 7.6 - 12.9 [facility] LABORATORY nRBC % Auto 0.0 % [facility] nRBC Abs Auto 0.000 0.000 - 0.000 x10(3)/[facility] LABORATORY Blood specimen (specimen) 03/20/2020 4:31 AM EST 03/20/2020 5:00 AM EST Narrative Resulting Agency Comment Spec In Lab Becky Reynolds MD HEMATOLOGY ORDERABLE S [facility] [place] [address] * (ABNORMAL) Beta-2 glycoprotein antibodies (03/20/2020 4:31 AM EST) B2GPI IgG 31.5(H) <=20.0 unit(s) [facility] B2GPI IgM <9.4 <=20.0 unit(s) [facility] B2GPI Interp No comment [facility] Blood specimen (specimen) 03/20/2020 4:31 AM EST 03/20/2020 7:23 AM EST Narrative Resulting Agency Comment Spec In Lab Hunter Navarro MD IMMUNOLOGY ORDEugene AMOR [facility] [place] [address] * Magnesium (03/20/2020 4:31 AM EST) Magnesium 0.85 0.69 - 1.07 mmol/L [facility] LABORATORY Blood specimen (specimen) 03/20/2020 4:31 AM EST 03/20/2020 5:00 AM EST Narrative Resulting Agency Comment Spec In Lab Hunter Navarro MD CHEMISTRY ORDER ADRIANA [facility] [place] [address] * (ABNORMAL) Basic Metabolic Panel (non-fasting) (03/20/2020 4:31 AM EST) Pathologist [facility] Glucose Lvl 93 65 - 199 mg/dL [facility] LABORATORY Comment:Diabetes: >=200 mg/d L plus symptoms BUN 18 8 - 18 mg/dL [facility] Creatinine 0.68(L) 0.70 - 1.20 mg/dL [facility] CO2 27 22 - 31 mmol/L [facility] Anion Gap 10 5 - 15 mmol/L [facility] Calcium 9.0 8.5 - 10.5 mg/dL [facility] Estimated GFR 103 >=60 mL/min/1. 73 m?? [facility] Comment: This patient? s estimated glomerular filtration rate (eGFR) is between 103 mL/min/1.73 m2 (patients with less muscle mass) and 120 mL/min/1.73 m2 (patients with more muscle mass) [...] in addition to eGFR. Blood specimen (specimen) 03/20/2020 4:31 AM EST 03/20/2020 5:00 AM EST Narrative Resulting Agency Comment Spec In Lab Hunter Navarro MD CHEMISTRY ORDER ADRIANA Performing Organization Address [facility] de Phone Number [facility] [place] [address] * (ABNORMAL) APTT (03/20/2020 4:31 AM EST) PTT 47(H) 25 - 37 sec [facility] Comment: The PTT is NOT appropriate for heparin monitoring. Use the Anti-Xa level for heparin monitoring (HEP UFH) or LMWH monitoring (HEP LMW). A PTT less than 37 seconds generally indicates adequate hemostasis. Blood specimen (specimen) 03/20/2020 4:31 AM EST 03/20/2020 5:00 AM EST Narrative Resulting Agency Comment Spec In Lab Hunter Navarro MD HEMATOLOGY ORDE RABLES Performing Organization Address [facility] Co de Phone Number [facility] [place] [address] * (ABNORMAL) Prothrombin Time (03/20/2020 4:31 AM EST) PT 28.8(H) 9.4 - 12.5 sec [facility] INR 2.5 [facility] Comment: An INR <2.0 indicates adequate [...] depending on clinical circumstances. Blood specimen (specimen) 03/20/2020 4:31 AM EST 03/20/2020 5:00 AM EST Narrative Resulting Agency Comment Spec In Lab Hunter Navarro MD HEMATOLOGY ROLAND AMOR Performing Organization Address [facility] Co de Phone Number [facility] [place] [address] * (ABNORMAL) Cardiolipin Antibody Screen (03/20/2020 4:31 AM EST) Cardiolipin IgG 28.8(H) <=14.9 GPL unit(s) [facility] Comment: Ranges ?? GPL ------ ?? --- Negative ?? <=14.9 Indeterminate ??15.0 - 20.0 Low/Medium Positive 20.1 - 80.0 High Positive ??>80.0 Cardiolipin IgM 9.9 <=12.5 MPL unit(s) [facility] Comment: Ranges ?? MPL ------ ?? --- Negative ?? <=12.5 Indeterminate ??12.6 - 20.0 Low/Medium Positive 20.1 - 80.0 High Positive ??>80.0 Blood specimen (specimen) 03/20/2020 4:31 AM EST 03/20/2020 7:23 AM EST Narrative Resulting Agency Comment Spec In Lab Hunter Navarro MD IMMUNOLOGY ROLAND AMOR Performing Organization Address [facility]/ZIP Co de Phone Number [facility] [place] [address] * Duplex Study for DVT, Bilat legs (03/19/2020 11:44 PM EST) VB Text Report Department: Vascular Surgery Lab Patient: [id number] (NOAH DUMONT) CPT: 59825 ICD10: I26.93 Referring Physician: KERRILYNN GIBSON ?? Phone: Indications: ??PE, ? DVT ICD10 Diagnosis Code: I26.93 Findings: RIGHT: Patent common femoral vein and popliteal vein with spontaneous, respirophasic Doppler waveforms that respond normally to augmentation maneuvers. The common femoral vein, saphenofemoral junction, femoral vein through the thigh and popliteal vein are fully compressible. Patent posterior tibial and peroneal veins with no evidence of thrombus. LEFT: Patent common femoral vein and popliteal vein with spontaneous, respirophasic Doppler waveforms that respond normally to augmentation maneuvers. The common femoral vein, saphenofemoral junction, femoral vein through the thigh and popliteal vein are fully compressible. Patent posterior tibial and peroneal veins with no evidence of thrombus. Interpretation: RIGHT: ??No evidence of lower extremity deep venous thrombosis. LEFT: ??No evidence of lower extremity deep venous thrombosis. Comparison: ?? No previous study in our vascular lab database for comparison. Electronically Signed by: HALINA MALDONADO on 2020-03-19 11:00:32 AM VASCUBASE VB Text Report End of Report VASCUBASE 03/19/2020 11:4 4 PM EST Hunter Navarro MD VASCULAR FADUMO BATES VAS[facility] * (ABNORMAL) Factor 10 assay (03/19/2020 11:48 AM EST) Factor 10 Assay 10(L) 77 - 131 % [facility] LABORATORY Blood specimen (specimen) 03/19/2020 11:48 AM EST 03/19/2020 12:19 PM EST Narrative Resulting Agency Comment Spec In Lab Hunter Navarro MD HEMATOLOGY ROLAND AMOR [facility] [place] [address] * C4 Complement (03/19/2020 11:48 AM EST) C4 Complement 20 10 - 40 mg/dL [facility] Blood specimen (specimen) 03/19/2020 11:48 AM EST 03/19/2020 12:19 PM EST Narrative Resulting Agency Comment Spec In Lab Hunter Navarro MD CHEMISTRY ORDER ADRIANA Performing Organization Address City/[facility]/ZIP Co de Phone Number [facility] [place] [address] * C3 Complement (03/19/2020 11:48 AM EST) C3 Complement 120 90 - 180 mg/dL [facility] Blood specimen (specimen) 03/19/2020 11:48 AM EST 03/19/2020 12:19 PM EST Narrative Resulting Agency Comment Spec In Lab Hunter Navarro MD CHEMISTRY ORDER ADRIANA Performing Organization Address City/[facility]/ZIP Co de Phone Number [facility] [place] [address] * DNA Antibody (Double-Stranded) (03/19/2020 11:48 AM EST) DNA Ab (DS) Neg Neg [facility] Blood specimen (specimen) 03/19/2020 11:48 AM EST 03/20/2020 7:29 AM EST Narrative Resulting Agency Comment Spec In Lab Hunter Navarro MD CHEMISTRY ORDER ADRIANA Performing Organization Address City/[facility]/ZIP Co de Phone Number [facility] [place] [address] * (ABNORMAL) WADE ([facility]/CGP/APD/NLH) (03/19/2020 11:48 AM EST) WADE Pos at 1:80(A) Neg [facility] Comment: 1:80 Titer seen with Speckled pattern. ??Is suggestive of autoantibodies to Sm, FIRE FIGHTERS DISPATCHER, SCL-70, or SS-B. Anti-nuclear antibodies were tested using an indirect immunofluorescent assay. Blood specimen (specimen) 03/19/2020 11:48 AM EST 03/20/2020 7:29 AM EST Narrative Resulting Agency Comment Spec In Lab Hunter Navarro MD IMMUNOLOGY ORDEugene AMOR Performing Organization Address [facility] de Phone Number [facility] [place] [address] * CRP, acute inflammation (03/19/2020 11:48 AM EST) CRP 1.0 <=4.9 mg/L [facility] Blood specimen (specimen) 03/19/2020 11:48 AM EST 03/19/2020 12:19 PM EST Narrative Resulting Agency Comment Spec In Lab Hunter Navarro MD CHEMISTRY ORDER ADRIANA Performing Organization Address [facility] de Phone Number [facility] [place] [address] * Sedimentation rate (03/19/2020 11:48 AM EST) Sed Rate 14 2 - 37 mm/hr [facility] Comment: Effective March 16, 2019 new capillary photometric technology has resulted in a change in reference ranges. It is recommended that each ESR result be reviewed with its own age appropriate reference range. Blood specimen (specimen) 03/19/2020 11:48 AM EST 03/19/2020 12:19 PM EST Narrative Resulting Agency Comment Spec In Lab Hunter Navarro MD HEMATOLOGY ORDEugene AMOR Performing Organization Address [facility] de Phone Number [facility] [place] [address] * ECHO COMPLETE (03/19/2020 11:01 AM EST) EF 63 HEARTLAB SYSTEM Anatomical Region Laterality Modality Other 03/19/2020 Narrative 03/19/2020 11:17 AM EST Procedure: ?Transthoracic Echocardiogram Patient: ?SEBASTIÁN ZAMORA M ? (Age): 1970(50y) Med Rec#: ? [id number] ?Sex: ?F ? Site Loc: ? [facility] ?Ht / Wt: ??160(cm)/80(kg) Pt. Loc: ?Adult Floor ? BSA: ?1.83 Study Date: ?? 03/19/2020 ?Pt. Type: Inpatient Tape: ? Referring: Hunter Navarro ([id number]) Reading: Gerardo Richter ??([id number]) Manager Aviation: Anita Guerra RDCS, FASE Diagnosis: *Other pulmonary embolism without acute cor pulmonale (I26.99) Rhythm: ? Sinus BP: ? 124/67 HR: ? 62 SUMMARY: 1. The left ventricle is probably normal [...] prior study 06/30/17, no significant changes have occured. Findings ? : Study Quality: ? Adequate Left Ventricle: ? The left ventricle is probably normal in size. ?No ventricular septal defect is visualized. ?There is normal global left ventricular systolic function. ?The quantitative left ventricular ejection fraction by biplane Daley's method is 63%. ?There are no left ventricular segmental wall motion abnormalities. ?Doppler assessment is consistent with normal left sided filling pressure. Left Atrium: ? No atrial septal defect is visualized. Right Ventricle: ? Right ventricular chamber size, wall thickness, and systolic function are within normal limits. ?The estimated pulmonary artery systolic pressure is 19 mmHg. ?The estimated right atrial pressure is 3 mmHg. Right Atrium: ? The right atrium appears normal. Aortic Valve: ? The peak instantaneous trans-valvular gradient across the aortic valve is 8.08590101930834 mmHg. ?The mean trans-valvular gradient across ??the aortic valve is 4 mmHg. ?The size of the prosthetic aortic valve is 27mm. ?The prosthetic aortic valve was implanted on 05/25/2017. ?A St. Judes mechanical aortic valve prosthesis is present. ?The mechanical aortic valve prosthesis appears well seated with normal function. ?The mechanical prosthetic aortic valve prosthesis is functioning normally with expected regurgitant jet pattern. ?There is a trace amount of prosthetic aortic valve regurgitation present. Mitral Valve: ? The mitral valve appears normal in structure and function. ?There is no evidence of mitral valve leaflet prolapse. ?There is trace mitral regurgitation present. Tricuspid Valve: ? The tricuspid valve appears normal in structure and function. ?There is trace tricuspid regurgitation present. Pulmonic Valve: ? The pulmonic valve appears normal in structure and function. Pericardium: ? The pericardium appears normal and there is no evidence of a pericardial effusion. Aorta: ? The aortic root is normal in size. ?The ascending aorta is normal in size. ?There is no evidence of coarctation of the aorta. Pulmonary Artery: ? The main pulmonary artery appears normal. Venous: ? The inferior vena cava appears normal in size. ?There is a greater than 50% respiratory change in the inferior vena cava dimension. Misc: ? Two-dimensional echo, spectral Doppler and color Doppler performed. Chambers 2D ?Value ?Units (Range) ? IVSd (2D) ? 0.93 ? cm ? LVPWd (2D) ?0.93 ? cm ? IVS:LVPW ratio (2D) 1 ?ratio ? RWT (2D) ?0.4 ?ratio ? RWT PW (2D) ? 0.4 ?ratio ? LVIDd (2D) ?4.62 ? cm ? LVIDs (2D) ?3.51 ? cm ? LVIDd (2D) index ?2.52 ? cm/m2 ? LVIDs (2D) index ?1.92 ? cm/m2 ? LV FS (2D) ?24.02 ?% ? EF Teichholz (2D) ?? 47.9 ? % ? Ao root diameter (2D2.99 ? cm (2.1 - 3.6) ? Ascending Ao ?2.79 ? cm (2 - 3.5) ? Volumes/Mass ?Value ?Units (Range) ? LA Area 4 CH ?18 ? cm2 (<21) ? LA ESV BP (A/L) inde28.65 ?ml/m2 ? RA AREA 4CH ? 16 ? cm2 ? LA ESV BP (MOD) inde25 ? ml/m2 ? LV ESV SP 4CH (MOD) 52.97 ?ml ? LV ESV SP 2CH (MOD) 53.98 ?ml ? LV EDV BP ? 131.67 ? ml ? LV ESV BP ? 54.19 ?ml ? LV EDV BP index ? 71.83 ?ml/m2 ? LV ESV BP index ? 29.56 ?ml/m2 ? BP EF (MOD) ? 58.84 ?% ? LV mass (2D) ?145.34 ? g ? LV mass (2D) index ??79.29 ?g/m2 ? Diastolic/Systolic Function ?Value ?Units (Range) ? MV E-wave Vmax ?0.75 ? m/sec ? MV deceleration xkla345.74 ? msec ? MV A-wave Vmax ?0.84 ? m/sec ? MV E:A ratio ?0.89 ? ratio ? LV septal e' Vmax ?? 0.07 ? m/sec ? LV lateral e' Vmax ??0.09 ? m/sec ? LV average e' Vmax ??0.08 ? m/sec ? LV E:e' septal ratio10.65 ?ratio ? LV E:e' lateral rati8.28 ? ratio ? LV average E:e' rati9.32 ? ratio ? Aortic Valve ?Value ?Units (Range) ? AV Vmax ? 1.46 ? m/sec ? AV VTI ?28.87 ?cm ? AV peak gradient ?8.47 ? mmHg ? AV mean gradient ?4 ?mmHg ? LVOT diameter ? 2.08 ? cm ? LVOT Vmax ? 1.2 ?m/sec ? LVOT VTI ?26.11 ?cm ? LVOT peak gradient ??5.8 ?mmHg ? LVOT mean gradient ??2.79 ? mmHg ? DOI (VTI) ? 0.9 ?ratio ? DOI (Vmax) ?0.83 ? ratio ? SV LVOT ? 88.49 ?ml ? SV LVOT Index ? 48 ? ml/m2 ? CO LVOT ? 5.49 ? l/min ? Cardiac index ? 2.99 ? l/min/m2 ? ROMINA (continuity Vmax2.8 ?cm2 ? ROMINA (continuity Vmax1.53 ? cm2/m2 ? ROMINA (continuity VTI)3.07 ? cm ? ROMINA (continuity VTI)1.67 ? cm2/m2 ? Tricuspid Valve ?Value ?Units (Range) ? TR Vmax ? 2 ?m/sec ? TR peak gradient ?16 ? mmHg ? RAP ? 3 ?mmHg ? RVSP ?19 ? mmHg ? Wall Motion: Segment Name ?Rest ? Base-Anteroseptal ?? Normal ? Base-Anterior ? Normal ? Base-Anterolateral ??Normal ? Base-Posterolateral Normal ? Base-Inferior ? Normal ? Base-Inferoseptal ?? Normal ? Mid-Anteroseptal ?Normal ? Mid-Anterior ?Normal ? Mid-Anterolateral ?? Normal ? Mid-Posterolateral ??Normal ? Mid-Inferior ?Normal ? Mid-Inferoseptal ?Normal ? [place]-Septal ? Normal ? [place]-Anterior ? Normal ? [place]-Lateral ?Normal ? [place]-Inferior ? Normal ? [place]-Tip ?Normal ? This report has been electronically signed by: Gerardo Richter ? 03/19/2020 11:16:22 Images reviewed and interpretation verified [facility] Cardiac Ultrasound Laboratory Procedure Note Gerardo Richter MD - 03/19/2020 Procedure: Transthoracic Echocardiogram Patient: SEBASTIÁN Montiel (Age): 1970(50y) Med Rec#: [id number] Sex: F Site Loc: [facility] Ht / Wt: 160(cm)/80(kg) Pt. Loc: Adult Floor BSA: 1.83 Study Date: 03/19/2020 Pt. Type: Inpatient Tape: Referring: Hunter Navarro ([id number]) Reading: Gerardo Richter ([id number]) Manager Aviation: Anita Guerra RDCS, FASE Diagnosis: *Other pulmonary embolism without acute cor pulmonale (I26.99) Rhythm: Sinus BP: 124/67 HR: 62 SUMMARY: 1. The left ventricle is probably normal [...] prior study 06/30/17, no significant changes have occured. Findings : Study Quality: Adequate Left Ventricle: The left ventricle is probably normal in size. No ventricular septal defect is visualized. There is normal global left ventricular systolic function. The quantitative left ventricular ejection fraction by biplane Daley's method is 63%. There are no left ventricular segmental wall motion abnormalities. Doppler assessment is consistent with normal left sided filling pressure. Left Atrium: No atrial septal defect is visualized. Right Ventricle: Right ventricular chamber size, wall thickness, and systolic function are within normal limits. The estimated pulmonary artery systolic pressure is 19 mmHg. The estimated right atrial pressure is 3 mmHg. Right Atrium: The right atrium appears normal. Aortic Valve: The peak instantaneous trans-valvular gradient across the aortic valve is 8.30929888875814 mmHg. The mean trans-valvular gradient across the aortic valve is 4 mmHg. The size of the prosthetic aortic valve is 27mm. The prosthetic aortic valve was implanted on 05/25/2017. A [employer]. Judes mechanical aortic valve prosthesis is present. The mechanical aortic valve prosthesis appears well seated with normal function. The mechanical prosthetic aortic valve prosthesis is functioning normally with expected regurgitant jet pattern. There is a trace amount of prosthetic aortic valve regurgitation present. Mitral Valve: The mitral valve appears normal in structure and function. There is no evidence of mitral valve leaflet prolapse. There is trace mitral regurgitation present. Tricuspid Valve: The tricuspid valve appears normal in structure and function. There is trace tricuspid regurgitation present. Pulmonic Valve: The pulmonic valve appears normal in structure and function. Pericardium: The pericardium appears normal and there is no evidence of a pericardial effusion. Aorta: The aortic root is normal in size. The ascending aorta is normal in size. There is no evidence of coarctation of the aorta. Pulmonary Artery: The main pulmonary artery appears normal. Venous: The inferior vena cava appears normal in size. There is a greater than 50% respiratory change in the inferior vena cava dimension. Misc: Two-dimensional echo, spectral Doppler and color Doppler performed. Chambers 2D Value Units (Range) IVSd (2D) 0.93 cm LVPWd (2D) 0.93 cm IVS:LVPW ratio (2D) 1 ratio RWT (2D) 0.4 ratio RWT PW (2D) 0.4 ratio LVIDd (2D) 4.62 cm LVIDs (2D) 3.51 cm LVIDd (2D) index 2.52 cm/m2 LVIDs (2D) index 1.92 cm/m2 LV FS (2D) 24.02 % EF Teichholz (2D) 47.9 % Ao root diameter (2D2.99 cm (2.1 - 3.6) Ascending Ao 2.79 cm (2 - 3.5) Volumes/Mass Value Units (Range) LA Area 4 CH 18 cm2 (<21) LA ESV BP (A/L) inde28.65 ml/m2 RA AREA 4CH 16 cm2 LA ESV BP (MOD) inde25 ml/m2 LV ESV SP 4CH (MOD) 52.97 ml LV ESV SP 2CH (MOD) 53.98 ml LV EDV BP 131.67 ml LV ESV BP 54.19 ml LV EDV BP index 71.83 ml/m2 LV ESV BP index 29.56 ml/m2 BP EF (MOD) 58.84 % LV mass (2D) 145.34 g LV mass (2D) index 79.29 g/m2 Diastolic/Systolic Function Value Units (Range) MV E-wave Vmax 0.75 m/sec MV deceleration kvqg451.74 msec MV A-wave Vmax 0.84 m/sec MV E:A ratio 0.89 ratio LV septal e' Vmax 0.07 m/sec LV lateral e' Vmax 0.09 m/sec LV average e' Vmax 0.08 m/sec LV E:e' septal ratio10.65 ratio LV E:e' lateral rati8.28 ratio LV average E:e' rati9.32 ratio Aortic Valve Value Units (Range) AV Vmax 1.46 m/sec AV VTI 28.87 cm AV peak gradient 8.47 mmHg AV mean gradient 4 mmHg LVOT diameter 2.08 cm LVOT Vmax 1.2 m/sec LVOT VTI 26.11 cm LVOT peak gradient 5.8 mmHg LVOT mean gradient 2.79 mmHg DOI (VTI) 0.9 ratio DOI (Vmax) 0.83 ratio SV LVOT 88.49 ml SV LVOT Index 48 ml/m2 CO LVOT 5.49 l/min Cardiac index 2.99 l/min/m2 ROMINA (continuity Vmax2.8 cm2 ROMINA (continuity Vmax1.53 cm2/m2 ROMINA (continuity VTI)3.07 cm ROMINA (continuity VTI)1.67 cm2/m2 Tricuspid Valve Value Units (Range) TR Vmax 2 m/sec TR peak gradient 16 mmHg RAP 3 mmHg RVSP 19 mmHg Wall Motion: Segment Name Rest Base-Anteroseptal Normal Base-Anterior Normal Base-Anterolateral Normal Base-Posterolateral Normal Base-Inferior Normal Base-Inferoseptal Normal Mid-Anteroseptal Normal Mid-Anterior Normal Mid-Anterolateral Normal Mid-Posterolateral Normal Mid-Inferior Normal Mid-Inferoseptal Normal [place]-Septal Normal [place]-Anterior Normal [place]-Lateral Normal [place]-Inferior Normal [place]-Tip Normal This report has been electronically signed by: Gerardo Neelam 03/19/2020 11:16:22 Images reviewed and interpretation verified [facility] Cardiac Ultrasound Laboratory Hunter Navarro MD ECHO ORDERABLES * Urine Hold (03/19/2020 9:26 AM EST) Urine Hold Sample in lab. [facility] Urine specimen (specimen) Urine / Unknown 03/19/2020 9:26 AM EST 03/19/2020 10:01 AM EST Becky Reynolds MD URINE ORDERABLES [facility] [place] [address] * (ABNORMAL) Protein/Creatinine Ratio, urine (03/19/2020 9:26 AM EST) U Creatinine 99 mg/dL [facility] U Protein Ran 54(H) 0 - 12 mg/dL [facility] Prot/Cre Ratio 0.5 ratio [facility] Urine specimen (specimen) 03/19/2020 9:26 AM EST 03/19/2020 9:38 AM EST Narrative Resulting Agency Comment Spec In Lab Hunter Navarro MD URINE ORDERABLE S Performing Organization Address City/[facility]/ZIP Co de Phone Number [facility] [place] [address] * (ABNORMAL) _Urinalysis with microscopic (03/19/2020 9:26 AM EST) Glucose UA Negative Negative mg/dL [facility] Protein UA 100(A) Negative mg/dL [facility] Bilirubin UA Negative Negative mg/dL [facility] Comment: Clinical correlation required for positive Urine Bilirubin results as false positive may occur with some drugs and drug related products. If a false positive is suspected a serum total bilirubin should be considered if clinically indicated. Urobilinogen UA Normal Normal mg/dL [facility] pH UA 6.0 5.0 - 8.0 [facility] Blood UA Negative Negative mg/dL [facility] Ketones UA Negative Negative mg/dL [facility] Nitrite UA Negative Negative [facility] Leukocytes UA Moderate(A) Negative [facility] Appearance UA Clear Clear [facility] Spec Hamilton UA 1.024 1.006 - 1.030 [facility] Color UA Yellow Yellow [facility] RBC UA 1 0 - 4 /HPF [facility] WBC UA 39(H) 0 - 5 /HPF [facility] Bacteria UA Rare(A) None /HPF [facility] Squam Epith UA 2 <=4 /HPF [facility] Hyaline Cast UA 2 0 - 2 /LPF [facility] Urine specimen (specimen) 03/19/2020 9:26 AM EST 03/19/2020 10:00 AM EST Narrative Resulting Agency Comment Spec In Lab Hunter Navarro MD URINE ORDERABLE S Performing Organization Address City/[facility]/ZIP Co de Phone Number [facility] [place] [address] * Differential, Automated (03/19/2020 3:23 AM EST) Neutrophils % 55.0 % [facility] Neutr Abs (ANC) 3.56 1.70 - 6.10 x10(3)/[facility] Lymphocytes % 29.3 % [facility] Lymphocytes Abs 1.9 0.9 - 3.2 x10(3)/[facility] Monocytes % 10.4 % [facility] Monocyte Abs 0.7 0.3 - 0.9 x10(3)/[facility] Eosinophils % 3.7 % [facility] Eosinophils Abs 0.2 0.0 - 0.4 x10(3)/[facility] Basophils % 1.1 % [facility] Basophils Abs 0.1 0.0 - 0.1 x10(3)/[facility] Immature Gran % 0.50 % [facility] Comment: Immature granulocytes(IG's)percentage and absolute count will include metamyelocytes, myelocytes, and promyelocytes. Blood smears from CBCs yielding IG's will be scanned manually for concordance. If this scan disagrees with the automated IG or if promyelocytes are noted, a manual differential will be performed. [place] Gran Abs 0.03 0.00 - 0.04 x10(3)/[facility] Blood specimen (specimen) 03/19/2020 3:23 AM EST 03/19/2020 3:44 AM EST Narrative Resulting Agency Comment Spec In Lab Becky Reynolds MD HEMATOLOGY ORDERABLE S [facility] [place] [address] * Hemogram (03/19/2020 3:23 AM EST) WBC 6.5 4.0 - 9.5 x10(3)/[facility] RBC 4.28 4.00 - 5.21 x10(6)/[facility] Hemoglobin 13.6 11.7 - 15.5 gm/dL [facility] Hematocrit 40.1 35.7 - 45.8 % [facility] MCV 93.7 82.6 - 94.4 [facility] MCH 31.8 27.1 - 32.0 pg [facility] MCHC 33.9 31.7 - 35.0 gm/dL [facility] Platelets 235 145 - 357 x10(3)/[facility] RDWSD 43.6 37.0 - 46.0 [facility] RDWCV 12.6 11.5 - 14.1 % [facility] MPV 10.0 7.6 - 12.9 [facility] nRBC % Auto 0.0 % [facility] nRBC Abs Auto 0.000 0.000 - 0.000 x10(3)/[facility] Blood specimen (specimen) 03/19/2020 3:23 AM EST 03/19/2020 3:44 AM EST Narrative Resulting Agency Comment Spec In Lab Becky Reynolds MD HEMATOLOGY ORDERABLE S Performing Organization Address City/[facility] Co de Phone Number [facility] [place] [address] * Magnesium (03/19/2020 3:23 AM EST) Magnesium 0.80 0.69 - 1.07 mmol/L [facility] Blood specimen (specimen) 03/19/2020 3:23 AM EST 03/19/2020 3:44 AM EST Narrative Resulting Agency Comment Spec In Lab Hunter Navarro MD CHEMISTRY ORDER ADRIANA Performing Organization Address City/[facility] Co de Phone Number [facility] [place] [address] * (ABNORMAL) Basic Metabolic Panel (non-fasting) (03/19/2020 3:23 AM EST) Glucose Lvl 98 65 - 199 mg/dL [facility] Comment:Diabetes: >=200 mg/d L plus symptoms BUN 19(H) 8 - 18 mg/dL [facility] Creatinine 0.74 0.70 - 1.20 mg/dL [facility] Sodium 141 135 - 145 mmol/L [facility] Potassium 3.8 3.5 - 5.0 mmol/L [facility] Comment: Please note: ??Patients with WBC >100,000 may have falsely elevated Potassium levels. ??For accurate Potassium quantification in these patients send serum separator tube (gold top) for subsequent determinations. ??Contact the Clinical Chemistry Laboratory if there are any questions. Chloride 105 98 - 107 mmol/L [facility] CO2 27 22 - 31 mmol/L [facility] Anion Gap 9 5 - 15 mmol/L [facility] Calcium 8.6 8.5 - 10.5 mg/dL [facility] Estimated GFR 96 >=60 mL/min/1. 73 m?? [facility] Comment: This patient? s estimated glomerular filtration rate (eGFR) is between 96 mL/min/1.73 m2 (patients with less muscle mass) and 111 mL/min/1.73 m2 (patients with more muscle mass) [...] in addition to eGFR. Blood specimen (specimen) 03/19/2020 3:23 AM EST 03/19/2020 3:44 AM EST Narrative Resulting Agency Comment Spec In Lab Hunter Navarro MD CHEMISTRY ORDER ADRIANA [facility] [place] [address] * (ABNORMAL) APTT (03/19/2020 3:23 AM EST) PTT 44(H) 25 - 37 sec [facility] Comment: The PTT is NOT appropriate for heparin monitoring. Use the Anti-Xa level for heparin monitoring (HEP UFH) or LMWH monitoring (HEP LMW). A PTT less than 37 seconds generally indicates adequate hemostasis. Blood specimen (specimen) 03/19/2020 3:23 AM EST 03/19/2020 3:44 AM EST Narrative Resulting Agency Comment Spec In Lab Hunter Navarro MD HEMATOLOGY ROLAND AMOR Performing Organization Address [facility] Co de Phone Number [facility] [place] [address] * (ABNORMAL) Prothrombin Time (03/19/2020 3:23 AM EST) Pathologist [facility] PT 28.5(H) 9.4 - 12.5 sec [facility] INR 2.5 [facility] Comment: An INR <2.0 indicates adequate [...] depending on clinical circumstances. Blood specimen (specimen) 03/19/2020 3:23 AM EST 03/19/2020 3:44 AM EST Narrative Resulting Agency Comment Spec In Lab Hunter Navarro MD HEMATOLOGY ROLAND AMOR Performing Organization Address City/[facility]/ZIP Co de Phone Number [facility] [place] [address] * Troponin (03/19/2020 3:23 AM EST) Pathologist [facility] Troponin-T <0.01 0.00 - 0.00 ng/mL [facility] Comment: The 99th percentile for Troponin T is less than 0.01 ng/mL, any detectable cTnT concentration using this assay should be considered elevated. According to the third universal definition of myocardial infarction the following criteria with a clinical presentation consistent with acute myocardial ischemia meets the diagnosis for a myocardial infarction (DC). Detection of a rise and/or fall of cTnT, with at least one value greater than the 99th percentile (> or = 0.01) and with at least one of the following ?? Symptoms of ischemia ?? New or presumed new significant RL-[id number] wave (ST-T) changes or new left bundle branch block (LBBB) ?? Development of pathologic Q waves in the ECG ?? Imaging evidence of new loss of viable myocardium or new regional wall motion abnormality ?? Identification of an intracoronary thrombus by angiography or autopsy Samples for cTnT testing should be obtained serially upon first assessment and again 3 to 6 hours later. If the clinical suspicion is high and previous samples have been negative an additional sample may be indicated. Reference: Third Dragoon Definition of Myocardial Infarction. Journal of the [place] [employer] 2012;60:1581-98 Blood specimen (specimen) 03/19/2020 3:23 AM EST 03/19/2020 3:44 AM EST Narrative Resulting Agency Comment Spec In Lab Hunter Navarro MD CHEMISTRY ORDER ADRIANA [facility] [place] [address] * COVID-19 PCR (03/19/2020 12:45 AM EST) SARS-CoV-2 RNA PCR Not Detected Not Detected [facility] Comment: This result should be interpreted in combination with the clinical observations, patient history and epidemiological information. For testing of asymptomatic individuals, assay performance characteristics and clinical utility have not been evaluated. Testing for SARS-CoV-2 (Severe acute respiratory syndrome coronavirus 2, formerly known as 2019 novel coronavirus or 2019-nCoV) to aid in the diagnosis of COVID-19 is performed using the Simplexa COVID-19 Direct Assay by [facility] as authorized by the FDA issued Emergency Use Authorization (EUA). This assay is intended for In-vitro Diagnostic (IVD) use with nasopharyngeal swabs collected from individuals meeting the CDC criteria for testing. The assay is performed based on the instructions for use and additional guidance provided by the FDA. Testing is performed in the Microbiology Laboratory within the Department of Pathology and Laboratory Medicine at [facility], certified under the Clinical Laboratory Improvement Amendments of 1988 (CLIA), 42 U.S.C. section 263a, to perform high complexity tests. Assay performance has been verified according to clinical laboratory regulatory requirements. Test results are provided above. A result of Not Detected indicates that the viral RNA target is not present but does not preclude SARS-CoV-2 infection. False negative results may occur if a specimen is improperly collected, transported or handled; if amplification inhibitors are present; or if inadequate numbers of viral particles are present in the specimen. A result of Detected suggests a current or recent infection and the patient is presumed to be infected. Positive and negative predictive values for this test are highly dependent on disease prevalence. A result of Invalid indicates the inability to conclusively determine the presence or absence of SARS-CoV-2 RNA in the sample which can be due to a variety of factors. Recollection is recommended in the case of an invalid result. CDC COVID-19 criteria for testing on human specimens and clinical management guidance information are available at the CDC Coronavirus Disease 2019 (COVID-19) webpage under Information for Healthcare Professionals (https://www.cdc.gov/coronavirus/2019-ncov/hcp/index.html). Additional information about this and other EUA tests can be found in provider and patient fact sheets at the following FDA website: https://www.fda.gov/medical-devices/yeryxhrsibj-uwtenvu-4455-grixm-28-rejgbzbct- use-a fqwibfwjajsyk-lcqlnna-iwksadm/nwtsp-bbqduxlnvoh-xjvr SARS-CoV-2 Source [employer] Swab [facility] Nasopharyngeal swab (specimen) 03/19/2020 12:45 AM EST 03/19/2020 1:34 AM EST Comment:Symptoms->Surveillan ce Narrative Resulting Agency Comment Spec In Lab Hunter Navarro MD MICROBIOLOGY - GENERAL ORDERABLES [facility] [place] [address] * (ABNORMAL) TSH (03/18/2020 9:37 PM EST) TSH 4.33(H) 0.27 - 4.20 mcIU/mL [facility] Blood specimen (specimen) 03/18/2020 9:37 PM EST 03/18/2020 9:43 PM EST Narrative Resulting Agency Comment Spec In Lab Hunter Navarro MD CHEMISTRY ORDER ADRIANA [facility] [place] [address] * Differential, Automated (03/18/2020 9:37 PM EST) Pathologist [facility] Neutrophils % 57.2 % [facility] Neutr Abs (ANC) 3.46 1.70 - 6.10 x10(3)/[facility] Lymphocytes % 28.8 % [facility] Lymphocytes Abs 1.7 0.9 - 3.2 x10(3)/[facility] Monocytes % 9.3 % [facility] Monocyte Abs 0.6 0.3 - 0.9 x10(3)/[facility] Eosinophils % 3.5 % [facility] Eosinophils Abs 0.2 0.0 - 0.4 x10(3)/[facility] Basophils % 1.0 % [facility] Basophils Abs 0.1 0.0 - 0.1 x10(3)/[facility] Immature Gran % 0.20 % [facility] Comment: Immature granulocytes(IG's)percentage and absolute count will include metamyelocytes, myelocytes, and promyelocytes. Blood smears from CBCs yielding IG's will be scanned manually for concordance. If this scan disagrees with the automated IG or if promyelocytes are noted, a manual differential will be performed. [place] Gran Abs 0.01 0.00 - 0.04 x10(3)/[facility] Blood specimen (specimen) 03/18/2020 9:37 PM EST 03/18/2020 9:43 PM EST Narrative Resulting Agency Comment Spec In Lab Becky Reynolds MD HEMATOLOGY ORDERABLE S [facility] [place] [address] * Hemogram (03/18/2020 9:37 PM EST) WBC 6.0 4.0 - 9.5 x10(3)/[facility] RBC 4.13 4.00 - 5.21 x10(6)/[facility] Hemoglobin 13.2 11.7 - 15.5 gm/dL [facility] Hematocrit 38.6 35.7 - 45.8 % [facility] MCV 93.5 82.6 - 94.4 [facility] MCH 32.0 27.1 - 32.0 pg [facility] MCHC 34.2 31.7 - 35.0 gm/dL [facility] Platelets 244 145 - 357 x10(3)/[facility] RDWSD 43.4 37.0 - 46.0 [facility] RDWCV 12.6 11.5 - 14.1 % [facility] MPV 10.1 7.6 - 12.9 [facility] nRBC % Auto 0.0 % [facility] nRBC Abs Auto 0.000 0.000 - 0.000 x10(3)/[facility] Blood specimen (specimen) 03/18/2020 9:37 PM EST 03/18/2020 9:43 PM EST Narrative Resulting Agency Comment Spec In Lab Becky Reynolds MD HEMATOLOGY ORDERABLE S [facility] [place] [address] * Magnesium (03/18/2020 9:37 PM EST) Magnesium 0.81 0.69 - 1.07 mmol/L [facility] Blood specimen (specimen) 03/18/2020 9:37 PM EST 03/18/2020 9:43 PM EST Narrative Resulting Agency Comment Spec In Lab Hunter Navarro MD CHEMISTRY ORDER ADRIANA [facility] [place] [address] * (ABNORMAL) Basic Metabolic Panel (non-fasting) (03/18/2020 9:37 PM EST) Glucose Lvl 94 65 - 199 mg/dL [facility] Comment:Diabetes: >=200 mg/d L plus symptoms BUN 19(H) 8 - 18 mg/dL [facility] Creatinine 0.88 0.70 - 1.20 mg/dL [facility] Sodium 142 135 - 145 mmol/L [facility] Potassium 4.1 3.5 - 5.0 mmol/L [facility] Comment: Please note: ??Patients with WBC >100,000 may have falsely elevated Potassium levels. ??For accurate Potassium quantification in these patients send serum separator tube (gold top) for subsequent determinations. ??Contact the Clinical Chemistry Laboratory if there are any questions. Chloride 107 98 - 107 mmol/L [facility] CO2 26 22 - 31 mmol/L [facility] Anion Gap 9 5 - 15 mmol/L [facility] Calcium 8.5 8.5 - 10.5 mg/dL [facility] Estimated GFR 78 >=60 mL/min/1. 73 m?? [facility] Comment: This patient? s estimated glomerular filtration rate (eGFR) is between 78 mL/min/1.73 m2 (patients with less muscle mass) and 90 mL/min/1.73 m2 (patients with more muscle mass) [...] in addition to eGFR. Blood specimen (specimen) 03/18/2020 9:37 PM EST 03/18/2020 9:43 PM EST Narrative Resulting Agency Comment Spec In Lab Hunter Navarro MD CHEMISTRY ORDER ADRIANA Performing Organization Address [facility] Phone Number [facility] [place] [address] * (ABNORMAL) APTT (03/18/2020 9:37 PM EST) PTT 44(H) 25 - 37 sec [facility] Comment: The PTT is NOT appropriate for heparin monitoring. Use the Anti-Xa level for heparin monitoring (HEP UFH) or LMWH monitoring (HEP LMW). A PTT less than 37 seconds generally indicates adequate hemostasis. Blood specimen (specimen) 03/18/2020 9:37 PM EST 03/18/2020 9:43 PM EST Narrative Resulting Agency Comment Spec In Lab Hunter Navarro MD HEMATOLOGY ORDE ZULEYMA Performing Organization Address [facility] de Phone Number [facility] [place] [address] * (ABNORMAL) Prothrombin Time (03/18/2020 9:37 PM EST) PT 30.5(H) 9.4 - 12.5 sec [facility] INR 2.7 [facility] Comment: An INR <2.0 indicates adequate [...] depending on clinical circumstances. Blood specimen (specimen) 03/18/2020 9:37 PM EST 03/18/2020 9:43 PM EST Narrative Resulting Agency Comment Spec In Lab Hunter Navarro MD HEMATOLOGY ORDE ZULEYMA [facility] [place] [address] * (ABNORMAL) pro-Brain Natriuretic Peptide (03/18/2020 9:37 PM EST) ProBNP 204(H) <=125 pg/mL [facility] Blood specimen (specimen) 03/18/2020 9:37 PM EST 03/18/2020 9:43 PM EST Narrative Resulting Agency Comment Spec In Lab Hunter Navarro MD CHEMISTRY ORDER ADRIANA Performing Organization Address [facility] Co de Phone Number [facility] [place] [address] * Troponin (03/18/2020 9:37 PM EST) Troponin-T <0.01 0.00 - 0.00 ng/mL [facility] Comment: The 99th percentile for Troponin T is less than 0.01 ng/mL, any detectable cTnT concentration using this assay should be considered elevated. According to the third universal definition of myocardial infarction the following criteria with a clinical presentation consistent with acute myocardial ischemia meets the diagnosis for a myocardial infarction (DC). Detection of a rise and/or fall of cTnT, with at least one value greater than the 99th percentile (> or = 0.01) and with at least one of the following ?? Symptoms of ischemia ?? New or presumed new significant IH-yrfkamw-G wave (ST-T) changes or new left bundle branch block (LBBB) ?? Development of pathologic Q waves in the ECG ?? Imaging evidence of new loss of viable myocardium or new regional wall motion abnormality ?? Identification of an intracoronary thrombus by angiography or autopsy Samples for cTnT testing should be obtained serially upon first assessment and again 3 to 6 hours later. If the clinical suspicion is high and previous samples have been negative an additional sample may be indicated. Reference: Third Dragoon Definition of Myocardial Infarction. Journal of the [place] [employer] 2012;60:1581-98 Blood specimen (specimen) 03/18/2020 9:37 PM EST 03/18/2020 9:43 PM EST Narrative Resulting Agency Comment Spec In Lab Hunter Navarro MD CHEMISTRY ORDER ADRIANA Performing Organization Address [facility] Co de Phone Number [facility] [place] [address] * Film Library- Storage Only CT Chest (03/18/2020 12:00 AM EST) Narrative [facility] - 03/21/2020 3:19 PM EST This exam is auto-finalizing. It's purpose is for storage only. 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 Primary hypercoagulable state Antiphospholipid antibody----- use antiXa level to dose heparin. Primary hypercoagulable state Systemic lupus erythematosus Aortic valve prosthesis present Heart valve replaced by other means documented in this encounter Admitting Diagnoses Diagnosis Pulmonary embolism Other pulmonary embolism and infarction documented in this encounter Administered Medications Inactive Administered Medications - up to 3 most recent administrations Medication Order MAR Action Action Date Dose Rate Site acetaminophen (Tylenol) tablet 650 mg 650 mg, Oral, EVERY 4 HOURS PRN, Starting on 03/18/20 at 2138, Until Thu03/21/20 at 1825, Pain, Maximum dose of acetaminophen is 4000 mg from all sources in 24 hours. When ordered for pain, acetaminophen should be given even when other ordered pain medications are indicated. , Routine Given 03/19/2020 12:09 PM EST 650 mg Given 03/19/2020 7:39 AM EST 650 mg aspirin chewable tablet 81 mg 81 mg, Oral, DAILY, First dose on Thu03/19/20 at 0900, Until Discontinued, Routine Given 03/21/2020 10: 22 AM EST 81 mg Given 03/20/2020 8:10 AM EST 81 mg Given 03/19/2020 8:03 AM EST 81 mg atorvastatin (Lipitor) tablet 20 mg 20 mg, Oral, EVERY EVENING, First dose on Thu03/21/20 at 1700, Until Discontinued, Routine FLUoxetine (PROzac) capsule 40 mg 40 mg, Oral, DAILY, First dose on Thu03/19/20 at 0900, Until Discontinued, Routine Given 03/21/2020 10: 20 AM EST 40 mg Given 03/20/2020 8:10 AM EST 40 mg Given 03/19/2020 8:03 AM EST 40 mg hydrOXYchloroQUINE (Plaquenil) tablet 200 mg 200 mg, Oral, 2 TIMES DAILY, First dose on Thu03/18/20 at 2200, Until Discontinued, Routine Given 03/21/2020 10:20 AM EST 200 mg Given 03/20/2020 10:09 PM EST 200 mg Given 03/20/2020 8:12 AM EST 200 mg levothyroxine (Synthroid) tablet 25 mcg 25 mcg, Oral, DAILY, First dose on Thu03/19/20 at 0600, Until Discontinued Given 03/21/2020 4:04 AM EST 25 mcg Given 03/20/2020 5:33 AM EST 25 mcg Given 03/19/2020 6:03 AM EST 25 mcg lidocaine (LIDODERM) 5 % patch 1 patch 1 patch, Transdermal, EVERY 24 HOURS, First dose on 03/18/20 at 2200, Until Discontinued, Apply patch(es) for 12 hours, and then remove for 12 hours. Apply to chest., Routine Patch Applied 03/21/2020 10:20 AM EST 1 patch 12- Chest (Right) Patch Applied 03/20/2020 10:09 PM EST 1 patch 11- Chest (Left) Patch Applied 03/19/2020 9:42 PM EST 1 patch 11- Chest (Left) lidocaine (LIDODERM) 5 %(700 mg/patch) Patch Removal Transdermal, EVERY 24 HOURS, First dose on Thu03/19/20 at 1000, Until Discontinued, Remove lidocaine 5 %(700 mg/patch) patch LORazepam (Ativan) tablet 0.5 mg 0.5 mg, Oral, ONCE, 1 dose, On 03/18/20 at 2300, Routine Given 03/18/2020 10:25 PM EST 0.5 mg melatonin tablet 3 mg 3 mg, Oral, NIGHTLY PRN, Starting on 03/18/20 at 2226, Until Thu03/21/20 at 1825, insomnia, Routine metoprolol tartrate (Lopressor) tablet 12.5 mg 12.5 mg, Oral, EVERY 12 HOURS SCHEDULED, First dose on Thu03/18/20 at 2245, Until Discontinued, Routine Given 03/21/2020 10:21 AM EST 12.5 mg Given 03/20/2020 8:06 PM EST 12.5 mg Given 03/20/2020 8:10 AM EST 12.5 mg multivitamin with minerals (THERA-M) tablet 1 tablet 1 tablet, Oral, DAILY, First dose on Thu03/19/20 at 0900, Until Discontinued, Routine Given 03/21/2020 10:21 AM EST 1 tablet Given 03/20/2020 8:10 AM EST 1 tablet Given 03/19/2020 8:03 AM EST 1 tablet pantoprazole EC (Protonix) tablet 40 mg 40 mg, Oral, 2 TIMES DAILY, First dose on 03/18/20 at 2200, Until Discontinued, DO NOT CRUSH OR OPEN, Routine Given 03/21/2020 10:21 AM EST 40 mg Given 03/20/2020 8:06 PM EST 40 mg Given 03/20/2020 8:10 AM EST 40 mg polyethylene glycoL (Miralax) packet 17 g 17 g, Oral, DAILY PRN, Starting on 03/18/20 at 2226, Until Thu03/21/20 at 1825, Constipation, Routine senna-docusate (Pericolace) 8.6-50 mg per tablet 2 tablet 2 tablet, Oral, 2 TIMES DAILY PRN, Starting on 03/18/20 at 2226, Until Thu03/21/20 at 1825, Constipation, Routine sodium chloride 0.9 % (flush) flush 5 mL 5 mL, Intravenous, 2 TIMES DAILY, First dose on 03/18/20 at 2200, Until Discontinued, Routine Given 03/21/2020 10:22 AM EST 5 mLs Given 03/20/2020 8:07 PM EST 5 mLs Given 03/20/2020 8:12 AM EST 5 mLs warfarin (COUMADIN) daily order reminder Oral, EVERY 24 HOURS, First dose on Thu03/19/20 at 1400, Until Discontinued, If the daily warfarin order has not been placed, contact the Pharmacy to confirm that the order will be written, the dose is held or discontinued., Medication Name: Warfarin, Primary Service: Cardiology, Treatment Plan: Continuation of Therapy, Indication for Anticoagulation: Pulmonary Embolism, INR Goal Range: 2-3, Anticipated Duration of Therapy: Indefinite warfarin (Coumadin) tablet 5 mg 5 mg, Oral, ONCE, 1 dose, On Thu03/18/20 at 2200, DO NOT SPLIT, CRUSH OR OPEN, Routine Given 03/18/2020 9:56 PM EST 5 mg warfarin (Coumadin) tablet 7.5 mg 7.5 mg, Oral, ONCE, 1 dose, On Thu03/19/20 at 1700, DO NOT SPLIT, CRUSH OR OPEN, Routine Given 03/19/2020 4:13 PM EST 7.5 mg warfarin (Coumadin) tablet 7.5 mg 7.5 mg, Oral, ONCE, 1 dose, On Thu03/20/20 at 1500, Give dose before discharge DO NOT SPLIT, CRUSH OR OPEN, Routine Given 03/20/2020 3:46 PM EST 7.5 mg warfarin (Coumadin) tablet 7.5 mg 7.5 mg, Oral, ONCE, 1 dose, On Thu03/21/20 at 1700, DO NOT SPLIT, CRUSH OR OPEN, Routine documented in this encounter Active and Recently Administered Medications Times are shown in EST. Scheduled Medication Order 03/19/2020 03/20/2020 03/21/2020 aspirin chewable tablet 81 mg 81 mg, Oral, DAILY, First dose on Thu03/19/20 at 0900, Until Discontinued, Routine 0803 (Given - Provider: Terrie Leo RN) 0810 (Given - Provider: Fe Hamm RN) 1022 (Given - Provider: Pebbles Bush RN) atorvastatin (Lipitor) tablet 20 mg 20 mg, Oral, EVERY EVENING, First dose on Thu03/21/20 at 1700, Until Discontinued, Routine FLUoxetine (PROzac) capsule 40 mg 40 mg, Oral, DAILY, First dose on Thu03/19/20 at 0900, Until Discontinued, Routine 0803 (Given - Provider: Terrie Leo RN) 08 (Given - Provider: Fe Hamm RN) 1020 (Given - Provider: Pebbles Bush RN) hydrOXYchloroQUINE (Plaquenil) tablet 200 mg 200 mg, Oral, 2 TIMES DAILY, First dose on Thu03/18/20 at 2200, Until Discontinued, Routine 0932 (Given - Provider: Terrie Leo RN)2026 (Given - Provider: Kalli Foley RN) 08 (Given - Provider: Fe Hamm RN)2208 (Given - Provider: Michelle Wren RN - Comment: late due to missing dose) 102 (Given - Provider: Pebbles Bush RN) levothyroxine (Synthroid) tablet 25 mcg 25 mcg, Oral, DAILY, First dose on Thu03/19/20 at 0600, Until Discontinued 602 (Given - Provider: Lucy Hi RN) 05 (Given - Provider: Kalli Foley RN) 040 (Given - Provider: Michelle Wren RN) lidocaine (LIDODERM) 5 % patch 1 patch(Linked Group 1) 1 patch, Transdermal, EVERY 24 HOURS, First dose on Thu03/18/20 at 2200, Until Discontinued, Apply patch(es) for 12 hours, and then remove for 12 hours. Apply to chest., Routine 2141 (Patch Applied - Provider: Kalli Foley RN) 2208 (Patch Applied - Provider: Michelle Wren RN) 102 (Patch Applied - Provider: Pebbles Bush RN) lidocaine (LIDODERM) 5 %(700 mg/patch) Patch Removal(Linked Group 1) Transdermal, EVERY 24 HOURS, First dose on Thu03/19/20 at 1000, Until Discontinued, Remove lidocaine 5 %(700 mg/patch) patch 1000 (Patch Removed - Provider: Terrie Leo RN) 1000 (Patch Removed - Provider: Fe Hamm RN) 1000 (Patch Removed - Provider: Pebbles Bush RN) metoprolol tartrate (Lopressor) tablet 12.5 mg 12.5 mg, Oral, EVERY 12 HOURS SCHEDULED, First dose on Thu03/18/20 at 2245, Until Discontinued, Routine 0803 (Given - Provider: Terrie Leo RN)2025 (Given - Provider: Kalli Foley RN) 08 (Given - Provider: Fe Hamm RN)2005 (Given - Provider: Michelle Wren RN) 1021 (Given - Provider: Pebbles Bush, PAIGE) multivitamin with minerals (THERA-M) tablet 1 tablet 1 tablet, Oral, DAILY, First dose on Thu03/19/20 at 0900, Until Discontinued, Routine 0803 (Given - Provider: Terrie Leo RN) 08 (Given - Provider: Fe Hamm RN) 102 (Given - Provider: Pebbles Bush, PAIGE) pantoprazole EC (Protonix) tablet 40 mg 40 mg, Oral, 2 TIMES DAILY, First dose on Thu03/18/20 at 2200, Until Discontinued, DO NOT CRUSH OR OPEN, Routine 08 (Given - Provider: Terrie Leo RN)2025 (Given - Provider: Kalli Foley RN) 08 (Given - Provider: Fe Hamm RN)2005 (Given - Provider: Michelle Wren, PAIGE) 1021 (Given - Provider: Pebbles Bush RN) sodium chloride 0.9 % (flush) flush 5 mL 5 mL, Intravenous, 2 TIMES DAILY, First dose on Thu03/18/20 at 2200, Until Discontinued, Routine 0900 (Given - Provider: Terrie Leo RN)2025 (Given - Provider: Kalli Foley RN) 08 (Given - Provider: Fe Hamm RN)2006 (Given - Provider: Michelle Wren RN) 1022 (Given - Provider: Pebbles Bush, PAIGE) warfarin (COUMADIN) daily order reminder(Linked Group 2) Oral, EVERY 24 HOURS, First dose on Thu03/19/20 at 1400, Until Discontinued, If the daily warfarin order has not been placed, contact the Pharmacy to confirm that the order will be written, the dose is held or discontinued., Medication Name: Warfarin, Primary Service: Cardiology, Treatment Plan: Continuation of Therapy, Indication for Anticoagulation: Pulmonary Embolism, INR Goal Range: 2-3, Anticipated Duration of Therapy: Indefinite 1400 (Dose confirmed - Provider: Terrie Leo RN) 1400 (Dose confirmed - Provider: Fe Hamm, PAIGE) 1400 (Dose confirmed - Provider: Pebbles Bush, PAIGE) warfarin (Coumadin) tablet 7.5 mg (COMPLETED) 7.5 mg, Oral, ONCE, 1 dose, On Thu03/19/20 at 1700, DO NOT SPLIT, CRUSH OR OPEN, Routine 1613 (Given - Provider: Terrie Leo RN) warfarin (Coumadin) tablet 7.5 mg (COMPLETED) 7.5 mg, Oral, ONCE, 1 dose, On Thu03/20/20 at 1500, Give dose before discharge DO NOT SPLIT, CRUSH OR OPEN, Routine 1546 (Given - Provider: Fe Hamm RN) warfarin (Coumadin) tablet 7.5 mg 7.5 mg, Oral, ONCE, 1 dose, On Thu03/21/20 at 1700, DO NOT SPLIT, CRUSH OR OPEN, Routine PRN Medication Order 03/19/2020 03/20/2020 03/21/2020 acetaminophen (Tylenol) tablet 650 mg 650 mg, Oral, EVERY 4 HOURS PRN, Starting on Thu03/18/20 at 2138, Until Thu03/21/20 at 1825, Pain, Maximum dose of acetaminophen is 4000 mg from all sources in 24 hours. When ordered for pain, acetaminophen should be given even when other ordered pain medications are indicated. , Routine 0739 (Given - Provider: Terrie Leo RN)1209 (Given - Provider: Terrie Leo RN) 1245 (Not Given - Provider: Pebbles Bush, PAIGE - Reason: See comment - Comment: wrong chart) lidocaine (XYLOCAINE) 10 mg/mL (1 %) injection 3 mg 3 mg (0.3 mL), Subcutaneous, ONCE PRN, 1 dose, Starting on 03/18/20 at 2109, Until Thu03/21/20 at 1825, for discomfort with PIV insertion, Routine melatonin tablet 3 mg 3 mg, Oral, NIGHTLY PRN, Starting on Thu03/18/20 at 2226, Until Thu03/21/20 at 1825, insomnia, Routine polyethylene glycoL (Miralax) packet 17 g 17 g, Oral, DAILY PRN, Starting on Thu03/18/20 at 2226, Until Thu03/21/20 at 1825, Constipation, Routine senna-docusate (Pericolace) 8.6-50 mg per tablet 2 tablet 2 tablet, Oral, 2 TIMES DAILY PRN, Starting on Thu03/18/20 at 2226, Until Thu03/21/20 at 1825, Constipation, Routine sodium chloride 0.9 % (flush) flush 5-20 mL 5-20 mL, Intravenous, EVERY 1 MIN PRN, Starting on Thu03/18/20 at 2109, Until Thu03/21/20 at 1825, flush, Flush pertains to all indwelling lines. Flush per protocol found in the job aid using the link provided on this medication record., Routine Linked Groups Order Group 1: lidocaine (LIDODERM) 5 % patch 1 patchJump to med 1 patch, Transdermal, EVERY 24 HOURS, First dose on Thu03/18/20 at 2200, Until Discontinued, Apply patch(es) for 12 hours, and then remove for 12 hours. Apply to chest., Routine And lidocaine (LIDODERM) 5 %(700 mg/patch) Patch RemovalJump to med Transdermal, EVERY 24 HOURS, First dose on Thu03/19/20 at 1000, Until Discontinued, Remove lidocaine 5 %(700 mg/patch) patch Group 2: warfarin (COUMADIN) daily order reminderJump to med Oral, EVERY 24 HOURS, First dose on Thu03/19/20 at 1400, Until Discontinued, If the daily warfarin order has not been placed, contact the Pharmacy to confirm that the order will be written, the dose is held or discontinued., Medication Name: Warfarin, Primary Service: Cardiology, Treatment Plan: Continuation of Therapy, Indication for Anticoagulation: Pulmonary Embolism, INR Goal Range: 2-3, Anticipated Duration of Therapy: Indefinite And Consult to Pharmacy (CANCELED) Routine, Medication Name: Warfarin, Reason for Consult? Pharmacist Managed Warfarin documented in this encounter Care Teams Solar Resource Assessor Relationship Specialty Start Date End Date Mckenna Genao APRN [address] [place] [address] PCP - General Family Medicine 05/07/17 08/08/21 documented as of this encounter
--- OUTSIDE RECORDS SUMMARY | 2023-11-04 15:16 | XMS_ITS | Encounter Summary ---
[place] [address] Care Team Providers Care Kosher Dietary Service Supervisor Name Role Phone Mckenna Genao APRN Primary Care Provider [phone] Encounter Details Date Type Department Care Team (Late st Contact Info) Description 11/16/2019 Telephone [place] [address] Mela Maya Social History Tobacco [...] * Telephone Encounter - Mela Maya - 11/16/2019 4:12 PM EDT Pt unreachable by phone, sending letter to book fuv documented in this encounter Plan of Treatment Upcoming Encounters Date Type Department Care Team (Late st Contact Info) Description 11/11/2023 3:00 AM EDT Anti-Coag Telephone Visit [facility] [place] [address] documented as of this encounter Visit Diagnoses Not on filedocumented in this encounter Care Teams Kosher Dietary Service Supervisor Relationship Specialty Start Date End Date Mckenna Genao, SHIRT OPERATOR [address] [place] [address] PCP - General Family Medicine 05/07/17 08/08/21 documented as of this encounter
--- OUTSIDE RECORDS SUMMARY | 2023-11-04 15:16 | XMS_ITS | Encounter Summary ---
[place] [address] Care Team Providers Care Bridge Toll Collector Name Role Phone Mckenna Genao APRN Primary Care Provider [phone] Encounter Details Date Type Department Care Team (Late st Contact Info) Description 07/05/2019 [place] [address] Mela Maya Social History Tobacco [...] * Telephone Encounter - Mela Maya - 07/05/2019 12:13 PM EDT Called pt again but no answer to confirm appt change documented in this encounter Plan of Treatment Upcoming Encounters Date Type Department Care Team (Late st Contact Info) Description 11/11/2023 3:00 AM EDT [place] [id number] documented as of this encounter Visit Diagnoses Not on filedocumented in this encounter Care Teams Bridge Toll Collector Relationship Specialty Start Date End Date Mckenna Genao APRN [address] [place] [address] PCP - General Family Medicine 05/07/17 08/08/21 documented as of this encounter
--- OUTSIDE RECORDS SUMMARY | 2023-11-04 15:16 | XMS_ITS | Encounter Summary ---
[place] [address] Care Team Providers Care Metalsmith Helper Name Role Phone TerranceMckenna hines SUELLEN Primary Care Provider [phone] Encounter Details Date Type Department Care Team (Late st Contact Info) Description 03/18/2020 Ancillary Procedure [place] [address] Social History Tobacco Use Types Packs/Day Years [...] Telephone Visit [facility] [place] [address] documented as of this encounter Procedures Procedure Name Priority Date/Time Associated Diagnosis Comments FILM LIBRARY STORAGE ONLY CT CHEST Routine 03/18/2020 12:00 AM EST documented in this encounter Results * Film Library- Storage Only CT Chest (03/18/2020 12:00 AM EST) Narrative JOSE - 03/21/2020 3:19 PM EST This exam is auto-finalizing. It's purpose is for storage only. Hunter Navarro MD IMG FILM LIBRAR Y ORDERABLES Performing Organization Address City/State/[facility] Co de Phone Number [place], [place] documented in this encounter Visit Diagnoses Not on filedocumented in this encounter Care Teams Metalsmith Helper Relationship Specialty Start Date End Date Mckenna Genao, COMMUNITY PROGRAM ASSISTANT [address] [place] [address] PCP - General Family Medicine 05/07/17 08/08/21 documented as of this encounter
--- OUTSIDE RECORDS SUMMARY | 2023-11-04 15:16 | XMS_ITS | Encounter Summary ---
[place] [address] Care Team Providers Care Florist Name Role Phone SandraMckenna rodriguez SUELLEN Primary Care Provider [phone] Encounter Details Date Type Department Care Team (Late st Contact Info) Description 08/24/2019 Telephone [place] [address] Juventino Grajeda RN Social History Tobacco Use [...] Telephone Encounter - Juventino Grajeda RN - 08/26/2019 11:13 AM EDT Linh Candelario MD sent to Juventino Grajeda RN Caller: Unspecified (3 days ago, ??1:01 PM) ?? Hi Mo, No additional recommendations, I agree with what was dicussed. I have seen the patient just once, Skyler not in detail aware of her situation, If she can afford to be off of work, probably safer if herwork place is not observing the precautionary measures during COVID-19. Thanks, I sent a [employer]ong[employer] message to Cecilia. * Telephone Encounter - Juventino Grajeda RN - 08/24/2019 8:15 AM EDT Cecilia calls to ask for a note to return to work or to stay out of work. RTC to Cecilia and she works at a [email or web address] 2 days a week. She asked her PCP for a letter and was advised that she can't go back to work because the facility is not going to observe social distancing, and she will be the only one wearing a mask. Cecilia does not want to go back to work if her health is not going to be protected. I advised I can ask her provider for recommendations. There is also a number to call for the state if facilities are not going to follow the rules put in place. documented in this encounter Plan of Treatment Upcoming Encounters Date Type Department Care Team (Late st Contact Info) Description 11/11/2023 3:00 AM EDT [place] [address] documented as of this encounter Visit Diagnoses Not on filedocumented in this encounter Care Teams Florist Relationship Specialty Start Date End Date Mckenna Genao, MOBILE DEVELOPMENT MANAGER [address] [place] [address] PCP - General Family Medicine 05/07/17 08/08/21 documented as of this encounter
--- OUTSIDE RECORDS SUMMARY | 2023-11-04 15:17 | XMS_ITS | Encounter Summary ---
[place] [address] Care Team Providers Care Reservations Specialist Name Role Phone Birgit Mckenna KEN Primary Care Provider [phone] Encounter Details Date Type Department Care Team (Late st Contact Info) Description 07/20/2017 2:00 PM EDT Office [place] [id number] Alvaro Siegel MD [facility] [place] [address] Gross hematuria Social History Tobacco Use Types [...] Sign Reading Time Taken Comments Blood Pressure 109/67 07/20/2017 2:17 PM EDT Pulse 89 07/20/2017 2:17 PM EDT Temperature 36.8 ??C (98.2 ??F) 07/20/2017 2:17 PM ED T Respiratory Rate - - Oxygen Saturation - - Inhaled Oxygen Concentration - - Weight - - Height - - Body Mass Index - - documented in this encounter Progress Notes * Alvaro Siegel MD - 07/20/2017 2:00 PM EDT Patient Name: Cecilia Dumont Date of Service: 07/20/2017 Primary Care Provider: Mckenna Genao APRN Referring Provider: Alfonso Casey MD [facility] DR UROLOGY DEPT [place] [id number] Reason for Visit: Cecilia Dumont is a 47 y.o. female who is referred for evaluation of gross hematuria. HPI: Cecilia Dumont is a 47 y.o. year [...] bowel or bladder symptoms, diarrhea or constipation. Currently the patient has no irritative symptoms with minimal frequency and nocturia. The urinary stream is good and the bladder is emptied completely. Appetite is good weight is stable. There is no bone pain. Work-up thus far has included 07/20/17 - CTU Past Medical History: Past Medical History: Diagnosis [...] 41.32) performed by Kuldeep Conner MD at [facility] MAIN OR ??? TUBAL LIGATION ??? [...] patient appears healthy and in no distress. Examination of the hands, head neck, eyes ears nose and throat is normal. The skin is normal. There is no lymphadenopathy or thyroidomegaly The chest is clear to percussion and auscultation. Audible click from AVR The abdomen is benign. There are no masses or organomegaly. External genitalia is normal a rectal and vaginal exam are not performed. Examination of the extremities and neurological examination is grossly normal. Lab values are reviewed in the EMR and and are as noted in the history. 05/2018 - Ucx Negative, UA with RBC, leuks X-rays Have been independently reviewed and are as noted in the history. 07/20/2017 - CTU with no stones, no hydro / filling defects. Bilateral simple renal cysts, final read pending Impression: #1: Gross hematuria #2: Systemic anticoagulation #3: S/p recent AVR #4: SLE Plan: # Cystoscopy (see procedure note from today) # UA / C&S / Culture # I will call with results from above tests, if negative then RTC in 6 months for UA Cecilia Dumont is a 47 y.o. female who presents today with gross hematuria. I had a long discussion today with the patient about his urologic condition. We discussed the implications of gross hematuria. We discussed various causes of hematuria which include infection, kidney stones, bladder tumor,or kidney tumor. We also indicated that 2/3 of the time, we are not able to find a specific cause of gross or microscopic blood in the urine. We explained that the evaluation of hematuria includes 1) urine culture, 2) imaging of the upper urinary tract with a 3-phse CT of the abdomen and pelvis to assess the kidneys and upper urinary tract(if there is no contraindication to IV contrast). 3) cystoscopy to visually inspect the lining of the bladder, and 4) cytology in select patients. We will arrange for Cecilia Dumont to undergo these tests, and we will determine further follow-upand management based on the results of these diagnostic studies. I answered all the patient's questions to the best of my ability and she is satisfied with the plan as outlined above. I will be in touch with her regarding the above details and she knows that she can contact me at any time with any questions or concerns. documented in this encounter Plan of Treatment Upcoming Encounters Date Type Department Care Team (Late st Contact Info) Description 11/11/2023 3:00 AM EDT [place] [phone] documented as of this encounter Visit Diagnoses Diagnosis Gross hematuria documented in this encounter Care Teams Reservations Specialist Relationship Specialty Start Date End Date Mckenna Genao, GAME TRAPPER [address] [place] [address] PCP - General Family Medicine 05/07/17 08/08/21 documented as of this encounter
--- OUTSIDE RECORDS SUMMARY | 2023-11-04 15:17 | XMS_ITS | Encounter Summary ---
[place] [address] Care Team Providers Care Mosaic Tile Maker Name Role Phone Mckenna Genao APRN Primary Care Provider [phone] Reason for Referral * Diagnostic Test (Routine) - Closed Specialty Diagnoses / Procedures Referred By Edgar warren Referred To Contact Radiology Diagnoses Gross hematuria Procedures CT Urogram Alfonso Brewster MD [facility] [place] [address] [facility] [place] [address] Referral ID Status Reason Start Date Expiration Date V isits Requested Visits Authorized [id number] Closed Specialty Service Requested 05/24/2017 05/24/2018 1 1 Reason for Visit * Diagnostic Test (Routine) - Closed Specialty Diagnoses / Procedures Referred By Edgar warren Referred To Contact Radiology Diagnoses Gross hematuria Procedures CT Urogram Alfonso Brewster MD [facility] [place] [address] [facility] [place] [address] Referral ID Status Reason Start Date Expiration Date V isits Requested Visits Authorized [id number] Closed Specialty Service Requested 05/24/2017 05/24/2018 1 1 Encounter Details Date Type Department Care Team (Latest Contact Info) Description 07/20/2017 11:44 AM EDT - 07/20/2017 11:59 PM EDT Hospital Encounter CT Scan at [facility] [place] [address] Alvaro Siegel MD [facility] [place] [address] Gross hematuria Discharge Disposition: Home Social History Tobacco Use [...] Sig Dispensed Refills Start Date End Date acetaminophen (TYLENOL) 500 mg Tablet Take 2 tablets by mouth every 6 hours as needed for Pain. 30 tablet 1 05/30/2017 aspirin 81 mg Tablet, Chewable Take 81 mg by mouth daily. 30 tablet 3 05/31/2017 multivitamin with minerals tablet 1 Tablet(s), PO, Once daily 06/05/2010 warfarin (COUMADIN) 1 mg Tablet Take 1 mg by mouth daily. Variable by day 03/21/2020 cetirizine (ZYRTEC) 10 mg Tablet Take 10 mg by mouth daily. 03/21/2020 LEVOTHYROXINE SODIUM (LEVOTHYROXINE ORAL) Take 25 mcg by mouth daily. Dosage Unknown 03/20/2020 hydroxychloroquine (PLAQUENIL) 200 mg tablet Take 1 tablet by mouth 2 times daily. 60 tablet 6 11/07/2013 10/19/2018 warfarin (COUMADIN) 5 mg tablet As directed 04/01/2012 03/21/2020 documented as of this encounter Miscellaneous Notes * Ancillary Services Notes - Ritika Rivas - 07/20/2017 12:45 PM EDT [facility] INTERVENTIONAL RADIOLOGY CT UROGRAM PROCEDURE NAME: NOAH LOWERY ADDRESS: [address] [address] HOME PHONE: [phone] (home) MOBILE NUMBER: Telephone Information: REFERRING PROVIDER: Alfonso Casey Allergies Allergen Reactions ??? Tramadol Upset stomach PERTINENT PMH: Patient Active Problem List Diagnosis Code ??? [...] ??? Gross hematuria--- while on heparin R31.0 MED'S: Prior to Admission medications Medication Sig Start Date End Date Taking? Authorizing Provider meTOPROLOL tartrate (LOPRESSOR) 25 mg Tablet 37.5 mg daily. 05/30/17 PROVIDER, HISTORICAL warfarin (COUMADIN) 1 mg Tablet Take 1 mg by mouth daily. Variable by day PROVIDER, HISTORICAL acetaminophen (TYLENOL) 500 mg Tablet Take 2 tablets by mouth every 6 hours as needed for Pain. 05/30/17 Carmelo Manzo PA aspirin 81 mg Tablet, Chewable Take 81 mg by mouth daily. 05/31/17 Carmelo Manzo PA cetirizine (ZYRTEC) 10 mg Tablet Take 10 mg by mouth daily. PROVIDER, HISTORICAL LEVOTHYROXINE SODIUM (LEVOTHYROXINE ORAL) Take by mouth daily. Dosage Unknown PROVIDER, HISTORICAL hydroxychloroquine (PLAQUENIL) 200 mg tablet Take 1 tablet by mouth 2 times daily. 11/07/13 Frances Livingston MD warfarin (COUMADIN) 5 mg tablet As directed 04/01/12 Devon Renner MD multivitamin with minerals tablet 1 Tablet(s), PO, Once daily 06/05/10 PIV PLACED: (site) MED ORDERED: LASIX 10 MG IV GIVEN @: INITIAL VITAL SIGNS: 115/51 @ 1241 POST VITAL SIGNS: 107/65 @ 1308 DISCHARGE TIME: documented in this encounter Plan of Treatment Upcoming Encounters Date Type Department Care Team (Late st Contact Info) Description 11/11/2023 3:00 AM EDT Anti-Coag Telephone Visit [facility] Centralized [place] [phone] documented as of this encounter Procedures Procedure Name Priority Date/Time Associated Diagnosis Comments CT SCAN UROLOGY Routine 07/20/2017 1:10 PM EDT Gross hematuria documented in this encounter Results * CT Urogram (07/20/2017 1:10 PM EDT) Anatomical Region Laterality Modality Abdomen, Pelvis Computed Tomogra phy Impressions 07/20/2017 4:31 PM EDT 1. ??Bilateral simple renal cysts as well as multiple subcentimeter hypodensities which are too small to characterize however favored to represent cysts. 2. ??Multifocal renal scarring. 3. ??No hydronephrosis, nephrolithiasis, or filling defect of the collecting system. Preliminary report signed by: MANUEL MARTINEZ at 07/20/2017 4:10 PM I have personally reviewed the image(s) and the residents interpretation and agree with the findings, Jill Daniels at 07/20/2017 4:31 PM Narrative 07/20/2017 4:31 PM EDT EXAMINATION: CT UROGRAM CLINICAL HISTORY: gross hematuria, three phase imaging please TECHNIQUE: Helical CT of the abdomen and pelvis was performed prior to and following intravenous administration of 110 ml of Omnipaque 350. ??3D VR and MIP images were reformatted on a separate workstation and reviewed as part of this study. COMPARISON: None FINDINGS: Right kidney and ureter: No calculi, hydronephrosis or hydroureter. Small extrarenal pelvis. A 1.9 cm exophytic simple renal cyst in the midpole of the right kidney, as well as multiple subcentimeter hypodensities which are too small to accurately characterize but are favored to represent cysts. Multifocal scarring throughout the kidney. ??No filling defect or abnormal wall thickening in the collecting system. There is a punctate calyceal diverticulum in the upper pole. Left kidney and ureter: No calculi, hydronephrosis or hydroureter. Small extrarenal pelvis. ??A 2.8 cm exophytic simple renal cyst in the midpole, as well as multiple subcentimeter hypodensities which are too small to accurately characterize but are favored to represent cysts. Multifocal scarring throughout the kidney. ??No filling defect or abnormal wall thickening in the collecting system. Urinary bladder: Normal, no calculi, or visible mass. Lower chest: A 13 mm pleural-based opacity in the right lung base measures fat density is of doubtful clinical significance. No suspicious pulmonary nodule. Liver: A 4 mm hypodensity in the right hepatic lobe is too small to characterize but statistically likely to represent a simple cyst. No other focal lesion. Liver is normal in size. Bile ducts: Nondilated. Gallbladder: Hyperdense material in the dependent portion of the gallbladder consistent with cholelithiasis/sludge. Normal caliber wall. No pericholecystic fluid. Pancreas: Normal. Spleen: Normal. Adrenals: Normal. Vasculature: No aneurysm. Lymph Nodes: No enlarged lymph nodes. Bowel: Nondilated, no wall thickening. There is a moderate to large amount of stool throughout the colon. The appendix is normal. Peritoneum and mesentery: No ascites, free air, or loculated fluid collection. No mesenteric inflammation. Abdominal wall: Normal. Reproductive organs: Normal. Osseous structures: No suspicious lesions. Procedure Note Jill Daniels MD - 07/20/2017 EXAMINATION: CT UROGRAM CLINICAL HISTORY: gross hematuria, three phase imaging please TECHNIQUE: Helical CT of the abdomen and pelvis was performed prior toand following intravenous administration of 110 ml of Omnipaque 350. 3D VRand MIP images were reformatted on a separate workstation and reviewed as part ofthis study. COMPARISON: None FINDINGS: Right kidney and ureter: No calculi, hydronephrosis or hydroureter.Small extrarenal pelvis. A 1.9 cm exophytic simple renal cyst in the midpole ofthe right kidney, as well as multiple subcentimeter hypodensities which aretoo small to accurately characterize but are favored to represent cysts.Multifocal scarring throughout the kidney. No filling defect or abnormal wallthickening in the collecting system. There is a punctate calyceal diverticulum in theupper pole. Left kidney and ureter: No calculi, hydronephrosis or hydroureter. Small extrarenal pelvis. A 2.8 cm exophytic simple renal cyst in the midpole,as well as multiple subcentimeter hypodensities which are too small toaccurately characterize but are favored to represent cysts. Multifocal scarringthroughout the kidney. No filling defect or abnormal wall thickening in thecollecting system. Urinary bladder: Normal, no calculi, or visible mass. Lower chest: A 13 mm pleural-based opacity in the right lung base measuresfat density is of doubtful clinical significance. No suspicious pulmonarynodule. Liver: A 4 mm hypodensity in the right hepatic lobe is too small tocharacterize but statistically likely to represent a simple cyst. No other focallesion. Liver is normal in size. Bile ducts: Nondilated. Gallbladder: Hyperdense material in the dependent portion of thegallbladder consistent with cholelithiasis/sludge. Normal caliber wall. Nopericholecystic fluid. Pancreas: Normal. Spleen: Normal. Adrenals: Normal. Vasculature: No aneurysm. Lymph Nodes: No enlarged lymph nodes. Bowel: Nondilated, no wall thickening. There is a moderate to large amountof stool throughout the colon. The appendix is normal. Peritoneum and mesentery: No ascites, free air, or loculated fluidcollection. No mesenteric inflammation. Abdominal wall: Normal. Reproductive organs: Normal. Osseous structures: No suspicious lesions. IMPRESSION 1. Bilateral simple renal cysts as well as multiple subcentimeterhypodensities which are too small to characterize however favored to represent cysts. 2. Multifocal renal scarring. 3. No hydronephrosis, nephrolithiasis, or filling defect of thecollecting system. Preliminary report signed by: MANUEL MARTINEZ at 07/20/2017 4:10 PM I have personally reviewed the image(s) and the residents interpretationand agree with the findings, Jill Daniels at 07/20/2017 4:31 PM Alvaro Siegel MD IMG CT ORDERABLES documented in this encounter Visit Diagnoses Diagnosis Gross hematuria documented in this encounter Administered Medications Inactive Administered Medications - up to 3 most recent administrations Medication Order MAR Action Action Date Dose Rate Site furosemide (LASIX) 10 mg/mL injection 1 dose, Starting on Thu07/20/17 at 1244, Until Thu07/20/17 at 1245, MARTÍNEZ JOHNSON: cabinet override Given 07/20/2017 12:45 PM EDT 10 mg iohexol (OMNIPAQUE) 350 mg/mL solution 0-200 mL 0-200 mL, Intravenous, ONCE PRN, 1 dose, Starting on Thu07/20/17 at 1310, Until Thu07/20/17 at 1310, Per Protocol, Warning Vesicant/Irritant Medication , Radiology Contrast, Routine Given 07/20/2017 1:10 PM EDT 110 mLs documented in this encounter Care Teams Mosaic Tile Maker Relationship Specialty Start Date End Date Mckenna Genao, DYE JIG OPERATOR [address] [place] [address] PCP - General Family Medicine 05/07/17 08/08/21 documented as of this encounter
--- OUTSIDE RECORDS SUMMARY | 2023-11-04 15:17 | XMS_ITS | Encounter Summary ---
[place] [address] Care Team Providers Care Cable Installer Repairer Helper Name Role Phone Mckenna Genao APRN Primary Care Provider [phone] Reason for Referral * Diagnostic Test (Routine) - Closed Specialty Diagnoses / Procedures Referred By Contac t Referred To Contact Cardiology Diagnoses S/P AVR Procedures Echocardiogram Transthoracic(Leb) Carmelo Manzo PA [facility] [place] [address] [facility] [place] [address] Referral ID Status Reason Start Date Expiration Date V isits Requested Visits Authorized [id number] Closed Specialty Service Requested 05/30/2017 05/30/2018 1 1 Reason for Visit * Diagnostic Test (Routine) - Closed Specialty Diagnoses / Procedures Referred By Contac t Referred To Contact Cardiology Diagnoses S/P AVR Procedures Echocardiogram Transthoracic(Leb) Carmelo Manzo PA [facility] [place] [address] [facility] [place] [address] Referral ID Status Reason Start Date Expiration Date V isits Requested Visits Authorized [id number] Closed Specialty Service Requested 05/30/2017 05/30/2018 1 1 Encounter Details Date Type Department Care Team (Latest Contact Info) Description 06/30/2017 1:48 PM EDT - 06/30/2017 11:59 PM EDT Hospital Encounter Non-In[place] [phone] Kuldeep Conner MD [facility] [place] [address] S/P AVR Discharge Disposition: Home Social History [...] 04/01/2012 03/21/2020 documented as of this encounter Plan of Treatment Upcoming Encounters Date Type Department Care Team (Late st Contact Info) Description 11/11/2023 3:00 AM EDT Anti-Coag Telephone Visit [facility] Central[place] [address] documented as of this encounter Procedures Procedure Name Priority Date/Time Associated Diagnosis Comments ECHO COMPLETE Routine 06/30/2017 2:46 PM EDT S/P AVR documented in this encounter Results * ECHO COMPLETE (06/30/2017 2:46 PM EDT) EF 59 HEARTLAB SYSTEM Anatomical Region Laterality Modality Other 06/30/2017 Narrative 06/30/2017 2:52 PM EDT Procedure: ?Transthoracic Echocardiogram Patient: ?SEBASTIÁN Montiel ? (Age): 1970(47y) Med Rec#: ? [id number] ?Sex: ?F ? Site Loc: ? [facility] ?Ht / Wt: ??162.56(cm)/69.8 Pt. Loc: ?Echo Lab ?BSA: ?1.75 Study Date: ?? 06/30/2017 ?Pt. Type: Outpatient Tape: ? Referring: Kuldeep Conner Referring: NIDIAIDANIMARIA CJ Reading: Dereck Adams ([id number]) Tin Whiz Machine Operator: Anita Guerra RDCS Diagnosis: *ICD-10-PCS Presence of other heart-valve replacement (Z95.4) Indication: ?? S/P AVR Rhythm: ? Sinus BP: ? 99/71 HR: ? 67 SUMMARY: 1. The left ventricular chamber size is normal. ??There is normal global left ventricular systolic function. ??The quantitative left ventricular ejection fraction by biplane Daley's method is 59%. ??There are no left ventricular segmental wall motion abnormalities. 2. The mechanical aortic valve prosthesis appears well seated with normal function (St Wilfredo valve). ??The prosthetic aortic valve was implanted on 05/25/2017. ??The size of the prosthetic aortic valve is 27mm. ??The mean trans-valvular gradient across ??the aortic valve is 6 mmHg. ??There is a trace amount of prosthetic aortic valve regurgitation present. 3. There is mild (1+/4+) mitral regurgitation present. 4. See remainder of report for additional findings. Findings ? : Left Ventricle: ? The left ventricular chamber size is normal. ?Left ventricular wall thickness is normal. ?There is no evidence of LVOT obstruction. ?No ventricular septal defect is visualized. ?There is normal global left ventricular systolic function. ?The quantitative left ventricular ejection fraction by biplane Daley's method is 59%. ?There are no left ventricular segmental wall motion abnormalities. ?Doppler assessment is consistent with normal left sided filling pressure. Left Atrium: ? The left atrium is mildly dilated. 40 ml/m2. ?No atrial septal defect is visualized. Right Ventricle: ? Right ventricular chamber size, wall thickness, and systolic function are within normal limits. ?The estimated pulmonary artery systolic pressure is 25 mmHg. ?The estimated right atrial pressure is 3 mmHg. Right Atrium: ? The right atrium appears normal. Aortic Valve: ? The peak instantaneous trans-valvular gradient across the aortic valve is 12 mmHg. ?The mean trans-valvular gradient across ??the aortic valve is 6 mmHg. ?The size of the prosthetic aortic valve is 27mm. ?The prosthetic aortic valve was implanted on 05/25/2017. ?A St. Judes mechanical aortic valve prosthesis is present. ?The mechanical aortic valve prosthesis appears well seated with normal function. ?There is a trace amount of prosthetic aortic valve regurgitation present. Mitral Valve: ? The mitral valve appears normal in structure and function. ?There is no evidence of mitral valve leaflet prolapse. ?There is mild (1+/4+) mitral regurgitation present. Tricuspid Valve: ? The [...] ?Value ?Units (Range) ? IVSd (2D) ? 1 ?cm ? LVPWd (2D) ?1 ?cm ? IVS:LVPW ratio (2D) 1 ?ratio ? RWT (2D) ?0.4 ?ratio ? RWT PW (2D) ? 0.4 ?ratio ? LVIDd (2D) ?5 ?cm ? LVIDs (2D) ?3.5 ?cm ? LVIDd (2D) index ?2.9 ?cm/m2 ? LVIDs (2D) index ?2 ?cm/m2 ? LV FS (2D) ?31 ? % ? EF Teichholz (2D) ?? 58 ? % ? Ao root diameter (2D2.8 ?cm (2.1 - 3.6) ? Ascending Ao ?2.8 ?cm (2 - 3.5) ? Volumes/Mass ?Value ?Units (Range) ? LA Area 4 CH ?21 ? cm2 (<21) ? LA ESV BP (A/L) inde40.1 ? ml/m2 ? RA AREA 4CH ? 14 ? cm2 ? LA ESV BP (MOD) inde40 ? ml/m2 ? LV ESV SP 4CH (MOD) 88.5 ? ml ? LV ESV SP 2CH (MOD) 77.9 ? ml ? LV EDV BP ? 188.8 ?ml ? LV ESV BP ? 84.6 ? ml ? LV EDV BP index ? 107.9 ?ml/m2 ? LV ESV BP index ? 48.4 ? ml/m2 ? BP EF (MOD) ? 55 ? % ? LV mass (2D) ?180 ?g ? LV mass (2D) index ??102.9 ?g/m2 ? Diastolic/Systolic Function ?Value ?Units (Range) ? MV E-wave Vmax ?0.9 ?m/sec ? MV deceleration msck178.8 ?msec ? MV A-wave Vmax ?0.8 ?m/sec ? MV E:A ratio ?1.1 ?ratio ? LV septal e' Vmax ?? 0.1 ?m/sec ? LV lateral e' Vmax ??0.1 ?m/sec ? LV average e' Vmax ??0.1 ?m/sec ? LV E:e' septal ratio14.6 ? ratio ? LV E:e' lateral rati7.3 ?ratio ? LV average E:e' rati9.7 ?ratio ? Aortic Valve ?Value ?Units (Range) ? AV Vmax ? 1.7 ?m/sec ? AV VTI ?31.6 ? cm ? AV peak gradient ?12 ? mmHg ? AV mean gradient ?6 ?mmHg ? LVOT Vmax ? 1.1 ?m/sec ? LVOT VTI ?20.5 ? cm ? LVOT peak gradient ??4.7 ?mmHg ? LVOT mean gradient ??2.5 ?mmHg ? DOI (VTI) ? 0.7 ?ratio ? DOI (Vmax) ?0.6 ?ratio ? Tricuspid Valve ?Value ?Units (Range) ? TR Vmax ? 2.3 ?m/sec ? TR peak gradient ?22 ? mmHg ? RAP ? 3 ?mmHg ? RVSP ?25 ? mmHg ? Pulmonic Valve/Qp:Qs ?Value ?Units (Range) ? MO end-diastolic Vma0.9 ?m/sec ? PA end-diastolic pre6.3 ?mmHg ? Wall Motion: Segment Name ?Rest ? Base-Anteroseptal ?? Normal ? Base-Anterior ? Normal ? Base-Anterolateral ??Normal ? Base-Posterolateral Normal ? Base-Inferior ? Normal ? Base-Inferoseptal ?? Normal ? Mid-Anteroseptal ?Normal ? Mid-Anterior ?Normal ? Mid-Anterolateral ?? Normal ? Mid-Posterolateral ??Normal ? Mid-Inferior ?Normal ? Mid-Inferoseptal ?Normal ? Sutton-Septal ? Normal ? Sutton-Anterior ? Normal ? Sutton-Lateral ?Normal ? Sutton-Inferior ? Normal ? Sutton-Tip ?Normal ? This report has been electronically signed by: Dereck Adams MD ? 06/30/2017 14:52:10 Images reviewed and interpretation verified [facility] Cardiac Ultrasound Laboratory Procedure Note Dereck Adams MD - 06/30/2017 Procedure: Transthoracic Echocardiogram Patient: SEBASTIÁN Montiel (Age): 1970(47y) Med Rec#: [id number] Sex: F Site Loc: [facility] Ht / Wt: 162.56(cm)/69.8 Pt. Loc: Echo Lab BSA: 1.75 Study Date: 06/30/2017 Pt. Type: Outpatient Tape: Referring: Kuldeep Conner Referring: ALVAROJ Reading: Dereck Adams ([id number]) Tin Whiz Machine Operator: Anita Guerra [facility] Diagnosis: *ICD-10-PCS Presence of other heart-valve replacement (Z95.4) Indication: S/P AVR Rhythm: Sinus BP: 99/71 HR: 67 SUMMARY: 1. The left ventricular chamber size is normal. There is normal global left ventricular systolic function. The quantitative left ventricular ejection fraction by biplane Daley's method is 59%. There are no left ventricular segmental wall motion abnormalities. 2. The mechanical aortic valve prosthesis appears well seated with normal function (St Wilfredo valve). The prosthetic aortic valve was implanted on 05/25/2017. The size of the prosthetic aortic valve is 27mm. The mean trans-valvular gradient across the aortic valve is 6 mmHg. There is a trace amount of prosthetic aortic valve regurgitation present. 3. There is mild (1+/4+) mitral regurgitation present. 4. See remainder of report for additional findings. Findings : Left Ventricle: The left ventricular chamber size is normal. Left ventricular wall thickness is normal. There is no evidence of LVOT obstruction. No ventricular septal defect is visualized. There is normal global left ventricular systolic function. The quantitative left ventricular ejection fraction by biplane Daley's method is 59%. There are no left ventricular segmental wall motion abnormalities. Doppler assessment is consistent with normal left sided filling pressure. Left Atrium: The left atrium is mildly dilated. 40 ml/m2. No atrial septal defect is visualized. Right Ventricle: Right ventricular chamber size, wall thickness, and systolic function are within normal limits. The estimated pulmonary artery systolic pressure is 25 mmHg. The estimated right atrial pressure is 3 mmHg. Right Atrium: The right atrium appears normal. Aortic Valve: The peak instantaneous trans-valvular gradient across the aortic valve is 12 mmHg. The mean trans-valvular gradient across the aortic valve is 6 mmHg. The size of the prosthetic aortic valve is 27mm. The prosthetic aortic valve was implanted on 05/25/2017. A St. Judes mechanical aortic valve prosthesis is present. The mechanical aortic valve prosthesis appears well seated with normal function. There is a trace amount of prosthetic aortic valve regurgitation present. Mitral Valve: The mitral valve appears normal in structure and function. There is no evidence of mitral valve leaflet prolapse. There is mild (1+/4+) mitral regurgitation present. Tricuspid Valve: The tricuspid [...] Chambers 2D Value Units (Range) IVSd (2D) 1 cm LVPWd (2D) 1 cm IVS:LVPW ratio (2D) 1 ratio RWT (2D) 0.4 ratio RWT PW (2D) 0.4 ratio LVIDd (2D) 5 cm LVIDs (2D) 3.5 cm LVIDd (2D) index 2.9 cm/m2 LVIDs (2D) index 2 cm/m2 LV FS (2D) 31 % EF Teichholz (2D) 58 % Ao root diameter (2D2.8 cm (2.1 - 3.6) Ascending Ao 2.8 cm (2 - 3.5) Volumes/Mass Value Units (Range) LA Area 4 CH 21 cm2 (<21) LA ESV BP (A/L) inde40.1 ml/m2 RA AREA 4CH 14 cm2 LA ESV BP (MOD) inde40 ml/m2 LV ESV SP 4CH (MOD) 88.5 ml LV ESV SP 2CH (MOD) 77.9 ml LV EDV BP 188.8 ml LV ESV BP 84.6 ml LV EDV BP index 107.9 ml/m2 LV ESV BP index 48.4 ml/m2 BP EF (MOD) 55 % LV mass (2D) 180 g LV mass (2D) index 102.9 g/m2 Diastolic/Systolic Function Value Units (Range) MV E-wave Vmax 0.9 m/sec MV deceleration wfew825.8 msec MV A-wave Vmax 0.8 m/sec MV E:A ratio 1.1 ratio LV septal e' Vmax 0.1 m/sec LV lateral e' Vmax 0.1 m/sec LV average e' Vmax 0.1 m/sec LV E:e' septal ratio14.6 ratio LV E:e' lateral rati7.3 ratio LV average E:e' rati9.7 ratio Aortic Valve Value Units (Range) AV Vmax 1.7 m/sec AV VTI 31.6 cm AV peak gradient 12 mmHg AV mean gradient 6 mmHg LVOT Vmax 1.1 m/sec LVOT VTI 20.5 cm LVOT peak gradient 4.7 mmHg LVOT mean gradient 2.5 mmHg DOI (VTI) 0.7 ratio DOI (Vmax) 0.6 ratio Tricuspid Valve Value Units (Range) TR Vmax 2.3 m/sec TR peak gradient 22 mmHg RAP 3 mmHg RVSP 25 mmHg Pulmonic Valve/Qp:Qs Value Units (Range) MO end-diastolic Vma0.9 m/sec PA end-diastolic pre6.3 mmHg Wall Motion: Segment Name Rest Base-Anteroseptal Normal Base-Anterior Normal Base-Anterolateral Normal Base-Posterolateral Normal Base-Inferior Normal Base-Inferoseptal Normal Mid-Anteroseptal Normal Mid-Anterior Normal Mid-Anterolateral Normal Mid-Posterolateral Normal Mid-Inferior Normal Mid-Inferoseptal Normal Sutton-Septal Normal Sutton-Anterior Normal Sutton-Lateral Normal Sutton-Inferior Normal Sutton-Tip Normal This report has been electronically signed by: Dereck Adams MD 06/30/2017 14:52:10 Images reviewed and interpretation verified [facility]ound [facility] Kuldeep Conner MD ECHO ORDERABLES documented in this encounter Visit Diagnoses Diagnosis S/P AVR Heart valve replaced by other means documented in this encounter Care Teams Cable Installer Repairer Helper Relationship Specialty Start Date End Date Mckenna Genao, SUELLEN [address] [place] [address] PCP - General Family Medicine 05/07/17 08/08/21 documented as of this encounter
--- OUTSIDE RECORDS SUMMARY | 2023-11-04 15:17 | XMS_ITS | Encounter Summary ---
[place] [address] Care Team Providers Care Pediatric Associate Name Role Phone Birgit Mckenna KEN Primary Care Provider [phone] Encounter Details Date Type Department Care Team (Late st Contact Info) Description 06/30/2017 3:00 PM EDT Office [place] [address] [facility] [place] [address] S/P AVR Social History Tobacco Use Types [...] Sign Reading Time Taken Comments Blood Pressure 100/60 06/30/2017 2:44 PM EDT Pulse 70 06/30/2017 2:44 PM EDT Temperature - - Respiratory Rate - - Oxygen Saturation 97% 06/30/2017 2:44 PM EDT Inhaled Oxygen Concentration - - Weight 72.1 kg (159 lb) 06/30/2017 2:44 PM EDT Height 162.2 cm (5' 3.86) 06/30/2017 2:44 PM ED T Body Mass Index 27.41 06/30/2017 2:44 PM EDT documented in this encounter Progress Notes * Nehemias Jett PA - 06/30/2017 3:00 PM EDT * Kuldeep Conner MD - 06/30/2017 3:00 PM EDT Cardiac surgery follow-up note Patient of Dr. Alegre cardiology [facility] Patient is status post mechanical AVR with hypercoagulability disorder Minimal pain No shortness of breath No fever chills Running a low INR below 2 and struggling to achieve 2-1/2+ Afebrile vital signs stable Sternum stable Wound clean dry and intact No swelling in her legs Chest x-ray clear Echo shows well-seated valve with normal function, no leaks Impression 47-year-old female with antiphospholipid antibodies who is doing well following her surgery my only concern is her struggle to get her INR above 2.5. Plan: 1. She can drive 2. Participate in cardiac rehab 3. She will follow-up with her retail and restaurant associate 4. No lifting greater than 20 pounds for the next 3 weeks and then she has no restrictions 5. She should follow-up with me if she has any specific questions or concerns documented in this encounter Plan of Treatment Upcoming Encounters Date Type Department Care Team (Late st Contact Info) Description 11/11/2023 3:00 AM EDT Anti-Coag Telephone Visit [facility] Centralized [place] [address] documented as of this encounter Procedures Procedure Name Priority Date/Time Associated Diagnosis Comments EKG 12-LEAD Routine 06/30/2017 2:55 PM EDT S/P AVR documented in this encounter Results * EKG 12 Lead (06/30/2017 2:55 PM EDT) Ventricular rate 66 BPM MUSE SYSTEM Atrial Rate 66 BPM MUSE SYSTEM P-R Interval 176 ms MUSE SYSTEM QRS Duration 102 ms MUSE SYSTEM Q-T Interval 436 ms MUSE SYSTEM QTC Calculated (Bezet) 457 ms MUSE SYSTEM Calculated P [place] 11 degrees MUSE SYSTEM Calculated R [place] 2 degrees MUSE SYSTEM Calculated T [place] -7 degrees MUSE SYSTEM INTERPRETATION Normal sinus rhythm Possible Left atrial enlargement Inferior infarct (cited on or before 19-MAY-2017) Cannot rule out T wave abnormality, consider lateral ischemia Abnormal ECG When compared with ECG of 25-MAY-2017 15:12, Significant changes have occurred Confirmed by MD Gudelia, Valdo ([id number]) on 06/30/2017 4:19:33 PM MUSE SYSTEM 06/30/2017 2:55 PM EDT 06/30/2017 4:19 PM EDT Kuldeep Conner MD ECG ORDERABLES MUSE SYSTEM documented in this encounter Visit Diagnoses Diagnosis S/P AVR Heart valve replaced by other means documented in this encounter Care Teams Pediatric Associate Relationship Specialty Start Date End Date Mckenna Genao, SUELLEN [address] [place] [address] PCP - General Family Medicine 05/07/17 08/08/21 documented as of this encounter
--- OUTSIDE RECORDS SUMMARY | 2023-11-04 15:17 | XMS_ITS | Encounter Summary ---
[place] [address] Care Team Providers Care It Security Manager Name Role Phone BirgitMckenna SUELLEN Primary Care Provider [phone] Encounter Details Date Type Department Care Team (Late st Contact Info) Description 06/01/2017 [place] [phone] Alvaro Siegel MD [facility] [place] [address] Social History Tobacco Use Types Packs/Day Years [...] 11/11/2023 3:00 AM EDT [place] [address] documented as of this encounter Visit Diagnoses Not on filedocumented in this encounter Care Teams It Security Manager Relationship Specialty Start Date End Date Mckenna Genao, SENIOR LOAN OFFICER [address] [place] [address] PCP - General Family Medicine 05/07/17 08/08/21 documented as of this encounter
--- OUTSIDE RECORDS SUMMARY | 2023-11-04 15:17 | XMS_ITS | Encounter Summary ---
[place] [address] Care Team Providers Care E Learning Manager Name Role Phone BirgitMckenna SUELLEN Primary Care Provider [phone] Encounter Details Date Type Department Care Team (Late st Contact Info) Description 06/22/2017 [place] [phone] Alvaro Siegel MD [facility] [place] [address] Gross hematuria Social History Tobacco Use Types [...] 11/11/2023 3:00 AM EDT [place] [address] documented as of this encounter Results * Creatinine (07/20/2017 10:26 AM EDT) Creatinine 0.83 0.70 - 1.20 mg/dL [facility] Estimated GFR >60 >=60 [facility] Comment: The reported eGFR should be multiplied by 1.2 for patients. The MDRD is not an appropriate measure of renal function for patients with body mass extremes or in patients with acute kidney failure. http://[employer]/DHnkdep http://[employer]/DHMCnkf Blood specimen (specimen) 07/20/2017 10:26 AM EDT 07/20/2017 10:35 AM EDT Narrative Resulting Agency Comment Spec In Lab Alvaro Siegel MD CHEMISTRY ORDERABL ES [facility] [place] [address] documented in this encounter Visit Diagnoses Diagnosis Gross hematuria documented in this encounter Care Teams E Learning Manager Relationship Specialty Start Date End Date Mckenna Genao, SUELLEN [address] [place] [address] PCP - General Family Medicine 05/07/17 08/08/21 documented as of this encounter
--- OUTSIDE RECORDS SUMMARY | 2023-11-04 15:17 | XMS_ITS | Encounter Summary ---
Author Organization [facility] Address [facility] [place] [address] Care Team Providers Care Senior Net C Developer Name Role Phone Mckenna Genao APRN Primary Care Provider [phone] Encounter Details Date Type Department Care Team (Latest Contact Info) Description 06/30/2017 12:42 PM EDT - 06/30/2017 1:47 PM EDT Hospital Encounter XRay at [address] [place] [address] Kuldeep Conner MD [facility] [place] [address] S/P AVR Discharge Disposition: Home Social History [...] tablet 1 Tablet(s), PO, Once daily 06/05/2010 cetirizine (ZYRTEC) 10 mg Tablet Take 10 [...] Visit [facility] [place] [address] documented as of this encounter Procedures Procedure Name Priority Date/Time Associated Diagnosis Comments XR CHEST PA AND LATERAL Routine 06/30/2017 1:03 PM EDT S/P AVR documented in this encounter Results * XR Chest PA & Lateral (Generic) (06/30/2017 1:03 PM EDT) Anatomical Region Laterality Modality Chest N/A Digital Radiogra phy Impressions 06/30/2017 2:26 PM EDT 1. ??No acute cardiac pulmonary process. 2. ??Resolution of postoperative bibasilar effusion and atelectasis. Preliminary report signed by: STEFAN TINEO at 06/30/2017 2:26 PM I have personally reviewed the image(s) and the residents interpretation and agree with the findings, Namrata Jin at 06/30/2017 2:26 PM Narrative 06/30/2017 2:26 PM EDT EXAMINATION: XR CHEST PA AND LATERAL (GENERIC) CLINICAL HISTORY: s/p avr TECHNIQUE: PA and lateral radiograph the chest COMPARISON: Chest date 05/28/2017 FINDINGS: The lungs are clear. Resolved postoperative bibasilar effusion and atelectasis. No pneumothorax or pleural effusion. The beulah and pulmonary vasculature is within normal limits. Enlarged left ventricle, unchanged. No suspicious osseous findings. Sternotomy wires are intact and unchanged. Procedure Note Namrata Jin MD - 06/30/2017 EXAMINATION: XR CHEST PA AND LATERAL (GENERIC) CLINICAL HISTORY: s/p avr TECHNIQUE: PA and lateral radiograph the chest COMPARISON: Chest date 05/28/2017 FINDINGS: The lungs are clear. Resolved postoperative bibasilar effusion andatelectasis. No pneumothorax or pleural effusion. The beulah and pulmonary vasculatureis within normal limits. Enlarged left ventricle, unchanged. No suspiciousosseous findings. Sternotomy wires are intact and unchanged. IMPRESSION 1. No acute cardiac pulmonary process. 2. Resolution of postoperative bibasilar effusion and atelectasis. Preliminary report signed by: STEFAN TINEO at 06/30/2017 2:26 PM I have personally reviewed the image(s) and the residents interpretationand agree with the findings, Namrata Jin at 06/30/2017 2:26 PM Kuldeep Conner MD IMG DX ORDERABLES documented in this encounter Visit Diagnoses Diagnosis S/P AVR Heart valve replaced by other means documented in this encounter Care Teams Senior Net C Developer Relationship Specialty Start Date End Date Mckenna Genao, ROUTE DELIVERY CLERK [address] [place] [address] PCP - General Family Medicine 05/07/17 08/08/21 documented as of this encounter
--- OUTSIDE RECORDS SUMMARY | 2023-11-04 15:18 | XMS_ITS | Encounter Summary ---
Author Organization [facility] [place] [address] Care Team Providers Care Lead Java Software Engineer Name Role Phone Mckenna Genao APRN Primary Care Provider [phone] Reason for Referral * Diagnostic Test (Routine) - Closed Specialty Diagnoses / Procedures Referred By Contac t Referred To Contact Cardiology Diagnoses S/P AVR Procedures Echocardiogram Transthoracic(Leb) Carmelo Manzo PA [facility] [place] [address] [facility] [place] [address] Referral ID Status Reason Start Date Expiration Date V isits Requested Visits Authorized [id number] Closed Specialty Service Requested 05/30/2017 05/30/2018 1 1 * Consultation (Routine) - Specialty Diagnoses / Procedures Referred By Contact Referred To Contact Cardiac Rehabilitation Diagnoses S/P AVR Kuldeep Conner MD [facility] [place] [address] Cardiac Rehab, [address] [place] [address] Referral ID Status Reason Start Date Expiration Date V isits Requested Visits Authorized [id number] Consult, Test & Treat 05/30/2017 11/26/2017 36 36 * Diagnostic Test (Routine) - Closed Specialty Diagnoses / Procedures Referred By Contac t Referred To Contact Radiology Diagnoses Gross hematuria Procedures CT Urogram Alfonso Brewster MD [facility] [place] [address] [facility] [place] [address] Referral ID Status Reason Start Date Expiration Date V isits Requested Visits Authorized [id number] Closed Specialty Service Requested 05/24/2017 05/24/2018 1 1 Reason for Visit * Auth/Cert Specialty Diagnoses / Procedures Referred By Contac t Referred To Contact Diagnoses Chest pain WORSENING CHEST PAIN Referral ID Status Reason Start Date Expiration Date Visits Re quested Visits Authorized [id number] 1 1 Encounter Details Date Type Department Care Team (Late st Contact Info) Description 05/17/2017 10:57 PM EST - 05/30/2017 2:43 PM EST Hospital Encounter Intermediate [place] [address] Dereck Adams MD [facility] [place] [address] Jeff Hernadez MD [facility] [place] [address] Bienvenido Wong MD [facility] [place] [address] Kuldeep Conner MD [facility] DR CARDIOTHORACIC [place] [address] S/P AVR (Primary Dx); Other chest pain; Aortic insufficiency due to bicuspid aortic valve; Gross hematuria Discharge Disposition: Home with VNA Social History Tobacco Use Types Packs/Day Years [...] Sign Reading Time Taken Comments Blood Pressure 112/53 05/30/2017 7:42 AM EST Pulse 75 05/30/2017 7:42 AM EST Temperature 37.2 ??C (99 ??F) 05/30/2017 7:42 AM EST Respiratory Rate 16 05/30/2017 7:42 AM EST Oxygen Saturation 98% 05/30/2017 7:42 AM EST Inhaled Oxygen Concentration - - Weight 70.6 kg (155 lb 10.3 oz) 05/30/2017 5:44 AM EST Height 162.6 cm (5' 4) 05/17/2017 11:0 0 PM EST Body Mass Index 26.72 05/17/2017 11:00 PM EST documented in this encounter Discharge Summaries * Carmelo Manzo PA - 05/30/2017 9:35 AM EST Inpatient - Discharge Summary Patient Name: Noah Dumont Patient Age: 47 y.o. Birthdate: 1970 Language: Afghan Race: White Ethnicity: Not nor Admit Date: 05/17/2017 Discharge Date: 05/29/17 Attending Physician: Kuldeep Conner MD Follow-up Recommendations for Providers: Please continue routine management of cardiovascular risk factors including blood pressure, lipids,glucose, etc. Please note any changes to medications. Patient to follow-up with PCP, Mckenna Genao APRN, in 1-2 weeks. Patient to follow-up with [facility] [facility], Dr. Yogi Alegre, in two weeks. Patient to follow-up with Cardiac Surgery, Dr. Kuldeep Conner, in ~ 4 weeks with CXR, EKG, and Echo. Patient to follow up with Urology, Dr Shiva Payne, as an outpatient in 1-2 weeks. Pt to follow-up with Hematology, Dr. Hills, as an outpatient in 1-2 weeks. Inpatient Provider Contact Information: [facility] Section of Cardiac Surgery [facility] [place] [address] FAX [phone] Discharge Diagnoses (Hospital Problems) Primary Diagnoses: Secondary Diagnoses: SLE Antiphospholipid antibody syndrome Other Diagnoses (Chronic Problems): Active Non-Hospital Problems Diagnosis ??? Osteoporosis ??? H/O total knee replacement ??? Cerebral infarction---at age 21 ??? Migraine Discharged to: Patient discharged to home Functional and Cognitive Status: Stable Discharge Conditions/Prognosis: Stable Past Medical History: Diagnosis Date ??? Antiphospholipid antibody syndrome ??? Anxiety ??? Cerebrovascular accident ??? Chest pain 04/01/2012 ??? CHF (congestive heart failure) ??? Depression ??? FATIMA (dyspnea on exertion) 04/01/2012 ??? H/O total knee replacement 04/01/2012 ??? Hypertension ??? Migraine ??? JAN (obstructive sleep apnea) ??? Osteoporosis 04/01/2012 ??? Osteoporosis ??? SLE (systemic lupus erythematosus) Past Surgical History: Procedure Laterality Date ??? DILATION AND CURETTAGE OF UTERUS ??? JOINT REPLACEMENT ??? LEEP ??? MOUTH SURGERY ??? PRO REPLACE AORT VALV, PROSTH VALV N/A 05/25/2017 @REPLACE AORTIC VALVE, OPEN, W\CPB, W\PROSTHETIC VALVE (WRVU 41.32) performed by Kuldeep Conner MD at [facility] MAIN OR ??? TUBAL LIGATION ??? TUBAL LIGATION Prior To Admission Medications Prescriptions Prior to Admission Medication Sig Dispense Refill Last Dose ??? lisinopril (PRINIVIL;ZESTRIL) 10 mg Tablet Take 10 mg by mouth daily. 05/17/2017 at Unknown time ??? LEVOTHYROXINE SODIUM (LEVOTHYROXINE ORAL) Take by mouth daily. Dosage Unknown 05/18/2017 at Unknown time ??? hydroxychloroquine (PLAQUENIL) 200 mg tablet Take 1 tablet by mouth 2 times daily. 60 tablet 6 05/18/2017 at Unknown time ??? warfarin (COUMADIN) 5 mg tablet As directed 05/16/2017 at Unknown time ??? multivitamin with minerals tablet 1 Tablet(s), PO, Once daily 05/18/2017 at Unknown time ??? cetirizine (ZYRTEC) 10 mg Tablet Take 10 mg by mouth daily. Unknown at Unknown time ??? enoxaparin (LOVENOX) 100 mg/mL Syringe Inject 1 mL subcutaneously daily. 4 Syringe 1 Updated Allergies/ADRs: Allergies Allergen Reactions ??? Tramadol Upset stomach History of Presentation: Mrs. Noah Dumont is a 47-year-old woman with known bicuspid valve disease. She recently has begunto experience symptoms of exertional dyspnea and chest heaviness. Repeat echocardiogram which had an opportunity to review shows severe aortic regurgitation with a dilated LV, her LV and diastolic dimension is 6.3 cm her end-systolic dimension is 4.7 cm. Her systolic function is mildly depressed at55%. Her past medical history is otherwise remarkable for untreated hypertension she had been on anACE inhibitor in the past, she is not a diabetic, she had a CVA at 21 years of age which led to thediagnosis of antiphospholipid antibody syndrome. The CVA involved the right side of her body she has had a nearly complete recovery. She has no known renal or hepatic insufficiency, she does have a diagnosis of SLE which appears to mostly manifest as joint disease. She is undergone previous bilateral knee replacements without complications. She does have the antiphospholipid antibody diagnosis for which she has been maintained on Coumadin. She has not been seen by hematology or rheumatology in s ome time. She did undergo workup for chest pain syndrome and dyspnea in 1999 1314 which included a cardiac cath that showed no obstructive coronary disease, there is a question of constrictive pericarditis but a subsequent MRI showed no evidence, and no evidence on recent TTE. Major Procedures/Operations: 05/25/17 s/p Mechanical AVR Hospital Course: Noah Dumont was admitted to [facility] on 05/17/2017 via the Cardiology Service. She was brought to the operating room where Dr. Kuldeep Conner performed an aortic valve replacement on 05/25/2017. She tolerated the procedure and was brought to the Cardiovascular Intensive Care Unit for recovery. She initially required the pharmacologic support of intravenous levo. She was extubated from the ventilator on the day of surgery. All drips were weaned to off. Routine postoperative and home medications were started and a diet was advanced. She was started on beta blockade and this was optimized. Diuretics were started and she responded appropriately. By postoperative day # 2 she was transferred to the Intermediate Cardiac Care Unit for continued rehabilitation. All tubes, lines, and epicardial pacing wires were removed without incident. She voided normally after her Veloz was removed. She was started on Coumadin for her Mechanical Valve. Upon discharge her INR is 2.7. Goal 2.5-3.0. She was seen by Physical Therapy and Cardiac Rehabilitation. Sternal precaution education was provided. Her discharge plan at this time is to discharge home with VNA. The remainder of the her hospital course was uneventful and by postoperative day #5 she had met all criteria for discharge. Pain wascontrolled on oral medications. She had walked 5 minutes and gone up and down stairs. She was tolerating a regular diet and had a bowel movement. She will follow-up with Urology as an outpatient for a CT-urogram and cystoscopy as she experiencedhematuria pre-operatively. Vital Signs at Discharge: Last set of vitals: BP 112/53 (BP Location (NBP): Right arm, Patient Position: Sitting) Pulse 75 Temp 37.2 ??C (99 ??F) (Oral) Resp 16 Ht 162.6 cm (5' 4) Wt 70.6 kg (155 lb 10.3 oz) [id number]% BMI 26.72 kg/m2 Patient Vitals for the past 168 hrs: Weight 05/30/17 0544 70.6 kg (155 lb 10.3 oz) 05/29/17 0633 71.2 kg (156 lb 15.5 oz) 05/27/17 0500 75.2 kg (165 lb 12.6 oz) 05/26/17 0600 74.9 kg (165 lb 2 oz) 05/25/17 0548 71.5 kg (157 lb 10.1 oz) 05/24/17 0400 71.8 kg (158 lb 4.6 oz) Current weight: 70.6 kg Admit/Preop weight: 71.5 kg Pertinent physical exam findings prior to discharge: Physical exam: General:well appearing, pale, sitting up in chair Neuro:awake and alert without any motor/neuro deficits noted Lungs:clear bilaterally, room air Heart:S1 S2 with audible valve click, regular Abdomen:soft, bowel sounds auscultated blt, non-tender to palpation Ext: no le edema, (+) distal pulses palpable, warm Incisions:sternotomy dressing CDI Tubes/Lines/Drains: PIV Important Studies and Lab Data: Lab Results Component Value Date WBC 9.1 05/30/2017 RBC 2.63 (L) 05/30/2017 HGB 8.8 (L) 05/30/2017 HCT 24.8 (L) 05/30/2017 PLATELET 166 05/30/2017 Recent Labs 05/30/17 0400 INR 2.7* Lab Results Component Value Date NA 141 05/28/2017 K 3.8 05/30/2017 CL 98 05/28/2017 CO2 34 (H) 05/28/2017 BUN 16 05/28/2017 CREATININE 0.65 (L) 05/28/2017 Pending Studies and Lab Data: INR Immunizations Given this Hospitalization: Immunization History Administered Date(s) Administered ??? DTaP 01/14/2012 ??? Influenza Vaccine w/Preservative, Split 01/07/2012, 01/03/2013 ??? Influenza Vaccine, Whole 03/05/2010 ??? Tdap Vaccine 03/05/2010 Smoking Status at Discharge: History Smoking Status ??? Former Smoker ??? Quit date: 10/22/2007 Smokeless Tobacco ??? Never Used STS Data Medications: Pre-operative beta montse? Not Given Discharge beta montse? Given Discharge lipid therapy? Given Discharge anti-platelet therapy? Given Discharge Medications: Your Medications New Medications Dose Details acetaminophen 500 mg Tab Commonly known as: TYLENOL Take 2 tablets by mouth every 6 hours as needed for Pain. 1000 mg Quantity: 30 tablet Refills: 1 aspirin 81 mg Chew Take 81 mg by mouth daily. Start taking on: 05/31/2017 81 mg Quantity: 30 tablet Refills: 3 metoprolol tartrate 37.5 mg Tab Take 37.5 mg by mouth every 8 hours. 37.5 mg Quantity: 90 tablet Refills: 1 Continued medications, unchanged Dose Details cetirizine 10 mg Tab Commonly known as: ZyrTEC Take 10 mg by mouth daily. 10 mg Refills: 0 hydroxychloroquine 200 mg Tab Commonly known as: PLAQUENIL Take 1 tablet by mouth 2 times daily. 200 mg Quantity: 60 tablet Refills: 6 LEVOTHYROXINE ORAL Take by mouth daily. Dosage Unknown Refills: 0 multivitamin with minerals Tab 1 Tablet(s), PO, Once daily Refills: 0 warfarin 5 mg Tab Commonly known as: COUMADIN As directed Refills: 0 STOPPED Medications enoxaparin 100 mg/mL Syrg Commonly known as: LOVENOX lisinopril 10 mg Tab Commonly known as: PRINIVIL;ZESTRIL Anticoagulation (???Blood Thinner?? ) Management upon Discharge: 1. Reason for anticoagulation therapy: Mechanical AVR, Antiphospholipid antibody syndrome 2. Your warfarin (Coumadin??) dosing instruction upon discharge is: (Follow this schedule below until your first INR check after discharge (usually in 2- 4 days): ??? Day of discharge (day #1): 2.5 mg ??? Day #2: 5 mg ??? Day #3: Per PCP ??? Day #4: Per PCP 3. Follow up INR is scheduled on: 06/01/17 4. INR Goal: 2.5- 3.5 5. Expected duration of treatment: lifetime 6. Provider/Team responsible for ongoing outpatient anticoagulation management: ??? Provider/Team/Clinic: Mckenna Genao APRN ??? 7. If you have not received a call from your provider within 24 hrs of having your INR drawn, please call your outpatient provider for further dose instructions. 8. Warfarin (Coumadin??) should be taken at the same time every day, preferably after 5:00 pm. 9. Please review your Warfarin (Coumadin??) Pack upon discharge. 10. If you will be on Warfarin (Coumadin??) indefinitely you should carry an identification card orwear a medical alert bracelet stating that you take Warfarin (Coumadin??). 11. Warfarin Education that was reviewed with you in the hospital: (please see your warfarin (Coumadin) packet for more information) ? Diet and medications can affect your INR ? Maintaining a diet with a consistent amount of vitamin K containing foods is important to keep your INR in range ? Avoid major changes in dietary habits ? Do not take or discontinue any prescription or mohn-fur-vuvihls medications without asking your doctor or pharmacist ? Inform all your doctors, pharmacists and other healthcare providers that you take warfarin (Coumadin??) ? Warfarin (Coumadin??) increases your risk of bleeding ? If you experience any of these signs or symptoms of bleeding or blood clot please seek immediate medical attention: - increased pain, swelling or sudden shortness of breath - severe headache - dizziness - unusual bleeding or bruising - changes in urine or bowel movement color - coughing or spitting up of blood, or nosebleeds that do not stop or occur more often The following table shows your most recent INR results and Warfarin (Coumadin??) doses. Please bring this to your first warfarin INR check appointment after discharge. Recent Labs 05/30/17 0400 05/29/17 0323 05/28/17 0421 05/27/17 0505 05/26/17 0940 05/25/17 1355 INR 2.7* 2.1* 1.6* 1.3* 1.1 1.5* Hospital Date 05/26 05/27 05/28 05/29 Coumadin Dose 5 mg 5 mg 7.5 mg 5 mg Note: Patient was discharged with 2.5 mg tablets. Instructions Given to Patient at Discharge: General Instructions None Discharge Instructions: Call your doctor if: You have a fever of greater than 101 degrees, shaking chills, if you develop redness or drainage from your incision sites, or if you have questions. Please call your surgeon's office if you have any discharge or drainage from your chest incision. Your surgeon, Dr. Kuldeep Conner and/or the Cardiac Surgery Physician Print Shop Chief Clerk Team may be reached at . Antibiotic prophylaxis: You will need to take antibiotics prior to many invasive tests and treatments, such as dental cleaning, which should be done every 6 months. Your primary care physician or your dentist can prescribe this medication. Please refer to the card with the [place] [employer] Guidelines for more information. You have been provided with 3 copies of this card. Keep one for your self. Give one to your primary care physician and one to your dentist. Please refer to the [place] [employer] Guidelines for more information. Good dental care is important for your overall health. We recommend waiting ~3 months before returning to your dentist except in cases of emergency. Weight: Weigh yourself daily. Please call the office if you notice increasing weight, increasing fluid retention (edema), and/or SOB. Sternal (breast bone) precautions: No lifting greater than 7-10 pounds; no pushing or pulling with upper extremities; no excessive chest stretching for the first 4 weeks. Further instructions will begiven to you at your follow-up appointment. Activity level: Walk three times a day. You should continue to increase your walks by 1-2 minutes each day. It is expected that you will be walking 20-30 minutes twice a day within 3-4 weeks after discharge to home. Rest between activities and after meals. Use common sense, don't exhaust yourself. Biking: You may use a stationary bicycle whenever you are comfortable enough to permit this. Tighten the resistance slightly. Increase the amount of time on the bicycle as you would do for your walks, a minute or two each day. No biking outside until after your return appointment with Dr. Kuldeep Madrigal. You may use a [place] [employer] or treadmill but avoid any pulling motion with the arms. Home activities: You may do light housework, e.g. dusting, setting the table, washing dishes, preparing a meal. Light carpentry and gardening are allowed. Avoid trying to open tight jars and stuck windows. No vacuuming, mopping, raking, shoveling, digging or hoeing until after your return visit with the surgeon. Sexual activity: You may engage in sexual activity when you feel ready. Use a position that protects your sternum (breastbone). Do not have your partner lie on your chest. Stairs: There are no restrictions on stair climbing. Use common sense. Don't exhaust yourself. Activities outside the home: After the first week home you may go out to dinner, visit friends, go to a movie, go to protestant, etc. Heavy activities: No hunting, skiing, jogging, snow shoveling, snowmobiling, lawn mowing, swimming,golf or tennis until after your return appointment with the surgeon. Do not ride motorcycles, ATV'stractors or horses. Avoid the use of a rifle with kickback against the shoulder for six months. Sleep: Try to establish normal sleep patterns. Long naps during the day may make it hard for you tosleep at night. Use the pain medication at bedtime for the first week at home. If you have nightmares, contact us. Some medications make this worse and these can be changed. Smoking: It is very important that you not smoke after surgery. Smoking cessation education was provided as appropriate. If you need further assistance with this please call and you will be referred to a smoking cessation specialist. Medications: Take only those medications listed on your discharge information. Keep your pain undercontrol so you can be active, do your coughing and breathing exercises and sleep. Contact us if thepain medication isn't working for you. Do not take any herbal preparations until after you return to see the surgeon. Diet: You should follow a regular diet until your appetite returns to normal. At that point in timeyou should resume a low fat, low cholesterol, [place] [employer] Diet. Driving: No driving until cleared by your surgeon. Avoid long trips if possible. If you must go on a long trip, stop the car and walk every hour. Shower/Bath: You may shower daily. No baths, soaking, or swimming until cleared by your surgeon. Wound care: Wash your incisions daily with antibacterial soap and rinse well, pat dry. Assess for any signs of infection such as increased redness, pain, warmth or drainage. Please call your surgeon's office if you have any discharge or drainage from your chest incision. If there is a lot of swelling, apply adria wraps during the day and remove at bedtime. Elevate your legs when you are sitting. REMOVE CHEST TUBE SUTURES ON OR AFTER Home oxygen therapy: N/A Follow up appointments: Patient to follow-up with PCP, Mckenna Genao APRN, in 1-2 weeks. Patient to follow-up with [facility] [facility], Dr. Yogi Alegre, in two weeks. Patient to follow-up with Cardiac Surgery, Dr. Kuldeep Conner, in ~ 4 weeks with CXR, EKG, and Echo. Patient to follow up with Urology, Dr Shiva Payne, as an outpatient in 1-2 weeks. Pt to follow-up with Hematology, Dr. Hills, as an outpatient in 1-2 weeks. Cardiac Rehabilitation: Noah Dumont was seen today regarding participation in the outpatient Phase 2 Cardiac Rehabilitation at [facility] . The patient agrees to a referral to this program. The referral will be sent at discharge and the patient should be contacted by the Program within 1- 2 weeks from discharge. Future Appointments and Orders Future Orders Complete By Expires Echocardiogram Transthoracic(Leb) [SKD264 Custom] 05/30/2017 05/30/2018 Process Instructions: If the Echocardiogram is to be PERFORMED in a location other than [place]--STOP and order [id number], Echocardiogram South/External. Scheduling Instructions: Questions: Is a Bubble Study requested?: Does the patient have Congenital Heart Disease?: Does patient require sedation?: GA rationale: XR Chest PA & Lateral (Generic) [[id number] Custom] 05/30/2017 11/29/2017 Process Instructions: Scheduling Instructions: Questions: Where will study be performed?: [place] [facility] Portable exam?: Reason for exam and clinical history: s/p avr Other pertinent information: Stat read required?: Date of injury if applicable: Requested Time: Is the patient ?: No CT Urogram [[id number] Custom] 06/23/2017 12/23/2017 Process Instructions: Scheduling Instructions: Questions: Where will study be performed?: [place] [facility] Portable exam?: Reason for exam and clinical history: gross hematuria, three phase imaging please Other pertinent information: Is the patient ?: No Stat read required?: Does patient require sedation?: GA rationale: Date of injury if applicable: Requested Time: EKG 12 Lead [EKG1 Custom] As directed Process Instructions: Scheduling Instructions: Questions: Which location will this be performed?: [place] Is a rhythm strip needed?: No If EKG Reason is Pre-op Evaluation, indicate diagnosis for surgery.: Referral to Cardiac Rehab [[id number] Custom] As directed Process Instructions: If no progress note charted, please enter Clinical details in comments. Scheduling Instructions: Questions: My question or request is: AVR- Cardiac rehab at [facility] Referral to Home Health - at DISCHARGE [GDJ0388 CPT(R)] As directed Process Instructions: Scheduling Instructions: Comments: DISCHARGE DOCUMENTATION FOR VNA SERVICES (INCLUDING THOSE PATIENTS WITH MEDICARE COVERAGE BEING DISCHARGED HOME WITH VNA SERVICES AND THOSE PATIENTS WITH MEDICARE COVERAGE WHO ARE BEING DISCHARGED HOME WITH HOSPICE SERVICES) In discussion with the attending physician, it is certified that this patient is under their care and that they, or a Nurse Practitioner, Clinical Nurse Specialist or Physician Print Shop Chief Clerk who is working directly with them, had a face to face encounter that meets the physician face to face encounter requirements with this patient on The encounter with the patient was in whole, or in part, for the following medical condition, whichis the primary reason for home health care services: s/p mechanical Aortic valve In discussion with the primary medical team, it is certified that, based on their findings, the indicated services are medically necessary and appropriate for home health services. Patient Location: [address] [address] (home) Telephone Information: HOME Health Agency: [facility] PHONE: [phone] FAX: [phone] RN: Assess cardiopulmonary assessment, vital signs, medication management and effectiveness, elimination and nutrition and home safety evaluation Please draw INR if indicated and fax results as instructed: Provider/Team/Clinic: Mckenna Genao APRN Start of Care Date: 24 to 48 hours post discharge All VNA agencies which cover the area of patient's residence have been reviewed, either verbally jean-pierre writing, and patient/family have chosen the indicated home health care agency for home services. FOR MEDICARE ONLY: In discussion with the attending physician, it is certified that the clinical findings support thatthis patient is homebound i.e. absences from home require considerable and taxing effort; Needs assistance of a person to the leave the home. Please note that any additional orders needs or changes will need to be obtained from this patient's PCP: Mckenna Genao APRN [address] [place] [address] Questions: Agency name and contact information: [facility]/VNA Patient location post discharge: home What services are requested: Registered Nurse Physical Therapy Start date: Responsible MD post discharge contact info: Arrangements for VNA/home care: As above. VN RN OR PCP TO PLEASE REMOVE CHEST TUBE SUTURES ON OR AFTER Signed: JANET VILLARREAL [facility] Section of Cardiac Surgery [facility] [place] [id number] FAX [phone] Date: 05/30/2017 CC: SUELLEN [place] [address] [place] [address] [place] [address] documented in this encounter Discharge Instructions * Discharge Instructions* Carmelo Manzo PA - 05/30/2017 9:34 AM EST * Patient Instructions* Carmelo Manzo PA - 05/30/2017 9:34 AM EST Anticoagulation (???Blood Thinner?? ) Management upon Discharge: 1. Reason for anticoagulation therapy: Mechanical AVR, Antiphospholipid antibody syndrome 2. Your warfarin (Coumadin??) dosing instruction upon discharge is: (Follow this schedule below until your first INR check after discharge (usually in 2- 4 days): ??? Day of discharge (day #1): 2.5 mg ??? Day #2: 5 mg ??? Day #3: Per PCP ??? Day #4: Per PCP 3. Follow up INR is scheduled on: 06/01/17 4. INR Goal: 2.5- 3.5 5. Expected duration of treatment: lifetime 6. Provider/Team responsible for ongoing outpatient anticoagulation management: ??? Provider/Team/Clinic: Mckenna Genao APRN ??? 7. If you have not received a call from your provider within 24 hrs of having your INR drawn, please call your outpatient provider for further dose instructions. 8. Warfarin (Coumadin??) should be taken at the same time every day, preferably after 5:00 pm. 9. Please review your Warfarin (Coumadin??) Pack upon discharge. 10. If you will be on Warfarin (Coumadin??) indefinitely you should carry an identification card orwear a medical alert bracelet stating that you take Warfarin (Coumadin??). 11. Warfarin Education that was reviewed with you in the hospital: (please see your warfarin (Coumadin) packet for more information) ? Diet and medications can affect your INR ? Maintaining a diet with a consistent amount of vitamin K containing foods is important to keep your INR in range ? Avoid major changes in dietary habits ? Do not take or discontinue any prescription or [id number] medications without asking your doctor or pharmacist ? Inform all your doctors, pharmacists and other healthcare providers that you take warfarin (Coumadin??) ? Warfarin (Coumadin??) increases your risk of bleeding ? If you experience any of these signs or symptoms of bleeding or blood clot please seek immediate medical attention: - increased pain, swelling or sudden shortness of breath - severe headache - dizziness - unusual bleeding or bruising - changes in urine or bowel movement color - coughing or spitting up of blood, or nosebleeds that do not stop or occur more often The following table shows your most recent INR results and Warfarin (Coumadin??) doses. Please bring this to your first warfarin INR check appointment after discharge. Recent Labs 05/23/17 0050 05/22/17 0546 05/21/17 0353 05/20/17 0513 05/19/17 1225 05/19/17 0535 INR 1.2* 1.2* 1.4* 1.7* 2.0* 2.2* Hospital Date 05/26 05/27 05/28 05/29 Coumadin Dose 5 mg 5 mg 7.5 mg 5 mg Note: Patient was discharged with 2.5 mg tablets. Discharge Instructions: Call your doctor if: You have a fever of greater than 101 degrees, shaking chills, if you develop redness or drainage from your incision sites, or if you have questions. Please call your surgeon's office if you have any discharge or drainage from your chest incision. Your surgeon, Dr. Kuldeep Conner and/or the Cardiac Surgery Physician Print Shop Chief Clerk Team may be reached at . Antibiotic prophylaxis: You will need to take antibiotics prior to many invasive tests and treatments, such as dental cleaning, which should be done every 6 months. Your primary care physician or your dentist can prescribe this medication. Please refer to the card with the [place] [employer] Guidelines for more information. You have been provided with 3 copies of this card. Keep one for your self. Give one to your primary care physician and one to your dentist. Please refer to the [place] [employer] Guidelines for more information. Good dental care is important for your overall health. We recommend waiting ~3 months before returning to your dentist except in cases of emergency. Weight: Weigh yourself daily. Please call the office if you notice increasing weight, increasing fluid retention (edema), and/or SOB. Sternal (breast bone) precautions: No lifting greater than 7-10 pounds; no pushing or pulling with upper extremities; no excessive chest stretching for the first 4 weeks. Further instructions will begiven to you at your follow-up appointment. Activity level: Walk three times a day. You should continue to increase your walks by 1-2 minutes each day. It is expected that you will be walking 20-30 minutes twice a day within 3-4 weeks after discharge to home. Rest between activities and after meals. Use common sense, don't exhaust yourself. Biking: You may use a stationary bicycle whenever you are comfortable enough to permit this. Tighten the resistance slightly. Increase the amount of time on the bicycle as you would do for your walks, a minute or two each day. No biking outside until after your return appointment with Dr. Kuldeep Madrigal. You may use a [place] or treadmill but avoid any pulling motion with the arms. Home activities: You may do light housework, e.g. dusting, setting the table, washing dishes, preparing a meal. Light carpentry and gardening are allowed. Avoid trying to open tight jars and stuck windows. No vacuuming, mopping, raking, shoveling, digging or hoeing until after your return visit with the surgeon. Sexual activity: You may engage in sexual activity when you feel ready. Use a position that protects your sternum (breastbone). Do not have your partner lie on your chest. Stairs: There are no restrictions on stair climbing. Use common sense. Don't exhaust yourself. Activities outside the home: After the first week home you may go out to dinner, visit friends, go to a movie, go to protestant, etc. Heavy activities: No hunting, skiing, jogging, snow shoveling, snowmobiling, lawn mowing, swimming,golf or tennis until after your return appointment with the surgeon. Do not ride motorcycles, ATV'stractors or horses. Avoid the use of a rifle with kickback against the shoulder for six months. Sleep: Try to establish normal sleep patterns. Long naps during the day may make it hard for you tosleep at night. Use the pain medication at bedtime for the first week at home. If you have nightmares, contact us. Some medications make this worse and these can be changed. Smoking: It is very important that you not smoke after surgery. Smoking cessation education was provided as appropriate. If you need further assistance with this please call and you will be referred to a smoking cessation specialist. Medications: Take only those medications listed on your discharge information. Keep your pain undercontrol so you can be active, do your coughing and breathing exercises and sleep. Contact us if thepain medication isn't working for you. Do not take any herbal preparations until after you return to see the surgeon. Diet: You should follow a regular diet until your appetite returns to normal. At that point in timeyou should resume a low fat, low cholesterol, [place] [employer] Diet. Driving: No driving until cleared by your surgeon. Avoid long trips if possible. If you must go on a long trip, stop the car and walk every hour. Shower/Bath: You may shower daily. No baths, soaking, or swimming until cleared by your surgeon. Wound care: Wash your incisions daily with antibacterial soap and rinse well, pat dry. Assess for any signs of infection such as increased redness, pain, warmth or drainage. Please call your surgeon's office if you have any discharge or drainage from your chest incision. If there is a lot of swelling, apply adria wraps during the day and remove at bedtime. Elevate your legs when you are sitting. REMOVE CHEST TUBE SUTURES ON OR AFTER Home oxygen therapy: N/A Follow up appointments: Patient to follow-up with PCP, Mckenna Genao APRN, in 1-2 weeks. Patient to follow-up with Edge Grinder Machine, Dr. Yogi Alegre, in two weeks. Patient to follow-up with Cardiac Surgery, Dr. Kuldeep Conner, in ~ 4 weeks with CXR, EKG, and Echo. Patient to follow up with Urology, Dr Shiva Payne, as an outpatient in 1-2 weeks. Pt to follow-up with Hematology, Dr. Hills, as an outpatient in 1-2 weeks. Cardiac Rehabilitation: Noah Dumont was seen today regarding participation in the outpatient Phase 2 Cardiac Rehabilitation at [facility] . The patient agrees to a referral to this program. The referral will be sent at discharge and the patient should be contacted by the Program within 1- 2 weeks from discharge. documented in this encounter Medications at Time of Discharge Medication Sig Dispensed Refills Start Date End Date acetaminophen (TYLENOL) 500 mg Tablet Take 2 tablets by mouth every 6 hours as needed for Pain. 30 tablet 1 05/30/2017 aspirin 81 mg Tablet, Chewable Take 81 mg by mouth daily. 30 tablet 3 05/31/2017 multivitamin with minerals tablet 1 Tablet(s), PO, Once daily 06/05/2010 metoprolol tartrate 37.5 mg Tablet Take 37.5 mg by mouth every 8 hours. 90 tablet 1 05/30/2017 06/30/2017 cetirizine (ZYRTEC) 10 mg Tablet Take 10 mg by mouth daily. 03/21/2020 LEVOTHYROXINE SODIUM (LEVOTHYROXINE ORAL) Take 25 mcg by mouth daily. Dosage Unknown 03/20/2020 hydroxychloroquine (PLAQUENIL) 200 mg tablet Take 1 tablet by mouth 2 times daily. 60 tablet 6 11/07/2013 10/19/2018 warfarin (COUMADIN) 5 mg tablet As directed 04/01/2012 03/21/2020 documented as of this encounter Progress Notes * Sabas Walker RN - 05/30/2017 12:49 PM EST Discharge orders written, patient understands instructions and follow up visits, patient discharge to home with friend. * Harvey Bahena RN - 05/29/2017 8:01 PM EST Pt had low BP for 1900 Vitals. consulted. Will continue to monitor. 2200 lopressor changed to 37.5. If SBP is 90 or below- will hold. * Harvey Bahena RN - 05/29/2017 6:37 PM EST Pt c/o upper left arm pain. IV patent. second mate will evaluate. * Anne-Marie Renner DT - 05/29/2017 3:07 PM EST Nutrition Services - Initial Note Noah Dumont : 1970 AGE: 47 y.o. Patient Active Problem List Diagnosis Date Noted ??? *Hospital-[address] Alegre with severe AI, SLE, and APLS admitted for conversion to heparin prior to AVR. Course c/b gross hematuria, CHARLES, cp, anxiety. 05/17/2017 Priority: High ??? Hospital-Chest pain-- normal cors by cath in 2004 and 201104/01/2012 Priority: High Chronic ??? Hospital-Antiphospholipid antibody----- use antiXa level to dose heparin. 11/27/2010 Priority: High Chronic ??? Hospital-Dilated cardiomyopathy--- noted in 2004, improved 10/21/2010 Priority: High Chronic ??? Hospital-JAN on CPAP 03/22/2012 Priority: Medium Chronic ??? Hospital-Hyperlipemia 03/22/2012 Priority: Medium Chronic ??? Hospital-Systemic lupus erythematosus 11/27/2010 Priority: Medium Chronic ??? Hospital-Hypertension 10/21/2010 Priority: Medium Chronic ??? Hospital-Depression and anxiety Priority: Low Chronic ??? Hospital-Gross hematuria--- while on heparin 05/23/2017 ??? Osteoporosis 04/01/2012 Chronic ??? H/O total knee replacement 04/01/2012 ??? Cerebral infarction---at age 21 03/22/2012 Chronic ??? Migraine 03/22/2012 Chronic Reason for Nutrition Intervention: Hospital Day 9 Diet Order: Regular Appetite: Not very good Food allergies: NKFA Chewing/Swallowing difficulty: None noted Ht Readings from Last 3 Encounters: 05/17/17 162.6 cm (5' 4) 05/13/17 162.2 cm (5' 3.86) 05/07/17 162.6 cm (5' 4) Wt Readings from Last 3 Encounters: 05/29/17 71.2 kg (156 lb 15.5 oz) 05/13/17 71.5 kg (157 lb 9.6 oz) 05/07/17 73 kg (161 lb) Body mass index is 26.94 kg/(m^2). Assessment: Patient seen regarding hospital LOS. Pt informed of current diet order w/o questions. Pt stated she typically watches her sugar and salt intake at home. Store Associate informed pt she can continue to order her meals here on how she would eat at home on current diet. Pt agreeable. She reported afair appetite without difficulty chewing or swallowing. She had just started experiencing nausea (medical writer informed nursing). Pt stated she consumed apple juice for breakfast today. For lunch she ate 1/2 s/w, fruit and cheese. Nursing notes documenting 25% + 50% PO intakes on 05/28. Pt filling out menu choices daily. Patient had no further questions at this time. Encouraged patient to contact Food and Nutrition services with any questions that may arise. Nutrition will monitor and follow up weekly. Nutrition Plan: Continue current diet. Recommend Daily Multi Vitamins. Monitor weight. Encourage good po intake. Support and encouragement provided. Nutrition services to follow weekly thru hospital course unless consulted in the interim. SUZETTE Baum * Jill Stevenson - 05/29/2017 9:35 AM EST Vince Encounter Note Patient Name: Noah Dumont : [id number] MR#: [id number] Admit Date: 05/17/2017 10:57 PM Hospital Day 11 days Narrative: Doing rounds and the patient invited me into the room. This was a light hearted visit. She is sitting in the recliner with the big, red, heart-shaped pillow on her chest. She states that she hopes to go home soon. The patient needs to adjust to new diet and have her other 'body-functions' working before she can leave. Assessment: Coping well in that she believes she is on the mend and will have a full recovery. Hoping to go home soon Intervention and Outcome: Supportive Presence Follow-up: [facility] [employer] Screen Watcher is available to Ms. Dumont during this admission. Time in Direct Care: 10 minutes Oxana Casiano 05/29/2017 * Chloé Arguello PA - 05/29/2017 9:29 AM EST Cardiac Surgery Progress Note: ID: [id number] Noah Dumont is a 47yo female s/p mechanical AVR, POD#4. Pmhx: SLE, lupus anticoagulant, antiphospholipid syndrome, CVA age 21, HTN, HLD, hypothyroid, GERD,JAN, amenorrhea 10 years following uterine ablation EF-55% 24 Hour Events: - following anti-Xa until therapeutic on coumadin, INR 2.1 today. Goal for mechanical AVR 2.5-3.0 - no bm - sinus rhythm, occasionally tachy to 120s, better controlled with increased metop. Net neg 1.5 L, net even weight - POD#3 was wnl S: feeling well this AM. Slept well ON with pain controlled. On room air. Reports flatus, denies BMfollowing suppository. No hx of abdominal surgery. Denies abdominal pain. Denies fevers, chills, nausea, or vomiting. O: Temperature Temp: 36.9 ??C (98.4 ??F) Temp: [36.7 ??C (98.1 ??F)-37 ??C (98.6 ??F)] Heart Rate Heart Rate: 96 Heart Rate: [91-127] Blood Pressure BP: 102/47 BP: (88-122)/(47-65) Respiratory Rate Resp: 20 Resp: [18-24] SpO2 SpO2: 93 % SpO2: [88 %-100 %] I/O last 3 completed shifts: In: 1290 [P.O.:1290] Out: 4550 [Urine:4550] I/O this shift: In: - Out: 200 [Urine:200] I- 1 L cc O- 2.75 L UO Net-1.6 L/24 hrs -11 L/admission Admit weight 71.3 kg Current Weight Weight: 71.2 kg (156 lb 15.5 oz) Patient Vitals for the past 168 hrs: Weight 05/29/17 0633 71.2 kg (156 lb 15.5 oz) 05/27/17 0500 75.2 kg (165 lb 12.6 oz) 05/26/17 0600 74.9 kg (165 lb 2 oz) 05/25/17 0548 71.5 kg (157 lb 10.1 oz) 05/24/17 0400 71.8 kg (158 lb 4.6 oz) 05/23/17 0435 72.2 kg (159 lb 2.8 oz) Physical exam: General:well appearing, pale, sitting up in chair Neuro:awake and alert without any motor/neuro deficits noted Lungs:clear bilaterally, room air Heart:S1 S2 with audible valve click, regular Abdomen:soft, bowel sounds auscultated blt, non-tender to palpation Ext: no le edema, (+) distal pulses palpable, warm Incisions:sternotomy dressing CDI Tubes/Lines/Drains: PIV LABS: Recent Labs 05/29/17 0323 05/28/17 0421 05/27/17 0505 05/26/17 0940 WBC 10.2* 13.1* 16.8* 18.0* HGB 8.5* 9.0* 10.0* 11.7 HCT 25.3* 26.1* 29.3* 32.6* PLATELET 166 146 140* 140* PT 23.6* 19.1* 15.8* 14.1* INR 2.1* 1.6* 1.3* 1.1 PTT -- -- -- 34 Recent Labs 05/29/17 0323 05/28/17 0421 05/27/17 0505 NA -- 141 -- K 3.9 4.1 4.7 CL -- 98 -- CO2 -- 34* -- BUN -- 16 -- CREATININE -- 0.65* -- GLUCOSE -- 105 -- CALCIUM -- 8.5 -- ABG (Arterial Blood Gas) No results found for: PHART, PO2ART, [id number] Assessment/Plan: POD #4 s/p mechanical AVR. Pmhx pertinent for SLE, lupus anticoagulant, antiphospholipid syndrome, CVA age 21, HTN, HLD, hypothyroid, GERD, JAN, amenorrhea 10 years following uterineablation - Continue hep infusion per antiXa protocol; INR goal discussed with hematology (mechanical AVR in the setting of antiphospholipid antibody syndrome, goal is still 2.5-3.0) - increase metop to 50 tid - stop diuresis (net even wt, room air, net -1.6L/24 hrs) - suppository and enema today - acute blood loss anemia 2/2 to surgery (Hgb 8.5 today) Neuro:frequent neuro exams, scheduled APAP, dilaudid prn pain, ativan prn anxiety CV:continue cardiac monitoring, increase Metoprolol to 50mg TID Resp: room air, hourly IS, pulse oximetry GI: Cardiac diet, daily protonix, RBOs, suppository and enema today : strict I+O; urology following pre-op- will perform CT-urogram and cystoscopy as outpatient in clinic Renal: replete K+ as per protocol, stop diuresis ID:[id number] [email or web address] complete Heme:daily ASA, redose coumadin; INR goal is 2.5-3.0 for mechanical AVR, heparin infusion as per AntiXa protocol Endo: SSI Dispo:[facility], full code DW Attending Surgeon on rounds. Signed: JANET Nagy [facility] Section of Cardiac Surgery Date: 05/29/2017 * Rosa Maria Hills MD - 05/28/2017 3:06 PM EST Images from the original note were not included. [facility] [place] [address] THROMBOSIS FOLLOW UP DATE OF VISIT 05/28/2017 Patient Noah Dumont 1970 DIAGNOSIS: ANTIPHOSPHOLIPID SYNDROME S/ Noah is doing very well on post-op day 3 from her aortic valve replacement. She is out of bed, in a chair with little in the way of pain. She has no active bleeding and no leg pain or swelling. She's working with her spirometer and though she has a bit of a cough and sore throat, has no shortness of breath. Heparin is infusing, bridging to warfarin in progress. O/ BP 104/61 (BP Location (NBP): Right arm, Patient Position: Sitting) Pulse 92 Temp 36.7 ??C (98.1 ??F) (Oral) Resp 20 Ht 162.6 cm (5' 4) Wt 75.2 kg (165 lb 12.6 oz) SpO2 94% BMI 28.46 kg/m2 Awake, alert & in no distress. HEENT No oral mucosal bleeding Chest Wound is clean, dry & intact. No oozing. Normal respiratory effort. Heart Regular Ext No edema Skin No ecchymoses or oozing from IV sites. LABORATORY STUDIES Results for NOAH DUMONT ( ) as of 05/28/2017 15:14 Ref. Range 05/28/2017 04:21 WBC Latest Ref Range: 4.0 - 9.5 x10(3)/mcL 13.1 (H) RBC Latest Ref Range: 4.00 - 5.21 x10(6)/mcL 2.81 (L) Hemoglobin Latest Ref Range: 11.7 - 15.5 gm/dL 9.0 (L) Hematocrit Latest Ref Range: 35.7 - 45.8 % 26.1 (L) MCV Latest Ref Range: 82.6 - 94.4 fL 92.9 MCH Latest Ref Range: 27.1 - 32.0 pg 32.0 MCHC Latest Ref Range: 31.7 - 35.0 gm/dL 34.5 RDWSD Latest Ref Range: 37.0 - 46.0 fL 43.9 RDWCV Latest Ref Range: 11.5 - 14.1 % 12.9 Platelets Latest Ref Range: 145 - 357 x10(3)/mcL 146 Results for NOAH DUMONT ( ) as of 05/28/2017 15:14 Ref. Range 05/26/2017 23:40 05/27/2017 05:05 05/27/2017 15:30 05/27/2017 21:32 05/28/2017 04:21 Heparin Lhet08v Latest Units: IU/mL 0.55 0.46 0.34 0.42 0.39 A/ Doing well post-op. No overt bleeding or clotting complications. Heparin is well within the therapeutic range. Warfarin bridging proceeding as expected. Recommendations: Continue bridging to warfarin, target INR per cardiology protocol Agree with unfractionated heparin infusion with anti-Xa monitoring. She is reliable within the therapeutic range, so I would suggest decreasing the monitoring frequency. If you wish to discharge her before the INR is therapeutic, I have no objection to the use of enoxaparin to complete the bridge if that is in line with your usual practice. Given her antiphospholipidsyndrome, however, I do not recommend stopping heparin (either UH or LMWH) until the INR is reliably in the therapeutic range (i.e., at least for 24 to 48 hours). If home on enoxaparin, though, I would recommend twice daily rather than once daily dosing now that she has the prosthetic valve. Please call with questions. Rosa Maria Hills MD Produce Sorter, [facility] * Teetee Helm Bere - 05/28/2017 1:41 PM EST Vince Encounter Note Patient Name: Noah Dumont : [id number] MR#: [id number] Admit Date: 05/17/2017 10:57 PM Hospital Day 10 days Narrative: Noah was sitting up in a chair by the window when I visited. She had cardiac surgery on Thursday (05/25), after a few days delay. She told me about her surgery and plans for transitioning home. She said her protestant community will provide meals and her son, Franky, will come and stay with her a few days so that her , Cale, can work. Having Cale's continued income is important, she said. Cale works at [employer] in [place] where they live. Noah worries about their finances. Assessment: Noah looked tired and said she feels tired, but has walked the loop a few times. She lives on the 3rd floor of an apartment building and is talking about how she will deal with those stairs when she returns home. She is confident of the assistance she'll receive from her protestant ([facility]) and friends so she doesn't seem concerned about meals and assistance. Although Cale does not attend protestant, Noah is an active member and relies on her fiorella for support. Intervention and Outcome: Conversation, listening Follow-up: If Noah is still here on Thursday, I will try to visit. Time in Direct Care: 30 min Teetee Blackburn Volodymyr 05/28/2017 I * Melissa Aviles RN - 05/28/2017 11:28 AM EST OFFICE OF CARE MANAGEMENT VOLCANOLOGY TEACHER PROGRESS NOTE CM-RN met with patient at bedside to discuss the need for VNA services at discharge. Patient will need RN & PT (for sternal precautions). Patient states she has good support at home from her , Cale, and her two adult children. She is also involved in her protestant and has much support fromher protestant community. The patient has been provided a list of Home Health Agencies which serve their preferred geographicarea. A letter describing our affiliations was reviewed with them and they were educated about their right to choose where referrals are placed. Patient requests referral to: [facility]. PHONE: [phone] FAX: [phone] Expected date of discharge: possible d/c to home on Thursday Referral routed to the Technical Support Analyst for matching with agency/vendor and to provide any required information. Plan: CM will continue to follow for coordination of care and to facilitate discharge planning. GEORGIA Aviles RN, BS, pager [phone] I * Chloé Argeullo PA - 05/28/2017 9:14 AM EST Cardiac Surgery Progress Note: ID: [id number] Noah Dumont is a 47yo female s/p mechanical AVR, POD#3. Pmhx: SLE, lupus anticoagulant, antiphospholipid syndrome, CVA age 21, HTN, HLD, hypothyroid, GERD,JAN, amenorrhea 10 years following uterine ablation EF-55% 24 Hour Events: - following anti-Xa until therapeutic on coumadin, INR 1.6 today - no BM - CT and TPW out yesterday - sinus tachy up to the 120s with ambulation, run of atrial bigem ON - POD#3 wnl, awaiting CXR S: feeling well this AM. Slept well ON with pain controlled. On room air. Reports flatus, denies BM. Denies fevers, chills, nausea, or vomiting. O: Temperature Temp: 36.7 ??C (98.1 ??F) Temp: [36.4 ??C (97.5 ??F)-37.7 ??C (99.9 ??F)] Heart Rate Heart Rate: (!) 106 Heart Rate: [88-114] Blood Pressure BP: 107/59 BP: (96-115)/(44-69) Respiratory Rate Resp: 22 Resp: [16-34] SpO2 SpO2: 96 % SpO2: [90 %-99 %] I/O last 3 completed shifts: In: 1400.9 [P.O.:860; I.V.:540.9] Out: 5290 [Urine:5180; Other:110] I/O this shift: In: 200 [P.O.:200] Out: - I- 600 cc O- 3.7 L UO Net - (-)3L /24h -10 L/admission Admit weight 71.3 kg Current Weight Weight: 75.2 kg (165 lb 12.6 oz) Patient Vitals for the past 168 hrs: Weight 05/27/17 0500 75.2 kg (165 lb 12.6 oz) 05/26/17 0600 74.9 kg (165 lb 2 oz) 05/25/17 0548 71.5 kg (157 lb 10.1 oz) 05/24/17 0400 71.8 kg (158 lb 4.6 oz) 05/23/17 0435 72.2 kg (159 lb 2.8 oz) 05/22/17 0609 71.5 kg (157 lb 10.1 oz) Physical exam: General:well appearing, pale, sitting up in chair Neuro:awake and alert without any motor/neuro deficits noted Lungs:clear bilaterally Heart:S1 S2 with audible valve click, regular Abdomen:soft, hypoactive bowel sounds Ext: trace blt le edema, (+) distal pulses palpable, warm Incisions:sternotomy dressing CDI Tubes/Lines/Drains: PIV LABS: Recent Labs 05/28/17 0421 05/27/17 0505 05/26/17 0940 05/26/17 0400 05/25/17 1940 05/25/17 1355 05/25/17 1235 WBC 13.1* 16.8* 18.0* 16.6* -- 13.7* -- HGB 9.0* 10.0* 11.7 11.2* 10.8* 8.0* 8.7* HCT 26.1* 29.3* 32.6* 31.5* -- 23.1* 24.5* PLATELET 146 140* 140* 128* -- 107* 134* PT 19.1* 15.8* 14.1* -- -- 18.0* -- INR 1.6* 1.3* 1.1 -- -- 1.5* -- PTT -- -- 34 -- -- 33 -- FIBRINOGEN -- -- -- -- -- 260 267 Recent Labs 05/28/17 0421 05/27/17 0505 05/26/17 0400 05/25/17 1940 NA 141 -- 142 -- K 4.1 4.7 4.7 4.4 CL 98 -- 106 -- CO2 34* -- 24 -- BUN 16 -- 14 -- CREATININE 0.65* -- 0.65* -- GLUCOSE 105 -- -- -- CALCIUM 8.5 -- -- -- ABG (Arterial Blood Gas) No results found for: PHART, PO2ART, [id number] Assessment/Plan: POD #3 s/p mechanical AVR. Pmhx pertinent for SLE, lupus anticoagulant, antiphospholipid syndrome, CVA age 21, HTN, HLD, hypothyroid, GERD, JAN, amenorrhea 10 years following uterineablation - Continue hep infusion per antiXa protocol; redose coumadin at 7.5 - increase metop to 50 bid - suppository today - POD#3 labs wnl, pending CXR Neuro:frequent neuro exams, scheduled APAP, dilaudid prn pain, ativan prn anxiety CV:continue cardiac monitoring, increase Metoprolol to 50mg BID Resp: room air, hourly IS, pulse oximetry GI: Cardiac diet, daily protonix, RBOs, suppository today : strict I+O; urology following pre-op- will perform CT-urogram and cystoscopy as outpatient in clinic Renal: replete K+ as per protocol, lasix 20mg IV BID ID:[email or web address]-op cefuroxime complete Heme:daily ASA, coumadin 7.5mg today with daily INR (goal 2.5-3.5 for mechanical AVR), heparin infusion as per AntiXa protocol Endo: SSI Dispo:[facility], full code DW Attending Surgeon on rounds. Signed: JANET Nagy [facility] Section of Cardiac Surgery Date: 05/28/2017 * Sabas Walker RN - 05/27/2017 6:25 PM EST Patient transferred over from the CV s/p post op day 2 from a mechanical AVR. Telemetry initiatedplus call dowell. * Pat Ely RN - 05/27/2017 6:00 PM EST A+O. Hemodynamically stable. Pt denies CP/SOB throughout shift. Epicardial wires/CTs d/c'd today- pt tolerated well. Pain well controlled w/ PRN dilaudid and scheduled tylenol. Pt ambulated around unit tolerated well. Heparin gtt maintained per order. Veloz d/c'd- pt able to void. SR/ST @ beginning of shift. After ambulating this evening pt had OR interval changes, possible accelerated junct?, and atrial bigem. Pt asymptomatic, remains hemodynamically stable, team aware, will continue to monitor. Report given to PAIGE Chowdhury. Pt transferred to ICCU per order. * Verónica Watters S, BEVERAGE HOST - 05/27/2017 8:11 AM EST Cardiac Surgery Progress Note: ID: [id number] Noah Dumont is a 47yo female s/p mechanical AVR, POD#1. Extubated day of surgery. Initially out of OR with levoped and epinephrine but easily weaned to off. No blood products given intra op. Pmhx: SLE, lupus anticoagulant, antiphospholipid syndrome, CVA age 21, HTN, HLD, hypothyroid, GERD,JAN, amenorrhea 10 years following uterine ablation EF-55% 24 Hour Events: no overnight events S:The walk to a lot out of me this morning. Review of Systems - General ROS: negative for - chills or fever; positive for - anxious at times Respiratory ROS: negative for - cough, shortness of breath or tachypnea Cardiovascular ROS: negative for - chest pain, palpitations or rapid heart rate Gastrointestinal ROS: negative for - abdominal pain or vomiting; positive for - nausea Musculoskeletal ROS: negative for - muscular weakness or edema Neurological ROS: negative for - confusion, dizziness, gait disturbance, speech problems, visual changes or weakness O: Temperature Temp: 36.9 ??C (98.4 ??F) Temp: [36.9 ??C (98.4 ??F)-38 ??C (100.4 ??F)] Heart Rate Heart Rate: (!) 104 Heart Rate: [82-110] Blood Pressure BP: 106/66 BP: (99-129)/(46-72) Respiratory Rate Resp: 24 Resp: [14-33] SpO2 SpO2: 94 % SpO2: [90 %-100 %] I/O last 3 completed shifts: In: 2577.1 [P.O.:660; I.V.:1817.1; IV Piggyback:100] Out: 3730 [Urine:3365; Other:365] I/O this shift: In: 1743 [I.V.:1743] Out: 125 [Urine:125] I- O- 1355cc UO Net - (-)270cc/24h Admit weight 71.3 kg Current Weight Weight: 75.2 kg (165 lb 12.6 oz) Patient Vitals for the past 168 hrs: Weight 05/27/17 0500 75.2 kg (165 lb 12.6 oz) 05/26/17 0600 74.9 kg (165 lb 2 oz) 05/25/17 0548 71.5 kg (157 lb 10.1 oz) 05/24/17 0400 71.8 kg (158 lb 4.6 oz) 05/23/17 0435 72.2 kg (159 lb 2.8 oz) 05/22/17 0609 71.5 kg (157 lb 10.1 oz) 05/21/17 0618 71.8 kg (158 lb 4.6 oz) Physical exam: General:well appearing, pale Neuro:awake and alert without any motor/neuro deficits noted Lungs:clear bilaterally, CTs to atrium with suction, no evidence of airleak-to be dc'd Heart:S1 S2 with audible valve click, regular Abdomen:soft, hypoactive bowel sounds Ext:no evidence of edema, (+) distal pulses palpable, warm Incisions:sternotomy dressing CDI Tubes/Lines/Drains:RIJ introducer, CTs-to be dc'd, PW-to be dc'd, henrique LABS: Recent Labs 05/27/17 0505 05/26/17 0940 05/26/17 0400 05/25/17 1940 05/25/17 1355 05/25/17 1235 05/25/17 0348 05/24/17 1046 WBC 16.8* 18.0* 16.6* -- 13.7* -- 5.8 -- -- HGB 10.0* 11.7 11.2* 10.8* 8.0* 8.7* 12.4 < > -- HCT 29.3* 32.6* 31.5* -- 23.1* 24.5* 35.8 < > -- PLATELET 140* 140* 128* -- 107* 134* 158 < > -- PT 15.8* 14.1* -- -- 18.0* -- -- -- -- INR 1.3* 1.1 -- -- 1.5* -- -- -- -- PTT -- 34 -- -- 33 -- -- -- 107* FIBRINOGEN -- -- -- -- 260 267 -- -- -- < > = values in this interval not displayed. Recent Labs 05/27/17 0505 05/26/17 0400 05/25/17 1940 05/25/17 0348 NA -- 142 -- 142 K 4.7 4.7 4.4 4.1 CL -- 106 -- 102 CO2 -- 24 -- 25 BUN -- 14 -- 19* CREATININE -- 0.65* -- 0.85 CALCIUM -- -- -- 9.0 ABG (Arterial Blood Gas) No results found for: PHART, PO2ART, [id number] Assessment/Plan: POD #2 s/p mechanical AVR. Will continue heparin infusion - antiXa protocol. Coumadin started yesterday, dosed for 5mg today. Will dc PWs and CTs today. Lasix to be started. Neuro:frequent neuro exams, scheduled APAP, dilaudid prn pain, ativan prn anxiety CV:continue cardiac monitoring, Metoprolol 25mg BID, hold heparin infusion and dc PW this morning Resp:2L NC, wean as tolerated, hourly IS, pulse oximetry, dc CTs GI: Cardiac diet, daily protonix, RBOs :velzo, strict I+O Renal: replete K+ as per protocol, lasix 20mg IV BID ID:peña-op cefuroxime Heme:daily ASA, coumadin 5mg today with daily INR, heparin infusion as per AntiXa protocol Endo:insulin infusion as per protocol Dispo:CVCC, full code DW Attending Surgeon on rounds. Signed: Verónica Watters APRN [facility] Section of Cardiac Surgery Date: 05/27/2017 * Rena Alarcon - 05/26/2017 10:56 AM EST [employer] Screen Watcher Encounter Note Patient Name: Noah Dumont : [id number] MR#: [id number] Admit Date: 05/17/2017 10:57 PM Hospital Day 9 days Narrative: Visited on rounds, Noah sitting up in her chair, welcoming a visit. Assessment: She reports preoccupation with pain in the aftermath of surgery yesterday, difficulty sleeping as aresult. She indicates a supportive family, a who will help care for her at home and a [employer] community that offers to cook for her after her discharge. She finds comfort in the many people who have signed her heart pillow. Intervention and Outcome: Presence and reflection appreciated. Follow-up: Yes, after her move to a lower level of care/ Time in Direct Care: 20 mins. Rena Alarcon 05/26/2017 I * Verónica Watters APRN - 05/26/2017 9:11 AM EST Cardiac Surgery Progress Note: ID: [id number] Noah Dumont is a 47yo female s/p mechanical AVR, POD#1. Extubated day of surgery. Initially out of OR with levoped and epinephrine but easily weaned to off. No blood products given intra op. Pmhx: SLE, lupus anticoagulant, antiphospholipid syndrome, CVA age 21, HTN, HLD, hypothyroid, GERD,JAN, amenorrhea 10 years following uterine ablation EF-55% 24 Hour Events: extubated 8p to 4L NC. Doing well overnight. Nausea overnight S:I am having some nausea this morning. I was able to get into the chair easily. Review of Systems - General ROS: negative for - chills or fever Respiratory ROS: negative for - cough, shortness of breath or tachypnea Cardiovascular ROS: negative for - chest pain, palpitations or rapid heart rate Gastrointestinal ROS: negative for - abdominal pain or vomiting; positive for - nausea Musculoskeletal ROS: negative for - muscular weakness or edema Neurological ROS: negative for - confusion, dizziness, gait disturbance, speech problems, visual changes or weakness O: Temperature Temp: 37.5 ??C (99.5 ??F) Temp: [36.1 ??C (97 ??F)-37.5 ??C (99.5 ??F)] Heart Rate Heart Rate: (!) 120 Heart Rate: [87-120] Blood Pressure BP: 118/62 BP: (85-123)/(55-69) Respiratory Rate Resp: 28 Resp: [9-28] SpO2 SpO2: 93 % SpO2: [93 %-100 %] Hemodynamics: CO CI - 2.8 PA - CVP 8 Drips: Nicardipine off 6:30a I/O last 3 completed shifts: In: 6004.9 [P.O.:180; I.V.:4567.9; Blood:757; Other:500] Out: 5220 [Urine:5075; Other:145] I- O- 3375cc UO Net - (+) 2.3L/24h Admit weight 71.3 kg Current Weight Weight: 74.9 kg (165 lb 2 oz) Patient Vitals for the past 168 hrs: Weight 05/26/17 0600 74.9 kg (165 lb 2 oz) 05/25/17 0548 71.5 kg (157 lb 10.1 oz) 05/24/17 0400 71.8 kg (158 lb 4.6 oz) 05/23/17 0435 72.2 kg (159 lb 2.8 oz) 05/22/17 0609 71.5 kg (157 lb 10.1 oz) 05/21/17 0618 71.8 kg (158 lb 4.6 oz) 05/20/17 0703 72 kg (158 lb 11.7 oz) Physical exam: General:well appearing, pale Neuro:awake and alert without any motor/neuro deficits noted Lungs:clear bilaterally, CTs to atrium with suction, no evidence of airleak Heart:S1 S2 with audible valve click, regular Abdomen:soft, quiet abdomen Ext:no evidence of edema, (+) distal pulses palpable, warm Incisions:sternotomy dressing CDI Tubes/Lines/Drains:RIJ introducer, LRAL, CTs, PW, veloz LABS: Recent Labs 05/26/17 0400 05/25/17 1940 05/25/17 1355 05/25/17 1235 05/25/17 0348 05/24/17 1046 05/24/17 0358 05/23/17 1936 05/23/17 1333 WBC 16.6* -- 13.7* -- 5.8 -- 6.4 -- -- -- HGB 11.2* 10.8* 8.0* 8.7* 12.4 -- 12.5 < > -- -- HCT 31.5* -- 23.1* 24.5* 35.8 -- 35.0* -- -- -- PLATELET 128* -- 107* 134* 158 -- 163 -- -- -- PT -- -- 18.0* -- -- -- -- -- -- -- INR -- -- 1.5* -- -- -- -- -- -- -- PTT -- -- 33 -- -- 107* 126* -- 122* 111* FIBRINOGEN -- -- 260 267 -- -- -- -- -- -- < > = values in this interval not displayed. Recent Labs 05/26/17 0400 05/25/17 1940 05/25/17 0348 05/24/17 0358 NA 142 -- 142 141 K 4.7 4.4 4.1 4.3 CL 106 -- 102 103 CO2 24 -- 25 25 BUN 14 -- 19* 18 CREATININE 0.65* -- 0.85 0.86 CALCIUM -- -- 9.0 9.4 ABG (Arterial Blood Gas) Lab Results Component Value Date pH Art 7.33 (L) 05/25/2017 pO2 Art 108 (H) 05/25/2017 pCO2 Art 43 05/25/2017 Assessment/Plan: POD #1 s/p mechanical AVR. Extubated last evening to nasal cannula and comfortableresp status overnight. Will resume heparin infusion - antiXa protocol. Will start coumadin today. Will maintain CTs. Metoprolol to be started. Neuro:frequent neuro exams, scheduled APAP, dilaudid prn pain CV:continue cardiac monitoring, start metoprolol 12.5mg BID Resp:4L NC, wean as tolerated, hourly IS, pulse oximetry, maintain CTs GI:sips, slow advancement, daily protonix, RBOs :veloz, strict I+O Renal:replete K+ as per protocol ID:[email or web address]-op cefuroxime Heme:daily ASA, start coumadin today with daily INR, start heparin infusion AntiXa protocol Endo:insulin infusion as per protocol Dispo:CVCC, full code DW Attending Surgeon on rounds. Signed: Verónica Straniero BEVERAGE HOST [facility] Section of Cardiac Surgery Date: 05/26/2017 * Tamara Ivey RCP - 05/25/2017 10:22 PM EST Patient received on ventilator, awake and ready for SBT. SBT performed and patient passed easily. ABG was 7.33/43/108. She was extubated without difficulty to nasal cannula. Patient was able to phonate. * Radha Lobo RT - 05/25/2017 3:17 PM EST AMV Protocol: No ARDS Protocol: No CTICU Protocol: Yes SBT Protocol: No Vent Settings: Servo I Ventilator Mode: SIMV Vol + PS Tidal Volume Set: 440 Resp Rate Set: 14 PEEP Set: 5 FiO2: 40 % PSV: 10 Ventilator Measurements: Resp: 14 Vt Exhaled: 441 PIP: 18 Vt Spontaneous: MAP: 9 Plateau Press: 16 Ve: 6.2 PEEP: 6 cmH20 SpO2: 100 % EtCO2: 43 mmHg Airway: 7.5 @ 23 cm at the Teeth. Skin Integrity: WDL Assessment / Events / Plan of the Day: I received Noah intubated and post-op from OR to ICU. She was placed on mechanical ventilation in the ICU in SIMV+Vol mode, settings: 440/14 PS 10 PEEP 5 FiO2 100%. Per Anesthesia, patient was easy intubation, and had a stable oxygenation and ventilation in the OR. CXR performed: ETT placement verified as terminating 5 cm above sharon per CXR read. Initial ABG @15:22 in SIMV+Vol 440/14 PS 10 PEEP 5 FiO2 100%: 7.42/38/470/24.1/-0.4 FiO2 weaned to 40% per protocol based on ABG. Awaiting patient to be rewarmed and weaned from sedation. PSBT will be conducted when appropriate per protocol. Plan to continue care per CTICU vent weaning protocol. * Bienvenido Wong MD - 05/25/2017 11:25 AM EST Images from the original note were not included. Inpatient Cardiology Progress Note Patient Name: Noah Dumont Service: WATCH AND CLOCK REPAIR CLERK / PA Responsible Attending: Bienvenido Wong MD Reason for continued hospitalization: For aortic valve replacement 2nd case today Transitioned from Coumadin to heparin due to APLAS (pre-AVR) Using anti Xa levels for IV heparin management ACT 175 when Anti Xa level is 0.38-communicated to Dr. Jeri Boston Active Problems: Active Hospital Problems Diagnosis ??? [address] Alegre with severe AI, SLE, and APLS admitted for conversion to heparin prior to AVR. Course c/b gross hematuria, CHARLES, cp, anxiety. ??? Chest pain-- normal cors by cath in 2004 and 2011 ??? Antiphospholipid antibody syndrome--- aPTT not useful to track heparin dosing, on warfarin ??? Dilated cardiomyopathy--- noted in 2003, improved ??? JAN on CPAP ??? Hyperlipemia ??? Systemic lupus erythematosus ??? Hypertension ??? Depression and anxiety ??? Gross hematuria--- while on heparin Resolved Hospital Problems Diagnosis Date Resolved No resolved problems to display. Interval History: Ativan was helpful last night. Crying this morning when discussing upcoming surgery. No chest pain or shortness of breath. Continues to have gross hematuria. Dr. Conner consented patient for surgery this morning. Review of Systems: Review of Systems Respiratory: Negative for shortness of breath. Cardiovascular: Negative for chest pain. Genitourinary: Positive for hematuria (no clots). Psychiatric/Behavioral: The patient is nervous/anxious (using ativan for anxiety about upcoming surgery). All other systems reviewed and are negative. Telemetry: HR: 60-140s sinus rhythm and sinus tachycardia with rare PVC, rare PJC Meds: Scheduled Meds: ??? [JUN Hold] hydroxychloroquine 200 mg Oral BID ??? [JUN Hold] levothyroxine 25 mcg Oral Daily ??? [JUN Hold] sodium chloride 0.9 % 5 mL Intravenous BID ??? [JUN Hold] sodium chloride 0.9 % 5 mL Intravenous Q12H ??? [JUN Hold] famotidine 20 mg Oral Daily ??? [JUN Hold] docusate sodium 100 mg Oral BID ??? [JUN Hold] atorvastatin 80 mg Oral QPM Continuous Infusions: ??? [JUN Hold] heparin 900 Units/hr (05/25/17 0915) PRN Meds:vancomycin, [JUN Hold] heparin (porcine), [JUN Hold] bismuth subsalicylate, [JUN Hold] sodium chloride 0.9 %, [JUN Hold] lidocaine, [JUN Hold] nitroGLYcerin, [JUN Hold] sodium chloride 0.9 %, [JUN Hold] acetaminophen, [JUN Hold] LORazepam, [JUN Hold] morphine Physical Exam: Vital Signs: Last value Range last 24 hrs Temperature Temp: 36.4 ??C (97.5 ??F) Temp: [36.3 ??C (97.3 ??F)-36.8 ??C (98.2 ??F)] Heart Rate Heart Rate: 66 Heart Rate: [66-80] Blood Pressure BP: (!) 123/26 BP: (94-125)/(26-55) Respiratory Rate Resp: 18 Resp: [18] SpO2 SpO2: 97 % SpO2: [97 %-98 %] Patient Vitals for the past 168 hrs: Weight 05/25/17 0548 71.5 kg (157 lb 10.1 oz) 05/24/17 0400 71.8 kg (158 lb 4.6 oz) 05/23/17 0435 72.2 kg (159 lb 2.8 oz) 05/22/17 0609 71.5 kg (157 lb 10.1 oz) 05/21/17 0618 71.8 kg (158 lb 4.6 oz) 05/20/17 0703 72 kg (158 lb 11.7 oz) 05/19/17 0532 71.4 kg (157 lb 6.5 oz) Intake/Output Summary (Last 24 hours) at 05/25/17 1125 Last data filed at 05/25/17 0947 Gross per 24 hour Intake 720 ml Output 2850 ml Net -2130 ml Physical Exam Constitutional: She is oriented to person, place, and time. She appears well- developed and well-nourished. No distress. HENT: Head: Normocephalic and atraumatic. Eyes: Right eye exhibits no discharge. Left eye exhibits no discharge. Neck: Normal range of motion. Neck supple. No JVD present. Cardiovascular: Normal rate, regular rhythm and intact distal pulses. Exam reveals no gallop and nofriction rub. Murmur heard. Systolic murmur is present with a grade of 3/6 Pulmonary/Chest: Effort normal and breath sounds normal. She has no rales. Abdominal: Soft. Bowel sounds are normal. She exhibits no distension. There is no tenderness. Musculoskeletal: Normal range of motion. She exhibits no edema. Neurological: She is alert and oriented to person, place, and time. Skin: Skin is warm and dry. She is not diaphoretic. Psychiatric: She has a normal mood and affect. Teary discussing surgery. Nursing note and vitals reviewed. Lab Comments: Recent Labs 05/25/178 05/24/17 0358 05/23/17 0050 WBC 5.8 6.4 7.5 HGB 12.4 12.5 12.4 HCT 35.8 35.0* 34.9* PLATELET 158 163 163 Recent Labs 05/23/17 0050 INR 1.2* Recent Labs 05/25/17 0348 05/24/17 0358 05/23/17 0050 NA 142 141 141 K 4.1 4.3 4.0 CL 102 103 102 CO2 25 25 26 BUN * 18 22* CREATININE 0.85 0.86 0.83 No results for input(s): AST, ALT, ALKPHOS, BILITOT, BILIDIR in the last 168 hours. Recent Labs 05/25/17 0348 05/24/17 0358 05/23/17 0050 CALCIUM 9.0 9.4 8.8 Recent Labs 05/18/17 1235 CK 71 TROPONINT <0.01 Pertinent Radiographic/Diagnostic Results: 05/18/2017 Echo 1. The left ventricle is moderately dilated. (ABRAHAN=6.7cm, ABRAHAN=5.2cm)There is normal global left ventricular systolic function. Ejection fraction is estimated to be 55%. There are no left ventricular segmental wall motion abnormalities. 2. Right ventricular chamber size, wall thickness, and systolic function are within normal limits. 3. The aortic valve appears bicuspid. The aortic valve leaflets are mildly thickened. 4. Severe (4+/4+) aortic valve regurgitation is present. There is flow reversal noted in the abdominal aorta Doppler signal. 5. The aortic root is normal in size. The ascending aorta is normal in size. 6. When compared with report dated 03/2012, the aortic insufficiency is now severe with ventriculardilation and decline in LV function. 7. See remainder of report for additional findings RHC, coronary angiography 05/20/17: Conclusions: * Normal coronary arteries Hemodynamics: Right Heart Pressures Hemodynamics: Syst Diast EDP a v m RA 10 5 4 RV 22 4 PA 16 4 10 PCW 7 5 3 Hemodynamic Profile: Profile 1 CO 4.55 CI 2.57 TPR 176 PVR 123 Technique Estimated Danielle Left Heart Pressures Resting: Syst Diast EDP a v m Ao 99 31 Assessment: Noah Dumont is a 47 y.o. female with known SLE, antiphospholipid antibody syndrome,severe aortic regurg who is admitted for transition from Coumadin to heparin. Patient awaiting CT surgery today. On IV heparin, having anti Xa levels checked. ACT was 175 when anti Xa was .38. Plan: 1. Chronic Aortic insufficiency CT surgery today with Dr. Conner Heparin infusion (today-05/25/17- changed heparin protocol to adult anti Xa anticoagulation protocol) 2. SLE Continue hydroxychloroquine 200 mg BID 3. Hypothyroidism TSH 3.47 On levothyroxine 25 mcg PO daily 4. HTN BP: (94-125)/(26-55) Stopped lisinopril for surgery today 5. Hyperlipidemia TC 197, HDL 45, LDL 145, Trig 72 Atorvastatin 80 mg nightly 6. Elevated pro-bnp/ADHF (acute valvular) Pro-bnp at 455 7. Severe aortic regurg Surgery today 8. Hematuria Followed by urology, outpatient workup will be done No clots, ok to use henrique Discussed with Bienvenido Wong MD Janette Stender, BEVERAGE HOST 05/25/2017 Cardiology Attending Note I interviewed and examined the patient during comprehensive bedside rounds. I personally reviewed the medications and laboratory results. Active Hospital Problems Diagnosis ??? [address] Alegre with severe AI, SLE, and APLS admitted for conversion to heparin prior to AVR. Course c/b gross hematuria, CHARLES, cp, anxiety. ??? Chest pain-- normal cors by cath in 2004 and 2011 ??? Antiphospholipid antibody syndrome--- aPTT not useful to track heparin dosing, on warfarin ??? Dilated cardiomyopathy--- noted in 2003, improved ??? JAN on CPAP ??? Hyperlipemia ??? Systemic lupus erythematosus ??? Hypertension ??? Depression and anxiety ??? Gross hematuria--- while on heparin Resolved Hospital Problems Diagnosis Date Resolved No resolved problems to display. Comment I agree with the findings noted above and participated in the assessment and plan. Did well overnight. No large clots. With manual reduction in heparin, anti Xa remained in mid therapeutic range at 0.44. ACT today was 175 simultaneous with anti Xa level of 0.38. Appreciate urology evaluation. OK for OR today. Discussed with Dr. Conner and Dr. Jeri Boston, anesthesiologist. Bienvenido Wong MD This patient meets or has met medical criteria to require an inpatient level of care, i.e. a minimum of two midnights in the hospital with multiple complex problems. * Ivis Rios RN - 05/25/2017 8:55 AM EST Orthostatics on Right Arm Sittin/26 (50) Standin/30 (55) Lyin/30 (51) * Shiva Payne - 05/25/2017 7:33 AM EST Urology Inpatient Consult Progress Note ID: Noah Dumont is a 47 y.o. female with PMH of CVA, lupus, anti- phospholipid antibody syndrome, and cardiomyopathy who is admitted to the Cardiology service with plans for AVR today (05/25/2017),with gross hematuria in setting of heparin infusion 24hr events: ?? Voiding well, emptying well ?? Urine racked overnight, remains dark cranberry color without clots ?? Hgb stable (12.5->12.4) O: Last value Range last 24hrs Temperature Temp: 36.5 ??C (97.7 ??F) Temp: [36.3 ??C (97.3 ??F)-36.8 ??C (98.2 ??F)] Heart Rate Heart Rate: 68 Heart Rate: [66-80] Blood Pressure BP: (!) 104/26 BP: (94-123)/(26-55) Respiratory Rate Resp: 18 Resp: [18] SpO2 SpO2: 98 % SpO2: [94 %-98 %] 05/24 0701 - 05/25 0700 In: 960 [P.O.:960] Out: 3400 [Urine:3400] Physical Exam: General: NAD, resting comfortably, pleasant, conversant HEENT: PERRL, anicteric sclerae CVS: nontachycardic Pulm: breathing comfortably on RA Abd: soft, nontender, non-distended : voiding spontaneously, cranberry red urine Skin/Ext: warm, dry, [id number] Neuro: CN II-XII grossly intact, nonfocal,moving all four extremities spontaneously Recent Labs 05/25/17 03405/24/17 1046 05/24/17 0358 05/23/17 1936 05/23/17 1333 05/23/17 0654 05/23/17 0050 WBC 5.8 -- 6.4 -- -- -- 7.5 HGB 12.4 -- 12.5 -- -- -- 12.4 HCT 35.8 -- 35.0* -- -- -- 34.9* PLATELET 158 -- 163 -- -- -- 163 PT -- -- -- -- -- -- 14.7* INR -- -- -- -- -- -- 1.2* PTT -- 107* 126* 122* 111* 126* 95* Recent Labs 05/25/17 03405/24/17 0358 05/23/17 0050 NA 142 141 141 K 4.1 4.3 4.0 CL 102 103 102 CO2 25 25 26 BUN 19* 18 22* CREATININE 0.85 0.86 0.83 GLUCOSE -- -- 101 CALCIUM 9.0 9.4 8.8 UA: +RBCs, Ucx not reflexed Assessment: Noah Dumont is a 47 y.o. female with her first episode of gross hematuria in the setting of anti-coagulation. We recommend allowing her to recover from her acute illness and then we will see her in clinic for a full hematuria work-up. I discussed all of this with her and I also discussed the full work-up which would include a urine culture, CT Urogram and office cystoscopy. ?? Recommendations - Continue to let patient void independently; OK to place veloz in OR today and then remove per primary team; voiding without Veloz is preferable (clots pass easier through urethra rather than a catheter) - Daily hemograms - urine culture (ordered by me today, if positive, treat with 7 days of abx) - we will see patient in urology clinic with a CT-urogram and cystoscopy, inbasket sent. Please call us if she starts passing clots larger than a quarter size or if she is unable to void. Thank you for this consult. We will sign off, please contact us with further questions. SHIVA PAYNE MD 05/25/2017 Associated attestation - Alvaro Siegel MD - 05/26/2017 12:29 PM EST I have seen the patient and reviewed the resident's above history and I agree with the details as written. The assessment and plan were formulated in discussion with me and I agree with them as documented. * Bienvenido Wong MD - 05/24/2017 3:43 PM EST Inpatient Cardiology Progress Note Patient Name: Noah Dumont Service: WATCH AND CLOCK REPAIR CLERK / PA Responsible Attending: Bienvenido Wong MD Reason for continued hospitalization: For aortic valve replacement Transitioned from Coumadin to heparin due to APLAS (pre-AVR) Active Problems: Active Hospital Problems Diagnosis ??? [address] Alegre with severe AI, SLE, and APLS admitted for conversion to heparin prior to AVR. Course c/b gross hematuria, CHARLES, cp, anxiety. ??? Chest pain-- normal cors by cath in 2004 and 2011 ??? Antiphospholipid antibody syndrome ??? Dilated cardiomyopathy, improved ??? JAN on CPAP ??? Hyperlipemia ??? Systemic lupus erythematosus ??? Hypertension ??? Depression and anxiety ??? Gross hematuria--- likely due to supratherapeutic heparin Resolved Hospital Problems Diagnosis Date Resolved No resolved problems to display. Interval History: No overnight issues, continues to have gross hematuria. Dr Conner from cardiac surgery team in. AVR planned for 05/25/2017 Review of Systems: Review of Systems Constitutional: Negative. Negative for fever. Patient states she feels anxious about her upcoming surgery. HENT: Negative. Eyes: Negative. Respiratory: Positive for chest tightness (exertional) and shortness of breath (exertional). Cardiovascular: Negative for chest pain. Gastrointestinal: Negative. Endocrine: Negative. Genitourinary: Positive for hematuria and menstrual problem (Amenorrhea >10 years post cervical ablation). Negative for dysuria, flank pain and frequency. Musculoskeletal: Negative. Skin: Negative. Allergic/Immunologic: Negative. Neurological: Negative. Hematological: Negative. Psychiatric/Behavioral: The patient is nervous/anxious. All other systems reviewed and are negative. Telemetry: HR: 59-81 bpm sinus rhythm and sinus tachycardia Meds: Scheduled Meds: ??? hydroxychloroquine 200 mg Oral BID ??? levothyroxine 25 mcg Oral Daily ??? lisinopril 5 mg Oral Daily ??? sodium chloride 0.9 % 5 mL Intravenous BID ??? sodium chloride 0.9 % 5 mL Intravenous Q12H ??? famotidine 20 mg Oral Daily ??? docusate sodium 100 mg Oral BID ??? atorvastatin 80 mg Oral QPM Continuous Infusions: ??? heparin 1,000 Units/hr (05/24/17 1441) PRN Meds:heparin (porcine), bismuth subsalicylate, sodium chloride 0.9 %, lidocaine, nitroGLYcerin,sodium chloride 0.9 %, acetaminophen, LORazepam, morphine Physical Exam: Vital Signs: Last value Range last 24 hrs Temperature Temp: 36.6 ??C (97.9 ??F) Temp: [36.5 ??C (97.7 ??F)-46.7 ??C (116.1 ??F)] Heart Rate Heart Rate: 69 Heart Rate: [66-80] Blood Pressure BP: (!) 123/36 BP: (104-127)/(27-36) Respiratory Rate Resp: 18 Resp: [18-20] SpO2 SpO2: 97 % SpO2: [91 %-97 %] Patient Vitals for the past 168 hrs: Weight 05/24/17 0400 71.8 kg (158 lb 4.6 oz) 05/23/17 0435 72.2 kg (159 lb 2.8 oz) 05/22/17 0609 71.5 kg (157 lb 10.1 oz) 05/21/17 0618 71.8 kg (158 lb 4.6 oz) 05/20/17 0703 72 kg (158 lb 11.7 oz) 05/19/17 0532 71.4 kg (157 lb 6.5 oz) 05/18/17 0532 71.4 kg (157 lb 6.5 oz) 05/17/17 2300 71.3 kg (157 lb 3 oz) Intake/Output Summary (Last 24 hours) at 05/24/17 1543 Last data filed at 05/24/17 1441 Gross per 24 hour Intake 1960 ml Output 3000 ml Net -1040 ml Physical Exam Constitutional: She is oriented to person, place, and time. She appears well- developed and well-nourished. No distress. HENT: Head: Normocephalic. Neck: Normal range of motion. No JVD present. Cardiovascular: Normal rate and intact distal pulses. Murmur heard. Systolic murmur is present with a grade of 3/6 Pulmonary/Chest: Effort normal and breath sounds normal. She has no rales. Abdominal: Soft. Bowel sounds are normal. She exhibits no distension. There is no tenderness. Musculoskeletal: Normal range of motion. Neurological: She is alert and oriented to person, place, and time. Skin: Skin is warm and dry. Psychiatric: She has a normal mood and affect. Nursing note and vitals reviewed. Lab Comments: Recent Labs 05/24/17 0358 05/23/17 0050 05/22/17 0546 WBC 6.4 7.5 8.0 HGB 12.5 12.4 13.0 HCT 35.0* 34.9* 36.4 PLATELET 163 163 168 Recent Labs 05/23/17 0050 INR 1.2* Recent Labs 05/24/17 0358 05/23/17 0050 05/22/17 0546 NA 141 141 143 K 4.3 4.0 4.5 CL 103 102 103 CO2 25 26 25 BUN 18 22* 18 CREATININE 0.86 0.83 0.90 Recent Labs 05/18/17 0036 AST 15 ALT 9 ALKPHOS 77 BILITOT 0.4 BILIDIR 0.1 Recent Labs 05/24/17 0358 05/23/17 0050 05/22/17 0546 05/18/17 0036 CALCIUM 9.4 8.8 8.9 < > 9.2 MAGNESIUM -- -- -- -- 0.73 PHOS -- -- -- -- 3.7 < > = values in this interval not displayed. Recent Labs 05/18/17 1235 05/18/17 0659 05/18/17 0036 CK 71 72 76 TROPONINT <0.01 <0.01 <0.01 Pertinent Radiographic/Diagnostic Results: 05/18/2017 Echo 1. The left ventricle is moderately dilated. (ABRAHAN=6.7cm, ABRAHAN=5.2cm)There is normal global left ventricular systolic function. Ejection fraction is estimated to be 55%. There are no left ventricular segmental wall motion abnormalities. 2. Right ventricular chamber size, wall thickness, and systolic function are within normal limits. 3. The aortic valve appears bicuspid. The aortic valve leaflets are mildly thickened. 4. Severe (4+/4+) aortic valve regurgitation is present. There is flow reversal noted in the abdominal aorta Doppler signal. 5. The aortic root is normal in size. The ascending aorta is normal in size. 6. When compared with report dated 03/2012, the aortic insufficiency is now severe with ventricular dilation and decline in LV function. 7. See remainder of report for additional findings [facility], coronary angiography 05/20/17: Conclusions: * Normal coronary arteries Hemodynamics: Right Heart Pressures Hemodynamics: Syst Diast EDP a v m RA 10 5 4 RV 22 4 PA 16 4 10 PCW 7 5 3 Hemodynamic Profile: Profile 1 CO 4.55 CI 2.57 TPR 176 PVR 123 Technique Estimated Danielle Left Heart Pressures Resting: Syst Diast EDP a v m Ao 99 31 EKG today, independently reviewed - NSR at 65 bpm, LVH, T-wave abnormality Assessment: Noah Dumont is a 47 y.o. female with known SLE, antiphospholipid antibody syndrome,severe aortic regurg who is admitted for transition from Coumadin to heparin. Patient to have cardiac catheterization and aortic valve replacement surgery. Patient went to the ED at an [place] due to chest discomfort and progressive shortness of breath and was transferred here [place] [facility] [place]. LHC completed and showed normal coronaries. Cardiac surgery consulted and planned for AVR this admission. Plan: 1. Chronic AI Cardiac monitoring Cardiac enzymes cycled (cycled) Cardiac cath - done (normal coronaries) Awaiting AVR 05/25/17 Daily ASA Heparin infusion (today-05/25/17- changed heparin protocol to adult anti Xa anticoagulation protocol) 2. SLE Continue hyroxychloroquine 200 mg BID 3. Hypothyroidism TSH 3.47 On levothyroxine 25 mcg PO daily 4. HTN On lisinopril 5 mg 5. Hyperlipidemia Atorvastatin 80 mg nightly 6. Elevated pro-bnp/ADHF (acute valvular) Pro-bnp @ 455 7. Severe aortic regurg Echo (results above) On ADRIA inhibitor For AVR Thursday with Dr Conner 8. Hematuria No sign of infection UA negative Monitor, likely secondary to heparin FULL CODE Discussed with attending, Dr Dominick Wong Cardiology Attending Note I interviewed and examined the patient during comprehensive bedside rounds. I personally reviewed the medications and laboratory results. Active Hospital Problems Diagnosis ??? [address] Alegre with severe AI, SLE, and APLS admitted for conversion to heparin prior to AVR. Course c/b gross hematuria, CHARLES, cp, anxiety. ??? Chest pain-- normal cors by cath in 2004 and 2011 ??? Antiphospholipid antibody syndrome--- aPTT not useful to track heparin dosing, on warfarin ??? Dilated cardiomyopathy, improved ??? JAN on CPAP ??? Hyperlipemia ??? Systemic lupus erythematosus ??? Hypertension ??? Depression and anxiety ??? Gross hematuria--- likely due to supratherapeutic heparin Resolved Hospital Problems Diagnosis Date Resolved No resolved problems to display. Comment I agree with the findings noted above and participated in the assessment and plan. Unfortunately, the hematology/thrombophilia note was not appreciated on admission and we have not been using the anti Xa protocol for heparin dosing. However, her anti-Xa level was in the therapeutic range (in the upper range) at 0.66. Hematuria discussed with Dr. Conner who requests urology consult but does not feel it will preclude surgery tomorrow. Will manually reduce heparin to 900 units/hr to aim closerto the center of the therapeutic range. Bienvenido Wong MD This patient meets or has met medical criteria to require an inpatient level of care, i.e. a minimum of two midnights in the hospital with multiple complex problems. * Bienvenido Wong MD - 05/23/2017 1:22 PM EST Inpatient Cardiology Progress Note Patient Name: Noah Dumont Service: WATCH AND CLOCK REPAIR CLERK / PA Responsible Attending: Bienvenido Wong MD Reason for continued hospitalization: Awaiting AVR Transitioned from Coumadin to heparin due to APLAS (pre-AVR) Active Problems: Active Hospital Problems Diagnosis ??? [address] Alegre admitted for conversion to heparin prior to AVR for AI. Has APL syndrome and anxiety. ??? Chest pain-- normal cors by cath in 2004 and 2011 ??? Antiphospholipid antibody syndrome ??? Dilated cardiomyopathy, improved ??? JAN on CPAP ??? Hyperlipemia ??? Systemic lupus erythematosus ??? Hypertension ??? Depression and anxiety ??? Gross hematuria--- likely due to supratherapeutic heparin Resolved Hospital Problems Diagnosis Date Resolved No resolved problems to display. Interval History: No chest pain or shortness of breath at rest, + SOB with exertion and intermittent chest pressure. C/o hematuria overnight, no pain, dysuria, oliguria, frequency. PTTs high and heparin bolus held last evening, rate adjusted accordingly. For RHC and coronary angiography 05/20/17 - normal cors. For AVR with Dr Conner on Thursday. Review of Systems: Review of Systems Constitutional: Negative. Patient states she feels anxious about her upcoming surgery. HENT: Negative. Eyes: Negative. Respiratory: Positive for chest tightness (exertional) and shortness of breath (exertional). Cardiovascular: Negative for chest pain. Gastrointestinal: Negative. Endocrine: Negative. Genitourinary: Positive for hematuria and menstrual problem (No period in 18 years). Negative for dysuria, flank pain and frequency. Musculoskeletal: Negative. Skin: Negative. Allergic/Immunologic: Negative. Neurological: Negative. Hematological: Negative. Psychiatric/Behavioral: Negative. Telemetry: HR: 59-81 bpm sinus rhythm and sinus tachycardia Meds: Scheduled Meds: ??? hydroxychloroquine 200 mg Oral BID ??? levothyroxine 25 mcg Oral Daily ??? lisinopril 5 mg Oral Daily ??? sodium chloride 0.9 % 5 mL Intravenous BID ??? sodium chloride 0.9 % 5 mL Intravenous Q12H ??? famotidine 20 mg Oral Daily ??? docusate sodium 100 mg Oral BID ??? atorvastatin 80 mg Oral QPM ??? aspirin 81 mg Oral Daily Continuous Infusions: ??? heparin (porcine) 1,100 Units/hr (05/23/17 0739) PRN Meds:bismuth subsalicylate, heparin (porcine) AND heparin (porcine), sodium chloride 0.9 %,lidocaine, nitroGLYcerin, sodium chloride 0.9 %, acetaminophen, LORazepam, morphine Physical Exam: Vital Signs: Last value Range last 24 hrs Temperature Temp: (!) 46.7 ??C (116.1 ??F) Temp: [36.3 ??C (97.3 ??F)-46.7 ??C (116.1 ??F)] Heart Rate Heart Rate: 70 Heart Rate: [66-77] Blood Pressure BP: (!) 111/29 BP: (102-123)/(27-44) Respiratory Rate Resp: 18 Resp: [18-20] SpO2 SpO2: 94 % SpO2: [94 %-98 %] Patient Vitals for the past 168 hrs: Weight 05/23/17 0435 72.2 kg (159 lb 2.8 oz) 05/22/17 0609 71.5 kg (157 lb 10.1 oz) 05/21/17 0618 71.8 kg (158 lb 4.6 oz) 05/20/17 0703 72 kg (158 lb 11.7 oz) 05/19/17 0532 71.4 kg (157 lb 6.5 oz) 05/18/17 0532 71.4 kg (157 lb 6.5 oz) 05/17/17 2300 71.3 kg (157 lb 3 oz) Intake/Output Summary (Last 24 hours) at 05/23/172011 Last data filed at 05/23/17 1830 Gross per 24 hour Intake 820 ml Output 2200 ml Net -1380 ml Physical Exam Constitutional: She is oriented to person, place, and time. She appears well-developed. HENT: Head: Normocephalic. Neck: Normal range of motion. Cardiovascular: Normal rate and intact distal pulses. Murmur heard. Systolic murmur is present with a grade of 2/6 Diastolic murmur is present with a grade of 3/6 Pulmonary/Chest: Effort normal and breath sounds normal. Abdominal: Soft. Bowel sounds are normal. Musculoskeletal: Normal range of motion. Neurological: She is alert and oriented to person, place, and time. Skin: Skin is warm and dry. Psychiatric: She has a normal mood and affect. Vitals reviewed. Lab Comments: Recent Labs 05/23/17 0050 05/22/17 0546 05/21/17 0353 WBC 7.5 8.0 5.5 HGB 12.4 13.0 13.5 HCT 34.9* 36.4 38.2 PLATELET 163 168 167 Recent Labs 05/23/17 0050 INR 1.2* Recent Labs 05/23/17 0050 05/22/17 0546 05/21/17 0353 NA 141 143 140 K 4.0 4.5 4.3 CL 102 103 102 CO2 26 25 26 BUN 22* 18 19* CREATININE 0.83 0.90 0.75 Recent Labs 05/18/17 0036 AST 15 ALT 9 ALKPHOS 77 BILITOT 0.4 BILIDIR 0.1 Recent Labs 05/23/17 0050 05/22/17 0546 05/21/17 0353 05/18/17 0036 CALCIUM 8.8 8.9 9.1 < > 9.2 MAGNESIUM -- -- -- -- 0.73 PHOS -- -- -- -- 3.7 < > = values in this interval not displayed. Recent Labs 05/18/17 1235 05/18/17 0659 05/18/17 0036 CK 71 72 76 TROPONINT <0.01 <0.01 <0.01 Pertinent Radiographic/Diagnostic Results: 05/18/2017 Echo 1. The left ventricle is moderately dilated. (ABRAHAN=6.7cm, ABRAHAN=5.2cm)There is normal global left ventricular systolic function. Ejection fraction is estimated to be 55%. There are no left ventricular segmental wall motion abnormalities. 2. Right ventricular chamber size, wall thickness, and systolic function are within normal limits. 3. The aortic valve appears bicuspid. The aortic valve leaflets are mildly thickened. 4. Severe (4+/4+) aortic valve regurgitation is present. There is flow reversal noted in the abdominal aorta Doppler signal. 5. The aortic root is normal in size. The ascending aorta is normal in size. 6. When compared with report dated 03/2012, the aortic insufficiency is now severe with ventricular dilation and decline in LV function. 7. See remainder of report for additional findings [facility], coronary angiography 05/20/17: Conclusions: * Normal coronary arteries Hemodynamics: Right Heart Pressures Hemodynamics: Syst Diast EDP a v m RA 10 5 4 RV 22 4 PA 16 4 10 PCW 7 5 3 Hemodynamic Profile: Profile 1 CO 4.55 CI 2.57 TPR 176 PVR 123 Technique Estimated Danielle Left Heart Pressures Resting: Syst Diast EDP a v m Ao 99 31 EKG today, independently reviewed - NSR at 65 bpm, LVH, T-wave abnormality Assessment: Noah Dumont is a 47 y.o. female with known SLE, antiphospholipid antibody syndrome,severe aortic regurg who is admitted for transition from Coumadin to heparin, cardiac cath and aortic valve surgery, expedited due to chest discomfort and progressive shortness of breath. Cath showing normal cors. Cardiac surgery consulted, AVR this admission. Plan: 1. Worsening chest pain/SOB in setting of severe aortic regurg Admitted to tele Enzymes cycled- normal Cardiac cath - normal cors No significant discomfort Awaiting AVR 05/25/17 2. SLE On hyroxychloroquine 200 mg bid 3. Hypothyroidism TSH 3.47 On levothyroxine 25 mcg 4. HTN Monitor trends BP: (111-123)/(29-41) On lisinopril 5 mg 5. Hyperlipidemia Atorvastatin 80 mg nightly Results for NOAH DUMONT ( ) as of 05/18/2017 07:15 Ref. Range 05/18/2017 00:36 Chol, Total Latest Units: mg/dL 197 HDL Latest Units: mg/dL 45 Chol/HDL Ratio Latest Units: ratio 4.4 Triglycerides Latest Units: mg/dL 72 LDL Cholesterol Latest Units: mg/dL 138 LDL Chol Direct Latest Units: mg/dL 145 6. Elevated pro-bnp. ADHF (acute valvular) Pro-bnp @ 455 Euvolemic on exam today Hypotensive with PCW 3, given IV fluids in laboratory aide 7. Severe aortic regurg Echo (results above) On ADRIA inhibitor For AVR Thursday with Dr Conner 8. Hematuria No sign of infection u/a negative No pain Monitor, likely secondary to heparin FULL CODE This patient was discussed with Bienvenido Wong MD. Halle Delaney PA-C 05/23/2017 Cardiology Attending Note I interviewed and examined the patient during comprehensive bedside rounds. I personally reviewed the medications and laboratory results. Active Hospital Problems Diagnosis ??? [address] Alegre admitted for conversion to heparin prior to AVR for AI. Has APL syndrome and anxiety. ??? Chest pain-- normal cors by cath in 2004 and 2011 ??? Antiphospholipid antibody syndrome ??? Dilated cardiomyopathy, improved ??? JAN on CPAP ??? Hyperlipemia ??? Systemic lupus erythematosus ??? Hypertension ??? Depression and anxiety ??? Gross hematuria--- likely due to supratherapeutic heparin Resolved Hospital Problems Diagnosis Date Resolved No resolved problems to display. Comment I agree with the findings noted above and participated in the assessment and plan. Anxiety better. No evidence of UTI. Heparin dose reduced. Awaiting AVR. Bienvenido Wong MD This patient meets or has met medical criteria to require an inpatient level of care, i.e. a minimum of two midnights in the hospital with multiple complex problems. * Bienvenido Wong MD - 05/22/2017 7:06 AM EST Images from the original note were not included. Inpatient Cardiology Progress Note Patient Name: Noah Dumont Service: WATCH AND CLOCK REPAIR CLERK / PA Responsible Attending: Bienvenido Wong MD Reason for continued hospitalization: Awaiting AVR Transitioned from Coumadin to heparin due to APLAS (pre-AVR) Active Problems: Active Hospital Problems Diagnosis ? ? AI due to bicuspid aortic valve/ awaiting AVR/warfarin>heparin due to APLS Severe AI 2+ -->4+ Widened pulse pressure [...] 2004 and 2011 Cardiac catheterization 04/01/12: RAP-13 PAP-/17/, PCWP-13, CO/CI-4.12/2.23; LVEF 60% infero-apical akinesis, inferior hypokinesis, normal R dominant coronary arteries. Near equalization of diastolic R&Lp ressures- cannot rule out mild constrictive pericardial physiology. Cardiac catheterization 07/16/04: RAP-1 PAP-18/5/10, PCWP- 2, CO/CI-4.13/2.40; LVEF 33% globa lhyopokinesis, christen coronary arteries ??? Antiphospholipid antibody syndrome On chronic coumadin By hx, has required Lovenox bridge for procedures History transient ischemic attacks, CVA, miscarriages, migraine headaches, and thrombocytopenia, ??? Dilated cardiomyopathy, improved Dx; 2003-, EF = 30%, ?due [...] 60%, no RWMA Cardiac catheterization 07/16/04: RAP-1 PAP-18/08/13, PCWP- 2, CO/CI-4.13/2.40; LVEF 33% globa lhyopokinesis, [...] rituxan 04/14/08 and 05/01/08; 04/15 ??? Hypertension Resolved Hospital Problems Diagnosis Date Resolved No resolved problems to display. Interval History: No chest pain or shortness of breath at rest, + SOB with exertion and intermittent chest pressure. Abdominal discomfort last night, resolved this morning. No bowel movement. Fonda crampy. No unusual food consumption. Pepto-Bismol given. For RHC and coronary angiography 05/20/17 - nor mal cors. For AVR with Dr Conner on Thursday. Review of Systems: Review of Systems Constitutional: Negative. Patient states she feels anxious about her upcoming surgery. HENT: Negative. Eyes: Negative. Respiratory: Positive for chest tightness (exertional) and shortness of breath (exertional). Cardiovascular: Negative for chest pain. Gastrointestinal: Negative. Endocrine: Negative. Genitourinary: Negative. Musculoskeletal: Negative. Skin: Negative. Allergic/Immunologic: Negative. Neurological: Negative. Hematological: Negative. Psychiatric/Behavioral: Negative. Telemetry: HR: 59-81 bpm sinus rhythm and sinus tachycardia Meds: Scheduled Meds: ??? hydroxychloroquine 200 mg Oral BID ??? levothyroxine 25 mcg Oral Daily ??? lisinopril 5 mg Oral Daily ??? sodium chloride 0.9 % 5 mL Intravenous BID ??? sodium chloride 0.9 % 5 mL Intravenous Q12H ??? famotidine 20 mg Oral Daily ??? docusate sodium 100 mg Oral BID ??? atorvastatin 80 mg Oral QPM ??? aspirin 81 mg Oral Daily Continuous Infusions: ??? heparin (porcine) 1,000 Units/hr (05/22/17 0650) PRN Meds:bismuth subsalicylate, heparin (porcine) AND heparin (porcine), sodium chloride 0.9 %,lidocaine, nitroGLYcerin, sodium chloride 0.9 %, acetaminophen, LORazepam, morphine Physical Exam: Vital Signs: Last value Range last 24 hrs Temperature Temp: 36.4 ??C (97.5 ??F) Temp: [36.4 ??C (97.5 ??F)-37.5 ??C (99.5 ??F)] Heart Rate Heart Rate: 66 Heart Rate: [66-75] Blood Pressure BP: (!) 110/36 (RN is aware) BP: (102-125)/(30-45) Respiratory Rate Resp: 18 Resp: [16-18] SpO2 SpO2: 97 % SpO2: [95 %-98 %] Patient Vitals for the past 168 hrs: Weight 05/22/17 0609 71.5 kg (157 lb 10.1 oz) 05/21/17 0618 71.8 kg (158 lb 4.6 oz) 05/20/17 0703 72 kg (158 lb 11.7 oz) 05/19/17 0532 71.4 kg (157 lb 6.5 oz) 05/18/17 0532 71.4 kg (157 lb 6.5 oz) 05/17/17 2300 71.3 kg (157 lb 3 oz) Intake/Output Summary (Last 24 hours) at 05/22/17 0706 Last data filed at 05/22/17 0609 Gross per 24 hour Intake 500 ml Output 1960 ml Net -1460 ml Physical Exam Constitutional: She is oriented to person, place, and time. She appears well-developed. HENT: Head: Normocephalic. Neck: Normal range of motion. Cardiovascular: Normal rate and intact distal pulses. Murmur heard. Systolic murmur is present with a grade of 2/6 Diastolic murmur is present with a grade of 3/6 Pulmonary/Chest: Effort normal and breath sounds normal. Abdominal: Soft. Bowel sounds are normal. Musculoskeletal: Normal range of motion. Neurological: She is alert and oriented to person, place, and time. Skin: Skin is warm and dry. Psychiatric: She has a normal mood and affect. Vitals reviewed. Lab Comments: Recent Labs 05/22/17 0546 05/21/17 0353 05/20/17 0513 WBC 8.0 5.5 6.0 HGB 13.0 13.5 14.1 HCT 36.4 38.2 40.3 PLATELET 168 167 180 Recent Labs 05/22/17 0546 INR 1.2* Recent Labs 05/22/17 0546 05/21/17 0353 05/20/17 0513 NA 143 140 141 K 4.5 4.3 4.1 CL 103 102 100 CO2 25 26 27 BUN 18 19* 22* CREATININE 0.90 0.75 1.00 Recent Labs 05/18/17 0036 AST 15 ALT 9 ALKPHOS 77 BILITOT 0.4 BILIDIR 0.1 Recent Labs 05/22/17 0546 05/21/17 0353 05/20/17 0513 05/18/17 0036 CALCIUM 8.9 9.1 9.7 < > 9.2 MAGNESIUM -- -- -- -- 0.73 PHOS -- -- -- -- 3.7 < > = values in this interval not displayed. Recent Labs 05/18/17 1235 05/18/17 0659 05/18/17 0036 CK 71 72 76 TROPONINT <0.01 <0.01 <0.01 Pertinent Radiographic/Diagnostic Results: 05/18/2017 Echo 1. The left ventricle is moderately dilated. (ABRAHAN=6.7cm, ABRAHAN=5.2cm)There is normal global left ventricular systolic function. Ejection fraction is estimated to be 55%. There are no left ventricular segmental wall motion abnormalities. 2. Right ventricular chamber size, wall thickness, and systolic function are within normal limits. 3. The aortic valve appears bicuspid. The aortic valve leaflets are mildly thickened. 4. Severe (4+/4+) aortic valve regurgitation is present. There is flow reversal noted in the abdominal aorta Doppler signal. 5. The aortic root is normal in size. The ascending aorta is normal in size. 6. When compared with report dated 03/2012, the aortic insufficiency is now severe with ventricular dilation and decline in LV function. 7. See remainder of report for additional findings RHC, coronary angiography 05/20/17: Conclusions: * Normal coronary arteries Hemodynamics: Right Heart Pressures Hemodynamics: Syst Diast EDP a v m RA 10 5 4 RV 22 4 PA 16 4 10 PCW 7 5 3 Hemodynamic Profile: Profile 1 CO 4.55 CI 2.57 TPR 176 PVR 123 Technique Estimated Danielle Left Heart Pressures Resting: Syst Diast EDP a v m Ao 99 31 EKG today, independently reviewed - NSR at 65 bpm, LVH, T-wave abnormality Assessment: Noah Dumont is a 47 y.o. female with known SLE, antiphospholipid antibody syndrome,severe aortic regurg who is admitted for transition from Coumadin to heparin, cardiac cath and aortic valve surgery, expedited due to chest discomfort and progressive shortness of breath. Cath showing normal cors. Cardiac surgery consulted, AVR this admission. Plan: 1. Worsening chest pain/SOB in setting of severe aortic regurg Admitted to tele Enzymes cycled Cardiac cath - normal cors 2. SLE On hyroxychloroquine 200 mg bid 3. Hypothyroidism TSH 3.47 On levothyroxine 25 mcg 4. HTN Monitor trends BP: (102-110)/(30-36) On lisinopril 5 mg 5. Hyperlipidemia Atorvastatin 80 mg nightly Results for NOAH DUMONT ( ) as of 05/18/2017 07:15 Ref. Range 05/18/2017 00:36 Chol, Total Latest Units: mg/dL 197 HDL Latest Units: mg/dL 45 Chol/HDL Ratio Latest Units: ratio 4.4 Triglycerides Latest Units: mg/dL 72 LDL Cholesterol Latest Units: mg/dL 138 LDL Chol Direct Latest Units: mg/dL 145 6. Elevated pro-bnp. ADHF (acute valvular) Pro-bnp @ 455 Euvolemic on exam today Hypotensive with PCW 3, given IV fluids in laboratory aide 7. Severe aortic regurg Echo (results above) On ADRIA inhibitor For AVR Thursday with Dr Conner FULL CODE This patient was discussed with Bienvenido Wong MD. Vikki Barron PA-C 05/22/2017 Cardiology Attending Note I interviewed and examined the patient during comprehensive bedside rounds. I personally reviewed the medications and laboratory results. Active Hospital Problems Diagnosis ??? [address] Alegre admitted for conversion to heparin prior to AVR for AI. Has APL syndrome and anxiety. ??? Chest pain-- normal cors by cath in 2004 and 2011 ??? Antiphospholipid antibody syndrome ??? Dilated cardiomyopathy, improved ??? JAN on CPAP ??? Hyperlipemia ??? Systemic lupus erythematosus ??? Hypertension ??? Depression and anxiety Resolved Hospital Problems Diagnosis Date Resolved No resolved problems to display. Comment I agree with the findings noted above and participated in the assessment and plan. Complains of headache and chest discomfort. Teary. Anxious. Will try lorazepam and tylenol. Ambulating and awaiting AVR. iBenvenido Wong MD This patient meets or has met medical criteria to require an inpatient level of care, i.e. a minimum of two midnights in the hospital with multiple complex problems. * Teetee Helm Bere - 05/21/2017 12:22 PM EST [employer] Screen Watcher Encounter Note Patient Name: Noah Dumont : [id number] MR#: [id number] Admit Date: 05/17/2017 10:57 PM Hospital Day 4 days Narrative: Noah's surgery has been postponed until Thursday (05/25). She had a cardiac cath through her arm yesterday and told me about that experience which was painful for her. She has been here about week. Noah is from [facility] and her , Cale, has been able to visit a few times although finding transportation can be difficult. Cale works at [employer] in [facility] and Noah is concerned about him missing too much work and not earning money while he is here and not working. She has support fromher parents, in [facility] and a sister in [place] with whom she talks on the phone. She didn't mention if her children, a son and daughter, have visited. They are in their late teens, early 20s. 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 Her boss there, Angelito, has been here to visit Noah twice, and pray with her. Assessment: Noah is nervous about her upcoming surgery, but also believes she will feel much better after the surgery and recovery. She anticipates being her for 9 days after the surgery and then going home with home health support. Finances are a concern for Noah and Cale, so Noah worries about that as well. She believes her health issues, and the postponement of her surgery happen for a reason. She feels well support by Angelito and his ministry in [place]. She is soothing herself with writing in a journal, word searches and tv. She enjoyed a visit from the art therapy volunteer. Intervention and Outcome: Supportive listening, assurance of support Follow-up: I will visit Noah on Thursday if she is allowed visitors after her surgery. Time in Direct Care: 30 Teetee Helm 05/21/2017 * Jeff Hernadez MD - 05/21/2017 8:16 AM EST Images from the original note were not included. 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 Aortic insufficiency due to bicuspid aortic valve Severe AI 2+ -->4+ Widened pulse pressure Dilated LV ABRAHNA/ESD 6.7/ 5.3 cm EF=55% New dyspnea R/L cardiac cath 05/20/17- Normal coronary arteries Hemodynamics: Syst Diast EDP a v m RA 10 5 4 RV 22 4 PA 16 4 10 PCW 7 5 3 ? Ao 99/31 mmHg Hemodynamic Profile: Profile 1 CO 4.55 CI 2.57 ??? Chest pain Cardiac catheterization 04/01/12: RAP-13 PAP-30/17/23, PCWP-13, CO/CI-4.12/2.23; LVEF 60% infero-apical akinesis, inferior hypokinesis, normal R dominant coronary arteries. Near equalization of diastolic R&Lp ressures- cannot rule out mild constrictive pericardial physiology. Cardiac catheterization 07/16/04: RAP-1 PAP-18/5/10, PCWP- 2, CO/CI-4.13/2.40; LVEF 33% globa lhyopokinesis, christen coronary arteries ??? Antiphospholipid antibody syndrome On chronic coumadin By hx, has required Lovenox bridge for procedures History transient ischemic attacks, CVA, miscarriages, migraine headaches, and thrombocytopenia, ??? Dilated cardiomyopathy, improved Dx; 2003-, EF = 30%, ?due [...] hypokinesis at cath 04/01/12: Recovered LVEF ??? FATIMA (dyspnea on exertion) ??? JAN on CPAP ??? Hyperlipemia ??? SLE (systemic lupus erythematosus) On plaquinil since Systemic lupus erythematosus with discoid rash, arthritis, oral and nasal ulcers, pleuro pericarditis, Raynaud's phenomena treated with cyclophosamide, steroids and rituximab. rituxan 05/14 with CD 1936 in 12/12; rituxan 04/14/08 and 05/01/08; 04/15 ??? Hypertension Resolved Hospital Problems Diagnosis Date Resolved No resolved problems to display. Interval History: No chest pain or shortness of breath. For RHC and coronary angiography this morning. Net negative 1.6 L yesterday. Review of Systems: Review of Systems Constitutional: Negative. Patient states she feels anxious not about the cardiac cath but about her upcoming surgery. HENT: Negative. Eyes: Negative. Respiratory: Positive for chest tightness (exertional) and shortness of breath (exertional). Cardiovascular: Negative for chest pain. Gastrointestinal: Negative. Endocrine: Negative. Genitourinary: Negative. Musculoskeletal: Negative. Skin: Negative. Allergic/Immunologic: Negative. Neurological: Negative. Hematological: Negative. Psychiatric/Behavioral: Negative. Telemetry: HR: 62-98 bpm sinus rhythm Meds: Scheduled Meds: ??? hydroxychloroquine 200 mg Oral BID ??? levothyroxine 25 mcg Oral Daily ??? lisinopril 5 mg Oral Daily ??? sodium chloride 0.9 % 5 mL Intravenous BID ??? sodium chloride 0.9 % 5 mL Intravenous Q12H ??? famotidine 20 mg Oral Daily ??? docusate sodium 100 mg Oral BID ??? atorvastatin 80 mg Oral QPM ??? aspirin 81 mg Oral Daily Continuous Infusions: ??? heparin (porcine) 850 Units/hr (05/21/17 0600) PRN Meds:heparin (porcine) AND heparin (porcine), sodium chloride 0.9 %, lidocaine, nitroGLYcerin, sodium chloride 0.9 %, acetaminophen, LORazepam, morphine Physical Exam: Vital Signs: Last value Range last 24 hrs Temperature Temp: 36.3 ??C (97.3 ??F) Temp: [36.3 ??C (97.3 ??F)-36.7 ??C (98.1 ??F)] Heart Rate Heart Rate: 64 Heart Rate: [59-81] Blood Pressure BP: (!) 107/36 BP: (96-116)/(28-45) Respiratory Rate Resp: 18 Resp: [15-20] SpO2 SpO2: 98 % SpO2: [91 %-98 %] Patient Vitals for the past 168 hrs: Weight 05/21/17 0618 71.8 kg (158 lb 4.6 oz) 05/20/17 0703 72 kg (158 lb 11.7 oz) 05/19/17 0532 71.4 kg (157 lb 6.5 oz) 05/18/17 0532 71.4 kg (157 lb 6.5 oz) 05/17/17 2300 71.3 kg (157 lb 3 oz) Intake/Output Summary (Last 24 hours) at 05/21/17 0816 Last data filed at 05/21/17 0600 Gross per 24 hour Intake 1196 ml Output 1550 ml Net -354 ml Physical Exam Constitutional: She is oriented to person, place, and time. She appears well-developed. HENT: Head: Normocephalic. Neck: Normal range of motion. Cardiovascular: Normal rate and intact distal pulses. Murmur heard. Systolic murmur is present with a grade of 2/6 Diastolic murmur is present with a grade of 3/6 Pulmonary/Chest: Effort normal and breath sounds normal. Abdominal: Soft. Bowel sounds are normal. Musculoskeletal: Normal range of motion. Neurological: She is alert and oriented to person, place, and time. Skin: Skin is warm and dry. Psychiatric: She has a normal mood and affect. Vitals reviewed. Lab Comments: Recent Labs 05/21/17 0353 05/20/17 0513 05/19/17 0535 WBC 5.5 6.0 5.6 HGB 13.5 14.1 14.8 HCT 38.2 40.3 41.8 PLATELET 167 180 165 Recent Labs 05/21/17 0353 INR 1.4* Recent Labs 05/21/17 0353 05/20/17 0513 05/19/17 0535 NA 140 141 143 K 4.3 4.1 4.5 CL 102 100 102 CO2 26 27 28 BUN 19* 22* 18 CREATININE 0.75 1.00 0.83 Recent Labs 05/18/17 0036 AST 15 ALT 9 ALKPHOS 77 BILITOT 0.4 BILIDIR 0.1 Recent Labs 05/21/17 0353 05/20/17 0513 05/19/17 0535 05/18/17 0036 CALCIUM 9.1 9.7 9.7 < > 9.2 MAGNESIUM -- -- -- -- 0.73 PHOS -- -- -- -- 3.7 < > = values in this interval not displayed. Recent Labs 05/18/17 1235 05/18/17 0659 05/18/17 0036 CK 71 72 76 TROPONINT <0.01 <0.01 <0.01 Pertinent Radiographic/Diagnostic Results: ?? 05/18/2017 Echo 1. The left ventricle is moderately dilated. (ABRAHAN=6.7cm, ABRAHAN=5.2cm)There is normal global left ventricular systolic function. Ejection fraction is estimated to be 55%. There are no left ventricular segmental wall motion abnormalities. 2. Right ventricular chamber size, wall thickness, and systolic function are within normal limits. 3. The aortic valve appears bicuspid. The aortic valve leaflets are mildly thickened. 4. Severe (4+/4+) aortic valve regurgitation is present. There is flow reversal noted in the abdominal aorta Doppler signal. 5. The aortic root is normal in size. The ascending aorta is normal in size. 6. When compared with report dated 03/2012, the aortic insufficiency is now severe with ventricular dilation and decline in LV function. 7. See remainder of report for additional findings Assessment: Noah Dumont is a 47 y.o. female with known SLE, antiphospholipid antibody syndrome,severe aortic regurg who is admitted for transition from Coumadin to heparin. She has been seen in consult by Cardiac Surgery. For RHC and coronary angiography today. Plan: 1. Worsening chest pain/SOB in setting of severe aortic regurg Admitted to tele Enzymes cycled For cardiac cath when INR <2.0, INR today 1.7 2. SLE On hyroxychloroquine 200 mg bid 3. Hypothyroidism TSH 3.47 On levothyroxine 25 mcg 4. HTN Monitor trends BP: (107)/(29-36) On lisinopril 5 mg 5. Hyperlipidemia Atorvastatin 80 mg nightly Results for NOAH DUMONT ( ) as of 05/18/2017 07:15 Ref. Range 05/18/2017 00:36 Chol, Total Latest Units: mg/dL 197 HDL Latest Units: mg/dL 45 Chol/HDL Ratio Latest Units: ratio 4.4 Triglycerides Latest Units: mg/dL 72 LDL Cholesterol Latest Units: mg/dL 138 LDL Chol Direct Latest Units: mg/dL 145 6. Elevated pro-bnp. ADHF (acute valvular) Pro-bnp @ 455 Needs R & L heart cath Euvolemic on exam today, will wait for RHC to further assess status 7. Aortic regurg Echo (results above) No beta montse as we do not wish to cause bradycardia On ADRIA inhibitor FULL CODE This patient was discussed with Jeff Hernadez MD. Vikki Barron PA-C 05/21/2017 CARDIOLOGY ATTENDING NOTE Patient: Noah Dumont Date of Service: 05/21/2017 Date of Admission: 05/17/2017 Length of Stay Hospital Day 4 days Please see the above note by JANET De Souza, for details. I have interviewed and examined the patient independently and I concur with the assessment and plan. The case was discussed on cardiologyrounds and we reviewed the plan of care with the team and patient. Although anxious, she is feelinga little better. Cath revealed normal coronary arteries, and low filling and PA pressures. With herbicuspid aortic valve, aortic root and ascending aorta dimensions are normal, with no clinical suspicion for coarctation. CT surgery is aware for AVR on this admission. Active Hospital Problems Diagnosis ??? Aortic insufficiency due to bicuspid aortic valve ??? Chest pain ??? Antiphospholipid antibody syndrome ??? Dilated cardiomyopathy, improved ??? FATIMA (dyspnea on exertion) ??? JAN on CPAP ??? Hyperlipemia ??? SLE (systemic lupus erythematosus) ??? Hypertension Resolved Hospital Problems Diagnosis Date Resolved No resolved problems to display. EJFF HERNADEZ MD Pager [phone] * Vikki Barron PA - 05/21/2017 7:23 AM EST Images from the original note were not included. 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 Aortic insufficiency due to bicuspid aortic valve Severe AI 2+ -->4+ Widened pulse pressure Dilated LV ABRAHAN/ESD 6.7/ 5.3 cm EF=55% New dyspnea ??? Chest pain Cardiac catheterization 04/01/12: RAP-13 PAP-//, PCWP-13, CO/CI-4.12/2.23; LVEF 60% infero-apical akinesis, inferior hypokinesis, normal R dominant coronary arteries. Near equalization of diastolic R&Lp ressures- cannot rule out mild constrictive pericardial physiology. Cardiac catheterization 07/16/04: RAP-1 PAP-21/08/09, PCWP- 2, CO/CI-4.13/2.40; LVEF 33% globa lhyopokinesis, christen coronary arteries ??? Antiphospholipid antibody syndrome On chronic coumadin By hx, has required Lovenox bridge for procedures History transient ischemic attacks, CVA, miscarriages, migraine headaches, and thrombocytopenia, ??? Dilated cardiomyopathy, improved Dx; 2003-, EF = 30%, ?due [...] 60%, no RWMA Cardiac catheterization 07/16/04: RAP-1 PAP-18/08/13, PCWP- 2, CO/CI-4.13/2.40; LVEF 33% globa lhyopokinesis, normal coronary arteries, nl endomyocardial biopsy Echocardiography 10/13/06: LVEF 60%, nl RV, +1 AR, Echocardiography 10/28/07: LVEF 65%, no RWMA, nl RV, Echocardiography 10/30/08: LVEF 65%, no RWMA, nl RV, +1 AR, PASP 24 mmHg Echocardiography 03/15/12: LVEF 60-65%, +2 AR, nl LV/RV, LVEF 63% inf-apical akinesis, inferior hypokinesis at cath 04/01/12: Recovered LVEF ??? FATIMA (dyspnea on exertion) ??? JAN on CPAP ??? Hyperlipemia ??? SLE (systemic lupus erythematosus) On plaquinil since Systemic lupus erythematosus with discoid rash, arthritis, oral and nasal ulcers, pleuro pericarditis, Raynaud's phenomena treated with cyclophosamide, steroids and rituximab. rituxan 05/14 with CD 1936 in 12/12; rituxan 04/14/08 and 05/01/08; 04/15 ??? Hypertension Resolved Hospital Problems Diagnosis Date Resolved No resolved problems to display. Interval History: No chest pain or shortness of breath at rest, + SOB with exertion. For RHC and coronary angiography yesterday. Normal cors. PCW low, patient hypotensive, required IV hydration. Review of Systems: Review of Systems Constitutional: Negative. Patient states she feels anxious about her upcoming surgery. HENT: Negative. Eyes: Negative. Respiratory: Positive for chest tightness (exertional) and shortness of breath (exertional). Cardiovascular: Negative for chest pain. Gastrointestinal: Negative. Endocrine: Negative. Genitourinary: Negative. Musculoskeletal: Negative. Skin: Negative. Allergic/Immunologic: Negative. Neurological: Negative. Hematological: Negative. Psychiatric/Behavioral: Negative. Telemetry: HR: 59-81 bpm sinus rhythm, 5 beat NSVT Meds: Scheduled Meds: ??? hydroxychloroquine 200 mg Oral BID ??? levothyroxine 25 mcg Oral Daily ??? lisinopril 5 mg Oral Daily ??? sodium chloride 0.9 % 5 mL Intravenous BID ??? sodium chloride 0.9 % 5 mL Intravenous Q12H ??? famotidine 20 mg Oral Daily ??? docusate sodium 100 mg Oral BID ??? atorvastatin 80 mg Oral QPM ??? aspirin 81 mg Oral Daily Continuous Infusions: ??? heparin (porcine) 850 Units/hr (05/21/17 0600) PRN Meds:heparin (porcine) AND heparin (porcine), sodium chloride 0.9 %, lidocaine, nitroGLYcerin, sodium chloride 0.9 %, acetaminophen, LORazepam, morphine Physical Exam: Vital Signs: Last value Range last 24 hrs Temperature Temp: 36.3 ??C (97.3 ??F) Temp: [36.3 ??C (97.3 ??F)-36.7 ??C (98.1 ??F)] Heart Rate Heart Rate: 64 Heart Rate: [59-81] Blood Pressure BP: (!) 107/36 BP: (96-116)/(28-45) Respiratory Rate Resp: 18 Resp: [15-20] SpO2 SpO2: 98 % SpO2: [91 %-98 %] Patient Vitals for the past 168 hrs: Weight 05/21/17 0618 71.8 kg (158 lb 4.6 oz) 05/20/17 0703 72 kg (158 lb 11.7 oz) 05/19/17 0532 71.4 kg (157 lb 6.5 oz) 05/18/17 0532 71.4 kg (157 lb 6.5 oz) 05/17/17 2300 71.3 kg (157 lb 3 oz) Intake/Output Summary (Last 24 hours) at 05/21/17 0723 Last data filed at 05/21/17 0600 Gross per 24 hour Intake 1196 ml Output 1550 ml Net -354 ml Physical Exam Constitutional: She is oriented to person, place, and time. She appears well-developed. HENT: Head: Normocephalic. Neck: Normal range of motion. Cardiovascular: Normal rate and intact distal pulses. Murmur heard. Systolic murmur is present with a grade of 2/6 Diastolic murmur is present with a grade of 3/6 Pulmonary/Chest: Effort normal and breath sounds normal. Abdominal: Soft. Bowel sounds are normal. Musculoskeletal: Normal range of motion. Neurological: She is alert and oriented to person, place, and time. Skin: Skin is warm and dry. Psychiatric: She has a normal mood and affect. Vitals reviewed. Lab Comments: Recent Labs 05/21/17 0353 05/20/17 0513 05/19/17 0535 WBC 5.5 6.0 5.6 HGB 13.5 14.1 14.8 HCT 38.2 40.3 41.8 PLATELET 167 180 165 Recent Labs 05/21/17 0353 INR 1.4* Recent Labs 05/21/17 0353 05/20/17 0513 05/19/17 0535 NA 140 141 143 K 4.3 4.1 4.5 CL 102 100 102 CO2 26 27 28 BUN 19* 22* 18 CREATININE 0.75 1.00 0.83 Recent Labs 05/18/17 0036 AST 15 ALT 9 ALKPHOS 77 BILITOT 0.4 BILIDIR 0.1 Recent Labs 05/21/17 0353 05/20/17 0513 05/19/17 0535 05/18/17 0036 CALCIUM 9.1 9.7 9.7 < > 9.2 MAGNESIUM -- -- -- -- 0.73 PHOS -- -- -- -- 3.7 < > = values in this interval not displayed. Recent Labs 05/18/17 1235 05/18/17 0659 05/18/17 0036 CK 71 72 76 TROPONINT <0.01 <0.01 <0.01 Pertinent Radiographic/Diagnostic Results: 05/18/2017 Echo 1. The left ventricle is moderately dilated. (ABRAHAN=6.7cm, ABRAHAN=5.2cm)There is normal global left ventricular systolic function. Ejection fraction is estimated to be 55%. There are no left ventricular segmental wall motion abnormalities. 2. Right ventricular chamber size, wall thickness, and systolic function are within normal limits. 3. The aortic valve appears bicuspid. The aortic valve leaflets are mildly thickened. 4. Severe (4+/4+) aortic valve regurgitation is present. There is flow reversal noted in the abdominal aorta Doppler signal. 5. The aortic root is normal in size. The ascending aorta is normal in size. 6. When compared with report dated 03/2012, the aortic insufficiency is now severe with ventricular dilation and decline in LV function. 7. See remainder of report for additional findings [facility], coronary angiography 05/20/17: Conclusions: * Normal coronary arteries Hemodynamics: Right Heart Pressures Hemodynamics: Syst Diast EDP a v m RA 10 5 4 RV 22 4 PA 16 4 10 PCW 7 5 3 Hemodynamic Profile: Profile 1 CO 4.55 CI 2.57 TPR 176 PVR 123 Technique Estimated Danielle Left Heart Pressures Resting: Syst Diast EDP a v m Ao 99 31 Assessment: Noah Dumont is a 47 y.o. female with known SLE, antiphospholipid antibody syndrome,severe aortic regurg who is admitted for transition from Coumadin to heparin, cardiac cath and aortic valve surgery, expedited due to chest discomfort and progressive shortness of breath. Cath showing normal cors. Cardiac surgery consulted, AVR this admission. Plan: 1. Worsening chest pain/SOB in setting of severe aortic regurg Admitted to tele Enzymes cycled Cardiac cath - normal cors 2. SLE On hyroxychloroquine 200 mg bid 3. Hypothyroidism TSH 3.47 On levothyroxine 25 mcg 4. HTN Monitor trends BP: (107-116)/(29-36) On lisinopril 5 mg 5. Hyperlipidemia Atorvastatin 80 mg nightly Results for NOAH DUMONT ( ) as of 05/18/2017 07:15 Ref. Range 05/18/2017 00:36 Chol, Total Latest Units: mg/dL 197 HDL Latest Units: mg/dL 45 Chol/HDL Ratio Latest Units: ratio 4.4 Triglycerides Latest Units: mg/dL 72 LDL Cholesterol Latest Units: mg/dL 138 LDL Chol Direct Latest Units: mg/dL 145 6. Elevated pro-bnp. ADHF (acute valvular) Pro-bnp @ 455 Euvolemic on exam today Hypotensive with PCW 3, given IV fluids yesterday in laboratory aide 7. Severe aortic regurg Echo (results above) On ADRIA inhibitor FULL CODE This patient was discussed with Jeff Hernadez MD. Vikki Barron PA-C 05/21/2017 * Phuong Ortiz MD - 05/20/2017 9:59 AM EST Diagnostic angiography showed no coronary disease. Right and left heart filling pressures low, 250 cc NS given. Systemic pressure 90/50 mmHg. Preserved cardiac output. 6 Fr RRA with TR band 11 cc and 6 Fr RFV planned for manual pressure. Chest pain free and hemodynamically stable on transfer. * Jeff Hernadez MD - 05/20/2017 7:27 AM EST Images from the original note were not included. 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 Aortic insufficiency due to bicuspid aortic valve Severe AI 2+ -->4+ Widened pulse pressure Dilated LV ABRAHAN/ESD 6.7/ 5.3 cm EF=55% New dyspnea ??? Chest pain Cardiac catheterization 04/01/12: RAP-13 PAP-//, PCWP-13, CO/CI-4.12/2.23; LVEF 60% infero-apical akinesis, inferior hypokinesis, normal R dominant coronary arteries. Near equalization of diastolic R&Lp ressures- cannot rule out mild constrictive pericardial physiology. Cardiac catheterization 07/16/04: RAP-1 PAP-18/08/13, PCWP- 2, CO/CI-4.13/2.40; LVEF 33% globa lhyopokinesis, christen coronary arteries ??? Antiphospholipid antibody syndrome On chronic coumadin By hx, has required Lovenox bridge for procedures History transient ischemic attacks, CVA, miscarriages, migraine headaches, and thrombocytopenia, ??? Dilated cardiomyopathy, improved Dx; 2003-, EF = 30%, ?due [...] 60%, no RWMA Cardiac catheterization 07/16/04: RAP-1 PAP-18/08/13, PCWP- 2, CO/CI-4.13/2.40; LVEF 33% globa lhyopokinesis, normal coronary arteries, nl endomyocardial biopsy Echocardiography 10/13/06: LVEF 60%, nl RV, +1 AR, Echocardiography 10/28/07: LVEF 65%, no RWMA, nl RV, Echocardiography 10/30/08: LVEF 65%, no RWMA, nl RV, +1 AR, PASP 24 mmHg Echocardiography 03/15/12: LVEF 60-65%, +2 AR, nl LV/RV, LVEF 63% inf-apical akinesis, inferior hypokinesis at cath 04/01/12: Recovered LVEF ??? FATIMA (dyspnea on exertion) ??? JAN on CPAP ??? Hyperlipemia ??? SLE (systemic lupus erythematosus) On plaquinil since Systemic lupus erythematosus with discoid rash, arthritis, oral and nasal ulcers, pleuro pericarditis, Raynaud's phenomena treated with cyclophosamide, steroids and rituximab. rituxan 05/14 with CD 1936 in 12/12; rituxan 04/14/08 and 05/01/08; 04/15 ??? Hypertension Resolved Hospital Problems Diagnosis Date Resolved No resolved problems to display. Interval History: No chest pain or shortness of breath. For RHC and coronary angiography this morning. Net negative 1.6 L yesterday. Review of Systems: Review of Systems Constitutional: Negative. Patient states she feels anxious not about the cardiac cath but about her upcoming surgery. HENT: Negative. Eyes: Negative. Respiratory: Positive for chest tightness (exertional) and shortness of breath (exertional). Cardiovascular: Negative for chest pain. Gastrointestinal: Negative. Endocrine: Negative. Genitourinary: Negative. Musculoskeletal: Negative. Skin: Negative. Allergic/Immunologic: Negative. Neurological: Negative. Hematological: Negative. Psychiatric/Behavioral: Negative. Telemetry: HR: 62-98 bpm sinus rhythm Meds: Scheduled Meds: ??? hydroxychloroquine 200 mg Oral BID ??? levothyroxine 25 mcg Oral Daily ??? lisinopril 5 mg Oral Daily ??? sodium chloride 0.9 % 5 mL Intravenous BID ??? sodium chloride 0.9 % 5 mL Intravenous Q12H ??? famotidine 20 mg Oral Daily ??? docusate sodium 100 mg Oral BID ??? atorvastatin 80 mg Oral QPM ??? aspirin 81 mg Oral Daily Continuous Infusions: ??? heparin (porcine) 850 Units/hr (05/20/17 0700) PRN Meds:heparin (porcine) AND heparin (porcine), sodium chloride 0.9 %, lidocaine, nitroGLYcerin, sodium chloride 0.9 %, acetaminophen, LORazepam, morphine Physical Exam: Vital Signs: Last value Range last 24 hrs Temperature Temp: 36.5 ??C (97.7 ??F) Temp: [36.1 ??C (97 ??F)-37 ??C (98.6 ??F)] Heart Rate Heart Rate: 62 Heart Rate: [62-98] Blood Pressure BP: (!) 103/35 BP: (86-119)/(31-66) Respiratory Rate Resp: 16 Resp: [16] SpO2 SpO2: 95 % SpO2: [94 %-99 %] Patient Vitals for the past 168 hrs: Weight 05/20/17 0703 72 kg (158 lb 11.7 oz) 05/19/17 0532 71.4 kg (157 lb 6.5 oz) 05/18/17 0532 71.4 kg (157 lb 6.5 oz) 05/17/17 2300 71.3 kg (157 lb 3 oz) Intake/Output Summary (Last 24 hours) at 05/20/17 0728 Last data filed at 05/20/17 0700 Gross per 24 hour Intake 911.1 ml Output 2475 ml Net -1563.9 ml Physical Exam Constitutional: She is oriented to person, place, and time. She appears well-developed. HENT: Head: Normocephalic. Neck: Normal range of motion. Cardiovascular: Normal rate and intact distal pulses. Murmur heard. Systolic murmur is present with a grade of 2/6 Diastolic murmur is present with a grade of 3/6 Pulmonary/Chest: Effort normal and breath sounds normal. Abdominal: Soft. Bowel sounds are normal. Musculoskeletal: Normal range of motion. Neurological: She is alert and oriented to person, place, and time. Skin: Skin is warm and dry. Psychiatric: She has a normal mood and affect. Vitals reviewed. Lab Comments: Recent Labs 05/20/17 0513 05/19/17 0535 05/18/17 0659 WBC 6.0 5.6 4.7 HGB 14.1 14.8 12.5 HCT 40.3 41.8 35.6* PLATELET 180 165 166 Recent Labs 05/20/17 0513 INR 1.7* Recent Labs 05/20/17 0513 05/19/17 0535 05/18/17 0659 NA 141 143 142 K 4.1 4.5 4.1 CL 100 102 104 CO2 27 28 28 BUN 22* 18 16 CREATININE 1.00 0.83 0.93 Recent Labs 05/18/17 0036 AST 15 ALT 9 ALKPHOS 77 BILITOT 0.4 BILIDIR 0.1 Recent Labs 05/20/17 0513 05/19/17 0535 05/18/17 0659 05/18/17 0036 CALCIUM 9.7 9.7 8.9 9.2 MAGNESIUM -- -- -- 0.73 PHOS -- -- -- 3.7 Recent Labs 05/18/17 1235 05/18/17 0659 05/18/17 0036 CK 71 72 76 TROPONINT <0.01 <0.01 <0.01 Pertinent Radiographic/Diagnostic Results: ?? 05/18/2017 Echo 1. The left ventricle is moderately dilated. (ABRAHAN=6.7cm, ABRAHAN=5.2cm)There is normal global left ventricular systolic function. Ejection fraction is estimated to be 55%. There are no left ventricular segmental wall motion abnormalities. 2. Right ventricular chamber size, wall thickness, and systolic function are within normal limits. 3. The aortic valve appears bicuspid. The aortic valve leaflets are mildly thickened. 4. Severe (4+/4+) aortic valve regurgitation is present. There is flow reversal noted in the abdominal aorta Doppler signal. 5. The aortic root is normal in size. The ascending aorta is normal in size. 6. When compared with report dated 03/2012, the aortic insufficiency is now severe with ventricular dilation and decline in LV function. 7. See remainder of report for additional findings Assessment: Noah Dumont is a 47 y.o. female with known SLE, antiphospholipid antibody syndrome,severe aortic regurg who is admitted for transition from Coumadin to heparin. She has been seen in consult by Cardiac Surgery. For RHC and coronary angiography today. Plan: 1. Worsening chest pain/SOB in setting of severe aortic regurg Admitted to [facility] cycled For cardiac cath when INR <2.0, INR today 1.7 2. SLE On hyroxychloroquine 200 mg bid 3. Hypothyroidism TSH 3.47 On levothyroxine 25 mcg 4. HTN Monitor trends BP: (103-119)/(31-35) On lisinopril 5 mg 5. Hyperlipidemia Atorvastatin 80 mg nightly Results for NOAH DUMONT ( ) as of 05/18/2017 07:15 Ref. Range 05/18/2017 00:36 Chol, Total Latest Units: mg/dL 197 HDL Latest Units: mg/dL 45 Chol/HDL Ratio Latest Units: ratio 4.4 Triglycerides Latest Units: mg/dL 72 LDL Cholesterol Latest Units: mg/dL 138 LDL Chol Direct Latest Units: mg/dL 145 6. Elevated pro-bnp. ADHF (acute valvular) Pro-bnp @ 455 Needs R & L heart cath Euvolemic on exam today, will wait for RHC to further assess status 7. Aortic regurg Echo (results above) No beta montse as we do not wish to cause bradycardia On ADRIA inhibitor FULL CODE This patient was discussed with Jeff Hernadez MD. NEHEMIAH De SouzaC 05/20/2017 CARDIOLOGY ATTENDING NOTE Patient: Noah Dumont Date of Service: 05/20/2017 Date of Admission: 05/17/2017 Length of Stay Hospital Day 3 days Please see the above note by JANET De Souza, for details. I have interviewed and examined the patient independently and I concur with the assessment and plan. The case was discussed on cardiologyrounds and we reviewed the plan of care with the team and patient. Feeling a little better, still some of the atypical chest discomfort, but still anxious. INR=1.7, on heparin (antiphospholipid syndrome, SLE), pending R/L cardiac cath with angioa/aortogram today. Echo here confirms severe AI, dilated LVEDD/LVESD which is worrisome. PE unchanged, BP still with widened BP. Pt and updated. Active Hospital Problems Diagnosis ??? Aortic insufficiency due to bicuspid aortic valve ??? Chest pain ??? Antiphospholipid antibody syndrome ??? Dilated cardiomyopathy, improved ??? FATIMA (dyspnea on exertion) ??? JAN on CPAP ??? Hyperlipemia ??? SLE (systemic lupus erythematosus) ??? Hypertension Resolved Hospital Problems Diagnosis Date Resolved No resolved problems to display. JEFF HERNADEZ MD Pager [phone] * Jeff Hernadez MD - 05/19/2017 8:28 AM EST CARDIOLOGY ATTENDING NOTE Patient: Noah Dumont Date of Service: 05/19/2017 Date of Admission: 05/17/2017 Length of Stay Hospital Day 2 days Please see the H&P and the above note by Melody Collins APRN, for details. I have interviewedand examined the patient independently and I concur with the assessment and plan. The case was discussed on cardiology rounds and we reviewed the plan of care with the team and patient. The patient was followed by me in the remote past,with presumed SLE related cardiac disease and mild AV disease. S he is now seeing Dr Alegre at [facility], who now presents with hemodynamic and symptomatic AI. With her new chest discomfort, an EKG now shows new T wave inversions laterally which now has resolved. She still notes some dyspnea and malaise, but appears euvolemic. We will continue hold coumadinwith INR =2.2, with heparin to be started when INR> 2.0, as a heparin bridge, and proceed with R/L cardiac cath prior to consideration for more urgent AVR. Will continue ADRIA, initiate diuresis, and avoid b-blockers. Active Hospital Problems Diagnosis ??? Aortic insufficiency due to bicuspid aortic valve Severe AI 2+ -->4+ Widened pulse pressure Dilated LV ABRAHAN/ESD 6.7/ 5.3 cm EF=55% New dyspnea ??? Chest pain Cardiac catheterization 04/01/12: RAP-13 PAP-30//, PCWP-13, CO/CI-4.12/2.23; LVEF 60% infero-apical akinesis, inferior hypokinesis, normal R dominant coronary arteries. Near equalization of diastolic R&Lp ressures- cannot rule out mild constrictive pericardial physiology. Cardiac catheterization 07/16/04: RAP-1 PAP-18//10, PCWP- 2, CO/CI-4.13/2.40; LVEF 33% globa lhyopokinesis, chrsiten coronary arteries ??? Antiphospholipid antibody syndrome On chronic coumadin By hx, has required Lovenox bridge for procedures History transient ischemic attacks, CVA, miscarriages, migraine headaches, and thrombocytopenia, ??? Dilated cardiomyopathy, improved Dx; 2003-, EF = 30%, ?due [...] hypokinesis at cath 04/01/12: Recovered LVEF ??? FATIMA (dyspnea on exertion) ??? JAN on CPAP ??? Hyperlipemia ??? SLE (systemic lupus erythematosus) On plaquinil since Systemic lupus erythematosus with discoid rash, arthritis, oral and nasal ulcers, pleuro pericarditis, Raynaud's phenomena treated with cyclophosamide, steroids and rituximab. rituxan 05/14 with CD 1936 in 12/12; rituxan 04/14/08 and 05/01/08; 04/15 ??? Hypertension Resolved Hospital Problems Diagnosis Date Resolved No resolved problems to display. IPI Certification I certify that I am a D-H credentialed attending provider with admitting privileges and that the patient meets or has met medical necessity to require an inpatient IPI level of care meeting a minimumof two midnights or is on the [facility] inpatient only procedure list (status C) due to: chest pain, hemodynamic significant AI needing urgent evaluation. JEFF HERNADEZ MD Pager [phone] * Jeff Hernadez MD - 05/19/2017 7:37 AM EST Images from the original note were not included. 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 Chest pain Cardiac catheterization 04/01/12: RAP-13 PAP-30//, PCWP-13, CO/CI-4.12/2.23; LVEF 60% infero-apical akinesis, inferior hypokinesis, normal R dominant coronary arteries. Near equalization of diastolic R&Lp ressures- cannot rule out mild constrictive pericardial physiology. Cardiac catheterization 07/16/04: RAP-1 PAP-18//10, PCWP- 2, CO/CI-4.13/2.40; LVEF 33% globa lhyopokinesis, christen coronary arteries ??? Aortic insufficiency due to bicuspid aortic valve Severe AI 2+ -->4+ Widened pulse pressure Dilated LV ABRAHAN/ESD ??? Antiphospholipid antibody syndrome On chronic coumadin By hx, has required Lovenox bridge for procedures History transient ischemic attacks, CVA, miscarriages, migraine headaches, and thrombocytopenia, ??? FATIMA (dyspnea on exertion) ??? JAN on CPAP ??? Hyperlipemia ??? SLE (systemic lupus erythematosus) On plaquinil since Systemic lupus erythematosus with discoid rash, arthritis, oral and nasal ulcers, pleuro pericarditis, Raynaud's phenomena treated with cyclophosamide, steroids and rituximab. rituxan 05/14 with CD 1936 in 12/12; rituxan 04/14/08 and 05/01/08; 04/15 ??? Hypertension ??? Dilated cardiomyopathy, improved Dx; 2003-, EF = 30%, ?due [...] 60%, no RWMA Cardiac catheterization 07/16/04: RAP-1 PAP-18/08/13, PCWP- 2, CO/CI-4.13/2.40; LVEF 33% globa lhyopokinesis, normal coronary arteries, nl endomyocardial biopsy Echocardiography 10/13/06: LVEF 60%, nl RV, +1 AR, Echocardiography 10/28/07: LVEF 65%, no RWMA, nl RV, Echocardiography 10/30/08: LVEF 65%, no RWMA, nl RV, +1 AR, PASP 24 mmHg Echocardiography 12/10/12: LVEF 60-65%, +2 AR, nl LV/RV, LVEF 63% inf-apical akinesis, inferior hypokinesis at cath 04/01/12: Recovered LVEF Resolved Hospital Problems Diagnosis Date Resolved No resolved problems to display. Interval History: -c/o recent onset symptoms SOB when walking Uphill around [facility] -cath delayed due to prolonged INR -echo -seen in consult by Cardiac Surgery Review of Systems: Review of Systems Constitutional: Negative. Patient states she feels poorly just lying in bed HENT: Negative. Eyes: Negative. Respiratory: Positive for chest tightness (exertional) and shortness of breath (exertional). Cardiovascular: Positive for chest pain. Gastrointestinal: Negative. Endocrine: Negative. Genitourinary: Negative. Neurological: Negative. Hematological: Negative. Psychiatric/Behavioral: Negative. Telemetry: HR: 60 sinus rhythm Meds: Scheduled Meds: ??? hydroxychloroquine 200 mg Oral BID ??? levothyroxine 25 mcg Oral Daily ??? lisinopril 5 mg Oral Daily ??? sodium chloride 0.9 % 5 mL Intravenous BID ??? sodium chloride 0.9 % 5 mL Intravenous Q12H ??? famotidine 20 mg Oral Daily ??? docusate sodium 100 mg Oral BID ??? atorvastatin 80 mg Oral QPM ??? aspirin 81 mg Oral Daily Continuous Infusions: PRN Meds:sodium chloride 0.9 %, lidocaine, nitroGLYcerin, sodium chloride 0.9 %, acetaminophen, LORazepam, morphine Physical Exam: Vital Signs: Last value Range last 24 hrs Temperature Temp: 36.6 ??C (97.9 ??F) Temp: [36.5 ??C (97.7 ??F)-36.7 ??C (98.1 ??F)] Heart Rate Heart Rate: (!) 49 Heart Rate: [49-74] Blood Pressure BP: (!) 117/32 BP: (98-121)/(32-49) Respiratory Rate Resp: 16 Resp: [14-18] SpO2 SpO2: 96 % SpO2: [93 %-97 %] Patient Vitals for the past 168 hrs: Weight 05/19/17 0532 71.4 kg (157 lb 6.5 oz) 05/18/17 0532 71.4 kg (157 lb 6.5 oz) 05/17/17 2300 71.3 kg (157 lb 3 oz) Intake/Output Summary (Last 24 hours) at 05/19/17 0737 Last data filed at 05/19/17 0600 Gross per 24 hour Intake 650 ml Output 2150 ml Net -1500 ml Physical Exam Constitutional: She is oriented to person, place, and time. She appears well-developed. HENT: Head: Normocephalic. Neck: Normal range of motion. Cardiovascular: Normal rate and intact distal pulses. Murmur heard. Pulmonary/Chest: Effort normal and breath sounds normal. Abdominal: Soft. Bowel sounds are normal. Musculoskeletal: Normal range of motion. Neurological: She is alert and oriented to person, place, and time. Skin: Skin is warm and dry. Psychiatric: She has a normal mood and affect. Lab Comments: Recent Labs 05/19/17 0535 05/18/17 0659 05/18/17 0036 WBC 5.6 4.7 4.5 HGB 14.8 12.5 12.8 HCT 41.8 35.6* 36.5 PLATELET 165 166 175 Recent Labs 05/19/17 0535 INR 2.2* Recent Labs 05/19/17 0535 05/18/17 0659 05/18/17 0036 NA 143 142 144 K 4.5 4.1 3.9 CL 102 104 105 CO2 28 28 27 BUN 18 16 12 CREATININE 0.83 0.93 0.80 Recent Labs 05/18/17 0036 AST 15 ALT 9 ALKPHOS 77 BILITOT 0.4 BILIDIR 0.1 Recent Labs 05/19/17 0535 05/18/17 0659 05/18/17 0036 CALCIUM 9.7 8.9 9.2 MAGNESIUM -- -- 0.73 PHOS -- -- 3.7 Recent Labs 05/18/17 1235 05/18/17 0659 05/18/17 0036 CK 71 72 76 TROPONINT <0.01 <0.01 <0.01 Pertinent Radiographic/Diagnostic Results: I have personally reviewed the following studies ECG: NSR ?? 05/18/2017 Echo 1. The left ventricle is moderately dilated. (ABRAHAN=6.7cm, ABRAHAN=5.2cm)There is normal global left ventricular systolic function. Ejection fraction is estimated to be 55%. There are no left ventricular segmental wall motion abnormalities. 2. Right ventricular chamber size, wall thickness, and systolic function are within normal limits. 3. The aortic valve appears bicuspid. The aortic valve leaflets are mildly thickened. 4. Severe (4+/4+) aortic valve regurgitation is present. There is flow reversal noted in the abdominal aorta Doppler signal. 5. The aortic root is normal in size. The ascending aorta is normal in size. 6. When compared with report dated 03/2012, the aortic insufficiency is now severe with ventricular dilation and decline in LV function. 7. See remainder of report for additional findings Assessment: Noah Dumont is a 47 y.o. female With known SLE + antiphospholipid antibody syndrome+ severe aortic regurg is admitted for transition from coumadin to heparin. She has been seen in consult by Cardiac Surgery She needs a cardiac cath (INR 2.2). Will postpone today Antiphospholipid antibody. INR 2.2. Recheck INR @ 12 NOON. She will need heparin drip if INR 2.0 or<. Consult Hematology Plan: 1. Worsening chest pain/SOB in setting of severe aortic regurg Admitted to tele Enzymes cycled For cardiac cath when INR <2.0 2. SLE On hyroxychloroquine 200 mg bid 3. Hypothyroidism TSH 3.47 On levothyroxine 25 mcg 4. HTN Monitor trends BP: (92-117)/(32-62) On lisinopril 5 mg 5. Hyperlipidemia Results for NOAH DUMONT ( ) as of 05/18/2017 07:15 Ref. Range 05/18/2017 00:36 05/18/2017 00:36 Chol, Total Latest Units: mg/dL 197 197 HDL Latest Units: mg/dL 45 45 Chol/HDL Ratio Latest Units: ratio 4.4 4.4 Triglycerides Latest Units: mg/dL 72 72 LDL Cholesterol Latest Units: mg/dL 138 LDL Chol Direct Latest Units: mg/dL 145 6. Elevated pro-bnp. ADHF (acute valvular) Pro-bnp @ 455 Needs R & L heart cath + SOB today-administer IV diuretic 7. Aortic regurg Echo (results above) No beta montse as we do not wish to cause bradycardia On ADRIA inhibitor Melody Collins [employer] Nurse Practitioner-Department of Cardiology Kathleen. Ann. Pager [phone] Phone number: [phone] Fax number [phone] GI prophylaxis On famotidine DVT prophylaxis INR 2.8 I have discussed this patient with attending Dr. Jeff COLLINS, SUELLEN 05/19/2017 CARDIOLOGY ATTENDING NOTE Patient: Noah Dumont Date of Service: 05/19/2017 Date of Admission: 05/17/2017 Length of Stay Hospital Day 3 days Please see the above note by Melody Collins for details. I have interviewed and examined the patient independently and I concur with the assessment and plan. The case was discussed on cardiology rounds and we reviewed the plan of care with the team and patient. She became anxious this afternoon, and we had given IV lasix for mild dyspnea. BP was transiently low, but on my direct exam, BP ~ 118/40 mmHg. She noted some non specific chest discomfort, but there were not acute EKG changes although she had resolution of the non specific lateral T waves. Cardiac cath likely tomorrow. Active Hospital Problems Diagnosis ??? Aortic insufficiency due to bicuspid aortic valve ??? Chest pain ??? Antiphospholipid antibody syndrome ??? Dilated cardiomyopathy, improved ??? FATIMA (dyspnea on exertion) ??? JAN on CPAP ??? Hyperlipemia ??? SLE (systemic lupus erythematosus) ??? Hypertension Resolved Hospital Problems Diagnosis Date Resolved No resolved problems to display. JEFF HERNADEZ MD Pager [phone] * Teetee Helm - 05/18/2017 5:10 PM EST [employer] Screen Watcher Encounter Note Patient Name: Noah Dumont : [id number] MR#: [id number] Admit Date: 05/17/2017 10:57 PM Hospital Day 1 day Narrative: Noah is from [facility]. She has visited me the improvement analyst office at [facility] when she is there for blood draws and other appointments. She stopped by recently to tell skyler the scheduled surgeries for her here and asked me to visit her here.Her was visiting,but she sent him home. 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 Assessment: Noah arrived last night and has a procedure scheduled for tomorrow and a surgery scheduled for . She seems relaxed but the symptoms of there medical issues (shortness of breath, chest pain) have been very worrisome for her. She likes to talk as a distraction. She is comfortable now and appreciative of being here when she is being monitored. Intervention and Outcome: Conversation, listening. She was calm, distracted from focusing on there upcoming surgery. Follow-up: I'll visit Noah on after her surgery or next Thursday if she isn't able to have visitors onT. Time in Direct Care: Teetee Helm 05/18/2017 * Jeff Hernadez MD - 05/18/2017 8:05 AM EST CARDIOLOGY ATTENDING NOTE Patient: Noah Dumont Date of Service: 05/18/2017 Date of Admission: 05/17/2017 Length of Stay Hospital Day 1 day Please see the H&P and the above note by Melody Collins APRN, for details. I have interviewedand examined the patient independently and I concur with the assessment and plan. The case was discussed on cardiology rounds and we reviewed the plan of care with the team and patient. The patient was followed by me in the remote past, now seeing Dr Alegre at [facility], who now presents with hemodynamic and symptomatic AI. She denies any febrile illness, palpitations or syncope. A recent Echo demonstrates severe AI and LV dilatation and borderline LV function in the setting of a regurgitant lesion. With her new chest discomfort, an EKG now shows new T wave inversions laterally. We will hold coumadin but will need a heparin bridge, and proceed with R/L cardiac cath prior to consideration for moreurgent AVR. Active Hospital Problems Diagnosis ??? Chest pain Cardiac catheterization 04/01/12: RAP-13 PAP-, PCWP-13, CO/CI-4.12/2.23; LVEF 60% infero-apical akinesis, inferior hypokinesis, normal R dominant coronary arteries. Near equalization of diastolic R&Lp ressures- cannot rule out mild constrictive pericardial physiology. Cardiac catheterization 07/16/04: RAP-1 PAP-18//, PCWP- 2, CO/CI-4.13/2.40; LVEF 33% globa lhyopokinesis, christen coronary arteries ??? Aortic insufficiency due to bicuspid aortic valve Severe AI 2+ -->4+ Widened pulse pressure Dilated LV ABRAHAN/ESD ??? Antiphospholipid antibody syndrome On chronic coumadin By hx, has required Lovenox bridge for procedures History transient ischemic attacks, CVA, miscarriages, migraine headaches, and thrombocytopenia, ??? FATIMA (dyspnea on exertion) ??? JAN on CPAP ??? Hyperlipemia ??? SLE (systemic lupus erythematosus) On plaquinil since Systemic lupus erythematosus with discoid rash, arthritis, oral and nasal ulcers, pleuro pericarditis, Raynaud's phenomena treated with cyclophosamide, steroids and rituximab. rituxan 05/14 with CD 1936 in 12/12; rituxan 04/14/08 and 05/01/08; 04/15 ??? Hypertension ??? Dilated cardiomyopathy, improved Dx; 2003-, EF = 30%, ?due [...] 60%, no RWMA Cardiac catheterization 07/16/04: RAP-1 PAP-18/08/13, PCWP- 2, CO/CI-4.13/2.40; LVEF 33% globa lhyopokinesis, normal coronary arteries, nl endomyocardial biopsy Echocardiography 10/13/06: LVEF 60%, nl RV, +1 AR, Echocardiography 10/28/07: LVEF 65%, no RWMA, nl RV, Echocardiography 10/30/08: LVEF 65%, no RWMA, nl RV, +1 AR, PASP 24 mmHg Echocardiography 03/15/12: LVEF 60-65%, +2 AR, nl LV/RV, LVEF 63% inf-apical akinesis, inferior hypokinesis at cath 04/01/12: Recovered LVEF Resolved Hospital Problems Diagnosis Date Resolved No resolved problems to display. IPI Certification I certify that I am a D-H credentialed attending provider with admitting privileges and that the patient meets or has met medical necessity to require an inpatient IPI level of care meeting a minimumof two midnights or is on the [facility] inpatient only procedure list (status C) due to: chest pain, hemodynamic significant AI needing urgent evaluation. JEFF HERNADEZ MD Pager [phone] * Melody Collins APRN - 05/18/2017 7:06 AM EST Images from the original note were not included. Inpatient Cardiology Progress Note Patient Name: Noah Dumont Service: WATCH AND CLOCK REPAIR CLERK / PA Responsible Attending: Jeff Hernadez MD Reason for continued hospitalization: Awaiting cardiac catheterization Transition from coumadin to heparin (pre-AVR) Active Problems: Active Hospital Problems Diagnosis ??? Chest pain Cardiac catheterization 04/01/12: RAP-13 PAP-30/17/, PCWP-13, CO/CI-4.12/2.23; LVEF 60% infero-apical akinesis, inferior hypokinesis, normal R dominant coronary arteries. Near equalization of diastolic R&Lp ressures- cannot rule out mild constrictive pericardial physiology. Cardiac catheterization 07/16/04: RAP-1 PAP-18/5/10, PCWP- 2, CO/CI-4.13/2.40; LVEF 33% globa lhyopokinesis, christen coronary arteries ??? Aortic insufficiency due to bicuspid aortic valve ??? Antiphospholipid antibody syndrome On chronic coumadin By hx, has required Lovenox bridge for procedures History transient ischemic attacks, CVA, miscarriages, migraine headaches, and thrombocytopenia, ??? FATIMA (dyspnea on exertion) ??? JAN on CPAP ??? Hyperlipemia ??? SLE (systemic lupus erythematosus) On plaquinil since Systemic lupus erythematosus with discoid rash, arthritis, oral and nasal ulcers, pleuro pericarditis, Raynaud's phenomena treated with cyclophosamide, steroids and rituximab. rituxan 05/14 with CD 1936 in 12/12; rituxan 04/14/08 and 05/01/08; 04/15 ??? Hypertension Resolved Hospital Problems Diagnosis Date Resolved No resolved problems to display. Interval History: -admitted yesterday -c/o recent onset symptoms SOB when walking Uphill around [facility] Review of Systems: Review of Systems Constitutional: Negative. HENT: Negative. Eyes: Negative. Respiratory: Positive for chest tightness and shortness of breath. Cardiovascular: Positive for chest pain. Gastrointestinal: Negative. Endocrine: Negative. Genitourinary: Negative. Neurological: Negative. Hematological: Negative. Psychiatric/Behavioral: Negative. Telemetry: HR: 60 sinus rhythm Meds: Scheduled Meds: ??? hydroxychloroquine 200 mg Oral BID ??? levothyroxine 25 mcg Oral Daily ??? lisinopril 5 mg Oral Daily ??? sodium chloride 0.9 % 5 mL Intravenous BID ??? sodium chloride 0.9 % 5 mL Intravenous Q12H ??? famotidine 20 mg Oral Daily ??? docusate sodium 100 mg Oral BID ??? magnesium sulfate 1 g Intravenous Once ??? potassium chloride 40 mEq Oral Once Continuous Infusions: PRN Meds:sodium chloride 0.9 %, lidocaine, nitroGLYcerin, sodium chloride 0.9 %, acetaminophen, LORazepam, morphine Physical Exam: Vital Signs: Last value Range last 24 hrs Temperature Temp: 36.5 ??C (97.7 ??F) Temp: [36.4 ??C (97.5 ??F)-36.8 ??C (98.2 ??F)] Heart Rate Heart Rate: 59 Heart Rate: [59-78] Blood Pressure BP: (!) 107/30 BP: (98-115)/(30-36) Respiratory Rate Resp: 18 Resp: [18] SpO2 SpO2: 97 % SpO2: [93 %-97 %] Patient Vitals for the past 168 hrs: Weight 05/18/17 0532 71.4 kg (157 lb 6.5 oz) 05/17/17 2300 71.3 kg (157 lb 3 oz) Intake/Output Summary (Last 24 hours) at 05/18/17 0710 Last data filed at 05/18/17 0455 Gross per 24 hour Intake 220 ml Output 400 ml Net -180 ml Physical Exam Constitutional: She is oriented to person, place, and time. She appears well-developed. HENT: Head: Normocephalic. Neck: Normal range of motion. Cardiovascular: Normal rate and intact distal pulses. Murmur heard. Pulmonary/Chest: Effort normal and breath sounds normal. Abdominal: Soft. Bowel sounds are normal. Musculoskeletal: Normal range of motion. Neurological: She is alert and oriented to person, place, and time. Skin: Skin is warm and dry. Psychiatric: She has a normal mood and affect. Lab Comments: Recent Labs 05/18/176 05/13/17 1404 WBC 4.5 5.2 HGB 12.8 13.6 HCT 36.5 37.7 PLATELET 175 198 Recent Labs 05/18/1735 INR 2.8* Recent Labs 05/18/173505/13/17 1404 NA 144 143 K 3.9 4.0 CL 105 102 CO2 27 28 BUN 12 14 CREATININE 0.80 0.78 Recent Labs 05/18/1735 AST 15 ALT 9 ALKPHOS 77 BILITOT 0.4 BILIDIR 0.1 Recent Labs 05/18/17 0036 05/13/17 1404 CALCIUM 9.2 9.2 MAGNESIUM 0.73 -- PHOS 3.7 -- Recent Labs 05/18/17 0036 CK 76 TROPONINT <0.01 Pertinent Radiographic/Diagnostic Results: I have personally reviewed the following studies ECG: NSR Assessment: Noah Dumont is a 47 y.o. female With known SLE + antiphospholipid antibody syndrome+ severe aortic regurg is admitted for transition from coumadin to heparin. She needs a cardiac cath (INR 2.8) Plan: 1. Worsening chest pain/SOB in setting of severe aortic regurg Admitted to tele Enzymes cycled For cardiac cath when INR <2.0 2. SLE On hyroxychloroquine 200 mg bid 3. Hypothyroidism TSH 3.47 On levothyroxine 25 mcg 4. HTN Monitor trends BP: (98-115)/(30-36) On lisinopril 5 mg 5. Hyperlipidemia Results for NOAH DUMONT ( ) as of 05/18/2017 07:15 Ref. Range 05/18/2017 00:36 05/18/2017 00:36 Chol, Total Latest Units: mg/dL 197 197 HDL Latest Units: mg/dL 45 45 Chol/HDL Ratio Latest Units: ratio 4.4 4.4 Triglycerides Latest Units: mg/dL 72 72 LDL Cholesterol Latest Units: mg/dL 138 LDL Chol Direct Latest Units: mg/dL 145 6. Elevated pro-bnp Pro-bnp @ 455 Needs R & L heart cath On no diuretic 7. Aortic regurg echo Melody Collins APRN Nurse Practitioner-Department of Cardiology [email or web address] Pager [phone] Phone number: [phone] Fax number [phone] GI prophylaxis On famotidine DVT prophylaxis INR 2.8 I have discussed this patient with attending Dr. Jeff COLLINS APRN 05/18/2017 * Linda Almonte RN - 05/18/2017 5:57 AM EST OUTCOME EVALUATION NOTE: OUTCOME SUMMARY: Patient arrived from OSH. Telemetry initiated and pt oriented to room and call dowell system. VSS on RA. Diastolic BP shashank, aware. EKG obtained. Admit labs drawn. PRN morphine administered x1 for chest pressure with good effect. Mother remained at bedside throughout shift. Patient kept NPO. PLAN MOVING FORWARD: Monitor INR, cardiac cath, AVR? INDIVIDUALIZED FALL PREVENTION INTERVENTIONS: Patient-specific fall risk factors per assessment: [current deficits]: Hospitalization, CP Assistance [level of assistance required for transfers and ambulation]: SB Supervision [direct monitoring required during toileting and ADLs]: Intermittent, rings appropriately Surveillance [continuous indirect monitoring]: Telemetry, hourly rounding, call dowell in reach documented in this encounter H&P Notes * Kuldeep Conner MD - 05/25/2017 8:11 AM EST No interval change, pt ready for surgery. Source Note - Andrea Stewart MD - 05/17/2017 11:13 PM EST Cardiology Admission H&P Patient Name: Noah Dumont Date of : 1970 Age: 47 y.o. Hospital Admit Date: 05/17/2017 Inpatient Attending: Dereck Adams MD PCP: Mckenna Genao APRN Presenting Diagnosis/Chief Complaint: Left sided chest pain and worsening shortness of breath. Active Problem List: Active Hospital Problems Diagnosis ??? Chest pain Cardiac catheterization 04/01/12: RAP-13 PAP-, PCWP-13, CO/CI-4.12/2.23; LVEF 60% infero-apical akinesis, inferior hypokinesis, normal R dominant coronary arteries. Near equalization of diastolic R&Lp ressures- cannot rule out mild constrictive pericardial physiology. Cardiac catheterization 07/16/04: RAP-1 PAP-18//10, PCWP- 2, CO/CI-4.13/2.40; LVEF 33% globa lhyopokinesis, christen coronary arteries ??? Aortic insufficiency due to bicuspid aortic valve ??? FATIMA (dyspnea on exertion) ??? JAN on CPAP ??? Hyperlipemia ??? SLE (systemic lupus erythematosus) On plaquinil since Systemic lupus erythematosus with discoid rash, arthritis, oral and nasal ulcers, pleuro pericarditis, Raynaud's phenomena treated with cyclophosamide, steroids and rituximab. rituxan 05/14 with CD 1936 in 12/12; rituxan 04/14/08 and 05/01/08; 04/15 ??? Antiphospholipid antibody syndrome On chronic coumadin By hx, has required Lovenox bridge for procedures History transient ischemic attacks, CVA, miscarriages, migraine headaches, and thrombocytopenia, ??? Hypertension Resolved Hospital Problems Diagnosis Date Resolved No resolved problems to display. History of Present Illness: HPI Mrs Noah Dumont is a 47 y/o F with h/o CVA(with no residual defects),SLE,Anti phospholipid antibody syndrome(on coumadin),Anxiety and cardiomyopathy had chest pain with exertion on last Thursday and started having chest pain at rest from Thursday night, persisted until yesterday and went to [facility] ER yesterday afternoon.She has been having worsening shortnessof breath for the last few months and had TTE 2 weeks back and referred by Dr Alegre for possible surgical intervention last week. She was scheduled to have elective cardiac cath on 06/01/2017 and possible replacement of leaking Bicuspid aortic valve on 06/02/[address] Robles. Her chest pain was 10/10 in severity, radiating to left shoulder and left arm, associated with shortness of breath,palpitations and nausea. Pain never went away completely on Thursday night and persisted until Thursday afternoon and she decided to go to [facility] ER with the help of her . In the ER her troponins were negative and no acute ECG changes, she was anxious and her symptoms relieved after a dose of morphine and ativan. After discussing with Dr Robles and cardiology team she got transferred to [facility] [place] further evaluation and to expedite her elective cath and surgical Aortic valve replacement because of her worsening symptoms. Denies any cough or fever. Her Shortness of breath has been worsening gradually both with exertion and also at rest. She has been using 3 pillows to sleep, unable to lie down flat for long time.She had a recent office visit with Hematology and advised to start lovenox 5 days before the procedure and to stop coumadin.She was started on 25 mcg of levothyroxine recently. Denies any abdominal pain, melena or blood in the stool . Labs and Imaging from [facility]; Vitals on arrival;Bp; 137/44; Pr; 87; O2 sat; 95% Wbc; 4.55 Hg; 13.2 Platelets; 189 Na; 141 K; 3.6 BUN; 15 Creat; 0.81 Mag; 1.6 Trop I <0.02 Pro-BNP; 431 PT; 35.5 INR; 3.7 PTT;39.7 Ecg; Sinus rhythm,LVH. Chest X ray; Mild cardiomegaly. Medications administered; Morphine; 2mg Zofran; 4mg Ativan; 0.5mg Normal saline; 250 ml Past Medical History: Past Medical History: Diagnosis Date ??? Antiphospholipid antibody syndrome ??? Anxiety ??? Cerebrovascular accident ??? Chest pain 04/01/2012 ??? CHF (congestive heart failure) ??? Depression ??? FATIMA (dyspnea on exertion) 04/01/2012 ??? H/O total knee replacement 04/01/2012 ??? Hypertension ??? Migraine ??? JAN (obstructive sleep apnea) ??? Osteoporosis 04/01/2012 ??? Osteoporosis ??? SLE (systemic lupus erythematosus) Previous Diagnostics: Echo from [facility];04/30/2017. LVEF; 50-53%(Biplane) Ao Root; 3.48cm LVID; 6.75cm LA Volume; 57ml Severe AI Echo:03/15/2012 LVEF-60-65% Moderate AR Mild MR,Mild TR Aortic root; 36mm LVEDD-51mm Left and right Heart Cath:04/01/2012 Normal coronary arteries LVEF; 64% ?Pericardial constrictive physiology Surgical History/Problems: Past Surgical History: Procedure Laterality Date ??? DILATION AND CURETTAGE OF UTERUS ??? JOINT REPLACEMENT ??? LEEP ??? MOUTH SURGERY ??? TUBAL LIGATION ??? TUBAL LIGATION Significant Family History: Family History Problem Relation Age of Onset ??? Coronary Artery Disease Father Biological father Social History: Social History Social History ??? Marital status: Spouse name: N/A ??? Number of children: N/A ??? Years of education: N/A Occupational History ??? Not on file. Social History Main Topics ??? Smoking status: Former Smoker Quit date: 10/22/2007 ??? Smokeless tobacco: Never Used ??? Alcohol use No ??? Drug use: No ??? Sexual activity: Not on file Comment: Deferred Other Topics Concern ??? Not on file Social History Narrative REVIEW OF SYSTEMS: General ROS: No fatigue or weakness. Psychological: Anxiety and depression+ Ophthalmic: Transient episode of double vision ENT: Negative for ear discharge or running nose or cold or throat swelling. Allergy: negative for itchy/watery eyes Heme: Negative for bleeding, bruising, fatigue, jaundice, night sweats Endocrine: negative for polydipsia/polyuria/ heat intolerance Respiratory: Shortness of breath with exertion CVS: Left sided chest pain with radiation to left shoulder ,10/10 at rest started Thursday night. GI: No abd pain, change in bowel habits, or black or bloody stools Genitourinary: No dysuria, trouble voiding, or hematuria MSK: Left shoulder pain with minimal restricted mobility yesterday, no joint stiffness or joint swelling Neurological: No TIA or stroke symptoms Medications: Prescriptions Prior to Admission Medication Sig Dispense Refill Last Dose ??? lisinopril (PRINIVIL;ZESTRIL) 10 mg Tablet Take 10 mg by mouth daily. 05/17/2017 at Unknown time ??? LEVOTHYROXINE SODIUM (LEVOTHYROXINE ORAL) Take by mouth daily. Dosage Unknown 05/18/2017 at Unknown time ??? hydroxychloroquine (PLAQUENIL) 200 mg tablet Take 1 tablet by mouth 2 times daily. 60 tablet 6 05/18/2017 at Unknown time ??? warfarin (COUMADIN) 5 mg tablet As directed 05/16/2017 at Unknown time ??? multivitamin with minerals tablet 1 Tablet(s), PO, Once daily 05/18/2017 at Unknown time ??? cetirizine (ZYRTEC) 10 mg Tablet Take 10 mg by mouth daily. Unknown at Unknown time ??? enoxaparin (LOVENOX) 100 mg/mL Syringe Inject 1 mL subcutaneously daily. 4 Syringe 1 Allergies: Allergies Allergen Reactions ??? Tramadol Upset stomach PHYSICAL EXAM: Last set of vital signs: BP (!) 107/30 (BP Location (NBP): Right arm) Pulse 59 Temp 36.5 ??C (97.7 ??F) (Oral) Resp 18 Ht 162.6 cm (5' 4) Wt 71.4 kg (157 lb 6.5 oz) SpO2 97% BMI 27.02 kg/m2 Gen/Constitutional: Alert, appears anxious+. HEENT: BUZZ, EOMI, No conjunctival pallor or scleral icterus Cardiac/CVS: RRR S1 S2 Early diastolic murmur at Aortic area+, JVP-9 Pulm/Chest: No crackles or wheezing Abd/GI: No tenderness, not distended, soft, BS present, no organomegaly Musculoskeletal: no edema . Pulses palpable pounding uniform and high volume, no calf tenderness Neuro/SOLAR INSTALLATION MANAGER: AAO x 3, No evident deficits Skin/Integumentary: No rash Diagnostics: EKG; Dynamic changes compared to the ecg from [facility]; Sinus rhythm, Q waves in inferior leads, Left atrial enlargement, LVH and , biphasic t waves in V2-V3 , and T wave inversions in V4,V5,V6,lead IIIand AVF with poor R wave progression in leeann septal leads. LABS: Recent Results (from the past 24 hour(s)) Magnesium Result Value Ref Range Magnesium 0.73 0.69 - 1.07 mmol/L Phosphorus Result Value Ref Range Phosphorus 3.7 2.5 - 4.5 mg/dL TSH Result Value Ref Range TSH 3.47 0.27 - 4.20 mlU/ML pro-Brain Natriuretic Peptide Result Value Ref Range ProBNP 455 (H) <=125 pg/mL Hepatic Function Panel Result Value Ref Range Total Protein 6.8 6.1 - 8.0 gm/dL Albumin 3.8 3.2 - 5.2 gm/dL AST 15 0 - 30 unit/L ALT 9 0 - 30 unit/L Alk Phos 77 40 - 104 unit/L Total Bilirubin 0.4 0.2 - 1.3 mg/dL Bili, Direct 0.1 0.0 - 0.3 mg/dL Prothrombin Time Result Value Ref Range PT 29.9 (H) 11.8 - 14.0 sec INR 2.8 (H) 0.9 - 1.1 APTT Result Value Ref Range PTT 55 (H) 25 - 35 sec Lipid Panel Result Value Ref Range Chol, Total 197 mg/dL Triglycerides 72 mg/dL HDL 45 mg/dL LDL Cholesterol 138 mg/dL Chol/HDL Ratio 4.4 ratio Lipid Interpretation See Note Cardiac Enzymes (LEB/CGP) Result Value Ref Range Troponin-T <0.01 0.00 - 0.00 ng/mL CK, Total 76 0 - 160 unit/L Hemoglobin A1c Result Value Ref Range Hemoglobin A1C 5.0 4.3 - 5.6 % Est Avg Gluc 97 mg/dL LDL Cholesterol, Direct Result Value Ref Range LDL Chol Direct 145 mg/dL HDL/Cholesterol Profile Result Value Ref Range Chol, Total 197 mg/dL HDL 45 mg/dL Chol/HDL Ratio 4.4 ratio Chol/HDL Interpretation See Note Triglyceride Result Value Ref Range Triglycerides 72 mg/dL Hemogram Result Value Ref Range WBC 4.5 4.0 - 9.5 x10(3)/mcL RBC 3.96 (L) 4.00 - 5.21 x10(6)/mcL Hemoglobin 12.8 11.7 - 15.5 gm/dL Hematocrit 36.5 35.7 - 45.8 % MCV 92.2 82.6 - 94.4 fL MCH 32.3 (H) 27.1 - 32.0 pg MCHC 35.1 (H) 31.7 - 35.0 gm/dL Platelets 175 145 - 357 x10(3)/mcL RDWSD 42.6 37.0 - 46.0 fL RDWCV 12.6 11.5 - 14.1 % MPV 10.6 7.6 - 12.9 fL nRBC % Auto 0.0 % nRBC Abs Auto 0.000 0.000 - 0.000 x10(3)/mcL Differential, Automated Result Value Ref Range Neutrophils % 51.9 % Neutr Abs (ANC) 2.35 1.70 - 6.10 x10(3)/mcL Lymphocytes % 33.3 % Lymphocytes Abs 1.5 0.9 - 3.2 x10(3)/mcL Monocytes % 9.7 % Monocyte Abs 0.4 0.3 - 0.9 x10(3)/mcL Eosinophils % 4.2 % Eosinophils Abs 0.2 0.0 - 0.4 x10(3)/mcL Basophils % 0.7 % Basophils Abs 0.0 0.0 - 0.1 x10(3)/mcL Immature Gran % 0.20 % Poonam Gran Abs 0.01 0.00 - 0.04 x10(3)/mcL BMP w/fasting Glucose Result Value Ref Range Glucose Fasting 88 65 - 99 mg/dL BUN 12 8 - 18 mg/dL Creatinine 0.80 0.70 - 1.20 mg/dL Sodium 144 135 - 145 mmol/L Potassium 3.9 3.5 - 5.0 mmol/L Chloride 105 98 - 107 mmol/L CO2 27 22 - 31 mmol/L Anion Gap 12 5 - 15 mmol/L Calcium 9.2 8.5 - 10.5 mg/dL Estimated GFR >60 >=60 A&P: Mrs Noah Dumont is a 47 y/o F with h/o CVA(with no residual defects),SLE,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 Her troponins were negative and ecg was not suggestive of any acute abnormality ACS was ruled out. Because of her severe symptomatic AR and chest pain transferred to [facility] for further evaluation and follow up. 1; Chest pain; Mostly from poor diastolic coronary perfusion from severe AR. Troponins has been negative, not symptomatic at this time at rest.Her INR is 3.7 .Not comfortable to reverse her INR with h/o CVA and lack of emergent indication for cardiac cath Will hold coumadin to follow up with INR, once INR is les than 2, will start on heparin gtt and will schedule for cardiac cath and possible SAVR(surgical aortic valve replacement) based on cath findings. Trending troponins Lipitor 40mg Lisinopril Will discuss with CT surgery team about starting on aspirin. TTE to asses LVEF and any wall motion abnormality. Ecg has some changes compared to [facility] ,but doesn't meet the criteria for Wellens syndrome and she has been pain free from this evening with negative troponins.. 2; Severe symptomatic AR with Bicuspid Aortic Valve; Will get TTE to asses the LVEF,ERO,Aortic rootand Ascending aorta in preparation for Mechanical SAVR after left and right heart cath. 3; SLE and Antiphospholid antibody syndrome(APAS); Will continue on plaquenil and anticoagulation(with heparin/lovenox) once her INR is less than 2 . 4; H/O CVA; Attributing to SLE and APAS ; Therapeutic INR, will get lipid panel and will discuss with the CT surgery team about starting on aspirin. 5; Anxiety and Depression; There is a slight possibility of anxiety adding to her symptoms, will benefit from SSRI with the symptoms of generalized anxiety disorder and depression. 6; Hypothyroidism; Recent diagnosis, will repeat TSH levels and will continue on low dose of levothyroxine. 7; Code status; Wants to be full code. Discussed with the patient and her mother and father in detail about the plan of care . Andrea Stewart MD Provider #: [id number] 05/18/2017 * Andrea Stewart MD - 05/17/2017 11:13 PM EST Cardiology Admission H&P Patient Name: Noah Dumont Date of : 1970 Age: 47 y.o. Hospital Admit Date: 05/17/2017 Inpatient Attending: Dereck Adams MD PCP: Mckenna Genao APRN Presenting Diagnosis/Chief Complaint: Left sided chest pain and worsening shortness of breath. Active Problem List: Active Hospital Problems Diagnosis ??? Chest pain Cardiac catheterization 04/01/12: RAP-13 PAP-, PCWP-13, CO/CI-4.12/2.23; LVEF 60% infero-apical akinesis, inferior hypokinesis, normal R dominant coronary arteries. Near equalization of diastolic R&Lp ressures- cannot rule out mild constrictive pericardial physiology. Cardiac catheterization 07/16/04: RAP-1 PAP-18/5/10, PCWP- 2, CO/CI-4.13/2.40; LVEF 33% globa lhyopokinesis, christen coronary arteries ??? Aortic insufficiency due to bicuspid aortic valve ??? FATIMA (dyspnea on exertion) ??? JAN on CPAP ??? Hyperlipemia ??? SLE (systemic lupus erythematosus) On plaquinil since 89 Systemic lupus erythematosus with discoid rash, arthritis, oral and nasal ulcers, pleuro pericarditis, Raynaud's phenomena treated with cyclophosamide, steroids and rituximab. rituxan 05/14 with CD 1936 in 12/12; rituxan 04/14/08 and 05/01/08; 04/15 ??? Antiphospholipid antibody syndrome On chronic coumadin By hx, has required Lovenox bridge for procedures History transient ischemic attacks, CVA, miscarriages, migraine headaches, and thrombocytopenia, ??? Hypertension Resolved Hospital Problems Diagnosis Date Resolved No resolved problems to display. History of Present Illness: HPI Mrs Noah Dumont is a 47 y/o F with h/o CVA(with no residual defects),SLE,Anti phospholipid antibody syndrome(on coumadin),Anxiety and cardiomyopathy had chest pain with exertion on last Thursday and started having chest pain at rest from Thursday night, persisted until yesterday and went to [facility] ER yesterday afternoon.She has been having worsening shortnessof breath for the last few months and had TTE 2 weeks back and referred by Dr Alegre for possible surgical intervention last week. She was scheduled to have elective cardiac cath on 06/01/2017 and possible replacement of leaking Bicuspid aortic valve on 06/02/[address] Robles. Her chest pain was 10/10 in severity, radiating to left shoulder and left arm, associated with shortness of breath,palpitations and nausea. Pain never went away completely on Thursday night and persisted until Thursday afternoon and she decided to go to [facility] ER with the help of her . In the ER her troponins were negative and no acute ECG changes, she was anxious and her symptoms relieved after a dose of morphine and ativan. After discussing with Dr Robles and cardiology team she got transferred to [facility] for further evaluation and to expedite her elective cath and surgical Aortic valve replacement because of her worsening symptoms. Denies any cough or fever. Her Shortness of breath has been worsening gradually both with exertion and also at rest. She has been using 3 pillows to sleep, unable to lie down flat for long time.She had a recent office visit with Hematology and advised to start lovenox 5 days before the procedure and to stop coumadin.She was started on 25 mcg of levothyroxine recently. Denies any abdominal pain, melena or blood in the stool . Labs and Imaging from [facility]; Vitals on arrival;Bp; 137/44; Pr; 87; O2 sat; 95% Wbc; 4.55 Hg; 13.2 Platelets; 189 Na; 141 K; 3.6 BUN; 15 Creat; 0.81 Mag; 1.6 Trop I <0.02 Pro-BNP; 431 PT; 35.5 INR; 3.7 PTT;39.7 Ecg; Sinus rhythm,LVH. Chest X ray; Mild cardiomegaly. Medications administered; Morphine; 2mg Zofran; 4mg Ativan; 0.5mg Normal saline; 250 ml Past Medical History: Past Medical History: Diagnosis Date ??? Antiphospholipid antibody syndrome ??? Anxiety ??? Cerebrovascular accident ??? Chest pain 04/01/2012 ??? CHF (congestive heart failure) ??? Depression ??? FATIMA (dyspnea on exertion) 04/01/2012 ??? H/O total knee replacement 04/01/2012 ??? Hypertension ??? Migraine ??? JAN (obstructive sleep apnea) ??? Osteoporosis 04/01/2012 ??? Osteoporosis ??? SLE (systemic lupus erythematosus) Previous Diagnostics: Echo from [facility];04/30/2017. LVEF; 50-53%(Biplane) Ao Root; 3.48cm LVID; 6.75cm LA Volume; 57ml Severe AI Echo:03/15/2012 LVEF-60-65% Moderate AR Mild MR,Mild TR Aortic root; 36mm LVEDD-51mm Left and right Heart Cath:04/01/2012 Normal coronary arteries LVEF; 64% ?Pericardial constrictive physiology Surgical History/Problems: Past Surgical History: Procedure Laterality Date ??? DILATION AND CURETTAGE OF UTERUS ??? JOINT REPLACEMENT ??? LEEP ??? MOUTH SURGERY ??? TUBAL LIGATION ??? TUBAL LIGATION Significant Family History: Family History Problem Relation Age of Onset ??? Coronary Artery Disease Father Biological father Social History: Social History Social History ??? Marital status: Spouse name: N/A ??? Number of children: N/A ??? Years of education: N/A Occupational History ??? Not on file. Social History Main Topics ??? Smoking status: Former Smoker Quit date: 10/22/2007 ??? Smokeless tobacco: Never Used ??? Alcohol use No ??? Drug use: No ??? Sexual activity: Not on file Comment: Deferred Other Topics Concern ??? Not on file Social History Narrative REVIEW OF SYSTEMS: General ROS: No fatigue or weakness. Psychological: Anxiety and depression+ Ophthalmic: Transient episode of double vision ENT: Negative for ear discharge or running nose or cold or throat swelling. Allergy: negative for itchy/watery eyes Heme: Negative for bleeding, bruising, fatigue, jaundice, night sweats Endocrine: negative for polydipsia/polyuria/ heat intolerance Respiratory: Shortness of breath with exertion CVS: Left sided chest pain with radiation to left shoulder ,10/10 at rest started Thursday night. GI: No abd pain, change in bowel habits, or black or bloody stools Genitourinary: No dysuria, trouble voiding, or hematuria MSK: Left shoulder pain with minimal restricted mobility yesterday, no joint stiffness or joint swelling Neurological: No TIA or stroke symptoms Medications: Prescriptions Prior to Admission Medication Sig Dispense Refill Last Dose ??? lisinopril (PRINIVIL;ZESTRIL) 10 mg Tablet Take 10 mg by mouth daily. 05/17/2017 at Unknown time ??? LEVOTHYROXINE SODIUM (LEVOTHYROXINE ORAL) Take by mouth daily. Dosage Unknown 05/18/2017 at Unknown time ??? hydroxychloroquine (PLAQUENIL) 200 mg tablet Take 1 tablet by mouth 2 times daily. 60 tablet 6 05/18/2017 at Unknown time ??? warfarin (COUMADIN) 5 mg tablet As directed 05/16/2017 at Unknown time ??? multivitamin with minerals tablet 1 Tablet(s), PO, Once daily 05/18/2017 at Unknown time ??? cetirizine (ZYRTEC) 10 mg Tablet Take 10 mg by mouth daily. Unknown at Unknown time ??? enoxaparin (LOVENOX) 100 mg/mL Syringe Inject 1 mL subcutaneously daily. 4 Syringe 1 Allergies: Allergies Allergen Reactions ??? Tramadol Upset stomach PHYSICAL EXAM: Last set of vital signs: BP (!) 107/30 (BP Location (NBP): Right arm) Pulse 59 Temp 36.5 ??C (97.7 ??F) (Oral) Resp 18 Ht 162.6 cm (5' 4) Wt 71.4 kg (157 lb 6.5 oz) SpO2 97% BMI 27.02 kg/m2 Gen/Constitutional: Alert, appears anxious+. HEENT: BUZZ, EOMI, No conjunctival pallor or scleral icterus Cardiac/CVS: RRR S1 S2 Early diastolic murmur at Aortic area+, JVP-9 Pulm/Chest: No crackles or wheezing Abd/GI: No tenderness, not distended, soft, BS present, no organomegaly Musculoskeletal: no edema . Pulses palpable pounding uniform and high volume, no calf tenderness Neuro/SOLAR INSTALLATION MANAGER: AAO x 3, No evident deficits Skin/Integumentary: No rash Diagnostics: EKG; Dynamic changes compared to the ecg from [facility]; Sinus rhythm, Q waves in inferior leads, Left atrial enlargement, LVH and , biphasic t waves in V2-V3 , and T wave inversions in V4,V5,V6,lead IIIand AVF with poor R wave progression in leeann septal leads. LABS: Recent Results (from the past 24 hour(s)) Magnesium Result Value Ref Range Magnesium 0.73 0.69 - 1.07 mmol/L Phosphorus Result Value Ref Range Phosphorus 3.7 2.5 - 4.5 mg/dL TSH Result Value Ref Range TSH 3.47 0.27 - 4.20 mlU/ML pro-Brain Natriuretic Peptide Result Value Ref Range ProBNP 455 (H) <=125 pg/mL Hepatic Function Panel Result Value Ref Range Total Protein 6.8 6.1 - 8.0 gm/dL Albumin 3.8 3.2 - 5.2 gm/dL AST 15 0 - 30 unit/L ALT 9 0 - 30 unit/L Alk Phos 77 40 - 104 unit/L Total Bilirubin 0.4 0.2 - 1.3 mg/dL Bili, Direct 0.1 0.0 - 0.3 mg/dL Prothrombin Time Result Value Ref Range PT 29.9 (H) 11.8 - 14.0 sec INR 2.8 (H) 0.9 - 1.1 APTT Result Value Ref Range PTT 55 (H) 25 - 35 sec Lipid Panel Result Value Ref Range Chol, Total 197 mg/dL Triglycerides 72 mg/dL HDL 45 mg/dL LDL Cholesterol 138 mg/dL Chol/HDL Ratio 4.4 ratio Lipid Interpretation See Note Cardiac Enzymes (LEB/CGP) Result Value Ref Range Troponin-T <0.01 0.00 - 0.00 ng/mL CK, Total 76 0 - 160 unit/L Hemoglobin A1c Result Value Ref Range Hemoglobin A1C 5.0 4.3 - 5.6 % Est Avg Gluc 97 mg/dL LDL Cholesterol, Direct Result Value Ref Range LDL Chol Direct 145 mg/dL HDL/Cholesterol Profile Result Value Ref Range Chol, Total 197 mg/dL HDL 45 mg/dL Chol/HDL Ratio 4.4 ratio Chol/HDL Interpretation See Note Triglyceride Result Value Ref Range Triglycerides 72 mg/dL Hemogram Result Value Ref Range WBC 4.5 4.0 - 9.5 x10(3)/mcL RBC 3.96 (L) 4.00 - 5.21 x10(6)/mcL Hemoglobin 12.8 11.7 - 15.5 gm/dL Hematocrit 36.5 35.7 - 45.8 % MCV 92.2 82.6 - 94.4 fL MCH 32.3 (H) 27.1 - 32.0 pg MCHC 35.1 (H) 31.7 - 35.0 gm/dL Platelets 175 145 - 357 x10(3)/mcL RDWSD 42.6 37.0 - 46.0 fL RDWCV 12.6 11.5 - 14.1 % MPV 10.6 7.6 - 12.9 fL nRBC % Auto 0.0 % nRBC Abs Auto 0.000 0.000 - 0.000 x10(3)/mcL Differential, Automated Result Value Ref Range Neutrophils % 51.9 % Neutr Abs (ANC) 2.35 1.70 - 6.10 x10(3)/mcL Lymphocytes % 33.3 % Lymphocytes Abs 1.5 0.9 - 3.2 x10(3)/mcL Monocytes % 9.7 % Monocyte Abs 0.4 0.3 - 0.9 x10(3)/mcL Eosinophils % 4.2 % Eosinophils Abs 0.2 0.0 - 0.4 x10(3)/mcL Basophils % 0.7 % Basophils Abs 0.0 0.0 - 0.1 x10(3)/mcL Immature Gran % 0.20 % Poonam Gran Abs 0.01 0.00 - 0.04 x10(3)/mcL BMP w/fasting Glucose Result Value Ref Range Glucose Fasting 88 65 - 99 mg/dL BUN 12 8 - 18 mg/dL Creatinine 0.80 0.70 - 1.20 mg/dL Sodium 144 135 - 145 mmol/L Potassium 3.9 3.5 - 5.0 mmol/L Chloride 105 98 - 107 mmol/L CO2 27 22 - 31 mmol/L Anion Gap 12 5 - 15 mmol/L Calcium 9.2 8.5 - 10.5 mg/dL Estimated GFR >60 >=60 A&P: Mrs Noah Dumont is a 47 y/o F with h/o CVA(with no residual defects),SLE,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 Her troponins were negative and ecg was not suggestive of any acute abnormality ACS was ruled out. Because of her severe symptomatic AR and chest pain transferred to [facility] for further evaluation and follow up. 1; Chest pain; Mostly from poor diastolic coronary perfusion from severe AR. Troponins has been negative, not symptomatic at this time at rest.Her INR is 3.7 .Not comfortable to reverse her INR with h/o CVA and lack of emergent indication for cardiac cath Will hold coumadin to follow up with INR, once INR is les than 2, will start on heparin gtt and will schedule for cardiac cath and possible SAVR(surgical aortic valve replacement) based on cath findings. Trending troponins Lipitor 40mg Lisinopril Will discuss with CT surgery team about starting on aspirin. TTE to asses LVEF and any wall motion abnormality. Ecg has some changes compared to [facility] ,but doesn't meet the criteria for Wellens syndrome and she has been pain free from this evening with negative troponins.. 2; Severe symptomatic AR with Bicuspid Aortic Valve; Will get TTE to asses the LVEF,ERO,Aortic rootand Ascending aorta in preparation for Mechanical SAVR after left and right heart cath. 3; SLE and Antiphospholid antibody syndrome(APAS); Will continue on plaquenil and anticoagulation(with heparin/lovenox) once her INR is less than 2 . 4; H/O CVA; Attributing to SLE and APAS ; Therapeutic INR, will get lipid panel and will discuss with the CT surgery team about starting on aspirin. 5; Anxiety and Depression; There is a slight possibility of anxiety adding to her symptoms, will benefit from SSRI with the symptoms of generalized anxiety disorder and depression. 6; Hypothyroidism; Recent diagnosis, will repeat TSH levels and will continue on low dose of levothyroxine. 7; Code status; Wants to be full code. Discussed with the patient and her mother and father in detail about the plan of care . Andrea Stewart MD Provider #: [id number] 05/18/2017 documented in this encounter Miscellaneous Notes * Plan of Care - Sabas Walker RN - 05/29/2017 1:57 PM EST Problem: Patient Care Overview Goal: Plan of Care Review Outcome: Ongoing (Interventions Implemented as Appropriate) 05/28/172141 Plan of Care Review Progress improving Coping/Psychosocial Plan Of Care Reviewed With patient OUTCOME EVALUATION NOTE: OUTCOME SUMMARY: Patient post op day 4 from a mechanical avr is now on room air, climbed stairs, ambulates and had abowel movement PLAN MOVING FORWARD: Cont physical activiy and probable discharge Thursday INDIVIDUALIZED FALL PREVENTION INTERVENTIONS: Patient-specific fall risk factors per assessment: [current deficits]: decond Assistance [level of assistance required for transfers and ambulation]: standby Supervision [direct monitoring required during toileting and ADLs]: Call dowell Surveillance [continuous indirect monitoring]: Hourly rounds Patient-specific fall prevention interventions for sensory deficits provided, if applicable: CPG GOAL OUTCOME EVALUATION: Goal: Individualization & Mutuality Outcome: Ongoing (Interventions Implemented as Appropriate) 05/24/17 2100 05/27/17 0437 05/28/17 0110 Individualization Patient Specific Preferences -- call me Noah -- Mutuality/Individual Preferences What Anxieties, Fears or Concerns Do You Have About Your Health or Care? -- -- Anxious going to fall What Questions Do You Have About Your Health or Care? none -- -- What Information Would Help Us Give You More Personalized Care? just keep me updated -- -- Goal: Fall Prevention-Safe Patient Handling Outcome: Ongoing (Interventions Implemented as Appropriate) 05/28/17 1510 05/28/17 2140 05/29/17 0900 Daily Care Interventions Self-Care Promotion independence encouraged -- -- Delgado Fall Risk History of Falling -- -- 25 Secondary Diagnosis -- -- 15 Ambulatory Aids -- -- 0 Intravenous Therapy/Heparin/Saline Lock -- -- 20 Gait/Transferring -- -- 0 Mental Status -- -- 0 Score -- -- 60 OTHER Delgado Fall Risk -- -- High Restraint Interventions Safety Promotion/Fall Prevention -- -- activity supervised;fall prevention program maintained;nonskid shoes/slippers when out of bed Positioning Body Position -- independent;supine -- Activity Activity Type -- -- ambulated in rowe Activity Assistance Provided -- -- assistance, stand-by Assistive Device Utilized -- -- none Goal: Infection Control Outcome: Ongoing (Interventions Implemented as Appropriate) 05/28/17 2140 Safety Interventions Isolation Precautions standard precautions maintained Infection Prevention rest/sleep promoted;single patient room provided Coping Strategies Supportive Measures active listening utilized;verbalization of feelings encouraged Goal: Discharge Needs Assessment Outcome: Ongoing (Interventions Implemented as Appropriate) 05/28/17 0110 Discharge Needs Assessment Concerns To Be Addressed no discharge needs identified Readmission Within The Last 30 Days no previous admission in last 30 days Equipment Needed After Discharge none Discharge Disposition still a patient Activity/Self Care Review of Systems Equipment Currently Used at Home none Current Health Anticipated Changes Related to Illness none Living Environment Transportation Available family or friend will provide Goal: Interdisciplinary Rounds/Family Conf Outcome: Ongoing (Interventions Implemented as Appropriate) 05/25/17 0258 Interdisciplinary Rounds/Family Conf Participants classification case manager;family;advanced practice nurse;nursing;occupational therapy;patient;physician Problem: Cardiac Surgery (Adult) Goal: Signs and Symptoms of Listed Potential Problems Will be Absent, Minimized or Managed (CardiacSurgery) Signs and symptoms of listed potential problems will be absent, minimized or managed by discharge/transition of care (reference Cardiac Surgery (Adult) CPG). Outcome: Ongoing (Interventions Implemented as Appropriate) 05/28/17 1510 Cardiac Surgery Problems Assessed (Cardiac Surgery) all Problems Present (Cardiac Surgery) pain Problem: Skin Integrity Impairment, Risk/Actual (Adult) Goal: Identify Related Risk Factors and Signs and Symptoms Related risk factors and signs and symptoms are identified upon initiation of Human Response Clinical Practice Guideline (CPG) Outcome: Ongoing (Interventions Implemented as Appropriate) 05/28/17 0110 Skin Integrity Impairment, Risk/Actual Skin Integrity Impairment, Risk/Actual: Related Risk Factors surgery/procedure Goal: Skin Integrity/Wound Healing Patient will demonstrate the desired outcomes by discharge/transition of care. Outcome: Ongoing (Interventions Implemented as Appropriate) 05/28/17 2142 Skin Integrity Impairment, Risk/Actual (Adult) Skin Integrity/Wound Healing making progress toward outcome * Plan of Care - Ailin Oliva PTA - 05/29/2017 1:25 PM EST Problem: Patient Care Overview Goal: Plan of Care Review Outcome: Outcome (s) achieved Date Met: 05/29/17 05/29/17 1409 Plan of Care Review Progress improving Coping/Psychosocial Plan Of Care Reviewed With patient Physical Therapy Assessment Treatment Number PT: 3 Pt seen for functional mobility, strength, endurance and pt education. Pt ambulated 160' around unit with no AD needed and slow gait speed. Ascended/descended 12 stairs with usly-vnlp-mogl technique with no LOB or complaint of SOB, pt has landing after 1 FOS that she reports she can rest on. Performed bed mobility with min assist needed to initiate motion for supine-sit but has her at home to assist. Pt has met PT goals to return home based on ability to safely ambulate without and assistive device, ascend/descend 1 FOS and access to assist for bed mobility until returning to [facility]. Please see the Rehab Evaluation Summaries report for objective data and specifics of today???s session. Pertinent History of Current Problem: S/p mechanical AVR. Pmhx: SLE, lupus anticoagulant, antiphospholipid syndrome, CVA age 21, HTN, HLD, hypothyroid, GERD, JAN, amenorrhea 10 years following uterine ablation Staff Mobility Recommendations: Ambulate 4x/day with no need for AD Precautions/Restrictions: sternal Anticipated Physical Therapy Frequency: 1-3 more visits Anticipated Discharge Disposition: home with assist, home with home health Jennifer Sweeney SPTA Pager: [phone] Inpatient Physical Therapy SPTA observed while treating patient and POC and Rx discussed prior to Rx. Ailin Oliva PTA Pager: [phone] Problem: Acute Rehab Services Goal & Intervention Plan Goal: Bed Mobility Goal Stand Alone Therapy Goal Outcome: Outcome (s) achieved Date Met: 05/29/17 05/27/17 1508 05/29/17 1409 Bed Mobility Goal Bed Mobility Goal, Date Established 05/27/17 -- Bed Mobility Goal, Time to Achieve 5 days -- Bed Mobility Goal, Activity Type supine to sit/sit to supine -- Bed Mobility Goal, [place] Level independent -- Bed Mobility Goal, Outcome Achieved -- goal met Goal: Gait Training Goal Stand Alone Therapy Goal Outcome: Outcome (s) achieved Date Met: 05/29/17 05/27/17 1508 05/29/17 1409 Gait Training Goal Gait Training Goal, Date Established 05/27/17 -- Gait Training Goal, Time to Achieve 5 days -- Gait Training Goal, [place] Level supervision required -- Gait Training Goal, Assist Device (LRD) -- Gait Training Goal, Distance to Achieve 300 ft -- Gait Training Goal, Additional Goal Pt up and down 23 stairs with rail and supervision -- Gait Training Goal, Outcome -- goal met Goal: Physical Therapy Goal Stand Alone Therapy Goal Outcome: Outcome (s) achieved Date Met: 05/29/17 05/27/17 1508 05/29/17 140 Physical Therapy Goal PT Goal, Date Established 05/27/17 -- PT Goal, Time to Achieve 5 days -- PT Goal, Activity Type Pt indep with all sternal precautions with all transfers without cues -- PT Goal, Outcome -- goal met Goal: Goal Transfer Training Stand Alone Therapy Goal Outcome: Outcome (s) achieved Date Met: 05/29/17 05/27/17 1508 05/29/17 1409 Goal Transfer Training Transfer Training Goal, Date Established 05/27/17 -- Transfer Training Goal, Time to Achieve 5 days -- Transfer Training Goal, Activity Type ooi-ny-iapra/hijod-qt-hsd;bww-xb-ueifo/etqwj-sw-syc -- Transfer Train Goal, [place] Level supervision required -- Transfer Training Goal, Assist Device (LRD) -- Transfer Training Goal, Outcome -- goal met * Consult Note - Stephanie Chandra RN - 05/29/2017 10:19 AM EST [facility] Noah Dumont was seen today regarding participation in the outpatient Phase 2 Cardiac Rehabilitation at [facility] . The patient agrees to a referral to this program. The referral will be sent at discharge and the patient should be contacted by the Program within 1- 2 weeks from discharge. * Plan of Care - Devon Clark RN - 05/29/2017 4:10 AM EST Problem: Patient Care Overview Goal: Plan of Care Review Outcome: Ongoing (Interventions Implemented as Appropriate) 05/28/172141 Plan of Care Review Progress improving Coping/Psychosocial Plan Of Care Reviewed With patient OUTCOME EVALUATION NOTE: OUTCOME SUMMARY: Patient had some pain related to surgical site. Was encouraged to take dose of prn pain medication initially declined but eventually took dose with good effect. Continued Heparin gtt overnight without incident will check labs in am. Patient observing sternal precautions and ambulating as tolerated.Patient is otherwise stable and VS are within acceptable limits. PLAN MOVING FORWARD: Continue Heparin/Coumadin bridge, activity as tolerated, treat pain. Discharged when medically stable. INDIVIDUALIZED FALL PREVENTION INTERVENTIONS: Patient-specific fall risk factors per assessment: [current deficits]: Sternal precautions and weakness. Assistance [level of assistance required for transfers and ambulation]: Patient is one assist out of bed. Supervision [direct monitoring required during toileting and ADLs]: Patient may be left unsupervised and requires some staff assistance with ADLs.3 Surveillance [continuous indirect monitoring]: Purposeful rounding and cardiac monitoring. Patient-specific fall prevention interventions for sensory deficits provided, if applicable: [X] N/A CPG GOAL OUTCOME EVALUATION: Goal: Individualization & Mutuality Outcome: Ongoing (Interventions Implemented as Appropriate) 05/24/17 2100 05/27/17 0437 05/28/17 0110 Individualization Patient Specific Preferences -- call me Noah -- Mutuality/Individual Preferences What Anxieties, Fears or Concerns Do You Have About Your Health or Care? -- -- Anxious going to fall What Questions Do You Have About Your Health or Care? none -- -- What Information Would Help Us Give You More Personalized Care? just keep me updated -- -- Goal: Fall Prevention-Safe Patient Handling Outcome: Ongoing (Interventions Implemented as Appropriate) 05/27/17211805/28/17 1510 05/28/172025 Daily Care Interventions Self-Care Promotion -- independence encouraged -- Delgado Fall Risk History of Falling -- -- -- Secondary Diagnosis -- -- -- Ambulatory Aids -- -- -- Intravenous Therapy/Heparin/Saline Lock -- -- -- Gait/Transferring -- -- -- Mental Status -- -- -- Score -- -- -- OTHER Delgado Fall Risk -- -- -- Restraint Interventions Safety Promotion/Fall Prevention -- -- -- Positioning Body Position -- -- -- Activity Activity Type -- -- -- Activity Assistance Provided -- -- assistance, stand-by Assistive Device Utilized standard walker -- -- 05/28/17 214 Daily Care Interventions Self-Care Promotion -- Delgdao Fall Risk History of Falling 25 Secondary Diagnosis 0 Ambulatory Aids 0 Intravenous Therapy/Heparin/Saline Lock 20 Gait/Transferring 0 Mental Status 0 Score 45 OTHER Delgado Fall Risk High Restraint Interventions Safety Promotion/Fall Prevention activity supervised;nonskid shoes/slippers when out of bed Positioning Body Position independent;supine Activity Activity Type activity adjusted per tolerance Activity Assistance Provided -- Assistive Device Utilized -- Goal: Infection Control Outcome: Ongoing (Interventions Implemented as Appropriate) 05/28/17 214 Safety Interventions Isolation Precautions standard precautions maintained Infection Prevention rest/sleep promoted;single patient room provided Coping Strategies Supportive Measures active listening utilized;verbalization of feelings encouraged Goal: Discharge Needs Assessment Outcome: Ongoing (Interventions Implemented as Appropriate) 05/28/17 0110 Discharge Needs Assessment Concerns To Be Addressed no discharge needs identified Readmission Within The Last 30 Days no previous admission in last 30 days Equipment Needed After Discharge none Discharge Disposition still a patient Activity/Self Care Review of Systems Equipment Currently Used at Home none Current Health Anticipated Changes Related to Illness none Living Environment Transportation Available family or friend will provide Goal: Interdisciplinary Rounds/Family Conf Outcome: Ongoing (Interventions Implemented as Appropriate) 05/25/17 0258 Interdisciplinary Rounds/Family Conf Participants classification case manager;family;advanced practice nurse;nursing;occupational therapy;patient;physician Problem: Cardiac Surgery (Adult) Goal: Signs and Symptoms of Listed Potential Problems Will be Absent, Minimized or Managed (CardiacSurgery) Signs and symptoms of listed potential problems will be absent, minimized or managed by discharge/transition of care (reference Cardiac Surgery (Adult) CPG). Outcome: Ongoing (Interventions Implemented as Appropriate) 05/28/17 1510 Cardiac Surgery Problems Assessed (Cardiac Surgery) all Problems Present (Cardiac Surgery) pain Problem: Skin Integrity Impairment, Risk/Actual (Adult) Goal: Identify Related Risk Factors and Signs and Symptoms Related risk factors and signs and symptoms are identified upon initiation of Human Response Clinical Practice Guideline (CPG) Outcome: Ongoing (Interventions Implemented as Appropriate) 05/28/17 0110 Skin Integrity Impairment, Risk/Actual Skin Integrity Impairment, Risk/Actual: Related Risk Factors surgery/procedure Goal: Skin Integrity/Wound Healing Patient will demonstrate the desired outcomes by discharge/transition of care. Outcome: Ongoing (Interventions Implemented as Appropriate) 05/28/172141 Skin Integrity Impairment, Risk/Actual (Adult) Skin Integrity/Wound Healing making progress toward outcome * Plan of Care - Harvey Bahena RN - 05/28/2017 9:46 PM EST Problem: Patient Care Overview Goal: Plan of Care Review Outcome: Ongoing (Interventions Implemented as Appropriate) 05/28/172141 Plan of Care Review Progress improving Coping/Psychosocial Plan Of Care Reviewed With patient OUTCOME EVALUATION NOTE: OUTCOME SUMMARY: Pt ambulated 4x during shift (160 ft each). C/o Abdominal pain, given laxatives and a bomb. 2100 metop held for low sys BP.- consistent with previous measurements. PLAN MOVING FORWARD: C/o CT pathway. Ambulate and move towards D/C home. INDIVIDUALIZED FALL PREVENTION INTERVENTIONS: Patient-specific fall risk factors per assessment: [current deficits]: Sternal precautions, IV sites, ECG wires, running IV meds Assistance [level of assistance required for transfers and ambulation]: SBA Supervision [direct monitoring required during toileting and ADLs]: Independent Surveillance [continuous indirect monitoring]: Telemetry, call dowell inr each, family @ bedside during day Patient-specific fall prevention interventions for sensory deficits provided, if applicable: [X] Yes CPG GOAL OUTCOME EVALUATION: * Plan of Care - Sabas Walker RN - 05/28/2017 2:40 PM EST Problem: Patient Care Overview Goal: Plan of Care Review Outcome: Ongoing (Interventions Implemented as Appropriate) 05/28/17 1013 Plan of Care Review Progress improving Coping/Psychosocial Plan Of Care Reviewed With patient OUTCOME EVALUATION NOTE: OUTCOME SUMMARY: Patient post op day 2 from a mechanical AVR is on pathway. Patient has ambulated unit, tolerating well, Pain controlled, using good sternal precautions. PLAN MOVING FORWARD: Patient should wean off oxygen and have a BM. INDIVIDUALIZED FALL PREVENTION INTERVENTIONS: Patient-specific fall risk factors per assessment: [current deficits]: decond Assistance [level of assistance required for transfers and ambulation]: Standby Supervision [direct monitoring required during toileting and ADLs]: Call dowell Surveillance [continuous indirect monitoring]: Hourly rounds Patient-specific fall prevention interventions for sensory deficits provided, if applicable: CPG GOAL OUTCOME EVALUATION: Goal: Individualization & Mutuality Outcome: Ongoing (Interventions Implemented as Appropriate) 05/24/17209905/27/17 0437 05/28/17 011 Individualization Patient Specific Preferences -- call me Noah -- Mutuality/Individual Preferences What Anxieties, Fears or Concerns Do You Have About Your Health or Care? -- -- Anxious going to fall What Questions Do You Have About Your Health or Care? none -- -- What Information Would Help Us Give You More Personalized Care? just keep me updated -- -- Goal: Fall Prevention-Safe Patient Handling Outcome: Ongoing (Interventions Implemented as Appropriate) 05/27/17211805/28/1710905/28/17 0800 Daily Care Interventions Self-Care Promotion -- independence encouraged;BADL personal objects within reach;BADL personal routines maintained -- Delgado Fall Risk History of Falling -- -- 0 Secondary Diagnosis -- -- 15 Ambulatory Aids -- -- 15 Intravenous Therapy/Heparin/Saline Lock -- -- 20 Gait/Transferring -- -- 10 Mental Status -- -- 0 Score -- -- 60 OTHER Delgado Fall Risk -- -- High Restraint Interventions Safety Promotion/Fall Prevention -- -- activity supervised;fall prevention program maintained;nonskid shoes/slippers when out of bed Positioning Body Position independent -- -- Activity Activity Type activity adjusted per tolerance -- -- Activity Assistance Provided assistance, 1 person -- -- Assistive Device Utilized standard walker -- -- Goal: Infection Control Outcome: Ongoing (Interventions Implemented as Appropriate) 05/27/172118 Safety Interventions Isolation Precautions standard precautions maintained Infection Prevention environmental surveillance performed;equipment surfaces disinfected;rest/sleeppromoted;single patient room provided Coping Strategies Supportive Measures active listening utilized;decision-making supported;positive reinforcement provided;problem solving facilitated;relaxation techniques promoted;self-responsibility promoted;self-reflection promoted;self-care encouraged;verbalization of feelings encouraged Goal: Discharge Needs Assessment Outcome: Ongoing (Interventions Implemented as Appropriate) 05/28/17 0110 Discharge Needs Assessment Concerns To Be Addressed no discharge needs identified Readmission Within The Last 30 Days no previous admission in last 30 days Equipment Needed After Discharge none Discharge Disposition still a patient Activity/Self Care Review of Systems Equipment Currently Used at Home none Current Health Anticipated Changes Related to Illness none Living Environment Transportation Available family or friend will provide Goal: Interdisciplinary Rounds/Family Conf Outcome: Ongoing (Interventions Implemented as Appropriate) 05/25/17 0258 Interdisciplinary Rounds/Family Conf Participants classification case manager;family;advanced practice nurse;nursing;occupational therapy;patient;physician Problem: Cardiac Surgery (Adult) Goal: Signs and Symptoms of Listed Potential Problems Will be Absent, Minimized or Managed (CardiacSurgery) Signs and symptoms of listed potential problems will be absent, minimized or managed by discharge/transition of care (reference Cardiac Surgery (Adult) CPG). Outcome: Ongoing (Interventions Implemented as Appropriate) 05/28/17 0110 Cardiac Surgery Problems Assessed (Cardiac Surgery) all Problems Present (Cardiac Surgery) pain Problem: Skin Integrity Impairment, Risk/Actual (Adult) Goal: Identify Related Risk Factors and Signs and Symptoms Related risk factors and signs and symptoms are identified upon initiation of Human Response Clinical Practice Guideline (CPG) Outcome: Ongoing (Interventions Implemented as Appropriate) 05/28/17 0110 Skin Integrity Impairment, Risk/Actual Skin Integrity Impairment, Risk/Actual: Related Risk Factors surgery/procedure Goal: Skin Integrity/Wound Healing Patient will demonstrate the desired outcomes by discharge/transition of care. Outcome: Ongoing (Interventions Implemented as Appropriate) 05/28/17 0110 Skin Integrity Impairment, Risk/Actual (Adult) Skin Integrity/Wound Healing making progress toward outcome * Plan of Care - Ailin Oliva PTA - 05/28/2017 9:35 AM EST Problem: Patient Care Overview Goal: Plan of Care Review Outcome: Ongoing (Interventions Implemented as Appropriate) 05/28/17 1013 Plan of Care Review Progress improving Coping/Psychosocial Plan Of Care Reviewed With patient Physical Therapy Assessment Treatment Number PT: 2 Pt seen for functional mobility, strength and endurance. Arrived to room with pt on RA (had taken off O2 herself) with SpO2 at 88%. Pt ambulated 2 laps around unit using rolling O2 cart for balance with decreased gait speed and 2L O2. Pt reported no SOB and was moved to 1L O2 upon returning to room. Understands and adheres to sternal precautions. Demonstrated to pt how to get in/out of flat bed while maintaining sternal precautions, pt requested to wait to perform until later in the day with nursing due to fatigue from ambulation. After 5 minutes on 1L O2 at rest SpO2 remained at 95%, pt leftseated in chair with 1L O2. Please see the Rehab Evaluation Summaries report for objective data andspecifics of today???s session. Staff Mobility Recommendations: Ambulate 2-3 laps around unit at a time 3x/day with rolling O2 cart, weaning to no AD. Precautions/Restrictions: sternal, fall, oxygen therapy device and L/min Anticipated Physical Therapy Frequency: 1-3 more visits Anticipated Discharge Disposition: home with assist ALEX Oneil Pager: [phone] Inpatient Physical Therapy SPTA observed while treating patient and POC and Rx discussed prior to Rx. Ailin Oliva PTA Pager: [phone] Problem: Acute Rehab Services Goal & Intervention Plan Goal: Bed Mobility Goal Stand Alone Therapy Goal Outcome: Ongoing (Interventions Implemented as Appropriate) 05/27/17 1508 05/28/17 1013 Bed Mobility Goal Bed Mobility Goal, Date Established 05/27/17 -- Bed Mobility Goal, Time to Achieve 5 days -- Bed Mobility Goal, Activity Type supine to sit/sit to supine -- Bed Mobility Goal, [place] Level independent -- Bed Mobility Goal, Outcome Achieved -- goal ongoing Goal: Gait Training Goal Stand Alone Therapy Goal Outcome: Ongoing (Interventions Implemented as Appropriate) 05/27/17 1508 Gait Training Goal Gait Training Goal, Date Established 05/27/17 Gait Training Goal, Time to Achieve 5 days Gait Training Goal, [place] Level supervision required Gait Training Goal, Assist Device (LRD) Gait Training Goal, Distance to Achieve 300 ft Gait Training Goal, Additional Goal Pt up and down 23 stairs with rail and supervision Goal: Physical Therapy Goal Stand Alone Therapy Goal Outcome: Ongoing (Interventions Implemented as Appropriate) 05/27/17 1508 05/28/17 1013 Physical Therapy Goal PT Goal, Date Established 05/27/17 -- PT Goal, Time to Achieve 5 days -- PT Goal, Activity Type Pt indep with all sternal precautions with all transfers without cues -- PT Goal, Outcome -- goal ongoing Goal: Goal Transfer Training Stand Alone Therapy Goal Outcome: Ongoing (Interventions Implemented as Appropriate) 05/27/17 1508 Goal Transfer Training Transfer Training Goal, Date Established 05/27/17 Transfer Training Goal, Time to Achieve 5 days Transfer Training Goal, Activity Type alx-su-clbhu/aggkj-rw-bvy;epe-ge-tnkqb/eeekv-qu-xxl Transfer Train Goal, [place] Level supervision required Transfer Training Goal, Assist Device (LRD) * Plan of Care - Elidia Meza RN - 05/28/2017 1:23 AM EST Problem: Patient Care Overview Goal: Plan of Care Review Outcome: Ongoing (Interventions Implemented as Appropriate) 05/27/17211805/28/17 0110 Plan of Care Review Progress -- progress towards functional goals is fair Coping/Psychosocial Plan Of Care Reviewed With patient -- OUTCOME EVALUATION NOTE: OUTCOME SUMMARY: No acute complications overnight. Incisional pain treated w/ PRN medications. Patient slept well between care. Ambulated to and from bathroom. Heparin gtt maintained. Patient states she gets short ofbreath when she gets anxious or scared. Otherwise, no complaints of SOB. PLAN MOVING FORWARD: Ambulation, encourage BM INDIVIDUALIZED FALL PREVENTION INTERVENTIONS: Patient-specific fall risk factors per assessment: [current deficits]: Unfamiliar environment, generalized weakness, IVS, telemetry, oxygen, sternal precautions Assistance [level of assistance required for transfers and ambulation]: 1x w/ walker Supervision [direct monitoring required during toileting and ADLs]: SBA Surveillance [continuous indirect monitoring]: Telemetry, hourly rounding, call dowell in reach, roomnear unit station Patient-specific fall prevention interventions for sensory deficits provided, if applicable: yes CPG GOAL OUTCOME EVALUATION: Ongoing Goal: Individualization & Mutuality Outcome: Ongoing (Interventions Implemented as Appropriate) 05/28/17 0110 Mutuality/Individual Preferences What Anxieties, Fears or Concerns Do You Have About Your Health or Care? Anxious going to fall Goal: Fall Prevention-Safe Patient Handling Outcome: Ongoing (Interventions Implemented as Appropriate) 05/27/17211805/28/17 0000 02/22/18 0110 Daily Care Interventions Self-Care Promotion -- -- independence encouraged;BADL personal objects within reach;BADL personal routines maintained Delgado Fall Risk History of Falling 0 -- -- Secondary Diagnosis 15 -- -- Ambulatory Aids 15 -- -- Intravenous Therapy/Heparin/Saline Lock 20 -- -- Gait/Transferring 10 -- -- Mental Status 0 -- -- Score 60 -- -- OTHER Delgado Fall Risk High -- -- Restraint Interventions Safety Promotion/Fall Prevention -- safety round/check completed -- Positioning Body Position independent -- -- Activity Activity Type activity adjusted per tolerance -- -- Activity Assistance Provided assistance, 1 person -- -- Assistive Device Utilized standard walker -- -- Goal: Infection Control Outcome: Ongoing (Interventions Implemented as Appropriate) 05/27/172118 Safety Interventions Isolation Precautions standard precautions maintained Infection Prevention environmental surveillance performed;equipment surfaces disinfected;rest/sleeppromoted;single patient room provided Coping Strategies Supportive Measures active listening utilized;decision-making supported;positive reinforcement provided;problem solving facilitated;relaxation techniques promoted;self-responsibility promoted;self-reflection promoted;self-care encouraged;verbalization of feelings encouraged Goal: Discharge Needs Assessment Outcome: Ongoing (Interventions Implemented as Appropriate) 05/28/17109 Discharge Needs Assessment Concerns To Be Addressed no discharge needs identified Readmission Within The Last 30 Days no previous admission in last 30 days Equipment Needed After Discharge none Discharge Disposition still a patient Activity/Self Care Review of Systems Equipment Currently Used at Home none Current Health Anticipated Changes Related to Illness none Living Environment Transportation Available family or friend will provide Problem: Cardiac Surgery (Adult) Goal: Signs and Symptoms of Listed Potential Problems Will be Absent, Minimized or Managed (CardiacSurgery) Signs and symptoms of listed potential problems will be absent, minimized or managed by discharge/transition of care (reference Cardiac Surgery (Adult) CPG). Outcome: Ongoing (Interventions Implemented as Appropriate) 05/28/17109 Cardiac Surgery Problems Assessed (Cardiac Surgery) all Problems Present (Cardiac Surgery) pain Problem: Skin Integrity Impairment, Risk/Actual (Adult) Goal: Identify Related Risk Factors and Signs and Symptoms Related risk factors and signs and symptoms are identified upon initiation of Human Response Clinical Practice Guideline (CPG) Outcome: Ongoing (Interventions Implemented as Appropriate) 05/28/17109 Skin Integrity Impairment, Risk/Actual Skin Integrity Impairment, Risk/Actual: Related Risk Factors surgery/procedure Goal: Skin Integrity/Wound Healing Patient will demonstrate the desired outcomes by discharge/transition of care. Outcome: Ongoing (Interventions Implemented as Appropriate) 05/28/17 0110 Skin Integrity Impairment, Risk/Actual (Adult) Skin Integrity/Wound Healing making progress toward outcome * Plan of Care - Maribel Mary, PT - 05/27/2017 3:15 PM EST Problem: Patient Care Overview Goal: Plan of Care Review Outcome: Ongoing (Interventions Implemented as Appropriate) 05/27/17 1508 Coping/Psychosocial Plan Of Care Reviewed With patient Physical Therapy Treatment Number PT: 1 Pertinent History of Current Problem: S/p mechanical AVR. Pmhx: SLE, lupus anticoagulant, antiphospholipid syndrome, CVA age 21, HTN, HLD, hypothyroid, GERD, JAN, amenorrhea 10 years following uterine ablation Living Environment Comment: Pt lives with her in an apartment with 23 steps to enter with rail. Pt was indep [employer] without a device. 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 Pt works during the day but son comign to stay to assist upon d/c. Precautions/Restrictions: sternal, fall Precautions Comments: 2L O2 Vital Signs During Session: Heart Rate: 98 BP: 104/44 SpO2: 94 % O2 Flow Rate (L/min): 2 L/min O2 Device: Nasal cannula Pt seen this AM in the [facility] for evaluation. Pt is POD# 2. Pt presents with impaired cough, impairedbreathing mechanics, impaired transfers, impaired gait, new O2 requirements and requires cues for sternal precautions. Pt able to ambulate around [facility] today with 1 assist with vitals WNL's on 2L. Anticipate pt will make gains and be safe for home d/c with family support. Please see the Rehab Evaluation Summaries report for objective data and specifics of today???s session. Staff Mobility Recommendations: Ambulate with nursing 3-4x/daily with 1 assist. Anticipated Physical Therapy Frequency: 1-3 more visits Anticipated Equipment Needs at Discharge: (do not anticipate) Anticipated Discharge Disposition: home with assist MARIBEL MARY, PT Pager: [phone] Inpatient Physical Therapy 2017 PT Evaluation Code Rationale: ?? Diagnosis & Pertinent Co-Morbidities, personal factors, and present illness affecting Plan of Care: Patient Active Problem List Diagnosis Code ??? Depression and anxiety F32.9 ??? Dilated cardiomyopathy--- noted in 2004, improved I42.0 ??? Hypertension I10 ??? Systemic [...] ??? Gross hematuria--- while on heparin R31.0 ?? List of Factors: 0 1-2 3+ x ?? Examination of body system impairments, functional limitations and behaviors, that result in participation restrictions. Addressing 1-2 elements Addressing 3 + elements Addressing 4 + elements x ?? Clinical presentation: See assessment above. Stable/Uncomplicated Evolving/Fluctuating Symptoms Unstable/Unpredictable x ?? Clinical decision making of high complexity based on pt's functional performance as outlined in this evaluation. Problem: Acute Rehab Services Goal & Intervention Plan Goal: Bed Mobility Goal Stand Alone Therapy Goal Outcome: Ongoing (Interventions Implemented as Appropriate) 05/27/17 1508 Bed Mobility Goal Bed Mobility Goal, Date Established 05/27/17 Bed Mobility Goal, Time to Achieve 5 days Bed Mobility Goal, Activity Type supine to sit/sit to supine Bed Mobility Goal, [place] Level independent Goal: Gait Training Goal Stand Alone Therapy Goal Outcome: Ongoing (Interventions Implemented as Appropriate) 05/27/17 1508 Gait Training Goal Gait Training Goal, Date Established 05/27/17 Gait Training Goal, Time to Achieve 5 days Gait Training Goal, [place] Level supervision required Gait Training Goal, Assist Device (LRD) Gait Training Goal, Distance to Achieve 300 ft Gait Training Goal, Additional Goal Pt up and down 23 stairs with rail and supervision Goal: Physical Therapy Goal Stand Alone Therapy Goal Outcome: Ongoing (Interventions Implemented as Appropriate) 05/27/17 1508 Physical Therapy Goal PT Goal, Date Established 05/27/17 PT Goal, Time to Achieve 5 days PT Goal, Activity Type Pt indep with all sternal precautions with all transfers without cues Goal: Goal Transfer Training Stand Alone Therapy Goal Outcome: Ongoing (Interventions Implemented as Appropriate) 05/27/17 1508 Goal Transfer Training Transfer Training Goal, Date Established 05/27/17 Transfer Training Goal, Time to Achieve 5 days Transfer Training Goal, Activity Type xgi-aj-fxqxy/ywvmn-qs-plv;dya-qh-oxevu/kgpfy-dt-jpa Transfer Train Goal, [place] Level supervision required Transfer Training Goal, Assist Device (LRD) * Plan of Care - Asia Deleon RN - 05/27/2017 4:39 AM EST Problem: Patient Care Overview Goal: Individualization & Mutuality Outcome: Ongoing (Interventions Implemented as Appropriate) 05/27/17 0437 Individualization Patient Specific Preferences call me Noah Problem: Cardiac Surgery (Adult) Goal: Signs and Symptoms of Listed Potential Problems Will be Absent, Minimized or Managed (CardiacSurgery) Signs and symptoms of listed potential problems will be absent, minimized or managed by discharge/transition of care (reference Cardiac Surgery (Adult) CPG). 05/27/17436 Cardiac Surgery Problems Assessed (Cardiac Surgery) all Problems Present (Cardiac Surgery) pain;fluid imbalance Able to wean oxygen to 2 liters nc, does not have cpap with her so not weaned lower, using therapepindependently, lung sounds remain diminished, pain well controlled with dilaudid 4 mg po, no nausea, sipping on water, chest tube output wnl, urine output wnl, no use of pacemaker, remains attached at 50, will cap in am, zoll pads removed Problem: Skin Integrity Impairment, Risk/Actual (Adult) Goal: Skin Integrity/Wound Healing Patient will demonstrate the desired outcomes by discharge/transition of care. Outcome: Ongoing (Interventions Implemented as Appropriate) Moving freely in chair, agrees to try walk later this shift, no pressure ulcer, chest incision bruised but well approximated * OR Attestation - Kuldeep Conner MD - 05/25/2017 2:48 PM EST Attestation: Case Date: 05/25/2017 I performed this procedure without the involvement of a resident. Kuldeep Conner MD 05/25/2017 * Brief Op Note - Kuldeep Conner MD - 05/25/2017 2:44 PM EST Brief Operative Note Patient Name: Noah Dumont : [id number] MR#: [id number] Case Date: 05/25/2017 Surgeon: Surgeon(s) and Role: * Kuldeep Conner MD - Primary * Carmelo Manzo PA - Physician Print Shop Chief Clerk Preoperative diagnosis: ai Postoperative diagnosis: ai Aortic valve replacement 27mm mechanical valve Anesthesia: General Findings: bicuspid valve, no leaks other than washing jets, function unchanged Complications: none Estimated Blood Loss: * No values recorded between 05/25/2017 11:37 AM and 05/25/2017 2:34 PM * Specimens removed during surgery: Order Name Source Comment Collection Info Order Time SPECIMEN TO PATHOLOGY AI Aortic valve/leaflets No 05/25/2017 12:28 PM Time removed from patient: 12:28 PM Fluids: Intraprocedure Crystalloid Total None PRBCs: none (See Anesthesia Record/Report for Other Blood Products) Urine Output: 600 mL Drains: 2 med tubes Disposition: taken directly to the ICU, intubated and in a critical condition. Condition: doing well without problems (Please see the Surgical Encounter Summary for any Implant and Specimen details pertinent to this patient.) Infection Bundle used? No * Op Note - Kuldeep Conner MD - 05/25/2017 9:38 AM EST 05/26/2017 Noah Dumont 1970 [id number] Preoperative Diagnosis: Symptomatic aortic regurgitation Postoperative Diagnosis: Symptomatic aortic regurgitation Procedure: Aortic valve replacement: Mechanical 27 mm Surgeon: Kuldeep Conner M.D. Print Shop Chief Clerk: Delfin LOPEZ Anesthesia: General endotracheal anesthesia Drains: Two mediastinal tubes Pacing Wires: Two A-wires, two V-wires. EBL: 200 mL Findings: bicuspid valve, no perivlave leaks, nl function of valve Procedure: Patient was taken to the operating room. A right radial A-line placed and general endotracheal anesthesia. All the proper lines and monitors were placed by anesthesia. The patient was thenprepped and draped in the normal sterile fashion. An incision was made on the chest short of the xiphoid and up to the angle of Adin. The subcutaneous tissue was cauterized down to the sternum. The sternal saw was used to divide the sternum along the midline. Bone wax was used on the marrow and cautery on the sternal edges. Two antibiotic-soaked towels were used to bumper the sternum. The sternal retractor was used to open the sternum. The overlying pericardium was opened in an inverse-T fashion and hung to the edge of the sternal retractor. Full-dose heparin was given. The aorta was cannulated. The right atrium had the venous cannula placed through the IVC. A retrograde was placed through the right atrium into the coronary sinus. The antegrade was place mid ascending aorta which also doubled as the root vent. With the ACT above 450 we went on bypass. The PA and aorta were . The aorta was cross clamped and the heart was arrested with cold blood cardioplegia antegrade and retrograde. CO2 insufflated the field and the aorta was opened in anoblique fashion. The valve was removed sharply with scissors and annulus debrided with pituitary rongeurs. The ventricle and root were irrigated with cold saline. The valve annulus was sized and a valve was chosen. V to A sutures with pledgets were placed around the annulus then through the valve which was seated and then tied down. The replacement was inspected and found to be satisfactory. The aorta was then closed with two layers of 5.0 prolene. At this point, hotshots were given. The heart began beating in a sinus rhythm. The crossclamp was removed. The heart was allowed re-perfuse. The retrograde was removed and oversewn; so was the antegrade. An angled chest tube was placed behind the heart. The lungs were re-inflated. After a period ofrewarming and allowing the heart to re-perfuse, the valve was tested and the heart was de- aired. Wethen from bypass. The venous cannula was removed and the pursestring was tied down and oversewn. Protamine was given. The aortic cannula was removed. Both pursestrings were tied down and oversewn. We had no further bleeding. A straight chest tube was placed in front of the heart. Vanco paste was applied to the sternum. Interrupted steel cables were used to close the chest, several layers of Vicryl, and a 4-0 Monocryl were used to close the overlying soft tissue. Glue and clean dry sterile dressings were applied. The patient was transported to the CV on levo. All counts were correct. * Plan of Care - Liv Valdivia RN - 05/25/2017 3:04 AM EST Problem: Patient Care Overview Goal: Plan of Care Review Outcome: Ongoing (Interventions Implemented as Appropriate) 05/25/17 0258 Plan of Care Review Progress no change Coping/Psychosocial Plan Of Care Reviewed With patient;spouse OUTCOME EVALUATION NOTE: OUTCOME SUMMARY: BP continue to be soft, heparin gtt maintained at 900, normal Aghg20m x2, per MD. Urine continues to be racked, urine consistently dark red. PRN ativan given before pt went to sleep. Around 0400, pt reported nausea, PRN pepto given with good effect. Hibiclens completed for 2nd AVR today. PLAN MOVING FORWARD: 2nd case AVR today INDIVIDUALIZED FALL PREVENTION INTERVENTIONS: Patient-specific fall risk factors per assessment: [current deficits]: Tele leads, Heparin gtt, generalized weakness Assistance [level of assistance required for transfers and ambulation]: IND Supervision [direct monitoring required during toileting and ADLs]: INd Surveillance [continuous indirect monitoring]: Tele, purposeful rounding Patient-specific fall prevention interventions for sensory deficits provided, if applicable: [X] No CPG GOAL OUTCOME EVALUATION: Ongoing Goal: Individualization & Mutuality 05/24/17 2100 Mutuality/Individual Preferences What Anxieties, Fears or Concerns Do You Have About Your Health or Care? afraid something bad will happen What Questions Do You Have About Your Health or Care? none What Information Would Help Us Give You More Personalized Care? just keep me updated Goal: Fall Prevention-Safe Patient Handling 05/24/17192405/24/17 2200 Delgado Fall Risk History of Falling 0 -- Secondary Diagnosis 15 -- Ambulatory Aids 0 -- Intravenous Therapy/Heparin/Saline Lock 20 -- Gait/Transferring 0 -- Mental Status 0 -- Score 35 -- OTHER Delgado Fall Risk Med -- Restraint Interventions Safety Promotion/Fall Prevention activity supervised;nonskid shoes/slippers when out of bed;safety round/check completed;fall prevention program maintained -- Positioning Body Position independent -- Activity Activity Type -- ambulated in rowe Activity Assistance Provided -- independent Assistive Device Utilized -- none Goal: Infection Control 05/24/171924 Safety Interventions Isolation Precautions standard precautions maintained Infection Prevention rest/sleep promoted;single patient room provided Coping Strategies Supportive Measures active listening utilized;self-care encouraged;verbalization of feelings encouraged;positive reinforcement provided Goal: Discharge Needs Assessment 05/18/17 0314 05/24/17 2100 Discharge Needs Assessment Concerns To Be Addressed no discharge needs identified -- Readmission Within The Last 30 Days no previous admission in last 30 days -- Equipment Needed After Discharge none -- Discharge Disposition still a patient -- Activity/Self Care Review of Systems Equipment Currently Used at Home none -- Current Health Anticipated Changes Related to Illness none -- Living Environment Transportation Available -- family or friend will provide Goal: Interdisciplinary Rounds/Family Conf 05/25/17 0258 Interdisciplinary Rounds/Family Conf Participants classification case manager;family;advanced practice nurse;nursing;occupational therapy;patient;physician * Consult Note - Alfonso Casey MD - 05/24/2017 4:34 PM EST UROLOGY CONSULTATION H&P I have been asked to see the patient by Dr. ADAMS, JEFF SLOAN BRUCE W for evaluation and recommendations of hematuria. HPI: Noah Dumont is a 47 y.o. year old female with a PMH of CVA, lupus, anti- phospholipid antibody syndrome, and cardiomyopathy who is admitted to the Cardiology service with plans for AVR tomorrow. She has been on coumadin at home and here is on a heparin infusion in preparation for her valve replacement. She began having gross hematuria three days ago. It was originally 'grape' colored and nowis light red. There are no clots. She has no pain, no dysuria. She has never had this before. She has no Urologic history; she has never had stones or any bladder/kidney issues. She has had a few UTIs but none lately. She smoked remotely in high school but was never a regular tobacco user. Past Medical History Past Medical History: Diagnosis Date ??? Antiphospholipid antibody syndrome ??? Anxiety ??? Cerebrovascular accident ??? Chest pain 04/01/2012 ??? CHF (congestive heart failure) ??? Depression ??? FATIMA (dyspnea on exertion) 04/01/2012 ??? H/O total knee replacement 04/01/2012 ??? Hypertension ??? Migraine ??? JAN (obstructive sleep apnea) ??? Osteoporosis 04/01/2012 ??? Osteoporosis ??? SLE (systemic lupus erythematosus) Past Surgical History Past Surgical History: Procedure Laterality Date ??? DILATION AND CURETTAGE OF UTERUS ??? JOINT REPLACEMENT ??? LEEP ??? MOUTH SURGERY ??? TUBAL LIGATION ??? TUBAL LIGATION Social History Social History Social History ??? Marital status: Spouse name: N/A ??? Number of children: N/A ??? Years of education: N/A Occupational History ??? Not on file. Social History Main Topics ??? Smoking status: Former Smoker Quit date: 10/22/2007 ??? Smokeless tobacco: Never Used ??? Alcohol use No ??? Drug use: No ??? Sexual activity: Not on file Comment: Deferred Other Topics Concern ??? Not on file Social History Narrative Family History Family History Problem Relation Age of Onset ??? Coronary Artery Disease Father Biological father Grandfather had prostate cancer; no other urologic family history Allergies Allergies Allergen Reactions ??? Tramadol Upset stomach Home Medications Lovenox Coumadin Plaquenil Review of Systems ROS: As above and GEN: No fevers, chills, malaise, night sweats NEURO: No headache, change in vision CARDS: See HPI PULM: No SOB, URI GI: No nausea, vomiting, constipation, diarrhea : See HPI MSK: No back/spine pain ENDO: See HPI SKIN: No new rashes EXT: No numbness/tingling in extremities, No swelling EXAMINATION: Temp: [36.5 ??C (97.7 ??F)-36.8 ??C (98.2 ??F)] Heart Rate: [66-80] Resp: [18-20] BP: (104-127)/(27-36) I/O last 3 completed shifts: In: 2100 [P.O.:1620; I.V.:480] Out: 2950 [Urine:2950] I/O this shift: In: 480 [P.O.:480] Out: 1450 [Urine:1450] General: Oriented to person, place and time. NAD. HEENT: No cervical lymphadenopathy Cardio: Regular rate and rhythm Pulm: Non labored breathing Abdomen: benign without masses, rebound, guarding, or tenderness. No CVA tenderness. Musculoskeletal: good strength in bilateral upper and lower extremities Neurologic: grossly normal EXT: moves all 4, no edema, no calf tenderness Labs Recent Labs 05/24/17 0358 05/23/17 0050 05/22/17 0546 WBC 6.4 7.5 8.0 HGB 12.5 12.4 13.0 HCT 35.0* 34.9* 36.4 PLATELET 163 163 168 NA 141 141 143 K 4.3 4.0 4.5 CL 103 102 103 CO2 25 26 25 BUN 18 22* 18 CREATININE 0.86 0.83 0.90 INR -- 1.2* 1.2* UA: positive for RBC Imaging: none relevant Assessment: Noah Dumont is a 47 y.o. female with her first episode of gross hematuria in the setting of anti-coagulation. Given the active anti-coagulation this episode may resolve, however it still does notexplain her hematuria. In this settings we recommend allowing her to recover from her acute illnessand then we will see her in clinic for a full hematuria work-up. I discussed all of this with her and I also discussed the full work-up which would include a CT Urogram and office cystoscopy. Recommendations - Continue to let patient void independently; OK to place veloz in OR and then remove per primary team - Daily hemograms - Rack urine (save samples in specimen cups, with date/time, in restroom so we can monitor change in amount of blood over time) Please call us if she starts passing clots larger than a quarter size or if she is unable to void. We will continue to follow. I have discussed the findings and plans with Dr. Siegel. Associated attestation - Alvaro Siegel MD - 05/26/2017 12:28 PM EST I have seen the patient and reviewed the resident's above history and I agree with the details as written. The assessment and plan were formulated in discussion with me and I agree with them as documented. I discussed the significance of gross hematuria and typical evaluation with the patient. Her urine is clearing and she has more pressing issues currently so I will plan to see her in the clinic with a CTU and cystoscopy to complete her work-up. I answered her questions to the best of my ability. * Plan of Care - Alma Garcia RN - 05/24/2017 4:21 PM EST Problem: Patient Care Overview Goal: Plan of Care Review Outcome: Ongoing (Interventions Implemented as Appropriate) 05/21/17 0648 05/24/17 0900 Plan of Care Review Progress no change -- Coping/Psychosocial Plan Of Care Reviewed With -- patient OUTCOME EVALUATION NOTE: OUTCOME SUMMARY: Noah up and ambulating throughout unit. No complaints today, some stomach discomfort. Still havingdark red urine, hematology in to see patient. Heparin gtt infusing per new protocol. NPO at midnight for 2nd case AVR in AM. Friends and family in to see patient. Will continue to monitor. 18:30- Per Dr. Wong reduce heparin to 900 units/hr PLAN MOVING FORWARD: 2nd case AVR on Thursday INDIVIDUALIZED FALL PREVENTION INTERVENTIONS: Patient-specific fall risk factors per assessment: [current deficits]: PIVs, tele Assistance [level of assistance required for transfers and ambulation]: Independent Supervision [direct monitoring required during toileting and ADLs]: Eyes on Surveillance [continuous indirect monitoring]: Call dowell within reach, telemetry, purposeful nurse rounding Patient-specific fall prevention interventions for sensory deficits provided, if applicable: Yes CPG GOAL OUTCOME EVALUATION: * Consult Note - Veena Dyer MD - 05/24/2017 3:00 PM EST Images from the original note were not included. Hematology Consult Noah Dumont 1970 [id number] Consult: preop anticoagulation, requested by Cardiac Surgery HPI: Noah Dumont is a 47 y.o. female with a history of CVA, SLE and positive phospholipid antibodies She has abdominal pain for 3 days. It is midepigastrium. She had gerd in the past and took a ppi but has not taken it since February. She feels this is a different then her usual acid reflux she getsfrom time to time when she eats certain food. This pain is constant and 'gnawing.' She is being given pepto for it and this is not helping. It is a 5/10 at present. The first night it happened was a 10/10. She has gross blood in her urine. She just took a shower and without attempting to urinate she had blood coming out and running down her leg. She last had a menstrual period 9-10 years ago (had a cervical ablation for heavy uterine bleeding). Over the last 3 days since this has started, her urine is more bloody. She is not constipated. She has been moving her bowels. Her stool is dark brown without blood. She has headaches and is on tylenol. She is on plaquenil, acei, mvi, ativan, levothyroxine. She is not on asa at home. The last time she was on it was years ago after a CHF exacerbation. She has no numbness, tingling, bone pain, fever, chills, heartburn, sore throat, vision changes, sob, dysuria, at present. She has bruising on her arms from blood draws and bruises easily when she is on coumadin. She has her INR checked weekly; she never has a steady INR level and they can go from 1.7 to almost 3 as far as she can recall (she does not have her paper here). She is anxious about surgery tomorrow but feels well supported. Past Medical & Surgical History: Past Medical History: Diagnosis Date ??? Antiphospholipid antibody syndrome ??? Anxiety ??? Cerebrovascular accident ??? Chest pain 04/01/2012 ??? CHF (congestive heart failure) ??? Depression ??? FATIMA (dyspnea on exertion) 04/01/2012 ??? H/O total knee replacement 04/01/2012 ??? Hypertension ??? Migraine ??? JAN (obstructive sleep apnea) ??? Osteoporosis 04/01/2012 ??? Osteoporosis ??? SLE (systemic lupus erythematosus) Past Surgical History: Procedure Laterality Date ??? DILATION AND CURETTAGE OF UTERUS ??? JOINT REPLACEMENT ??? LEEP ??? MOUTH SURGERY ??? TUBAL LIGATION ??? TUBAL LIGATION Allergies: Allergies Allergen Reactions ??? Tramadol Upset stomach Family History: Family History Problem Relation Age of Onset ??? Coronary Artery Disease Father Biological father Social History: Social History Social History ??? Marital status: Spouse name: N/A ??? Number of children: N/A ??? Years of education: N/A Occupational History ??? Not on file. Social History Main Topics ??? Smoking status: Former Smoker Quit date: 10/22/2007 ??? Smokeless tobacco: Never Used ??? Alcohol use No ??? Drug use: No ??? Sexual activity: Not on file Comment: Deferred Other Topics Concern ??? Not on file Social History Narrative Review of systems: As above Physical Exam: BP (!) 106/33 Pulse 66 Temp 36.8 ??C (98.2 ??F) (Oral) Resp 18 Ht 162.6 cm (5' 4) Wt 71.8 kg (158 lb 4.6 oz) SpO2 94% BMI 27.17 kg/m2 Gen: Patient of apparent stated age, well nourished, well developed, awake, alert, NAD, pleasant, forthcoming Neck: Supple CV: + S1, S2, RRR, she has a systolic murmur 3/6 heard best at the upper sternal border but auscultated at the apex as well and I can hear a diastolic murmur 2-3/6 Resp: CTA B/L in anterior and posterior lung zheng Abd: normoactive bowel sounds, soft, nondistended, ttp in the midepigastrium without rebound or guarding Ext: No edema. No bony deformity Neuro: EOMI, follows commands, sensation intact bilaterally, muscle strength equal in upper and lower extremities, gait normal Labs: Recent Results (from the past 24 hour(s)) APTT Result Value Ref Range PTT 111 (H) 25 - 35 sec APTT Result Value Ref Range PTT 122 (H) 25 - 35 sec BMP w/fasting Glucose Result Value Ref Range Glucose Fasting 93 65 - 99 mg/dL BUN 18 8 - 18 mg/dL Creatinine 0.86 0.70 - 1.20 mg/dL Sodium 141 135 - 145 mmol/L Potassium 4.3 3.5 - 5.0 mmol/L Chloride 103 98 - 107 mmol/L CO2 25 22 - 31 mmol/L Anion Gap 13 5 - 15 mmol/L Calcium 9.4 8.5 - 10.5 mg/dL Estimated GFR >60 >=60 Hemogram Result Value Ref Range WBC 6.4 4.0 - 9.5 x10(3)/mcL RBC 3.82 (L) 4.00 - 5.21 x10(6)/mcL Hemoglobin 12.5 11.7 - 15.5 gm/dL Hematocrit 35.0 (L) 35.7 - 45.8 % MCV 91.6 82.6 - 94.4 fL MCH 32.7 (H) 27.1 - 32.0 pg MCHC 35.7 (H) 31.7 - 35.0 gm/dL Platelets 163 145 - 357 x10(3)/mcL RDWSD 41.9 37.0 - 46.0 fL RDWCV 12.7 11.5 - 14.1 % MPV 11.2 7.6 - 12.9 fL nRBC % Auto 0.0 % nRBC Abs Auto 0.000 0.000 - 0.000 x10(3)/mcL Differential, Automated Result Value Ref Range Neutrophils % 67.1 % Neutr Abs (ANC) 4.27 1.70 - 6.10 x10(3)/mcL Lymphocytes % 20.8 % Lymphocytes Abs 1.3 0.9 - 3.2 x10(3)/mcL Monocytes % 7.5 % Monocyte Abs 0.5 0.3 - 0.9 x10(3)/mcL Eosinophils % 3.9 % Eosinophils Abs 0.2 0.0 - 0.4 x10(3)/mcL Basophils % 0.5 % Basophils Abs 0.0 0.0 - 0.1 x10(3)/mcL Immature Gran % 0.20 % Poonam Gran Abs 0.01 0.00 - 0.04 x10(3)/mcL APTT Result Value Ref Range PTT 126 (H) 25 - 35 sec Component Value Date/Time SPGRAVITYUA 1.010 05/22/2017 1514 PHUADIP 6.0 05/22/2017 1514 PROTEINUADIP 30 (A) 05/22/2017 1514 GLUCOSEU Negative 05/22/2017 1514 KETONESUA Negative 05/22/2017 1514 UROBILIUADIP Normal 05/22/2017 1514 BLOODUADIP Large (A) 05/22/2017 1514 NITRATEUA Negative 05/22/2017 1514 LEUKOESTERUA Negative 05/22/2017 1514 WBCUA 2 05/22/2017 1514 BILIRUBINUA Negative 05/22/2017 1514 Assessment and Plan: Noah Dumont is a 47 y.o. with antiphospholipid syndrome and prior CVA presenting for AVR scheduled tomorrow. She underwent cath for chest pain and this revealed normal coronaries. Three days ago she developed gross hematuria and epigastric pain which are both ongoing. Last menses about 9 years prior. For further details of her APS workup please refer to Dr. Hills's comprehensive consultation note on 05/13/17. From her visit, the following studies were obtained and resulted: These indicate that she has antiphospholipid syndrome with a positive lupus anticoagulant and a high positive beta 2 glycoprotein and cardiolipin titer. Her triple positive antiphospholipid antibody profile is associated with an increased risk for thrombosis. ? Given her antiphospholipid syndrome, Noah will normally will have an elevated PTT. Thus, we cannotuse PTT levels to accurately monitor the heparin gtt. In fact, the PTT level can be within the normal range when she is actually sub- therapeutic on heparin. Would recommend monitoring anti Xa levels (and not PTT). Concerned that she has ongoing hematuria x3 days on heparin which she reports is worsening and is planned for OR intervention tomorrow. If her hematuria were to worsen post-op after valve replacementit would likely require interruption of ac on the background of a new valve and her high risk for thrombosis from APS. I examined her urine in the restroom and it is gross hematuria. Would recommend a Urology consult. Her UA has large blood but it does not appear to be infected. Would check one ACT level when she is in the OR and and then correlate it with the anti Xa level (she has strong LA). If ACT about the same as the anti Xa level then can use this as a marker for anticoagulation. Per Dr. Hills's note: IF, however, she has a particularly strong LA, then correlating the ACT with the anti-Xa level at least once will be reasonable to ensure that the ACT is not falsely high. Normally, we aim for anti Xa levels 0.3 to 0.7 . At present we are the higher end of normal at 0.66. Given she is having gross hematuria, would recommend to aim closer to 0.5. The team has ordered the anti Xa protocol. We went over the protocol with the team and her nurse. Would recommend discontinuing aspirin if there is not a clear indication for it. I suspect it is causing upper GI irritation and her abdominal pain. Noah was not on aspirin prior to the hospitalization. Her antiphospholipid studies were already drawn and resulted showing strongly positive results. There is no need to repeat these labs. Please cancel these orders. We will follow along with you. Patient seen and discussed with Dr. Manisha Rosas M.D., M.S. Hematology & Oncology Fellow Pager: [phone] +*+*+*+*+*+*+*+*+*+*+*+*+*+*+*+*+*+*+*+*+*+*+*+*+*+*+*+*+*+*+*+*+*+*+*+*+*+* Thrombosis Attending Physician I have independently interviewed and examined this patient and have personally reviewed the relevant clinical, laboratory and radiological data with Dr. Rosas, Hematology/Oncology Fellow. Please refer to the comprehensive consultation note above, with which I concur, for complete details of our enc ounter with this patient. I have reviewed and endorse the recommendations as outlined and have madeany additions/corrections below. Ms. Dumont is a 47 year old woman with remote history of CVA, SLE and antiphospholipid syndrome onchronic anticoagulation with warfarin who was admitted for acute chest pain. She underwent cardiac catheterization which was normal. She also has symptomatic aortic valve disease that is scheduled for tomorrow. We were consulted for anticoagulation management. During this hospitalization, her heparin drip was started when her INR <2 and aPTT was used to monitor heparin drip. Because of the presence of lupus anticoagulant, aPTT will be falsely elevated. We recommended to use anti-Xa to monitor heparin drip. I am concerned of her significant hematuria. She reported progressively worsening of her hematuria over the last 3 days. Today she noticed angelito hematuria (dark red with clots). She denies any previous history hematuria in the past. I recommend to address her hematuria before her surgery. If her hem aturia worsens after her valve surgery, this will complicate anticoagulation management. She is at high risk for thrombosis because of her known antiphospholipid syndrome. We want to avoid interruption of anticoagulation post valve surgery. Currently her anti-Xa is at higher end (0.66) (goal between 0.3- 0.7). If her hematuria persists, I recommend to reduce heparin drip and aim closer to 0.5 for now. I also recommend to stop aspirin if it is not indicated from cardiology standpoint. Her cardiac cath was normal. This may help her bleeding and also her epigastric pain (also for 3 days). She denies melena or BRBPR. As per Dr. Hills's recommendation, we recommend to check ACT once and correlate with anti-Xa at least once before surgery because LA can cause falsely elevated ACT as well. PLAN 1. Switch heparin protocol order set to Adult Anti Xa heparin protocol order set - using anti-xa tomonitor heparin drip. (goal between 0.3-0.7). I would aim her anti-Xa level at closer to 0.5 for now given her ongoing hematuria 2. Recommend to stop aspirin if not indicated from surgical standpoint 3. Consider PPI for epigastric pain 4. Need to address hematuria before surgery. Encourage hydration 5. She does not need a repeat lab for antiphospholipid syndrome. The lab was done on 05/13/2017 and confirmed antiphospholipid syndrome. I took the liberty to cancel the lab testing. 6. Consider checking ACT and correlate with anti-Xa at least once before surgery to ensure that herACT is not falsely high. 7. Please also see Dr. Hills's recommendation from 05/13/2017 Will continue to follow with you. I have personally discussed her case with Dr. Bienvenido Wong. Veena Dyer MD * Plan of Care - Kori Estrada RN - 05/24/2017 2:58 AM EST Problem: Patient Care Overview Goal: Plan of Care Review Outcome: Ongoing (Interventions Implemented as Appropriate) 05/21/1748 05/23/171999 Plan of Care Review Progress no change -- Coping/Psychosocial Plan Of Care Reviewed With -- patient OUTCOME EVALUATION NOTE: OUTCOME SUMMARY: VSS, pt c/o of upset stomach, PRN Pepto-bismol given with good effect. Urine remained red, no pain or discomfort with urination. Heparin gtt infusing, bleeding precautions maintained. PLAN MOVING FORWARD: Cont to monitor urine and labs, surgery on Thursday INDIVIDUALIZED FALL PREVENTION INTERVENTIONS: Patient-specific fall risk factors per assessment: unfamiliar environment, IV pole Assistance Independent Supervision Call dowell within reach. Rings appropriately. Surveillance Purposeful hourly rounding, telemetry. Goal: Fall Prevention-Safe Patient Handling Outcome: Ongoing (Interventions Implemented as Appropriate) 05/23/171999 Delgado Fall Risk History of Falling 0 Secondary Diagnosis 15 Ambulatory Aids 0 Intravenous Therapy/Heparin/Saline Lock 20 Gait/Transferring 0 Mental Status 0 Score 35 OTHER Delgado Fall Risk Med Restraint Interventions Safety Promotion/Fall Prevention activity supervised;fall prevention program maintained;nonskid shoes/slippers when out of bed;safety round/check completed Positioning Body Position independent Activity Activity Type activity adjusted per tolerance;ambulated in rowe Activity Assistance Provided independent Assistive Device Utilized none Goal: Infection Control Outcome: Ongoing (Interventions Implemented as Appropriate) 05/23/171999 Safety Interventions Isolation Precautions standard precautions maintained Infection Prevention environmental surveillance performed;rest/sleep promoted;single patient room provided Coping Strategies Supportive Measures active listening utilized;decision-making supported;positive reinforcement provided;self-care encouraged;verbalization of feelings encouraged * Plan of Care - Alma Garcia RN - 05/23/2017 3:25 PM EST Problem: Patient Care Overview Goal: Plan of Care Review Outcome: Ongoing (Interventions Implemented as Appropriate) 05/21/17 0648 05/23/17 0900 Plan of Care Review Progress no change -- Coping/Psychosocial Plan Of Care Reviewed With -- patient OUTCOME EVALUATION NOTE: OUTCOME SUMMARY: Noah had a good day. Some complaints of a headache and chest discomfort relieved with PRN tylenol.Heparin gtt infusing per protocol. Dark red urine noted through shift, denies any painful urination, team made aware. Friends and family at bedside throughout day. Will continue to monitor. PLAN MOVING FORWARD: AVR Thursday INDIVIDUALIZED FALL PREVENTION INTERVENTIONS: Patient-specific fall risk factors per assessment: [current deficits]: PIVs, tele wires Assistance [level of assistance required for transfers and ambulation]: Independent Supervision [direct monitoring required during toileting and ADLs]: Eyes on Surveillance [continuous indirect monitoring]: Call dowell within reach, purposeful nurse rounding, telemetry Patient-specific fall prevention interventions for sensory deficits provided, if applicable: Yes CPG GOAL OUTCOME EVALUATION: * Plan of Care - Kori Estrada RN - 05/23/2017 3:30 AM EST Problem: Patient Care Overview Goal: Plan of Care Review Outcome: Ongoing (Interventions Implemented as Appropriate) 05/21/17 0648 05/22/172005 Plan of Care Review Progress no change -- Coping/Psychosocial Plan Of Care Reviewed With -- patient OUTCOME EVALUATION NOTE: OUTCOME SUMMARY: VSS, pt c/o of abdominal discomfort, PRN acetaminophen given with good effect. Teacolor urine continued overnight. Heparin gtt infusing per protocol. PLAN MOVING FORWARD: Cont to monitor urine and labs, CT surgery planned for Thursday INDIVIDUALIZED FALL PREVENTION INTERVENTIONS: Patient-specific fall risk factors per assessment: Unfamiliar environment, IV pole Assistance Independent Supervision Call dowell within reach. Rings appropriately. Surveillance Purposeful hourly rounding, telemetry. Goal: Fall Prevention-Safe Patient Handling Outcome: Ongoing (Interventions Implemented as Appropriate) 05/22/172005 Delgado Fall Risk History of Falling 0 Secondary Diagnosis 15 Ambulatory Aids 0 Intravenous Therapy/Heparin/Saline Lock 20 Gait/Transferring 0 Mental Status 0 Score 35 OTHER Delgado Fall Risk Med Restraint Interventions Safety Promotion/Fall Prevention activity supervised;fall prevention program maintained;nonskid shoes/slippers when out of bed;safety round/check completed Positioning Body Position independent Activity Activity Type activity adjusted per tolerance;ambulated in rowe Activity Assistance Provided independent Assistive Device Utilized none Goal: Infection Control Outcome: Ongoing (Interventions Implemented as Appropriate) 05/22/172005 Safety Interventions Isolation Precautions standard precautions maintained Infection Prevention environmental surveillance performed;rest/sleep promoted;single patient room provided Coping Strategies Supportive Measures active listening utilized;decision-making supported;positive reinforcement provided;verbalization of feelings encouraged * Plan of Care - Alma Garcia RN - 05/22/2017 4:00 PM EST Problem: Patient Care Overview Goal: Plan of Care Review Outcome: Ongoing (Interventions Implemented as Appropriate) 05/21/17 0648 05/22/17 0900 Plan of Care Review Progress no change -- Coping/Psychosocial Plan Of Care Reviewed With -- patient OUTCOME EVALUATION NOTE: OUTCOME SUMMARY: Noah had a good day, independently ambulating in rowe. Heparin gtt infusing per protocol. Noah very tearful and anxious this morning, one dose of Ativan given with good relief. Brown/straw urine this afternoon, UA sent, see results review. Family and friends at bedside throughout shift. Will continue to monitor. PLAN MOVING FORWARD: AVR thursday INDIVIDUALIZED FALL PREVENTION INTERVENTIONS: Patient-specific fall risk factors per assessment: [current deficits]: PIVs, tele Assistance [level of assistance required for transfers and ambulation]: Independent Supervision [direct monitoring required during toileting and ADLs]: Eyes on Surveillance [continuous indirect monitoring]: Call dowell within reach, telemetry, purposeful nurse rounding Patient-specific fall prevention interventions for sensory deficits provided, if applicable: Yes CPG GOAL OUTCOME EVALUATION: * Plan of Care - Kori Estrada RN - 05/22/2017 4:11 AM EST Problem: Patient Care Overview Goal: Plan of Care Review Outcome: Ongoing (Interventions Implemented as Appropriate) 05/21/17 0648 02/15/18 2026 Plan of Care Review Progress no change -- Coping/Psychosocial Plan Of Care Reviewed With -- patient OUTCOME EVALUATION NOTE: OUTCOME SUMMARY: VSS, pt c/o of burning in her stomach, PRN Pepto bismol given with good effect. Heparin gtt infusing, bleeding precautions maintained. PLAN MOVING FORWARD: Surgery planned for Thursday INDIVIDUALIZED FALL PREVENTION INTERVENTIONS: Patient-specific fall risk factors per assessment: IV pole and tubing Assistance Independent Supervision Call dowell within reach. Rings appropriately. Surveillance Purposeful hourly rounding, telemetry. Goal: Fall Prevention-Safe Patient Handling Outcome: Ongoing (Interventions Implemented as Appropriate) 05/21/172025 Delgado Fall Risk History of Falling 0 Secondary Diagnosis 15 Ambulatory Aids 0 Intravenous Therapy/Heparin/Saline Lock 20 Gait/Transferring 0 Mental Status 0 Score 35 OTHER Delgado Fall Risk Med Restraint Interventions Safety Promotion/Fall Prevention activity supervised;fall prevention program maintained;nonskid shoes/slippers when out of bed;safety round/check completed Positioning Body Position independent Activity Activity Type activity adjusted per tolerance;ambulated in rowe Activity Assistance Provided independent Assistive Device Utilized none Goal: Infection Control Outcome: Ongoing (Interventions Implemented as Appropriate) 05/21/172025 Safety Interventions Isolation Precautions standard precautions maintained Infection Prevention environmental surveillance performed;rest/sleep promoted;single patient room provided Coping Strategies Supportive Measures active listening utilized;decision-making supported;positive reinforcement provided;self-care encouraged;verbalization of feelings encouraged * Plan of Care - Alma Garcia RN - 05/21/2017 6:13 PM EST Problem: Patient Care Overview Goal: Plan of Care Review Outcome: Ongoing (Interventions Implemented as Appropriate) 05/21/17 0648 05/21/17 0900 Plan of Care Review Progress no change -- Coping/Psychosocial Plan Of Care Reviewed With -- patient OUTCOME EVALUATION NOTE: OUTCOME SUMMARY: Pt had an uneventful day. Ambulated in rowe independently. Pt showered today. Heparin gtt infusing per protocol. PRN tylenol given for a mild headache with good relief. Family and friends at bedside throughout shift. Will continue to monitor. PLAN MOVING FORWARD: CT surgery Thursday? INDIVIDUALIZED FALL PREVENTION INTERVENTIONS: Patient-specific fall risk factors per assessment: [current deficits]: PIVs, tele Assistance [level of assistance required for transfers and ambulation]: Independent Supervision [direct monitoring required during toileting and ADLs]: Eyes on Surveillance [continuous indirect monitoring]: Call dowell within reach, purposeful nurse rounding, telemetry Patient-specific fall prevention interventions for sensory deficits provided, if applicable: yes CPG GOAL OUTCOME EVALUATION: * Plan of Care - Afsaneh Hill RN - 05/21/2017 6:52 AM EST Problem: Patient Care Overview Goal: Plan of Care Review Outcome: Ongoing (Interventions Implemented as Appropriate) 05/21/17 0648 Plan of Care Review Progress no change Coping/Psychosocial Plan Of Care Reviewed With patient OUTCOME EVALUATION NOTE: OUTCOME SUMMARY: Monitored s/p cardiac cath. Pt reports right thumb numbness from procedure. Statesinterventionalist aware. No changes noted in right arm site. Surgical teaching continued for planned AVR. PLAN MOVING FORWARD: Pre-op teaching. Awaiting surgical plan. INDIVIDUALIZED FALL PREVENTION INTERVENTIONS: Patient-specific fall risk factors per assessment: [current deficits]: Heparin drip, equipment. Assistance [level of assistance required for transfers and ambulation]: Stand by x 1 as needed. Supervision [direct monitoring required during toileting and ADLs]: Intermittent Surveillance [continuous indirect monitoring]: Telemetry, purposeful hourly rounding. Patient-specific fall prevention interventions for sensory deficits provided, if applicable: Call dowell in reach CPG GOAL OUTCOME EVALUATION: * Plan of Care - Afsaneh Hill RN - 05/20/2017 5:52 AM EST Problem: Patient Care Overview Goal: Plan of Care Review Outcome: Ongoing (Interventions Implemented as Appropriate) 05/20/17 0549 Plan of Care Review Progress no change Coping/Psychosocial Plan Of Care Reviewed With patient OUTCOME EVALUATION NOTE: OUTCOME SUMMARY: No complaints overnight. Heparin gtt continued. Denies further chest discomfort and anxiety. Family at bedside. PLAN MOVING FORWARD: NPO for right and left heart cath. INDIVIDUALIZED FALL PREVENTION INTERVENTIONS: Patient-specific fall risk factors per assessment: [current deficits]: Medications, equipment. Assistance [level of assistance required for transfers and ambulation]: N/a. Supervision [direct monitoring required during toileting and ADLs]: Intermittent. Surveillance [continuous indirect monitoring]: Telemetry, purposeful hourly rounding. Patient-specific fall prevention interventions for sensory deficits provided, if applicable: Call dowell in reach, glasses at bedside. CPG GOAL OUTCOME EVALUATION: * Plan of Care - Sabas Walker RN - 05/19/2017 3:46 PM EST Problem: Patient Care Overview Goal: Plan of Care Review Outcome: Ongoing (Interventions Implemented as Appropriate) 05/19/17 0403 Plan of Care Review Progress progress toward functional goals as expected Coping/Psychosocial Plan Of Care Reviewed With patient OUTCOME EVALUATION NOTE: OUTCOME SUMMARY: Patient admitted with symptomatic aortic insufficiency was supposed to have a right and left heart cath today, had to wait due to a high inr PLAN MOVING FORWARD: Continue to monitor and possibly cath tomorrow as a pre AVrR workup INDIVIDUALIZED FALL PREVENTION INTERVENTIONS: Patient-specific fall risk factors per assessment: [current deficits]: Tethered to iv pole Assistance [level of assistance required for transfers and ambulation]: ind Supervision [direct monitoring required during toileting and ADLs]: Call dowell Surveillance [continuous indirect monitoring]: Hourly rounds Patient-specific fall prevention interventions for sensory deficits provided, if applicable: CPG GOAL OUTCOME EVALUATION: Goal: Fall Prevention-Safe Patient Handling Outcome: Ongoing (Interventions Implemented as Appropriate) 05/17/17 [id number]/17202905/19/17 0800 Delgado Fall Risk History of Falling -- -- 0 Secondary Diagnosis -- -- 15 Ambulatory Aids -- -- 0 Intravenous Therapy/Heparin/Saline Lock -- -- 20 Gait/Transferring -- -- 0 Mental Status -- -- 0 Score -- -- 35 OTHER Delgado Fall Risk -- -- Med Restraint Interventions Safety Promotion/Fall Prevention -- -- activity supervised;nonskid shoes/slippers when out of bed Positioning Body Position -- independent -- Activity Activity Type -- up ad denzel -- Activity Assistance Provided -- independent -- Assistive Device Utilized none -- -- Goal: Infection Control Outcome: Ongoing (Interventions Implemented as Appropriate) 02/12/18 2030 Safety Interventions Isolation Precautions standard precautions maintained Infection Prevention environmental surveillance performed;personal protective equipment utilized;rest/sleep promoted;single patient room provided Coping Strategies Supportive Measures self-care encouraged Goal: Discharge Needs Assessment Outcome: Ongoing (Interventions Implemented as Appropriate) 05/18/17 0314 Discharge Needs Assessment Concerns To Be Addressed no discharge needs identified Readmission Within The Last 30 Days no previous admission in last 30 days Equipment Needed After Discharge none Discharge Disposition still a patient Activity/Self Care Review of Systems Equipment Currently Used at Home none Current Health Anticipated Changes Related to Illness none Living Environment Transportation Available car;family or friend will provide * Plan of Care - Afsaneh Hill RN - 05/19/2017 4:04 AM EST Problem: Patient Care Overview Goal: Plan of Care Review Outcome: Ongoing (Interventions Implemented as Appropriate) 05/19/17 0403 Plan of Care Review Progress progress toward functional goals as expected Coping/Psychosocial Plan Of Care Reviewed With patient OUTCOME EVALUATION NOTE: OUTCOME SUMMARY: No respiratory or cardiac complaints overnight. Headache treated with Tylenol. PLAN MOVING FORWARD: NPO for cath today. INDIVIDUALIZED FALL PREVENTION INTERVENTIONS: Patient-specific fall risk factors per assessment: [current deficits]: Medications, equipment, A.I. Assistance [level of assistance required for transfers and ambulation]: Independent. Supervision [direct monitoring required during toileting and ADLs]: intermittent. Surveillance [continuous indirect monitoring]: Purposeful hourly rounding, telemetry. Patient-specific fall prevention interventions for sensory deficits provided, if applicable: Call dowell in reach. CPG GOAL OUTCOME EVALUATION: * Plan of Care - Melody Collins APRN - 05/18/2017 11:47 AM EST Images from the original note were not included. Cardiac cath Pre Procedure Note The indications, expected benefits and potential risks of heart catheterization were reviewed in detail with the patient. The potential for , heart attack, stroke, kidney failure, hemorrhage, allergic reaction, vascular complications and infection were reviewed in detail. The possibility of stenting and other percutaneous intervention with associated risk was reviewed. The possible need for emergent coronary artery bypass surgery was reviewed. After a discussion about the above, and havinganswered all questions posed, the patient was provided with a consent which was reviewed and signed. ASA: 3: Patient with severe systemic disease Mallampati: III: only the base of the uvula can be seen Sedation Plan: moderate (conscious sedation) Assessment and Plan: Proceed with cardiac cath today, see progress note from today for further details. MELODY COLLINS APRN 05/18/2017 Pager [phone] * Consult Note - Kelle Glass RN - 05/18/2017 10:08 AM EST Called to patients room for PIV assessment and potential replacement. Echo team in room, and will not be needing to use this line. PAIGE Rogel is aware and will repage for New PIV when Echo team is finished. Advised Rn to remove PIV in question until VAS can place new. * Initial Assessments - Andi Rios MSW - 05/18/2017 8:01 AM EST Office of Care Management Initial Assessment ADRIANA Espinoza reviewed record and discussed patient with Care Team. Source of Information:Patient, Chart, Treatment Team, father and mother Introduced self/reviewed role; services accepted. 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 Antiphospholipid antibody syndrome ??? Anxiety ??? Cerebrovascular accident ??? Chest pain 04/01/2012 ??? CHF (congestive heart failure) ??? Depression ??? FATIMA (dyspnea on exertion) 04/01/2012 ??? H/O total knee replacement 04/01/2012 ??? Hypertension ??? Migraine ??? JAN (obstructive sleep apnea) ??? Osteoporosis 04/01/2012 ??? Osteoporosis ??? SLE (systemic lupus erythematosus) Hospitalizations Within the Past 30 Days: none Anticipated Length Of Stay (If known): tbd Current Decision-Making Capacity: A&Ox4 Advance Care Planning: has paperwork and will do it Current Coping/Education/Information Needs: none Current Functional Ability: SBA Functional Status Prior to Admission: increasingly less independent- walks are very hard Home Environment: [address]; single level living apartment Social & Family Supports/Community Resources: parents, , friends, [employer] fellows Behavioral Health History: anxiety, depression history (returned to [facility] because of weight gain) Substance Use/Abuse: Denies Other Pertinent/Service Specific Information: none Health/Prescription Coverage: Primary Insurance: MEDICARE Secondary Insurance: [place] Medicaid with spenddown Prescription Coverage: yes Preferred Pharmacy: [email or web address] Other: none Primary Care Provider: Mckenna Genao APRN [phone] Patient/Caregiver Goals of Treatment: 'to get feeling better Potential Needs for Transition of Care: Rehab/SNF: [facility] Home Health: [facility] DME: none Dialysis: NA Community Resources: Available Transportation: yes Anticipated Barriers to Discharge/Special Considerations: none Plan: home with [facility] A member of the Care Management team will continue to monitor progress, follow for continuity of care and assist with transition of care planning. ADRIANA Espinoza Pager: [phone] documented in this encounter Plan of Treatment Upcoming Encounters Date Type Department Care Team (Late st Contact Info) Description 11/11/2023 3:00 AM EDT Anti-Coag Telephone Visit [facility] [place] [phone] Scheduled Orders Name Type Priority Associated Diagnoses Orde r Schedule EKG 12 Lead ECG Routine S/P AVR Ordered: 05/30/2017 Scheduled Referrals Name Type Priority Associated Diagnoses Orde r Schedule Referral to Cardiac Rehab Outpatient Referral Routine S/P AVR Ordered: 05/30/2017 documented as of this encounter Procedures Procedure Name Priority Date/Time Associated Diagnosis Comments LAB SCAN 05/31/2017 12:00 AM EST IMPLANTABLE DEVICES SCAN 05/31/2017 12:00 AM EST SHOE PATTERNMAKER SCAN 05/31/2017 12:00 AM EST SHOE PATTERNMAKER SCAN 05/31/2017 12:00 AM EST POCT GLUCOSE Routine 05/30/2017 7:43 AM EST HEMOGRAM STAT 05/30/2017 4:00 AM EST DIFFERENTIAL, AUTOMATED STAT 05/30/19 18 4:00 AM EST PROTHROMBIN TIME Routine 05/30/2017 4:00 AM EST HEPARIN, LOW MOLECULAR WEIGHT ASSAY STAT 05/30/2017 4:00 AM EST CBC (WITH DIFF) STAT 05/30/2017 4:00 AM EST POTASSIUM Timed 05/30/2017 4:00 AM EST POCT GLUCOSE Routine 05/29/2017 8:18 PM EST HEPARIN, LOW MOLECULAR WEIGHT ASSAY STAT 05/29/2017 4:12 PM EST POCT GLUCOSE Routine 05/29/2017 4:01 PM EST POCT GLUCOSE Routine 05/29/2017 11:52 AM EST HEPARIN, LOW MOLECULAR WEIGHT ASSAY STAT 05/29/2017 10:34 AM EST POCT GLUCOSE Routine 05/29/2017 7:43 AM EST HEMOGRAM STAT 05/29/2017 3:23 AM EST DIFFERENTIAL, AUTOMATED STAT 05/29/19 18 3:23 AM EST PROTHROMBIN TIME Routine 05/29/2017 3:23 AM EST HEPARIN, LOW MOLECULAR WEIGHT ASSAY STAT 05/29/2017 3:23 AM EST CBC (WITH DIFF) STAT 05/29/2017 3:23 AM EST POTASSIUM Timed 05/29/2017 3:23 AM EST POCT GLUCOSE Routine 05/28/2017 3:39 PM EST XR CHEST PA AND LATERAL Timed 05/28/19 12:22 PM EST POCT GLUCOSE Routine 05/28/2017 11:32 AM EST POCT GLUCOSE Routine 05/28/2017 8:11 AM EST HEMOGRAM Routine 05/28/2017 4:21 AM EST DIFFERENTIAL, AUTOMATED Routine 05/28/19 4:21 AM EST PROTHROMBIN TIME Routine 05/28/2017 4:21 AM EST HEPARIN, LOW MOLECULAR WEIGHT ASSAY STAT 05/28/2017 4:21 AM EST CBC (WITH DIFF) Routine 05/28/2017 4:21 AM EST BASIC METABOLIC PANEL (NON-FASTING) Routine 05/28/2017 4:21 AM EST POCT GLUCOSE Routine 05/27/2017 11:36 PM EST HEPARIN, LOW MOLECULAR WEIGHT ASSAY STAT 05/27/2017 9:32 PM EST POCT GLUCOSE Routine 05/27/2017 8:17 PM EST POCT GLUCOSE Routine 05/27/2017 3:49 PM EST HEPARIN, LOW MOLECULAR WEIGHT ASSAY STAT 05/27/2017 3:30 PM EST POCT GLUCOSE Routine 05/27/2017 11:51 AM EST POCT GLUCOSE Routine 05/27/2017 7:37 AM EST POCT GLUCOSE Routine 05/27/2017 5:06 AM EST SCAN, PERIPHERAL BLOOD STAT 8 5:05 AM EST HEMOGRAM STAT 05/27/2017 5:05 AM EST DIFFERENTIAL, AUTOMATED STAT 05/27/19 18 5:05 AM EST PROTHROMBIN TIME Routine 05/27/2017 5:05 AM EST HEPARIN, LOW MOLECULAR WEIGHT ASSAY STAT 05/27/2017 5:05 AM EST CBC (WITH DIFF) STAT 05/27/2017 5:05 AM EST POTASSIUM Routine 05/27/2017 5:05 AM EST POCT GLUCOSE Routine 05/27/2017 1:25 AM EST HEPARIN, LOW MOLECULAR WEIGHT ASSAY STAT 05/26/2017 11:40 PM EST POCT GLUCOSE Routine 05/26/2017 11:38 PM EST POCT GLUCOSE Routine 05/26/2017 10:06 PM EST POCT GLUCOSE Routine 05/26/2017 7:43 PM EST POCT GLUCOSE Routine 05/26/2017 5:54 PM EST HEPARIN, LOW MOLECULAR WEIGHT ASSAY STAT 05/26/2017 5:50 PM EST POCT GLUCOSE Routine 05/26/2017 3:56 PM EST POCT GLUCOSE Routine 05/26/2017 2:34 PM EST POCT GLUCOSE Routine 05/26/2017 11:30 AM EST HEMOGRAM STAT 05/26/2017 9:40 AM EST DIFFERENTIAL, AUTOMATED STAT 05/26/19 9:40 AM EST APTT STAT 05/26/2017 9:40 AM EST PROTHROMBIN TIME Routine 05/26/2017 9:40 AM EST CBC (WITH DIFF) STAT 05/26/2017 9:40 AM EST POCT GLUCOSE Routine 05/26/2017 9:36 AM EST POCT GLUCOSE Routine 05/26/2017 8:00 AM EST POCT GLUCOSE Routine 05/26/2017 6:56 AM EST POCT GLUCOSE Routine 05/26/2017 6:11 AM EST POCT GLUCOSE Routine 05/26/2017 4:00 AM EST HEMOGRAM Routine 05/26/2017 4:00 AM EST DIFFERENTIAL, AUTOMATED Routine 05/26/19 4:00 AM EST CARDIAC ENZYMES [place] Routine 05/26/2017 4:00 AM EST CREATININE Routine 05/26/2017 4:00 AM EST CBC (WITH DIFF) Routine 05/26/2017 4:00 AM EST BUN Routine 05/26/2017 4:00 AM EST GLUCOSE, FASTING Routine 05/26/2017 4:00 AM EST ELECTROLYTES PANEL Routine 05/26/2017 4: 00 AM EST POCT GLUCOSE Routine 05/26/2017 2:58 AM EST POCT GLUCOSE Routine 05/26/2017 2:06 AM EST POCT GLUCOSE Routine 05/26/2017 12:56 AM EST POCT GLUCOSE Routine 05/26/2017 12:06 AM EST POCT GLUCOSE Routine 05/25/2017 11:22 PM EST POCT GLUCOSE Routine 05/25/2017 10:54 PM EST POCT GLUCOSE Routine 05/25/2017 10:05 PM EST POCT GLUCOSE Routine 05/25/2017 9:02 PM EST EXTUBATE Routine 05/25/2017 8:02 PM EST BLOOD GAS 2 ARTERIAL Routine 05/25/2017 7:44 PM EST POCT GLUCOSE Routine 05/25/2017 7:41 PM EST HEMOGLOBIN Routine 05/25/2017 7:40 PM EST POTASSIUM Routine 05/25/2017 7:40 PM EST POCT GLUCOSE Routine 05/25/2017 5:08 PM EST PREPARE ALBUMIN 5% IN 250 ML Routine 05/25/2017 4:18 PM EST XR CHEST ONE VIEW STAT 05/25/2017 3:3 2 PM EST BLOOD GAS 2 ARTERIAL Routine 05/25/2017 3:22 PM EST EKG 12-LEAD STAT 05/25/2017 3:12 PM EST S/P AVR BLOOD GAS 2 ARTERIAL Routine 05/25/2017 1:58 PM EST HEMOGRAM STAT 05/25/2017 1:55 PM EST APTT STAT 05/25/2017 1:55 PM EST THROMBIN TIME STAT 05/25/2017 1:55 PM EST PROTHROMBIN TIME STAT 05/25/2017 1:55 PM EST FIBRINOGEN STAT 05/25/2017 1:55 PM EST BLOOD GAS 2 ARTERIAL Routine 05/25/2017 1:02 PM EST HEMOGLOBIN AND HEMATOCRIT, BLOOD STAT 05/25/2017 12:35 PM EST FIBRINOGEN STAT 05/25/2017 12:35 PM EST PLATELET COUNT STAT 05/25/2017 12:35 PM EST BLOOD GAS 2 ARTERIAL Routine 05/25/2017 12:32 PM EST SURGICAL PATHOLOGY REPORT Routine 05/25/2017 12:28 PM EST SPECIMEN TO PATHOLOGY Routine 05/25/2017 12:28 PM EST BLOOD GAS 2 ARTERIAL Routine 05/25/2017 12:05 PM EST BLOOD GAS 2 VENOUS Routine 05/25/2017 12 :05 PM EST BLOOD GAS 2 ARTERIAL Routine 05/25/2017 11:27 AM EST BLOOD GAS 2 ARTERIAL Routine 05/25/2017 11:04 AM EST @REPLACE AORTIC VALVE, OPEN, W\CPB, W\PROSTHETIC VALVE (WRVU 41.32) 05/25/2017 10:48 AM EST ai PREPARE COAG FACTORS (NON-HEMOPHILIA) STAT 05/25/2017 10:15 AM EST PREPARE RBC STAT 05/25/2017 10:15 AM EST HEPARIN, LOW MOLECULAR WEIGHT ASSAY STAT 05/25/2017 9:50 AM EST URINE HOLD Routine 05/25/2017 8:52 AM EST URINE CULTURE Routine 05/25/2017 7:59 AM EST POCT GLUCOSE Routine 05/25/2017 7:47 AM EST BMP W/FASTING GLUCOSE Routine 05/25/2017 3:48 AM EST HEMOGRAM STAT 05/25/2017 3:48 AM EST DIFFERENTIAL, AUTOMATED STAT 05/25/19 3:48 AM EST HEPARIN, LOW MOLECULAR WEIGHT ASSAY Routine 05/25/2017 3:48 AM EST CBC (WITH DIFF) STAT 05/25/2017 3:48 AM EST ABORH RECHECK STATUS Timed 05/24/2017 8:27 PM EST ABO/RH TYPING Timed 05/24/2017 8:27 PM EST HEPARIN, LOW MOLECULAR WEIGHT ASSAY Routine 05/24/2017 8:27 PM EST ANTIBODY SCREEN Timed 05/24/2017 8:27 PM EST TYPE AND SCREEN ([facility]ARIANNE[place] Timed 05/24/2017 8:27 PM EST HEPARIN, LOW MOLECULAR WEIGHT ASSAY Timed 05/24/2017 1:59 PM EST GOLD TUBE HOLD Routine 05/24/2017 12:25 PM EST @REPLACE AORTIC VALVE, OPEN, W\CPB, W\PROSTHETIC VALVE Routine 05/24/2017 11:22 AM EST APTT Routine 05/24/2017 10:46 AM EST BMP W/FASTING GLUCOSE Routine 05/24/2017 3:58 AM EST HEMOGRAM Routine 05/24/2017 3:58 AM EST DIFFERENTIAL, AUTOMATED Routine 05/24/19 3:58 AM EST APTT Timed 05/24/2017 3:58 AM EST CBC (WITH DIFF) Routine 05/24/2017 3:58 AM EST APTT Timed 05/23/2017 7:36 PM EST APTT Timed 05/23/2017 1:33 PM EST APTT Timed 05/23/2017 6:54 AM EST HEMOGRAM Routine 05/23/2017 12:50 AM EST DIFFERENTIAL, AUTOMATED Routine 05/23/19 12:50 AM EST APTT Timed 05/23/2017 12:50 AM EST PROTHROMBIN TIME Routine 05/23/2017 12:5 0 AM EST CBC (WITH DIFF) Routine 05/23/2017 12:50 AM EST BASIC METABOLIC PANEL (NON-FASTING) Routine 05/23/2017 12:50 AM EST APTT Timed 05/22/2017 7:27 PM EST URINALYSIS MICROSCOPIC EXAM Routine 05/22/2017 3:14 PM EST URINE HOLD Routine 05/22/2017 3:14 PM EST URINALYSIS WITH REFLEX CULTURE Routine 05/22/2017 3:14 PM EST APTT Timed 05/22/2017 12:55 PM EST EKG 12-LEAD Routine 05/22/2017 7:48 AM EST Other chest pain HEMOGRAM Routine 05/22/2017 5:46 AM EST DIFFERENTIAL, AUTOMATED Routine 05/22/19 5:46 AM EST APTT STAT 05/22/2017 5:46 AM EST PROTHROMBIN TIME Routine 05/22/2017 5:46 AM EST CBC (WITH DIFF) Routine 05/22/2017 5:46 AM EST BASIC METABOLIC PANEL (NON-FASTING) Routine 05/22/2017 5:46 AM EST EKG 12-LEAD Routine 05/21/2017 7:11 AM EST Other chest pain BMP W/FASTING GLUCOSE Routine 05/21/2017 3:53 AM EST HEMOGRAM Routine 05/21/2017 3:53 AM EST DIFFERENTIAL, AUTOMATED Routine 05/21/19 18 3:53 AM EST APTT STAT 05/21/2017 3:53 AM EST PROTHROMBIN TIME Routine 05/21/2017 3:53 AM EST CBC (WITH DIFF) Routine 05/21/2017 3:53 AM EST APTT Timed 05/20/2017 10:00 PM EST POINT OF CARE BLOOD GAS HISTORICAL Routine 05/20/2017 10:58 AM EST CARDIAC CATHETERIZATION Routine 05/20/19 18 10:07 AM EST EKG 12-LEAD Routine 05/20/2017 7:07 AM EST Other chest pain BMP W/FASTING GLUCOSE Routine 05/20/2017 5:13 AM EST HEMOGRAM Routine 05/20/2017 5:13 AM EST DIFFERENTIAL, AUTOMATED Routine 05/20/19 18 5:13 AM EST APTT STAT 05/20/2017 5:13 AM EST PROTHROMBIN TIME Routine 05/20/2017 5:13 AM EST CBC (WITH DIFF) Routine 05/20/2017 5:13 AM EST APTT STAT 05/19/2017 9:54 PM EST EKG 12-LEAD Routine 05/19/2017 5:20 PM EST Aortic insufficiency due to bicuspid aortic valve APTT STAT 05/19/2017 12:25 PM EST PROTHROMBIN TIME Timed 05/19/2017 12:2 5 PM EST EKG 12-LEAD Routine 05/19/2017 6:59 AM EST Other chest pain BMP W/FASTING GLUCOSE Routine 05/19/2017 5:35 AM EST HEMOGRAM Routine 05/19/2017 5:35 AM EST DIFFERENTIAL, AUTOMATED Routine 05/19/19 5:35 AM EST PROTHROMBIN TIME Routine 05/19/2017 5:35 AM EST CBC (WITH DIFF) Routine 05/19/2017 5:35 AM EST CARDIAC ENZYMES ([facility]/CGP) Routine 05/18/2017 12:35 PM EST ECHO COMPLETE Routine 05/18/2017 10:55 AM EST Other chest pain Aortic insufficiency due to bicuspid aortic valve XR CHEST PA AND LATERAL Routine 05/18/19 9:08 AM EST BMP W/FASTING GLUCOSE Routine 05/18/2017 6:59 AM EST HEMOGRAM Routine 05/18/2017 6:59 AM EST DIFFERENTIAL, AUTOMATED Routine 05/18/19 18 6:59 AM EST CARDIAC ENZYMES ([facility]/CGP) Routine 05/18/2017 6:59 AM EST APTT Routine 05/18/2017 6:59 AM EST PROTHROMBIN TIME Routine 05/18/2017 6:59 AM EST CBC (WITH DIFF) Routine 05/18/2017 6:59 AM EST EKG 12-LEAD STAT 05/18/2017 1:33 AM EST Other chest pain BMP W/FASTING GLUCOSE Routine 05/18/2017 12:36 AM EST HEMOGRAM Routine 05/18/2017 12:36 AM EST DIFFERENTIAL, AUTOMATED Routine 05/18/19 18 12:36 AM EST CARDIAC ENZYMES (MC/CGP) Routine 05/18/2017 12:36 AM EST APTT Routine 05/18/2017 12:36 AM EST PROTHROMBIN TIME Routine 05/18/2017 12:3 6 AM EST CBC (WITH DIFF) Routine 05/18/2017 12:36 AM EST TRIGLYCERIDE Routine 05/18/2017 12:36 AM EST TSH Routine 05/18/2017 12:36 AM EST PHOSPHORUS Routine 05/18/2017 12:36 AM EST PRO-BRAIN NATRIURETIC PEPTIDE Routine 05/18/2017 12:36 AM EST MAGNESIUM Routine 05/18/2017 12:36 AM EST LDL CHOLESTEROL, DIRECT Routine 05/18/19 18 12:36 AM EST HDL/CHOL PROFILE Routine 05/18/2017 12:3 6 AM EST HEMOGLOBIN A1C Routine 05/18/2017 12:36 AM EST HEPATIC FUNCTION PANEL Routine 8 12:36 AM EST LIPID PANEL (REFLEX DIRECT LDL) Routine 05/18/2017 12:36 AM EST EKG 12-LEAD Routine 05/18/2017 12:23 AM EST Other chest pain documented in this encounter Results * CT [...] PM Alvaro Siegel MD IMG CT ORDERABLES * ECHO COMPLETE (06/30/2017 2:46 PM EDT) EF 59 HEARTLAB SYSTEM Anatomical Region Laterality Modality Other 06/30/2017 Narrative 06/30/2017 2:52 PM EDT Procedure: ?Transthoracic Echocardiogram Patient: ?SEBASTIÁN Montiel ? (Age): 1970(47y) Med Rec#: ? [id number] ?Sex: ?F ? Site Loc: ? [facility] ?Ht / Wt: ??162.56(cm)/69.8 Pt. Loc: ?Echo Lab ?BSA: ?1.75 Study Date: ?? 06/30/2017 ?Pt. Type: Outpatient Tape: ? Referring: Kuldeep Conner Referring: [email or web address] Reading: Dereck Adams ([id number]) [employer] Anchor: Anita Guerra YAZMIN Diagnosis: *ICD-10-PCS Presence of other heart-valve replacement [...] E-wave Vmax ?0.9 ?m/sec ? MV deceleration vmau482.8 ?msec ? MV A-wave Vmax ?0.8 ?m/sec [...] ? Pulmonic Valve/Qp:Qs ?Value ?Units (Range) ? OR end-diastolic Vma0.9 ?m/sec ? PA end-diastolic pre6.3 ?mmHg ? Wall Motion: Segment Name ?Rest ? Base-Anteroseptal ?? Normal ? Base-Anterior ? Normal ? Base-Anterolateral ??Normal ? Base-Posterolateral Normal ? Base-Inferior ? Normal ? Base-Inferoseptal ?? Normal ? Mid-Anteroseptal ?Normal ? Mid-Anterior ?Normal ? Mid-Anterolateral ?? Normal ? Mid-Posterolateral ??Normal ? Mid-Inferior ?Normal ? Mid-Inferoseptal ?Normal ? [place]-Septal ? Normal ? [place]-Anterior ? Normal ? [place]-Lateral ?Normal ? [place]-Inferior ? Normal ? [place]-Tip ?Normal ? This report has been electronically signed by: Dereck Adams MD ? 06/30/2017 14:52:10 Images reviewed and interpretation verified [facility] Cardiac Ultrasound Laboratory Procedure Note Dereck Adams MD - 06/30/2017 Procedure: Transthoracic Echocardiogram Patient: SEBASTIÁN Montiel (Age): 1970(47y) Med Rec#: [id number] Sex: F [place] Loc[place] [facility] Ht / Wt: 162.56(cm)/69.8 Pt. Loc: Echo Lab BSA: 1.75 Study Date: 06/30/2017 Pt. Type: Outpatient Tape: Referring: Kuldeep Conner Referring: MILIND Reading: Dereck Adams ([id number]) [employer] Anchor: Anita Guerra [facility] Diagnosis: *ICD-10-PCS Presence of other heart-valve replacement [...] MV E-wave Vmax 0.9 m/sec MV deceleration avxf454.8 msec MV A-wave Vmax 0.8 m/sec MV [...] 25 mmHg Pulmonic Valve/Qp:Qs Value Units (Range) OR end-diastolic Vma0.9 m/sec PA end-diastolic pre6.3 mmHg Wall Motion: Segment Name Rest Base-Anteroseptal Normal Base-Anterior Normal Base-Anterolateral Normal Base-Posterolateral Normal Base-Inferior Normal Base-Inferoseptal Normal Mid-Anteroseptal Normal Mid-Anterior Normal Mid-Anterolateral Normal Mid-Posterolateral Normal Mid-Inferior Normal Mid-Inferoseptal Normal [place]-Septal Normal [place]-Anterior Normal [place]-Lateral Normal [place]-Inferior Normal [place]-Tip Normal This report has been electronically signed by: Dereck Adams MD 06/30/2017 14:52:10 Images reviewed and interpretation verified [facility] Cardiac Ultrasound Laboratory Kuldeep Conner MD ECHO ORDERABLES * XR Chest PA & Lateral (Generic) [...] PM Kuldeep Conner MD IMG DX ORDERABLES * SCAN DOC: IMPLANTABLE DEVICES (05/31/2017 12:00 AM EST) Narrative 05/31/2017 12:00 AM EST Ordered by an unspecified provider. Scanning Provider MEDIA MGR SCAN EXT O RDR/RSLT * SCAN DOC: LAB (05/31/2017 12:00 AM EST) Narrative 05/31/2017 12:00 AM EST Ordered by an unspecified provider. Scanning Provider MEDIA MGR SCAN EXT O RDR/RSLT * SCAN DOC: SHOE PATTERNMAKER (05/31/2017 12:00 AM EST) Anatomical Region Laterality Modality Other Narrative 05/31/2017 12:00 AM EST Ordered by an unspecified provider. Scanning Provider MEDIA MGR SCAN EXT O RDR/RSLT * SCAN DOC: SHOE PATTERNMAKER (05/31/2017 12:00 AM EST) Anatomical Region Laterality Modality Other Narrative 05/31/2017 12:00 AM EST Ordered by an unspecified provider. Scanning Provider MEDIA MGR SCAN EXT O RDR/RSLT * POCT Glucose (05/30/2017 7:43 AM EST) [facility] POC Glucose 105 65 - 199 mg/dL [facility] Comment: Supplemental ranges: <140 mg/dL before meals <180 mg/dL all other times of the day Blood specimen (specimen) 05/30/2017 7:43 AM EST 05/30/2017 7:43 AM EST Kuldeep Conner MD POINT OF CARE TEST ORDERABLES [facility] [place] [place] [address] * Heparin, low molecular weight assay (05/30/2017 4:00 AM EST) Heparin [id number] 0.30 IU/mL [facility] Comment: Guidelines for therapeutic unfractionated and low molecular weight heparin levels for the various formulations available in the [place] are summarized below. Anti-Xa levels should be determined in a plasma sample that has been drawn approximately 3-5 hours after a dose of LMWH and after steady-state has been reached. DRUG ?Dosing Schedule ?Target Peak Steady- State ? Anti-Xa Levels (Units/mL) Unfractionated ?Continuous infusion ?0.3-0.7 heparin Enoxaparin ?Twice daily ?0.6-1.0 Enoxararin ?Once daily ? Unknown,likely 1.0-1.5 Dalteparin ?Once daily ? 1.05 Tinzaparin ?Once daily ? 0.85 Monitoring prophylactic dose LMWH is not routinely performed, thus guidelines for target peak anti-Xa levels are not available. Levels between 0.2 and 0.5 u/ml may be appropriate. Note: Most clinical trials in which low molecular weight heparins were used to treat acute venous thrombolism did not use target anti-Xa levels to guide dosing, hence therapeutic levels have been determined retrospectively and have not been shown to correlate with drug efficacy. Blood specimen (specimen) 05/30/2017 4:00 AM EST 05/30/2017 4:34 AM EST Narrative Resulting Agency Comment Spec In Lab Verónica Watters APRN HEMATOLOGY ORDERAB LES [facility] [place] [place] [address] * (ABNORMAL) Differential, Automated (05/30/2017 4:00 AM EST) Neutrophils % 68.3 % [facility] Neutr Abs (ANC) 6.22(H) 1.70 - 6.10 x10(3)/[facility] LABORATORY Lymphocytes % 18.0 % [facility] Lymphocytes Abs 1.6 0.9 - 3.2 x10(3)/[facility] LABORATORY Monocytes % 8.7 % [facility] Monocyte Abs 0.8 0.3 - 0.9 x10(3)/[facility] LABOR[facility]ORY Eosinophils % 4.0 % [facility] Eosinophils Abs 0.4 0.0 - 0.4 x10(3)/[facility] LABORATORY Basophils % 0.3 % [facility] Basophils Abs 0.0 0.0 - 0.1 x10(3)/[facility] LABORATORY Immature Gran % 0.70 % [facility] Comment: Immature granulocytes(IG's)percentage and absolute count will include metamyelocytes, myelocytes, and promyelocytes. Blood smears from CBCs yielding IG's will be scanned manually for concordance. If this scan disagrees with the automated IG or if promyelocytes are noted, a manual differential will be performed. [place] Gran Abs 0.06(H) 0.00 - 0.04 x10(3)/[facility] LABORATORY Blood specimen (specimen) 05/30/2017 4:00 AM EST 05/30/2017 4:34 AM EST Narrative Resulting Agency Comment Spec In Lab Verónica Watters APRN HEMATOLOGY ORDERAB LES [facility] [place] [address] * (ABNORMAL) Hemogram (05/30/2017 4:00 AM EST) WBC 9.1 4.0 - 9.5 x10(3)/[facility] LABORATORY RBC 2.63(L) 4.00 - 5.21 x10(6)/[facility] LABORATORY Hemoglobin 8.8(L) 11.7 - 15.5 gm/dL [facility] Hematocrit 24.8(L) 35.7 - 45.8 % [facility] MCV 94.3 82.6 - 94.4 [facility] LAB[facility]ATORY MCH 33.5(H) 27.1 - 32.0 pg [facility] MCHC 35.5(H) 31.7 - 35.0 gm/dL [facility] Platelets 166 145 - 357 x10(3)/[facility] RDWSD 43.8 37.0 - 46.0 [facility] RDWCV 12.8 11.5 - 14.1 % [facility] MPV 11.2 7.6 - 12.9 [facility] nRBC % Auto 0.0 % [facility] nRBC Abs Auto 0.000 0.000 - 0.000 x10(3)/[facility] Blood specimen (specimen) 05/30/2017 4:00 AM EST 05/30/2017 4:34 AM EST Narrative Resulting Agency Comment Spec In Lab Verónica Watters APRN HEMATOLOGY ORDERAB LES Performing Organization Address City/State/[facility] Co de Phone Number [facility] [place] [address] * Potassium (05/30/2017 4:00 AM EST) Potassium 3.8 3.5 - 5.0 mmol/L [facility] Comment: Please note: ??Patients with WBC >100,000 may have falsely elevated Potassium levels. ??For accurate Potassium quantification in these patients send serum separator tube (gold top) for subsequent determinations. ??Contact the Clinical Chemistry Laboratory if there are any questions. Blood specimen (specimen) 05/30/2017 4:00 AM EST 05/30/2017 4:34 AM EST Narrative Resulting Agency Comment Spec In Lab Verónica Watters APRN CHEMISTRY ORDERABL ES Performing Organization Address City/[facility]/ZIP Co de Phone Number [facility] [place] [address] * (ABNORMAL) Prothrombin Time (05/30/2017 4:00 AM EST) PT 28.8(H) 11.8 - 14.0 sec [facility] INR 2.7(H) 0.9 - 1.1 [facility] Comment: An INR <2.0 indicates [...] depending on clinical circumstances. Blood specimen (specimen) 05/30/2017 4:00 AM EST 05/30/2017 4:34 AM EST Narrative Resulting Agency Comment Spec In Lab Verónica Watters APRN HEMATOLOGY ORDERAB LES Performing Organization Address [facility] Co de Phone Number [facility] [place] [address] * POCT Glucose (05/29/2017 8:18 PM EST) Pathologist [facility] POC Glucose 110 65 - 199 mg/dL [facility] Comment: Supplemental ranges: <140 mg/dL before meals <180 mg/dL all other times of the day Blood specimen (specimen) 05/29/2017 8:18 PM EST 05/29/2017 8:18 PM EST Kuldeep Conner MD POINT OF CARE TEST ORDERABLES Performing Organization Address City/[facility]/ZIP Co de Phone Number [facility] [place] [address] * Heparin, low molecular weight assay (05/29/2017 4:12 PM EST) [facility] Signature Heparin [id number] 0.34 IU/mL [facility] Comment: Guidelines for therapeutic unfractionated and low molecular weight heparin levels for the various formulations available in the [place] are summarized below. Anti-Xa levels should be determined in a plasma sample that has been drawn approximately 3-5 hours after a dose of LMWH and after steady-state has been reached. DRUG ?Dosing Schedule ?Target Peak Steady- State ? Anti-Xa Levels (Units/mL) Unfractionated ?Continuous infusion ?0.3-0.7 heparin Enoxaparin ?Twice daily ?0.6-1.0 Enoxararin ?Once daily ? Unknown,likely 1.0-1.5 Dalteparin ?Once daily ? 1.05 Tinzaparin ?Once daily ? 0.85 Monitoring prophylactic dose LMWH is not routinely performed, thus guidelines for target peak anti-Xa levels are not available. Levels between 0.2 and 0.5 u/ml may be appropriate. Note: Most clinical trials in which low molecular weight heparins were used to treat acute venous thrombolism did not use target anti-Xa levels to guide dosing, hence therapeutic levels have been determined retrospectively and have not been shown to correlate with drug efficacy. Blood specimen (specimen) 05/29/2017 4:12 PM EST 05/29/2017 4:23 PM EST Narrative Resulting Agency Comment Spec In Lab Verónica Watters APRN HEMATOLOGY ORDERAB LES Performing Organization Address [facility] de Phone Number [facility] [place] [address] * POCT Glucose (05/29/2017 4:01 PM EST) POC Glucose 99 65 - 199 mg/dL [facility] Comment: Supplemental ranges: <140 mg/dL before meals <180 mg/dL all other times of the day Blood specimen (specimen) 05/29/2017 4:01 PM EST 05/29/2017 4:01 PM EST Kuldeep Conner MD POINT OF CARE TEST ORDERABLES Performing Organization Address [facility] de Phone Number [facility] [place] [address] * POCT Glucose (05/29/2017 11:52 AM EST) POC Glucose 120 65 - 199 mg/dL [facility] Comment: Supplemental ranges: <140 mg/dL before meals <180 mg/dL all other times of the day Blood specimen (specimen) 05/29/2017 11:52 AM EST 05/29/2017 11:52 AM EST Kuldeep Conner MD POINT OF CARE TEST ORDERABLES Performing Organization Address [facility] de Phone Number [facility] [place] [address] * Heparin, low molecular weight assay (05/29/2017 10:34 AM EST) Heparin [id number] 0.55 IU/mL [facility] Comment: Guidelines for therapeutic unfractionated and low molecular weight heparin levels for the various formulations available in the are summarized below. Anti-Xa levels should be determined in a plasma sample that has been drawn approximately 3-5 hours after a dose of LMWH and after steady-state has been reached. DRUG ?Dosing Schedule ?Target Peak Steady- State ? Anti-Xa Levels (Units/mL) Unfractionated ?Continuous infusion ?0.3-0.7 heparin Enoxaparin ?Twice daily ?0.6-1.0 Enoxararin ?Once daily ? Unknown,likely 1.0-1.5 Dalteparin ?Once daily ? 1.05 Tinzaparin ?Once daily ? 0.85 Monitoring prophylactic dose LMWH is not routinely performed, thus guidelines for target peak anti-Xa levels are not available. Levels between 0.2 and 0.5 u/ml may be appropriate. Note: Most clinical trials in which low molecular weight heparins were used to treat acute venous thrombolism did not use target anti-Xa levels to guide dosing, hence therapeutic levels have been determined retrospectively and have not been shown to correlate with drug efficacy. Blood specimen (specimen) 05/29/2017 10:34 AM EST 05/29/2017 10:42 AM EST Narrative Resulting Agency Comment Spec In Lab Verónica Watters APRN HEMATOLOGY ORDERAB LES [facility] [place] [place] [address] * POCT Glucose (05/29/2017 7:43 AM EST) POC Glucose 97 65 - 199 mg/dL [facility] Comment: Supplemental ranges: <140 mg/dL before meals <180 mg/dL all other times of the day Blood specimen (specimen) 05/29/2017 7:43 AM EST 05/29/2017 7:43 AM EST Kuldeep Conner MD POINT OF CARE TEST ORDERABLES Performing Organization Address City/State/[facility] Co de Phone Number [facility] [place] [address] * Heparin, low molecular weight assay (05/29/2017 3:23 AM EST) Heparin [id number] 0.20 IU/mL [facility] Comment: Guidelines for therapeutic unfractionated and low molecular weight heparin levels for the various formulations available in the [place] are summarized below. Anti-Xa levels should be determined in a plasma sample that has been drawn approximately 3-5 hours after a dose of LMWH and after steady-state has been reached. DRUG ?Dosing Schedule ?Target Peak Steady- State ? Anti-Xa Levels (Units/mL) Unfractionated ?Continuous infusion ?0.3-0.7 heparin Enoxaparin ?Twice daily ?0.6-1.0 Enoxararin ?Once daily ? Unknown,likely 1.0-1.5 Dalteparin ?Once daily ? 1.05 Tinzaparin ?Once daily ? 0.85 Monitoring prophylactic dose LMWH is not routinely performed, thus guidelines for target peak anti-Xa levels are not available. Levels between 0.2 and 0.5 u/ml may be appropriate. Note: Most clinical trials in which low molecular weight heparins were used to treat acute venous thrombolism did not use target anti-Xa levels to guide dosing, hence therapeutic levels have been determined retrospectively and have not been shown to correlate with drug efficacy. Blood specimen (specimen) 05/29/2017 3:23 AM EST 05/29/2017 3:57 AM EST Narrative Resulting Agency Comment Spec In Lab Verónica Watters APRN HEMATOLOGY ORDERAB LES [facility] [place] [address] * (ABNORMAL) Differential, Automated (05/29/2017 3:23 AM EST) Neutrophils % 72.2 % [facility] Neutr Abs (ANC) 7.37(H) 1.70 - 6.10 x10(3)/mc L [facility] Lymphocytes % 16.0 % [facility] Lymphocytes Abs 1.6 0.9 - 3.2 x10(3)/[facility] LABORATORY Monocytes % 7.9 % [facility] Monocyte Abs 0.8 0.3 - 0.9 x10(3)/[facility]ORY Eosinophils % 2.7 % [facility] Eosinophils Abs 0.3 0.0 - 0.4 x10(3)/ L [facility] Basophils % 0.5 % [facility] Basophils Abs 0.0 0.0 - 0.1 x10(3)/mc L [facility] Immature Gran % 0.70 % [facility] Comment: Immature granulocytes(IG's)percentage and absolute count will include metamyelocytes, myelocytes, and promyelocytes. Blood smears from CBCs yielding IG's will be scanned manually for concordance. If this scan disagrees with the automated IG or if promyelocytes are noted, a manual differential will be performed. [place] Gran Abs 0.07(H) 0.00 - 0.04 x10(3)/ L [facility] Blood specimen (specimen) 05/29/2017 3:23 AM EST 05/29/2017 3:56 AM EST Narrative Resulting Agency Comment Spec In Lab Verónicaoswaldo Watters [employer] HEMATOLOGY ORDERAB LES Performing Organization Address City/State/[facility] Co de Phone Number [facility] [address] * (ABNORMAL) Hemogram (05/29/2017 3:23 AM EST) WBC 10.2(H) 4.0 - 9.5 x10(3)/[facility] LABORATORY RBC 2.63(L) 4.00 - 5.21 x10(6)/[facility] Hemoglobin 8.5(L) 11.7 - 15.5 gm/dL [facility] Hematocrit 25.3(L) 35.7 - 45.8 % [facility] MCV 96.2(H) 82.6 - 94.4 fL [facility] MCH 32.3(H) 27.1 - 32.0 pg [facility] MCHC 33.6 31.7 - 35.0 gm/dL [facility] Platelets 166 145 - 357 x10(3)/[facility] LABORATORY RDWSD 44.2 37.0 - 46.0 [facility] RDWCV 12.7 11.5 - 14.1 % [facility] MPV 10.7 7.6 - 12.9 [facility] nRBC % Auto 0.0 % [facility] nRBC Abs Auto 0.000 0.000 - 0.000 x10(3)/[facility] Blood specimen (specimen) 05/29/2017 3:23 AM EST 05/29/2017 3:56 AM EST Narrative Resulting Agency Comment Spec In Lab Verónica Patrice Duong KEN HEMATOLOGY ORDERAB LES Performing Organization Address [facility] Co de Phone Number [facility] [address] * Potassium (05/29/2017 3:23 AM EST) Potassium 3.9 3.5 - 5.0 mmol/L [facility] Comment: Please note: ??Patients with WBC >100,000 may have falsely elevated Potassium levels. ??For accurate Potassium quantification in these patients send serum separator tube (gold top) for subsequent determinations. ??Contact the Clinical Chemistry Laboratory if there are any questions. Blood specimen (specimen) 05/29/2017 3:23 AM EST 05/29/2017 3:56 AM EST Narrative Resulting Agency Comment Spec In Lab Verónica Patrice Duong KEN CHEMISTRY ORDERABL ES Performing Organization Address [facility] Phone Number [facility] [address] * (ABNORMAL) Prothrombin Time (05/29/2017 3:23 AM EST) PT 23.6(H) 11.8 - 14.0 sec [facility] INR 2.1(H) 0.9 - 1.1 [facility] Comment: An INR <2.0 indicates [...] depending on clinical circumstances. Blood specimen (specimen) 05/29/2017 3:23 AM EST 05/29/2017 3:56 AM EST Narrative Resulting Agency Comment Spec In Lab Verónica Patrice Duong KEN HEMATOLOGY ORDERAB LES Performing Organization Address [facility] Co de Phone Number [facility] [place] [address] * POCT Glucose (05/28/2017 3:39 PM EST) POC Glucose 127 65 - 199 mg/dL [facility] Comment: Supplemental ranges: <140 mg/dL before meals <180 mg/dL all other times of the day Blood specimen (specimen) 05/28/2017 3:39 PM EST 05/28/2017 3:39 PM EST Kuldeep Conner MD POINT OF CARE TEST ORDERABLES [facility] [address] * XR Chest PA & Lateral (Generic) (05/28/2017 12:22 PM EST) Anatomical Region Laterality Modality Chest N/A Digital Radiogra phy Impressions 05/28/2017 1:55 PM EST 1. ??Interval removal of the endotracheal tube, PA catheter, NG tube, and mediastinal drains. 2. ??No pneumothorax. 3. ??Small bilateral pleural effusions. I have personally reviewed the image(s) and the residents interpretation and agree with the findings, Serge Paris at 05/28/2017 1:55 PM Narrative 05/28/2017 1:55 PM EST EXAMINATION: XR CHEST PA AND LATERAL (GENERIC) CLINICAL HISTORY: s/p AVR TECHNIQUE: PA and lateral views of the chest COMPARISON: Chest radiograph dated 05/25/2017 FINDINGS: Interval removal of the endotracheal tube, PA catheter, NG tube, and mediastinal drains. Sternotomy wires and aortic valve replacement again noted. No pneumothorax. Small bilateral pleural effusions and bibasilar atelectasis. The lungs are otherwise clear. The beulah, pulmonary vasculature, and cardiomediastinal silhouette are unchanged. Procedure Note Serge Paris MD - 05/28/2017 EXAMINATION: XR CHEST PA AND LATERAL (GENERIC) CLINICAL HISTORY: s/p AVR TECHNIQUE: PA and lateral views of the chest COMPARISON: Chest radiograph dated 05/25/2017 FINDINGS: Interval removal of the endotracheal tube, PA catheter, NG tube, andmediastinal drains. Sternotomy wires and aortic valve replacement again noted. No pneumothorax. Small bilateral pleural effusions and bibasilaratelectasis. The lungs are otherwise clear. The beulah, pulmonary vasculature, and cardiomediastinal silhouette are unchanged. IMPRESSION 1. Interval removal of the endotracheal tube, PA catheter, NG tube, and mediastinal drains. 2. No pneumothorax. 3. Small bilateral pleural effusions. I have personally reviewed the image(s) and the residents interpretationand agree with the findings, Serge Paris at 05/28/2017 1:55 PM Verónica Watters APRN IMG DX ORDERABLES * POCT Glucose (05/28/2017 11:32 AM EST) POC Glucose 89 65 - 199 mg/dL [facility] Comment: Supplemental ranges: <140 mg/dL before meals <180 mg/dL all other times of the day Blood specimen (specimen) 05/28/2017 11:32 AM EST 05/28/2017 11:32 AM EST Kuldeep Conner MD POINT OF CARE TEST ORDERABLES Performing Organization Address City/[facility]/ZIP Co de Phone Number [facility] [place] [address] * POCT Glucose (05/28/2017 8:11 AM EST) POC Glucose 136 65 - 199 mg/dL [facility] Comment: Supplemental ranges: <140 mg/dL before meals <180 mg/dL all other times of the day Blood specimen (specimen) 05/28/2017 8:11 AM EST 05/28/2017 8:11 AM EST Kuldeep Conner MD POINT OF CARE TEST ORDERABLES Performing Organization Address City/[facility]/ZIP Co de Phone Number [facility] [place] [place] [address] * (ABNORMAL) Differential, Automated (05/28/2017 4:21 AM EST) Neutrophils % 76.8 % [facility] Neutr Abs (ANC) 10.05(H) 1.70 - 6.10 x10(3)/[facility] LABORATORY Lymphocytes % 12.8 % [facility] Lymphocytes Abs 1.7 0.9 - 3.2 x10(3)/[facility] LABORATORY Monocytes % 8.8 % [facility] Monocyte Abs 1.2(H) 0.3 - 0.9 x10(3)/[facility] LABORATORY Eosinophils % 0.8 % [facility] Eosinophils Abs 0.1 0.0 - 0.4 x10(3)/[facility] LABORATORY Basophils % 0.2 % [facility] Basophils Abs 0.0 0.0 - 0.1 x10(3)/[facility] LABORATORY Immature Gran % 0.60 % [facility] Comment: Immature granulocytes(IG's)percentage and absolute count will include metamyelocytes, myelocytes, and promyelocytes. Blood smears from CBCs yielding IG's will be scanned manually for concordance. If this scan disagrees with the automated IG or if promyelocytes are noted, a manual differential will be performed. [place] Gran Abs 0.08(H) 0.00 - 0.04 x10(3)/[facility] LABORATORY Blood specimen (specimen) 05/28/2017 4:21 AM EST 05/28/2017 4:50 AM EST Narrative Resulting Agency Comment Spec In Lab Verónica Watters APRN HEMATOLOGY ORDERAB LES [facility] [place] [address] * (ABNORMAL) Hemogram (05/28/2017 4:21 AM EST) WBC 13.1(H) 4.0 - 9.5 x10(3)/[facility] LABORATORY RBC 2.81(L) 4.00 - 5.21 x10(6)/[facility] LABORATORY Hemoglobin 9.0(L) 11.7 - 15.5 gm/dL [facility] Hematocrit 26.1(L) 35.7 - 45.8 % [facility] MCV 92.9 82.6 - 94.4 fL [facility] MCH 32.0 27.1 - 32.0 pg [facility] MCHC 34.5 31.7 - 35.0 gm/dL [facility] Platelets 146 145 - 357 x10(3)/[facility] RDWSD 43.9 37.0 - 46.0 [facility] RDWCV 12.9 11.5 - 14.1 % [facility] MPV 11.5 7.6 - 12.9 [facility] LABORATORY nRBC % Auto 0.0 % [facility] nRBC Abs Auto 0.000 0.000 - 0.000 x10(3)/[facility] LABORATORY Blood specimen (specimen) 05/28/2017 4:21 AM EST 05/28/2017 4:50 AM EST Narrative Resulting Agency Comment Spec In Lab Verónica Watters APRN HEMATOLOGY ORDERAB LES Performing Organization Address City/State/[facility] Co de Phone Number [facility] [place] [address] * (ABNORMAL) Prothrombin Time (05/28/2017 4:21 AM EST) PT 19.1(H) 11.8 - 14.0 sec [facility] INR 1.6(H) 0.9 - 1.1 [facility] Comment: An INR <2.0 indicates [...] depending on clinical circumstances. Blood specimen (specimen) 05/28/2017 4:21 AM EST 05/28/2017 4:50 AM EST Narrative Resulting Agency Comment Spec In Lab Verónica Watters APRN HEMATOLOGY ORDERAB LES Performing Organization Address City/State/[facility] Co de Phone Number [facility] [place] [address] * Heparin, low molecular weight assay (05/28/2017 4:21 AM EST) Heparin [id number] 0.39 IU/mL [facility] Comment: Guidelines for therapeutic unfractionated and low molecular weight heparin levels for the various formulations available in the [place] are summarized below. Anti-Xa levels should be determined in a plasma sample that has been drawn approximately 3-5 hours after a dose of LMWH and after steady-state has been reached. DRUG ?Dosing Schedule ?Target Peak Steady- State ? Anti-Xa Levels (Units/mL) Unfractionated ?Continuous infusion ?0.3-0.7 heparin Enoxaparin ?Twice daily ?0.6-1.0 Enoxararin ?Once daily ? Unknown,likely 1.0-1.5 Dalteparin ?Once daily ? 1.05 Tinzaparin ?Once daily ? 0.85 Monitoring prophylactic dose LMWH is not routinely performed, thus guidelines for target peak anti-Xa levels are not available. Levels between 0.2 and 0.5 u/ml may be appropriate. Note: Most clinical trials in which low molecular weight heparins were used to treat acute venous thrombolism did not use target anti-Xa levels to guide dosing, hence therapeutic levels have been determined retrospectively and have not been shown to correlate with drug efficacy. Blood specimen (specimen) 05/28/2017 4:21 AM EST 05/28/2017 4:51 AM EST Narrative Resulting Agency Comment Spec In Lab Verónica Watters APRN HEMATOLOGY ORDERAB LES [facility] [place] [address] * (ABNORMAL) Basic Metabolic Panel (non-fasting) (05/28/2017 4:21 AM EST) Glucose Lvl 105 65 - 199 mg/dL [facility] Comment:Diabetes: >=200 mg/d L plus symptoms BUN 16 8 - 18 mg/dL [facility] Creatinine 0.65(L) 0.70 - 1.20 mg/dL [facility] Sodium 141 135 - 145 mmol/L [facility] Potassium 4.1 3.5 - 5.0 mmol/L [facility] Comment: Please note: ??Patients with WBC >100,000 may have falsely elevated Potassium levels. ??For accurate Potassium quantification in these patients send serum separator tube (gold top) for subsequent determinations. ??Contact the Clinical Chemistry Laboratory if there are any questions. Chloride 98 98 - 107 mmol/L [facility] CO2 34(H) 22 - 31 mmol/L [facility] Anion Gap 9 5 - 15 mmol/L [facility] Calcium 8.5 8.5 - 10.5 mg/dL [facility] Estimated GFR >60 >=60 [facility] Comment: The reported eGFR should be multiplied by 1.2 for patients. The MDRD is not an appropriate measure of renal function for patients with body mass extremes or in patients with acute kidney failure. http://[email or web address]/DHnkdep http://[employer]/DHMCnkf Blood specimen (specimen) 05/28/2017 4:21 AM EST 05/28/2017 4:50 AM EST Narrative Resulting Agency Comment Spec In Lab Verónica Watters APRN CHEMISTRY ORDERABL ES Performing Organization Address [facility] Phone Number [facility] [place] [address] * POCT Glucose (05/27/2017 11:36 PM EST) [facility] POC Glucose 113 65 - 199 mg/dL [facility] Comment: Supplemental ranges: <140 mg/dL before meals <180 mg/dL all other times of the day Blood specimen (specimen) 05/27/2017 11:36 PM EST 05/27/2017 11:36 PM EST Kuldeep Conner MD POINT OF CARE TEST ORDERABLES Performing Organization Address [facility] Phone Number [facility] [place] [address] * Heparin, low molecular weight assay (05/27/2017 9:32 PM EST) [facility] Heparin [id number] 0.42 IU/mL [facility] Comment: Guidelines for therapeutic unfractionated and low molecular weight heparin levels for the various formulations available in the [place] are summarized below. Anti-Xa levels should be determined in a plasma sample that has been drawn approximately 3-5 hours after a dose of LMWH and after steady-state has been reached. DRUG ?Dosing Schedule ?Target Peak Steady- State ? Anti-Xa Levels (Units/mL) Unfractionated ?Continuous infusion ?0.3-0.7 heparin Enoxaparin ?Twice daily ?0.6-1.0 Enoxararin ?Once daily ? Unknown,likely 1.0-1.5 Dalteparin ?Once daily ? 1.05 Tinzaparin ?Once daily ? 0.85 Monitoring prophylactic dose LMWH is not routinely performed, thus guidelines for target peak anti-Xa levels are not available. Levels between 0.2 and 0.5 u/ml may be appropriate. Note: Most clinical trials in which low molecular weight heparins were used to treat acute venous thrombolism did not use target anti-Xa levels to guide dosing, hence therapeutic levels have been determined retrospectively and have not been shown to correlate with drug efficacy. Blood specimen (specimen) 05/27/2017 9:32 PM EST 05/27/2017 9:36 PM EST Narrative Resulting Agency Comment Spec In Lab Verónica Watters APRN HEMATOLOGY ORDERAB LES [facility] [place] [address] * POCT Glucose (05/27/2017 8:17 PM EST) POC Glucose 114 65 - 199 mg/dL [facility] Comment: Supplemental ranges: <140 mg/dL before meals <180 mg/dL all other times of the day Blood specimen (specimen) 05/27/2017 8:17 PM EST 05/27/2017 8:17 PM EST Kuldeep Conner MD POINT OF CARE TEST ORDERABLES Performing Organization Address [facility] de Phone Number [facility] [place] [place] [address] * POCT Glucose (05/27/2017 3:49 PM EST) [facility] POC Glucose 118 65 - 199 mg/dL [facility] Comment: Supplemental ranges: <140 mg/dL before meals <180 mg/dL all other times of the day Blood specimen (specimen) 05/27/2017 3:49 PM EST 05/27/2017 3:49 PM EST Kuldeep Conner MD POINT OF CARE TEST ORDERABLES Performing Organization Address [facility] de Phone Number [facility] [place] [address] * Heparin, low molecular weight assay (05/27/2017 3:30 PM EST) [facility] Heparin [id number] 0.34 IU/mL [facility] Comment: Guidelines for therapeutic unfractionated and low molecular weight heparin levels for the various formulations available in the are summarized below. Anti-Xa levels should be determined in a plasma sample that has been drawn approximately 3-5 hours after a dose of LMWH and after steady-state has been reached. DRUG ?Dosing Schedule ?Target Peak Steady- State ? Anti-Xa Levels (Units/mL) Unfractionated ?Continuous infusion ?0.3-0.7 heparin Enoxaparin ?Twice daily ?0.6-1.0 Enoxararin ?Once daily ? Unknown,likely 1.0-1.5 Dalteparin ?Once daily ? 1.05 Tinzaparin ?Once daily ? 0.85 Monitoring prophylactic dose LMWH is not routinely performed, thus guidelines for target peak anti-Xa levels are not available. Levels between 0.2 and 0.5 u/ml may be appropriate. Note: Most clinical trials in which low molecular weight heparins were used to treat acute venous thrombolism did not use target anti-Xa levels to guide dosing, hence therapeutic levels have been determined retrospectively and have not been shown to correlate with drug efficacy. Blood specimen (specimen) 05/27/2017 3:30 PM EST 05/27/2017 3:56 PM EST Narrative Resulting Agency Comment Spec In Lab Verónica Watters APRN HEMATOLOGY ORDERAB LES Performing Organization Address [facility] de Phone Number [facility] [place] [address] * POCT Glucose (05/27/2017 11:51 AM EST) POC Glucose 105 65 - 199 mg/dL [facility] Comment: Supplemental ranges: <140 mg/dL before meals <180 mg/dL all other times of the day Blood specimen (specimen) 05/27/2017 11:51 AM EST 05/27/2017 11:51 AM EST Kuldeep Conner MD POINT OF CARE TEST ORDERABLES Performing Organization Address [facility] Co de Phone Number [facility] [place] [address] * POCT Glucose (05/27/2017 7:37 AM EST) POC Glucose 111 65 - 199 mg/dL [facility] Comment: Supplemental ranges: <140 mg/dL before meals <180 mg/dL all other times of the day Blood specimen (specimen) 05/27/2017 7:37 AM EST 05/27/2017 7:37 AM EST Kuldeep Conner MD POINT OF CARE TEST ORDERABLES Performing Organization Address [facility] Co de Phone Number [facility] [place] [address] * POCT Glucose (05/27/2017 5:06 AM EST) Pathologist [facility] POC Glucose 105 65 - 199 mg/dL [facility] Comment: Supplemental ranges: <140 mg/dL before meals <180 mg/dL all other times of the day Blood specimen (specimen) 05/27/2017 5:06 AM EST 05/27/2017 5:06 AM EST Kuldeep Conner MD POINT OF CARE TEST ORDERABLES Performing Organization Address [facility] de Phone Number [facility] [place] [address] * Scan, Peripheral Blood (05/27/2017 5:05 AM EST) Pathologist [facility] Plat Estimate Decreased [facility] RBC Morphology Abnormal [facility] Ovalocytes 1-5 /HPF [facility] Blood specimen (specimen) 05/27/2017 5:05 AM EST 05/27/2017 5:30 AM EST Narrative Resulting Agency Comment Spec In Lab Verónica Watters APRN HEMATOLOGY ORDERAB LES Performing Organization Address [facility] Co de Phone Number [facility] [place] [address] * (ABNORMAL) Differential, Automated (05/27/2017 5:05 AM EST) Pathologist [facility] Neutrophils % 74.2 % [facility] Neutr Abs (ANC) 12.51(H) 1.70 - 6.10 x10(3)/mc L [facility] Lymphocytes % 15.5 % [facility] Lymphocytes Abs 2.6 0.9 - 3.2 x10(3)/[facility] LABORATORY Monocytes % 9.1 % [facility] Monocyte Abs 1.5(H) 0.3 - 0.9 x10(3)/[facility] LABORATORY Eosinophils % 0.3 % [facility] Eosinophils Abs 0.0 0.0 - 0.4 x10(3)/[facility] LABORATORY Basophils % 0.5 % [facility] Basophils Abs 0.1 0.0 - 0.1 x10(3)/[facility] LABORATORY Immature Gran % 0.40 % [facility] Comment: Immature granulocytes(IG's)percentage and absolute count will include metamyelocytes, myelocytes, and promyelocytes. Blood smears from CBCs yielding IG's will be scanned manually for concordance. If this scan disagrees with the automated IG or if promyelocytes are noted, a manual differential will be performed. [place] Gran Abs 0.07(H) 0.00 - 0.04 x10(3)/[facility] LABORATORY Blood specimen (specimen) 05/27/2017 5:05 AM EST 05/27/2017 5:30 AM EST Narrative Resulting Agency Comment Spec In Lab Verónica Watters APRN HEMATOLOGY ORDERAB LES Performing Organization Address City/State/[facility] Co de Phone Number [facility] [place] [address] * (ABNORMAL) Hemogram (05/27/2017 5:05 AM EST) WBC 16.8(H) 4.0 - 9.5 x10(3)/[facility] LABORATORY RBC 3.06(L) 4.00 - 5.21 x10(6)/[facility] LABORATORY Hemoglobin 10.0(L) 11.7 - 15.5 gm/dL [facility] Hematocrit 29.3(L) 35.7 - 45.8 % [facility] MCV 95.8(H) 82.6 - 94.4 fL [facility] MCH 32.7(H) 27.1 - 32.0 pg [facility] MCHC 34.1 31.7 - 35.0 gm/dL [facility] Platelets 140(L) 145 - 357 x10(3)/[facility] RDWSD 45.4 37.0 - 46.0 [facility] RDWCV 13.0 11.5 - 14.1 % [facility] MPV 11.1 7.6 - 12.9 [facility] LABORATORY nRBC % Auto 0.0 % [facility] nRBC Abs Auto 0.000 0.000 - 0.000 x10(3)/[facility] LABORATORY Blood specimen (specimen) 05/27/2017 5:05 AM EST 05/27/2017 5:30 AM EST Narrative Resulting Agency Comment Spec In Lab Verónica Watters APRN HEMATOLOGY ORDERAB LES Performing Organization Address City/State/[facility] Co de Phone Number [facility] [place] [address] * Heparin, low molecular weight assay (05/27/2017 5:05 AM EST) Heparin [id number] 0.46 IU/mL [facility] Comment: Guidelines for therapeutic unfractionated and low molecular weight heparin levels for the various formulations available in the [place] are summarized below. Anti-Xa levels should be determined in a plasma sample that has been drawn approximately 3-5 hours after a dose of LMWH and after steady-state has been reached. DRUG ?Dosing Schedule ?Target Peak Steady- State ? Anti-Xa Levels (Units/mL) Unfractionated ?Continuous infusion ?0.3-0.7 heparin Enoxaparin ?Twice daily ?0.6-1.0 Enoxararin ?Once daily ? Unknown,likely 1.0-1.5 Dalteparin ?Once daily ? 1.05 Tinzaparin ?Once daily ? 0.85 Monitoring prophylactic dose LMWH is not routinely performed, thus guidelines for target peak anti-Xa levels are not available. Levels between 0.2 and 0.5 u/ml may be appropriate. Note: Most clinical trials in which low molecular weight heparins were used to treat acute venous thrombolism did not use target anti-Xa levels to guide dosing, hence therapeutic levels have been determined retrospectively and have not been shown to correlate with drug efficacy. Blood specimen (specimen) 05/27/2017 5:05 AM EST 05/27/2017 5:30 AM EST Narrative Resulting Agency Comment Spec In Lab Verónica Watters APRN HEMATOLOGY ORDERAB LES [facility] [place] [place] [address] * Potassium (05/27/2017 5:05 AM EST) Potassium 4.7 3.5 - 5.0 mmol/L [facility] Comment: Please note: ??Patients with WBC >100,000 may have falsely elevated Potassium levels. ??For accurate Potassium quantification in these patients send serum separator tube (gold top) for subsequent determinations. ??Contact the Clinical Chemistry Laboratory if there are any questions. Blood specimen (specimen) 05/27/2017 5:05 AM EST 05/27/2017 5:30 AM EST Narrative Resulting Agency Comment Spec In Lab Verónica Watters APRN CHEMISTRY ORDERABL ES [facility] [place] [address] * (ABNORMAL) Prothrombin Time (05/27/2017 5:05 AM EST) Pathologist [facility] PT 15.8(H) 11.8 - 14.0 sec [facility] INR 1.3(H) 0.9 - 1.1 [facility] Comment: An INR <2.0 indicates [...] depending on clinical circumstances. Blood specimen (specimen) 05/27/2017 5:05 AM EST 05/27/2017 5:31 AM EST Narrative Resulting Agency Comment Spec In Lab Verónica Watters APRN HEMATOLOGY ORDERAB LES Performing Organization Address City/[facility]/ZIP Co de Phone Number [facility] [place] [address] * POCT Glucose (05/27/2017 1:25 AM EST) Pathologist [facility] POC Glucose 116 65 - 199 mg/dL [facility] Comment: Supplemental ranges: <140 mg/dL before meals <180 mg/dL all other times of the day Blood specimen (specimen) 05/27/2017 1:25 AM EST 05/27/2017 1:25 AM EST Kuldeep Conner MD POINT OF CARE TEST ORDERABLES Performing Organization Address City/[facility]/ZIP Co de Phone Number [facility] [place] [address] * Heparin, low molecular weight assay (05/26/2017 11:40 PM EST) [facility] Signature Heparin [id number] 0.55 IU/mL [facility] Comment: Guidelines for therapeutic unfractionated and low molecular weight heparin levels for the various formulations available in the [place] are summarized below. Anti-Xa levels should be determined in a plasma sample that has been drawn approximately 3-5 hours after a dose of LMWH and after steady-state has been reached. DRUG ?Dosing Schedule ?Target Peak Steady- State ? Anti-Xa Levels (Units/mL) Unfractionated ?Continuous infusion ?0.3-0.7 heparin Enoxaparin ?Twice daily ?0.6-1.0 Enoxararin ?Once daily ? Unknown,likely 1.0-1.5 Dalteparin ?Once daily ? 1.05 Tinzaparin ?Once daily ? 0.85 Monitoring prophylactic dose LMWH is not routinely performed, thus guidelines for target peak anti-Xa levels are not available. Levels between 0.2 and 0.5 u/ml may be appropriate. Note: Most clinical trials in which low molecular weight heparins were used to treat acute venous thrombolism did not use target anti-Xa levels to guide dosing, hence therapeutic levels have been determined retrospectively and have not been shown to correlate with drug efficacy. Blood specimen (specimen) 05/26/2017 11:40 PM EST 05/27/2017 1:29 AM EST Narrative Resulting Agency Comment Spec In Lab Verónica Watters APRN HEMATOLOGY ORDERAB LES Performing Organization Address [facility] de Phone Number [facility] [place] [address] * POCT Glucose (05/26/2017 11:38 PM EST) POC Glucose 110 65 - 199 mg/dL [facility] Comment: Supplemental ranges: <140 mg/dL before meals <180 mg/dL all other times of the day Blood specimen (specimen) 05/26/2017 11:38 PM EST 05/26/2017 11:38 PM EST Kuldeep Conner MD POINT OF CARE TEST ORDERABLES Performing Organization Address [facility] de Phone Number [facility] [place] [address] * POCT Glucose (05/26/2017 10:06 PM EST) POC Glucose 156 65 - 199 mg/dL [facility] Comment: Supplemental ranges: <140 mg/dL before meals <180 mg/dL all other times of the day Blood specimen (specimen) 05/26/2017 10:06 PM EST 05/26/2017 10:06 PM EST Kuldeep Conner MD POINT OF CARE TEST ORDERABLES Performing Organization Address [facility] Co de Phone Number [facility] [place] [address] * POCT Glucose (05/26/2017 7:43 PM EST) POC Glucose 117 65 - 199 mg/dL [facility] Comment: Supplemental ranges: <140 mg/dL before meals <180 mg/dL all other times of the day Blood specimen (specimen) 05/26/2017 7:43 PM EST 05/26/2017 7:43 PM EST Kuldeep Conner MD POINT OF CARE TEST ORDERABLES Performing Organization Address [facility] Co de Phone Number [facility] [place] [address] * POCT Glucose (05/26/2017 5:54 PM EST) [facility] POC Glucose 116 65 - 199 mg/dL [facility] Comment: Supplemental ranges: <140 mg/dL before meals <180 mg/dL all other times of the day Blood specimen (specimen) 05/26/2017 5:54 PM EST 05/26/2017 5:54 PM EST Kuldeep Conner MD POINT OF CARE TEST ORDERABLES Performing Organization Address [facility] de Phone Number [facility] [place] [address] * Heparin, low molecular weight assay (05/26/2017 5:50 PM EST) [facility] Heparin [id number] 0.34 IU/mL [facility] Comment: Guidelines for therapeutic unfractionated and low molecular weight heparin levels for the various formulations available in the are summarized below. Anti-Xa levels should be determined in a plasma sample that has been drawn approximately 3-5 hours after a dose of LMWH and after steady-state has been reached. DRUG ?Dosing Schedule ?Target Peak Steady- State ? Anti-Xa Levels (Units/mL) Unfractionated ?Continuous infusion ?0.3-0.7 heparin Enoxaparin ?Twice daily ?0.6-1.0 Enoxararin ?Once daily ? Unknown,likely 1.0-1.5 Dalteparin ?Once daily ? 1.05 Tinzaparin ?Once daily ? 0.85 Monitoring prophylactic dose LMWH is not routinely performed, thus guidelines for target peak anti-Xa levels are not available. Levels between 0.2 and 0.5 u/ml may be appropriate. Note: Most clinical trials in which low molecular weight heparins were used to treat acute venous thrombolism did not use target anti-Xa levels to guide dosing, hence therapeutic levels have been determined retrospectively and have not been shown to correlate with drug efficacy. Blood specimen (specimen) 05/26/2017 5:50 PM EST 05/26/2017 6:15 PM EST Narrative Resulting Agency Comment Spec In Lab Verónica Watters APRN HEMATOLOGY ORDERAB LES Performing Organization Address [facility] Co de Phone Number [facility] [place] [address] * POCT Glucose (05/26/2017 3:56 PM EST) POC Glucose 109 65 - 199 mg/dL [facility] Comment: Supplemental ranges: <140 mg/dL before meals <180 mg/dL all other times of the day Blood specimen (specimen) 05/26/2017 3:56 PM EST 05/26/2017 3:56 PM EST Kuldeep Conner MD POINT OF CARE TEST ORDERABLES Performing Organization Address [facility] Co de Phone Number [facility] [place] [address] * POCT Glucose (05/26/2017 2:34 PM EST) POC Glucose 122 65 - 199 mg/dL [facility] Comment: Supplemental ranges: <140 mg/dL before meals <180 mg/dL all other times of the day Blood specimen (specimen) 05/26/2017 2:34 PM EST 05/26/2017 2:34 PM EST Kuldeep Conner MD POINT OF CARE TEST ORDERABLES Performing Organization Address City/[facility]/ZIP Co de Phone Number [facility] [address] * POCT Glucose (05/26/2017 11:30 AM EST) Pathologist [facility] POC Glucose 114 65 - 199 mg/dL [facility] Comment: Supplemental ranges: <140 mg/dL before meals <180 mg/dL all other times of the day Blood specimen (specimen) 05/26/2017 11:30 AM EST 05/26/2017 11:30 AM EST Kuldeep Conner MD POINT OF CARE TEST ORDERABLES Performing Organization Address [facility] Co de Phone Number [facility] [address] * (ABNORMAL) Differential, Automated (05/26/2017 9:40 AM EST) Pathologist [facility] Neutrophils % 85.5 % [facility] Neutr Abs (ANC) 15.37(H) 1.70 - 6.10 x10(3)/mc L [facility] Lymphocytes % 6.0 % [facility] Lymphocytes Abs 1.1 0.9 - 3.2 x10(3)/mc L [facility] Monocytes % 7.8 % [facility] Monocyte Abs 1.4(H) 0.3 - 0.9 x10(3)/mc L [facility] Eosinophils % 0.0 % [facility] Eosinophils Abs 0.0 0.0 - 0.4 x10(3)/mc L [facility] Basophils % 0.2 % [facility] Basophils Abs 0.0 0.0 - 0.1 x10(3)/mc L [facility] Immature Gran % 0.50 % [facility] Comment: Immature granulocytes(IG's)percentage and absolute count will include metamyelocytes, myelocytes, and promyelocytes. Blood smears from CBCs yielding IG's will be scanned manually for concordance. If this scan disagrees with the automated IG or if promyelocytes are noted, a manual differential will be performed. [place] Gran Abs 0.09(H) 0.00 - 0.04 x10(3)/ L [facility] Blood specimen (specimen) 05/26/2017 9:40 AM EST 05/26/2017 9:55 AM EST Narrative Resulting Agency Comment Spec In Lab Verónica Watters APRN HEMATOLOGY ORDERAB LES [facility] [place] [place] [address] * (ABNORMAL) Hemogram (05/26/2017 9:40 AM EST) WBC 18.0(H) 4.0 - 9.5 x10(3)/[facility] LAB[facility]AT[facility] RBC 3.51(L) 4.00 - 5.21 x10(6)/[facility] Hemoglobin 11.7 11.7 - 15.5 gm/dL [facility] Hematocrit 32.6(L) 35.7 - 45.8 % [facility] MCV 92.9 82.6 - 94.4 fL [facility] MCH 33.3(H) 27.1 - 32.0 pg [facility] MCHC 35.9(H) 31.7 - 35.0 gm/dL [facility] Platelets 140(L) 145 - 357 x10(3)/[facility] RDWSD 43.6 37.0 - 46.0 [facility] RDWCV 12.9 11.5 - 14.1 % [facility] MPV 11.0 7.6 - 12.9 [facility] nRBC % Auto 0.0 % [facility] nRBC Abs Auto 0.000 0.000 - 0.000 x10(3)/mcL [facility] Blood specimen (specimen) 05/26/2017 9:40 AM EST 05/26/2017 9:55 AM EST Narrative Resulting Agency Comment Spec In Lab Verónica Patrice Dianespencer KEN HEMATOLOGY ORDERAB LES Performing Organization Address [facility] Co de Phone Number [facility] [address] * (ABNORMAL) Prothrombin Time (05/26/2017 9:40 AM EST) PT 14.1(H) 11.8 - 14.0 sec [facility] INR 1.1 0.9 - 1.1 [facility] Comment: An INR <2.0 indicates [...] depending on clinical circumstances. Blood specimen (specimen) 05/26/2017 9:40 AM EST 05/26/2017 9:55 AM EST Narrative Resulting Agency Comment Spec In Lab Verónica Watters APRN HEMATOLOGY ORDERAB LES Performing Organization Address City/[facility] Co de Phone Number [facility] [address] * APTT (05/26/2017 9:40 AM EST) PTT 34 25 - 35 sec [facility] Comment: The recommended therapeutic range for full dose, unfractionated heparin at [facility] is 80 ? 114 seconds. The use of the anti-Xa (heparin) level rather than the PTT is recommended for monitoring anticoagulation intensity in critically ill patients receiving unfractionated heparin by continuous IV infusion. Blood specimen (specimen) 05/26/2017 9:40 AM EST 05/26/2017 9:55 AM EST Narrative Resulting Agency Comment Spec In Lab Verónica Watters APRN HEMATOLOGY ORDERAB LES Performing Organization Address [facility] Co de Phone Number [facility] [place] [address] * POCT Glucose (05/26/2017 9:36 AM EST) POC Glucose 118 65 - 199 mg/dL [facility] Comment: Supplemental ranges: <140 mg/dL before meals <180 mg/dL all other times of the day Blood specimen (specimen) 05/26/2017 9:36 AM EST 05/26/2017 9:36 AM EST Kuldeep Conner MD POINT OF CARE TEST ORDERABLES Performing Organization Address [facility] de Phone Number [facility] [address] * POCT Glucose (05/26/2017 8:00 AM EST) POC Glucose 135 65 - 199 mg/dL [facility] Comment: Supplemental ranges: <140 mg/dL before meals <180 mg/dL all other times of the day Blood specimen (specimen) 05/26/2017 8:00 AM EST 05/26/2017 8:00 AM EST Kuldeep Conner MD POINT OF CARE TEST ORDERABLES Performing Organization Address [facility] Co de Phone Number [facility] [place] [address] * POCT Glucose (05/26/2017 6:56 AM EST) POC Glucose 149 65 - 199 mg/dL [facility] Comment: Supplemental ranges: <140 mg/dL before meals <180 mg/dL all other times of the day Blood specimen (specimen) 05/26/2017 6:56 AM EST 05/26/2017 6:56 AM EST Kuldeep Conner MD POINT OF CARE TEST ORDERABLES [facility] [place] [address] * POCT Glucose (05/26/2017 6:11 AM EST) [facility] POC Glucose 99 65 - 199 mg/dL [facility] Comment: Supplemental ranges: <140 mg/dL before meals <180 mg/dL all other times of the day Blood specimen (specimen) 05/26/2017 6:11 AM EST 05/26/2017 6:11 AM EST Kuldeep Conner MD POINT OF CARE TEST ORDERABLES Performing Organization Address City/[facility] Co de Phone Number [facility] [place] [address] * (ABNORMAL) Differential, Automated (05/26/2017 4:00 AM EST) [facility] Neutrophils % 86.7 % [facility] Neutr Abs (ANC) 14.43(H) 1.70 - 6.10 x10(3)/mc L [facility] Lymphocytes % 5.2 % [facility] Lymphocytes Abs 0.9 0.9 - 3.2 x10(3)/mc L [facility] Monocytes % 7.4 % [facility] Monocyte Abs 1.2(H) 0.3 - 0.9 x10(3)/mc L [facility] Eosinophils % 0.0 % [facility] Eosinophils Abs 0.0 0.0 - 0.4 x10(3)/mc L [facility] Basophils % 0.2 % [facility] Basophils Abs 0.0 0.0 - 0.1 x10(3)/mc L [facility] Immature Gran % 0.50 % [facility] Comment: Immature granulocytes(IG's)percentage and absolute count will include metamyelocytes, myelocytes, and promyelocytes. Blood smears from CBCs yielding IG's will be scanned manually for concordance. If this scan disagrees with the automated IG or if promyelocytes are noted, a manual differential will be performed. [place] Gran Abs 0.09(H) 0.00 - 0.04 x10(3)/ L [facility] Blood specimen (specimen) 05/26/2017 4:00 AM EST 05/26/2017 4:24 AM EST Narrative Resulting Agency Comment Spec In Lab Carmelo GONZALES HEMATOLOGY ORDER ADRIANA [facility] [place] [address] * (ABNORMAL) Hemogram (05/26/2017 4:00 AM EST) WBC 16.6(H) 4.0 - 9.5 x10(3)/[facility] LABORATORY RBC 3.40(L) 4.00 - 5.21 x10(6)/[facility] Hemoglobin 11.2(L) 11.7 - 15.5 gm/dL [facility] Hematocrit 31.5(L) 35.7 - 45.8 % [facility] MCV 92.6 82.6 - 94.4 fL [facility] MCH 32.9(H) 27.1 - 32.0 pg [facility] MCHC 35.6(H) 31.7 - 35.0 gm/dL [facility] Platelets 128(L) 145 - 357 x10(3)/[facility] RDWSD 43.3 37.0 - 46.0 fL [facility] RDWCV 12.8 11.5 - 14.1 % [facility] MPV 11.2 7.6 - 12.9 [facility] nRBC % Auto 0.0 % [facility] nRBC Abs Auto 0.000 0.000 - 0.000 x10(3)/[facility] Blood specimen (specimen) 05/26/2017 4:00 AM EST 05/26/2017 4:24 AM EST Narrative Resulting Agency Comment Spec In Lab Carmelo GONZALES HEMATOLOGY ORDER ADRIANA Performing Organization Address [facility] Co de Phone Number [facility] [place] [address] * POCT Glucose (05/26/2017 4:00 AM EST) POC Glucose 96 65 - 199 mg/dL [facility] Comment: Supplemental ranges: <140 mg/dL before meals <180 mg/dL all other times of the day Blood specimen (specimen) 05/26/2017 4:00 AM EST 05/26/2017 4:00 AM EST Kuldeep Conner MD POINT OF CARE TEST ORDERABLES Performing Organization Address [facility] Phone Number [facility] [place] [address] * Electrolytes panel (05/26/2017 4:00 AM EST) Sodium 142 135 - 145 mmol/L [facility] Potassium 4.7 3.5 - 5.0 mmol/L [facility] Comment: Please note: ??Patients with WBC >100,000 may have falsely elevated Potassium levels. ??For accurate Potassium quantification in these patients send serum separator tube (gold top) for subsequent determinations. ??Contact the Clinical Chemistry Laboratory if there are any questions. Chloride 106 98 - 107 mmol/L [facility] CO2 24 22 - 31 mmol/L [facility] Anion Gap 12 5 - 15 mmol/L [facility] Blood specimen (specimen) 05/26/2017 4:00 AM EST 05/26/2017 4:25 AM EST Narrative Resulting Agency Comment Spec In Lab Kuldeep Conner MD CHEMISTRY ORDERABLE S Performing Organization Address [facility]/State/ZIP Co de Phone Number [facility] [place] [address] * (ABNORMAL) Cardiac Enzymes (LEB/CGP) (05/26/2017 4:00 AM EST) Troponin-T 0.34(H) 0.00 - 0.00 ng/mL [facility] Comment: The 99th percentile for Troponin T is less than 0.01 ng/mL, any detectable cTnT concentration using this assay should be considered elevated. According to the third universal definition of myocardial infarction the following criteria with a clinical presentation consistent with acute myocardial ischemia meets the diagnosis for a myocardial infarction (CT). Detection of a rise and/or fall of cTnT, with at least one value greater than the 99th percentile (> or = 0.01) and with at least one of the following ?? Symptoms of ischemia ?? New or presumed new significant OB-[id number] wave (ST-T) changes or new left bundle [...] additional sample may be indicated. Reference: Third [place] Definition of Myocardial Infarction. Journal of the [place] [employer] 2012;60:1581-98 CK, Total 388(H) 0 - 160 unit/L [facility] Blood specimen (specimen) 05/26/2017 4:00 AM EST 05/26/2017 4:24 AM EST Narrative Resulting Agency Comment Spec In Lab Kuldeep Conner MD CHEMISTRY ORDERABLE S [facility] [place] [address] * (ABNORMAL) Glucose, fasting (05/26/2017 4:00 AM EST) Glucose Fasting 136(H) 65 - 99 mg/dL [facility] Comment: ?Fasting* Glucose Interpretive Criteria Normal ?65-99 mg/dL Impaired Fasting glucose ?100-125 mg/dL Consistent with Diabetes Mellitus ? >or= 126 mg/dL *Fasting is defined as no caloric intake for at least 8 hours In the absence of unequivocal hyperglycemia a plasma glucose value of >or= 126 mg/dL should be repeated on a subsequent day. Diagnosis and Classification of Diabetes Mellitus, Position Statement from the [place] [employer]. ??Diabetes Care, Volume 33, Supplement 1, Apr 2009 Blood specimen (specimen) 05/26/2017 4:00 AM EST 05/26/2017 4:24 AM EST Narrative Resulting Agency Comment Spec In Lab Kuldeep Conner MD CHEMISTRY ORDERABLE S Performing Organization Address [facility] de Phone Number [facility] [place] [address] * (ABNORMAL) Creatinine (05/26/2017 4:00 AM EST) Creatinine 0.65(L) 0.70 - 1.20 mg/dL [facility] Estimated GFR >60 >=60 [facility] Comment: The reported eGFR should be multiplied by 1.2 for patients. The MDRD is not an appropriate measure of renal function for patients with body mass extremes or in patients with acute kidney failure. http://[email or web address]/DHnkdep [email or web address]://[email or web address] Blood specimen (specimen) 05/26/2017 4:00 AM EST 05/26/2017 4:24 AM EST Narrative Resulting Agency Comment Spec In Lab Kuldeep Conner MD CHEMISTRY ORDERABLE S Performing Organization Address [facility] de Phone Number [facility] [place] [address] * BUN (05/26/2017 4:00 AM EST) BUN 14 8 - 18 mg/dL [facility] Blood specimen (specimen) 05/26/2017 4:00 AM EST 05/26/2017 4:24 AM EST Narrative Resulting Agency Comment Spec In Lab Kuldeep Conner MD CHEMISTRY ORDERABLE S Performing Organization Address City/[facility]/ZIP Co de Phone Number [facility] [address] * POCT Glucose (05/26/2017 2:58 AM EST) POC Glucose 143 65 - 199 mg/dL [facility] Comment: Supplemental ranges: <140 mg/dL before meals <180 mg/dL all other times of the day Blood specimen (specimen) 05/26/2017 2:58 AM EST 05/26/2017 2:58 AM EST Kuldeep Conner MD POINT OF CARE TEST ORDERABLES Performing Organization Address [facility]/ZIP Co de Phone Number [facility] [place] [address] * POCT Glucose (05/26/2017 2:06 AM EST) POC Glucose 137 65 - 199 mg/dL [facility] Comment: Supplemental ranges: <140 mg/dL before meals <180 mg/dL all other times of the day Blood specimen (specimen) 05/26/2017 2:06 AM EST 05/26/2017 2:06 AM EST Kuldeep Conner MD POINT OF CARE TEST ORDERABLES Performing Organization Address City/[facility]/ZIP Co de Phone Number [facility] [address] * POCT Glucose (05/26/2017 12:56 AM EST) POC Glucose 133 65 - 199 mg/dL [facility] Comment: Supplemental ranges: <140 mg/dL before meals <180 mg/dL all other times of the day Blood specimen (specimen) 05/26/2017 12:56 AM EST 05/26/2017 12:56 AM EST Kuldeep Conner MD POINT OF CARE TEST ORDERABLES Performing Organization Address City/[facility]/ZIP Co de Phone Number [facility] [address] * POCT Glucose (05/26/2017 12:06 AM EST) POC Glucose 116 65 - 199 mg/dL [facility] Comment: Supplemental ranges: <140 mg/dL before meals <180 mg/dL all other times of the day Blood specimen (specimen) 05/26/2017 12:06 AM EST 05/26/2017 12:06 AM EST Kuldeep Conner MD POINT OF CARE TEST ORDERABLES Performing Organization Address [facility] Co de Phone Number [facility] [place] [address] * POCT Glucose (05/25/2017 11:22 PM EST) POC Glucose 106 65 - 199 mg/dL [facility] Comment: Supplemental ranges: <140 mg/dL before meals <180 mg/dL all other times of the day Blood specimen (specimen) 05/25/2017 11:22 PM EST 05/25/2017 11:22 PM EST Kuldeep Conner MD POINT OF CARE TEST ORDERABLES Performing Organization Address City/[facility]/ZIP Co de Phone Number [facility] [address] * POCT Glucose (05/25/2017 10:54 PM EST) POC Glucose 99 65 - 199 mg/dL [facility] Comment: Supplemental ranges: <140 mg/dL before meals <180 mg/dL all other times of the day Blood specimen (specimen) 05/25/2017 10:54 PM EST 05/25/2017 10:54 PM EST Kuldeep Conner MD POINT OF CARE TEST ORDERABLES Performing Organization Address [facility] de Phone Number [facility] [address] * POCT Glucose (05/25/2017 10:05 PM EST) POC Glucose 139 65 - 199 mg/dL [facility] Comment: Supplemental ranges: <140 mg/dL before meals <180 mg/dL all other times of the day Blood specimen (specimen) 05/25/2017 10:05 PM EST 05/25/2017 10:05 PM EST Kuldeep Conner MD POINT OF CARE TEST ORDERABLES Performing Organization Address [facility] Phone Number [facility] [address] * POCT Glucose (05/25/2017 9:02 PM EST) POC Glucose 167 65 - 199 mg/dL [facility] Comment: Supplemental ranges: <140 mg/dL before meals <180 mg/dL all other times of the day Blood specimen (specimen) 05/25/2017 9:02 PM EST 05/25/2017 9:02 PM EST Kuldeep Conner MD POINT OF CARE TEST ORDERABLES Performing Organization Address [facility] de Phone Number [facility] [address] * (ABNORMAL) BLOOD GAS 2 ARTERIAL (05/25/2017 7:44 PM EST) pH Art 7.33(L) 7.35 - 7.45 [facility] pCO2 Art 43 35 - 45 mmHg [facility] pO2 Art 108(H) 85 - 104 mmHg [facility] HCO3 Art 21.9 20.0 - 26.0 mmol/L [facility] BE Art -4.1(L) -3.0 - 3.0 mmol/L [facility] Hgb Blood Gas 11.7(L) 11.7 - 15.5 gm/dL [facility] O2HB Art 95.5 94.0 - 97.0 % [facility] COHB Art 0.3 % [facility] Comment: Nonsmokers: 0.5-1.5% COHB Smokers: Variable, but usually less than 10% Toxic: 20-30% COHB Lethal: Greater than 60% COHB METHB Art 0.9 <=1.5 % [facility] Na Whole Blood 140 135 - 145 mmol/L [facility] K Whole Blood 4.2 3.5 - 5.0 mmol/L [facility] Comment: Please note: Patients with WBC >100,000 may have falsely elevated Potassium levels. Contact the Clinical Chemistry Laboratory if there are any questions. ICa Whole Blood 1.10(L) 1.15 - 1.33 mmol/L [facility] Comment: Note: ??Total bilirubin higher than 20 mg/dL may lead to falsely low ionized calcium. CL Whole Blood 109(H) 98 - 107 mmol/L [facility] Gluc Whole Bld 169 65 - 199 mg/dL [facility] Comment:Diabetes: >=200 mg/d L plus symptoms. Lactate WB 1.4 0.5 - 2.2 mmol/L [facility] FIO2 Art 40 % [facility] PF Ratio Art 270 [facility] Blood specimen (specimen) 05/25/2017 7:44 PM EST 05/25/2017 7:44 PM EST Bienvenido Wong MD CHEMISTRY ORDERABLES [facility] [place] [address] * POCT Glucose (05/25/2017 7:41 PM EST) POC Glucose 177 65 - 199 mg/dL [facility] Comment: Supplemental ranges: <140 mg/dL before meals <180 mg/dL all other times of the day Blood specimen (specimen) 05/25/2017 7:41 PM EST 05/25/2017 7:41 PM EST Bienvenido Wong MD POINT OF CARE TEST O RDERABLES Performing Organization Address [facility]/ZIP Co de Phone Number [facility] [address] * (ABNORMAL) Hemoglobin (05/25/2017 7:40 PM EST) Hemoglobin 10.8(L) 11.7 - 15.5 gm/dL [facility] Blood specimen (specimen) 05/25/2017 7:40 PM EST 05/25/2017 7:51 PM EST Narrative Resulting Agency Comment Spec In Lab Kuldeep Conner MD HEMATOLOGY ORDERABL ES Performing Organization Address [facility] Co de Phone Number [facility] [place] [address] * Potassium (05/25/2017 7:40 PM EST) Pathologist [facility] Potassium 4.4 3.5 - 5.0 mmol/L [facility] Comment: Please note: ??Patients with WBC >100,000 may have falsely elevated Potassium levels. ??For accurate Potassium quantification in these patients send serum separator tube (gold top) for subsequent determinations. ??Contact the Clinical Chemistry Laboratory if there are any questions. Blood specimen (specimen) 05/25/2017 7:40 PM EST 05/25/2017 7:51 PM EST Narrative Resulting Agency Comment Spec In Lab Kuldeep Conner MD CHEMISTRY ORDERABLE S Performing Organization Address [facility] Co de Phone Number [facility] [place] [address] * POCT Glucose (05/25/2017 5:08 PM EST) POC Glucose 132 65 - 199 mg/dL [facility] Comment: Supplemental ranges: <140 mg/dL before meals <180 mg/dL all other times of the day Blood specimen (specimen) 05/25/2017 5:08 PM EST 05/25/2017 5:08 PM EST Bienvenido Wong MD POINT OF CARE TEST O RDERABLES Performing Organization Address [facility]/ZIP Co de Phone Number [facility] [place] [address] * Prepare Albumin 5% in 250 mL (05/25/2017 4:18 PM EST) Dispensed? Yes [facility] [facility] Blood specimen (specimen) No Charge / Unknown 05/25/2017 4:18 PM EST 05/25/2017 4:19 PM EST Narrative Resulting Agency Comment Spec In Lab Kuldeep Conner MD BLOOD BANK LAB [facility]OR Performing Organization Address [facility] Co de Phone Number [facility] [place] [place] [address] * XR Chest PA or AP 1 view (05/25/2017 3:32 PM EST) Anatomical Region Laterality Modality Chest N/A Digital Radiogra phy Narrative 05/25/2017 3:48 PM EST EXAMINATION: XR CHEST PA OR AP 1 VIEW CLINICAL HISTORY: [facility] avr TECHNIQUE: AP portable chest COMPARISON: 05/18/2017 FINDINGS: Postsurgical and instrumentation of AVR repair. An endotracheal tube terminates approximately 5 cm above the sharon. An enteric tube terminates within the stomach. Side port has passed the gastroesophageal junction. Two mediastinal drainages are noted. A [place] catheter terminates at the likely position of the outflow tract of the pulmonary trunk. If a position in the right pulmonary artery is required advance for approximately 7.5 cm. No pneumothorax. Cardiomediastinal contours are magnified. Trace of atelectasis at both bases. No pleural effusions. Procedure Note Allison Davis MD - 05/25/2017 EXAMINATION: XR CHEST PA OR AP 1 VIEW CLINICAL HISTORY: [facility] avr TECHNIQUE: AP portable chest COMPARISON: 05/18/2017 FINDINGS: Postsurgical and instrumentation of AVR repair. An endotracheal tube terminates approximately 5 cm above the sharon. An enteric tube terminates within the stomach. Side port has passed the gastroesophageal junction. Two mediastinal drainages are noted. A [place] catheter terminates at the likely position of the outflowtract of the pulmonary trunk. If a position in the right pulmonary artery isrequired advance for approximately 7.5 cm. No pneumothorax. Cardiomediastinal contours are magnified. Trace of atelectasis at both bases. No pleural effusions. Electronically signed by: ALLISON DAVIS Radiology, 05/25/2017 3:48 PM Kuldeep Conner MD IMG DX ORDERABLES * (ABNORMAL) BLOOD GAS 2 ARTERIAL (05/25/2017 3:22 PM EST) pH Art 7.42 7.35 - 7.45 [facility] pCO2 Art 38 35 - 45 mmHg [facility] pO2 Art 470(H) 85 - 104 mmHg [facility] HCO3 Art 24.1 20.0 - 26.0 mmol/L [facility] BE Art -0.4 -3.0 - 3.0 mmol/L [facility] Hgb Blood Gas 12.7 11.7 - 15.5 gm/dL [facility] O2HB Art 97.9(H) 94.0 - 97.0 % [facility] COHB Art 0.3 % [facility] Comment: Nonsmokers: 0.5-1.5% COHB Smokers: Variable, but usually less than 10% Toxic: 20-30% COHB Lethal: Greater than 60% COHB METHB Art 0.8 <=1.5 % [facility] Na Whole Blood 139 135 - 145 mmol/L [facility] K Whole Blood 3.9 3.5 - 5.0 mmol/L [facility] Comment: Please note: Patients with WBC >100,000 may have falsely elevated Potassium levels. Contact the Clinical Chemistry Laboratory if there are any questions. ICa Whole Blood 1.10(L) 1.15 - 1.33 mmol/L [facility] Comment: Note: ??Total bilirubin higher than 20 mg/dL may lead to falsely low ionized calcium. CL Whole Blood 108(H) 98 - 107 mmol/L [facility] Gluc Whole Bld 123 65 - 199 mg/dL [facility] Comment:Diabetes: >=200 mg/d L plus symptoms. Lactate WB 1.2 0.5 - 2.2 mmol/L [facility] FIO2 Art 100 % [facility] PF Ratio Art 470 [facility] Blood specimen (specimen) 05/25/2017 3:22 PM EST 05/25/2017 3:22 PM EST Bienvenido Wong MD CHEMISTRY ORDERABLES [facility] [place] [address] * EKG 12 Lead (05/25/2017 3:12 PM EST) Ventricular rate 104 BPM MUSE SYSTEM Atrial Rate 104 BPM MUSE SYSTEM P-R Interval 180 ms MUSE SYSTEM QRS Duration 104 ms MUSE SYSTEM Q-T Interval 388 ms MUSE SYSTEM QTC Calculated (Bezet) 510 ms MUSE SYSTEM Calculated P [place] 63 degrees MUSE SYSTEM Calculated R [place] -46 degrees MUSE SYSTEM Calculated T [place] 82 degrees MUSE SYSTEM INTERPRETATION Sinus tachycardia Possible Left atrial enlargement Left anterior fascicular block Lateral infarct , age undetermined Inferior infarct (cited on or before 19-MAY-2017) Abnormal ECG When compared with ECG of 22-MAY-2017 07:48, Vent. rate has increased BY ??39 BPM Left anterior fascicular block is now Present Lateral infarct is now Present Serial changes of Inferior infarct Present Confirmed by MD Ortiz Megan ([id number]) on 05/25/2017 7:43:50 PM MUSE SYSTEM 05/25/2017 3:12 PM EST 05/25/2017 7:43 PM EST Kuldeep Conner MD ECG ORDERABLES MUSE SYSTEM * (ABNORMAL) BLOOD GAS 2 ARTERIAL (05/25/2017 1:58 PM EST) pH Art 7.46(H) 7.35 - 7.45 [facility] pCO2 Art 36 35 - 45 mmHg [facility] pO2 Art 269(H) 85 - 104 mmHg [facility] HCO3 Art 24.7 20.0 - 26.0 mmol/L [facility] BE Art 0.8 -3.0 - 3.0 mmol/L [facility] Hgb Blood Gas 8.3(L) 11.7 - 15.5 gm/dL [facility] O2HB Art 98.4(H) 94.0 - 97.0 % [facility] COHB Art 0.3 % [facility] Comment: Nonsmokers: 0.5-1.5% COHB Smokers: Variable, but usually less than 10% Toxic: 20-30% COHB Lethal: Greater than 60% COHB METHB Art 0.3 <=1.5 % [facility] Na Whole Blood 135 135 - 145 mmol/L [facility] K Whole Blood 4.1 3.5 - 5.0 mmol/L [facility] Comment: Please note: Patients with WBC >100,000 may have falsely elevated Potassium levels. Contact the Clinical Chemistry Laboratory if there are any questions. ICa Whole Blood 1.15(L) 1.15 - 1.33 mmol/L [facility] Comment: Note: ??Total bilirubin higher than 20 mg/dL may lead to falsely low ionized calcium. CL Whole Blood 105 98 - 107 mmol/L [facility] Gluc Whole Bld 186 65 - 199 mg/dL [facility] Comment:Diabetes: >=200 mg/d L plus symptoms. Lactate WB 2.2 0.5 - 2.2 mmol/L [facility] Blood specimen (specimen) 05/25/2017 1:58 PM EST 05/25/2017 1:58 PM EST Bienvenido Wong MD CHEMISTRY ORDERABLES Performing Organization Address [facility] Co de Phone Number [facility] [place] [address] * Thrombin time (05/25/2017 1:55 PM EST) Thrombin Time 18 15 - 20 sec [facility] Comment: A prolongation in the thrombin time (>20 seconds) may be indicative of hypofibrinogenemia or dysfibrinogenemia. The thrombin time will be prolonged, often markedly so, by the presence of heparin or direct thrombin inhibitors (argatroban, bivalirudin, dabigatran) in the specimen. Blood specimen (specimen) 05/25/2017 1:55 PM EST 05/25/2017 2:01 PM EST Narrative Resulting Agency Comment Spec In Lab Bienvenido Wong MD HEMATOLOGY ORDERABLE S Performing Organization Address [facility] Co de Phone Number [facility] [place] [address] * Fibrinogen (05/25/2017 1:55 PM EST) Fibrinogen 260 180 - 510 mg/dL [facility] Comment: Called by: justen, Read back by:Zeeshan Granger, Date/Time:05/25/17 14:15. A fibrinogen level >100 mg/dL is adequate for hemostasis in most patients without underlying bleeding disorders. Blood specimen (specimen) 05/25/2017 1:55 PM EST 05/25/2017 2:01 PM EST Narrative Resulting Agency Comment Spec In Lab Bienvenido Wong MD HEMATOLOGY ORDERABLE S Performing Organization Address [facility] Co de Phone Number [facility] [place] [address] * APTT (05/25/2017 1:55 PM EST) PTT 33 25 - 35 sec [facility] Comment: The recommended therapeutic range for full dose, unfractionated heparin at [facility] is 80 ? 114 seconds. The use of the anti-Xa (heparin) level rather than the PTT is recommended for monitoring anticoagulation intensity in critically ill patients receiving unfractionated heparin by continuous IV infusion. Blood specimen (specimen) 05/25/2017 1:55 PM EST 05/25/2017 2:01 PM EST Narrative Resulting Agency Comment Spec In Lab Bienvenido Wong MD HEMATOLOGY ORDERABLE S Performing Organization Address City/[facility]/ZIP Co de Phone Number [facility] [address] * (ABNORMAL) Prothrombin Time (05/25/2017 1:55 PM EST) PT 18.0(H) 11.8 - 14.0 sec [facility] INR 1.5(H) 0.9 - 1.1 [facility] Comment: An INR <2.0 indicates [...] depending on clinical circumstances. Blood specimen (specimen) 05/25/2017 1:55 PM EST 05/25/2017 2:01 PM EST Narrative Resulting Agency Comment Spec In Lab Bienvenido Wong MD HEMATOLOGY ORDERABLE S [facility] [place] [address] * (ABNORMAL) Hemogram (05/25/2017 1:55 PM EST) WBC 13.7(H) 4.0 - 9.5 x10(3)/mcL [facility] RBC 2.45(L) 4.00 - 5.21 x10(6)/mcL [facility] Hemoglobin 8.0(L) 11.7 - 15.5 gm/dL [facility] Hematocrit 23.1(L) 35.7 - 45.8 % [facility] Comment: This result has been called to ANETA HOBBS by LYNDA MARTIN on 05 25 2017 at 1423, and has been read back. MCV 94.3 82.6 - 94.4 fL [facility] MCH 32.7(H) 27.1 - 32.0 pg [facility] MCHC 34.6 31.7 - 35.0 gm/dL [facility] Platelets 107(L) 145 - 357 x10(3)/[facility] RDWSD 42.7 37.0 - 46.0 [facility] RDWCV 12.4 11.5 - 14.1 % [facility] MPV 10.7 7.6 - 12.9 [facility]ORY nRBC % Auto 0.0 % [facility] nRBC Abs Auto 0.000 0.000 - 0.000 x10(3)/[facility] Blood specimen (specimen) 05/25/2017 1:55 PM EST 05/25/2017 2:01 PM EST Narrative Resulting Agency Comment Spec In Lab Bienvenido Wong MD HEMATOLOGY ORDERABLE S [facility] [place] [address] * (ABNORMAL) BLOOD GAS 2 ARTERIAL (05/25/2017 1:02 PM EST) pH Art 7.40 7.35 - 7.45 [facility] pCO2 Art 47(H) 35 - 45 mmHg [facility] pO2 Art 286(H) 85 - 104 mmHg [facility] HCO3 Art 28.7(H) 20.0 - 26.0 mmol/L [facility] BE Art 4.0(H) -3.0 - 3.0 mmol/L [facility] Hgb Blood Gas 8.6(L) 11.7 - 15.5 gm/dL [facility] O2HB Art 98.5(H) 94.0 - 97.0 % [facility] COHB Art 0.3 % [facility] Comment: Nonsmokers: 0.5-1.5% COHB Smokers: Variable, but usually less than 10% Toxic: 20-30% COHB Lethal: Greater than 60% COHB METHB Art 0.3 <=1.5 % [facility] Na Whole Blood 131(L) 135 - 145 mmol/L [facility] K Whole Blood 5.4(H) 3.5 - 5.0 mmol/L [facility] Comment: Please note: Patients with WBC >100,000 may have falsely elevated Potassium levels. Contact the Clinical Chemistry Laboratory if there are any questions. ICa Whole Blood 0.96(L) 1.15 - 1.33 mmol/L [facility] Comment: Note: ??Total bilirubin higher than 20 mg/dL may lead to falsely low ionized calcium. CL Whole Blood 101 98 - 107 mmol/L [facility] Gluc Whole Bld 200(H) 65 - 199 mg/dL [facility] Comment:Diabetes: >=200 mg/d L plus symptoms. Lactate WB 1.4 0.5 - 2.2 mmol/L [facility] Blood specimen (specimen) 05/25/2017 1:02 PM EST 05/25/2017 1:02 PM EST Bienvenido Wong MD CHEMISTRY ORDERABLES [facility] [place] [address] * (ABNORMAL) Platelet count (05/25/2017 12:35 PM EST) Platelets 134(L) 145 - 357 x10(3)/mc L [facility] Plat Immature % 3.9 0.0 - 7.4 % [facility] Comment: Limitation of the Immature Platelet Fraction (IPF)-May be less reliable when the platelet count is less than 10e472/uL due to statistical imprecision. The IPF value provides an assessment of the Bone Marrow production status. ??It is useful in differentiating Thrombocytopenia caused by platelet destruction/consumption versus decreased production. It also helps to determine the imminent release of platelets and can be therefore a helpful parameter in Chemotherapy and Bone marrow transplant patients. ELEVATED IPF value: ?? When the bone marrow is in a state of over production such as when increased destruction and consumption are the underlying issue. ?? When the marrow is recovering post chemotherapy or bone marrow transplant. LOW to NORMAL IPF value: ?? When the bone marrow in not responding and is in a decreased state of production. References: [employer] The Clinical Value of the Immature Platelet Fraction (IPF) in Cell Recovery Document Number 10-1143 09/2010 [employer] The Role of the Immature Platelet Fraction (IPF) in the Differential Diagnosis of Thrombocytopenia, Document MKT-[id number] V05/03/19 P014 Blood specimen (specimen) 05/25/2017 12:35 PM EST 05/25/2017 12:37 PM EST Narrative Resulting Agency Comment Spec In Lab Bienvenido Wong MD HEMATOLOGY ORDERABLE S [facility] [place] [address] * (ABNORMAL) Hemoglobin and Hematocrit, blood (05/25/2017 12:35 PM EST) Hemoglobin 8.7(L) 11.7 - 15.5 gm/dL [facility] Comment: This result has been called to ANETA HOBBS by LYNDA MARTIN on 05 25 2017 at 1245, and has been read back. Hematocrit 24.5(L) 35.7 - 45.8 % [facility] Comment: This result has been called to ANETA HOBBS by LYNDA MARTIN on 05 25 2017 at 1245, and has been read back. Blood specimen (specimen) 05/25/2017 12:35 PM EST 05/25/2017 12:37 PM EST Narrative Resulting Agency Comment Spec In Lab Bienvenido Wong MD HEMATOLOGY ORDERABLE S Performing Organization Address [facility] Co de Phone Number [facility] [address] * Fibrinogen (05/25/2017 12:35 PM EST) Fibrinogen 267 180 - 510 mg/dL [facility] Comment: Called by: louise, Read back by: zeeshan rubi_, Date/Time:_05/25/17 12:52. A fibrinogen level >100 mg/dL is adequate for hemostasis in most patients without underlying bleeding disorders. Blood specimen (specimen) 05/25/2017 12:35 PM EST 05/25/2017 12:37 PM EST Narrative Resulting Agency Comment Spec In Lab Bienvenido Wong MD HEMATOLOGY ORDERABLE S Performing Organization Address [facility] Co de Phone Number [facility] [address] * (ABNORMAL) BLOOD GAS 2 ARTERIAL (05/25/2017 12:32 PM EST) pH Art 7.37 7.35 - 7.45 [facility] pCO2 Art 46(H) 35 - 45 mmHg [facility] pO2 Art 418(H) 85 - 104 mmHg [facility] HCO3 Art 26.3(H) 20.0 - 26.0 mmol/L [facility] BE Art 1.1 -3.0 - 3.0 mmol/L [facility] Hgb Blood Gas 9.2(L) 11.7 - 15.5 gm/dL [facility] O2HB Art 98.8(H) 94.0 - 97.0 % [facility] COHB Art 0.3 % [facility] Comment: Nonsmokers: 0.5-1.5% COHB Smokers: Variable, but usually less than 10% Toxic: 20-30% COHB Lethal: Greater than 60% COHB METHB Art 0.0 <=1.5 % [facility] Na Whole Blood 132(L) 135 - 145 mmol/L [facility] K Whole Blood 5.3(H) 3.5 - 5.0 mmol/L [facility] Comment: Please note: Patients with WBC >100,000 may have falsely elevated Potassium levels. Contact the Clinical Chemistry Laboratory if there are any questions. ICa Whole Blood 0.94(L) 1.15 - 1.33 mmol/L [facility] Comment: Note: ??Total bilirubin higher than 20 mg/dL may lead to falsely low ionized calcium. CL Whole Blood 102 98 - 107 mmol/L [facility] Gluc Whole Bld 184 65 - 199 mg/dL [facility] Comment:Diabetes: >=200 mg/d L plus symptoms. Lactate WB 1.2 0.5 - 2.2 mmol/L [facility] Blood specimen (specimen) 05/25/2017 12:32 PM EST 05/25/2017 12:32 PM EST Bienvenido Wong MD CHEMISTRY ORDERABLES [facility] [place] [address] * Surgical Pathology Report (05/25/2017 12:28 PM EST) FINAL DIAGNOSIS (AP) [id number] ? Location: [facility]; [place]; A The signing pathologist has (i) examined the relevant preparation(s) for the specimen(s) and (ii) rendered or confirmed the diagnosis(es). . 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 Electronically signed by: ??Shahrzad Paris DO Verified: ??05/28/2017 ?Pathologist Performed at: ??-[facility] Dept. of Pathology, [place], [place] CLINICAL INFORMATION Specimen Submitted: A - Aortic valve/leaflets Clinical History: AI Clinical Diagnosis: Same SPECIMEN PROCESSING A - ??Labeled/Fixativ e: Aortic valve/leaflets, same. Quantity/Size: Multiple, 5.7 x 3.2 x 0.4 cm. Tissue Description: Fragments of pale sánchez, soft valvular tissue. No vegetations or thrombi are identified grossly. The valve wall measures up to 0.3 cm in thickness. The number of cusps cannot be determined due to fragmentation. Sections/Processi ng: Transit Mixer Operator sections are submitted. (R1) ??cf 05/28/2017 10:32 AM EST [facility] AORTIC STRUCTURE / Unknown 05/25/2017 12:28 PM EST 05/25/2017 12:28 PM EST Kuldeep Conner MD PATHOLOGY/CYTOLOGY ORDERABLES Performing Organization Address City/[facility]/ZIP Co de Phone Number [facility] [place] [address] * Specimen to Pathology (05/25/2017 12:28 PM EST) AP Specimen 05/25/2017 12:2 8 PM EST 05/25/2017 12:52 PM EST Narrative [facility] - 05/25/2017 12:52 PM EST Specimen requisition ordered. ??Separate Pathology report to follow Resulting Agency Comment Spec In Lab Bienvenido Wong MD PATHOLOGY/[place] [address] * (ABNORMAL) BLOOD GAS 2 ARTERIAL (05/25/2017 12:05 PM EST) pH Art 7.40 7.35 - 7.45 [facility] pCO2 Art 38 35 - 45 mmHg [facility] pO2 Art 406(H) 85 - 104 mmHg [facility] HCO3 Art 23.2 20.0 - 26.0 mmol/L [facility] BE Art -1.5 -3.0 - 3.0 mmol/L [facility] Hgb Blood Gas 9.7(L) 11.7 - 15.5 gm/dL [facility] O2HB Art 98.9(H) 94.0 - 97.0 % [facility] COHB Art 0.3 % [facility] Comment: Nonsmokers: 0.5-1.5% COHB Smokers: Variable, but usually less than 10% Toxic: 20-30% COHB Lethal: Greater than 60% COHB METHB Art 0.0 <=1.5 % [facility] Na Whole Blood 134(L) 135 - 145 mmol/L [facility] K Whole Blood 4.1 3.5 - 5.0 mmol/L [facility] Comment: Please note: Patients with WBC >100,000 may have falsely elevated Potassium levels. Contact the Clinical Chemistry Laboratory if there are any questions. ICa Whole Blood 0.99(L) 1.15 - 1.33 mmol/L [facility] Comment: Note: ??Total bilirubin higher than 20 mg/dL may lead to falsely low ionized calcium. CL Whole Blood 102 98 - 107 mmol/L [facility] Gluc Whole Bld 94 65 - 199 mg/dL [facility] Comment:Diabetes: >=200 mg/d L plus symptoms. Lactate WB 0.8 0.5 - 2.2 mmol/L [facility] Blood specimen (specimen) 05/25/2017 12:05 PM EST 05/25/2017 12:05 PM EST Bienvenido Wong MD CHEMISTRY ORDERABLES [facility] [place] [address] * (ABNORMAL) BLOOD GAS 2 VENOUS (05/25/2017 12:05 PM EST) pH Amador 7.38 7.32 - 7.42 [facility] pCO2 [place] 40(L) 41 - 51 mmHg [facility] pO2 [place] 45(H) 25 - 40 mmHg [facility] HCO3 [place] 22.9 mmol/L [facility] BE [place] -2.2 mmol/L [facility] Hgb Blood Gas 10.1(L) 11.7 - 15.5 gm/dL [facility] O2HB [place] 79.8 % [facility] COHB [place] 0.1 % [facility] Comment: Nonsmokers: 0.5-1.5% COHB Smokers: Variable, but usually less than 10% Toxic: 20-30% COHB Lethal: Greater than 60% COHB METHB [place] 0.3 <=1.5 % [facility] Na Whole Blood 135 135 - 145 mmol/L [facility] K Whole Blood 4.1 3.5 - 5.0 mmol/L [facility] Comment: Please note: Patients with WBC >100,000 may have falsely elevated Potassium levels. Contact the Clinical Chemistry Laboratory if there are any questions. ICa Whole Blood 1.03(L) 1.15 - 1.33 mmol/L [facility] Comment: Note: ??Total bilirubin higher than 20 mg/dL may lead to falsely low ionized calcium. CL Whole Blood 102 98 - 107 mmol/L [facility] Gluc Whole Bld 93 65 - 199 mg/dL [facility] Comment:Diabetes: >=200 mg/d L plus symptoms Lactate WB 0.7 0.5 - 2.2 mmol/L [facility] BGas Source Venous [facility] Blood specimen (specimen) 05/25/2017 12:05 PM EST 05/25/2017 12:05 PM EST Bienvenido Wong MD CHEMISTRY ORDERABLES [facility] [place] [address] * (ABNORMAL) BLOOD GAS 2 ARTERIAL (05/25/2017 11:27 AM EST) pH Art 7.47(H) 7.35 - 7.45 [facility] pCO2 Art 37 35 - 45 mmHg [facility] pO2 Art 255(H) 85 - 104 mmHg [facility] HCO3 Art 25.7 20.0 - 26.0 mmol/L [facility] BE Art 2.0 -3.0 - 3.0 mmol/L [facility] Hgb Blood Gas 11.9 11.7 - 15.5 gm/dL [facility] O2HB Art 98.6(H) 94.0 - 97.0 % [facility] COHB Art 0.3 % [facility] Comment: Nonsmokers: 0.5-1.5% COHB Smokers: Variable, but usually less than 10% Toxic: 20-30% COHB Lethal: Greater than 60% COHB METHB Art 0.3 <=1.5 % [facility] Na Whole Blood 143 135 - 145 mmol/L [facility] K Whole Blood 4.1 3.5 - 5.0 mmol/L [facility] Comment: Please note: Patients with WBC >100,000 may have falsely elevated Potassium levels. Contact the Clinical Chemistry Laboratory if there are any questions. ICa Whole Blood 1.15(L) 1.15 - 1.33 mmol/L [facility] Comment: Note: ??Total bilirubin higher than 20 mg/dL may lead to falsely low ionized calcium. CL Whole Blood 107 98 - 107 mmol/L [facility] Gluc Whole Bld 93 65 - 199 mg/dL [facility] Comment:Diabetes: >=200 mg/d L plus symptoms. Lactate WB 0.8 0.5 - 2.2 mmol/L [facility] Blood specimen (specimen) 05/25/2017 11:27 AM EST 05/25/2017 11:27 AM EST Bienvenido Wong MD CHEMISTRY ORDERABLES [facility] [place] [address] * (ABNORMAL) BLOOD GAS 2 ARTERIAL (05/25/2017 11:04 AM EST) pH Art 7.37 7.35 - 7.45 [facility] pCO2 Art 48(H) 35 - 45 mmHg [facility] pO2 Art 442(H) 85 - 104 mmHg [facility] HCO3 Art 26.5(H) 20.0 - 26.0 mmol/L [facility] LABORATORY BE Art 1.2 -3.0 - 3.0 mmol/L [facility] Hgb Blood Gas 12.4 11.7 - 15.5 gm/dL [facility] O2HB Art 98.9(H) 94.0 - 97.0 % [facility] COHB Art 0.3 % [facility] Comment: Nonsmokers: 0.5-1.5% COHB Smokers: Variable, but usually less than 10% Toxic: 20-30% COHB Lethal: Greater than 60% COHB METHB Art 0.3 <=1.5 % [facility] Na Whole Blood 168(Critic al) 135 - 145 mmol/L [facility] Comment:Noted by electrical instrumentation technician. K Whole Blood 4.1 3.5 - 5.0 mmol/L [facility] Comment: Please note: Patients with WBC >100,000 may have falsely elevated Potassium levels. Contact the Clinical Chemistry Laboratory if there are any questions. ICa Whole Blood 1.19 1.15 - 1.33 mmol/L [facility] Comment: Note: ??Total bilirubin higher than 20 mg/dL may lead to falsely low ionized calcium. CL Whole Blood 105 98 - 107 mmol/L [facility] Gluc Whole Bld 82 65 - 199 mg/dL [facility] Comment:Diabetes: >=200 mg/d L plus symptoms. Lactate WB 1.0 0.5 - 2.2 mmol/L [facility] Blood specimen (specimen) 05/25/2017 11:04 AM EST 05/25/2017 11:04 AM EST Bienvenido Wong MD CHEMISTRY ORDERABLES Performing Organization Address [facility] de Phone Number [facility] [place] [place] [address] * Prepare Coag Factors (Non-Hemophilia) (05/25/2017 10:15 AM EST) Dispensed? Yes [facility] Blood specimen (specimen) 05/25/2017 10:15 AM EST 05/25/2017 10:12 AM EST Narrative Resulting Agency Comment Spec In Lab Kuldeep Conner MD BLOOD BANK PRODUCT ORDERABLES Performing Organization Address [facility] de Phone Number [facility] [place] [address] * Prepare RBC (05/25/2017 10:15 AM EST) Dispensed? Yes [facility] Blood specimen (specimen) 05/25/2017 10:15 AM EST 05/25/2017 10:12 AM EST Narrative Resulting Agency Comment Spec In Lab Kuldeep Conner MD BLOOD BANK PRODUCT ORDERABLES Performing Organization Address [facility] de Phone Number [facility] [place] [place] [address] * Heparin, low molecular weight assay (05/25/2017 9:50 AM EST) Heparin [id number] 0.38 IU/mL [facility] Comment: Guidelines for therapeutic unfractionated and low molecular weight heparin levels for the various formulations available in the [place] are summarized below. Anti-Xa levels should be determined in a plasma sample that has been drawn approximately 3-5 hours after a dose of LMWH and after steady-state has been reached. DRUG ?Dosing Schedule ?Target Peak Steady- State ? Anti-Xa Levels (Units/mL) Unfractionated ?Continuous infusion ?0.3-0.7 heparin Enoxaparin ?Twice daily ?0.6-1.0 Enoxararin ?Once daily ? Unknown,likely 1.0-1.5 Dalteparin ?Once daily ? 1.05 Tinzaparin ?Once daily ? 0.85 Monitoring prophylactic dose LMWH is not routinely performed, thus guidelines for target peak anti-Xa levels are not available. Levels between 0.2 and 0.5 u/ml may be appropriate. Note: Most clinical trials in which low molecular weight heparins were used to treat acute venous thrombolism did not use target anti-Xa levels to guide dosing, hence therapeutic levels have been determined retrospectively and have not been shown to correlate with drug efficacy. Blood specimen (specimen) 05/25/2017 9:50 AM EST 05/25/2017 10:06 AM EST Narrative Resulting Agency Comment Spec In Lab Yessy Wahl APRN HEMATOLOGY ORDERA BLES [facility] [place] [address] * Urine Hold (05/25/2017 8:52 AM EST) Urine Hold Sample in lab. [facility] Urine specimen (specimen) Urine / Unknown 05/25/2017 8:52 AM EST 05/25/2017 9:19 AM EST Dereck Adams MD URINE ORDERABLES Performing Organization Address [facility] Co de Phone Number [facility] [place] [address] * Urine culture Clean Catch Urine (05/25/2017 7:59 AM EST) Pathologist [facility] Urine Culture No growth (Less than 1,000 cfu/ml). [facility] Urine specimen obtained by clean catch procedure (specimen) 05/25/2017 7:59 AM EST 05/25/2017 9:23 AM EST Narrative Resulting Agency Comment Spec In Lab Bienvenido Wong MD MICROBIOLOGY - GENER AL ORDERABLES Performing Organization Address [facility] de Phone Number [facility] [place] [address] * POCT Glucose (05/25/2017 7:47 AM EST) Pathologist [facility] POC Glucose 97 65 - 199 mg/dL [facility] Comment: Supplemental ranges: <140 mg/dL before meals <180 mg/dL all other times of the day Blood specimen (specimen) 05/25/2017 7:47 AM EST 05/25/2017 7:47 AM EST Bienvenido Wong MD POINT OF CARE TEST O RDERABLES Performing Organization Address [facility] Co de Phone Number [facility] [place] [address] * Differential, Automated (05/25/2017 3:48 AM EST) Neutrophils % 61.9 % [facility] Neutr Abs (ANC) 3.56 1.70 - 6.10 x10(3)/[facility] Lymphocytes % 22.7 % [facility] Lymphocytes Abs 1.3 0.9 - 3.2 x10(3)/[facility] Monocytes % 9.0 % [facility] Monocyte Abs 0.5 0.3 - 0.9 x10(3)/[facility] Eosinophils % 5.6 % [facility] Eosinophils Abs 0.3 0.0 - 0.4 x10(3)/[facility] Basophils % 0.5 % [facility] Basophils Abs 0.0 0.0 - 0.1 x10(3)/[facility] Immature Gran % 0.30 % [facility] Comment: Immature granulocytes(IG's)percentage and absolute count will include metamyelocytes, myelocytes, and promyelocytes. Blood smears from CBCs yielding IG's will be scanned manually for concordance. If this scan disagrees with the automated IG or if promyelocytes are noted, a manual differential will be performed. [place] Gran Abs 0.02 0.00 - 0.04 x10(3)/[facility] Blood specimen (specimen) 05/25/2017 3:48 AM EST 05/25/2017 3:54 AM EST Narrative Resulting Agency Comment Spec In Lab Verónica Watters APRN HEMATOLOGY ORDERAB LES [facility] [place] [address] * (ABNORMAL) Hemogram (05/25/2017 3:48 AM EST) WBC 5.8 4.0 - 9.5 x10(3)/[facility] RBC 3.88(L) 4.00 - 5.21 x10(6)/[facility] Hemoglobin 12.4 11.7 - 15.5 gm/dL [facility] Hematocrit 35.8 35.7 - 45.8 % [facility] MCV 92.3 82.6 - 94.4 fL [facility] MCH 32.0 27.1 - 32.0 pg [facility] MCHC 34.6 31.7 - 35.0 gm/dL [facility] Platelets 158 145 - 357 x10(3)/[facility] RDWSD 41.5 37.0 - 46.0 [facility] RDWCV 12.4 11.5 - 14.1 % [facility] MPV 10.4 7.6 - 12.9 fL [facility] nRBC % Auto 0.0 % [facility] nRBC Abs Auto 0.000 0.000 - 0.000 x10(3)/[facility] Blood specimen (specimen) 05/25/2017 3:48 AM EST 05/25/2017 3:54 AM EST Narrative Resulting Agency Comment Spec In Lab Verónica Watters APRN HEMATOLOGY ORDERAB LES Performing Organization Address City/State/[facility] Co de Phone Number [facility] [place] [address] * (ABNORMAL) BMP w/fasting Glucose (05/25/2017 3:48 AM EST) Glucose Fasting 98 65 - 99 mg/dL [facility] Comment: ?Fasting* Glucose Interpretive Criteria Normal ?65-99 mg/dL Impaired Fasting glucose ?100-125 mg/dL Consistent with Diabetes Mellitus ? >or= 126 mg/dL *Fasting is defined as no caloric intake for at least 8 hours In the absence of unequivocal hyperglycemia a plasma glucose value of >or= 126 mg/dL should be repeated on a subsequent day. Diagnosis and Classification of Diabetes Mellitus, Position Statement from the [place] [employer]. ??Diabetes Care, Volume 33, Supplement 1, Apr 2009 BUN 19(H) 8 - 18 mg/dL [facility] Creatinine 0.85 0.70 - 1.20 mg/dL [facility] Sodium 142 135 - 145 mmol/L [facility] Potassium 4.1 3.5 - 5.0 mmol/L [facility] Comment: Please note: ??Patients with WBC >100,000 may have falsely elevated Potassium levels. ??For accurate Potassium quantification in these patients send serum separator tube (gold top) for subsequent determinations. ??Contact the Clinical Chemistry Laboratory if there are any questions. Chloride 102 98 - 107 mmol/L [facility] CO2 25 22 - 31 mmol/L [facility] Anion Gap 15 5 - 15 mmol/L [facility] Calcium 9.0 8.5 - 10.5 mg/dL [facility] Estimated GFR >60 >=60 [facility] Comment: The reported eGFR should be multiplied by 1.2 for patients. The MDRD is not an appropriate measure of renal function for patients with body mass extremes or in patients with acute kidney failure. http://[employer]/DHnkdep http://[employer]/DHMCnkf Blood specimen (specimen) 05/25/2017 3:48 AM EST 05/25/2017 3:54 AM EST Narrative Resulting Agency Comment Spec In Lab Bienvenido Wong MD CHEMISTRY ORDERABLES Performing Organization Address City/State/[facility] Co de Phone Number [facility] [place] [address] * Heparin, low molecular weight assay (05/25/2017 3:48 AM EST) Heparin [id number] 0.47 IU/mL [facility] Comment: Guidelines for therapeutic unfractionated and low molecular weight heparin levels for the various formulations available in the [place] are summarized below. Anti-Xa levels should be determined in a plasma sample that has been drawn approximately 3-5 hours after a dose of LMWH and after steady-state has been reached. DRUG ?Dosing Schedule ?Target Peak Steady- State ? Anti-Xa Levels (Units/mL) Unfractionated ?Continuous infusion ?0.3-0.7 heparin Enoxaparin ?Twice daily ?0.6-1.0 Enoxararin ?Once daily ? Unknown,likely 1.0-1.5 Dalteparin ?Once daily ? 1.05 Tinzaparin ?Once daily ? 0.85 Monitoring prophylactic dose LMWH is not routinely performed, thus guidelines for target peak anti-Xa levels are not available. Levels between 0.2 and 0.5 u/ml may be appropriate. Note: Most clinical trials in which low molecular weight heparins were used to treat acute venous thrombolism did not use target anti-Xa levels to guide dosing, hence therapeutic levels have been determined retrospectively and have not been shown to correlate with drug efficacy. Blood specimen (specimen) 05/25/2017 3:48 AM EST 05/25/2017 3:54 AM EST Narrative Resulting Agency Comment Spec In Lab Verónica Watters APRN HEMATOLOGY ORDERAB LES [facility] [place] [address] * ABORH Recheck Status (05/24/2017 8:27 PM EST) ABORH Type Recheck Completed [facility] Blood specimen (specimen) 05/24/2017 8:27 PM EST 05/24/2017 8:54 PM EST Narrative Resulting Agency Comment Spec In Lab Verónica Watters APRN BLOOD BANK LAB ORD ERABLES Performing Organization Address [facility]/ZIP Co de Phone Number [facility] [place] [address] * Antibody screen (05/24/2017 8:27 PM EST) Ab Screen Interp Negative [facility] Expires at [id number] on: 05/27/2017 [facility] Blood specimen (specimen) 05/24/2017 8:27 PM EST 05/24/2017 8:54 PM EST Narrative Resulting Agency Comment Spec In Lab Verónica Watters APRN BLOOD BANK LAB ORD ERABLES Performing Organization Address [facility] Co de Phone Number [facility] [place] [address] * ABO/Rh Typing (05/24/2017 8:27 PM EST) Pathologist [facility] ABORH Type A Pos [facility] Blood specimen (specimen) 05/24/2017 8:27 PM EST 05/24/2017 8:54 PM EST Narrative Resulting Agency Comment Spec In Lab Verónica Watters APRN BLOOD BANK LAB ORD ERABLES Performing Organization Address [facility] Co de Phone Number [facility] [place] [address] * Heparin, low molecular weight assay (05/24/2017 8:27 PM EST) [facility] Heparin [id number] 0.41 IU/mL [facility] Comment: Guidelines for therapeutic unfractionated and low molecular weight heparin levels for the various formulations available in the [place] are summarized below. Anti-Xa levels should be determined in a plasma sample that has been drawn approximately 3-5 hours after a dose of LMWH and after steady-state has been reached. DRUG ?Dosing Schedule ?Target Peak Steady- State ? Anti-Xa Levels (Units/mL) Unfractionated ?Continuous infusion ?0.3-0.7 heparin Enoxaparin ?Twice daily ?0.6-1.0 Enoxararin ?Once daily ? Unknown,likely 1.0-1.5 Dalteparin ?Once daily ? 1.05 Tinzaparin ?Once daily ? 0.85 Monitoring prophylactic dose LMWH is not routinely performed, thus guidelines for target peak anti-Xa levels are not available. Levels between 0.2 and 0.5 u/ml may be appropriate. Note: Most clinical trials in which low molecular weight heparins were used to treat acute venous thrombolism did not use target anti-Xa levels to guide dosing, hence therapeutic levels have been determined retrospectively and have not been shown to correlate with drug efficacy. Blood specimen (specimen) 05/24/2017 8:27 PM EST 05/24/2017 8:37 PM EST Narrative Resulting Agency Comment Spec In Lab Verónica Watters APRN HEMATOLOGY ORDERAB LES [facility] [place] [address] * Heparin, low molecular weight assay (05/24/2017 1:59 PM EST) Heparin [id number] 0.66 IU/mL [facility] Comment: Guidelines for therapeutic unfractionated and low molecular weight heparin levels for the various formulations available in the [place] are summarized below. Anti-Xa levels should be determined in a plasma sample that has been drawn approximately 3-5 hours after a dose of LMWH and after steady-state has been reached. DRUG ?Dosing Schedule ?Target Peak Steady- State ? Anti-Xa Levels (Units/mL) Unfractionated ?Continuous infusion ?0.3-0.7 heparin Enoxaparin ?Twice daily ?0.6-1.0 Enoxararin ?Once daily ? Unknown,likely 1.0-1.5 Dalteparin ?Once daily ? 1.05 Tinzaparin ?Once daily ? 0.85 Monitoring prophylactic dose LMWH is not routinely performed, thus guidelines for target peak anti-Xa levels are not available. Levels between 0.2 and 0.5 u/ml may be appropriate. Note: Most clinical trials in which low molecular weight heparins were used to treat acute venous thrombolism did not use target anti-Xa levels to guide dosing, hence therapeutic levels have been determined retrospectively and have not been shown to correlate with drug efficacy. Blood specimen (specimen) 05/24/2017 1:59 PM EST 05/24/2017 2:04 PM EST Narrative Resulting Agency Comment Spec In Lab Bienvenido Wong MD HEMATOLOGY ORDERABLE S [facility] [place] [address] * Gold Tube HOLD (05/24/2017 12:25 PM EST) Pathologist [facility] Gold Hold Sample in lab. [facility] Blood specimen (specimen) No Charge / Unknown 05/24/2017 12:25 PM EST 05/24/2017 12:55 PM EST Bienvenido Wong MD CHEMISTRY ORDERABLES Performing Organization Address [facility] Co de Phone Number [facility] [place] [address] * (ABNORMAL) APTT (05/24/2017 10:46 AM EST) [facility] PTT 107(H) 25 - 35 sec [facility] Comment: The recommended therapeutic range for full dose, unfractionated heparin at [facility] is 80 ? 114 seconds. The use of the anti-Xa (heparin) level rather than the PTT is recommended for monitoring anticoagulation intensity in critically ill patients receiving unfractionated heparin by continuous IV infusion. Blood specimen (specimen) Venous Draw / Unknown 05/24/2017 10:46 AM EST 05/24/2017 11:09 AM EST Narrative Resulting Agency Comment Spec In Lab Verónica Watters APRN HEMATOLOGY ORDERAB LES Performing Organization Address [facility] Co de Phone Number [facility] [place] [address] * Differential, Automated (05/24/2017 3:58 AM EST) [facility] Neutrophils % 67.1 % [facility] Neutr Abs (ANC) 4.27 1.70 - 6.10 x10(3)/[facility] Lymphocytes % 20.8 % [facility] Lymphocytes Abs 1.3 0.9 - 3.2 x10(3)/[facility] Monocytes % 7.5 % [facility] Monocyte Abs 0.5 0.3 - 0.9 x10(3)/[facility] Eosinophils % 3.9 % [facility] Eosinophils Abs 0.2 0.0 - 0.4 x10(3)/[facility] Basophils % 0.5 % [facility] Basophils Abs 0.0 0.0 - 0.1 x10(3)/[facility] Immature Gran % 0.20 % [facility] Comment: Immature granulocytes(IG's)percentage and absolute count will include metamyelocytes, myelocytes, and promyelocytes. Blood smears from CBCs yielding IG's will be scanned manually for concordance. If this scan disagrees with the automated IG or if promyelocytes are noted, a manual differential will be performed. [place] Gran Abs 0.01 0.00 - 0.04 x10(3)/[facility] Blood specimen (specimen) 05/24/2017 3:58 AM EST 05/24/2017 4:07 AM EST Narrative Resulting Agency Comment Spec In Lab Melody Collins APRN HEMATOLOGY ORDERA BLES [facility] [place] [address] * (ABNORMAL) Hemogram (05/24/2017 3:58 AM EST) WBC 6.4 4.0 - 9.5 x10(3)/[facility] RBC 3.82(L) 4.00 - 5.21 x10(6)/[facility] Hemoglobin 12.5 11.7 - 15.5 gm/dL [facility] Hematocrit 35.0(L) 35.7 - 45.8 % [facility] MCV 91.6 82.6 - 94.4 fL [facility] MCH 32.7(H) 27.1 - 32.0 pg [facility] MCHC 35.7(H) 31.7 - 35.0 gm/dL [facility] Platelets 163 145 - 357 x10(3)/[facility] RDWSD 41.9 37.0 - 46.0 [facility] RDWCV 12.7 11.5 - 14.1 % [facility] MPV 11.2 7.6 - 12.9 [facility] nRBC % Auto 0.0 % [facility] nRBC Abs Auto 0.000 0.000 - 0.000 x10(3)/[facility] Blood specimen (specimen) 05/24/2017 3:58 AM EST 05/24/2017 4:07 AM EST Narrative Resulting Agency Comment Spec In Lab Melody Collins APRN HEMATOLOGY ORDERA BLES Performing Organization Address [facility] Co de Phone Number [facility] [place] [address] * (ABNORMAL) APTT (05/24/2017 3:58 AM EST) PTT 126(H) 25 - 35 sec [facility] Comment: The recommended therapeutic range for full dose, unfractionated heparin at [facility] is 80 ? 114 seconds. The use of the anti-Xa (heparin) level rather than the PTT is recommended for monitoring anticoagulation intensity in critically ill patients receiving unfractionated heparin by continuous IV infusion. Blood specimen (specimen) 05/24/2017 3:58 AM EST 05/24/2017 4:07 AM EST Narrative Resulting Agency Comment Spec In Lab Bienvenido Wong MD HEMATOLOGY ORDERABLE S Performing Organization Address [facility] Co de Phone Number [facility] [place] [address] * IGOR w/fasting Glucose (05/24/2017 3:58 AM EST) Glucose Fasting 93 65 - 99 mg/dL [facility] Comment: ?Fasting* Glucose Interpretive Criteria Normal ?65-99 mg/dL Impaired Fasting glucose ?100-125 mg/dL Consistent with Diabetes Mellitus ? >or= 126 mg/dL *Fasting is defined as no caloric intake for at least 8 hours In the absence of unequivocal hyperglycemia a plasma glucose value of >or= 126 mg/dL should be repeated on a subsequent day. Diagnosis and Classification of Diabetes Mellitus, Position Statement from the [place] [employer]. ??Diabetes Care, Volume 33, Supplement 1, Apr 2009 BUN 18 8 - 18 mg/dL [facility] Creatinine 0.86 0.70 - 1.20 mg/dL [facility] Sodium 141 135 - 145 mmol/L [facility] Potassium 4.3 3.5 - 5.0 mmol/L [facility] Comment: Please note: ??Patients with WBC >100,000 may have falsely elevated Potassium levels. ??For accurate Potassium quantification in these patients send serum separator tube (gold top) for subsequent determinations. ??Contact the Clinical Chemistry Laboratory if there are any questions. Chloride 103 98 - 107 mmol/L [facility] CO2 25 22 - 31 mmol/L [facility] Anion Gap 13 5 - 15 mmol/L [facility] Calcium 9.4 8.5 - 10.5 mg/dL [facility] Estimated GFR >60 >=60 [facility] Comment: The reported eGFR should be multiplied by 1.2 for patients. The MDRD is not an appropriate measure of renal function for patients with body mass extremes or in patients with acute kidney failure. http://[employer]/DHnkdep http://[employer]/DHMCnkf Blood specimen (specimen) 05/24/2017 3:58 AM EST 05/24/2017 4:07 AM EST Narrative Resulting Agency Comment Spec In Lab Bienvenido Wong MD CHEMISTRY ORDERABLES [facility] [place] [address] * (ABNORMAL) APTT (05/23/2017 7:36 PM EST) PTT 122(H) 25 - 35 sec [facility] Comment: The recommended therapeutic range for full dose, unfractionated heparin at [facility] is 80 ? 114 seconds. The use of the anti-Xa (heparin) level rather than the PTT is recommended for monitoring anticoagulation intensity in critically ill patients receiving unfractionated heparin by continuous IV infusion. Blood specimen (specimen) 05/23/2017 7:36 PM EST 05/23/2017 7:54 PM EST Narrative Resulting Agency Comment Spec In Lab Bienvenido Wong MD HEMATOLOGY ORDERABLE S Performing Organization Address [facility] Co de Phone Number [facility] [place] [address] * (ABNORMAL) APTT (05/23/2017 1:33 PM EST) PTT 111(H) 25 - 35 sec [facility] Comment: The recommended therapeutic range for full dose, unfractionated heparin at [facility] is 80 ? 114 seconds. The use of the anti-Xa (heparin) level rather than the PTT is recommended for monitoring anticoagulation intensity in critically ill patients receiving unfractionated heparin by continuous IV infusion. Blood specimen (specimen) 05/23/2017 1:33 PM EST 05/23/2017 1:47 PM EST Narrative Resulting Agency Comment Spec In Lab Bienvenido Wong MD HEMATOLOGY ORDERABLE S [facility] [place] [place] [address] * (ABNORMAL) APTT (05/23/2017 6:54 AM EST) PTT 126(H) 25 - 35 sec [facility] Comment: The recommended therapeutic range for full dose, unfractionated heparin at [facility] is 80 ? 114 seconds. The use of the anti-Xa (heparin) level rather than the PTT is recommended for monitoring anticoagulation intensity in critically ill patients receiving unfractionated heparin by continuous IV infusion. Blood specimen (specimen) 05/23/2017 6:54 AM EST 05/23/2017 7:15 AM EST Narrative Resulting Agency Comment Spec In Lab Bienvenido Wong MD HEMATOLOGY ORDERABLE S [facility] [place] [place] [address] * Differential, Automated (05/23/2017 12:50 AM EST) Neutrophils % 63.0 % [facility] Neutr Abs (ANC) 4.70 1.70 - 6.10 x10(3)/[facility] Lymphocytes % 22.3 % [facility] Lymphocytes Abs 1.7 0.9 - 3.2 x10(3)/[facility] Monocytes % 9.2 % [facility] Monocyte Abs 0.7 0.3 - 0.9 x10(3)/[facility] Eosinophils % 4.7 % [facility] Eosinophils Abs 0.4 0.0 - 0.4 x10(3)/[facility] Basophils % 0.5 % [facility] Basophils Abs 0.0 0.0 - 0.1 x10(3)/[facility] Immature Gran % 0.30 % [facility] Comment: Immature granulocytes(IG's)percentage and absolute count will include metamyelocytes, myelocytes, and promyelocytes. Blood smears from CBCs yielding IG's will be scanned manually for concordance. If this scan disagrees with the automated IG or if promyelocytes are noted, a manual differential will be performed. [place] Gran Abs 0.02 0.00 - 0.04 x10(3)/[facility] Blood specimen (specimen) 05/23/2017 12:50 AM EST 05/23/2017 1:10 AM EST Narrative Resulting Agency Comment Spec In Lab Melody Collins SUELLEN HEMATOLOGY ORDERA BLES [facility] [place] [address] * (ABNORMAL) Hemogram (05/23/2017 12:50 AM EST) [facility] WBC 7.5 4.0 - 9.5 x10(3)/[facility] LAB[facility]AT[facility] RBC 3.78(L) 4.00 - 5.21 x10(6)/[facility] Hemoglobin 12.4 11.7 - 15.5 gm/dL [facility] Hematocrit 34.9(L) 35.7 - 45.8 % [facility] MCV 92.3 82.6 - 94.4 [facility] MCH 32.8(H) 27.1 - 32.0 pg [facility] MCHC 35.5(H) 31.7 - 35.0 gm/dL [facility] Platelets 163 145 - 357 x10(3)/[facility] RDWSD 42.5 37.0 - 46.0 [facility] RDWCV 12.6 11.5 - 14.1 % [facility] MPV 11.3 7.6 - 12.9 [facility] nRBC % Auto 0.0 % [facility] nRBC Abs Auto 0.000 0.000 - 0.000 x10(3)/[facility] Blood specimen (specimen) 05/23/2017 12:50 AM EST 05/23/2017 1:10 AM EST Narrative Resulting Agency Comment Spec In Lab Melody Collins SUELLEN HEMATOLOGY ORDERA BLES [facility] [place] [address] * (ABNORMAL) Basic Metabolic Panel (non-fasting) (05/23/2017 12:50 AM EST) [facility] Glucose Lvl 101 65 - 199 mg/dL [facility] Comment:Diabetes: >=200 mg/d L plus symptoms BUN 22(H) 8 - 18 mg/dL [facility] Creatinine 0.83 0.70 - 1.20 mg/dL [facility] Sodium 141 135 - 145 mmol/L [facility] Potassium 4.0 3.5 - 5.0 mmol/L [facility] Comment: Please note: ??Patients with WBC >100,000 may have falsely elevated Potassium levels. ??For accurate Potassium quantification in these patients send serum separator tube (gold top) for subsequent determinations. ??Contact the Clinical Chemistry Laboratory if there are any questions. Chloride 102 98 - 107 mmol/L [facility] CO2 26 22 - 31 mmol/L [facility] Anion Gap 13 5 - 15 mmol/L [facility] Calcium 8.8 8.5 - 10.5 mg/dL [facility] Estimated GFR >60 >=60 [facility] Comment: The reported eGFR should be multiplied by 1.2 for patients. The MDRD is not an appropriate measure of renal function for patients with body mass extremes or in patients with acute kidney failure. http://BudgetSimple/DHnkdep http://BudgetSimple/DHMCnkf Blood specimen (specimen) 05/23/2017 12:50 AM EST 05/23/2017 1:10 AM EST Narrative Resulting Agency Comment Spec In Lab Bienvenido Wong MD CHEMISTRY ORDERABLES [facility] [place] [address] * (ABNORMAL) APTT (05/23/2017 12:50 AM EST) Pathologist [facility] PTT 95(H) 25 - 35 sec [facility] Comment: The recommended therapeutic range for full dose, unfractionated heparin at [facility] is 80 ? 114 seconds. The use of the anti-Xa (heparin) level rather than the PTT is recommended for monitoring anticoagulation intensity in critically ill patients receiving unfractionated heparin by continuous IV infusion. Blood specimen (specimen) 05/23/2017 12:50 AM EST 05/23/2017 1:10 AM EST Narrative Resulting Agency Comment Spec In Lab Bienvenido Wong MD HEMATOLOGY ORDERABLE S Performing Organization Address [facility] de Phone Number [facility] [place] [address] * (ABNORMAL) Prothrombin Time (05/23/2017 12:50 AM EST) PT 14.7(H) 11.8 - 14.0 sec [facility] INR 1.2(H) 0.9 - 1.1 [facility] Comment: An INR <2.0 indicates [...] depending on clinical circumstances. Blood specimen (specimen) 05/23/2017 12:50 AM EST 05/23/2017 1:10 AM EST Narrative Resulting Agency Comment Spec In Lab eMlody Collins APRN HEMATOLOGY ORDERA BLES Performing Organization Address [facility] de Phone Number [facility] [place] [address] * (ABNORMAL) APTT (05/22/2017 7:27 PM EST) PTT 76(H) 25 - 35 sec [facility] Comment: The recommended therapeutic range for full dose, unfractionated heparin at [facility] is 80 ? 114 seconds. The use of the anti-Xa (heparin) level rather than the PTT is recommended for monitoring anticoagulation intensity in critically ill patients receiving unfractionated heparin by continuous IV infusion. Blood specimen (specimen) 05/22/2017 7:27 PM EST 05/22/2017 7:54 PM EST Narrative Resulting Agency Comment Spec In Lab Bienvenido Wong MD HEMATOLOGY ORDERABLE S Performing Organization Address City/[facility]/ZIP Co de Phone Number [facility] [place] [address] * (ABNORMAL) Urinalysis Microscopic Exam (05/22/2017 3:14 PM EST) RBC UA 158(H) 0 - 4 /HPF [facility] WBC UA 2 0 - 5 /HPF [facility] Bacteria UA Many(A) None /HPF [facility] Squam Epith UA 1 <=4 /HPF [facility] Trans Epith UA 1 <=1 /HPF [facility] Urine specimen obtained by clean catch procedure (specimen) 05/22/2017 3:14 PM EST 05/22/2017 3:27 PM EST Narrative Resulting Agency Comment Spec In Lab Vikki Barron PA URINE ORDERABLES Performing Organization Address [facility]/ZIP Co de Phone Number [facility] [place] [address] * Urine Hold (05/22/2017 3:14 PM EST) Urine Hold Sample in lab. [facility] Urine specimen (specimen) Urine / Unknown 05/22/2017 3:14 PM EST 05/22/2017 3:27 PM EST Vikki Barron PA URINE ORDERABLES Performing Organization Address City/[facility]/ZIP Co de Phone Number [facility] [place] [address] * (ABNORMAL) Urinalysis with reflex Culture (05/22/2017 3:14 PM EST) Glucose UA Negative Negative mg/dL [facility] Protein UA 30(A) Negative mg/dL [facility] Bilirubin UA Negative Negative mg/dL [facility] Comment: Clinical correlation required for positive Urine Bilirubin results as false positive may occur with some drugs and drug related products. If a false positive is suspected a serum total bilirubin should be considered if clinically indicated. Urobilinogen UA Normal Normal mg/dL [facility] pH UA 6.0 5.0 - 8.0 [facility] Blood UA Large(A) Negative mg/dL [facility] Ketones UA Negative Negative mg/dL [facility] Nitrite UA Negative Negative [facility] Leukocytes UA Negative Negative mcL [facility] Appearance UA Cloudy(A) Clear [facility] Spec [place] UA 1.010 1.002 - 1.030 [facility] Color UA Yellow Yellow [facility] Culture Reflexed No [facility] Urine specimen obtained by clean catch procedure (specimen) 05/22/2017 3:14 PM EST 05/22/2017 3:27 PM EST Narrative Resulting Agency Comment Spec In Lab Bienvenido Wong MD URINE ORDERABLES Performing Organization Address City/State/[facility] Co de Phone Number [facility] [place] [address] * (ABNORMAL) APTT (05/22/2017 12:55 PM EST) PTT 133(Criti mary) 25 - 35 sec [facility] Comment: Called by: [email or web address], Read back by: jennifer garcia rn, Date/Time:05/22/17 13:29. The recommended therapeutic range for full dose, unfractionated heparin at [facility] is 80 ? 114 seconds. The use of the anti-Xa (heparin) level rather than the PTT is recommended for monitoring anticoagulation intensity in critically ill patients receiving unfractionated heparin by continuous IV infusion. Blood specimen (specimen) 05/22/2017 12:55 PM EST 05/22/2017 1:13 PM EST Narrative Resulting Agency Comment Spec In Lab Bienvenido Wong MD HEMATOLOGY ORDERABLE S [facility] [place] [address] * EKG 12 Lead (05/22/2017 7:48 AM EST) Ventricular rate 65 BPM MUSE SYSTEM Atrial Rate 65 BPM MUSE SYSTEM P-R Interval 166 ms MUSE SYSTEM QRS Duration 108 ms MUSE SYSTEM Q-T Interval 454 ms MUSE SYSTEM QTC Calculated (Bezet) 472 ms MUSE SYSTEM Calculated P [place] 17 degrees MUSE SYSTEM Calculated R [place] -2 degrees MUSE SYSTEM Calculated T [place] 5 degrees MUSE SYSTEM INTERPRETATION Normal sinus rhythm Possible Left atrial enlargement Left ventricular hypertrophy Possible Inferior infarct (cited on or before 19-MAY-2017) T wave abnormality, consider inferior ischemia Abnormal ECG When compared with ECG of 21-MAY-2017 07:11, No significant change was found I personally reviewed the tracing and edited the fellows interpretation Confirmed by fellow MD Rhonda, Chloé Cid ([id number]) on 05/22/2017 10:57:59 AM Confirmed by MD Gudelia, Valdo ([id number]) on 05/23/2017 5:01:21 PM MUSE SYSTEM 05/22/2017 7:48 AM EST 05/23/2017 5:01 PM EST Melody Collins APRN ECG ORDERABLES Performing Organization Address City/[facility]/ZIP Co de Phone Number MUSE SYSTEM * Basic Metabolic Panel (non-fasting) (05/22/2017 5:46 AM EST) Glucose Lvl 91 65 - 199 mg/dL [facility] Comment:Diabetes: >=200 mg/d L plus symptoms BUN 18 8 - 18 mg/dL [facility] Creatinine 0.90 0.70 - 1.20 mg/dL [facility] Sodium 143 135 - 145 mmol/L [facility] Potassium 4.5 3.5 - 5.0 mmol/L [facility] Comment: Please note: ??Patients with WBC >100,000 may have falsely elevated Potassium levels. ??For accurate Potassium quantification in these patients send serum separator tube (gold top) for subsequent determinations. ??Contact the Clinical Chemistry Laboratory if there are any questions. Chloride 103 98 - 107 mmol/L [facility] CO2 25 22 - 31 mmol/L [facility] Anion Gap 15 5 - 15 mmol/L [facility] Calcium 8.9 8.5 - 10.5 mg/dL [facility] Estimated GFR >60 >=60 [facility] Comment: The reported eGFR should be multiplied by 1.2 for patients. The MDRD is not an appropriate measure of renal function for patients with body mass extremes or in patients with acute kidney failure. http://BudgetSimple/DHnkdep http://BudgetSimple/MCnkf Blood specimen (specimen) 05/22/2017 5:46 AM EST 05/22/2017 6:05 AM EST Narrative Resulting Agency Comment Spec In Lab Bienvenido Wong MD CHEMISTRY ORDERABLES Performing Organization Address [facility] Co de Phone Number [facility] [place] [address] * (ABNORMAL) APTT (05/22/2017 5:46 AM EST) Pathologist [facility] PTT 67(H) 25 - 35 sec [facility] Comment: The recommended therapeutic range for full dose, unfractionated heparin at [facility] is 80 ? 114 seconds. The use of the anti-Xa (heparin) level rather than the PTT is recommended for monitoring anticoagulation intensity in critically ill patients receiving unfractionated heparin by continuous IV infusion. Blood specimen (specimen) 05/22/2017 5:46 AM EST 05/22/2017 6:05 AM EST Narrative Resulting Agency Comment Spec In Lab Melody Collins APRN HEMATOLOGY ORDERA BLES Performing Organization Address [facility] Co de Phone Number [facility] [place] [address] * Differential, Automated (05/22/2017 5:46 AM EST) Pathologist [facility] Neutrophils % 71.2 % [facility] Neutr Abs (ANC) 5.69 1.70 - 6.10 x10(3)/[facility] Lymphocytes % 16.7 % [facility] Lymphocytes Abs 1.3 0.9 - 3.2 x10(3)/[facility] Monocytes % 7.4 % [facility] Monocyte Abs 0.6 0.3 - 0.9 x10(3)/[facility] Eosinophils % 3.9 % [facility] Eosinophils Abs 0.3 0.0 - 0.4 x10(3)/[facility] Basophils % 0.5 % [facility] Basophils Abs 0.0 0.0 - 0.1 x10(3)/[facility] Immature Gran % 0.30 % [facility] Comment: Immature granulocytes(IG's)percentage and absolute count will include metamyelocytes, myelocytes, and promyelocytes. Blood smears from CBCs yielding IG's will be scanned manually for concordance. If this scan disagrees with the automated IG or if promyelocytes are noted, a manual differential will be performed. [place] Gran Abs 0.02 0.00 - 0.04 x10(3)/[facility] Blood specimen (specimen) 05/22/2017 5:46 AM EST 05/22/2017 6:05 AM EST Narrative Resulting Agency Comment Spec In Lab Melody Collins APRN HEMATOLOGY ORDERA BLES [facility] [place] [address] * (ABNORMAL) Hemogram (05/22/2017 5:46 AM EST) WBC 8.0 4.0 - 9.5 x10(3)/[facility] RBC 3.98(L) 4.00 - 5.21 x10(6)/[facility] Hemoglobin 13.0 11.7 - 15.5 gm/dL [facility] Hematocrit 36.4 35.7 - 45.8 % [facility] MCV 91.5 82.6 - 94.4 fL [facility] MCH 32.7(H) 27.1 - 32.0 pg [facility] MCHC 35.7(H) 31.7 - 35.0 gm/dL [facility] Platelets 168 145 - 357 x10(3)/[facility] RDWSD 41.9 37.0 - 46.0 [facility] RDWCV 12.4 11.5 - 14.1 % [facility] MPV 11.1 7.6 - 12.9 [facility] nRBC % Auto 0.0 % [facility] nRBC Abs Auto 0.000 0.000 - 0.000 x10(3)/[facility] Blood specimen (specimen) 05/22/2017 5:46 AM EST 05/22/2017 6:05 AM EST Narrative Resulting Agency Comment Spec In Lab Melody Collins APRN HEMATOLOGY ORDERA BLES [facility] [place] [address] * (ABNORMAL) Prothrombin Time (05/22/2017 5:46 AM EST) PT 14.7(H) 11.8 - 14.0 sec [facility] INR 1.2(H) 0.9 - 1.1 [facility] Comment: An INR <2.0 indicates [...] depending on clinical circumstances. Blood specimen (specimen) 05/22/2017 5:46 AM EST 05/22/2017 6:05 AM EST Narrative Resulting Agency Comment Spec In Lab Melody A Dennis KEN HEMATOLOGY ORDERA BLES Performing Organization Address [facility] Co de Phone Number [facility] [place] [address] * EKG 12 Lead (05/21/2017 7:11 AM EST) Ventricular rate 62 BPM MUSE SYSTEM Atrial Rate 62 BPM MUSE SYSTEM P-R Interval 168 ms MUSE SYSTEM QRS Duration 108 ms MUSE SYSTEM Q-T Interval 442 ms MUSE SYSTEM QTC Calculated (Bezet) 448 ms MUSE SYSTEM Calculated P [place] 14 degrees MUSE SYSTEM Calculated T [place] -5 degrees MUSE SYSTEM INTERPRETATION Normal sinus rhythm Possible Left atrial enlargement Left ventricular hypertrophy with repolarization abnormalities Cannot rule out Inferior infarct (cited on or before 19-MAY-2017) T wave abnormality, consider inferior ischemia Abnormal ECG When compared with ECG of 20-MAY-2017 07:07, No significant change was found I personally reviewed the tracing and edited the fellows interpretation Confirmed by fellow MD Kathy, Zhang ([id number]) on 05/21/2017 10:33:48 AM Confirmed by MD Gudelia, Valdo ([id number]) on 05/21/2017 3:36:10 PM MUSE SYSTEM 05/21/2017 7:11 AM EST 05/21/2017 3:36 PM EST Melody Morris Dennis KEN ECG ORDERABLES Performing Organization Address [facility] de Phone Number MUSE SYSTEM * (ABNORMAL) APTT (05/21/2017 3:53 AM EST) PTT 92(H) 25 - 35 sec [facility] Comment: The recommended therapeutic range for full dose, unfractionated heparin at [facility] is 80 ? 114 seconds. The use of the anti-Xa (heparin) level rather than the PTT is recommended for monitoring anticoagulation intensity in critically ill patients receiving unfractionated heparin by continuous IV infusion. Blood specimen (specimen) 05/21/2017 3:53 AM EST 05/21/2017 4:08 AM EST Narrative Resulting Agency Comment Spec In Lab Melody Collins SUELLEN HEMATOLOGY ORDERA BLES Performing Organization Address City/[facility]/ZIP Co de Phone Number [facility] [place] [address] * Differential, Automated (05/21/2017 3:53 AM EST) Neutrophils % 58.1 % [facility] Neutr Abs (ANC) 3.20 1.70 - 6.10 x10(3)/[facility] Lymphocytes % 26.3 % [facility] Lymphocytes Abs 1.4 0.9 - 3.2 x10(3)/[facility] Monocytes % 9.8 % [facility] Monocyte Abs 0.5 0.3 - 0.9 x10(3)/[facility] Eosinophils % 4.7 % [facility] Eosinophils Abs 0.3 0.0 - 0.4 x10(3)/[facility] Basophils % 0.9 % [facility] Basophils Abs 0.0 0.0 - 0.1 x10(3)/[facility] Immature Gran % 0.20 % [facility] Comment: Immature granulocytes(IG's)percentage and absolute count will include metamyelocytes, myelocytes, and promyelocytes. Blood smears from CBCs yielding IG's will be scanned manually for concordance. If this scan disagrees with the automated IG or if promyelocytes are noted, a manual differential will be performed. [place] Gran Abs 0.01 0.00 - 0.04 x10(3)/[facility] Blood specimen (specimen) 05/21/2017 3:53 AM EST 05/21/2017 4:08 AM EST Narrative Resulting Agency Comment Spec In Lab Melody Collins SUELLEN HEMATOLOGY ORDERA BLES Performing Organization Address City/[facility]/ZIP Co de Phone Number [facility] [place] [address] * (ABNORMAL) Hemogram (05/21/2017 3:53 AM EST) Pathologist [facility] WBC 5.5 4.0 - 9.5 x10(3)/[facility] RBC 4.15 4.00 - 5.21 x10(6)/[facility] Hemoglobin 13.5 11.7 - 15.5 gm/dL [facility] Hematocrit 38.2 35.7 - 45.8 % [facility] MCV 92.0 82.6 - 94.4 fL [facility] MCH 32.5(H) 27.1 - 32.0 pg [facility] MCHC 35.3(H) 31.7 - 35.0 gm/dL [facility] Platelets 167 145 - 357 x10(3)/[facility] RDWSD 42.9 37.0 - 46.0 [facility] RDWCV 12.6 11.5 - 14.1 % [facility] MPV 10.6 7.6 - 12.9 [facility] nRBC % Auto 0.0 % [facility] nRBC Abs Auto 0.000 0.000 - 0.000 x10(3)/[facility] Blood specimen (specimen) 05/21/2017 3:53 AM EST 05/21/2017 4:08 AM EST Narrative Resulting Agency Comment Spec In Lab Melody Collins APRN HEMATOLOGY ORDERA BLES [facility] [place] [address] * (ABNORMAL) Prothrombin Time (05/21/2017 3:53 AM EST) PT 17.2(H) 11.8 - 14.0 sec [facility] INR 1.4(H) 0.9 - 1.1 [facility] Comment: An INR <2.0 indicates [...] depending on clinical circumstances. Blood specimen (specimen) 05/21/2017 3:53 AM EST 05/21/2017 4:08 AM EST Narrative Resulting Agency Comment Spec In Lab Melody Collins APRN HEMATOLOGY ORDERA BLES [facility] [place] [address] * (ABNORMAL) BMP w/fasting Glucose (05/21/2017 3:53 AM EST) Glucose Fasting 95 65 - 99 mg/dL [facility] Comment: ?Fasting* Glucose Interpretive Criteria Normal ?65-99 mg/dL Impaired Fasting glucose ?100-125 mg/dL Consistent with Diabetes Mellitus ? >or= 126 mg/dL *Fasting is defined as no caloric intake for at least 8 hours In the absence of unequivocal hyperglycemia a plasma glucose value of >or= 126 mg/dL should be repeated on a subsequent day. Diagnosis and Classification of Diabetes Mellitus, Position Statement from the [place] [employer]. ??Diabetes Care, Volume 33, Supplement 1, Apr 2009 BUN 19(H) 8 - 18 mg/dL [facility] Creatinine 0.75 0.70 - 1.20 mg/dL [facility] Sodium 140 135 - 145 mmol/L [facility] Potassium 4.3 3.5 - 5.0 mmol/L [facility] Comment: Please note: ??Patients with WBC >100,000 may have falsely elevated Potassium levels. ??For accurate Potassium quantification in these patients send serum separator tube (gold top) for subsequent determinations. ??Contact the Clinical Chemistry Laboratory if there are any questions. Chloride 102 98 - 107 mmol/L [facility] CO2 26 22 - 31 mmol/L [facility] Anion Gap 12 5 - 15 mmol/L [facility] Calcium 9.1 8.5 - 10.5 mg/dL [facility] Estimated GFR >60 >=60 [facility] Comment: The reported eGFR should be multiplied by 1.2 for patients. The MDRD is not an appropriate measure of renal function for patients with body mass extremes or in patients with acute kidney failure. http://BudgetSimple/DHnkdep http://BudgetSimple/[facility]kf Blood specimen (specimen) 05/21/2017 3:53 AM EST 05/21/2017 4:08 AM EST Narrative Resulting Agency Comment Spec In Lab Melody Collins APRN CHEMISTRY ORDERAB LES Performing Organization Address [facility] Co de Phone Number [facility] [place] [address] * (ABNORMAL) APTT (05/20/2017 10:00 PM EST) [facility] PTT 86(H) 25 - 35 sec [facility] Comment: The recommended therapeutic range for full dose, unfractionated heparin at [facility] is 80 ? 114 seconds. The use of the anti-Xa (heparin) level rather than the PTT is recommended for monitoring anticoagulation intensity in critically ill patients receiving unfractionated heparin by continuous IV infusion. Blood specimen (specimen) 05/20/2017 10:00 PM EST 05/20/2017 10:06 PM EST Narrative Resulting Agency Comment Spec In Lab Jeff Hernadez MD HEMATOLOGY ORDERABLE S Performing Organization Address City/[facility]/ZIP Co de Phone Number [facility] [place] [address] * (ABNORMAL) Point of Care Blood Gas Historical (05/20/2017 10:58 AM EST) [facility] POC pH 7.39 7.35 - 7.45 [facility] POC PCO2 43 35 - 45 mmHg [facility] POC PO2 61(L) 85 - 104 mmHg [facility] POC Base Excess 1.0 -3.0 - 3.0 mmol/L [facility] POC HCO3 25.8 20.0 - 26.0 mmol/L [facility] POC Sodium 139 135 - 145 mmol/L [facility] POC Potassium 4.2 3.5 - 5.0 mmol/L [facility] POC Ionized Ca 1.22 1.15 - 1.33 mmol/L [facility] POC Hematocrit 32.0(L) 34.0 - 45.0 % [facility] POC Calc Hgb 10.9(L) 11.2 - 15.7 gm/dL [facility] Comment:The calculation of h emoglobin from hematocrit assumes a normal MCHC. POC Bgas Loc CC LAB [facility] Blood specimen (specimen) 05/20/2017 10:58 AM EST 05/25/2017 8:52 AM EST Bienvenido Wong MD CHEMISTRY ORDERABLES Performing Organization Address [facility]/State/[facility] Co de Phone Number [facility] [place] [address] * CARDIAC CATHETERIZATION (05/20/2017 10:07 AM EST) Anatomical Region Laterality Modality Other Narrative 05/21/2017 2:36 AM EST ?[facility] ? Cardiac Catheterization/Intervention Report ? Patient Name: Noah Dumont. ? Procedure Date: 05/20/2017 ? A #: [id number] ? Primary Physician: Angel, Phuong J ? Case #: [id number] ? File Name: [id number] ? Catheterization Order Number: [id number] ? [facility] ? Final Report [place], [place] ? Patient Name: ? Noah M. Lemoyne ? ID#: ?[id number] ? : ?1970 ? Procedure Date: ? May 20, 2017 ?Case #: ? [id number] ? Room: ? 2 ? Case Physician: ? Phuong Ortiz M.D. ?Start: ?09:14 ? Admission: ??05/17/2017 ? Referring Physician: ??Mckenna Genao M.D. ? Discharge: ??05/30/2017 ? Procedures: ?* Coronary Angiography ?* Right Heart Catheterization ?* Oximetry ?* Arterial Blood Gases ? History ?Noah M. Lemoyne is a 47 year old woman. She has hypertension and a ?family history of coronary artery disease. The patient has a history of ?smoking. She has hypercholesterolemia managed by diet and lipid therapy. ?The patient has a history of chest pain. She has a history of dyspnea ?with NYHA functional class II and dilated cardiomyopathy. The patient has ?aortic regurgitation. She has a history of a heart murmur. The patient ?has a remote cerebral vascular accident and a history of transient ?ischemic attacks. She also has a history of an abnormal echocardiogram. ?Prior to the initiation of this procedure, the patient was designated as ?ASA Class III. ? Patient Status at Catheterization: ?The patient presented with: symptom unlikely to be ischemic (w/i 14 ?days). [place] [employer] angina class was III. No stress or ?imaging studies were performed prior to this procedure. The status of the ?diagnostic procedure was Urgent. ? Technique: ?A 6 SLFr sheath was inserted in the right radial artery utilizing the ?Seldinger technique. A 6 SLFr sheath was inserted in the right median ?antecubital vein utilizing the Seldinger technique. Right heart ?catheterization was performed utilizing a 6Fr Balloon wedge catheter. The ?left coronary artery was injected utilizing a 5Fr EBU 3.5 catheter. A 6Fr ?JR 5 catheter was used to inject the right coronary artery. 1,500 units ?of heparin were administered. Intracoronary nitroglycerin was given ?during this case. A total of 100cc of Omnipaque were opened, 85cc of ?Omnipaque were administered and 15cc of Omnipaque were wasted. Radiation: ?Fluoro time was 12.1 minutes, dose area product was 25,801 mGYcm2 and air ?kerma was 366 mGY. ?The patient received the following medications prior to and during the ?procedure: Aspirin (any) and Unfractionated Heparin (any). ? Hemodynamics: ?Right Heart Pressures ? Hemodynamics: ? Syst Diast ? EDP ?a ?v ? m ?RA ? 10 ? 5 ? 4 ?RV 22 ?4 ?PA 16 ? 4 ?10 ?PCW ?7 ?5 ? 3 ? Hemodynamic Profile: ?Profile 1 ?CO ? 4.55 ?CI ? 2.57 ?TPR ?176 ?PVR ?123 ?Technique ?Estimated Danielle ?Left Heart Pressures ? Resting: ? Syst Diast ? EDP ?a ?v ? m ?Ao 99 ?31 ?Comments: ??In the lightly sedated, supine state, right and left sided ? filling pressures are low normal (mean RA 4 mmHg, wedge 3 ? mmHg). No pulmonary hypertension seen (mean PA 10 mmHg). ? Systemic pressure low normal (99/31 mmHg) with wide pulse ? pressure. Cardiac output by estimated Danielle normal (4.6 L/min). ? Together these findings suggest low normal filling pressures ? and preserved cardiac output. ? 250ml NS bolus at 0926. AO opening 99/31 (55). RArt pressure ? 87/22(45). ? Oximetry: ?Location ? %Sat ?Location ?%Sat ?Main Pulmonary Artery ??63.0 ?Peripheral Arterial ? 90.0 ? Coronary Angiography: ?Dominance: Right ?Left Main ? The left main was normal, free of disease. ?Left Anterior Descending ? The left anterior descending (LAD) was normal, free of disease. ?Left Circumflex ? The left circumflex (LCX) was normal, free of disease. ?Right Coronary Artery ? The right coronary artery (RCA) was normal, free of disease. ? Indication for Selected Procedures: ?Right Heart catheterization was initiated for Aortic valve disorders. ? Vascular Access: ?Vascular Access Angiogram: ? A selective angiogram at the right median antecubital vein revealed ? no significant obstructive disease. ?Vascular Access Management: ? Mechanical Compression of the right radial artery access site was ? performed. ? Manual Compression of the right median antecubital vein access site ? was performed. ? Point of Care Testing: ?ABG: ? Arterial Blood gasses were performed using the I-Stat analyzer at ? 09:58: pH: 7.39, pCO2: 43.1, pO2: 61.0, sPO2: 90%, HCO3: 25 on FIO2: ? ra. ?I-Stat: ? I-Stat was performed using the I-Stat analyzer at 09:58: Na+: 139, ? K+: 4.2, iCa++: 1.22, Hct: 32%, Hb: 10.9. ? Conclusions: ?* Normal coronary arteries ? Complications/Events: ?The patient had no complications during these procedures. ? Recommendations: ?Based upon the results of this procedure, it was recommended that ?valvular surgery be considered. ? Comments: ?Results discussed with Dr Hernadez and Ubaldo, and patient and her . ?Note extensive lidocaine used prior to radial access given sensitivity. ?Radial provided good support for procedure, and 5 Fr guide needed to ?reach coronaries. Venous sheath with some spasm during case. Examined in ?recovery, no swelling or tenderness, no pallor. Mild numbess over lateral ?side of thumb. ?The attending physician was present for the entire procedure. ?Dr. Phuong Ortiz M.D. was present during the moderate sedation ?intraservice time as documented by the sedation nurse. ??Case time = 00:45. ?Dr. Phuong Ortiz M.D. performed the coronary angiography, right ?heart catheterization, oximetry and ABG. ? Phuong J Coylewright, ? M.D. ? Electronically Signed by: Phuong J Coylewright, M.D. ? Report Finalized: 05/20/2017 ??17:45 ? Report Last Ammended: 07/27/2017 ??05:25 ? Procedure Note Phuong Ortiz MD - 07/27/2017 [facility] Cardiac Catheterization/Intervention Report Patient Name: Noah Dumont Procedure Date: 05/20/2017 A #: [id number] Primary Physician: Phuong Ortiz Case #: [id number] File Name: [id number] Catheterization Order Number: [id number] [facility] FinalReport [place], [place] Patient Name: Noah Dumont ID#:[id number] :1970 Procedure Date: May 20, 2017 Case #: [id number] Room: 2 Case Physician: Phuong Ortiz M.D. Start: : Admission:05/17/2017 Referring Physician: Mckenna Genao M.D. Discharge:05/30/2017 Procedures: * Coronary Angiography * Right Heart Catheterization * Oximetry * Arterial Blood Gases History Noah Dumont is a 47 year old woman. She has hypertension and a family history of coronary artery disease. The patient has a historyof smoking. She has hypercholesterolemia managed by diet and lipidtherapy. The patient has a history of chest pain. She has a history ofdyspnea with NYHA functional class II and dilated cardiomyopathy. Thepatient has aortic regurgitation. She has a history of a heart murmur. Thepatient has a remote cerebral vascular accident and a history of transient ischemic attacks. She also has a history of an abnormalechocardiogram. Prior to the initiation of this procedure, the patient wasdesignated as ASA Class III. Patient Status at Catheterization: The patient presented with: symptom unlikely to be ischemic (w/i 14 days). [place] [employer] angina class was III. Nostress or imaging studies were performed prior to this procedure. The statusof the diagnostic procedure was Urgent. Technique: A 6 SLFr sheath was inserted in the right radial artery utilizingthe Seldinger technique. A 6 SLFr sheath was inserted in the rightmedian antecubital vein utilizing the Seldinger technique. Right heart catheterization was performed utilizing a 6Fr Balloon wedgecatheter. The left coronary artery was injected utilizing a 5Fr EBU 3.5 catheter.A 6Fr JR 5 catheter was used to inject the right coronary artery. 1,500units of heparin were administered. Intracoronary nitroglycerin was given during this case. A total of 100cc of Omnipaque were opened, 85cc of Omnipaque were administered and 15cc of Omnipaque were wasted.Radiation: Fluoro time was 12.1 minutes, dose area product was 25,801 [id number] air kerma was 366 mGY. The patient received the following medications prior to and duringthe procedure: Aspirin (any) and Unfractionated Heparin (any). Hemodynamics: Right Heart Pressures Hemodynamics: Syst Diast EDP a v m RA 10 5 4 RV 22 4 PA 16 4 10 PCW 7 5 3 Hemodynamic Profile: Profile 1 CO 4.55 CI 2.57 TPR 176 PVR 123 Technique Estimated Danielle Left Heart Pressures Resting: Syst Diast EDP a v m Ao 99 31 Comments: In the lightly sedated, supine state, right and leftsided filling pressures are low normal (mean RA 4 mmHg, wedge 3 mmHg). No pulmonary hypertension seen (mean PA 10 mmHg). Systemic pressure low normal (99/31 mmHg) with wide pulse pressure. Cardiac output by estimated Danielle normal (4.6L/min). Together these findings suggest low normal fillingpressures and preserved cardiac output. 250ml NS bolus at 0926. AO opening 99/31 (55). RArtpressure 87/22(45). Oximetry: Location %Sat Location %Sat Main [...] artery (RCA) was normal, free of disease. Indication for Selected Procedures: Right Heart catheterization was initiated for Aortic valvedisorders. Vascular Access: Vascular Access Angiogram: A selective angiogram at the right median antecubital veinrevealed no significant obstructive disease. Vascular Access Management: Mechanical Compression of the right radial artery access sitewas performed. Manual Compression of the right median antecubital vein accesssite was performed. Point of Care Testing: ABG: Arterial Blood gasses were performed using the I-Stat analyzerat 09:58: pH: 7.39, pCO2: 43.1, pO2: 61.0, sPO2: 90%, HCO3: 25 onFIO2: ra. I-Stat: I-Stat was performed using the I-Stat analyzer at 09:58: Na+:139, K+: 4.2, iCa++: 1.22, Hct: 32%, Hb: 10.9. Conclusions: * Normal coronary arteries Complications/Events: The patient had no complications during these procedures. Recommendations: Based upon the results of this procedure, it was recommended that valvular surgery be considered. Comments: Results discussed with Dr Urias, and patient and herhusband. Note extensive lidocaine used prior to radial access givensensitivity. Radial provided good support for procedure, and 5 Fr guide needed to reach coronaries. Venous sheath with some spasm during case.Examined in recovery, no swelling or tenderness, no pallor. Mild numbess overlateral side of thumb. The attending physician was present for the entire procedure. Dr. Phuong Ortiz M.D. was present during the moderate sedation intraservice time as documented by the sedation nurse. Case time =00:45. Dr. Phuong Ortiz M.D. performed the coronary angiography,right heart catheterization, oximetry and ABG. Phuong Montgomery M.D. Electronically Signed by: Phuong Ortiz M.D. Report Finalized: 05/20/2017 17:45 Report Last Ammended: 07/27/2017 05:25 Phuong Ortiz MD CARDIAC CATH [facility] * EKG 12 Lead (05/20/2017 7:07 AM EST) Ventricular rate 59 BPM MUSE SYSTEM Atrial Rate 59 BPM MUSE SYSTEM P-R Interval 162 ms MUSE SYSTEM QRS Duration 108 ms MUSE SYSTEM Q-T Interval 470 ms MUSE SYSTEM QTC Calculated (Bezet) 465 ms MUSE SYSTEM Calculated P [place] 15 degrees MUSE SYSTEM Calculated R [place] 2 degrees MUSE SYSTEM Calculated T [place] -4 degrees MUSE SYSTEM INTERPRETATION Sinus bradycardia Voltage criteria for left ventricular hypertrophy T wave abnormality, consider inferior ischemia Cannot rule out Inferior infarct (cited on or before 19-MAY-2017 Abnormal ECG When compared with ECG of 19-MAY-2017 17:20, (unconfirmed) No significant change was found I personally reviewed the tracing and edited the fellows interpretation Confirmed by fellow MD Rhonda, Chloé Cid ([id number]) on 05/20/2017 10:44:38 AM Confirmed by MD Gudelia, Valdo ([id number]) on 05/20/2017 4:16:12 PM MUSE SYSTEM 05/20/2017 7:07 AM EST 05/20/2017 4:16 PM EST Melody Collins APRN ECG ORDERABLES MUSE SYSTEM * Differential, Automated (05/20/2017 5:13 AM EST) Neutrophils % 53.8 % [facility] Neutr Abs (ANC) 3.22 1.70 - 6.10 x10(3)/[facility] Lymphocytes % 29.2 % [facility] Lymphocytes Abs 1.8 0.9 - 3.2 x10(3)/[facility] Monocytes % 10.9 % [facility] Monocyte Abs 0.6 0.3 - 0.9 x10(3)/[facility] Eosinophils % 4.8 % [facility] Eosinophils Abs 0.3 0.0 - 0.4 x10(3)/[facility] Basophils % 1.0 % [facility] Basophils Abs 0.1 0.0 - 0.1 x10(3)/[facility] Immature Gran % 0.30 % [facility] Comment: Immature granulocytes(IG's)percentage and absolute count will include metamyelocytes, myelocytes, and promyelocytes. Blood smears from CBCs yielding IG's will be scanned manually for concordance. If this scan disagrees with the automated IG or if promyelocytes are noted, a manual differential will be performed. [place] Gran Abs 0.02 0.00 - 0.04 x10(3)/[facility] Blood specimen (specimen) 05/20/2017 5:13 AM EST 05/20/2017 5:47 AM EST Narrative Resulting Agency Comment Spec In Lab Melody Collins APRN HEMATOLOGY ORDERA BLES [facility] [place] [address] * (ABNORMAL) Hemogram (05/20/2017 5:13 AM EST) WBC 6.0 4.0 - 9.5 x10(3)/[facility] RBC 4.39 4.00 - 5.21 x10(6)/[facility] Hemoglobin 14.1 11.7 - 15.5 gm/dL [facility] Hematocrit 40.3 35.7 - 45.8 % [facility] MCV 91.8 82.6 - 94.4 fL [facility] MCH 32.1(H) 27.1 - 32.0 pg [facility] MCHC 35.0 31.7 - 35.0 gm/dL [facility] Platelets 180 145 - 357 x10(3)/[facility] RDWSD 42.5 37.0 - 46.0 fL [facility] RDWCV 12.5 11.5 - 14.1 % [facility] MPV 11.0 7.6 - 12.9 fL [facility] nRBC % Auto 0.0 % [facility] nRBC Abs Auto 0.000 0.000 - 0.000 x10(3)/mcL [facility] Blood specimen (specimen) 05/20/2017 5:13 AM EST 05/20/2017 5:47 AM EST Narrative Resulting Agency Comment Spec In Lab Melody Collins APRN HEMATOLOGY ORDERA BLES Performing Organization Address [facility] Co de Phone Number [facility] [place] [address] * (ABNORMAL) APTT (05/20/2017 5:13 AM EST) PTT 82(H) 25 - 35 sec [facility] Comment: The recommended therapeutic range for full dose, unfractionated heparin at [facility] is 80 ? 114 seconds. The use of the anti-Xa (heparin) level rather than the PTT is recommended for monitoring anticoagulation intensity in critically ill patients receiving unfractionated heparin by continuous IV infusion. Blood specimen (specimen) 05/20/2017 5:13 AM EST 05/20/2017 5:47 AM EST Narrative Resulting Agency Comment Spec In Lab Melody Collins APRN HEMATOLOGY ORDERA BLES Performing Organization Address [facility] Co de Phone Number [facility] [address] * (ABNORMAL) Prothrombin Time (05/20/2017 5:13 AM EST) PT 20.1(H) 11.8 - 14.0 sec [facility] INR 1.7(H) 0.9 - 1.1 [facility] Comment: An INR <2.0 indicates [...] depending on clinical circumstances. Blood specimen (specimen) 05/20/2017 5:13 AM EST 05/20/2017 5:47 AM EST Narrative Resulting Agency Comment Spec In Lab Melody Collins APRN HEMATOLOGY ORDERA BLES [facility] [place] [address] * (ABNORMAL) BMP w/fasting Glucose (05/20/2017 5:13 AM EST) Glucose Fasting 91 65 - 99 mg/dL [facility] Comment: ?Fasting* Glucose Interpretive Criteria Normal ?65-99 mg/dL Impaired Fasting glucose ?100-125 mg/dL Consistent with Diabetes Mellitus ? >or= 126 mg/dL *Fasting is defined as no caloric intake for at least 8 hours In the absence of unequivocal hyperglycemia a plasma glucose value of >or= 126 mg/dL should be repeated on a subsequent day. Diagnosis and Classification of Diabetes Mellitus, Position Statement from the [place] [employer]. ??Diabetes Care, Volume 33, Supplement 1, Apr 2009 BUN 22(H) 8 - 18 mg/dL [facility] Creatinine 1.00 0.70 - 1.20 mg/dL [facility] Sodium 141 135 - 145 mmol/L [facility] Potassium 4.1 3.5 - 5.0 mmol/L [facility] Comment: Please note: ??Patients with WBC >100,000 may have falsely elevated Potassium levels. ??For accurate Potassium quantification in these patients send serum separator tube (gold top) for subsequent determinations. ??Contact the Clinical Chemistry Laboratory if there are any questions. Chloride 100 98 - 107 mmol/L [facility] CO2 27 22 - 31 mmol/L [facility] Anion Gap 14 5 - 15 mmol/L [facility] Calcium 9.7 8.5 - 10.5 mg/dL [facility] Estimated GFR 60 >=60 [facility] Comment: The reported eGFR should be multiplied by 1.2 for patients. The MDRD is not an appropriate measure of renal function for patients with body mass extremes or in patients with acute kidney failure. http://BudgetSimple/DHnkdep http://[employer]/[facility] Blood specimen (specimen) 05/20/2017 5:13 AM EST 05/20/2017 5:47 AM EST Narrative Resulting Agency Comment Spec In Lab Melody Collins APRN CHEMISTRY ORDERAB LES Performing Organization Address [facility] de Phone Number [facility] [address] * (ABNORMAL) APTT (05/19/2017 9:54 PM EST) PTT >160.0(Cr itical) 25 - 35 [facility] Comment: Called by: harriet, Read back by: Afsaneh Hill, Date/Time:05/19/17 22:32. The recommended therapeutic range for full dose, unfractionated heparin at [facility] is 80 ? 114 seconds. The use of the anti-Xa (heparin) level rather than the PTT is recommended for monitoring anticoagulation intensity in critically ill patients receiving unfractionated heparin by continuous IV infusion. Blood specimen (specimen) 05/19/2017 9:54 PM EST 05/19/2017 10:05 PM EST Narrative Resulting Agency Comment Spec In Lab Melody Collins APRN HEMATOLOGY ORDERA BLES Performing Organization Address [facility] Co de Phone Number [facility] [address] * EKG 12 Lead (05/19/2017 5:20 PM EST) Ventricular rate 65 BPM MUSE SYSTEM Atrial Rate 65 BPM MUSE SYSTEM P-R Interval 158 ms MUSE SYSTEM QRS Duration 110 ms MUSE SYSTEM Q-T Interval 432 ms MUSE SYSTEM QTC Calculated (Bezet) 449 ms MUSE SYSTEM Calculated R [place] -24 degrees MUSE SYSTEM Calculated T [place] -29 degrees MUSE SYSTEM INTERPRETATION Normal sinus rhythm with sinus arrhythmia Voltage criteria for left ventricular hypertrophy Inferior infarct (cited on or before 19-MAY-2017) Poor R-wave progression Abnormal ECG When compared with ECG of 19-MAY-2017 06:59, T wave inversion more evident in Inferior leads Confirmed by MD Jorge A, Zhang ([id number]) on 05/20/2017 8:53:47 AM MUSE SYSTEM 05/19/2017 5:20 PM EST 05/20/2017 8:53 AM EST Melody Collins APRN ECG ORDERABLES Performing Organization Address City/[facility]/ZIP Co de Phone Number MUSE SYSTEM * (ABNORMAL) APTT (05/19/2017 12:25 PM EST) Pathologist [facility] PTT 49(H) 25 - 35 sec [facility] Comment: The recommended therapeutic range for full dose, unfractionated heparin at [facility] is 80 ? 114 seconds. The use of the anti-Xa (heparin) level rather than the PTT is recommended for monitoring anticoagulation intensity in critically ill patients receiving unfractionated heparin by continuous IV infusion. Blood specimen (specimen) 05/19/2017 12:25 PM EST 05/19/2017 2:10 PM EST Narrative Resulting Agency Comment Spec In Lab Melody Collins APRN HEMATOLOGY ORDERA BLES [facility] [place] [place] [address] * (ABNORMAL) Prothrombin Time (05/19/2017 12:25 PM EST) Pathologist [facility] PT 22.9(H) 11.8 - 14.0 sec [facility] INR 2.0(H) 0.9 - 1.1 [facility] Comment: An INR <2.0 indicates [...] depending on clinical circumstances. Blood specimen (specimen) 05/19/2017 12:25 PM EST 05/19/2017 12:45 PM EST Narrative Resulting Agency Comment Spec In Lab Melody Collins APRN HEMATOLOGY ORDERA BLES Performing Organization Address City/[facility]/ZIP Co de Phone Number [facility] [address] * EKG 12 Lead (05/19/2017 6:59 AM EST) Ventricular rate 62 BPM MUSE SYSTEM Atrial Rate 62 BPM MUSE SYSTEM P-R Interval 172 ms MUSE SYSTEM QRS Duration 110 ms MUSE SYSTEM Q-T Interval 462 ms MUSE SYSTEM QTC Calculated (Bezet) 468 ms MUSE SYSTEM Calculated P [place] 16 degrees MUSE SYSTEM Calculated R [place] 17 degrees MUSE SYSTEM Calculated T [place] 5 degrees MUSE SYSTEM INTERPRETATION Normal sinus rhythm Poor R wave progression Cannot rule out Anterior infarct , age undetermined T wave abnormality, consider inferior ischemia T wave abnormality, consider anterior ischemia Abnormal ECG When compared with ECG of 18-MAY-2017 01:33, No significant change was found I personally reviewed the tracing and edited the fellows interpretation Confirmed by fellow MD Rhonda, Chloé Cid ([id number]) on 05/19/2017 10:58:16 AM Confirmed by MD Gudelia, Valdo ([id number]) on 05/19/2017 3:48:21 PM MUSE SYSTEM 05/19/2017 6:59 AM EST 05/19/2017 3:48 PM EST Melody Collins APRN ECG ORDERABLES Performing Organization Address City/[facility]/ZIP Co de Phone Number MUSE SYSTEM * Differential, Automated (05/19/2017 5:35 AM EST) Neutrophils % 58.9 % [facility] Neutr Abs (ANC) 3.30 1.70 - 6.10 x10(3)/[facility] Lymphocytes % 25.5 % [facility] Lymphocytes Abs 1.4 0.9 - 3.2 x10(3)/[facility] Monocytes % 9.4 % [facility] Monocyte Abs 0.5 0.3 - 0.9 x10(3)/[facility] Eosinophils % 5.3 % [facility] Eosinophils Abs 0.3 0.0 - 0.4 x10(3)/[facility] Basophils % 0.7 % [facility] Basophils Abs 0.0 0.0 - 0.1 x10(3)/[facility] Immature Gran % 0.20 % [facility] Comment: Immature granulocytes(IG's)percentage and absolute count will include metamyelocytes, myelocytes, and promyelocytes. Blood smears from CBCs yielding IG's will be scanned manually for concordance. If this scan disagrees with the automated IG or if promyelocytes are noted, a manual differential will be performed. [place] Gran Abs 0.01 0.00 - 0.04 x10(3)/[facility] Blood specimen (specimen) 05/19/2017 5:35 AM EST 05/19/2017 5:51 AM EST Narrative Resulting Agency Comment Spec In Lab Melody Collins APRN HEMATOLOGY ORDERA BLES [facility] [place] [address] * (ABNORMAL) Hemogram (05/19/2017 5:35 AM EST) WBC 5.6 4.0 - 9.5 x10(3)/[facility] RBC 4.53 4.00 - 5.21 x10(6)/[facility] Hemoglobin 14.8 11.7 - 15.5 gm/dL [facility] Hematocrit 41.8 35.7 - 45.8 % [facility] MCV 92.3 82.6 - 94.4 fL [facility] MCH 32.7(H) 27.1 - 32.0 pg [facility] MCHC 35.4(H) 31.7 - 35.0 gm/dL [facility] Platelets 165 145 - 357 x10(3)/[facility] RDWSD 42.5 37.0 - 46.0 fL [facility] RDWCV 12.5 11.5 - 14.1 % [facility] MPV 10.7 7.6 - 12.9 fL [facility] nRBC % Auto 0.0 % [facility] nRBC Abs Auto 0.000 0.000 - 0.000 x10(3)/[facility] Blood specimen (specimen) 05/19/2017 5:35 AM EST 05/19/2017 5:51 AM EST Narrative Resulting Agency Comment Spec In Lab Melody Collins APRN HEMATOLOGY ORDERA BLES [facility] [place] [address] * (ABNORMAL) Prothrombin Time (05/19/2017 5:35 AM EST) PT 24.8(H) 11.8 - 14.0 sec [facility] INR 2.2(H) 0.9 - 1.1 [facility] Comment: An INR <2.0 indicates [...] depending on clinical circumstances. Blood specimen (specimen) 05/19/2017 5:35 AM EST 05/19/2017 5:51 AM EST Narrative Resulting Agency Comment Spec In Lab Melody Collins SUELLEN HEMATOLOGY ORDERA BLES [facility] [place] [place] [address] * BMP w/fasting Glucose (05/19/2017 5:35 AM EST) Glucose Fasting 84 65 - 99 mg/dL [facility] Comment: ?Fasting* Glucose Interpretive Criteria Normal ?65-99 mg/dL Impaired Fasting glucose ?100-125 mg/dL Consistent with Diabetes Mellitus ? >or= 126 mg/dL *Fasting is defined as no caloric intake for at least 8 hours In the absence of unequivocal hyperglycemia a plasma glucose value of >or= 126 mg/dL should be repeated on a subsequent day. Diagnosis and Classification of Diabetes Mellitus, Position Statement from the [place] [employer]. ??Diabetes Care, Volume 33, Supplement 1, Apr 2009 BUN 18 8 - 18 mg/dL [facility] Creatinine 0.83 0.70 - 1.20 mg/dL [facility] Sodium 143 135 - 145 mmol/L [facility] Potassium 4.5 3.5 - 5.0 mmol/L [facility] Comment: Please note: ??Patients with WBC >100,000 may have falsely elevated Potassium levels. ??For accurate Potassium quantification in these patients send serum separator tube (gold top) for subsequent determinations. ??Contact the Clinical Chemistry Laboratory if there are any questions. Chloride 102 98 - 107 mmol/L [facility] CO2 28 22 - 31 mmol/L [facility] Anion Gap 13 5 - 15 mmol/L [facility] Calcium 9.7 8.5 - 10.5 mg/dL [facility] Estimated GFR >60 >=60 [facility] Comment: The reported eGFR should be multiplied by 1.2 for patients. The MDRD is not an appropriate measure of renal function for patients with body mass extremes or in patients with acute kidney failure. http://[employer]/DHnkdep http://[employer]/DHMCnkf Blood specimen (specimen) 05/19/2017 5:35 AM EST 05/19/2017 5:51 AM EST Narrative Resulting Agency Comment Spec In Lab Melody Collins APRN CHEMISTRY ORDERAB LES [facility] [place] [address] * Cardiac Enzymes (LEB/CGP) (05/18/2017 12:35 PM EST) Troponin-T <0.01 0.00 - 0.00 ng/mL [facility] Comment: The 99th percentile for Troponin T is less than 0.01 ng/mL, any detectable cTnT concentration using this assay should be considered elevated. According to the third universal definition of myocardial infarction the following criteria with a clinical presentation consistent with acute myocardial ischemia meets the diagnosis for a myocardial infarction (CT). Detection of a rise and/or fall of cTnT, with at least one value greater than the 99th percentile (> or = 0.01) and with at least one of the following ?? Symptoms of ischemia ?? New or presumed new significant WX-[id number]-L wave (ST-T) changes or new left bundle [...] additional sample may be indicated. Reference: Third [place] Definition of Myocardial Infarction. Journal of the [place] [employer] 2012;60:1581-98 CK, Total 71 0 - 160 unit/L [facility] Blood specimen (specimen) 05/18/2017 12:35 PM EST 05/18/2017 12:37 PM EST Narrative Resulting Agency Comment Spec In Lab Andrea Stewart MD CHEMISTRY ORDERABLES [facility] [place] [address] * ECHO COMPLETE (05/18/2017 10:55 AM EST) EF 55 [facility] SYSTEM Anatomical Region Laterality Modality Other 05/18/2017 Narrative 05/18/2017 11:17 AM EST Procedure: ?Transthoracic Echocardiogram Patient: ?SEBASTIÁN Montiel ? (Age): 1970(47y) Med Rec#: ? [id number] ?Sex: ?F ? Site Loc: ? [facility] ?Ht / Wt: ??162(cm)/71(kg) Pt. Loc: ?Adult Floor ? BSA: ?1.76 Study Date: ?? 05/18/2017 ?Pt. Type: Inpatient Tape: ? Referring: Andrea Stewart Referring: CLAUDIA Reading: Marquis Reyes ([id number]) [employer] Anchor: Santy Mena Diagnosis: *ICD-10-PCS Other chest pain (R07.89) Rhythm: ? Bradycardia BP: ? 121/49 SUMMARY: 1. The left ventricle is moderately dilated. (ABRAHAN=6.7cm, ABRAHAN=5.2cm)There is normal global left ventricular systolic function. ??Ejection fraction is estimated to be 55%. ??There are no left ventricular segmental wall motion abnormalities. 2. Right ventricular chamber size, wall thickness, and systolic function are within normal limits. 3. The aortic valve appears bicuspid. ??The aortic valve leaflets are mildly thickened. 4. Severe (4+/4+) aortic valve regurgitation is present. ??There is flow reversal noted in the abdominal aorta Doppler signal. 5. The aortic root is normal in size. ??The ascending aorta is normal in size. 6. When compared with report dated 03/2012, the aortic insufficiency is now severe with ventricular dilation and decline in LV function. 7. See remainder of report for additional findings. Findings ? : Study Quality: ? Technically limited Left Ventricle: ? The left ventricle is moderately dilated. ?Left ventricular wall thickness is normal. ?There is normal global left ventricular systolic function. ??Ejection fraction is estimated to be 55%. ?There are no left ventricular segmental wall motion abnormalities. ?The left ventricular diastolic filling pattern is consistent with impaired LV relaxation. ?Doppler assessment is consistent with normal left sided filling pressure. Left Atrium: ? The left atrium is normal in size.35 ml/m2 Right Ventricle: ? Right ventricular chamber size, wall thickness, and systolic function are within normal limits. Right Atrium: ? The right atrium appears normal. Aortic Valve: ? The aortic valve appears bicuspid. ?The aortic valve leaflets are mildly thickened. ?There is no evidence of aortic valve stenosis. ?Severe (4+/4+) aortic valve regurgitation is present. ?There is flow reversal noted in the abdominal aorta Doppler signal. Mitral Valve: ? The mitral valve leaflets are mildly thickened. ?There is mild (1+/4+) mitral regurgitation present. Tricuspid Valve: ? The tricuspid valve appears normal in structure and function. ?There is mild (1+/4+) tricuspid regurgitation present. Pulmonic Valve: ? The pulmonic valve appears normal in structure and function. ?There is mild (1+/4+) pulmonic regurgitation present. Pericardium: ? The pericardium appears normal and there is no evidence of a pericardial effusion. Aorta: ? The aortic root is normal in size. ?The ascending aorta is normal in size. Pulmonary Artery: ? The main pulmonary artery appears normal. Venous: ? The inferior vena cava appears normal in size. ?There is a greater than 50% respiratory change in the inferior vena cava dimension. Misc: ? See remainder of report for additional findings. ?Two-dimensional echo, spectral Doppler and color Doppler performed. Chambers 2D ?Value ?Units (Range) ? IVSd (2D) ? 1 ?cm ? LVPWd (2D) ?1.1 ?cm ? IVS:LVPW ratio (2D) 0.9 ?ratio ? RWT (2D) ?0.3 ?ratio ? RWT PW (2D) ? 0.3 ?ratio ? LVIDd (2D) ?6.7 ?cm ? LVIDs (2D) ?5.3 ?cm ? LVIDd (2D) index ?3.8 ?cm/m2 ? LVIDs (2D) index ?3 ?cm/m2 ? LV FS (2D) ?22 ? % ? EF Teichholz (2D) ?? 43 ? % ? Ao root diameter (2D3.2 ?cm (2.1 - 3.6) ? Ascending Ao ?2.5 ?cm (2 - 3.5) ? Volumes/Mass ?Value ?Units (Range) ? LA ESV BP (A/L) inde34.9 ? ml/m2 ? LV ESV SP 4CH (MOD) 77.7 ? ml ? LV ESV SP 2CH (MOD) 107.5 ?ml ? LV EDV BP ? 191.3 ?ml ? LV ESV BP ? 96.1 ? ml ? LV EDV BP index ? 108.7 ?ml/m2 ? LV ESV BP index ? 54.6 ? ml/m2 ? BP EF (MOD) ? 50 ? % ? LV mass (2D) ?319.2 ?g ? LV mass (2D) index ??181.4 ?g/m2 ? Diastolic/Systolic Function ?Value ?Units (Range) ? MV E-wave Vmax ?0.7 ?m/sec ? MV deceleration ydcd122.9 ?msec ? MV A-wave Vmax ?0.8 ?m/sec ? MV E:A ratio ?0.9 ?ratio ? LV septal e' Vmax ?? 0.1 ?m/sec ? LV lateral e' Vmax ??0.1 ?m/sec ? LV average e' Vmax ??0.1 ?m/sec ? LV E:e' septal ratio9.8 ?ratio ? LV E:e' lateral rati13.8 ? ratio ? LV average E:e' rati11.5 ? ratio ? Wall Motion: Segment Name ?Rest ? Base-Anteroseptal ?? Normal ? Base-Anterior ? Normal ? Base-Anterolateral ??Normal ? Base-Posterolateral Normal ? Base-Inferior ? Normal ? Base-Inferoseptal ?? Normal ? Mid-Anteroseptal ?Normal ? Mid-Anterior ?Normal ? Mid-Anterolateral ?? Normal ? Mid-Posterolateral ??Normal ? Mid-Inferior ?Normal ? Mid-Inferoseptal ?Normal ? [place]-Septal ? Normal ? [place]-Anterior ? Normal ? [place]-Lateral ?Normal ? [place]-Inferior ? Normal ? [place]-Tip ?Normal ? This report has been electronically signed by: Marquis Reyes M.D. ? 05/18/2017 11:16:56 Images reviewed and interpretation verified [facility] Cardiac Ultrasound Laboratory Procedure Note Marquis Reyes MD - 05/18/2017 Procedure: Transthoracic Echocardiogram Patient: SEBASTIÁN Montiel (Age): 1970(47y) Med Rec#: [id number] Sex: F [place] [facility] [facility] Ht / Wt: 162(cm)/71(kg) Pt. Loc: Adult Floor BSA: 1.76 Study Date: 05/18/2017 Pt. Type: Inpatient Tape: Referring: Andrea Stewart Referring: CLAUDIA Reading: Marquis Reyes ([id number]) [employer] Anchor: Santy Mena Diagnosis: *ICD-10-PCS Other chest pain (R07.89) Rhythm: Bradycardia BP: 121/49 SUMMARY: 1. The left ventricle is moderately dilated. (ABRAHAN=6.7cm, ABRAHAN=5.2cm)There is normal global left ventricular systolic function. Ejection fraction is estimated to be 55%. There are no left ventricular segmental wall motion abnormalities. 2. Right ventricular chamber size, wall thickness, and systolic function are within normal limits. 3. The aortic valve appears bicuspid. The aortic valve leaflets are mildly thickened. 4. Severe (4+/4+) aortic valve regurgitation is present. There is flow reversal noted in the abdominal aorta Doppler signal. 5. The aortic root is normal in size. The ascending aorta is normal in size. 6. When compared with report dated 03/2012, the aortic insufficiency is now severe with ventricular dilation and decline in LV function. 7. See remainder of report for additional findings. Findings : Study Quality: Technically limited Left Ventricle: The left ventricle is moderately dilated. Left ventricular wall thickness is normal. There is normal global left ventricular systolic function. Ejection fraction is estimated to be 55%. There are no left ventricular segmental wall motion abnormalities. The left ventricular diastolic filling pattern is consistent with impaired LV relaxation. Doppler assessment is consistent with normal left sided filling pressure. Left Atrium: The left atrium is normal in size.35 ml/m2 Right Ventricle: Right ventricular chamber size, wall thickness, and systolic function are within normal limits. Right Atrium: The right atrium appears normal. Aortic Valve: The aortic valve appears bicuspid. The aortic valve leaflets are mildly thickened. There is no evidence of aortic valve stenosis. Severe (4+/4+) aortic valve regurgitation is present. There is flow reversal noted in the abdominal aorta Doppler signal. Mitral Valve: The mitral valve leaflets are mildly thickened. There is mild (1+/4+) mitral regurgitation present. Tricuspid Valve: The tricuspid valve appears normal in structure and function. There is mild (1+/4+) tricuspid regurgitation present. Pulmonic Valve: The pulmonic valve appears normal in structure and function. There is mild (1+/4+) pulmonic regurgitation present. Pericardium: The pericardium appears normal and there is no evidence of a pericardial effusion. Aorta: The aortic root is normal in size. The ascending aorta is normal in size. Pulmonary Artery: The main pulmonary artery appears normal. Venous: The inferior vena cava appears normal in size. There is a greater than 50% respiratory change in the inferior vena cava dimension. Misc: See remainder of report for additional findings. Two-dimensional echo, spectral Doppler and color Doppler performed. Chambers 2D Value Units (Range) IVSd (2D) 1 cm LVPWd (2D) 1.1 cm IVS:LVPW ratio (2D) 0.9 ratio RWT (2D) 0.3 ratio RWT PW (2D) 0.3 ratio LVIDd (2D) 6.7 cm LVIDs (2D) 5.3 cm LVIDd (2D) index 3.8 cm/m2 LVIDs (2D) index 3 cm/m2 LV FS (2D) 22 % EF Teichholz (2D) 43 % Ao root diameter (2D3.2 cm (2.1 - 3.6) Ascending Ao 2.5 cm (2 - 3.5) Volumes/Mass Value Units (Range) LA ESV BP (A/L) inde34.9 ml/m2 LV ESV SP 4CH (MOD) 77.7 ml LV ESV SP 2CH (MOD) 107.5 ml LV EDV BP 191.3 ml LV ESV BP 96.1 ml LV EDV BP index 108.7 ml/m2 LV ESV BP index 54.6 ml/m2 BP EF (MOD) 50 % LV mass (2D) 319.2 g LV mass (2D) index 181.4 g/m2 Diastolic/Systolic Function Value Units (Range) MV E-wave Vmax 0.7 m/sec MV deceleration xgtr794.9 msec MV A-wave Vmax 0.8 m/sec MV E:A ratio 0.9 ratio LV septal e' Vmax 0.1 m/sec LV lateral e' Vmax 0.1 m/sec LV average e' Vmax 0.1 m/sec LV E:e' septal ratio9.8 ratio LV E:e' lateral rati13.8 ratio LV average E:e' rati11.5 ratio Wall Motion: Segment Name Rest Base-Anteroseptal Normal Base-Anterior Normal Base-Anterolateral Normal Base-Posterolateral Normal Base-Inferior Normal Base-Inferoseptal Normal Mid-Anteroseptal Normal Mid-Anterior Normal Mid-Anterolateral Normal Mid-Posterolateral Normal Mid-Inferior Normal Mid-Inferoseptal Normal [place]-Septal Normal [place]-Anterior Normal [place]-Lateral Normal [place]-Inferior Normal [place]-Tip Normal This report has been electronically signed by: Marquis Reyes M.D. 05/18/2017 11:16:56 Images reviewed and interpretation verified [facility] Cardiac Ultrasound Laboratory Andrea Stewart MD ECHO ORDERABLES * XR Chest PA & Lateral (Generic) (05/18/2017 9:08 AM EST) Anatomical Region Laterality Modality Chest N/A Digital Radiogra phy Impressions 05/18/2017 10:47 AM EST No acute cardiopulmonary process. Preliminary report signed by: MANUEL MARTINEZ at 05/18/2017 9:39 AM I have personally reviewed the image(s) and the residents interpretation and agree with the findings, Serge Paris at 05/18/2017 10:47 AM Narrative 05/18/2017 10:47 AM EST EXAMINATION: XR CHEST PA AND LATERAL (GENERIC) CLINICAL HISTORY: Chest pain TECHNIQUE: Standing PA and lateral chest COMPARISON: Chest radiograph from 05/17/2017 FINDINGS: The lungs are clear. No pleural effusion or pneumothorax. The cardiomediastinal silhouette is within normal limits. No acute osseous abnormality. Procedure Note Serge Paris MD - 05/18/2017 EXAMINATION: XR CHEST PA AND LATERAL (GENERIC) CLINICAL HISTORY: Chest pain TECHNIQUE: Standing PA and lateral chest COMPARISON: Chest radiograph from 05/17/2017 FINDINGS: The lungs are clear. No pleural effusion or pneumothorax. Thecardiomediastinal silhouette is within normal limits. No acute osseous abnormality. IMPRESSION No acute cardiopulmonary process. Preliminary report signed by: MANUEL MARTINEZ at 05/18/2017 9:39 AM I have personally reviewed the image(s) and the residents interpretationand agree with the findings, Serge Paris at 05/18/2017 10:47 AM Andrea Stewart MD IMG DX ORDERABLES * Differential, Automated (05/18/2017 6:59 AM EST) Neutrophils % 58.2 % [facility] Neutr Abs (ANC) 2.72 1.70 - 6.10 x10(3)/[facility] Lymphocytes % 26.3 % [facility] Lymphocytes Abs 1.2 0.9 - 3.2 x10(3)/[facility] Monocytes % 10.0 % [facility] Monocyte Abs 0.5 0.3 - 0.9 x10(3)/[facility] Eosinophils % 4.7 % [facility] Eosinophils Abs 0.2 0.0 - 0.4 x10(3)/[facility] Basophils % 0.6 % [facility] Basophils Abs 0.0 0.0 - 0.1 x10(3)/[facility] Immature Gran % 0.20 % [facility] Comment: Immature granulocytes(IG's)percentage and absolute count will include metamyelocytes, myelocytes, and promyelocytes. Blood smears from CBCs yielding IG's will be scanned manually for concordance. If this scan disagrees with the automated IG or if promyelocytes are noted, a manual differential will be performed. [place] Gran Abs 0.01 0.00 - 0.04 x10(3)/[facility] Blood specimen (specimen) 05/18/2017 6:59 AM EST 05/18/2017 7:08 AM EST Narrative Resulting Agency Comment Spec In Lab Andrea Stewart MD HEMATOLOGY ORDERABLE S [facility] [place] [address] * (ABNORMAL) Hemogram (05/18/2017 6:59 AM EST) WBC 4.7 4.0 - 9.5 x10(3)/[facility] RBC 3.85(L) 4.00 - 5.21 x10(6)/[facility] Hemoglobin 12.5 11.7 - 15.5 gm/dL [facility] Hematocrit 35.6(L) 35.7 - 45.8 % [facility] MCV 92.5 82.6 - 94.4 fL [facility] MCH 32.5(H) 27.1 - 32.0 pg [facility] MCHC 35.1(H) 31.7 - 35.0 gm/dL [facility] Platelets 166 145 - 357 x10(3)/[facility] RDWSD 43.1 37.0 - 46.0 fL [facility] RDWCV 12.7 11.5 - 14.1 % [facility] MPV 10.4 7.6 - 12.9 fL [facility] nRBC % Auto 0.0 % [facility] nRBC Abs Auto 0.000 0.000 - 0.000 x10(3)/mcL [facility] Blood specimen (specimen) 05/18/2017 6:59 AM EST 05/18/2017 7:08 AM EST Narrative Resulting Agency Comment Spec In Lab Andrea Stewart MD HEMATOLOGY ORDERABLE S [facility] [place] [address] * BMP w/fasting Glucose (05/18/2017 6:59 AM EST) Glucose Fasting 94 65 - 99 mg/dL [facility] Comment: ?Fasting* Glucose Interpretive Criteria Normal ?65-99 mg/dL Impaired Fasting glucose ?100-125 mg/dL Consistent with Diabetes Mellitus ? >or= 126 mg/dL *Fasting is defined as no caloric intake for at least 8 hours In the absence of unequivocal hyperglycemia a plasma glucose value of >or= 126 mg/dL should be repeated on a subsequent day. Diagnosis and Classification of Diabetes Mellitus, Position Statement from the [place] [employer]. ??Diabetes Care, Volume 33, Supplement 1, Apr 2009 BUN 16 8 - 18 mg/dL [facility] Creatinine 0.93 0.70 - 1.20 mg/dL [facility] Sodium 142 135 - 145 mmol/L [facility] Potassium 4.1 3.5 - 5.0 mmol/L [facility] Comment: Please note: ??Patients with WBC >100,000 may have falsely elevated Potassium levels. ??For accurate Potassium quantification in these patients send serum separator tube (gold top) for subsequent determinations. ??Contact the Clinical Chemistry Laboratory if there are any questions. Chloride 104 98 - 107 mmol/L [facility] CO2 28 22 - 31 mmol/L [facility] Anion Gap 10 5 - 15 mmol/L [facility] Calcium 8.9 8.5 - 10.5 mg/dL [facility] Estimated GFR >60 >=60 [facility] Comment: The reported eGFR should be multiplied by 1.2 for patients. The MDRD is not an appropriate measure of renal function for patients with body mass extremes or in patients with acute kidney failure. http://[employer]/DHnkdep [email or web address] [email or web address] Blood specimen (specimen) 05/18/2017 6:59 AM EST 05/18/2017 7:08 AM EST Narrative Resulting Agency Comment Spec In Lab Andrea Stewart MD CHEMISTRY ORDERABLES Performing Organization Address [facility] Co de Phone Number [facility] [place] [address] * (ABNORMAL) APTT (05/18/2017 6:59 AM EST) PTT 52(H) 25 - 35 sec [facility] Comment: The recommended therapeutic range for full dose, unfractionated heparin at [facility] is 80 ? 114 seconds. The use of the anti-Xa (heparin) level rather than the PTT is recommended for monitoring anticoagulation intensity in critically ill patients receiving unfractionated heparin by continuous IV infusion. Blood specimen (specimen) 05/18/2017 6:59 AM EST 05/18/2017 7:08 AM EST Narrative Resulting Agency Comment Spec In Lab Andrea Stewart MD HEMATOLOGY ORDERABLE S Performing Organization Address [facility] Co de Phone Number [facility] [place] [address] * (ABNORMAL) Prothrombin Time (05/18/2017 6:59 AM EST) PT 30.7(H) 11.8 - 14.0 sec [facility] INR 2.9(H) 0.9 - 1.1 [facility] Comment: An INR <2.0 indicates [...] depending on clinical circumstances. Blood specimen (specimen) 05/18/2017 6:59 AM EST 05/18/2017 7:08 AM EST Narrative Resulting Agency Comment Spec In Lab Andrea Stewart MD HEMATOLOGY ORDERABLE S [facility] [place] [address] * Cardiac Enzymes (LEB/CGP) (05/18/2017 6:59 AM EST) Troponin-T <0.01 0.00 - 0.00 ng/mL [facility] Comment: The 99th percentile for Troponin T is less than 0.01 ng/mL, any detectable cTnT concentration using this assay should be considered elevated. According to the third universal definition of myocardial infarction the following criteria with a clinical presentation consistent with acute myocardial ischemia meets the diagnosis for a myocardial infarction (CT). Detection of a rise and/or fall of cTnT, with at least one value greater than the 99th percentile (> or = 0.01) and with at least one of the following ?? Symptoms of ischemia ?? New or presumed new significant XI-habdpbf-M wave (ST-T) changes or new left bundle [...] additional sample may be indicated. Reference: Third Guffey Definition of Myocardial Infarction. Journal of the [place] [employer] 2012;60:1581-98 CK, Total 72 0 - 160 unit/L [facility] Blood specimen (specimen) 05/18/2017 6:59 AM EST 05/18/2017 7:11 AM EST Narrative Resulting Agency Comment Spec In Lab Andrea Stewart MD CHEMISTRY ORDERABLES Performing Organization Address [facility]/ZIP Co de Phone Number [facility] [place] [address] * EKG 12 Lead (05/18/2017 1:33 AM EST) Ventricular rate 60 BPM MUSE SYSTEM Atrial Rate 60 BPM MUSE SYSTEM P-R Interval 164 ms MUSE SYSTEM QRS Duration 106 ms MUSE SYSTEM Q-T Interval 452 ms MUSE SYSTEM QTC Calculated (Bezet) 452 ms MUSE SYSTEM Calculated P [place] 4 degrees MUSE SYSTEM Calculated R [place] 8 degrees MUSE SYSTEM Calculated T [place] -8 degrees MUSE SYSTEM INTERPRETATION Normal sinus rhythm T wave abnormality, consider anterior ischemia Abnormal ECG When compared with ECG of 18-MAY-2017 00:23, No significant change was found Confirmed by MD YESSI, BIENVENIDO ([id number]) on 05/18/2017 1:47:48 PM MUSE SYSTEM 05/18/2017 1:33 AM EST 05/18/2017 1:47 PM EST Andrea Stewart MD ECG ORDERABLES Performing Organization Address City/[facility]/ZIP Co de Phone Number MUSE SYSTEM * BMP w/fasting Glucose (05/18/2017 12:36 AM EST) Glucose Fasting 88 65 - 99 mg/dL [facility] Comment: ?Fasting* Glucose Interpretive Criteria Normal ?65-99 mg/dL Impaired Fasting glucose ?100-125 mg/dL Consistent with Diabetes Mellitus ? >or= 126 mg/dL *Fasting is defined as no caloric intake for at least 8 hours In the absence of unequivocal hyperglycemia a plasma glucose value of >or= 126 mg/dL should be repeated on a subsequent day. Diagnosis and Classification of Diabetes Mellitus, Position Statement from the [place] [employer]. ??Diabetes Care, Volume 33, Supplement 1, Apr 2009 BUN 12 8 - 18 mg/dL [facility] Creatinine 0.80 0.70 - 1.20 mg/dL [facility] Sodium 144 135 - 145 mmol/L [facility] Potassium 3.9 3.5 - 5.0 mmol/L [facility] Comment: Please note: ??Patients with WBC >100,000 may have falsely elevated Potassium levels. ??For accurate Potassium quantification in these patients send serum separator tube (gold top) for subsequent determinations. ??Contact the Clinical Chemistry Laboratory if there are any questions. Chloride 105 98 - 107 mmol/L [facility] CO2 27 22 - 31 mmol/L [facility] Anion Gap 12 5 - 15 mmol/L [facility] Calcium 9.2 8.5 - 10.5 mg/dL [facility] Estimated GFR >60 >=60 [facility] Comment: The reported eGFR should be multiplied by 1.2 for patients. The MDRD is not an appropriate measure of renal function for patients with body mass extremes or in patients with acute kidney failure. http://[email or web address]/DHnkdep http://[employer]/DHMCnkf Blood specimen (specimen) 05/18/2017 12:36 AM EST 05/18/2017 1:00 AM EST Narrative Resulting Agency Comment Spec In Lab Andrea Stewart MD CHEMISTRY ORDERABLES [facility] [place] [address] * Differential, Automated (05/18/2017 12:36 AM EST) Neutrophils % 51.9 % [facility] Neutr Abs (ANC) 2.35 1.70 - 6.10 x10(3)/[facility] Lymphocytes % 33.3 % [facility] Lymphocytes Abs 1.5 0.9 - 3.2 x10(3)/[facility] Monocytes % 9.7 % [facility] Monocyte Abs 0.4 0.3 - 0.9 x10(3)/[facility] Eosinophils % 4.2 % [facility] Eosinophils Abs 0.2 0.0 - 0.4 x10(3)/[facility] Basophils % 0.7 % [facility] Basophils Abs 0.0 0.0 - 0.1 x10(3)/[facility] Immature Gran % 0.20 % [facility] Comment: Immature granulocytes(IG's)percentage and absolute count will include metamyelocytes, myelocytes, and promyelocytes. Blood smears from CBCs yielding IG's will be scanned manually for concordance. If this scan disagrees with the automated IG or if promyelocytes are noted, a manual differential will be performed. [place] Gran Abs 0.01 0.00 - 0.04 x10(3)/[facility] Blood specimen (specimen) 05/18/2017 12:36 AM EST 05/18/2017 1:00 AM EST Narrative Resulting Agency Comment Spec In Lab Andrea Stewart MD HEMATOLOGY ORDERABLE S [facility] [place] [address] * (ABNORMAL) Hemogram (05/18/2017 12:36 AM EST) WBC 4.5 4.0 - 9.5 x10(3)/[facility] RBC 3.96(L) 4.00 - 5.21 x10(6)/[facility] Hemoglobin 12.8 11.7 - 15.5 gm/dL [facility] Hematocrit 36.5 35.7 - 45.8 % [facility] MCV 92.2 82.6 - 94.4 fL [facility] MCH 32.3(H) 27.1 - 32.0 pg [facility] MCHC 35.1(H) 31.7 - 35.0 gm/dL [facility] Platelets 175 145 - 357 x10(3)/[facility] RDWSD 42.6 37.0 - 46.0 [facility] RDWCV 12.6 11.5 - 14.1 % [facility] MPV 10.6 7.6 - 12.9 [facility] nRBC % Auto 0.0 % [facility] nRBC Abs Auto 0.000 0.000 - 0.000 x10(3)/[facility] Blood specimen (specimen) 05/18/2017 12:36 AM EST 05/18/2017 1:00 AM EST Narrative Resulting Agency Comment Spec In Lab Andrea Stewart MD HEMATOLOGY ORDERABLE S Performing Organization Address City/[facility]/ZIP Co de Phone Number [facility] [place] [address] * Triglyceride (05/18/2017 12:36 AM EST) Triglycerides 72 mg/dL [facility] Comment: Average Risk/Lower Risk: <150 mg/dL Borderline High Risk: 150-199 mg/dL High Risk: 200-499 mg/dL Very High Risk: >tm=456 mg/dL Blood specimen (specimen) 05/18/2017 12:36 AM EST 05/18/2017 1:00 AM EST Narrative Resulting Agency Comment Spec In Lab Andrea Stewart MD CHEMISTRY ORDERABLES [facility] [place] [address] * HDL/Cholesterol Profile (05/18/2017 12:36 AM EST) Chol, Total 197 mg/dL [facility] Comment: Lower Risk: <200 mg/dL Average Risk: 200-239 mg/dL Higher Risk: >bj=107 mg/dL HDL 45 mg/dL [facility] Comment: Males: ?? Higher Risk: <40 mg/dL Females: ?? HIgher Risk: <50 mg/dL Chol/HDL Ratio 4.4 ratio [facility] Chol/HDL Interpretation See Note [facility] Comment: Lipid management should be guided by a patient? s ASCVD risk, goals and preferences. ACC/AHA Guidelines recommend high intensity statin if clinical ASCVD or LDL greater than or equal to 190 mg/dL. http://Subblimeurl.com/JRQ-KTA-Jtkwrxopz Measure LDL if Total Cholesterol minus HDL Cholesterol is greater than 220 mg/dL. Adults aged 40-75 with LDL 70-189 mg/dL should have their 10 year ASCVD risk estimated with the ACC/AHA ASCVD risk web ui designer http://tools.acc.org/CLKWZ-Jtwf-Sciuqaenh/ Statin should be discussed if risk greater than or equal to 7.5% in non-diabetics. With diabetes, moderate intensity statin is recommended if risk less than 7.5%, high intensity if risk greater than or equal to 7.5%. Annual lipid monitoring on statins is not necessary. Lifestyle modification is a critical component of ASCVD risk reduction. Blood specimen (specimen) 05/18/2017 12:36 AM EST 05/18/2017 1:00 AM EST Narrative Resulting Agency Comment Spec In Lab Andrea Stewart MD CHEMISTRY ORDERABLES [facility] [place] [address] * LDL Cholesterol, Direct (05/18/2017 12:36 AM EST) LDL Chol Direct 145 mg/dL [facility] Comment: Lowest Risk: <100 mg/dL Lower Risk: 100-129 mg/dL Borderline High Risk: 130-159 mg/dL High Risk: 160-189 mg/dL Very High Risk: >tp=647 mg/dL Blood specimen (specimen) 05/18/2017 12:36 AM EST 05/18/2017 1:00 AM EST Narrative Resulting Agency Comment Spec In Lab Andrea Stewart MD CHEMISTRY ORDERABLES [facility] [place] [address] * Hemoglobin A1c (05/18/2017 12:36 AM EST) Hemoglobin A1C 5.0 4.3 - 5.6 % [facility] Comment: Reference Range: 4.3 - 5.6% 5.7 - 6.4% - Increased Risk of Developing Diabetes Mellitus >=6.5% - Consistent with diagnosis of Diabetes Mellitus In the absence of hyperglycemia (i.e. plasma glucose > 200 mg/dL) or classic symptoms of hyperglycemia a repeat measurement of HbA1c should be performed on a separate sample to confirm the diagnosis. Diagnosis and Classification of Diabetes Mellitus, Diabetes Care 2013; 36: Suppl. 1, S67-74 Est Avg Gluc 97 mg/dL [facility] Comment: eAG equivalents for HbA1c percentages: HbA1c(%) ?eAG(mg/dL) 6.0 ?126 6.5 ?140 7.0 ?154 7.5 ?169 8.0 ?183 8.5 ?197 9.0 ?212 9.5 ?226 10.0 ? 240 Limitations: The eAG calculation has not been validated on women, individuals below 18 years old and above 70 years old, and individuals with hemoglobinopathies. Additional resources are available on the ADA website. Fox WORLEY, Yang J, Natasha R, et al. ??Translating the A1C assay into estimated average glucose values. ??Diabetes Care 2008:31(8):4808-0457. Blood specimen (specimen) 05/18/2017 12:36 AM EST 05/18/2017 1:00 AM EST Narrative Resulting Agency Comment Spec In Lab Andrea Stewart MD CHEMISTRY ORDERABLES [facility] [place] [address] * Cardiac Enzymes (LEB/CGP) (05/18/2017 12:36 AM EST) Troponin-T <0.01 0.00 - 0.00 ng/mL [facility] Comment: The 99th percentile for Troponin T is less than 0.01 ng/mL, any detectable cTnT concentration using this assay should be considered elevated. According to the third universal definition of myocardial infarction the following criteria with a clinical presentation consistent with acute myocardial ischemia meets the diagnosis for a myocardial infarction (CT). Detection of a rise and/or fall of cTnT, with at least one value greater than the 99th percentile (> or = 0.01) and with at least one of the following ?? Symptoms of ischemia ?? New or presumed new significant JP-yuxuwfj-X wave (ST-T) changes or new left bundle [...] additional sample may be indicated. Reference: Third Guffey Definition of Myocardial Infarction. Journal of the [place] College [employer] 2012;60:1581-98 CK, Total 76 0 - 160 unit/L [facility] Blood specimen (specimen) 05/18/2017 12:36 AM EST 05/18/2017 1:00 AM EST Narrative Resulting Agency Comment Spec In Lab Andrea Stewart MD CHEMISTRY ORDERABLES Performing Organization Address City/[facility]/ZIP Co de Phone Number [facility] [place] [address] * Lipid Panel (05/18/2017 12:36 AM EST) Chol, Total 197 mg/dL [facility] Comment: Lower Risk: <200 mg/dL Average Risk: 200-239 mg/dL Higher Risk: >nw=574 mg/dL Triglycerides 72 mg/dL [facility] Comment: Average Risk/Lower Risk: <150 mg/dL Borderline High Risk: 150-199 mg/dL High Risk: 200-499 mg/dL Very High Risk: >aw=596 mg/dL HDL 45 mg/dL [facility] Comment: Males: ?? Higher Risk: <40 mg/dL Females: ?? HIgher Risk: <50 mg/dL LDL Cholesterol 138 mg/dL [facility] Comment: Lowest Risk: <100 mg/dL Lower Risk: 100-129 mg/dL Borderline High Risk: 130-159 mg/dL High Risk: 160-189 mg/dL Very High Risk: >yr=497 mg/dL Chol/HDL Ratio 4.4 ratio [facility] Lipid Interpretation See Note [facility] Comment: Lipid management should be guided by a patient? s ASCVD risk, goals and preferences. ACC/AHA Guidelines recommend high intensity statin if clinical ASCVD or LDL greater than or equal to 190 mg/dL. http://[email or web address]/UVA-CJD-Vsvsoupgj Adults aged 40-75 with LDL 70-189 mg/dL should have their 10 year ASCVD risk estimated with the ACC/AHA ASCVD risk web ui designer http://tools.acc.org/GBWDF-Aiqm-Ockaesaqe/ Statin should be discussed if risk greater [...] of ASCVD risk reduction. Blood specimen (specimen) 05/18/2017 12:36 AM EST 05/18/2017 1:00 AM EST Narrative Resulting Agency Comment Spec In Lab Andrea Stewart MD CHEMISTRY ORDERABLES Performing Organization Address [facility] Co de Phone Number [facility] [place] [address] * (ABNORMAL) APTT (05/18/2017 12:36 AM EST) PTT 55(H) 25 - 35 sec [facility] Comment: The recommended therapeutic range for full dose, unfractionated heparin at [facility] is 80 ? 114 seconds. The use of the anti-Xa (heparin) level rather than the PTT is recommended for monitoring anticoagulation intensity in critically ill patients receiving unfractionated heparin by continuous IV infusion. Blood specimen (specimen) 05/18/2017 12:36 AM EST 05/18/2017 1:00 AM EST Narrative Resulting Agency Comment Spec In Lab Andrea Stewart MD HEMATOLOGY ORDERABLE S Performing Organization Address [facility] de Phone Number [facility] [place] [address] * (ABNORMAL) Prothrombin Time (05/18/2017 12:36 AM EST) PT 29.9(H) 11.8 - 14.0 sec [facility] INR 2.8(H) 0.9 - 1.1 [facility] Comment: An INR <2.0 indicates [...] depending on clinical circumstances. Blood specimen (specimen) 05/18/2017 12:36 AM EST 05/18/2017 1:00 AM EST Narrative Resulting Agency Comment Spec In Lab Andrea Stewart MD HEMATOLOGY ORDERABLE S Performing Organization Address [facility] Co de Phone Number [facility] [place] [address] * Hepatic Function Panel (05/18/2017 12:36 AM EST) Total Protein 6.8 6.1 - 8.0 gm/dL [facility] Albumin 3.8 3.2 - 5.2 gm/dL [facility] AST 15 0 - 30 unit/L [facility] ALT 9 0 - 30 unit/L [facility] Alk Phos 77 40 - 104 unit/L [facility] Total Bilirubin 0.4 0.2 - 1.3 mg/dL [facility] Bili, Direct 0.1 0.0 - 0.3 mg/dL [facility] Blood specimen (specimen) 05/18/2017 12:36 AM EST 05/18/2017 1:00 AM EST Narrative Resulting Agency Comment Spec In Lab Andrea Stewart MD CHEMISTRY ORDERABLES Performing Organization Address City/[facility]/ZIP Co de Phone Number [facility] [place] [address] * (ABNORMAL) pro-Brain Natriuretic Peptide (05/18/2017 12:36 AM EST) Pathologist [facility] ProBNP 455(H) <=125 pg/mL [facility] Blood specimen (specimen) 05/18/2017 12:36 AM EST 05/18/2017 1:00 AM EST Narrative Resulting Agency Comment Spec In Lab Andrea Stewart MD CHEMISTRY ORDERABLES [facility] [place] [place] [address] * TSH (05/18/2017 12:36 AM EST) Pathologist [facility] TSH 3.47 0.27 - 4.20 mlU/ML [facility] Blood specimen (specimen) 05/18/2017 12:36 AM EST 05/18/2017 1:00 AM EST Narrative Resulting Agency Comment Spec In Lab Andrea Stewart MD CHEMISTRY ORDERABLES Performing Organization Address [facility] Co de Phone Number [facility] [place] [address] * Phosphorus (05/18/2017 12:36 AM EST) Phosphorus 3.7 2.5 - 4.5 mg/dL [facility] Blood specimen (specimen) 05/18/2017 12:36 AM EST 05/18/2017 1:00 AM EST Narrative Resulting Agency Comment Spec In Lab Andrea Stewart MD CHEMISTRY ORDERABLES Performing Organization Address [facility] Co de Phone Number [facility] [place] * Magnesium (05/18/2017 12:36 AM EST) Magnesium 0.73 0.69 - 1.07 mmol/L [facility] Blood specimen (specimen) 05/18/2017 12:36 AM EST 05/18/2017 1:00 AM EST Narrative Resulting Agency Comment Spec In Lab Andrea Stewart MD CHEMISTRY ORDERABLES Performing Organization Address [facility] Co de Phone Number [facility] [place] [address] * EKG 12 Lead (05/18/2017 12:23 AM EST) Ventricular rate 57 BPM MUSE SYSTEM Atrial Rate 57 BPM MUSE SYSTEM P-R Interval 168 ms MUSE SYSTEM QRS Duration 108 ms MUSE SYSTEM Q-T Interval 468 ms MUSE SYSTEM QTC Calculated (Bezet) 455 ms MUSE SYSTEM Calculated P [place] 27 degrees MUSE SYSTEM Calculated R [place] 6 degrees MUSE SYSTEM Calculated T [place] -14 degrees MUSE SYSTEM INTERPRETATION Sinus bradycardia anterior T wave inversion, consider ischemia Abnormal ECG When compared with ECG of 26-NOV-2005 11:10, T wave inversion now evident in Anterolateral leads Confirmed by MD WONG BRUCE ([id number]) on 05/18/2017 1:47:16 PM MUSE SYSTEM 05/18/2017 12:2 3 AM EST 05/18/2017 1:47 PM EST Andrea Stewart MD ECG ORDERABLES [employer] SYSTEM documented in this encounter Visit Diagnoses Diagnosis [address] Alegre with severe AI, SLE, and APLS admitted for conversion to heparin prior to AVR. Course c/b gross hematuria, CHARLES, cp, anxiety.- Primary Other chest pain Aortic insufficiency due to bicuspid aortic valve Gross hematuria S/P AVR Heart valve replaced by other means Chest pain-- normal cors by cath in 2004 and 2011 Chest pain, unspecified Hypertension Unspecified essential hypertension Systemic lupus erythematosus Antiphospholipid antibody----- use antiXa level to dose heparin. Primary hypercoagulable state JAN on CPAP Obstructive sleep apnea (adult) (pediatric) Hyperlipemia Other and unspecified hyperlipidemia Dilated cardiomyopathy--- noted in 2003, improved Other primary cardiomyopathies Depression and anxiety Depressive disorder, not elsewhere classified Gross hematuria--- while on heparin Gross hematuria S/P AVR Heart valve replaced by other means S/P AVR Heart valve replaced by other means Gross hematuria documented in this encounter Administered Medications Inactive Administered Medications - up to 3 most recent administrations Medication Order MAR Action Action Date Dose Rate Site acetaminophen (OFIRMEV) injection 1,000 mg 1,000 mg, Intravenous, at 400 mL/hr, Administer over 15 Minutes, EVERY 6 HOURS SCHEDULED, 4 doses, First dose on Thu05/25/17 at 1800, Last dose on Thu05/26/17 at 1200, Maximum dose of acetaminophen is 4000 mg from all sources in 24 hours., Routine, Is ketorolac (Toradol) IV contraindicated? No, Can this patient tolerate oral medications or suppositories? No Given 05/26/2017 12:00 PM EST 1,000 mg 400 mL/hr Given 05/26/2017 5:28 AM EST 1,000 mg 400 mL/hr Given 05/25/2017 11:25 PM EST 1,000 mg 400 mL/hr acetaminophen (TYLENOL) tablet 1,000 mg 1,000 mg, Oral, EVERY 6 HOURS SCHEDULED, First dose on Thu05/26/17 at 1800, Until Discontinued, For pain when taking by mouth , Routine Given 05/30/2017 11:44 AM EST 1,000 mg Given 05/30/2017 5:53 AM EST 1,000 mg Given 05/30/2017 12:11 AM EST 1,000 mg acetaminophen (TYLENOL) tablet 650 mg 650 mg, Oral, EVERY 4 HOURS PRN, Starting on Thu05/18/17 at 0013, Until Thu05/25/17 at 1502, Pain, Headaches, Maximum dose of acetaminophen is 4000 mg from all sources in 24 hours., Routine Given 05/23/2017 8:31 AM EST 650 mg Given 05/23/2017 12:09 AM EST 650 mg Given 05/22/2017 7:06 PM EST 650 mg albumin, human 5% intravenous solution 25 g 25 g, Intravenous, ONCE, 1 dose, On Thu05/25/17 at 1530, PRN as needed for volume replacement to maintain cardiac index greater than or equal to 2.0 L/min/M2, Recovery (Recovery-Hospital Unit), STAT Given 05/25/2017 4:36 PM EST 25 g aspirin chewable tablet 81 mg 81 mg, Oral, DAILY, First dose on Thu05/26/17 at 0900, Until Discontinued, Start on post-op day 1 in the AM., Routine Given 05/29/2017 8:46 AM EST 81 mg Given 05/28/2017 8:28 AM EST 81 mg Given 05/27/2017 8:50 AM EST 81 mg aspirin chewable tablet 81 mg 81 mg, Oral, DAILY, First dose on Thu05/30/17 at 0900, Until Discontinued, Routine Given 05/30/2017 8:11 AM EST 81 mg aspirin EC tablet 81 mg 81 mg, Oral, DAILY, First dose on Thu05/18/17 at 0900, Until Discontinued, Routine Given 05/24/2017 8:11 AM EST 81 mg Given 05/23/2017 8:26 AM EST 81 mg Given 05/22/2017 10:17 AM EST 81 mg atorvastatin (LIPITOR) tablet 80 mg 80 mg, Oral, EVERY EVENING, First dose on Thu05/18/17 at 1700, Until Discontinued, Routine Given 05/29/2017 4:35 PM EST 80 mg Given 05/28/2017 4:16 PM EST 80 mg Given 05/27/2017 5:13 PM EST 80 mg bisacodyl (DULCOLAX) suppository 10 mg 10 mg, Rectal, DAILY PRN, Starting on Yaritza 05/28/17 at 0000, Until 05/30/17 at 1644, Constipation, Starting post-op day 3., Routine Given 05/29/2017 8:52 AM EST 10 mg bismuth subsalicylate (PEPTO-BISMOL) oral suspension 30 mL 30 mL, Oral, EVERY 6 HOURS PRN, Starting on Thu05/22/17 at 0034, Until 05/25/17 at 1502, indigestion, Maximum dose: no more than 4.2 grams (240 mL) per day., Routine Given 05/25/2017 4:31 AM EST 30 mLs Given 05/24/2017 8:02 AM EST 30 mLs Given 05/23/2017 8:57 PM EST 30 mLs cefUROXime (ZINACEF) 750mg vial attach to sodium chloride 0.9% 100 mL Mini-Bag Plus 750 mg, Intravenous, EVERY 8 HOURS, 3 doses, First dose on Thu05/25/17 at 2200, Last dose on Thu05/26/17 at 1400, Administer over 30 Minutes, Attach to 100 mL sodium Chloride Mini-bag Plus. Give first dose at 8 hours after dose in operating room., Indication for (Active or Suspected): Prophylaxis New Bag 05/26/2017 3:30 PM EST 750 mg 200 mL/hr New Bag 05/26/2017 5:29 AM EST 750 mg 200 mL/hr New Bag 05/25/2017 9:15 PM EST 750 mg 200 mL/hr dextrose 50% IV syringe 25-50 mL 25-50 mL (12.5-25 g), Intravenous, EVERY 1 HOUR PRN, Starting on Thu05/27/17 at 1325, Until 05/30/17 at 1644, Low blood sugar, For BG 50-70: 120 mL Juice or Regular (not diet) soda OR 12.5 gram (25 mL) Dextrose 50% IV OR, if no IV access, 1 mg Glucagon IM. Recheck BG in 30 minutes. May repeat juice, dextrose or glucagon once per episode For BG less than 50: 240 mL Juice or Regular (not diet) soda OR 25 grams (50 mL) Dextrose 50% IV OR, if no IV access, 1 mg Glucagon IM. Recheck BG in 30 minutes. May repeat juice, dextrose, or glucagon once per episode. To avoid extravasation, push Dextrose 50% SLOWLY (3 mL over 1 minute) in a patent, running IV, preferably a central line. For persistent hypoglycemia, consider longer-acting treatment for the duration of the active insulin., Routine docusate sodium (COLACE) capsule 100 mg 100 mg, Oral, 2 TIMES DAILY, First dose on Thu05/18/17 at 0030, Until Discontinued, Routine Given 05/25/2017 9:01 AM EST 100 mg Given 05/24/2017 9:31 PM EST 100 mg Given 05/24/2017 8:11 AM EST 100 mg docusate sodium (COLACE) capsule 100 mg 100 mg, Oral, 2 TIMES DAILY, First dose on Thu05/27/17 at 2100, Until Discontinued, Routine Given 05/29/2017 8:45 AM EST 100 mg Given 05/28/2017 9:06 PM EST 100 mg Given 05/28/2017 8:28 AM EST 100 mg famotidine (PEPCID) tablet 20 mg 20 mg, Oral, DAILY, First dose on Thu05/18/17 at 0900, Until Discontinued, Routine Given 05/25/2017 9:01 AM EST 20 mg Given 05/24/2017 8:11 AM EST 20 mg Given 05/23/2017 8:26 AM EST 20 mg fentaNYL (PF) 50 mcg/mL 2mL syringe 25 mcg, Intravenous, EVERY 30 MIN PRN, Pain, sheath removal, Starting on Thu05/20/17 at 1010, 4 doses, Until Thu05/20/17 at 1154, May repeat once while in Cath Recovery Unit, Cath (Recovery-Hospital Unit) Given 05/20/2017 10:15 AM EST 12.5 mcg fentaNYL 50 mcg/mL infusion 0-100 mcg/hr (0-2 mL/hr), Intravenous, CONTINUOUS, Starting on Thu05/25/17 at 1530, Until Thu05/27/17 at 1325, Titrate to patient comfort, pain scale 1-3. Start at 25 mcg/hr, adjust by 25 mcg/hr every 15 minutes. Dose not to exceed 100 mcg/hour. Rate/Dose Verify 05/26/2017 12:00 AM EST 25 mcg/hr 0.5 mL/hr Rate/Dose Verify 05/25/2017 10:00 PM EST 25 mcg/hr 0.5 mL /hr Rate/Dose Verify 05/25/2017 8:00 PM EST 25 mcg/hr 0.5 mL/ hr fentaNYL bolus from bag 25 mcg 25 mcg, Intravenous, EVERY 10 MIN PRN, Starting on Thu05/25/17 at 1502, Until Thu05/25/17 at 2002, Pain, For breakthrough pain (pain scale greater than 3), while intubated, Maximum dose 300 mcg over one hour., Routine Bolus from Bag 05/25/2017 6:16 PM EST 25 mcg fentaNYL bolus from bag 25 mcg 25 mcg, Intravenous, EVERY 1 HOUR PRN, Starting on Thu05/25/17 at 1502, Until Thu05/26/17 at 0855, Pain, For breakthrough pain while extubated., For breakthrough pain while extubated., Routine Bolus from Bag 05/25/2017 10:28 PM EST 25 mcg fentaNYL Citrate (PF) 100 mcg/2 mL (50 mcg/mL) syringe Starting on Thu05/20/17 at 1011, 1 dose, Until Thu05/20/17 at 1415, MAICO MCCLELLAN: cabinet override furosemide (LASIX) injection 20 mg 20 mg, Intravenous, ONCE, 1 dose, On Thu05/19/17 at 0845, Routine Given 05/19/2017 8:32 AM EST 20 mg furosemide (LASIX) injection 20 mg 20 mg, Intravenous, 2 TIMES DAILY, First dose on Thu05/27/17 at 0900, Until Discontinued, Please hold AM dose (05/29) Given 05/29/2017 8:41 AM EST 20 mg Given 05/28/2017 4:16 PM EST 20 mg Given 05/28/2017 8:26 AM EST 20 mg glucagon (human recombinant) injection SolR 1 mg 1 mg, Intramuscular, EVERY 1 HOUR PRN, Starting on Thu05/27/17 at 1325, Until 05/30/17 at 1644, Low blood sugar, For BG 50-70: 120 mL Juice or Regular (not diet) soda OR 12.5 gram (25 mL) Dextrose 50% IV OR, if no IV access, 1 mg Glucagon IM. Recheck BG in 30 minutes. May repeat juice, dextrose or glucagon once per episode For BG less than 50: 240 mL Juice or Regular (not diet) soda OR 25 grams (50 mL) Dextrose 50% IV OR, if no IV access, 1 mg Glucagon IM. Recheck BG in 30 minutes. May repeat juice, dextrose, or glucagon once per episode. To avoid extravasation, push Dextrose 50% SLOWLY (3 mL over 1 minute) in a patent, running IV, preferably a central line. For persistent hypoglycemia, consider longer-acting treatment for the duration of the active insulin., Routine heparin (porcine) injection 0-8,000 Units 0-8,000 Units, Intravenous, BOLUS PER HEPARIN PROTOCOL, Starting on Thu05/19/17 at 1344, Until Thu05/24/17 at 1053, Per Protocol, START ADJUSTMENT SCHEDULE 6 HOURS AFTER STARTING INFUSION aPTT Between 60 - 79 seconds: Bolus 2,500 units aPTT Less than 60 seconds: Bolus 5,000 units Increase infusion and recheck aPTT in 6 hours. , Routine Given 05/22/2017 6:46 AM EST 2,500 Units heparin (porcine) injection 2,500-5,000 Units 2,500-5,000 Units, Intravenous, BOLUS PER HEPARIN PROTOCOL, Starting on Thu05/26/17 at 0823, Until 05/30/17 at 0629, Per Protocol, Adjust to dosing chart, Patient Weight 70-74 kg anti-Xa less than 0.1 units/mL - administer 5,000 unit heparin bolus anti-Xa 0.1-0.29 units/mL - administer 2,500 unit heparin bolus anti-Xa 0.3-0.7 units/mL - no bolus Repeat anti-Xa level 6 hours after initiating heparin, then 6 hours after each dose adjustment. When 2 consecutive anti-Xa results within target range of 0.3 - 0.7 units/mL, change anti-Xa monitoring to once every 24 hours with A.M. labs while on heparin. RN to order required anti-Xa level - Per Protocol Routine, Routine Given 05/29/2017 6:44 AM EST 2,500 Units heparin (porcine) injection 5,000 Units 5,000 Units (rounded from 4,998 Units = 70 Units/kg ? 71.4 kg), Intravenous, ONCE, 1 dose, On Thu05/19/17 at 1415, INITIAL LOADING DOSE Maximum loading dose 8,000 units, Routine Given 05/19/2017 2:26 PM EST 5,000 Units heparin 25,000 units in dextrose 5% 500 mL infusion 0-5,000 Units/hr (0-100 mL/hr), Intravenous, CONTINUOUS, Starting on Thu05/19/17 at 1415, Until Thu05/24/17 at 1053, Begin infusion at 1,050 units per hr (15 units/kg/hr). MAX INITIAL infusion rate is 1,750 units/hr Target aPTT = 80 - 114 seconds Start adjustment schedule 6 hours after starting infusion. If aPTT is: - Less than 60 seconds, administer PRN bolus and increase rate by 300 units per hr (4 units/kg/hr) - 60-79 seconds, administer PRN bolus AND increase rate by 150 units per hr (2 units/kg/hr) - 80-114 seconds, no change - 115-129 seconds, decrease rate by 50 units per hr (1 unit/kg/hr) - 130-145 seconds, stop infusion for 30 minutes then decrease rate by 150 units per hr (2 units/kg/hr) - Greater than 145 seconds, stop infusion for 60 minutes then decrease rate by 200 units per hour (3 units/kg/hr) Repeat aPTT 6 hours after initiating heparin. Then 6 hours after each dose adjustment. When 2 consecutive aPTT within target range of 80 - 114 seconds, change aPTT to once every 24 hours with A.M. labs while on heparin. RN to order required aPTT - Per Protocol, Routine, Indication: Other (document in comments field):, Comments: Antiphospholipid antibody New Bag 05/24/2017 7:59 AM EST 1,000 Units/hr 20 mL/hr Rate/Dose Change 05/24/2017 4:33 AM EST 1,000 Units/hr 20 mL/hr Rate/Dose Change 05/23/2017 10:07 PM EST 1,050 Units/hr 21 mL/hr heparin 25,000 units in dextrose 5% 500 mL infusion 500-7,000 Units/hr (10-140 mL/hr), Intravenous, CONTINUOUS, Starting on Thu05/24/17 at 1115, Until Thu05/25/17 at 1502, Patient Weight 70-74 kg Initial dose - 1,100 units/hr = 22 mL/hr anti-Xa less than 0.1 units/mL - increase heparin infusion by 300 units/hr = 6 mL/hr anti-Xa 0.1-0.29 units/mL - increase heparin infusion by 150 units/hr = 3 mL/hr anti-Xa 0.3-0.7 units/mL - no change anti-Xa 0.71-0.85 units/mL - decrease by 50 units/hr = 1 mL/hr anti-Xa 0.86-1.05 units/mL - stop infusion for 30 min then decrease by 150 units/hr = 3 mL/hr anti-Xa greater than 1.05 units/mL - stop infusion for 60 min then decrease by 200 units/hr = 4 mL/hr anti-Xa greater than 1.05 units/mL X 2 - call housekeeper home See Bolus dosing guidance for anti-Xa results less than 0.3 units/mL under PRN medications Repeat anti-Xa level 6 hours after initiating heparin, then 6 hours after each dose adjustment. When 2 consecutive anti-Xa results within target range of 0.3 - 0.7 units/mL, change anti-Xa monitoring to once every 24 hours with A.M. labs while on heparin. RN to order required anti-Xa level - Per Protocol Routine, Routine New Bag 05/25/2017 9:15 AM EST 900 Units/hr 18 mL/hr Rate/Dose Change 05/24/2017 6:25 PM EST 900 Units/hr 18 mL /hr New Bag 05/24/2017 2:41 PM EST 1,000 Units/hr 20 mL/hr heparin 25,000 units in dextrose 5% 500 mL infusion 500-7,000 Units/hr (10-140 mL/hr), Intravenous, CONTINUOUS, Starting on Tu05/26/17 at 0845, Until 05/30/17 at 0629, Patient Weight 70-74 kg Initial dose - 1,100 units/hr = 22 mL/hr anti-Xa less than 0.1 units/mL - increase heparin infusion by 300 units/hr = 6 mL/hr anti-Xa 0.1-0.29 units/mL - increase heparin infusion by 150 units/hr = 3 mL/hr anti-Xa 0.3-0.7 units/mL - no change anti-Xa 0.71-0.85 units/mL - decrease by 50 units/hr = 1 mL/hr anti-Xa 0.86-1.05 units/mL - stop infusion for 30 min then decrease by 150 units/hr = 3 mL/hr anti-Xa greater than 1.05 units/mL - stop infusion for 60 min then decrease by 200 units/hr = 4 mL/hr anti-Xa greater than 1.05 units/mL X 2 - call housekeeper home See Bolus dosing guidance for anti-Xa results less than 0.3 units/mL under PRN medications Repeat anti-Xa level 6 hours after initiating heparin, then 6 hours after each dose adjustment. When 2 consecutive anti-Xa results within target range of 0.3 - 0.7 units/mL, change anti-Xa monitoring to once every 24 hours with A.M. labs while on heparin. RN to order required anti-Xa level - Per Protocol Routine, Routine New Bag 05/30/2017 4:36 AM EST 1,250 Units/hr 25 mL/hr Rate/Dose Verify 05/29/2017 6:46 PM EST 1,250 Units/hr 25 mL/hr New Bag 05/29/2017 8:23 AM EST 1,250 Units/hr 25 mL/hr HYDROmorphone (DILAUDID) injection 0.2 mg 0.2 mg, Intravenous, ONCE, 1 dose, On Thu05/27/17 at 1015, Routine Given 05/27/2017 10:03 AM EST 0.2 mg HYDROmorphone (DILAUDID) tablet 2-4 mg 2-4 mg, Oral, EVERY 4 HOURS PRN, Starting on Thu05/26/17 at 0856, Until 05/30/17 at 1644, Pain, pain scale 1-5->give 2mg; pain scale 6-10->give 4mg, Routine Given 05/28/2017 11:53 PM EST 4 mg Given 05/28/2017 8:33 AM EST 2 mg Given 05/27/2017 9:19 PM EST 4 mg hydroxychloroquine (PLAQUENIL) tablet 200 mg 200 mg, Oral, 2 TIMES DAILY, First dose on Thu05/18/17 at 0030, Until Discontinued, Routine Given 05/25/2017 9:02 AM EST 200 mg Given 05/24/2017 9:31 PM EST 200 mg Given 05/24/2017 8:11 AM EST 200 mg hydroxychloroquine (PLAQUENIL) tablet 200 mg 200 mg, Oral, 2 TIMES DAILY, First dose (after last modification) on Thu05/26/17 at 0900, Until Discontinued, Routine Given 05/30/2017 8:11 AM EST 200 mg Given 05/29/2017 8:54 PM EST 200 mg Given 05/29/2017 9:57 AM EST 200 mg insulin lispro (humaLOG) VIAL injection 1-4 Units 1-4 Units, Subcutaneous, 3 TIMES DAILY BEFORE MEALS, First dose on Thu05/27/17 at 1630, Until Discontinued, CORRECTION BOLUS Sensitive to insulin lean patient or total daily dose of all insulin needed to achieve glycemic control less than 30 units BG 140 - 160 Give 1 unit BG 161 - 200 Give 2 units BG 201 - 240 Give 3 units BG greater than 240, give 4 units and recheck BG in 2 hours. If less than 240 after two hours, give no insulin and resume prior schedule. If BG remains greater than 240, repeat 4 units (no more than three times) & call for new basal insulin orders. DO NOT hold if NPO, unless specifically told to do so., Routine insulin regular human (HumuLIN;NovoLIN) 1unit/mL 150 Units in sodium chloride 0.9% 150 mL infusion 0.5-16 Units/hr (0.5-16 mL/hr), Intravenous, CHANGE BAG EVERY EVENING, First dose on Thu05/25/17 at 1530, Until Discontinued, Type 2 diabetes. Current blood glucose 180 - 239 Titration- aim for target range of 140 - 180 mg/dL. Check BG every hour unless otherwise indicated. [[ Initial bolus of 4 units, then begin continuous infusion at 3.5 units/hour. ]] If BG at the time the infusion is started outside of the CURRENT BLOOD GLUCOSE range above, contact MD for new starting rate/bolus order. When infusion is paused, turn it back on as soon as possible per protocol. If BG at the time the infusion is started is outside of the CURRENT BLOOD GLUCOSE range above, contact provider for new starting rate/bolus order. Current BG less than 80 - Stop insulin. If BG less than 70, treat per hypoglycemia protocol. Re-check BG in 30 minutes and as soon as BG is greater than 80, restart with rate 50% of previous rate. If infusion stopped after previous rate had been 0.5 unit/hour, recheck every hour and when BG greater than 100 and higher than last test restart at 0.5 unit/hour. IF INFUSION IS PAUSED, TURN IT BACK ON SOON POSSIBLE, PER PROTOCOL. Current BG 80 - 139 - If BG dropped 10 mg/dL or more since last test, decrease rate by 50% and re-check in 30 minutes. Otherwise, decrease rate by 0.5 units/hour. Current BG 140 - 180 - If BG dropped 50 mg/dL or more since last test, decrease rate by 1 unit/hour. Otherwise, maintain same rate. Current BG 181 - 220 - If BG is lower than last test, maintain same rate. Otherwise, increase rate by 0.5 units/hour. Current BG 221 - 250 - If BG dropped 30 mg/dL or more since last test, maintain same rate. Otherwise, increase rate by 1 unit/hour. Current BG greater than 250 - Increase rate by 1 unit/hour AND bolus with Regular insulin IV as per IV Bolus Scale. Re-check BG in 30 minutes. THE FIRST DOSE OF SC INSULIN OUGHT TO BE ADMINISTERED BEFORE DISCONTINUING THE INFUSION. AN OVERLAP OF 2-3 HOURS IS RECOMMENDED. Continue to monitor the BG hourly., Routine New Bag 05/26/2017 6:00 PM EST 0.5 Units/hr 0.5 mL/hr Rate/Dose Verify 05/26/2017 4:00 PM EST 0.5 Units/hr 0.5 m L/hr Rate/Dose Verify 05/26/2017 2:00 PM EST 0.5 Units/hr 0.5 m L/hr levothyroxine (SYNTHROID) tablet 25 mcg 25 mcg, Oral, DAILY, First dose on Thu05/18/17 at 0600, Until Discontinued Given 05/25/2017 5:53 AM EST 25 mcg Given 05/24/2017 5:27 AM EST 25 mcg Given 05/23/2017 5:44 AM EST 25 mcg levothyroxine (SYNTHROID) tablet 25 mcg 25 mcg, Oral, DAILY, First dose (after last modification) on Thu05/26/17 at 0600, Until Discontinued Given 05/30/2017 5:54 AM EST 25 mcg Given 05/29/2017 5:37 AM EST 25 mcg Given 05/28/2017 6:10 AM EST 25 mcg lisinopril (PRINIVIL;ZESTRIL) tablet 5 mg 5 mg, Oral, DAILY, First dose on Thu05/18/17 at 0900, Until Discontinued, Routine Given 05/24/2017 8:11 AM EST 5 mg Given 05/23/2017 8:26 AM EST 5 mg Given 05/22/2017 10:18 AM EST 5 mg LORazepam (ATIVAN) tablet 0.5 mg 0.5 mg, Oral, EVERY 6 HOURS PRN, Starting on Thu05/18/17 at 0013, Until Thu05/25/17 at 1502, Anxiety, Routine Given 05/25/2017 9:01 AM EST 0.5 mg Given 05/24/2017 9:32 PM EST 0.5 mg Given 05/22/2017 10:18 AM EST 0.5 mg LORazepam (ATIVAN) tablet 0.5 mg 0.5 mg, Oral, EVERY 8 HOURS PRN, Starting on Thu05/27/17 at 0656, Until 05/30/17 at 1644, Anxiety, Routine Given 05/27/2017 7:05 AM EST 0.5 mg magnesium hydroxide (MILK OF MAGNESIA) oral suspension 10 mL 10 mL, Oral, DAILY, First dose on Thu05/27/17 at 0900, Until Discontinued, Post-op day 2. Do not use with renal insufficiency., Routine Given 05/29/2017 8:4 6 AM EST 10 mLs Given 05/28/2017 9:00 AM EST 10 mLs Given 05/27/2017 8:49 AM EST 10 mLs magnesium hydroxide (MILK OF MAGNESIA) oral suspension 10 mL 10 mL, Oral, DAILY PRN, Starting on Thu05/27/17 at 1325, Until 05/30/17 at 1644, Constipation, Administer if needed per patient's routine or if no bowel movement within 48 hours to achieve: (1) One bowel movement every 48 hours, AND (2) Without straining. If multiple PRN bowel medications ordered, start with magnesium hydroxide, then bisacodyl. Multiple medications may be given concomitantly for constipation., Routine Given 05/28/2017 8:30 AM EST 10 mLs magnesium sulfate 1g in dextrose 5% 100mL 1 g, Intravenous, ONCE, 1 dose, On Thu05/18/17 at 0715, Administer over 60 Minutes New Bag 05/18/2017 12:34 PM EST 1 g 100 mL/hr magnesium sulfate 2 g in sterile water 50 mL 2 g, Intravenous, ONCE, 1 dose, On Thu05/27/17 at 1700, Administer over 120 Minutes New Bag 05/27/2017 5:13 PM EST 2 g 25 mL/hr meTOPROLOL (LOPRESSOR) tablet 12.5 mg 12.5 mg, Oral, EVERY 12 HOURS SCHEDULED (2 times per day), First dose on [facility] 05/26/17 at 0900, Until Discontinued, Routine Given 05/26/2017 9:27 AM EST 12.5 mg meTOPROLOL (LOPRESSOR) tablet 37.5 mg 37.5 mg, Oral, EVERY 8 HOURS SCHEDULED, First dose (after last modification) on Thu05/29/17 at 2200, Until Discontinued, Please hold for sbp <90, hr <60, Routine Given 05/30/2017 2:31 PM EST 37.5 mg Given 05/30/2017 5:53 AM EST 37.5 mg Given 05/29/2017 9:55 PM EST 37.5 mg meTOPROLOL tartrate (LOPRESSOR) tablet 25 mg 25 mg, Oral, EVERY 12 HOURS SCHEDULED (2 times per day), First dose (after last modification) on [facility] 05/26/17 at 2100, Until Discontinued, Routine Given 05/28/2017 8:29 AM EST 25 mg Given 05/27/2017 9:19 PM EST 25 mg Given 05/27/2017 8:50 AM EST 25 mg meTOPROLOL tartrate (LOPRESSOR) tablet 25 mg 25 mg, Oral, ONCE, 1 dose, On [facility] 05/28/17 at 1115, Please hold for sbp <90, hr <60, Routine Given 05/28/2017 11:36 AM EST 25 mg meTOPROLOL tartrate (LOPRESSOR) tablet 50 mg 50 mg, Oral, EVERY 12 HOURS SCHEDULED (2 times per day), First dose (after last modification) on [facility] 05/28/17 at 2100, Until Discontinued, Routine Given 05/29/2017 8:45 AM EST 50 mg meTOPROLOL tartrate (LOPRESSOR) tablet 50 mg 50 mg, Oral, EVERY 8 HOURS SCHEDULED, First dose (after last modification) on Thu05/29/17 at 1400, Until Discontinued, Please hold for sbp <90, hr <60, Routine Given 05/29/2017 1:38 PM EST 50 mg morphine 2 mg/mL injection syringe 1 mg 1 mg, Intravenous, EVERY 4 HOURS PRN, Starting on Thu05/18/17 at 0218, Until Thu05/25/17 at 1502, Pain, Routine Given 05/19/2017 1:25 PM EST 1 mg Given 05/19/2017 8:37 AM EST 1 mg Given 05/18/2017 2:40 AM EST 1 mg niCARdipine 0.2 mg/mL (standard Adult and Pedi greater than 20 kg) infusion 0-15 mg/hr (0-75 mL/hr), Intravenous, CONTINUOUS PRN, Starting on Thu05/25/17 at 1646, Until Thu05/27/17 at 1325, Hypertension, Titrate to SBP greater than 90 and less than 110 mmHg. Start at 5 mg/hour, titrate to maintain target SBP, adjust infusion rate by 2.5 mg/hour every 5 minutes to a maximum of 15 mg/hour., Routine Rate/Dose Verify 05/26/2017 6:00 AM EST 15 mg/hr 75 mL/hr New Bag 05/26/2017 4:27 AM EST 15 mg/hr 75 mL/hr Rate/Dose Verify 05/26/2017 4:00 AM EST 15 mg/hr 75 mL/h r nitroGLYcerin 50 mg in dextrose 5% 250 mL infusion 0-200 mcg/min (0-60 mL/hr), Intravenous, CONTINUOUS, Starting on Thu05/25/17 at 1530, Until Thu05/25/17 at 1920, For hypertension. Titrate to keep systolic blood pressure less than 120 mmHg. Initiate at 25 mcg/min. Adjust by 25 mcg/min every 5 minutes. Dose not to exceed 200 mcg/minute., Routine Rate/Dose Change 05/25/2017 4:20 PM EST 10 mcg/min 3 mL/hr New Bag 05/25/2017 4:15 PM EST 25 mcg/min 7.5 mL/hr ondansetron (ZOFRAN) injection 4 mg 4 mg, Intravenous, EVERY 8 HOURS PRN, Starting on Thu05/25/17 at 1502, Until Thu05/30/17 at 1644, Nausea Given 05/29/2017 2:39 PM EST 4 mg oxyCODONE (ROXICODONE) immediate release tablet 5-10 mg 5-10 mg, Oral, EVERY 4 HOURS PRN, Starting on Thu05/25/17 at 1502, Until Thu05/26/17 at 0856, Pain, - When tolerating oral medications. - Initial dose 5 mg. - If pain control not adequate in 60 minutes, give additional 5 mg., Routine Given 05/26/2017 5:34 AM EST 10 mg Given 05/26/2017 1:43 AM EST 10 mg pantoprazole (PROTONIX) injection 40 mg 40 mg, Intravenous, DAILY, First dose on Thu05/25/17 at 1600, Until Discontinued, Reconstitute with 10 mL of normal saline to a concentration of 4 mg/mL and infuse slowly over 2 minutes. , Routine Given 05/26/2017 9:24 AM EST 40 mg Given 05/25/2017 5:12 PM EST 40 mg pantoprazole (PROTONIX) tablet 40 mg 40 mg, Oral, DAILY, First dose on Thu05/25/17 at 1600, Until Discontinued, DO NOT CRUSH OR OPEN If unable to take PO, may give IV Given 05/30/2017 8:10 AM EST 40 mg Given 05/29/2017 8:45 AM EST 40 mg Given 05/28/2017 8:29 AM EST 40 mg potassium chloride (K-DUR/KLOR-CON) extended release tablet 10 mEq 10 mEq, Oral, ONCE, 1 dose, On Thu05/29/17 at 0915, Routine Given 05/29/2017 9:57 AM EST 10 mEq potassium chloride (K-DUR/KLOR-CON) extended release tablet 20 mEq 20 mEq, Oral, ONCE, 1 dose, On Thu05/30/17 at 0700, 20 mEq tablet may be dissolved in water for administration, Routine Given 05/30/2017 8:11 AM EST 20 mEq potassium chloride (K-DUR/KLOR-CON) extended release tablet 40 mEq 40 mEq, Oral, ONCE, 1 dose, On Thu05/18/17 at 0715, 20 mEq tablet may be dissolved in water for administration, Routine Given 05/18/2017 9:13 AM EST 40 mEq propofol (DIPRIVAN) infusion 0-50 mcg/kg/min ? 71.5 kg (0-21.45 mL/hr, rounded to 0-21.5 mL/hr), Intravenous, CONTINUOUS, Starting on Thu05/25/17 at 1530, Until Thu05/25/17 at 2002, Titrate to sedation level of RASS Goal (-) 1. Start at 10 mcg/kg/min, adjust rate by 5 mcg/kg/min every 3 minutes. Dose not to exceed 50 mcg/kg/minute. Discontinue upon extubation., Routine Rate/Dose Change 05/25/2017 6:16 PM EST 5 mcg/kg/min 2.1 mL/hr Rate/Dose Verify 05/25/2017 6:00 PM EST 20 mcg/kg/min 8.6 mL/hr New Bag 05/25/2017 5:54 PM EST 20 mcg/kg/min 8.6 mL/hr senna-docusate (PERICOLACE) 8.6-50 mg per tablet 2 tablet 2 tablet, Oral, DAILY, First dose on Thu05/26/17 at 2100, Until Discontinued, Post-op day 1, Routine Given 05/28/2017 9:07 PM EST 2 tablets Given 05/27/2017 9:19 PM EST 2 tablets Given 05/26/2017 8:11 PM EST 2 tablets sodium chloride 0.9 % flush 5 mL 5 mL, Intravenous, 2 TIMES DAILY, First dose on Thu05/18/17 at 0030, Until Discontinued, Routine Given 05/25/2017 9:04 AM EST 5 mLs Given 05/24/2017 9:31 PM EST 5 mLs Given 05/21/2017 8:31 PM EST 5 mLs sodium chloride 0.9 % flush 5 mL 5 mL, Intravenous, EVERY 12 HOURS, First dose on Thu05/18/17 at 0030, Until Discontinued, Routine Given 05/20/2017 12:30 PM EST 5 mLs Given 05/19/2017 12:30 PM EST 5 mLs Given 05/18/2017 9:16 AM EST 5 mLs sodium chloride 0.9 % flush 5 mL 5 mL, Intravenous, 2 TIMES DAILY, First dose on Thu05/27/17 at 1345, Until Discontinued, Routine Given 05/30/2017 9:00 AM EST 5 mLs Given 05/29/2017 8:54 PM EST 5 mLs Given 05/29/2017 9:00 AM EST 5 mLs sodium chloride 0.9% infusion 100 mL/hr, Intravenous, CONTINUOUS, Starting on Thu05/20/17 at 1030, Until Thu05/20/17 at 1329, Recovery (Recovery-Hospital Unit) New Bag 05/20/2017 10:30 AM EST 100 mL/hr 100 mL/hr sodium chloride 0.9% infusion 0-500 mL/hr, Intravenous, CONTINUOUS, Starting on Thu05/25/17 at 1530, Until Thu05/27/17 at 1325, Bolus 250 mL every 5 minutes as needed for volume replacement to maintain cardiac index greater than or equal to 2.0 L/min/M2. Maximum volume 2 L. Call housekeeper home for additional fluid orders: pager #[phone]. Rate/Dose Verify 05/25/2017 8:00 PM EST 100 mL/hr 100 mL/hr New Bag 05/25/2017 2:45 PM EST 100 mL/hr 100 mL/hr sodium chloride 0.9% infusion 10-30 mL/hr, Intravenous, DAILY PRN, Starting on Thu05/25/17 at 1502, Until Thu05/27/17 at 1325, Side port TKO rate, per [facility] nursing protocol. Rate/Dose Verify 05/26/2017 12:00 AM EST 30 mL/hr 30 mL/hr Rate/Dose Verify 05/25/2017 10:00 PM EST 30 mL/hr 30 mL/ hr Rate/Dose Verify 05/25/2017 8:00 PM EST 30 mL/hr 30 mL/h r sodium chloride 0.9% infusion 10-30 mL/hr, Intravenous, DAILY PRN, Starting on Thu05/25/17 at 1502, Until Thu05/27/17 at 1325, Side port TKO rate, per [facility] nrusing protocol. Rate/Dose Verify 05/27/2017 6:00 AM EST 10 mL/hr 10 mL/hr Rate/Dose Verify 05/27/2017 4:00 AM EST 10 mL/hr 10 mL/h r Rate/Dose Verify 05/27/2017 2:00 AM EST 10 mL/hr 10 mL/h r warfarin (COUMADIN) daily order reminder Oral, EVERY 24 HOURS, First dose on Thu05/27/17 at 1400, Until Discontinued, If the daily warfarin order has not been placed, contact the Provider to confirm that the order will be written, the dose is held or discontinued. warfarin (COUMADIN) tablet 2.5 mg 2.5 mg, Oral, ONCE, 1 dose, On 05/30/17 at 1700, Routine warfarin (COUMADIN) tablet 5 mg 5 mg, Oral, ONCE, 1 dose, On Tu05/26/17 at 1700, Routine Given 05/26/2017 5:28 PM EST 5 mg warfarin (COUMADIN) tablet 5 mg 5 mg, Oral, ONCE, 1 dose, On Thu05/27/17 at 1700, Routine Given 05/27/2017 5:13 PM EST 5 mg warfarin (COUMADIN) tablet 5 mg 5 mg, Oral, ONCE, 1 dose, On Thu05/29/17 at 1700, Routine Given 05/29/2017 4:35 PM EST 5 mg warfarin (COUMADIN) tablet 7.5 mg 7.5 mg, Oral, ONCE, 1 dose, On Thu05/28/17 at 1700, Routine Given 05/28/2017 4:17 PM EST 7.5 mg documented in this encounter Active and Recently Administered Medications Times are shown in EST. Scheduled Medication Order 05/28/2017 05/29/2017 05/30/2017 acetaminophen (TYLENOL) tablet 1,000 mg 1,000 mg, Oral, EVERY 6 HOURS SCHEDULED, First dose on Thu05/26/17 at 1800, Until Discontinued, For pain when taking by mouth , Routine 0610 (Given - Provider: Elidia Meza RN)1136 (Given - Provider: Sabas Walker RN)1747 (Given - Provider: Harvey Bahena RN)2353 (Given - Provider: Devon Clark RN) 0537 (Given - Provider: Devon Clark RN)1145 (Given - Provider: Sabas Walker RN)1831 (Given - Provider: Harvey Bahena RN) 0011 (Given - Provider: Marquis Sanchez RN)0553 (Given - Provider: Marquis Sanchez RN)1144 (Given - Provider: Sabas Walker RN) aspirin chewable tablet 81 mg (CANCELED)(Linked Group 1) 81 mg, Oral, DAILY, First dose on Thu05/26/17 at 0900, Until Discontinued, Start on post-op day 1 in the AM., Routine 0828 (Given - Provider: Sabas Walker RN) 0846 (Given - Provider: Sabas Walker RN) aspirin chewable tablet 81 mg 81 mg, Oral, DAILY, First dose on Thu05/30/17 at 0900, Until Discontinued, Routine 0811 (Given - Provider: Sabas Walker RN) atorvastatin (LIPITOR) tablet 80 mg 80 mg, Oral, EVERY EVENING, First dose on Thu05/18/17 at 1700, Until Discontinued, Routine 1616 (Given - Provider: Harvey Bahena RN) 1635 (Given - Provider: Harvey Bahena RN) docusate sodium (COLACE) capsule 100 mg 100 mg, Oral, 2 TIMES DAILY, First dose on Thu05/27/17 at 2100, Until Discontinued, Routine 0828 (Given - Provider: Sabas Walker RN)2106 (Given - Provider: Harvey Bahena RN) 0845 (Given - Provider: Sabas Walker RN)2100 (Not Given - Provider: Harvey Bahena RN - Reason: Patient/family refused) 0900 (Not Given - Provider: Sabas Walker RN - Reason: Patient/family refused) furosemide (LASIX) injection 20 mg (CANCELED) 20 mg, Intravenous, 2 TIMES DAILY, First dose on Thu05/27/17 at 0900, Until Discontinued, Please hold AM dose (05/29) 0826 (Given - Provider: Sabas Walker RN)1616 (Given - Provider: Harvey Bahena RN) 0841 (Given - Provider: Sabas Walker, PAIGE) hydroxychloroquine (PLAQUENIL) tablet 200 mg 200 mg, Oral, 2 TIMES DAILY, First dose (after last modification) on Thu05/26/17 at 0900, Until Discontinued, Routine 1010 (Given - Provider: Sabas Walker, PAIGE)2107 (Given - Provider: Harvey Bahena RN) 0957 (Given - Provider: Sabas Walker, RN)2054 (Given - Provider: Harvey Bahena RN) 0811 (Given - Provider: Sabas Walker, PAIGE) insulin lispro (humaLOG) VIAL injection 1-4 Units(Linked Group 2) 1-4 Units, Subcutaneous, 3 TIMES DAILY BEFORE MEALS, First dose on Thu05/27/17 at 1630, Until Discontinued, CORRECTION BOLUS Sensitive to insulin lean patient or total daily dose of all insulin needed to achieve glycemic control less than 30 units BG 140 - 160 Give 1 unit BG 161 - 200 Give 2 units BG 201 - 240 Give 3 units BG greater than 240, give 4 units and recheck BG in 2 hours. If less than 240 after two hours, give no insulin and resume prior schedule. If BG remains greater than 240, repeat 4 units (no more than three times) & call for new basal insulin orders. DO NOT hold if NPO, unless specifically told to do so., Routine 0730 (Not Given - Provider: Sabas Walker RN - Reason: Order parameters not met)1130 (Not Given - Provider: Sabas Walker RN - Reason: Order parameters not met)1630 (Not Given - Provider: Harvey Bahena RN - Reason: Order parameters not met) 0730 (Not Given - Provider: Sabas Walker RN - Reason: Order parameters not met)1130 (Not Given - Provider: Sabas Walker RN - Reason: Order parameters not met)1630 (Not Given - Provider: Harvey Bahena RN - Reason: Order parameters not met) 0730 (Not Given - Provider: Sabas Walker RN - Reason: Order parameters not met)1130 (Not Given - Provider: Sabas Walker RN - Reason: Order parameters not met) levothyroxine (SYNTHROID) tablet 25 mcg 25 mcg, Oral, DAILY, First dose (after last modification) on Thu05/26/17 at 0600, Until Discontinued 0610 (Given - Provider: Elidia Meza RN) 0537 (Given - Provider: Devon Clark RN) 0554 (Given - Provider: Marquis Sanchez, PAIGE) magnesium hydroxide (MILK OF MAGNESIA) oral suspension 10 mL 10 mL, Oral, DAILY, First dose on Thu05/27/17 at 0900, Until Discontinued, Post-op day 2. Do not use with renal insufficiency., Routine 0900 (Given - Provider: Sabas Walker RN) 0846 (Given - Provider: Sabas Walker RN) 0900 (Not Given - Provider: Sabas Walker RN - Reason: Patient/family refused) meTOPROLOL (LOPRESSOR) tablet 37.5 mg 37.5 mg, Oral, EVERY 8 HOURS SCHEDULED, First dose (after last modification) on Thu05/29/17 at 2200, Until Discontinued, Please hold for sbp <90, hr <60, Routine 2155 (Given - Provider: Marquis Sanchez RN) 0553 (Given - Provider: Marquis Sanchez, PAIGE)1431 (Given - Provider: Sabas Walker RN) meTOPROLOL tartrate (LOPRESSOR) tablet 25 mg (CANCELED) 25 mg, Oral, EVERY 12 HOURS SCHEDULED (2 times per day), First dose (after last modification) on Thu05/26/17 at 2100, Until Discontinued, Routine 0829 (Given - Provider: Sabas Walker RN) meTOPROLOL tartrate (LOPRESSOR) tablet 25 mg (COMPLETED) 25 mg, Oral, ONCE, 1 dose, On Yaritza 05/28/17 at 1115, Please hold for sbp <90, hr <60, Routine 1136 (Given - Provider: Sabas Walker RN) meTOPROLOL tartrate (LOPRESSOR) tablet 50 mg (CANCELED) 50 mg, Oral, EVERY 12 HOURS SCHEDULED (2 times per day), First dose (after last modification) on Thu05/28/17 at 2100, Until Discontinued, Routine 2100 (Not Given - Provider: Harvey Bahena RN - Reason: Order parameters not met) 0845 (Given - Provider: Sabas Walker RN) meTOPROLOL tartrate (LOPRESSOR) tablet 50 mg (CANCELED) 50 mg, Oral, EVERY 8 HOURS SCHEDULED, First dose (after last modification) on Thu05/29/17 at 1400, Until Discontinued, Please hold for sbp <90, hr <60, Routine 1338 (Given - Provider: Sabas Walker RN) pantoprazole (PROTONIX) injection 40 mg(Linked Group 3) 40 mg, Intravenous, DAILY, First dose on Thu05/25/17 at 1600, Until Discontinued, Reconstitute with 10 mL of normal saline to a concentration of 4 mg/mL and infuse slowly over 2 minutes. , Routine 0829 (See Alternative - Provider: Sabas Walker RN) 0845 (See Alternative - Provider: Sabas Walker RN) 0810 (See Alternative - Provider: Sabas Walker, RN) pantoprazole (PROTONIX) tablet 40 mg(Linked Group 3) 40 mg, Oral, DAILY, First dose on Thu05/25/17 at 1600, Until Discontinued, DO NOT CRUSH OR OPEN If unable to take PO, may give IV 0829 (Given - Provider: Sabas Walker RN) 0845 (Given - Provider: Sabas Walker RN) 0810 (Given - Provider: Sabas Walker RN) potassium chloride (K-DUR/KLOR-CON) extended release tablet 10 mEq (COMPLETED) 10 mEq, Oral, ONCE, 1 dose, On Thu05/29/17 at 0915, Routine 0957 (Given - Provider: Sabas Walker RN) potassium chloride (K-DUR/KLOR-CON) extended release tablet 20 mEq (COMPLETED) 20 mEq, Oral, ONCE, 1 dose, On Thu05/30/17 at 0700, 20 mEq tablet may be dissolved in water for administration, Routine 0811 (Given - Provider: Sabas Walker RN) senna-docusate (PERICOLACE) 8.6-50 mg per tablet 2 tablet 2 tablet, Oral, DAILY, First dose on Thu05/26/17 at 2100, Until Discontinued, Post-op day 1, Routine 210 (Given - Provider: Harvey Bahena RN) 2100 (Not Given - Provider: Harvey Bahena RN - Reason: Patient/family refused) sodium chloride 0.9 % flush 5 mL 5 mL, Intravenous, 2 TIMES DAILY, First dose on Thu05/27/17 at 1345, Until Discontinued, Routine 0830 (Given - Provider: Sabas Walker RN)2110 (Given - Provider: Harvey Bahena RN) 0900 (Given - Provider: Sabas Walker RN)2053 (Given - Provider: Harvey Bahena RN) 0900 (Given - Provider: Sabas Walker RN) warfarin (COUMADIN) daily order reminder Oral, EVERY 24 HOURS, First dose on Thu05/27/17 at 1400, Until Discontinued, If the daily warfarin order has not been placed, contact the Provider to confirm that the order will be written, the dose is held or discontinued. 1500 (Dose confirmed - Provider: Harvey Bahena RN) 1400 (Dose confirmed - Provider: Sabas Walker RN) 1400 (Dose confirmed - Provider: Sabas Walker RN) warfarin (COUMADIN) tablet 2.5 mg 2.5 mg, Oral, ONCE, 1 dose, On 05/30/17 at 1700, Routine warfarin (COUMADIN) tablet 5 mg (COMPLETED) 5 mg, Oral, ONCE, 1 dose, On Thu05/29/17 at 1700, Routine 1635 (Given - Provider: Harvey Bahena RN) warfarin (COUMADIN) tablet 7.5 mg (COMPLETED) 7.5 mg, Oral, ONCE, 1 dose, On Yaritza 05/28/17 at 1700, Routine 1617 (Given - Provider: Harvey Bahena RN) Continuous Medication Order 05/28/2017 05/29/2017 05/30/2017 heparin 25,000 units in dextrose 5% 500 mL infusion (CANCELED) 500-7,000 Units/hr (10-140 mL/hr), Intravenous, CONTINUOUS, Starting on 05/26/17 at 0845, Until 05/30/17 at 0629, Patient Weight 70-74 kg Initial dose - 1,100 units/hr = 22 mL/hr anti-Xa less than 0.1 units/mL - increase heparin infusion by 300 units/hr = 6 mL/hr anti-Xa 0.1-0.29 units/mL - increase heparin infusion by 150 units/hr = 3 mL/hr anti-Xa 0.3-0.7 units/mL - no change anti-Xa 0.71-0.85 units/mL - decrease by 50 units/hr = 1 mL/hr anti-Xa 0.86-1.05 units/mL - stop infusion for 30 min then decrease by 150 units/hr = 3 mL/hr anti-Xa greater than 1.05 units/mL - stop infusion for 60 min then decrease by 200 units/hr = 4 mL/hr anti-Xa greater than 1.05 units/mL X 2 - call housekeeper home See Bolus dosing guidance for anti-Xa results less than 0.3 units/mL under PRN medications Repeat anti-Xa level 6 hours after initiating heparin, then 6 hours after each dose adjustment. When 2 consecutive anti-Xa results within target range of 0.3 - 0.7 units/mL, change anti-Xa monitoring to once every 24 hours with A.M. labs while on heparin. RN to order required anti-Xa level - Per Protocol Routine, Routine 0552 (Rate/Dose Verify - Provider: Elidia Meza RN)0758 (New Bag - Provider: Sabas Walker RN) 0645 (New Bag - Provider: Devon Clark RN)0823 (New Bag - Provider: Sabas Walker, PAIGE)1846 (Rate/Dose Verify - Provider: Harvey Bahena RN) 0436 (New Bag - Provider: Marquis Sanchez RN)0729 (Stopped - Provider: Sabas Walker, RN) PRN Medication Order 05/28/2017 05/29/2017 05/30/2017 bisacodyl (DULCOLAX) suppository 10 mg 10 mg, Rectal, DAILY PRN, Starting on Yaritza 05/28/17 at 0000, Until 05/30/17 at 1644, Constipation, Starting post-op day 3., Routine 0852 (Given - Provider: Sabas Walker, PAIGE) dextrose 50% IV syringe 25-50 mL(Linked Group 4) 25-50 mL (12.5-25 g), Intravenous, EVERY 1 HOUR PRN, Starting on 05/27/17 at 1325, Until 05/30/17 at 1644, Low blood sugar, For BG 50-70: 120 mL Juice or Regular (not diet) soda OR 12.5 gram (25 mL) Dextrose 50% IV OR, if no IV access, 1 mg Glucagon IM. Recheck BG in 30 minutes. May repeat juice, dextrose or glucagon once per episode For BG less than 50: 240 mL Juice or Regular (not diet) soda OR 25 grams (50 mL) Dextrose 50% IV OR, if no IV access, 1 mg Glucagon IM. Recheck BG in 30 minutes. May repeat juice, dextrose, or glucagon once per episode. To avoid extravasation, push Dextrose 50% SLOWLY (3 mL over 1 minute) in a patent, running IV, preferably a central line. For persistent hypoglycemia, consider longer-acting treatment for the duration of the active insulin., Routine glucagon (human recombinant) injection SolR 1 mg(Linked Group 4) 1 mg, Intramuscular, EVERY 1 HOUR PRN, Starting on 05/27/17 at 1325, Until 05/30/17 at 1644, Low blood sugar, For BG 50-70: 120 mL Juice or Regular (not diet) soda OR 12.5 gram (25 mL) Dextrose 50% IV OR, if no IV access, 1 mg Glucagon IM. Recheck BG in 30 minutes. May repeat juice, dextrose or glucagon once per episode For BG less than 50: 240 mL Juice or Regular (not diet) soda OR 25 grams (50 mL) Dextrose 50% IV OR, if no IV access, 1 mg Glucagon IM. Recheck BG in 30 minutes. May repeat juice, dextrose, or glucagon once per episode. To avoid extravasation, push Dextrose 50% SLOWLY (3 mL over 1 minute) in a patent, running IV, preferably a central line. For persistent hypoglycemia, consider longer-acting treatment for the duration of the active insulin., Routine heparin (porcine) injection 2,500-5,000 Units (CANCELED) 2,500-5,000 Units, Intravenous, BOLUS PER HEPARIN PROTOCOL, Starting on Thu05/26/17 at 0823, Until 05/30/17 at 0629, Per Protocol, Adjust to dosing chart, Patient Weight 70-74 kg anti-Xa less than 0.1 units/mL - administer 5,000 unit heparin bolus anti-Xa 0.1-0.29 units/mL - administer 2,500 unit heparin bolus anti-Xa 0.3-0.7 units/mL - no bolus Repeat anti-Xa level 6 hours after initiating heparin, then 6 hours after each dose adjustment. When 2 consecutive anti-Xa results within target range of 0.3 - 0.7 units/mL, change anti-Xa monitoring to once every 24 hours with A.M. labs while on heparin. RN to order required anti-Xa level - Per Protocol Routine, Routine 0644 (Given - Provider: Devon Clark RN) HYDROmorphone (DILAUDID) tablet 2-4 mg 2-4 mg, Oral, EVERY 4 HOURS PRN, Starting on Thu05/26/17 at 0856, Until 05/30/17 at 1644, Pain, pain scale 1-5->give 2mg; pain scale 6-10->give 4mg, Routine 0833 (Given - Provider: Sabas Walker RN)9153 (Given - Provider: Devon Clark RN) lidocaine (XYLOCAINE) 10 mg/mL (1 %) injection 3 mg 3 mg (0.3 mL), Subcutaneous, ONCE PRN, 1 dose, Starting on Thu05/27/17 at 1325, Until 05/30/17 at 1644, for discomfort with PIV insertion, Routine LORazepam (ATIVAN) tablet 0.5 mg 0.5 mg, Oral, EVERY 8 HOURS PRN, Starting on Thu05/27/17 at 0656, Until 05/30/17 at 1644, Anxiety, Routine magnesium hydroxide (MILK OF MAGNESIA) oral suspension 10 mL 10 mL, Oral, DAILY PRN, Starting on Thu05/27/17 at 1325, Until 05/30/17 at 1644, Constipation, Administer if needed per patient's routine or if no bowel movement within 48 hours to achieve: (1) One bowel movement every 48 hours, AND (2) Without straining. If multiple PRN bowel medications ordered, start with magnesium hydroxide, then bisacodyl. Multiple medications may be given concomitantly for constipation., Routine 0830 (Given - Provider: Sabas Walker, RN) ondansetron (ZOFRAN) injection 4 mg 4 mg, Intravenous, EVERY 8 HOURS PRN, Starting on Thu05/25/17 at 1502, Until 05/30/17 at 1644, Nausea 1439 (Given - Provider: Sabas Walker RN) sodium chloride 0.9 % flush 5-20 mL 5-20 mL, Intravenous, EVERY 1 MIN PRN, Starting on Thu05/27/17 at 1325, Until 05/30/17 at 1644, flush, Flush pertains to all indwelling lines. Flush per protocol found in the job aid using the link provided on this medication record., Routine Linked Groups Order Group 1: aspirin chewable tablet 81 mg (CANCELED)Jump to med 81 mg, Oral, DAILY, First dose on Thu05/26/17 at 0900, Until Discontinued, Start on post-op day 1 in the AM., Routine Or aspirin suppository 300 mg (CANCELED) 300 mg, Rectal, DAILY, First dose on Thu05/26/17 at 0900, Until Discontinued, Start on post-op day 1 in the AM Give OR if unable to take PO, Routine Group 2: POCT Fingerstick Glucose (CANCELED) Routine, 4 TIMES DAILY BEFORE MEALS & AT BEDTIME, First occurrence on Thu05/27/17 at 1700, Until Specified, Consider choosing FOUR TIMES A DAY BEFORE MEALS AND AT BEDTIME as frequency for: Patients who have good hypoglycemia awareness: -Patients who are eating meals during the day and sleeping at night -Patient who are otherwise stable And insulin lispro (humaLOG) VIAL injection 1-4 UnitsJump to med 1-4 Units, Subcutaneous, 3 TIMES DAILY BEFORE MEALS, First dose on Thu05/27/17 at 1630, Until Discontinued, CORRECTION BOLUS Sensitive to insulin lean patient or total daily dose of all insulin needed to achieve glycemic control less than 30 units BG 140 - 160 Give 1 unit BG 161 - 200 Give 2 units BG 201 - 240 Give 3 units BG greater than 240, give 4 units and recheck BG in 2 hours. If less than 240 after two hours, give no insulin and resume prior schedule. If BG remains greater than 240, repeat 4 units (no more than three times) & call for new basal insulin orders. DO NOT hold if NPO, unless specifically told to do so., Routine Group 3: pantoprazole (PROTONIX) tablet 40 mgJump to med 40 mg, Oral, DAILY, First dose on Thu05/25/17 at 1600, Until Discontinued, DO NOT CRUSH OR OPEN If unable to take PO, may give IV Or pantoprazole (PROTONIX) injection 40 mgJump to med 40 mg, Intravenous, DAILY, First dose on Thu05/25/17 at 1600, Until Discontinued, Reconstitute with 10 mL of normal saline to a concentration of 4 mg/mL and infuse slowly over 2 minutes. , Routine Group 4: dextrose 50% IV syringe 25-50 mLJump to med 25-50 mL (12.5-25 g), Intravenous, EVERY 1 HOUR PRN, Starting on Thu05/27/17 at 1325, Until 05/30/17 at 1644, Low blood sugar, For BG 50-70: 120 mL Juice or Regular (not diet) soda OR 12.5 gram (25 mL) Dextrose 50% IV OR, if no IV access, 1 mg Glucagon IM. Recheck BG in 30 minutes. May repeat juice, dextrose or glucagon once per episode For BG less than 50: 240 mL Juice or Regular (not diet) soda OR 25 grams (50 mL) Dextrose 50% IV OR, if no IV access, 1 mg Glucagon IM. Recheck BG in 30 minutes. May repeat juice, dextrose, or glucagon once per episode. To avoid extravasation, push Dextrose 50% SLOWLY (3 mL over 1 minute) in a patent, running IV, preferably a central line. For persistent hypoglycemia, consider longer-acting treatment for the duration of the active insulin., Routine Or glucagon (human recombinant) injection SolR 1 mgJump to med 1 mg, Intramuscular, EVERY 1 HOUR PRN, Starting on Thu05/27/17 at 1325, Until 05/30/17 at 1644, Low blood sugar, For BG 50-70: 120 mL Juice or Regular (not diet) soda OR 12.5 gram (25 mL) Dextrose 50% IV OR, if no IV access, 1 mg Glucagon IM. Recheck BG in 30 minutes. May repeat juice, dextrose or glucagon once per episode For BG less than 50: 240 mL Juice or Regular (not diet) soda OR 25 grams (50 mL) Dextrose 50% IV OR, if no IV access, 1 mg Glucagon IM. Recheck BG in 30 minutes. May repeat juice, dextrose, or glucagon once per episode. To avoid extravasation, push Dextrose 50% SLOWLY (3 mL over 1 minute) in a patent, running IV, preferably a central line. For persistent hypoglycemia, consider longer-acting treatment for the duration of the active insulin., Routine documented in this encounter Care Teams Lead Java Software Engineer Relationship Specialty Start Date End Date Mckenna Genao, SUELLEN [address] [place] [id number] PCP - General Family Medicine 05/07/17 08/08/21 documented as of this encounter
--- OUTSIDE RECORDS SUMMARY | 2023-11-04 15:18 | XMS_ITS | Encounter Summary ---
[place] [address] Care Team Providers Care Roentgenologist Name Role Phone KareenMckenna marlow SUELLEN Primary Care Provider [phone] Encounter Details Date Type Department Care Team (Late st Contact Info) Description 05/25/2017 [place] [id number] Unknown None Social History Tobacco Use Types Packs/Day [...] Telephone Visit [facility] Centralized [place] [phone] documented as of this encounter Procedures Procedure Name Priority Date/Time Associated Diagnosis Comments TRANSESOPHAGEAL ECHOCARDIOGRAM (KIRK) Routine 05/25/2017 documented in this encounter Results * Transesophageal Echocardiogram (KIRK) (05/25/2017) Anatomical Region Laterality Modality Other 05/25/2017 Narrative 05/25/2017 3:30 PM EST Procedure: ?Transesophageal Echocardiogram Patient: ?SEBASTIÁN Montiel ? (Age): 1970(47y) Med Rec#: ? [id number] ?Sex: ?F ? [place] ? [facility] [place] / Wt: ??162(cm)/71(kg) Pt. Loc: ?OR ?BSA: ?1.76 Study Date: ?? 05/25/2017 ?Pt. Type: Tape: ? Referring: Kuldeep Lynn Reading: Karel Estrada ([id number]) Candy Department Manager: Jeri Boston ([id number]) Candy Department Manager: Silvio Beaulieu ??([id number]) Interpreting Fellow: Silvio Beaulieu ??([id number]) Diagnosis: Rhythm: ? Sinus HR: ? 65 SUMMARY: 1. PREOPERATIVE FINDINGS: The [place] aortic valve is bicuspid with fusion of the right and left coronary cusps. There is thickening and prolapse of the fused cusp leading to an eccentric, anteriorly directed jet of severe (4+/4+) aortic regurgitation. The effective regurgitant orifice area by PISA is 0.9 cm2. There is holodiastolic flow reversal in the descending aorta. The aortic root and ascending aorta are normal in size. The left ventricle is mildly dilated with a mildly reduced ejection fraction of 45%. There are no segmental wall motion abnormalities. Ther right ventricle is normal in size and global systolic function. Other than the aortic valve findings, there is not other significant valvular disease. 2. POSTOPERATIVE FINDINGS: There is now a bileaflet mechanical prosthesis in the aortic position. The valve is well seated with normal function. There are washing jets in the expected pattern, but no paravalvular regurgitation. The mean gradient is 4 mmHg. Other than this, there are no significant changes from the preoperative examination. Left ventricular systolic function remains mildly reduced with an estimated ejection fraction of 45%. 3. See remainder of report for additional findings. Findings ? : Study Quality: ? Adequate Left Ventricle: ? The left ventricle is mildly dilated. ?Global left ventricular systolic function is mildly reduced. Ejection fraction is estimated to be 45%. ?There is diffuse hypokinesis present. Left Atrium: ? The left atrium is probably normal in size. ?There is no evidence of spontaneous echo contrast. ?The left atrial appendage velocity is normal. ?No thrombus is visualized within the left atrium. ?No clot is noted in the left atrial appendage. ?There is no evidence of a patent foramen ovale by color Doppler. Right Ventricle: ? The right ventricle is normal in size. ?A catheter is visualized in the right ventricle. ?Right ventricular global systolic function is normal. Right Atrium: ? The right atrium is probably normal in size. ?A catheter is visualized in the right atrium. Aortic Valve: ? The size of the prosthetic aortic valve is 27mm. ?The prosthetic aortic valve was implanted on 05/25/2017. ?A [employer]. Judes mechanical aortic valve prosthesis is present. ?The mechanical prosthetic aortic valve prosthesis is functioning normally with expected regurgitant jet pattern.mean gradient 4 mmHg Mitral Valve: ? The mitral valve leaflets appear normal. ?Mitral valve leaflet mobility appears normal. ?There is no evidence of mitral stenosis. ?There is mild (1+/4+) mitral regurgitation present. ?The mitral regurgitant jet is centrally directed. ?No vegetation is observed on the mitral valve. Tricuspid Valve: ? The tricuspid valve leaflets are morphologically normal. ?There is trace tricuspid regurgitation present. Pulmonic Valve: ? The pulmonic valve is probably normal. ?There is trace pulmonic regurgitation present. Pericardium: ? There is no pericardial effusion. Aorta: ? There is evidence of grade 2 (extensive intimal thickening) atheromatous disease of the ascending aorta. ?There is evidence of grade 2 (extensive intimal thickening) atheromatous disease of the aortic arch. ?There is evidence of grade 2 (extensive intimal thickening) atheromatous disease of the descending thoracic aorta. Kirk Procedures: ? The KIRK probe was passed in the operating room by the anesthesiologist after the patient was sedated with general anesthesia. Misc: ? See remainder of report for additional findings. Chambers 2D ?Value ?Units (Range) ? Ao root diameter (2D3.5 ?cm (2.1 - 3.6) ? Ascending Ao ?2.6 ?cm (2 - 3.5) ? This report has been electronically signed by: Karel Estrada MD ? 05/25/2017 15:29:39 Images reviewed and interpretation verified [facility] Cardiac Ultrasound Laboratory Procedure Note Karel Estrada MD - 05/25/2017 Procedure: Transesophageal Echocardiogram Patient: SEBASTIÁN Montiel (Age): 1970(47y) Med Rec#: [id number] Sex: F [place] [facility] [place]t / Wt: 162(cm)/71(kg) Pt. Loc: OR BSA: 1.76 Study Date: 05/25/2017 Pt. Type: Tape: Referring: Kuldeep Lynn Reading: Karel Estrada ([id number]) Candy Department Manager: Jeri Boston ([id number]) Candy Department Manager: Silvio Beaulieu ([id number]) Interpreting Fellow: Silvio Beaulieu ([id number]) Diagnosis: Rhythm: Sinus HR: 65 SUMMARY: 1. PREOPERATIVE FINDINGS: The [place] aortic valve is bicuspid with fusion of the right and left coronary cusps. There is thickening and prolapse of the fused cusp leading to an eccentric, anteriorly directed jet of severe (4+/4+) aortic regurgitation. The effective regurgitant orifice area by PISA is 0.9 cm2. There is holodiastolic flow reversal in the descending aorta. The aortic root and ascending aorta are normal in size. The left ventricle is mildly dilated with a mildly reduced ejection fraction of 45%. There are no segmental wall motion abnormalities. Ther right ventricle is normal in size and global systolic function. Other than the aortic valve findings, there is not other significant valvular disease. 2. POSTOPERATIVE FINDINGS: There is now a bileaflet mechanical prosthesis in the aortic position. The valve is well seated with normal function. There are washing jets in the expected pattern, but no paravalvular regurgitation. The mean gradient is 4 mmHg. Other than this, there are no significant changes from the preoperative examination. Left ventricular systolic function remains mildly reduced with an estimated ejection fraction of 45%. 3. See remainder of report for additional findings. Findings : Study Quality: Adequate Left Ventricle: The left ventricle is mildly dilated. Global left ventricular systolic function is mildly reduced. Ejection fraction is estimated to be 45%. There is diffuse hypokinesis present. Left Atrium: The left atrium is probably normal in size. There is no evidence of spontaneous echo contrast. The left atrial appendage velocity is normal. No thrombus is visualized within the left atrium. No clot is noted in the left atrial appendage. There is no evidence of a patent foramen ovale by color Doppler. Right Ventricle: The right ventricle is normal in size. A catheter is visualized in the right ventricle. Right ventricular global systolic function is normal. Right Atrium: The right atrium is probably normal in size. A catheter is visualized in the right atrium. Aortic Valve: The size of the prosthetic aortic valve is 27mm. The prosthetic aortic valve was implanted on 05/25/2017. A [employer]. Judes mechanical aortic valve prosthesis is present. The mechanical prosthetic aortic valve prosthesis is functioning normally with expected regurgitant jet pattern.mean gradient 4 mmHg Mitral Valve: The mitral valve leaflets appear normal. Mitral valve leaflet mobility appears normal. There is no evidence of mitral stenosis. There is mild (1+/4+) mitral regurgitation present. The mitral regurgitant jet is centrally directed. No vegetation is observed on the mitral valve. Tricuspid Valve: The tricuspid valve leaflets are morphologically normal. There is trace tricuspid regurgitation present. Pulmonic Valve: The pulmonic valve is probably normal. There is trace pulmonic regurgitation present. Pericardium: There is no pericardial effusion. Aorta: There is evidence of grade 2 (extensive intimal thickening) atheromatous disease of the ascending aorta. There is evidence of grade 2 (extensive intimal thickening) atheromatous disease of the aortic arch. There is evidence of grade 2 (extensive intimal thickening) atheromatous disease of the descending thoracic aorta. Kirk Procedures: The KIRK probe was passed in the operating room by the anesthesiologist after the patient was sedated with general anesthesia. Misc: See remainder of report for additional findings. Chambers 2D Value Units (Range) Ao root diameter (2D3.5 cm (2.1 - 3.6) Ascending Ao 2.6 cm (2 - 3.5) This report has been electronically signed by: Karel Estrada MD 05/25/2017 15:29:39 Images reviewed and interpretation verified [facility] Cardiac Ultrasound Laboratory Unknown ECHO ORDERABLES documented in this encounter Visit Diagnoses Not on filedocumented in this encounter Care Teams Roentgenologist Relationship Specialty Start Date End Date Mckenna Genao APRN [address] [place] [address] PCP - General Family Medicine 05/07/17 08/08/21 documented as of this encounter
--- OUTSIDE RECORDS SUMMARY | 2023-11-04 15:18 | XMS_ITS | Encounter Summary ---
Author Organization [facility] [place] [address] Care Team Providers Care Elastic Cutter Name Role Phone Mckenna Genao APRN Primary Care Provider [phone] Encounter Details Date Type Department Care Team (Late st Contact Info) Description 05/25/2017 [place] [phone] Alvaro Siegel MD [facility] [place] [address] Social History Tobacco Use Types Packs/Day Years [...] encounter Miscellaneous Notes * Telephone Encounter - Halle Roy Rachel - 05/25/2017 10:13 AM EST Spoke with pt and she said to speak with her for appointments. LM on pt's husbands voicemail to schedule CTU (ask safety questions), Cysto, and follow up with Dr. Siegel in a few weeks (mid June-early July). documented in this encounter Plan of Treatment Upcoming Encounters Date Type Department Care Team (Late st Contact Info) Description 11/11/2023 3:00 AM EDT Anti-Coag Telephone Visit [facility] [place] [phone] documented as of this encounter Visit Diagnoses Not on filedocumented in this encounter Care Teams Elastic Cutter Relationship Specialty Start Date End Date Mckenna Genao, SUELLEN [address] [place] [address] PCP - General Family Medicine 05/07/17 08/08/21 documented as of this encounter
--- OUTSIDE RECORDS SUMMARY | 2023-11-04 15:20 | XMS_ITS | Encounter Summary ---
[place] [address] Care Team Providers Care Processing Analyst Name Role Phone BirgitMckenna SUELLEN Primary Care Provider [phone] Reason for Visit * Auth/Cert Specialty Diagnoses / Procedures Referred By Contac t Referred To Contact Diagnoses Chest pain WORSENING CHEST PAIN Referral ID Status Reason Start Date Expiration Date Visits Re quested Visits Authorized [id number] 1 1 Encounter Details Date Type Department Care Team (Late st Contact Info) Description 05/25/2017 10:30 AM EST - 05/25/2017 2:57 PM EST Surgery [place] [address] Kuldeep Conner MD [facility] DR CARDIOTHORACIC [place] [address] @REPLACE AORTIC VALVE, OPEN, W\CPB, W\PROSTHETIC VALVE (WRVU 41.32) Social History Tobacco Use Types Packs/Day Years [...] Patient Age: 47 y.o. Birthdate: 1970 Language: Eritrean Race: White Ethnicity: Not nor Admit Date: 05/17/2017 Discharge Date: 05/29/17 Attending Physician: Kuldeep Conner MD Follow-up Recommendations for Providers: Please continue routine management of cardiovascular risk factors including blood pressure, lipids,glucose, etc. Please note any changes to medications. Patient to follow-up with PCP, Mckenna Genao APRN, in 1-2 weeks. Patient to follow-up with Mainframe Systems Administrator, Dr. Yogi Alegre, in two weeks. Patient to follow-up with Cardiac Surgery, Dr. Kuldeep Conner, in ~ 4 weeks with CXR, EKG, and Echo. Patient to follow up with Urology, Dr Shiva Payne, as an outpatient in 1-2 weeks. Pt to follow-up with Hematology, Dr. Hills, as an outpatient in 1-2 weeks. Inpatient Provider Contact Information: [facility] Section of Cardiac Surgery [facility] [address] FAX [phone] Discharge Diagnoses (Hospital Problems) Primary Diagnoses: Secondary [...] 41.32) performed by Kuldeep Conner MD at [facility] MAIN OR ??? TUBAL LIGATION ??? [...] Hospital Course: Noah Dumont was admitted to [facility] on 05/17/2017 via the Cardiology Service. [...] Wt 70.6 kg (155 lb 10.3 oz) XgB064% BMI 26.72 kg/m2 Patient Vitals for the [...] not take or discontinue any prescription or fcrc-ire-xfdevza medications without asking your doctor or pharmacist [...] Kuldeep Conner and/or the Cardiac Surgery Physician Auto Job Estimator Team may be reached at . Antibiotic prophylaxis: You will need to take antibiotics prior to many invasive tests and treatments, such as dental cleaning, which should be done every 6 months. Your primary care physician or your dentist can prescribe this medication. Please refer to the card with the [place] [employer] Guidelines for more information. You have been provided with 3 copies of this card. Keep one for your self. Give one to your primary care physician and one to your dentist. Please refer to the [place] [employer] Guidelines for more information. Good [...] Dr. Kuldeep Madrigal. You may use a [place] Track or treadmill but avoid any pulling [...] friends, go to a movie, go to jainism, etc. Heavy activities: No hunting, skiing, jogging, [...] should resume a low fat, low cholesterol, [place] [employer] Diet. Driving: No driving until [...] in 1-2 weeks. Patient to follow-up with Mainframe Systems Administrator, Dr. Yogi Alegre, in two weeks. Patient [...] the outpatient Phase [address] [facility] . The patient agrees to a referral to this program. The referral will be sent at discharge and the patient should be contacted by the Program within 1- 2 weeks from discharge. Future Appointments and Orders Future Orders Complete By Expires Echocardiogram Transthoracic(Leb) [KSZ239 Custom] 05/30/2017 05/30/2018 Process Instructions: If the Echocardiogram is to be PERFORMED in a location other than [place]--STOP and order [id number], Echocardiogram South/External. Scheduling Instructions: Questions: Is a Bubble Study requested?: Does the patient have Congenital Heart Disease?: Does patient require sedation?: GA rationale: XR Chest PA & Lateral (Generic) [82497 [id number] Custom] 05/30/2017 11/29/2017 Process Instructions: Scheduling Instructions: Questions: Where will study be performed?: [facility] Portable exam?: Reason for exam and clinical history: s/p avr Other pertinent information: Stat read required?: Date of injury if applicable: Requested Time: Is the patient ?: No CT Urogram [[id number] Custom] 06/23/2017 12/23/2017 Process Instructions: Scheduling Instructions: Questions: Where will study be performed?: [facility] Portable exam?: Reason for exam and clinical history: gross hematuria, three phase imaging please Other pertinent information: Is the patient ?: No Stat read required?: Does patient require sedation?: GA rationale: Date of injury if applicable: Requested Time: EKG 12 Lead [EKG1 Custom] As directed Process Instructions: Scheduling Instructions: Questions: Which location will this be performed?: [place] Is a rhythm strip needed?: No If EKG Reason is Pre-op Evaluation, indicate diagnosis for surgery.: Referral to Cardiac Rehab [[id number] Custom] As directed Process Instructions: If no progress note charted, please enter Clinical details in comments. Scheduling Instructions: Questions: My question or request is: AVR- Cardiac rehab at [facility] Referral to Home Health - at DISCHARGE [EJI6222 CPT(R)] As directed Process Instructions: Scheduling Instructions: [...] Nurse Practitioner, Clinical Nurse Specialist or Physician Auto Job Estimator who is working directly with them, had [...] appropriate for home health services. Patient Location: [address] [place] [phone] (home) Telephone Information: HOME Health Agency: [facility] PHONE: [phone] FAX: [phone] RN: Assess cardiopulmonary assessment, vital signs, medication [...] from this patient's PCP: Mckenna Genao APRN [address] [place] [address] [place] [address] Questions: Agency name and contact information: [facility]/VNA Patient location post discharge: home What services are requested: Registered Nurse Physical Therapy Start date: Responsible MD post discharge contact info: Arrangements for VNA/home care: As above. VN RN OR PCP TO PLEASE REMOVE CHEST TUBE SUTURES ON OR AFTER Signed: JANET VILLARREAL [facility] Section of Cardiac Surgery [facility] [address] FAX [phone] Date: 05/30/2017 CC: SUELLEN [place] [address] [place] [address] [place] [address] documented in this encounter Discharge Instructions * [...] not take or discontinue any prescription or krfb-hec-afwhdwb medications without asking your doctor or pharmacist [...] Kuldeep Conner and/or the Cardiac Surgery Physician Auto Job Estimator Team may be reached at . Antibiotic prophylaxis: You will need to take antibiotics prior to many invasive tests and treatments, such as dental cleaning, which should be done every 6 months. Your primary care physician or your dentist can prescribe this medication. Please refer to the card with the [place] [employer] Guidelines for more information. You have been provided with 3 copies of this card. Keep one for your self. Give one to your primary care physician and one to your dentist. Please refer to the [place] [employer] Guidelines for more information. Good [...] Dr. Kuldeep Madrigal. You may use a [place] Track or treadmill but avoid any pulling [...] friends, go to a movie, go to jainism, etc. Heavy activities: No hunting, skiing, jogging, [...] should resume a low fat, low cholesterol, [place] Heart [employer] Diet. Driving: No driving until [...] in 1-2 weeks. Patient to follow-up with Mainframe Systems Administrator, Dr. Yogi Alegre, in two weeks. Patient [...] the outpatient Phase [address] [facility] . The patient agrees to a referral [...] c/o upper left arm pain. IV patent. shoe treer will evaluate. * Anne-Marie Renner DT - 05/29/2017 3:07 PM EST Nutrition Services - Initial Note Noah Dumotn : 1970 AGE: 47 y.o. Patient Active [...] High Chronic ??? Hospital-Dilated cardiomyopathy--- noted in 2003, improved 10/21/2010 Priority: High Chronic ??? Hospital-JAN [...] her sugar and salt intake at home. Textile Screen Maker informed pt she can continue to order her meals here on how she would eat at home on current diet. Pt agreeable. She reported afair appetite without difficulty chewing or swallowing. She had just started experiencing nausea (auto service writer informed nursing). Pt stated she consumed [...] consulted in the interim. SUZETTE Baum * Graham Jill E - 05/29/2017 9:35 AM EST Clinical Education Coordinator Encounter Note Patient Name: Noah Dumont : [id number] MR#: [id number] Admit Date: 05/17/2017 10:57 PM Hospital Day [...] soon Intervention and Outcome: Supportive Presence Follow-up: [facility] Clinical Education Coordinator is available to Ms. Dumont during this admission. Time in Direct Care: 10 minutes Oxana Casiano 05/29/2017 * Chloé Arguello PA - 05/29/2017 9:29 AM EST Cardiac Surgery Progress Note: ID: [id number] Noah Dumont is a 47yo female s/p [...] Gas) No results found for: PHART, PO2ART, AVN9APZ Assessment/Plan: POD #4 s/p mechanical AVR. Pmhx [...] Attending Surgeon on rounds. Signed: JANET Nagy [facility] Section of Cardiac Surgery Date: 05/29/2017 * Rosa Maria Hills MD - 05/28/2017 3:06 PM EST Images from the original note were not included. [facility] [place] [address] THROMBOSIS FOLLOW UP DATE OF VISIT 05/28/2017 [...] 05/27/2017 15:30 05/27/2017 21:32 05/28/2017 04:21 Heparin Syop43o Latest Units: IU/mL 0.55 0.46 0.34 0.42 [...] call with questions. Rosa Maria Hills MD Unit Secretary, [facility] * Teetee Helm Bere - 05/28/2017 1:41 PM EST Vince Encounter Note Patient Name: Noah Dumont : [id number] MR#: [id number] Admit Date: 05/17/2017 10:57 PM Hospital Day 10 days Narrative: Noah was sitting up in a chair by the window when I visited. She had cardiac surgery on Thursday (05/25), after a few days delay. She told me about her surgery and plans for transitioning home. She said her jainism community will provide meals and her son, Franky, will come and stay with her a few days so that her , Cale, can work. Having Cale's continued income is important, she said. Cale works at [employer] in [place] where they live. Noah worries about their finances. Assessment: Noah looked tired and said she feels tired, but has walked the loop a few times. She lives on the 3rd floor of an apartment building and is talking about how she will deal with those stairs when she returns home. She is confident of the assistance she'll receive from her jainism ([place]) and friends so she doesn't seem concerned about meals and assistance. Although Cale does not attend jainism, Noah is an active member and relies on her fiorella for support. Intervention and Outcome: Conversation, listening Follow-up: If Noah is still here on Thursday, I will try to visit. Time in Direct Care: 30 min Teetee Helm 05/28/2017 I * Melissa Aviles RN - 05/28/2017 11:28 AM EST OFFICE OF CARE MANAGEMENT PREVENTATIVE MAINTENANCE TECHNICIAN PROGRESS NOTE CM-RN met with patient at bedside to discuss the need for VNA services at discharge. Patient will need RN & PT (for sternal precautions). Patient states she has good support at home from her , Cale, and her two adult children. She is also involved in her jainism and has much support fromher jainism community. The patient has been provided a list of Home Health Agencies which serve their preferred geographicarea. A letter describing our affiliations was reviewed with them and they were educated about their right to choose where referrals are placed. Patient requests referral to: [facility] PHONE: [phone] FAX: [phone] Expected date of discharge: possible d/c to home on Thursday Referral routed to the Lab Pack Chemist for matching with agency/vendor and to provide any required information. Plan: CM will continue to follow for coordination of care and to facilitate discharge planning. GEORGIA Aviles RN, BS, pager [phone] * Chloé Arguello PA - 05/28/2017 9:14 AM EST Cardiac Surgery Progress Note: ID: [id number] Noah Dumont is a 47yo female s/p [...] 0400 71.8 kg (158 lb 4.6 oz) 18 0435 72.2 kg (159 lb 2.8 oz) [...] Gas) No results found for: PHART, PO2ART, [id number] Assessment/Plan: POD #3 s/p mechanical AVR. Pmhx [...] Attending Surgeon on rounds. Signed: JANET Nagy [facility] Section of Cardiac Surgery Date: 05/28/2017 * Sabas Walker RN - 05/27/2017 6:25 PM EST Patient transferred over from the [facility] s/p post op day 2 from a [...] shift. After ambulating this evening pt had OH interval changes, possible accelerated junct?, and atrial bigem. Pt asymptomatic, remains hemodynamically stable, team aware, will continue to monitor. Report given to PAIGE Chowdhury. Pt transferred to ICCU per order. * Verónica Watters APRN - 05/27/2017 8:11 AM EST Cardiac Surgery Progress Note: ID: [id number] Noah Dumont is a 47yo female s/p [...] 05/27/17 0505 05/26/17 0940 05/26/17 0400 05/25/17 19405/25/17 1355 05/25/17 1235 05/25/17 0348 05/24/17 1046 [...] Recent Labs 05/27/17 0505 05/26/17 0400 05/25/17 19405/25/17 0348 NA -- 142 -- 142 K 4.7 4.7 4.4 4.1 CL -- 106 -- 102 CO2 -- 24 -- 25 BUN -- 14 -- 19* CREATININE -- 0.65* -- 0.85 CALCIUM -- -- -- 9.0 ABG (Arterial Blood Gas) No results found for: PHART, PO2ART, [id number] Assessment/Plan: POD #2 s/p mechanical AVR. Will [...] CTs GI: Cardiac diet, daily protonix, RBOs :veloz, strict I+O Renal: replete K+ as per protocol, lasix 20mg IV BID ID:peña-op cefuroxime Heme:daily ASA, coumadin 5mg today with daily INR, heparin infusion as per AntiXa protocol Endo:insulin infusion as per protocol Dispo:CVCC, full code DW Attending Surgeon on rounds. Signed: Verónica Watters APRN [facility] Section of Cardiac Surgery Date: 05/27/2017 * Rena Alarcon - 05/26/2017 10:56 AM EST Clinical Education Coordinator Encounter Note Patient Name: Noah Dumont : [id number] MR#: [id number] Admit Date: 05/17/2017 10:57 PM Hospital Day 9 days Narrative: Visited on rounds, Noah sitting up in her chair, welcoming a visit. Assessment: She reports preoccupation with pain in the aftermath of surgery yesterday, difficulty sleeping as aresult. She indicates a supportive family, a who will help care for her at home and a [employer] jainism community that offers to cook for her after her discharge. She finds comfort in the many people who have signed her heart pillow. Intervention and Outcome: Presence and reflection appreciated. Follow-up: Yes, after her move to a lower level of care/ Time in Direct Care: 20 mins. Rena Alarcon 05/26/2017 * BenedictosierralarissaIngaoswaldo Ibrahim, SPEECH COACH - 05/26/2017 9:11 AM EST Cardiac Surgery Progress Note: ID: [id number] Noah Dumont is a 47yo female s/p [...] Hemodynamics: CO CI - 2.8 PA - 27/14 CVP 8 Drips: Nicardipine off 6:30a I/O [...] 24 -- 25 25 BUN 14 -- * 18 CREATININE 0.65* -- 0.85 0.86 CALCIUM [...] strict I+O Renal:replete K+ as per protocol ID:peña-op cefuroxime Heme:daily ASA, start coumadin today with daily INR, start heparin infusion AntiXa protocol Endo:insulin infusion as per protocol Dispo:CVCC, full code DW Attending Surgeon on rounds. Signed: Verónica Watters APRN [facility] Section of Cardiac Surgery Date: 05/26/2017 [...] Progress Note Patient Name: Noah Dumont Service: TESTING MACHINE OPERATOR / PA Responsible Attending: Bienvenido Wong MD [...] ??? [JUN Hold] heparin 900 Units/hr (05/25/17 9315) PRN Meds:vancomycin, [JUN Hold] heparin (porcine), [JUN [...] vitals reviewed. Lab Comments: Recent Labs 05/25/178 05/24/178 05/23/17 0050 WBC 5.8 6.4 7.5 HGB 12.4 12.5 12.4 HCT 35.8 35.0* 34.9* PLATELET 158 163 163 Recent Labs 05/23/17 0050 INR 1.2* Recent Labs 05/25/178 05/24/17 0358 05/23/17 0050 NA 142 141 141 K 4.1 4.3 4.0 CL 102 103 102 CO2 25 25 26 BUN 18 22* CREATININE 0.85 0.86 0.83 No results for input(s): AST, ALT, ALKPHOS, BILITOT, BILIDIR in the last 168 hours. Recent Labs 05/25/1734705/24/178 05/23/17 0050 CALCIUM 9.0 9.4 8.8 Recent [...] Discussed with Bienvenido Wong MD Janette Stender, SPEECH COACH 05/25/2017 Cardiology Attending Note I interviewed and [...] all four extremities spontaneously Recent Labs 05/25/17 0348 05/24/17 1046 05/24/17 0358 05/23/17 [...] 122* 111* 126* 95* Recent Labs 05/25/17 0348 05/24/17 0358 05/23/17 [...] EST Inpatient Cardiology Progress Note Patient Name: Naoh Duomnt Service: TESTING MACHINE OPERATOR / PA Responsible Attending: Bienvenido Wong MD [...] See remainder of report for additional findings RH, coronary angiography 05/20/17: Conclusions: * Normal coronary [...] Patient went to the ED at an [facility] due to chest discomfort and progressive shortness of breath and was transferred here to [facility] for pre-op management. LHC completed and showed [...] Progress Note Patient Name: Noah Dumont Service: TESTING MACHINE OPERATOR / PA Responsible Attending: Bienvenido Wong MD [...] with PCW 3, given IV fluids in chemical lab supervisor 7. Severe aortic regurg Echo (results above) [...] Progress Note Patient Name: Noah Dumont Service: TESTING MACHINE OPERATOR / PA Responsible Attending: Bienvenido Wong MD [...] 2004 and 2011 Cardiac catheterization 04/01/12: RAP-13 PAP-30/17/, PCWP-13, CO/CI-4.12/2.23; [...] 60%, no RWMA Cardiac catheterization 07/16/04: RAP-1 PAP-21/08/09, PCWP- 2, [...] night, resolved this morning. No bowel movement. [place] crampy. No unusual food consumption. Pepto-Bismol given. [...] with PCW 3, given IV fluids in chemical lab supervisor 7. Severe aortic regurg Echo (results above) [...] lorazepam and tylenol. Ambulating and awaiting AVR. Bienvenido Wong MD This patient meets or has met medical criteria to require an inpatient level of care, i.e. a minimum of two midnights in the hospital with multiple complex problems. * Teetee Helm - 05/21/2017 12:22 PM EST Vince Encounter Note Patient Name: Noah Dumont : [id number] MR#: [id number] Admit Date: 05/17/2017 10:57 PM Hospital Day 4 days Narrative: Noah's surgery has been postponed until Thursday (05/25). She had a cardiac cath through her arm yesterday and told me about that experience which was painful for her. She has been here about week. Noah is from [facility] and her , Cale, has been able to visit a few times although finding transportation can be difficult. Cale works at [employer] in [facility] and Noah is concerned about him missing too much work and not earning money while he is here and not working. She has support fromher parents, in [facility] [place] and a sister in [place] with whom she talks on the phone. She didn't mention if her children, a son and daughter, have visited. They are in their late teens, early 20s. 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 Her boss there, Angelito, [...] support by Angelito and his ministry in [facility]. She is soothing herself with writing [...] Progress Note Patient Name: Noah Dumont Service: TESTING MACHINE OPERATOR / PA Responsible Attending: Jeff Hernadez MD [...] with Jeff Hernadez MD. NEHEMIAH De SouzaC 05/21/2017 CARDIOLOGY ATTENDING NOTE Patient: Noah Dumont [...] problems to display. JEFF HERNADEZ MD Pager [phone] * Vikki Barron PA - 05/21/2017 7:23 AM EST Images from the original note were not included. Inpatient Cardiology Progress Note Patient Name: Noah Dumont Service: TESTING MACHINE OPERATOR / PA Responsible Attending: Jeff Hernadez MD [...] 1934 in 12/12; rituxan 04/14/08 and 05/01/08; 1/10 ??? Hypertension Resolved Hospital Problems Diagnosis Date [...] v m Ao 99 31 Assessment: Noah uDmont is a 47 y.o. female with known [...] PCW 3, given IV fluids yesterday in chemical lab supervisor 7. Severe aortic regurg Echo (results above) [...] Progress Note Patient Name: Noah Dumont Service: TESTING MACHINE OPERATOR / PA Responsible Attending: Jeff Hernadez MD [...] affect. Vitals reviewed. Lab Comments: Recent Labs 05/20/1751205/19/17 0535 05/18/17 0659 WBC 6.0 5.6 4.7 [...] patient was discussed with Jeff Hernadez MD. JANET De Souza-C 05/20/2017 CARDIOLOGY ATTENDING NOTE Patient: Noah Dumont [...] problems to display. JEFF HERNADEZ MD Pager [phone] * Jeff Hernadez MD - 05/19/2017 8:28 [...] he is now seeing Dr Alegre at [facility], who now presents with hemodynamic and symptomatic [...] ??? Chest pain Cardiac catheterization 04/01/12: RAP-13 PAP-/, PCWP-13, CO/CI-4.12/2.23; LVEF 60% infero-apical akinesis, inferior [...] treated with cyclophosamide, steroids and rituximab. rituxan 2/08 with CD 1936 in 12/12; rituxan 04/14/08 [...] minimumof two midnights or is on the [facility] inpatient only procedure list (status C) due to: chest pain, hemodynamic significant AI needing urgent evaluation. JEFF HERNADEZ MD Pager [phone] * Jeff Hernadez MD - 05/19/2017 7:37 AM EST Images from the original note were not included. Inpatient Cardiology Progress Note Patient Name: Noah Dumont Service: TESTING MACHINE OPERATOR / PA Responsible Attending: Jeff Hernadez MD [...] 60%, no RWMA Cardiac catheterization 07/16/04: RAP-1 PAP-18//, PCWP- 2, [...] onset symptoms SOB when walking [place] around [facility] -cath delayed due to prolonged INR [...] affect. Lab Comments: Recent Labs 05/19/17 0535 05/18/1759 05/18/17 0036 WBC 5.6 4.7 4.5 HGB [...] 0.4 BILIDIR 0.1 Recent Labs 05/19/17 0535 05/18/1759 05/18/17 0036 CALCIUM 9.7 8.9 9.2 MAGNESIUM [...] cause bradycardia On ADRIA inhibitor Melody Collins APRN Nurse Practitioner-Department of Cardiology Kathleen. Ann. Pager [phone] Phone number: [phone] Fax number [phone] GI prophylaxis On famotidine DVT prophylaxis INR 2.8 I have discussed this patient with attending Dr. Jeff COLLINS APRN 05/19/2017 CARDIOLOGY ATTENDING NOTE Patient: Noah Dumont [...] problems to display. JEFF HERNADEZ MD Pager [phone] * Teetee Helm Bere - 05/18/2017 5:10 PM EST Clinical Education Coordinator Encounter Note Patient Name: Noah Dumont : [id number] MR#: [id number] Admit Date: 05/17/2017 10:57 PM Hospital Day 1 day Narrative: Noah is from [facility]. She has visited me the stone finisher office at [facility] when she is there for blood draws and other appointments. She stopped by recently to tell meabospencer the scheduled surgeries for her here and asked me to visit her here.Her was visiting,but she sent him home. 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 Time in Direct Care: Bere Helm 05/18/2017 * Jeff Hernadez MD - [...] remote past, now seeing Dr Alegre at [facility], who now presents with hemodynamic and symptomatic [...] ??? Chest pain Cardiac catheterization 04/01/12: RAP-13 PAP-30/, PCWP-13, CO/CI-4.12/2.23; LVEF 60% infero-apical akinesis, inferior [...] minimumof two midnights or is on the [facility] inpatient only procedure list (status C) due to: chest pain, hemodynamic significant AI needing urgent evaluation. JEFF HERNADEZ MD Pager [phone] * Melody Collins APRN - 05/18/2017 7:06 AM EST Images from the original note were not included. Inpatient Cardiology Progress Note Patient Name: Noah Dumont Service: TESTING MACHINE OPERATOR / PA Responsible Attending: Jeff Hernadez MD [...] onset symptoms SOB when walking [place] around [facility] Review of Systems: Review of Systems [...] Recent Labs 05/18/1735 INR 2.8* Recent Labs 05/18/176 05/13/17 1404 NA 144 143 K 3.9 4.0 CL 105 102 CO2 27 28 BUN 12 14 CREATININE 0.80 0.78 Recent Labs 05/18/1735 AST 15 ALT 9 ALKPHOS 77 BILITOT 0.4 BILIDIR 0.1 Recent Labs 05/18/17 0036 05/13/17 1404 CALCIUM 9.2 9.2 MAGNESIUM 0.73 -- PHOS 3.7 -- Recent Labs 05/18/1735 CK 76 TROPONINT <0.01 Pertinent Radiographic/Diagnostic Results: [...] APRN Nurse Practitioner-Department of Cardiology [email or web address] Pager [phone] Phone number: [phone] Fax number [phone] GI prophylaxis On famotidine DVT prophylaxis INR 2.8 I have discussed this patient with attending Dr. Jeff COLLINS APRN 05/18/2017 * Linda Almonte RN - 05/18/2017 5:57 AM EST OUTCOME EVALUATION NOTE: OUTCOME SUMMARY: Patient arrived from [facility]. Telemetry initiated and pt oriented to room and call dowell system. VSS on RA. Diastolic BP MD shashank aware. EKG obtained. Admit labs drawn. PRN [...] night, persisted until yesterday and went to [facility]) ER yesterday afternoon.She has been having worsening [...] afternoon and she decided to go to [facility] ER with the help of her . In the ER her troponins were negative and no acute ECG changes, she was anxious and her symptoms relieved after a dose of morphine and ativan. After discussing with Dr Robles and cardiology team she got transferred to [facility] for further evaluation and to expedite her [...] the stool . Labs and Imaging from [facility]; Vitals on arrival;Bp; 137/44; Pr; 87; O2 [...] (systemic lupus erythematosus) Previous Diagnostics: Echo from [facility];04/30/2017. LVEF; 50-53%(Biplane) Ao Root; 3.48cm LVID; [...] uniform and high volume, no calf tenderness Neuro/HAM STRIPPER: AAO x 3, No evident deficits Skin/Integumentary: No rash Diagnostics: EKG; Dynamic changes compared to the ecg from [facility]; Sinus rhythm, Q waves in inferior [...] symptomatic AR and chest pain transferred to [facility] for further evaluation and follow up. 1; [...] abnormality. Ecg has some changes compared to [facility] ,but doesn't meet the criteria for [...] care . Andrea Stewart MD Provider #: [id number] 05/18/2017 * Andrea Stewart MD - 05/17/2017 [...] night, persisted until yesterday and went to [facility]) ER yesterday afternoon.She has been having worsening [...] afternoon and she decided to go to [facility] ER with the help of her . In the ER her troponins were negative and no acute ECG changes, she was anxious and her symptoms relieved after a dose of morphine and ativan. After discussing with Dr Robles and cardiology team she got transferred to [facility] for further evaluation and to expedite her [...] the stool . Labs and Imaging from [facility]; Vitals on arrival;Bp; 137/44; Pr; 87; O2 [...] (systemic lupus erythematosus) Previous Diagnostics: Echo from [facility];04/30/2017. LVEF; 50-53%(Biplane) Ao Root; 3.48cm LVID; [...] uniform and high volume, no calf tenderness Neuro/HAM STRIPPER: AAO x 3, No evident deficits Skin/Integumentary: No rash Diagnostics: EKG; Dynamic changes compared to the ecg from [facility]; Sinus rhythm, Q waves in inferior [...] symptomatic AR and chest pain transferred to [facility] for further evaluation and follow up. 1; [...] abnormality. Ecg has some changes compared to [facility] ,but doesn't meet the criteria for [...] Ongoing (Interventions Implemented as Appropriate) 05/28/17 1510 05/28/17213905/29/17 0900 Daily Care Interventions Self-Care Promotion independence [...] Control Outcome: Ongoing (Interventions Implemented as Appropriate) 05/28/172139 Safety Interventions Isolation Precautions standard precautions maintained [...] Appropriate) 05/25/17 0258 Interdisciplinary Rounds/Family Conf Participants housing case manager;family;advanced practice nurse;nursing;occupational therapy;patient;physician Problem: Cardiac [...] Outcome (s) achieved Date Met: 05/29/17 05/29/17 8235 Plan of Care Review Progress improving Coping/Psychosocial Plan Of Care Reviewed With patient Physical Therapy Assessment Treatment Number PT: 3 Pt seen for functional mobility, strength, endurance and pt education. Pt ambulated 160' around unit with no AD needed and slow gait speed. Ascended/descended 12 stairs with itfv-zolm-hkir technique with no LOB or complaint of [...] assist for bed mobility until returning to [facility]. Please see the Rehab Evaluation Summaries report [...] home with assist, home with home health ALEX Oneil Pager: [phone] Inpatient Physical Therapy SPTA observed while treating patient and POC and Rx discussed prior to Rx. Ailin Oliva PTA Pager: [phone] Problem: Acute Rehab Services Goal & Intervention Plan Goal: Bed Mobility Goal Stand Alone Therapy Goal Outcome: Outcome (s) achieved Date Met: 05/29/17 05/27/17 1508 05/29/17 1409 Bed Mobility Goal Bed Mobility Goal, Date Established 05/27/17 -- Bed Mobility Goal, Time to Achieve 5 days -- Bed Mobility Goal, Activity Type supine to sit/sit to supine -- Bed Mobility Goal, [place] Level independent -- Bed Mobility Goal, Outcome Achieved -- goal met Goal: Gait Training Goal Stand Alone Therapy Goal Outcome: Outcome (s) achieved Date Met: 05/29/17 05/27/17 1508 05/29/17 1409 Gait Training Goal Gait Training Goal, Date Established 05/27/17 -- Gait Training Goal, Time to Achieve 5 days -- Gait Training Goal, [place] Level supervision required -- Gait Training Goal, Assist Device (LRD) -- Gait Training Goal, Distance to Achieve 300 ft -- Gait Training Goal, Additional Goal Pt up and down 23 stairs with rail and supervision -- Gait Training Goal, Outcome -- goal met Goal: Physical Therapy Goal Stand Alone Therapy Goal Outcome: Outcome (s) achieved Date Met: 05/29/17 05/27/17 1508 05/29/17 1409 Physical Therapy Goal PT Goal, Date Established [...] days -- Transfer Training Goal, Activity Type wxw-ut-jwkxq/xgcxl-kc-jgo;yqc-pb-ajljo/pfrnn-pr-uil -- Transfer Train Goal, [place] Level supervision required -- Transfer Training Goal, Assist Device (LRD) -- Transfer Training Goal, Outcome -- goal met * Consult Note - Stephanie Chandra RN - 05/29/2017 10:19 AM EST [facility] CARDIAC REHABILITATION Noah Dinesh Emersonon was seen today regarding participation in the outpatient Phase [address] [facility] . The patient agrees to a referral [...] Handling Outcome: Ongoing (Interventions Implemented as Appropriate) 05/27/179 05/28/17 1510 05/28/172025 Daily Care Interventions Self-Care Promotion [...] Assistive Device Utilized standard walker -- -- 05/28/172139 Daily Care Interventions Self-Care Promotion -- Delgado Fall Risk History of Falling 25 Secondary [...] Appropriate) 05/25/17 0258 Interdisciplinary Rounds/Family Conf Participants housing case manager;family;advanced practice nurse;nursing;occupational therapy;patient;physician Problem: Cardiac [...] outcome * Plan of Care - Harvey aBhena RN - 05/28/2017 9:46 PM EST Problem: Patient Care Overview Goal: Plan of Care Review Outcome: Ongoing (Interventions Implemented as Appropriate) 05/28/17 2142 Plan of Care Review Progress improving Coping/Psychosocial [...] Outcome: Ongoing (Interventions Implemented as Appropriate) 05/27/17211805/28/1710905/28/17 08 Daily Care Interventions Self-Care Promotion -- independence [...] Appropriate) 05/25/17 0258 Interdisciplinary Rounds/Family Conf Participants housing case manager;family;advanced practice nurse;nursing;occupational therapy;patient;physician Problem: Cardiac [...] Disposition: home with assist ALEX Oneil Pager: [phone] Inpatient Physical Therapy SPTA observed while treating patient and POC and Rx discussed prior to Rx. Ailin Oliva PTA Pager: [phone] Problem: Acute Rehab Services Goal & Intervention Plan Goal: Bed Mobility Goal Stand Alone Therapy Goal Outcome: Ongoing (Interventions Implemented as Appropriate) 05/27/17 1508 05/28/17 1013 Bed Mobility Goal Bed Mobility Goal, Date Established 05/27/17 -- Bed Mobility Goal, Time to Achieve 5 days -- Bed Mobility Goal, Activity Type supine to sit/sit to supine -- Bed Mobility Goal, [place] Level independent -- Bed Mobility Goal, Outcome Achieved -- goal ongoing Goal: Gait Training Goal Stand Alone Therapy Goal Outcome: Ongoing (Interventions Implemented as Appropriate) 05/27/17 1508 Gait Training Goal Gait Training Goal, Date Established 05/27/17 Gait Training Goal, Time to Achieve 5 days Gait Training Goal, [place] Level supervision required Gait Training Goal, Assist [...] 5 days Transfer Training Goal, Activity Type ury-rh-qgdmz/yfdpl-hh-frn;zht-bx-srsnp/vocqj-bz-iyl Transfer Train Goal, [place] Level supervision required Transfer Training Goal, Assist [...] Ongoing (Interventions Implemented as Appropriate) 05/27/17211805/28/17 0000 05/28/17 0110 Daily Care Interventions Self-Care Promotion -- [...] care. Outcome: Ongoing (Interventions Implemented as Appropriate) 05/28/17109 Skin Integrity Impairment, Risk/Actual (Adult) Skin Integrity/Wound Healing making progress toward outcome * Plan of Care - Maribel Mary, PT - 05/27/2017 3:15 PM EST Problem: Patient Care Overview Goal: Plan of Care Review Outcome: Ongoing (Interventions Implemented as Appropriate) 05/27/17 8968 Coping/Psychosocial Plan Of Care Reviewed With patient Physical Therapy Treatment Number PT: 1 Pertinent History of Current Problem: S/p mechanical AVR. Pmhx: SLE, lupus anticoagulant, antiphospholipid syndrome, CVA age 21, HTN, HLD, hypothyroid, GERD, JAN, amenorrhea 10 years following uterine ablation Living Environment Comment: Pt lives with her in an apartment with 23 steps to enter with rail. 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 Pt works during the day but son comign to stay to assist upon d/c. Precautions/Restrictions: sternal, fall Precautions Comments: 2L O2 Vital Signs During Session: Heart Rate: 98 BP: 104/44 SpO2: 94 % O2 Flow Rate (L/min): 2 L/min O2 Device: Nasal cannula Pt seen this AM in the CV for evaluation. Pt is POD# 2. Pt presents with impaired cough, impairedbreathing mechanics, impaired transfers, impaired gait, new O2 requirements and requires cues for sternal precautions. Pt able to ambulate around [facility] today with 1 assist with vitals WNL's [...] home with assist MARIBEL MARY, PT Pager: [phone] Inpatient Physical Therapy 2017 PT Evaluation Code [...] to sit/sit to supine Bed Mobility Goal, [place] Level independent Goal: Gait Training Goal Stand Alone Therapy Goal Outcome: Ongoing (Interventions Implemented as Appropriate) 05/27/17 1508 Gait Training Goal Gait Training Goal, Date Established 05/27/17 Gait Training Goal, Time to Achieve 5 days Gait Training Goal, [place] Level supervision required Gait Training Goal, Assist [...] 5 days Transfer Training Goal, Activity Type znm-me-pbyni/nzpps-np-hcg;lyd-io-jyawk/vbmcj-ub-dee Transfer Train Goal, [place] Level supervision required Transfer Training Goal, Assist Device (LRD) * Plan of Care - Asia Deleon RN - 05/27/2017 4:39 AM EST Problem: Patient Care Overview Goal: Individualization & Mutuality Outcome: Ongoing (Interventions Implemented as Appropriate) 05/27/17436 Individualization Patient Specific Preferences call me Noah [...] Operative Note Patient Name: Noah Dumont : [id number] MR#: [id number] Case Date: 05/25/2017 Surgeon: Surgeon(s) and Role: * Kuldeep Conner MD - Primary * Carmelo Manzo PA - Physician Auto Job Estimator Preoperative diagnosis: ai Postoperative diagnosis: ai Aortic [...] 9:38 AM EST 05/26/2017 Noah Dumont 1970 [id number] Preoperative Diagnosis: Symptomatic aortic regurgitation Postoperative Diagnosis: Symptomatic aortic regurgitation Procedure: Aortic valve replacement: Mechanical 27 mm Surgeon: Kuldeep Conner M.D. Auto Job Estimator: Delfin LOPEZ Anesthesia: General endotracheal anesthesia Drains: [...] tested and the heart was de- aired. Pohen from bypass. The venous cannula was removed [...] applied. The patient was transported to the [facility] on le[facility]. All counts were correct. * [...] soft, heparin gtt maintained at 900, normal Pxdn70d x2, per MD. Urine continues to be [...] me updated Goal: Fall Prevention-Safe Patient Handling 05/24/17 1925 05/24/17 2200 Delgado Fall Risk History of Falling [...] Device Utilized -- none Goal: Infection Control 05/24/17 1925 Safety Interventions Isolation Precautions standard precautions maintained [...] Conf 05/25/17 0258 Interdisciplinary Rounds/Family Conf Participants housing case manager;family;advanced practice nurse;nursing;occupational therapy;patient;physician * Consult Note - Alfonso Casey MD - 05/24/2017 4:34 PM EST UROLOGY CONSULTATION H&P I have been asked to see the patient by Dr. ADAMS, DERECK HERNADEZ, BIENVENIDO LOPEZ for evaluation and recommendations of hematuria. HPI: [...] not included. Hematology Consult Noah Dumont 1970 [id number] Consult: preop anticoagulation, requested by Cardiac Surgery [...] M.D., M.S. Hematology & Oncology Fellow Pager: [phone]*+*+*+*+*+*+*+*+*+*+*+*+*+*+*+*+*+*+*+*+*+*+*+*+*+*+*+*+*+*+*+*+*+*+*+*+*+* Thrombosis Attending Physician I have independently [...] Ongoing (Interventions Implemented as Appropriate) 05/21/17 0648 05/23/171999 Plan of Care Review Progress no [...] Outcome: Ongoing (Interventions Implemented as Appropriate) 05/21/1748 05/22/172005 Plan of Care Review Progress no [...] Ongoing (Interventions Implemented as Appropriate) 05/21/17 0648 05/21/172025 Plan of Care Review Progress no change [...] Outcome: Ongoing (Interventions Implemented as Appropriate) 05/17/17 2300 05/18/17202905/19/17 0800 Delgado Fall Risk History of Falling [...] Control Outcome: Ongoing (Interventions Implemented as Appropriate) 05/18/172029 Safety Interventions Isolation Precautions standard precautions maintained Infection Prevention environmental surveillance performed;personal protective equipment utilized;rest/sleep promoted;single patient room provided Coping Strategies Supportive Measures self-care encouraged Goal: Discharge Needs Assessment Outcome: Ongoing (Interventions Implemented as Appropriate) 05/18/17313 Discharge Needs Assessment Concerns To Be Addressed [...] further details. MELODY COLLINS APRN 05/18/2017 Pager [phone] * Consult Note - Kelle Glass RN - 05/18/2017 10:08 AM EST Called to patients room for PIV assessment and potential replacement. Echo team in room, and will not be needing to use this line. RN Pebbles is aware and will repage for New [...] night, persisted until yesterday and went to [facility] ER yesterday afternoon.She has been having worsening [...] & Family Supports/Community Resources: parents, , friends, [employer] Behavioral Health History: anxiety, depression history (returned to [facility] because of weight gain) Substance Use/Abuse: Denies Other Pertinent/Service Specific Information: none Health/Prescription Coverage: Primary Insurance: MEDICARE Secondary Insurance: [place] Medicaid with spenddown Prescription Coverage: yes Preferred Pharmacy: [facility] Other: none Primary Care Provider: Mckenna Genao, SUELLEN [phone] Patient/Caregiver Goals of Treatment: 'to get feeling [...] transition of care planning. ADRIANA Espinoza Pager: [phone] documented in this encounter Plan of Treatment Upcoming Encounters Date Type Department Care Team (Late st Contact Info) Description 11/11/2023 3:00 AM EDT [place] [phone] Scheduled Orders Name Type Priority [...] IMPLANTABLE DEVICES SCAN 05/31/2017 12:00 AM EST AIRCRAFT ELECTRICAL SYSTEMS SPECIALIST SCAN 05/31/2017 12:00 AM EST AIRCRAFT ELECTRICAL SYSTEMS SPECIALIST SCAN 05/31/2017 12:00 AM EST POCT GLUCOSE [...] XR CHEST PA AND LATERAL Timed 05/28/19 18 12:22 PM EST POCT GLUCOSE Routine 05/28/2017 11:32 AM EST POCT GLUCOSE Routine 05/28/2017 8:11 AM EST HEMOGRAM Routine 05/28/2017 4:21 AM EST DIFFERENTIAL, AUTOMATED Routine 05/28/19 18 4:21 AM EST PROTHROMBIN TIME Routine 05/28/2017 [...] 9:40 AM EST DIFFERENTIAL, AUTOMATED STAT 05/26/19 18 9:40 AM EST APTT STAT 05/26/2017 9:40 [...] Routine 05/26/19 4:00 AM EST CARDIAC ENZYMES ([facility]) Routine 05/26/2017 4:00 AM EST CREATININE Routine [...] 3:48 AM EST DIFFERENTIAL, AUTOMATED STAT 05/25/19 18 3:48 AM EST HEPARIN, LOW MOLECULAR WEIGHT ASSAY Routine 05/25/2017 3:48 AM EST CBC (WITH DIFF) STAT 05/25/2017 3:48 AM EST ABORH RECHECK STATUS Timed 05/24/2017 8:27 PM EST ABO/RH TYPING Timed 05/24/2017 8:27 PM EST HEPARIN, LOW MOLECULAR WEIGHT ASSAY Routine 05/24/2017 8:27 PM EST ANTIBODY SCREEN Timed 05/24/2017 8:27 PM EST TYPE AND SCREEN ([facility]/ARIANNE) Timed 05/24/2017 8:27 PM EST HEPARIN, LOW [...] 12:50 AM EST DIFFERENTIAL, AUTOMATED Routine 05/23/19 18 12:50 AM EST APTT Timed 05/23/2017 12:50 [...] 5:46 AM EST DIFFERENTIAL, AUTOMATED Routine 05/22/19 18 5:46 AM EST APTT STAT 05/22/2017 5:46 [...] 5:35 AM EST DIFFERENTIAL, AUTOMATED Routine 05/19/19 18 5:35 AM EST PROTHROMBIN TIME Routine 05/19/2017 5:35 AM EST CBC (WITH DIFF) Routine 05/19/2017 5:35 AM EST CARDIAC ENZYMES ([facility]) Routine 05/18/2017 12:35 PM EST ECHO COMPLETE Routine 05/18/2017 10:55 AM EST Other chest pain Aortic insufficiency due to bicuspid aortic valve XR CHEST PA AND LATERAL Routine 05/18/19 18 9:08 AM EST BMP W/FASTING GLUCOSE Routine 05/18/2017 6:59 AM EST HEMOGRAM Routine 05/18/2017 6:59 AM EST DIFFERENTIAL, AUTOMATED Routine 05/18/19 18 6:59 AM EST CARDIAC ENZYMES ([facility]) Routine 05/18/2017 6:59 AM EST APTT Routine 05/18/2017 6:59 AM EST PROTHROMBIN TIME Routine 05/18/2017 6:59 AM EST CBC (WITH DIFF) Routine 05/18/2017 6:59 AM EST EKG 12-LEAD STAT 05/18/2017 1:33 AM EST Other chest pain BMP W/FASTING GLUCOSE Routine 05/18/2017 12:36 AM EST HEMOGRAM Routine 05/18/2017 12:36 AM EST DIFFERENTIAL, AUTOMATED Routine 05/18/19 18 12:36 AM EST CARDIAC ENZYMES ([facility]) Routine 05/18/2017 12:36 AM EST APTT Routine [...] 2:52 PM EDT Procedure: ?Transthoracic Echocardiogram Patient: ?JULIA Montiel ? (Age): 1970(47y) Med Rec#: ? [id number] ?Sex: ?F ? Site Loc: ? [facility] ?Ht / Wt: ??162.56(cm)/69.8 Pt. Loc: ?Echo Lab ?BSA: ?1.75 Study Date: ?? 06/30/2017 ?Pt. Type: Outpatient Tape: ? Referring: Kuldeep Conner Referring: MILIND Reading: Dereck Adams ([id number]) Wireless Team Member: Anita Guerra [facility] Diagnosis: *ICD-10-PCS Presence of other heart-valve replacement [...] E-wave Vmax ?0.9 ?m/sec ? MV deceleration [id number] ?msec ? MV A-wave Vmax ?0.8 ?m/sec [...] ? Pulmonic Valve/Qp:Qs ?Value ?Units (Range) ? OH end-diastolic Vma0.9 ?m/sec ? PA end-diastolic pre6.3 ?mmHg ? Wall Motion: Segment Name ?Rest ? Base-Anteroseptal ?? Normal ? Base-Anterior ? Normal ? Base-Anterolateral ??Normal ? Base-Posterolateral Normal ? Base-Inferior ? Normal ? Base-Inferoseptal ?? Normal ? Mid-Anteroseptal ?Normal ? Mid-Anterior ?Normal ? Mid-Anterolateral ?? Normal ? Mid-Posterolateral ??Normal ? Mid-Inferior ?Normal ? Mid-Inferoseptal ?Normal ? [place]-Septal ? Normal ? [place]-Anterior ? Normal ? [place]-Lateral ?Normal ? [place]-Inferior ? Normal ? [place]-Tip ?Normal ? This report has been electronically signed by: Dereck Adams MD ? 06/30/2017 14:52:10 Images reviewed and interpretation verified [facility] Cardiac Ultrasound Laboratory Procedure Note Dereck Adams MD - 06/30/2017 Procedure: Transthoracic Echocardiogram Patient: JULIA Montiel (Age): 1970(47y) Med Rec#: [id number] Sex: F Site Loc: [facility] Ht / Wt: 162.56(cm)/69.8 Pt. Loc: Echo Lab BSA: 1.75 Study Date: 06/30/2017 Pt. Type: Outpatient Tape: Referring: Kuldeep Conner Referring: [email or web address] Reading: Dereck Adams ([id number]) Wireless Team Member: Anita Guerra [facility] Diagnosis: *ICD-10-PCS Presence of other heart-valve replacement [...] MV E-wave Vmax 0.9 m/sec MV deceleration [id number] msec MV A-wave Vmax 0.8 m/sec MV [...] 25 mmHg Pulmonic Valve/Qp:Qs Value Units (Range) OH end-diastolic Vma0.9 m/sec PA end-diastolic pre6.3 mmHg Wall Motion: Segment Name Rest Base-Anteroseptal Normal Base-Anterior Normal Base-Anterolateral Normal Base-Posterolateral Normal Base-Inferior Normal Base-Inferoseptal Normal Mid-Anteroseptal Normal Mid-Anterior Normal Mid-Anterolateral Normal Mid-Posterolateral Normal Mid-Inferior Normal Mid-Inferoseptal Normal [place]-Septal Normal [place]-Anterior Normal [place]-Lateral Normal [place]-Inferior Normal [place]-Tip Normal This report has been electronically signed by: Dereck Adams MD 06/30/2017 14:52:10 Images reviewed and interpretation verified [facility] Cardiac Ultrasound Laboratory Kuldeep Conner MD ECHO [...] SCAN EXT O RDR/RSLT * SCAN DOC: AIRCRAFT ELECTRICAL SYSTEMS SPECIALIST (05/31/2017 12:00 AM EST) Anatomical Region Laterality Modality Other Narrative 05/31/2017 12:00 AM EST Ordered by an unspecified provider. Scanning Provider MEDIA MGR SCAN EXT O RDR/RSLT * SCAN DOC: AIRCRAFT ELECTRICAL SYSTEMS SPECIALIST (05/31/2017 12:00 AM EST) Anatomical Region Laterality Modality Other Narrative 05/31/2017 12:00 AM EST Ordered by an unspecified provider. Scanning Provider MEDIA MGR SCAN EXT O RDR/RSLT * POCT Glucose (05/30/2017 7:43 AM EST) Pathologist [facility] POC Glucose 105 65 - 199 mg/dL [facility] Comment: Supplemental ranges: <140 mg/dL before meals <180 mg/dL all other times of the day Blood specimen (specimen) 05/30/2017 7:43 AM EST 05/30/2017 7:43 AM EST Kuldeep Conner MD POINT OF CARE TEST ORDERABLES [facility] [place] [address] * Heparin, low molecular weight assay (05/30/2017 4:00 AM EST) Heparin Mesf44m 0.30 IU/mL [facility] Comment: Guidelines for therapeutic unfractionated and [...] APRN HEMATOLOGY ORDERAB LES Performing Organization Address City/State/[facility] Co de Phone Number [facility] [place] [address] * (ABNORMAL) Differential, Automated (05/30/2017 4:00 AM EST) Neutrophils % 68.3 % [facility] Neutr Abs (ANC) 6.22(H) 1.70 - 6.10 x10(3)/mc L [facility] Lymphocytes % 18.0 % [facility] Lymphocytes Abs 1.6 0.9 - 3.2 x10(3)/mc L [facility] Monocytes % 8.7 % [facility] Monocyte Abs 0.8 0.3 - 0.9 x10(3)/[facility] LABOR[facility] Eosinophils % 4.0 % [facility] Eosinophils Abs 0.4 0.0 - 0.4 x10(3)/[facility] Basophils % 0.3 % [facility] Basophils Abs 0.0 0.0 - 0.1 x10(3)/[facility] LABORATORY Immature Gran % 0.70 % [facility] Comment: Immature granulocytes(IG's)percentage and absolute count will include metamyelocytes, myelocytes, and promyelocytes. Blood smears from CBCs yielding IG's will be scanned manually for concordance. If this scan disagrees with the automated IG or if promyelocytes are noted, a manual differential will be performed. [place] Gran Abs 0.06(H) 0.00 - 0.04 x10(3)/[facility] Blood specimen (specimen) 05/30/2017 4:00 AM EST 05/30/2017 4:34 AM EST Narrative Resulting Agency Comment Spec In Lab Verónica Watters APRN HEMATOLOGY ORDERAB LES [facility] [place] [address] * (ABNORMAL) Hemogram (05/30/2017 4:00 AM EST) WBC 9.1 4.0 - 9.5 x10(3)/[facility] LAB[facility]ATORY RBC 2.63(L) 4.00 - 5.21 x10(6)/[facility]ORY Hemoglobin 8.8(L) 11.7 - 15.5 gm/dL [facility] Hematocrit 24.8(L) 35.7 - 45.8 % [facility] M[facility] 94.3 82.6 - 94.4 fL [facility] MCH 33.5(H) 27.1 - 32.0 pg [facility] MCHC 35.5(H) 31.7 - 35.0 gm/dL [facility] Platelets 166 145 - 357 x10(3)/[facility] LABORATORY RDWSD 43.8 37.0 - 46.0 White [facility] LABORATORY RDWCV 12.8 11.5 - 14.1 % [facility] MPV 11.2 7.6 - 12.9 [facility] LABORATORY nRBC % Auto 0.0 % [facility] LABORATORY nRBC Abs Auto 0.000 0.000 - 0.000 x10(3)/[facility] LABORATORY Blood specimen (specimen) 05/30/2017 4:00 AM EST 05/30/2017 4:34 AM EST Narrative Resulting Agency Comment Spec In Lab Verónica Watters APRN HEMATOLOGY ORDERAB LES Performing Organization Address [facility] Co de Phone Number [facility] [place] [address] * Potassium (05/30/2017 4:00 AM EST) Pathologist [facility] [place] Potassium 3.8 3.5 - 5.0 mmol/L [facility] Comment: Please note: ??Patients [...] APRN CHEMISTRY ORDERABL ES Performing Organization Address [facility]/[facility] Co de Phone Number [facility] [place] [address] * (ABNORMAL) Prothrombin Time (05/30/2017 4:00 AM EST) PT 28.8(H) 11.8 - 14.0 sec [facility] INR 2.7(H) 0.9 - 1.1 [facility] LABORATORY Comment: An INR <2.0 [...] APRN HEMATOLOGY ORDERAB LES Performing Organization Address [facility] [place]/[facility] Co de Phone Number [facility] [place] [address] * POCT Glucose (05/29/2017 8:18 PM EST) POC Glucose 110 65 - 199 mg/dL [facility] Comment: Supplemental ranges: <140 mg/dL before meals <180 mg/dL all other times of the day Blood specimen (specimen) 05/29/2017 8:18 PM EST 05/29/2017 8:18 PM EST Kuldeep Conner MD POINT OF CARE TEST ORDERABLES Performing Organization Address [facility] Co de Phone Number [facility] [place] [address] * Heparin, low molecular weight assay (05/29/2017 4:12 PM EST) Heparin [id number] 0.34 IU/mL [facility] Comment: Guidelines for therapeutic unfractionated and [...] Lab Verónica Watters APRN HEMATOLOGY ORDERAB LES [facility] [place] [address] * POCT Glucose (05/29/2017 4:01 PM EST) POC Glucose 99 65 - 199 mg/dL [facility] Comment: Supplemental ranges: <140 mg/dL before meals <180 mg/dL all other times of the day Blood specimen (specimen) 05/29/2017 4:01 PM EST 05/29/2017 4:01 PM EST Kuldeep Conner MD POINT OF CARE TEST ORDERABLES Performing Organization Address [facility] de Phone Number [facility] [place] [address] * POCT Glucose (05/29/2017 11:52 AM EST) Pathologist [facility] [place] POC Glucose 120 65 - 199 mg/dL [facility] Comment: Supplemental ranges: <140 mg/dL before meals <180 mg/dL all other times of the day Blood specimen (specimen) 05/29/2017 11:52 AM EST 05/29/2017 11:52 AM EST Kuldeep Conner MD POINT OF CARE TEST ORDERABLES Performing Organization Address [facility] de Phone Number [facility] [place] [address] * Heparin, low molecular weight assay (05/29/2017 10:34 AM EST) [facility] Heparin [id number] 0.55 IU/mL [facility] Comment: Guidelines for therapeutic unfractionated and [...] APRN HEMATOLOGY ORDERAB LES Performing Organization Address [facility] Co de Phone Number [facility] [place] [address] * POCT Glucose (05/29/2017 7:43 AM EST) POC Glucose 97 65 - 199 mg/dL [facility] Comment: Supplemental ranges: <140 mg/dL before meals <180 mg/dL all other times of the day Blood specimen (specimen) 05/29/2017 7:43 AM EST 05/29/2017 7:43 AM EST Kuldeep Conner MD POINT OF CARE TEST ORDERABLES Performing Organization Address [facility] Co de Phone Number [facility] [place] [address] * Heparin, low molecular weight assay (05/29/2017 3:23 AM EST) [facility] Signature Heparin [id number] 0.20 IU/mL [facility] Comment: Guidelines for therapeutic unfractionated and [...] APRN HEMATOLOGY ORDERAB LES Performing Organization Address City/[facility]/ZIP Co de Phone Number [facility] [place] [address] * (ABNORMAL) Differential, Automated (05/29/2017 3:23 AM EST) Neutrophils % 72.2 % [facility] LABORAT[facility] Neutr Abs (ANC) 7.37(H) 1.70 - 6.10 x10(3)/ L [facility] Lymphocytes % 16.0 % [facility] LABORAT[facility] Lymphocytes Abs 1.6 0.9 - 3.2 x10(3)/[facility] LABORATORY Monocytes % 7.9 % [facility] LABORATORY Monocyte Abs 0.8 0.3 - 0.9 x10(3)/[facility] LABORATORY Eosinophils % 2.7 % [facility] LABORAT[facility] Eosinophils Abs 0.3 0.0 - 0.4 x10(3)/[facility] LABORATORY Basophils % 0.5 % [facility] LABORATORY Basophils Abs 0.0 0.0 - 0.1 x10(3)/[facility] LABORATORY Immature Gran % 0.70 % [facility] Comment: Immature granulocytes(IG's)percentage and absolute count will include metamyelocytes, myelocytes, and promyelocytes. Blood smears from CBCs yielding IG's will be scanned manually for concordance. If this scan disagrees with the automated IG or if promyelocytes are noted, a manual differential will be performed. [place] Gran Abs 0.07(H) 0.00 - 0.04 x10(3)/[facility] LABORATORY Blood specimen (specimen) 05/29/2017 3:23 AM EST 05/29/2017 3:56 AM EST Narrative Resulting Agency Comment Spec In Lab Verónica Watters APRN HEMATOLOGY ORDERAB LES Performing Organization Address City/[facility]/ZIP Co de Phone Number [facility] [place] [address] * (ABNORMAL) Hemogram (05/29/2017 3:23 AM EST) WBC 10.2(H) 4.0 - 9.5 x10(3)/[facility] LABORATORY RBC 2.63(L) 4.00 - 5.21 x10(6)/[facility] LABORATORY Hemoglobin 8.5(L) 11.7 - 15.5 gm/dL [facility] Hematocrit 25.3(L) 35.7 - 45.8 % [facility] MCV 96.2(H) 82.6 - 94.4 fL [facility] MCH 32.3(H) 27.1 - 32.0 pg [facility] MCHC 33.6 31.7 - 35.0 gm/dL [facility] Platelets 166 145 - 357 x10(3)/[facility] LABORATORY RDWSD 44.2 37.0 - 46.0 [facility] LABORATORY RDWCV 12.7 11.5 - 14.1 % [facility]ORAT[facility] MPV 10.7 7.6 - 12.9 [facility] LABORATORY nRBC % Auto 0.0 % [facility] LABORATORY nRBC Abs Auto 0.000 0.000 - 0.000 x10(3)/[facility] LABORATORY Blood specimen (specimen) 05/29/2017 3:23 AM EST 05/29/2017 3:56 AM EST Narrative Resulting Agency Comment Spec In Lab Verónica Watters APRN HEMATOLOGY ORDERAB LES [facility] [place] [address] * Potassium (05/29/2017 3:23 AM EST) Pathologist [facility] [place] Potassium 3.9 3.5 - 5.0 mmol/L [facility] Comment: Please note: ??Patients [...] APRN CHEMISTRY ORDERABL ES Performing Organization Address [facility] de Phone Number [facility] [place] [address] * (ABNORMAL) Prothrombin Time (05/29/2017 3:23 AM EST) PT 23.6(H) 11.8 - 14.0 sec [facility] INR 2.1(H) 0.9 - 1.1 [facility] LABORATORY Comment: An INR <2.0 [...] APRN HEMATOLOGY ORDERAB LES Performing Organization Address [facility] Co de Phone Number [facility] [place] [address] * POCT Glucose (05/28/2017 3:39 PM EST) POC Glucose 127 65 - 199 mg/dL [facility] Comment: Supplemental ranges: <140 mg/dL before meals <180 mg/dL all other times of the day Blood specimen (specimen) 05/28/2017 3:39 PM EST 05/28/2017 3:39 PM EST Kuldeep Conner MD POINT OF CARE TEST ORDERABLES [facility] [place] [address] * XR Chest PA & Lateral (Generic) [...] POC Glucose 89 65 - 199 mg/dL [facility] Comment: Supplemental ranges: <140 mg/dL before meals <180 mg/dL all other times of the day Blood specimen (specimen) 05/28/2017 11:32 AM EST 05/28/2017 11:32 AM EST Kuldeep Conner MD POINT OF CARE TEST ORDERABLES Performing Organization Address [facility] Co de Phone Number [facility] [place] [address] * POCT Glucose (05/28/2017 8:11 AM EST) POC Glucose 136 65 - 199 mg/dL [facility] Comment: Supplemental ranges: <140 mg/dL before meals <180 mg/dL all other times of the day Blood specimen (specimen) 05/28/2017 8:11 AM EST 05/28/2017 8:11 AM EST Kuldeep Conner MD POINT OF CARE TEST ORDERABLES Performing Organization Address City/[facility]/ZIP Co de Phone Number [facility] [place] [address] * (ABNORMAL) Differential, Automated (05/28/2017 4:21 AM EST) Neutrophils % 76.8 % [facility] LABOR[facility] Neutr Abs (ANC) 10.05(H) 1.70 - 6.10 x10(3)/mc L [facility] Lymphocytes % 12.8 % [facility] Lymphocytes Abs 1.7 0.9 - 3.2 x10(3)/mc L [facility] Monocytes % 8.8 % [facility] Monocyte Abs 1.2(H) 0.3 - 0.9 x10(3)/[facility] LABORATORY Eosinophils % 0.8 % [facility] LABORAT[facility] Eosinophils Abs 0.1 0.0 - 0.4 x10(3)/[facility] LABORATORY Basophils % 0.2 % [facility] LABORATORY Basophils Abs 0.0 0.0 - 0.1 x10(3)/[facility] LABORATORY Immature Gran % 0.60 % [facility] Comment: Immature granulocytes(IG's)percentage and absolute count will include metamyelocytes, myelocytes, and promyelocytes. Blood smears from CBCs yielding IG's will be scanned manually for concordance. If this scan disagrees with the automated IG or if promyelocytes are noted, a manual differential will be performed. [place] Gran Abs 0.08(H) 0.00 - 0.04 x10(3)/[facility] LABORATORY Blood specimen (specimen) 05/28/2017 4:21 AM EST 05/28/2017 4:50 AM EST Narrative Resulting Agency Comment Spec In Lab Verónica Watters APRN HEMATOLOGY ORDERAB LES [facility] [place] [address] * (ABNORMAL) Hemogram (05/28/2017 4:21 AM EST) WBC 13.1(H) 4.0 - 9.5 x10(3)/[facility] LABORATORY RBC 2.81(L) 4.00 - 5.21 x10(6)/[facility] LABORATORY Hemoglobin 9.0(L) 11.7 - 15.5 gm/dL [facility] Hematocrit 26.1(L) 35.7 - 45.8 % [facility] MCV 92.9 82.6 - 94.4 fL [facility] MCH 32.0 27.1 - 32.0 pg [facility] MCHC 34.5 31.7 - 35.0 gm/dL [facility] Platelets 146 145 - 357 x10(3)/[facility] LABORATORY RDWSD 43.9 37.0 - 46.0 fL [facility] RDWCV 12.9 11.5 - 14.1 % [facility] MPV 11.5 7.6 - 12.9 fL [facility] nRBC % Auto 0.0 % [facility] LABORATORY nRBC Abs Auto 0.000 0.000 - 0.000 x10(3)/[facility] LABORATORY Blood specimen (specimen) 05/28/2017 4:21 AM EST 05/28/2017 4:50 AM EST Narrative Resulting Agency Comment Spec In Lab Verónica Watters APRN HEMATOLOGY ORDERAB LES Performing Organization Address [facility] Co de Phone Number [facility] [place] [address] * (ABNORMAL) Prothrombin Time (05/28/2017 4:21 AM EST) PT 19.1(H) 11.8 - 14.0 sec [facility] INR 1.6(H) 0.9 - 1.1 [facility] LABORATORY Comment: An INR <2.0 [...] APRN HEMATOLOGY ORDERAB LES Performing Organization Address City/[facility]/ZIP Co de Phone Number [facility] [place] [address] * Heparin, low molecular weight assay (05/28/2017 4:21 AM EST) Heparin [id number] 0.39 IU/mL [facility] Comment: Guidelines for therapeutic unfractionated and [...] Lab Verónica Watters APRN HEMATOLOGY ORDERAB LES [facility] [place] [address] * (ABNORMAL) Basic Metabolic Panel (non-fasting) (05/28/2017 4:21 AM EST) Glucose Lvl 105 65 - 199 mg/dL [facility] Comment:Diabetes: >=200 mg/d L plus symptoms BUN 16 8 - 18 mg/dL [facility] Creatinine 0.65(L) 0.70 - 1.20 mg/dL [facility] Sodium 141 135 - 145 mmol/L [facility] Potassium 4.1 3.5 - 5.0 mmol/L [facility] Comment: Please note: ??Patients with WBC >100,000 may have falsely elevated Potassium levels. ??For accurate Potassium quantification in these patients send serum separator tube (gold top) for subsequent determinations. ??Contact the Clinical Chemistry Laboratory if there are any questions. Chloride 98 98 - 107 mmol/L [facility] CO2 34(H) 22 - 31 mmol/L [facility] Anion Gap 9 5 - 15 mmol/L [facility] Calcium 8.5 8.5 - 10.5 mg/dL [facility] Estimated GFR >60 >=60 [facility] Comment: The reported eGFR should be multiplied by 1.2 for patients. The MDRD is not an appropriate measure of renal function for patients with body mass extremes or in patients with acute kidney failure. http://USEUM.Wabeebwa/DHnkdep http://USEUM.Wabeebwa/DHMCnkf Blood specimen (specimen) 05/28/2017 4:21 AM EST 05/28/2017 4:50 AM EST Narrative Resulting Agency Comment Spec In Lab Verónica Watters APRN CHEMISTRY ORDERABL ES Performing Organization Address [facility] [place]/[facility] Co de Phone Number [facility] [place] [address] * POCT Glucose (05/27/2017 11:36 PM EST) [facility] POC Glucose 113 65 - 199 mg/dL [facility] Comment: Supplemental ranges: <140 mg/dL before meals <180 mg/dL all other times of the day Blood specimen (specimen) 05/27/2017 11:36 PM EST 05/27/2017 11:36 PM EST Kuldeep Conner MD POINT OF CARE TEST ORDERABLES Performing Organization Address [facility] Co de Phone Number [facility] [place] [address] * Heparin, low molecular weight assay (05/27/2017 9:32 PM EST) [facility] Heparin [id number] 0.42 IU/mL [facility] Comment: Guidelines for therapeutic unfractionated and [...] APRN HEMATOLOGY ORDERAB LES Performing Organization Address [facility] [place]/[facility] Co de Phone Number [facility] [place] [address] * POCT Glucose (05/27/2017 8:17 PM EST) POC Glucose 114 65 - 199 mg/dL [facility] Comment: Supplemental ranges: <140 mg/dL before meals <180 mg/dL all other times of the day Blood specimen (specimen) 05/27/2017 8:17 PM EST 05/27/2017 8:17 PM EST Kuldeep Conner MD POINT OF CARE TEST ORDERABLES Performing Organization Address [facility] Co de Phone Number [facility] [place] [address] * POCT Glucose (05/27/2017 3:49 PM EST) POC Glucose 118 65 - 199 mg/dL [facility] Comment: Supplemental ranges: <140 mg/dL before meals <180 mg/dL all other times of the day Blood specimen (specimen) 05/27/2017 3:49 PM EST 05/27/2017 3:49 PM EST Kuldeep Conner MD POINT OF CARE TEST ORDERABLES [facility] [place] [address] * Heparin, low molecular weight assay (05/27/2017 3:30 PM EST) Heparin [id number] 0.34 IU/mL [facility] Comment: Guidelines for therapeutic unfractionated and [...] APRN HEMATOLOGY ORDERAB LES Performing Organization Address City/[facility] Co de Phone Number [facility] [place] [address] * POCT Glucose (05/27/2017 11:51 AM EST) POC Glucose 105 65 - 199 mg/dL [facility] Comment: Supplemental ranges: <140 mg/dL before meals <180 mg/dL all other times of the day Blood specimen (specimen) 05/27/2017 11:51 AM EST 05/27/2017 11:51 AM EST Kuldeep Conner MD POINT OF CARE TEST ORDERABLES Performing Organization Address [facility] [place]/[facility] Co de Phone Number [facility] [place] [address] * POCT Glucose (05/27/2017 7:37 AM EST) POC Glucose 111 65 - 199 mg/dL [facility] Comment: Supplemental ranges: <140 mg/dL before meals <180 mg/dL all other times of the day Blood specimen (specimen) 05/27/2017 7:37 AM EST 05/27/2017 7:37 AM EST Kuldeep Conner MD POINT OF CARE TEST ORDERABLES Performing Organization Address [facility] Co de Phone Number [facility] [place] [address] * POCT Glucose (05/27/2017 5:06 AM EST) POC Glucose 105 65 - 199 mg/dL [facility] Comment: Supplemental ranges: <140 mg/dL before meals <180 mg/dL all other times of the day Blood specimen (specimen) 05/27/2017 5:06 AM EST 05/27/2017 5:06 AM EST Kuldeep Conner MD POINT OF CARE TEST ORDERABLES [facility] [place] [address] * Scan, Peripheral Blood (05/27/2017 5:05 AM EST) [facility] Plat Estimate Decreased [facility] RBC Morphology Abnormal [facility] Ovalocytes 1-5 /HPF [facility] Blood specimen (specimen) 05/27/2017 5:05 AM EST 05/27/2017 5:30 AM EST Narrative Resulting Agency Comment Spec In Lab Verónica Watters APRN HEMATOLOGY ORDERAB LES [facility] [place] [address] * (ABNORMAL) Differential, Automated (05/27/2017 5:05 AM EST) [facility] Neutrophils % 74.2 % [facility] Neutr Abs (ANC) 12.51(H) 1.70 - 6.10 x10(3)/mc L [facility] Lymphocytes % 15.5 % [facility] Lymphocytes Abs 2.6 0.9 - 3.2 x10(3)/mc L [facility] Monocytes % 9.1 % [facility] Monocyte Abs 1.5(H) 0.3 - 0.9 x10(3)/mc L [facility] Eosinophils % 0.3 % [facility] Eosinophils Abs 0.0 0.0 - 0.4 x10(3)/mc L [facility] Basophils % 0.5 % [facility] Basophils Abs 0.1 0.0 - 0.1 x10(3)/mc L [facility] Immature Gran % 0.40 % [facility] Comment: Immature granulocytes(IG's)percentage and absolute count will include metamyelocytes, myelocytes, and promyelocytes. Blood smears from CBCs yielding IG's will be scanned manually for concordance. If this scan disagrees with the automated IG or if promyelocytes are noted, a manual differential will be performed. [place] Gran Abs 0.07(H) 0.00 - 0.04 x10(3)/ L [facility] Blood specimen (specimen) 05/27/2017 5:05 AM EST 05/27/2017 5:30 AM EST Narrative Resulting Agency Comment Spec In Lab Verónica Watters APRN HEMATOLOGY ORDERAB LES Performing Organization Address City/State/[facility] Co de Phone Number [facility] [place] [address] * (ABNORMAL) Hemogram (05/27/2017 5:05 AM EST) WBC 16.8(H) 4.0 - 9.5 x10(3)/[facility] LABORATORY RBC 3.06(L) 4.00 - 5.21 x10(6)/[facility] LABORATORY Hemoglobin 10.0(L) 11.7 - 15.5 gm/dL [facility] Hematocrit 29.3(L) 35.7 - 45.8 % [facility] MCV 95.8(H) 82.6 - 94.4 fL [facility] MCH 32.7(H) 27.1 - 32.0 pg [facility] MCHC 34.1 31.7 - 35.0 gm/dL [facility] Platelets 140(L) 145 - 357 x10(3)/[facility] LABORATORY RDWSD 45.4 37.0 - 46.0 fL [facility] RDWCV 13.0 11.5 - 14.1 % [facility] MPV 11.1 7.6 - 12.9 fL [facility] nRBC % Auto 0.0 % [facility] nRBC Abs Auto 0.000 0.000 - 0.000 x10(3)/mcL [facility] Blood specimen (specimen) 05/27/2017 5:05 AM EST 05/27/2017 5:30 AM EST Narrative Resulting Agency Comment Spec In Lab Verónica Watters APRN HEMATOLOGY ORDERAB LES [facility] [place] [address] * Heparin, low molecular weight assay (05/27/2017 5:05 AM EST) Heparin [id number] 0.46 IU/mL [facility] Comment: Guidelines for therapeutic unfractionated and [...] APRN HEMATOLOGY ORDERAB LES Performing Organization Address [facility] de Phone Number [facility] [place] [address] * Potassium (05/27/2017 5:05 AM EST) Pathologist [facility] Potassium 4.7 3.5 - 5.0 mmol/L [facility] Comment: Please note: ??Patients [...] APRN CHEMISTRY ORDERABL ES Performing Organization Address [facility] de Phone Number [facility] [place] [address] * (ABNORMAL) Prothrombin Time (05/27/2017 5:05 AM EST) PT 15.8(H) 11.8 - 14.0 sec [facility] INR 1.3(H) 0.9 - 1.1 [facility] Comment: An INR <2.0 [...] APRN HEMATOLOGY ORDERAB LES Performing Organization Address [facility] Co de Phone Number [facility] [place] [address] * POCT Glucose (05/27/2017 1:25 AM EST) [facility] POC Glucose 116 65 - 199 mg/dL [facility] Comment: Supplemental ranges: <140 mg/dL before meals <180 mg/dL all other times of the day Blood specimen (specimen) 05/27/2017 1:25 AM EST 05/27/2017 1:25 AM EST Kuldeep Conner MD POINT OF CARE TEST ORDERABLES Performing Organization Address [facility] Co de Phone Number [facility] [place] [address] * Heparin, low molecular weight assay (05/26/2017 11:40 PM EST) Heparin [id number] 0.55 IU/mL [facility] [facility] Comment: Guidelines for therapeutic unfractionated and [...] Lab Verónica Watters APRN HEMATOLOGY ORDERAB LES [facility] [place] [address] * POCT Glucose (05/26/2017 11:38 PM EST) POC Glucose 110 65 - 199 mg/dL [facility] Comment: Supplemental ranges: <140 mg/dL before meals <180 mg/dL all other times of the day Blood specimen (specimen) 05/26/2017 11:38 PM EST 05/26/2017 11:38 PM EST Kuldeep Conner MD POINT OF CARE TEST ORDERABLES Performing Organization Address City/[facility] Co de Phone Number [facility] [place] [address] * POCT Glucose (05/26/2017 10:06 PM EST) POC Glucose 156 65 - 199 mg/dL [facility] Comment: Supplemental ranges: <140 mg/dL before meals <180 mg/dL all other times of the day Blood specimen (specimen) 05/26/2017 10:06 PM EST 05/26/2017 10:06 PM EST Kuldeep Conner MD POINT OF CARE TEST ORDERABLES Performing Organization Address [facility] Co de Phone Number [facility] [place] [address] * POCT Glucose (05/26/2017 7:43 PM EST) POC Glucose 117 65 - 199 mg/dL [facility] Comment: Supplemental ranges: <140 mg/dL before meals <180 mg/dL all other times of the day Blood specimen (specimen) 05/26/2017 7:43 PM EST 05/26/2017 7:43 PM EST Kuldeep Conner MD POINT OF CARE TEST ORDERABLES Performing Organization Address City/[facility] Co de Phone Number [facility] [place] [address] * POCT Glucose (05/26/2017 5:54 PM EST) POC Glucose 116 65 - 199 mg/dL [facility] Comment: Supplemental ranges: <140 mg/dL before meals <180 mg/dL all other times of the day Blood specimen (specimen) 05/26/2017 5:54 PM EST 05/26/2017 5:54 PM EST Kuldeep Conner MD POINT OF CARE TEST ORDERABLES [facility] [place] [address] * Heparin, low molecular weight assay (05/26/2017 5:50 PM EST) Heparin [id number] 0.34 IU/mL [facility] Comment: Guidelines for therapeutic unfractionated and [...] APRN HEMATOLOGY ORDERAB LES Performing Organization Address City/[facility] Co de Phone Number [facility] [place] [address] * POCT Glucose (05/26/2017 3:56 PM EST) POC Glucose 109 65 - 199 mg/dL [facility] Comment: Supplemental ranges: <140 mg/dL before meals <180 mg/dL all other times of the day Blood specimen (specimen) 05/26/2017 3:56 PM EST 05/26/2017 3:56 PM EST Kuldeep Conner MD POINT OF CARE TEST ORDERABLES Performing Organization Address [facility] Co de Phone Number [facility] [place] [address] * POCT Glucose (05/26/2017 2:34 PM EST) POC Glucose 122 65 - 199 mg/dL [facility] Comment: Supplemental ranges: <140 mg/dL before meals <180 mg/dL all other times of the day Blood specimen (specimen) 05/26/2017 2:34 PM EST 05/26/2017 2:34 PM EST Kuldeep Conner MD POINT OF CARE TEST ORDERABLES Performing Organization Address City/[facility] Co de Phone Number [facility] [place] [address] * POCT Glucose (05/26/2017 11:30 AM EST) POC Glucose 114 65 - 199 mg/dL [facility] Comment: Supplemental ranges: <140 mg/dL before meals <180 mg/dL all other times of the day Blood specimen (specimen) 05/26/2017 11:30 AM EST 05/26/2017 11:30 AM EST Kuldeep Conner MD POINT OF CARE TEST ORDERABLES [facility] [place] [address] * (ABNORMAL) Differential, Automated (05/26/2017 9:40 AM EST) Neutrophils % 85.5 % [facility] Neutr Abs (ANC) 15.37(H) 1.70 - 6.10 x10(3)/[facility] Lymphocytes % 6.0 % [facility] Lymphocytes Abs 1.1 0.9 - 3.2 x10(3)/[facility] Monocytes % 7.8 % [facility] Monocyte Abs 1.4(H) 0.3 - 0.9 x10(3)/[facility] Eosinophils % 0.0 % [facility] Eosinophils Abs 0.0 0.0 - 0.4 x10(3)/[facility] Basophils % 0.2 % [facility] Basophils Abs 0.0 0.0 - 0.1 x10(3)/[facility] Immature Gran % 0.50 % [facility] Comment: Immature granulocytes(IG's)percentage and absolute count will include metamyelocytes, myelocytes, and promyelocytes. Blood smears from CBCs yielding IG's will be scanned manually for concordance. If this scan disagrees with the automated IG or if promyelocytes are noted, a manual differential will be performed. [place] Gran Abs 0.09(H) 0.00 - 0.04 x10(3)/[facility] Blood specimen (specimen) 05/26/2017 9:40 AM EST 05/26/2017 9:55 AM EST Narrative Resulting Agency Comment Spec In Lab Verónica Watters APRN HEMATOLOGY ORDERAB LES Performing Organization Address City/[facility]/ZIP Co de Phone Number [facility] [place] [address] * (ABNORMAL) Hemogram (05/26/2017 9:40 AM EST) WBC 18.0(H) 4.0 - 9.5 x10(3)/[facility] RBC 3.51(L) 4.00 - 5.21 x10(6)/[facility] Hemoglobin 11.7 11.7 - 15.5 gm/dL [facility] Hematocrit 32.6(L) 35.7 - 45.8 % [facility] MCV 92.9 82.6 - 94.4 [facility] MCH 33.3(H) 27.1 - 32.0 pg [facility] MCHC 35.9(H) 31.7 - 35.0 gm/dL [facility] Platelets 140(L) 145 - 357 x10(3)/[facility] RDWSD 43.6 37.0 - 46.0 [facility] RDWCV 12.9 11.5 - 14.1 % [facility] MPV 11.0 7.6 - 12.9 [facility] nRBC % Auto 0.0 % [facility] nRBC Abs Auto 0.000 0.000 - 0.000 x10(3)/[facility] Blood specimen (specimen) 05/26/2017 9:40 AM EST 05/26/2017 9:55 AM EST Narrative Resulting Agency Comment Spec In Lab Verónica Watters APRN HEMATOLOGY ORDERAB LES [facility] [place] [address] * (ABNORMAL) Prothrombin Time (05/26/2017 9:40 AM EST) PT 14.1(H) 11.8 - 14.0 sec [facility] INR 1.1 0.9 - 1.1 [facility] Comment: An INR <2.0 [...] APRN HEMATOLOGY ORDERAB LES Performing Organization Address City/[facility]/ZIP Co de Phone Number [facility] [place] [address] * APTT (05/26/2017 9:40 AM EST) Pathologist [facility] PTT 34 25 - 35 sec [facility] Comment: The recommended therapeutic range for full dose, unfractionated heparin at [facility] is 80 ? 114 seconds. The use of the anti-Xa (heparin) level rather than the PTT is recommended for monitoring anticoagulation intensity in critically ill patients receiving unfractionated heparin by continuous IV infusion. Blood specimen (specimen) 05/26/2017 9:40 AM EST 05/26/2017 9:55 AM EST Narrative Resulting Agency Comment Spec In Lab Verónica Watters APRN HEMATOLOGY ORDERAB LES [facility] [place] [address] * POCT Glucose (05/26/2017 9:36 AM EST) Pathologist [facility] POC Glucose 118 65 - 199 mg/dL [facility] Comment: Supplemental ranges: <140 mg/dL before meals <180 mg/dL all other times of the day Blood specimen (specimen) 05/26/2017 9:36 AM EST 05/26/2017 9:36 AM EST Kuldeep Conner MD POINT OF CARE TEST ORDERABLES Performing Organization Address City/[facility] Co de Phone Number [facility] [place] [address] * POCT Glucose (05/26/2017 8:00 AM EST) POC Glucose 135 65 - 199 mg/dL [facility] Comment: Supplemental ranges: <140 mg/dL before meals <180 mg/dL all other times of the day Blood specimen (specimen) 05/26/2017 8:00 AM EST 05/26/2017 8:00 AM EST Kuldeep Conner MD POINT OF CARE TEST ORDERABLES Performing Organization Address [facility] Co de Phone Number [facility] [place] [address] * POCT Glucose (05/26/2017 6:56 AM EST) POC Glucose 149 65 - 199 mg/dL [facility] Comment: Supplemental ranges: <140 mg/dL before meals <180 mg/dL all other times of the day Blood specimen (specimen) 05/26/2017 6:56 AM EST 05/26/2017 6:56 AM EST Kuldeep Conner MD POINT OF CARE TEST ORDERABLES Performing Organization Address City/[facility] Co de Phone Number [facility] [place] [address] * POCT Glucose (05/26/2017 6:11 AM EST) POC Glucose 99 65 - 199 mg/dL [facility] Comment: Supplemental ranges: <140 mg/dL before meals <180 mg/dL all other times of the day Blood specimen (specimen) 05/26/2017 6:11 AM EST 05/26/2017 6:11 AM EST Kuldeep Conner MD POINT OF CARE TEST ORDERABLES [facility] [place] [address] * (ABNORMAL) Differential, Automated (05/26/2017 4:00 AM EST) Neutrophils % 86.7 % [facility] Neutr Abs (ANC) 14.43(H) 1.70 - 6.10 x10(3)/[facility] LAB[facility] Lymphocytes % 5.2 % [facility] Lymphocytes Abs 0.9 0.9 - 3.2 x10(3)/[facility] Monocytes % 7.4 % [facility] Monocyte Abs 1.2(H) 0.3 - 0.9 x10(3)/[facility] LAB[facility] Eosinophils % 0.0 % [facility] Eosinophils Abs 0.0 0.0 - 0.4 x10(3)/[facility] LAB[facility] Basophils % 0.2 % [facility] Basophils Abs 0.0 0.0 - 0.1 x10(3)/[facility] LAB[facility] Immature Gran % 0.50 % [facility] Comment: Immature granulocytes(IG's)percentage and absolute count will include metamyelocytes, myelocytes, and promyelocytes. Blood smears from CBCs yielding IG's will be scanned manually for concordance. If this scan disagrees with the automated IG or if promyelocytes are noted, a manual differential will be performed. [place] Gran Abs 0.09(H) 0.00 - 0.04 x10(3)/[facility] Blood specimen (specimen) 05/26/2017 4:00 AM EST 05/26/2017 4:24 AM EST Narrative Resulting Agency Comment Spec In Lab Carmelo GONZALES HEMATOLOGY ORDER ADRIANA Performing Organization Address City/[facility]/ZIP Co de Phone Number [facility] [place] [address] * (ABNORMAL) Hemogram (05/26/2017 4:00 AM EST) Pathologist [facility] WBC 16.6(H) 4.0 - 9.5 x10(3)/[facility] RBC 3.40(L) 4.00 - 5.21 x10(6)/[facility] Hemoglobin 11.2(L) 11.7 - 15.5 gm/dL [facility] Hematocrit 31.5(L) 35.7 - 45.8 % [facility] MCV 92.6 82.6 - 94.4 [facility] MCH 32.9(H) 27.1 - 32.0 pg [facility] MCHC 35.6(H) 31.7 - 35.0 gm/dL [facility] Platelets 128(L) 145 - 357 x10(3)/[facility] RDWSD 43.3 37.0 - 46.0 [facility] RDWCV 12.8 11.5 - 14.1 % [facility] MPV 11.2 7.6 - 12.9 [facility] nRBC % Auto 0.0 % [facility] nRBC Abs Auto 0.000 0.000 - 0.000 x10(3)/[facility] Blood specimen (specimen) 05/26/2017 4:00 AM EST 05/26/2017 4:24 AM EST Narrative Resulting Agency Comment Spec In Lab Carmelo GONZALES HEMATOLOGY ORDER ADRIANA [facility] [place] [address] * POCT Glucose (05/26/2017 4:00 AM EST) Pathologist [facility] POC Glucose 96 65 - 199 mg/dL [facility] Comment: Supplemental ranges: <140 mg/dL before meals <180 mg/dL all other times of the day Blood specimen (specimen) 05/26/2017 4:00 AM EST 05/26/2017 4:00 AM EST Kuldeep Conner MD POINT OF CARE TEST ORDERABLES Performing Organization Address [facility] Phone Number [facility] [place] [address] * Electrolytes panel (05/26/2017 4:00 AM EST) [facility] Sodium 142 135 - 145 mmol/L [facility] Potassium 4.7 3.5 - 5.0 mmol/L [facility] Comment: Please note: ??Patients with WBC >100,000 may have falsely elevated Potassium levels. ??For accurate Potassium quantification in these patients send serum separator tube (gold top) for subsequent determinations. ??Contact the Clinical Chemistry Laboratory if there are any questions. Chloride 106 98 - 107 mmol/L [facility] CO2 24 22 - 31 mmol/L [facility] Anion Gap 12 5 - 15 mmol/L [facility] Blood specimen (specimen) 05/26/2017 4:00 AM EST 05/26/2017 4:25 AM EST Narrative Resulting Agency Comment Spec In Lab Kuldeep Conner MD CHEMISTRY ORDERABLE S Performing Organization Address [facility] Co de Phone Number [facility] [place] [address] * (ABNORMAL) Cardiac Enzymes (LEB/CGP) (05/26/2017 4:00 AM EST) [facility] Troponin-T 0.34(H) 0.00 - 0.00 ng/mL [facility] Comment: The 99th percentile for Troponin T is less than 0.01 ng/mL, any detectable cTnT concentration using this assay should be considered elevated. According to the third universal definition of myocardial infarction the following criteria with a clinical presentation consistent with acute myocardial ischemia meets the diagnosis for a myocardial infarction (NC). Detection of a rise and/or fall of cTnT, with at least one value greater than the 99th percentile (> or = 0.01) and with at least one of the following ?? Symptoms of ischemia ?? New or presumed new significant PZ-[id number]-L wave (ST-T) changes or new left bundle [...] additional sample may be indicated. Reference: [place] Definition of Myocardial Infarction. Journal of the [place] [employer] 2012;60:1581-98 CK, Total 388(H) 0 - 160 unit/L [facility] Blood specimen (specimen) 05/26/2017 4:00 AM EST 05/26/2017 4:24 AM EST Narrative Resulting Agency Comment Spec In Lab Kuldeep Conner MD CHEMISTRY ORDERABLE S Performing Organization Address City/State/[facility] Co de Phone Number [facility] [place] [address] * (ABNORMAL) Glucose, fasting (05/26/2017 4:00 AM EST) Glucose Fasting 136(H) 65 - 99 mg/dL [facility] Comment: ?Fasting* Glucose Interpretive Criteria Normal [...] of Diabetes Mellitus, Position Statement from the [place] [employer]. ??Diabetes Care, Volume 33, Supplement 1, Apr 2009 Blood specimen (specimen) 05/26/2017 4:00 AM EST 05/26/2017 4:24 AM EST Narrative Resulting Agency Comment Spec In Lab Kuldeep Conner MD CHEMISTRY ORDERABLE S Performing Organization Address [facility] de Phone Number [facility] [place] [address] * (ABNORMAL) Creatinine (05/26/2017 4:00 AM EST) Creatinine 0.65(L) 0.70 - 1.20 mg/dL [facility] Estimated GFR >60 >=60 [facility] Comment: The reported eGFR should be multiplied by 1.2 for patients. The MDRD is not an appropriate measure of renal function for patients with body mass extremes or in patients with acute kidney failure. http://USEUM.Wabeebwa/DHnkdep http://ePatientFinder/DHMCnkf Blood specimen (specimen) 05/26/2017 4:00 AM EST 05/26/2017 4:24 AM EST Narrative Resulting Agency Comment Spec In Lab Kuldeep Conner MD CHEMISTRY ORDERABLE S Performing Organization Address [facility] Co de Phone Number [facility] [place] [address] * BUN (05/26/2017 4:00 AM EST) BUN 14 8 - 18 mg/dL [facility] Blood specimen (specimen) 05/26/2017 4:00 AM EST 05/26/2017 4:24 AM EST Narrative Resulting Agency Comment Spec In Lab Kuldeep Conner MD CHEMISTRY ORDERABLE S Performing Organization Address [facility] Co de Phone Number [facility] [place] [address] * POCT Glucose (05/26/2017 2:58 AM EST) POC Glucose 143 65 - 199 mg/dL [facility] Comment: Supplemental ranges: <140 mg/dL before meals <180 mg/dL all other times of the day Blood specimen (specimen) 05/26/2017 2:58 AM EST 05/26/2017 2:58 AM EST Kuldeep Conner MD POINT OF CARE TEST ORDERABLES [facility] [place] [address] * POCT Glucose (05/26/2017 2:06 AM EST) POC Glucose 137 65 - 199 mg/dL [facility] Comment: Supplemental ranges: <140 mg/dL before meals <180 mg/dL all other times of the day Blood specimen (specimen) 05/26/2017 2:06 AM EST 05/26/2017 2:06 AM EST Kuldeep Conner MD POINT OF CARE TEST ORDERABLES Performing Organization Address City/[facility]/ZIP Co de Phone Number [facility] [place] [address] * POCT Glucose (05/26/2017 12:56 AM EST) POC Glucose 133 65 - 199 mg/dL [facility] Comment: Supplemental ranges: <140 mg/dL before meals <180 mg/dL all other times of the day Blood specimen (specimen) 05/26/2017 12:56 AM EST 05/26/2017 12:56 AM EST Kuldeep Conner MD POINT OF CARE TEST ORDERABLES [facility] [place] [address] * POCT Glucose (05/26/2017 12:06 AM EST) POC Glucose 116 65 - 199 mg/dL [facility] Comment: Supplemental ranges: <140 mg/dL before meals <180 mg/dL all other times of the day Blood specimen (specimen) 05/26/2017 12:06 AM EST 05/26/2017 12:06 AM EST Kuldeep Conner MD POINT OF CARE TEST ORDERABLES Performing Organization Address City/[facility]/ZIP Co de Phone Number [facility] [place] [address] * POCT Glucose (05/25/2017 11:22 PM EST) POC Glucose 106 65 - 199 mg/dL [facility] Comment: Supplemental ranges: <140 mg/dL before meals <180 mg/dL all other times of the day Blood specimen (specimen) 05/25/2017 11:22 PM EST 05/25/2017 11:22 PM EST Kuldeep Conner MD POINT OF CARE TEST ORDERABLES Performing Organization Address [facility] Co de Phone Number [facility] [place] [address] * POCT Glucose (05/25/2017 10:54 PM EST) POC Glucose 99 65 - 199 mg/dL [facility] Comment: Supplemental ranges: <140 mg/dL before meals <180 mg/dL all other times of the day Blood specimen (specimen) 05/25/2017 10:54 PM EST 05/25/2017 10:54 PM EST Kuldeep Conner MD POINT OF CARE TEST ORDERABLES Performing Organization Address City/[facility]/ZIP Co de Phone Number [facility] [place] [address] * POCT Glucose (05/25/2017 10:05 PM EST) POC Glucose 139 65 - 199 mg/dL [facility] Comment: Supplemental ranges: <140 mg/dL before meals <180 mg/dL all other times of the day Blood specimen (specimen) 05/25/2017 10:05 PM EST 05/25/2017 10:05 PM EST Kuldeep Conner MD POINT OF CARE TEST ORDERABLES Performing Organization Address City/[facility] Co de Phone Number [facility] [place] [address] * POCT Glucose (05/25/2017 9:02 PM EST) Pathologist [facility] POC Glucose 167 65 - 199 mg/dL [facility] Comment: Supplemental ranges: <140 mg/dL before meals <180 mg/dL all other times of the day Blood specimen (specimen) 05/25/2017 9:02 PM EST 05/25/2017 9:02 PM EST Kuldeep Conner MD POINT OF CARE TEST ORDERABLES Performing Organization Address [facility] Co de Phone Number [facility] [place] [address] * (ABNORMAL) BLOOD GAS 2 ARTERIAL (05/25/2017 7:44 PM EST) pH Art 7.33(L) 7.35 - 7.45 [facility] pCO2 Art 43 35 - 45 mmHg [facility] pO2 Art 108(H) 85 - 104 mmHg [facility] HCO3 Art 21.9 20.0 - 26.0 mmol/L [facility] BE Art -4.1(L) -3.0 - 3.0 mmol/L [facility] Hgb Blood Gas 11.7(L) 11.7 - 15.5 gm/dL [facility] O2HB Art 95.5 94.0 - 97.0 % [facility] COHB Art 0.3 % [facility] Comment: Nonsmokers: 0.5-1.5% COHB Smokers: Variable, but usually less than 10% Toxic: 20-30% COHB Lethal: Greater than 60% COHB METHB Art 0.9 <=1.5 % [facility] Na Whole Blood 140 135 - 145 mmol/L [facility] K Whole Blood 4.2 3.5 - 5.0 mmol/L [facility] Comment: Please note: Patients with WBC >100,000 may have falsely elevated Potassium levels. Contact the Clinical Chemistry Laboratory if there are any questions. ICa Whole Blood 1.10(L) 1.15 - 1.33 mmol/L [facility] Comment: Note: ??Total bilirubin higher than 20 mg/dL may lead to falsely low ionized calcium. CL Whole Blood 109(H) 98 - 107 mmol/L [facility] Gluc Whole Bld 169 65 - 199 mg/dL [facility] Comment:Diabetes: >=200 mg/d L plus symptoms. Lactate WB 1.4 0.5 - 2.2 mmol/L [facility] FIO2 Art 40 % [facility] PF Ratio Art 270 [facility] Blood specimen (specimen) 05/25/2017 7:44 PM EST 05/25/2017 7:44 PM EST Bienvenido Wong MD CHEMISTRY ORDERABLES Performing Organization Address City/[facility]/ZIP Co de Phone Number [facility] [place] [address] * POCT Glucose (05/25/2017 7:41 PM EST) POC Glucose 177 65 - 199 mg/dL [facility] Comment: Supplemental ranges: <140 mg/dL before meals <180 mg/dL all other times of the day Blood specimen (specimen) 05/25/2017 7:41 PM EST 05/25/2017 7:41 PM EST Bienvenido Wong MD POINT OF CARE TEST O RDERABLES Performing Organization Address City/[facility]/ZIP Co de Phone Number [facility] [place] [address] * (ABNORMAL) Hemoglobin (05/25/2017 7:40 PM EST) Pathologist [facility] Hemoglobin 10.8(L) 11.7 - 15.5 gm/dL [facility] Blood specimen (specimen) 05/25/2017 7:40 PM EST 05/25/2017 7:51 PM EST Narrative Resulting Agency Comment Spec In Lab Kuldeep Conner MD HEMATOLOGY ORDERABL ES Performing Organization Address [facility] Co de Phone Number [facility] [place] [address] * Potassium (05/25/2017 7:40 PM EST) [facility] Potassium 4.4 3.5 - 5.0 mmol/L [facility] Comment: Please note: ??Patients [...] MD CHEMISTRY ORDERABLE S Performing Organization Address [facility] de Phone Number [facility] [place] [address] * POCT Glucose (05/25/2017 5:08 PM EST) [facility] POC Glucose 132 65 - 199 mg/dL [facility] Comment: Supplemental ranges: <140 mg/dL before meals <180 mg/dL all other times of the day Blood specimen (specimen) 05/25/2017 5:08 PM EST 05/25/2017 5:08 PM EST Bienvenido Wong MD POINT OF CARE TEST O RDERABLES Performing Organization Address [facility] Co de Phone Number [facility] [place] [address] * Prepare Albumin 5% in 250 mL (05/25/2017 4:18 PM EST) Dispensed? Yes [facility] Blood specimen (specimen) No Charge / Unknown 05/25/2017 4:18 PM EST 05/25/2017 4:19 PM EST Narrative Resulting Agency Comment Spec In Lab Kuldeep Conner MD BLOOD BANK LAB ROLAND AMOR [facility] [place] [address] * XR Chest PA or AP 1 view (05/25/2017 3:32 PM EST) Anatomical Region Laterality Modality Chest N/A Digital Radiogra phy Narrative 05/25/2017 3:48 PM EST EXAMINATION: XR CHEST PA OR AP 1 VIEW CLINICAL HISTORY: [facility] avr TECHNIQUE: AP portable chest COMPARISON: 05/18/2017 FINDINGS: Postsurgical and instrumentation of AVR repair. An endotracheal tube terminates approximately 5 cm above the sharon. An enteric tube terminates within the stomach. Side port has passed the gastroesophageal junction. Two mediastinal drainages are noted. A [place] catheter terminates at the likely position of the outflow tract of the pulmonary trunk. If a position in the right pulmonary artery is required advance for approximately 7.5 cm. No pneumothorax. Cardiomediastinal contours are magnified. Trace of atelectasis at both bases. No pleural effusions. Procedure Note Allison Davis MD - 05/25/2017 EXAMINATION: XR CHEST PA OR AP 1 VIEW CLINICAL HISTORY: [facility] avr TECHNIQUE: AP portable chest COMPARISON: 05/18/2017 FINDINGS: Postsurgical and instrumentation of AVR repair. An endotracheal tube terminates approximately 5 cm above the [place]. An enteric tube terminates within the stomach. Side port has passed the gastroesophageal junction. Two mediastinal drainages are noted. A [place] catheter terminates at the likely position of [...] EST) pH Art 7.42 7.35 - 7.45 [facility] pCO2 Art 38 35 - 45 mmHg [facility] pO2 Art 470(H) 85 - 104 mmHg [facility] HCO3 Art 24.1 20.0 - 26.0 mmol/L [facility] BE Art -0.4 -3.0 - 3.0 mmol/L [facility] Hgb Blood Gas 12.7 11.7 - 15.5 gm/dL [facility] O2HB Art 97.9(H) 94.0 - 97.0 % [facility] COHB Art 0.3 % [facility] Comment: Nonsmokers: 0.5-1.5% COHB Smokers: Variable, but usually less than 10% Toxic: 20-30% COHB Lethal: Greater than 60% COHB METHB Art 0.8 <=1.5 % [facility] Na Whole Blood 139 135 - 145 mmol/L [facility] K Whole Blood 3.9 3.5 - 5.0 mmol/L [facility] Comment: Please note: Patients with WBC >100,000 may have falsely elevated Potassium levels. Contact the Clinical Chemistry Laboratory if there are any questions. ICa Whole Blood 1.10(L) 1.15 - 1.33 mmol/L [facility] Comment: Note: ??Total bilirubin higher than 20 mg/dL may lead to falsely low ionized calcium. CL Whole Blood 108(H) 98 - 107 mmol/L [facility] Gluc Whole Bld 123 65 - 199 mg/dL [facility] Comment:Diabetes: >=200 mg/d L plus symptoms. Lactate WB 1.2 0.5 - 2.2 mmol/L [facility] FIO2 Art 100 % [facility] PF Ratio Art 470 [facility] Blood specimen (specimen) 05/25/2017 3:22 PM EST 05/25/2017 3:22 PM EST Bienvenido Wong MD CHEMISTRY ORDERABLES [facility] [place] [address] * EKG 12 Lead (05/25/2017 3:12 PM EST) Ventricular rate 104 BPM MUSE SYSTEM Atrial Rate 104 BPM MUSE SYSTEM P-R Interval 180 ms MUSE SYSTEM QRS Duration 104 ms MUSE SYSTEM Q-T Interval 388 ms MUSE SYSTEM QTC Calculated (Bezet) 510 ms MUSE SYSTEM Calculated P [place] 63 degrees MUSE SYSTEM Calculated R [place] -46 degrees MUSE SYSTEM Calculated T [place] 82 degrees MUSE SYSTEM INTERPRETATION Sinus tachycardia [...] of Inferior infarct Present Confirmed by MD Angel, Phuong ([id number]) on 05/25/2017 7:43:50 PM MUSE SYSTEM 05/25/2017 3:12 PM EST 05/25/2017 7:43 PM EST Kuldeep Conner MD ECG ORDERABLES Performing Organization Address City/[facility]/ZIP Co de Phone Number MUSE SYSTEM * (ABNORMAL) BLOOD GAS 2 ARTERIAL (05/25/2017 1:58 PM EST) pH Art 7.46(H) 7.35 - 7.45 [facility] pCO2 Art 36 35 - 45 mmHg [facility] pO2 Art 269(H) 85 - 104 mmHg [facility] HCO3 Art 24.7 20.0 - 26.0 mmol/L [facility] BE Art 0.8 -3.0 - 3.0 mmol/L [facility] Hgb Blood Gas 8.3(L) 11.7 - 15.5 gm/dL [facility] O2HB Art 98.4(H) 94.0 - 97.0 % [facility] COHB Art 0.3 % [facility] Comment: Nonsmokers: 0.5-1.5% COHB Smokers: Variable, but usually less than 10% Toxic: 20-30% COHB Lethal: Greater than 60% COHB METHB Art 0.3 <=1.5 % [facility] Na Whole Blood 135 135 - 145 mmol/L [facility] K Whole Blood 4.1 3.5 - 5.0 mmol/L [facility] Comment: Please note: Patients with WBC >100,000 may have falsely elevated Potassium levels. Contact the Clinical Chemistry Laboratory if there are any questions. ICa Whole Blood 1.15(L) 1.15 - 1.33 mmol/L [facility] Comment: Note: ??Total bilirubin higher than 20 mg/dL may lead to falsely low ionized calcium. CL Whole Blood 105 98 - 107 mmol/L [facility] Gluc Whole Bld 186 65 - 199 mg/dL [facility] Comment:Diabetes: >=200 mg/d L plus symptoms. Lactate WB 2.2 0.5 - 2.2 mmol/L [facility] Blood specimen (specimen) 05/25/2017 1:58 PM EST 05/25/2017 1:58 PM EST Bienvenido Wong MD CHEMISTRY ORDERABLES [facility] [place] [address] * Thrombin time (05/25/2017 1:55 PM EST) Thrombin Time 18 15 - 20 sec [facility] Comment: A prolongation in the thrombin [...] MD HEMATOLOGY ORDERABLE S Performing Organization Address City/[facility]/ZIP Co de Phone Number [facility] [place] [address] * Fibrinogen (05/25/2017 1:55 PM EST) Fibrinogen 260 180 - 510 mg/dL [facility] Comment: Called by: , Read back by:Zeeshan Granger, Date/Time:05/25/17 14:15. A fibrinogen level >100 mg/dL is adequate for hemostasis in most patients without underlying bleeding disorders. Blood specimen (specimen) 05/25/2017 1:55 PM EST 05/25/2017 2:01 PM EST Narrative Resulting Agency Comment Spec In Lab Bienvenido Wong MD HEMATOLOGY ORDERABLE S Performing Organization Address City/[facility]/ZIP Co de Phone Number [facility] [place] [address] * APTT (05/25/2017 1:55 PM EST) PTT 33 25 - 35 sec [facility] Comment: The recommended therapeutic range for full dose, unfractionated heparin at [facility] is 80 ? 114 seconds. The use of the anti-Xa (heparin) level rather than the PTT is recommended for monitoring anticoagulation intensity in critically ill patients receiving unfractionated heparin by continuous IV infusion. Blood specimen (specimen) 05/25/2017 1:55 PM EST 05/25/2017 2:01 PM EST Narrative Resulting Agency Comment Spec In Lab Bienvenido Wong MD HEMATOLOGY ORDERABLE S [facility] [place] [address] * (ABNORMAL) Prothrombin Time (05/25/2017 1:55 PM EST) PT 18.0(H) 11.8 - 14.0 sec [facility] INR 1.5(H) 0.9 - 1.1 [facility] Comment: An INR <2.0 [...] Lab Bienvenido Wong MD HEMATOLOGY ORDERABLE S [facility] [place] [address] * (ABNORMAL) Hemogram (05/25/2017 1:55 PM EST) WBC 13.7(H) 4.0 - 9.5 x10(3)/[facility]AT[facility] RBC 2.45(L) 4.00 - 5.21 x10(6)/[facility] Hemoglobin 8.0(L) 11.7 - 15.5 gm/dL [facility] Hematocrit 23.1(L) 35.7 - 45.8 % [facility] Comment: This result has been called to ANETA HOBBS by LYNDA MARTIN on 05 25 2017 at 1423, and has been read back. MCV 94.3 82.6 - 94.4 fL [facility] MCH 32.7(H) 27.1 - 32.0 pg [facility] MCHC 34.6 31.7 - 35.0 gm/dL [facility] Platelets 107(L) 145 - 357 x10(3)/[facility] RDWSD 42.7 37.0 - 46.0 fL [facility] RDWCV 12.4 11.5 - 14.1 % [facility] MPV 10.7 7.6 - 12.9 fL [facility] nRBC % Auto 0.0 % [facility] nRBC Abs Auto 0.000 0.000 - 0.000 x10(3)/[facility] Blood specimen (specimen) 05/25/2017 1:55 PM EST 05/25/2017 2:01 PM EST Narrative Resulting Agency Comment Spec In Lab Bienvenido Wong MD HEMATOLOGY ORDERABLE S Performing Organization Address City/State/[facility] Co de Phone Number [facility] [place] [address] * (ABNORMAL) BLOOD GAS 2 ARTERIAL (05/25/2017 1:02 PM EST) pH Art 7.40 7.35 - 7.45 [facility] pCO2 Art 47(H) 35 - 45 mmHg [facility] pO2 Art 286(H) 85 - 104 mmHg [facility] HCO3 Art 28.7(H) 20.0 - 26.0 mmol/L [facility] BE Art 4.0(H) -3.0 - 3.0 mmol/L [facility] Hgb Blood Gas 8.6(L) 11.7 - 15.5 gm/dL [facility] O2HB Art 98.5(H) 94.0 - 97.0 % [facility] COHB Art 0.3 % [facility] Comment: Nonsmokers: 0.5-1.5% COHB Smokers: Variable, but usually less than 10% Toxic: 20-30% COHB Lethal: Greater than 60% COHB METHB Art 0.3 <=1.5 % [facility] Na Whole Blood 131(L) 135 - 145 mmol/L [facility] K Whole Blood 5.4(H) 3.5 - 5.0 mmol/L [facility] Comment: Please note: Patients with WBC >100,000 may have falsely elevated Potassium levels. Contact the Clinical Chemistry Laboratory if there are any questions. ICa Whole Blood 0.96(L) 1.15 - 1.33 mmol/L [facility] Comment: Note: ??Total bilirubin higher than 20 mg/dL may lead to falsely low ionized calcium. CL Whole Blood 101 98 - 107 mmol/L [facility] Gluc Whole Bld 200(H) 65 - 199 mg/dL [facility] Comment:Diabetes: >=200 mg/d L plus symptoms. Lactate WB 1.4 0.5 - 2.2 mmol/L [facility] Blood specimen (specimen) 05/25/2017 1:02 PM EST 05/25/2017 1:02 PM EST Bienvenido Wong MD CHEMISTRY ORDERABLES Performing Organization Address City/State/[facility] Co de Phone Number [facility] [place] [address] * (ABNORMAL) Platelet count (05/25/2017 12:35 PM EST) Platelets 134(L) 145 - 357 x10(3)/mc L [facility] Plat Immature % 3.9 0.0 - 7.4 % [facility] Comment: Limitation of the Immature Platelet Fraction (IPF)-May be less reliable when the platelet count is less than 03x783/uL due to statistical imprecision. The IPF value [...] in a decreased state of production. References: [employer] The Clinical Value of the Immature Platelet Fraction (IPF) in Cell Recovery Document Number [id number] 09/2010 [employer] The Role of the Immature Platelet Fraction (IPF) in the Differential Diagnosis of Thrombocytopenia, Document [id number] V05/03/19 P008/17 Blood specimen (specimen) 05/25/2017 12:35 PM EST 05/25/2017 12:37 PM EST Narrative Resulting Agency Comment Spec In Lab Bienvenido Wong MD HEMATOLOGY ORDERABLE S Performing Organization Address [facility] Co de Phone Number [facility] [place] [address] * (ABNORMAL) Hemoglobin and Hematocrit, blood (05/25/2017 12:35 PM EST) Hemoglobin 8.7(L) 11.7 - 15.5 gm/dL [facility] Comment: This result has been called to ANETA HOBBS by LYNDA MARTIN on 05 25 2017 at 1245, and has been read back. Hematocrit 24.5(L) 35.7 - 45.8 % [facility] Comment: This result has been called to ANETA HOBBS by LYNDA MARTIN on 05 25 2017 at 1245, and has been read back. Blood specimen (specimen) 05/25/2017 12:35 PM EST 05/25/2017 12:37 PM EST Narrative Resulting Agency Comment Spec In Lab Bienvenido Wong MD HEMATOLOGY ORDERABLE S Performing Organization Address [facility]/ZIP Co de Phone Number [facility] [place] [address] * Fibrinogen (05/25/2017 12:35 PM EST) Fibrinogen 267 180 - 510 mg/dL [facility] Comment: Called by: mrt, Read back by: zeeshan rubi_, Date/Time:_05/25/17 12:52. A fibrinogen level >100 mg/dL is adequate for hemostasis in most patients without underlying bleeding disorders. Blood specimen (specimen) 05/25/2017 12:35 PM EST 05/25/2017 12:37 PM EST Narrative Resulting Agency Comment Spec In Lab Bienvenido Wong MD HEMATOLOGY ORDERABLE S [facility] [place] [address] * (ABNORMAL) BLOOD GAS 2 ARTERIAL (05/25/2017 12:32 PM EST) pH Art 7.37 7.35 - 7.45 [facility] pCO2 Art 46(H) 35 - 45 mmHg [facility] pO2 Art 418(H) 85 - 104 mmHg [facility] HCO3 Art 26.3(H) 20.0 - 26.0 mmol/L [facility] BE Art 1.1 -3.0 - 3.0 mmol/L [facility] Hgb Blood Gas 9.2(L) 11.7 - 15.5 gm/dL [facility] O2HB Art 98.8(H) 94.0 - 97.0 % [facility] COHB Art 0.3 % [facility] Comment: Nonsmokers: 0.5-1.5% COHB Smokers: Variable, but usually less than 10% Toxic: 20-30% COHB Lethal: Greater than 60% COHB METHB Art 0.0 <=1.5 % [facility] Na Whole Blood 132(L) 135 - 145 mmol/L [facility] K Whole Blood 5.3(H) 3.5 - 5.0 mmol/L [facility] Comment: Please note: Patients with WBC >100,000 may have falsely elevated Potassium levels. Contact the Clinical Chemistry Laboratory if there are any questions. ICa Whole Blood 0.94(L) 1.15 - 1.33 mmol/L [facility] Comment: Note: ??Total bilirubin higher than 20 mg/dL may lead to falsely low ionized calcium. CL Whole Blood 102 98 - 107 mmol/L [facility] Gluc Whole Bld 184 65 - 199 mg/dL [facility] Comment:Diabetes: >=200 mg/d L plus symptoms. Lactate WB 1.2 0.5 - 2.2 mmol/L [facility] Blood specimen (specimen) 05/25/2017 12:32 PM EST 05/25/2017 12:32 PM EST Bienvenido Wong MD CHEMISTRY ORDERABLES [facility] [place] [address] * Surgical Pathology Report (05/25/2017 12:28 PM EST) FINAL DIAGNOSIS (AP) [id number] ? Location: [facility]; [facility] [place]; A The signing pathologist has (i) examined the relevant preparation(s) for the specimen(s) and (ii) rendered or confirmed the diagnosis(es). . 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 Electronically signed by: ??Shahrzad Paris DO Verified: ??05/28/2017 ?Pathologist Performed at: ??-[facility] Dept. of Pathology, [place], [place] CLINICAL INFORMATION Specimen Submitted: A - [...] be determined due to fragmentation. Sections/Processi ng: [employer] Technician sections are submitted. (R1) ??cf 05/28/2017 10:32 AM EST [facility] AORTIC STRUCTURE / Unknown 05/25/2017 12:28 PM EST 05/25/2017 12:28 PM EST Kuldeep Conner MD PATHOLOGY/CYTOLOGY ORDERABLES [facility] [place] [address] * Specimen to Pathology (05/25/2017 12:28 PM EST) AP Specimen 05/25/2017 12:2 8 PM EST 05/25/2017 12:52 PM EST Narrative [facility] - 05/25/2017 12:52 PM EST Specimen requisition ordered. ??Separate Pathology report to follow Resulting Agency Comment Spec In Lab Bienvenido Wong MD PATHOLOGY/CYTOLOGY O RDERABLES Performing Organization Address City/[facility]/[place] [address] * (ABNORMAL) BLOOD GAS 2 ARTERIAL (05/25/2017 12:05 PM EST) pH Art 7.40 7.35 - 7.45 [facility] pCO2 Art 38 35 - 45 mmHg [facility] pO2 Art 406(H) 85 - 104 mmHg [facility] HCO3 Art 23.2 20.0 - 26.0 mmol/L [facility] BE Art -1.5 -3.0 - 3.0 mmol/L [facility] Hgb Blood Gas 9.7(L) 11.7 - 15.5 gm/dL [facility] O2HB Art 98.9(H) 94.0 - 97.0 % [facility] COHB Art 0.3 % [facility] Comment: Nonsmokers: 0.5-1.5% COHB Smokers: Variable, but usually less than 10% Toxic: 20-30% COHB Lethal: Greater than 60% COHB METHB Art 0.0 <=1.5 % [facility] Na Whole Blood 134(L) 135 - 145 mmol/L [facility] K Whole Blood 4.1 3.5 - 5.0 mmol/L [facility] Comment: Please note: Patients with WBC >100,000 may have falsely elevated Potassium levels. Contact the Clinical Chemistry Laboratory if there are any questions. ICa Whole Blood 0.99(L) 1.15 - 1.33 mmol/L [facility] Comment: Note: ??Total bilirubin higher than 20 mg/dL may lead to falsely low ionized calcium. CL Whole Blood 102 98 - 107 mmol/L [facility] Gluc Whole Bld 94 65 - 199 mg/dL [facility] Comment:Diabetes: >=200 mg/d L plus symptoms. Lactate WB 0.8 0.5 - 2.2 mmol/L [facility] Blood specimen (specimen) 05/25/2017 12:05 PM EST 05/25/2017 12:05 PM EST Bienvenido Wong MD CHEMISTRY ORDERABLES [facility] [place] [address] * (ABNORMAL) BLOOD GAS 2 VENOUS (05/25/2017 12:05 PM EST) pH Amador 7.38 7.32 - 7.42 [facility] pCO2 [place] 40(L) 41 - 51 mmHg [facility] pO2 [place] 45(H) 25 - 40 mmHg [facility] HCO3 [place] 22.9 mmol/L [facility] BE [place] -2.2 mmol/L [facility] Hgb Blood Gas 10.1(L) 11.7 - 15.5 gm/dL [facility] O2HB Am[place] 79.8 % [facility] COHB Am[place] 0.1 % [facility] Comment: Nonsmokers: 0.5-1.5% COHB Smokers: Variable, but usually less than 10% Toxic: 20-30% COHB Lethal: Greater than 60% COHB METHB Am[place] 0.3 <=1.5 % [facility] Na Whole Blood 135 135 - 145 mmol/L [facility] K Whole Blood 4.1 3.5 - 5.0 mmol/L [facility] Comment: Please note: Patients with WBC >100,000 may have falsely elevated Potassium levels. Contact the Clinical Chemistry Laboratory if there are any questions. ICa Whole Blood 1.03(L) 1.15 - 1.33 mmol/L [facility] Comment: Note: ??Total bilirubin higher than 20 mg/dL may lead to falsely low ionized calcium. CL Whole Blood 102 98 - 107 mmol/L [facility] Gluc Whole Bld 93 65 - 199 mg/dL [facility] Comment:Diabetes: >=200 mg/d L plus symptoms Lactate WB 0.7 0.5 - 2.2 mmol/L [facility] BGas Source Venous [facility] Blood specimen (specimen) 05/25/2017 12:05 PM EST 05/25/2017 12:05 PM EST Bienvenido Wong MD CHEMISTRY ORDERABLES Performing Organization Address City/State/[facility] Co de Phone Number [facility] [place] [address] * (ABNORMAL) BLOOD GAS 2 ARTERIAL (05/25/2017 11:27 AM EST) pH Art 7.47(H) 7.35 - 7.45 [facility] pCO2 Art 37 35 - 45 mmHg [facility] pO2 Art 255(H) 85 - 104 mmHg [facility] HCO3 Art 25.7 20.0 - 26.0 mmol/L [facility] BE Art 2.0 -3.0 - 3.0 mmol/L [facility] Hgb Blood Gas 11.9 11.7 - 15.5 gm/dL [facility] O2HB Art 98.6(H) 94.0 - 97.0 % [facility] COHB Art 0.3 % [facility] Comment: Nonsmokers: 0.5-1.5% COHB Smokers: Variable, but usually less than 10% Toxic: 20-30% COHB Lethal: Greater than 60% COHB METHB Art 0.3 <=1.5 % [facility] Na Whole Blood 143 135 - 145 mmol/L [facility] K Whole Blood 4.1 3.5 - 5.0 mmol/L [facility] Comment: Please note: Patients with WBC >100,000 may have falsely elevated Potassium levels. Contact the Clinical Chemistry Laboratory if there are any questions. ICa Whole Blood 1.15(L) 1.15 - 1.33 mmol/L [facility] Comment: Note: ??Total bilirubin higher than 20 mg/dL may lead to falsely low ionized calcium. CL Whole Blood 107 98 - 107 mmol/L [facility] Gluc Whole Bld 93 65 - 199 mg/dL [facility] Comment:Diabetes: >=200 mg/d L plus symptoms. Lactate WB 0.8 0.5 - 2.2 mmol/L [facility] Blood specimen (specimen) 05/25/2017 11:27 AM EST 05/25/2017 11:27 AM EST Bienvenido Wong MD CHEMISTRY ORDERABLES [facility] [place] [address] * (ABNORMAL) BLOOD GAS 2 ARTERIAL (05/25/2017 11:04 AM EST) pH Art 7.37 7.35 - 7.45 [facility] pCO2 Art 48(H) 35 - 45 mmHg [facility] pO2 Art 442(H) 85 - 104 mmHg [facility] HCO3 Art 26.5(H) 20.0 - 26.0 mmol/L [facility] BE Art 1.2 -3.0 - 3.0 mmol/L [facility] Hgb Blood Gas 12.4 11.7 - 15.5 gm/dL [facility] O2HB Art 98.9(H) 94.0 - 97.0 % [facility] COHB Art 0.3 % [facility] Comment: Nonsmokers: 0.5-1.5% COHB Smokers: Variable, but usually less than 10% Toxic: 20-30% COHB Lethal: Greater than 60% COHB METHB Art 0.3 <=1.5 % [facility] Na Whole Blood 168(Critic al) 135 - 145 mmol/L [facility] Comment:Noted by instrumentation chemist. K Whole Blood 4.1 3.5 - 5.0 mmol/L [facility] Comment: Please note: Patients with WBC >100,000 may have falsely elevated Potassium levels. Contact the Clinical Chemistry Laboratory if there are any questions. ICa Whole Blood 1.19 1.15 - 1.33 mmol/L [facility] Comment: Note: ??Total bilirubin higher than 20 mg/dL may lead to falsely low ionized calcium. CL Whole Blood 105 98 - 107 mmol/L [facility] Gluc Whole Bld 82 65 - 199 mg/dL [facility] Comment:Diabetes: >=200 mg/d L plus symptoms. Lactate WB 1.0 0.5 - 2.2 mmol/L [facility] Blood specimen (specimen) 05/25/2017 11:04 AM EST 05/25/2017 11:04 AM EST Bienvenido Wong MD CHEMISTRY ORDERABLES [facility] [place] [address] * Prepare Coag Factors (Non-Hemophilia) (05/25/2017 10:15 AM EST) Dispensed? Yes [facility] Blood specimen (specimen) 05/25/2017 10:15 AM EST 05/25/2017 10:12 AM EST Narrative Resulting Agency Comment Spec In Lab Kuldeep Conner MD BLOOD BANK PRODUCT ORDERABLES Performing Organization Address [facility] de Phone Number [facility] [place] [address] * Prepare RBC (05/25/2017 10:15 AM EST) Dispensed? Yes [facility] Blood specimen (specimen) 05/25/2017 10:15 AM EST 05/25/2017 10:12 AM EST Narrative Resulting Agency Comment Spec In Lab Kuldeep Conner MD BLOOD BANK PRODUCT ORDERABLES Performing Organization Address [facility] de Phone Number [facility] [place] [address] * Heparin, low molecular weight assay (05/25/2017 9:50 AM EST) Heparin [id number] 0.38 IU/mL [facility] Comment: Guidelines for therapeutic unfractionated and [...] Lab Yessy Wahl APRN HEMATOLOGY ORDERA BLES Performing Organization Address [facility] Co de Phone Number [facility] [place] [address] * Urine Hold (05/25/2017 8:52 AM EST) Urine Hold Sample in lab. [facility] Urine specimen (specimen) Urine / Unknown 05/25/2017 8:52 AM EST 05/25/2017 9:19 AM EST Dereck Adams MD URINE ORDERABLES Performing Organization Address [facility] Co de Phone Number [facility] [place] [address] * Urine culture Clean Catch Urine (05/25/2017 7:59 AM EST) Urine Culture No growth (Less than 1,000 cfu/ml). [facility] Urine specimen obtained by clean catch procedure (specimen) 05/25/2017 7:59 AM EST 05/25/2017 9:23 AM EST Narrative Resulting Agency Comment Spec In Lab Bienvenido Wong MD MICROBIOLOGY - GENER AL ORDERABLES Performing Organization Address [facility] Co de Phone Number [facility] [place] [address] * POCT Glucose (05/25/2017 7:47 AM EST) Pathologist [facility] POC Glucose 97 65 - 199 mg/dL [facility] Comment: Supplemental ranges: <140 mg/dL before meals <180 mg/dL all other times of the day Blood specimen (specimen) 05/25/2017 7:47 AM EST 05/25/2017 7:47 AM EST Bienvenido Wong MD POINT OF CARE TEST O RDERABLES Performing Organization Address [facility] Co de Phone Number [facility] [place] [address] * Differential, Automated (05/25/2017 3:48 AM EST) Pathologist [facility] Neutrophils % 61.9 % [facility] Neutr Abs (ANC) 3.56 1.70 - 6.10 x10(3)/[facility] Lymphocytes % 22.7 % [facility] Lymphocytes Abs 1.3 0.9 - 3.2 x10(3)/[facility] Monocytes % 9.0 % [facility] Monocyte Abs 0.5 0.3 - 0.9 x10(3)/[facility] Eosinophils % 5.6 % [facility] Eosinophils Abs 0.3 0.0 - 0.4 x10(3)/[facility] Basophils % 0.5 % [facility] Basophils Abs 0.0 0.0 - 0.1 x10(3)/[facility] Immature Gran % 0.30 % [facility] Comment: Immature granulocytes(IG's)percentage and absolute count will include metamyelocytes, myelocytes, and promyelocytes. Blood smears from CBCs yielding IG's will be scanned manually for concordance. If this scan disagrees with the automated IG or if promyelocytes are noted, a manual differential will be performed. [place] Gran Abs 0.02 0.00 - 0.04 x10(3)/[facility] Blood specimen (specimen) 05/25/2017 3:48 AM EST 05/25/2017 3:54 AM EST Narrative Resulting Agency Comment Spec In Lab Verónica Watters APRN HEMATOLOGY ORDERAB LES Performing Organization Address City/State/[facility] Co de Phone Number [facility] [place] [address] * (ABNORMAL) Hemogram (05/25/2017 3:48 AM EST) WBC 5.8 4.0 - 9.5 x10(3)/[facility] RBC 3.88(L) 4.00 - 5.21 x10(6)/[facility] Hemoglobin 12.4 11.7 - 15.5 gm/dL [facility] Hematocrit 35.8 35.7 - 45.8 % [facility] MCV 92.3 82.6 - 94.4 fL [facility] MCH 32.0 27.1 - 32.0 pg [facility] MCHC 34.6 31.7 - 35.0 gm/dL [facility] Platelets 158 145 - 357 x10(3)/[facility] RDWSD 41.5 37.0 - 46.0 fL [facility] RDWCV 12.4 11.5 - 14.1 % [facility] MPV 10.4 7.6 - 12.9 fL [facility] nRBC % Auto 0.0 % [facility] nRBC Abs Auto 0.000 0.000 - 0.000 x10(3)/mcL [facility] Blood specimen (specimen) 05/25/2017 3:48 AM EST 05/25/2017 3:54 AM EST Narrative Resulting Agency Comment Spec In Lab Verónica Watters APRN HEMATOLOGY ORDERAB LES [facility] [place] [address] * (ABNORMAL) BMP w/fasting Glucose (05/25/2017 3:48 AM EST) Glucose Fasting 98 65 - 99 mg/dL [facility] Comment: ?Fasting* Glucose Interpretive Criteria Normal [...] of Diabetes Mellitus, Position Statement from the [place] [employer]. ??Diabetes Care, Volume 33, Supplement 1, Apr 2009 BUN 19(H) 8 - 18 mg/dL [facility] Creatinine 0.85 0.70 - 1.20 mg/dL [facility] Sodium 142 135 - 145 mmol/L [facility] Potassium 4.1 3.5 - 5.0 mmol/L [facility] Comment: Please note: ??Patients with WBC >100,000 may have falsely elevated Potassium levels. ??For accurate Potassium quantification in these patients send serum separator tube (gold top) for subsequent determinations. ??Contact the Clinical Chemistry Laboratory if there are any questions. Chloride 102 98 - 107 mmol/L [facility] CO2 25 22 - 31 mmol/L [facility] Anion Gap 15 5 - 15 mmol/L [facility] Calcium 9.0 8.5 - 10.5 mg/dL [facility] Estimated GFR >60 >=60 [facility] Comment: The reported eGFR should be multiplied by 1.2 for patients. The MDRD is not an appropriate measure of renal function for patients with body mass extremes or in patients with acute kidney failure. http://ePatientFinder/DHnkdep http://ePatientFinder/DHMCnkf Blood specimen (specimen) 05/25/2017 3:48 AM EST 05/25/2017 3:54 AM EST Narrative Resulting Agency Comment Spec In Lab Bienvenido Wong MD CHEMISTRY ORDERABLES Performing Organization Address City/State/[facility] Co de Phone Number [facility] [place] [address] * Heparin, low molecular weight assay (05/25/2017 3:48 AM EST) Heparin [id number] 0.47 IU/mL [facility] Comment: Guidelines for therapeutic unfractionated and [...] APRN HEMATOLOGY ORDERAB LES Performing Organization Address [facility] Co de Phone Number [facility] [place] [address] * ABORH Recheck Status (05/24/2017 8:27 PM EST) [facility] ABORH Type Recheck Completed [facility] Blood specimen (specimen) 05/24/2017 8:27 PM EST 05/24/2017 8:54 PM EST Narrative Resulting Agency Comment Spec In Lab Verónica Watters APRN BLOOD BANK LAB ORD ERABLES Performing Organization Address [facility] Co de Phone Number [facility] [place] [address] * Antibody screen (05/24/2017 8:27 PM EST) [facility] Ab Screen Interp Negative [facility] Expires at [id number] on: 05/27/2017 [facility] Blood specimen (specimen) 05/24/2017 8:27 PM EST 05/24/2017 8:54 PM EST Narrative Resulting Agency Comment Spec In Lab Verónica Watters APRN BLOOD BANK LAB ORD ERABLES [facility] [place] [address] * ABO/Rh Typing (05/24/2017 8:27 PM EST) Pathologist [facility] ABORH Type A Pos [facility] Blood specimen (specimen) 05/24/2017 8:27 PM EST 05/24/2017 8:54 PM EST Narrative Resulting Agency Comment Spec In Lab Verónica Watters SPEECH COACH BLOOD BANK LAB ORD ERABLES Performing Organization Address City/[facility] Co de Phone Number [facility] [place] [address] * Heparin, low molecular weight assay (05/24/2017 8:27 PM EST) [facility] Heparin [id number] 0.41 IU/mL [facility] Comment: Guidelines for therapeutic unfractionated and [...] APRN HEMATOLOGY ORDERAB LES Performing Organization Address City/State/[facility] Co de Phone Number [facility] [place] [address] * Heparin, low molecular weight assay (05/24/2017 1:59 PM EST) Heparin [id number] 0.66 IU/mL [facility] Comment: Guidelines for therapeutic unfractionated and [...] MD HEMATOLOGY ORDERABLE S Performing Organization Address [facility] Co de Phone Number [facility] [place] [address] * Gold Tube HOLD (05/24/2017 12:25 PM EST) Gold Hold Sample in lab. [facility] Blood specimen (specimen) No Charge / Unknown 05/24/2017 12:25 PM EST 05/24/2017 12:55 PM EST Bienvenido Wong MD CHEMISTRY ORDERABLES Performing Organization Address [facility] Co de Phone Number [facility] [place] [address] * (ABNORMAL) APTT (05/24/2017 10:46 AM EST) Pathologist [facility] PTT 107(H) 25 - 35 sec [facility] Comment: The recommended therapeutic range for full dose, unfractionated heparin at [facility] is 80 ? 114 seconds. The use of the anti-Xa (heparin) level rather than the PTT is recommended for monitoring anticoagulation intensity in critically ill patients receiving unfractionated heparin by continuous IV infusion. Blood specimen (specimen) Venous Draw / Unknown 05/24/2017 10:46 AM EST 05/24/2017 11:09 AM EST Narrative Resulting Agency Comment Spec In Lab Verónica Watters APRN HEMATOLOGY ORDERAB LES [facility] [place] [address] * Differential, Automated (05/24/2017 3:58 AM EST) [facility] Neutrophils % 67.1 % [facility] Neutr Abs (ANC) 4.27 1.70 - 6.10 x10(3)/[facility] Lymphocytes % 20.8 % [facility] Lymphocytes Abs 1.3 0.9 - 3.2 x10(3)/[facility] Monocytes % 7.5 % [facility] Monocyte Abs 0.5 0.3 - 0.9 x10(3)/[facility] LAB[facility] Eosinophils % 3.9 % [facility] Eosinophils Abs 0.2 0.0 - 0.4 x10(3)/[facility] LABORATORY Basophils % 0.5 % [facility] Basophils Abs 0.0 0.0 - 0.1 x10(3)/[facility] LABORATORY Immature Gran % 0.20 % [facility] Comment: Immature granulocytes(IG's)percentage and absolute count will include metamyelocytes, myelocytes, and promyelocytes. Blood smears from CBCs yielding IG's will be scanned manually for concordance. If this scan disagrees with the automated IG or if promyelocytes are noted, a manual differential will be performed. [place] Gran Abs 0.01 0.00 - 0.04 x10(3)/[facility] Blood specimen (specimen) 05/24/2017 3:58 AM EST 05/24/2017 4:07 AM EST Narrative Resulting Agency Comment Spec In Lab Melody Collins APRN HEMATOLOGY ORDERA BLES [facility] [place] [address] * (ABNORMAL) Hemogram (05/24/2017 3:58 AM EST) WBC 6.4 4.0 - 9.5 x10(3)/[facility] LAB[facility]ATORY RBC 3.82(L) 4.00 - 5.21 x10(6)/[facility] Hemoglobin 12.5 11.7 - 15.5 gm/dL [facility] Hematocrit 35.0(L) 35.7 - 45.8 % [facility] MCV 91.6 82.6 - 94.4 fL [facility] MCH 32.7(H) 27.1 - 32.0 pg [facility] MCHC 35.7(H) 31.7 - 35.0 gm/dL [facility] Platelets 163 145 - 357 x10(3)/[facility] LABORATORY RDWSD 41.9 37.0 - 46.0 [facility] LABORATORY RDWCV 12.7 11.5 - 14.1 % [facility] MPV 11.2 7.6 - 12.9 [facility] nRBC % Auto 0.0 % [facility] nRBC Abs Auto 0.000 0.000 - 0.000 x10(3)/[facility] Blood specimen (specimen) 05/24/2017 3:58 AM EST 05/24/2017 4:07 AM EST Narrative Resulting Agency Comment Spec In Lab Melody Collins APRN HEMATOLOGY ORDERA BLES Performing Organization Address [facility] de Phone Number [facility] [place] [address] * (ABNORMAL) APTT (05/24/2017 3:58 AM EST) PTT 126(H) 25 - 35 sec [facility] Comment: The recommended therapeutic range for full dose, unfractionated heparin at [facility] is 80 ? 114 seconds. The use of the anti-Xa (heparin) level rather than the PTT is recommended for monitoring anticoagulation intensity in critically ill patients receiving unfractionated heparin by continuous IV infusion. Blood specimen (specimen) 05/24/2017 3:58 AM EST 05/24/2017 4:07 AM EST Narrative Resulting Agency Comment Spec In Lab Bienvenido Wong MD HEMATOLOGY ORDERABLE S Performing Organization Address [facility] de Phone Number [facility] [place] [address] * BMP w/fasting Glucose (05/24/2017 3:58 AM EST) Glucose Fasting 93 65 - 99 mg/dL [facility] Comment: ?Fasting* Glucose Interpretive Criteria Normal [...] of Diabetes Mellitus, Position Statement from the [place] [employer]. ??Diabetes Care, Volume 33, Supplement 1, Apr 2009 BUN 18 8 - 18 mg/dL [facility] Creatinine 0.86 0.70 - 1.20 mg/dL [facility] Sodium 141 135 - 145 mmol/L [facility] Potassium 4.3 3.5 - 5.0 mmol/L [facility] Comment: Please note: ??Patients with WBC >100,000 may have falsely elevated Potassium levels. ??For accurate Potassium quantification in these patients send serum separator tube (gold top) for subsequent determinations. ??Contact the Clinical Chemistry Laboratory if there are any questions. Chloride 103 98 - 107 mmol/L [facility] CO2 25 22 - 31 mmol/L [facility] Anion Gap 13 5 - 15 mmol/L [facility] Calcium 9.4 8.5 - 10.5 mg/dL [facility] Estimated GFR >60 >=60 [facility] Comment: The reported eGFR should be multiplied by 1.2 for patients. The MDRD is not an appropriate measure of renal function for patients with body mass extremes or in patients with acute kidney failure. http://USEUM.Wabeebwa/DHnkdep http://ePatientFinder/[facility] Blood specimen (specimen) 05/24/2017 3:58 AM EST 05/24/2017 4:07 AM EST Narrative Resulting Agency Comment Spec In Lab Bienvenido Wong MD CHEMISTRY ORDERABLES Performing Organization Address City/State/[facility] Co de Phone Number [facility] [place] [address] * (ABNORMAL) APTT (05/23/2017 7:36 PM EST) PTT 122(H) 25 - 35 sec [facility] Comment: The recommended therapeutic range for full dose, unfractionated heparin at [facility] is 80 ? 114 seconds. The use of the anti-Xa (heparin) level rather than the PTT is recommended for monitoring anticoagulation intensity in critically ill patients receiving unfractionated heparin by continuous IV infusion. Blood specimen (specimen) 05/23/2017 7:36 PM EST 05/23/2017 7:54 PM EST Narrative Resulting Agency Comment Spec In Lab Bienvenido Wong MD HEMATOLOGY ORDERABLE S Performing Organization Address [facility] Co de Phone Number [facility] [place] [address] * (ABNORMAL) APTT (05/23/2017 1:33 PM EST) [facility] PTT 111(H) 25 - 35 sec [facility] Comment: The recommended therapeutic range for full dose, unfractionated heparin at [facility] is 80 ? 114 seconds. The use of the anti-Xa (heparin) level rather than the PTT is recommended for monitoring anticoagulation intensity in critically ill patients receiving unfractionated heparin by continuous IV infusion. Blood specimen (specimen) 05/23/2017 1:33 PM EST 05/23/2017 1:47 PM EST Narrative Resulting Agency Comment Spec In Lab Bienvenido Wong MD HEMATOLOGY ORDERABLE S Performing Organization Address [facility] Co de Phone Number [facility] [place] [address] * (ABNORMAL) APTT (05/23/2017 6:54 AM EST) [facility] PTT 126(H) 25 - 35 sec [facility] Comment: The recommended therapeutic range for full dose, unfractionated heparin at [facility] is 80 ? 114 seconds. The use of the anti-Xa (heparin) level rather than the PTT is recommended for monitoring anticoagulation intensity in critically ill patients receiving unfractionated heparin by continuous IV infusion. Blood specimen (specimen) 05/23/2017 6:54 AM EST 05/23/2017 7:15 AM EST Narrative Resulting Agency Comment Spec In Lab Bienvenido Wong MD HEMATOLOGY ORDERABLE S Performing Organization Address [facility] Co de Phone Number [facility] [place] [address] * Differential, Automated (05/23/2017 12:50 AM EST) Pathologist [facility] Neutrophils % 63.0 % [facility] Neutr Abs (ANC) 4.70 1.70 - 6.10 x10(3)/[facility] Lymphocytes % 22.3 % [facility] Lymphocytes Abs 1.7 0.9 - 3.2 x10(3)/[facility]OR[facility] Monocytes % 9.2 % [facility] Monocyte Abs 0.7 0.3 - 0.9 x10(3)/[facility]OR[facility] Eosinophils % 4.7 % [facility] Eosinophils Abs 0.4 0.0 - 0.4 x10(3)/[facility] LABOR[facility] Basophils % 0.5 % [facility] Basophils Abs 0.0 0.0 - 0.1 x10(3)/[facility] Immature Gran % 0.30 % [facility] Comment: Immature granulocytes(IG's)percentage and absolute count will include metamyelocytes, myelocytes, and promyelocytes. Blood smears from CBCs yielding IG's will be scanned manually for concordance. If this scan disagrees with the automated IG or if promyelocytes are noted, a manual differential will be performed. [place] Gran Abs 0.02 0.00 - 0.04 x10(3)/[facility] Blood specimen (specimen) 05/23/2017 12:50 AM EST 05/23/2017 1:10 AM EST Narrative Resulting Agency Comment Spec In Lab Melody Collins APRN HEMATOLOGY ORDERA BLES [facility] [place] [address] * (ABNORMAL) Hemogram (05/23/2017 12:50 AM EST) Pathologist [facility] WBC 7.5 4.0 - 9.5 x10(3)/[facility] LABOR[facility] RBC 3.78(L) 4.00 - 5.21 x10(6)/[facility] Hemoglobin 12.4 11.7 - 15.5 gm/dL [facility] Hematocrit 34.9(L) 35.7 - 45.8 % [facility] MCV 92.3 82.6 - 94.4 [facility] MCH 32.8(H) 27.1 - 32.0 pg [facility] MCHC 35.5(H) 31.7 - 35.0 gm/dL [facility] Platelets 163 145 - 357 x10(3)/[facility]OR[facility]ORY RDWSD 42.5 37.0 - 46.0 [facility] RDWCV 12.6 11.5 - 14.1 % [facility] MPV 11.3 7.6 - 12.9 [facility] nRBC % Auto 0.0 % [facility] nRBC Abs Auto 0.000 0.000 - 0.000 x10(3)/[facility] Blood specimen (specimen) 05/23/2017 12:50 AM EST 05/23/2017 1:10 AM EST Narrative Resulting Agency Comment Spec In Lab Melody Collins APRN HEMATOLOGY ORDERA BLES [facility] [place] [address] * (ABNORMAL) Basic Metabolic Panel (non-fasting) (05/23/2017 12:50 AM EST) Glucose Lvl 101 65 - 199 mg/dL [facility] Comment:Diabetes: >=200 mg/d L plus symptoms BUN 22(H) 8 - 18 mg/dL [facility] Creatinine 0.83 0.70 - 1.20 mg/dL [facility] Sodium 141 135 - 145 mmol/L [facility] Potassium 4.0 3.5 - 5.0 mmol/L [facility] Comment: Please note: ??Patients with WBC >100,000 may have falsely elevated Potassium levels. ??For accurate Potassium quantification in these patients send serum separator tube (gold top) for subsequent determinations. ??Contact the Clinical Chemistry Laboratory if there are any questions. Chloride 102 98 - 107 mmol/L [facility] CO2 26 22 - 31 mmol/L [facility] Anion Gap 13 5 - 15 mmol/L [facility] Calcium 8.8 8.5 - 10.5 mg/dL [facility] Estimated GFR >60 >=60 [facility] Comment: The reported eGFR should be multiplied by 1.2 for patients. The MDRD is not an appropriate measure of renal function for patients with body mass extremes or in patients with acute kidney failure. http://ePatientFinder/DHnkdep http://ePatientFinder/DHnkf Blood specimen (specimen) 05/23/2017 12:50 AM EST 05/23/2017 1:10 AM EST Narrative Resulting Agency Comment Spec In Lab Bienvenido Wong MD CHEMISTRY ORDERABLES Performing Organization Address City/[facility]/ZIP Co de Phone Number [facility] [place] [address] * (ABNORMAL) APTT (05/23/2017 12:50 AM EST) [facility] PTT 95(H) 25 - 35 sec [facility] Comment: The recommended therapeutic range for full dose, unfractionated heparin at [facility] is 80 ? 114 seconds. The use of the anti-Xa (heparin) level rather than the PTT is recommended for monitoring anticoagulation intensity in critically ill patients receiving unfractionated heparin by continuous IV infusion. Blood specimen (specimen) 05/23/2017 12:50 AM EST 05/23/2017 1:10 AM EST Narrative Resulting Agency Comment Spec In Lab Bienvenido Wong MD HEMATOLOGY ORDERABLE S Performing Organization Address City/[facility]/ZIP Co de Phone Number [facility] [place] [address] * (ABNORMAL) Prothrombin Time (05/23/2017 12:50 AM EST) PT 14.7(H) 11.8 - 14.0 sec [facility] INR 1.2(H) 0.9 - 1.1 [facility] Comment: An INR <2.0 [...] APRN HEMATOLOGY ORDERA BLES Performing Organization Address City/[facility]/ZIP Co de Phone Number [facility] [place] [address] * (ABNORMAL) APTT (05/22/2017 7:27 PM EST) PTT 76(H) 25 - 35 sec [facility] Comment: The recommended therapeutic range for full dose, unfractionated heparin at [facility] is 80 ? 114 seconds. The use of the anti-Xa (heparin) level rather than the PTT is recommended for monitoring anticoagulation intensity in critically ill patients receiving unfractionated heparin by continuous IV infusion. Blood specimen (specimen) 05/22/2017 7:27 PM EST 05/22/2017 7:54 PM EST Narrative Resulting Agency Comment Spec In Lab Bienvenido Wong MD HEMATOLOGY ORDERABLE S Performing Organization Address City/[facility]/ZIP Co de Phone Number [facility] [place] [address] * (ABNORMAL) Urinalysis Microscopic Exam (05/22/2017 3:14 PM EST) Pathologist [facility] RBC UA 158(H) 0 - 4 /HPF [facility] WBC UA 2 0 - 5 /HPF [facility] Bacteria UA Many(A) None /HPF [facility] Squam Epith UA 1 <=4 /HPF [facility] Trans Epith UA 1 <=1 /HPF [facility] Urine specimen obtained by clean catch procedure (specimen) 05/22/2017 3:14 PM EST 05/22/2017 3:27 PM EST Narrative Resulting Agency Comment Spec In Lab Vikki Barron PA URINE ORDERABLES Performing Organization Address City/[facility]/ZIP Co de Phone Number [facility] [place] [address] * Urine Hold (05/22/2017 3:14 PM EST) Urine Hold Sample in lab. [facility] Urine specimen (specimen) Urine / Unknown 05/22/2017 3:14 PM EST 05/22/2017 3:27 PM EST Vikki Barron PA URINE ORDERABLES Performing Organization Address City/[facility] Co de Phone Number [facility] [place] [address] * (ABNORMAL) Urinalysis with reflex Culture (05/22/2017 3:14 PM EST) Glucose UA Negative Negative mg/dL [facility] Protein UA 30(A) Negative mg/dL [facility] Bilirubin UA Negative Negative mg/dL [facility] Comment: Clinical correlation required for positive Urine Bilirubin results as false positive may occur with some drugs and drug related products. If a false positive is suspected a serum total bilirubin should be considered if clinically indicated. Urobilinogen UA Normal Normal mg/dL [facility] pH UA 6.0 5.0 - 8.0 [facility] Blood UA Large(A) Negative mg/dL [facility] Ketones UA Negative Negative mg/dL [facility] Nitrite UA Negative Negative [facility] Leukocytes UA Negative Negative [facility] Appearance UA Cloudy(A) Clear [facility] Spec Creola UA 1.010 1.002 - 1.030 [facility] Color UA Yellow Yellow [facility] Culture Reflexed No [facility] Urine specimen obtained by clean catch procedure (specimen) 05/22/2017 3:14 PM EST 05/22/2017 3:27 PM EST Narrative Resulting Agency Comment Spec In Lab Bienvenido Wong MD URINE ORDERABLES Performing Organization Address [facility] Co de Phone Number [facility] [place] [address] * (ABNORMAL) APTT (05/22/2017 12:55 PM EST) Pathologist [facility] PTT 133(Criti mary) 25 - 35 sec [facility] Comment: Called by: [email or web address], Read back by: jennifer garcia rn, Date/Time:05/22/17 13:29. The recommended therapeutic range for full dose, unfractionated heparin at [facility] is 80 ? 114 seconds. The use of the anti-Xa (heparin) level rather than the PTT is recommended for monitoring anticoagulation intensity in critically ill patients receiving unfractionated heparin by continuous IV infusion. Blood specimen (specimen) 05/22/2017 12:55 PM EST 05/22/2017 1:13 PM EST Narrative Resulting Agency Comment Spec In Lab Bienvenido Wong MD HEMATOLOGY ORDERABLE S Performing Organization Address City/[facility]/ZIP Co de Phone Number [facility] [place] [address] * EKG 12 Lead (05/22/2017 7:48 AM EST) Ventricular rate 65 BPM MUSE SYSTEM Atrial Rate 65 BPM MUSE SYSTEM P-R Interval 166 ms MUSE SYSTEM QRS Duration 108 ms MUSE SYSTEM Q-T Interval 454 ms MUSE SYSTEM QTC Calculated (Bezet) 472 ms MUSE SYSTEM Calculated P [place] 17 degrees MUSE SYSTEM Calculated R [place] -2 degrees MUSE SYSTEM Calculated T [place] 5 degrees MUSE SYSTEM INTERPRETATION Normal sinus rhythm Possible Left atrial enlargement Left ventricular hypertrophy Possible Inferior infarct (cited on or before 19-MAY-2017) T wave abnormality, consider inferior ischemia Abnormal ECG When compared with ECG of 21-MAY-2017 07:11, No significant change was found I personally reviewed the tracing and edited the fellows interpretation Confirmed by fellow MD Rhonda, Chloé Cid ([id number]) on 05/22/2017 10:57:59 AM Confirmed by MD Galeas Jon ([id number]) on 05/23/2017 5:01:21 PM MUSE SYSTEM 05/22/2017 7:48 AM EST 05/23/2017 5:01 PM EST Melody Collins APRN ECG ORDERABLES MUSE SYSTEM * Basic Metabolic Panel (non-fasting) (05/22/2017 5:46 AM EST) Glucose Lvl 91 65 - 199 mg/dL [facility] Comment:Diabetes: >=200 mg/d L plus symptoms BUN 18 8 - 18 mg/dL [facility] Creatinine 0.90 0.70 - 1.20 mg/dL [facility] Sodium 143 135 - 145 mmol/L [facility] Potassium 4.5 3.5 - 5.0 mmol/L [facility] Comment: Please note: ??Patients with WBC >100,000 may have falsely elevated Potassium levels. ??For accurate Potassium quantification in these patients send serum separator tube (gold top) for subsequent determinations. ??Contact the Clinical Chemistry Laboratory if there are any questions. Chloride 103 98 - 107 mmol/L [facility] CO2 25 22 - 31 mmol/L [facility] Anion Gap 15 5 - 15 mmol/L [facility] Calcium 8.9 8.5 - 10.5 mg/dL [facility] Estimated GFR >60 >=60 [facility] Comment: The reported eGFR should be multiplied by 1.2 for patients. The MDRD is not an appropriate measure of renal function for patients with body mass extremes or in patients with acute kidney failure. http://USEUM.Wabeebwa/DHnkdep http://USEUM.com/DHMCnkf Blood specimen (specimen) 05/22/2017 5:46 AM EST 05/22/2017 6:05 AM EST Narrative Resulting Agency Comment Spec In Lab Bienvenido Wong MD CHEMISTRY ORDERABLES Performing Organization Address [facility] Co de Phone Number [facility] [place] [address] * (ABNORMAL) APTT (05/22/2017 5:46 AM EST) PTT 67(H) 25 - 35 sec [facility] Comment: The recommended therapeutic range for full dose, unfractionated heparin at [facility] is 80 ? 114 seconds. The use of the anti-Xa (heparin) level rather than the PTT is recommended for monitoring anticoagulation intensity in critically ill patients receiving unfractionated heparin by continuous IV infusion. Blood specimen (specimen) 05/22/2017 5:46 AM EST 05/22/2017 6:05 AM EST Narrative Resulting Agency Comment Spec In Lab Melody Collins APRN HEMATOLOGY ORDERA BLES Performing Organization Address [facility] de Phone Number [facility] [place] [address] * Differential, Automated (05/22/2017 5:46 AM EST) Neutrophils % 71.2 % [facility] Neutr Abs (ANC) 5.69 1.70 - 6.10 x10(3)/[facility] Lymphocytes % 16.7 % [facility] Lymphocytes Abs 1.3 0.9 - 3.2 x10(3)/[facility] Monocytes % 7.4 % [facility] Monocyte Abs 0.6 0.3 - 0.9 x10(3)/[facility] Eosinophils % 3.9 % [facility] Eosinophils Abs 0.3 0.0 - 0.4 x10(3)/[facility] Basophils % 0.5 % [facility] Basophils Abs 0.0 0.0 - 0.1 x10(3)/[facility] Immature Gran % 0.30 % [facility] Comment: Immature granulocytes(IG's)percentage and absolute count will include metamyelocytes, myelocytes, and promyelocytes. Blood smears from CBCs yielding IG's will be scanned manually for concordance. If this scan disagrees with the automated IG or if promyelocytes are noted, a manual differential will be performed. [place] Gran Abs 0.02 0.00 - 0.04 x10(3)/[facility] Blood specimen (specimen) 05/22/2017 5:46 AM EST 05/22/2017 6:05 AM EST Narrative Resulting Agency Comment Spec In Lab Melody Collins APRN HEMATOLOGY ORDERA BLES Performing Organization Address City/State/[facility] Co de Phone Number [facility] [place] [address] * (ABNORMAL) Hemogram (05/22/2017 5:46 AM EST) WBC 8.0 4.0 - 9.5 x10(3)/[facility] RBC 3.98(L) 4.00 - 5.21 x10(6)/[facility] Hemoglobin 13.0 11.7 - 15.5 gm/dL [facility] Hematocrit 36.4 35.7 - 45.8 % [facility] MCV 91.5 82.6 - 94.4 fL [facility] MCH 32.7(H) 27.1 - 32.0 pg [facility] MCHC 35.7(H) 31.7 - 35.0 gm/dL [facility] Platelets 168 145 - 357 x10(3)/[facility] RDWSD 41.9 37.0 - 46.0 fL [facility] RDWCV 12.4 11.5 - 14.1 % [facility] MPV 11.1 7.6 - 12.9 fL [facility] nRBC % Auto 0.0 % [facility] nRBC Abs Auto 0.000 0.000 - 0.000 x10(3)/mcL [facility] Blood specimen (specimen) 05/22/2017 5:46 AM EST 05/22/2017 6:05 AM EST Narrative Resulting Agency Comment Spec In Lab Melody Collins APRN HEMATOLOGY ORDERA BLES Performing Organization Address [facility] Co de Phone Number [facility] [place] [address] * (ABNORMAL) Prothrombin Time (05/22/2017 5:46 AM EST) PT 14.7(H) 11.8 - 14.0 sec [facility] INR 1.2(H) 0.9 - 1.1 [facility] Comment: An INR <2.0 [...] APRN HEMATOLOGY ORDERA BLES Performing Organization Address [facility] Co de Phone Number [facility] [place] [address] * EKG 12 Lead (05/21/2017 7:11 AM EST) Ventricular rate 62 BPM MUSE SYSTEM Atrial Rate 62 BPM MUSE SYSTEM P-R Interval 168 ms MUSE SYSTEM QRS Duration 108 ms MUSE SYSTEM Q-T Interval 442 ms MUSE SYSTEM QTC Calculated (Bezet) 448 ms MUSE SYSTEM Calculated P [place] 14 degrees MUSE SYSTEM Calculated T [place] -5 degrees MUSE SYSTEM INTERPRETATION Normal sinus [...] interpretation Confirmed by fellow MD Kathy, Zhang ([id number]) on 05/21/2017 10:33:48 AM Confirmed by MD Gudelia, Valdo ([id number]) on 05/21/2017 3:36:10 PM MUSE SYSTEM 05/21/2017 7:11 AM EST 05/21/2017 3:36 PM EST Melody Collins APRN ECG ORDERABLES Performing Organization Address City/[facility]/ZIP Co de Phone Number MUSE SYSTEM * (ABNORMAL) APTT (05/21/2017 3:53 AM EST) PTT 92(H) 25 - 35 sec [facility] Comment: The recommended therapeutic range for full dose, unfractionated heparin at [facility] is 80 ? 114 seconds. The use of the anti-Xa (heparin) level rather than the PTT is recommended for monitoring anticoagulation intensity in critically ill patients receiving unfractionated heparin by continuous IV infusion. Blood specimen (specimen) 05/21/2017 3:53 AM EST 05/21/2017 4:08 AM EST Narrative Resulting Agency Comment Spec In Lab Melody Collins APRN HEMATOLOGY ORDERA BLES [facility] [place] [address] * Differential, Automated (05/21/2017 3:53 AM EST) Pathologist [facility] Neutrophils % 58.1 % [facility] Neutr Abs (ANC) 3.20 1.70 - 6.10 x10(3)/mcL [facility] Lymphocytes % 26.3 % [facility] Lymphocytes Abs 1.4 0.9 - 3.2 x10(3)/[facility] Monocytes % 9.8 % [facility] Monocyte Abs 0.5 0.3 - 0.9 x10(3)/[facility] Eosinophils % 4.7 % [facility] Eosinophils Abs 0.3 0.0 - 0.4 x10(3)/[facility] Basophils % 0.9 % [facility] Basophils Abs 0.0 0.0 - 0.1 x10(3)/[facility] Immature Gran % 0.20 % [facility] Comment: Immature granulocytes(IG's)percentage and absolute count will include metamyelocytes, myelocytes, and promyelocytes. Blood smears from CBCs yielding IG's will be scanned manually for concordance. If this scan disagrees with the automated IG or if promyelocytes are noted, a manual differential will be performed. [place] Gran Abs 0.01 0.00 - 0.04 x10(3)/[facility] Blood specimen (specimen) 05/21/2017 3:53 AM EST 05/21/2017 4:08 AM EST Narrative Resulting Agency Comment Spec In Lab Melody Collins APRN HEMATOLOGY ORDERA BLES Performing Organization Address City/State/[facility] Co de Phone Number [facility] [place] [address] * (ABNORMAL) Hemogram (05/21/2017 3:53 AM EST) WBC 5.5 4.0 - 9.5 x10(3)/[facility] RBC 4.15 4.00 - 5.21 x10(6)/[facility] Hemoglobin 13.5 11.7 - 15.5 gm/dL [facility] Hematocrit 38.2 35.7 - 45.8 % [facility] MCV 92.0 82.6 - 94.4 fL [facility] MCH 32.5(H) 27.1 - 32.0 pg [facility] MCHC 35.3(H) 31.7 - 35.0 gm/dL [facility] Platelets 167 145 - 357 x10(3)/[facility] RDWSD 42.9 37.0 - 46.0 fL [facility] RDWCV 12.6 11.5 - 14.1 % [facility] MPV 10.6 7.6 - 12.9 [facility] nRBC % Auto 0.0 % [facility] nRBC Abs Auto 0.000 0.000 - 0.000 x10(3)/[facility] Blood specimen (specimen) 05/21/2017 3:53 AM EST 05/21/2017 4:08 AM EST Narrative Resulting Agency Comment Spec In Lab Melody Collins APRN HEMATOLOGY ORDERA BLES Performing Organization Address [facility] de Phone Number [facility] [place] [address] * (ABNORMAL) Prothrombin Time (05/21/2017 3:53 AM EST) PT 17.2(H) 11.8 - 14.0 sec [facility] INR 1.4(H) 0.9 - 1.1 [facility] Comment: An INR <2.0 [...] Lab Melody Collins APRN HEMATOLOGY ORDERA BLES [facility] [place] [address] * (ABNORMAL) BMP w/fasting Glucose (05/21/2017 3:53 AM EST) Glucose Fasting 95 65 - 99 mg/dL [facility] Comment: ?Fasting* Glucose Interpretive Criteria Normal [...] of Diabetes Mellitus, Position Statement from the [place] [employer]. ??Diabetes Care, Volume 33, Supplement 1, Apr 2009 BUN 19(H) 8 - 18 mg/dL [facility] Creatinine 0.75 0.70 - 1.20 mg/dL [facility] Sodium 140 135 - 145 mmol/L [facility] Potassium 4.3 3.5 - 5.0 mmol/L [facility] Comment: Please note: ??Patients with WBC >100,000 may have falsely elevated Potassium levels. ??For accurate Potassium quantification in these patients send serum separator tube (gold top) for subsequent determinations. ??Contact the Clinical Chemistry Laboratory if there are any questions. Chloride 102 98 - 107 mmol/L [facility] CO2 26 22 - 31 mmol/L [facility] Anion Gap 12 5 - 15 mmol/L [facility] Calcium 9.1 8.5 - 10.5 mg/dL [facility] Estimated GFR >60 >=60 [facility] Comment: The reported eGFR should be multiplied by 1.2 for patients. The MDRD is not an appropriate measure of renal function for patients with body mass extremes or in patients with acute kidney failure. http://USEUM.Wabeebwa/DHnkdep http://USEUM.com/DHMCnkf Blood specimen (specimen) 05/21/2017 3:53 AM EST 05/21/2017 4:08 AM EST Narrative Resulting Agency Comment Spec In Lab Melody Collins APRN CHEMISTRY ORDERAB LES Performing Organization Address [facility] Co de Phone Number [facility] [place] [address] * (ABNORMAL) APTT (05/20/2017 10:00 PM EST) [facility] PTT 86(H) 25 - 35 sec [facility] Comment: The recommended therapeutic range for full dose, unfractionated heparin at [facility] is 80 ? 114 seconds. The use of the anti-Xa (heparin) level rather than the PTT is recommended for monitoring anticoagulation intensity in critically ill patients receiving unfractionated heparin by continuous IV infusion. Blood specimen (specimen) 05/20/2017 10:00 PM EST 05/20/2017 10:06 PM EST Narrative Resulting Agency Comment Spec In Lab Jeff Hernadez MD HEMATOLOGY ORDERABLE S Performing Organization Address [facility] de Phone Number [facility] [place] [address] * (ABNORMAL) Point of Care Blood Gas Historical (05/20/2017 10:58 AM EST) [facility] POC pH 7.39 7.35 - 7.45 [facility] POC PCO2 43 35 - 45 mmHg [facility] POC PO2 61(L) 85 - 104 mmHg [facility] POC Base Excess 1.0 -3.0 - 3.0 mmol/L [facility] POC HCO3 25.8 20.0 - 26.0 mmol/L [facility] POC Sodium 139 135 - 145 mmol/L [facility] POC Potassium 4.2 3.5 - 5.0 mmol/L [facility] POC Ionized Ca 1.22 1.15 - 1.33 mmol/L [facility] POC Hematocrit 32.0(L) 34.0 - 45.0 % [facility] POC Calc Hgb 10.9(L) 11.2 - 15.7 gm/dL [facility] Comment:The calculation of h emoglobin from hematocrit assumes a normal MCHC. POC Bgas Loc CC LAB [facility] Blood specimen (specimen) 05/20/2017 10:58 AM EST 05/25/2017 8:52 AM EST Bienvenido Wong MD CHEMISTRY ORDERABLES Performing Organization Address [facility] Co de Phone Number [facility] [place] [address] * CARDIAC CATHETERIZATION (05/20/2017 10:07 AM EST) Anatomical Region Laterality Modality Other Narrative 05/21/2017 2:36 AM EST ?[facility] ? Cardiac Catheterization/Intervention Report ? Patient Name: Noah Dumont ? Procedure Date: 05/20/2017 ? A #: [id number] ? Primary Physician: Angel, Phuong J ? Case #: [id number] ? File Name: [id number] ? Catheterization Order Number: [id number] ? [facility] ? Final Report [place], [place] ? Patient Name: ? Noah M. Julia ? ID#: ?[id number] ? : ?1970 ? Procedure Date: ? May 20, 2017 ?Case #: ? [id number] ? Room: ? 2 ? Case Physician: ? Phuong Ortiz M.D. ?Start: ?09:14 ? Admission: ??05/17/2017 ? Referring Physician: ??Mckenna Genao M.D. ? Discharge: ??05/30/2017 ? Procedures: ?* Coronary Angiography ?* Right Heart Catheterization ?* Oximetry ?* Arterial Blood Gases ? History ?Noah Dumont is a 47 year old woman. [...] unlikely to be ischemic (w/i 14 ?days). [employer] [employer] angina class was III. No [...] ?heart catheterization, oximetry and ABG. ? Phuong Ortiz, ? M.D. ? Electronically Signed by: Phuong Ortiz M.D. ? Report Finalized: 05/20/2017 ??17:45 ? Report Last Ammended: 07/27/2017 ??05:25 ? Procedure Note Phuong Ortiz, - 07/27/2017 [facility] Cardiac Catheterization/Intervention Report Patient Name: Noah Dumont Procedure Date: 05/20/2017 A #: [id number] Primary Physician: Phuong Ortiz Case #: [id number] File Name: [id number] Catheterization Order Number: [id number] [facility] FinalReport [place], [place] Patient Name: Noah Dumont ID#:[id number] :1970 Procedure Date: May 20, 2017 Case [...] unlikely to be ischemic (w/i 14 days). [employer] [employer] angina class was III. Nostress [...] 12.1 minutes, dose area product was 25,801 [id number] air kerma was 366 mGY. The patient [...] be considered. Comments: Results discussed with Dr Hernadez and Ubaldo, and patient and herhusband. Note extensive lidocaine [...] (Bezet) 465 ms MUSE SYSTEM Calculated P [place] 15 degrees MUSE SYSTEM Calculated R [place] 2 degrees MUSE SYSTEM Calculated T [place] -4 degrees MUSE SYSTEM INTERPRETATION Sinus bradycardia Voltage criteria for left ventricular hypertrophy T wave abnormality, consider inferior ischemia Cannot rule out Inferior infarct (cited on or before 19-MAY-2017 Abnormal ECG When compared with ECG of 19-MAY-2017 17:20, (unconfirmed) No significant change was found I personally reviewed the tracing and edited the fellows interpretation Confirmed by fellow MD Rhonda, Chloé Cid ([id number]) on 05/20/2017 10:44:38 AM Confirmed by MD Galeas Jon ([id number]) on 05/20/2017 4:16:12 PM MUSE SYSTEM 05/20/2017 7:07 AM EST 05/20/2017 4:16 PM EST Melody Arturo Collins APRN ECG ORDERABLES MUSE SYSTEM * Differential, Automated (05/20/2017 5:13 AM EST) Neutrophils % 53.8 % [facility] Neutr Abs (ANC) 3.22 1.70 - 6.10 x10(3)/[facility] Lymphocytes % 29.2 % [facility] Lymphocytes Abs 1.8 0.9 - 3.2 x10(3)/[facility] Monocytes % 10.9 % [facility] Monocyte Abs 0.6 0.3 - 0.9 x10(3)/[facility] LABORATORY Eosinophils % 4.8 % [facility] LABORATORY Eosinophils Abs 0.3 0.0 - 0.4 x10(3)/[facility] LABORATORY Basophils % 1.0 % [facility] LABORATORY Basophils Abs 0.1 0.0 - 0.1 x10(3)/[facility] LABORATORY Immature Gran % 0.30 % [facility]ORATORY Comment: Immature granulocytes(IG's)percentage and absolute count will include metamyelocytes, myelocytes, and promyelocytes. Blood smears from CBCs yielding IG's will be scanned manually for concordance. If this scan disagrees with the automated IG or if promyelocytes are noted, a manual differential will be performed. [place] Gran Abs 0.02 0.00 - 0.04 x10(3)/[facility] LABORATORY Blood specimen (specimen) 05/20/2017 5:13 AM EST 05/20/2017 5:47 AM EST Narrative Resulting Agency Comment Spec In Lab Melody Collins APRN HEMATOLOGY ORDERA BLES [facility] [place] [address] * (ABNORMAL) Hemogram (05/20/2017 5:13 AM EST) WBC 6.0 4.0 - 9.5 x10(3)/[facility] LABORATORY RBC 4.39 4.00 - 5.21 x10(6)/[facility] LABORATORY Hemoglobin 14.1 11.7 - 15.5 gm/dL [facility] Hematocrit 40.3 35.7 - 45.8 % [facility] MCV 91.8 82.6 - 94.4 fL [facility] MCH 32.1(H) 27.1 - 32.0 pg [facility] MCHC 35.0 31.7 - 35.0 gm/dL [facility] Platelets 180 145 - 357 x10(3)/[facility] LABORATORY RDWSD 42.5 37.0 - 46.0 [facility] LABORATORY RDWCV 12.5 11.5 - 14.1 % [facility]ORATORY MPV 11.0 7.6 - 12.9 [facility] LABORATORY nRBC % Auto 0.0 % [facility] LABORATORY nRBC Abs Auto 0.000 0.000 - 0.000 x10(3)/[facility] LABORATORY Blood specimen (specimen) 05/20/2017 5:13 AM EST 05/20/2017 5:47 AM EST Narrative Resulting Agency Comment Spec In Lab Melody Collins APRN HEMATOLOGY ORDERA BLES Performing Organization Address [facility] Co de Phone Number [facility] [place] [address] * (ABNORMAL) APTT (05/20/2017 5:13 AM EST) PTT 82(H) 25 - 35 sec [facility] Comment: The recommended therapeutic range for full dose, unfractionated heparin at [facility] is 80 ? 114 seconds. The use of the anti-Xa (heparin) level rather than the PTT is recommended for monitoring anticoagulation intensity in critically ill patients receiving unfractionated heparin by continuous IV infusion. Blood specimen (specimen) 05/20/2017 5:13 AM EST 05/20/2017 5:47 AM EST Narrative Resulting Agency Comment Spec In Lab Melody Collins APRN HEMATOLOGY ORDERA BLES Performing Organization Address [facility] de Phone Number [facility] [place] [address] * (ABNORMAL) Prothrombin Time (05/20/2017 5:13 AM EST) PT 20.1(H) 11.8 - 14.0 sec [facility] INR 1.7(H) 0.9 - 1.1 [facility] Comment: An INR <2.0 [...] APRN HEMATOLOGY ORDERA BLES Performing Organization Address [facility] Co de Phone Number [facility] [place] [address] * (ABNORMAL) BMP w/fasting Glucose (05/20/2017 5:13 AM EST) Glucose Fasting 91 65 - 99 mg/dL [facility] Comment: ?Fasting* Glucose Interpretive Criteria Normal [...] of Diabetes Mellitus, Position Statement from the [place] [employer]. ??Diabetes Care, Volume 33, Supplement 1, Apr 2009 BUN 22(H) 8 - 18 mg/dL [facility] Creatinine 1.00 0.70 - 1.20 mg/dL [facility] Sodium 141 135 - 145 mmol/L [facility] Potassium 4.1 3.5 - 5.0 mmol/L [facility] Comment: Please note: ??Patients with WBC >100,000 may have falsely elevated Potassium levels. ??For accurate Potassium quantification in these patients send serum separator tube (gold top) for subsequent determinations. ??Contact the Clinical Chemistry Laboratory if there are any questions. Chloride 100 98 - 107 mmol/L [facility] CO2 27 22 - 31 mmol/L [facility] Anion Gap 14 5 - 15 mmol/L [facility] Calcium 9.7 8.5 - 10.5 mg/dL [facility] Estimated GFR 60 >=60 [facility] Comment: The reported eGFR should be multiplied by 1.2 for patients. The MDRD is not an appropriate measure of renal function for patients with body mass extremes or in patients with acute kidney failure. http://USEUM.Wabeebwa/DHnkdep http://USEUM.com/DHMCnkf Blood specimen (specimen) 05/20/2017 5:13 AM EST 05/20/2017 5:47 AM EST Narrative Resulting Agency Comment Spec In Lab Melody Collins SUELLEN CHEMISTRY ORDERAB LES Performing Organization Address [facility] de Phone Number [facility] [place] [address] * (ABNORMAL) APTT (05/19/2017 9:54 PM EST) [facility] PTT >160.0(Cr itical) 25 - 35 [facility] Comment: Called by: harriet, Read back by: Afsaneh Hill, Date/Time:05/19/17 22:32. The recommended therapeutic range for full dose, unfractionated heparin at [facility] is 80 ? 114 seconds. The use of the anti-Xa (heparin) level rather than the PTT is recommended for monitoring anticoagulation intensity in critically ill patients receiving unfractionated heparin by continuous IV infusion. Blood specimen (specimen) 05/19/2017 9:54 PM EST 05/19/2017 10:05 PM EST Narrative Resulting Agency Comment Spec In Lab Melody Collins APRN HEMATOLOGY ORDERA BLES Performing Organization Address [facility] de Phone Number [facility] [place] [address] * EKG 12 Lead (05/19/2017 5:20 PM EST) [facility] Ventricular rate 65 BPM MUSE SYSTEM Atrial Rate 65 BPM MUSE SYSTEM P-R Interval 158 ms MUSE SYSTEM QRS Duration 110 ms MUSE SYSTEM Q-T Interval 432 ms MUSE SYSTEM QTC Calculated (Bezet) 449 ms MUSE SYSTEM Calculated R [place] -24 degrees MUSE SYSTEM Calculated T [place] -29 degrees MUSE SYSTEM INTERPRETATION Normal sinus [...] AM EST Melody Collins APRN ECG ORDERABLES MUSE SYSTEM * (ABNORMAL) APTT (05/19/2017 12:25 PM EST) PTT 49(H) 25 - 35 sec [facility] Comment: The recommended therapeutic range for full dose, unfractionated heparin at [facility] is 80 ? 114 seconds. The use of the anti-Xa (heparin) level rather than the PTT is recommended for monitoring anticoagulation intensity in critically ill patients receiving unfractionated heparin by continuous IV infusion. Blood specimen (specimen) 05/19/2017 12:25 PM EST 05/19/2017 2:10 PM EST Narrative Resulting Agency Comment Spec In Lab Melody Collins APRN HEMATOLOGY ORDERA BLES Performing Organization Address City/[facility] Co de Phone Number [facility] [place] [address] * (ABNORMAL) Prothrombin Time (05/19/2017 12:25 PM EST) PT 22.9(H) 11.8 - 14.0 sec [facility] INR 2.0(H) 0.9 - 1.1 [facility] Comment: An INR <2.0 [...] APRN HEMATOLOGY ORDERA BLES Performing Organization Address [facility]/ZIP Co de Phone Number [facility] [place] [address] * EKG 12 Lead (05/19/2017 6:59 AM EST) Ventricular rate 62 BPM MUSE SYSTEM Atrial Rate 62 BPM MUSE SYSTEM P-R Interval 172 ms MUSE SYSTEM QRS Duration 110 ms MUSE SYSTEM Q-T Interval 462 ms MUSE SYSTEM QTC Calculated (Bezet) 468 ms MUSE SYSTEM Calculated P [place] 16 degrees MUSE SYSTEM Calculated R [place] 17 degrees MUSE SYSTEM Calculated T [place] 5 degrees MUSE SYSTEM INTERPRETATION Normal sinus rhythm Poor R wave progression Cannot rule out Anterior infarct , age undetermined T wave abnormality, consider inferior ischemia T wave abnormality, consider anterior ischemia Abnormal ECG When compared with ECG of 18-MAY-2017 01:33, No significant change was found I personally reviewed the tracing and edited the fellows interpretation Confirmed by fellow MD Rhonda, Chloé Cid ([id number]) on 05/19/2017 10:58:16 AM Confirmed by MD Gudelia, Valdo ([id number]) on 05/19/2017 3:48:21 PM MUSE SYSTEM 05/19/2017 6:59 AM EST 05/19/2017 3:48 PM EST Melody Collins SUELLEN ECG ORDERABLES Performing Organization Address [facility] Co de Phone Number MUSE SYSTEM * Differential, Automated (05/19/2017 5:35 AM EST) Neutrophils % 58.9 % [facility] LABORATORY Neutr Abs (ANC) 3.30 1.70 - 6.10 x10(3)/[facility] LABORATORY Lymphocytes % 25.5 % [facility] LABORAT[facility] Lymphocytes Abs 1.4 0.9 - 3.2 x10(3)/[facility] LABORATORY Monocytes % 9.4 % [facility] LABORATORY Monocyte Abs 0.5 0.3 - 0.9 x10(3)/[facility] LABORATORY Eosinophils % 5.3 % [facility] LABORAT[facility] Eosinophils Abs 0.3 0.0 - 0.4 x10(3)/[facility] LABORATORY Basophils % 0.7 % [facility]ORAT[facility] Basophils Abs 0.0 0.0 - 0.1 x10(3)/[facility] LABORATORY Immature Gran % 0.20 % [facility] Comment: Immature granulocytes(IG's)percentage and absolute count will include metamyelocytes, myelocytes, and promyelocytes. Blood smears from CBCs yielding IG's will be scanned manually for concordance. If this scan disagrees with the automated IG or if promyelocytes are noted, a manual differential will be performed. [place] Gran Abs 0.01 0.00 - 0.04 x10(3)/[facility] LABORATORY Blood specimen (specimen) 05/19/2017 5:35 AM EST 05/19/2017 5:51 AM EST Narrative Resulting Agency Comment Spec In Lab Melody Collins APRN HEMATOLOGY ORDERA BLES Performing Organization Address City/State/[facility] Co de Phone Number [facility] [place] [address] * (ABNORMAL) Hemogram (05/19/2017 5:35 AM EST) WBC 5.6 4.0 - 9.5 x10(3)/[facility] LABORATORY RBC 4.53 4.00 - 5.21 x10(6)/[facility] LABORATORY Hemoglobin 14.8 11.7 - 15.5 gm/dL [facility] Hematocrit 41.8 35.7 - 45.8 % [facility] MCV 92.3 82.6 - 94.4 fL [facility] MCH 32.7(H) 27.1 - 32.0 pg [facility] MCHC 35.4(H) 31.7 - 35.0 gm/dL [facility] Platelets 165 145 - 357 x10(3)/[facility] RDWSD 42.5 37.0 - 46.0 fL [facility] RDWCV 12.5 11.5 - 14.1 % [facility] MPV 10.7 7.6 - 12.9 fL [facility] nRBC % Auto 0.0 % [facility] nRBC Abs Auto 0.000 0.000 - 0.000 x10(3)/mcL [facility] Blood specimen (specimen) 05/19/2017 5:35 AM EST 05/19/2017 5:51 AM EST Narrative Resulting Agency Comment Spec In Lab Melody Morris Dennis KEN HEMATOLOGY ORDERA BLES [facility] [place] [address] * (ABNORMAL) Prothrombin Time (05/19/2017 5:35 AM EST) PT 24.8(H) 11.8 - 14.0 sec [facility] INR 2.2(H) 0.9 - 1.1 [facility] Comment: An INR <2.0 [...] Melody A Dennis KEN HEMATOLOGY ORDERA BLES [facility] [place] [address] * BMP w/fasting Glucose (05/19/2017 5:35 AM EST) Glucose Fasting 84 65 - 99 mg/dL [facility] Comment: ?Fasting* Glucose Interpretive Criteria Normal [...] of Diabetes Mellitus, Position Statement from the [place] [employer]. ??Diabetes Care, Volume 33, Supplement 1, Apr 2009 BUN 18 8 - 18 mg/dL [facility] Creatinine 0.83 0.70 - 1.20 mg/dL [facility] Sodium 143 135 - 145 mmol/L [facility] Potassium 4.5 3.5 - 5.0 mmol/L [facility] Comment: Please note: ??Patients with WBC >100,000 may have falsely elevated Potassium levels. ??For accurate Potassium quantification in these patients send serum separator tube (gold top) for subsequent determinations. ??Contact the Clinical Chemistry Laboratory if there are any questions. Chloride 102 98 - 107 mmol/L [facility] CO2 28 22 - 31 mmol/L [facility] Anion Gap 13 5 - 15 mmol/L [facility] Calcium 9.7 8.5 - 10.5 mg/dL [facility] Estimated GFR >60 >=60 [facility] Comment: The reported eGFR should be multiplied by 1.2 for patients. The MDRD is not an appropriate measure of renal function for patients with body mass extremes or in patients with acute kidney failure. http://USEUM.com/DHnkdep http://USEUM.com/DHMCnkf Blood specimen (specimen) 05/19/2017 5:35 AM EST 05/19/2017 5:51 AM EST Narrative Resulting Agency Comment Spec In Lab Melody Collins APRN CHEMISTRY ORDERAB LES [facility] [place] [address] * Cardiac Enzymes (LEB/CGP) (05/18/2017 12:35 PM EST) [facility] Troponin-T <0.01 0.00 - 0.00 ng/mL [facility] Comment: The 99th percentile for Troponin T is less than 0.01 ng/mL, any detectable cTnT concentration using this assay should be considered elevated. According to the third universal definition of myocardial infarction the following criteria with a clinical presentation consistent with acute myocardial ischemia meets the diagnosis for a myocardial infarction (NC). Detection of a rise and/or fall of cTnT, with at least one value greater than the 99th percentile (> or = 0.01) and with at least one of the following ?? Symptoms of ischemia ?? New or presumed new significant KP-hdbezfh-B wave (ST-T) changes or new left bundle [...] additional sample may be indicated. Reference: [place] Definition of Myocardial Infarction. Journal of the [place] College [employer] 2012;60:1581-98 CK, Total 71 0 - 160 unit/L [facility] Blood specimen (specimen) 05/18/2017 12:35 PM EST 05/18/2017 12:37 PM EST Narrative Resulting Agency Comment Spec In Lab Andrea Stewart MD CHEMISTRY ORDERABLES Performing Organization Address City/[facility]/ZIP Co de Phone Number [facility] [place] [address] * ECHO COMPLETE (05/18/2017 10:55 AM EST) [facility] EF 55 HEARTLAB SYSTEM Anatomical Region Laterality Modality Other 05/18/2017 Narrative 05/18/2017 11:17 AM EST Procedure: ?Transthoracic Echocardiogram Patient: ?JULIA Montiel ? (Age): 1970(47y) Med Rec#: ? [id number] ?Sex: ?F ? Site Loc: ? DH ?Ht / Wt: ??162(cm)/71(kg) Pt. Loc: ?Adult Floor ? BSA: ?1.76 Study Date: ?? 05/18/2017 ?Pt. Type: Inpatient Tape: ? Referring: Andrea Stewart Referring: CLAUDIA Reading: Marquis Reyes ([id number]) Wireless Team Member: Santy Mena Diagnosis: *ICD-10-PCS Other chest pain [...] E-wave Vmax ?0.7 ?m/sec ? MV deceleration [id number] ?msec ? MV A-wave Vmax ?0.8 ?m/sec [...] ? Mid-Inferior ?Normal ? Mid-Inferoseptal ?Normal ? [place]-Septal ? Normal ? [place]-Anterior ? Normal ? [place]-Lateral ?Normal ? [place]-Inferior ? Normal ? [place]-Tip ?Normal ? This report has been electronically signed by: Marquis Reyes M.D. ? 05/18/2017 11:16:56 Images reviewed and interpretation verified [facility] Cardiac Ultrasound Laboratory Procedure Note Marquis Reyes MD - 05/18/2017 Procedure: Transthoracic Echocardiogram Patient: JULIA Montiel ANDREA(Age): 1970(47y) Med Rec#: [id number] Sex: F Site Loc: [facility] Ht / Wt: 162(cm)/71(kg) Pt. Loc: Adult Floor BSA: 1.76 Study Date: 05/18/2017 Pt. Type: Inpatient Tape: Referring: Ángel Stewartherminia Referring: CARLOSBere Reading: Marquis Reyes Arturo ([id number]) Wireless Team Member: Santy Mena Diagnosis: *ICD-10-PCS Other chest pain [...] MV E-wave Vmax 0.7 m/sec MV deceleration [id number] msec MV A-wave Vmax 0.8 m/sec MV [...] Normal Mid-Posterolateral Normal Mid-Inferior Normal Mid-Inferoseptal Normal [place]-Septal Normal [place]-Anterior Normal [place]-Lateral Normal [place]-Inferior Normal [place]-Tip Normal This report has been electronically signed by: Marquis Reyes M.D. 05/18/2017 11:16:56 Images reviewed and interpretation verified [facility] Cardiac Ultrasound Laboratory Andrea Stewart MD ECHO [...] 6:59 AM EST) Neutrophils % 58.2 % [facility] Neutr Abs (ANC) 2.72 1.70 - 6.10 x10(3)/[facility] LABORATORY Lymphocytes % 26.3 % [facility] Lymphocytes Abs 1.2 0.9 - 3.2 x10(3)/[facility] LABORATORY Monocytes % 10.0 % [facility] Monocyte Abs 0.5 0.3 - 0.9 x10(3)/[facility] LABORATORY Eosinophils % 4.7 % [facility] Eosinophils Abs 0.2 0.0 - 0.4 x10(3)/[facility] LABORATORY Basophils % 0.6 % [facility] Basophils Abs 0.0 0.0 - 0.1 x10(3)/[facility] LABORATORY Immature Gran % 0.20 % [facility] Comment: Immature granulocytes(IG's)percentage and absolute count will include metamyelocytes, myelocytes, and promyelocytes. Blood smears from CBCs yielding IG's will be scanned manually for concordance. If this scan disagrees with the automated IG or if promyelocytes are noted, a manual differential will be performed. [place] Gran Abs 0.01 0.00 - 0.04 x10(3)/[facility] LABORATORY Blood specimen (specimen) 05/18/2017 6:59 AM EST 05/18/2017 7:08 AM EST Narrative Resulting Agency Comment Spec In Lab Andrea Stewart MD HEMATOLOGY ORDERABLE S [facility] [place] [address] * (ABNORMAL) Hemogram (05/18/2017 6:59 AM EST) WBC 4.7 4.0 - 9.5 x10(3)/[facility] LABORATORY RBC 3.85(L) 4.00 - 5.21 x10(6)/[facility] LABORATORY Hemoglobin 12.5 11.7 - 15.5 gm/dL [facility] Hematocrit 35.6(L) 35.7 - 45.8 % [facility] MCV 92.5 82.6 - 94.4 fL [facility] MCH 32.5(H) 27.1 - 32.0 pg [facility] MCHC 35.1(H) 31.7 - 35.0 gm/dL [facility] Platelets 166 145 - 357 x10(3)/[facility] LABORATORY RDWSD 43.1 37.0 - 46.0 [facility] LABORATORY RDWCV 12.7 11.5 - 14.1 % [facility] MPV 10.4 7.6 - 12.9 [facility] LABORATORY nRBC % Auto 0.0 % [facility] nRBC Abs Auto 0.000 0.000 - 0.000 x10(3)/[facility] LABORATORY Blood specimen (specimen) 05/18/2017 6:59 AM EST 05/18/2017 7:08 AM EST Narrative Resulting Agency Comment Spec In Lab Andrea Stewart MD HEMATOLOGY ORDERABLE S [facility] [place] [address] * BMP w/fasting Glucose (05/18/2017 6:59 AM EST) Glucose Fasting 94 65 - 99 mg/dL [facility] Comment: ?Fasting* Glucose Interpretive Criteria Normal [...] of Diabetes Mellitus, Position Statement from the [place] [employer]. ??Diabetes Care, Volume 33, Supplement 1, Apr 2009 BUN 16 8 - 18 mg/dL [facility] Creatinine 0.93 0.70 - 1.20 mg/dL [facility] Sodium 142 135 - 145 mmol/L [facility] Potassium 4.1 3.5 - 5.0 mmol/L [facility] Comment: Please note: ??Patients with WBC >100,000 may have falsely elevated Potassium levels. ??For accurate Potassium quantification in these patients send serum separator tube (gold top) for subsequent determinations. ??Contact the Clinical Chemistry Laboratory if there are any questions. Chloride 104 98 - 107 mmol/L [facility] CO2 28 22 - 31 mmol/L [facility] Anion Gap 10 5 - 15 mmol/L [facility] Calcium 8.9 8.5 - 10.5 mg/dL [facility] Estimated GFR >60 >=60 [facility] Comment: The reported eGFR should be multiplied by 1.2 for patients. The MDRD is not an appropriate measure of renal function for patients with body mass extremes or in patients with acute kidney failure. http://USEUM.Wabeebwa/DHnkdep http://ePatientFinder/DHMCnkf Blood specimen (specimen) 05/18/2017 6:59 AM EST 05/18/2017 7:08 AM EST Narrative Resulting Agency Comment Spec In Lab Andrea Stewart MD CHEMISTRY ORDERABLES Performing Organization Address [facility]/ZIP Co de Phone Number [facility] [place] [address] * (ABNORMAL) APTT (05/18/2017 6:59 AM EST) PTT 52(H) 25 - 35 sec [facility] Comment: The recommended therapeutic range for full dose, unfractionated heparin at [facility] is 80 ? 114 seconds. The use of the anti-Xa (heparin) level rather than the PTT is recommended for monitoring anticoagulation intensity in critically ill patients receiving unfractionated heparin by continuous IV infusion. Blood specimen (specimen) 05/18/2017 6:59 AM EST 05/18/2017 7:08 AM EST Narrative Resulting Agency Comment Spec In Lab Andrea Stewart MD HEMATOLOGY ORDERABLE S Performing Organization Address [facility] Co de Phone Number [facility] [place] [address] * (ABNORMAL) Prothrombin Time (05/18/2017 6:59 AM EST) PT 30.7(H) 11.8 - 14.0 sec [facility] INR 2.9(H) 0.9 - 1.1 [facility] Comment: An INR <2.0 [...] MD HEMATOLOGY ORDERABLE S Performing Organization Address City/[facility]/ZIP Co de Phone Number [facility] [place] [address] * Cardiac Enzymes (LEB/CGP) (05/18/2017 6:59 AM EST) [facility] Troponin-T <0.01 0.00 - 0.00 ng/mL [facility] Comment: The 99th percentile for Troponin T is less than 0.01 ng/mL, any detectable cTnT concentration using this assay should be considered elevated. According to the third universal definition of myocardial infarction the following criteria with a clinical presentation consistent with acute myocardial ischemia meets the diagnosis for a myocardial infarction (NC). Detection of a rise and/or fall of cTnT, with at least one value greater than the 99th percentile (> or = 0.01) and with at least one of the following ?? Symptoms of ischemia ?? New or presumed new significant KE-kissgjq-Y wave (ST-T) changes or new left bundle [...] additional sample may be indicated. Reference: [place] Definition of Myocardial Infarction. Journal of the [place] [employer] 2012;60:1581-98 CK, Total 72 0 - 160 unit/L [facility] Blood specimen (specimen) 05/18/2017 6:59 AM EST 05/18/2017 7:11 AM EST Narrative Resulting Agency Comment Spec In Lab Andrea Stewart MD CHEMISTRY ORDERABLES Performing Organization Address [facility] [facility]/ZIP Co de Phone Number [facility] [place] [address] * EKG 12 Lead (05/18/2017 1:33 AM EST) Pathologist [facility] Ventricular rate 60 BPM MUSE SYSTEM Atrial Rate 60 BPM MUSE SYSTEM P-R Interval 164 ms MUSE SYSTEM QRS Duration 106 ms MUSE SYSTEM Q-T Interval 452 ms MUSE SYSTEM QTC Calculated (Bezet) 452 ms MUSE SYSTEM Calculated P [place] 4 degrees MUSE SYSTEM Calculated R [place] 8 degrees MUSE SYSTEM Calculated T [place] -8 degrees MUSE SYSTEM INTERPRETATION Normal sinus rhythm T wave abnormality, consider anterior ischemia Abnormal ECG When compared with ECG of 18-MAY-2017 00:23, No significant change was found Confirmed by MD WONG BRUCE ([id number]) on 05/18/2017 1:47:48 PM MUSE SYSTEM 05/18/2017 1:33 AM EST 05/18/2017 1:47 PM EST Andrea Stewart MD ECG ORDERABLES MUSE SYSTEM * BMP w/fasting Glucose (05/18/2017 12:36 AM EST) Glucose Fasting 88 65 - 99 mg/dL [facility] Comment: ?Fasting* Glucose Interpretive Criteria Normal [...] of Diabetes Mellitus, Position Statement from the [place] [employer]. ??Diabetes Care, Volume 33, Supplement 1, Apr 2009 BUN 12 8 - 18 mg/dL [facility] Creatinine 0.80 0.70 - 1.20 mg/dL [facility] Sodium 144 135 - 145 mmol/L [facility] Potassium 3.9 3.5 - 5.0 mmol/L [facility] Comment: Please note: ??Patients with WBC >100,000 may have falsely elevated Potassium levels. ??For accurate Potassium quantification in these patients send serum separator tube (gold top) for subsequent determinations. ??Contact the Clinical Chemistry Laboratory if there are any questions. Chloride 105 98 - 107 mmol/L [facility] CO2 27 22 - 31 mmol/L [facility] Anion Gap 12 5 - 15 mmol/L [facility] Calcium 9.2 8.5 - 10.5 mg/dL [facility] Estimated GFR >60 >=60 [facility] Comment: The reported eGFR should be multiplied by 1.2 for patients. The MDRD is not an appropriate measure of renal function for patients with body mass extremes or in patients with acute kidney failure. http://ePatientFinder/DHnkdep http://ePatientFinder/DHMCnkf Blood specimen (specimen) 05/18/2017 12:36 AM EST 05/18/2017 1:00 AM EST Narrative Resulting Agency Comment Spec In Lab Andrea Stewart MD CHEMISTRY ORDERABLES Performing Organization Address City/State/[facility] Co de Phone Number [facility] [place] [address] * Differential, Automated (05/18/2017 12:36 AM EST) Neutrophils % 51.9 % [facility] Neutr Abs (ANC) 2.35 1.70 - 6.10 x10(3)/[facility] Lymphocytes % 33.3 % [facility] Lymphocytes Abs 1.5 0.9 - 3.2 x10(3)/[facility] Monocytes % 9.7 % [facility] Monocyte Abs 0.4 0.3 - 0.9 x10(3)/[facility] Eosinophils % 4.2 % [facility] Eosinophils Abs 0.2 0.0 - 0.4 x10(3)/[facility] Basophils % 0.7 % [facility] Basophils Abs 0.0 0.0 - 0.1 x10(3)/[facility] Immature Gran % 0.20 % [facility] Comment: Immature granulocytes(IG's)percentage and absolute count will include metamyelocytes, myelocytes, and promyelocytes. Blood smears from CBCs yielding IG's will be scanned manually for concordance. If this scan disagrees with the automated IG or if promyelocytes are noted, a manual differential will be performed. [place] Gran Abs 0.01 0.00 - 0.04 x10(3)/[facility] Blood specimen (specimen) 05/18/2017 12:36 AM EST 05/18/2017 1:00 AM EST Narrative Resulting Agency Comment Spec In Lab Andrea Stewart MD HEMATOLOGY ORDERABLE S [facility] [place] [address] * (ABNORMAL) Hemogram (05/18/2017 12:36 AM EST) WBC 4.5 4.0 - 9.5 x10(3)/[facility] RBC 3.96(L) 4.00 - 5.21 x10(6)/[facility] Hemoglobin 12.8 11.7 - 15.5 gm/dL [facility] Hematocrit 36.5 35.7 - 45.8 % [facility] MCV 92.2 82.6 - 94.4 fL [facility] MCH 32.3(H) 27.1 - 32.0 pg [facility] MCHC 35.1(H) 31.7 - 35.0 gm/dL [facility] Platelets 175 145 - 357 x10(3)/[facility] RDWSD 42.6 37.0 - 46.0 fL [facility] RDWCV 12.6 11.5 - 14.1 % [facility] MPV 10.6 7.6 - 12.9 fL [facility] nRBC % Auto 0.0 % [facility] nRBC Abs Auto 0.000 0.000 - 0.000 x10(3)/mcL [facility] Blood specimen (specimen) 05/18/2017 12:36 AM EST 05/18/2017 1:00 AM EST Narrative Resulting Agency Comment Spec In Lab Andrea Stewart MD HEMATOLOGY ORDERABLE S Performing Organization Address City/[facility]/ZIP Co de Phone Number [facility] [place] [address] * Triglyceride (05/18/2017 12:36 AM EST) Triglycerides 72 mg/dL [facility] Comment: Average Risk/Lower Risk: <150 mg/dL Borderline High Risk: 150-199 mg/dL High Risk: 200-499 mg/dL Very High Risk: >du=867 mg/dL Blood specimen (specimen) 05/18/2017 12:36 AM EST 05/18/2017 1:00 AM EST Narrative Resulting Agency Comment Spec In Lab Andrea Stewart MD CHEMISTRY ORDERABLES Performing Organization Address City/[facility]/ZIP Co de Phone Number [facility] [place] [address] * HDL/Cholesterol Profile (05/18/2017 12:36 AM EST) Chol, Total 197 mg/dL [facility] Comment: Lower Risk: <200 mg/dL Average Risk: 200-239 mg/dL Higher Risk: >vy=136 mg/dL HDL 45 mg/dL [facility] Comment: Males: ?? Higher Risk: <40 mg/dL Females: ?? HIgher Risk: <50 mg/dL Chol/HDL Ratio 4.4 ratio [facility] Chol/HDL Interpretation See Note [facility] Comment: Lipid management should be guided by a patient? s ASCVD risk, goals and preferences. ACC/AHA Guidelines recommend high intensity statin if clinical ASCVD or LDL greater than or equal to 190 mg/dL. http://tinyurl.com/HJJ-EQC-Atbxcczrm Measure LDL if Total Cholesterol minus HDL Cholesterol is greater than 220 mg/dL. Adults aged 40-75 with LDL 70-189 mg/dL should have their 10 year ASCVD risk estimated with the ACC/AHA ASCVD risk estimator lumber http://tools.acc.org/DUXIQ-Wphv-Ktcgiqsdm/ Statin should be discussed if risk greater [...] Stewart MD CHEMISTRY ORDERABLES Performing Organization Address [facility] Co de Phone Number [facility] [place] [address] * LDL Cholesterol, Direct (05/18/2017 12:36 AM EST) LDL Chol Direct 145 mg/dL [facility] Comment: Lowest Risk: <100 mg/dL Lower Risk: 100-129 mg/dL Borderline High Risk: 130-159 mg/dL High Risk: 160-189 mg/dL Very High Risk: >in=775 mg/dL Blood specimen (specimen) 05/18/2017 12:36 AM EST 05/18/2017 1:00 AM EST Narrative Resulting Agency Comment Spec In Lab Andrea Stewart MD CHEMISTRY ORDERABLES Performing Organization Address City/[facility] Co de Phone Number [facility] [place] [address] * Hemoglobin A1c (05/18/2017 12:36 AM EST) Hemoglobin A1C 5.0 4.3 - 5.6 % [facility] Comment: Reference Range: 4.3 - 5.6% [...] 1, S67-74 Est Avg Gluc 97 mg/dL [facility] Comment: eAG equivalents for HbA1c [...] into estimated average glucose values. ??Diabetes Care 2008:31(8):4777-6932. Blood specimen (specimen) 05/18/2017 12:36 AM EST 05/18/2017 1:00 AM EST Narrative Resulting Agency Comment Spec In Lab Andrea Stewart MD CHEMISTRY ORDERABLES [facility] [place] [address] * Cardiac Enzymes (LEB/CGP) (05/18/2017 12:36 AM EST) Troponin-T <0.01 0.00 - 0.00 ng/mL [facility] Comment: The 99th percentile for Troponin T is less than 0.01 ng/mL, any detectable cTnT concentration using this assay should be considered elevated. According to the third universal definition of myocardial infarction the following criteria with a clinical presentation consistent with acute myocardial ischemia meets the diagnosis for a myocardial infarction (NC). Detection of a rise and/or fall of cTnT, with at least one value greater than the 99th percentile (> or = 0.01) and with at least one of the following ?? Symptoms of ischemia ?? New or presumed new significant TI-[id number] wave (ST-T) changes or new left bundle [...] additional sample may be indicated. Reference: [place] Definition of Myocardial Infarction. Journal of the [place] [employer] 2012;60:1581-98 CK, Total 76 0 - 160 unit/L [facility] Blood specimen (specimen) 05/18/2017 12:36 AM EST 05/18/2017 1:00 AM EST Narrative Resulting Agency Comment Spec In Lab Andrea Stewart MD CHEMISTRY ORDERABLES Performing Organization Address City/State/[facility] Co de Phone Number [facility] [place] [address] * Lipid Panel (05/18/2017 12:36 AM EST) Chol, Total 197 mg/dL [facility] Comment: Lower Risk: <200 mg/dL Average Risk: 200-239 mg/dL Higher Risk: >qx=710 mg/dL Triglycerides 72 mg/dL [facility] Comment: Average Risk/Lower Risk: <150 mg/dL Borderline High Risk: 150-199 mg/dL High Risk: 200-499 mg/dL Very High Risk: >hf=541 mg/dL HDL 45 mg/dL [facility] Comment: Males: ?? Higher Risk: <40 mg/dL Females: ?? HIgher Risk: <50 mg/dL LDL Cholesterol 138 mg/dL [facility] Comment: Lowest Risk: <100 mg/dL Lower Risk: 100-129 mg/dL Borderline High Risk: 130-159 mg/dL High Risk: 160-189 mg/dL Very High Risk: >zg=124 mg/dL Chol/HDL Ratio 4.4 ratio [facility] Lipid Interpretation See Note [facility] Comment: Lipid management should be guided by a patient? s ASCVD risk, goals and preferences. ACC/AHA Guidelines recommend high intensity statin if clinical ASCVD or LDL greater than or equal to 190 mg/dL. http://USEUM.com/RFN-XCF-Ozncbdcry Adults aged 40-75 with LDL 70-189 mg/dL should have their 10 year ASCVD risk estimated with the ACC/AHA ASCVD risk estimator lumber http://tools.acc.org/CBZRU-Doex-Ywqbzbwki/ Statin should be discussed if risk greater [...] In Lab Andrea Stewart MD CHEMISTRY ORDERABLES [facility] [place] [address] * (ABNORMAL) APTT (05/18/2017 12:36 AM EST) PTT 55(H) 25 - 35 sec [facility] Comment: The recommended therapeutic range for full dose, unfractionated heparin at [facility] is 80 ? 114 seconds. The use of the anti-Xa (heparin) level rather than the PTT is recommended for monitoring anticoagulation intensity in critically ill patients receiving unfractionated heparin by continuous IV infusion. Blood specimen (specimen) 05/18/2017 12:36 AM EST 05/18/2017 1:00 AM EST Narrative Resulting Agency Comment Spec In Lab Andrea Stewart MD HEMATOLOGY ORDERABLE S Performing Organization Address [facility] de Phone Number [facility] [place] [address] * (ABNORMAL) Prothrombin Time (05/18/2017 12:36 AM EST) PT 29.9(H) 11.8 - 14.0 sec [facility] INR 2.8(H) 0.9 - 1.1 [facility] Comment: An INR <2.0 [...] MD HEMATOLOGY ORDERABLE S Performing Organization Address City/[facility] Co de Phone Number [facility] [place] [address] * Hepatic Function Panel (05/18/2017 12:36 AM EST) Total Protein 6.8 6.1 - 8.0 gm/dL [facility] Albumin 3.8 3.2 - 5.2 gm/dL [facility] AST 15 0 - 30 unit/L [facility] ALT 9 0 - 30 unit/L [facility] Alk Phos 77 40 - 104 unit/L [facility] Total Bilirubin 0.4 0.2 - 1.3 mg/dL [facility] Bili, Direct 0.1 0.0 - 0.3 mg/dL [facility] Blood specimen (specimen) 05/18/2017 12:36 AM EST 05/18/2017 1:00 AM EST Narrative Resulting Agency Comment Spec In Lab Andrea Stewart MD CHEMISTRY ORDERABLES [facility] [place] [address] * (ABNORMAL) pro-Brain Natriuretic Peptide (05/18/2017 12:36 AM EST) ProBNP 455(H) <=125 pg/mL [facility] Blood specimen (specimen) 05/18/2017 12:36 AM EST 05/18/2017 1:00 AM EST Narrative Resulting Agency Comment Spec In Lab Andrea Stewart MD CHEMISTRY ORDERABLES Performing Organization Address City/[facility]/ZIP Co de Phone Number [facility] [place] [address] * TSH (05/18/2017 12:36 AM EST) TSH 3.47 0.27 - 4.20 mlU/ML [facility] Blood specimen (specimen) 05/18/2017 12:36 AM EST 05/18/2017 1:00 AM EST Narrative Resulting Agency Comment Spec In Lab Andrea Stewart MD CHEMISTRY ORDERABLES Performing Organization Address City/[facility]/ZIP Co de Phone Number [facility] [place] [address] * Phosphorus (05/18/2017 12:36 AM EST) Phosphorus 3.7 2.5 - 4.5 mg/dL [facility] Blood specimen (specimen) 05/18/2017 12:36 AM EST 05/18/2017 1:00 AM EST Narrative Resulting Agency Comment Spec In Lab Andrea Stewart MD CHEMISTRY ORDERABLES Performing Organization Address City/[facility]/ZIP Co de Phone Number [facility] [place] [address] * Magnesium (05/18/2017 12:36 AM EST) Magnesium 0.73 0.69 - 1.07 mmol/L [facility] Blood specimen (specimen) 05/18/2017 12:36 AM EST 05/18/2017 1:00 AM EST Narrative Resulting Agency Comment Spec In Lab Andrea Stewart MD CHEMISTRY ORDERABLES Performing Organization Address [facility] de Phone Number [facility] [place] [address] * EKG 12 Lead (05/18/2017 12:23 AM EST) Ventricular rate 57 BPM MUSE SYSTEM Atrial Rate 57 BPM MUSE SYSTEM P-R Interval 168 ms MUSE SYSTEM QRS Duration 108 ms MUSE SYSTEM Q-T Interval 468 ms MUSE SYSTEM QTC Calculated (Bezet) 455 ms MUSE SYSTEM Calculated P [place] 27 degrees MUSE SYSTEM Calculated R [place] 6 degrees MUSE SYSTEM Calculated T [place] -14 degrees MUSE SYSTEM INTERPRETATION Sinus bradycardia anterior T wave inversion, consider ischemia Abnormal ECG When compared with ECG of 26-NOV-2005 11:10, T wave inversion now evident in Anterolateral leads Confirmed by MD YESSI, BIENVENIDO ([id number]) on 05/18/2017 1:47:16 PM MUSE SYSTEM 05/18/2017 12:2 3 AM EST 05/18/2017 1:47 PM EST Andrea Stewart MD ECG ORDERABLES Performing Organization Address City/[facility]/ZIP Co de Phone Number MUSE SYSTEM documented in this encounter Visit Diagnoses Not on filedocumented in this encounter Administered Medications Inactive Administered Medications - up to 3 most recent administrations Medication Order MAR Action Action Date Dose Rate Site acetaminophen (TYLENOL) tablet 1,000 mg 1,000 mg, Oral, EVERY 6 HOURS SCHEDULED, First dose on Thu05/26/17 at 1800, Until Discontinued, For pain when taking by mouth , Routine Given 05/30/2017 11:44 AM EST 1,000 mg Given 05/30/2017 5:53 AM EST 1,000 mg Given 05/30/2017 12:11 AM EST 1,000 mg aspirin chewable tablet 81 mg 81 mg, Oral, DAILY, First dose on 05/30/17 at 0900, Until Discontinued, Routine Given 05/30/2017 8:11 AM EST 81 mg atorvastatin (LIPITOR) tablet 80 mg 80 mg, Oral, EVERY EVENING, First dose on 05/18/17 at 1700, Until Discontinued, Routine Given 05/29/2017 4:35 PM EST 80 mg Given 05/28/2017 4:16 PM EST 80 mg Given 05/27/2017 5:13 PM EST 80 mg bisacodyl (DULCOLAX) suppository 10 mg 10 mg, Rectal, DAILY PRN, Starting on Yairtza 05/28/17 at 0000, Until 05/30/17 at 1644, Constipation, Starting post-op day 3., Routine Given 05/29/2017 8:52 AM EST 10 mg calcium chloride 100 mg/mL (10 %) injection ONCE PRN, Starting on Thu05/25/17 at 1309, Until Thu05/25/17 at 1441, Intra-Operative (Intra-Procedure), Routine Given 05/25/2017 1:09 PM EST 1 g Central Line cardioplegic solution (PLEGISOL) induction solution CONTINUOUS PRN, Starting on Thu05/25/17 at 1025, Until Thu05/25/17 at 1441, Intra-Operative (Intra-Procedure) New Bag 05/25/2017 10:25 AM EST 316 mLs Central Line cardioplegic solution (PLEGISOL) maintenance solution CONTINUOUS PRN, Starting on Thu05/25/17 at 1250, Until Thu05/25/17 at 1441, Intra-Operative (Intra-Procedure) New Bag 05/25/2017 12:50 PM EST 308 mLs Central Line cardioplegic solution (PLEGISOL) reperfusion solution CONTINUOUS PRN, Starting on Thu05/25/17 at 1311, Until Thu05/25/17 at 1441, Intra-Operative (Intra-Procedure) New Bag 05/25/2017 1:11 PM EST 153 mLs Central Line cefUROXime (ZINACEF) injection 1.5 g Administer over 60 Minutes, ONCE PRN, Starting on Thu05/25/17 at 1154, Until Thu05/25/17 at 1441, Intra-Operative (Intra-Procedure), Routine Given 05/25/2017 11:54 AM EST 1 g Central Line dextrose 50% IV syringe 25-50 mL 25-50 [...] Given 05/28/2017 8:28 AM EST 100 mg electrolyte (pH 7.4) (NORMOSOL-R; PLASMALYTE-A) injection CONTINUOUS PRN, Starting on Thu05/25/17 at 1154, Until Thu05/25/17 at 1441, Intra-Operative (Intra-Procedure) New Bag 05/25/2017 11:54 AM EST 1,300 mLs Central Line glucagon (human recombinant) injection SolR 1 mg [...] the active insulin., Routine heparin (porcine) injection ONCE PRN, Starting on Thu05/25/17 at 1154, Until Thu05/25/17 at 1441, Intra-Operative (Intra-Procedure), Routine Given 05/25/2017 12:27 PM EST 5,000 Units Central Line Given 05/25/2017 11:54 AM EST 5,000 Units Central Line HYDROmorphone (DILAUDID) tablet 2-4 mg 2-4 mg, Oral, EVERY 4 HOURS PRN, Starting on Thu05/26/17 at 0856, Until Thu05/30/17 at 1644, Pain, pain scale 1-5->give 2mg; [...] unless specifically told to do so., Routine levothyroxine (SYNTHROID) tablet 25 mcg 25 mcg, Oral, DAILY, First dose (after last modification) on Thu05/26/17 at 0600, Until Discontinued Given 05/30/2017 5:54 AM EST 25 mcg Given 05/29/2017 5:37 AM EST 25 mcg Given 05/28/2017 6:10 AM EST 25 mcg lidocaine (PF) (XYLOCAINE) 100 mg/5 mL (2 %) injection ONCE PRN, Starting on Thu05/25/17 at 1309, Until Thu05/25/17 at 1441, Intra-Operative (Intra-Procedure), Routine Given 05/25/2017 1:09 PM EST 200 mg Central Line LORazepam (ATIVAN) tablet 0.5 mg 0.5 mg, Oral, EVERY 8 HOURS PRN, Starting on Thu05/27/17 at 0656, Until 05/30/17 at 1644, Anxiety, Routine Given 05/27/2017 7:05 AM EST 0.5 mg magnesium hydroxide (MILK OF MAGNESIA) oral suspension 10 mL 10 mL, Oral, DAILY, First dose on Thu05/27/17 at 0900, Until Discontinued, Post-op day 2. Do not use with renal insufficiency., Routine Given 05/29/2017 8:46 AM EST 10 mLs Given 05/28/2017 9:00 [...] 8:30 AM EST 10 mLs magnesium sulfate 4 mEq/mL (50 %) injection ONCE PRN, Starting on Thu05/25/17 at 1309, Until Thu05/25/17 at 1441, Intra-Operative (Intra-Procedure), Routine Given 05/25/2017 1:09 PM EST 2 g Central Line mannitol (50 grams and over) 100 g/500 mL (20%) infusion CONTINUOUS PRN, Starting on Thu05/25/17 at 1322, Until Thu05/25/17 at 1441, Intra-Operative (Intra-Procedure) New Bag 05/25/2017 1:22 PM EST 40 g Central Line meTOPROLOL (LOPRESSOR) tablet 37.5 mg 37.5 mg, Oral, EVERY 8 HOURS SCHEDULED, First dose (after last modification) on Thu05/29/17 at 2200, Until Discontinued, Please hold for sbp <90, hr <60, Routine Given 05/30/2017 2:31 PM EST 37.5 mg Given 05/30/2017 5:53 AM EST 37.5 mg Given 05/29/2017 9:55 PM EST 37.5 mg ondansetron (ZOFRAN) injection 4 mg 4 mg, Intravenous, EVERY 8 HOURS PRN, Starting on Thu05/25/17 at 1502, Until Thu05/30/17 at 1644, Nausea Given 05/29/2017 2:39 PM EST 4 mg pantoprazole (PROTONIX) injection 40 mg 40 [...] Given 05/28/2017 8:29 AM EST 40 mg senna-docusate (PERICOLACE) 8.6-50 mg per tablet 2 tablet 2 tablet, Oral, DAILY, First dose on Thu05/26/17 at 2100, Until Discontinued, Post-op day 1, Routine Given 05/28/2017 9:07 PM EST 2 tablets Given 05/27/2017 9:19 PM EST 2 tablets Given 05/26/2017 8:11 PM EST 2 tablets sodium bicarbonate 8.4 % (1 mEq/mL) injection ONCE PRN, Starting on Thu05/25/17 at 1252, Until Thu05/25/17 at 1441, Intra-Operative (Intra-Procedure), Routine Given 05/25/2017 12:52 PM EST 25 mEq sodium chloride 0.9 % flush 5 mL 5 mL, Intravenous, 2 TIMES DAILY, First dose on Thu05/27/17 at 1345, Until Discontinued, Routine Given 05/30/2017 9:00 AM EST 5 mLs Given 05/29/2017 8:54 PM EST 5 mLs Given 05/29/2017 9:00 AM EST 5 mLs vancomycin (VANCOCIN) injection ONCE PRN, Starting on Thu05/25/17 at 1121, Until Thu05/25/17 at 1441, Intra-Operative (Intra-Procedure), Routine Given 05/25/2017 11:21 AM EST 1 g 19- Surgical Site warfarin (COUMADIN) daily order reminder Oral, EVERY 24 HOURS, First dose on Thu05/27/17 at 1400, Until Discontinued, If the daily warfarin order has not been placed, contact the Provider to confirm that the order will be written, the dose is held or discontinued. warfarin (COUMADIN) tablet 2.5 mg 2.5 mg, Oral, ONCE, 1 dose, On Thu05/30/17 at 1700, Routine documented in this encounter Active and [...] Bahena RN) 0011 (Given - Provider: Marquis Sanchez, PAIGE)0553 (Given - Provider: Marquis Sanchez RN)1144 (Given [...] Sabas Walker RN)1616 (Given - Provider: Harvey J Josef, RN) 0841 (Given - Provider: Sabas Walker RN) hydroxychloroquine (PLAQUENIL) tablet 200 mg 200 mg, Oral, 2 TIMES DAILY, First dose (after last modification) on Thu05/26/17 at 0900, Until Discontinued, Routine 1010 (Given - Provider: Sabas Walker RN)2107 (Given - Provider: Harvey Bahena RN) 0957 (Given - Provider: Sabas Walker RN)2053 (Given - Provider: Harvey Bahena RN) 0811 (Given - Provider: Sabas Walker RN) insulin lispro (humaLOG) VIAL injection 1-4 Units(Linked [...] Clark RN) 0554 (Given - Provider: Marquis Sanchez RN) magnesium hydroxide (MILK OF MAGNESIA) oral suspension [...] Sanchez RN) 0553 (Given - Provider: Marquis Sanchez RN)1431 (Given - Provider: Sabas Walker, PAIGE) meTOPROLOL tartrate (LOPRESSOR) tablet 25 mg (CANCELED) 25 mg, Oral, EVERY 12 HOURS SCHEDULED (2 times per day), First dose (after last modification) on Thu05/26/17 at 2100, Until Discontinued, Routine 0829 (Given - Provider: Sabas Walker, PAIGE) meTOPROLOL tartrate (LOPRESSOR) tablet 25 mg (COMPLETED) 25 mg, Oral, ONCE, 1 dose, On Thu05/28/17 at 1115, Please hold for sbp <90, hr <60, Routine 1136 (Given - Provider: Sabas Walker, PAIGE) meTOPROLOL tartrate (LOPRESSOR) tablet 50 mg (CANCELED) [...] RN) 0845 (See Alternative - Provider: Sabas Walker, RN) 0810 (See Alternative - Provider: Sabas Walker, RN) pantoprazole (PROTONIX) tablet 40 mg(Linked Group 3) 40 mg, Oral, DAILY, First dose on Thu05/25/17 at 1600, Until Discontinued, DO NOT CRUSH OR OPEN If unable to take PO, may give IV 0829 (Given - Provider: Sabas Walker RN) 0845 (Given - Provider: Sabas Walker RN) 0810 (Given - Provider: Sabas Walker, RN) potassium chloride (K-DUR/KLOR-CON) extended release tablet 10 mEq (COMPLETED) 10 mEq, Oral, ONCE, 1 dose, On Thu05/29/17 at 0915, Routine 0957 (Given - Provider: Sabas Walker, PAIGE) potassium chloride (K-DUR/KLOR-CON) extended release tablet 20 mEq (COMPLETED) 20 mEq, Oral, ONCE, 1 dose, On Thu05/30/17 at 0700, 20 mEq tablet may be dissolved in water for administration, Routine 0811 (Given - Provider: Sabas Walker, PAIGE) senna-docusate (PERICOLACE) 8.6-50 mg per tablet 2 tablet 2 tablet, Oral, DAILY, First dose on Thu05/26/17 at 2100, Until Discontinued, Post-op day 1, Routine 2107 (Given - Provider: Harvey Bahena, PAIGE) 2100 (Not Given - Provider: Harvey Bahena, RN - Reason: Patient/family refused) sodium chloride 0.9 % flush 5 mL 5 mL, Intravenous, 2 TIMES DAILY, First dose on Thu05/27/17 at 1345, Until Discontinued, Routine 0830 (Given - Provider: Sabas Wlaker RN)2110 (Given - Provider: Harvey Bahena RN) 09 (Given - Provider: Sabas Walker, RN)2053 (Given - Provider: Harvey Bahena RN) 09 (Given - Provider: Sabas Walker RN) warfarin [...] Units/hr (10-140 mL/hr), Intravenous, CONTINUOUS, Starting on Thu05/26/17 at 0845, Until 05/30/17 at 0629, Patient [...] than 1.05 units/mL X 2 - 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 See Bolus dosing guidance for anti-Xa results [...] 3., Routine 0852 (Given - Provider: Sabas Walker RN) dextrose 50% IV syringe 25-50 mL(Linked Group [...] Routine 0833 (Given - Provider: Sabas Walker RN)2353 (Given - Provider: Devon Clark RN) lidocaine [...] Routine 0830 (Given - Provider: Sabas Walker, PAIGE) ondansetron (ZOFRAN) injection 4 mg 4 mg, Intravenous, EVERY 8 HOURS PRN, Starting on Thu05/25/17 at 1502, Until 05/30/17 at 1644, Nausea 1439 (Given - Provider: Sabas Walker, PAIGE) sodium chloride 0.9 % flush 5-20 mL [...] post-op day 1 in the AM Give OH if unable to take PO, Routine Group [...] Routine documented in this encounter Care Teams Processing Analyst Relationship Specialty Start Date End Date Mckenna Genao, SPEECH COACH [address] [facility] [place] [address] PCP - General Family Medicine 05/07/17 08/08/21 documented as of this encounter
--- OUTSIDE RECORDS SUMMARY | 2023-11-04 15:20 | XMS_ITS | Encounter Summary ---
[place] [address] Care Team Providers Care Signaling Design Engineer Name Role Phone SandraMckenna rodriguez SUELLEN Primary Care Provider [phone] Reason for Visit * Auth/Cert Specialty Diagnoses / Procedures Referred By Contac t Referred To Contact Diagnoses Chest pain WORSENING CHEST PAIN Referral ID Status Reason Start Date Expiration Date Visits Re quested Visits Authorized [id number] 1 1 Encounter Details Date Type Department Care Team (Late st Contact Info) Description 05/25/2017 10:47 AM EST Anesthesia Event Main [place] [address] Jeri Boston MD [facility] [place] [address] Corrie Jean MD [facility] [place] [address] Anesthesia Record Procedure Summary Procedure Name Responsible Anesthesiologist Anesthesia Start Time Anesthesia Stop Time @REPLACE AORTIC VALVE, OPEN, W\CPB, W\PROSTHETIC VALVE (WRVU 41.32) (Chest) Jeri Boston MD 05/25/17 1047 05/25/17 1453 Events Date Time Event Comment 05/25/2017 0819 1047 Start 1050 AN Verify 1050 An Start Data 1059 An Induction 1101 An Intubation 1103 SHON PROBE ONLY 1113 Anesthesia Ready 1135 Procedure Start 1137 Sternotomy 1148 AN AORTIC CANNULA 1152 AN Venous Cannula 1155 Retrograde Cannula 1157 CV Bypass init 1200 An Clamp start 1309 Machine Stitcher 1315 An Clamp Remove 1334 CP Bypass Ended 1342 Protamine 1418 Chest Closed 1439 an stop data 1453 Recovery or ICU Handoff Qiana ent care was transferred to the destination unit staff after review of the patient's medical history, current anesthetic/surgical status and plan, according to the Provider Handoff Checklist. 1453 Stop Meds Name Total Midazolam 5 mg fentaNYL 1,200 mcg Propofol 100 mg Propofol INF 198.77 mg Vecuronium 20 mg Protamine 250 mg Tranexamic Acid 720 mg Tranexamic Acid INF 262.17 mg Insulin Regular Human 5 Units Insulin Regular INF 5.25 Units ceFURoxime 3 g Vancomycin 1 g methylPREDNISolone 125 mg heparin (porcine) injection 2,500-5,000 Units 25,000 Units NORepinephrine INF 205 mcg EPINEPHrine INF 46 mcg Rocuronium 50 mg Sodium Chloride 0.9% 1,200 mL Lactated Ringers 0 mL * Agents Name O2 Air N2O Isoflurane (et) * Blood No blood administrations on file. Lines, Drains, and Airways Type Details Placement Removal (RETIRED) Peripheral IV Line - Single Lumen 05/24/17; 2231; basilic vein (medial side of arm), left (hand); butterfly needle; 22 gauge, 3/4 in length; distraction, tolerated well; 0; 05/30/17; 1129 05/24/17 223 by Alaina Cordova RN 05/30/17 1129 by Sabas Walker, RN (RETIRED) Peripheral IV Line - Single Lumen 05/25/17; 0802; median cubital vein (antecubital fossa), left; [id number] catheter system; 20 gauge; 05/30/17; 1130 05/25/17 0802 by Justo Yuen LPN 05/30/17 1130 by Sabas Walker, RN Arterial Line 05/25/17; 1057; radi al artery, left; 20 gauge; Sterile Prep, Sterile Gloves; 05/26/17; 0900 05/25/17 1057 by Corrie Jean MD 05/26/17 0900 by Ksenia Sung RN ETT Mask Ventilation: Ea sy (1); ETT Type: Cuffed; ETT Size: 7.5 mm; Mac Blade: 4; Notes: Asleep, Pre-O2, Stylette; Attempts: 1; Laryngoscopy Grade: 1; ETT Placement Verified By: Auscultation, Capnometry, Visual; Secured at Teeth: 23 cm; Removal Date: 05/25/17; Removal Time: 200305/25/17 1101 by Corrie Jean MD 05/25/172003 by Tamara Ivey RCP Urethral Catheter 05/25/17; 1104; Surg mallory longer than 2 hours; (Temp monitoring for procedure); indwelling catheter with core temperature probe; latex; 10; inserted at this facility; 1; 10; 10; (Hematuria noted on insertion of duenas. Pt was known to have this prior to duenas insertion); 05/27/17; 1615 05/25/17 1104 by Mckenna Granger RN 05/27/17 1615 by Pat Ely RN (RETIRED) Percutaneous Central Line - Single Lumen 05/25/17; 1111; internal jugular vein, right; Ultrasound Guidance; Yes; 9 Fr; SHON, Tubing Manometry, Transducer; CVC Protocol Performed; 05/27/17; 1735 05/25/17 1111 by Corrie Jean MD 05/27/17 1735 by Pat Ely RN (RETIRED) Pulmonary Artery Catheter - Triple Lumen 05/25/17; 1113; jugular vein, right internal; VIP; 8 Fr; CVC Protocol Performed; no longer indicated, catheter intact, removed per policy; 05/26/17; 0053 05/25/17 1113 by Corrie Jean MD 05/26/17 0053 by Ellyn Cardenas RN Incision 05/25/17; 1137; ches t; vertical; 12/02/21 (LDA cleanup utility RA#[id number]); 1715 (LDA cleanup utility RA#[id number]) 05/25/17 1137 by Mckenna Granger RN 08/29/22 1715 by Idalmis Bangura Chest Tube 05/25/17; 1355; Left ; anterior; mediastinum; (28 fr chest tube); 05/27/17; 1100 05/25/17 1355 by Mckenna Granger RN 05/27/17 1100 by Pat Ely RN Chest Tube 05/25/17; 1359; Righ t; anterior; mediastinum; (28 fr chest tube); 05/27/17; 1100 05/25/17 1359 by Mckenna Granger RN 05/27/17 1100 by Pat Ely RN NG/OG Tube 05/25/17; 1400; orogastric; center mouth; Taped; with ease, tubing intact; 05/25/17; 200405/25/17 1400 by Radha Palmer RN 05/25/172004 by Ellyn Cardenas RN documented in this encounter Social History Tobacco Use Types Packs/Day Years [...] AM EST documented as of this encounter OR Notes * Anesthesia Postprocedure Evaluation - Corrie Jean MD - 05/26/2017 7:49 AM EST [facility] [place]iology Post-procedure [place] Patient: Cecilia Dumont Procedure Summary Date Anesthesia Start Anesthesia Stop Room / Location 05/25/17 1047 1453 [facility] OR [facility] MAIN OR Procedure Diagnosis Surgeon Responsible Provider @REPLACE AORTIC VALVE, OPEN, W\CPB, W\PROSTHETIC VALVE (WRVU 41.32) (N/A Chest) (ai) Kuldeep Conner MD Low, Ying Hui, MD All Anesthesia Providers: Anesthesiologist: Jeri Boston MD Coke Loader: Corrie Jean MD Most Recent Vitals: 05/26/17 0641 BP: Pulse: (!) 120 Resp: 28 Temp: SpO2: Pain Patient Location: [facility] Level of Consciousness: Awake and Alert Pain Management: Satisfactory Analgesia PONV: PONV Resolved with Rx Cardiovascular Status: At Baseline and Hemodynamically Stable Respiratory Status: Stable Respiratory Status and Supplemental O2 (NC or FM) Postoperative Fluid Status: Intravascular EUvolemia Possible Anesthetic Complications: NONE apparent at time of evaluation Final Primary Anesthesia Type: General (The anesthetic type performed was the same as planned.) Comments: Extubated, anticipating transfer. PONV now resolved. Pain controlled. CORRIE JEAN MD * Anesthesia Preprocedure Evaluation - Jeri Boston MD - 05/25/2017 6:45 AM EST Pre-Anesthesia Evaluation for: Cecilia Dumont a 47 y.o. female. Procedure(s): @REPLACE AORTIC VALVE, OPEN, W\CPB, W\PROSTHETIC VALVE (WRVU 41.32) Patient Active Problem List Diagnosis ??? 47 [...] 2004 and 2011 Cardiac catheterization 04/01/12: RAP-13 PAP-30/17/23, PCWP-13, CO/CI-4.12/2.23; LVEF 60% infero-apical akinesis, inferior hypokinesis, normal R dominant coronary arteries. Near equalization of diastolic R&Lp ressures- cannot rule out mild constrictive pericardial physiology. Cardiac catheterization 07/16/04: RAP-1 PAP-18/5/10, PCWP- 2, CO/CI-4.13/2.40; LVEF 33% globa lhyopokinesis, christen coronary arteries ??? Antiphospholipid antibody syndrome--- aPTT not useful to track heparin dosing, on warfarin ?? On chronic coumadin ?? By hx, has required Lovenox bridge for procedures ?? History transient ischemic attacks, CVA, miscarriages, migraine headaches, and thrombocytopenia, ?? Seen by Dr. Hills, Apr 2017. See notes. ??? Dilated cardiomyopathy, improved Dx; 2003-, EF [...] 06/13/05: LVEF 60%, nl RV, ? PFO SHON 07/08/05: +1-2 AR, +1 MR, no PFO [...] Gross hematuria--- likely due to supratherapeutic heparin ??? Osteoporosis Prior treatment for osteoporosis while on prednisone with Actonel and calcium. DEXA 2001, spine -1.0, hip -0.6. Actonel DC'd 10/2008 ??? H/O total knee replacement Bilateral ??? Cerebral infarction---at age 21 Age 21 ??? Migraine Past Medical History: Diagnosis Date ??? Antiphospholipid [...] TUBAL LIGATION ??? TUBAL LIGATION Social History Substance Use Topics ??? Smoking status: Former Smoker Quit date: 10/22/2007 ??? Smokeless tobacco: Never Used ??? Alcohol use No History Drug Use No Allergies Allergen Reactions ??? Tramadol Upset stomach Medications: MAR and/or home medications have been reviewed. Physical Exam: Most Recent Vitals: 05/25/17 0500 BP: (!) 104/26 Pulse: 68 Resp: 18 Temp: 36.5 ??C (97.7 ??F) SpO2: 98% Body mass index is 27.06 kg/(m^2). Height: 162.6 cm (5' 4) Weight: 71.5 kg (157 lb 10.1 oz) Airway Assessment: Mallampati: III TM distance: <3 FB Neck ROM: full Cardiovascular Assessment: Rhythm: regular Pulmonary Assessment: breath sounds clear to auscultation Dental Assessment: - normal exam Misc Assessment: IV access: Peripheral line Other exam findings: Prominent incisors Anesthesia Plan: ASA 4 general, with a(n) intravenous induction 47 yo F with bicuspid AV and severe AI to AVR EF 55%, normal coronaries Antiphospholipid antibody syndrome on coumadin now transitioned, SLE, JAN on CPAP, HTN. CVA in teenyears without deficits Cr 0.85 Plan ga/ett/cap/cvl/pac/shon Periop anticoagulation plan: per Dr Hills's note dated 05/13/17 Discussed use of TXA with surgical team; will continue to use intraop TXA at usual dose. Region - Intrathoracic Cardiac Informed Consent: Anesthetic plan and risks discussed with patient and spouse. Use of blood products discussed with patient and spouse who consented to blood products. Plan discussed with resident. PAT Staff Note documented in this encounter Miscellaneous Notes * Addendum Note - Corrie Jean MD - 06/04/2017 8:38 AM EST Addendum created 06/04/17837 by Corrie Jean MD Anesthesia Intra LDAs edited, LDA properties accepted documented in this encounter Plan of Treatment Upcoming Encounters Date Type Department Care Team (Late st Contact Info) Description 11/11/2023 3:00 AM EDT Anti-Coag Telephone Visit [facility] [place] [phone] documented as of this encounter Visit Diagnoses Not on filedocumented in this encounter Administered Medications Inactive Administered Medications - up to 3 most recent administrations Medication Order MAR Action Action Date Dose Rate Site cefUROXime (ZINACEF) injection 1.5 g Administer over 60 Minutes, PRN, Starting on Thu05/25/17 at 1113, Until Thu05/25/17 at 1453, Anesthesia Intra-op, Routine Given 05/25/2017 2:22 PM EST 1.5 g Given 05/25/2017 11:13 AM EST 1.5 g EPINEPHrine 2 mg in dextrose 5% 250 mL infusion CONTINUOUS PRN, Starting on Thu05/25/17 at 1315, Until Thu05/25/17 at 1453, Anesthesia Intra-op New Bag 05/25/2017 1:15 PM EST 2 mcg/min 15 mL/hr fentaNYL 50 mcg/mL multi-dose injection PRN, Starting on Thu05/25/17 at 1055, Until Thu05/25/17 at 1453, Pain, Anesthesia Intra-op, Routine Given 05/25/2017 2:25 PM EST 100 mcg Given 05/25/2017 1:29 PM EST 100 mcg Given 05/25/2017 11:38 AM EST 250 mcg heparin (porcine) injection 2,500-5,000 Units 2,500-5,000 Units, Intravenous, BOLUS PER HEPARIN PROTOCOL, Starting on Thu05/24/17 at 1052, Until Thu05/25/17 at 1502, Per Protocol, Adjust to dosing chart, Patient [...] level - Per Protocol Routine, Routine Given 05/25/2017 11:42 AM EST 25,000 Units insulin regular human (HumuLIN;NovoLIN) 1unit/mL 150 Units in sodium chloride 0.9% 150 mL infusion CONTINUOUS PRN, Starting on Thu05/25/17 at 1241, Until Thu05/25/17 at 1453, Anesthesia Intra-op, Routine New Bag 05/25/2017 12:41 PM EST 5 Units/hr 5 mL/hr insulin regular human VIAL injection PRN, Starting on Thu05/25/17 at 1310, Until Thu05/25/17 at 1453, Anesthesia Intra-op, Routine Given 05/25/2017 1:10 PM EST 5 Units lactated Ringers infusion CONTINUOUS PRN, Starting on Thu05/25/17 at 1047, Until Thu05/25/17 at 1453, Anesthesia Intra-op New Bag 05/25/2017 10:47 AM EST methylPREDNISolone sodium succinate (PF) (SOLU-Medrol) 1,000 mg/8 mL injection PRN, Starting on Thu05/25/17 at 1124, Until Thu05/25/17 at 1453, Anesthesia Intra-op, Routine Given 05/25/2017 11:24 AM EST 125 mg midazolam (PF) (VERSED) 1 mg/mL multi-dose injection PRN, Starting on Thu05/25/17 at 1047, Until Thu05/25/17 at 1453, Sleep, Anesthesia Intra-op, Routine Given 05/25/2017 1:11 PM EST 2 mg Given 05/25/2017 10:47 AM EST 3 mg NORepinephrine 16 mcg/mL (standard ADULT and Pedi greater than 20 kg) infusion CONTINUOUS PRN, Starting on Thu05/25/17 at 1315, Until Thu05/25/17 at 1453, Anesthesia Intra-op, Routine Rate/Dose Change 05/25/2017 2:17 PM EST 1 mcg/min 3.8 mL/hr Rate/Dose Change 05/25/2017 2:03 PM EST 2 mcg/min 7.5 mL/ hr Rate/Dose Change 05/25/2017 1:38 PM EST 4 mcg/min 15 mL/h r propofol (DIPRIVAN) 10 mg/mL bolus injection (Anesthesia) PRN, Starting on Thu05/25/17 at 1059, Until Thu05/25/17 at 1453, Anesthesia Intra-op Given 05/25/2017 11:01 AM EST 50 mg Given 05/25/2017 10:59 AM EST 50 mg propofol (DIPRIVAN) infusion CONTINUOUS PRN, Starting on Thu05/25/17 at 1335, Until Thu05/25/17 at 1453, Anesthesia Intra-op, Routine Rate/Dose Change 05/25/2017 2:09 PM EST 40 mcg/kg/min 17.2 mL/hr New Bag 05/25/2017 1:35 PM EST 30 mcg/kg/min 12.9 mL/hr protamine injection PRN, Starting on Thu05/25/17 at 1342, Until Thu05/25/17 at 1453, Anesthesia Intra-op, Routine Given 05/25/2017 1:42 PM EST 250 mg rocuronium (ZEMURON) multi-dose injection PRN, Starting on Thu05/25/17 at 1329, Until Thu05/25/17 at 1453, Anesthesia Intra-op, Routine Given 05/25/2017 1:29 PM EST 50 mg sodium chloride 0.9% infusion CONTINUOUS PRN, Starting on Thu05/25/17 at 1113, Until Thu05/25/17 at 1453, Anesthesia Intra-op New Bag 05/25/2017 11:13 AM EST tranexamic acid (CYKLOKAPRON) 100 mg/mL bolus injection (Anesthesia) PRN, Starting on Thu05/25/17 at 1113, Until Thu05/25/17 at 1453, Anesthesia Intra-op, Routine Given 05/25/2017 11:13 AM EST 720 mg tranexamic acid (CYKLOKAPRON) injection Administer over 8 Hours, CONTINUOUS PRN, Starting on Thu05/25/17 at 1113, Until Thu05/25/17 at 1453, Anesthesia Intra-op, Routine New Bag 05/25/2017 11:13 AM EST 1 mg/kg/hr 0.7 mL/hr vancomycin (VANCOCIN) injection PRN, Starting on Thu05/25/17 at 1113, Until Thu05/25/17 at 1453, Anesthesia Intra-op, Routine Given 05/25/2017 11:13 AM EST 1 g vecuronium (NORCURON) injection PRN, Starting on Thu05/25/17 at 1059, Until Thu05/25/17 at 1453, Anesthesia Intra-op, Routine Given 05/25/2017 10:59 AM EST 20 mg documented in this encounter Care Teams Signaling Design Engineer Relationship Specialty Start Date End Date Mckenna Genao, SUELLEN [address] [place] [address] PCP - General Family Medicine 05/07/17 08/08/21 documented as of this encounter
--- OUTSIDE RECORDS SUMMARY | 2023-11-04 15:21 | XMS_ITS | Encounter Summary ---
[place] [address] Care Team Providers Care Ip Litigation Paralegal Name Role Phone Alaina Peralta APRN Primary Care Provider [phone] Reason for Visit * Reason Onset Date Comments Other 11/11/2013 question Encounter Details Date Type Department Care Team (Late st Contact Info) Description 11/11/2013 [place] [address] Lucille Gardner RN Other (question) Social History Tobacco Use Types Packs/Day Years Used Date Smoking Tobacco: Former Cigarettes Q uit: 10/22/2007 Alcohol Use Standard Drinks/Week Comments No 0 (1 standard drink = 0.6 oz pur e alcohol) Sex and Gender Information Value Date Recorded Sex Assigned at Female 05/01/2021 10:41 AM EST Gender Identity Female 05/01/2021 10:41 AM EST Sexual Orientation Straight 05/01/2021 10 :41 AM EST documented as of this encounter Miscellaneous Notes * Telephone Encounter - Lucille Gardner RN - 11/11/2013 12:30 PM EDT Cecilia called back and said she never received prednisone rx. Asked her to check with [facility] andsee if they still have it, if not we can resubmit. Told her message will be sent to Dr. Livingston to see if she wants to postpone appointment for a couple of weeks. * Telephone Encounter - Lucille Gardner RN - 11/11/2013 12:08 PM EDT Wanted to give her a trial of prednisone. We wrote the prescription last week (10/31/13). Were we able to speak to her. I left messages but she never got back. wanted to see her response to prednisoneon her f/u in 2 weeks. Called Cecilia and left message asking her to let us know if she received prednisone rx. documented in this encounter Plan of Treatment Upcoming Encounters Date Type Department Care Team (Late st Contact Info) Description 11/11/2023 3:00 AM EDT [place] [address] documented as of this encounter Visit Diagnoses Not on filedocumented in this encounter Care Teams Ip Litigation Paralegal Relationship Specialty Start Date End Date Alaina Peralta APRN PCP - General 01/20/13 06/01/16 documented as of this encounter
--- OUTSIDE RECORDS SUMMARY | 2023-11-04 15:21 | XMS_ITS | Encounter Summary ---
[place] [address] Care Team Providers Care Ruffling Machine Operator Name Role Phone Mckenna Genao SUELLEN Primary Care Provider [phone] Encounter Details Date Type Department Care Team (Late st Contact Info) Description 05/17/2017 External Results [address] [place] [phone] Social History Tobacco Use Types Packs/Day Years [...] Visit [facility] [place] [address] documented as of this encounter Procedures Procedure Name Priority Date/Time Associated Diagnosis Comments ECG SCAN Routine 05/17/2017 documented in this encounter Results * Scan Doc: ECG (05/17/2017) Historical Provider MEDIA MGR SCAN EX T ORDR/RSLT documented in this encounter Visit Diagnoses Not on filedocumented in this encounter Care Teams Ruffling Machine Operator Relationship Specialty Start Date End Date Mckenna Genao, SCOUT SNIPER [address] [place] [address] PCP - General Family Medicine 05/07/17 08/08/21 documented as of this encounter
--- OUTSIDE RECORDS SUMMARY | 2023-11-04 15:21 | XMS_ITS | Encounter Summary ---
[place] [address] Care Team Providers Care Meat Process Worker Name Role Phone SandraMckenna rodriguez SUELLEN Primary Care Provider [phone] Encounter Details Date Type Department Care Team (Late st Contact Info) Description 05/17/2017 [place] [phone] Clover Briseno MD [facility] [place] [address] Social History Tobacco Use Types Packs/Day Years [...] encounter Miscellaneous Notes * Telephone Encounter - Clover Briseno MD - 05/17/2017 8:24 PM EST Telephone Triage Note Initial Contact Date: 05/17/2017 Initial contact time: 1944 Referring Provider: Dr. Dacia Villalobos Patient Location: [facility] Presenting Symptoms per OSH: 47yoF w/h/o with a history of well established SLE and antiphospholipid antibody syndrome manifested with CVA (age 21) and multiple miscarriages, on snf chronic anticoagulation. She also has a history of nonischemic cardiomyopathy of unclear etiology felt related to her SLE (LVEF as low as 30% in 2004, persistently normal since 2011, clean cors on cath in 2004 and 2011) and severe aortic regurgitation for which she is followed by Dr. Robles of Cardiac Surgery. She has a chronic syndrome of atypical chest pain documented here in the past but has had worsening chest pain and shortnessof breath for the last several weeks, including an episode today which prompted her presentation tothe ED. She reported 10/10 chest pain associated with nausea and vomiting. She ruled out by troponins and EKGs there today and a few weeks ago for a similar presentation. However, she is planned for AVR for her severe AR which is currently planned for two weeks from now. Per Dr. Robles, who wasincluded on the call, she will need a catheterization prior to the surgery and will need to be bridged off her chronic anticoagulation (with warfarin for her antiphospholipid antibody syndrome) and on to heparin on an inpatient basis to allow for this. Given her escalating chest pain/dyspnea syndrome Dr. Robles requests that we transfer the patient for expedited cath and then he will arrange to move her surgery forward of its currently scheduled date in order to minimize multiple disruptions to her anticoagulation. Past Medical History: As per HPI Pertinent Diagnostic Findings: Vitals: T 36.8 BP 130/44 HR 82 SaO2 94% on 2L EKG : SR, LVH, poor R wave progression, no acute ischemic changes Troponin negative INR 3.7 Plan: Per Dr. Robles's request, we will accept this patient in transfer to help expedite her cardiac catheterization and surgery. Given our bed situation and the fact that we will not cath her with an INR of 3.7, I broached the idea of starting her anticoagulation bridging at the referring hospital and transferring at the time that we would be able to safely perform a cardiac catheterization (INR <2.0). However, the referring hospital is not comfortable with this and both they and Dr. Robles request we transfer now. The Subwarehouse Supervisor was contacted for approval since [facility] and approved this transfer. The patient is accepted for [facility] this [facility] On arrival, we willreassess her chest pain status. We will obtain a TTE tomorrow. Per Dr. Meneses's recommendations inher recent outpatient note, we will use anti-Xa levels to adjust the patient's heparin once started. We cannot use enoxaparin as this has increased bleeding risk associated with cardiac catheterization. We will engage the thrombosis team and cardiac surgery. documented in this encounter Plan of Treatment Upcoming Encounters Date Type Department Care Team (Late st Contact Info) Description 11/11/2023 3:00 AM EDT Anti-Coag Telephone Visit [facility] [place] [address] documented as of this encounter Visit Diagnoses Not on filedocumented in this encounter Care Teams Meat Process Worker Relationship Specialty Start Date End Date Mckenna Genao, SUELLEN [address] [place] [address] PCP - General Family Medicine 05/07/17 08/08/21 documented as of this encounter
--- OUTSIDE RECORDS SUMMARY | 2023-11-04 15:21 | XMS_ITS | Encounter Summary ---
[place] [address] Care Team Providers Care Bicycle Racer Name Role Phone Alaina Peralta APRN Primary Care Provider [phone] Reason for Visit * Reason Comments Obstructive Sleep Apnea Encounter Details Date Type Department Care Team (Late st Contact Info) Description 07/13/2013 1:30 PM EDT Follow-Up [facility] at [place] [address] [place] [address] Clarissa Boyd, TISSUE TECHNICIAN SLEEP CENTER JAN on CPAP (Primary Dx) Social History Tobacco Use Types [...] Sign Reading Time Taken Comments Blood Pressure 96/76 07/13/2013 1:20 PM EDT Pulse 77 07/13/2013 1:20 PM EDT Temperature - - Respiratory Rate - - Oxygen Saturation 94% 07/13/2013 1:20 PM EDT Inhaled Oxygen Concentration - - Weight 99.8 kg (220 lb) 07/13/2013 1:20 PM EDT Height 162.6 cm (5' 4) 07/13/2013 1:20 PM EDT Body Mass Index 37.76 07/13/2013 1:20 PM EDT documented in this encounter Progress Notes * Shannon Capps MD - 07/13/2013 4:28 PM EDT Ms. Cecilia Dumont was evaluated by Cynthia Boyd RRT and I reviewed the case and discussed the details. I have reviewed Cynthia Boyd RRT's note and agree with the assessment and recommendations. SHANNON CAPPS MD * Cynthia Boydberly Dinesh, TISSUE TECHNICIAN - 07/13/2013 1:28 PM EDT Sleep Medicine Clinical Health Specialist Brief Follow-Up Note HPI: Ms. Cecilia Dumont is a 43 y.o. female seen for follow-up of obstructive sleep apnea. Patientpresents today for follow-up in PAP clinic: Sleep Study: 2005 AHI: 31/hr Treatment: CPAP Pressure: 8-18 cm Interface: FFM-Quattro air Fit: Likes it Chin strap: no Humidifier Settin/5 Snoring: no Dry Mouth: Yes, using Act mouthwash per her dentist Mouth Breathing: yes Patient Perceived Outcome: Patient reports she feels more rested, wakes less and sleeping more soundly. Daytime Symptoms: Oden: 5/24 Naps: no Involuntary Dozing: As a passenger in the car, sometimes in the evening Driving: No drowsiness when driving ROS: ENT: Nasal Obstruction: no Constitutional: Weight She has gained 30+ lbs since starting her anti depressant medication-Abilify. Patient will address the weight gain with her PCP-Alaina Peralta Sleep Pattern: Bedtime: 11 pm, affixes mask, is asleep promptly Wake time: 6 am Awakenings: Nocturia-no Compliance Card Data: Date Range: 04/12-07/12/13 Settin-18 cm (90% 12 cm) Residual AHI: 2 Vibratory Snore Index: 7 % Night in Large Leak: 0 Average usage days used-Hours: 4 hr # Days of usage: 65/92 % Days used > 4 hours 52%. Total % Days used 71% Physical Exam: Respirations: Even and not labored at rest DERM: Skin Irritation no Filed Vitals: 07/13/13 1320 BP: 96/76 Pulse: 77 Height: 162.6 cm (5' 4) Weight: 99.791 kg (220 lb) SpO2: 94% Assessment Ms. Cecilia Dumont is a 43 y.o. female seen for obstructive sleep apnea. Patients card data shows patient is using CPAP inconsistently. Patient reports her inconsistent usage is due to falling asleep before she puts the mask on or if she stays over somewhere she does not bring the CPAP.We discussed the severity of her JAN and reviewed the data download, patient knows she needs to be using her CPAP consistently. Recommend she put the mask on immediately once in bed and bring the unit with her when staying over night elsewhere. I will have her RTC in 3 mos to assess for compliance. Humidifier/Heater function/rational and settings were reviewed with the patient-yes Mask fit/assembly also was reviewed with the patient along with supply replacement-yes Time spent face to face: 30 Min. Recomendations: 1) CPAP 8-18 cw with ramp. Humidity setting 3/5. 2) Follow-up: RTC 3 mos with Cynthia to assess compliance 3) Driving safety discussed, recommend patient not drive if drowsy, if drowsy while driving to pullover and take a nap. 4) Encourage weight loss 5) Increase PAP consistency The patient indicates understanding of these issues and agrees with the plan. documented in this encounter Plan of Treatment Upcoming Encounters Date Type Department Care Team (Late st Contact Info) Description 11/11/2023 3:00 AM EDT [place] [address] documented as of this encounter Visit Diagnoses Diagnosis JAN on CPAP- Primary Obstructive sleep apnea (adult) (pediatric) documented in this encounter Care Teams Bicycle Racer Relationship Specialty Start Date End Date Alaina Peralta APRN PCP - General 01/20/13 06/01/16 documented as of this encounter
--- OUTSIDE RECORDS SUMMARY | 2023-11-04 15:21 | XMS_ITS | Encounter Summary ---
[place] [address] Care Team Providers Care Country Director Name Role Phone Mckenna Genao APRN Primary Care Provider [phone] Encounter Details Date Type Department Care Team (Latest Contact Info) Description 05/17/2017 - 05/17/2017 10:56 PM EST Hospital Encounter [place] [id number] Mckenna Genao APRN [address] [place], [place] [address] Discharge Disposition: Home Social History Tobacco Use [...] 8 hours. 90 tablet 1 05/30/2017 06/30/2017 lisinopril (PRINIVIL;ZESTRIL) 10 mg Tablet Take 10 mg by mouth daily. 05/30/2017 cetirizine (ZYRTEC) 10 mg Tablet Take 10 mg by mouth daily. 03/21/2020 enoxaparin (LOVENOX) 100 mg/mL Syringe Inject 1 mL subcutaneously daily. 4 Syringe 1 05/13/2017 05/30/2017 LEVOTHYROXINE SODIUM (LEVOTHYROXINE ORAL) Take 25 mcg by mouth daily. Dosage Unknown 03/20/2020 fluconazole (DIFLUCAN) 150 mg Tablet Take 150 mg by mouth once. 05/18/2017 hydroxychloroquine (PLAQUENIL) 200 mg tablet Take 1 tablet by mouth 2 times daily. 60 tablet 6 11/07/2013 10/19/2018 predniSONE (DELTASONE) 5 mg tabletIndications:SL E (systemic lupus erythematosus) Take 20 mg for 5 days then 15mg for 5 days then 10 mg for 5 days then 5 mg and stop. 60 tablet 0 10/31/2013 05/18/2017 warfarin (COUMADIN) 5 mg tablet As directed 04/01/2012 03/21/2020 amoxicillin (AMOXIL) 500 mg capsule Take 1,000 mg by mouth as needed. 05/18/2017 pantoprazole (PROTONIX) 40 mg tablet Take 1 tablet by mouth daily. 90 tablet 3 11/11/2010 05/18/2017 documented as of this encounter Plan of Treatment Upcoming Encounters Date Type Department Care Team (Late st Contact Info) Description 11/11/2023 3:00 AM EDT Anti-Coag Telephone Visit [facility] [place] [address] documented as of this encounter Procedures Procedure Name Priority Date/Time Associated Diagnosis Comments FILM LIBRARY STORAGE ONLY DX CHEST Routine 05/17/2017 12:00 AM EST documented in this encounter Results * Film Library- Storage Only DX Chest (05/17/2017 12:00 AM EST) Narrative HUE GARCIA - 05/17/2017 7:58 PM EST This exam is for storage only and is auto-finalizing. Mckenna Genao APRN [facility] FILM LIBRARY ORD ERABLES [place], [place] documented in this encounter Visit Diagnoses Not on filedocumented in this encounter Care Teams Country Director Relationship Specialty Start Date End Date Mckenna Genao APRN [address] [place] [address] PCP - General Family Medicine 05/07/17 08/08/21 documented as of this encounter
--- OUTSIDE RECORDS SUMMARY | 2023-11-04 15:21 | XMS_ITS | Encounter Summary ---
[place] [address] Care Team Providers Care Lpc Name Role Phone Birgit Mckenna KEN Primary Care Provider [phone] Encounter Details Date Type Department Care Team (Late st Contact Info) Description 05/15/2017 Telephone [place]ematology [place] [address] Anna Deal RN Social History Tobacco Use Types Packs/Day [...] encounter Miscellaneous Notes * Telephone Encounter - Anna Deal RN - 05/15/2017 2:10 PM EST Images from the original note were not included. T/c from patient asking about the plan for anticoagulation at the time of her upcoming cardiac surgery with Dr. Robles. No surgical date planned to date. Reviewed Dr. Hills's AC plan and recommended patient contact Dr. Robles's office regarding exact date of procedure so she can plan accordingly. Patient in agreement with plan and will call back with any questions or concerns regarding AC plan. In possession of enoxaparin needed for preop bridging schedule. Anna KUMARI RN ===View-only below this line=== ----- Message ----- From: Rosa Maria Hills MD Sent: 05/13/2017 4:46 PM To: PAIGE Mcdonnell: See my note. Outpatient bridging pre-op with enoxaparin is fine, post-op with IV UFH using anti-Xa levels. If you can let me know the surgery date we'll let her know the anticoag plan. She and her can self-inject LMWH. Melissa Hills's perioperative AC recommendations 05/13/17 Pre-op bridging with enoxaparin is worthwhile. She should stop warfarin 5 days prior to surgery andcan self inject enoxaparin at home. A treatment dose is called for in this case, and for her, enoxaparin, 100 mg once daily (1.5 mg/kg) will suffice. Once we have a surgery date we can advise her when to stop warfarin and start enoxaparin. I have sent the prescription for 4 doses to her [facility] in [facility]. The schedule will go something like this: BRIDGING PROTOCOL TO BEGIN 5 DAYS PRIOR TO PROCEDURE Day Date Treatment -5 TBD Last warfarin dose -4 TBD 100 mg enoxaparin, SQ injection once daily in the morning -3 TBD 100 mg enoxaparin, SQ injection once daily in the morning -2 TBD 100 mg enoxaparin, SQ injection once daily in the morning -1 TBD 100 mg enoxaparin, SQ injection morning This is the last dose of enoxaparin before the procedure and should be administered not less than 24 hours before the procedure Check INR; if >1.5 administer 2.5 mg vitamin K orally ?? DAY 0: Day of procedure/surgery: NO enoxaparin. NO warfarin. ?? As above, for the CBP, targeting an ACT at the high end should be all that is necessary, though I may update this recommendation when I get the remaining lab test results back. ?? Heparin reversal with protamine as usual. ?? Post-operatively, IV unfractionated heparin should be started with monitoring using the atdixla-idnl-Qt level rather than the aPTT. It is ordered in eDH as follows with an anti-Xa target of 0.3 to 0.7 IU/mL, aiming for the mid to high end of the target range: ? She should be bridged back to warfarin, target INR as appropriate for the valve, using the heparin drip. I'm a little reluctant to recommend outpatient enoxaparin bridging once the valve is in, giventhe tendency of LMWH to fail with valves in high risk patients. ?? Throughout the process, the time off anticoagulation should be minimized. ?? Will be in touch with Dr. Robles regarding the surgery date. documented in this encounter Plan of Treatment Upcoming Encounters Date Type Department Care Team (Late st Contact Info) Description 11/11/2023 3:00 AM EDT Anti-Coag Telephone Visit [facility] [place] [address] documented as of this encounter Visit Diagnoses Not on filedocumented in this encounter Care Teams Lpc Relationship Specialty Start Date End Date Mckenna Genao APRN [address] [place] [address] PCP - General Family Medicine 05/07/17 08/08/21 documented as of this encounter
--- OUTSIDE RECORDS SUMMARY | 2023-11-04 15:21 | XMS_ITS | Encounter Summary ---
[place] [address] Care Team Providers Care Pay Per Click Strategist Name Role Phone Mckenna Genao APRN Primary Care Provider [phone] Encounter Details Date Type Department Care Team (Latest Contact Info) Description 05/13/2017 1:53 PM EST - 05/13/2017 11:59 PM EST Hospital Encounter Hematology [place] [phone] Anticoagulated by anticoagulation treatment; Antiphospholipid antibody syndrome Discharge Disposition: Home Social History Tobacco Use [...] Sig Dispensed Refills Start Date End Date multivitamin with minerals tablet 1 Tablet(s), PO, Once daily 06/05/2010 enoxaparin (LOVENOX) 100 mg/mL Syringe Inject 1 [...] 11/11/2023 3:00 AM EDT Anti-Coag Telephone Visit [facility] [place] [address] documented as of this encounter Procedures Procedure Name Priority Date/Time Associated Diagnosis Comments LUPUS ANTICOAGULANT Routine 05/13/2017 2 :04 PM EST Anticoagulated by anticoagulation treatment Antiphospholipid antibody syndrome HEMOGRAM Routine 05/13/2017 2:04 PM EST Anticoagulated by anticoagulation treatment Antiphospholipid antibody syndrome BETA-2 GLYCOPROTEIN ANTIBODIES Routine 05/13/2017 2:04 PM EST Anticoagulated by anticoagulation treatment Antiphospholipid antibody syndrome CARDIOLIPIN ANTIBODY SCREEN Routine 05/13/2017 2:04 PM EST Anticoagulated by anticoagulation treatment Antiphospholipid antibody syndrome APTT Routine 05/13/2017 2:04 PM EST Anticoagulated by anticoagulation treatment Antiphospholipid antibody syndrome PROTHROMBIN TIME Routine 05/13/2017 2:04 PM EST Anticoagulated by anticoagulation treatment Antiphospholipid antibody syndrome BASIC METABOLIC PANEL (NON-FASTING) Routine 05/13/2017 2:04 PM EST Anticoagulated by anticoagulation treatment Antiphospholipid antibody syndrome documented in this encounter Results * (ABNORMAL) Prothrombin Time (05/13/2017 2:04 PM EST) Pathologist [facility] PT 19.7(H) 11.8 - 14.0 sec [facility] INR 1.7(H) 0.9 - 1.1 [facility] Comment: An INR <2.0 indicates [...] depending on clinical circumstances. Blood specimen (specimen) 05/13/2017 2:04 PM EST 05/13/2017 2:10 PM EST Narrative Resulting Agency Comment Spec In Lab Rosa Maria Hills MD HEMATOLOGY ORDERAB LES [facility] [place] [address] * (ABNORMAL) Beta-2 glycoprotein antibodies (05/13/2017 2:04 PM EST) Pathologist [facility] B2GPI IgG >100(H) <=20 unit(s) [facility] Comment: Ranges ?Units ----- ? ----- Normal ? <21 Low Positive (+) ?21-50 Moderate Positive (+) ? 51-100 High Positive (+) ?>100 B2GPI IgM <21 <=20 unit(s) [facility] Comment: Ranges ? Units ----- ?----- Normal ?<21 Low Positive (+) ? 21-50 Moderate Positive (+) ?51-100 High Positive (+) ? >100 B2GPI Interp No comment [facility] Blood specimen (specimen) 05/13/2017 2:04 PM EST 05/14/2017 7:46 AM EST Narrative Resulting Agency Comment Spec In Lab Rosa Maria Hills MD IMMUNOLOGY ORDERAB LES Performing Organization Address City/State/[facility] Co de Phone Number [facility] [place] [address] * (ABNORMAL) Cardiolipin Antibody Screen (05/13/2017 2:04 PM EST) Cardiolipin IgG 67(H) <=22 GPL unit(s) [facility] Comment: Ranges ? GPL ------- ? ------ Normal ?<23 Low Positive ? 23-35 Moderate Positive ?36-50 High Positive ? >50 Cardiolipin IgM <11 <=10 MPL unit(s) [facility] Comment: Ranges ?MPL ----- ?----- Normal ?<11 Low Positive ? 11-20 Moderate Positive ?21-30 High Positive ? >30 Blood specimen (specimen) 05/13/2017 2:04 PM EST 05/14/2017 7:46 AM EST Narrative Resulting Agency Comment Spec In Lab Rosa Maria Hills MD IMMUNOLOGY ORDERAB LES Performing Organization Address [facility] Co de Phone Number [facility] [place] [address] * (ABNORMAL) Lupus Anticoagulant (05/13/2017 2:04 PM EST) Pathologist [facility] Lupus Anticoag Pos(A) Neg [facility] Comment:110.0-84.9 = 25 Blood specimen (specimen) 05/13/2017 2:04 PM EST 05/13/2017 2:10 PM EST Narrative Resulting Agency Comment Spec In Lab Rosa Maria Hills MD HEMATOLOGY ORDERAB LES Performing Organization Address [facility] Co de Phone Number [facility] [place] [address] * Basic Metabolic Panel (non-fasting) (05/13/2017 2:04 PM EST) Glucose Lvl 85 65 - 199 mg/dL [facility] Comment:Diabetes: >=200 mg/d L plus symptoms BUN 14 8 - 18 mg/dL [facility] Creatinine 0.78 0.70 - 1.20 mg/dL [facility] Sodium 143 135 - 145 mmol/L [facility] Potassium 4.0 3.5 - 5.0 mmol/L [facility] Comment: Please note: ??Patients with WBC >100,000 may have falsely elevated Potassium levels. ??For accurate Potassium quantification in these patients send serum separator tube (gold top) for subsequent determinations. ??Contact the Clinical Chemistry Laboratory if there are any questions. Chloride 102 98 - 107 mmol/L [facility] CO2 28 22 - 31 mmol/L [facility] Anion Gap 13 5 - 15 mmol/L [facility] Calcium 9.2 8.5 - 10.5 mg/dL [facility] Estimated GFR >60 >=60 [facility] Comment: The reported eGFR should be multiplied by 1.2 for patients. The MDRD is not an appropriate measure of renal function for patients with body mass extremes or in patients with acute kidney failure. http://[employer]/DHnkdep http://[employer]/DHMCnkf Blood specimen (specimen) 05/13/2017 2:04 PM EST 05/13/2017 2:10 PM EST Narrative Resulting Agency Comment Spec In Lab Rosa Maria Hills MD CHEMISTRY ORDERABL ES [facility] [place] [address] * (ABNORMAL) Hemogram (05/13/2017 2:04 PM EST) WBC 5.2 4.0 - 9.5 x10(3)/[facility] RBC 4.09 4.00 - 5.21 x10(6)/[facility] Hemoglobin 13.6 11.7 - 15.5 gm/dL [facility] Hematocrit 37.7 35.7 - 45.8 % [facility] MCV 92.2 82.6 - 94.4 fL [facility] MCH 33.3(H) 27.1 - 32.0 pg [facility] MCHC 36.1(H) 31.7 - 35.0 gm/dL [facility] Platelets 198 145 - 357 x10(3)/[facility] RDWSD 43.2 37.0 - 46.0 [facility] RDWCV 12.9 11.5 - 14.1 % [facility] MPV 10.8 7.6 - 12.9 [facility] nRBC % Auto 0.0 % [facility] nRBC Abs Auto 0.000 0.000 - 0.000 x10(3)/[facility] Blood specimen (specimen) 05/13/2017 2:04 PM EST 05/13/2017 2:10 PM EST Narrative Resulting Agency Comment Spec In Lab Rosa Maria Hills MD HEMATOLOGY ORDERAB LES Performing Organization Address City/[facility]/ZIP Co de Phone Number [facility] [place] [address] * (ABNORMAL) APTT (05/13/2017 2:04 PM EST) [facility] Signature PTT 44(H) 25 - 35 sec [facility] Comment: The recommended therapeutic range for full dose, unfractionated heparin at [facility] is 80 ? 114 seconds. The use of the anti-Xa (heparin) level rather than the PTT is recommended for monitoring anticoagulation intensity in critically ill patients receiving unfractionated heparin by continuous IV infusion. Blood specimen (specimen) 05/13/2017 2:04 PM EST 05/13/2017 2:10 PM EST Narrative Resulting Agency Comment Spec In Lab Rosa Maria Hills MD HEMATOLOGY ORDERAB LES Performing Organization Address City/[facility]/ZIP Co de Phone Number [facility] [place] [address] documented in this encounter Visit Diagnoses Diagnosis Anticoagulated by anticoagulation treatment Encounter for long-term (current) use of anticoagulants Antiphospholipid antibody syndrome Primary hypercoagulable state documented in this encounter Care Teams Pay Per Click Strategist Relationship Specialty Start Date End Date Mckenna Genao APRN [address] [place] [address] PCP - General Family Medicine 05/07/17 08/08/21 documented as of this encounter
--- OUTSIDE RECORDS SUMMARY | 2023-11-04 15:21 | XMS_ITS | Encounter Summary ---
[place] [address] Care Team Providers Care Psychotherapist Counselor Name Role Phone Alaina Peralta APRN Primary Care Provider [phone] Encounter Details Date Type Department Care Team (Late st Contact Info) Description 10/31/2013 Orders [place] [phone] Frances Livingston MD [facility] [place] [address] SLE (systemic lupus erythematosus) (Primary Dx) Social History Tobacco Use Types [...] 11/11/2023 3:00 AM EDT [place] [address] documented as of this encounter Visit Diagnoses Diagnosis SLE (systemic lupus erythematosus)- Primary Systemic lupus erythematosus documented in this encounter Care Teams Psychotherapist Counselor Relationship Specialty Start Date End Date Alaina Peralta APRN PCP - General 01/20/13 06/01/16 documented as of this encounter
--- OUTSIDE RECORDS SUMMARY | 2023-11-04 15:21 | XMS_ITS | Encounter Summary ---
[place] [address] Care Team Providers Care Medical Care Administrator Name Role Phone Birgit Mckenna KEN Primary Care Provider [phone] Encounter Details Date Type Department Care Team (Latest Contact Info) Description 05/13/2017 1:30 PM EST Office Visit Hematology [place] [address] Rosa Maria Hills MD [facility] [address] [place] [address] Anticoagulated by anticoagulation treatment; Antiphospholipid antibody syndrome Social History Tobacco Use Types Packs/Day Years [...] Sign Reading Time Taken Comments Blood Pressure 131/33 05/13/2017 1:12 PM EST Pulse 72 05/13/2017 1:12 PM EST Temperature 36.5 ??C (97.7 ??F) 05/13/2017 1:12 PM ES T Respiratory Rate 18 05/13/2017 1:12 PM EST Oxygen Saturation 97% 05/13/2017 1:12 PM EST Inhaled Oxygen Concentration - - Weight 71.5 kg (157 lb 9.6 oz) 05/13/2017 1:12 P M EST Height 162.2 cm (5' 3.86) 05/13/2017 1:12 PM ES T Body Mass Index 27.17 05/13/2017 1:12 PM EST documented in this encounter Progress Notes * Rosa Maria Hills MD - 05/13/2017 1:30 PM EST Images from the original note were not included. [facility] [place] [address] THROMBOSIS CONSULTATION DATE OF VISIT 05/13/2017 Patient eCcilia Lowery 1970 REFERRING PHYSICIAN Koko Robles MD PRIMARY CARE PHYSICIAN Mckenna Genao, SUELLEN REASON FOR CONSULTATION Perioperative anticoagulation recommendations HISTORY OF THE PRESENT ILLNESS Cecilia Lowery is a 47 y.o. woman with a history of CVA, SLE and positive tests for antiphospholipid antibodies, who is seen in consultation at the request of Dr. Koko Robles for anticoagulationrecommendations.The history is obtained from the patient, and I have reviewed extensive medical records provided by the referring physician and located in the electronic medical record to fill in g aps in the patient's recollection of events, treatments and outcomes.In February of 1993, she had acute left hemiparesis and slurred speech, and was taken care of in [place] for a right thalamic stroke.She has since recovered full strength of the left sided extremities. She returned to [place] shortly thereafter and was eventually diagnosed with systemic lupus erythematosis with a positive test for ZURI, B2G1 and LA. She was cared for by Dr. Shanelle Lozada in Rheumatology for many years who startedher on anticoagulation. She has been anticoagulated variously with enoxaparin or heparin for the past ~25 years. She has had no recurrence of CVA and has never had an episode of venous thromboembolism. She has had 4 miscarriages, but has delivered two healthy babies with the use of heparin/enoxaparin during the period. Cecilia has symptomatic aortic valve disease and will be scheduled in the near future for a valve replacement procedure using a mechanical prosthetic valve. This will require CPB and heparinization. She has bridged on and off warfarin with LMWH injections in the past and both she and her are facile with injections. She does not smoke, is not obese and has no family history of VTE. Her thrombosis risk factors are noted below: THROMBOSIS RISK FACTORS Risk Factor Comment Obesity (BMI >30 kg/m2) V/A Body mass index is 27.17 kg/(m^2). Diabetes V/A Current smoker V/A Estrogen or estrogen/progestin V/A V/A Inflammatory disease V/A X SLE Recent surgery (<3 months) V Recent hospitalization (<3 mo) V Recent travel (<3 mo) V Period of immobility V Documented thrombophilia V X APLA Accident/Trauma V/A Cancer or treatment for cancer V/A Blood transfusion V/A Central venous catheter V Family history (1st degree) V/A Varicose veins/venous insuff. V Hypertension A Hyperlipidemia A Vascular disease A V: Risk factor for venous thrombosis; A: Risk factor for arterial thrombosis In the office today Cecilia reports feeling generally well. She is under the impression that she is to be admitted for a cardiac catheterization today followed by surgery tomorrow, but I think she misunderstood Dr. Robles's plan. She has had no significant bleeding episodes with warfarin but finds that her INRs can be somewhat labile. She has dyspnea on exertion but not at rest and some chest discomfort that she describes as pins being stuck in a pin cushion. She has no leg swelling or pain. She has a dilated cardiomyopathy, thought to be related to SLE, and has had episodes of acute decompensated heart failure. A recent echocardiogram showed severe AI but generally normal LV systolic func tion. She has no renal disease. She has had bilateral knee replacements but has no active issues with other joints presently. She has no leg swelling or pain. Cecilia was cared for by Dr. Lozada for 19 years and when she retired, Cecilia became very depressed and did not see a [employer] for a few years. She saw one of the fellows a few years ago but they didn't really connect so she hasn't been ba ck. PAST MEDICAL HISTORY 1. SLE, as above 2. Antiphospholipid antibodies, as above 3. Dilated cardiomyopathy 4. Bicuspid aortic valve with severe AI 5. Hx pulmonary alveolar hemorrhage OPERATIVE PROCEDURES 1. Bilateral TKA, 2004 2. Dental extractions 3. Tubal ligation 4. D&C 5. Myringotomy tubes OBSTETRIC HISTORY G6, 4 miscarriages, 2 live births MEDICATIONS Current Outpatient Prescriptions on File Prior to Visit Medication Sig Dispense Refill ??? LEVOTHYROXINE SODIUM (LEVOTHYROXINE ORAL) Take by mouth daily. Dosage Unknown ??? fluconazole (DIFLUCAN) 150 mg Tablet Take 150 mg by mouth once. ??? hydroxychloroquine (PLAQUENIL) 200 mg tablet Take 1 tablet by mouth 2 times daily. 60 tablet 6 ??? predniSONE (DELTASONE) 5 mg tablet Take 20 mg for 5 days then 15mg for 5 days then 10 mg for 5 days then 5 mg and stop. 60 tablet 0 ??? warfarin (COUMADIN) 5 mg tablet As directed ??? amoxicillin (AMOXIL) 500 mg capsule Take 1,000 mg by mouth as needed. ??? pantoprazole (PROTONIX) 40 mg tablet Take 1 tablet by mouth daily. 90 tablet 3 ??? multivitamin with minerals tablet 1 Tablet(s), PO, Once daily No current facility-administered medications on file prior to visit. ADVERSE DRUG REACTIONS Allergies as of 05/13/2017 - Review Complete 05/13/2017 Allergen Reaction Noted ??? Tramadol 03/22/2012 FAMILY HISTORY Parents are alive in their 60's. No VTE 3 siblings, no VTE SOCIAL HISTORY to [place] x 18 years. They live in [facility]. 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 [email or web address] Cale manages a [employer] Between them they have 6 children & several grandchildren Nonsmoker REVIEW OF SYSTEMS Fevers/chills/sweats No Recent infections No Unexplained weight loss No Headache/lightheadedness/syncope No Sinus pain/pressure No Oral sores/lesions/bleeding No Sore throat/dysphagia No Nosebleeds No Cough/SOB/chest pain/heart racing Yes Nausea/vomiting/dyspepsia No Abdominal pain No Diarrhea/constipation No Urinary pain, burning, incontinence No Hematuria No Vaginal discharge/bleeding No Skin rashes/ulcers No Back/joint pain/swelling No Leg swelling/pain/redness No Bruising/petechiae/bleeding/melena No Sensory/motor No Polydipsia/polyuria/heat/cold intol No Lumps/bumps/swollen glands No Other Negative except as above PHYSICAL EXAMINATION BP (!) 131/33 (Patient Position: Sitting) Pulse 72 Temp 36.5 ??C (97.7 ??F) (Temporal) Resp 18 Ht 162.2 cm (5' 3.86) Wt 71.5 kg (157 lb 9.6 oz) SpO2 97% BMI 27.17 kg/m2 GENERAL: Well-appearing, articulate white female. HEENT: Oropharynx clear; no mucosal lesions, petechiae, bleeding, thrush or ulcers. NECK: Supple; no cervical, supraclavicular or submental adenopathy. BREASTS: Exam deferred. CHEST/LUNGS: Clear to auscultation/percussion. No rales, rhonchi, wheezes. HEART: Regular rate and rhythm; loud systolic murmur throughout. GASTROINTESTINAL: Abdomen soft, non-tender, no hepatosplenomegaly. GENITOURINARY: Exam deferred. EXTREMITIES: No clubbing, cyanosis or edema. No erythema, tenderness or palpable cords. No venous varicosities. No skin discoloration or hemosiderin deposits. Peripheral pulses palpable. MUSCULOSKELETAL: Spine nontender. Full ROM all joints. No acutely inflamed joints. SKIN: No ecchymoses, petechiae, ulcers or rashes. LYMPH: No palpable lymph nodes. NEUROLOGIC: Alert, oriented. Speech clear, coherent. No focal deficits noted. PSYCHIATRIC: Appropriate affect, no apparent distress. LABORATORY STUDIES Results for CECILIA LOWERY ( ) as of 05/13/2017 15:47 Ref. Range 05/13/2017 14:04 WBC Latest Ref Range: 4.0 - 9.5 x10(3)/mcL 5.2 RBC Latest Ref Range: 4.00 - 5.21 x10(6)/mcL 4.09 Hemoglobin Latest Ref Range: 11.7 - 15.5 gm/dL 13.6 Hematocrit Latest Ref Range: 35.7 - 45.8 % 37.7 MCV Latest Ref Range: 82.6 - 94.4 fL 92.2 MCH Latest Ref Range: 27.1 - 32.0 pg 33.3 (H) MCHC Latest Ref Range: 31.7 - 35.0 gm/dL 36.1 (H) RDWSD Latest Ref Range: 37.0 - 46.0 fL 43.2 RDWCV Latest Ref Range: 11.5 - 14.1 % 12.9 Platelets Latest Ref Range: 145 - 357 x10(3)/mcL 198 MPV Latest Ref Range: 7.6 - 12.9 fL 10.8 nRBC % Auto Latest Units: % 0.0 nRBC Abs Auto Latest Ref Range: 0.000 - 0.000 x10(3)/mcL 0.000 PT Latest Ref Range: 11.8 - 14.0 sec 19.7 (H) INR Latest Ref Range: 0.9 - 1.1 1.7 (H) PTT Latest Ref Range: 25 - 35 sec 44 (H) Sodium Latest Ref Range: 135 - 145 mmol/L 143 Potassium Latest Ref Range: 3.5 - 5.0 mmol/L 4.0 Chloride Latest Ref Range: 98 - 107 mmol/L 102 CO2 Latest Ref Range: 22 - 31 mmol/L 28 Anion Gap Latest Ref Range: 5 - 15 mmol/L 13 BUN Latest Ref Range: 8 - 18 mg/dL 14 Creatinine Latest Ref Range: 0.70 - 1.20 mg/dL 0.78 Estimated GFR Latest Ref Range: >=60 >60 Glucose Lvl Latest Ref Range: 65 - 199 mg/dL 85 Calcium Latest Ref Range: 8.5 - 10.5 mg/dL 9.2 LAB RESULTS: [id number] CECILIA LOWERY 06/28/2002 Anti-Cardiolipin IgG 54 H * Anti-Cardiolipin IgM <11 * Ydxy-4-Bweynbzgcgj I IgG >100 Mpni-7-Ofbjwvswfbih I IgM <21 * LAB RESULTS: [id number] CECILIA LOWERY 06/28/2002 Lupus Anticoagulant POSITIVE RADIOGRAPHIC STUDIES I have personally reviewed images from the following studies: No relevant studies. IMPRESSION Cecilia Lowery is a 47 y.o. woman with SLE and antiphospholipid antibodies. Clinically, she certainly sounds like she has the full blown antiphospholipid syndrome, though I cannot see that the laboratory criteria have been met as I only see test results for one point in time, thus persistence of the antibodies has not been demonstrated. Nevertheless, we'll proceed on the assumption that she has APS and is at risk for both arterial and venous thromboembolism perioperatively. She has a normal platelet count and normal renal function, both of which are reassuring. Her INR is slightly low and her aPTT is about where I would expect it to be from the warfarin, though I can't rule out a minor effect from a LA. She will benefit from pre-op bridging with LMWH as an outpatient followed by scrupulous anticoagulation while on bypass and post-op to avoid precipitating an episode of catastrophic antiphospholipid syndrome. PLAN/RECOMMENDATIONS I reviewed my impression with Cecilia and her family and reassured them that we can manage her anticoagulation around the surgery. First, I'd like to check her antibody titers to 1) confirm the diagnosis of APS and 2) estimate theeffect of her antibodies on tests for measuring heparin. Generally, I recommend targeting the ACT at the high end of the range for heparin anticoagulation for patients with LA who undergo surgery with cardiac bypass. IF, however, she has a particularly strong LA, then correlating the ACT with the anti-Xa level at least once will be reasonable to ensure that the ACT is not falsely high. My suspicion, given her only mild prolongation of the aPTT while on warfarin, however is that we won't have a problem with the ACT. Pre-op bridging with enoxaparin is worthwhile. She [...] the prescription for 4 doses to her [facility]. The schedule will go something like this: [...] >1.5 administer 2.5 mg vitamin K orally DAY 0: Day of procedure/surgery: NO enoxaparin. NO warfarin. As above, for the CBP, targeting an ACT at the high end should be all that is necessary, though I may update this recommendation when I get the remaining lab test results back. Heparin reversal with protamine as usual. Post-operatively, IV unfractionated heparin should be started with monitoring using the [id number] level rather than the aPTT. It is ordered in eDH as follows with an anti-Xa target of 0.3 to 0.7 IU/mL, aiming for the mid to high end of the target range: She should be bridged back to warfarin, target INR as appropriate for the valve, using the heparin drip. I'm a little reluctant to recommend outpatient enoxaparin bridging once the valve is in, giventhe tendency of LMWH to fail with valves in high risk patients. Throughout the process, the time off anticoagulation should be minimized. Will be in touch with Dr. Robles regarding the surgery date. Cecilia Lowery had the opportunity to ask questions and indicated that all her questions were answered to her satisfaction. We'll contact her with the anticoagulation plan once there is a surgery date. Rosa Maria Hills MD [facility] 05/18/2017 ADDENDUM TO REPORT LABORATORY RESULTS Results for CECILIA LOWERY ( ) as of 05/18/2017 15:34 Ref. Range 05/13/2017 14:04 PT Latest Ref Range: 11.8 - 14.0 sec 19.7 (H) INR Latest Ref Range: 0.9 - 1.1 1.7 (H) PTT Latest Ref Range: 25 - 35 sec 44 (H) Lupus Anticoag Latest Ref Range: Neg Pos (A) B2GPI IgG Latest Ref Range: <=20 unit(s) >100 (H) B2GPI IgM Latest Ref Range: <=20 unit(s) <21 Cardiolipin IgG Latest Ref Range: <=22 GPL unit(s) 67 (H) Cardiolipin IgM Latest Ref Range: <=10 MPL unit(s) <11 Impression: Antiphospholipid syndrome. Recommendations: As above. Rosa Maria Hills MD [facility] documented in this encounter Plan of Treatment Upcoming Encounters Date Type Department Care Team (Late st Contact Info) Description 11/11/2023 3:00 AM EDT Anti-Coag Telephone Visit [facility] [place] [id number] documented as of this encounter Results * Basic Metabolic Panel (non-fasting) (05/13/2017 2:04 PM EST) Glucose Lvl 85 65 - 199 mg/dL [facility] Comment:Diabetes: >=200 mg/d L plus symptoms BUN 14 8 - 18 mg/dL [facility] Creatinine 0.78 0.70 - 1.20 mg/dL [facility] Sodium 143 135 - 145 mmol/L [facility] Potassium 4.0 3.5 - 5.0 mmol/L [facility] Comment: Please note: ??Patients with WBC >100,000 may have falsely elevated Potassium levels. ??For accurate Potassium quantification in these patients send serum separator tube (gold top) for subsequent determinations. ??Contact the Clinical Chemistry Laboratory if there are any questions. Chloride 102 98 - 107 mmol/L [facility] CO2 28 22 - 31 mmol/L [facility] Anion Gap 13 5 - 15 mmol/L [facility] Calcium 9.2 8.5 - 10.5 mg/dL [facility] Estimated GFR >60 >=60 [facility] Comment: The reported eGFR should be multiplied by 1.2 for patients. The MDRD is not an appropriate measure of renal function for patients with body mass extremes or in patients with acute kidney failure. http://Fanmode.travelfox/DHnkdep http://Fanmode.travelfox/DHMCnkf Blood specimen (specimen) 05/13/2017 2:04 PM EST 05/13/2017 2:10 PM EST Narrative Resulting Agency Comment Spec In Lab Rosa Maria Hills MD CHEMISTRY ORDERABL ES Performing Organization Address City/[facility]/ZIP Co de Phone Number [facility] [place] [address] * (ABNORMAL) Hemogram (05/13/2017 2:04 PM EST) WBC 5.2 4.0 - 9.5 x10(3)/[facility] LAB[facility]AT[facility] RBC 4.09 4.00 - 5.21 x10(6)/[facility] Hemoglobin 13.6 11.7 - 15.5 gm/dL [facility] Hematocrit 37.7 35.7 - 45.8 % [facility] MCV 92.2 82.6 - 94.4 [facility] MCH 33.3(H) 27.1 - 32.0 pg [facility] MCHC 36.1(H) 31.7 - 35.0 gm/dL [facility] Platelets 198 145 - 357 x10(3)/[facility] LABORATORY RDWSD 43.2 37.0 - 46.0 [facility] RDWCV 12.9 11.5 - 14.1 % [facility] MPV 10.8 7.6 - 12.9 [facility] nRBC % Auto 0.0 % [facility] nRBC Abs Auto 0.000 0.000 - 0.000 x10(3)/[facility] Blood specimen (specimen) 05/13/2017 2:04 PM EST 05/13/2017 2:10 PM EST Narrative Resulting Agency Comment Spec In Lab Rosa Maria Hills MD HEMATOLOGY ORDERAB LES Performing Organization Address City/[facility]/ZIP Co de Phone Number [facility] [place] [address] * (ABNORMAL) APTT (05/13/2017 2:04 PM EST) Pathologist [facility] PTT 44(H) 25 - 35 sec [facility] Comment: The recommended therapeutic range for full dose, unfractionated heparin at [facility] is 80 ? [...] MD HEMATOLOGY ORDERAB LES Performing Organization Address City/[facility]/ZIP Co de Phone Number [facility] [place] [address] * (ABNORMAL) Prothrombin Time (05/13/2017 2:04 PM EST) [facility] PT 19.7(H) 11.8 - 14.0 sec [facility] INR 1.7(H) 0.9 - 1.1 [facility] Comment: An INR <2.0 indicates [...] MD HEMATOLOGY ORDERAB LES Performing Organization Address City/[facility]/ZIP Co de Phone Number [facility] [place] [address] * (ABNORMAL) Beta-2 glycoprotein antibodies (05/13/2017 2:04 PM EST) [facility] B2GPI IgG >100(H) <=20 unit(s) [facility] Comment: Ranges ?Units ----- ? ----- Normal ? <21 Low Positive (+) ?21-50 Moderate Positive (+) ? 51-100 High Positive (+) ?>100 B2GPI IgM <21 <=20 unit(s) [facility] Comment: Ranges ? Units ----- ?----- Normal ?<21 Low Positive (+) ? 21-50 Moderate Positive (+) ?51-100 High Positive (+) ? >100 B2GPI Interp No comment [facility] Blood specimen (specimen) 05/13/2017 2:04 PM EST 05/14/2017 7:46 AM EST Narrative Resulting Agency Comment Spec In Lab Rosa Maria Hills MD IMMUNOLOGY ORDERAB LES [facility] [place] [address] * (ABNORMAL) Cardiolipin Antibody Screen (05/13/2017 2:04 PM EST) Cardiolipin IgG 67(H) <=22 GPL unit(s) [facility] Comment: Ranges ? GPL ------- ? ------ Normal ?<23 Low Positive ? 23-35 Moderate Positive ?36-50 High Positive ? >50 Cardiolipin IgM <11 <=10 MPL unit(s) [facility] Comment: Ranges ?MPL ----- ?----- Normal ?<11 Low Positive ? 11-20 Moderate Positive ?21-30 High Positive ? >30 Blood specimen (specimen) 05/13/2017 2:04 PM EST 05/14/2017 7:46 AM EST Narrative Resulting Agency Comment Spec In Lab Rosa Maria Hills MD IMMUNOLOGY ORDERAB LES [facility] [place] [address] * (ABNORMAL) Lupus Anticoagulant (05/13/2017 2:04 PM EST) Lupus Anticoag Pos(A) Neg [facility] Comment:110.0-84.9 = 25 Blood specimen (specimen) 05/13/2017 2:04 PM EST 05/13/2017 2:10 PM EST Narrative Resulting Agency Comment Spec In Lab Rosa Maria Hills MD HEMATOLOGY ORDERAB LES [facility] [place] [address] documented in this encounter Visit Diagnoses Diagnosis Anticoagulated by anticoagulation treatment Encounter for long-term (current) use of anticoagulants Antiphospholipid antibody syndrome Primary hypercoagulable state documented in this encounter Care Teams Medical Care Administrator Relationship Specialty Start Date End Date Mckenna Genao, [employer] OPERATOR [address] [place] [address] PCP - General Family Medicine 05/07/17 08/08/21 documented as of this encounter
--- OUTSIDE RECORDS SUMMARY | 2023-11-04 15:21 | XMS_ITS | Encounter Summary ---
[place] [address] Care Team Providers Care Sericulturist Name Role Phone Alaina Peralta APRN Primary Care Provider [phone] Reason for Visit * Reason Onset Date Comments Medication Refill 11/04/2013 Encounter Details Date Type Department Care Team (Late st Contact Info) Description 11/04/2013 Refill [place] [id number] Scar Lozada MD [address] [place] [address] [place] [address] Social History Tobacco Use Types Packs/Day Years [...] Telephone Encounter - Juventino Grajeda RN - 11/07/2013 9:03 AM EDTFrom: Cecilia Dumont To: Scar Lozada MD Sent: 11/04/2013 9:11 PM EDT Subject: Medication Renewal Request Original authorizing provider: SCAR LOZADA MD Cecilia Dumont would like a refill of the following medications: hydroxychloroquine (PLAQUENIL) 200 mg tablet [SCAR LOZADA MD] Preferred pharmacy: [address] Comment: documented in this encounter Plan of Treatment Upcoming Encounters Date Type Department Care Team (Late st Contact Info) Description 11/11/2023 3:00 AM EDT [place] [address] documented as of this encounter Visit Diagnoses Not on filedocumented in this encounter Care Teams Sericulturist Relationship Specialty Start Date End Date Alaina Peralta APRN PCP - General 01/20/13 06/01/16 documented as of this encounter
--- OUTSIDE RECORDS SUMMARY | 2023-11-04 15:21 | XMS_ITS | Encounter Summary ---
[place] [address] Care Team Providers Care Solderer Torch Name Role Phone Mckenna Genao APRN Primary Care Provider [phone] Reason for Visit * Reason Comments Shortness of Breath * Consultation (Routine) - Closed Specialty Diagnoses / Procedures Referred By Edgar warren Referred To Contact Cardiac Surgery Diagnoses Aortic Insufficiency Procedures Evaluate for surgery Yogi Alegre MD [address] [place] [id number] Koko Robles MD [facility] [place] [address] Referral ID Status Reason Start Date Expiration Date Visits Re quested Visits Authorized [id number] Closed 05/01/2017 05/01/2018 1 1 Encounter Details Date Type Department Care Team (Late st Contact Info) Description 05/07/2017 9:40 AM EST Office Visit [place] [address] Koko Robles MD [facility] [place] [address] Aortic valve regurgitation, nonrheumatic Social History Tobacco Use Types Packs/Day Years [...] Sign Reading Time Taken Comments Blood Pressure 134/46 05/07/2017 9:47 AM EST Pulse 70 05/07/2017 9:47 AM EST Temperature - - Respiratory Rate - - Oxygen Saturation 94% 05/07/2017 9:47 AM EST Inhaled Oxygen Concentration - - Weight 73 kg (161 lb) 05/07/2017 9:47 AM EST Height 162.6 cm (5' 4) 05/07/2017 9:47 AM EST Body Mass Index 27.64 05/07/2017 9:47 AM EST documented in this encounter Progress Notes * Koko Robles MD - 05/07/2017 9:40 AM EST To: Mckenna Alegre MD, [facility] Re: Cecilia Dumont ( 1970) Dear King, Thank you for the opportunity to meet today with Mrs. Dumont her daughter and to discuss issues surrounding the management of her symptomatic aortic regurgitation. Although well-known to youplease allow me to reiterate the pertinent issues for the purpose of the chart. Mrs. Cecilia Dumont is a 47-year-old woman with known bicuspid valve disease. She recently has begun to experience symptoms of exertional dyspnea and chest heaviness. Repeat echocardiogram which had an opportunity to review shows severe aortic regurgitation with a dilated LV, her LV and diastolic dimension is 6.3 cm her end-systolic dimension is 4.7 cm. Her systolic function is mildly depressed at 55%. 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 The CVA involved the right side of her body she has had a nearly complete recovery. She has no known renal or hepatic insufficiency, she does have a diagnosis of SLE which appears to mostly manifest as joint disease. She is undergone previous bilateral knee replacementswithout complications. She does have the antiphospholipid antibody diagnosis for which she has beenmaintained on Coumadin. She has not been seen by hematology or rheumatology in some time. She did undergo workup for chest pain syndrome and dyspnea in 1999 1314 which included a cardiac cath that showed no obstructive coronary disease, there is a question of constrictive pericarditis but a subsequent MRI showed no evidence, and no evidence on recent TTE. On examination she is a blood pressure 135/50 her heart rates in the 70s and sinus by palpation herHEENT examination is remarkable for murmurs transmitted to the carotids. There are no cervical masses. There is a 2/6 systolic murmur and a 3/6 blowing holosystolic murmur at the right upper and left lower parasternal border reflective respectively. Her chest is clear to auscultation. Her abdomen is benign. Her lower extremities are free of obvious edema. In summary, Mrs. Dumont has severe symptomatic aortic regurgitation. I think she would benefit from aortic valve replacement therapy. Given the lupus anticoagulant the various prosthetic options were reviewed, but she has elected and I would agree for mechanical prosthesis. We are going to ask thehematology team to see her to help guide us with regards to her anticoagulation around the time of surgery including time on bypass. Accordingly, she has a appointment with Dr. Dyer of hematologythis Thursday. Once we have her input we will formulate a final plan but this is likely going to include a hospitalization being bridged on heparin followed by cath followed by her operation. Once afinal plan is in place we will communicate with you. In the interim thanks very much for allowing us to participate in her care and should there be anything further that I can provide please do not hesitate to contact my office. Best personal regards, Koko Robles MD [phone] In aggregate 55 minutes were spent evaluating this patient, reviewing all images, counseling/examining the patient and communicating with other involved physicians. documented in this encounter Plan of Treatment Upcoming Encounters Date Type Department Care Team (Late st Contact Info) Description 11/11/2023 3:00 AM EDT Anti-Coag Telephone Visit [facility] Centralized [place] [address] documented as of this encounter Visit Diagnoses Diagnosis Aortic valve regurgitation, nonrheumatic Aortic valve disorders documented in this encounter Care Teams Solderer Torch Relationship Specialty Start Date End Date Mckenna Genao, CONTACT CENTER ASSISTANT [address] [place] [address] PCP - General Family Medicine 05/07/17 08/08/21 documented as of this encounter
--- OUTSIDE RECORDS SUMMARY | 2023-11-04 15:21 | XMS_ITS | Encounter Summary ---
[place] [address] Care Team Providers Care Senior Applications Architect Name Role Phone TerranceMckenna hines APRN Primary Care Provider [phone] Reason for Visit * Auth/Cert Specialty Diagnoses / Procedures Referred By Edgar t Referred To Contact Diagnoses Chest pain WORSENING CHEST PAIN Referral ID Status Reason Start Date Expiration Date Visits Re quested Visits Authorized [id number] 1 1 Encounter Details Date Type Department Care Team (Late st Contact Info) Description 05/20/2017 8:30 AM EST - 05/20/2017 9:30 AM EST [place] [id number] Phuong Ortiz MD [facility] [place] [address] CARDIAC CATHETERIZATION Social History Tobacco Use Types Packs/Day Years [...] Patient Age: 47 y.o. Birthdate: 1970 Language: Cape Verdean Race: White Ethnicity: Not nor Admit Date: 05/17/2017 Discharge Date: 05/29/17 Attending Physician: Kuldeep Conner MD Follow-up Recommendations for Providers: Please continue routine management of cardiovascular risk factors including blood pressure, lipids,glucose, etc. Please note any changes to medications. Patient to follow-up with PCP, Mckenna Genao APRN, in 1-2 weeks. Patient to follow-up with Metal Stamping Machine Operator, Dr. Yogi Alegre, in two weeks. Patient to follow-up with Cardiac Surgery, Dr. Kuldeep Conner, in ~ 4 weeks with CXR, EKG, and Echo. Patient to follow up with Urology, Dr Shiva Payne, as an outpatient in 1-2 weeks. Pt to follow-up with Hematology, Dr. Hills, as an outpatient in 1-2 weeks. Inpatient Provider Contact Information: [facility] Section of Cardiac Surgery [facility] [place] [address] FAX [phone] Discharge Diagnoses (Hospital Problems) Primary Diagnoses: Secondary [...] 41.32) performed by Kuldeep Conner MD at [facility] OR ??? TUBAL LIGATION ??? TUBAL [...] Hospital Course: Noah Dumont was admitted to [facility] on 05/17/2017 via the Cardiology Service. [...] Wt 70.6 kg (155 lb 10.3 oz) DmH376% BMI 26.72 kg/m2 Patient Vitals for the [...] not take or discontinue any prescription or vent-puy-otjzxzw medications without asking your doctor or pharmacist [...] Kuldeep Conner and/or the Cardiac Surgery Physician Nut Blanker Operator Team may be reached at . Antibiotic prophylaxis: You will need to take antibiotics prior to many invasive tests and treatments, such as dental cleaning, which should be done every 6 months. Your primary care physician or your dentist can prescribe this medication. Please refer to the card with the [place] Heart Association Guidelines for more information. You have been provided with 3 copies of this card. Keep one for your self. Give one to your primary care physician and one to your dentist. Please refer to the [place] Heart [employer] Guidelines for more information. Good [...] after your return appointment with Dr. Kuldeep Madirgal. You may use a [place] Track or treadmill but avoid any pulling [...] friends, go to a movie, go to gnosticism, etc. Heavy activities: No hunting, skiing, jogging, [...] should resume a low fat, low cholesterol, [place] Heart Association Diet. Driving: No driving until [...] in 1-2 weeks. Patient to follow-up with Metal Stamping Machine Operator, Dr. Yogi Alegre, in two weeks. Patient to follow-up with Cardiac Surgery, Dr. Kuldeep Conner, in ~ 4 weeks with CXR, EKG, and Echo. Patient to follow up with Urology, Dr Shiva Payne, as an outpatient in 1-2 weeks. Pt to follow-up with Hematology, Dr. Hills, as an outpatient in 1-2 weeks. Cardiac Rehabilitation: Noah Dinesh Dumont was seen today regarding participation in the outpatient Phase 2 Cardiac Rehabilitation at [facility] . The patient agrees to a referral to this program. The referral will be sent at discharge and the patient should be contacted by the Program within 1- 2 weeks from discharge. Future Appointments and Orders Future Orders Complete By Expires Echocardiogram Transthoracic(Leb) [AWV620 Custom] 05/30/2017 05/30/2018 Process Instructions: If the Echocardiogram is to be PERFORMED in a location other than [place]--STOP and order CLA264, Echocardiogram South/External. Scheduling Instructions: Questions: Is a Bubble Study requested?: Does the patient have Congenital Heart Disease?: Does patient require sedation?: GA rationale: XR Chest PA & Lateral (Generic) [47710 42574 Custom] 05/30/2017 11/29/2017 Process Instructions: Scheduling Instructions: Questions: Where will study be performed?: [place] [facility] Portable exam?: Reason for exam and clinical history: s/p avr Other pertinent information: Stat read required?: Date of injury if applicable: Requested Time: Is the patient ?: No CT Urogram [BVY7685 Custom] 06/23/2017 12/23/2017 Process Instructions: Scheduling Instructions: Questions: Where will study be performed?: [place] [facility] Portable exam?: Reason for exam and clinical history: gross hematuria, three phase imaging please Other pertinent information: Is the patient ?: No Stat read required?: Does patient require sedation?: GA rationale: Date of injury if applicable: Requested Time: EKG 12 Lead [EKG1 Custom] As directed Process Instructions: Scheduling Instructions: Questions: Which location will this be performed?: [place] Is a rhythm strip needed?: No If EKG Reason is Pre-op Evaluation, indicate diagnosis for surgery.: Referral to Cardiac Rehab [MDH193 Custom] As directed Process Instructions: If no progress note charted, please enter Clinical details in comments. Scheduling Instructions: Questions: My question or request is: AVR- Cardiac rehab at [facility] Referral to Home Health - at DISCHARGE [YOW4061 CPT(R)] As directed Process Instructions: Scheduling Instructions: [...] Nurse Practitioner, Clinical Nurse Specialist or Physician Nut Blanker Operator who is working directly with them, had [...] home health services. Patient Location: [address] [facility] [address] (home) Telephone Information: HOME Health Agency: [facility] PHONE: [phone] FAX: [phone] RN: Assess cardiopulmonary assessment, vital signs, medication [...] from this patient's PCP: Mckenna Genao APRN [address] [place] [address] [place] [address] Questions: Agency name and contact information: [facility]/VNA Patient location post discharge: home What services are requested: Registered Nurse Physical Therapy Start date: Responsible MD post discharge contact info: Arrangements for VNA/home care: As above. VN RN OR PCP TO PLEASE REMOVE CHEST TUBE SUTURES ON OR AFTER Signed: JANET VILLARRAEL [facility] Section of Cardiac Surgery [facility] [place] [address] FAX [phone] Date: 05/30/2017 CC: SUELLEN [place] J [address] [place] [address] [facility] [place] [address] documented in this encounter Discharge Instructions * [...] not take or discontinue any prescription or bmaa-cal-swojgyo medications without asking your doctor or pharmacist [...] Kuldeep Conner and/or the Cardiac Surgery Physician Nut Blanker Operator Team may be reached at . Antibiotic prophylaxis: You will need to take antibiotics prior to many invasive tests and treatments, such as dental cleaning, which should be done every 6 months. Your primary care physician or your dentist can prescribe this medication. Please refer to the card with the [place] Heart Association Guidelines for more information. You have been provided with 3 copies of this card. Keep one for your self. Give one to your primary care physician and one to your dentist. Please refer to the [place] Heart Association Guidelines for more information. Good [...] Dr. Kuldeep Madrigal. You may use a [place] Track or treadmill but avoid any pulling [...] friends, go to a movie, go to gnosticism, etc. Heavy activities: No hunting, skiing, jogging, [...] should resume a low fat, low cholesterol, [place] Heart Association Diet. Driving: No driving until [...] in 1-2 weeks. Patient to follow-up with Metal Stamping Machine Operator, Dr. Yogi Alegre, in two weeks. Patient [...] the outpatient Phase 2 Cardiac Rehabilitation at [facility] . The patient agrees to a [...] Pt had low BP for 1900 Vitals. MD consulted. Will continue to monitor. 2200 lopressor changed to 37.5. If SBP is 90 or below- will hold. * Harvey Bahena RN - 05/29/2017 6:37 PM EST Pt c/o upper left arm pain. IV patent. hog grader will evaluate. * Anne-Marie Renner DT - [...] her sugar and salt intake at home. Student Services Coordinator informed pt she can continue to order her meals here on how she would eat at home on current diet. Pt agreeable. She reported afair appetite without difficulty chewing or swallowing. She had just started experiencing nausea (typewriter assembly and parts inspector informed nursing). Pt stated she consumed apple [...] Encounter Note Patient Name: Noah Dumont : [id number] MR#: [id number] Admit Date: 05/17/2017 10:57 PM Hospital Day [...] soon Intervention and Outcome: Supportive Presence Follow-up: [facility] Bilingual Counter Sales Retail is available to Ms. Dumont during this admission. Time in Direct Care: 10 minutes Oxana Casiano 05/29/2017 * Chloé Arguello PA - 05/29/2017 9:29 AM EST Cardiac Surgery Progress Note: ID: [id number] Noah Dumont is a 47yo female s/p [...] Gas) No results found for: PHART, PO2ART, FDT2GWR Assessment/Plan: POD #4 s/p mechanical AVR. Pmhx [...] Attending Surgeon on rounds. Signed: JANET Nagy [facility] Section of Cardiac Surgery Date: 05/29/2017 * Rosa Maria Hills MD - 05/28/2017 3:06 PM EST Images from the original note were not included. [facility] [place] [address] THROMBOSIS FOLLOW UP DATE OF VISIT 05/28/2017 [...] 05/27/2017 15:30 05/27/2017 21:32 05/28/2017 04:21 Heparin [id number] Latest Units: IU/mL 0.55 0.46 0.34 0.42 [...] call with questions. Rosa Maria Hills MD Sports Doctor, [facility] * Teetee Helm Bere - 05/28/2017 1:41 PM EST Bilingual Counter Sales Retail Encounter Note Patient Name: Noah Dumont : [id number] MR#: [id number] Admit Date: 05/17/2017 10:57 PM Hospital Day 10 days Narrative: Noah was sitting up in a chair by the window when I visited. She had cardiac surgery on Thursday (05/25), after a few days delay. She told me about her surgery and plans for transitioning home. She said her gnosticism community will provide meals and her son, Franky, will come and stay with her a few days so that her , Cale, can work. Having Cale's continued income is important, she said. Cale works at [employer] in [place] [facility] where they live. Noah worries about their finances. Assessment: Noah looked tired and said she feels tired, but has walked the loop a few times. She lives on the 3rd floor of an apartment building and is talking about how she will deal with those stairs when she returns home. She is confident of the assistance she'll receive from her gnosticism ([facility]) and friends so she doesn't seem concerned about meals and assistance. Although Cale does not attend gnosticism, Noah is an active member and relies on her fiorella for support. Intervention and Outcome: Conversation, listening Follow-up: If Noah is still here on Thursday, I will try to visit. Time in Direct Care: 30 min Teetee Helm 05/28/2017 * Melissa Aviles RN - 05/28/2017 11:28 AM EST OFFICE OF CARE MANAGEMENT CHICKEN AND FISH CLEANER PROGRESS NOTE CM-RN met with patient at bedside to discuss the need for VNA services at discharge. Patient will need RN & PT (for sternal precautions). Patient states she has good support at home from her , Cale, and her two adult children. She is also involved in her gnosticism and has much support fromher gnosticism community. The patient has been provided a list of Home Health Agencies which serve their preferred geographicarea. A letter describing our affiliations was reviewed with them and they were educated about their right to choose where referrals are placed. Patient requests referral to: [facility]. PHONE: [phone] FAX: [phone] Expected date of discharge: possible d/c to home on Thursday Referral routed to the Food Production Supervisor for matching with agency/vendor and to provide any required information. Plan: CM will continue to follow for coordination of care and to facilitate discharge planning. GEORGIA Aviles RN, BS, pager [phone] * Chloé Arguello PA - 05/28/2017 9:14 AM EST Cardiac Surgery Progress Note: ID: [id number] Noah Dumont is a 47yo female s/p [...] Gas) No results found for: PHART, PO2ART, [id number] Assessment/Plan: POD #3 s/p mechanical AVR. Pmhx [...] Attending Surgeon on rounds. Signed: JANET Nagy [facility] Section of Cardiac Surgery Date: 05/28/2017 [...] shift. After ambulating this evening pt had HI interval changes, possible accelerated junct?, and atrial bigem. Pt asymptomatic, remains hemodynamically stable, team aware, will continue to monitor. Report given to PAIGE Chowdhury. Pt transferred to ICCU per order. * Verónica Watters APRN - 05/27/2017 8:11 AM EST Cardiac Surgery Progress Note: ID: [id number] Noah Dumont is a 47yo female s/p [...] Gas) No results found for: PHART, PO2ART, VYR8XXL Assessment/Plan: POD #2 s/p mechanical AVR. Will [...] Surgeon on rounds. Signed: Verónica Watters APRN [facility] Section of Cardiac Surgery Date: 05/27/2017 * Rena Alarcon - 05/26/2017 10:56 AM EST Bilingual Counter Sales Retail Encounter Note Patient Name: Noah Dumont : [id number] MR#: [id number] Admit Date: 05/17/2017 10:57 PM Hospital Day 9 days Narrative: Visited on rounds, Noah sitting up in her chair, welcoming a visit. Assessment: She reports preoccupation with pain in the aftermath of surgery yesterday, difficulty sleeping as aresult. She indicates a supportive family, a who will help care for her at home and a Episcopal gnosticism community that offers to cook for her after her discharge. She finds comfort in the many people who have signed her heart pillow. Intervention and Outcome: Presence and reflection appreciated. Follow-up: Yes, after her move to a lower level of care/ Time in Direct Care: 20 mins. Rena Alarcon 05/26/2017 * Verónica Watters Patrice, LOCKSTITCH SLEEVE MAKER - 05/26/2017 9:11 AM EST Cardiac Surgery Progress Note: ID: [id number] Noah Dumont is a 47yo female s/p [...] Surgeon on rounds. Signed: Verónica Watters APRN [facility] Section of Cardiac Surgery Date: 05/26/2017 [...] Progress Note Patient Name: Noah Dumont Service: PATTERN CARRIER / PA Responsible Attending: Bienvenido Wong MD [...] %, [JUN Hold] acetaminophen, [JUN Hold] LORazepam, [MAR Hold] morphine Physical Exam: Vital Signs: Last [...] in the last 168 hours. Recent Labs 05/25/178 05/24/17 0358 05/23/17 0050 CALCIUM 9.0 9.4 [...] See remainder of report for additional findings [facility], coronary angiography 05/20/17: Conclusions: * Normal [...] Discussed with Bienvenido Wong MD Janette Stender, LOCKSTITCH SLEEVE MAKER 05/25/2017 Cardiology Attending Note I interviewed and [...] Progress Note Patient Name: Noah Dumont Service: PATTERN CARRIER / PA Responsible Attending: Bienvenido Wong MD [...] issues, continues to have gross hematuria. Dr Ubaldo from cardiac surgery team in. AVR planned [...] and vitals reviewed. Lab Comments: Recent Labs 05/24/178 05/23/17 0050 05/22/17 0546 WBC 6.4 7.5 [...] See remainder of report for additional findings [facility], coronary angiography 05/20/17: Conclusions: * Normal [...] Patient went to the ED at an [facility] due to chest discomfort and progressive shortness of breath and was transferred here to [facility] for pre-op management. LHC completed and showed [...] Progress Note Patient Name: Noah Dumont Service: PATTERN CARRIER / PA Responsible Attending: Bienvenido Wong MD [...] setting of severe aortic regurg Admitted to [facility] Enzymes cycled- normal Cardiac cath - normal [...] with PCW 3, given IV fluids in wetlands conservation laborer 7. Severe aortic regurg Echo (results above) [...] Progress Note Patient Name: Noah Dumont Service: PATTERN CARRIER / PA Responsible Attending: Bienvenido Wong MD [...] night, resolved this morning. No bowel movement. [place] crampy. No unusual food consumption. Pepto-Bismol given. [...] with PCW 3, given IV fluids in wetlands conservation laborer 7. Severe aortic regurg Echo (results above) [...] Encounter Note Patient Name: Noah Dumont : [id number] MR#: [id number] Admit Date: 05/17/2017 10:57 PM Hospital Day 4 days Narrative: Noah's surgery has been postponed until Thursday (05/25). She had a cardiac cath through her arm yesterday and told me about that experience which was painful for her. She has been here about week. Noah is from [facility] [facility] and her , Cale, has been able to visit a few times although finding transportation can be difficult. Cale works at [employer] in [place] [place] and Noah is concerned about him missing too much work and not earning money while he is here and not working. She has support fromher parents, in [facility] and a sister in [place] with whom she talks on the phone. She didn't mention if her children, a son and daughter, have visited. They are in their late teens, early 20s. 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 Her boss there, Angelito, [...] support by Angelito and his ministry in [place] [place]. She is soothing herself with writing in a journal, word searches and tv. She enjoyed a visit from the art therapy volunteer. Intervention and Outcome: Supportive listening, assurance of support Follow-up: I will visit Noah on Thursday if she is allowed visitors after her surgery. Time in Direct Care: Teetee Helm 05/21/2017 * Jeff Hernadez MD - 05/21/2017 8:16 AM EST Images from the original note were not included. Inpatient Cardiology Progress Note Patient Name: Noah Dumont Service: PATTERN CARRIER / PA Responsible Attending: Jeff Hernadez MD [...] problems to display. JEFF HERNADEZ MD Pager [phone] * Vikki Barron PA - 05/21/2017 7:23 AM EST Images from the original note were not included. Inpatient Cardiology Progress Note Patient Name: Noah Dumont Service: PATTERN CARRIER / PA Responsible Attending: Jeff Hernadez MD [...] 60%, no RWMA Cardiac catheterization 07/16/04: RAP-1 PAP-18//10, PCWP- 2, [...] PCW 3, given IV fluids yesterday in wetlands conservation laborer 7. Severe aortic regurg Echo (results above) On ADRIA inhibitor FULL CODE This patient was discussed with Jeff Hernadez MD. NEHEMIAH De SouzaC 05/21/2017 * Phuong Ortiz MD - 05/20/2017 [...] Progress Note Patient Name: Noah Dumont Service: PATTERN CARRIER / PA Responsible Attending: Jeff Hernadez MD [...] affect. Vitals reviewed. Lab Comments: Recent Labs 05/20/1751205/19/1735 05/18/1759 WBC 6.0 5.6 4.7 HGB 14.1 14.8 12.5 HCT 40.3 41.8 35.6* PLATELET 180 165 166 Recent Labs 05/20/17512 INR 1.7* Recent Labs 05/20/1751205/19/17 0535 05/18/17 0659 NA 141 143 142 [...] with Jeff Hernadez MD. Vikki Barron PA-C 05/20/2017 CARDIOLOGY ATTENDING NOTE Patient: Noah Dumont [...] problems to display. JEFF HERNADEZ MD Pager [phone] * Jeff Hernadez MD - 05/19/2017 8:28 [...] he is now seeing Dr Alegre at [facility], who now presents with hemodynamic and symptomatic [...] minimumof two midnights or is on the [facility] inpatient only procedure list (status C) due to: chest pain, hemodynamic significant AI needing urgent evaluation. JEFF HERNADEZ MD Pager [phone] * Jeff Hernadez MD - 05/19/2017 7:37 AM EST Images from the original note were not included. Inpatient Cardiology Progress Note Patient Name: Noah Dumont Service: PATTERN CARRIER / PA Responsible Attending: Jeff Hernadez MD [...] onset symptoms SOB when walking [place] around [facility] -cath delayed due to prolonged INR [...] Nurse Practitioner-Department of Cardiology Kathleen. Ann. Pager [phone] Phone number: [phone] Fax number [phone] GI prophylaxis On famotidine DVT prophylaxis INR [...] problems to display. JEFF HERNADEZ MD Pager [phone] * Teetee Helm - 05/18/2017 5:10 PM EST Bilingual Counter Sales Retail Encounter Note Patient Name: Noah Dumont : [id number] MR#: [id number] Admit Date: 05/17/2017 10:57 PM Hospital Day 1 day Narrative: Noah is from [facility]. She has visited me the straightener hand office at [facility] when she is there for blood draws and other appointments. She stopped by recently to tell meabospencer the scheduled surgeries for her here and asked me to visit her here.Her was visiting,but she sent him home. 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, who now presents with hemodynamic and symptomatic [...] 60%, no RWMA Cardiac catheterization 07/16/04: RAP-1 PAP-18//10, PCWP- 2, [...] minimumof two midnights or is on the [facility] inpatient only procedure list (status C) due to: chest pain, hemodynamic significant AI needing urgent evaluation. JEFF HERNADEZ MD Pager [phone] * Melody Collins LOCKSTITCH SLEEVE MAKER - 05/18/2017 7:06 AM EST Images from the original note were not included. Inpatient Cardiology Progress Note Patient Name: Noah Dumont Service: PATTERN CARRIER / PA Responsible Attending: Jeff Hernadez MD [...] onset symptoms SOB when walking [place] around [facility] Review of Systems: Review of Systems [...] mood and affect. Lab Comments: Recent Labs 05/18/17 0036 05/13/17 1404 WBC 4.5 5.2 HGB 12.8 13.6 HCT 36.5 37.7 PLATELET 175 198 Recent Labs 05/18/17 0036 INR 2.8* Recent Labs 05/18/17 0036 05/13/17 1404 NA 144 143 K 3.9 4.0 CL 105 102 CO2 27 28 BUN 12 14 CREATININE 0.80 0.78 Recent Labs 05/18/17 0036 AST 15 ALT [...] APRN Nurse Practitioner-Department of Cardiology Kathleen. Ann. [email or web address] Pager [phone] Phone number: [phone] Fax number [phone] GI prophylaxis On famotidine DVT prophylaxis INR [...] night, persisted until yesterday and went to [facility] ER yesterday afternoon.She has been having [...] afternoon and she decided to go to [facility] ER with the help of her . In the ER her troponins were negative and no acute ECG changes, she was anxious and her symptoms relieved after a dose of morphine and ativan. After discussing with Dr Robles and cardiology team she got transferred to [facility] for further evaluation and to expedite her [...] the stool . Labs and Imaging from [facility]; Vitals on arrival;Bp; 137/44; Pr; 87; [...] (systemic lupus erythematosus) Previous Diagnostics: Echo from [facility];04/30/2017. LVEF; 50-53%(Biplane) Ao Root; 3.48cm LVID; [...] uniform and high volume, no calf tenderness Neuro/APARTMENT RENTAL AGENT: AAO x 3, No evident deficits Skin/Integumentary: No rash Diagnostics: EKG; Dynamic changes compared to the ecg from [facility]; Sinus rhythm, Q waves in inferior leads, [...] symptomatic AR and chest pain transferred to [facility] for further evaluation and follow up. 1; [...] abnormality. Ecg has some changes compared to [facility] ,but doesn't meet the criteria for [...] night, persisted until yesterday and went to [facility] ER yesterday afternoon.She has been having [...] afternoon and she decided to go to [facility] ER with the help of her . In the ER her troponins were negative and no acute ECG changes, she was anxious and her symptoms relieved after a dose of morphine and ativan. After discussing with Dr Robles and cardiology team she got transferred to [facility] for further evaluation and to expedite her [...] the stool . Labs and Imaging from [facility]; Vitals on arrival;Bp; 137/44; Pr; 87; [...] (systemic lupus erythematosus) Previous Diagnostics: Echo from [facility];04/30/2017. LVEF; 50-53%(Biplane) Ao Root; 3.48cm LVID; [...] uniform and high volume, no calf tenderness Neuro/APARTMENT RENTAL AGENT: AAO x 3, No evident deficits Skin/Integumentary: No rash Diagnostics: EKG; Dynamic changes compared to the ecg from [facility]; Sinus rhythm, Q waves in inferior leads, [...] symptomatic AR and chest pain transferred to [facility] for further evaluation and follow up. 1; [...] abnormality. Ecg has some changes compared to [facility] ,but doesn't meet the criteria for [...] Individualization Patient Specific Preferences -- call me Zamora -- Mutuality/Individual Preferences What Anxieties, Fears or [...] Appropriate) 05/25/17 0258 Interdisciplinary Rounds/Family Conf Participants protective services case worker;family;advanced practice nurse;nursing;occupational therapy;patient;physician Problem: Cardiac Surgery (Adult) [...] * Plan of Care - Ailin Oliva FOOD TECHNICIAN - 05/29/2017 1:25 PM EST Problem: Patient [...] slow gait speed. Ascended/descended 12 stairs with apuu-wvwu-vzoy technique with no LOB or complaint of [...] assist for bed mobility until returning to [facility]. Please see the Rehab Evaluation Summaries report [...] home with home health ALEX Oneil Pager: [phone] Inpatient Physical Therapy SPTA observed while treating patient and POC and Rx discussed prior to Rx. Ailin Oliva PTA Pager: [phone] Problem: Acute Rehab Services Goal & Intervention Plan Goal: Bed Mobility Goal Stand Alone Therapy Goal Outcome: Outcome (s) achieved Date Met: 05/29/17 05/27/17 1508 05/29/17 1409 Bed Mobility Goal Bed Mobility Goal, Date Established 05/27/17 -- Bed Mobility Goal, Time to Achieve 5 days -- Bed Mobility Goal, Activity Type supine to sit/sit to supine -- Bed Mobility Goal, Garland Level independent -- Bed Mobility Goal, Outcome Achieved -- goal met Goal: Gait Training Goal Stand Alone Therapy Goal Outcome: Outcome (s) achieved Date Met: 05/29/17 05/27/17 1508 05/29/17 1409 Gait Training Goal Gait Training Goal, Date Established 05/27/17 -- Gait Training Goal, Time to Achieve 5 days -- Gait Training Goal, Garland Level supervision required -- Gait Training Goal, [...] days -- Transfer Training Goal, Activity Type znm-xl-njzcj/iyvgh-zn-rvv;riv-xw-hdehw/gmsns-ur-qny -- Transfer Train Goal, Garland Level supervision required -- Transfer Training Goal, Assist Device (LRD) -- Transfer Training Goal, Outcome -- goal met * Consult Note - Stephanie Chandra RN - 05/29/2017 10:19 AM EST [facility] CARDIAC REHABILITATION Noah Dumont was seen today regarding participation in the outpatient Phase 2 Cardiac Rehabilitation at [facility] . The patient agrees to a [...] Handling Outcome: Ongoing (Interventions Implemented as Appropriate) 05/27/17 2119 05/28/17 1510 05/28/172025 Daily Care Interventions Self-Care [...] Appropriate) 05/25/17 0258 Interdisciplinary Rounds/Family Conf Participants protective services case worker;family;advanced practice nurse;nursing;occupational therapy;patient;physician Problem: Cardiac Surgery (Adult) [...] Individualization Patient Specific Preferences -- call me Zamora -- Mutuality/Individual Preferences What Anxieties, Fears or [...] Appropriate) 05/25/17 0258 Interdisciplinary Rounds/Family Conf Participants protective services case worker;family;advanced practice nurse;nursing;occupational therapy;patient;physician Problem: Cardiac Surgery (Adult) [...] Outcome: Ongoing (Interventions Implemented as Appropriate) 05/28/17 011 Skin Integrity Impairment, Risk/Actual Skin Integrity Impairment, Risk/Actual: Related Risk Factors surgery/procedure Goal: Skin Integrity/Wound Healing Patient will demonstrate the desired outcomes by discharge/transition of care. Outcome: Ongoing (Interventions Implemented as Appropriate) 05/28/17109 Skin Integrity Impairment, Risk/Actual (Adult) Skin Integrity/Wound Healing making progress toward outcome * Plan of Care - Ailin Oliva, FOOD TECHNICIAN - 05/28/2017 9:35 AM EST Problem: Patient [...] Disposition: home with assist ALEX Oneil Pager: [phone] Inpatient Physical Therapy SPTA observed while treating patient and POC and Rx discussed prior to Rx. Ailin Oliva PTA Pager: [phone] Problem: Acute Rehab Services Goal & Intervention Plan Goal: Bed Mobility Goal Stand Alone Therapy Goal Outcome: Ongoing (Interventions Implemented as Appropriate) 05/27/17 1508 05/28/17 1013 Bed Mobility Goal Bed Mobility Goal, Date Established 05/27/17 -- Bed Mobility Goal, Time to Achieve 5 days -- Bed Mobility Goal, Activity Type supine to sit/sit to supine -- Bed Mobility Goal, Garland Level independent -- Bed Mobility Goal, Outcome Achieved -- goal ongoing Goal: Gait Training Goal Stand Alone Therapy Goal Outcome: Ongoing (Interventions Implemented as Appropriate) 05/27/17 1508 Gait Training Goal Gait Training Goal, Date Established 05/27/17 Gait Training Goal, Time to Achieve 5 days Gait Training Goal, Garland Level supervision required Gait Training Goal, Assist [...] 5 days Transfer Training Goal, Activity Type xad-wl-qiyea/vcdah-mz-ibj;zbq-ps-gfbiy/tmayi-mt-wac Transfer Train Goal, Garland Level supervision required Transfer Training Goal, Assist Device (LRD) * Plan of Care - Elidia Meza RN - 05/28/2017 1:23 AM EST Problem: Patient Care Overview Goal: Plan of Care Review Outcome: Ongoing (Interventions Implemented as Appropriate) 05/27/17211805/28/17109 Plan of Care Review Progress -- progress [...] Mutuality Outcome: Ongoing (Interventions Implemented as Appropriate) 05/28/17109 Mutuality/Individual Preferences What Anxieties, Fears or Concerns [...] Outcome: Ongoing (Interventions Implemented as Appropriate) 05/28/17 011 Cardiac Surgery Problems Assessed (Cardiac Surgery) all Problems Present (Cardiac Surgery) pain Problem: Skin Integrity Impairment, Risk/Actual (Adult) Goal: Identify Related Risk Factors and Signs and Symptoms Related risk factors and signs and symptoms are identified upon initiation of Human Response Clinical Practice Guideline (CPG) Outcome: Ongoing (Interventions Implemented as Appropriate) 05/28/17 011 Skin Integrity Impairment, Risk/Actual Skin Integrity Impairment, Risk/Actual: Related Risk Factors surgery/procedure Goal: Skin Integrity/Wound Healing Patient will demonstrate the desired outcomes by discharge/transition of care. Outcome: Ongoing (Interventions Implemented as Appropriate) 05/28/17 011 Skin Integrity Impairment, Risk/Actual (Adult) Skin Integrity/Wound Healing making progress toward outcome * Plan of Care - Maribel Mary, PT - 05/27/2017 3:15 PM EST Problem: Patient Care Overview Goal: Plan of Care Review Outcome: Ongoing (Interventions Implemented as Appropriate) 05/27/17 2438 Coping/Psychosocial Plan Of Care Reviewed With patient Physical Therapy Treatment Number PT: 1 Pertinent History of Current Problem: S/p mechanical AVR. Pmhx: SLE, lupus anticoagulant, antiphospholipid syndrome, CVA age 21, HTN, HLD, hypothyroid, GERD, JAN, amenorrhea 10 years following uterine ablation Living Environment Comment: Pt lives with her in an apartment with 23 steps to enter with rail. 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 Pt works during the day but son comign to stay to assist upon d/c. Precautions/Restrictions: sternal, fall Precautions Comments: 2L O2 Vital Signs During Session: Heart Rate: 98 BP: 104/44 SpO2: 94 % O2 Flow Rate (L/min): 2 L/min O2 Device: Nasal cannula Pt seen this AM in the [facility] for evaluation. Pt is POD# 2. Pt presents with impaired cough, impairedbreathing mechanics, impaired transfers, impaired gait, new O2 requirements and requires cues for sternal precautions. Pt able to ambulate around [facility] today with 1 assist with vitals [...] home with assist MARIBEL MARY, PT Pager: [phone] Inpatient Physical Therapy 2017 PT Evaluation Code [...] Chest pain-- normal cors by cath in 2005 and 2012 R07.9 ??? Osteoporosis M81.0 ??? [...] to sit/sit to supine Bed Mobility Goal, Garland Level independent Goal: Gait Training Goal Stand Alone Therapy Goal Outcome: Ongoing (Interventions Implemented as Appropriate) 05/27/17 1508 Gait Training Goal Gait Training Goal, Date Established 05/27/17 Gait Training Goal, Time to Achieve 5 days Gait Training Goal, Garland Level supervision required Gait Training Goal, Assist [...] 5 days Transfer Training Goal, Activity Type iig-wx-gwpwo/dmxlb-ep-zxb;icp-lu-wptdk/uivjc-bk-pkx Transfer Train Goal, Garland Level supervision required Transfer Training Goal, Assist [...] Operative Note Patient Name: Noah Dumont : [id number] MR#: [id number] Case Date: 05/25/2017 Surgeon: Surgeon(s) and Role: * Kuldeep Conner MD - Primary * Carmelo Manzo PA - Physician Nut Blanker Operator Preoperative diagnosis: ai Postoperative diagnosis: ai Aortic [...] 9:38 AM EST 05/26/2017 Noah Dumont 1970 [id number] Preoperative Diagnosis: Symptomatic aortic regurgitation Postoperative Diagnosis: Symptomatic aortic regurgitation Procedure: Aortic valve replacement: Mechanical 27 mm Surgeon: Kuldeep Conner M.D. Nut Blanker Operator: Delfin LOPEZ Anesthesia: General endotracheal anesthesia Drains: [...] soft, heparin gtt maintained at 900, normal Yyay07g x2, per MD. Urine continues to be [...] Conf 05/25/17 0258 Interdisciplinary Rounds/Family Conf Participants protective services case worker;family;advanced practice nurse;nursing;occupational therapy;patient;physician * Consult Note - [...] not included. Hematology Consult Noah Dumont 1970 [id number] Consult: preop anticoagulation, requested by Cardiac Surgery [...] M.D., M.S. Hematology & Oncology Fellow Pager: [phone]*+*+*+*+*+*+*+*+*+*+*+*+*+*+*+*+*+*+*+*+*+*+*+*+*+*+*+*+*+*+*+*+*+*+*+*+*+* Thrombosis Attending Physician I have independently [...] Outcome: Ongoing (Interventions Implemented as Appropriate) 05/21/1748 05/21/172025 Plan of Care Review Progress no [...] further details. MELODY COLLINS APRN 05/18/2017 Pager [phone] * Consult Note - Kelle Glass RN [...] can place new. * Initial Assessments - Gabriel, ADRIANA Dominguez - 05/18/2017 8:01 AM EST Office of [...] night, persisted until yesterday and went to [facility] ER yesterday afternoon.She has been having [...] & Family Supports/Community Resources: parents, , friends, [employer] fellows Behavioral Health History: anxiety, depression history (returned to [place] because of weight gain) Substance Use/Abuse: Denies Other Pertinent/Service Specific Information: none Health/Prescription Coverage: Primary Insurance: MEDICARE Secondary Insurance: [place] Medicaid with spenddown Prescription Coverage: yes Preferred Pharmacy: [facility] Other: none Primary Care Provider: Mckenna Genao APRN [phone] Patient/Caregiver Goals of Treatment: 'to get feeling [...] transition of care planning. ADRIANA Espinoza Pager: [phone] documented in this encounter Plan of Treatment Upcoming Encounters Date Type Department Care Team (Late st Contact Info) Description 11/11/2023 3:00 AM EDT Anti-Coag Telephone Visit [facility] [place] [phone] Scheduled Orders Name Type Priority [...] IMPLANTABLE DEVICES SCAN 05/31/2017 12:00 AM EST ELEMENTARY SUPERVISOR SCAN 05/31/2017 12:00 AM EST ELEMENTARY SUPERVISOR SCAN 05/31/2017 12:00 AM EST POCT GLUCOSE [...] Routine 05/26/19 4:00 AM EST CARDIAC ENZYMES ([facility]) Routine 05/26/2017 4:00 AM EST CREATININE Routine [...] 2 ARTERIAL Routine 05/25/2017 11:04 AM EST PREPARE COAG FACTORS (NON-HEMOPHILIA) STAT 05/25/2017 10:15 [...] collecting system. Preliminary report signed by: MANUEL rubio 07/20/2017 4:10 PM I have personally reviewed [...] Montiel ? (Age): 1970(47y) Med Rec#: ? [id number] ?Sex: ?F ? Site Loc: ? [facility] ?Ht / Wt: ??162.56(cm)/69.8 Pt. Loc: ?Echo Lab ?BSA: ?1.75 Study Date: ?? 06/30/2017 ?Pt. Type: Outpatient Tape: ? Referring: Kuldeep Conner Referring: CHENTORYCKIDANIELJ Reading: Dereck Adams ([id number]) Outside Machinist Supervisor: Anita Guerra RDCS Diagnosis: *ICD-10-PCS Presence of [...] E-wave Vmax ?0.9 ?m/sec ? MV deceleration qzio625.8 ?msec ? MV A-wave Vmax ?0.8 ?m/sec [...] ? Pulmonic Valve/Qp:Qs ?Value ?Units (Range) ? HI end-diastolic Vma0.9 ?m/sec ? PA end-diastolic pre6.3 ?mmHg ? Wall Motion: Segment Name ?Rest ? Base-Anteroseptal ?? Normal ? Base-Anterior ? Normal ? Base-Anterolateral ??Normal ? Base-Posterolateral Normal ? Base-Inferior ? Normal ? Base-Inferoseptal ?? Normal ? Mid-Anteroseptal ?Normal ? Mid-Anterior ?Normal ? Mid-Anterolateral ?? Normal ? Mid-Posterolateral ??Normal ? Mid-Inferior ?Normal ? Mid-Inferoseptal ?Normal ? [place]-Septal ? Normal ? [place]-Anterior ? Normal ? [place]-Lateral ?Normal ? [place]-Inferior ? Normal ? [place]-Tip ?Normal ? This report has been electronically signed by: Dereck Adams MD ? 06/30/2017 14:52:10 Images reviewed and interpretation verified [facility] Cardiac Ultrasound Laboratory Procedure Note Dereck Adams MD - 06/30/2017 Procedure: Transthoracic Echocardiogram Patient: SEBASTIÁN Montiel (Age): 1970(47y) Med Rec#: [id number] Sex: F Site Loc: [facility] Ht / Wt: 162.56(cm)/69.8 Pt. Loc: Echo Lab BSA: 1.75 Study Date: 06/30/2017 Pt. Type: Outpatient Tape: Referring: Kuldeep Conner Referring: MILIND Reading: Dereck Adams ([id number]) Outside Machinist Supervisor: Anita Guerra [facility] Diagnosis: *ICD-10-PCS Presence of other heart-valve [...] MV E-wave Vmax 0.9 m/sec MV deceleration gtcg876.8 msec MV A-wave Vmax 0.8 m/sec MV [...] 25 mmHg Pulmonic Valve/Qp:Qs Value Units (Range) HI end-diastolic Vma0.9 m/sec PA end-diastolic pre6.3 mmHg Wall Motion: Segment Name Rest Base-Anteroseptal Normal Base-Anterior Normal Base-Anterolateral Normal Base-Posterolateral Normal Base-Inferior Normal Base-Inferoseptal Normal Mid-Anteroseptal Normal Mid-Anterior Normal Mid-Anterolateral Normal Mid-Posterolateral Normal Mid-Inferior Normal Mid-Inferoseptal Normal [place]-Septal Normal [place]-Anterior Normal [place]-Lateral Normal [place]-Inferior Normal [place]-Tip Normal This report has been electronically signed by: Dereck Adams MD 06/30/2017 14:52:10 Images reviewed and interpretation verified [facility] Cardiac Ultrasound Laboratory Kuldeep Conner MD ECHO [...] SCAN EXT O RDR/RSLT * SCAN DOC: ELEMENTARY SUPERVISOR (05/31/2017 12:00 AM EST) Anatomical Region Laterality Modality Other Narrative 05/31/2017 12:00 AM EST Ordered by an unspecified provider. Scanning Provider MEDIA MGR SCAN EXT O RDR/RSLT * SCAN DOC: ELEMENTARY SUPERVISOR (05/31/2017 12:00 AM EST) Anatomical Region Laterality Modality Other Narrative 05/31/2017 12:00 AM EST Ordered by an unspecified provider. Scanning Provider MEDIA MGR SCAN EXT O RDR/RSLT * POCT Glucose (05/30/2017 7:43 AM EST) POC Glucose 105 65 - 199 mg/dL [facility] Comment: Supplemental ranges: <140 mg/dL before meals <180 mg/dL all other times of the day Blood specimen (specimen) 05/30/2017 7:43 AM EST 05/30/2017 7:43 AM EST Kuldeep Conner MD POINT OF CARE TEST ORDERABLES Performing Organization Address City/State/[facility] Co de Phone Number [facility] [place] [address] * Heparin, low molecular weight assay (05/30/2017 4:00 AM EST) Heparin [id number] 0.30 IU/mL [facility] Comment: Guidelines for therapeutic unfractionated [...] APRN HEMATOLOGY ORDERAB LES Performing Organization Address City/State/[facility] Co de Phone Number [facility] [place] [address] * (ABNORMAL) Differential, Automated (05/30/2017 4:00 AM EST) Neutrophils % 68.3 % [facility] Neutr Abs (ANC) 6.22(H) 1.70 - 6.10 x10(3)/mc L [facility] Lymphocytes % 18.0 % [facility] Lymphocytes Abs 1.6 0.9 - 3.2 x10(3)/mc L [facility] Monocytes % 8.7 % [facility] Monocyte Abs 0.8 0.3 - 0.9 x10(3)/mc L [facility] Eosinophils % 4.0 % [facility] Eosinophils Abs 0.4 0.0 - 0.4 x10(3)/[facility] Basophils % 0.3 % [facility] Basophils Abs 0.0 0.0 - 0.1 x10(3)/[facility]ORY Immature Gran % 0.70 % [facility] Comment: Immature granulocytes(IG's)percentage and absolute count will include metamyelocytes, myelocytes, and promyelocytes. Blood smears from CBCs yielding IG's will be scanned manually for concordance. If this scan disagrees with the automated IG or if promyelocytes are noted, a manual differential will be performed. [place] Gran Abs 0.06(H) 0.00 - 0.04 x10(3)/[facility] Blood specimen (specimen) 05/30/2017 4:00 AM EST 05/30/2017 4:34 AM EST Narrative Resulting Agency Comment Spec In Lab Verónica Watters APRN HEMATOLOGY ORDERAB LES Performing Organization Address City/State/[facility] Co de Phone Number [facility] [place] [address] * (ABNORMAL) Hemogram (05/30/2017 4:00 AM EST) WBC 9.1 4.0 - 9.5 x10(3)/[facility] LABORATORY RBC 2.63(L) 4.00 - 5.21 x10(6)/[facility] Hemoglobin 8.8(L) 11.7 - 15.5 gm/dL [facility] Hematocrit 24.8(L) 35.7 - 45.8 % [facility] MCV 94.3 82.6 - 94.4 fL [facility] MCH 33.5(H) 27.1 - 32.0 pg [facility] MCHC 35.5(H) 31.7 - 35.0 gm/dL [facility] Platelets 166 145 - 357 x10(3)/[facility] LABORATORY RDWSD 43.8 37.0 - 46.0 fL [facility] RDWCV 12.8 11.5 - 14.1 % [facility] MPV 11.2 7.6 - 12.9 fL [facility] nRBC % Auto 0.0 % [facility] nRBC Abs Auto 0.000 0.000 - 0.000 x10(3)/mcL [facility] Blood specimen (specimen) 05/30/2017 4:00 AM EST 05/30/2017 4:34 AM EST Narrative Resulting Agency Comment Spec In Lab Verónica Watters APRN HEMATOLOGY ORDERAB LES Performing Organization Address [facility] Co de Phone Number [facility] [place] [address] * Potassium (05/30/2017 4:00 AM EST) Potassium 3.8 3.5 - 5.0 mmol/L [facility] Comment: Please note: ??Patients with [...] APRN CHEMISTRY ORDERABL ES Performing Organization Address [facility] Co de Phone Number [facility] [place] [address] * (ABNORMAL) Prothrombin Time (05/30/2017 4:00 AM EST) PT 28.8(H) 11.8 - 14.0 sec [facility] INR 2.7(H) 0.9 - 1.[address] [facility] Comment: An INR <2.0 indicates [...] APRN HEMATOLOGY ORDERAB LES Performing Organization Address [facility] de Phone Number [facility] [place] [address] * POCT Glucose (05/29/2017 8:18 PM EST) [facility] POC Glucose 110 65 - 199 mg/dL [facility] Comment: Supplemental ranges: <140 mg/dL before meals <180 mg/dL all other times of the day Blood specimen (specimen) 05/29/2017 8:18 PM EST 05/29/2017 8:18 PM EST Kuldeep Conner MD POINT OF CARE TEST ORDERABLES Performing Organization Address [facility] Phone Number [facility] [place] [address] * Heparin, low molecular weight assay (05/29/2017 4:12 PM EST) Heparin [id number] 0.34 IU/mL [facility] Comment: Guidelines for therapeutic unfractionated [...] APRN HEMATOLOGY ORDERAB LES Performing Organization Address City/State/[facility] Co de Phone Number [facility] [place] [address] * POCT Glucose (05/29/2017 4:01 PM EST) POC Glucose 99 65 - 199 mg/dL [facility] Comment: Supplemental ranges: <140 mg/dL before meals <180 mg/dL all other times of the day Blood specimen (specimen) 05/29/2017 4:01 PM EST 05/29/2017 4:01 PM EST Kuldeep Conner MD POINT OF CARE TEST ORDERABLES Performing Organization Address [facility] Co de Phone Number [facility] [place] [address] * POCT Glucose (05/29/2017 11:52 AM EST) [facility] POC Glucose 120 65 - 199 mg/dL [facility] Comment: Supplemental ranges: <140 mg/dL before meals <180 mg/dL all other times of the day Blood specimen (specimen) 05/29/2017 11:52 AM EST 05/29/2017 11:52 AM EST Kuldeep Conner MD POINT OF CARE TEST ORDERABLES Performing Organization Address [facility] de Phone Number [facility] [place] [address] * Heparin, low molecular weight assay (05/29/2017 10:34 AM EST) [facility] Heparin [id number] 0.55 IU/mL [facility] Comment: Guidelines for therapeutic unfractionated [...] APRN HEMATOLOGY ORDERAB LES Performing Organization Address [facility] Co de Phone Number [facility] [place] [address] * POCT Glucose (05/29/2017 7:43 AM EST) [facility] POC Glucose 97 65 - 199 mg/dL [facility] Comment: Supplemental ranges: <140 mg/dL before meals <180 mg/dL all other times of the day Blood specimen (specimen) 05/29/2017 7:43 AM EST 05/29/2017 7:43 AM EST Kuldeep Conner MD POINT OF CARE TEST ORDERABLES Performing Organization Address [facility] Co de Phone Number [facility] [place] [address] * Heparin, low molecular weight assay (05/29/2017 3:23 AM EST) Pathologist [facility] Heparin [id number] 0.20 IU/mL [facility] Comment: Guidelines for therapeutic unfractionated [...] Lab Verónica Watters APRN HEMATOLOGY ORDERAB LES [facility] [place] [address] * (ABNORMAL) Differential, Automated (05/29/2017 3:23 AM EST) Neutrophils % 72.2 % [facility] Neutr Abs (ANC) 7.37(H) 1.70 - 6.10 x10(3)/[facility] Lymphocytes % 16.0 % [facility] Lymphocytes Abs 1.6 0.9 - 3.2 x10(3)/[facility] Monocytes % 7.9 % [facility] Monocyte Abs 0.8 0.3 - 0.9 x10(3)/[facility] Eosinophils % 2.7 % [facility] Eosinophils Abs 0.3 0.0 - 0.4 x10(3)/[facility] Basophils % 0.5 % [facility] Basophils Abs 0.0 0.0 - 0.1 x10(3)/[facility] Immature Gran % 0.70 % [facility] Comment: Immature granulocytes(IG's)percentage and absolute count will include metamyelocytes, myelocytes, and promyelocytes. Blood smears from CBCs yielding IG's will be scanned manually for concordance. If this scan disagrees with the automated IG or if promyelocytes are noted, a manual differential will be performed. [place] Gran Abs 0.07(H) 0.00 - 0.04 x10(3)/[facility] LABORATORY Blood specimen (specimen) 05/29/2017 3:23 AM EST 05/29/2017 3:56 AM EST Narrative Resulting Agency Comment Spec In Lab Verónica Watters APRN HEMATOLOGY ORDERAB LES [facility] [place] [address] * (ABNORMAL) Hemogram (05/29/2017 3:23 AM EST) WBC 10.2(H) 4.0 - 9.5 x10(3)/[facility] LABORATORY RBC 2.63(L) 4.00 - 5.21 x10(6)/[facility] LABORATORY Hemoglobin 8.5(L) 11.7 - 15.5 gm/dL [facility] Hematocrit 25.3(L) 35.7 - 45.8 % [facility] MCV 96.2(H) 82.6 - 94.4 fL [facility] MCH 32.3(H) 27.1 - 32.0 pg [facility] MCHC 33.6 31.7 - 35.0 gm/dL [facility] Platelets 166 145 - 357 x10(3)/[facility] RDWSD 44.2 37.0 - 46.0 fL [facility] RDWCV 12.7 11.5 - 14.1 % [facility] LABORAT[facility] MPV 10.7 7.6 - 12.9 [facility] LABORATORY nRBC % Auto 0.0 % [facility] LABORATORY nRBC Abs Auto 0.000 0.000 - 0.000 x10(3)/[facility] LABORATORY Blood specimen (specimen) 05/29/2017 3:23 AM EST 05/29/2017 3:56 AM EST Narrative Resulting Agency Comment Spec In Lab Verónica Watters APRN HEMATOLOGY ORDERAB LES Performing Organization Address City/State/[facility] Co de Phone Number [facility] [place] [address] * Potassium (05/29/2017 3:23 AM EST) Potassium 3.9 3.5 - 5.0 mmol/L [facility] Comment: Please note: ??Patients with [...] APRN CHEMISTRY ORDERABL ES Performing Organization Address City/[facility]/ZIP Co de Phone Number [facility] [place] [address] * (ABNORMAL) Prothrombin Time (05/29/2017 3:23 AM EST) PT 23.6(H) 11.8 - 14.0 sec [facility] INR 2.1(H) 0.9 - 1.[address] [facility] LABORATORY Comment: An INR <2.0 indicates [...] APRN HEMATOLOGY ORDERAB LES Performing Organization Address [facility]/ZIP Co de Phone Number [facility] [place] [address] * POCT Glucose (05/28/2017 3:39 PM EST) Pathologist [facility] POC Glucose 127 65 - 199 mg/dL [facility] Comment: Supplemental ranges: <140 mg/dL before meals <180 mg/dL all other times of the day Blood specimen (specimen) 05/28/2017 3:39 PM EST 05/28/2017 3:39 PM EST Kuldeep Conner MD POINT OF CARE TEST ORDERABLES Performing Organization Address City/[facility]/ZIP Co de Phone Number [facility] [place] [address] * XR Chest PA & Lateral (Generic) [...] POC Glucose 89 65 - 199 mg/dL [facility] Comment: Supplemental ranges: <140 mg/dL before meals <180 mg/dL all other times of the day Blood specimen (specimen) 05/28/2017 11:32 AM EST 05/28/2017 11:32 AM EST Kuldeep Conner MD POINT OF CARE TEST ORDERABLES Performing Organization Address City/[facility] Co de Phone Number [facility] [place] [address] * POCT Glucose (05/28/2017 8:11 AM EST) POC Glucose 136 65 - 199 mg/dL [facility] Comment: Supplemental ranges: <140 mg/dL before meals <180 mg/dL all other times of the day Blood specimen (specimen) 05/28/2017 8:11 AM EST 05/28/2017 8:11 AM EST Kuldeep Conner MD POINT OF CARE TEST ORDERABLES Performing Organization Address City/[facility] Co de Phone Number [facility] [place] [address] * (ABNORMAL) Differential, Automated (05/28/2017 4:21 AM EST) Neutrophils % 76.8 % [facility] LABORATORY Neutr Abs (ANC) 10.05(H) 1.70 - 6.10 x10(3)/mc L [facility] Lymphocytes % 12.8 % [facility] LABORATORY Lymphocytes Abs 1.7 0.9 - 3.2 x10(3)/mc L [facility] Monocytes % 8.8 % [facility] LABOR[facility] Monocyte Abs 1.2(H) 0.3 - 0.9 x10(3)/mc L [facility] Eosinophils % 0.8 % [facility] LABORATORY Eosinophils Abs 0.1 0.0 - 0.4 x10(3)/[facility] LABORATORY Basophils % 0.2 % [facility] LABORATORY Basophils Abs 0.0 0.0 - 0.1 x10(3)/[facility] LABORATORY Immature Gran % 0.60 % [facility] Comment: Immature granulocytes(IG's)percentage and absolute count will include metamyelocytes, myelocytes, and promyelocytes. Blood smears from CBCs yielding IG's will be scanned manually for concordance. If this scan disagrees with the automated IG or if promyelocytes are noted, a manual differential will be performed. [place] Gran Abs 0.08(H) 0.00 - 0.04 x10(3)/[facility] LABORATORY Blood specimen (specimen) 05/28/2017 4:21 AM EST 05/28/2017 4:50 AM EST Narrative Resulting Agency Comment Spec In Lab Verónica Watters APRN HEMATOLOGY ORDERAB LES [facility] [place] [address] * (ABNORMAL) Hemogram (05/28/2017 4:21 AM EST) WBC 13.1(H) 4.0 - 9.5 x10(3)/[facility] LABORATORY RBC 2.81(L) 4.00 - 5.21 x10(6)/[facility] LABORATORY Hemoglobin 9.0(L) 11.7 - 15.5 gm/dL [facility] Hematocrit 26.1(L) 35.7 - 45.8 % [facility] MCV 92.9 82.6 - 94.4 fL [facility] MCH 32.0 27.1 - 32.0 pg [facility] MCHC 34.5 31.7 - 35.0 gm/dL [facility] Platelets 146 145 - 357 x10(3)/[facility] LABORATORY RDWSD 43.9 37.0 - 46.0 fL [facility] RDWCV 12.9 11.5 - 14.1 % [facility] MPV 11.5 7.6 - 12.9 fL [facility] nRBC % Auto 0.0 % [facility]OR[facility] nRBC Abs Auto 0.000 0.000 - 0.000 x10(3)/mcL [facility] LABOR[facility] Blood specimen (specimen) 05/28/2017 4:21 AM EST 05/28/2017 4:50 AM EST Narrative Resulting Agency Comment Spec In Lab Verónica Watters APRN HEMATOLOGY ORDERAB LES Performing Organization Address [facility] de Phone Number [facility] [place] [address] * (ABNORMAL) Prothrombin Time (05/28/2017 4:21 AM EST) PT 19.1(H) 11.8 - 14.0 sec [facility] INR 1.6(H) 0.9 - 1.[address] [facility] LAB[facility] Comment: An INR <2.0 indicates [...] APRN HEMATOLOGY ORDERAB LES Performing Organization Address [facility] Co de Phone Number [facility] [place] [address] * Heparin, low molecular weight assay (05/28/2017 4:21 AM EST) Heparin [id number] 0.39 IU/mL [facility] Comment: Guidelines for therapeutic unfractionated [...] Lab Verónica Watters APRN HEMATOLOGY ORDERAB LES [facility] [place] [address] * (ABNORMAL) Basic Metabolic Panel (non-fasting) (05/28/2017 4:21 AM EST) Glucose Lvl 105 65 - 199 mg/dL [facility] Comment:Diabetes: >=200 mg/d L plus symptoms BUN 16 8 - 18 mg/dL [facility] Creatinine 0.65(L) 0.70 - 1.20 mg/dL [facility] Sodium 141 135 - 145 mmol/L [facility] Potassium 4.1 3.5 - 5.0 mmol/L [facility] Comment: Please note: ??Patients with WBC >100,000 may have falsely elevated Potassium levels. ??For accurate Potassium quantification in these patients send serum separator tube (gold top) for subsequent determinations. ??Contact the Clinical Chemistry Laboratory if there are any questions. Chloride 98 98 - 107 mmol/L [facility] CO2 34(H) 22 - 31 mmol/L [facility] Anion Gap 9 5 - 15 mmol/L [facility] Calcium 8.5 8.5 - 10.5 mg/dL [facility] Estimated GFR >60 >=60 [facility]ORY Comment: The reported eGFR should be multiplied by 1.2 for patients. The MDRD is not an appropriate measure of renal function for patients with body mass extremes or in patients with acute kidney failure. http://[employer]/DHnkdep http://[employer]/DHMCnkf Blood specimen (specimen) 05/28/2017 4:21 AM EST 05/28/2017 4:50 AM EST Narrative Resulting Agency Comment Spec In Lab Verónica Watters APRN CHEMISTRY ORDERABL ES Performing Organization Address [facility] Co de Phone Number [facility] [place] [address] * POCT Glucose (05/27/2017 11:36 PM EST) [facility] POC Glucose 113 65 - 199 mg/dL [facility] Comment: Supplemental ranges: <140 mg/dL before meals <180 mg/dL all other times of the day Blood specimen (specimen) 05/27/2017 11:36 PM EST 05/27/2017 11:36 PM EST Kuldeep Conner MD POINT OF CARE TEST ORDERABLES [facility] [place] [address] * Heparin, low molecular weight assay (05/27/2017 9:32 PM EST) [facility] Heparin [id number] 0.42 IU/mL [facility] Comment: Guidelines for therapeutic unfractionated [...] APRN HEMATOLOGY ORDERAB LES Performing Organization Address [facility] de Phone Number [facility] [place] [address] * POCT Glucose (05/27/2017 8:17 PM EST) POC Glucose 114 65 - 199 mg/dL [facility] Comment: Supplemental ranges: <140 mg/dL before meals <180 mg/dL all other times of the day Blood specimen (specimen) 05/27/2017 8:17 PM EST 05/27/2017 8:17 PM EST Kuldeep Conner MD POINT OF CARE TEST ORDERABLES Performing Organization Address [facility] Co de Phone Number [facility] [place] [address] * POCT Glucose (05/27/2017 3:49 PM EST) POC Glucose 118 65 - 199 mg/dL [facility] Comment: Supplemental ranges: <140 mg/dL before meals <180 mg/dL all other times of the day Blood specimen (specimen) 05/27/2017 3:49 PM EST 05/27/2017 3:49 PM EST Kuldeep Conner MD POINT OF CARE TEST ORDERABLES [facility] [place] [address] * Heparin, low molecular weight assay (05/27/2017 3:30 PM EST) Heparin [id number] 0.34 IU/mL [facility] Comment: Guidelines for therapeutic unfractionated [...] Agency Comment Spec In Lab Verónica Patrice Velasquezlarissa KEN HEMATOLOGY ORDERAB LES Performing Organization Address [facility] Co de Phone Number [facility] [place] [address] * POCT Glucose (05/27/2017 11:51 AM EST) POC Glucose 105 65 - 199 mg/dL [facility] Comment: Supplemental ranges: <140 mg/dL before meals <180 mg/dL all other times of the day Blood specimen (specimen) 05/27/2017 11:51 AM EST 05/27/2017 11:51 AM EST Kuldeep Conner MD POINT OF CARE TEST ORDERABLES Performing Organization Address [facility] Co de Phone Number [facility] [place] [address] * POCT Glucose (05/27/2017 7:37 AM EST) POC Glucose 111 65 - 199 mg/dL [facility] Comment: Supplemental ranges: <140 mg/dL before meals <180 mg/dL all other times of the day Blood specimen (specimen) 05/27/2017 7:37 AM EST 05/27/2017 7:37 AM EST Kuldeep Conner MD POINT OF CARE TEST ORDERABLES Performing Organization Address [facility] Co de Phone Number [facility] [place] [address] * POCT Glucose (05/27/2017 5:06 AM EST) POC Glucose 105 65 - 199 mg/dL [facility] Comment: Supplemental ranges: <140 mg/dL before meals <180 mg/dL all other times of the day Blood specimen (specimen) 05/27/2017 5:06 AM EST 05/27/2017 5:06 AM EST Kuldeep Conner MD POINT OF CARE TEST ORDERABLES [facility] [place] [address] * Scan, Peripheral Blood (05/27/2017 5:05 AM EST) Plat Estimate Decreased [facility] RBC Morphology Abnormal [facility] Ovalocytes 1-5 /HPF [facility] LABORATORY Blood specimen (specimen) 05/27/2017 5:05 AM EST 05/27/2017 5:30 AM EST Narrative Resulting Agency Comment Spec In Lab Verónica Watters APRN HEMATOLOGY ORDERAB LES Performing Organization Address City/[facility]/ZIP Co de Phone Number [facility] [place] [address] * (ABNORMAL) Differential, Automated (05/27/2017 5:05 AM EST) Pathologist [facility] Neutrophils % 74.2 % [facility] Neutr Abs (ANC) 12.51(H) 1.70 - 6.10 x10(3)/mc L [facility] Lymphocytes % 15.5 % [facility] Lymphocytes Abs 2.6 0.9 - 3.2 x10(3)/mc L [facility] Monocytes % 9.1 % [facility] Monocyte Abs 1.5(H) 0.3 - 0.9 x10(3)/mc L [facility] Eosinophils % 0.3 % [facility] Eosinophils Abs 0.0 0.0 - 0.4 x10(3)/mc L [facility] Basophils % 0.5 % [facility] Basophils Abs 0.1 0.0 - 0.1 x10(3)/mc L [facility] Immature Gran % 0.40 % [facility] Comment: Immature granulocytes(IG's)percentage and absolute count will include metamyelocytes, myelocytes, and promyelocytes. Blood smears from CBCs yielding IG's will be scanned manually for concordance. If this scan disagrees with the automated IG or if promyelocytes are noted, a manual differential will be performed. [place] Gran Abs 0.07(H) 0.00 - 0.04 x10(3)/ L [facility] Blood specimen (specimen) 05/27/2017 5:05 AM EST 05/27/2017 5:30 AM EST Narrative Resulting Agency Comment Spec In Lab Verónica Watters APRN HEMATOLOGY ORDERAB LES [facility] [place] [address] * (ABNORMAL) Hemogram (05/27/2017 5:05 AM EST) WBC 16.8(H) 4.0 - 9.5 x10(3)/[facility] LABORATORY RBC 3.06(L) 4.00 - 5.21 x10(6)/[facility] LABORATORY Hemoglobin 10.0(L) 11.7 - 15.5 gm/dL [facility] Hematocrit 29.3(L) 35.7 - 45.8 % [facility] MCV 95.8(H) 82.6 - 94.4 fL [facility] MCH 32.7(H) 27.1 - 32.0 pg [facility] MCHC 34.1 31.7 - 35.0 gm/dL [facility] Platelets 140(L) 145 - 357 x10(3)/[facility] LABORATORY RDWSD 45.4 37.0 - 46.0 [facility] RDWCV 13.0 11.5 - 14.1 % [facility] MPV 11.1 7.6 - 12.9 [facility] LABORATORY nRBC % Auto 0.0 % [facility] nRBC Abs Auto 0.000 0.000 - 0.000 x10(3)/mcL [facility] Blood specimen (specimen) 05/27/2017 5:05 AM EST 05/27/2017 5:30 AM EST Narrative Resulting Agency Comment Spec In Lab Verónica Watters APRN HEMATOLOGY ORDERAB LES Performing Organization Address City/State/[facility] Co de Phone Number [facility] [place] [address] * Heparin, low molecular weight assay (05/27/2017 5:05 AM EST) Heparin [id number] 0.46 IU/mL [facility] Comment: Guidelines for therapeutic unfractionated [...] APRN HEMATOLOGY ORDERAB LES Performing Organization Address [facility] Phone Number [facility] [place] [address] * Potassium (05/27/2017 5:05 AM EST) Pathologist [facility] Potassium 4.7 3.5 - 5.0 mmol/L [facility] Comment: Please note: ??Patients with [...] APRN CHEMISTRY ORDERABL ES Performing Organization Address [facility] Phone Number [facility] [place] [address] * (ABNORMAL) Prothrombin Time (05/27/2017 5:05 AM EST) PT 15.8(H) 11.8 - 14.0 sec [facility] INR 1.3(H) 0.9 - 1.1 [facility] Comment: An INR <2.0 indicates [...] APRN HEMATOLOGY ORDERAB LES Performing Organization Address [facility] de Phone Number [facility] [place] [address] * POCT Glucose (05/27/2017 1:25 AM EST) [facility] POC Glucose 116 65 - 199 mg/dL [facility] Comment: Supplemental ranges: <140 mg/dL before meals <180 mg/dL all other times of the day Blood specimen (specimen) 05/27/2017 1:25 AM EST 05/27/2017 1:25 AM EST Kuldeep Conner MD POINT OF CARE TEST ORDERABLES Performing Organization Address [facility] Phone Number [facility] [place] [address] * Heparin, low molecular weight assay (05/26/2017 11:40 PM EST) [facility] Heparin [id number] 0.55 IU/mL [facility] Comment: Guidelines for therapeutic unfractionated [...] Lab Verónica Watters APRN HEMATOLOGY ORDERAB LES [facility] [place] [address] * POCT Glucose (05/26/2017 11:38 PM EST) POC Glucose 110 65 - 199 mg/dL [facility] Comment: Supplemental ranges: <140 mg/dL before meals <180 mg/dL all other times of the day Blood specimen (specimen) 05/26/2017 11:38 PM EST 05/26/2017 11:38 PM EST Kuldeep Conner MD POINT OF CARE TEST ORDERABLES Performing Organization Address City/[facility] Co de Phone Number [facility] [place] [address] * POCT Glucose (05/26/2017 10:06 PM EST) POC Glucose 156 65 - 199 mg/dL [facility] Comment: Supplemental ranges: <140 mg/dL before meals <180 mg/dL all other times of the day Blood specimen (specimen) 05/26/2017 10:06 PM EST 05/26/2017 10:06 PM EST Kuldeep Conner MD POINT OF CARE TEST ORDERABLES Performing Organization Address [facility] Co de Phone Number [facility] [place] [address] * POCT Glucose (05/26/2017 7:43 PM EST) POC Glucose 117 65 - 199 mg/dL [facility] Comment: Supplemental ranges: <140 mg/dL before meals <180 mg/dL all other times of the day Blood specimen (specimen) 05/26/2017 7:43 PM EST 05/26/2017 7:43 PM EST Kuldeep Conner MD POINT OF CARE TEST ORDERABLES Performing Organization Address [facility] Co de Phone Number [facility] [place] [address] * POCT Glucose (05/26/2017 5:54 PM EST) POC Glucose 116 65 - 199 mg/dL [facility] Comment: Supplemental ranges: <140 mg/dL before meals <180 mg/dL all other times of the day Blood specimen (specimen) 05/26/2017 5:54 PM EST 05/26/2017 5:54 PM EST Kuldeep Conner MD POINT OF CARE TEST ORDERABLES [facility] [place] [address] * Heparin, low molecular weight assay (05/26/2017 5:50 PM EST) Heparin [id number] 0.34 IU/mL [facility] Comment: Guidelines for therapeutic unfractionated [...] APRN HEMATOLOGY ORDERAB LES Performing Organization Address [facility] Co de Phone Number [facility] [address] * POCT Glucose (05/26/2017 3:56 PM EST) POC Glucose 109 65 - 199 mg/dL [facility] Comment: Supplemental ranges: <140 mg/dL before meals <180 mg/dL all other times of the day Blood specimen (specimen) 05/26/2017 3:56 PM EST 05/26/2017 3:56 PM EST uKldeep Conner MD POINT OF CARE TEST ORDERABLES Performing Organization Address [facility] Co de Phone Number [facility] [place] [address] * POCT Glucose (05/26/2017 2:34 PM EST) POC Glucose 122 65 - 199 mg/dL [facility] Comment: Supplemental ranges: <140 mg/dL before meals <180 mg/dL all other times of the day Blood specimen (specimen) 05/26/2017 2:34 PM EST 05/26/2017 2:34 PM EST Kuldeep Conner MD POINT OF CARE TEST ORDERABLES Performing Organization Address [facility] Co de Phone Number [facility] [place] [address] * POCT Glucose (05/26/2017 11:30 AM EST) POC Glucose 114 65 - 199 mg/dL [facility] Comment: Supplemental ranges: <140 mg/dL before meals <180 mg/dL all other times of the day Blood specimen (specimen) 05/26/2017 11:30 AM EST 05/26/2017 11:30 AM EST Kuldeep Conner MD POINT OF CARE TEST ORDERABLES [facility] [place] [address] * (ABNORMAL) Differential, Automated (05/26/2017 9:40 AM EST) Neutrophils % 85.5 % [facility] Neutr Abs (ANC) 15.37(H) 1.70 - 6.10 x10(3)/[facility] LABORATORY Lymphocytes % 6.0 % [facility] Lymphocytes Abs 1.1 0.9 - 3.2 x10(3)/[facility] LABORATORY Monocytes % 7.8 % [facility] Monocyte Abs 1.4(H) 0.3 - 0.9 x10(3)/[facility] LABORATORY Eosinophils % 0.0 % [facility] Eosinophils Abs 0.0 0.0 - 0.4 x10(3)/[facility] LABORATORY Basophils % 0.2 % [facility] Basophils Abs 0.0 0.0 - 0.1 x10(3)/[facility] LABORATORY Immature Gran % 0.50 % [facility] Comment: Immature granulocytes(IG's)percentage and absolute count will include metamyelocytes, myelocytes, and promyelocytes. Blood smears from CBCs yielding IG's will be scanned manually for concordance. If this scan disagrees with the automated IG or if promyelocytes are noted, a manual differential will be performed. [place] Gran Abs 0.09(H) 0.00 - 0.04 x10(3)/[facility] LABORATORY Blood specimen (specimen) 05/26/2017 9:40 AM EST 05/26/2017 9:55 AM EST Narrative Resulting Agency Comment Spec In Lab Verónica Watters APRN HEMATOLOGY ORDERAB LES [facility] [place] [address] * (ABNORMAL) Hemogram (05/26/2017 9:40 AM EST) WBC 18.0(H) 4.0 - 9.5 x10(3)/[facility] LABORATORY RBC 3.51(L) 4.00 - 5.21 x10(6)/[facility] LABORATORY Hemoglobin 11.7 11.7 - 15.5 gm/dL [facility] Hematocrit 32.6(L) 35.7 - 45.8 % [facility] MCV 92.9 82.6 - 94.4 [facility] LABORATORY MCH 33.3(H) 27.1 - 32.0 pg [facility] MCHC 35.9(H) 31.7 - 35.0 gm/dL [facility] Platelets 140(L) 145 - 357 x10(3)/[facility] LABORATORY RDWSD 43.6 37.0 - 46.0 [facility] LABORATORY RDWCV 12.9 11.5 - 14.1 % [facility] MPV 11.0 7.6 - 12.9 [facility] LABORATORY nRBC % Auto 0.0 % [facility] nRBC Abs Auto 0.000 0.000 - 0.000 x10(3)/[facility] LABORATORY Blood specimen (specimen) 05/26/2017 9:40 AM EST 05/26/2017 9:55 AM EST Narrative Resulting Agency Comment Spec In Lab Verónica Watters APRN HEMATOLOGY ORDERAB LES [facility] [place] [address] * (ABNORMAL) Prothrombin Time (05/26/2017 9:40 AM EST) Pathologist [facility] PT 14.1(H) 11.8 - 14.0 sec [facility] INR 1.1 0.9 - 1.1 [facility] Comment: An INR <2.0 indicates [...] APRN HEMATOLOGY ORDERAB LES Performing Organization Address [facility] Co de Phone Number [facility] [place] [address] * APTT (05/26/2017 9:40 AM EST) PTT 34 25 - 35 sec [facility] Comment: The recommended therapeutic range for full dose, unfractionated heparin at [facility] is 80 ? 114 seconds. The use of the anti-Xa (heparin) level rather than the PTT is recommended for monitoring anticoagulation intensity in critically ill patients receiving unfractionated heparin by continuous IV infusion. Blood specimen (specimen) 05/26/2017 9:40 AM EST 05/26/2017 9:55 AM EST Narrative Resulting Agency Comment Spec In Lab Verónica Watters APRN HEMATOLOGY ORDERAB LES Performing Organization Address City/[facility] Co de Phone Number [facility] [place] [address] * POCT Glucose (05/26/2017 9:36 AM EST) POC Glucose 118 65 - 199 mg/dL [facility] Comment: Supplemental ranges: <140 mg/dL before meals <180 mg/dL all other times of the day Blood specimen (specimen) 05/26/2017 9:36 AM EST 05/26/2017 9:36 AM EST Kuldeep Conner MD POINT OF CARE TEST ORDERABLES Performing Organization Address City/[facility] Co de Phone Number [facility] [place] [address] * POCT Glucose (05/26/2017 8:00 AM EST) POC Glucose 135 65 - 199 mg/dL [facility] Comment: Supplemental ranges: <140 mg/dL before meals <180 mg/dL all other times of the day Blood specimen (specimen) 05/26/2017 8:00 AM EST 05/26/2017 8:00 AM EST Kuldeep Conner MD POINT OF CARE TEST ORDERABLES Performing Organization Address [facility] de Phone Number [facility] [place] [address] * POCT Glucose (05/26/2017 6:56 AM EST) POC Glucose 149 65 - 199 mg/dL [facility] Comment: Supplemental ranges: <140 mg/dL before meals <180 mg/dL all other times of the day Blood specimen (specimen) 05/26/2017 6:56 AM EST 05/26/2017 6:56 AM EST Kuldeep Conner MD POINT OF CARE TEST ORDERABLES Performing Organization Address [facility] Co de Phone Number [facility] [place] [address] * POCT Glucose (05/26/2017 6:11 AM EST) POC Glucose 99 65 - 199 mg/dL [facility] Comment: Supplemental ranges: <140 mg/dL before meals <180 mg/dL all other times of the day Blood specimen (specimen) 05/26/2017 6:11 AM EST 05/26/2017 6:11 AM EST Kuldeep Conner MD POINT OF CARE TEST ORDERABLES [facility] [place] [address] * (ABNORMAL) Differential, Automated (05/26/2017 4:00 AM EST) Neutrophils % 86.7 % [facility] Neutr Abs (ANC) 14.43(H) 1.70 - 6.10 x10(3)/[facility] LABORATORY Lymphocytes % 5.2 % [facility] Lymphocytes Abs 0.9 0.9 - 3.2 x10(3)/[facility] LABORATORY Monocytes % 7.4 % [facility] Monocyte Abs 1.2(H) 0.3 - 0.9 x10(3)/[facility] LABORATORY Eosinophils % 0.0 % [facility] Eosinophils Abs 0.0 0.0 - 0.4 x10(3)/[facility] LABORATORY Basophils % 0.2 % [facility] Basophils Abs 0.0 0.0 - 0.1 x10(3)/[facility] LABORATORY Immature Gran % 0.50 % [facility] Comment: Immature granulocytes(IG's)percentage and absolute count will include metamyelocytes, myelocytes, and promyelocytes. Blood smears from CBCs yielding IG's will be scanned manually for concordance. If this scan disagrees with the automated IG or if promyelocytes are noted, a manual differential will be performed. [place] Gran Abs 0.09(H) 0.00 - 0.04 x10(3)/[facility] LABORATORY Blood specimen (specimen) 05/26/2017 4:00 AM EST 05/26/2017 4:24 AM EST Narrative Resulting Agency Comment Spec In Lab Carmelo GONZALES HEMATOLOGY ORDER ADRIANA Performing Organization Address City/[facility]/ZIP Co de Phone Number [facility] [place] [address] * (ABNORMAL) Hemogram (05/26/2017 4:00 AM EST) Pathologist [facility] WBC 16.6(H) 4.0 - 9.5 x10(3)/[facility] LABORATORY RBC 3.40(L) 4.00 - 5.21 x10(6)/[facility] LABORATORY Hemoglobin 11.2(L) 11.7 - 15.5 gm/dL [facility] Hematocrit 31.5(L) 35.7 - 45.8 % [facility] MCV 92.6 82.6 - 94.4 fL [facility] MCH 32.9(H) 27.1 - 32.0 pg [facility] MCHC 35.6(H) 31.7 - 35.0 gm/dL [facility] Platelets 128(L) 145 - 357 x10(3)/[facility] LABORATORY RDWSD 43.3 37.0 - 46.0 [facility] LABORATORY RDWCV 12.8 11.5 - 14.1 % [facility] MPV 11.2 7.6 - 12.9 [facility] LABORATORY nRBC % Auto 0.0 % [facility] nRBC Abs Auto 0.000 0.000 - 0.000 x10(3)/[facility] LABORATORY Blood specimen (specimen) 05/26/2017 4:00 AM EST 05/26/2017 4:24 AM EST Narrative Resulting Agency Comment Spec In Lab Carmelo GONZALES HEMATOLOGY ORDER ADRIANA [facility] [place] [address] * POCT Glucose (05/26/2017 4:00 AM EST) Pathologist [facility] POC Glucose 96 65 - 199 mg/dL [facility] Comment: Supplemental ranges: <140 mg/dL before meals <180 mg/dL all other times of the day Blood specimen (specimen) 05/26/2017 4:00 AM EST 05/26/2017 4:00 AM EST Kuldeep Conner MD POINT OF CARE TEST ORDERABLES Performing Organization Address [facility] Co de Phone Number [facility] [place] [address] * Electrolytes panel (05/26/2017 4:00 AM EST) Pathologist [facility] Sodium 142 135 - 145 mmol/L [facility] Potassium 4.7 3.5 - 5.0 mmol/L [facility] Comment: Please note: ??Patients with WBC >100,000 may have falsely elevated Potassium levels. ??For accurate Potassium quantification in these patients send serum separator tube (gold top) for subsequent determinations. ??Contact the Clinical Chemistry Laboratory if there are any questions. Chloride 106 98 - 107 mmol/L [facility] CO2 24 22 - 31 mmol/L [facility] Anion Gap 12 5 - 15 mmol/L [facility] Blood specimen (specimen) 05/26/2017 4:00 AM EST 05/26/2017 4:25 AM EST Narrative Resulting Agency Comment Spec In Lab Kuldeep Conner MD CHEMISTRY ORDERABLE S Performing Organization Address [facility] de Phone Number [facility] [place] [address] * (ABNORMAL) Cardiac Enzymes (LEB/CGP) (05/26/2017 4:00 AM EST) Pathologist [facility] Troponin-T 0.34(H) 0.00 - 0.00 ng/mL [facility] Comment: The 99th percentile for Troponin T is less than 0.01 ng/mL, any detectable cTnT concentration using this assay should be considered elevated. According to the third universal definition of myocardial infarction the following criteria with a clinical presentation consistent with acute myocardial ischemia meets the diagnosis for a myocardial infarction (MT). Detection of a rise and/or fall of cTnT, with at least one value greater than the 99th percentile (> or = 0.01) and with at least one of the following ?? Symptoms of ischemia ?? New or presumed new significant BU-fzseavp-C wave (ST-T) changes or new left bundle [...] additional sample may be indicated. Reference: Third Hobson Definition of Myocardial Infarction. Journal of the [place] [employer] 2012;60:1581-98 CK, Total 388(H) 0 - 160 unit/L [facility] Blood specimen (specimen) 05/26/2017 4:00 AM EST 05/26/2017 4:24 AM EST Narrative Resulting Agency Comment Spec In Lab Kuldeep Conner MD CHEMISTRY ORDERABLE S Performing Organization Address City/State/[facility] Co de Phone Number [facility] [place] [address] * (ABNORMAL) Glucose, fasting (05/26/2017 4:00 AM EST) Glucose Fasting 136(H) 65 - 99 mg/dL [facility] Comment: ?Fasting* Glucose Interpretive Criteria [...] of Diabetes Mellitus, Position Statement from the [place] [employer]. ??Diabetes Care, Volume 33, Supplement 1, Apr 2009 Blood specimen (specimen) 05/26/2017 4:00 AM EST 05/26/2017 4:24 AM EST Narrative Resulting Agency Comment Spec In Lab Kuldeep Conner MD CHEMISTRY ORDERABLE S Performing Organization Address [facility] de Phone Number [facility] [place] [address] * (ABNORMAL) Creatinine (05/26/2017 4:00 AM EST) Creatinine 0.65(L) 0.70 - 1.20 mg/dL [facility] Estimated GFR >60 >=60 [facility] Comment: The reported eGFR should be multiplied by 1.2 for patients. The MDRD is not an appropriate measure of renal function for patients with body mass extremes or in patients with acute kidney failure. http://Watsi/DHnkdep http://Watsi/DHMCnkf Blood specimen (specimen) 05/26/2017 4:00 AM EST 05/26/2017 4:24 AM EST Narrative Resulting Agency Comment Spec In Lab Kuldeep Conner MD CHEMISTRY ORDERABLE S Performing Organization Address [facility] Co de Phone Number [facility] [place] [address] * BUN (05/26/2017 4:00 AM EST) BUN 14 8 - 18 mg/dL [facility] Blood specimen (specimen) 05/26/2017 4:00 AM EST 05/26/2017 4:24 AM EST Narrative Resulting Agency Comment Spec In Lab Kuldeep Conner MD CHEMISTRY ORDERABLE S Performing Organization Address [facility] Co de Phone Number [facility] [place] [address] * POCT Glucose (05/26/2017 2:58 AM EST) POC Glucose 143 65 - 199 mg/dL [facility] Comment: Supplemental ranges: <140 mg/dL before meals <180 mg/dL all other times of the day Blood specimen (specimen) 05/26/2017 2:58 AM EST 05/26/2017 2:58 AM EST Kuldeep Conner MD POINT OF CARE TEST ORDERABLES Performing Organization Address City/[facility] Co de Phone Number [facility] [place] [address] * POCT Glucose (05/26/2017 2:06 AM EST) POC Glucose 137 65 - 199 mg/dL [facility] Comment: Supplemental ranges: <140 mg/dL before meals <180 mg/dL all other times of the day Blood specimen (specimen) 05/26/2017 2:06 AM EST 05/26/2017 2:06 AM EST Kuldeep Conner MD POINT OF CARE TEST ORDERABLES Performing Organization Address [facility] Co de Phone Number [facility] [place] [address] * POCT Glucose (05/26/2017 12:56 AM EST) POC Glucose 133 65 - 199 mg/dL [facility] Comment: Supplemental ranges: <140 mg/dL before meals <180 mg/dL all other times of the day Blood specimen (specimen) 05/26/2017 12:56 AM EST 05/26/2017 12:56 AM EST Kuldeep Conner MD POINT OF CARE TEST ORDERABLES Performing Organization Address City/[facility] Co de Phone Number [facility] [place] [address] * POCT Glucose (05/26/2017 12:06 AM EST) POC Glucose 116 65 - 199 mg/dL [facility] Comment: Supplemental ranges: <140 mg/dL before meals <180 mg/dL all other times of the day Blood specimen (specimen) 05/26/2017 12:06 AM EST 05/26/2017 12:06 AM EST Kuldeep Conner MD POINT OF CARE TEST ORDERABLES Performing Organization Address [facility] Co de Phone Number [facility] [place] [address] * POCT Glucose (05/25/2017 11:22 PM EST) POC Glucose 106 65 - 199 mg/dL [facility] Comment: Supplemental ranges: <140 mg/dL before meals <180 mg/dL all other times of the day Blood specimen (specimen) 05/25/2017 11:22 PM EST 05/25/2017 11:22 PM EST Kuldeep Conner MD POINT OF CARE TEST ORDERABLES Performing Organization Address [facility] de Phone Number [facility] [place] [address] * POCT Glucose (05/25/2017 10:54 PM EST) POC Glucose 99 65 - 199 mg/dL [facility] Comment: Supplemental ranges: <140 mg/dL before meals <180 mg/dL all other times of the day Blood specimen (specimen) 05/25/2017 10:54 PM EST 05/25/2017 10:54 PM EST Kuldeep Conner MD POINT OF CARE TEST ORDERABLES Performing Organization Address [facility] Co de Phone Number [facility] [place] [address] * POCT Glucose (05/25/2017 10:05 PM EST) POC Glucose 139 65 - 199 mg/dL [facility] Comment: Supplemental ranges: <140 mg/dL before meals <180 mg/dL all other times of the day Blood specimen (specimen) 05/25/2017 10:05 PM EST 05/25/2017 10:05 PM EST Kuldeep Conner MD POINT OF CARE TEST ORDERABLES Performing Organization Address City/[facility]/ZIP Co de Phone Number [facility] [place] [address] * POCT Glucose (05/25/2017 9:02 PM EST) [facility] POC Glucose 167 65 - 199 mg/dL [facility] Comment: Supplemental ranges: <140 mg/dL before meals <180 mg/dL all other times of the day Blood specimen (specimen) 05/25/2017 9:02 PM EST 05/25/2017 9:02 PM EST Kuldeep Conner MD POINT OF CARE TEST ORDERABLES Performing Organization Address [facility] Co de Phone Number [facility] [place] [address] * (ABNORMAL) BLOOD GAS 2 ARTERIAL (05/25/2017 7:44 PM EST) [facility] pH Art 7.33(L) 7.35 - 7.45 [facility] pCO2 Art 43 35 - 45 mmHg [facility] pO2 Art 108(H) 85 - 104 mmHg [facility] HCO3 Art 21.9 20.0 - 26.0 mmol/L [facility] BE Art -4.1(L) -3.0 - 3.0 mmol/L [facility] Hgb Blood Gas 11.7(L) 11.7 - 15.5 gm/dL [facility] O2HB Art 95.5 94.0 - 97.0 % [facility] COHB Art 0.3 % [facility] Comment: Nonsmokers: 0.5-1.5% COHB Smokers: Variable, but usually less than 10% Toxic: 20-30% COHB Lethal: Greater than 60% COHB METHB Art 0.9 <=1.5 % [facility] Na Whole Blood 140 135 - 145 mmol/L [facility] K Whole Blood 4.2 3.5 - 5.0 mmol/L [facility] Comment: Please note: Patients with WBC >100,000 may have falsely elevated Potassium levels. Contact the Clinical Chemistry Laboratory if there are any questions. ICa Whole Blood 1.10(L) 1.15 - 1.33 mmol/L [facility] Comment: Note: ??Total bilirubin higher than 20 mg/dL may lead to falsely low ionized calcium. CL Whole Blood 109(H) 98 - 107 mmol/L [facility] Gluc Whole Bld 169 65 - 199 mg/dL [facility] Comment:Diabetes: >=200 mg/d L plus symptoms. Lactate WB 1.4 0.5 - 2.2 mmol/L [facility] FIO2 Art 40 % [facility] PF Ratio Art 270 [facility] Blood specimen (specimen) 05/25/2017 7:44 PM EST 05/25/2017 7:44 PM EST Bienvenido Wong MD CHEMISTRY ORDERABLES Performing Organization Address [facility]/ZIP Co de Phone Number [facility] [place] [address] * POCT Glucose (05/25/2017 7:41 PM EST) POC Glucose 177 65 - 199 mg/dL [facility] Comment: Supplemental ranges: <140 mg/dL before meals <180 mg/dL all other times of the day Blood specimen (specimen) 05/25/2017 7:41 PM EST 05/25/2017 7:41 PM EST Bienvenido Wong MD POINT OF CARE TEST O RDERABLES Performing Organization Address City/[facility]/ZIP Co de Phone Number [facility] [place] [address] * (ABNORMAL) Hemoglobin (05/25/2017 7:40 PM EST) Hemoglobin 10.8(L) 11.7 - 15.5 gm/dL [facility] Blood specimen (specimen) 05/25/2017 7:40 PM EST 05/25/2017 7:51 PM EST Narrative Resulting Agency Comment Spec In Lab Kuldeep Conner MD HEMATOLOGY ORDERABL ES Performing Organization Address [facility] Co de Phone Number [facility] [place] [address] * Potassium (05/25/2017 7:40 PM EST) Pathologist [facility] Potassium 4.4 3.5 - 5.0 mmol/L [facility] Comment: Please note: ??Patients with [...] MD CHEMISTRY ORDERABLE S Performing Organization Address [facility] de Phone Number [facility] [place] [address] * POCT Glucose (05/25/2017 5:08 PM EST) [facility] POC Glucose 132 65 - 199 mg/dL [facility] Comment: Supplemental ranges: <140 mg/dL before meals <180 mg/dL all other times of the day Blood specimen (specimen) 05/25/2017 5:08 PM EST 05/25/2017 5:08 PM EST Bienvenido Wong MD POINT OF CARE TEST O RDERABLES Performing Organization Address [facility] Co de Phone Number [facility] [place] [address] * Prepare Albumin 5% in 250 mL (05/25/2017 4:18 PM EST) Dispensed? Yes [facility] Blood specimen (specimen) No Charge / Unknown 05/25/2017 4:18 PM EST 05/25/2017 4:19 PM EST Narrative Resulting Agency Comment Spec In Lab Kuldeep Conner MD BLOOD BANK LAB [facility] [place] [address] * XR Chest PA or AP 1 view (05/25/2017 3:32 PM EST) Anatomical Region Laterality Modality Chest N/A Digital Radiogra phy Narrative 05/25/2017 3:48 PM EST EXAMINATION: XR CHEST PA OR AP 1 VIEW CLINICAL HISTORY: [facility] avr TECHNIQUE: AP portable chest COMPARISON: 05/18/2017 FINDINGS: Postsurgical and instrumentation of AVR repair. An endotracheal tube terminates approximately 5 cm above the sharon. An enteric tube terminates within the stomach. Side port has passed the gastroesophageal junction. Two mediastinal drainages are noted. A [place]um[place]-Milton catheter terminates at the likely position of the outflow tract of the pulmonary trunk. If a position in the right pulmonary artery is required advance for approximately 7.5 cm. No pneumothorax. Cardiomediastinal contours are magnified. Trace of atelectasis at both bases. No pleural effusions. Procedure Note Allison Davis MD - 05/25/2017 EXAMINATION: XR CHEST PA OR AP 1 VIEW CLINICAL HISTORY: [facility] avr TECHNIQUE: AP portable chest COMPARISON: 05/18/2017 FINDINGS: Postsurgical and instrumentation of AVR repair. An endotracheal tube terminates approximately 5 cm above the sharon. An enteric tube terminates within the stomach. Side port has passed the gastroesophageal junction. Two mediastinal drainages are noted. A [place]-Milton catheter terminates at the likely position of [...] EST) pH Art 7.42 7.35 - 7.45 [facility] pCO2 Art 38 35 - 45 mmHg [facility] pO2 Art 470(H) 85 - 104 mmHg [facility] HCO3 Art 24.1 20.0 - 26.0 mmol/L [facility] BE Art -0.4 -3.0 - 3.0 mmol/L [facility] Hgb Blood Gas 12.7 11.7 - 15.5 gm/dL [facility] O2HB Art 97.9(H) 94.0 - 97.0 % [facility] COHB Art 0.3 % [facility] Comment: Nonsmokers: 0.5-1.5% COHB Smokers: Variable, but usually less than 10% Toxic: 20-30% COHB Lethal: Greater than 60% COHB METHB Art 0.8 <=1.5 % [facility] Na Whole Blood 139 135 - 145 mmol/L [facility] K Whole Blood 3.9 3.5 - 5.0 mmol/L [facility] Comment: Please note: Patients with WBC >100,000 may have falsely elevated Potassium levels. Contact the Clinical Chemistry Laboratory if there are any questions. ICa Whole Blood 1.10(L) 1.15 - 1.33 mmol/L [facility] Comment: Note: ??Total bilirubin higher than 20 mg/dL may lead to falsely low ionized calcium. CL Whole Blood 108(H) 98 - 107 mmol/L [facility] Gluc Whole Bld 123 65 - 199 mg/dL [facility] Comment:Diabetes: >=200 mg/d L plus symptoms. Lactate WB 1.2 0.5 - 2.2 mmol/L [facility] FIO2 Art 100 % [facility] PF Ratio Art 470 [facility] Blood specimen (specimen) 05/25/2017 3:22 PM EST 05/25/2017 3:22 PM EST Bienvenido Wong MD CHEMISTRY ORDERABLES Performing Organization Address [facility] Co de Phone Number [facility] [place] [address] * EKG 12 Lead (05/25/2017 3:12 PM EST) Ventricular rate 104 BPM MUSE SYSTEM Atrial Rate 104 BPM MUSE SYSTEM P-R Interval 180 ms MUSE SYSTEM QRS Duration 104 ms MUSE SYSTEM Q-T Interval 388 ms MUSE SYSTEM QTC Calculated (Bezet) 510 ms MUSE SYSTEM Calculated P [place] 63 degrees MUSE SYSTEM Calculated R [place] -46 degrees MUSE SYSTEM Calculated T [place] 82 degrees MUSE SYSTEM INTERPRETATION Sinus tachycardia [...] infarct Present Confirmed by MD Angel, Phuong ([id number]) on 05/25/2017 7:43:50 PM MUSE SYSTEM 05/25/2017 3:12 PM EST 05/25/2017 7:43 PM EST Kuldeep Conner MD ECG ORDERABLES MUSE SYSTEM * (ABNORMAL) BLOOD GAS 2 ARTERIAL (05/25/2017 1:58 PM EST) pH Art 7.46(H) 7.35 - 7.45 [facility] pCO2 Art 36 35 - 45 mmHg [facility] pO2 Art 269(H) 85 - 104 mmHg [facility] HCO3 Art 24.7 20.0 - 26.0 mmol/L [facility] BE Art 0.8 -3.0 - 3.0 mmol/L [facility] Hgb Blood Gas 8.3(L) 11.7 - 15.5 gm/dL [facility] O2HB Art 98.4(H) 94.0 - 97.0 % [facility] COHB Art 0.3 % [facility] Comment: Nonsmokers: 0.5-1.5% COHB Smokers: Variable, but usually less than 10% Toxic: 20-30% COHB Lethal: Greater than 60% COHB METHB Art 0.3 <=1.5 % [facility] Na Whole Blood 135 135 - 145 mmol/L [facility] K Whole Blood 4.1 3.5 - 5.0 mmol/L [facility] Comment: Please note: Patients with WBC >100,000 may have falsely elevated Potassium levels. Contact the Clinical Chemistry Laboratory if there are any questions. ICa Whole Blood 1.15(L) 1.15 - 1.33 mmol/L [facility] Comment: Note: ??Total bilirubin higher than 20 mg/dL may lead to falsely low ionized calcium. CL Whole Blood 105 98 - 107 mmol/L [facility] Gluc Whole Bld 186 65 - 199 mg/dL [facility] Comment:Diabetes: >=200 mg/d L plus symptoms. Lactate WB 2.2 0.5 - 2.2 mmol/L [facility] Blood specimen (specimen) 05/25/2017 1:58 PM EST 05/25/2017 1:58 PM EST Bienvenido Wong MD CHEMISTRY ORDERABLES [facility] [place] [address] * Thrombin time (05/25/2017 1:55 PM EST) Thrombin Time 18 15 - 20 sec [facility] Comment: A prolongation in the [...] MD HEMATOLOGY ORDERABLE S Performing Organization Address [facility] Co de Phone Number [facility] [place] [address] * Fibrinogen (05/25/2017 1:55 PM EST) Fibrinogen 260 180 - 510 mg/dL [facility] Comment: Called by: justen, Read back by:Zeeshan Granger, Date/Time:05/25/17 14:15. A fibrinogen level >100 mg/dL is adequate for hemostasis in most patients without underlying bleeding disorders. Blood specimen (specimen) 05/25/2017 1:55 PM EST 05/25/2017 2:01 PM EST Narrative Resulting Agency Comment Spec In Lab Bienvenido Wong MD HEMATOLOGY ORDERABLE S Performing Organization Address [facility] Co de Phone Number [facility] [place] [address] * APTT (05/25/2017 1:55 PM EST) PTT 33 25 - 35 sec [facility] Comment: The recommended therapeutic range for full dose, unfractionated heparin at [facility] is 80 ? 114 seconds. The use of the anti-Xa (heparin) level rather than the PTT is recommended for monitoring anticoagulation intensity in critically ill patients receiving unfractionated heparin by continuous IV infusion. Blood specimen (specimen) 05/25/2017 1:55 PM EST 05/25/2017 2:01 PM EST Narrative Resulting Agency Comment Spec In Lab Bienvenido Wong MD HEMATOLOGY ORDERABLE S Performing Organization Address City/[facility] Co de Phone Number [facility] [place] [address] * (ABNORMAL) Prothrombin Time (05/25/2017 1:55 PM EST) PT 18.0(H) 11.8 - 14.0 sec [facility] INR 1.5(H) 0.9 - 1.1 [facility] Comment: An INR <2.0 indicates [...] Lab Bienvenido Wong MD HEMATOLOGY ORDERABLE S [facility] [place] [address] * (ABNORMAL) Hemogram (05/25/2017 1:55 PM EST) WBC 13.7(H) 4.0 - 9.5 x10(3)/[facility] LABORATORY RBC 2.45(L) 4.00 - 5.21 x10(6)/[facility] Hemoglobin 8.0(L) 11.7 - 15.5 gm/dL [facility] Hematocrit 23.1(L) 35.7 - 45.8 % [facility] Comment: This result has been called to ANETA HOBBS by LYNDA MARTIN on 05 25 2017 at 1423, and has been read back. MCV 94.3 82.6 - 94.4 fL [facility] MCH 32.7(H) 27.1 - 32.0 pg [facility] MCHC 34.6 31.7 - 35.0 gm/dL [facility] Platelets 107(L) 145 - 357 x10(3)/[facility] LABORATORY RDWSD 42.7 37.0 - 46.0 fL [facility] RDWCV 12.4 11.5 - 14.1 % [facility] MPV 10.7 7.6 - 12.9 fL [facility] nRBC % Auto 0.0 % [facility] nRBC Abs Auto 0.000 0.000 - 0.000 x10(3)/mcL [facility] Blood specimen (specimen) 05/25/2017 1:55 PM EST 05/25/2017 2:01 PM EST Narrative Resulting Agency Comment Spec In Lab Bienvenido Wong MD HEMATOLOGY ORDERABLE S [facility] [place] [address] * (ABNORMAL) BLOOD GAS 2 ARTERIAL (05/25/2017 1:02 PM EST) pH Art 7.40 7.35 - 7.45 [facility] pCO2 Art 47(H) 35 - 45 mmHg [facility] pO2 Art 286(H) 85 - 104 mmHg [facility] HCO3 Art 28.7(H) 20.0 - 26.0 mmol/L [facility] BE Art 4.0(H) -3.0 - 3.0 mmol/L [facility] Hgb Blood Gas 8.6(L) 11.7 - 15.5 gm/dL [facility] O2HB Art 98.5(H) 94.0 - 97.0 % [facility] COHB Art 0.3 % [facility] Comment: Nonsmokers: 0.5-1.5% COHB Smokers: Variable, but usually less than 10% Toxic: 20-30% COHB Lethal: Greater than 60% COHB METHB Art 0.3 <=1.5 % [facility] Na Whole Blood 131(L) 135 - 145 mmol/L [facility] K Whole Blood 5.4(H) 3.5 - 5.0 mmol/L [facility] Comment: Please note: Patients with WBC >100,000 may have falsely elevated Potassium levels. Contact the Clinical Chemistry Laboratory if there are any questions. ICa Whole Blood 0.96(L) 1.15 - 1.33 mmol/L [facility] Comment: Note: ??Total bilirubin higher than 20 mg/dL may lead to falsely low ionized calcium. CL Whole Blood 101 98 - 107 mmol/L [facility] Gluc Whole Bld 200(H) 65 - 199 mg/dL [facility] Comment:Diabetes: >=200 mg/d L plus symptoms. Lactate WB 1.4 0.5 - 2.2 mmol/L [facility] Blood specimen (specimen) 05/25/2017 1:02 PM EST 05/25/2017 1:02 PM EST Bienvenido Wong MD CHEMISTRY ORDERABLES Performing Organization Address City/State/[facility] Co de Phone Number [facility] [place] [address] * (ABNORMAL) Platelet count (05/25/2017 12:35 PM EST) Platelets 134(L) 145 - 357 x10(3)/mc L [facility] Plat Immature % 3.9 0.0 - 7.4 % [facility] Comment: Limitation of the Immature Platelet Fraction (IPF)-May be less reliable when the platelet count is less than 79d198/uL due to statistical imprecision. The IPF value [...] in a decreased state of production. References: [employer] The Clinical Value of the Immature Platelet Fraction (IPF) in Cell Recovery Document Number [id number] 09/2010 [employer] The Role of the Immature Platelet Fraction (IPF) in the Differential Diagnosis of Thrombocytopenia, Document [id number] V05 Blood specimen (specimen) 05/25/2017 12:35 PM EST 05/25/2017 12:37 PM EST Narrative Resulting Agency Comment Spec In Lab Bienvenido Wong MD HEMATOLOGY ORDERABLE S Performing Organization Address [facility] de Phone Number [facility] [place] [address] * (ABNORMAL) Hemoglobin and Hematocrit, blood (05/25/2017 12:35 PM EST) Hemoglobin 8.7(L) 11.7 - 15.5 gm/dL [facility] Comment: This result has been called to ANETA HOBBS by LYNDA MARTIN on 05 25 2017 at 1245, and has been read back. Hematocrit 24.5(L) 35.7 - 45.8 % [facility] Comment: This result has been called to ANETA HOBBS by LYNDA MARTIN on 05 25 2017 at 1245, and has been read back. Blood specimen (specimen) 05/25/2017 12:35 PM EST 05/25/2017 12:37 PM EST Narrative Resulting Agency Comment Spec In Lab Bienvenido Wong MD HEMATOLOGY ORDERABLE S Performing Organization Address [facility] Co de Phone Number [facility] [place] [address] * Fibrinogen (05/25/2017 12:35 PM EST) Fibrinogen 267 180 - 510 mg/dL [facility] Comment: Called by: louise, Read back by: zeeshan rubi_, Date/Time:_05/25/17 12:52. A fibrinogen level >100 mg/dL is adequate for hemostasis in most patients without underlying bleeding disorders. Blood specimen (specimen) 05/25/2017 12:35 PM EST 05/25/2017 12:37 PM EST Narrative Resulting Agency Comment Spec In Lab Bienvenido Wong MD HEMATOLOGY ORDERABLE S [facility] [place] [address] * (ABNORMAL) BLOOD GAS 2 ARTERIAL (05/25/2017 12:32 PM EST) pH Art 7.37 7.35 - 7.45 [facility] pCO2 Art 46(H) 35 - 45 mmHg [facility] pO2 Art 418(H) 85 - 104 mmHg [facility] HCO3 Art 26.3(H) 20.0 - 26.0 mmol/L [facility] BE Art 1.1 -3.0 - 3.0 mmol/L [facility] Hgb Blood Gas 9.2(L) 11.7 - 15.5 gm/dL [facility] O2HB Art 98.8(H) 94.0 - 97.0 % [facility] COHB Art 0.3 % [facility] Comment: Nonsmokers: 0.5-1.5% COHB Smokers: Variable, but usually less than 10% Toxic: 20-30% COHB Lethal: Greater than 60% COHB METHB Art 0.0 <=1.5 % [facility] Na Whole Blood 132(L) 135 - 145 mmol/L [facility] K Whole Blood 5.3(H) 3.5 - 5.0 mmol/L [facility] Comment: Please note: Patients with WBC >100,000 may have falsely elevated Potassium levels. Contact the Clinical Chemistry Laboratory if there are any questions. ICa Whole Blood 0.94(L) 1.15 - 1.33 mmol/L [facility] Comment: Note: ??Total bilirubin higher than 20 mg/dL may lead to falsely low ionized calcium. CL Whole Blood 102 98 - 107 mmol/L [facility] Gluc Whole Bld 184 65 - 199 mg/dL [facility] Comment:Diabetes: >=200 mg/d L plus symptoms. Lactate WB 1.2 0.5 - 2.2 mmol/L [facility] Blood specimen (specimen) 05/25/2017 12:32 PM EST 05/25/2017 12:32 PM EST Bienvenido Wong MD CHEMISTRY ORDERABLES [facility] [place] [address] * Surgical Pathology Report (05/25/2017 12:28 PM EST) FINAL DIAGNOSIS (AP) [id number] ? Location: [facility]; [address] [place] [address] The signing pathologist has (i) examined the relevant preparation(s) for the specimen(s) and (ii) rendered or confirmed the diagnosis(es). . 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 Electronically signed by: ??Shahrzad Paris DO Verified: ??05/28/2017 ?Pathologist Performed at: ??-[facility] Dept. of Pathology, [place], [place] CLINICAL INFORMATION Specimen Submitted: A - [...] be determined due to fragmentation. Sections/Processi ng: No Bake Molder sections are submitted. (R1) ??cf 05/28/2017 10:32 AM EST [facility] AORTIC STRUCTURE / Unknown 05/25/2017 12:28 PM EST 05/25/2017 12:28 PM EST Kuldeep Conner MD PATHOLOGY/CYTOLOGY ORDERABLES Performing Organization Address City/[facility]/[place] [address] * Specimen to Pathology (05/25/2017 12:28 PM EST) AP Specimen 05/25/2017 12:2 8 PM EST 05/25/2017 12:52 PM EST Narrative [facility] - 05/25/2017 12:52 PM EST Specimen requisition ordered. ??Separate Pathology report to follow Resulting Agency Comment Spec In Lab Bienvenido Wong MD PATHOLOGY/CYTOLOGY O RDERABLES Performing Organization Address City/[facility] [place] [address] * (ABNORMAL) BLOOD GAS 2 ARTERIAL (05/25/2017 12:05 PM EST) pH Art 7.40 7.35 - 7.45 [facility] pCO2 Art 38 35 - 45 mmHg [facility] pO2 Art 406(H) 85 - 104 mmHg [facility] HCO3 Art 23.2 20.0 - 26.0 mmol/L [facility] BE Art -1.5 -3.0 - 3.0 mmol/L [facility] Hgb Blood Gas 9.7(L) 11.7 - 15.5 gm/dL [facility] O2HB Art 98.9(H) 94.0 - 97.0 % [facility] COHB Art 0.3 % [facility] Comment: Nonsmokers: 0.5-1.5% COHB Smokers: Variable, but usually less than 10% Toxic: 20-30% COHB Lethal: Greater than 60% COHB METHB Art 0.0 <=1.5 % [facility] Na Whole Blood 134(L) 135 - 145 mmol/L [facility] K Whole Blood 4.1 3.5 - 5.0 mmol/L [facility] Comment: Please note: Patients with WBC >100,000 may have falsely elevated Potassium levels. Contact the Clinical Chemistry Laboratory if there are any questions. ICa Whole Blood 0.99(L) 1.15 - 1.33 mmol/L [facility] Comment: Note: ??Total bilirubin higher than 20 mg/dL may lead to falsely low ionized calcium. CL Whole Blood 102 98 - 107 mmol/L [facility] Gluc Whole Bld 94 65 - 199 mg/dL [facility] Comment:Diabetes: >=200 mg/d L plus symptoms. Lactate WB 0.8 0.5 - 2.2 mmol/L [facility] Blood specimen (specimen) 05/25/2017 12:05 PM EST 05/25/2017 12:05 PM EST Bienvenido Wong MD CHEMISTRY ORDERABLES [facility] [place] [address] * (ABNORMAL) BLOOD GAS 2 VENOUS (05/25/2017 12:05 PM EST) pH Amador 7.38 7.32 - 7.42 [facility] pCO2 [place] 40(L) 41 - 51 mmHg [facility] pO2 [place] 45(H) 25 - 40 mmHg [facility] HCO3 [place] 22.9 mmol/L [facility] BE Amador -2.2 mmol/L [facility] Hgb Blood Gas 10.1(L) 11.7 - 15.5 gm/dL [facility] O2HB Amador 79.8 % [facility] COHB Amador 0.1 % [facility] Comment: Nonsmokers: 0.5-1.5% COHB Smokers: Variable, but usually less than 10% Toxic: 20-30% COHB Lethal: Greater than 60% COHB METHB Amador 0.3 <=1.5 % [facility] Na Whole Blood 135 135 - 145 mmol/L [facility] K Whole Blood 4.1 3.5 - 5.0 mmol/L [facility] Comment: Please note: Patients with WBC >100,000 may have falsely elevated Potassium levels. Contact the Clinical Chemistry Laboratory if there are any questions. ICa Whole Blood 1.03(L) 1.15 - 1.33 mmol/L [facility] Comment: Note: ??Total bilirubin higher than 20 mg/dL may lead to falsely low ionized calcium. CL Whole Blood 102 98 - 107 mmol/L [facility] Gluc Whole Bld 93 65 - 199 mg/dL [facility] Comment:Diabetes: >=200 mg/d L plus symptoms Lactate WB 0.7 0.5 - 2.2 mmol/L [facility] BGas Source Venous [facility] Blood specimen (specimen) 05/25/2017 12:05 PM EST 05/25/2017 12:05 PM EST Bienvenido Wong MD CHEMISTRY ORDERABLES Performing Organization Address City/State/[facility] Co de Phone Number [facility] [place] [address] * (ABNORMAL) BLOOD GAS 2 ARTERIAL (05/25/2017 11:27 AM EST) pH Art 7.47(H) 7.35 - 7.45 [facility] pCO2 Art 37 35 - 45 mmHg [facility] pO2 Art 255(H) 85 - 104 mmHg [facility] HCO3 Art 25.7 20.0 - 26.0 mmol/L [facility] BE Art 2.0 -3.0 - 3.0 mmol/L [facility] Hgb Blood Gas 11.9 11.7 - 15.5 gm/dL [facility] O2HB Art 98.6(H) 94.0 - 97.0 % [facility] COHB Art 0.3 % [facility] Comment: Nonsmokers: 0.5-1.5% COHB Smokers: Variable, but usually less than 10% Toxic: 20-30% COHB Lethal: Greater than 60% COHB METHB Art 0.3 <=1.5 % [facility] Na Whole Blood 143 135 - 145 mmol/L [facility] K Whole Blood 4.1 3.5 - 5.0 mmol/L [facility] Comment: Please note: Patients with WBC >100,000 may have falsely elevated Potassium levels. Contact the Clinical Chemistry Laboratory if there are any questions. ICa Whole Blood 1.15(L) 1.15 - 1.33 mmol/L [facility] Comment: Note: ??Total bilirubin higher than 20 mg/dL may lead to falsely low ionized calcium. CL Whole Blood 107 98 - 107 mmol/L [facility] Gluc Whole Bld 93 65 - 199 mg/dL [facility] Comment:Diabetes: >=200 mg/d L plus symptoms. Lactate WB 0.8 0.5 - 2.2 mmol/L [facility] Blood specimen (specimen) 05/25/2017 11:27 AM EST 05/25/2017 11:27 AM EST Bienvenido Wong MD CHEMISTRY ORDERABLES Performing Organization Address City/State/[facility] Co de Phone Number [facility] [place] [address] * (ABNORMAL) BLOOD GAS 2 ARTERIAL (05/25/2017 11:04 AM EST) pH Art 7.37 7.35 - 7.45 [facility] pCO2 Art 48(H) 35 - 45 mmHg [facility] pO2 Art 442(H) 85 - 104 mmHg [facility] HCO3 Art 26.5(H) 20.0 - 26.0 mmol/L [facility] BE Art 1.2 -3.0 - 3.0 mmol/L [facility] Hgb Blood Gas 12.4 11.7 - 15.5 gm/dL [facility] O2HB Art 98.9(H) 94.0 - 97.0 % [facility] COHB Art 0.3 % [facility] Comment: Nonsmokers: 0.5-1.5% COHB Smokers: Variable, but usually less than 10% Toxic: 20-30% COHB Lethal: Greater than 60% COHB METHB Art 0.3 <=1.5 % [facility] Na Whole Blood 168(Critic al) 135 - 145 mmol/L [facility] Comment:Noted by instrumental music teacher. K Whole Blood 4.1 3.5 - 5.0 mmol/L [facility] Comment: Please note: Patients with WBC >100,000 may have falsely elevated Potassium levels. Contact the Clinical Chemistry Laboratory if there are any questions. ICa Whole Blood 1.19 1.15 - 1.33 mmol/L [facility] Comment: Note: ??Total bilirubin higher than 20 mg/dL may lead to falsely low ionized calcium. CL Whole Blood 105 98 - 107 mmol/L [facility] Gluc Whole Bld 82 65 - 199 mg/dL [facility] Comment:Diabetes: >=200 mg/d L plus symptoms. Lactate WB 1.0 0.5 - 2.2 mmol/L [facility] Blood specimen (specimen) 05/25/2017 11:04 AM EST 05/25/2017 11:04 AM EST Bienvenido Wong MD CHEMISTRY ORDERABLES [facility] [place] [address] * Prepare Coag Factors (Non-Hemophilia) (05/25/2017 10:15 AM EST) Dispensed? Yes [facility] Blood specimen (specimen) 05/25/2017 10:15 AM EST 05/25/2017 10:12 AM EST Narrative Resulting Agency Comment Spec In Lab Kuldeep Conner MD BLOOD BANK PRODUCT ORDERABLES Performing Organization Address [facility] Co de Phone Number [facility] [place] [address] * Prepare RBC (05/25/2017 10:15 AM EST) Dispensed? Yes [facility] Blood specimen (specimen) 05/25/2017 10:15 AM EST 05/25/2017 10:12 AM EST Narrative Resulting Agency Comment Spec In Lab Kuldeep Conner MD BLOOD BANK PRODUCT ORDERABLES Performing Organization Address [facility] de Phone Number [facility] [place] [address] * Heparin, low molecular weight assay (05/25/2017 9:50 AM EST) [facility] Heparin Linp30d 0.38 IU/mL [facility] Comment: Guidelines for therapeutic unfractionated [...] APRN HEMATOLOGY ORDERA BLES Performing Organization Address [facility] Co de Phone Number [facility] [place] [address] * Urine Hold (05/25/2017 8:52 AM EST) Urine Hold Sample in lab. [facility] Urine specimen (specimen) Urine / Unknown 05/25/2017 8:52 AM EST 05/25/2017 9:19 AM EST Dereck Adams MD URINE ORDERABLES Performing Organization Address [facility] Co de Phone Number [facility] [place] [address] * Urine culture Clean Catch Urine (05/25/2017 7:59 AM EST) Urine Culture No growth (Less than 1,000 cfu/ml). [facility] Urine specimen obtained by clean catch procedure (specimen) 05/25/2017 7:59 AM EST 05/25/2017 9:23 AM EST Narrative Resulting Agency Comment Spec In Lab Bienvenido Wong MD MICROBIOLOGY - GENER AL ORDERABLES Performing Organization Address City/[facility]/ZIP Co de Phone Number [facility] [place] [address] * POCT Glucose (05/25/2017 7:47 AM EST) [facility] POC Glucose 97 65 - 199 mg/dL [facility] Comment: Supplemental ranges: <140 mg/dL before meals <180 mg/dL all other times of the day Blood specimen (specimen) 05/25/2017 7:47 AM EST 05/25/2017 7:47 AM EST Bienvenido Wong MD POINT OF CARE TEST O RDERABLES Performing Organization Address [facility] Co de Phone Number [facility] [place] [address] * Differential, Automated (05/25/2017 3:48 AM EST) [facility] Neutrophils % 61.9 % [facility] Neutr Abs (ANC) 3.56 1.70 - 6.10 x10(3)/[facility] Lymphocytes % 22.7 % [facility] Lymphocytes Abs 1.3 0.9 - 3.2 x10(3)/[facility] Monocytes % 9.0 % [facility] Monocyte Abs 0.5 0.3 - 0.9 x10(3)/[facility] Eosinophils % 5.6 % [facility] Eosinophils Abs 0.3 0.0 - 0.4 x10(3)/[facility] Basophils % 0.5 % [facility] Basophils Abs 0.0 0.0 - 0.1 x10(3)/[facility] Immature Gran % 0.30 % [facility] Comment: Immature granulocytes(IG's)percentage and absolute count will include metamyelocytes, myelocytes, and promyelocytes. Blood smears from CBCs yielding IG's will be scanned manually for concordance. If this scan disagrees with the automated IG or if promyelocytes are noted, a manual differential will be performed. [place] Gran Abs 0.02 0.00 - 0.04 x10(3)/[facility] Blood specimen (specimen) 05/25/2017 3:48 AM EST 05/25/2017 3:54 AM EST Narrative Resulting Agency Comment Spec In Lab Verónica Patrice Duong KEN HEMATOLOGY ORDERAB LES [facility] [place] [address] * (ABNORMAL) Hemogram (05/25/2017 3:48 AM EST) WBC 5.8 4.0 - 9.5 x10(3)/[facility] RBC 3.88(L) 4.00 - 5.21 x10(6)/[facility] Hemoglobin 12.4 11.7 - 15.5 gm/dL [facility] Hematocrit 35.8 35.7 - 45.8 % [facility] MCV 92.3 82.6 - 94.4 fL [facility] MCH 32.0 27.1 - 32.0 pg [facility] MCHC 34.6 31.7 - 35.0 gm/dL [facility] Platelets 158 145 - 357 x10(3)/[facility]ORY RDWSD 41.5 37.0 - 46.0 [facility] RDWCV 12.4 11.5 - 14.1 % [facility] MPV 10.4 7.6 - 12.9 [facility] nRBC % Auto 0.0 % [facility] nRBC Abs Auto 0.000 0.000 - 0.000 x10(3)/[facility] Blood specimen (specimen) 05/25/2017 3:48 AM EST 05/25/2017 3:54 AM EST Narrative Resulting Agency Comment Spec In Lab Verónica Watters LOCKSTITCH SLEEVE MAKER HEMATOLOGY ORDERAB LES [facility] [place] [address] * (ABNORMAL) BMP w/fasting Glucose (05/25/2017 3:48 AM EST) Glucose Fasting 98 65 - 99 mg/dL [facility] Comment: ?Fasting* Glucose Interpretive Criteria [...] of Diabetes Mellitus, Position Statement from the [place] [employer]. ??Diabetes Care, Volume 33, Supplement 1, Apr 2009 BUN 19(H) 8 - 18 mg/dL [facility] Creatinine 0.85 0.70 - 1.20 mg/dL [facility] Sodium 142 135 - 145 mmol/L [facility] Potassium 4.1 3.5 - 5.0 mmol/L [facility] Comment: Please note: ??Patients with WBC >100,000 may have falsely elevated Potassium levels. ??For accurate Potassium quantification in these patients send serum separator tube (gold top) for subsequent determinations. ??Contact the Clinical Chemistry Laboratory if there are any questions. Chloride 102 98 - 107 mmol/L [facility] CO2 25 22 - 31 mmol/L [facility] Anion Gap 15 5 - 15 mmol/L [facility] Calcium 9.0 8.5 - 10.5 mg/dL [facility] Estimated GFR >60 >=60 [facility] Comment: The reported eGFR should be multiplied by 1.2 for patients. The MDRD is not an appropriate measure of renal function for patients with body mass extremes or in patients with acute kidney failure. http://[employer]TonZof/DHnkdep http://Watsi/DHMCnkf Blood specimen (specimen) 05/25/2017 3:48 AM EST 05/25/2017 3:54 AM EST Narrative Resulting Agency Comment Spec In Lab Bienvenido Wong MD CHEMISTRY ORDERABLES [facility] [place] [address] * Heparin, low molecular weight assay (05/25/2017 3:48 AM EST) Heparin [id number] 0.47 IU/mL [facility] Comment: Guidelines for therapeutic unfractionated [...] Agency Comment Spec In Lab Verónica Patrice Dianesierralarissa SUELLEN HEMATOLOGY ORDERAB LES Performing Organization Address [facility]/ZIP Co de Phone Number [facility] [place] [address] * ABORH Recheck Status (05/24/2017 8:27 PM EST) ABORH Type Recheck Completed [facility] Blood specimen (specimen) 05/24/2017 8:27 PM EST 05/24/2017 8:54 PM EST Narrative Resulting Agency Comment Spec In Lab Verónica Watters APRN BLOOD BANK LAB ORD ERABLES Performing Organization Address [facility] Co de Phone Number [facility] [place] [place] [address] * Antibody screen (05/24/2017 8:27 PM EST) Ab Screen Interp Negative [facility] Expires at [id number] on: 05/27/2017 [facility] Blood specimen (specimen) 05/24/2017 8:27 PM EST 05/24/2017 8:54 PM EST Narrative Resulting Agency Comment Spec In Lab Verónica Watters [employer] BLOOD BANK LAB ORD ERABLES Performing Organization Address [facility] Co de Phone Number [facility] [place] [address] * ABO/Rh Typing (05/24/2017 8:27 PM EST) [facility] ABORH Type A Pos [facility] Blood specimen (specimen) 05/24/2017 8:27 PM EST 05/24/2017 8:54 PM EST Narrative Resulting Agency Comment Spec In Lab Verónica Watters [employer] BLOOD BANK LAB ORD ERABLES Performing Organization Address [facility] de Phone Number [facility] [place] [address] * Heparin, low molecular weight assay (05/24/2017 8:27 PM EST) [facility] Heparin [id number] 0.41 IU/mL [facility] Comment: Guidelines for therapeutic unfractionated [...] APRN HEMATOLOGY ORDERAB LES Performing Organization Address City/State/[facility] Co de Phone Number [facility] [place] [address] * Heparin, low molecular weight assay (05/24/2017 1:59 PM EST) Heparin [id number] 0.66 IU/mL [facility] Comment: Guidelines for therapeutic unfractionated [...] MD HEMATOLOGY ORDERABLE S Performing Organization Address [facility] de Phone Number [facility] [place] [address] * Gold Tube HOLD (05/24/2017 12:25 PM EST) [facility] Gold Hold Sample in lab. [facility] Blood specimen (specimen) No Charge / Unknown 05/24/2017 12:25 PM EST 05/24/2017 12:55 PM EST Bienvenido Wong MD CHEMISTRY ORDERABLES Performing Organization Address [facility] de Phone Number [facility] [place] [address] * (ABNORMAL) APTT (05/24/2017 10:46 AM EST) [facility] PTT 107(H) 25 - 35 sec [facility] Comment: The recommended therapeutic range for full dose, unfractionated heparin at [facility] is 80 ? 114 seconds. The use of the anti-Xa (heparin) level rather than the PTT is recommended for monitoring anticoagulation intensity in critically ill patients receiving unfractionated heparin by continuous IV infusion. Blood specimen (specimen) Venous Draw / Unknown 05/24/2017 10:46 AM EST 05/24/2017 11:09 AM EST Narrative Resulting Agency Comment Spec In Lab Verónica Watters APRN HEMATOLOGY ORDERAB LES [facility] [place] [address] * Differential, Automated (05/24/2017 3:58 AM EST) Neutrophils % 67.1 % [facility] Neutr Abs (ANC) 4.27 1.70 - 6.10 x10(3)/[facility] Lymphocytes % 20.8 % [facility] Lymphocytes Abs 1.3 0.9 - 3.2 x10(3)/[facility] Monocytes % 7.5 % [facility] Monocyte Abs 0.5 0.3 - 0.9 x10(3)/[facility] Eosinophils % 3.9 % [facility] Eosinophils Abs 0.2 0.0 - 0.4 x10(3)/[facility] Basophils % 0.5 % [facility] Basophils Abs 0.0 0.0 - 0.1 x10(3)/[facility] Immature Gran % 0.20 % [facility] Comment: Immature granulocytes(IG's)percentage and absolute count will include metamyelocytes, myelocytes, and promyelocytes. Blood smears from CBCs yielding IG's will be scanned manually for concordance. If this scan disagrees with the automated IG or if promyelocytes are noted, a manual differential will be performed. [place] Gran Abs 0.01 0.00 - 0.04 x10(3)/[facility] Blood specimen (specimen) 05/24/2017 3:58 AM EST 05/24/2017 4:07 AM EST Narrative Resulting Agency Comment Spec In Lab Melody Collins APRN HEMATOLOGY ORDERA BLES Performing Organization Address City/[facility] Co de Phone Number [facility] [place] [address] * (ABNORMAL) Hemogram (05/24/2017 3:58 AM EST) WBC 6.4 4.0 - 9.5 x10(3)/[facility] RBC 3.82(L) 4.00 - 5.21 x10(6)/[facility] Hemoglobin 12.5 11.7 - 15.5 gm/dL [facility] Hematocrit 35.0(L) 35.7 - 45.8 % [facility] MCV 91.6 82.6 - 94.4 fL [facility] MCH 32.7(H) 27.1 - 32.0 pg [facility] MCHC 35.7(H) 31.7 - 35.0 gm/dL [facility] Platelets 163 145 - 357 x10(3)/[facility] RDWSD 41.9 37.0 - 46.0 [facility] RDWCV 12.7 11.5 - 14.1 % [facility] MPV 11.2 7.6 - 12.9 [facility] nRBC % Auto 0.0 % [facility] nRBC Abs Auto 0.000 0.000 - 0.000 x10(3)/[facility] Blood specimen (specimen) 05/24/2017 3:58 AM EST 05/24/2017 4:07 AM EST Narrative Resulting Agency Comment Spec In Lab Melody Collins APRN HEMATOLOGY ORDERA BLES Performing Organization Address City/[facility] de Phone Number [facility] [place] [address] * (ABNORMAL) APTT (05/24/2017 3:58 AM EST) PTT 126(H) 25 - 35 sec [facility] Comment: The recommended therapeutic range for full dose, unfractionated heparin at [facility] is 80 ? 114 seconds. The use of the anti-Xa (heparin) level rather than the PTT is recommended for monitoring anticoagulation intensity in critically ill patients receiving unfractionated heparin by continuous IV infusion. Blood specimen (specimen) 05/24/2017 3:58 AM EST 05/24/2017 4:07 AM EST Narrative Resulting Agency Comment Spec In Lab Bienvenido Wong MD HEMATOLOGY ORDERABLE S Performing Organization Address [facility] de Phone Number [facility] [place] [address] * BMP w/fasting Glucose (05/24/2017 3:58 AM EST) Glucose Fasting 93 65 - 99 mg/dL [facility] Comment: ?Fasting* Glucose Interpretive Criteria [...] of Diabetes Mellitus, Position Statement from the [place] [employer]. ??Diabetes Care, Volume 33, Supplement 1, Apr 2009 BUN 18 8 - 18 mg/dL [facility] Creatinine 0.86 0.70 - 1.20 mg/dL [facility] Sodium 141 135 - 145 mmol/L [facility] Potassium 4.3 3.5 - 5.0 mmol/L [facility] Comment: Please note: ??Patients with WBC >100,000 may have falsely elevated Potassium levels. ??For accurate Potassium quantification in these patients send serum separator tube (gold top) for subsequent determinations. ??Contact the Clinical Chemistry Laboratory if there are any questions. Chloride 103 98 - 107 mmol/L [facility] CO2 25 22 - 31 mmol/L [facility] Anion Gap 13 5 - 15 mmol/L [facility] Calcium 9.4 8.5 - 10.5 mg/dL [facility] Estimated GFR >60 >=60 [facility] Comment: The reported eGFR should be multiplied by 1.2 for patients. The MDRD is not an appropriate measure of renal function for patients with body mass extremes or in patients with acute kidney failure. http://Watsi/DHnkdep http://Watsi/[facility] Blood specimen (specimen) 05/24/2017 3:58 AM EST 05/24/2017 4:07 AM EST Narrative Resulting Agency Comment Spec In Lab Bienvenido Wong MD CHEMISTRY ORDERABLES Performing Organization Address [facility] Co de Phone Number [facility] [place] [address] * (ABNORMAL) APTT (05/23/2017 7:36 PM EST) PTT 122(H) 25 - 35 sec [facility] Comment: The recommended therapeutic range for full dose, unfractionated heparin at [facility] is 80 ? 114 seconds. The use of the anti-Xa (heparin) level rather than the PTT is recommended for monitoring anticoagulation intensity in critically ill patients receiving unfractionated heparin by continuous IV infusion. Blood specimen (specimen) 05/23/2017 7:36 PM EST 05/23/2017 7:54 PM EST Narrative Resulting Agency Comment Spec In Lab Bienvenido Wong MD HEMATOLOGY ORDERABLE S Performing Organization Address City/[facility]/ZIP Co de Phone Number [facility] [place] [address] * (ABNORMAL) APTT (05/23/2017 1:33 PM EST) PTT 111(H) 25 - 35 sec [facility] Comment: The recommended therapeutic range for full dose, unfractionated heparin at [facility] is 80 ? 114 seconds. The use of the anti-Xa (heparin) level rather than the PTT is recommended for monitoring anticoagulation intensity in critically ill patients receiving unfractionated heparin by continuous IV infusion. Blood specimen (specimen) 05/23/2017 1:33 PM EST 05/23/2017 1:47 PM EST Narrative Resulting Agency Comment Spec In Lab Bienvenido Wong MD HEMATOLOGY ORDERABLE S Performing Organization Address [facility] Co de Phone Number [facility] [place] [address] * (ABNORMAL) APTT (05/23/2017 6:54 AM EST) PTT 126(H) 25 - 35 sec [facility] Comment: The recommended therapeutic range for full dose, unfractionated heparin at [facility] is 80 ? 114 seconds. The use of the anti-Xa (heparin) level rather than the PTT is recommended for monitoring anticoagulation intensity in critically ill patients receiving unfractionated heparin by continuous IV infusion. Blood specimen (specimen) 05/23/2017 6:54 AM EST 05/23/2017 7:15 AM EST Narrative Resulting Agency Comment Spec In Lab Bienvenido Wong MD HEMATOLOGY ORDERABLE S Performing Organization Address [facility] Co de Phone Number [facility] [place] [address] * Differential, Automated (05/23/2017 12:50 AM EST) Neutrophils % 63.0 % [facility] Neutr Abs (ANC) 4.70 1.70 - 6.10 x10(3)/mcL [facility] Lymphocytes % 22.3 % [facility] Lymphocytes Abs 1.7 0.9 - 3.2 x10(3)/[facility] Monocytes % 9.2 % [facility] Monocyte Abs 0.7 0.3 - 0.9 x10(3)/[facility] Eosinophils % 4.7 % [facility] Eosinophils Abs 0.4 0.0 - 0.4 x10(3)/[facility] Basophils % 0.5 % [facility] Basophils Abs 0.0 0.0 - 0.1 x10(3)/[facility] Immature Gran % 0.30 % [facility] Comment: Immature granulocytes(IG's)percentage and absolute count will include metamyelocytes, myelocytes, and promyelocytes. Blood smears from CBCs yielding IG's will be scanned manually for concordance. If this scan disagrees with the automated IG or if promyelocytes are noted, a manual differential will be performed. [place] Gran Abs 0.02 0.00 - 0.04 x10(3)/[facility] Blood specimen (specimen) 05/23/2017 12:50 AM EST 05/23/2017 1:10 AM EST Narrative Resulting Agency Comment Spec In Lab Melody Collins APRN HEMATOLOGY ORDERA BLES [facility] [place] [address] * (ABNORMAL) Hemogram (05/23/2017 12:50 AM EST) WBC 7.5 4.0 - 9.5 x10(3)/[facility] RBC 3.78(L) 4.00 - 5.21 x10(6)/[facility] Hemoglobin 12.4 11.7 - 15.5 gm/dL [facility] Hematocrit 34.9(L) 35.7 - 45.8 % [facility] MCV 92.3 82.6 - 94.4 fL [facility] MCH 32.8(H) 27.1 - 32.0 pg [facility] MCHC 35.5(H) 31.7 - 35.0 gm/dL [facility] Platelets 163 145 - 357 x10(3)/[facility] RDWSD 42.5 37.0 - 46.0 fL [facility] RDWCV 12.6 11.5 - 14.1 % [facility] MPV 11.3 7.6 - 12.9 fL [facility] nRBC % Auto 0.0 % [facility] nRBC Abs Auto 0.000 0.000 - 0.000 x10(3)/[facility] Blood specimen (specimen) 05/23/2017 12:50 AM EST 05/23/2017 1:10 AM EST Narrative Resulting Agency Comment Spec In Lab Melody Collins APRN HEMATOLOGY ORDERA BLES [facility] [place] [address] * (ABNORMAL) Basic Metabolic Panel (non-fasting) (05/23/2017 12:50 AM EST) Glucose Lvl 101 65 - 199 mg/dL [facility] Comment:Diabetes: >=200 mg/d L plus symptoms BUN 22(H) 8 - 18 mg/dL [facility] Creatinine 0.83 0.70 - 1.20 mg/dL [facility] Sodium 141 135 - 145 mmol/L [facility] Potassium 4.0 3.5 - 5.0 mmol/L [facility] Comment: Please note: ??Patients with WBC >100,000 may have falsely elevated Potassium levels. ??For accurate Potassium quantification in these patients send serum separator tube (gold top) for subsequent determinations. ??Contact the Clinical Chemistry Laboratory if there are any questions. Chloride 102 98 - 107 mmol/L [facility] CO2 26 22 - 31 mmol/L [facility] Anion Gap 13 5 - 15 mmol/L [facility] Calcium 8.8 8.5 - 10.5 mg/dL [facility] Estimated GFR >60 >=60 [facility] Comment: The reported eGFR should be multiplied by 1.2 for patients. The MDRD is not an appropriate measure of renal function for patients with body mass extremes or in patients with acute kidney failure. http://Watsi/DHnkdep http://Watsi/MCnkf Blood specimen (specimen) 05/23/2017 12:50 AM EST 05/23/2017 1:10 AM EST Narrative Resulting Agency Comment Spec In Lab Bienvenido Wong MD CHEMISTRY ORDERABLES Performing Organization Address [facility] Co de Phone Number [facility] [place] [address] * (ABNORMAL) APTT (05/23/2017 12:50 AM EST) PTT 95(H) 25 - 35 sec [facility] Comment: The recommended therapeutic range for full dose, unfractionated heparin at [facility] is 80 ? 114 seconds. The use of the anti-Xa (heparin) level rather than the PTT is recommended for monitoring anticoagulation intensity in critically ill patients receiving unfractionated heparin by continuous IV infusion. Blood specimen (specimen) 05/23/2017 12:50 AM EST 05/23/2017 1:10 AM EST Narrative Resulting Agency Comment Spec In Lab Bienvenido Wong MD HEMATOLOGY ORDERABLE S Performing Organization Address [facility] Co de Phone Number [facility] [place] [address] * (ABNORMAL) Prothrombin Time (05/23/2017 12:50 AM EST) PT 14.7(H) 11.8 - 14.0 sec [facility] INR 1.2(H) 0.9 - 1.[address] [facility] Comment: An INR <2.0 indicates [...] APRN HEMATOLOGY ORDERA BLES Performing Organization Address [facility] Co de Phone Number [facility] [place] [address] * (ABNORMAL) APTT (05/22/2017 7:27 PM EST) PTT 76(H) 25 - 35 sec [facility] Comment: The recommended therapeutic range for full dose, unfractionated heparin at [facility] is 80 ? 114 seconds. The use of the anti-Xa (heparin) level rather than the PTT is recommended for monitoring anticoagulation intensity in critically ill patients receiving unfractionated heparin by continuous IV infusion. Blood specimen (specimen) 05/22/2017 7:27 PM EST 05/22/2017 7:54 PM EST Narrative Resulting Agency Comment Spec In Lab Bienvenido Wong MD HEMATOLOGY ORDERABLE S Performing Organization Address [facility] Co de Phone Number [facility] [place] [address] * (ABNORMAL) Urinalysis Microscopic Exam (05/22/2017 3:14 PM EST) RBC UA 158(H) 0 - 4 /HPF [facility] WBC UA 2 0 - 5 /HPF [facility] Bacteria UA Many(A) None /HPF [facility] Squam Epith UA 1 <=4 /HPF [facility] Trans Epith UA 1 <=1 /HPF [facility] Urine specimen obtained by clean catch procedure (specimen) 05/22/2017 3:14 PM EST 05/22/2017 3:27 PM EST Narrative Resulting Agency Comment Spec In Lab Vikki GONZALES URINE ORDERABLES Performing Organization Address [facility]/ZIP Co de Phone Number [facility] [place] [address] * Urine Hold (05/22/2017 3:14 PM EST) Urine Hold Sample in lab. [facility] Urine specimen (specimen) Urine / Unknown 05/22/2017 3:14 PM EST 05/22/2017 3:27 PM EST Vikki GONZALES URINE ORDERABLES Performing Organization Address [facility] de Phone Number [facility] [place] [address] * (ABNORMAL) Urinalysis with reflex Culture (05/22/2017 3:14 PM EST) Glucose UA Negative Negative mg/dL [facility] Protein UA 30(A) Negative mg/dL [facility] Bilirubin UA Negative Negative mg/dL [facility] Comment: Clinical correlation required for positive Urine Bilirubin results as false positive may occur with some drugs and drug related products. If a false positive is suspected a serum total bilirubin should be considered if clinically indicated. Urobilinogen UA Normal Normal mg/dL [facility] pH UA 6.0 5.0 - 8.0 [facility] Blood UA Large(A) Negative mg/dL [facility] Ketones UA Negative Negative mg/dL [facility] Nitrite UA Negative Negative [facility] Leukocytes UA Negative Negative mcL [facility] Appearance UA Cloudy(A) Clear [facility] Spec [place] UA 1.010 1.002 - 1.030 [facility] Color UA Yellow Yellow [facility] Culture Reflexed No [facility] Urine specimen obtained by clean catch procedure (specimen) 05/22/2017 3:14 PM EST 05/22/2017 3:27 PM EST Narrative Resulting Agency Comment Spec In Lab Bienvenido Wong MD URINE ORDERABLES Performing Organization Address [facility] Co de Phone Number [facility] [place] [address] * (ABNORMAL) APTT (05/22/2017 12:55 PM EST) PTT 133(Criti mary) 25 - 35 sec [facility] Comment: Called by: tml, Read back by: jennifer garcia rn, Date/Time:05/22/17 13:29. The recommended therapeutic range for full dose, unfractionated heparin at [facility] is 80 ? 114 seconds. The use of the anti-Xa (heparin) level rather than the PTT is recommended for monitoring anticoagulation intensity in critically ill patients receiving unfractionated heparin by continuous IV infusion. Blood specimen (specimen) 05/22/2017 12:55 PM EST 05/22/2017 1:13 PM EST Narrative Resulting Agency Comment Spec In Lab Bienvenido Wong MD HEMATOLOGY ORDERABLE S Performing Organization Address [facility] Co de Phone Number [facility] [place] [address] * EKG 12 Lead (05/22/2017 7:48 AM EST) Ventricular rate 65 BPM MUSE SYSTEM Atrial Rate 65 BPM MUSE SYSTEM P-R Interval 166 ms MUSE SYSTEM QRS Duration 108 ms MUSE SYSTEM Q-T Interval 454 ms MUSE SYSTEM QTC Calculated (Bezet) 472 ms MUSE SYSTEM Calculated P [place] 17 degrees MUSE SYSTEM Calculated R [place] -2 degrees MUSE SYSTEM Calculated T [place] 5 degrees MUSE SYSTEM INTERPRETATION Normal sinus rhythm Possible Left atrial enlargement Left ventricular hypertrophy Possible Inferior infarct (cited on or before 19-MAY-2017) T wave abnormality, consider inferior ischemia Abnormal ECG When compared with ECG of 21-MAY-2017 07:11, No significant change was found I personally reviewed the tracing and edited the fellows interpretation Confirmed by fellow MD Rhonda, Chloé Jose Roberto ([id number]) on 05/22/2017 10:57:59 AM Confirmed by MD Gudelia, Valdo ([id number]) on 05/23/2017 5:01:21 PM MUSE SYSTEM 05/22/2017 7:48 AM EST 05/23/2017 5:01 PM EST Melody Arturo Collins APRN ECG ORDERABLES MUSE SYSTEM * Basic Metabolic Panel (non-fasting) (05/22/2017 5:46 AM EST) Glucose Lvl 91 65 - 199 mg/dL [facility] Comment:Diabetes: >=200 mg/d L plus symptoms BUN 18 8 - 18 mg/dL [facility] Creatinine 0.90 0.70 - 1.20 mg/dL [facility] Sodium 143 135 - 145 mmol/L [facility] Potassium 4.5 3.5 - 5.0 mmol/L [facility] Comment: Please note: ??Patients with WBC >100,000 may have falsely elevated Potassium levels. ??For accurate Potassium quantification in these patients send serum separator tube (gold top) for subsequent determinations. ??Contact the Clinical Chemistry Laboratory if there are any questions. Chloride 103 98 - 107 mmol/L [facility] CO2 25 22 - 31 mmol/L [facility] Anion Gap 15 5 - 15 mmol/L [facility] Calcium 8.9 8.5 - 10.5 mg/dL [facility] Estimated GFR >60 >=60 [facility] Comment: The reported eGFR should be multiplied by 1.2 for patients. The MDRD is not an appropriate measure of renal function for patients with body mass extremes or in patients with acute kidney failure. http://[employer].TonZof/DHnkdep http://Watsi/DHMCnkf Blood specimen (specimen) 05/22/2017 5:46 AM EST 05/22/2017 6:05 AM EST Narrative Resulting Agency Comment Spec In Lab Bienvenido oWng MD CHEMISTRY ORDERABLES Performing Organization Address [facility] Co de Phone Number [facility] [place] [address] * (ABNORMAL) APTT (05/22/2017 5:46 AM EST) Pathologist [facility] PTT 67(H) 25 - 35 sec [facility] Comment: The recommended therapeutic range for full dose, unfractionated heparin at [facility] is 80 ? 114 seconds. The use of the anti-Xa (heparin) level rather than the PTT is recommended for monitoring anticoagulation intensity in critically ill patients receiving unfractionated heparin by continuous IV infusion. Blood specimen (specimen) 05/22/2017 5:46 AM EST 05/22/2017 6:05 AM EST Narrative Resulting Agency Comment Spec In Lab Melody Collins APRN HEMATOLOGY ORDERA BLES Performing Organization Address [facility] Co de Phone Number [facility] [place] [address] * Differential, Automated (05/22/2017 5:46 AM EST) [facility] Neutrophils % 71.2 % [facility] Neutr Abs (ANC) 5.69 1.70 - 6.10 x10(3)/[facility] Lymphocytes % 16.7 % [facility] Lymphocytes Abs 1.3 0.9 - 3.2 x10(3)/[facility] Monocytes % 7.4 % [facility] Monocyte Abs 0.6 0.3 - 0.9 x10(3)/[facility] Eosinophils % 3.9 % [facility] Eosinophils Abs 0.3 0.0 - 0.4 x10(3)/[facility] Basophils % 0.5 % [facility] Basophils Abs 0.0 0.0 - 0.1 x10(3)/[facility] Immature Gran % 0.30 % [facility] Comment: Immature granulocytes(IG's)percentage and absolute count will include metamyelocytes, myelocytes, and promyelocytes. Blood smears from CBCs yielding IG's will be scanned manually for concordance. If this scan disagrees with the automated IG or if promyelocytes are noted, a manual differential will be performed. [place] Gran Abs 0.02 0.00 - 0.04 x10(3)/[facility] Blood specimen (specimen) 05/22/2017 5:46 AM EST 05/22/2017 6:05 AM EST Narrative Resulting Agency Comment Spec In Lab Melody Collins APRN HEMATOLOGY ORDERA BLES [facility] [place] [address] * (ABNORMAL) Hemogram (05/22/2017 5:46 AM EST) WBC 8.0 4.0 - 9.5 x10(3)/[facility] RBC 3.98(L) 4.00 - 5.21 x10(6)/[facility] Hemoglobin 13.0 11.7 - 15.5 gm/dL [facility] Hematocrit 36.4 35.7 - 45.8 % [facility] MCV 91.5 82.6 - 94.4 fL [facility] MCH 32.7(H) 27.1 - 32.0 pg [facility] MCHC 35.7(H) 31.7 - 35.0 gm/dL [facility] Platelets 168 145 - 357 x10(3)/[facility] RDWSD 41.9 37.0 - 46.0 fL [facility] RDWCV 12.4 11.5 - 14.1 % [facility] MPV 11.1 7.6 - 12.9 fL [facility] nRBC % Auto 0.0 % [facility] nRBC Abs Auto 0.000 0.000 - 0.000 x10(3)/mcL [facility] Blood specimen (specimen) 05/22/2017 5:46 AM EST 05/22/2017 6:05 AM EST Narrative Resulting Agency Comment Spec In Lab Melody Collins APRN HEMATOLOGY ORDERA BLES Performing Organization Address [facility] de Phone Number [facility] [place] [address] * (ABNORMAL) Prothrombin Time (05/22/2017 5:46 AM EST) PT 14.7(H) 11.8 - 14.0 sec [facility] INR 1.2(H) 0.9 - 1.1 [facility] Comment: An INR <2.0 indicates [...] SUELLEN HEMATOLOGY ORDERA BLES Performing Organization Address [facility] Co de Phone Number [facility] [place] [address] * EKG 12 Lead (05/21/2017 7:11 AM EST) Ventricular rate 62 BPM MUSE SYSTEM Atrial Rate 62 BPM MUSE SYSTEM P-R Interval 168 ms MUSE SYSTEM QRS Duration 108 ms MUSE SYSTEM Q-T Interval 442 ms MUSE SYSTEM QTC Calculated (Bezet) 448 ms MUSE SYSTEM Calculated P [place] 14 degrees MUSE SYSTEM Calculated T [place] -5 degrees MUSE SYSTEM INTERPRETATION Normal sinus [...] interpretation Confirmed by fellow MD Kathy, Zhang ([id number]) on 05/21/2017 10:33:48 AM Confirmed by MD Gudelia, Valdo ([id number]) on 05/21/2017 3:36:10 PM MUSE SYSTEM 05/21/2017 7:11 AM EST 05/21/2017 3:36 PM EST Melody Collins APRN ECG ORDERABLES Performing Organization Address City/[facility]/ZIP Co de Phone Number MUSE SYSTEM * (ABNORMAL) APTT (05/21/2017 3:53 AM EST) PTT 92(H) 25 - 35 sec [facility] Comment: The recommended therapeutic range for full dose, unfractionated heparin at [facility] is 80 ? 114 seconds. The use of the anti-Xa (heparin) level rather than the PTT is recommended for monitoring anticoagulation intensity in critically ill patients receiving unfractionated heparin by continuous IV infusion. Blood specimen (specimen) 05/21/2017 3:53 AM EST 05/21/2017 4:08 AM EST Narrative Resulting Agency Comment Spec In Lab Melody Collins APRN HEMATOLOGY ORDERA BLES Performing Organization Address City/[facility]/ZIP Co de Phone Number [facility] [place] [address] * Differential, Automated (05/21/2017 3:53 AM EST) Neutrophils % 58.1 % [facility] Neutr Abs (ANC) 3.20 1.70 - 6.10 x10(3)/[facility] Lymphocytes % 26.3 % [facility] Lymphocytes Abs 1.4 0.9 - 3.2 x10(3)/[facility] Monocytes % 9.8 % [facility] Monocyte Abs 0.5 0.3 - 0.9 x10(3)/[facility] Eosinophils % 4.7 % [facility] Eosinophils Abs 0.3 0.0 - 0.4 x10(3)/[facility] Basophils % 0.9 % [facility] Basophils Abs 0.0 0.0 - 0.1 x10(3)/[facility] Immature Gran % 0.20 % [facility] Comment: Immature granulocytes(IG's)percentage and absolute count will include metamyelocytes, myelocytes, and promyelocytes. Blood smears from CBCs yielding IG's will be scanned manually for concordance. If this scan disagrees with the automated IG or if promyelocytes are noted, a manual differential will be performed. [place] Gran Abs 0.01 0.00 - 0.04 x10(3)/[facility] Blood specimen (specimen) 05/21/2017 3:53 AM EST 05/21/2017 4:08 AM EST Narrative Resulting Agency Comment Spec In Lab Melody Collins APRN HEMATOLOGY ORDERA BLES [facility] [place] [address] * (ABNORMAL) Hemogram (05/21/2017 3:53 AM EST) WBC 5.5 4.0 - 9.5 x10(3)/[facility] RBC 4.15 4.00 - 5.21 x10(6)/[facility] Hemoglobin 13.5 11.7 - 15.5 gm/dL [facility] Hematocrit 38.2 35.7 - 45.8 % [facility] MCV 92.0 82.6 - 94.4 fL [facility] MCH 32.5(H) 27.1 - 32.0 pg [facility] MCHC 35.3(H) 31.7 - 35.0 gm/dL [facility] Platelets 167 145 - 357 x10(3)/[facility] RDWSD 42.9 37.0 - 46.0 fL [facility] RDWCV 12.6 11.5 - 14.1 % [facility] MPV 10.6 7.6 - 12.9 fL [facility] nRBC % Auto 0.0 % [facility] nRBC Abs Auto 0.000 0.000 - 0.000 x10(3)/[facility] Blood specimen (specimen) 05/21/2017 3:53 AM EST 05/21/2017 4:08 AM EST Narrative Resulting Agency Comment Spec In Lab Melody Arturo Dennis KEN HEMATOLOGY ORDERA BLES Performing Organization Address [facility] de Phone Number [facility] [place] [address] * (ABNORMAL) Prothrombin Time (05/21/2017 3:53 AM EST) PT 17.2(H) 11.8 - 14.0 sec [facility] INR 1.4(H) 0.9 - 1.1 [facility] Comment: An INR <2.0 indicates [...] APRN HEMATOLOGY ORDERA BLES Performing Organization Address [facility] Co de Phone Number [facility] [place] [address] * (ABNORMAL) BMP w/fasting Glucose (05/21/2017 3:53 AM EST) Glucose Fasting 95 65 - 99 mg/dL [facility] Comment: ?Fasting* Glucose Interpretive Criteria [...] of Diabetes Mellitus, Position Statement from the [place] [employer]. ??Diabetes Care, Volume 33, Supplement 1, Apr 2009 BUN 19(H) 8 - 18 mg/dL [facility] Creatinine 0.75 0.70 - 1.20 mg/dL [facility] Sodium 140 135 - 145 mmol/L [facility] Potassium 4.3 3.5 - 5.0 mmol/L [facility] Comment: Please note: ??Patients with WBC >100,000 may have falsely elevated Potassium levels. ??For accurate Potassium quantification in these patients send serum separator tube (gold top) for subsequent determinations. ??Contact the Clinical Chemistry Laboratory if there are any questions. Chloride 102 98 - 107 mmol/L [facility] CO2 26 22 - 31 mmol/L [facility] Anion Gap 12 5 - 15 mmol/L [facility] Calcium 9.1 8.5 - 10.5 mg/dL [facility] Estimated GFR >60 >=60 [facility] Comment: The reported eGFR should be multiplied by 1.2 for patients. The MDRD is not an appropriate measure of renal function for patients with body mass extremes or in patients with acute kidney failure. http://[employer]TonZof/DHnkdep http://Watsi/DHMCnkf Blood specimen (specimen) 05/21/2017 3:53 AM EST 05/21/2017 4:08 AM EST Narrative Resulting Agency Comment Spec In Lab Melody Collins APRN CHEMISTRY ORDERAB LES Performing Organization Address City/[facility]/ZIP Co de Phone Number [facility] [place] [address] * (ABNORMAL) APTT (05/20/2017 10:00 PM EST) Pathologist [facility] PTT 86(H) 25 - 35 sec [facility] Comment: The recommended therapeutic range for full dose, unfractionated heparin at [facility] is 80 ? 114 seconds. The use of the anti-Xa (heparin) level rather than the PTT is recommended for monitoring anticoagulation intensity in critically ill patients receiving unfractionated heparin by continuous IV infusion. Blood specimen (specimen) 05/20/2017 10:00 PM EST 05/20/2017 10:06 PM EST Narrative Resulting Agency Comment Spec In Lab Jeff Hernadez MD HEMATOLOGY ORDERABLE S Performing Organization Address [facility] Co de Phone Number [facility] [place] [address] * (ABNORMAL) Point of Care Blood Gas Historical (05/20/2017 10:58 AM EST) [facility] POC pH 7.39 7.35 - 7.45 [facility] POC PCO2 43 35 - 45 mmHg [facility] POC PO2 61(L) 85 - 104 mmHg [facility] POC Base Excess 1.0 -3.0 - 3.0 mmol/L [facility] POC HCO3 25.8 20.0 - 26.0 mmol/L [facility] POC Sodium 139 135 - 145 mmol/L [facility] POC Potassium 4.2 3.5 - 5.0 mmol/L [facility] POC Ionized Ca 1.22 1.15 - 1.33 mmol/L [facility] POC Hematocrit 32.0(L) 34.0 - 45.0 % [facility] POC Calc Hgb 10.9(L) 11.2 - 15.7 gm/dL [facility] Comment:The calculation of h emoglobin from hematocrit assumes a normal MCHC. POC Bgas Loc CC LAB [facility] Blood specimen (specimen) 05/20/2017 10:58 AM EST 05/25/2017 8:52 AM EST Bienvenido Wong MD CHEMISTRY ORDERABLES Performing Organization Address [facility] Co de Phone Number [facility] [place] [address] * CARDIAC CATHETERIZATION (05/20/2017 10:07 AM EST) Anatomical Region Laterality Modality Other Narrative 05/21/2017 2:36 AM EST ?[facility] ? Cardiac Catheterization/Intervention Report ? Patient Name: Noah Dumont. ? Procedure Date: 05/20/2017 ? A #: [id number] ? Primary Physician: Phuong Ortiz ? Case #: [id number] ? File Name: [id number] ? Catheterization Order Number: [id number] ? [facility] ? Final Report [place], [place] ? Patient Name: ? Noah M. [place] ? ID#: ?[id number] ? : ?1970 ? Procedure Date: ? [...] unlikely to be ischemic (w/i 14 ?days). [place] [employer] angina class was III. No [...] Procedure Note Phuong Ortiz MD - 07/27/2017 [facility] Cardiac Catheterization/Intervention Report Patient Name: Noah DumontNorberto Procedure Date: 05/20/2017 A #: [id number] Primary Physician: Phuong Ortiz Case #: [id number] File Name: [id number] Catheterization Order Number: [id number] [facility] FinalReport [place], [place] Patient Name: Noah Dumont ID#:[id number] :1970 Procedure Date: May 20, 2017 Case [...] unlikely to be ischemic (w/i 14 days). [place] [employer] angina class was III. Nostress [...] 12.1 minutes, dose area product was 25,801 [id number] air kerma was 366 mGY. The patient [...] 05:25 Phuong Ortiz MD CARDIAC CATH ROLAND AMRO * EKG 12 Lead (05/20/2017 7:07 AM EST) Ventricular rate 59 BPM MUSE SYSTEM Atrial Rate 59 BPM MUSE SYSTEM P-R Interval 162 ms MUSE SYSTEM QRS Duration 108 ms MUSE SYSTEM Q-T Interval 470 ms MUSE SYSTEM QTC Calculated (Bezet) 465 ms MUSE SYSTEM Calculated P [place] 15 degrees MUSE SYSTEM Calculated R [place] 2 degrees MUSE SYSTEM Calculated T [place] -4 degrees MUSE SYSTEM INTERPRETATION Sinus bradycardia Voltage criteria for left ventricular hypertrophy T wave abnormality, consider inferior ischemia Cannot rule out Inferior infarct (cited on or before 19-MAY-2017 Abnormal ECG When compared with ECG of 19-MAY-2017 17:20, (unconfirmed) No significant change was found I personally reviewed the tracing and edited the fellows interpretation Confirmed by fellow MD Rhonda, Chloé Cid ([id number]) on 05/20/2017 10:44:38 AM Confirmed by MD Galeas Jon ([id number]) on 05/20/2017 4:16:12 PM MUSE SYSTEM 05/20/2017 7:07 AM EST 05/20/2017 4:16 PM EST Melody Morris Dennis KEN ECG ORDERABLES MUSE SYSTEM * Differential, Automated (05/20/2017 5:13 AM EST) Neutrophils % 53.8 % [facility] Neutr Abs (ANC) 3.22 1.70 - 6.10 x10(3)/[facility] Lymphocytes % 29.2 % [facility] Lymphocytes Abs 1.8 0.9 - 3.2 x10(3)/[facility] Monocytes % 10.9 % [facility] Monocyte Abs 0.6 0.3 - 0.9 x10(3)/[facility] Eosinophils % 4.8 % [facility] Eosinophils Abs 0.3 0.0 - 0.4 x10(3)/[facility] Basophils % 1.0 % [facility] Basophils Abs 0.1 0.0 - 0.1 x10(3)/[facility] Immature Gran % 0.30 % [facility] Comment: Immature granulocytes(IG's)percentage and absolute count will include metamyelocytes, myelocytes, and promyelocytes. Blood smears from CBCs yielding IG's will be scanned manually for concordance. If this scan disagrees with the automated IG or if promyelocytes are noted, a manual differential will be performed. [place] Gran Abs 0.02 0.00 - 0.04 x10(3)/[facility] Blood specimen (specimen) 05/20/2017 5:13 AM EST 05/20/2017 5:47 AM EST Narrative Resulting Agency Comment Spec In Lab Melody Collins APRN HEMATOLOGY ORDERA BLES [facility] [place] [address] * (ABNORMAL) Hemogram (05/20/2017 5:13 AM EST) WBC 6.0 4.0 - 9.5 x10(3)/[facility] RBC 4.39 4.00 - 5.21 x10(6)/[facility] Hemoglobin 14.1 11.7 - 15.5 gm/dL [facility] Hematocrit 40.3 35.7 - 45.8 % [facility] MCV 91.8 82.6 - 94.4 [facility] MCH 32.1(H) 27.1 - 32.0 pg [facility] MCHC 35.0 31.7 - 35.0 gm/dL [facility] Platelets 180 145 - 357 x10(3)/[facility] RDWSD 42.5 37.0 - 46.0 [facility] RDWCV 12.5 11.5 - 14.1 % [facility] MPV 11.0 7.6 - 12.9 [facility] nRBC % Auto 0.0 % [facility] nRBC Abs Auto 0.000 0.000 - 0.000 x10(3)/[facility] Blood specimen (specimen) 05/20/2017 5:13 AM EST 05/20/2017 5:47 AM EST Narrative Resulting Agency Comment Spec In Lab Melody Collins APRN HEMATOLOGY ORDERA BLES [facility] [place] [address] * (ABNORMAL) APTT (05/20/2017 5:13 AM EST) PTT 82(H) 25 - 35 sec [facility] Comment: The recommended therapeutic range for full dose, unfractionated heparin at [facility] is 80 ? 114 seconds. The use of the anti-Xa (heparin) level rather than the PTT is recommended for monitoring anticoagulation intensity in critically ill patients receiving unfractionated heparin by continuous IV infusion. Blood specimen (specimen) 05/20/2017 5:13 AM EST 05/20/2017 5:47 AM EST Narrative Resulting Agency Comment Spec In Lab Melody Collins APRN HEMATOLOGY ORDERA BLES Performing Organization Address [facility] Co de Phone Number [facility] [place] [address] * (ABNORMAL) Prothrombin Time (05/20/2017 5:13 AM EST) Pathologist [facility] PT 20.1(H) 11.8 - 14.0 sec [facility] INR 1.7(H) 0.9 - 1.[address] [facility] Comment: An INR <2.0 indicates [...] APRN HEMATOLOGY ORDERA BLES Performing Organization Address [facility]/ZIP Co de Phone Number [facility] [place] [address] * (ABNORMAL) BMP w/fasting Glucose (05/20/2017 5:13 AM EST) Glucose Fasting 91 65 - 99 mg/dL [facility] Comment: ?Fasting* Glucose Interpretive Criteria [...] of Diabetes Mellitus, Position Statement from the [place] [employer]. ??Diabetes Care, Volume 33, Supplement 1, Apr 2009 BUN 22(H) 8 - 18 mg/dL [facility] Creatinine 1.00 0.70 - 1.20 mg/dL [facility] Sodium 141 135 - 145 mmol/L [facility] Potassium 4.1 3.5 - 5.0 mmol/L [facility] Comment: Please note: ??Patients with WBC >100,000 may have falsely elevated Potassium levels. ??For accurate Potassium quantification in these patients send serum separator tube (gold top) for subsequent determinations. ??Contact the Clinical Chemistry Laboratory if there are any questions. Chloride 100 98 - 107 mmol/L [facility] CO2 27 22 - 31 mmol/L [facility] Anion Gap 14 5 - 15 mmol/L [facility] Calcium 9.7 8.5 - 10.5 mg/dL [facility] Estimated GFR 60 >=60 [facility] Comment: The reported eGFR should be multiplied by 1.2 for patients. The MDRD is not an appropriate measure of renal function for patients with body mass extremes or in patients with acute kidney failure. http://[employer]TonZof/DHnkdep http://Watsi/DHMCnkf Blood specimen (specimen) 05/20/2017 5:13 AM EST 05/20/2017 5:47 AM EST Narrative Resulting Agency Comment Spec In Lab Melody Collins SUELLEN CHEMISTRY ORDERAB LES Performing Organization Address [facility] Co de Phone Number [facility] [place] [address] * (ABNORMAL) APTT (05/19/2017 9:54 PM EST) [facility] PTT >160.0(Cr itical) 25 - 35 [facility] Comment: Called by: harriet, Read back by: Afsaneh Hill, Date/Time:05/19/17 22:32. The recommended therapeutic range for full dose, unfractionated heparin at [facility] is 80 ? 114 seconds. The use of the anti-Xa (heparin) level rather than the PTT is recommended for monitoring anticoagulation intensity in critically ill patients receiving unfractionated heparin by continuous IV infusion. Blood specimen (specimen) 05/19/2017 9:54 PM EST 05/19/2017 10:05 PM EST Narrative Resulting Agency Comment Spec In Lab Melody A eDnnis KEN HEMATOLOGY ORDERA BLES Performing Organization Address [facility] Co de Phone Number [facility] [place] [address] * EKG 12 Lead (05/19/2017 5:20 PM EST) Ventricular rate 65 BPM MUSE SYSTEM Atrial Rate 65 BPM MUSE SYSTEM P-R Interval 158 ms MUSE SYSTEM QRS Duration 110 ms MUSE SYSTEM Q-T Interval 432 ms MUSE SYSTEM QTC Calculated (Bezet) 449 ms MUSE SYSTEM Calculated R [place] -24 degrees MUSE SYSTEM Calculated T [place] -29 degrees MUSE SYSTEM INTERPRETATION Normal sinus [...] Collins APRN ECG ORDERABLES Performing Organization Address City/[facility]/ZIP Co de Phone Number MUSE SYSTEM * (ABNORMAL) APTT (05/19/2017 12:25 PM EST) PTT 49(H) 25 - 35 sec [facility] Comment: The recommended therapeutic range for full dose, unfractionated heparin at [facility] is 80 ? 114 seconds. The use of the anti-Xa (heparin) level rather than the PTT is recommended for monitoring anticoagulation intensity in critically ill patients receiving unfractionated heparin by continuous IV infusion. Blood specimen (specimen) 05/19/2017 12:25 PM EST 05/19/2017 2:10 PM EST Narrative Resulting Agency Comment Spec In Lab Melody Collins APRN HEMATOLOGY ORDERA BLES Performing Organization Address [facility] de Phone Number [facility] [place] [address] * (ABNORMAL) Prothrombin Time (05/19/2017 12:25 PM EST) PT 22.9(H) 11.8 - 14.0 sec [facility] INR 2.0(H) 0.9 - 1.1 [facility] Comment: An INR <2.0 indicates [...] APRN HEMATOLOGY ORDERA BLES Performing Organization Address [facility] Co de Phone Number [facility] [place] [address] * EKG 12 Lead (05/19/2017 6:59 AM EST) Ventricular rate 62 BPM MUSE SYSTEM Atrial Rate 62 BPM MUSE SYSTEM P-R Interval 172 ms MUSE SYSTEM QRS Duration 110 ms MUSE SYSTEM Q-T Interval 462 ms MUSE SYSTEM QTC Calculated (Bezet) 468 ms MUSE SYSTEM Calculated P [place] 16 degrees MUSE SYSTEM Calculated R [place] 17 degrees MUSE SYSTEM Calculated T [place] 5 degrees MUSE SYSTEM INTERPRETATION Normal sinus rhythm Poor R wave progression Cannot rule out Anterior infarct , age undetermined T wave abnormality, consider inferior ischemia T wave abnormality, consider anterior ischemia Abnormal ECG When compared with ECG of 18-MAY-2017 01:33, No significant change was found I personally reviewed the tracing and edited the fellows interpretation Confirmed by fellow MD Rhonda, Chloé Cid ([id number]) on 05/19/2017 10:58:16 AM Confirmed by MD Gudelia, Valdo ([id number]) on 05/19/2017 3:48:21 PM MUSE SYSTEM 05/19/2017 6:59 AM EST 05/19/2017 3:48 PM EST Melody Collins APRN ECG ORDERABLES MUSE SYSTEM * Differential, Automated (05/19/2017 5:35 AM EST) Pathologist [facility] Neutrophils % 58.9 % [facility] Neutr Abs (ANC) 3.30 1.70 - 6.10 x10(3)/[facility] Lymphocytes % 25.5 % [facility] Lymphocytes Abs 1.4 0.9 - 3.2 x10(3)/[facility] LABORATORY Monocytes % 9.4 % [facility] Monocyte Abs 0.5 0.3 - 0.9 x10(3)/[facility]OR[facility] Eosinophils % 5.3 % [facility] Eosinophils Abs 0.3 0.0 - 0.4 x10(3)/[facility] LABORATORY Basophils % 0.7 % [facility] Basophils Abs 0.0 0.0 - 0.1 x10(3)/[facility] LABORATORY Immature Gran % 0.20 % [facility] Comment: Immature granulocytes(IG's)percentage and absolute count will include metamyelocytes, myelocytes, and promyelocytes. Blood smears from CBCs yielding IG's will be scanned manually for concordance. If this scan disagrees with the automated IG or if promyelocytes are noted, a manual differential will be performed. [place] Gran Abs 0.01 0.00 - 0.04 x10(3)/[facility] LABORATORY Blood specimen (specimen) 05/19/2017 5:35 AM EST 05/19/2017 5:51 AM EST Narrative Resulting Agency Comment Spec In Lab Melody Collins APRN HEMATOLOGY ORDERA BLES [facility] [place] [address] * (ABNORMAL) Hemogram (05/19/2017 5:35 AM EST) WBC 5.6 4.0 - 9.5 x10(3)/[facility] LABORATORY RBC 4.53 4.00 - 5.21 x10(6)/[facility] Hemoglobin 14.8 11.7 - 15.5 gm/dL [facility] Hematocrit 41.8 35.7 - 45.8 % [facility] MCV 92.3 82.6 - 94.4 fL [facility] MCH 32.7(H) 27.1 - 32.0 pg [facility] MCHC 35.4(H) 31.7 - 35.0 gm/dL [facility] Platelets 165 145 - 357 x10(3)/[facility] LABORATORY RDWSD 42.5 37.0 - 46.0 fL [facility] RDWCV 12.5 11.5 - 14.1 % [facility] MPV 10.7 7.6 - 12.9 fL [facility] nRBC % Auto 0.0 % [facility] nRBC Abs Auto 0.000 0.000 - 0.000 x10(3)/mcL [facility] Blood specimen (specimen) 05/19/2017 5:35 AM EST 05/19/2017 5:51 AM EST Narrative Resulting Agency Comment Spec In Lab Melody Collins APRN HEMATOLOGY ORDERA BLES Performing Organization Address [facility] de Phone Number [facility] [place] [address] * (ABNORMAL) Prothrombin Time (05/19/2017 5:35 AM EST) PT 24.8(H) 11.8 - 14.0 sec [facility] INR 2.2(H) 0.9 - 1.1 [facility] Comment: An INR <2.0 indicates [...] SUELLEN HEMATOLOGY ORDERA BLES Performing Organization Address City/[facility] Co de Phone Number [facility] [place] [address] * BMP w/fasting Glucose (05/19/2017 5:35 AM EST) Glucose Fasting 84 65 - 99 mg/dL [facility] Comment: ?Fasting* Glucose Interpretive Criteria [...] of Diabetes Mellitus, Position Statement from the [place] [employer]. ??Diabetes Care, Volume 33, Supplement 1, Apr 2009 BUN 18 8 - 18 mg/dL [facility] Creatinine 0.83 0.70 - 1.20 mg/dL [facility] Sodium 143 135 - 145 mmol/L [facility] Potassium 4.5 3.5 - 5.0 mmol/L [facility] Comment: Please note: ??Patients with WBC >100,000 may have falsely elevated Potassium levels. ??For accurate Potassium quantification in these patients send serum separator tube (gold top) for subsequent determinations. ??Contact the Clinical Chemistry Laboratory if there are any questions. Chloride 102 98 - 107 mmol/L [facility] CO2 28 22 - 31 mmol/L [facility] Anion Gap 13 5 - 15 mmol/L [facility] Calcium 9.7 8.5 - 10.5 mg/dL [facility] Estimated GFR >60 >=60 [facility] Comment: The reported eGFR should be multiplied by 1.2 for patients. The MDRD is not an appropriate measure of renal function for patients with body mass extremes or in patients with acute kidney failure. http://[employer]TonZof/DHnkdep http://[employer]Ton[employer]/DHMCnkf Blood specimen (specimen) 05/19/2017 5:35 AM EST 05/19/2017 5:51 AM EST Narrative Resulting Agency Comment Spec In Lab Melody Collins APRN CHEMISTRY ORDERAB LES [facility] [place] [address] * Cardiac Enzymes (LEB/CGP) (05/18/2017 12:35 PM EST) [facility] Troponin-T <0.01 0.00 - 0.00 ng/mL [facility] Comment: The 99th percentile for Troponin T is less than 0.01 ng/mL, any detectable cTnT concentration using this assay should be considered elevated. According to the third universal definition of myocardial infarction the following criteria with a clinical presentation consistent with acute myocardial ischemia meets the diagnosis for a myocardial infarction (MT). Detection of a rise and/or fall of cTnT, with at least one value greater than the 99th percentile (> or = 0.01) and with at least one of the following ?? Symptoms of ischemia ?? New or presumed new significant BS-gffkplj-B wave (ST-T) changes or new left bundle [...] additional sample may be indicated. Reference: Third Hobson Definition of Myocardial Infarction. Journal of the [place] College [employer]iology 2012;60:1581-98 CK, Total 71 0 - 160 unit/L [facility] Blood specimen (specimen) 05/18/2017 12:35 PM EST 05/18/2017 12:37 PM EST Narrative Resulting Agency Comment Spec In Lab Andrea Stewart MD CHEMISTRY ORDERABLES Performing Organization Address City/State/[facility] Co de Phone Number [facility] [place] [address] * ECHO COMPLETE (05/18/2017 10:55 AM EST) Pathologist [facility] EF 55 HEARTLAB SYSTEM Anatomical Region Laterality Modality Other 05/18/2017 Narrative 05/18/2017 11:17 AM EST Procedure: ?Transthoracic Echocardiogram Patient: ?SEBASTIÁN ZAMORA M ? (Age): 1970(47y) Med Rec#: ? [id number] ?Sex: ?F ? Site Loc: ? [facility] ?Ht / Wt: ??162(cm)/71(kg) Pt. Loc: ?Adult Floor ? BSA: ?1.76 Study Date: ?? 05/18/2017 ?Pt. Type: Inpatient Tape: ? Referring: Andrea Stewart Referring: CLAUDIA Reading: Marquis Reyes ([id number]) Outside Machinist Supervisor: Santy Mena Diagnosis: *ICD-10-PCS Other chest pain [...] E-wave Vmax ?0.7 ?m/sec ? MV deceleration [id number] ?msec ? MV A-wave Vmax ?0.8 ?m/sec [...] ? Mid-Inferior ?Normal ? Mid-Inferoseptal ?Normal ? [place]-Septal ? Normal ? [place]-Anterior ? Normal ? [place]-Lateral ?Normal ? [place]-Inferior ? Normal ? [place]-Tip ?Normal ? This report has been electronically signed by: Marquis Reyes M.D. ? 05/18/2017 11:16:56 Images reviewed and interpretation verified [facility] Cardiac Ultrasound Laboratory Procedure Note Marquis Reyes MD - 05/18/2017 Procedure: Transthoracic Echocardiogram Patient: SEBASTIÁN Montiel DOB(Age): 1970(47y) Med Rec#: [id number] Sex: F Site Loc: [facility] Ht / Wt: 162(cm)/71(kg) Pt. Loc: Adult Floor BSA: 1.76 Study Date: 05/18/2017 Pt. Type: Inpatient Tape: Referring: Terry Andrea Referring: CLAUDIA Reading: Marquis Reyes ([id number]) Outside Machinist Supervisor: Santy Mena Diagnosis: *ICD-10-PCS Other chest pain [...] MV E-wave Vmax 0.7 m/sec MV deceleration [id number] msec MV A-wave Vmax 0.8 m/sec MV [...] Normal Mid-Posterolateral Normal Mid-Inferior Normal Mid-Inferoseptal Normal [place]-Septal Normal [place]-Anterior Normal [place]-Lateral Normal [place]-Inferior Normal [place]-Tip Normal This report has been electronically signed by: Marquis Reyes M.D. 05/18/2017 11:16:56 Images reviewed and interpretation verified [facility] Cardiac Ultrasound Laboratory Andrea Stewart MD ECHO [...] 6:59 AM EST) Neutrophils % 58.2 % [facility] Neutr Abs (ANC) 2.72 1.70 - 6.10 x10(3)/[facility] LABORATORY Lymphocytes % 26.3 % [facility] Lymphocytes Abs 1.2 0.9 - 3.2 x10(3)/[facility] LABORATORY Monocytes % 10.0 % [facility] Monocyte Abs 0.5 0.3 - 0.9 x10(3)/[facility] LABORATORY Eosinophils % 4.7 % [facility] Eosinophils Abs 0.2 0.0 - 0.4 x10(3)/[facility] LABORATORY Basophils % 0.6 % [facility] Basophils Abs 0.0 0.0 - 0.1 x10(3)/[facility] LABORATORY Immature Gran % 0.20 % [facility] Comment: Immature granulocytes(IG's)percentage and absolute count will include metamyelocytes, myelocytes, and promyelocytes. Blood smears from CBCs yielding IG's will be scanned manually for concordance. If this scan disagrees with the automated IG or if promyelocytes are noted, a manual differential will be performed. [place] Gran Abs 0.01 0.00 - 0.04 x10(3)/[facility] LABORATORY Blood specimen (specimen) 05/18/2017 6:59 AM EST 05/18/2017 7:08 AM EST Narrative Resulting Agency Comment Spec In Lab Andrea Stewart MD HEMATOLOGY ORDERABLE S [facility] [place] [address] * (ABNORMAL) Hemogram (05/18/2017 6:59 AM EST) WBC 4.7 4.0 - 9.5 x10(3)/[facility] LABORATORY RBC 3.85(L) 4.00 - 5.21 x10(6)/[facility] LABORATORY Hemoglobin 12.5 11.7 - 15.5 gm/dL [facility] Hematocrit 35.6(L) 35.7 - 45.8 % [facility] MCV 92.5 82.6 - 94.4 fL [facility] MCH 32.5(H) 27.1 - 32.0 pg [facility] MCHC 35.1(H) 31.7 - 35.0 gm/dL [facility] Platelets 166 145 - 357 x10(3)/[facility] RDWSD 43.1 37.0 - 46.0 [facility] LABORATORY RDWCV 12.7 11.5 - 14.1 % [facility] MPV 10.4 7.6 - 12.9 [facility] LABORATORY nRBC % Auto 0.0 % [facility] nRBC Abs Auto 0.000 0.000 - 0.000 x10(3)/[facility] LABORATORY Blood specimen (specimen) 05/18/2017 6:59 AM EST 05/18/2017 7:08 AM EST Narrative Resulting Agency Comment Spec In Lab Andrea Stewart MD HEMATOLOGY ORDERABLE S [facility] [place] [address] * BMP w/fasting Glucose (05/18/2017 6:59 AM EST) Glucose Fasting 94 65 - 99 mg/dL [facility] Comment: ?Fasting* Glucose Interpretive Criteria [...] of Diabetes Mellitus, Position Statement from the [place] [employer] Association. ??Diabetes Care, Volume 33, Supplement 1, Apr 2009 BUN 16 8 - 18 mg/dL [facility] Creatinine 0.93 0.70 - 1.20 mg/dL [facility] Sodium 142 135 - 145 mmol/L [facility] Potassium 4.1 3.5 - 5.0 mmol/L [facility] Comment: Please note: ??Patients with WBC >100,000 may have falsely elevated Potassium levels. ??For accurate Potassium quantification in these patients send serum separator tube (gold top) for subsequent determinations. ??Contact the Clinical Chemistry Laboratory if there are any questions. Chloride 104 98 - 107 mmol/L [facility] CO2 28 22 - 31 mmol/L [facility] Anion Gap 10 5 - 15 mmol/L [facility] Calcium 8.9 8.5 - 10.5 mg/dL [facility] Estimated GFR >60 >=60 [facility] Comment: The reported eGFR should be multiplied by 1.2 for patients. The MDRD is not an appropriate measure of renal function for patients with body mass extremes or in patients with acute kidney failure. http://[employer]TonZof/DHnkdep http://[employer]/DHMCnkf Blood specimen (specimen) 05/18/2017 6:59 AM EST 05/18/2017 7:08 AM EST Narrative Resulting Agency Comment Spec In Lab Andrea Stewart MD CHEMISTRY ORDERABLES Performing Organization Address [facility] Co de Phone Number [facility] [place] [address] * (ABNORMAL) APTT (05/18/2017 6:59 AM EST) PTT 52(H) 25 - 35 sec [facility] Comment: The recommended therapeutic range for full dose, unfractionated heparin at [facility] is 80 ? 114 seconds. The use of the anti-Xa (heparin) level rather than the PTT is recommended for monitoring anticoagulation intensity in critically ill patients receiving unfractionated heparin by continuous IV infusion. Blood specimen (specimen) 05/18/2017 6:59 AM EST 05/18/2017 7:08 AM EST Narrative Resulting Agency Comment Spec In Lab Andrea Stewart MD HEMATOLOGY ORDERABLE S Performing Organization Address [facility] Co de Phone Number [facility] [place] [address] * (ABNORMAL) Prothrombin Time (05/18/2017 6:59 AM EST) PT 30.7(H) 11.8 - 14.0 sec [facility] INR 2.9(H) 0.9 - 1.1 [facility] Comment: An INR <2.0 indicates [...] MD HEMATOLOGY ORDERABLE S Performing Organization Address [facility] Co de Phone Number [facility] [place] [address] * Cardiac Enzymes (LEB/CGP) (05/18/2017 6:59 AM EST) Pathologist [facility] Troponin-T <0.01 0.00 - 0.00 ng/mL [facility] Comment: The 99th percentile for Troponin T is less than 0.01 ng/mL, any detectable cTnT concentration using this assay should be considered elevated. According to the third universal definition of myocardial infarction the following criteria with a clinical presentation consistent with acute myocardial ischemia meets the diagnosis for a myocardial infarction (MT). Detection of a rise and/or fall of cTnT, with at least one value greater than the 99th percentile (> or = 0.01) and with at least one of the following ?? Symptoms of ischemia ?? New or presumed new significant WC-vhhgjen-B wave (ST-T) changes or new left bundle [...] additional sample may be indicated. Reference: Third Hobson Definition of Myocardial Infarction. Journal of the [place] College [employer] 2012;60:1581-98 CK, Total 72 0 - 160 unit/L [facility] Blood specimen (specimen) 05/18/2017 6:59 AM EST 05/18/2017 7:11 AM EST Narrative Resulting Agency Comment Spec In Lab Andrea Stewart MD CHEMISTRY ORDERABLES [facility] [place] [address] * EKG 12 Lead (05/18/2017 1:33 AM EST) [facility] Ventricular rate 60 BPM MUSE SYSTEM Atrial Rate 60 BPM MUSE SYSTEM P-R Interval 164 ms MUSE SYSTEM QRS Duration 106 ms MUSE SYSTEM Q-T Interval 452 ms MUSE SYSTEM QTC Calculated (Bezet) 452 ms MUSE SYSTEM Calculated P [place] 4 degrees MUSE SYSTEM Calculated R [place] 8 degrees MUSE SYSTEM Calculated T [place] -8 degrees MUSE SYSTEM INTERPRETATION Normal sinus rhythm T wave abnormality, consider anterior ischemia Abnormal ECG When compared with ECG of 18-MAY-2017 00:23, No significant change was found Confirmed by MD JUDITH, BIENVENIDO ([id number]) on 05/18/2017 1:47:48 PM MUSE SYSTEM 05/18/2017 1:33 AM EST 05/18/2017 1:47 PM EST Andrea Stewart MD ECG ORDERABLES MUSE SYSTEM * BMP w/fasting Glucose (05/18/2017 12:36 AM EST) Glucose Fasting 88 65 - 99 mg/dL [facility] Comment: ?Fasting* Glucose Interpretive Criteria [...] of Diabetes Mellitus, Position Statement from the [place] [employer]. ??Diabetes Care, Volume 33, Supplement 1, Apr 2009 BUN 12 8 - 18 mg/dL [facility] Creatinine 0.80 0.70 - 1.20 mg/dL [facility] Sodium 144 135 - 145 mmol/L [facility] Potassium 3.9 3.5 - 5.0 mmol/L [facility] Comment: Please note: ??Patients with WBC >100,000 may have falsely elevated Potassium levels. ??For accurate Potassium quantification in these patients send serum separator tube (gold top) for subsequent determinations. ??Contact the Clinical Chemistry Laboratory if there are any questions. Chloride 105 98 - 107 mmol/L [facility] CO2 27 22 - 31 mmol/L [facility] Anion Gap 12 5 - 15 mmol/L [facility] Calcium 9.2 8.5 - 10.5 mg/dL [facility] Estimated GFR >60 >=60 [facility] Comment: The reported eGFR should be multiplied by 1.2 for patients. The MDRD is not an appropriate measure of renal function for patients with body mass extremes or in patients with acute kidney failure. http://[employer]/DHnkdep http://[employer]/DHMCnkf Blood specimen (specimen) 05/18/2017 12:36 AM EST 05/18/2017 1:00 AM EST Narrative Resulting Agency Comment Spec In Lab Andrea Stewart MD CHEMISTRY ORDERABLES [facility] [place] [id number] * Differential, Automated (05/18/2017 12:36 AM EST) Neutrophils % 51.9 % [facility] Neutr Abs (ANC) 2.35 1.70 - 6.10 x10(3)/[facility] LABORATORY Lymphocytes % 33.3 % [facility] Lymphocytes Abs 1.5 0.9 - 3.2 x10(3)/[facility] LABORATORY Monocytes % 9.7 % [facility] Monocyte Abs 0.4 0.3 - 0.9 x10(3)/[facility] Eosinophils % 4.2 % [facility] Eosinophils Abs 0.2 0.0 - 0.4 x10(3)/[facility] Basophils % 0.7 % [facility] Basophils Abs 0.0 0.0 - 0.1 x10(3)/[facility]OR[facility] Immature Gran % 0.20 % [facility] Comment: Immature granulocytes(IG's)percentage and absolute count will include metamyelocytes, myelocytes, and promyelocytes. Blood smears from CBCs yielding IG's will be scanned manually for concordance. If this scan disagrees with the automated IG or if promyelocytes are noted, a manual differential will be performed. [place] Gran Abs 0.01 0.00 - 0.04 x10(3)/[facility] LABOR[facility] Blood specimen (specimen) 05/18/2017 12:36 AM EST 05/18/2017 1:00 AM EST Narrative Resulting Agency Comment Spec In Lab Andrea Stewart MD HEMATOLOGY ORDERABLE S [facility] [place] [address] * (ABNORMAL) Hemogram (05/18/2017 12:36 AM EST) WBC 4.5 4.0 - 9.5 x10(3)/[facility] LAB[facility] RBC 3.96(L) 4.00 - 5.21 x10(6)/[facility] Hemoglobin 12.8 11.7 - 15.5 gm/dL [facility] Hematocrit 36.5 35.7 - 45.8 % [facility] MCV 92.2 82.6 - 94.4 fL [facility] MCH 32.3(H) 27.1 - 32.0 pg [facility] MCHC 35.1(H) 31.7 - 35.0 gm/dL [facility] Platelets 175 145 - 357 x10(3)/[facility] LABORATORY RDWSD 42.6 37.0 - 46.0 [facility] RDWCV 12.6 11.5 - 14.1 % [facility] MPV 10.6 7.6 - 12.9 [facility] nRBC % Auto 0.0 % [facility] nRBC Abs Auto 0.000 0.000 - 0.000 x10(3)/[facility] Blood specimen (specimen) 05/18/2017 12:36 AM EST 05/18/2017 1:00 AM EST Narrative Resulting Agency Comment Spec In Lab Andrea Stewart MD HEMATOLOGY ORDERABLE S Performing Organization Address [facility] Co de Phone Number [facility] [place] [address] * Triglyceride (05/18/2017 12:36 AM EST) Triglycerides 72 mg/dL [facility] Comment: Average Risk/Lower Risk: <150 mg/dL Borderline High Risk: 150-199 mg/dL High Risk: 200-499 mg/dL Very High Risk: >pj=877 mg/dL Blood specimen (specimen) 05/18/2017 12:36 AM EST 05/18/2017 1:00 AM EST Narrative Resulting Agency Comment Spec In Lab Andrea Stewart MD CHEMISTRY ORDERABLES Performing Organization Address [facility] Co de Phone Number [facility] [place] [phone] * HDL/Cholesterol Profile (05/18/2017 12:36 AM EST) Chol, Total 197 mg/dL [facility] Comment: Lower Risk: <200 mg/dL Average Risk: 200-239 mg/dL Higher Risk: >ju=013 mg/dL HDL 45 mg/dL [facility] Comment: Males: ?? Higher Risk: <40 mg/dL Females: ?? HIgher Risk: <50 mg/dL Chol/HDL Ratio 4.4 ratio [facility] Chol/HDL Interpretation See Note [facility] Comment: Lipid management should be guided by a patient? s ASCVD risk, goals and preferences. ACC/AHA Guidelines recommend high intensity statin if clinical ASCVD or LDL greater than or equal to 190 mg/dL. http://tinyurl.com/YWR-ILG-Frraxqbzo Measure LDL if Total Cholesterol minus HDL Cholesterol is greater than 220 mg/dL. Adults aged 40-75 with LDL 70-189 mg/dL should have their 10 year ASCVD risk estimated with the ACC/AHA ASCVD risk senior electrical estimator http://tools.acc.org/QXTML-Pncj-Hmxatffrt/ Statin should be discussed if risk greater [...] Stewart MD CHEMISTRY ORDERABLES Performing Organization Address City/[facility]/ZIP Co de Phone Number [facility] [place] [address] * LDL Cholesterol, Direct (05/18/2017 12:36 AM EST) LDL Chol Direct 145 mg/dL [facility] Comment: Lowest Risk: <100 mg/dL Lower Risk: 100-129 mg/dL Borderline High Risk: 130-159 mg/dL High Risk: 160-189 mg/dL Very High Risk: >cx=782 mg/dL Blood specimen (specimen) 05/18/2017 12:36 AM EST 05/18/2017 1:00 AM EST Narrative Resulting Agency Comment Spec In Lab Andrea Stewart MD CHEMISTRY ORDERABLES Performing Organization Address City/[facility]/ZIP Co de Phone Number [facility] [place] [address] * Hemoglobin A1c (05/18/2017 12:36 AM EST) Hemoglobin A1C 5.0 4.3 - 5.6 % [facility] Comment: Reference Range: 4.3 - [...] 1, S67-74 Est Avg Gluc 97 mg/dL [facility] Comment: eAG equivalents for HbA1c [...] into estimated average glucose values. ??Diabetes Care 2008:31(8):9381-7338. Blood specimen (specimen) 05/18/2017 12:36 AM EST 05/18/2017 1:00 AM EST Narrative Resulting Agency Comment Spec In Lab Andrea Stewart MD CHEMISTRY ORDERABLES [facility] [place] [address] * Cardiac Enzymes (LEB/CGP) (05/18/2017 12:36 AM EST) Troponin-T <0.01 0.00 - 0.00 ng/mL [facility] Comment: The 99th percentile for Troponin T is less than 0.01 ng/mL, any detectable cTnT concentration using this assay should be considered elevated. According to the third universal definition of myocardial infarction the following criteria with a clinical presentation consistent with acute myocardial ischemia meets the diagnosis for a myocardial infarction (MT). Detection of a rise and/or fall of cTnT, with at least one value greater than the 99th percentile (> or = 0.01) and with at least one of the following ?? Symptoms of ischemia ?? New or presumed new significant ZU-wojalxd-R wave (ST-T) changes or new left bundle [...] additional sample may be indicated. Reference: Third Hobson Definition of Myocardial Infarction. Journal of the [place] [employer] 2012;60:1581-98 CK, Total 76 0 - 160 unit/L [facility] Blood specimen (specimen) 05/18/2017 12:36 AM EST 05/18/2017 1:00 AM EST Narrative Resulting Agency Comment Spec In Lab Andrea Stewart MD CHEMISTRY ORDERABLES [facility] [place] [address] * Lipid Panel (05/18/2017 12:36 AM EST) Chol, Total 197 mg/dL [facility] Comment: Lower Risk: <200 mg/dL Average Risk: 200-239 mg/dL Higher Risk: >ki=465 mg/dL Triglycerides 72 mg/dL [facility] Comment: Average Risk/Lower Risk: <150 mg/dL Borderline High Risk: 150-199 mg/dL High Risk: 200-499 mg/dL Very High Risk: >tu=906 mg/dL HDL 45 mg/dL [facility] Comment: Males: ?? Higher Risk: <40 mg/dL Females: ?? HIgher Risk: <50 mg/dL LDL Cholesterol 138 mg/dL [facility] Comment: Lowest Risk: <100 mg/dL Lower Risk: 100-129 mg/dL Borderline High Risk: 130-159 mg/dL High Risk: 160-189 mg/dL Very High Risk: >un=264 mg/dL Chol/HDL Ratio 4.4 ratio [facility] Lipid Interpretation See Note [facility] Comment: Lipid management should be guided by a patient? s ASCVD risk, goals and preferences. ACC/AHA Guidelines recommend high intensity statin if clinical ASCVD or LDL greater than or equal to 190 mg/dL. http://[employer]com/CSE-FKX-Qtjobwiet Adults aged 40-75 with LDL 70-189 mg/dL should have their 10 year ASCVD risk estimated with the ACC/AHA ASCVD risk senior electrical estimator http://tools.acc.org/BOOYJ-Ojfi-Jqanrhnak/ Statin should be discussed if risk greater [...] In Lab Andrea Stewart MD CHEMISTRY ORDERABLES [facility] [place] [address] * (ABNORMAL) APTT (05/18/2017 12:36 AM EST) PTT 55(H) 25 - 35 sec [facility] Comment: The recommended therapeutic range for full dose, unfractionated heparin at [facility] is 80 ? 114 seconds. The use of the anti-Xa (heparin) level rather than the PTT is recommended for monitoring anticoagulation intensity in critically ill patients receiving unfractionated heparin by continuous IV infusion. Blood specimen (specimen) 05/18/2017 12:36 AM EST 05/18/2017 1:00 AM EST Narrative Resulting Agency Comment Spec In Lab Andrea Stewart MD HEMATOLOGY ORDERABLE S [facility] [place] [address] * (ABNORMAL) Prothrombin Time (05/18/2017 12:36 AM EST) PT 29.9(H) 11.8 - 14.0 sec [facility] INR 2.8(H) 0.9 - 1.[address] [facility] Comment: An INR <2.0 indicates [...] Lab Andrea Stewart MD HEMATOLOGY ORDERABLE S [facility] [place] [address] * Hepatic Function Panel (05/18/2017 12:36 AM EST) Total Protein 6.8 6.1 - 8.0 gm/dL [facility] Albumin 3.8 3.2 - 5.2 gm/dL [facility] AST 15 0 - 30 unit/L [facility] ALT 9 0 - 30 unit/L [facility] Alk Phos 77 40 - 104 unit/L [facility] Total Bilirubin 0.4 0.2 - 1.3 mg/dL [facility] Bili, Direct 0.1 0.0 - 0.3 mg/dL [facility] Blood specimen (specimen) 05/18/2017 12:36 AM EST 05/18/2017 1:00 AM EST Narrative Resulting Agency Comment Spec In Lab Andrea Stewart MD CHEMISTRY ORDERABLES [facility] [place] [address] * (ABNORMAL) pro-Brain Natriuretic Peptide (05/18/2017 12:36 AM EST) ProBNP 455(H) <=125 pg/mL [facility] Blood specimen (specimen) 05/18/2017 12:36 AM EST 05/18/2017 1:00 AM EST Narrative Resulting Agency Comment Spec In Lab Andrea Stewart MD CHEMISTRY ORDERABLES Performing Organization Address City/[facility]/ZIP Co de Phone Number [facility] [place] [address] * TSH (05/18/2017 12:36 AM EST) TSH 3.47 0.27 - 4.20 mlU/ML [facility] Blood specimen (specimen) 05/18/2017 12:36 AM EST 05/18/2017 1:00 AM EST Narrative Resulting Agency Comment Spec In Lab Andrea Stewart MD CHEMISTRY ORDERABLES Performing Organization Address City/[facility]/ZIP Co de Phone Number [facility] [place] [address] * Phosphorus (05/18/2017 12:36 AM EST) Phosphorus 3.7 2.5 - 4.5 mg/dL [facility] Blood specimen (specimen) 05/18/2017 12:36 AM EST 05/18/2017 1:00 AM EST Narrative Resulting Agency Comment Spec In Lab Andrea Stewart MD CHEMISTRY ORDERABLES [facility] [place] [address] * Magnesium (05/18/2017 12:36 AM EST) Magnesium 0.73 0.69 - 1.07 mmol/L [facility] Blood specimen (specimen) 05/18/2017 12:36 AM EST 05/18/2017 1:00 AM EST Narrative Resulting Agency Comment Spec In Lab Andrea Stewart MD CHEMISTRY ORDERABLES Performing Organization Address [facility] Co de Phone Number [facility] [place] [address] * EKG 12 Lead (05/18/2017 12:23 AM EST) Ventricular rate 57 BPM MUSE SYSTEM Atrial Rate 57 BPM MUSE SYSTEM P-R Interval 168 ms MUSE SYSTEM QRS Duration 108 ms MUSE SYSTEM Q-T Interval 468 ms MUSE SYSTEM QTC Calculated (Bezet) 455 ms MUSE SYSTEM Calculated P [place] 27 degrees MUSE SYSTEM Calculated R [place] 6 degrees MUSE SYSTEM Calculated T [place] -14 degrees MUSE SYSTEM INTERPRETATION Sinus bradycardia anterior T wave inversion, consider ischemia Abnormal ECG When compared with ECG of 26-NOV-2005 11:10, T wave inversion now evident in Anterolateral leads Confirmed by MD JUDITH, BIENVENIDO ([id number]) on 05/18/2017 1:47:16 PM MUSE SYSTEM 05/18/2017 12:2 3 AM EST 05/18/2017 1:47 PM EST Andrea Stweart MD ECG ORDERABLES Performing Organization Address [facility] Co de Phone Number MUSE SYSTEM documented [...] Given 05/29/2017 8:52 AM EST 10 mg dextrose 50% IV syringe 25-50 mL 25-50 [...] Given 05/28/2017 8:28 AM EST 100 mg fentaNYL 50 mcg/mL multi-dose injection ONCE PRN, Starting on Thu05/20/17 at 0900, Until Thu05/20/17 at 1006, Intra-Operative (Intra-Procedure), Routine Given 05/20/2017 9:15 AM EST 12.5 mcg Given 05/20/2017 9:00 AM EST 12.5 mcg glucagon (human recombinant) injection SolR 1 mg [...] heparin (porcine) injection ONCE PRN, Starting on Thu05/20/17 at 0931, Until Thu05/20/17 at 1006, Cath (Intra-Procedure), Routine Given 05/20/2017 9:31 AM EST 1,500 Units HYDROmorphone (DILAUDID) tablet 2-4 mg 2-4 mg, [...] unless specifically told to do so., Routine iohexol (OMNIPAQUE) 350 mg/mL solution ONCE PRN, Starting on Thu05/20/17 at 1005, Until Thu05/20/17 at 1006, Cath (Intra-Procedure), Routine Given 05/20/2017 10:05 AM EST 85 mLs levothyroxine (SYNTHROID) tablet 25 mcg 25 mcg, Oral, DAILY, First dose (after last modification) on Thu05/26/17 at 0600, Until Discontinued Given 05/30/2017 5:54 AM EST 25 mcg Given 05/29/2017 5:37 AM EST 25 mcg Given 05/28/2017 6:10 AM EST 25 mcg LORazepam (ATIVAN) tablet 0.5 mg 0.5 mg, [...] Given 05/28/2017 8:30 AM EST 10 mLs meTOPROLOL (LOPRESSOR) tablet 37.5 mg 37.5 mg, Oral, EVERY 8 HOURS SCHEDULED, First dose (after last modification) on Thu05/29/17 at 2200, Until Discontinued, Please hold for sbp <90, hr <60, Routine Given 05/30/2017 2:31 PM EST 37.5 mg Given 05/30/2017 5:53 AM EST 37.5 mg Given 05/29/2017 9:55 PM EST 37.5 mg midazolam (PF) (VERSED) 1 mg/mL multi-dose injection ONCE PRN, Starting on Thu05/20/17 at 0900, Until Thu05/20/17 at 1006, Cath (Intra-Procedure), Routine Given 05/20/2017 9:22 AM EST 0.5 mg Given 05/20/2017 9:00 AM EST 0.5 mg nitroGLYcerin 100 mcg/mL intracoronary dilution ONCE PRN, Starting on Thu05/20/17 at 0920, Until Thu05/20/17 at 1006, Cath (Intra-Procedure), Routine Given 05/20/2017 9:46 AM EST 100 mcg Given 05/20/2017 9:20 AM EST 100 mcg ondansetron (ZOFRAN) injection 4 mg 4 mg, Intravenous, EVERY 8 HOURS PRN, Starting on Thu05/25/17 at 1502, Until 05/30/17 at 1644, Nausea Given 05/29/2017 2:39 PM [...] EST 5 mLs sodium chloride 0.9% infusion CONTINUOUS PRN, Starting on Thu05/20/17 at 0931, Until Thu05/20/17 at 1006, Cath (Intra-Procedure) New Bag 05/20/2017 9:31 AM EST 250 mLs 250 mL/hr verapamil (ISOPTIN) injection ONCE PRN, Starting on Thu05/20/17 at 0935, Until Thu05/20/17 at 1006, Administer over 2 Minutes, Cath (Intra-Procedure) Given 05/20/2017 9:35 AM EST 2 mg warfarin (COUMADIN) daily order reminder Oral, EVERY 24 HOURS, First dose on Thu05/27/17 at 1400, Until Discontinued, If the daily warfarin order has not been placed, contact the Provider to confirm that the order will be written, the dose is held or discontinued. warfarin (COUMADIN) tablet 2.5 mg 2.5 mg, Oral, ONCE, 1 dose, On 05/30/17 at 1700, Routine documented in this encounter [...] Bahena RN) 0841 (Given - Provider: Sabas Walker RN) hydroxychloroquine (PLAQUENIL) tablet 200 mg 200 mg, Oral, 2 TIMES DAILY, First dose (after last modification) on Thu05/26/17 at 0900, Until Discontinued, Routine 1010 (Given - Provider: Sabas Walker RN)2107 (Given - Provider: Harvey Bahena RN) 0957 (Given - Provider: Sabas Walker RN)2054 (Given - Provider: Harvey Bahena RN) [...] Marquis Sanchez RN)1431 (Given - Provider: Sabas Walker RN) meTOPROLOL [...] day), First dose (after last modification) on Yaritza 05/28/17 at 2100, Until Discontinued, Routine 2100 (Not [...] RN) 0810 (See Alternative - Provider: Sabas Walker RN) pantoprazole (PROTONIX) tablet 40 mg(Linked Group [...] Bahena RN) 0900 (Given - Provider: Sabas Walker, RN)2053 (Given [...] CONTINUOUS, Starting on Thu05/26/17 at 0845, Until Thu05/30/17 at 0629, Patient Weight 70-74 kg Initial [...] than 1.05 units/mL X 2 - call housekeeping/laundry See [facility] dosing guidance for anti-Xa results [...] Marquis Sanchez RN)0729 (Stopped - Provider: Sabas Walker RN) PRN Medication Order 05/28/2017 05/29/2017 05/30/2017 [...] Routine 0833 (Given - Provider: Sabas Walker RN)3893 (Given - Provider: Devon Clark RN) lidocaine [...] Nausea 1439 (Given - Provider: Sabas Walker, RN) sodium chloride 0.9 % flush 5-20 [...] post-op day 1 in the AM Give HI if unable to take PO, Routine Group [...] Routine documented in this encounter Care Teams Senior Applications Architect Relationship Specialty Start Date End Date Mckenna Genao, [employer] [address] [place] [address] PCP - General Family Medicine 05/07/17 08/08/21 documented as of this encounter
--- OUTSIDE RECORDS SUMMARY | 2023-11-04 15:21 | XMS_ITS | Encounter Summary ---
[place] [address] Care Team Providers Care Champagne Maker Name Role Phone Damari Gonzalez APRN Primary Care Provider [phone]- [phone] Encounter Details Date Type Department Care Team (Late st Contact Info) Description 10/20/2013 1:30 PM EDT [place] [id number] Pete Webb MD [facility] [place] [address] SLE (systemic lupus erythematosus) (Primary Dx); Antiphospholipid antibody syndrome Discharge Disposition: Home Social [...] Sign Reading Time Taken Comments Blood Pressure 112/50 10/20/2013 1:34 PM EDT Pulse 87 10/20/2013 1:34 PM EDT Temperature 36.6 ??C (97.9 ??F) 10/20/2013 1:34 PM ED T Respiratory Rate - - Oxygen Saturation 98% 10/20/2013 1:34 PM EDT Inhaled Oxygen Concentration - - Weight 102.5 kg (226 lb) 10/20/2013 1:34 PM EDT Height 162.6 cm (5' 4) 10/20/2013 1:34 PM EDT Body Mass Index 38.79 10/20/2013 1:34 PM EDT documented in this encounter Patient Instructions * Patient Instructions* Pete Webb - 10/20/2013 3:06 PM EDT 1. Blood work today 2. Make appointment with cardiology- Dr. Alegre. Pete Webb MD Rheumatology Fellow [place] [address] Dept Dept documented in this encounter Progress Notes * Naresh Merrill MD - 10/26/2013 11:09 AM EDT I have seen the patient and reviewed the fellow's above history and I agree with the details as written. The assessment and plan were formulated in discussion with me and I agree with them as documented. Pertinent History: Briefly, Ms. Lowery has a long history of lupus, and has been a patient of Dr. Lozada's for years. Dr. Lozada has now retired. Cecilia has been treated with rituximab in the past, with good success. Specifically, she notes that her joints pains and energy levels have been much improved. She has not had RTX for over one year, and states that she really needs it. Her primary symptoms are fatigue and shortness of breath. There is some joint pain and stiffness. She does not have orthopnea. There is some LE edema. Her exam shows 1+ pitting edema of the lower extremities, but JVP is not elevated, and lungs are clear. The cardiac exam reveals a regular rhythm, no murmurs, no rubs or gallops. The joint exam is pretty benign, does not clearly have synovitis. Assessment and Plan: Cecilia is having shortness of breath and LE edema. This is not clearly due to increased intravascular volume from heart failure based on her exam. However, we would like to evaluate this further as this can affect therapy. Specifically, we will evaluate for hypoalbuminemia, renal insufficiency, proteinuria, liver disease, and heart failure using a pro-BNP. We have also recommended that she see hercardiologist to help in this evaluation. Regarding RTX, I am not sure that this will be helpful right now. We will evaluate for some objective markers of active lupus such as dsDNA, complement levels and inflammatory markers. If these are unremarkable, and based on her joint exam, I am not sure that RTX will be warranted. Perhaps we couldhave her take a short course of prednisone to see how much improvement she got, which could inform future therapy choices. * Pete Webb - 10/25/2013 1:10 AM EDT Rheumatology Outpatient Consultation Note Reason for Consult: The patient is seen at the request of Dr. DAMARI GONZALEZ APRN for evaluationand treatment of SLE was last seen in 03/2012 was a patient of Dr[address] Lozada Rheumatologic history: 1. SLE with discoid rash, arthritis, oral nasal ulcers, pleuro-pericarditis and raynaud's phenomenon. - Treated with cyclophosamide, steroids and rituximab. - 05/14 rituxan ( CD -19 36 in 12/12) and rituxan 04/14/08 and 05/01/08; 04/15 2. 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 - On lifelong anticoagulation with coumadin. 3. Cardiomyopathy with pleuropericarditis. -Endomyocardial biopsy negative for viral changes, no changes of hydroxychloroquine myopathy or other specific etiology. -Recovery of ejection fraction by echocardiogram 2005. -Cardiac cath 03/2012 for evaluation of SOB- normal coranary arteries, Ef 64%, ?peicardial constriction given equalization of Rt and Lt sided pressures 4. On treatment for OA while on prednisone [...] Fractured and infected teeth s/p extractions 2013 History of Present Illness: Cecilia Lowery is a 43 y.o. female who presents today for evaluation of SLE she was a patient of Dr. Lozada unfortunately lost to follow up for 1.5 yrs last seen in 03/2012. Her last dose of Rituximab was around 10/14/12 and 10/29/12 at [place], [place]. Today she c/o generalized fatigue, stiffness and swelling in bilateral feet and hands and lowe back pain. Reports - 'I am ready to get the rituximab'. Her symptoms have been present for the past several months, no progression. Last Lupus flare was in ?June 2013 and received Prednisone from PCP (history is unclear) Back pain is chronic in nature also constant, no trauma, no fall, no fever, no bladder bowel incontinence. Has notice a change in her energy levels but denies muscle weakness or pain. ROS: General (+) fatigue (-)fevers, (-)chills, (-)night sweats, (+)wt gain. HEENT (-)inflammatory eye disease, (-)vision loss, (-)epistaxis, (-)sore throat, (-)bleeding gums, (-)oral ulcers, (-)dry eyes, (-)dry mouth, (-)dysphagia, (- )GERD, (-)photo sensitivity(-)head trauma, (-)tinnitus, (-)bleeding gums, (- )Hair loss, (-)vertigo CVS (-)chest pain, (-)palpitations, (+)pedal edema, (-)PND, (-)orthopnea. Pulm (+)shortness of breath on exertion, (-)FATIMA, (-)wheezes, (-)cough, (- )pleuritic pain GI (-)N/V, (-)abdominal pain, (-)emesis, (-)hematemesis, (-)hematochezia, (- )change in appetite, (+) reflux symptoms (-)hematuria, (-)dysuria, (-)frequency, (-)nocturia, (-)genital ulcers MS 30 mins morning stiffness, (-)muscle weakness, (-)paralysis, (+)joint pain, (-)hx of arthritis Endo (-)thyroid disorders, (-)diabetes, (-)temperature intolerance. Neuro (-)focal weakness, (-)paresthesias, (-)gait instability (+) headaches Skin (+)Raynaud's, no ulcers and (+) photosensitivity. Psych (+) depression. Current Outpatient Prescriptions Medication Sig Dispense Refill ??? ARIPiprazole (ABILIFY) 5 mg tablet Take 5 mg by mouth daily. ??? hydroxychloroquine (PLAQUENIL) 200 mg tablet Take 1 tablet by mouth 2 times daily. 60 tablet 6 ??? warfarin (COUMADIN) 5 mg tablet As directed ??? amoxicillin (AMOXIL) 500 mg capsule Take 1,000 mg by mouth as needed. ??? isosorbide dinitrate (ISORDIL) 30 mg tablet Take 30 mg by mouth daily. ??? metoprolol succinate (TOPROL-XL) 50 mg 24 hr tablet TAKE 1 TABLET EVERY DAY 90 tablet 1 ??? escitalopram (LEXAPRO) 20 mg tablet Take 1 tablet by mouth daily. 30 tablet 6 ??? topiramate (TOPAMAX) 25 mg tablet Take 1 tablet by mouth 2 times daily. 180 tablet 1 ??? pantoprazole (PROTONIX) 40 mg tablet Take 1 tablet by mouth daily. 90 tablet 3 ??? multivitamin with minerals tablet 1 Tablet(s), PO, Once daily ??? fluconazole (DIFLUCAN) 150 mg tablet 150 MG = 1 Tablet(s), PO, as directed PMH SLE Cardiomyopathy secondary to Lupus CVA 1991 with no residual weakness Migraine with aura HTN Hyperlipidemia Depression Sleep apnea Anti-phospholipid antibody PSH - bilateral knee replacement 2005 - D&C after miscarriages x 3 Family Hx: M: 60 yrs RA, Asthma and alcohol use F:60 yrs HTN, NM late 40s Siblings: 3 healthy Grandfather ?Arthritis and heart disease (-)RA, (-)lupus, (-)scleroderma, (-)sjogren's, (-)gout 2 children 3 miscarriages Social Hx: (-)Smoking, (-)EtOH, (-)drugs 2-6 cups of coffee/day Lives with and 2 children. Cale had a NM at 46yrs and required two stents. followed by second NM and complicated by C. diff Physical Examination: BP 112/50 Pulse 87 Temp 36.6 ??C (97.9 ??F) (Oral) Ht 162.6 cm (5' 4) Wt 102.513 kg (226 lb) BMI 38.77 kg/m2 SpO2 98% General: AAOx3, NAD HEENT: Mucous membranes are moist, no oral mucosal ulcerations. Skin: (-)ulcers, (-)rash Neck: Supple, no lymphadenopathy, full range of motion. Cardiovascular: RR, (-)murmurs, rubs, or gallops. Lungs: Clear to auscultation bilaterally. (-)R/R/W Abdomen: Soft, nontender, nondistended, normal active bowel sounds. Back: Nontender over the spine and costovertebral angles bilaterally. Neuro: Alert and oriented x3. Cranial nerves II through XII grossly intact. Strength 5/5 throughout, Sensation to light touch is grossly normal throughout. DTRs are 3+ throughout. Toes downgoing bilaterally. Extremities: Shoulders: FROM, non-tender to palpation Elbows:FROM, (-)pain, (-)nodules Wrists: FROM, no swelling, non-tender Hands: No synovitis, no MCP compression tenderness, full claw and fist Hips: FROM Knees: midline scars (-)effusions, non-tender ROM Ankles: FROM, non-tender, 1+ pitting pedal edema. Feet: no MTP compression tenderness. Vascular: Pulses are equal in all extremities. Laboratory Data: Results for CECILIA LOWERY ( ) as of 10/25/2013 01:27 09/20/2013 00:00 10/20/2013 15:28 Sodium 142 143 Potassium 3.7 3.6 Chloride 107 CO2 24 25 Anion Gap 11 BUN 11 12 Creatinine 1.1 0.96 Estimated GFR >60 Glucose Lvl 86 Calcium 9.0 9.5 Total Protein 7.1 Albumin 3.8 4.2 Total Bilirubin 0.4 Bili, Direct 0.1 Alk Phos 146 125 (H) AST 31 23 ALT 35 24 Vit D, 25-Hydroxy 26.3 ProBNP 74 Results for CECILIA LOWERY ( ) as of 10/25/2013 01:27 10/20/2013 15:28 C3 Complement 156 C4 Complement 40 DNA Ab (DS) Neg Studies: None Impression: Cecilia Lowery is a 43 y.o. female who presents today for f/u of SLE treated with Rituximab. She also has Antiphospholipid antibody syndrome on coumadin, cardiomyopathy likely secondary to SLE and ejection fraction has improved. Last cardiac cath on 03/2012 to evaluate for SOB was negative for obstructive coronary artery disease. She presents with fatigue, generalized joint pains and ongoing shortness of breath. On exam found to have bilateral pedal edema but no evidence of arthritis on joint exams. It is unclear if her presentation is consistent with a lupus flare. We will check serology and complement levels today. Her symptoms of shortness of breath and pedal edema could be from heart failure, liver dysfunction, renal etiology or hypoalbuminemia. Last cardiac cath / ECHO did not show evidence of systolic dysfunction or valvular pathology which is reassuring but could have diastolic dysfunction. Recommendations: - check ds DNA, C3 and C4 - check UA - BNP, LFT , chemistries and CBC - Recommend f/u with dr. Alegre - Will decide treatment with Rituxin after blood work. Discussed with Dr. Garfield Webb MD Rheumatology Fellow [phone] Labs reviewed Cr 0.9 BNP: 74 C3 156 and C4 40 ; ds DNA negative Urine +microalbumin but no casts Pete Webb MD Rheumatology Fellow documented in this encounter Miscellaneous Notes * Addendum Note - Pete Webb - 10/26/2013 11:42 AM EDTAddended by: PETE WEBB on: 10/26/2013 11:42 AM Modules accepted: Level of Service documented in this encounter Plan of Treatment Upcoming Encounters Date Type Department Care Team (Late st Contact Info) Description 11/11/2023 3:00 AM EDT Anti-Coag Telephone Visit [facility] [place] [phone] documented as of this encounter Procedures Procedure Name Priority Date/Time Associated Diagnosis Comments URINALYSIS WITH REFLEX CULTURE Routine 10/20/2013 3:40 PM EDT SLE (systemic lupus erythematosus) DNA ANTIBODY (DOUBLE-STRANDED) Routine 10/20/2013 3:28 PM EDT SLE (systemic lupus erythematosus) HEMOGRAM Routine 10/20/2013 3:28 PM EDT SLE (systemic lupus erythematosus) DIFFERENTIAL, AUTOMATED Routine 10/20/2013 3:28 PM EDT SLE (systemic lupus erythematosus) PROTHROMBIN TIME Routine 10/20/2013 3:28 PM EDT Antiphospholipid antibody syndrome CBC (WITH DIFF) Routine 10/20/2013 3:28 PM EDT SLE (systemic lupus erythematosus) C3 COMPLEMENT Routine 10/20/2013 3:28 PM EDT SLE (systemic lupus erythematosus) C4 COMPLEMENT Routine 10/20/2013 3:28 PM EDT SLE (systemic lupus erythematosus) PRO-BRAIN NATRIURETIC PEPTIDE Routine 10/20/2013 3:28 PM EDT SLE (systemic lupus erythematosus) COMPREHENSIVE METABOLIC PANEL (NON-FASTING) Routine 10/20/2013 3:28 PM EDT SLE (systemic lupus erythematosus) PROTHROMBIN TIME Routine 09/20/2013 documented in this encounter Results * (ABNORMAL) Urinalysis with microscopic (10/20/2013 3:40 PM EDT) Pathologist [facility] Glucose UA Negative Negative mg/dL CERNER MILLENNIUM Protein UA 30(A) Negative mg/dL CERNER MILLENNIUM Bilirubin UA Negative Negative mg/dL CERNER MILLENNIUM Comment: Clinical correlation required for positive Urine Bilirubin results as false positive may occur with some drugs and drug related products. If a false positive is suspected a serum total bilirubin should be considered if clinically indicated. Urobilinogen UA Normal Normal mg/dL CERNER MILLENNIUM pH UA 6.5 5.0 - 8.0 CERNER MILLENNIUM Blood UA Negative Negative mg/dL CERNER MILLENNIUM Ketones UA Negative Negative mg/dL CERNER MILLENNIUM Nitrite UA Negative Negative CERNER MILLENNIUM Leukocytes UA Small(A) Negative mcL CERNER MILLENNIUM Appearance UA Clear Clear CERNER MILLENNIUM Spec Rice UA 1.014 1.002 - 1.030 CERNER MILLENNIUM Color UA Yellow Yellow CERNER MILLENNIUM RBC UA <1 0 - 4 /HPF CERNER MILLENNIUM WBC UA 3 0 - 5 /HPF CERNER MILLENNIUM Bacteria UA Occasional /HPF CERNER MILLENNIUM Squam Epith UA 6(H) <=4 /HPF CERNE R MILLENNIUM Trans Epith UA 1 <=1 /HPF CERNE R MILLENNIUM Urine specimen (specimen) 10/20/2013 3:40 PM EDT 10/20/2013 3:49 PM EDT Narrative Resulting Agency Comment Spec In Lab Naresh Merrill MD URINE ORDERABLES CERNER MILLENNIUM * Differential, Automated (10/20/2013 3:28 PM EDT) Neutrophils % 57.3 34.0 - 71.0 % CERNER MILLENNIUM Neutr Abs (ANC) 3.41 1.50 - 6.30 x10(3)/mcL CERNER MILLENNIUM Lymphocytes % 25.7 19.0 - 53.0 % CERNER MILLENNIUM Lymphocytes Abs 1.5 1.0 - 3.6 x10(3)/mcL CERNER MILLENNIUM Monocytes % 11.8 4.0 - 13.0 % CERNER MILLENNIUM Monocyte Abs 0.7 0.2 - 1.0 x10(3)/mcL CERNER MILLENNIUM Eosinophils % 4.2 0.0 - 7.0 % CERNER MILLENNIUM Eosinophils Abs 0.2 0.0 - 0.5 x10(3)/mcL CERNER MILLENNIUM Basophils % 0.8 0.0 - 2.0 % CERNER MILLENNIUM Basophils Abs 0.0 0.0 - 0.2 x10(3)/mcL CERNER MILLENNIUM Immature Gran % 0.20 0.00 - 0.66 % CERNER MILLENNIUM Comment: Immature granulocytes(IG's)percentage and absolute count will include metamyelocytes, myelocytes, and promyelocytes. Blood smears from CBCs yielding IG's will be scanned manually for concordance. If this scan disagrees with the automated IG or if promyelocytes are noted, a manual differential will be performed. [place] Gran Abs 0.01 0.00 - 0.05 x10(3)/mcL CERNER MILLENNIUM Blood specimen (specimen) 10/20/2013 3:28 PM EDT 10/20/2013 3:48 PM EDT Narrative Resulting Agency Comment Spec In Lab Naresh Merrill MD HEMATOLOGY ORDERABLE S CERMOOSE GUNTERENNIUM * (ABNORMAL) Hemogram (10/20/2013 3:28 PM EDT) WBC 6.0 4.0 - 10.0 x10(3)/mcL CERNER MILLENNIUM RBC 3.97 3.93 - 5.22 x10(6)/mcL CERNER MILLENNIUM Hemoglobin 13.0 11.2 - 15.7 gm/dL CERNER MILLENNIUM Hematocrit 37.4 34.0 - 45.0 % CERNER MILLENNIUM MCV 94.2(H) 79.0 - 94.0 fL CERNER MILLENNIUM MCH 32.7(H) 26.6 - 32.2 pg CERNER MILLENNIUM MCHC 34.8 32.0 - 36.5 gm/dL CERNER MILLENNIUM Platelets 232 145 - 370 x10(3)/mcL CERNER MILLENNIUM RDWSD 45.2 35.0 - 46.0 fL CERNER MILLENNIUM RDWCV 13.1 10.9 - 14.4 % CERNER MILLENNIUM MPV 10.6 9.0 - 12.0 fL CERNER MILLENNIUM Blood specimen (specimen) 10/20/2013 3:28 PM EDT 10/20/2013 3:48 PM EDT Narrative Resulting Agency Comment Spec In Lab Naresh Merrill MD HEMATOLOGY ORDERABLE S Performing Organization Address [facility] de Phone Number CERMOOSE GUNTERENNIUM * (ABNORMAL) Prothrombin Time (10/20/2013 3:28 PM EDT) PT 24.1(H) 12.5 - 15.5 sec CERNER MILLENNIUM Comment: [facility] Transfusion Committee Guidelines: INR less than 2.0, PTT less than OR equal to 43.5 seconds, or Fibrinogen greater than or equal to 100 mg/dl indicate adequate procoagulant activity for hemostasis in patients without underlying bleeding disorders. INR 2.0(H) 0.9 - 1.1 CERNER MILLENNIUM Blood specimen (specimen) 10/20/2013 3:28 PM EDT 10/20/2013 3:48 PM EDT Narrative Resulting Agency Comment Spec In Lab Naresh Merrill MD HEMATOLOGY ORDERABLE S Performing Organization Address [facility] de Phone Number CERMOOSE GUNTERENNIUM * pro-Brain Natriuretic Peptide (10/20/2013 3:28 PM EDT) ProBNP 74 <=125 pg/mL CERNER MILLENNIUM Blood specimen (specimen) 10/20/2013 3:28 PM EDT 10/20/2013 3:48 PM EDT Narrative Resulting Agency Comment Spec In Lab Naresh Merrill MD CHEMISTRY ORDERABLES Performing Organization Address [facility] de Phone Number CERMOOSE GUNTERENNIUM * (ABNORMAL) Comprehensive metabolic panel (non-fasting) (10/20/2013 3:28 PM EDT) Glucose Lvl 86 60 - 199 mg/dL CERNER MILLENNIUM Comment:Diabetes: >=200 mg/d L plus symptoms BUN 12 8 - 18 mg/dL CERNER MILLENNIUM Creatinine 0.96 0.70 - 1.20 mg/dL CERNER MILLENNIUM Comment: Please note that the pediatric reference intervals supplied above were not validated at [facility]. Results from pediatric patients should be interpreted in conjunction to the patient's age, height and muscle mass. Sodium 143 135 - 145 mmol/L CERNER MILLENNIUM Potassium 3.6 3.5 - 5.0 mmol/L CERNER MILLENNIUM Comment: Please note: ??Patients with WBC >100,000 may have falsely elevated Potassium levels. ??For accurate Potassium quantification in these patients send serum separator tube (gold top) for subsequent determinations. ??Contact the Clinical Chemistry Laboratory if there are any questions. Chloride 107 98 - 107 mmol/L CERNER MILLENNIUM CO2 25 22 - 31 mmol/L CERNER MILLENNIUM Anion Gap 11 5 - 15 mmol/L CERNER MILLENNIUM Calcium 9.5 8.5 - 10.5 mg/dL CERNER MILLENNIUM Total Protein 7.1 6.4 - 8.3 gm/dL CERNER MILLENNIUM Albumin 4.2 3.2 - 5.2 gm/dL CERNER MILLENNIUM AST 23 0 - 30 unit/L CERNER MILLENNIUM ALT 24 0 - 30 unit/L CERNER MILLENNIUM Alk Phos 125(H) 40 - 104 unit/L CERNER MILLENNIUM Total Bilirubin 0.4 0.2 - 1.3 mg/dL CERNER MILLENNIUM Bili, Direct 0.1 0.0 - 0.3 mg/dL CERNER MILLENNIUM Estimated GFR >60 >=60 CERNER MILLENNIUM Comment: This estimated GFR (eGFR) value was calculated using the MDRD equation which has been validated on patients between the ages of 18 and 70. The MDRD should not be used to assess kidney function in patients < 18 years of age or in patients with extremes of body mass, or in patients with acute kidney failure. This value should be multiplied by 1.2 for patients. For further information please copy and paste the following links into your internet browser. http://[employer]/DHnkdep http://[employer]/DHMCnkf Blood specimen (specimen) 10/20/2013 3:28 PM EDT 10/20/2013 3:48 PM EDT Narrative Resulting Agency Comment Spec In Lab Naresh Merrill MD CHEMISTRY ORDERABLES CERNER MILLENNIUM * C4 Complement (10/20/2013 3:28 PM EDT) C4 Complement 40 10 - 40 mg/dL [facility] Blood specimen (specimen) 10/20/2013 3:28 PM EDT 10/20/2013 3:48 PM EDT Narrative Resulting Agency Comment Spec In Lab Naresh Merrill MD CHEMISTRY ORDERABLES Performing Organization Address [facility] Co de Phone Number [facility] * C3 Complement (10/20/2013 3:28 PM EDT) C3 Complement 156 90 - 180 mg/dL [facility] Blood specimen (specimen) 10/20/2013 3:28 PM EDT 10/20/2013 3:48 PM EDT Narrative Resulting Agency Comment Spec In Lab Naresh Merrill MD CHEMISTRY ORDERABLES Performing Organization Address [facility] Co de Phone Number [facility] * DNA Antibody (Double-Stranded) (10/20/2013 3:28 PM EDT) DNA Ab (DS) Neg Neg [facility] Blood specimen (specimen) 10/20/2013 3:28 PM EDT 10/21/2013 8:25 AM EDT Narrative Resulting Agency Comment Spec In Lab Naresh Merrill MD CHEMISTRY ORDERABLES Performing Organization Address [facility] Co de Phone Number [facility] * (ABNORMAL) Prothrombin Time (09/20/2013) Creatinine 1.1 BUN 11 Sodium 142 137 - 147 Potassium 3.7 3.4 - 5.3 AST 31 13 - 35 ALT 35 7 - 35 Calcium 9.0 8.7 - 10.7 CO2 24 22 - 29 Alk Phos 146 Albumin 3.8 3.5 - 5.0 TSH 2.77 Vit D, 25-Hydroxy 26.3 INR 3.1(A) 0.9 - 1.1 Blood specimen (specimen) 09/20/2013 Historical Provider HEMATOLOGY ORDERA BLES documented in this encounter Visit Diagnoses Diagnosis SLE (systemic lupus erythematosus)- Primary Systemic lupus erythematosus Antiphospholipid antibody syndrome Primary hypercoagulable state documented in this encounter Care Teams Champagne Maker Relationship Specialty Start Date End Date Damari Gonzalez APRN PCP - General 01/20/13 06/01/16 documented as of this encounter
--- OUTSIDE RECORDS SUMMARY | 2023-11-04 15:21 | XMS_ITS | Encounter Summary ---
Author Organization [facility] [address] Care Team Providers Care Trimmer Climber Name Role Phone Alaina Peralta APRN Primary Care Provider [phone]- [phone] Reason for Visit * Reason Comments Obstructive Sleep Apnea Encounter Details Date Type Department Care Team (Late st Contact Info) Description 04/12/2013 2:25 PM EST Office Visit Sleep Center at [address] [phone] Clarissa Boyd, [facility] JAN on CPAP (Primary Dx) [...] Sign Reading Time Taken Comments Blood Pressure 100/70 04/12/2013 2:12 PM EST Pulse 68 04/12/2013 2:12 PM EST Temperature - - Respiratory Rate - - Oxygen Saturation 97% 04/12/2013 2:12 PM EST Inhaled Oxygen Concentration - - Weight 90.7 kg (200 lb) 04/12/2013 2:12 PM EST Height 162.6 cm (5' 4) 04/12/2013 2:12 PM EST Body Mass Index 34.33 04/12/2013 2:12 PM EST documented in this encounter Progress Notes * Shannon Capps MD - 04/12/2013 3:44 PM EST I evaluated this Ms. Cecilia Dumont with Cynthia Boyd CRT and performed hadley aspects of the history and examination. I actively participated in the formulation of the management strategy. I have reviewed Cynthia Boyd CRT's note and agree with the assessment and recommendations. SHANNON CAPPS MD * [place] Clarissa LUCIANA MontielT - 04/12/2013 2:20 PM EST Sleep Medicine Clinical Health Specialist Brief Follow-Up Note HPI: Ms. Cecilia Dumont is a 43 y.o. female seen for follow-up of obstructive sleep apnea. Patientpresents today for follow-up in PAP clinic: Shannon Capps MD Physician 01/20/2013 4:38 PM Signed Sleep Medicine Consultation Note HPI: Ms. Cecilia Dumont is a 43 y.o. female seen at the request of Dr. Peralta for advice regarding suspected obstructive sleep apnea. She was previously diagnosed in 2005 at [facility] with an overall AHI of 31/hr (AI 5.4/hr) at a weight of 274 lbs. She was started on CPAP 12cm - but was not seen in follow up . She obtained replacement masks over the years and used the machine up until about 2 yrs ago. Before that, she denied any tolerance issues. However, the mask at time was annoying, poor fit, and it was hard to move in bed. Two years ago, she began to have problems with the machine itself. She stopped using it altogether and moved to [place] -but didn't have insurance at the time. She returned in Dec - tried to use the machine again without the ability to get it to function. She reportssnoring, daytime sleepiness and want to start treatment again. When she was on PAP therapy, she hadbetter quality sleep, less awakening, and felt refreshed. SInce sleep testing, she has gained about25 lbs. Machine: BIPAP PRO. I plugged it in, but could not get the machine to start. Unclear what setting. Ye Sosa Medium - excellent condition. She has many medical issues - things are generally stable but, she is getting ECHO and MRI of heartdue to concerns of restrictive pericarditis due to severe dyspnea with exertion (up stairs, etc. ) Reccomendations: 1) AUTOPAP 6 - 18 cm, ?Quattro Air. Return to CPAP clinic to assess her initial response, trouble shoot any mask fit issues, and ensure no significant central apnea/periodic breathing. 2) Driving safety was reviewed with patient. If the patient feels too sleepy to drive he/she knows not to drive. If he/she becomes sleepy while driving he/she will stick puller and nap. 3) Follow up with me in about 3 months to review her overall response/ Treatment: CPAP Auto Pressure: 6-18 cm Interface: FFM-Quattro Air Fit: Very good Chin strap: no Humidifier Settin/5 Snoring: no Mouth Breathing: yes Dry Mouth: Yes (will try Biotine mouth wash) Patient Perceived Outcome: Patient reports improvement in the quality of night time rest: Yes sleeping through the night, not waking at all Patient reports improvement in day time fatigue/energy: Yes energy level is very good. Daytime Symptoms: [place]: 12/24 Naps: Not at all Involuntary Dozing: The only time is if she is a passenger in a car Driving: Not drowsy ROS: ENT: Nasal Obstruction: none Constitutional: Weight stable Sleep Pattern: Bedtime: Mid-night or after the 11 pm news, then will affix the mask, is asleep promptly, sleep position lateral to supine Wake time: 6 am Awakenings: Nocturia-none Compliance Card Data: Date Range: Settin-18 cm (9.5 cm) Residual AHI: 1.9 Vibratory Snore Index: 5.8 % Night in Large Leak: 0.1% Average usage days used-Hours: 5 hr 38 mn # Days of usage: 29/34 % Days used > 4 hours 77%. Total % Days used 85% Physical Exam: Respirations: Even and not labored at rest DERM: Skin Irritation none Filed Vitals: 04/12/13 1412 BP: 100/70 Pulse: 68 Height: 162.6 cm (5' 4) Weight: 90.719 kg (200 lb) SpO2: 97% Assessment Ms. Cecilia Dumont is a 43 y.o. female seen for obstructive sleep apnea. Patients card data shows patient is using CPAP routinely. Patients AHI, VSI and Leak appear to be well treated with the current pressure. Patient does have different pressure needs when she goes from side to back. So a pressure adjustment to start Auto at 8-18 cm was done on site today. She knows to call if not comfortable with the change. Patient has good tolerance and adherence and realized improvement in both nocturnal and daytime symptoms. RTC in 3 mos. Humidifier/Heater function/rational and settings were reviewed with the patient Mask fit/assembly also was reviewed with the patient along with supply replacement Time spent face to face: 30 Min. Recomendations: 1) CPAP 8-18 cw with ramp. Humidity setting 4/5. 2) Follow-up: RTC 3 mos/PRN with Cynthia 3) Driving safety discussed, recommend patient not drive if drowsy, if drowsy while driving to pullover and take a nap. 4) Script to NST to note the pressure adjustment done on site via card today. The patient indicates understanding of these issues and agrees with the plan. The case was discussed with Dr. Capps who saw the patient and participated in the formulation and decision making. documented in this encounter Plan of Treatment Upcoming Encounters Date Type Department Care Team (Late st Contact Info) Description 11/11/2023 3:00 AM EDT [place] [address] documented as of this encounter Visit Diagnoses Diagnosis JAN on CPAP- Primary Obstructive sleep apnea (adult) (pediatric) documented in this encounter Care Teams Trimmer Climber Relationship Specialty Start Date End Date Alaina Peralta APRN PCP - General 01/20/13 06/01/16 documented as of this encounter
--- OUTSIDE RECORDS SUMMARY | 2023-11-04 15:22 | XMS_ITS | Encounter Summary ---
[place] [address] Care Team Providers Care Electronic Equipment Repairer Name Role Phone Hawk Phelan APRN Primary Care Provider [phone] Reason for Visit * Reason Onset Date Comments Medication Refill 05/17/2012 Encounter Details Date Type Department Care Team (Late st Contact Info) Description 05/17/2012 Refill [place] [phone] Shanelle Lozada MD [address] [place] [address] [place] [address] Social History Tobacco Use Types Packs/Day Years [...] 11/11/2023 3:00 AM EDT [place] [phone] documented as of this encounter Visit Diagnoses Not on filedocumented in this encounter Care Teams Electronic Equipment Repairer Relationship Specialty Start Date End Date Hawk Phelan APRN PCP - General 01/19/12 01/19/13 documented as of this encounter
--- OUTSIDE RECORDS SUMMARY | 2023-11-04 15:22 | XMS_ITS | Encounter Summary ---
[place] [address] Care Team Providers Care Script Reader Name Role Phone Shasta Dixon MD Primary Care Provider [phone]- [phone] Reason for Visit * Reason Comments Urinary Frequency Encounter Details Date Type Department Care Team ([facility] st Contact Info) Description 12/11/2010 10:20 AM EDT Office [place] [phone] Tay Alaniz MD [facility] [place] [address] UTI (urinary tract infection) (Primary Dx) Discharge Disposition: Home Social History Tobacco Use Types Packs/Day Years Used Date Smoking Tobacco: Former Cigarettes Q uit: 10/22/2007 Alcohol Use Standard Drinks/Week Comments Not Asked 0 (1 standard drink = 0.6 oz pur e alcohol) Sex and Gender Information Value Date Recorded Sex Assigned at Female 05/01/2021 10:41 AM EST Gender Identity Female 05/01/2021 10:41 AM EST Sexual Orientation Straight 05/01/2021 10 :41 AM EST documented as of this encounter Last Filed Vital Signs Vital Sign Reading Time Taken Comments Blood Pressure 91/41 12/11/2010 10:40 AM EDT Pulse 70 12/11/2010 10:40 AM EDT Temperature 37.2 ??C (99 ??F) 12/11/2010 10:40 AM EDT Respiratory Rate 16 12/11/2010 10:40 AM EDT Oxygen Saturation - - Inhaled Oxygen Concentration - - Weight 78.9 kg (174 lb) 12/11/2010 10:40 AM EDT Height 162.6 cm (5' 4) 12/11/2010 10:40 AM EDT Body Mass Index 29.87 12/11/2010 10:40 AM EDT documented in this encounter Patient Instructions * Patient Instructions* Tay Alaniz MD - 12/11/2010 11:03 AM EDT 1. Take Bactrim - 1 tablet twice daily for 7 days. 2. Call if you are still having symptoms after 7 days. 3. Call the anti-coagulation clinic to let them know you are on an antibiotic for your urinary tract infection. documented in this encounter Progress Notes * Tay Alaniz MD - 12/11/2010 10:53 AM EDT Subjective: Patient ID: Cecilia Lowery is a 40 y.o. female. HPI Comments: She presents for possible UTI. She c/o urinary frequency with small voids. She also c/o back ache. She is also having dysuria. She denies fevers. She has had some chills. She spent yesterday in bed, because she wasn't feeling well. She has had symptoms x 4 days. She tried cranberry juice, but that did not help. She has a lupus and has had multiple UTIs in the past, but last one was a few years ago. Review of Systems See above. Objective: Physical Exam Constitutional: She appears well-developed and well-nourished. No distress (non- toxic appearing). Abdominal: Mild suprapubic discomfort Musculoskeletal: No CVA tenderness. Has b/l lumbar paraspinal muscle tenderness. Urine dipstick shows positive for WBC's, positive for protein and positive for urobilinogen, as well as blood. Assessment and Plan: 40 yo f with UTI, most likely lower urinary tract infection, but with her h/o lupus and repeated UTIs, will treat for 7 days. Past urine cx have been sensitive to bactrim. -Bactrim DS BID x 7 days -RTC prn -She will let the anti-coag clinic know that she is on an antibiotic. Next INR check currently scheduled for 12/16, per patient. documented in this encounter Plan of Treatment Upcoming Encounters Date Type Department Care Team (Late st Contact Info) Description 11/11/2023 3:00 AM EDT Anti-Coag Telephone Visit [facility] [place] [address] Scheduled Orders Name Type Priority Associated Diagnoses Orde r Schedule Urine culture Clean Catch Urine Microbiology Routine UTI (urinary tract infection) Ordered: 12/11/2010 documented as of this encounter Procedures Procedure Name Priority Date/Time Associated Diagnosis Comments URINE CULTURE Routine 12/11/2010 11:18 AM EDT POCT URINE DIPSTICK Routine 12/11/2010 1 0:30 AM EDT UTI (urinary tract infection) documented in this encounter Results * URINE CULTURE (12/11/2010 11:18 AM EDT) Urine Culture ? Patient Name: CECILIA LOWERY ? Ordered By: TAY ALANIZ ? MR#: [id number] ?LOC: ??3M ? /Sex: ?? 2 (40 years), ? Female ? PROCEDURE: Urine Culture ?SOURCE: U CC ? COLLECTED: 12/11/2010 11:18 ? STARTED: 12/11/2010 12:15 ? FINAL REPORT ? Final Report ? Verified: 09:11 ? 10,000-49,0 00 cfu/ml mixed mucosal paramjit ? ____ [facility] Urine specimen obtained by clean catch procedure (specimen) 12/11/2010 11:18 AM EDT 12/11/2010 12:14 PM EDT Tay Alaniz MD MICROBIOLOGY - GENER AL ORDERABLES [facility] * POCT urine dipstick (12/11/2010 10:30 AM EDT) POC Sp [place] 1.020 1.002 - 1.030 POC pH, UA 5.0 5.0 - 8.5 POC Leuk, UA trace Negative - Negative POC Nitrite, UA neg Negative - Negative POC Protein, UA trace Negative - Negative mg/dL POC Glucose, UA norm Normal - Normal mg/dL POC Ketone, UA neg Negative - Negative POC Urobil, UA 1 0.2 - 1.0 mg/dL POC Bili, UA + Negative - Negative POC Blood, UA trace Negative - Negative mallory/uL 12/11/2010 10:3 0 AM EDT Tay Alaniz MD POINT OF CARE TEST O RDERABLES documented in this encounter Visit Diagnoses Diagnosis UTI (urinary tract infection)- Primary Urinary tract infection, site not specified documented in this encounter Care Teams Script Reader Relationship Specialty Start Date End Date Shasta Dixon MD [facility] [address] [place] [address] PCP - General 08/07/10 01/18/12 documented as of this encounter
--- OUTSIDE RECORDS SUMMARY | 2023-11-04 15:22 | XMS_ITS | Encounter Summary ---
[place] [address] Care Team Providers Care Pedorthist Name Role Phone Hawk Phelan APRN Primary Care Provider [phone] Reason for Visit * Reason Onset Date Comments Prior Authorization 11/01/2012 Encounter Details Date Type Department Care Team (Late st Contact Info) Description 11/01/2012 Telephone [place] [phone] Lawrence Madden Prior Authorization Social History Tobacco Use Types [...] encounter Miscellaneous Notes * Telephone Encounter - Lawrence Madden - 11/01/2012 8:33 AM EDT Medication Prior Authorization SCAR DOWNS MD Medication name/dose/directions: RITUXIMAB Rationale for request: ANTIPHOSPHOLIPID ANTIBODY SYMDROME Health plan: [employer] Authorizing sales representative printing name: Faxed to health plan on: 10/19/2012 Health plan decision: Approved Quantity approved: Authorization number: Start date: 10/22/2012 End date: 10/22/2014 Patient notified? yes Pharmacy notified? yes documented in this encounter Plan of Treatment Upcoming Encounters Date Type Department Care Team (Late st Contact Info) Description 11/11/2023 3:00 AM EDT Anti-Coag Telephone Visit [facility] [place] [address] documented as of this encounter Visit Diagnoses Not on filedocumented in this encounter Care Teams Pedorthist Relationship Specialty Start Date End Date Hawk Phelan APRN PCP - General 01/19/12 01/19/13 documented as of this encounter
--- OUTSIDE RECORDS SUMMARY | 2023-11-04 15:22 | XMS_ITS | Encounter Summary ---
[place] [address] Care Team Providers Care Customer Relations Advisor Name Role Phone Shasta Dixon MD Primary Care Provider [phone]- [phone] Encounter Details Date Type Department Care Team (Late st Contact Info) Description 10/04/2010 Anti-Coag Telephone [place] [address] Shaw Nixon, RN Social History Tobacco Use Types Packs/Day Years Used Date Smoking Tobacco: Never Assessed Sex and Gender Information Value Date Recorded Sex Assigned at Female 05/01/2021 10:41 AM EST Gender Identity Female 05/01/2021 10:41 AM EST Sexual Orientation Straight 05/01/2021 10 :41 AM EST documented as of this encounter Patient Instructions * Patient Instructions* Shaw Nixon, RN - 10/04/2010 11:13 AM EDT Your INR result today is: 2.3 ([facility]) Therapeutic Range 2.0-3.5 Please take your Warfarin, (Coumadin ??), dose at or about 5:30 pm each day as instructed. If you should miss a dose, it is OK to take it as soon as you remember provided it is within the same day, do not double up on the following day but call your anticoag provider for instructions. Please call to report any unusual signs or symptoms of abnormal bleeding or bruising noted or seek medical attention if necessary. It is also important to call and report any changes in your routine or medication regime including those over the counter drugs or supplements as this could have an effect on your warfarin dosing needs. Please follow the dosing instructions outlined bellow until your next scheduled INR visit. Pill size 2.5mg DAY Sun Thu Total # Mg per day 7.5mg 7.5mg 7.5mg 8.75mg 7.5mg 7.5mg 8.75mg Number of Pills 3 3 3 3 1/2 3 3 3 1/2 Your next INR is scheduled for: 2 weeks [facility] Anticoagulation Clinic [phone] documented in this encounter Progress Notes * Shaw Nixon RN - 10/04/2010 11:12 AM EDT Anticoagulation Telephone Note Indication: Antiphospholipid antibody, Hx CVA, Dilated cardiomyopathy Duration of treatment: Lifelong with annual review Range: 2.0-3.5 INR : 2.3 Drawn by: [facility] Monitored by: JIE Next INR Due: 10/17 Pt informs me she has relocated to [facility] and will come to [facility] for next INR check Warfarin dose : Increased Decreased x Maintained Comment Bleeding: Epistaxis Black tarry stools Gingival bleeding Increased bruising Hematuria Other: Hemoptysis x No bleeding / bruising noted Comment: Symptoms of recurring primary event: Chest Pain Dyspnea Palpitations Headache Dizziness Edema Confusion Slurred Speech Weakness Visual changes Tender / Red / Swollen Extremities x No symptoms reported Other: Comment: Recent medication changes: ( Include prescription /OTC/ herbal) Yes x No Comment: Have you missed any dose of Coumadin this past week? Yes x No Comment Any Illness/ Cold SX/ Diarrhea/Constipation > 48 hours: Yes x No Comment Dietary Changes: Yes x No Comment: Have you increased or decreased alcohol consumption recently? Yes x No Comment: Have you significantly altered your level of activity over the past few weeks? Yes x No Comment Upcoming Invasive Procedures Planned? Yes x No Comment: Travel Plan: Yes, travel precautions reviewed. x No Comment: Patient understands and agrees with plan of care documented in this encounter Plan of Treatment Upcoming Encounters Date Type Department Care Team (Late st Contact Info) Description 11/11/2023 3:00 AM EDT Anti-Coag Telephone Visit [facility] [place] [address] documented as of this encounter Visit Diagnoses Not on filedocumented in this encounter Care Teams Customer Relations Advisor Relationship Specialty Start Date End Date Shasta Dixon MD [facility] [address] [place] [address] PCP - General 08/07/10 01/18/12 documented as of this encounter
--- OUTSIDE RECORDS SUMMARY | 2023-11-04 15:22 | XMS_ITS | Encounter Summary ---
[place] [address] Care Team Providers Care Teradata Solution Architect Name Role Phone Shasta Dixon MD Primary Care Provider [phone]- [phone] Reason for Visit * Reason Onset Date Comments Medication Refill 12/26/2010 Encounter Details Date Type Department Care Team (Late Contact Info) Description 12/26/2010 [place] [phone] Shanelle Lozada MD [address] [place] [address] [place] [address] Lupus Social History Tobacco Use Types Packs/Day Years [...] 11/11/2023 3:00 AM EDT [place] [address] documented as of this encounter Visit Diagnoses Diagnosis Lupus Systemic lupus erythematosus documented in this encounter Care Teams Teradata Solution Architect Relationship Specialty Start Date End Date Shsata Dixon MD [facility] [address] [place] [address] PCP - General 08/07/10 01/18/12 documented as of this encounter
--- OUTSIDE RECORDS SUMMARY | 2023-11-04 15:22 | XMS_ITS | Encounter Summary ---
Author [place] [address] Care Team Providers Care Sneller Hand Name Role Phone Shasta Dixon MD Primary Care Provider +1- [phone] Reason for Visit * Reason Comments Medication Refill Encounter Details Date Type Department Care Team (Late st Contact Info) Description 11/01/2011 [place] [phone] Shanelle Lozada MD [address] [place] [address] [place] [address] Social History Tobacco Use Types Packs/Day Years [...] 11/11/2023 3:00 AM EDT Anti-[place] [address] documented as of this encounter Visit Diagnoses Not on filedocumented in this encounter Care Teams Sneller Hand Relationship Specialty Start Date End Date Shasta Dixon MD [facility] [place] [address] PCP - General 08/07/10 01/18/12 documented as of this encounter
--- OUTSIDE RECORDS SUMMARY | 2023-11-04 15:22 | XMS_ITS | Encounter Summary ---
[place] [address] Care Team Providers Care Temperature Control Inspector Name Role Phone Shasta Dixon MD Primary Care Provider +1- [phone] Reason for Visit * Reason Onset Date Comments Medication Refill 12/27/2010 Encounter Details Date Type Department Care Team (Late st Contact Info) Description 12/27/2010 Refill [place] [address] Shanelle Lozada MD [address] [place] [address] [place] [address] Lupus (Primary Dx) Social History Tobacco Use Types [...] Telephone Visit [facility] [place] [address] documented as of this encounter Visit Diagnoses Diagnosis Lupus- Primary Systemic lupus erythematosus documented in this encounter Care Teams Temperature Control Inspector Relationship Specialty Start Date End Date Shasta Dixon MD [facility] [address] [address] PCP - General 08/07/10 01/18/12 documented as of this encounter
--- OUTSIDE RECORDS SUMMARY | 2023-11-04 15:22 | XMS_ITS | Encounter Summary ---
[place] [address] Care Team Providers Care Spinning Frame Tender Name Role Phone Heidi Monge MD Primary Care Provider [phone] Reason for Visit * Reason Comments Congestive Heart Failure Encounter Details Date Type Department Care Team (Late st Contact Info) Description 10/21/2010 1:40 PM EDT Follow-Up Cardiology at [address] [phone] Susan Ignacio, CABLE TOWER OPERATOR [facility] [address] Other primary cardiomyopathies; Encounter for long-term (current) use of anticoagulants Discharge Disposition: Home Social History Tobacco Use [...] Sign Reading Time Taken Comments Blood Pressure 94/62 10/21/2010 1:31 PM EDT Pulse 62 10/21/2010 1:31 PM EDT regular Temperature - - Respiratory Rate - - Oxygen Saturation 97% 10/21/2010 1:3 1 PM EDT at rest, room air Inhaled Oxygen Concentration - - Weight 77.6 kg (171 lb) 10/21/2010 1:31 PM EDT Height 162.6 cm (5' 4) 10/21/2010 1:31 PM EDT Body Mass Index 29.35 10/21/2010 1:31 PM EDT documented in this encounter Progress Notes * Susan Ignacio, CABLE TOWER OPERATOR - 10/21/2010 3:09 PM EDT HEART FAILURE CLINIC NOTE Cecilia Dumont 1970 40 y.o. PCP: HEIDI MONGE MD Date: 10/21/2010 Ms. Cecilia Dumont is here for follow-up with the Heart Failure Team for annual evaluation of dilated CM, with reverse remodeling and prior hx of heart failure. This is the first time I have met Cecilia, but she tells me she has been doing well for several years, and is now seen on an annual basis only. She is free of all cardiopulmonary symptoms. Has not had any Rituxan recently for her lupus which remains quiescent. Her big stress is her father lost his job, and her parents were struggling financially. She, her and two teens have relocated to [place] and are now living with her parents,her sister, her sister's two yr old and the baby's father. She says its stressful for all, but she is handling it. The remainder of ROS is negative. Past Medical History: 1. Dilated cardiomyopathy, likely secondary to SLE - now resolved and stable. a. Echocardiogram January 28, 2005: 1.) Inferior wall hypokinesis. 2.) Improved left ventricle function (EF 60%) 3.) Improved, mild aortic regurgitation (1+/4+). 4.) Other findings are detailed in report. b. Admission June 23, 2004 for SLE flare c/b pulmonary hemorrhage, anemia, ATN, HF and newly diagnosed DCM. 1. Required short-term intubation. 2. Gilman revealed normal PI, PCW and CVP. 3. Echocardiogram LVEF 35-40%, moderate AI, moderate MR 4. Renal ultrasound revealed no stenosis. c. 06/13/05 LVEF 60%. Normal left and right ventricular chamber size, wall thickness, in systolic function. No pulmonary hypertension. Normal pericardium. Patent frame and ovally with predominant leftto right shunting by colored doppler. d. TASHA 07/08/05. No evidence of PFO by colored doppler imaging or with use of agitated saline. LVEF 60%. Echo 10/10 LVEF= 60% No recurrent effusion Echo 10/11 LVEF= 65% No recurrent effusion Echo 10/12 LVEF= 65% No effusion e. AHA/ACC stage C, NYHA FTC III-IV-->I. 2. History of chest pain. a. Admission July 24 for severe chest pain. 1. Cardiac cath July 25, 2004. No evidence of coronary artery disease. Severely decreased LVEF (calculated 33%). Mild mitral regurgitation. Rightheart cath revealed RA 4-5, 18/5, mean 10, PCW 2, CO/CI 4.13/2.4 (td), 3.92/2.28 (Danielle).TSR 1918, SVR 1898, TPR 194, PVR 155 (TD), LVEDP 7. Endomyocardial biopsy obtained--> normal biopsy 2. Ruled out for NM. b. 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 3. Systemic lupus erythematous with discoid rash, arthritis - (s/p knee replacements), oral ulceration, and pleuropericarditis. a. Has been on Rituxan, plaquenil and chronic steroids-->d/c. b. Currently on plaquenil 10/11-->stable. 4. Antiphospholipid antibody syndrome, + lupus anticoagulant and Anticardiolipin Ab associated with lupus. a. History transient ischemic attacks, CVA, miscarriages, migraine headaches, and thrombocytopenia,on lifelong anticoagulation with low molecular heparin. b. No history of venous or large artery thrombosis, no DVT or PE. c. Coumadin re-initiated 08/11 for target INR 2-3.0. 5. Hypertension - well controlled. 6. Depression, on SSRI, stable. 7. Risk of osteoporosis, on Actonel. 8. Prednisone associated weight gain. 9. Parvovirus infection, 2003. 10. Menorrhagia. a. S/p endometrial ablation. 11. History of severe diaphoresis, unclear etiology. 12. History of headaches. Influenza Vaccine - 01/12 H1N1 - 01/12 Pneumovax - ? Smoking - no ETOH - no Dry Weight - 179 lbs (lowest weight 154 lbs) - increase in body mass Medications: Current outpatient prescriptions Medication Sig Dispense Refill ??? lisinopril (PRINIVIL;ZESTRIL) 10 mg tablet Take 1 tablet by mouth daily. 90 tablet 3 ??? metoprolol succinate (TOPROL XL) 50 mg 24 hr tablet Take 1 tablet by mouth daily. 90 tablet 3 ??? simvastatin (ZOCOR) 80 mg tablet Take 1 tablet by mouth daily. 90 tablet 3 ??? warfarin (COUMADIN) 2.5 mg tablet Take 1 tablet by mouth. Take as directed by Coumadin CLinic nurse 360 tablet 3 ??? OXYcodone 5 mg capsule Take 1 capsule by mouth 2 times daily. 60 capsule 0 ??? escitalopram (LEXAPRO) 20 mg tablet Take 1 tablet by mouth daily. 30 tablet 6 ??? topiramate (TOPAMAX) 25 mg tablet Take 1 tablet by mouth 2 times daily. 120 tablet 1 ??? hydroxychloroquine (PLAQUENIL) 200 mg tablet 200 mg PO Twice daily ??? multivitamin with minerals tablet 1 Tablet(s), PO, Once daily ??? fluconazole (DIFLUCAN) 150 mg tablet 150 MG = 1 Tablet(s), PO, as directed ??? pantoprazole (PROTONIX) 40 mg tablet 40 MG = 1 Tablet(s), PO, Once daily ??? pramipexole (MIRAPEX) 0.5 mg tablet 0.5 MG = 1 Tablet(s), PO, QHS Allergies: No Known Allergies Interim Social History: Changes in job, home situation, tobacco or alcohol use: She and her 12 yo dtr take walks every day. Changes in Relevant Family History: NONE Physical Exam: BP 94/62 Pulse 62 Ht 1.626 m (5' 4) Wt 77.565 kg (171 lb) BMI 29.35 kg/m2 SpO2 97% General: Pleasant young well-nourished male, alert and oriented x3 in NAD. Very pleasant and talkative. HEENT/Neck: Sclerae nonicteric, moist oral mucosa without lesions,dentition fair, no lymphadenopathy. Carotid upstroke brisk, no bruits. Cardiac: Regular rhythm S1 S2 normal, no M/G JVP 6 cm Lungs: Clear bilaterally to auscultation Abdomen: soft, nontender, + bowel sounds all 4 quadrants. No organomegaly. -HJR Extremities: No clubbing, cyanosis. Edema: None Pulses present. Skin: No bruises, rashes, or petechiae. Tattoo right lateral ankle. Neuro: No focal neurological deficits. Musculoskeletal: No spinal or chest wall tenderness. : No CVA tenderness Psych: Normal affect, in good spirits. Laboratory: Recent Results (from the past 72 hour(s)) CBC (WITH DIFF) Component Value Range ??? WBC 6.8 4.0 - 10.0 (x10(3)/mcL) ??? RBC 3.91 (*) 3.93 - 5.22 (x10(6)/mcL) ??? Hemoglobin 12.5 11.2 - 15.7 (gm/dL) ??? Hematocrit 36.4 34.0 - 45.0 (%) ??? MCV 93.1 79.0 - 94.0 (fL) ??? MCH 32.0 26.6 - 32.2 (pg) ??? MCHC 34.3 32.0 - 36.5 (gm/dL) ??? Platelets 232 145 - 370 (x10(3)/mcL) ??? RDWSD 44.0 35.0 - 46.0 (fL) ??? RDWCV 12.9 10.9 - 14.4 (%) ??? MPV 10.5 9.0 - 12.0 (fL) COMPREHENSIVE METABOLIC PANEL (NON-FASTING) Component Value Range ??? Glucose Lvl 83 60 - 199 (mg/dL) ??? BUN 19 (*) 8 - 18 (mg/dL) ??? Creatinine 0.76 0.70 - 1.20 (mg/dL) ??? Sodium 142 135 - 145 (mmol/L) ??? Potassium 4.0 3.5 - 5.0 (mmol/L) ??? Chloride 108 (*) 98 - 107 (mmol/L) ??? CO2 26 22 - 31 (mmol/L) ??? Anion Gap 8 5 - 15 (mmol/L) ??? Calcium 9.2 8.5 - 10.5 (mg/dL) ??? Total Protein 6.9 6.4 - 8.3 (gm/dL) ??? Albumin 4.3 3.2 - 5.2 (gm/dL) ??? AST 19 0 - 30 (unit/L) ??? ALT 14 0 - 30 (unit/L) ??? Alk Phos 75 40 - 104 (unit/L) ??? Total Bilirubin 0.3 0.2 - 1.3 (mg/dL) ??? Bili, Direct 0.1 0.0 - 0.3 (mg/dL) ? ? Estimated GFR >60 >=60 PRO-BRAIN NATRIURETIC PEPTIDE Component Value Range ? ? ProBNP 171 (*) <=125 (pg/mL) URIC ACID Component Value Range ??? Uric Acid 5.1 2.5 - 6.5 (mg/dL) PROTHROMBIN TIME Component Value Range ??? PT 29.4 (*) 12.3 - 14.7 (sec) ??? INR 2.7 (*) 0.9 - 1.1 REFLEX LAB-A-DIFF Component Value Range ??? Neutrophils % 64.7 34.0 - 71.0 (%) ??? Neutr Abs (ANC) 4.40 1.50 - 6.30 (x10(3)/mcL) ??? Lymphocytes % 23.5 19.0 - 53.0 (%) ??? Lymphocytes Abs 1.6 1.0 - 3.6 (x10(3)/mcL) ??? Monocytes % 7.3 4.0 - 13.0 (%) ??? Monocyte Abs 0.5 0.2 - 1.0 (x10(3)/mcL) ??? Eosinophils % 3.8 0.0 - 7.0 (%) ??? Eosinophils Abs 0.3 0.0 - 0.5 (x10(3)/mcL) ??? Basophils % 0.7 0.0 - 2.0 (%) ??? Basophils Abs 0.1 0.0 - 0.2 (x10(3)/mcL) ??? Immature Gran % 0.00 0.00 - 0.66 (%) ??? Poonam Gran Abs 0.00 0.00 - 0.05 (x10(3)/mcL) POCT INR Component Value Range ??? POC INR 2.7 (*) 0.9 - 1.1 Cardiology Studies Reviewed: No recent echo Impression: Patient Active Problem List Diagnoses Code ??? CIS - Parvovirus infection-resolved ??? CIS - Systemic lupus erythematous ??? CIS - Antiphospholipid antibody syndrome ??? CIS - Depression ??? CIS - Dilated cardiomyopathy ??? CIS - Entered not Verified ??? CIS - hypertension 1. Hx of dilated CM, likely SLE-induced with reverse remodeling by last echo: will plan to update echo which she hasn't had for a few years. She continues on beta bl and acei without side effects. Doing well. 2. Hx of heart failure: euvolemic. No diuretic needs 3. Hx of HTN: normotensive 4. SLE: per rheumatology Plan: 1. Diagnoses, management, and plan of care reviewed with the patient/. All questions were addressed. 2. Education/Counseling performed: --Review of heart failure signs and symptoms, importance of daily weight monitoring, parameters reviewed for when to call Heart Failure Clinic, dietary sodium intake, activity/exercise and limitations. --Rationale for current medications; potential side effects reviewed with patient. --Labs, test results reviewed with patient. --Immunizations, other recommendations: n/a 3. Medication changes: None at this visit. 4. The following labs, referrals or other testing advised: --Scheduled for echo when at [facility] [place] for next appt in January --CBC, chem panel, proBNP, INR 5. Cardiology follow-up scheduled for: --HF clinic in: 1 yr sooner prn --HFCCM: documented in this encounter Plan of Treatment Upcoming Encounters Date Type Department Care Team (Late st Contact Info) Description 11/11/2023 3:00 AM EDT Anti-Coag Telephone Visit [facility] [place] [phone] documented as of this encounter Procedures Procedure Name Priority Date/Time Associated Diagnosis Comments DIFFERENTIAL, AUTOMATED STAT 10/21/2010 1:16 PM EDT PROTHROMBIN TIME STAT 10/21/2010 1:16 PM EDT Other primary cardiomyopathies Encounter for long-term (current) use of anticoagulants CBC (WITH DIFF) STAT 10/21/2010 1:16 PM EDT Other primary cardiomyopathies Encounter for long-term (current) use of anticoagulants URIC ACID STAT 10/21/2010 1:16 PM EDT Other primary cardiomyopathies Encounter for long-term (current) use of anticoagulants PRO-BRAIN NATRIURETIC PEPTIDE STAT 10/21/2010 1:16 PM EDT Other primary cardiomyopathies Encounter for long-term (current) use of anticoagulants COMPREHENSIVE METABOLIC PANEL (NON-FASTING) STAT 10/21/2010 1:16 PM EDT Other primary cardiomyopathies Encounter for long-term (current) use of anticoagulants documented in this encounter Results * REFLEX LAB-A-DIFF (10/21/2010 1:16 PM EDT) Neutrophils % 64.7 34.0 - 71.0 % CERNER MILLENNIUM Neutr Abs (ANC) 4.40 1.50 - 6.30 x10(3)/mcL CERNER MILLENNIUM Lymphocytes % 23.5 19.0 - 53.0 % CERNER MILLENNIUM Lymphocytes Abs 1.6 1.0 - 3.6 x10(3)/mcL CERNER MILLENNIUM Monocytes % 7.3 4.0 - 13.0 % CERNER MILLENNIUM Monocyte Abs 0.5 0.2 - 1.0 x10(3)/mcL CERNER MILLENNIUM Eosinophils % 3.8 0.0 - 7.0 % CERNER MILLENNIUM Eosinophils Abs 0.3 0.0 - 0.5 x10(3)/mcL CERNER MILLENNIUM Basophils % 0.7 0.0 - 2.0 % CERNER MILLENNIUM Basophils Abs 0.1 0.0 - 0.2 x10(3)/mcL CERNER MILLENNIUM Immature Gran % 0.00 0.00 - 0.66 % CERNER MILLENNIUM Comment: Immature granulocytes(IG's)percentage and absolute count will include metamyelocytes, myelocytes, and promyelocytes. Blood smears from CBCs yielding IG's will be scanned manually for concordance. If this scan disagrees with the automated IG or if promyelocytes are noted, a manual differential will be performed. Poonam Gran Abs 0.00 0.00 - 0.05 x10(3)/mcL CERNER MILLENNIUM Blood specimen (specimen) 10/21/2010 1:16 PM EDT 10/21/2010 1:24 PM EDT Bhavesh Hernadez MD HEMATOLOGY ORDERABLE S [facility] I-Stand * (ABNORMAL) Protime-INR (10/21/2010 1:16 PM EDT) PT 29.4(H) 12.3 - 14.7 sec [facility] katenaBANNERIUM Comment: [facility] Transfusion Committee Guidelines: INR less than 2.0, PTT less than OR equal to 43.5 seconds, or Fibrinogen greater than or equal to 100 mg/dl indicate adequate procoagulant activity for hemostasis in patients without underlying bleeding disorders. INR 2.7(H) 0.9 - 1.1 [facility]enaBANNER[facility]iotix Blood specimen (specimen) 10/21/2010 1:16 PM EDT 10/21/2010 1:24 PM EDT Bhavesh Hernadez MD HEMATOLOGY ORDERABLE S Performing Organization Address [facility] Co de Phone Number [facility] I-Stand * Uric acid (10/21/2010 1:16 PM EDT) Uric Acid 5.1 2.5 - 6.5 mg/dL [facility] Blood specimen (specimen) 10/21/2010 1:16 PM EDT 10/21/2010 1:24 PM EDT Bhavesh Hernadez MD CHEMISTRY ORDERABLES [facility] * (ABNORMAL) Brain natriuretic peptide (10/21/2010 1:16 PM EDT) ProBNP 171(H) <=125 pg/mL CERNER MILLENNIUM Blood specimen (specimen) 10/21/2010 1:16 PM EDT 10/21/2010 1:24 PM EDT Bhavesh Hernadez MD CHEMISTRY ORDERABLES [facility] * (ABNORMAL) Comprehensive metabolic panel (10/21/2010 1:16 PM EDT) Glucose Lvl 83 60 - 199 mg/dL CERNER MILLENNIUM Comment:Diabetes: >=200 mg/d L plus symptoms BUN 19(H) 8 - 18 mg/dL CERNER MILLENNIUM Creatinine 0.76 0.70 - 1.20 mg/dL CERNER MILLENNIUM Sodium 142 135 - 145 mmol/L CERNER MILLENNIUM Potassium 4.0 3.5 - 5.0 mmol/L CERNER MILLENNIUM Comment: Please note: ??Patients with WBC >100,000 may have falsely elevated Potassium levels. ??For accurate Potassium quantification in these patients send serum separator tube (gold top) for subsequent determinations. ??Contact the Clinical Chemistry Laboratory if there are any questions. Chloride 108(H) 98 - 107 mmol/L CERNER MILLENNIUM CO2 26 22 - 31 mmol/L CERNER MILLENNIUM Anion Gap 8 5 - 15 mmol/L CERNER MILLENNIUM Calcium 9.2 8.5 - 10.5 mg/dL CERNER MILLENNIUM Total Protein 6.9 6.4 - 8.3 gm/dL CERNER MILLENNIUM Albumin 4.3 3.2 - 5.2 gm/dL CERNER MILLENNIUM AST 19 0 - 30 unit/L CERNER MILLENNIUM ALT 14 0 - 30 unit/L CERNER MILLENNIUM Alk Phos 75 40 - 104 unit/L CERNER MILLENNIUM Total Bilirubin 0.3 0.2 - 1.3 mg/dL CERNER MILLENNIUM Bili, Direct 0.1 0.0 - 0.3 mg/dL CERNER MILLENNIUM Estimated GFR >60 >=60 CERNER MILLENNIUM Comment: The National Kidney Disease Education Program (NKDEP) has recommended all laboratories report estimated GFR (eGFR) along with plasma creatinine measurements to assist you with recognition of early kidney disease. Caveats: ??Plasma creatinine should be at steady-state (unchanged within the past week). For patients multiply eGFR by 1.2.MDRD equation has not been validated for pediatric patients and is only valid for patients with age >= 18 years. At present, NKDEP does NOT recommend using the MDRD equation for drug dosing purposes and pharmacists should continue to use their current dosing methods. In addition, numerical eGFR values greater than 60 ml/min/1.73 square meters should be treated as > 60, and not an exact number due to greater inaccuracies at these higher values. Per NKDEP, they classify normal renal function as any GFR >60ml/min/1.73 square meters; chronic kidney disease when GFR <60, and renal failure when GFR <15. ??This calculation may not be valid for patients with atypical muscle mass (very lean or obese), acute renal failure, and in patients with diabetic kidney disease. References: http://nkdep.nih.gov/resources/NKDEP_Suggestn4Labs_0606_508.pdf http://www.kidney.org/professionals/kls/pdf/faq_gfr.pdf Blood specimen (specimen) 10/21/2010 1:16 PM EDT 10/21/2010 1:24 PM EDT Bhavesh Hernadez MD CHEMISTRY ORDERABLES [facility] * (ABNORMAL) CBC (with Diff) (10/21/2010 1:16 PM EDT) WBC 6.8 4.0 - 10.0 x10(3)/mcL CERNER MILLENNIUM RBC 3.91(L) 3.93 - 5.22 x10(6)/mcL CERNER MILLENNIUM Hemoglobin 12.5 11.2 - 15.7 gm/dL CERNER MILLENNIUM Hematocrit 36.4 34.0 - 45.0 % CERNER MILLENNIUM MCV 93.1 79.0 - 94.0 fL CERNER MILLENNIUM MCH 32.0 26.6 - 32.2 pg CERNER MILLENNIUM MCHC 34.3 32.0 - 36.5 gm/dL [facility]ERMOOSE GUNTERENNIUM Platelets 232 145 - 370 x10(3)/mcL CERNER MILLENNIUM RDWSD 44.0 35.0 - 46.0 fL CERNER JANIENNIUM RDWCV 12.9 10.9 - 14.4 % CERMOOSE GUNTERENNIUM MPV 10.5 9.0 - 12.0 fL YVETTE GUNTERENNIUM Blood specimen (specimen) 10/21/2010 1:16 PM EDT 10/21/2010 1:24 PM EDT Bhavesh Hernadez MD HEMATOLOGY ORDERABLE S YVETTE VARELA documented in this encounter Visit Diagnoses Diagnosis Other primary cardiomyopathies residential (current) use of anticoagulants Long-term (current) use of anticoagulants documented in this encounter Care Teams Spinning Frame Tender Relationship Specialty Start Date End Date Heidi Monge MD [facility] [address] [place] [address] PCP - General 08/07/10 01/18/12 documented as of this encounter
--- OUTSIDE RECORDS SUMMARY | 2023-11-04 15:22 | XMS_ITS | Encounter Summary ---
[place] [address] Care Team Providers Care Taker Out Name Role Phone Alaina Peralta APRN Primary Care Provider [phone]- [phone] Encounter Details Date Type Department Care Team (Late st Contact Info) Description 01/24/2013 9:30 AM EDT - 01/24/2013 11:59 PM EDT Hospital [place] [id number] CLINIC, DR LASHONDA Alegre, Yogi Elizabeth MD [address] [place] [id number] Discharge Disposition: Home Social History Tobacco Use [...] Sign Reading Time Taken Comments Blood Pressure - - Pulse - - Temperature - - Respiratory Rate - - Oxygen Saturation - - Inhaled Oxygen Concentration - - Weight 81.6 kg (180 lb) 01/24/2013 7:59 AM EDT Height - - Body Mass Index 30.9 01/20/2013 1:56 PM EDT documented in this encounter Medications at Time of Discharge Medication Sig Dispensed Refills Start Date End Date multivitamin with minerals tablet 1 Tablet(s), PO, Once daily 06/05/2010 hydroxychloroquine (PLAQUENIL) 200 mg tablet Take 1 tablet by mouth 2 times daily. 60 tablet 6 05/17/2012 11/07/2013 warfarin (COUMADIN) 5 mg tablet As directed 04/01/2012 03/21/2020 amoxicillin (AMOXIL) 500 mg capsule Take 1,000 mg by mouth as needed. 05/18/2017 aspirin 325 mg tablet Take 325 mg by mouth daily. 04/12/2013 isosorbide dinitrate (ISORDIL) 30 mg tablet Take 30 mg by mouth daily. 05/07/2017 metoprolol succinate (TOPROL-XL) 50 mg 24 hr tablet TAKE 1 TABLET EVERY DAY 90 tablet 1 11/01/2011 05/07/2017 escitalopram (LEXAPRO) 20 mg tabletIndications:Lupu s Take 1 tablet by mouth daily. 30 tablet 6 01/30/2011 05/07/2017 topiramate (TOPAMAX) 25 mg tabletIndications:Lupu s Take 1 tablet by mouth 2 times daily. 180 tablet 1 01/30/2011 05/07/2017 pantoprazole (PROTONIX) 40 mg tablet Take 1 tablet by mouth daily. 90 tablet 3 11/11/2010 05/18/2017 fluconazole (DIFLUCAN) 150 mg tablet 150 MG = 1 Tablet(s), PO, as directed 06/05/2010 05/07/2017 documented as of this encounter Miscellaneous Notes * Miscellaneous - Provider, Scanning - 01/31/2013 2:01 PM EDT documented in this encounter Plan of Treatment Upcoming Encounters Date Type Department Care Team (Late st Contact Info) Description 11/11/2023 3:00 AM EDT Anti-Coag Telephone Visit [facility] [place] [address] documented as of this encounter Procedures Procedure Name Priority Date/Time Associated Diagnosis Comments MRI CARDIAC MORPHOLOGY FUNCTION WWO CONTRAST Routine 01/24/2013 12:54 PM EDT documented in this encounter Results * MRI- Cardiac morph/func with/WO contrast (01/24/2013 12:54 PM EDT) Anatomical Region Laterality Modality Magnetic Resonan ce 01/24/2013 12:5 4 PM EDT Narrative 01/28/2013 1:18 PM EDT Examination Cardiac MR for morphology and function with and without contrast Clinical History PERICARDIAL THICKENING ? CONSTRICTIVE PERICARDITIS Technique Axial and short-axis double inversion recovery without contrast. Axial and short-axis triple inversion recovery without contrast. Short and long axis cine steady-state fast precession without contrast. ?? Short and long axis delayed enhancement after contrast administration. Contrast: 19 ml Magnevist. ?? Post processing performed on an independent computer workstation including volumetric functional analysis. ?? Patient received oxygen (4l) during the study and had a difficult time holding her breath. ?? Comparison No priors. Findings Mild to moderate dilatation of the left ventricle. Otherwise normal morphology and structure of the cardiac chambers. ?? Marked myocardial thinning at the apex and dyskinesis at the inferior aspect of the apex. ?? Mild inferior wall hypokinesis. ?? No abnormal myocardial signal on non contrast series. ?? Equivocal marginal enhancement at the apex after intravenous contrast administration. ?? Moderate aortic insufficiency. ?? No pericardial thickening or effusion. ?? Normal contour and caliber of the great vessels. Quantitative data: ?? Left ventricle: ?? Anteroseptal wall thickness: 5 mm ?? Posterolateral wall thickness: 5 mm ?? End-diastolic dimension: 6.8 cm ?? End-systolic dimension: 5.2 cm ?? End-diastolic volume: 207 mL ?? End systolic volume: 102 mL ?? Stroke volume: 105 mL ?? Ejection fraction: 51 % ?? Left ventricular mass: approximately 106 g Right ventricle: ?? End-diastolic volume: 134 mL ?? End-systolic volume: 59 mL ?? Stroke volume: 75 mL ?? Ejection fraction: 56 % ?? Impression Severe thinning of the myocardium inferiorly at the apex of the left ventricle with focal dyskinetic outpouching during systole. Delayed contrast enhanced images are limited due to motion artifact and marginal enhancement cannot be excluded. Possible etiology is occlusion of a small branch vessel or microvascular disease, but no other evidence of scarring/prior myocardial infarct. ?? Moderate aortic insufficiency and dilatation of the left ventricle. Left ventricular ejection fraction is low normal. ?? No pericardial thickening and no pericardial effusion. No septal bounce or flattening of the septum. No evidence of constrictive pericarditis. ?? Procedure Note Treva Cosme MD - 01/28/2013 Examination Cardiac MR for morphology and function with and without contrast Clinical History PERICARDIAL THICKENING ? CONSTRICTIVE PERICARDITIS Technique Axial and short-axis double inversion recovery without contrast. Axial and short-axis triple inversion recovery without contrast. Short and long axis cine steady-state fast precession without contrast. Short and long axis delayed enhancement after contrast administration. Contrast: 19 ml Magnevist. Post processing performed on an independent computer workstation including volumetric functional analysis. Patient received oxygen (4l) during the study and had a difficult timeholding her breath. Comparison No priors. Findings Mild to moderate dilatation of the left ventricle. Otherwise normalmorphology and structure of the cardiac chambers. Marked myocardial thinning at the apex and dyskinesis at the inferioraspect of the apex. Mild inferior wall hypokinesis. No abnormal myocardial signal on non contrast series. Equivocal marginal enhancement at the apex after intravenous contrast administration. Moderate aortic insufficiency. No pericardial thickening or effusion. Normal contour and caliber of the great vessels. Quantitative data: Left ventricle: Anteroseptal wall thickness: 5 mm Posterolateral wall thickness: 5 mm End-diastolic dimension: 6.8 cm End-systolic dimension: 5.2 cm End-diastolic volume: 207 mL End systolic volume: 102 mL Stroke volume: 105 mL Ejection fraction: 51 % Left ventricular mass: approximately 106 g Right ventricle: End-diastolic volume: 134 mL End-systolic volume: 59 mL Stroke volume: 75 mL Ejection fraction: 56 % Impression Severe thinning of the myocardium inferiorly at the apex of the leftventricle with focal dyskinetic outpouching during systole. Delayed contrastenhanced images are limited due to motion artifact and marginal enhancement cannotbe excluded. Possible etiology is occlusion of a small branch vessel or microvascular disease, but no other evidence of scarring/prior myocardial infarct. Moderate aortic insufficiency and dilatation of the left ventricle. Left ventricular ejection fraction is low normal. No pericardial thickening and no pericardial effusion. No septal bounce or flattening of the septum. No evidence of constrictive pericarditis. Yogi Alegre MD IMG MRI ORDERABLES documented in this encounter Visit Diagnoses Not on filedocumented in this encounter Administered Medications Inactive Administered Medications - up to 3 most recent administrations Medication Order MAR Action Action Date Dose Rate Site gadopentetate dimeglumine (MAGNEVIST) 10 mmol/20 mL (469.01 mg/mL) injection 16.32 mL 16.32 mL (0.2 mL/kg/dose ? 81.6 kg), Intravenous, ONCE PRN, 1 dose, Starting on Thu01/24/13 at 0759, Until Thu01/24/13 at 1215, Per Protocol, Routine Given 01/24/2013 12:15 PM EDT 19 mLs documented in this encounter Care Teams Taker Out Relationship Specialty Start Date End Date Alaina Peralta APRN PCP - General 01/20/13 06/01/16 documented as of this encounter
--- OUTSIDE RECORDS SUMMARY | 2023-11-04 15:22 | XMS_ITS | Encounter Summary ---
Author Organization [facility] [place] [address] Care Team Providers Care Contact Acid Plant Operator Name Role Phone Shasta Dixon MD Primary Care Provider [phone]- [phone] Encounter Details Date Type Department Care Team (Latest Contact Info) Description 12/19/2010 8:51 AM EDT - 12/19/2010 11:59 PM EDT Hospital [place] [phone] Min, Luz Cid MD [facility] [address] Anticoagulant long-term use Discharge Disposition: Home Social History Tobacco Use [...] tablet 1 Tablet(s), PO, Once daily 06/05/2010 OXYcodone 5 mg capsuleIndications:Lupus Take 1 capsule by mouth 2 times daily. 60 capsule 0 11/27/2010 12/27/2010 pantoprazole (PROTONIX) 40 mg tablet Take 1 tablet by mouth daily. 90 tablet 3 11/11/2010 05/18/2017 lisinopril (PRINIVIL;ZESTRIL) 10 mg tabletIndications:Other primary cardiomyopathies,correction (current) use of anticoagulants Take 1 tablet by mouth daily. 90 tablet 3 10/21/2010 01/30/2011 metoprolol succinate (TOPROL XL) 50 mg 24 hr tabletIndications:Other primary cardiomyopathies,facility manager (current) use of anticoagulants Take 1 tablet by mouth daily. 90 tablet 3 10/21/2010 01/30/2011 simvastatin (ZOCOR) 80 mg tabletIndications:Other primary cardiomyopathies,facility manager (current) use of anticoagulants Take 1 tablet by mouth daily. 90 tablet 3 10/21/2010 01/30/2011 warfarin (COUMADIN) 2.5 mg tabletIndications:Other primary cardiomyopathies,facility manager (current) use of anticoagulants Take 1 tablet by mouth. Take as directed by Coumadin CLinic nurse 360 tablet 3 10/21/2010 03/25/2012 escitalopram (LEXAPRO) 20 mg tabletIndications:Lupus Take 1 tablet by mouth daily. 30 tablet 6 09/12/2010 01/30/2011 topiramate (TOPAMAX) 25 mg tabletIndications:Lupus Take 1 tablet by mouth 2 times daily. 120 tablet 1 09/12/2010 12/27/2010 hydroxychloroquine (PLAQUENIL) 200 mg tablet 200 mg PO Twice daily 06/17/2010 12/27/2010 fluconazole (DIFLUCAN) 150 mg tablet 150 MG = 1 Tablet(s), PO, as directed 06/05/2010 05/07/2017 pramipexole (MIRAPEX) 0.5 mg tablet 0.5 MG = 1 Tablet(s), PO, QHS 06/05/2010 01/20/2013 documented as of this encounter Plan of Treatment Upcoming Encounters Date Type Department Care Team (Late st Contact Info) Description 11/11/2023 3:00 AM EDT Anti-Coag Telephone Visit [facility] [place] [address] documented as of this encounter Procedures Procedure Name Priority Date/Time Associated Diagnosis Comments PROTHROMBIN TIME STAT 12/19/2010 9:04 AM EDT Anticoagulant long-term use documented in this encounter Results * (ABNORMAL) Prothrombin Time (12/19/2010 9:04 AM EDT) PT 29.4(H) 12.3 - 14.7 sec YVETTE MILLENNIUM Comment: [facility] Transfusion Committee Guidelines: INR less than 2.0, PTT less than OR equal to 43.5 seconds, or Fibrinogen greater than or equal to 100 mg/dl indicate adequate procoagulant activity for hemostasis in patients without underlying bleeding disorders. INR 2.7(H) 0.9 - 1.1 [employer] Blood specimen (specimen) 12/19/2010 9:04 AM EDT 12/19/2010 9:08 AM EDT Luz Jerry MD HEMATOLOGY ORDERABLE S [facility] documented in this encounter Visit Diagnoses Diagnosis Anticoagulant long-term use Encounter for long-term (current) use of anticoagulants documented in this encounter Care Teams Contact Acid Plant Operator Relationship Specialty Start Date End Date Shasta Dixon MD [facility] [address] [facility] [place] [address] PCP - General 08/07/10 01/18/12 documented as of this encounter
--- OUTSIDE RECORDS SUMMARY | 2023-11-04 15:22 | XMS_ITS | Encounter Summary ---
[place] [address] Care Team Providers Care Superintendent Menagerie Name Role Phone Shasta Dixon MD Primary Care Provider +1- [phone] Reason for Visit * Reason Onset Date Comments Anticoagulation 09/11/2010 INR Encounter Details Date Type Department Care Team (Late st Contact Info) Description 09/11/2010 Telephone [place] [address] Shasta Dixon MD [facility] [address] [place] [address] Anticoagulation (INR) Social History Tobacco Use Types Packs/Day Years Used Date Smoking Tobacco: Never Assessed Sex and Gender Information Value Date Recorded Sex Assigned at Female 05/01/2021 10:41 AM EST Gender Identity Female 05/01/2021 10:41 AM EST Sexual Orientation Straight 05/01/2021 10 :41 AM EST documented as of this encounter Miscellaneous Notes * Telephone Encounter - Kalli Lino - 09/11/2010 3:34 PM EDT INR 1.[facility] documented in this encounter Plan of Treatment Upcoming Encounters Date Type Department Care Team (Late st Contact Info) Description 11/11/2023 3:00 AM EDT Anti-Coag Telephone Visit [facility] [place] [address] documented as of this encounter Visit Diagnoses Not on filedocumented in this encounter Care Teams Superintendent Menagerie Relationship Specialty Start Date End Date Shasta Dixon MD [facility] [address] [place] [address] PCP - General 08/07/10 01/18/12 documented as of this encounter
--- OUTSIDE RECORDS SUMMARY | 2023-11-04 15:22 | XMS_ITS | Encounter Summary ---
[place] [address] Care Team Providers Care Panel Cutter Name Role Phone Shasta Dixon MD Primary Care Provider +1- [phone] Encounter Details Date Type Department Care Team (Late st Contact Info) Description 12/19/2010 Anti-Coag Telephone [place] [address] Nancy Chowdhury, RN Social History Tobacco Use Types Packs/Day [...] this encounter Patient Instructions * Patient Instructions* Nancy Chowdhury, RN - 12/19/2010 2:35 PM EDT Your INR result today is: 2.7 ([facility] Lab) Therapeutic Range 2.0-3.5 Please take your [...] needs. Please follow the dosing instructions outlined below until your next scheduled INR visit. Pill size 2.5mg DAY Thu Total # Mg per day 7.5mg 7.5mg 7.5mg 8.75mg 7.5mg 7.5mg 8.75mg Number of Pills 3 3 3 3 1/2 3 3 3 04/07 Your next INR is scheduled for: Jan 16 [facility] Anticoagulation Clinic [phone] documented in this encounter Progress Notes * Nancy Chowdhury RN - 12/19/2010 2:35 PM EDT Anticoagulation Telephone Note Indication: Antiphospholipid antibody, Hx CVA, Dilated cardiomyopathy Duration of treatment: Lifelong with annual review Range: 2.0-3.5 INR : 2.7 Drawn by: [facility] Monitored by: JIE Next INR Due: 01/16 Patient Contact Preference: x Message left on answering machine 0567 E-Mail/fax Spoke with patient / family member: Comment: Warfarin dose : Increased Decreased x Maintained Comment Falls Risk Asseessment: Have you had any falls in the last month? How many times have you fallen? Conditions at time of fall? Refer to Lexy Flores APRN for evaluation: Yes___ No___ Bleeding: Epistaxis Black tarry stools Gingival bleeding Increased bruising Hematuria Other: Hemoptysis No bleeding / bruising noted Comment: Symptoms of recurring primary event: Chest Pain Dyspnea Palpitations Headache Dizziness Edema Confusion Slurred Speech Weakness Visual changes Tender / Red / Swollen Extremities No symptoms reported Other: Comment: Recent medication changes: ( Include prescription /OTC/ herbal) Yes No Comment: Have you missed any dose of Coumadin this past week? Yes No Comment Any Illness/ Cold SX/ Diarrhea/Constipation > 48 hours: Yes No Comment Dietary Changes: Yes No Comment: Have you increased or decreased alcohol consumption recently? Yes No Comment: Have you significantly altered your level of activity over the past few weeks? Yes No Comment Upcoming Invasive Procedures Planned? Yes No Comment: Travel Plan: Yes, travel precautions reviewed. No Comment: Patient understands and agrees with plan of care Anticoagulation Therapy Nurse Visit [facility] () Indication for Anticoag Therapy: Therapeutic Range: 2.0-3.0 Duration of Treatment: Current INR: Monitored by: Warfarin dose: Increased Decreased Maintained Comments: Falls Risk Asseessment: Have you had any falls in the last month? How many times have you fallen? Conditions at time of fall? Refer to Lexy Flores APRN for evaluation: Yes___ No___ Anticoag Assessment: Follow-up for re-evaluation and safety of continuing anticoagulation. Patient presents with no signs of bleeding or bruising or signs of thromboembolic events related toprimary diagnosis above. Bleeding: Epistaxis Black tarry stools Gingival bleeding Increased bruising Hematuria Other: Hemoptysis x No bleeding / bruising noted Comments: Symptoms of recurring primary event: Chest pain Dyspnea Palpitations Headache Dizziness Edema Confusion Slurred speech Weakness Visual changes Tender/Red/Swollen extremities x No symptoms reported Other: Comments: Recent Medication Changes: no Comments: Have you missed any dose of Coumadin this past week? No Comments: Any Illness/Cold SX/Diarrhea/Constipation> 48 hours: no Comments: Dietary Changes: No Comments: Have you increased or decreased alcohol consumption recently? No Patient / Caregiver agrees with plan of care and understands they can call with any questions or concerns. documented in this encounter Plan of Treatment Upcoming Encounters Date Type Department Care Team (Late st Contact Info) Description 11/11/2023 3:00 AM EDT Anti-Coag Telephone Visit [facility] [place] [phone] documented as of this encounter Visit Diagnoses Not on filedocumented in this encounter Care Teams Panel Cutter Relationship Specialty Start Date End Date Shasta Dixon MD [facility] [address] [place] [address] PCP - General 08/07/10 01/18/12 documented as of this encounter
--- OUTSIDE RECORDS SUMMARY | 2023-11-04 15:22 | XMS_ITS | Encounter Summary ---
[place] [address] Care Team Providers Care Outdoor Emergency Care Technician Name Role Phone Hawk Phelan APRN Primary Care Provider [phone] Encounter Details Date Type Department Care Team (Latest Contact Info) Description 04/01/2012 7:21 AM EST - 04/01/2012 4:42 PM EST Hospital Encounter [place] [id number] Neftali Renner MD [facility] [place] [address] Discharge Disposition: Home Social History Tobacco Use [...] Sign Reading Time Taken Comments Blood Pressure 104/58 04/01/2012 2:14 PM EST Pulse 63 04/01/2012 2:14 PM EST Temperature 36.7 ??C (98.1 ??F) 04/01/2012 7:52 AM ES T Respiratory Rate 16 04/01/2012 2:14 PM EST Oxygen Saturation 95% 04/01/2012 2:14 PM EST Inhaled Oxygen Concentration - - Weight 79.8 kg (176 lb) 04/01/2012 7:52 AM EST Height 162.6 cm (5' 4) 04/01/2012 7:52 AM EST Body Mass Index 30.21 04/01/2012 7:52 AM EST documented in this encounter Discharge Instructions * Discharge Instructions* Rowena Rivera, RN - 04/01/2012 12:30 PM EST Activity If you are discharged the same day as your procedure, do not drive yourself home. Arrange to have another person drive. You may walk around when you get home, but keep your activity at a minimum until the morning. Do not bend over, strain, or lift heavy objects for 24 hours after the procedure. Do not participate in active sports for 48 hours. You may engage in sexual activity after 48 hours. These restrictions will not apply if the catheter was placed in a blood vessel in your arm. Catheter Insertion Area Care Take the band-aid off the catheter insertion area the morning following the procedure. You may takea shower if you wish. Wash the area with soap and water. Look for signs of infection over the next several days. A little spot of blood at the catheter insertion area is not unusual. A bruise or small lump under the skin is normal; they generally disappear in 3-4 days. For the first several days at home if you cough or sneeze, hold your groin to help prevent bleeding. Expect some mild tenderness over the area where the catheter was inserted. You will notice this after the local anesthetic (numbing medicine) wears off. This should improve during the 24-48 hours after the procedure. Take tylenol if needed. Contact your doctor if the discomfort worsens. Problems to Watch For If there is bright red blood flowing from the catheter insertion area: *stop what you are doing and lie down *Hold pressure steadily on the area for 15 minutes *Call for Help *If the bleeding does not stop in 15 minutes call 911 for an ambulance. If there is swelling with black and blue color at the catheter insertion area, there may be bleeding inside. Contact the doctor if there is any increase in size. Look at the insertion site for the first few days at home. Signs of infection are: *redness *Swelling *Yellow, white, green or brown foul smelling drainage. *increased soreness If you think there is an infection, take your temperature. Then call your doctor. The limb on the side where you had your catheterization should look and feel normal in its color, sensation, and temperature. If your leg becomes cool, pale, blue or changing color with numbness and tingling, contact your doctor. If you feel faint or dizzy, lie down with your feet elevated. Have someone call the doctor. If you are alert, drink fluids. How to Deal with Chest pain If you had only the cardiac catheterization, treat any angina or chest discomfort as instructed. Stop what you are doing, and sit or lie down. If prescribed, take nitroglycerin under your tongue. If the angina isn't relieved, take another nitroglycerine in 5 minutes. After another 5 minutes, a third nitroglycerine may be taken. If the angina isn't improved you should call for an ambulance to bring you to the nearest hospital emergency room. If your angina is more frequent or more sever than before, contact your doctor. We usually would not expect to have angina after an angioplasty. If you do get angina, treat it as you did before but also contact your doctor. Return to Work The doctor will usually have told you when to return to work. If you do not perform heavy physical labor, most people can return to work in a few days. Diet Follow your previous diet unless otherwise instructed. Cardiac Risk Factors If you have coronary artery disease, it is important that you help control it by reducing your cardiac risk factors. If you smoke, we urge you to stop now. If you think this is going to be a problem,let us know so that we may help you. We have dieticians who can help you learn about low fat, low cholesterol diet. Cardiac rehabilitation programs can help you set up a regular exercise program. Work with your doctor if you have high blood pressure or sugar diabetes to keep these under control. Medications ____Take your usual medications ____Medication changes: If you are taking medicines prescribed by your doctor, do not take any leod-eny-pwrgurg medicines or herbal preparations without first discussing this with your doctor or pharmacist. There is the possibility of side effect and interactions when these are combined. Follow up Care Who to Call with Questions or Problems If there are any questions or problems that you think might be related to your cardiac cath or angioplasty, contact the network support administrator lion tamer by calling [facility] at . * Patient Instructions* Neftali Renner MD - 04/01/2012 3:59 PM EST Enoxaparin bridge to resume warfarin in previous dose tomorrow. PT/INR in 4-5 days Follow-up with Dr. Alegre in 2-4 weeks. documented in this encounter Medications at Time of Discharge Medication Sig Dispensed Refills Start Date End Date multivitamin with minerals tablet 1 Tablet(s), PO, Once daily 06/05/2010 enoxaparin (LOVENOX) 80 mg/0.8 mL injection Inject 0.8 mLs subcutaneously 2 times daily for 4 days. 04/01/2012 04/05/2012 warfarin (COUMADIN) 5 mg tablet As directed [...] EVERY DAY 90 tablet 1 11/01/2011 05/07/2017 hydroxychloroquine (PLAQUENIL) 200 mg tablet Take 1 tablet by mouth 2 times daily. 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 90 tablet 3 01/30/2011 01/20/2013 escitalopram (LEXAPRO) 20 mg tabletIndications:Lup us Take 1 tablet by mouth daily. 30 tablet 6 01/30/2011 05/07/2017 topiramate (TOPAMAX) 25 mg tabletIndications:Lup us Take 1 tablet by mouth 2 times daily. 180 tablet 1 01/30/2011 05/07/2017 OXYcodone 5 mg capsuleIndications:Karen pus Take 1 capsule by mouth 2 times daily. 60 capsule 0 12/26/2010 01/20/2013 hydroxychloroquine (PLAQUENIL) 200 mg tablet Take 1 tablet by mouth 2 times daily. 60 tablet 3 12/27/2010 05/17/2012 OXYcodone 5 mg capsuleIndications:Karen pus Take 1 capsule by mouth 2 times daily. 60 capsule 0 12/27/2010 01/20/2013 pantoprazole (PROTONIX) 40 mg tablet Take 1 tablet by mouth daily. 90 tablet 3 11/11/2010 05/18/2017 fluconazole (DIFLUCAN) 150 mg tablet 150 MG = 1 Tablet(s), PO, as directed 06/05/2010 05/07/2017 pramipexole (MIRAPEX) 0.5 mg tablet 0.5 MG = 1 Tablet(s), PO, QHS 06/05/2010 01/20/2013 documented as of this encounter Progress Notes * Dinah Ortiz RN - 04/01/2012 2:12 PM EST Ambulated in [facility]. Voided in br. Right groin neg. * Rowena Rivera RN - 04/01/2012 12:09 PM EST I assumed care of pt. Pt resting. Groin soft. No bleed, no hematoma. Pulses intact right LE. documented in this encounter H&P Notes * Neftali Renner MD - 04/01/2012 8:52 AM EST Complete Adult Pre-Procedural H&P Patient Name: Cecilia Dumont : [id number] y.o. MR#: [id number] Chief Complaint: chest pain and FATIMA Planned Procedure: R&Lheart cath History of Present Illness: HPI Progresivie FATIMA, atyoical but exertional chest pain. Lupus anticoagulant, enoxaparin bridge, last does 80 mg 0530 today. Patient Active Problem List Diagnoses ??? FATIMA (dyspnea on exertion) ??? Chest pain ??? H/O: CVA (cardiovascular accident) Age 21 ??? JAN on CPAP ??? Migraine ??? Hyperlipemia ??? SLE (systemic lupus erythematosus) On plaquinil since ??? Antiphospholipid antibody syndrome On coumadin By hx, has required Lovenox bridge for procedures ??? Dilated cardiomyopathy, resolved Dx; 2003-, EF = 30%, ?due to SLE, ?CHF/CP reported after flu-like illness 2003 2004, NICM, [facility] neg for occlusive dis 2008, nl EF=65 by echo 03/2012, Echo with nl LV/RV ??? Hypertension ??? Depression I have reviewed and updated as necessary the Medical, Surgical, Family, and Social History capturedwithin the EMR. I have reviewed and updated as necessary the patient's allergies and current medication list withinthe EMR. Review of Systems: Review of Systems Physical Exam: Filed Vitals: 04/01/12 0752 BP: 103/67 Pulse: 67 Temp: 36.7 ??C (98.1 ??F) TempSrc: Oral Resp: 19 Height: 162.6 cm (5' 4) Weight: 79.833 kg (176 lb) SpO2: 98% Physical Exam Chest clear Cor nl; No edema Assessment and Plan: R&L heart cath The procedure, alternatives, risks and benefits of cardiac catheterization and possible coronary intervention was discussed in detail with the patient. Questions were answered. Consent signed. NEFTALI RENNER MD 04/01/2012 documented in this encounter Procedure Notes * Provider, Scanning - 04/01/2012 8:57 PM ESTAssociated Order(s): SCAN DOC: CARDIAC CATH documented in this encounter Miscellaneous Notes * Miscellaneous - Provider, Scanning - 04/01/2012 9:35 PM EST * Miscellaneous - Provider, Scanning - 04/01/2012 8:57 PM EST * Discharge Summary - Neftali Renner MD - 04/01/2012 3:53 PM EST Inpatient Cardiology - Discharge Summary Patient Name: Cecilia Dumont Patient Age: 42 y.o. Birthdate: 1970 Admit date: 04/01/2012 Discharge date : 04/01/12 Attending Physician: Neftali Renner MD Discharge Diagnoses (Hospital Problems) and Secondary Diagnoses (Chronic Problems): Active Hospital Problems Diagnoses ??? FATIMA (dyspnea on exertion) ??? Chest pain Cardiac catheterization 04/01/12: RAP-13 PAP-/, PCWP-13, CO/CI-4.12/2.23; LVEF 60% infero-apical akinesis, inferior hypokinesis, normal R dominant coronary arteries. Near equalization of diastolic R&Lp ressures- cannot rule out mild constrictive pericardial physiology. Cardiac catheterization 07/16/04: RAP-1 PAP-18/5/10, PCWP- 2, CO/CI-4.13/2.40; LVEF 33% globa lhyopokinesis, christen coronary arteries ??? Osteoporosis Prior treatment for osteoporosis while on prednisone with Actonel and calcium. DEXA 2001, spine -1.0, hip -0.6. Actonel DC'd 10/2008 ??? H/O total knee replacement Bilateral ??? Dilated cardiomyopathy, improved Dx; 2003-, EF [...] 60%, no RWMA Cardiac catheterization 07/16/04: RAP-1 PAP-//, PCWP- 2, CO/CI-4.13/2.40; LVEF 33% globa lhyopokinesis, normal coronary arteries, nl endomyocardial biopsy Echocardiography 10/13/06: LVEF 60%, nl RV, +1 AR, Echocardiography 10/28/07: LVEF 65%, no RWMA, nl RV, Echocardiography 10/30/08: LVEF 65%, no RWMA, nl RV, +1 AR, PASP 24 mmHg Echocardiography 03/15/12: LVEF 60-65%, +2 AR, nl LV/RV, LVEF 63% inf-apical akinesis, inferior hypokinesis at cath 04/01/12: Resolved Hospital Problems Diagnoses Date Resolved Active Non-Hospital Problems Diagnoses ??? H/O: CVA (cardiovascular accident) Age 21 ??? JAN on CPAP ??? Migraine ??? Hyperlipemia ??? SLE (systemic lupus erythematosus) [...] miscarriages, migraine headaches, and thrombocytopenia, ??? Hypertension ??? Depression Operations/Major Procedures: Operations: CARDIAC CATHETERIZATION - Procedure: Coronary Angiography. R & L heart cath, left ventriculography History of Presentation: Progressive FATIMA and atypical chest pain, exertional. Referred by Dr. Newby for cath. Hospital Course: Uncomplicated outpatient cardiac catheterization: normal coronary arteries, LVEF 60% inf-apical akinesis, inferior hypokinesis, near equalization of diastolic pressures pre and post fluid challenge, cannot rule out mild constrictive physiology. Important Studies and Lab Data: Labs: Lab Results Component Value Date WBC 6.8 10/21/2010 HGB 12.5 10/21/2010 HCT 36.4 10/21/2010 PLATELET 232 10/21/2010 Recent Labs Basename 04/01/12 0735 INR 1.1 Lab Results Component Value Date NA 142 10/21/2010 K 4.0 10/21/2010 CL 108* 10/21/2010 CO2 26 10/21/2010 BUN 19* 10/21/2010 CREATININE 0.76 10/21/2010 Pending Studies and Lab Data: None Discharge Conditions/Prognosis: Stable Discharge to: Home Discharge Medications: Current Discharge Medication List New Meds Dose Details enoxaparin (LOVENOX) 80 mg 80 mg Inject 80 mg subcutaneously 2 times daily. warfarin (COUMADIN) 5 mg tablet As directed Continued medications, unchanged Dose Details amoxicillin (AMOXIL) 1,000 mg 1,000 mg Take 1,000 mg by mouth as needed. aspirin 325 mg 325 mg Take 325 mg by mouth daily. isosorbide dinitrate (ISORDIL) 30 mg 30 mg Take 30 mg by mouth daily. metoprolol succinate (TOPROL-XL) 50 mg 24 hr tablet TAKE 1 TABLET EVERY DAY Qty: 90 tablet Refills: 1 !! hydroxychloroquine (PLAQUENIL) 200 mg 200 mg Take 200 mg by mouth 2 times daily. Qty: 60 tablet Refills: 6 lisinopril (PRINIVIL;ZESTRIL) 10 mg 10 mg Take 10 mg by mouth daily. Qty: 90 tablet Refills: 3 escitalopram (LEXAPRO) 20 mg 20 mg Take 20 mg by mouth daily. Qty: 30 tablet Refills: 6 topiramate (TOPAMAX) 25 mg 25 mg Take 25 mg by mouth 2 times daily. Qty: 180 tablet Refills: 1 !! OXYcodone 5 mg 5 mg Take 5 mg by mouth 2 times daily. Qty: 60 capsule Refills: 0 !! hydroxychloroquine (PLAQUENIL) 200 mg 200 mg Take 200 mg by mouth 2 times daily. Qty: 60 tablet Refills: 3 !! OXYcodone 5 mg 5 mg Take 5 mg by mouth 2 times daily. Qty: 60 capsule Refills: 0 pantoprazole (PROTONIX) 40 mg 40 mg Take 40 mg by mouth daily. Qty: 90 tablet Refills: 3 multivitamin with minerals tablet 1 Tablet(s), PO, Once daily fluconazole (DIFLUCAN) 150 mg tablet 150 MG = 1 Tablet(s), PO, as directed pramipexole (MIRAPEX) 0.5 mg tablet 0.5 MG = 1 Tablet(s), PO, QHS !! - Potential duplicate medications found. Please discuss with provider. Updated Allergies/ADRs: Allergies Allergen Reactions ??? Tramadol Follow-up Recommendations for Providers: Consider cardiac MRI/CT for pericardial thickness Diuretics and/or ACEI Instructions Given to Patient at Discharge: Provider Instructions Enoxaparin bridge to resume warfarin in previous dose tomorrow. PT/INR in 4-5 days Follow-up with Dr. Alegre in 2-4 weeks. General Instructions Activity If you are discharged the same day as your procedure, do not drive yourself home. Arrange to have another person drive. You may walk around when you get home, but keep your activity at a minimum until the morning. Do not bend over, strain, or lift heavy objects for 24 hours after the procedure. Do not participate in active sports for 48 hours. You may engage in sexual activity after 48 hours. These restrictions will not apply if the catheter was placed in a blood vessel in your arm. Catheter Insertion Area Care Take the band-aid off the catheter insertion area the morning following the procedure. You may takea shower if you wish. Wash the area with soap and water. Look for signs of infection over the next several days. A little spot of blood at the catheter insertion area is not unusual. A bruise or small lump under the skin is normal; they generally disappear in 3-4 days. For the first several days at home if you cough or sneeze, hold your groin to help prevent bleeding. Expect some mild tenderness over the area where the catheter was inserted. You will notice this after the local anesthetic (numbing medicine) wears off. This should improve during the 24-48 hours after the procedure. Take tylenol if needed. Contact your doctor if the discomfort worsens. Problems to Watch For If there is bright red blood flowing from the catheter insertion area: *stop what you are doing and lie down *Hold pressure steadily on the area for 15 minutes *Call for Help *If the bleeding does not stop in 15 minutes call 911 for an ambulance. If there is swelling with black and blue color at the catheter insertion area, there may be bleeding inside. Contact the doctor if there is any increase in size. Look at the insertion site for the first few days at home. Signs of infection are: *redness *Swelling *Yellow, white, green or brown foul smelling drainage. *increased soreness If you think there is an infection, take your temperature. Then call your doctor. The limb on the side where you had your catheterization should look and feel normal in its color, sensation, and temperature. If your leg becomes cool, pale, blue or changing color with numbness and tingling, contact your doctor. If you feel faint or dizzy, lie down with your feet elevated. Have someone call the doctor. If you are alert, drink fluids. How to Deal with Chest pain If you had only the cardiac catheterization, treat any angina or chest discomfort as instructed. Stop what you are doing, and sit or lie down. If prescribed, take nitroglycerin under your tongue. If the angina isn't relieved, take another nitroglycerine in 5 minutes. After another 5 minutes, a third nitroglycerine may be taken. If the angina isn't improved you should call for an ambulance to bring you to the nearest hospital emergency room. If your angina is more frequent or more sever than before, contact your doctor. We usually would not expect to have angina after an angioplasty. If you do get angina, treat it as you did before but also contact your doctor. Return to Work The doctor will usually have told you when to return to work. If you do not perform heavy physical labor, most people can return to work in a few days. Diet Follow your previous diet unless otherwise instructed. Cardiac Risk Factors If you have coronary artery disease, it is important that you help control it by reducing your cardiac risk factors. If you smoke, we urge you to stop now. If you think this is going to be a problem,let us know so that we may help you. We have dieticians who can help you learn about low fat, low cholesterol diet. Cardiac rehabilitation programs can help you set up a regular exercise program. Work with your doctor if you have high blood pressure or sugar diabetes to keep these under control. Medications ____Take your usual medications ____Medication changes: If you are taking medicines prescribed by your doctor, do not take any hccb-ipr-bigspsq medicines or herbal preparations without first discussing this with your doctor or pharmacist. There is the possibility of side effect and interactions when these are combined. Follow up Care Who to Call with Questions or Problems If there are any questions or problems that you think might be related to your cardiac cath or angioplasty, contact the network support administrator lion tamer by calling [facility] at . Provider Contact Information: NEFTALI RENNER MD [phone] Discharge References/Attachments: Discharge References/Attachments None Signed: NEFTALI RENNER MD DATE: 04/01/12 * Miscellaneous - Provider, Scanning - 04/01/2012 10:05 AM EST documented in this encounter Plan of Treatment Upcoming Encounters Date Type Department Care Team (Late st Contact Info) Description 11/11/2023 3:00 AM EDT [place] [phone] documented as of this encounter Procedures Procedure Name Priority Date/Time Associated Diagnosis Comments CARDIAC CATH SCAN 04/01/2012 8:5 7 PM EST POINT OF CARE BLOOD GAS HISTORICAL Routine 04/01/2012 11:10 AM EST CARDIAC CATHETERIZATION Routine 04/01/20 12 10:37 AM EST CARDIAC CATHETERIZATION 04/01/20 12 9:38 AM EST UNSTABLE ANGINA PROTHROMBIN TIME STAT 04/01/2012 7:35 AM EST documented in this encounter Results * SCAN DOC: CARDIAC CATH (04/01/2012 8:57 PM EST) Anatomical Region Laterality Modality Other Narrative Transcriptions Provider, Scanning - 04/01/2012 8:57 PM EST Scanning Provider MEDIA MGR SCAN EXT O RDR/RSLT * (ABNORMAL) Point of Care Blood Gas Historical (04/01/2012 11:10 AM EST) POC pH 7.28(Criti mary) 7.35 - 7.45 CERNER MILLENNIUM Comment:Criticals OK - CC La b i-Stat POC PCO2 47(H) 35 - 45 mmHg CERNER MILLENNIUM POC PO2 66(L) 85 - 104 mmHg CERNER MILLENNIUM POC Base Excess -5.0(L) -3.0 - 3.0 mmol/L CERNER MILLENNIUM POC HCO3 22.0 20.0 - 26.0 mmol/L CERNER MILLENNIUM POC Sodium 143 135 - 145 mmol/L CERNER MILLENNIUM POC Potassium 3.9 3.5 - 5.0 mmol/L CERNER MILLENNIUM POC Ionized Ca 1.27 1.15 - 1.33 mmol/L CERNER MILLENNIUM POC Hematocrit 29.0(L) 34.0 - 45.0 % CERNER MILLENNIUM POC Bgas Loc CC LAB CERNER MILLENNIUM Blood specimen (specimen) 04/01/2012 11:10 AM EST 04/05/2012 10:09 AM EST Neftali Renner MD CHEMISTRY ORDERABLES [facility] * Cardiac Catheterization (04/01/2012 10:37 AM EST) Anatomical Region Laterality Modality Other Neftali Renner MD CARDIAC CATH ORDERAB LES * Prothrombin Time (04/01/2012 7:35 AM EST) PT 14.0 11.9 - 14.7 sec CERNER MILLENNIUM Comment: [facility] Transfusion Committee Guidelines: INR less than 2.0, PTT less than OR equal to 43.5 seconds, or Fibrinogen greater than or equal to 100 mg/dl indicate adequate procoagulant activity for hemostasis in patients without underlying bleeding disorders. INR 1.1 0.9 - 1.1 YVETTE VARELA Blood specimen (specimen) 04/01/2012 7:35 AM EST 04/01/2012 7:50 AM EST Narrative Resulting Agency Comment Spec In Lab Neftali Renner MD HEMATOLOGY ORDERABLE S YVETTE VARELA documented in this encounter Visit Diagnoses Diagnosis FATIMA (dyspnea on exertion)- Primary Other dyspnea and respiratory abnormality Chest pain Chest pain, unspecified Dilated cardiomyopathy, improved Other primary cardiomyopathies Osteoporosis Osteoporosis, unspecified H/O total knee replacement Knee joint replacement by other means documented in this encounter Administered Medications Inactive Administered Medications - up to 3 most recent administrations Medication Order MAR Action Action Date Dose Rate Site diaZEPam (VALIUM) tablet 5 mg 5 mg, Oral, ONCE, 1 dose, On Yaritza 04/01/12 at 0815, Cath (Day of Procedure), Routine Given 04/01/2012 9:19 AM EST 5 mg diphenhydrAMINE (BENADRYL) capsule 25 mg 25 mg, Oral, ONCE, 1 dose, On Yaritza 04/01/12 at 0815, Cath (Day of Procedure), Routine Given 04/01/2012 9:20 AM EST 25 mg sodium chloride 0.9% infusion 100 mL/hr, Intravenous, CONTINUOUS, Starting on Yaritza 04/01/12 at 1100, Until Yaritza 04/01/12 at 1459 New Bag 04/01/2012 11:00 AM EST 100 mL/hr 100 mL/hr documented in this encounter Active and Recently Administered Medications Times are shown in EST. Scheduled Medication Order 03/30/2012 03/31/2012 04/01/2012 diaZEPam (VALIUM) tablet 5 mg (COMPLETED) 5 mg, Oral, ONCE, 1 dose, On Yaritza 04/01/12 at 0815, Cath (Day of Procedure), Routine 0815 (Due)0919 (Give n - Provider: Melissa Adames RN) diphenhydrAMINE (BENADRYL) capsule 25 mg (COMPLETED) 25 mg, Oral, ONCE, 1 dose, On Yaritza 04/01/12 at 0815, Cath (Day of Procedure), Routine 0815 (Due)0920 (Give n - Provider: Melissa Adames, PAIGE) Continuous Medication Order 03/30/2012 03/31/2012 04/01/2012 sodium chloride 0.9% infusion () 100 mL/hr, Intravenous, CONTINUOUS, Starting on Yaritza 04/01/12 at 1100, Until Yaritza 04/01/12 at 1459 1100 (New Bag - Prov ider: Familia Jamil RN) PRN Medication Order 03/30/2012 03/31/2012 04/01/2012 fentaNYL 50mcg/mL injection (CANCELED) ONCE PRN, Starting on Yaritza 04/01/12 at 0953, Until Yaritza 04/01/12 at 1041, Pain, Cath (Intra-Procedure), Routine 0953 (Given - Provid er: Ailin Weiss RN) iohexol (OMNIPAQUE) 350 mg iodine/mL injection (CANCELED) ONCE PRN, Starting on Yaritza 04/01/12 at 1033, Until Yaritza 04/01/12 at 1151, Per Protocol, Cath (Intra-Procedure), Routine 1033 (Given - Provid er: Neftali Renner MD) lidocaine (XYLOCAINE) 10 mg/mL (1 %) injection (CANCELED) ONCE PRN, Starting on Yaritza 04/01/12 at 0952, Until Yaritza 04/01/12 at 1151, Cath (Intra-Procedure), Routine 0952 (Given - Provid er: Neftali Renner MD) midazolam (VERSED) injection (CANCELED) ONCE PRN, Starting on Yaritza 04/01/12 at 0954, Until Yaritza 04/01/12 at 1041, Sleep, Cath (Intra-Procedure), Routine 0954 (Given - Provid er: Ailin Weiss RN) sodium chloride 0.9% infusion (CANCELED) CONTINUOUS PRN, Starting on Yaritza 04/01/12 at 1032, Until Yaritza 04/01/12 at 1854, Cath (Intra-Procedure) 1032 (New Bag - Prov ider: Neftali Renner MD) documented in this encounter Care Teams Outdoor Emergency Care Technician Relationship Specialty Start Date End Date Hawk Phelan, SUELLEN PCP - General 01/19/12 01/19/13 documented as of this encounter
--- OUTSIDE RECORDS SUMMARY | 2023-11-04 15:22 | XMS_ITS | Encounter Summary ---
[place] [address] Care Team Providers Care Quality Assurance Coach Name Role Phone Shasta Dixon MD Primary Care Provider [phone]- [phone] Reason for Visit * Reason Onset Date Comments Medication Refill 09/12/2010 Encounter Details Date Type Department Care Team (Late st Contact Info) Description 09/12/2010 [place] [phone] Shanelle Lozada MD [address] [place] [address] [place] [address] Lupus Social History Tobacco Use Types Packs/Day [...] Telephone Visit [facility] [place] [phone] documented as of this encounter Visit Diagnoses Diagnosis Lupus Systemic lupus erythematosus documented in this encounter Care Teams Quality Assurance Coach Relationship Specialty Start Date End Date Shasta Dixon MD [facility] [address] [place] [address] PCP - General 08/07/10 01/18/12 documented as of this encounter
--- OUTSIDE RECORDS SUMMARY | 2023-11-04 15:22 | XMS_ITS | Encounter Summary ---
[place] [address] Care Team Providers Care Chief Dispatcher Name Role Phone Hawk Phelan APRN Primary Care Provider [phone] Reason for Visit * Reason Onset Date Comments Other 10/13/2012 Rituxan Encounter Details Date Type Department Care Team (Late st Contact Info) Description 10/13/2012 Telephone [place] [address] Juventino Grajeda RN Other (Rituxan) Social History Tobacco Use Types Packs/Day Years [...] Telephone Encounter - Juventino Grajeda RN - 10/14/2012 10:12 AM EDT Orders signed and given to Liza to arrange via [facility]. I called Cecilia to let her know and left a message. * Telephone Encounter - Juventino Grajeda RN - 10/14/2012 8:[address] Lozada states Cecilia can start Rituxan. Orders still need to be signed and sent to [facility]. * Telephone Encounter - Juventino Grajeda RN - 10/13/2012 11:34 AM EDT Cecilia calls today and states she has had her oral surgery, and she is clear to start Rituxan Infusions. She would like to have it done at [facility] in [facility]. Message to Dr. Lozada for orders. documented in this encounter Plan of Treatment Upcoming Encounters Date Type Department Care Team (Late st Contact Info) Description 11/11/2023 3:00 AM EDT Anti-Coag Telephone Visit [facility] [address] documented as of this encounter Visit Diagnoses Not on filedocumented in this encounter Care Teams Chief Dispatcher Relationship Specialty Start Date End Date Hawk Phelan APRN PCP - General 01/19/12 01/19/13 documented as of this encounter
--- OUTSIDE RECORDS SUMMARY | 2023-11-04 15:22 | XMS_ITS | Encounter Summary ---
[place] [address] Care Team Providers Care Agriculture Inspector Name Role Phone Shasta Dixon MD Primary Care Provider [phone]- [phone] Reason for Visit * Reason Comments Lupus Encounter Details Date Type Department Care Team (Late st Contact Info) Description 11/27/2010 1:15 PM EDT [place] [phone] Shanelle Lozada MD [address] [place] [address] [place] [address] Lupus (Primary Dx); Antiphospholipid antibody syndrome; SLE (systemic lupus erythematosus); Hypertension Discharge Disposition: Home Social History Tobacco Use [...] Reading Time Taken Comments Blood Pressure 97/57 11/27/2010 1:25 PM EDT Pulse 74 11/27/2010 1:25 PM EDT Temperature 36.8 ??C (98.2 ??F) 11/27/2010 1:25 PM ED T Respiratory Rate 18 11/27/2010 1:25 PM EDT Oxygen Saturation 96% 11/27/2010 1:25 PM EDT Inhaled Oxygen Concentration - - Weight 78.5 kg (173 lb) 11/27/2010 1:25 PM EDT Height 165.1 cm (5' 5) 11/27/2010 1:25 PM EDT Body Mass Index 28.79 11/27/2010 1:25 PM EDT documented in this encounter Progress Notes * Shanelle Lozada MD - 11/27/2010 3:46 PM EDT Cecilia Dumont is seen today because of increasing symptoms suggestive of her lupus. This reevaluation is coming in the setting of the numerous problems listed below. Cecilia was last seen by me in 06/05/2010 and was scheduled to see me in three or four months' time, although the patient did not keep that appointment. She now reports having bad days with fatigue, moodiness, and musculoskeletal pain, as well as increased headaches. She does not have any canker sore of the nose or mouth nor does she have pruritic symptoms as she has had in the past. She does have TIA-type symptoms in association with migraine headaches and continues to take warfarin anticoagulation for her antiphospholipid syndrome. She has not had any cardiac symptoms and recently saw cardiology. She was given a clean bill of health from them and an echocardiogram was scheduled in the near future. It appears that a major reason for her symptom increase is an increase in social stressors. She and her as well as their two children moved in with Cecilia's parents when her father lost his job at [employer] and they are unable to make payments on theirs cars or house. In general, the move is a good one except for Cecilia's sister and her boyfriend who also live there and clearly add an element of stress to the situation. Furthermore, the patient has not had her teeth removed. She ignores symptoms in her mouth. Both the [facility] as well as a dentist in [place] were not willing to do her tooth extractions with her concurrent illnesses. The patient reports no other changes in her past medical history or symptoms that are concerning to her. She has not had trouble with bleeding though Coumadin remains a struggle to get an adequate level. She is currently on 10 mg alternating with 12 mg per day. On physical exam, Cecilia looks well. She does not have a fever and has not experienced fevers or chills at home. Her lungs are clear. Cardiac exam reveals no murmur, rub, or gallop. Her oral cavity shows no ulcerations. She does have fractured teeth on the left top posterior molars and bottom left posterior molars as well as tenderness in the adjacent tooth. These are four teeth that have been recommended to be pulled. She does not have cervical adenopathy. She does not have jaw pain. Her abdomen is soft and nontender without organomegaly. She does not have peripheral edema. Joint exam of the upper and lower extremities bilaterally is normal including her knees which no longer has the effusions status post total joint replacement. My impression is that Cecilia Dumont probably is having increased symptoms of her lupus though this is clearly in the milieu of an increased psychosocial stressors. I had hoped to repeat her Rituxan at this time and we will do so if her CRP is normal. Regardless of getting her Rituxan at this time, she will need to pursue extraction of the offending teeth and I will work to have this happen through our oral surgery Department. CRP is 1.5 - proceed with Rituxan. documented in this encounter Procedure Notes * Provider, Scanning - 03/05/2011 9:16 AM ESTAssociated Order(s): SCAN DOC: ORDS - PROVIDER CARE documented in this encounter Plan of Treatment Upcoming Encounters Date Type Department Care Team (Late st Contact Info) Description 11/11/2023 3:00 AM EDT Anti-Coag Telephone Visit [facility] Central[place] [address] documented as of this encounter Procedures Procedure Name Priority Date/Time Associated Diagnosis Comments ORDS - PROVIDER CARE SCAN 03/05/2011 9:16 AM EST CRP, CARDIAC RISK (HS CRP) Routine 11/27/2010 2:23 PM EDT Lupus documented in this encounter Results * SCAN DOC: ORDS - PROVIDER CARE (03/05/2011 9:16 AM EST) Narrative 03/05/2011 9:16 AM EST Procedure Note Provider, Scanning - 03/05/2011 9:16 AM EST Scanning Provider MEDIA MGR SCAN EXT O RDR/RSLT * High Sensitivity CRP (11/27/2010 2:23 PM EDT) Pathologist [facility] CRP High Sens 1.8 mg/L [facility] Comment: Interpretations: 1) For cardiac risk assessment, two values (fasting or nonfasting sample acceptable) taken at least 2 weeks apart, should be averaged to provide a more reliable estimate of marker level. ??This laboratory uses the recommendations from the AHA/CDC Scientific Statement for interpretations of future risks of cardiovascular events: ? <1.0 mg/L: low risk 1.0 - 3.0 mg/L: moderate risk >3.0 mg/L: high risk groups for future cardiovascular events 2) The general reference range of apparently healthy individuals using this test is <5.0 mg/L (derived from the test package insert) A few words of caution: For cardiac assessment, when a value >10 mg/L is encountered, there should be a search for an acute inflammatory condition or infection (in patients with acute inflammation, the concentration can increase to >500 mg/L). ??The >10 mg/L should be discarded if such a situation exists, since the risk for coronary heart disease cannot be provided, and a repeat specimen, taken at least two weeks after resolution of the acute inflammatory condition, may allow for appraisal of coronary risk information. References: 1. Juan DRAKE et. al. ??AHA/CDC Scientific Statement: Markers of Inflammation and Cardiovascular Disease. ??Circulation 2003; 107:499-511 2. Ashley PM. ??Clinical applications of C-reactive protein for cardiovascular disease detection and prevention. ??Circulation 2003; 107:363-369 Blood specimen (specimen) 11/27/2010 2:23 PM EDT 11/27/2010 2:29 PM EDT Shanelle Lozada MD CHEMISTRY ORDERABLES [facility] documented in this encounter Visit Diagnoses Diagnosis Lupus- Primary Systemic lupus erythematosus Antiphospholipid antibody syndrome Primary hypercoagulable state SLE (systemic lupus erythematosus) Systemic lupus erythematosus Hypertension Unspecified essential hypertension documented in this encounter Care Teams Agriculture Inspector Relationship Specialty Start Date End Date Shasta Dixon MD [facility] [address] [place] [address] PCP - General 08/07/10 01/18/12 documented as of this encounter
--- OUTSIDE RECORDS SUMMARY | 2023-11-04 15:22 | XMS_ITS | Encounter Summary ---
[place] [address] Care Team Providers Care Transcription Manager Name Role Phone Shasta Dixon MD Primary Care Provider +1- [phone] Reason for Visit * Reason Onset Date Comments Anticoagulation 08/26/2010 Encounter Details Date Type Department Care Team (Late st Contact Info) Description 08/26/2010 Telephone [place] [address] Lynnette Melissa RN Anticoagulation Social History Tobacco Use Types Packs/Day Years Used Date Smoking Tobacco: Never Assessed Sex and Gender Information Value Date Recorded Sex Assigned at Female 05/01/2021 10:41 AM EST Gender Identity Female 05/01/2021 10:41 AM EST Sexual Orientation Straight 05/01/2021 10 :41 AM EST documented as of this encounter Miscellaneous Notes * Telephone Encounter - Lynnette Melissa, RN - 08/26/2010 4:41 PM EDT Message copied by LYNNETTE MELISSA on ThuAugust 26, 2010 4:41 PM ------ Message from: SHIN ZULETA Created: ThuAugust 26, 2010 3:33 PM Regarding: Add to log 08/27 Pt forgot to go to lab today. She will go tomorrow 5/24 documented in this encounter Plan of Treatment Upcoming Encounters Date Type Department Care Team (Late st Contact Info) Description 11/11/2023 3:00 AM EDT Anti-Coag Telephone Visit [facility] [place] [address] documented as of this encounter Visit Diagnoses Not on filedocumented in this encounter Care Teams Transcription Manager Relationship Specialty Start Date End Date Shasta Dixon MD [facility] [address] [place] [address] PCP - General 08/07/10 01/18/12 documented as of this encounter
--- OUTSIDE RECORDS SUMMARY | 2023-11-04 15:22 | XMS_ITS | Encounter Summary ---
[place] [address] Care Team Providers Care Supervisor Water Treatment Plant Name Role Phone Hawk Phelan APRN Primary Care Provider [phone] Reason for Visit * Reason Comments Lupus Encounter Details Date Type Department Care Team (Latest Contact Info) Description 03/25/2012 2:45 PM EST [place] [phone] Shanelle Lozada MD [address] [place] [address] [place] [address] Antiphospholipid antibody syndrome; Dilated cardiomyopathy, resolved; H/O: CVA (cardiovascular accident); SLE (systemic lupus erythematosus); JAN on CPAP Discharge Disposition: Home Social History Tobacco Use [...] Sign Reading Time Taken Comments Blood Pressure 92/44 03/25/2012 3:00 PM EST Pulse 73 03/25/2012 3:00 PM EST Temperature 36.3 ??C (97.3 ??F) 03/25/2012 3:00 PM ES T Respiratory Rate - - Oxygen Saturation 96% 03/25/2012 3:00 PM EST Inhaled Oxygen Concentration - - Weight 79.8 kg (176 lb) 03/25/2012 3:00 PM EST Height 166.4 cm (5' 5.5) 03/25/2012 3:00 PM EST Body Mass Index 28.84 03/25/2012 3:00 PM EST documented in this encounter Progress Notes * Shanelle Lozada MD - 03/25/2012 8:40 AM EST PROBLEM LIST 1. Systemic lupus erythematosus with discoid rash, arthritis, oral and nasal ulcers, pleuro pericarditis, Raynaud's phenomena treated with cyclophosamide, steroids and rituximab. rituxan 05/14 with CD19 36 in 12/12; rituxan 04/14/08 and 05/01/08; 04/15 2. 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 Currently on snf anticoagulation with low molecular weight heparin. 3. Cardiomyopathy, probably secondary to lupus. Endomyocardial biopsy negative for viral changes, changes of hydroxychloroquine myopathy or other specific etiology. Recovery of ejection fraction by echocardiogram 2005. 4. Depression. 5. Prior treatment for osteoporosis while on prednisone with Actonel and calcium. DEXA 2001, spine -1.0, hip -0.6. Actonel DC'd 10/2008. 6. Prednisone associated weight gain. 7. Parvovirus infection 2003. 8. Endometrial ablation for menometrorrhagia exacerbated by heparin. 9. Acute renal failure secondary to acute tubular necrosis from low flow state and cardiomyopathy; resolved. 10. Alveolar hemorrhage associated with pulmonary edema and Lovenox use; resolved. 11. Atrial septal defect. 12. 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 13: Fractured and infected teeth. Cecilia Dumont is seen today having last seen me 11/28/2010. She received rituximab at that time and then moved to [place] for a 11 months. For a time, she was living in [place] with her mom and dad but when her dad lost his job, they ultimately relocated to [place]. Cecilia and her moved in with good friends who lived in [place], but this did not ultimately work out. She is currently living in [facility]. 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 Her children, Suellen, 14, and Franky, 15, are doing well. Cecilia believes she needs Rituxan. She did not receive this in [place], although she did see a process trainer. She still gets Raynaud's but has not had any significant arthritis or skin rash. She recently had a cardiac echo, which showed normal ejection fraction and minimal aortic insufficiency and normal pulmonary pressures. However, she does have a cardiac cath scheduled on March 29 because she develops chest pain and dyspnea on exertion in climbing hills in [facility]. Outside of these concerns, she does not have any other symptoms. She continues to have tooth problems and in fact was referred to a rn lpn cna because of needing to get her teeth removed. She takes OxyContin for her teeth pain as well. She has had decreased headaches. SOCIAL HISTORY: In addition to those listed above, it is pertinent for her Cale having an FL at age 48 and requiring two stents. After discharge, he had a second FL as well as a infection treated with antibiotics and complicated by C. diff. The patient continues to be on Coumadin, although she is currently on a heparin bridge in preparation for her cath. BP 92/44 Pulse 73 Temp(Src) 36.3 ??C (97.3 ??F) (Oral) Ht 166.4 cm (5' 5.5) Wt 79.833 kg (176 lb) BMI 28.84 kg/m2 SpO2 96% PHYSICAL EXAMINATION: Cecilia looks well. There is no facial rash or other rash. She does not have livedo reticularis. Her thyroid is normal in size. She has no cervical adenopathy. Her lungs are clear to auscultation. Cardiac exam reveals regular rate and rhythm. I do not appreciate an aortic insufficiency murmur. Her abdomen is soft and nontender without enlarged liver or spleen. She has no peripheral edema. Joint exam is remarkably negative, and she does not have any digital pitting or nailfold capillary changes. LABORATORY DATA: I do not have any laboratory tests done here at [place], though she has had some done in [facility]. These were reviewed. My impression is that Cecilia Dumont is generally doing well with her lupus. Her main symptom of lupus now is fatigue. I have recommended that rather than giving her Rituxan at this time that we Await for her cardiac catheterization and also her tooth extraction. After this she will contact me and we will set her up for retreatment as it will be close to 18 months. documented in this encounter Procedure Notes * Provider, Scanning - 05/20/2013 10:35 AM ESTAssociated Order(s): SCAN DOC: ORDS - PROVIDER CARE documented in this encounter Plan of Treatment Upcoming Encounters Date Type Department Care Team (Late st Contact Info) Description 11/11/2023 3:00 AM EDT Anti-Coag Telephone Visit [facility] Central[place] [address] documented as of this encounter Procedures Procedure Name Priority Date/Time Associated Diagnosis Comments ORDS - PROVIDER CARE SCAN 05/20/2013 10:35 AM EST documented in this encounter Results * SCAN DOC: ORDS - PROVIDER CARE (05/20/2013 10:35 AM EST) Narrative 05/20/2013 10:35 AM EST Procedure Note Provider, Scanning - 05/20/2013 10:35 AM EST Scanning Provider MEDIA MGR SCAN EXT O RDR/RSLT documented in this encounter Visit Diagnoses Diagnosis Antiphospholipid antibody syndrome Primary hypercoagulable state Dilated cardiomyopathy, resolved Other primary cardiomyopathies H/O: CVA (cardiovascular accident) Transient ischemic attack (TIA), and cerebral infarction without residual deficits SLE (systemic lupus erythematosus) Systemic lupus erythematosus JAN on CPAP Obstructive sleep apnea (adult) (pediatric) documented in this encounter Care Teams Supervisor Water Treatment Plant Relationship Specialty Start Date End Date Hawk Phelan APRN PCP - General 01/19/12 01/19/13 documented as of this encounter
--- OUTSIDE RECORDS SUMMARY | 2023-11-04 15:22 | XMS_ITS | Encounter Summary ---
[place] [address] Care Team Providers Care Cook Fishing Vessel Name Role Phone Shasta Dixon MD Primary Care Provider [phone]- [phone] Encounter Details Date Type Department Care Team (Late st Contact Info) Description 09/19/2010 Anti-Coag Telephone [place] [address] Lexy Bailey APRN [facility] DEPT [place] [address] Social History Tobacco Use Types Packs/Day Years Used Date Smoking Tobacco: Never Assessed Sex and Gender Information Value Date Recorded Sex Assigned at Female 05/01/2021 10:41 AM EST Gender Identity Female 05/01/2021 10:41 AM EST Sexual Orientation Straight 05/01/2021 10 :41 AM EST documented as of this encounter Patient Instructions * Patient Instructions* Lexy Flores APRN - 09/19/2010 3:58 PM EDT Your INR result today is: 2.7 [facility] Therapeutic Range 2.0-3.5 Please take your Warfarin, [...] 3 3 3 1/2 3 3 3 1 Your next INR is scheduled for: 4 wk [facility] [phone] documented in this encounter Progress Notes * Lexy Flores APRN - 09/19/2010 3:57 PM EDT Anticoagulation Telephone Note Indication: Antiphospholipid antibody, Hx CVA, Dilated cardiomyopathy Duration of treatment: Lifelong with annual review Range: 2.0-3.5 INR : 2.7 Drawn by: [facility] Monitored by: [facility] Next INR Due: 4 weeks Spoke w/patient on cell # [phone]. Home phone [phone] was out of service Standing order @ [facility] expires 12/12/10 Warfarin dose : Increased Decreased x Maintained [...] Plan: Yes, travel precautions reviewed. No Comment: documented in this encounter Plan of Treatment Upcoming Encounters Date Type Department Care Team (Late st Contact Info) Description 11/11/2023 3:00 AM EDT Anti-Coag Telephone Visit [facility] [place] [address] documented as of this encounter Procedures Procedure Name Priority Date/Time Associated Diagnosis Comments PROTHROMBIN TIME Routine 09/19/2010 documented in this encounter Results * (ABNORMAL) Prothrombin Time (09/19/2010) INR 2.7(A) 0.9 - 1.1 Blood specimen (specimen) Historical Provider HEMATOLOGY ORDERA BLES documented in this encounter Visit Diagnoses Not on filedocumented in this encounter Care Teams Cook Fishing Vessel Relationship Specialty Start Date End Date Shasta Dixon MD [facility] [address] [place] [address] PCP - General 08/07/10 01/18/12 documented as of this encounter
--- OUTSIDE RECORDS SUMMARY | 2023-11-04 15:22 | XMS_ITS | Encounter Summary ---
[place] [address] Care Team Providers Care Copper Flotation Operator Name Role Phone Shasta Dixon MD Primary Care Provider +1- [phone] Reason for Visit * Reason Onset Date Comments Medication Refill 09/05/2010 Encounter Details Date Type Department Care Team (Late st Contact Info) Description 09/05/2010 Refill [place] [phone] Shanelle Lozada MD [address] [place] [address] [place] [address] Lupus Social History Tobacco Use Types Packs/Day [...] Anti-Coag Telephone Visit [facility] Centralized [place] [address] documented as of this encounter Visit Diagnoses Diagnosis Lupus Systemic lupus erythematosus documented in this encounter Care Teams Copper Flotation Operator Relationship Specialty Start Date End Date Shasta Dixon MD [facility] [address] [place] [address] PCP - General 08/07/10 01/18/12 documented as of this encounter
--- OUTSIDE RECORDS SUMMARY | 2023-11-04 15:22 | XMS_ITS | Encounter Summary ---
[place] [address] Care Team Providers Care Aviation Metalsmith Name Role Phone Shasta Dixon MD Primary Care Provider +1- [phone] Reason for Visit * Reason Onset Date Comments Medication Refill 09/12/2010 Encounter Details Date Type Department Care Team (Late st Contact Info) Description 09/12/2010 Refill [place] [phone] Shanelle Lozada MD [address] [place] [address] [place] [address] Lupus Social History Tobacco Use Types Packs/Day [...] Visit [facility] [place] [place] [phone] documented as of this encounter Visit Diagnoses Diagnosis Lupus Systemic lupus erythematosus documented in this encounter Care Teams Aviation Metalsmith Relationship Specialty Start Date End Date Shasta Dixon MD [facility] [address] [place] [address] PCP - General 08/07/10 01/18/12 documented as of this encounter
--- OUTSIDE RECORDS SUMMARY | 2023-11-04 15:22 | XMS_ITS | Encounter Summary ---
[place] [address] Care Team Providers Care Platen Press Feeder Name Role Phone Alaina Peralta APRN Primary Care Provider +1- [phone] Encounter Details Date Type Department Care Team (Late st Contact Info) Description 01/20/2013 1:40 PM EDT Office Visit Sleep Center at [facility] [address] [place] [address] Shannon Capps MD [facility] [place] [address] JAN (obstructive sleep apnea) (Primary Dx) Social History Tobacco Use Types [...] Sign Reading Time Taken Comments Blood Pressure 114/62 01/20/2013 1:56 PM EDT Pulse 73 01/20/2013 1:56 PM EDT Temperature - - Respiratory Rate - - Oxygen Saturation 96% 01/20/2013 1:56 PM EDT Inhaled Oxygen Concentration - - Weight 90.7 kg (200 lb) 01/20/2013 1:56 PM EDT Height 162.6 cm (5' 4) 01/20/2013 1:56 PM EDT Body Mass Index 34.33 01/20/2013 1:56 PM EDT documented in this encounter Progress Notes * Shannon Capps MD - 01/20/2013 2:01 PM EDT Sleep Medicine Consultation Note HPI: Ms. Cecilia Dumont is a 43 y.o. female seen at the request of Dr. Peralta for advice regarding suspected obstructive sleep apnea. She was previously diagnosed in 2005 at [facility] with an overall AHI of 31/hr (AI [...] stopped using it altogether and moved to [place] -but didn't have insurance at the time. [...] machine to start. Unclear what setting. Ye Freedtommy Medium - excellent condition. She has many medical issues - things are generally stable but, she is getting ECHO and MRI of heartdue to concerns of restrictive pericarditis due to severe dyspnea with exertion (up stairs, etc. ) Sleep Apnea Risk: Snoring: yes, loud, no positional difference - will wake her Observed Apneas: yes Mouth Breathing: yes Dry Mouth: yes (day and night) Nocturnal Gasping: yes Nasal Obstruction: no Sleep Pattern: Location: sleeps in LR Bed/Recliner/Wedge: sleeps in a twin with , usually ending up on the couch # of pillows under head: two Position: side Bedtime: 10:00pm, TV on, asleep quickly, TV off at 11:00pm Awakenings: sleep is fragmented, lots of awakenings Rise time: 6:00am Weekends 7- 8 am Daytime Symptoms: Thaxton: 14/24 Upon Awakening: drags out of bed Daytime fatigue/sleepiness: yes Naps: 1 x a day, if can fit it in Involuntary Dozing: yes Cognitive Symptoms: yes Driving: no Close calls related to sleepiness: no Accidents related to sleepiness: no Sleep Review of Symptoms Parasomnias: Sleep Walking: no Dream Enactment: no Bruxism: yes Motor: RLS: in the past was bad, not now - doing fine off meds PLMS: yes Narcolepsy: Hallucinations: no Paralysis: no Cataplexy: not asked Past/Childhood Sleep History: sleep walked as a kid Family History: Family history of sleep disorders: both parents with JAN, father is a a/c technician Past Medical History Diagnosis Date ??? Chest pain 04/01/2012 ??? FATIMA (dyspnea on exertion) 04/01/2012 ??? Osteoporosis 04/01/2012 ??? H/O total knee replacement 04/01/2012 ??? CHF (congestive heart failure) ??? Cerebrovascular accident ??? Antiphospholipid antibody syndrome ??? SLE (systemic lupus erythematosus) ??? Depression ??? JAN (obstructive sleep apnea) ??? Migraine ??? Osteoporosis ??? Hypertension Problem List: Patient Active Problem List Diagnosis Code ??? Depression 311 ??? Dilated cardiomyopathy, improved 425.4 ??? Hypertension 401.9 ??? SLE (systemic lupus erythematosus) 710.0 ??? Antiphospholipid antibody syndrome 289.81 ??? H/O: CVA (cardiovascular accident) V12.54 ??? JAN on CPAP 327.23 ??? Migraine 346.90 ??? Hyperlipemia 272.4 ??? Chest pain 786.50 ??? FATIMA (dyspnea on exertion) 786.09 ??? Osteoporosis 733.00 ??? H/O total knee replacement V43.65 Social History: Employment: not working Alcohol: special occasions Smoking: no Caffeine: coffee in am and soda in afternoon Family: lives with and two teens (16, 15 yrs) ROS: CON: weight change: see HPI ENT: nasal obstruction: see HPI NEURO: sleep related headaches: no CV: chest pain: yes Palpitations: yes LE edema: no PUL: FATIMA: yes PSY: Depression: yes, treated Anxiety: yes, treated GI: GERD: yes - on meds : Nocturia: no MSK: Pain: no ALL: Environmental Allergies: no MSE: Alert and appropriate: yes Oriented to person, place and time: yes Mood: normal Affect: normal PE: BP 114/62 Pulse 73 Ht 162.6 cm (5' 4) Wt 90.719 kg (200 lb) BMI 34.33 kg/m2 SpO2 96% General: alert, pleasant, no distress Eyes: Conjunctivae: clear EOM: full ENT: MP: 3/4 Facial deformity: no Hard palate: high arched Soft palate: elongated Gums and teeth: adeqate Tongue: large for space, Nares: limited flow Pul: Respirations: NAD Auscultation: clear Neck/Lymphatics: Circumference: 14 Cardiac: HS: RRR Neuro: alert, no tremor Musculoskeletal: Gait and stance: normal Assessment: Ms. Cecilia Dumont is a 43 y.o. female who is seen to evaluate for known obstructive sleep apnea - she has previous document JAN (AHI 31/hr, AI 5.4/hr in 2006). Given her weight gain andclear symptoms, she undoubtedly has ongoing JAN and wants to restart CPAP but her equipment from 2006 has failed. Although she has a h/o cardiomyopathy, her ejection fraction appears relatively preserved (60%) but she will be undergoing further evaluation in the near future. CHF may place her at risk for holly ley - despite that, I do think it is reasonable to pursue a trial of AUTOPAP and monitoring the download and her clinical response for benefit. If questions arise as to adequate treatment or central sleep apnea, then a formal PAP titration will be recommended. We discussed the different options - CPAP titration versus trial of AUTOPAP and she would prefer to trial the machine first. We reviewed mask options and due to a strong tendency for mouth breathing during the day, she will likely need to stay with a full facemask but would like a smaller profile if possible. I suggest she look at the Quattro Air. A mask fitting will be requested with set up. We discussed home care company options and she chose [facility]. Diagnostic Codes: JAN 327.23 Time spent face to face: 55 min Time spent devoted to counseling and discussion: 25 min Reccomendations: 1) AUTOPAP 6 - 18 cm, ?Quattro Air. Return to CPAP clinic to assess her initial response, trouble shoot any mask fit issues, and ensure no significant central apnea/periodic breathing. 2) Driving safety was reviewed with patient. If the patient feels too sleepy to drive he/she knows not to drive. If he/she becomes sleepy while driving he/she will tap puller and nap. 3) Follow up with me in about 3 months to review her overall response/ The patient indicates understanding of these issues and agrees with the plan. Shannon Capps MD documented in this encounter Plan of Treatment Upcoming Encounters Date Type Department Care Team (Late st Contact Info) Description 11/11/2023 3:00 AM EDT Anti-[place] [address] documented as of this encounter Visit Diagnoses Diagnosis JAN (obstructive sleep apnea)- Primary Obstructive sleep apnea (adult) (pediatric) documented in this encounter Care Teams Platen Press Feeder Relationship Specialty Start Date End Date Alaina Peralta APRN PCP - General 01/20/13 06/01/16 documented as of this encounter
--- OUTSIDE RECORDS SUMMARY | 2023-11-04 15:22 | XMS_ITS | Encounter Summary ---
[place] [address] Care Team Providers Care Cleaner Furniture Name Role Phone Shasta Dixon MD Primary Care Provider [phone]- [phone] Encounter Details Date Type Department Care Team (Late st Contact Info) Description 01/20/2011 Telephone [place] [address] Janel Leo RN Social History Tobacco Use Types Packs/Day [...] encounter Miscellaneous Notes * Telephone Encounter - Janel Leo RN - 01/20/2011 5:20 PM EDT Kalli Lino - INR reminder ','<More Detail >> From Kalli Lino Sent Thursday January 20, 2011 10:29 AM To Radha Agarwalag Subject INR reminder Message Pt has moved to [place] and does not need us to manage her anticoagulation anymore. Please change anticoag tracker to reflect change in status. documented in this encounter Plan of Treatment Upcoming Encounters Date Type Department Care Team (Late st Contact Info) Description 11/11/2023 3:00 AM EDT Anti-Coag Telephone Visit [facility] [place] [address] documented as of this encounter Visit Diagnoses Not on filedocumented in this encounter Care Teams Cleaner Furniture Relationship Specialty Start Date End Date Shasta Dixon MD [facility] [address] [place] [address] PCP - General 08/07/10 01/18/12 documented as of this encounter
--- OUTSIDE RECORDS SUMMARY | 2023-11-04 15:22 | XMS_ITS | Encounter Summary ---
Author Organization [facility] Address [facility] [place] [address] Care Team Providers Care Supply Specialist Name Role Phone Hawk Phelan APRN Primary Care Provider [phone] Encounter Details Date Type Department Care Team (Late st Contact Info) Description 03/22/2012 Orders Only Cardiology at [address] [address] Devon Renner MD [facility] [place] [address] H/O: CVA (cardiovascular accident); Antiphospholipid antibody syndrome; SLE (systemic lupus erythematosus); Dilated cardiomyopathy Social History Tobacco Use Types Packs/Day Years [...] AM EST documented as of this encounter Procedure Notes * Provider, Scanning - 04/01/2012 10:49 AM ESTAssociated Order(s): CARDIAC CATHETERIZATION documented in this encounter Plan of Treatment Upcoming Encounters Date Type Department Care Team (Late st Contact Info) Description 11/11/2023 3:00 AM EDT Anti-Coag Telephone Visit [facility] [place] [address] documented as of this encounter Results * Cardiac Catheterization (04/01/2012 10:49 AM EST) Anatomical Region Laterality Modality Other Narrative Transcriptions Provider, Scanning - 04/01/2012 10:49 AM EST Devon Renner MD CARDIAC CATH ORDERAB LES documented in this encounter Visit Diagnoses Diagnosis H/O: CVA (cardiovascular accident) Transient ischemic attack (TIA), and cerebral infarction without residual deficits Antiphospholipid antibody syndrome Primary hypercoagulable state SLE (systemic lupus erythematosus) Systemic lupus erythematosus Dilated cardiomyopathy Other primary cardiomyopathies documented in this encounter Care Teams Supply Specialist Relationship Specialty Start Date End Date Hawk Phelan, SUELLEN PCP - General 01/19/12 01/19/13 documented as of this encounter
--- OUTSIDE RECORDS SUMMARY | 2023-11-04 15:22 | XMS_ITS | Encounter Summary ---
[place] [address] Care Team Providers Care Power Regulator Name Role Phone Shasta Dixon MD Primary Care Provider [phone]- [phone] Reason for Visit * Reason Comments Anticoagulation - Senior Care Encounter Details Date Type Department Care Team (Late st Contact Info) Description 10/03/2010 3:00 PM EDT Follow-[place] [phone] Lexy Bailey APRN [facility] [place] [address] Anticoagulant long-term use (Primary Dx) Discharge Disposition: Home Social History [...] Sign Reading Time Taken Comments Blood Pressure 105/61 10/03/2010 3:37 PM EDT Pulse 67 10/03/2010 3:37 PM EDT Temperature - - Respiratory Rate 18 10/03/2010 3:37 PM EDT Oxygen Saturation - - Inhaled Oxygen Concentration - - Weight - - Height - - Body Mass Index - - documented in this encounter Progress Notes * Lexy Flores, RUG HOOKER HAND - 10/03/2010 3:36 PM EDT Subjective: Patient ID: Cecilia Dumont is a 40 y.o. female. Anticoagulation Therapy Annual Review This 40 y/o patient initiated anticoagulation therapy on: Indication for anticoagulation: h/o CVA with antiphospholipid antibody with an INR goal of: 2.0-3.0 Duration of therapy: indefinite Any Chance of ?no, tubal ligation PCP: Dr Dixon Hx CVA. From Dr carrillo note 03/05/2010 Past Medical/Surgical History: cardiomyopathy depression h/o CVA with antiphospholipid antibody migraine headaches overweight risk for osteoporosis SLE hyperlipidemia / hypertriglyceridemia bilateral TKR 01/09 GERD Social hx: . 2 children and 2 step children grandson on the [address] Occupation: none hobbies/sports: [employer] book, photography- tobacco: no ETOH: rare Illicit drugs no Herbal medications no Activity level/mobility - walks , considering zimba Bleeding Risk-- No recent falls, gait steady. H HTN yes A Abnormal Renal and Liver Function (1pt each) no S Stroke YES B Bleeding no L Labile INRs LABILE E Elderly (Age >65) 40 D Drugs or Alcohol (NSAIDs Antiplatlets) Advil for pain THROMBOSIS RISK FACTORS Risk Factor Comment Obesity (BMI >30 kg/m2) V/A Diabetes V/A Current smoker V/A Estrogen or estrogen/progestin V/A V/A No tubal ligation Inflammatory disease V/A lupus Recent surgery (<3 months) V Recent hospitalization (<3 mo) V Recent travel (<3 mo) V Period of immobility V Documented thrombophilia V h/o CVA with antiphospholipid antibody Accident/Trauma V/A Cancer or treatment for cancer V/A Blood transfusion V/A Central venous catheter V Family history (1st degree) V/A Varicose veins V Hypertension A Hyperlipidemia A Vascular disease A V: Risk factor for venous thrombosis; A: Risk factor for arterial thrombosis HPI Review of Systems HENT: Negative for nosebleeds. Eyes: Negative for redness. Respiratory: Negative for chest tightness and shortness of breath. Cardiovascular: Negative for chest pain and leg swelling. Gastrointestinal: Negative for blood in stool. Genitourinary: Negative for hematuria. Skin: Negative for color change. Neurological: Negative for facial asymmetry, speech difficulty, weakness and headaches. Hematological: Bruises/bleeds easily. Objective: Physical Exam Constitutional: She is oriented to person, place, and time. She appears well- developed and well-nourished. Eyes: Left conjunctiva has no hemorrhage. Cardiovascular: Normal rate and regular rhythm. Pulmonary/Chest: Effort normal and breath sounds normal. Musculoskeletal: She exhibits no edema and no tenderness. Neurological: She is alert and oriented to person, place, and time. Skin: Skin is warm and dry. No erythema. Assessment and Plan: No problem-specific visit notes found for this encounter. Indications for continued anticaogulation therpay include h/o CVA with antiphospholipid antibody, origin of thrombus with CVA unclear Risk for cardioembolic event is high Risk and benfit of anticoagulation therpay reviewed with pt who expressed understanding of need foranticoagulation. Signs and symptoms of CVA and bleeding reviewed with emphasis on when to seek emergent care. Reduction of modifiable risk factors discussed including weight loss, maintaining active lifestyle and balanced diet. Importance of maintaining control of HTN Labile INR, emphasized importance of communication with anticoagulation nurses and compliance with INR monitoring, discussed maintaining consistency in diet. Warfarin teaching packet provided, reviewed medications to avoid - she has been taking Motrin for headaches and discomfort. Increased risk ofbleeding with NSAIDs reviewed, advised to use acetaminophen for pain. 45 minutes of this 60 minute visit was spent in direct counseling and coordination of care for above issues documented in this encounter Plan of Treatment Upcoming Encounters Date Type Department Care Team (Late st Contact Info) Description 11/11/2023 3:00 AM EDT Anti-Coag Telephone Visit [facility] [place] [address] documented as of this encounter Procedures Procedure Name Priority Date/Time Associated Diagnosis Comments PROTHROMBIN TIME STAT 10/03/2010 4:21 PM EDT Anticoagulant long-term use documented in this encounter Results * (ABNORMAL) Prothrombin Time (10/03/2010 4:21 PM EDT) PT 25.4(H) 12.3 - 14.7 sec YVETTE JANIKONSTANTINIUM Comment: [facility] Transfusion Committee Guidelines: INR less than 2.0, PTT less than OR equal to 43.5 seconds, or Fibrinogen greater than or equal to 100 mg/dl indicate adequate procoagulant activity for hemostasis in patients without underlying bleeding disorders. INR 2.3(H) 0.9 - 1.1 YVETTE VARELA Blood specimen (specimen) 10/03/2010 4:21 PM EDT 10/03/2010 4:40 PM EDT Luz Jerry MD HEMATOLOGY ORDERABLE S YVETTE VARELA documented in this encounter Visit Diagnoses Diagnosis Anticoagulant long-term use- Primary Encounter for long-term (current) use of anticoagulants documented in this encounter Care Teams Power Regulator Relationship Specialty Start Date End Date Shasta Dixon MD [facility] [address] [place] [address] PCP - General 08/07/10 01/18/12 documented as of this encounter
--- OUTSIDE RECORDS SUMMARY | 2023-11-04 15:22 | XMS_ITS | Encounter Summary ---
[place] [address] Care Team Providers Care Child Health Associate Name Role Phone Shasta Dixon MD Primary Care Provider [phone]- [phone] Reason for Visit * Reason Comments Medication Refill Encounter Details Date Type Department Care Team (Late st Contact Info) Description 08/15/2011 [place] [phone] Shanelle Lozada MD [address] [place] [address] [place] [address] Social History Tobacco Use Types Packs/Day Years [...] 11/11/2023 3:00 AM EDT [place] [address] documented as of this encounter Visit Diagnoses Not on filedocumented in this encounter Care Teams Child Health Associate Relationship Specialty Start Date End Date Shasta Dixon MD [facility] [place] [address] PCP - General 08/07/10 01/18/12 documented as of this encounter
--- OUTSIDE RECORDS SUMMARY | 2023-11-04 15:22 | XMS_ITS | Encounter Summary ---
[place] [address] Care Team Providers Care Squadron Worker Name Role Phone Shasta Dixon MD Primary Care Provider [phone]- [phone] Encounter Details Date Type Department Care Team (Late st Contact Info) Description 09/11/2010 Anti-Coag Telephone [place] [address] Yusra Aviles, RN Social History Tobacco Use Types Packs/Day Years Used Date Smoking Tobacco: Never Assessed Sex and Gender Information Value Date Recorded Sex Assigned at Female 05/01/2021 10:41 AM EST Gender Identity Female 05/01/2021 10:41 AM EST Sexual Orientation Straight 05/01/2021 10 :41 AM EST documented as of this encounter Patient Instructions * Patient Instructions* Yusra Aviles, RN - 09/11/2010 4:08 PM EDT Your INR result today is: 2.4 [facility] Therapeutic Range 2.0-3.5 Please take [...] 04/07 Your next INR is scheduled for: 1 wk [facility] Anticoagulation Clinic [phone] documented in this encounter Progress Notes * Yusra Aviles RN - 09/11/2010 4:00 PM EDT Anticoagulation Telephone Note Indication: Antiphospholipid antibody, Hx CVA, Dilated cardiomyopathy Duration of treatment: Lifelong with annual review Range: 2.0-3.5 INR : 1.84 Drawn by: Rudy Monitored by: JIE Next INR Due: 1 wk Spoke w/patient on cell # [phone]. Home phone [phone] was out of service Standing order @ [facility] expires 12/12/10 Warfarin dose : x Increased Decreased Maintained Comment Bleeding: Epistaxis Black tarry stools [...] [facility] Centralized Anticoagulation [facility] [place] [address] documented as of this encounter Procedures Procedure Name Priority Date/Time Associated Diagnosis Comments PROTHROMBIN TIME Routine 09/11/2010 documented in this encounter Results * (ABNORMAL) Prothrombin Time (09/11/2010) INR 1.8(A) 0.9 - 1.1 EXTERNAL LAB Comment:[facility] Blood specimen (specimen) Historical Provider HEMATOLOGY ORDERA BLES EXTERNAL LAB documented in this encounter Visit Diagnoses Not on filedocumented in this encounter Care Teams Squadron Worker Relationship Specialty Start Date End Date Shasta Dixon MD [facility] [address] [place] [address] PCP - General 08/07/10 01/18/12 documented as of this encounter
--- OUTSIDE RECORDS SUMMARY | 2023-11-04 15:22 | XMS_ITS | Encounter Summary ---
[place] [address] Care Team Providers Care Professor Of Chemistry Name Role Phone Shasta Dixon MD Primary Care Provider +1- [phone] Reason for Visit * Reason Onset Date Comments Anticoagulation 11/18/2010 Encounter Details Date Type Department Care Team (Late st Contact Info) Description 11/18/2010 Telephone [place] [phone] Lexy Bailey [facility] [place] [address] Anticoagulation Social History Tobacco Use Types Packs/Day [...] encounter Miscellaneous Notes * Telephone Encounter - Lexy Flores APRN - 11/18/2010 1:00 PM EDT Anticoagulation Telephone Note Indication: Antiphospholipid antibody, Hx CVA, Dilated cardiomyopathy Duration of treatment: Lifelong with annual review Range: 2.0-3.5 INR : 2.5 Drawn by: [facility] Monitored by: JIE Next INR Due: One month [facility] lab Message left on voice mail Warfarin dose : Increased Decreased x Maintained [...] Visit [facility] [place] [address] documented as of this encounter Visit Diagnoses Not on filedocumented in this encounter Care Teams Professor Of Chemistry Relationship Specialty Start Date End Date Shasta Dixon MD [facility] [address] [place] [address] PCP - General 08/07/10 01/18/12 documented as of this encounter
--- OUTSIDE RECORDS SUMMARY | 2023-11-04 15:22 | XMS_ITS | Encounter Summary ---
Author Organization [facility] [place] [address] Care Team Providers Care Clinical Trial Leader Name Role Phone Shasta Dixon MD Primary Care Provider +1- [phone] Encounter Details Date Type Department Care Team (Latest Contact Info) Description 11/27/2010 2:17 PM EDT - 11/27/2010 11:59 PM EDT Hospital [place] [phone] Min, Luz Cid MD [facility] [place] [address] Anticoagulant long-term use Discharge Disposition: Home Social [...] 05/18/2017 lisinopril (PRINIVIL;ZESTRIL) 10 mg tabletIndications:Other primary cardiomyopathies,group home (current) use of anticoagulants Take 1 tablet by mouth daily. 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) use of anticoagulants Take 1 tablet [...] Telephone Visit [facility] [place] [address] documented as of this encounter Procedures Procedure Name Priority Date/Time Associated Diagnosis Comments PROTHROMBIN TIME STAT 11/27/2010 2:23 PM EDT Anticoagulant long-term use documented in this encounter Results * (ABNORMAL) Prothrombin Time (11/27/2010 2:23 PM EDT) PT 30.1(H) 12.3 - 14.7 sec YVETTE MILLENNIUM Comment: [facility] Transfusion Committee Guidelines: INR less than 2.0, PTT less than OR equal to 43.5 seconds, or Fibrinogen greater than or equal to 100 mg/dl indicate adequate procoagulant activity for hemostasis in patients without underlying bleeding disorders. INR 2.9(H) 0.9 - 1.1 CERNER MILLENNIUM Blood specimen (specimen) 11/27/2010 2:23 PM EDT 11/27/2010 2:29 PM EDT Luz Jerry MD HEMATOLOGY ORDERABLE S [employer] documented in this encounter Visit Diagnoses Diagnosis Anticoagulant long-term use Encounter for long-term (current) use of anticoagulants documented in this encounter Care Teams Clinical Trial Leader Relationship Specialty Start Date End Date Shasta Dixon MD [facility] [address] [facility] [address] PCP - General 08/07/10 01/18/12 documented as of this encounter
--- OUTSIDE RECORDS SUMMARY | 2023-11-04 15:22 | XMS_ITS | Encounter Summary ---
[place] [address] Care Team Providers Care Appraiser Personal Property Name Role Phone Shasta Dixon MD Primary Care Provider [phone]- [phone] Reason for Visit * Reason Onset Date Comments Anticoagulation 09/19/2010 INR Encounter Details Date Type Department Care Team (Late st Contact Info) Description 09/19/2010 Telephone [place] [address] Shasta Dixon MD [facility] [address] [place] [address] Anticoagulation (INR) Social History Tobacco Use Types Packs/Day Years Used Date Smoking Tobacco: Never Assessed Sex and Gender Information Value Date Recorded Sex Assigned at Female 05/01/2021 10:41 AM EST Gender Identity Female 05/01/2021 10:41 AM EST Sexual Orientation Straight 05/01/2021 10 :41 AM EST documented as of this encounter Miscellaneous Notes * Telephone Encounter - Estelle Clarke - 09/19/2010 3:41 PM EDT INR [facility] documented in this encounter Plan of Treatment Upcoming Encounters Date Type Department Care Team (Late st Contact Info) Description 11/11/2023 3:00 AM EDT Anti-Coag Telephone Visit [facility] Centralized [place] [address] documented as of this encounter Visit Diagnoses Not on filedocumented in this encounter Care Teams Appraiser Personal Property Relationship Specialty Start Date End Date Shasta Dixon MD [facility] [address] [place] [address] PCP - General 08/07/10 01/18/12 documented as of this encounter
--- OUTSIDE RECORDS SUMMARY | 2023-11-04 15:22 | XMS_ITS | Encounter Summary ---
[place] [address] Care Team Providers Care Cafeteria Attendant Name Role Phone Shasta Dixon MD Primary Care Provider +1- [phone] Reason for Visit * Reason Onset Date Comments Medication Refill 10/08/2010 Encounter Details Date Type Department Care Team (Late st Contact Info) Description 10/08/2010 Refill [place] [phone] Shanelle Lozada MD [address] [place] [address] [place] [address] Lupus Social History Tobacco Use Types Packs/Day [...] Telephone Visit [facility] [place] [phone] documented as of this encounter Visit Diagnoses Diagnosis Lupus Systemic lupus erythematosus documented in this encounter Care Teams Cafeteria Attendant Relationship Specialty Start Date End Date Shasta Dixon MD [facility] [address] [place] [address] PCP - General 08/07/10 01/18/12 documented as of this encounter
--- OUTSIDE RECORDS SUMMARY | 2023-11-04 15:22 | XMS_ITS | Encounter Summary ---
[place] [address] Care Team Providers Care Hydro Station Operator Name Role Phone Hawk Phelan APRN Primary Care Provider [phone] Reason for Visit * Reason Onset Date Comments Other 06/23/2012 ? appointment Encounter Details Date Type Department Care Team (Late st Contact Info) Description 06/23/2012 Telephone [place] [address] Juventino Grajeda RN Other (? appointment) Social History Tobacco Use Types Packs/Day Years [...] Telephone Encounter - Juventino Grajeda RN - 06/24/2012 2:43 PM EDT I spoke with Cecilia and she still is feeling the same way. I asked her if she stopped Prednisone, and she did. She took Amoxicillin 2 grams this morning before going to the dentist. She states that she had a filling done this morning and she was not put on any antibiotics on a daily basis by Dr. Flannery. She is set up for extractions on 07/16/[address] Flannery. I followed up with Dr. Flannery directly and she states that Cecilia does have infected teeth that she has been delaying having taken care of and it is not unreasonable to put her on PenVK for a week and she will call this in to her pharmacy. Dr. Flannery will be following up with extractions in her office and with Oral Surgeons over the next couple ofmonths. I called Cecilia to let her know about antibiotics and to make sure she keeps appointments for extractions. I asked Cecilia to monitor her temperature and to call her PCP should she develop a temperature greater than 101. Cecilia has questions about starting Rituxan and I asked her to make sure that she had her extractions done and she was clear from infection before she proceeded with a plan for Rituxan. I will send a message to Dr. Lozada in regards to this encounter for her recommendations. * Telephone Encounter - Juventino Grajeda RN - 06/24/2012 2:[address] Flannery # [phone] * Telephone Encounter - Juventino Grajeda RN - 06/23/2012 4:09 PM EDT I was asked to evaluate a message from this patient to Dr. Lozada by clerical secretary Liza Madden. Unable todetermine what patient is asking for. I called Cecilia and she states that she is having a flare, I asked her to describe to me what is happening and she states that she is extremely tired and has bodyaches everywhere. When asked, she states that she has been running fevers up to 101.2 and having chills, she thinks temperature is down now. She states that her PCP has started her on Prednisone 10 mg daily for a few days and she does not see an improvement. We talked about her dental extractions that have not been done yet. She states that she has a lot of pain in her mouth on the left side upper and lower with broken off teeth reported. I am concerned that she has an infection in her mouth and possibly systemic with her other symptoms and fever. I called her dental office and talked with Dinora and she spoke with Dr. Flannery and he will see Cecilia tomorrow at 8:45 to evaluate, she states that Cecilia actually has 6 teeth that they have recommended for extraction back in February of 2012. I called Cecilia and asked her to make sure she follows up with Dr. Flannery at 8:45 tomorrow to be evaluated. Message to Dr. Lozada for her recommendations. I spoke with Dr. Lozada and she would like Cecilia to stop Prednisone and take her Prescribed dose of Amoxicillin that she usually takes before dentist. She should go to her local ER if she has another fever or things progress. [facility] and asked her to return my call to confirm that she received. She has not called back yet. documented in this encounter Plan of Treatment Upcoming Encounters Date Type Department Care Team (Late st Contact Info) Description 11/11/2023 3:00 AM EDT Anti-[place] [address] documented as of this encounter Visit Diagnoses Not on filedocumented in this encounter Care Teams Hydro Station Operator Relationship Specialty Start Date End Date Hawk Phelan APRN PCP - General 01/19/12 01/19/13 documented as of this encounter
--- OUTSIDE RECORDS SUMMARY | 2023-11-04 15:22 | XMS_ITS | Encounter Summary ---
[place] [address] Care Team Providers Care Geodetic Computator Name Role Phone Shasta Dixon MD Primary Care Provider +1- [phone] Reason for Visit * Reason Onset Date Comments Medication Refill 11/11/2010 Encounter Details Date Type Department Care Team (Late st Contact Info) Description 11/11/2010 Refill [place] [address] Shanelle Lozada MD [address] [place] [address] [place] [address] Lupus (Primary Dx) Social History Tobacco Use [...] Anti-Coag Telephone Visit [facility] Centralized [place] [address] documented as of this encounter Visit Diagnoses Diagnosis Lupus- Primary Systemic lupus erythematosus documented in this encounter Care Teams Geodetic Computator Relationship Specialty Start Date End Date Shasta Dixon MD [facility] [address] [place] [address] PCP - General 08/07/10 01/18/12 documented as of this encounter
--- OUTSIDE RECORDS SUMMARY | 2023-11-04 15:22 | XMS_ITS | Encounter Summary ---
[place] [address] Care Team Providers Care Rn Neurosurgical Name Role Phone Shasta Dixon MD Primary Care Provider +1- [phone] Reason for Visit * Reason Onset Date Comments Anticoagulation 11/18/2010 INR Encounter Details Date Type Department Care Team (Late st Contact Info) Description 11/18/2010 Telephone [place] [address] Shasta Dixon MD [facility] [address] [place] [address] Anticoagulation (INR) Social History Tobacco Use Types [...] * Telephone Encounter - Kalli Lino - 11/18/2010 3:53 PM EDT INR 2.5 [facility] documented in this encounter Plan of Treatment Upcoming Encounters Date Type Department Care Team (Late st Contact Info) Description 11/11/2023 3:00 AM EDT Anti-Coag Telephone Visit [facility] Centralized [place] [address] documented as of this encounter Visit Diagnoses Not on filedocumented in this encounter Care Teams Rn Neurosurgical Relationship Specialty Start Date End Date Shasta Dixon MD [facility] [address] [place] [address] PCP - General 08/07/10 01/18/12 documented as of this encounter
--- OUTSIDE RECORDS SUMMARY | 2023-11-04 15:22 | XMS_ITS | Encounter Summary ---
[place] [address] Care Team Providers Care Slackline Operator Name Role Phone Shasta Dixon MD Primary Care Provider [phone]- [phone] Encounter Details Date Type Department Care Team (Late st Contact Info) Description 08/27/2010 Anti-Coag Telephone [place] [address] Janel Leo RN Social History Tobacco Use Types Packs/Day Years Used Date Smoking Tobacco: Never Assessed Sex and Gender Information Value Date Recorded Sex Assigned at Female 05/01/2021 10:41 AM EST Gender Identity Female 05/01/2021 10:41 AM EST Sexual Orientation Straight 05/01/2021 10 :41 AM EST documented as of this encounter Patient Instructions * Patient Instructions* Janel Leo, PAIGE - 08/27/2010 3:03 PM EDT Your INR result today is: [...] # Mg per day 7.5mg 7.5mg 7.5mg 7.5mg 7.5mg 7.5mg 7.5mg Number of Pills 3 3 3 3 3 3 3 Your next INR is scheduled for: 2 weeks 09/10 [facility] [phone] documented in this encounter Progress Notes * Janel Leo RN - 08/27/2010 2:48 PM EDT Anticoagulation Telephone Note Indication: Antiphospholipid antibody, Hx CVA, Dilated cardiomyopathy Duration of treatment: Lifelong with annual review Range: 2.0-3.5 INR : 2.4 Drawn by: Rudy Monitored by: JIE Next INR Due: 2 weeks 09/10 Left message on Pt cell # [phone] Home phone [phone] Was out of service Warfarin dose : Increased Decreased x Maintained Comment Did not speak with patient to ask following questions: Bleeding: Epistaxis Black tarry stools Gingival bleeding [...] Diarrhea/Constipation > 48 hours: Yes No Comment Joint pain Dietary Changes: Yes No Comment: Have you increased or decreased alcohol consumption recently? Yes No Comment: Have you significantly altered your level of activity over the past few weeks? Yes No Comment Upcoming Invasive Procedures Planned? Yes No Comment: Travel Plan: Yes, travel precautions reviewed. No Comment: Patient understands and agrees with plan of care Did not speak with pt directly left message cell phone # documented in this encounter Plan of Treatment Upcoming Encounters Date Type Department Care Team (Late st Contact Info) Description 11/11/2023 3:00 AM EDT Anti-Coag Telephone Visit [facility] [place] [address] documented as of this encounter Procedures Procedure Name Priority Date/Time Associated Diagnosis Comments PROTHROMBIN TIME Routine 08/27/2010 documented in this encounter Results * (ABNORMAL) Prothrombin Time (08/27/2010) INR 2.4(A) 0.9 - 1.1 EXTERNAL LAB Blood specimen (specimen) Historical Provider HEMATOLOGY [facility]A [facility] EX[facility] documented in this encounter Visit Diagnoses Not on filedocumented in this encounter Care Teams Slackline Operator Relationship Specialty Start Date End Date Shasta Dixon MD [facility] [address] [place] [address] PCP - General 08/07/10 01/18/12 documented as of this encounter
--- OUTSIDE RECORDS SUMMARY | 2023-11-04 15:22 | XMS_ITS | Encounter Summary ---
Author Organization [facility] [place] [address] Care Team Providers Care Fitter Type Bar And Segment Name Role Phone Shasta Dixon MD Primary Care Provider +1- [phone] Encounter Details Date Type Department Care Team (Latest Contact Info) Description 11/18/2010 10:27 AM EDT - 11/18/2010 11:59 PM EDT Hospital En[place] [address] Min, Luz Cid MD [facility] GENER[facility] [place] [address] Anticoagulant long-term use Discharge Disposition: Home Social [...] 1 Tablet(s), PO, Once daily 06/05/2010 OXYcodone (ROXICODONE) 5 mg immediate release tablet Take 5 mg by mouth every 4 hours as needed. 11/27/2010 OXYcodone 5 mg capsuleIndications:Lupus Take 1 capsule by mouth 2 times daily. 60 capsule 0 11/11/2010 11/27/2010 pantoprazole (PROTONIX) 40 mg tablet Take 1 tablet by mouth daily. 90 tablet 3 11/11/2010 05/18/2017 lisinopril (PRINIVIL;ZESTRIL) 10 mg tabletIndications:Other primary cardiomyopathies,longterm (current) use of anticoagulants Take 1 tablet by mouth daily. 90 tablet 3 10/21/2010 01/30/2011 metoprolol succinate (TOPROL XL) 50 mg 24 hr tabletIndications:Other primary cardiomyopathies,medical terminologist (current) use of anticoagulants Take 1 tablet by mouth daily. 90 tablet 3 10/21/2010 01/30/2011 simvastatin (ZOCOR) 80 mg tabletIndications:Other primary cardiomyopathies,medical terminologist (current) use of anticoagulants Take 1 tablet by mouth daily. 90 tablet 3 10/21/2010 01/30/2011 warfarin (COUMADIN) 2.5 mg tabletIndications:Other primary cardiomyopathies,medical terminologist (current) use of anticoagulants Take 1 tablet [...] Visit [facility] Centralized [place] [address] documented as of this encounter Procedures Procedure Name Priority Date/Time Associated Diagnosis Comments PROTHROMBIN TIME STAT 11/18/2010 10:3 3 AM EDT Anticoagulant long-term use documented in this encounter Results * (ABNORMAL) Prothrombin Time (11/18/2010 10:33 AM EDT) PT 26.5(H) 12.3 - 14.7 sec CERNER MILLENNIUM Comment: [facility] Transfusion Committee Guidelines: INR less than 2.0, PTT less than OR equal to 43.5 seconds, or Fibrinogen greater than or equal to 100 mg/dl indicate adequate procoagulant activity for hemostasis in patients without underlying bleeding disorders. INR 2.5(H) 0.9 - 1.1 CERNER MILLENNIUM Blood specimen (specimen) 11/18/2010 10:33 AM EDT 11/18/2010 10:39 AM EDT Luz Jerry MD HEMATOLOGY ORDERABLE S [employer] documented in this encounter Visit Diagnoses Diagnosis Anticoagulant long-term use Encounter for long-term (current) use of anticoagulants documented in this encounter Care Teams Fitter Type Bar And Segment Relationship Specialty Start Date End Date Shasta Dixon MD [facility] [address] [place] [address] PCP - General 08/07/10 01/18/12 documented as of this encounter
--- OUTSIDE RECORDS SUMMARY | 2023-11-04 15:22 | XMS_ITS | Encounter Summary ---
[place] [address] Care Team Providers Care Real Estate Instructor Name Role Phone Shasta Dixon MD Primary Care Provider +1- [phone] Encounter Details Date Type Department Care Team (Late st Contact Info) Description 12/20/2010 Anti-Coag Telephone [place] [address] Lexy Bailey [facility] [address] Social History Tobacco Use Types Packs/Day Years [...] * Patient Instructions* Lexy Flores APRN - 12/20/2010 11:17 AM EDT Your INR result today is: 2.7 ([facility]) Therapeutic Range 2.0-3.5 Please take your [...] 1/2 Your next INR is scheduled for: Jan 17 [facility] Anticoagulation Clinic [phone] documented in this encounter Progress Notes * Lexy Flores APRN - 12/20/2010 11:17 AM EDT Anticoagulation Telephone Note Indication: Antiphospholipid antibody, Hx CVA, Dilated cardiomyopathy Duration of treatment: Lifelong with annual review Range: 2.0-3.5 INR : 2.7 Drawn by: [facility] Monitored by: JIE Next INR Due: 01/17/11 Patient Contact Preference: Message left on answering machine E-Mail/fax x Spoke with patient / family member: Comment: SisterLarissa Warfarin dose : Increased Decreased x Maintained [...] Visit [facility] [place] [address] documented as of this encounter Visit Diagnoses Not on filedocumented in this encounter Care Teams Real Estate Instructor Relationship Specialty Start Date End Date Shasta Dixon MD [facility] [address] [place] [address] PCP - General 08/07/10 01/18/12 documented as of this encounter
--- OUTSIDE RECORDS SUMMARY | 2023-11-04 15:22 | XMS_ITS | Encounter Summary ---
[place] [address] Care Team Providers Care Harvest Manager Name Role Phone Hawk Phelan APRN Primary Care Provider [phone] Encounter Details Date Type Department Care Team (Late st Contact Info) Description 04/01/2012 9:00 AM EST - 04/01/2012 10:00 AM EST Surgery Per Diem [place] [phone] Neftali Renner MD [facility] [place] [address] CARDIAC CATHETERIZATION Social History Tobacco Use Types [...] Sign Reading Time Taken Comments Blood Pressure 103/67 04/01/2012 7:52 AM EST Pulse 67 04/01/2012 7:52 AM EST Temperature 36.7 ??C (98.1 ??F) 04/01/2012 7:52 AM ES T Respiratory Rate 19 04/01/2012 7:52 AM EST Oxygen Saturation 98% 04/01/2012 7:52 AM EST Inhaled Oxygen Concentration - - [...] by your doctor, do not take any ixlt-uvy-ijoutje medicines or herbal preparations without first discussing this with your doctor or pharmacist. There is the possibility of side effect and interactions when these are combined. Follow up Care Who to Call with Questions or Problems If there are any questions or problems that you think might be related to your cardiac cath or angioplasty, contact the answering service telephone operator labor conciliator by calling [facility] at . * Patient Instructions* Neftali [...] lisinopril (PRINIVIL;ZESTRIL) 10 mg tabletIndications:Oth er primary cardiomyopathies,intermediate accountant (current) use of anticoagulants Take 1 tablet by mouth daily. 90 tablet 3 01/30/2011 01/20/2013 escitalopram (LEXAPRO) 20 mg tabletIndications:[facility] us Take 1 tablet by mouth daily. [...] Pre-Procedural H&P Patient Name: Cecilia Dumont : [id number] y.o. MR#: [id number] Chief Complaint: chest pain and FATIMA Planned [...] reported after flu-like illness 2003 2004, NICM, [facility] neg for occlusive dis 2008, nl EF=65 [...] by your doctor, do not take any ovny-nvd-nqfnlih medicines or herbal preparations without first discussing this with your doctor or pharmacist. There is the possibility of side effect and interactions when these are combined. Follow up Care Who to Call with Questions or Problems If there are any questions or problems that you think might be related to your cardiac cath or angioplasty, contact the answering service telephone operator labor conciliator by calling [facility] at . Provider Contact Information: NEFTALI RENNER MD [phone] Discharge References/Attachments: Discharge References/Attachments None Signed: NEFTALI RENNER MD DATE: 04/01/12 * Miscellaneous - Provider, Scanning - 04/01/2012 10:05 AM EST documented in this encounter Plan of Treatment Upcoming Encounters Date Type Department Care Team (Late st Contact Info) Description 11/11/2023 3:00 AM EDT Anti-Coag Telephone Visit [facility] [place] [address] documented as of this encounter Procedures Procedure [...] (04/01/2012 11:10 AM EST) POC pH 7.28(Criti mayr) 7.35 - 7.45 CERNER MILLENNIUM Comment:Criticals OK [...] AM EST Neftali Renner MD CHEMISTRY ORDERABLES [facility] * Cardiac Catheterization (04/01/2012 10:37 AM EST) Anatomical Region Laterality Modality Other Neftali Renner MD CARDIAC CATH ORDERAB LES * Prothrombin Time (04/01/2012 7:35 AM EST) PT 14.0 11.9 - 14.7 sec CERNER MILLENNIUM Comment: [facility] Transfusion Committee Guidelines: INR less than [...] VARELA documented in this encounter Visit Diagnoses Not [...] Given 04/01/2012 9:20 AM EST 25 mg fentaNYL 50mcg/mL injection ONCE PRN, Starting on Yaritza 04/01/12 at 0953, Until Yaritza 04/01/12 at 1041, Pain, Cath (Intra-Procedure), Routine Given 04/01/2012 9:53 AM EST 50 mcg iohexol (OMNIPAQUE) 350 mg iodine/mL injection ONCE PRN, Starting on Yaritza 04/01/12 at 1033, Until Yaritza 04/01/12 at 1151, Per Protocol, Cath (Intra-Procedure), Routine Given 04/01/2012 10:33 AM EST 110 mLs lidocaine (XYLOCAINE) 10 mg/mL (1 %) injection ONCE PRN, Starting on Yaritza 04/01/12 at 0952, Until Yaritza 04/01/12 at 1151, Cath (Intra-Procedure), Routine Given 04/01/2012 9:52 AM EST 12 mg midazolam (VERSED) injection ONCE PRN, Starting on Yaritza 04/01/12 at 0954, Until Yaritza 04/01/12 at 1041, Sleep, Cath (Intra-Procedure), Routine Given 04/01/2012 9:54 AM EST 1 mg sodium chloride 0.9% infusion CONTINUOUS PRN, Starting on Yaritza 04/01/12 at 1032, Until Yaritza 04/01/12 at 1854, Cath (Intra-Procedure) New Bag 04/01/2012 10:32 AM EST 1,700 L sodium chloride 0.9% infusion 100 mL/hr, Intravenous, [...] 0815 (Due)0920 (Give n - Provider: Melissa Adames RN) Continuous Medication Order 03/30/2012 03/31/2012 04/01/2012 sodium [...] MD) documented in this encounter Care Teams Harvest Manager Relationship Specialty Start Date End Date Hawk Phelan, TRANSPLANT NURSE PCP - General 01/19/12 01/19/13 documented as of this encounter
--- OUTSIDE RECORDS SUMMARY | 2023-11-04 15:22 | XMS_ITS | Encounter Summary ---
[place] [address] Care Team Providers Care Medical Operations Supervisor Name Role Phone Shasta Dixon MD Primary Care Provider +1- [phone] Reason for Visit * Reason Comments Anticoagulation - Detention Encounter Details Date Type Department Care Team (Late st Contact Info) Description 10/21/2010 3:40 PM EDT Clinical Support [place] [address] NURSE, ANTICOAGULATION [facility] CREATED BY INTERFACE Discharge Disposition: Home Social History Tobacco Use [...] this encounter Patient Instructions * Patient Instructions* Jailene Darling, JUANA - 10/21/2010 2:34 PM EDT Your INR result today is: 2.7 ([facility] Lab) Therapeutic Range 2.0-3.5 [...] 1/2 Your next INR is scheduled for: 4 weeks [facility] [phone] documented in this encounter Progress Notes * Jailene Darling LPN - 10/21/2010 2:34 PM EDT Subjective: Patient ID: Cecilia Dumont is a 40 y.o. female. HPI Review of Systems Objective: Physical Exam Assessment and Plan: No problem-specific visit notes found for this encounter. * Jailene Darling LPN - 10/21/2010 2:31 PM EDT Anticoagulation Telephone Note Indication: Antiphospholipid antibody, Hx CVA, Dilated cardiomyopathy Duration of treatment: Lifelong with annual review Range: 2.0-3.5 INR : 2.7 Drawn by: [facility] Monitored by: [facility] Next INR Due: One month Pt informs me she has relocated to [facility] and will come to [facility] for next INR check Warfarin dose : [...] Visit [facility] [place] [phone] documented as of this encounter Procedures Procedure Name Priority Date/Time Associated Diagnosis Comments POCT INR Routine 10/21/2010 2:30 PM EDT documented in this encounter Results * (ABNORMAL) POCT INR (10/21/2010 2:30 PM EDT) POC INR 2.7(A) 0.9 - 1.1 Jailene Darling LPN POINT OF CARE TEST O RDERABLES documented in this encounter Visit Diagnoses Diagnosis CREATED BY INTERFACE Used by the Incoming Problem List or Incoming Clinical Observations Interface as a dummy diagnosis to file in case the diagnosis designated on the incoming message is not mapped in Dr. Jerry's Smooth Move. documented in this encounter Care Teams Medical Operations Supervisor Relationship Specialty Start Date End Date Shasta Dixon MD [facility] [address] [place] [address] PCP - General 08/07/10 01/18/12 documented as of this encounter
--- OUTSIDE RECORDS SUMMARY | 2023-11-04 15:22 | XMS_ITS | Encounter Summary ---
[place] [address] Care Team Providers Care Vice President Of Nursing Name Role Phone Shasta Dixon MD Primary Care Provider +1- [phone] Reason for Visit * Reason Onset Date Comments Medication Refill 01/30/2011 Encounter Details Date Type Department Care Team (Late st Contact Info) Description 01/30/2011 Refill [place] [phone] Shanelle Lozada MD [address] [place] [address] [place] [address] Other primary cardiomyopathies; Encounter for long-term (current) use of anticoagulants; Lupus Social History Tobacco Use Types Packs/Day [...] Visit [facility] [place] [address] documented as of this encounter Visit Diagnoses Diagnosis Other primary cardiomyopathies 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
--- OUTSIDE RECORDS SUMMARY | 2023-11-04 15:22 | XMS_ITS | Encounter Summary ---
[place] [address] Care Team Providers Care Booker Name Role Phone Shasta Dixon MD Primary Care Provider +1- [phone] Reason for Visit * Reason Onset Date Comments Anticoagulation 08/27/2010 INR Encounter Details Date Type Department Care Team (Late st Contact Info) Description 08/27/2010 Telephone [place] [address] Shasta Dixon MD [facility] [address] [place] [address] Anticoagulation (INR) Social History Tobacco Use Types Packs/Day Years Used Date Smoking Tobacco: Never Assessed Sex and Gender Information Value Date Recorded Sex Assigned at Female 05/01/2021 10:41 AM EST Gender Identity Female 05/01/2021 10:41 AM EST Sexual Orientation Straight 05/01/2021 10 :41 AM EST documented as of this encounter Miscellaneous Notes * Telephone Encounter - Estelle Clarke - 08/27/2010 2:34 PM EDT INR 2.40 [facility] documented in this encounter Plan of Treatment Upcoming Encounters Date Type Department Care Team (Late st Contact Info) Description 11/11/2023 3:00 AM EDT Anti-Coag Telephone Visit [facility] [place] [address] documented as of this encounter Visit Diagnoses Not on filedocumented in this encounter Care Teams Booker Relationship Specialty Start Date End Date Shasta Dixon MD [facility] [address] [place] [address] PCP - General 08/07/10 01/18/12 documented as of this encounter
--- OUTSIDE RECORDS SUMMARY | 2023-11-04 15:23 | XMS_ITS | Encounter Summary ---
[place] [address] Care Team Providers Care Special Needs Babysitter Name Role Phone Shasta Dixon MD Primary Care Provider +1- [phone] Reason for Visit * Reason Onset Date Comments Anticoagulation 08/14/2010 INR Encounter Details Date Type Department Care Team (Late st Contact Info) Description 08/14/2010 Telephone [place] [address] Shasta Dixon MD [facility] [address] [place] [address] Anticoagulation (INR) Social History Tobacco Use Types Packs/Day Years Used Date Smoking Tobacco: Never Assessed Sex and Gender Information Value Date Recorded Sex Assigned at Female 05/01/2021 10:41 AM EST Gender Identity Female 05/01/2021 10:41 AM EST Sexual Orientation Straight 05/01/2021 10 :41 AM EST documented as of this encounter Miscellaneous Notes * Telephone Encounter - Estelle Clarke - 08/14/2010 5:09 PM EDT INR 1.63 -after clinic hours 08/14 [facility] Lab documented in this encounter Plan of Treatment Upcoming Encounters Date Type Department Care Team (Late st Contact Info) Description 11/11/2023 3:00 AM EDT Anti-Coag Telephone Visit [facility] [place] [address] documented as of this encounter Visit Diagnoses Not on filedocumented in this encounter Care Teams Special Needs Babysitter Relationship Specialty Start Date End Date Shasta Dixon MD [facility] [address] [place] [address] PCP - General 08/07/10 01/18/12 documented as of this encounter
--- OUTSIDE RECORDS SUMMARY | 2023-11-04 15:23 | XMS_ITS | Encounter Summary ---
[place] [address] Care Team Providers Care Cell Maker Name Role Phone Briana Timmons APRN Primary Care Provider [phone] Encounter Details Date Type Department Care Team (Late st Contact Info) Description 01/13/2006 Orders Only Orthopaedics at [facility] [address] [place] [address] Elmer Acevedo MD [address] [place] [address] Social History Tobacco Use Types Packs/Day Years [...] Visit [facility] [place] [place] [address] documented as of this encounter Procedures Procedure Name Priority Date/Time Associated Diagnosis Comments SURGICAL PATHOLOGY REPORT Routine 01/13/2006 9:32 AM EDT documented in this encounter Results * Surgical Pathology Report (01/13/2006 9:32 AM EDT) Surgical Pathology Report [id number] ? [facility]; A The signing pathologist has (i) examined the relevant preparation(s) for the specimen(s) and (ii) rendered or confirmed the diagnosis(es). . ?Pathology Surgical Pathology Final Report Clinical Information Specimen Submitted: A - Bone from bilateral total knee arthroplasty. rt & lt. knees. Clinical History: Osteonecrosis bilateral knees. Gross Description Labeled/Fixative: ? Bone from bilateral knees, fresh. Quantity/Size: ?Multiple, 14.0 x 14.0 x 9.0 cm in aggregate. Tissue Description: ?? Fragments of yellow-white, hard, irregular bone, ?cartilage and soft tissue. ??The articular surfaces are sánchez and smooth. ??The cut surfaces of both tibial plateaus are chalky, yellow with surrounding hyperemia. ??The remaining cut surfaces are yellow, trabecular bone. ??Eburnation: ? Absent. ??Osteophytes: ?Absent. Sections/Processi ng: ??(1) soft tissues; (2-3) bone. ??(R3, decal) ??aje/SNS Microscopic Description Slides reviewed, microscopic description not recorded. Diagnosis Bone (right and left knees, bilateral), total knee arthroplasties: ?? Moderate focal osteoarthritis of articular cartilage (with deep ?? fissures). ?? Subchondral osteonecrosis. ?? Congested synovium. CR-0 01/16/06 [facility] 01/16/06 Verified by: ? Shahrzad Paris, DO ?Pathologist ?(Electronic Signature) The attending pathologist whose signature appears on this report has reviewed all diagnostic slides and has edited the gross and/or microscopic portion of the report in rendering the final pathologic diagnosis. [facility] 01/13/2006 9:32 AM EDT Elmer Acevedo MD PATHOLOGY/CYTOLOGY O [facility] Performing Organization Address City/State/[facility] Co de Phone Number [facility] documented in this encounter Visit Diagnoses Not on filedocumented in this encounter Care Teams Cell Maker Relationship Specialty Start Date End Date Briana Timmons, SURGICAL DRESSING MA[place] [address] [place] [address] PCP - General Family Medicine 08/09/21 documented as of this encounter
--- OUTSIDE RECORDS SUMMARY | 2023-11-04 15:23 | XMS_ITS | Encounter Summary ---
[place] [address] Care Team Providers Care Aviation Consultant Name Role Phone Nohelia Puentes MD Primary Care Provider [phone]- [phone] Encounter Details Date Type Department Care Team (Late st Contact Info) Description 07/31/2010 Anti-Coag Telephone [place] [address] Lexy Bailey THERAPEUTIC DIETITIAN [facility] DEPT [place] [address] Social History Tobacco Use Types Packs/Day Years Used Date Smoking Tobacco: Never Assessed Sex and Gender Information Value Date Recorded Sex Assigned at Female 05/01/2021 10:41 AM EST Gender Identity Female 05/01/2021 10:41 AM EST Sexual Orientation Straight 05/01/2021 10 :41 AM EST documented as of this encounter Progress Notes * Lexy Flores APRN - 07/31/2010 5:12 PM EDT Notified by Nancy Chowdhury RN of subtherpeutic INR, 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 Will use lovenox to prevent VTE & CVA at 1mg/kg every 12 hours until INR therapeutic. Subjective: Patient ID: Cecilia Dumont is a 40 y.o. female. HPI Review of Systems Objective: Physical Exam Assessment and Plan: No problem-specific visit notes found for this encounter. documented in this encounter Plan of Treatment Upcoming Encounters Date Type Department Care Team (Late st Contact Info) Description 11/11/2023 3:00 AM EDT Anti-Coag Telephone Visit [facility] [place] [address] documented as of this encounter Visit Diagnoses Not on filedocumented in this encounter Care Teams Aviation Consultant Relationship Specialty Start Date End Date Nohelia Puentes MD [facility] GENERAL [place] [address] PCP - General 02/26/10 08/06/10 documented as of this encounter
--- OUTSIDE RECORDS SUMMARY | 2023-11-04 15:23 | XMS_ITS | Encounter Summary ---
[place] [address] Care Team Providers Care Police And Fire Dispatcher Name Role Phone Nohelia Puentes MD Primary Care Provider +1- [phone] Encounter Details Date Type Department Care Team (Late st Contact Info) Description 03/05/2010 [place] [address] Serge Patel MD [address] [place] [address] Social History Tobacco Use Types Packs/Day Years [...] Visit [facility] [place] [address] documented as of this encounter Procedures Procedure Name Priority Date/Time Associated Diagnosis Comments POCT INR Routine 03/05/2010 11:00 AM EST documented in this encounter Results * POCT INR (03/05/2010 11:00 AM EST) POC INR 1.9 CERNER JANIENNIUM Comment: Reference range for INR is 2.5 - 3.5 for patients with mechanical heart valves, 2.0 - 3.0 for all others. Blood specimen (specimen) 03/05/2010 11:00 AM EST 03/06/2010 5:32 PM EST Serge Patel MD POINT OF CARE TEST O RDERABLES [facility] documented in this encounter Visit Diagnoses Not on filedocumented in this encounter Care Teams Police And Fire Dispatcher Relationship Specialty Start Date End Date Nohelia Puentes MD [facility] [address] [address] PCP - General 02/26/10 08/06/10 documented as of this encounter
--- OUTSIDE RECORDS SUMMARY | 2023-11-04 15:23 | XMS_ITS | Encounter Summary ---
[place] [address] Care Team Providers Care Advertising Operations Manager Name Role Phone Shasta Dixon MD Primary Care Provider [phone]- [phone] Encounter Details Date Type Department Care Team (Late st Contact Info) Description 08/19/2010 Anti-Coag Telephone [place] [address] Janel Leo RN Social History Tobacco Use Types Packs/Day Years Used Date Smoking Tobacco: Never Assessed Sex and Gender Information Value Date Recorded Sex Assigned at Female 05/01/2021 10:41 AM EST Gender Identity Female 05/01/2021 10:41 AM EST Sexual Orientation Straight 05/01/2021 10 :41 AM EST documented as of this encounter Patient Instructions * Patient Instructions* Janel Leo, PAIGE - 08/19/2010 3:45 PM EDT Your INR result today is: 2.47 [facility] Therapeutic Range 2.0-3.5 Please take [...] 3 Your next INR is scheduled for: 1 week 08/26 [facility] Anticoagulation Clinic [phone] documented in this encounter Progress Notes * Janel Leo RN - 08/19/2010 3:43 PM EDT Anticoagulation Telephone Note Indication: Antiphospholipid antibody, Hx CVA, Dilated cardiomyopathy Duration of treatment: Lifelong with annual review Range: 2.0-3.5 INR : 2.47 Drawn by: Rudy Monitored by: JIE Next INR Due: 1 08/26 Joints are hurting due to weather Warfarin dose : Increased Decreased x Maintained Comment Dosing pattern evened out Bleeding: Epistaxis Black tarry stools Gingival bleeding [...] Illness/ Cold SX/ Diarrhea/Constipation > 48 hours: x Yes No Comment Joint pain Dietary Changes: Yes x No Comment: Have [...] Anti-Coag Telephone Visit [facility] [place] [address] documented as of this encounter Procedures Procedure Name Priority Date/Time Associated Diagnosis Comments PROTHROMBIN TIME Routine 08/19/2010 documented in this encounter Results * (ABNORMAL) Prothrombin Time (08/19/2010) INR 2.5(A) 0.9 - 1.1 EXTERNAL LAB Blood specimen (specimen) Historical Provider HEMATOLOGY ORDERA [facility] EXTERNAL [facility] documented in this encounter Visit Diagnoses Not on filedocumented in this encounter Care Teams Advertising Operations Manager Relationship Specialty Start Date End Date Shasta Dixon MD [facility] [address] [place] [address] PCP - General 08/07/10 01/18/12 documented as of this encounter
--- OUTSIDE RECORDS SUMMARY | 2023-11-04 15:23 | XMS_ITS | Encounter Summary ---
[place] [address] Care Team Providers Care Papier Mache' Molder Name Role Phone Nohelia Puentes MD Primary Care Provider +1- [phone] Encounter Details Date Type Department Care Team (Late st Contact Info) Description 03/05/2010 11:00 AM EST Clinical Support [place] [address] Janel Leo, RN Social History Tobacco Use Types Packs/Day [...] 11/11/2023 3:00 AM EDT Anti-[place] [address] documented as of this encounter Visit Diagnoses Not on filedocumented in this encounter Care Teams Papier Mache' Molder Relationship Specialty Start Date End Date Nohelia Puentes MD [facility] GENERAL INTERNAL MEDICINE [place], [place] [id number] PCP - General 02/26/10 08/06/10 documented as of this encounter
--- OUTSIDE RECORDS SUMMARY | 2023-11-04 15:23 | XMS_ITS | Encounter Summary ---
[place] [address] Care Team Providers Care Physical Security Manager Name Role Phone Nohelia Puentes MD Primary Care Provider +1- [phone] Reason for Visit * Reason Comments Anticoagulation Encounter Details Date Type Department Care Team (Late st Contact Info) Description 07/31/2010 Anti-Coag Telephone Visit [place] [address] Nancy Chowdhury, RN Social History [...] Telephone Visit [facility] Centralized [place] [address] documented as of this encounter Visit Diagnoses Not on filedocumented in this encounter Care Teams Physical Security Manager Relationship Specialty Start Date End Date Nohelia Puentes MD [facility] [place] [address] PCP - General 02/26/10 08/06/10 documented as of this encounter
--- OUTSIDE RECORDS SUMMARY | 2023-11-04 15:23 | XMS_ITS | Encounter Summary ---
[place] [address] Care Team Providers Care Sales And Service Agent Name Role Phone Nohelia Puentes MD Primary Care Provider +1- [phone] Encounter Details Date Type Department Care Team (Late st Contact Info) Description 07/31/2010 Orders [place] [address] Lexy Bailey APRN [facility] DEPT [place] [address] DVT (deep venous thrombosis) (Primary Dx) Social History Tobacco Use Types [...] Telephone Visit [facility] Centralized [place] [address] documented as of this encounter Visit Diagnoses Diagnosis DVT (deep venous thrombosis)- Primary Acute venous embolism and thrombosis of unspecified deep vessels of lower extremity documented in this encounter Care Teams Sales And Service Agent Relationship Specialty Start Date End Date Nohelia Puentes MD [facility] GENERAL INTERNAL MEDICINE [place] [id number] PCP - General 02/26/10 08/06/10 documented as of this encounter
--- OUTSIDE RECORDS SUMMARY | 2023-11-04 15:23 | XMS_ITS | Encounter Summary ---
[place] [address] Care Team Providers Care Insole Buffer Name Role Phone Nohelia Puentes MD Primary Care Provider +1- [phone] Encounter Details Date Type Department Care Team (Late st Contact Info) Description 03/06/2010 1:45 PM EST Follow-[place] [phone] Shanelle Lozada MD [address] [place] [address] [place] [address] Discharge Disposition: Home Social History Tobacco Use [...] 11/11/2023 3:00 AM EDT [place] [address] documented as of this encounter Visit Diagnoses Not on filedocumented in this encounter Care Teams Insole Buffer Relationship Specialty Start Date End Date Nohelia Puentes MD [facility] GENERAL [place] [address] PCP - General 02/26/10 08/06/10 documented as of this encounter
--- OUTSIDE RECORDS SUMMARY | 2023-11-04 15:23 | XMS_ITS | Encounter Summary ---
[place] [address] Care Team Providers Care Asl Interpreter Name Role Phone Briana Timmons APRN Primary Care Provider [phone] Encounter Details Date Type Department Care Team (Late st Contact Info) Description 08/07/2004 [place] [phone] Elizabeth Cortes MD OBSTETRICS & GYNECOLOGY Social History Tobacco Use Types Packs/Day Years [...] 11/11/2023 3:00 AM EDT [place] [phone] documented as of this encounter Procedures Procedure Name Priority Date/Time Associated Diagnosis Comments SURGICAL PATHOLOGY REPORT Routine 08/07/2004 6:47 PM EDT documented in this encounter Results * Surgical Pathology Report (08/07/2004 6:47 PM EDT) Surgical Pathology Report [id number] ? Location: The signing pathologist has (i) examined the relevant preparation(s) for the specimen(s) and (ii) rendered or confirmed the diagnosis(es). . ?Pathology Surgical Pathology Final Report Clinical Information Specimen Submitted: A - Endometrial sampling, uterus Clinical History: Abnormal uterine bleeding, lupus Gross Description Labeled/Fixativ e: ? Endometrial sampling, uterus, formalin. Qty/Size/Weight : ?Multiple fragments, collectively, 1.0 x 0.7 x 0.6 cm. ?Torres-pink soft tissue, mucus, and blood clot. Sections/Proces sing: ??(T1) tbb/EJR Microscopic Description Slides reviewed, microscopic description not recorded. Diagnosis Biopsy of endometrium Inactive endometrium with stromal breakdown CR-0 08/09/04 VAM 08/09/04 Verified by: ? Jay Rdz MD ?Pathologist ?(Electronic Signature) The attending pathologist whose signature appears on this report has reviewed all diagnostic slides and has edited the gross and/or microscopic portion of the report in rendering the final pathologic diagnosis. YVETTE VARELA 08/07/2004 6:47 PM EDT Elizabeth Cortes MD PATHOLOGY/CYTOLOGY ORDERABLES YVETTE VARELA documented in this encounter Visit Diagnoses Not on filedocumented in this encounter Care Teams Asl Interpreter Relationship Specialty Start Date End Date Briana Timmons, ASSEMBLER EQUIPMENT [address] [place] [address] PCP - General Family Medicine 08/09/21 documented as of this encounter
--- OUTSIDE RECORDS SUMMARY | 2023-11-04 15:23 | XMS_ITS | Encounter Summary ---
[place] [address] Care Team Providers Care Ice Skating Teacher Name Role Phone Nohelia Puentes MD Primary Care Provider [phone]- [phone] Reason for Visit * Reason Onset Date Comments Other 07/16/2010 lab orders Encounter Details Date Type Department Care Team (Late st Contact Info) Description 07/16/2010 Telephone Cardiology at [address] [phone] Bhavesh Hernadez MD [facility] [place] [address] Other (lab orders) Social History Tobacco Use Types Packs/Day Years Used Date Smoking Tobacco: Never Assessed Sex and Gender Information Value Date Recorded Sex Assigned at Female 05/01/2021 10:41 AM EST Gender Identity Female 05/01/2021 10:41 AM EST Sexual Orientation Straight 05/01/2021 10 :41 AM EST documented as of this encounter Miscellaneous Notes * Telephone Encounter - Nohelia Snyder - 07/16/2010 9:40 AM EDT Please sign attached for upcoming appointment. Thanks documented in this encounter Plan of Treatment Upcoming Encounters Date Type Department Care Team (Late st Contact Info) Description 11/11/2023 3:00 AM EDT Anti-Coag Telephone Visit [facility] Centralized [place] [address] documented as of this encounter Results * (ABNORMAL) Protime-INR (10/21/2010 1:16 PM EDT) PT 29.4(H) 12.3 - 14.7 sec CERNER MILLENNIUM Comment: [facility] Transfusion Committee Guidelines: INR less than 2.0, PTT less than OR equal to 43.5 seconds, or Fibrinogen greater than or equal to 100 mg/dl indicate adequate procoagulant activity for hemostasis in patients without underlying bleeding disorders. INR 2.7(H) 0.9 - 1.1 CERNER MILLENNIUM Blood specimen (specimen) 10/21/2010 1:16 PM EDT 10/21/2010 1:24 PM EDT Bhavesh Hernadez MD HEMATOLOGY ORDERABLE S Performing Organization Address [facility] [place] Co de Phone Number [facility] Tele[facility] * Uric acid (10/21/2010 1:16 PM EDT) Uric Acid 5.1 2.5 - 6.5 mg/dL CERNER MILLENNIUM Blood specimen (specimen) 10/21/2010 1:16 PM EDT 10/21/2010 1:24 PM EDT Bhavesh Hernadez MD CHEMISTRY ORDERABLES Performing Organization Address City/[facility] Co de Phone Number [facility] * (ABNORMAL) Brain natriuretic peptide (10/21/2010 1:16 [...] MD CHEMISTRY ORDERABLES CERNER MILLENNIUM * (ABNORMAL) CBC (with Diff) (10/21/2010 1:16 PM EDT) WBC 6.8 4.0 - 10.0 x10(3)/mcL CERNER MILLENNIUM RBC 3.91(L) 3.93 - 5.22 x10(6)/mcL CERNER MILLENNIUM Hemoglobin 12.5 11.2 - 15.7 gm/dL CERNER MILLENNIUM Hematocrit 36.4 34.0 - 45.0 % CERNER MILLENNIUM MCV 93.1 79.0 - 94.0 fL CERNER MILLENNIUM MCH 32.0 26.6 - 32.2 pg CERNER MILLENNIUM MCHC 34.3 32.0 - 36.5 gm/dL CERNER MILLENNIUM Platelets 232 145 - 370 x10(3)/mcL CERNER MILLENNIUM RDWSD 44.0 35.0 - 46.0 fL CERNER MILLENNIUM RDWCV 12.9 10.9 - 14.4 % CERNER MILLENNIUM MPV 10.5 9.0 - 12.0 fL CERNER MILLENNIUM Blood specimen (specimen) 10/21/2010 1:16 PM EDT 10/21/2010 1:24 PM EDT Bhavesh Hernadez MD HEMATOLOGY ORDERABLE S YVETTE VARELA documented in this encounter Visit Diagnoses Diagnosis Other primary cardiomyopathies terminal manager (current) use of anticoagulants Long-term (current) use of anticoagulants documented in this encounter Care Teams Ice Skating Teacher Relationship Specialty Start Date End Date Nohelia Puentes MD [facility] GENERAL [place] [address] PCP - General 02/26/10 08/06/10 documented as of this encounter
--- OUTSIDE RECORDS SUMMARY | 2023-11-04 15:23 | XMS_ITS | Encounter Summary ---
[place] [address] Care Team Providers Care Peer Support Specialist Name Role Phone Nohelia Puentes MD Primary Care Provider [phone]- [phone] Reason for Referral * Consultation (Routine) - Closed Specialty Diagnoses / Procedures Referred By Edgar warren Referred To Contact Internal Medicine Diagnoses Antiphospholipid syndrome Nohelia Puentes MD [facility] [place] [address] [address] Referral ID Status Reason Start Date Expiration Date V isits Requested Visits Authorized [id number] Closed Assume Subset of Care 07/31/2010 01/27/2011 1 1 Encounter Details Date Type Department Care Team (Late st Contact Info) Description 07/31/2010 Orders [place] [address] Nohelia Puentes MD [facility] GENER[place] [address] Antiphospholipid syndrome (Primary Dx) Social History Tobacco Use Types [...] EDT Anti-Coag Telephone Visit [facility] [place] [address] Scheduled Referrals Name Type Priority Associated Diagnoses Order Schedule REFERRAL TO ANTICOAGULATION MONITORING Outpatient Referral Routine Antiphospholipid syndrome Ordered: 07/31/2010 documented as of this encounter Visit Diagnoses Diagnosis Antiphospholipid syndrome- Primary Primary hypercoagulable state documented in this encounter Care Teams Peer Support Specialist Relationship Specialty Start Date End Date Nohelia Puentes MD [facility] [address] [place] [address] PCP - General 02/26/10 08/06/10 documented as of this encounter
--- OUTSIDE RECORDS SUMMARY | 2023-11-04 15:23 | XMS_ITS | Encounter Summary ---
[place] [address] Care Team Providers Care Diesel Electrician Name Role Phone Nohelia Puentes MD Primary Care Provider +1- [phone] Encounter Details Date Type Department Care Team (Latest Contact Info) Description 07/03/2010 1:00 PM EDT Clinical Support [place] [address] Nancy Chowdhury, certified registered nurse practitioner Disposition: Home Social History Tobacco Use Types [...] Telephone Visit [facility] [place] [address] documented as of this encounter Procedures Procedure Name Priority Date/Time Associated Diagnosis Comments POCT INR Routine 07/03/2010 1:00 PM EDT documented in this encounter Results * POCT INR (07/03/2010 1:00 PM EDT) POC INR 2.8 CERNER JANIENNIUM Comment: Reference range for INR is 2.5 - 3.5 for patients with mechanical heart valves, 2.0 - 3.0 for all others. Blood specimen (specimen) 07/03/2010 1:00 PM EDT 07/05/2010 3:29 PM EDT Nancy Chowdhury RN POINT OF CARE TEST O RDERABLES [facility] documented in this encounter Visit Diagnoses Not on filedocumented in this encounter Care Teams Diesel Electrician Relationship Specialty Start Date End Date Nohelia Puentes MD [facility] GENER[place] [address] PCP - General 02/26/10 08/06/10 documented as of this encounter
--- OUTSIDE RECORDS SUMMARY | 2023-11-04 15:23 | XMS_ITS | Encounter Summary ---
[place] [address] Care Team Providers Care Transverse Abdominal Muscle Nurse Name Role Phone Nohelia Puentes MD Primary Care Provider +1- [phone] Reason for Visit * Reason Comments Anticoagulation Encounter Details Date Type Department Care Team (Latest Contact Info) Description 07/31/2010 Anti-Coag Telephone [place] [phone] Nancy Chowdhury, RN Antiphospholipid syndrome Social History Tobacco Use Types Packs/Day Years Used Date Smoking Tobacco: Never Assessed Sex and Gender Information Value Date Recorded Sex Assigned at Female 05/01/2021 10:41 AM EST Gender Identity Female 05/01/2021 10:41 AM EST Sexual Orientation Straight 05/01/2021 10 :41 AM EST documented as of this encounter Patient Instructions * Patient Instructions* Nancy Chowdhury, RN - 07/31/2010 5:13 PM EDT Your INR result today is: 1.42 Please take your Warfarin, (Coumadin ??), dose [...] visit. Pill size 2.5mg DAY Sun Thu Sat mg 7.5 5 7.5 10 10 5 7.5 Number of Pills 3 2 3 4 4 2 3 Your next INR is scheduled for: August 02. documented in this encounter Progress Notes * Nancy Chowdhury RN - 07/31/2010 5:12 PM EDT Anticoagulation Therapy Nurse Visit Indication: Antiphospholipid antibody, Hx CVA, Dilated cardiomyopathy Duration of treatment: Lifelong with annual review Range: 2.0-3.5 INR : 1.42 Drawn by: Rudy Monitored by: JIE Next INR Due: August 02 Pt is 2 weeks late for INR- I thought I might have missed it. Saefty and compliance issues reviewed. Per Richa Flores, pt to use Lovenox/Enoxaparin 80 mg sc tiwce daily until INR is once in Range. Warfarin dose : x Increased Decreased Maintained Comment Patient presents with no signs of bleeding or bruising or sx of thromboembolic events related to primary diagnosis above. Follow-up for re-evaluation and safety of continuing anticoagulation. Bleeding: Epistaxis Black tarry stools Gingival bleeding [...] EDT Anti-Coag Telephone Visit [facility] [place] [address] documented as of this encounter Procedures Procedure Name Priority Date/Time Associated Diagnosis Comments PROTHROMBIN TIME Routine 07/31/2010 documented in this encounter Results * (ABNORMAL) Prothrombin Time (07/31/2010) INR 1.4(A) 0.9 - 1.1 EXTERNAL LAB Blood specimen (specimen) Historical Provider HEMATOLOGY [facility] documented in this encounter Visit Diagnoses Diagnosis Antiphospholipid syndrome Primary hypercoagulable state documented in this encounter Care Teams Transverse Abdominal Muscle Nurse Relationship Specialty Start Date End Date Nohelia Puentes MD [facility] GENERAL [place] [address] PCP - General 02/26/10 08/06/10 documented as of this encounter
--- OUTSIDE RECORDS SUMMARY | 2023-11-04 15:23 | XMS_ITS | Encounter Summary ---
[place] [address] Care Team Providers Care Ed Physicians Name Role Phone Shasta Dixon MD Primary Care Provider +1- [phone] Reason for Visit * Reason Onset Date Comments Anticoagulation 08/19/2010 INR Encounter Details Date Type Department Care Team (Late st Contact Info) Description 08/19/2010 Telephone [place] [address] Shasta Dixon MD [facility] [address] [place] [address] Anticoagulation (INR) Social History Tobacco Use Types Packs/Day Years Used Date Smoking Tobacco: Never Assessed Sex and Gender Information Value Date Recorded Sex Assigned at Female 05/01/2021 10:41 AM EST Gender Identity Female 05/01/2021 10:41 AM EST Sexual Orientation Straight 05/01/2021 10 :41 AM EST documented as of this encounter Miscellaneous Notes * Telephone Encounter - Estelle Clarke - 08/19/2010 3:16 PM EDT INR 2.47 [facility] documented in this encounter Plan of Treatment Upcoming Encounters Date Type Department Care Team (Late st Contact Info) Description 11/11/2023 3:00 AM EDT Anti-Coag Telephone Visit [facility] [place] [address] documented as of this encounter Visit Diagnoses Not on filedocumented in this encounter Care Teams Ed Physicians Relationship Specialty Start Date End Date Shasta Dixon MD [facility] [address] [place] [address] PCP - General 08/07/10 01/18/12 documented as of this encounter
--- OUTSIDE RECORDS SUMMARY | 2023-11-04 15:23 | XMS_ITS | Encounter Summary ---
[place] [address] Care Team Providers Care Transactional Paralegal Name Role Phone Nohelia Puentes MD Primary Care Provider +1- [phone] Encounter Details Date Type Department Care Team (Late st Contact Info) Description 06/24/2010 Orders Only [place] [address] Nohelia Puentes MD [facility] GENERAL [place] [address] Social History Tobacco Use Types Packs/Day Years [...] Anti-Coag Telephone Visit [facility] [place] [address] documented as of this encounter Procedures Procedure Name Priority Date/Time Associated Diagnosis Comments POINT OF CARE INR OUTSIDE Routine 06/24/2010 1:16 PM EDT documented in this encounter Results * POINT OF CARE INR OUTSIDE (06/24/2010 1:16 PM EDT) POC INR Outside 3.8 CERNER MILLENNIUM Comment: Reference range for INR is 2.5 - 3.5 for patients with mechanical heart valves, 2.0 - 3.0 for all others. POC INR O Loc POC [facility] CERN ER MILLENNIUM Blood specimen (specimen) 06/24/2010 1:16 PM EDT 06/24/2010 2:29 PM EDT Nohelia Puentes MD POINT OF CARE TEST ORDERABLES YVETTE VARELA documented in this encounter Visit Diagnoses Not on filedocumented in this encounter Care Teams Transactional Paralegal Relationship Specialty Start Date End Date Nohelia Puentes MD [facility] GENERAL INTERNAL MEDICINE [place], [place] [address] PCP - General 02/26/10 08/06/10 documented as of this encounter
--- OUTSIDE RECORDS SUMMARY | 2023-11-04 15:23 | XMS_ITS | Encounter Summary ---
[place] [address] Care Team Providers Care Printed Circuit Board Assembly Repairer Name Role Phone Nohelia Puentes MD Primary Care Provider +1- [phone] Reason for Visit * Reason Comments Anticoagulation Encounter Details Date Type Department Care Team (Late st Contact Info) Description 08/02/2010 Anti-Coag Telephone [place] [phone] Yusra Aviles, RN Social History Tobacco Use Types Packs/Day Years Used Date Smoking Tobacco: Never Assessed Sex and Gender Information Value Date Recorded Sex Assigned at Female 05/01/2021 10:41 AM EST Gender Identity Female 05/01/2021 10:41 AM EST Sexual Orientation Straight 05/01/2021 10 :41 AM EST documented as of this encounter Patient Instructions * Patient Instructions* Yusra Aviles, RN - 08/02/2010 5:14 PM EDT Your INR result today is: [...] visit. Pill size 2.5mg DAY Sun Thu Fri Sat mg 7.5mg 7.5mg 7.5mg 7.5mg 7.5mg 7.5mg 7.5mg Number of Pills 3 3 3 3 3 3 3 Your next INR is scheduled for: 08/16/10 documented in this encounter Progress Notes * Yusra Aviles RN - 08/02/2010 5:08 PM EDT Indication: Antiphospholipid antibody, Hx CVA, Dilated cardiomyopathy Duration of treatment: Lifelong with annual review Range: 2.0-3.5 INR : 2.2 Drawn by: Rudy Monitored by: JIE Next INR Due: 2 wks Discontinue Lovenox today (08/02/10). Per Richa Flores, pt to use Lovenox/Enoxaparin 80 mg sc tiwce daily until INR is once in Range. Call to pt's home. Message left on answering machine Warfarin dose : Increased Decreased x Maintained Comment Patient not available to answer following questions: Bleeding: Epistaxis Black tarry stools [...] Visit [facility] [place] [address] documented as of this encounter Procedures Procedure Name Priority Date/Time Associated Diagnosis Comments PROTHROMBIN TIME Routine 08/02/2010 documented in this encounter Results * (ABNORMAL) Prothrombin Time (08/02/2010) INR 2.2(A) 0.9 - 1.1 EXTERNAL LAB Comment:[facility] Blood specimen (specimen) Historical Provider HEMATOLOGY [facility] EXTER[facility] documented in this encounter Visit Diagnoses Not on filedocumented in this encounter Care Teams Printed Circuit Board Assembly Repairer Relationship Specialty Start Date End Date Nohelia Puentes MD [facility] GENERAL [place] [address] PCP - General 02/26/10 08/06/10 documented as of this encounter
--- OUTSIDE RECORDS SUMMARY | 2023-11-04 15:23 | XMS_ITS | Encounter Summary ---
[place] [address] Care Team Providers Care Subgrade Roller Operator Name Role Phone Shasta Dixon MD Primary Care Provider +1- [phone] Reason for Visit * Reason Onset Date Comments Anticoagulation 07/31/2010 INR Encounter Details Date Type Department Care Team (Late st Contact Info) Description 07/31/2010 Telephone [place] [phone] Nohelia Puentes MD [facility] GENERAL INTERNAL MEDICINE [place], [place] [phone] Anticoagulation (INR) Social History Tobacco Use Types Packs/Day Years Used Date Smoking Tobacco: Never Assessed Sex and Gender Information Value Date Recorded Sex Assigned at Female 05/01/2021 10:41 AM EST Gender Identity Female 05/01/2021 10:41 AM EST Sexual Orientation Straight 05/01/2021 10 :41 AM EST documented as of this encounter Miscellaneous Notes * Telephone Encounter - Kalli Lino - 07/31/2010 2:10 PM EDT INR 1.42 [facility] Hosp lab documented in this encounter Plan of Treatment Upcoming Encounters Date Type Department Care Team (Late st Contact Info) Description 11/11/2023 3:00 AM EDT Anti-Coag Telephone Visit [facility] Centralized Anticoagulation [facility] [place] [address] documented as of this encounter Visit Diagnoses Not on filedocumented in this encounter Care Teams Subgrade Roller Operator Relationship Specialty Start Date End Date Shasta Dixon MD [facility] [address] [place] [address] PCP - General 08/07/10 01/18/12 documented as of this encounter
--- OUTSIDE RECORDS SUMMARY | 2023-11-04 15:23 | XMS_ITS | Encounter Summary ---
[place] [address] Care Team Providers Care Recovery Auditor Name Role Phone Nohelia Puentes MD Primary Care Provider +1- [phone] Encounter Details Date Type Department Care Team (Late st Contact Info) Description 06/05/2010 2:15 PM EST [place] [address] Shanelle Lozada MD [address] [place] [address] [place] [address] Discharge Disposition: Home Social History Tobacco Use [...] 11/11/2023 3:00 AM EDT [place] [address] documented as of this encounter Visit Diagnoses Not on filedocumented in this encounter Care Teams Recovery Auditor Relationship Specialty Start Date End Date Nohelia Puentes MD [facility] GENERAL [place] [address] PCP - General 02/26/10 08/06/10 documented as of this encounter
--- OUTSIDE RECORDS SUMMARY | 2023-11-04 15:23 | XMS_ITS | Encounter Summary ---
[place] [address] Care Team Providers Care Licensed Massage Therapist Name Role Phone Nohelia Puentes MD Primary Care Provider +1- [phone] Encounter Details Date Type Department Care Team (Late st Contact Info) Description 03/05/2010 11:20 AM EST Office [place] [address] Nohelia Puentes MD [facility] GENERAL INTERNAL MEDICINE [place], [place] [phone] Discharge Disposition: Home Social History Tobacco Use [...] 11/11/2023 3:00 AM EDT [place] [address] documented as of this encounter Visit Diagnoses Not on filedocumented in this encounter Care Teams Licensed Massage Therapist Relationship Specialty Start Date End Date Nohelia uPentes MD [facility] GENERAL [place] [address] PCP - General 02/26/10 08/06/10 documented as of this encounter
--- OUTSIDE RECORDS SUMMARY | 2023-11-04 15:23 | XMS_ITS | Encounter Summary ---
[place] [address] Care Team Providers Care Software Developer Consultant Name Role Phone Nohelia Puentes MD Primary Care Provider +1- [phone] Encounter Details Date Type Department Care Team (Late st Contact Info) Description 02/05/2010 [place] [address] Nohelia Puentes MD [facility] GENERAL [place] [address] Social History Tobacco Use Types Packs/Day Years [...] Telephone Visit [facility] [place] [address] documented as of this encounter Procedures Procedure Name Priority Date/Time Associated Diagnosis Comments POINT OF CARE INR OUTSIDE Routine 02/05/2010 2:18 PM EDT documented in this encounter Results * POINT OF CARE INR OUTSIDE (02/05/2010 2:18 PM EDT) POC INR Outside 2.3 CERNER MILLENNIUM Comment: Reference range for INR is 2.5 - 3.5 for patients with mechanical heart valves, 2.0 - 3.0 for all others. POC INR O Loc POC [facility] CERN ER MILLENNIUM Blood specimen (specimen) 02/05/2010 2:18 PM EDT 02/07/2010 9:16 AM EDT Nohelia Puentes MD POINT OF CARE TEST ORDERABLES YVETTE VARELA documented in this encounter Visit Diagnoses Not on filedocumented in this encounter Care Teams Software Developer Consultant Relationship Specialty Start Date End Date Nohelia Puentes MD [facility] GENERAL INTERNAL MEDICINE [place], [place] [id number] PCP - General 02/26/10 08/06/10 documented as of this encounter
--- OUTSIDE RECORDS SUMMARY | 2023-11-04 15:23 | XMS_ITS | Encounter Summary ---
[place] [address] Care Team Providers Care Nuclear Radiologist Name Role Phone Shasta Dixon MD Primary Care Provider [phone]- [phone] Encounter Details Date Type Department Care Team (Late st Contact Info) Description 08/15/2010 Anti-Coag Telephone [place] [address] Nancy Chowdhury, RN Social History Tobacco Use Types Packs/Day Years Used Date Smoking Tobacco: Never Assessed Sex and Gender Information Value Date Recorded Sex Assigned at Female 05/01/2021 10:41 AM EST Gender Identity Female 05/01/2021 10:41 AM EST Sexual Orientation Straight 05/01/2021 10 :41 AM EST documented as of this encounter Patient Instructions * Patient Instructions* Nancy Chowdhury, RN - 08/15/2010 11:10 AM EDT Your INR result today is: 1.63 Please take your Warfarin, (Coumadin ??), dose [...] size 2.5mg DAY Sun Thu Sat mg 7.5mg 7.5mg 7.5mg 7.5mg 7.5mg 7.5mg 7.5mg Number of Pills 3 3 3 3 4 3 3 Your next INR is scheduled for: 08/19 documented in this encounter Progress Notes * Nancy Chowdhury RN - 08/15/2010 11:09 AM EDT Indication: Antiphospholipid antibody, Hx CVA, Dilated cardiomyopathy Duration of treatment: Lifelong with annual review Range: 2.0-3.5 INR : 1.63 yesterday Drawn by: Rudy Monitored by: JIE Next INR Due:August 19 Warfarin dose : x Increased Decreased Maintained Comment Patient not available to answer [...] Telephone Visit [facility] Centralized [place] [address] documented as of this encounter Procedures Procedure Name Priority Date/Time Associated Diagnosis Comments PROTHROMBIN TIME Routine 08/15/2010 documented in this encounter Results * (ABNORMAL) Prothrombin Time (08/15/2010) INR 1.6(A) 0.9 - 1.1 EXTERNAL LAB Blood specimen (specimen) Nancy Chowdhury RN HEMATOLOGY ORDERABLE S EXTERNAL LAB documented in this encounter Visit Diagnoses Not on filedocumented in this encounter Care Teams Nuclear Radiologist Relationship Specialty Start Date End Date Shasta Dixon MD [facility] [address] [place] [address] PCP - General 08/07/10 01/18/12 documented as of this encounter
--- OUTSIDE RECORDS SUMMARY | 2023-11-04 15:23 | XMS_ITS | Encounter Summary ---
[place] [address] Care Team Providers Care Junior Systems Administrator Name Role Phone Briana Timmons APRN Primary Care Provider [phone] Encounter Details Date Type Department Care Team (Late st Contact Info) Description 08/10/2003 Orders Only Hematology [place] [address] Justo Silva MD [facility] DR HEMATOLOGY [place] [address] Social History Tobacco Use Types Packs/Day Years [...] Telephone Visit [facility] Centralized [place] [address] documented as of this encounter Procedures Procedure Name Priority Date/Time Associated Diagnosis Comments BONE MARROW FINAL REPORT Routine 08/11/2003 12:37 PM EDT documented in this encounter Results * Bone Marrow Final Report (08/11/2003 12:37 PM EDT) Bone Marrow Final Report [id number] ? Location: ST; 0155; B The signing pathologist has (i) examined the relevant preparation(s) for the specimen(s) and (ii) rendered or confirmed the diagnosis(es). . ?Pathology Bone Marrow Final Report Clinical Information Specimen: Bone marrow aspirate and biopsy, Left Clinical Diagnosis: 33 Year old with a long history of lupus, now on plaquenil. ??Worsening anemia and thrombocytopenia. Peripheral Smear The white count is 6,310. ??The predominating cells are neutrophils. ??Normocytic anemia is evident, (Hgb 9.1; MCV 79.2). ??Platelets appear decreased in numbers (77K). ??The peripheral blood smear reveals anemia and thrombocytopenia. Bone Marrow Aspirate The marrow tissue is adequately sampled. ??Neoplastic cells are not identified. ??The myeloid:erythroid ratio is 1:1. ??Normal numbers of megakaryocytes are present. Iron stain reveals that iron stores are present, no ringed sideroblasts are seen. Trilineage maturation with increased erythropoiesis is present. Differential Blasts 2%, Promyelocytes 5%, Myelocytes 7%, Metamyelocytes 5%, Bands/PMNs 28%, Eosinophils 2%, Basophils 0%, Erythroid Precursors 45%, Lymphs 6%, Plasma Cells 0%, Monocytes 0%. Enzyme Cytochemistry _ Bone Marrow Biopsy and/or Clot The decalcified bone marrow is of increased cellularity (70%). ??The bony trabeculae appear normal for age. ??A neoplastic infiltrate is not seen. ??The myeloid:erythroid ratio appears to be 2:1. ??Megakaryocytes appear normal in numbers. ??The iron stain reveals that iron stores are absent (decalcified sections). ?? Trilineage maturation is present. Diagnosis 1 - Lupus erythematosus on plaquenil with worsening anemia and thrombocytopenia, by history. 2 - Hypercellular marrow with trilineage maturation (see Comment). 3 - Marrow iron is present. 08/14/03 VKM 08/14/03 Verified by: ? Scotty Mckee MD ?Hematopathologi st ?(Electronic Signature) The attending pathologist whose signature appears on this report has reviewed all diagnostic slides and has edited the gross and/or microscopic portion of the report in rendering the final pathologic diagnosis. Comment The findings of peripheral cytopenias with hypercellular marrow are most consistent with autoimmune peripheral destruction, and compensatory bone marrow response. ??Drug . Comment effect would be expected to suppress marrow cellularity and responsiveness. Material has also been submitted for cytogenetic evaluation. YVETTE VARELA 08/11/2003 12:3 7 PM EDT Justo Silva MD PATHOLOGY/CYTOLOGY O RDERABLES YVETTE VARELA documented in this encounter Visit Diagnoses Not on filedocumented in this encounter Care Teams Junior Systems Administrator Relationship Specialty Start Date End Date Briana Timmons, ALUMINA REFINERY [place] [address] PCP - General Family Medicine 08/09/21 documented as of this encounter
--- OUTSIDE RECORDS SUMMARY | 2023-11-04 15:23 | XMS_ITS | Encounter Summary ---
[place] [address] Care Team Providers Care Retail Event Coordinator Name Role Phone Nohelia Zeng MD Primary Care Provider [phone]- [phone] Encounter Details Date Type Department Care Team (Late st Contact Info) Description 03/05/2010 [place] [phone] Nohelia Zeng MD [facility] [place] [address] Social History Tobacco Use Types Packs/Day Years [...] Visit [facility] Centralized [place] [address] documented as of this encounter Procedures Procedure Name Priority Date/Time Associated Diagnosis Comments LEASING COORDINATOR CYTOLOGY FINAL REPORT Routine 03/05/2010 4:57 PM EST PROTHROMBIN TIME Routine 03/05/2010 10:0 1 AM EST documented in this encounter Results * PATHOLOGY LEASING COORDINATOR CYTOLOGY FINAL REPORT (03/05/2010 4:57 PM EST) Motorcycle Designer Cytology Final Report ? [facility] ? Provider: ?? NOHELIA ZENG Pt. Name: ?? SEBASTIÁNNOAH CHOI ? Acc #: ?[id number] ?Pt. ? Col Date: ?? 03/05/2010 ?/Sex: ?1970,(40 years),Female ? Rec Date: ?? 03/05/2010 ?LOC: ?3M ? CYTOPATHOLOGY: ??LEASING COORDINATOR ? ---Adequacy--- ? Specimen submitted is satisfactory. ? Endocervical component present. ? ---Cytopathologic Diagnosis--- ?NORMAL ? Negative for Intraepithelial Lesion or Malignancy (NILM). ? 03/11/10 ?? Screened by: ??SLA ? 03/11/10 ?? Verified by: ??JOEY Sanchez(ASCP), Melissa Paula - ? Strip Presser ? ---Comment--- ? Predominance of coccobacilli consistent [...] ??For further ? information please contact the [facility]. ? Reference: ??Mago CS. ??Web Analyst of Pap Smear Results. ??In: ? Jose Maria BS, Elie HH, ed. ??The Pap Smear. ??[place]: ??Conrad, 2002: ? 71-77. CERNER MILLENNIUM 03/05/2010 4:57 PM EST Nohelia Zeng MD PATHOLOGY/CYTOLOGY ORDERABLES Performing Organization Address City/[facility]/ZIP Co de Phone Number YVETTE [employer]EL * (ABNORMAL) PROTIME-INR (03/05/2010 10:01 AM EST) PT 22.1(H) 12.3 - 14.7 sec CERNER MILLENNIUM Comment: [facility] Transfusion Committee Guidelines: INR less than 2.0, PTT less than OR equal to 43.5 seconds, or Fibrinogen greater than or equal to 100 mg/dl indicate adequate procoagulant activity for hemostasis in patients without underlying bleeding disorders. INR 1.9(H) 0.9 - 1.1 CERMOOSE [employer] NetworksENNIUM Blood specimen (specimen) 03/05/2010 10:01 AM EST 03/05/2010 10:20 AM EST Nohelia Zeng MD HEMATOLOGY ORDERAB LES Performing Organization Address City/State/[facility] Co de Phone Number YVETTE VARELA documented in this encounter Visit Diagnoses Not on filedocumented in this encounter Care Teams Retail Event Coordinator Relationship Specialty Start Date End Date Nohelia Zeng MD [facility] GENERAL INTERNAL MEDICINE [place] [id number] PCP - General 11/23/10 5/3/11 documented as of this encounter
--- OUTSIDE RECORDS SUMMARY | 2023-11-04 15:23 | XMS_ITS | Encounter Summary ---
[place] [address] Care Team Providers Care Instrument Repairer Name Role Phone Briana Timmons APRN Primary Care Provider Encounter Details Date Type Department Care Team (Late st Contact Info) Description 06/23/2004 Orders [place] [phone] Gary Duff MD [facility] [place] [address] Social History Tobacco Use Types Packs/Day Years [...] Telephone Visit [facility] [place] [address] documented as of this encounter Procedures Procedure Name Priority Date/Time Associated Diagnosis Comments NON-STORAGE SOLUTIONS ARCHITECT FINAL REPORT Routine 06/24/2004 5:48 PM EST documented in this encounter Results * Non-Busser Final Report (06/24/2004 5:48 PM EST) Non-Busser Final Report [id number] ? Location: 1EST; 0132; A The signing pathologist has (i) examined the relevant preparation(s) for the specimen(s) and (ii) rendered or confirmed the diagnosis(es). . ? Pathology Non-Busser Cytology Final Report Clinical Information Specimen Source: ?Bronchial Washing, Right Clinical History/Impress ion: ?? SLE; alveolar hemorrhage Gross Description: ?? Rec'd ??fresh, approx. 5 ml. total volume of ?? cloudy, pink fluid. ?Total Prep - LBP 1. Interpretation Specimen submitted is satisfactory. Diagnosis Negative for Malignancy 06/27/04 ?Screened by: ? PF ?Rescreened by: ?? FAUSTINO HEIN 06/27/04 ?Verified by: ? Mendel Marc MD ? Pathologist ? (Electronic Signature) Comment Bronchial cells, pulmonary macrophages, squamous cells, and wbcs present. CERNER MILLENNIUM 06/24/2004 5:48 PM EST Gary Duff MD PATHOLOGY/CYTOLOGY O RDERABLES YVETTE VARELA documented in this encounter Visit Diagnoses Not on filedocumented in this encounter Care Teams Instrument Repairer Relationship Specialty Start Date End Date Briana Timmons, TUBE FITTER [address] [place] [address] PCP - General Family Medicine 08/09/21 documented as of this encounter
--- OUTSIDE RECORDS SUMMARY | 2023-11-04 15:23 | XMS_ITS | Encounter Summary ---
[place] [address] Care Team Providers Care Barytes Grinder Name Role Phone Nohelia Puentes MD Primary Care Provider [phone]- [phone] Encounter Details Date Type Department Care Team (Late st Contact Info) Description 04/25/2010 Orders [place] [address] Nohelia Puentes MD [facility] GENERAL [place] [address] Social History Tobacco Use Types Packs/Day Years [...] Telephone Visit [facility] [place] [address] documented as of this encounter Procedures Procedure Name Priority Date/Time Associated Diagnosis Comments POINT OF CARE INR OUTSIDE Routine 04/25/2010 2:47 PM EST documented in this encounter Results * POINT OF CARE INR OUTSIDE (04/25/2010 2:47 PM EST) POC INR Outside 2.8 CERNER MILLENNIUM Comment: Reference range for INR is 2.5 - 3.5 for patients with mechanical heart valves, 2.0 - 3.0 for all others. POC INR O Loc POC Cottage CERN ER MILLENNIUM Blood specimen (specimen) 04/25/2010 2:47 PM EST 05/02/2010 6:07 PM EST Nohelia Puentes MD POINT OF CARE TEST ORDERABLES YVTETE VARELA documented in this encounter Visit Diagnoses Not on filedocumented in this encounter Care Teams Barytes Grinder Relationship Specialty Start Date End Date Nohelia Puentes MD [facility] [address] [place] [address] PCP - General 02/26/10 08/06/10 documented as of this encounter
--- OUTSIDE RECORDS SUMMARY | 2023-11-04 15:23 | XMS_ITS | Encounter Summary ---
[place] [address] Care Team Providers Care Superintendent Menagerie Name Role Phone Nohelia Puentes MD Primary Care Provider +1- [phone] Encounter Details Date Type Department Care Team (Late st Contact Info) Description 01/08/2010 [place] [phone] Nohelia Puentes MD [facility] GENERAL [place] [address] Social History Tobacco Use Types Packs/Day Years [...] Anti-Coag Telephone Visit [facility] Centralized [place] [address] documented as of this encounter Procedures Procedure Name Priority Date/Time Associated Diagnosis Comments POINT OF CARE INR OUTSIDE Routine 01/08/2010 1:18 PM EDT documented in this encounter Results * POINT OF CARE INR OUTSIDE (01/08/2010 1:18 PM EDT) POC INR Outside 3.4 CERNER MILLENNIUM Comment: Reference range for INR is 2.5 - 3.5 for patients with mechanical heart valves, 2.0 - 3.0 for all others. POC INR O Loc POC Cottage CERN ER MILLENNIUM Blood specimen (specimen) 01/08/2010 1:18 PM EDT 01/08/2010 4:32 PM EDT Nohelia Puentes MD POINT OF CARE TEST ORDERABLES YVETTE VARELA documented in this encounter Visit Diagnoses Not on filedocumented in this encounter Care Teams Superintendent Menagerie Relationship Specialty Start Date End Date Nohelia Puentes MD [facility] GENERAL INTERNAL MEDICINE [place], [place] [phone] PCP - General 02/26/10 08/06/10 documented as of this encounter
--- OUTSIDE RECORDS SUMMARY | 2023-11-04 15:23 | XMS_ITS | Encounter Summary ---
[place] [address] Care Team Providers Care Refrigeration Lead Name Role Phone Nohelia Puentes MD Primary Care Provider +1- [phone] Encounter Details Date Type Department Care Team (Late st Contact Info) Description 05/20/2010 Orders [place] [phone] Nohelia Puentes MD [facility] GENER[place] [address] Social History Tobacco Use Types Packs/Day Years [...] Telephone Visit [facility] [place] [address] documented as of this encounter Procedures Procedure Name Priority Date/Time Associated Diagnosis Comments POINT OF CARE INR OUTSIDE Routine 06/03/2010 1:41 PM EST POINT OF CARE INR OUTSIDE Routine 05/20/2010 1:48 PM EST documented in this encounter Results * POINT OF CARE INR OUTSIDE (06/03/2010 1:41 PM EST) POC INR Outside 2.8 CERNER MILLENNIUM Comment: Reference range for INR is 2.5 - 3.5 for patients with mechanical heart valves, 2.0 - 3.0 for all others. POC INR O Loc POC Cottage CERN ER MILLENNIUM Blood specimen (specimen) 06/03/2010 1:41 PM EST 06/03/2010 5:46 PM EST Nohelia Puentes MD POINT OF CARE TEST ORDERABLES Performing Organization Address City/State/[facility] Co de Phone Number [facility] * POINT OF CARE INR OUTSIDE (05/20/2010 1:48 PM EST) POC INR Outside 3.7 CERNER MILLENNIUM Comment: Reference range for INR is 2.5 - 3.5 for patients with mechanical heart valves, 2.0 - 3.0 for all others. POC INR O Loc POC Cottage CERN ER MILLENNIUM Blood specimen (specimen) 05/20/2010 1:48 PM EST 05/24/2010 3:17 PM EST Nohelia Puentes MD POINT OF CARE TEST ORDERABLES [facility] documented in this encounter Visit Diagnoses Not on filedocumented in this encounter Care Teams Refrigeration Lead Relationship Specialty Start Date End Date Nohelia Puentes MD [facility] GENERAL INTERNAL MEDICINE [place], [place] [phone] PCP - General 02/26/10 08/06/10 documented as of this encounter
--- OUTSIDE RECORDS SUMMARY | 2023-11-04 15:23 | XMS_ITS | Encounter Summary ---
[place] [address] Care Team Providers Care Hand Stamper Name Role Phone Nohelia Puentes MD Primary Care Provider +1- [phone] Reason for Visit * Reason Onset Date Comments Anticoagulation 08/02/2010 INR Encounter Details Date Type Department Care Team (Late st Contact Info) Description 08/02/2010 Telephone [place] [address] Nohelia Puentes MD [facility] GENERAL INTERNAL MEDICINE [place], [place] [id number] Anticoagulation (INR) Social History Tobacco Use Types Packs/Day Years Used Date Smoking Tobacco: Never Assessed Sex and Gender Information Value Date Recorded Sex Assigned at Female 05/01/2021 10:41 AM EST Gender Identity Female 05/01/2021 10:41 AM EST Sexual Orientation Straight 05/01/2021 10 :41 AM EST documented as of this encounter Miscellaneous Notes * Telephone Encounter - Estelle Clarke - 08/02/2010 3:28 PM EDT INR 2.20 Cottage Lab documented in this encounter Plan of Treatment Upcoming Encounters Date Type Department Care Team (Late st Contact Info) Description 11/11/2023 3:00 AM EDT Anti-Coag Telephone Visit [facility] [place] [address] documented as of this encounter Visit Diagnoses Not on filedocumented in this encounter Care Teams Hand Stamper Relationship Specialty Start Date End Date Nohelia Puentes MD [facility] [place] [address] PCP - General 02/26/10 08/06/10 documented as of this encounter
--- OUTSIDE RECORDS SUMMARY | 2023-11-04 15:23 | XMS_ITS | Encounter Summary ---
[place] [address] Care Team Providers Care Operations And Maintenance Technician Name Role Phone Briana Timmons APRN Primary Care Provider [phone] Encounter Details Date Type Department Care Team (Late st Contact Info) Description 07/24/2004 Orders Only Cardiology at [address] [phone] Devon Renner MD [facility] [place] [address] Social History Tobacco Use Types Packs/Day Years [...] Anti-Coag Telephone Visit [facility] [place] [address] documented as of this encounter Procedures Procedure Name Priority Date/Time Associated Diagnosis Comments SURGICAL PATHOLOGY REPORT Routine 07/25/2004 2:06 PM EDT documented in this encounter Results * Surgical Pathology Report (07/25/2004 2:06 PM EDT) Surgical Pathology Report [id number] ? Location: [facility]; [facility]; The signing pathologist has (i) examined the relevant preparation(s) for the specimen(s) and (ii) rendered or confirmed the diagnosis(es). . ?Pathology Surgical Pathology Final Report Clinical Information Specimen Submitted: A - Endomyocardial Bx B - EM Clinical History: CHF cardiomyopathy Gross Description A - Labeled/Fixative: Labeled with the patient's name, formalin. Qty/Size/Weight: ?Two, ranging from 0.2 cm to 0.4 cm in greatest ?dimension. Tissue Description: ?? Yellow-brown and sánchez-red tissue. Sections/Processin g: ??(T1) B - Labeled/Fixative: Labeled with the patient's name, glutaraldehyde. Qty/Size/Weight: ?Three, ranging from 0.2 cm to 0.4 cm in greatest ?dimension. Tissue Description: ?? Red-sánchez tissue. Sections/Processin g: ??Submitted for electron microscopy. ??aje/EJR Microscopic Description Slides reviewed, microscopic description not recorded. Electron Microscopy Interpretation B - Plastic sections resemble the LM tissue. No scar or inflammation is identified. Myocardium, interstium and capillary vasculature have a normal ultrastructural appearance. Diagnosis A & B - Biopsy of myocardium ?Normal myocardium by light and electron microscopic analyses CR-0 03/17/05 VAM 03/17/05 Verified by: ? Jay Rdz MD ?Pathologist ?(Electronic Signature) The attending pathologist whose signature appears on this report has reviewed all diagnostic slides and has edited the gross and/or microscopic portion of the report in rendering the final pathologic diagnosis. [facility] 07/25/2004 2:06 PM EDT Devon Renner MD PATHOLOGY/CYTOLOGY O KIMBERLY Performing Organization Address City/State/[facility] Co de Phone Number [facility] documented in this encounter Visit Diagnoses Not on filedocumented in this encounter Care Teams Operations And Maintenance Technician Relationship Specialty Start Date End Date Briana Timmons, AUDIT TECH Aniya [facility] [place] [address] PCP - General Family Medicine 08/09/21 documented as of this encounter
--- OUTSIDE RECORDS SUMMARY | 2023-11-04 15:23 | XMS_ITS | Encounter Summary ---
[place] [address] Care Team Providers Care Trumpet Player Name Role Phone Nohelia Puentes MD Primary Care Provider [phone]- [phone] Encounter Details Date Type Department Care Team (Late st Contact Info) Description 04/08/2010 [place] [phone] Nohelia Puentes MD [facility] GENERAL [place] [address] Social History Tobacco Use Types Packs/Day Years [...] Telephone Visit [facility] [place] [address] documented as of this encounter Procedures Procedure Name Priority Date/Time Associated Diagnosis Comments POINT OF CARE INR OUTSIDE Routine 04/08/2010 1:58 PM EST documented in this encounter Results * POINT OF CARE INR OUTSIDE (04/08/2010 1:58 PM EST) POC INR Outside 3.4 CERN ER MILLENNIUM Comment: Reference range for INR is 2.5 - 3.5 for patients with mechanical heart valves, 2.0 - 3.0 for all others. POC INR O Loc POC Other CERNER MILLENNIUM Blood specimen (specimen) 04/08/2010 1:58 PM EST 04/09/2010 2:56 PM EST Nohelia Puentes MD POINT OF CARE TEST ORDERABLES YVETTE VARELA documented in this encounter Visit Diagnoses Not on filedocumented in this encounter Care Teams Trumpet Player Relationship Specialty Start Date End Date Nohelia Puentes MD [facility] [address] [place] [address] PCP - General 02/26/10 08/06/10 documented as of this encounter
--- OUTSIDE RECORDS SUMMARY | 2023-11-04 15:23 | XMS_ITS | Encounter Summary ---
[place] [address] Care Team Providers Care Post Anesthesia Care Unit Nurse Name Role Phone Nohelia Puentes MD Primary Care Provider [phone]- [phone] Reason for Visit * Reason Onset Date Comments Medication Refill 08/02/2010 Encounter Details Date Type Department Care Team (Late st Contact Info) Description 08/02/2010 Refill [place] [address] Shanelle Lozada MD [address] [place] [address] [place] [address] Lupus Social History Tobacco Use Types Packs/Day [...] Visit [facility] [place] [address] documented as of this encounter Visit Diagnoses Diagnosis Lupus Systemic lupus erythematosus documented in this encounter Care Teams Post Anesthesia Care Unit Nurse Relationship Specialty Start Date End Date Nohelia Puentes MD [facility] [place] [address] PCP - General 02/26/10 08/06/10 documented as of this encounter
[2023-11-04 19:59] LABS: FREE T4 1.38 ng/dL (0.76-1.46); TSH < 0.01 uIU/Ml (0.36-3.74)
== END 2023-11-04 15:05 | disposition home or self-care (01) ==
LOC: NCHCN 15:04
PROVIDERS: PCP Nurse Practitioner Family; Visit Provider Nurse Practitioner Family
DX: E03.9 Hypothyroidism, unspecified (principal)
CPT/HCPCS: 84439; 84443

== ENCOUNTER 2023-12-24 13:36 | Outpatient (REF) | payer OTHER, SELFPAY ==
--- NOTE | 2023-12-24 13:00 | PAPFT_PTH ---
PATIENT: Cecilia Dumont LOC: [facility] U#:[id number] AGE/SX: 53/F ROOM: RE12/24/[address]: Cynthia Churchill DO : 1970 BED: DIS: 12/24/2023 SPEC #: [id number] RECD: 12/24/23 17:37 STATUS: ANAND REQ #: [id number] CORBY: 12/24/23 13:[address]: Cynthia Churchill DEPT: [facility] Cytology RECD BY: Yusra Aguilera ENTERED: 12/24/23 17:37 SP TYPE: PAPFT OT DR: AMTTEO WASHINGTON NP Tissues: 1 - CX/ENDOCX FOR PAP SMEARS Procedures: PAP THIN PREP/UVM Screening HPV DNA PROBE Comments: [id number] (HPV 16 & 18/45)
== END 2023-12-24 13:37 | disposition home or self-care (01) ==
LOC: LBN 13:36
PROVIDERS: PCP Nurse Practitioner Family; Visit Provider Obstetrics & Gynecology
DX: Z12.4 Encounter for screening for malignant neoplasm of cervix (principal); Z86.19 Personal history of other infectious and parasitic diseases; Z12.39 Encounter for other screening for malignant neoplasm of breast; B97.7 Papillomavirus as the cause of diseases classified elsewhere
CPT/HCPCS: 88142; 87624

== ENCOUNTER 2024-01-05 01:53 | Outpatient (CLI) | payer OTHER, SELFPAY ==
--- NOTE | 2024-01-05 07:45 | DI.MAMMO_ITS ---
Exam(s) MAMMO SCREENING EXAM: MAMMO SCREENING CLINICAL HISTORY: screening,z12.39 TECHNIQUE: Mammograms were interpreted according to the usual protocol including computer analysis w [employer] CAD system, tomosynthesis and C-view imaging. COMPARISON: 2017 through 2022 FINDINGS: The breasts are composed of scattered fibroglandular densities, Breast Density category B. No suspicious masses or suspicious microcalcifications are seen. Stable small circumscribed nodules bilaterally. No skin thickening or abnormal axillary lymph nodes are seen. There has been no significant change from prior exams. IMPRESSION: BI-RADS Category 2 - Benign Findings Yearly screening mammography is recommended. Breast Density - Category B, scattered fibroglandular densities. A negative radiographic report should not delay biopsy if a dominant or clinically suspicious mass is present. Up to ten percent of cancers are not identified on mammography. A negative report may reinforce clinical impression. Adenosis and dense breasts may obscure an underlying neoplasm. False positive reports average 6 to 10%. Patient will receive a letter notifying them of these results.
== END 2024-01-05 02:13 ==
LOC: DI 01:53
PROVIDERS: PCP Nurse Practitioner Family; Visit Provider Obstetrics & Gynecology
DX: Z12.31 Encounter for screening mammogram for malignant neoplasm of breast (principal)
CPT/HCPCS: 77063; 77067

== ENCOUNTER 2024-01-21 12:37 | Outpatient (CLI) | payer OTHER, SELFPAY ==
--- NOTE | 2024-01-21 12:45 | RT.EKG_ITS ---
APPROVED REPORT Exam: Resting ECG Reason for Exam: AVR Patient Location: O HR:74 bpm ECG Measurements Heart Rate 74 AXIS WI 176 P 1 QRSd 111 QRS -27 QT 384 T 78 QTc 426 Conclusion Sinus rhythm...normal P axis, V-rate 50- 99 Probable left atrial enlargement...P >50mS, <-0.10mV V1 LVH with IVCD and secondary repol abnrm...multi-criteria, wQRSd, abnr ST-T
== END 2024-01-21 12:38 | disposition home or self-care (01) ==
LOC: DI.CARD 13:00
PROVIDERS: PCP Nurse Practitioner Family; Referring Provider Nurse Practitioner Family; Visit Provider Internal Medicine Cardiovascular Disease
DX: Z95.2 Presence of prosthetic heart valve (principal); Z86.79 Personal history of other diseases of the circulatory system
CPT/HCPCS: 93010

== ENCOUNTER → 2024-01-21 12:37 | Outpatient (BNVA) | payer OTHER, SELFPAY | PROVIDERS: PCP Nurse Practitioner Family; Referring Provider Nurse Practitioner Family; Visit Provider Internal Medicine Cardiovascular Disease | DX: Z95.2 Presence of prosthetic heart valve (principal); R53.83 Other fatigue; Z79.01 Long term (current) use of anticoagulants; Z86.79 Personal history of other diseases of the circulatory system; E03.9 Hypothyroidism, unspecified | CPT/HCPCS: 93005; 99213 ==

== ENCOUNTER 2024-02-02 12:44 | Outpatient (REF) | payer OTHER, SELFPAY ==
--- NOTE | 2024-02-02 09:30 | ENDO_PTH ---
PATIENT: Cecilia Dumont LOC: [facility] U#:[id number] AGE/SX: 54/F ROOM: RE02/02/[address]: Cynthia Churchill DO : 1970 BED: DIS: 02/02/2024 SPEC #: [id number] RECD: 02/02/24 12:53 STATUS: ANAND REQ #: [id number] CORBY: 02/02/24 09:[address]: Cynthia Churchill DEPT: Surgical Specimen RECD BY: Yusra Aguilera ENTERED: 02/02/24 12:55 SP TYPE: Endo OTHR DR: MATTEO WASHINGTON NP Tissues: 1 - ENDOCERVICAL BX/CURRETTE 2 - CERVICAL BIOPSY Procedures: GROSS AND MICRO LEVEL 4 Comments: [id number]
== END 2024-02-02 12:45 | disposition home or self-care (01) ==
LOC: LBN 12:44
PROVIDERS: PCP Nurse Practitioner Family; Visit Provider Obstetrics & Gynecology
DX: Z12.4 Encounter for screening for malignant neoplasm of cervix (principal); R87.613 High grade squamous intraepithelial lesion on cytologic smear of cervix (HGSIL)
CPT/HCPCS: 88305

== ENCOUNTER 2024-05-09 18:05 | Outpatient (REF) | payer MEDICARE, SELFPAY ==
[2024-05-09 19:10] LABS: Abs Immature Grans 0.03 10^3/uL (0.0-0.06); Absolute Basophil Count 0.06 10^3/uL (0.0-0.2); Absolute Lymphocyte Count 1.53 10^3/uL (1.2-3.4); Absolute Monocyte Count 0.59 10^3/uL (0.1-0.8); Absolute Neutrophil Count 2.94 10^3/uL (1.2-6.7); Basophils % 1.1 %; Eosinophils % 3.7 %; HCT 36.5 % (36.0-46.0); HGB 13.1 g/dL (11.2-15.7); Immature Grans % 0.6 %; Lymphocytes % 28.6 %; MCH 34.3 pg (27.0-33.0); MCHC 35.9 % (32.0-36.0); MCV 96 fL (80-95); MPV 10.8 fL (8.0-11.0); Platelet Count 286 10^3/uL (130-400); RBC 3.82 10^6/uL (3.93-5.22); RDW 13.4 % (11.7-14.6); RDW-SD 46.2 fL; WBC 5.35 10^3/uL (4.4-10.8)
[2024-05-09 19:30] LABS: ALT 22 U/L (14-59); AST 23 U/L (15-37); Albumin 3.4 g/dL (3.4-5.0); Alkaline Phosphatase 149 U/L (46-116); Anion Gap 4.1 mmol/L (3-11); BUN 11 mg/dL (7-18); CO2 32.9 mmol/L (21.0-32.0); CREATININE 0.8 mg/dL (0.55-1.02); Calculated LDL 99 mg/dL (<100); Chloride 109 mmol/L (98-107); Cholesterol 182 mg/dL (<200); Glucose 98 mg/dL (74-106); HDL Cholesterol 50 mg/dL (40-60); Sodium 146 mmol/L (136-145); Total Protein 6.7 g/dL (6.4-8.2); Triglyceride 168 mg/dL (<150)
[2024-05-09 19:34] LABS: TSH < 0.01 uIU/mL (0.36-3.74)
[2024-05-09 19:50] LABS: FREE T4 1.55 ng/dL (0.76-1.46)
== END 2024-05-09 18:06 | disposition home or self-care (01) ==
LOC: NCHCN 18:05
PROVIDERS: PCP Nurse Practitioner Family; Visit Provider Nurse Practitioner Family
DX: E03.9 Hypothyroidism, unspecified (principal); M32.9 Systemic lupus erythematosus, unspecified
CPT/HCPCS: 80053; 80061; 84439; 84443; 85025

== ENCOUNTER 2024-11-08 02:34 | Outpatient (CLI) | payer MEDICARE, MEDICAID, SELFPAY ==
--- NOTE | 2024-11-08 10:01 | DI.RAD_ITS ---
Exam(s) XR KNEE RT 3V AP,LAT,HUMBERTO EXAM: XR KNEE RT 3V AP,LAT,HUMBERTO CLINICAL HISTORY: RT KNEE PAIN,M25.561. TECHNIQUE: 2D digital imaging was performed. Four images were obtained. AP, lateral and PA tunnel views were obtained. COMPARISON: CR XR KNEE RT 3V AP,LAT,HUMBERTO from 01/06/2022 FINDINGS: BONES: There are stable post operative changes of a right total knee arthroplasty present. No fracture or dislocation. JOINTS: The orthopedic hardware is in good position. No evidence of hardware loosening. SOFT TISSUE: Normal. IMPRESSION: Stable right total knee arthroplasty. DATA REPOSITORY: RADIATION DOSE DELIVERED:
== END 2024-11-08 02:54 ==
PROVIDERS: PCP Nurse Practitioner Family; Visit Provider Nurse Practitioner Family
DX: M25.561 Pain in right knee (principal)
CPT/HCPCS: 73562

== ENCOUNTER 2024-12-27 13:17 | Outpatient (REF) | payer MEDICARE, MEDICAID, SELFPAY ==
--- NOTE | 2024-12-27 13:20 | PAPFT_PTH ---
PATIENT: Cecilia Dumont LOC: [facility] U#:[id number] AGE/SX: 54/F ROOM: RE12/27/[address]: Cynthia Churchill DO : 1970 BED: DIS: 12/27/2024 SPEC #: [id number] RECD: 12/27/24 18:02 STATUS: ANAND RE #: [id number] CORBY: 12/27/24 13:[address]: Cynthia Churchill DEPT: [facility] Cytology RECD BY: Yusra Aguilera ENTERED: 12/27/24 18:02 SP TYPE: PAPFT OT DR: MATTEO WASHINGTON NP Tissues: 1 - CX/ENDOCX FOR PAP SMEARS Procedures: PAP THIN PREP/UVM Screening HPV DNA PROBE Comments: [id number] (HPV 16 & 18/45)
== END 2024-12-27 13:18 | disposition home or self-care (01) ==
LOC: LBN 13:17
PROVIDERS: PCP Nurse Practitioner Family; Visit Provider Obstetrics & Gynecology
DX: R87.610 Atypical squamous cells of undetermined significance on cytologic smear of cervix (ASC-US) (principal); Z12.4 Encounter for screening for malignant neoplasm of cervix
CPT/HCPCS: 88142; 87624

== ENCOUNTER 2025-02-02 12:58 | Outpatient (REF) | payer MEDICARE, MEDICAID, SELFPAY ==
[2025-02-02 15:28] LABS: Abs Immature Grans 0.02 10^3/uL (0.0-0.06); HCT 36.5 % (36.0-46.0); HGB 12.1 g/dL (11.2-15.7); Immature Grans % 0.4 %; MCH 32.0 pg (27.0-33.0); MCHC 33.2 % (32.0-36.0); MCV 97 fL (80-95); MPV 11.0 fL (8.0-11.0); Platelet Count 242 10^3/uL (130-400); RBC 3.78 10^6/uL (3.93-5.22); RDW 13.7 % (11.7-14.6); RDW-SD 48.5 fL; WBC 5.12 10^3/uL (4.4-10.8)
[2025-02-02 15:52] LABS: Hemoglobin A1C 5.2 % (<5.7)
[2025-02-02 16:07] LABS: ALT 23 U/L (14-59); AST 25 U/L (15-37); Albumin 3.6 g/dL (3.4-5.0); Alkaline Phosphatase 101 U/L (46-116); Anion Gap 6.3 mmol/L (3-11); BUN 20 mg/dL (7-18); Bilirubin, Total 0.4 mg/dL (0.2-1.0); CO2 31.7 mmol/L (21.0-32.0); Calcium 9.1 mg/dL (8.5-10.1); Chloride 102 mmol/L (98-107); Cholesterol 231 mg/dL (<200); Glucose 83 mg/dL (74-106); HDL Cholesterol 47 mg/dL (>or=50); Potassium 4.6 mmol/L (3.5-5.1); Sodium 140 mmol/L (136-145); TSH 0.88 uIU/mL (0.36-3.74); Total Protein 7.0 g/dL (6.4-8.2)
[2025-02-02 23:41] LABS: T3,Free 3.7 pg/mL (2.8-5.3)
== END 2025-02-02 12:59 | disposition home or self-care (01) ==
LOC: NCHCN 12:58
PROVIDERS: PCP Nurse Practitioner Family; Visit Provider Nurse Practitioner Family
DX: E78.5 Hyperlipidemia, unspecified (principal); E03.9 Hypothyroidism, unspecified; M32.9 Systemic lupus erythematosus, unspecified; Z68.33 Body mass index [BMI] 33.0-33.9, adult
CPT/HCPCS: 80053; 80061; 83036; 84439; 84443; 84481; 85025; 86376

== ENCOUNTER → 2025-02-09 02:01 | Outpatient (CLI) | payer MEDICARE, SELFPAY ==
--- NOTE | 2025-02-09 07:30 | DI.MAMMO_ITS ---
Exam(s) MAMMO SCREENING EXAM: MAMMO SCREENING CLINICAL HISTORY: screening,z12.39 TECHNIQUE: Bilateral full field digital CC and MLO mammographic images were obtained with 3D tomosynthesis and utilizing computer aided detection (CAD). COMPARISON: Comparison is made with prior examinations. FINDINGS: Masses/Architectural Distortion: No suspicious masses or areas of architectural distortion are present. Stable well-circumscribed nodules are seen in both breasts. Microcalcifications: No suspicious pleomorphic-type are seen. Skin Thickening/Nipple Retraction: None. IMPRESSION: 1. No significant interval change with no specific features of malignancy noted. 2. Unless there is more urgent need, screening mammography is recommended, as per [place] [employer] guidelines. BI-RADS Category 2 - Benign Findings Breast Density - Category B - There are scattered areas of fibroglandular density. Breast density Category C or D implies that the patient has dense breast tissue. Dense breast tissue can make it harder to find cancer on a mammogram. Dense breast tissue is also associated with an increased risk of breast cancer. This information about the result of the mammogram report was provided to the patient to raise their awareness. Use this report when you speak with the patient about their risks for breast cancer, which includes their family history. At that time, you may recommend additional screening tests (Ultrasound or MRI) as these tests may add significant information. A negative radiographic report should not delay biopsy if a dominant or clinically suspicious mass is present. Up to ten percent of cancers are not identified on mammography. A negative report may reinforce clinical impression. Adenosis and dense breasts may obscure an underlying neoplasm. False positive reports average 6 to 10%. Patient will receive a letter notifying them of these results.
== END ==
LOC: DI 02:01
PROVIDERS: PCP Nurse Practitioner Family; Visit Provider Obstetrics & Gynecology
DX: Z12.31 Encounter for screening mammogram for malignant neoplasm of breast (principal)
CPT/HCPCS: 77063; 77067

== ENCOUNTER → 2025-02-28 14:34 | Outpatient (CLI) | payer MEDICARE, SELFPAY ==
--- NOTE | 2025-02-28 07:41 | DI.US_ITS ---
APPROVED REPORT EXAM: Comprehensive 2D, Doppler, and color-flow Echocardiogram Patient Location: Out-Patient Supervisor Area: Marychuy Daley RDCS (AE) Indications: H/O mechanical aortic valve replacement Other Information Study Quality: Adequate Conclusion Normal left ventricular wall thickness and chamber size. Ejection fraction is 59%. Wall motion is normal Normal right ventricular size and function Both atria are normal in size There is a mechanical aortic valve prosthesis. There is trace paravalvular regurgitation Mild tricuspid regurgitation. Estimated right ventricular systolic pressure is 23 mmHg Mildly dilated aortic root Wall motion Left Ventricle The left ventricle is normal size. The left ventricular systolic function is normal. The left ventricular ejection fraction is within the normal range. There is normal left ventricular wall thickness. There is normal LV segmental wall motion. There is no ventricular septal defect visualized. LVEF is 59%. Right Ventricle The right ventricle is normal size. The right ventricular systolic function is normal. Atria The left atrium size is normal. The right atrium size is normal. The interatrial septum is intact with no evidence for an atrial septal defect. Aortic Valve Paravalvular leak is present. Mechanical aortic valve is present. Mitral Valve The mitral valve is normal in structure. No evidence of mitral valve stenosis. Trace mitral regurgitation. Tricuspid Valve The tricuspid valve is normal in structure. There is no tricuspid valve stenosis. Mild tricuspid regurgitation. The RVSP is 22.8 mmHg. Pulmonic Valve The pulmonary valve is normal in structure. There is no pulmonic valvular stenosis. Trace pulmonic regurgitation. Great Vessels Aortic root is mildly dilated. The ascending aorta is normal in size. Aortic arch is normal in caliber. IVC is normal in size and collapses >50% with inspiration. Pericardium There is no pericardial effusion. 2D Dimensions IVSD d PLAX 1.01 cm F: 0.6-1.0 Ao Root d 3.50 cm F: 2.7 - 3.3 LVPW d PLAX 1.00 cm F: 0.6 - 1.0 Ao Asc Diam d 2.90 cm F: 2.3 - 3.1 LVID d PLAX 4.74 cm F: 3.8 - 5.2 LVDs 3.22 cm F: 2.2 - 3.5 LV EF Teichholz 60.4 % FS 32.20 % LV EDV (Teich) 104.5 mL LV ESV (Teich) 41.4 mL M-Mode TAPSE 1.96 cm (M/F) >1.7 Auto EF LV EDV A4C 141.5 mL LV EDV A2C 164.7 mL LV EDV BP 156.1 mL LV ESV A4C 60.1 mL LV ESV A2C 68.7 mL LV ESV BP 65.8 mL LVEF(%) A4C 57.6 % LVEF(%) A2C 58.3 % LVEF(%) BP 57.8 % LV SV A4C 81.5 ml LV SV A2C 96.0 ml LV SV BP 90.3 ml LV CO A4C 4.8 L/min LV CO A2C 6.2 L/min LV CO BP 5.5 L/min HR A4C 59.41 BPM HR A2C 64.06 BPM LV EDV Index (BP) LA Volume LA Length A4C 4.8 cm LA Length A2C 4.9 cm LA Area A4C s 13.33 cm2 LA Area A2C s 20.01 cm2 LA Vol A4C A-L 31.71 mL LA Vol A2C A-L 69.02 mL LA Vol Biplane A-L 47.6 mL LA Vol/BSA A4C A-L LA Vol/BSA A2C A-L LA Vol/BSA BP A-L 25.3 mL/m2 LA Vol A4C MOD 27.8 mL LA Vol A2C MOD 64.2 mL LA Vol BP MOD 42.8 mL RA Volume RA Area A4C 14.6 cm2 RA ESV A4C (A-L) 40.7mL RA Vol/BSA A4C A-L RA Length A4C 4.4 cm RA ESV A4C (MOD) 36.9mL LV Diastology MV E' medial 0.071 (>0.07 m/s) MV E Vmax 0.79 (0.4-1.3 m/s) MV E/E' MED 11.08 (<14) MV A Vmax 0.90 (0.4-1.3 m/s) MV E' lateral 0.097 (>0.1 m/s) E/A Ratio 0.9 MV E/E' LAT 8.13 (<14) MV E' Average 0.084 m/s MV E/E'(average) 9.38 Aortic Valve AoV Vmax 1.61 m/s LVOT Vmax 1.25 m/s AoV Peak Grad 10.4 mmHg LVOT Peak Grad 6.3 mmHg AoV Area (Vmax) 2.44 cm2 LVOT VTI 0.265 m AoV VTI 0.354 m LVOT Mean Grad 3.4 mmHg AoV Mean Fuad. 1.01 m/s LVOT SV 83.22 mL AoV Mean Grad 5.0 mmHg LVOT Diam s 2.00 cm AoV Area (VTI) 2.35 cm2 AV Regurg Peak Gr. 10.39 mmHg Velocity Ratio 0.78 Mitral Valve MV DT 263 (160-240 msec) MV Vmax TIPS 0.97 m/s MV Mean Grad 1.6 (<2mmHg) MV VTI 0.448 m Pulmonary Valve PV Vmax 0.98 (0.5-1.5 m/s) RVOT Vmax 0.57 m/s PV Peak Grad 3.9 mmHg RVOT Peak Gr. 1.3 mmHg PV Mean Fuad 0.72 m/s RVOT VTI 0.133 m PV Mean Grad 2.4 mmHg RVOT Mean Gr. 0.7 mmHg Tricuspid Valve RA Pressure 3.00 mmHg TR Vmax 2.23 m/s TV S' 0.14 m/s TR Peak Grad 19.8 mmHg RVSP (TR) 22.8 mmHg
== END ==
LOC: DI 14:35
PROVIDERS: PCP Nurse Practitioner Family; Visit Provider Internal Medicine Cardiovascular Disease
DX: Z95.2 Presence of prosthetic heart valve (principal)
CPT/HCPCS: 93306

== ENCOUNTER 2025-03-09 10:23 | Outpatient (REF) | payer MEDICARE, SELFPAY ==
--- NOTE | 2025-03-09 09:40 | ENDO_PTH ---
PATIENT: Cecilia Dumont LOC: [facility] U#:[id number] AGE/SX: 55/F ROOM: RE03/09/[address]: Cynthia Churchill DO : 1970 BED: DIS: 03/09/2025 SPEC #: [id number] RECD: 03/09/25 13:01 STATUS: ANAND RE #: [id number] CORBY: 03/09/25 09:[address]: Cynthia Churchill DEPT: Surgical Specimen RECD BY: Yusra Aguilera ENTERED: 03/09/25 13:02 SP TYPE: Endo OTHR DR: MATTEO WASHINGTON NP Tissues: 1 - ENDOCERVICAL BX/CURRETTE Procedures: GROSS AND MICRO LEVEL 4 Comments: [id number]
== END 2025-03-09 10:24 | disposition home or self-care (01) ==
LOC: LBN 10:23
PROVIDERS: PCP Nurse Practitioner Family; Visit Provider Obstetrics & Gynecology
DX: D26.0 Other benign neoplasm of cervix uteri (principal)
CPT/HCPCS: 88305